=== PATIENT | male | born 1965 | race Caucasian/White ===

== ENCOUNTER → 2017-08-26 15:29 | Outpatient (CLI) | payer OTHER, SELFPAY ==
[2017-08-26 16:45] LABS: PSA,Total - Annual Screen 1.17 ng/mL (0.00-4.00)
== END ==
PROVIDERS: Family Provider Family Medicine; PCP Family Medicine; Visit Provider Urology
DX: Z12.5 Encounter for screening for malignant neoplasm of prostate (principal)
CPT/HCPCS: 36415; 84153; G0103

== ENCOUNTER 2017-10-06 14:12 | Emergency (ER) | payer OTHER, SELFPAY ==
[2017-10-06] VITALS (8 sets, daily range): BP systolic 131–157; BP diastolic 61–88; PULSE 59–76; RESP 15–21; TEMP 36.7; O2SAT 95–98; BMI 24.8
--- NOTE | 2017-10-06 14:24 | EKG12_ITS ---
Test Reason : REPEAT Blood Pressure : / mmHG Vent. Rate : 063 BPM Atrial Rate : 063 BPM P-R Int : 132 ms QRS Dur : 084 ms QT Int : 398 ms P-R-T Axes : 033 025 028 degrees QTc Int : 407 ms Normal sinus rhythm Normal ECG Confirmed by MARKEL KUHN MD ([id number]), news editor PUSHPA GONZALEZ ([id number]) on 10/09/2017 4:03:53 PM Referred By: YESSICA Confirmed By:MARKEL KUHN MD
--- NOTE | 2017-10-06 14:37 | RAD_ITS ---
STUDY: X-RAY CHEST REASON FOR EXAM: Male, 52 years old. Chest pain and pressure TECHNIQUE: PA and lateral views of the chest. COMPARISON: None. FINDINGS: The lungs are clear and expanded. There is no demonstrated pleural abnormality. Normal size heart. Normal mediastinum and gianna. Normal visualized pulmonary arteries. Normal visualized aortic arch and descending thoracic aorta. Normal visualized thoracic spine. Normal visualized ribs, clavicles, and shoulders. There is no demonstrated abnormality of the visualized soft tissue structures of the upper abdomen. RAD/Chest PA and Lateral IMPRESSION: Normal x-ray examination of the chest. Electronically Signed: Trudi Rodríguez MD at 14:59 EDT Tel , Service support ,
--- NOTE | 2017-10-06 14:42 | ED.DCSUM_ITS ---
- ER Visit Summary Date of Service: 10/06/17 Chief Complaint: [] Chest pain History of Present Illness: The patient is a 52 M [] complaining of chest pain in the midsternal area starting approximately 5 hours ago. Reports symptoms started when he was eating breakfast. Reports feeling bubble sensation in his chest. Denies shortness of breath. Denies abdominal pain. Denies nausea/ vomiting. Denies diaphoresis. Physical Examination: [] Afebrile, vital signs stable. 52-year-old male in no acute distress. Conversational. Cardiovascular exam is regular rate and rhythm. Lungs are clear to auscultation. Abdomen is soft and nontender. No lower extremity edema. Test Results: [] EKG shows normal sinus rhythm rate of 66 without ischemic changes or ectopy. CBC, BMP, troponin #1 negative. #2 negative. EKG #2 shows normal sinus rhythm, rate of 63 without ischemia or ectopy. Chest x-ray: Negative. Emergency Department Course and Treatment: [] The patient was evaluated for atypical symptoms of chest pain. Initial testing was negative. Patient reports his symptoms started 5 hours prior to arrival. He has been here now approximately 3 and half hours. His first round and second round of evaluation were negative. 2 very normal-appearing EKGs. He represents low risk. His TAHIRA score is 0. Treatment Plan: [] Patient was instructed to follow-up with his primary care physician and coordinate an outpatient stress test. Disposition: [] Discharge, stable. Impression: [] Chest pain This note was generated with [employer] dictation software. It may contain incorrect words, spelling, and punctuation that were not noted in review of the chart prior to signing ED Disposition - Plan for ED Patient: Chief Complaint: Chest Other Referrals: Fredy Beth MD [Primary Care Provider] -
[2017-10-06 14:44] LABS: Absolute Neutrophil Count 7.8 X10^3/uL (2.0-7.7); Basophil# 0.02 X10^3/uL; Basophil% 0.2 % (0-1); Eosinophil# 0.04 X10^3/uL; Eosinophils% 0.4 % (0-5); Hematocrit 42.2 % (40-54); Hemoglobin 14.1 g/dl (13.0-16.5); Lymphocyte % 12.7 % (19-41); Mean Corp Hgb Conc 33.4 g/gl (32-36); Mean Corpuscular Hgb 32.6 pg (27.0-32.0); Mean Corpuscular Volume 97.5 fL (80-94); Mean Platelet Vol. 8.8 fl (6.2-12.0); Monocyte# 0.33 X10^3/uL; Monocyte% 3.5 % (0-10); Neutrophil # 7.81 X10^3/uL (2.7-7.7); POSITIVE COUNT NO; POSITIVE DIFFERENTIAL NO; POSITIVE MORPHOLOGY NO; Platelet Count 262 K/mm3 (150-450); RBC Distribution Width CV 12.5 % (11.6-14.6); RBC Distribution Width SD 44.9 fl (35.1-43.9); Red Blood Count 4.33 M/mm3 (4.6-6.2); White Blood Count 9.4 K/mm3 (4.4-11.0)
[2017-10-06 14:52] LABS: D-Dimer Quantitative (DVT/PE) 0.35 FEU/ug/m (0.27-0.49)
[2017-10-06 15:07] LABS: Anion Gap 6 (5-15); BUN 13 mg/dL (7-18); BUN/Creat Ratio 15.3 RATIO (10-20); Calcium,Total 8.3 mg/dL (8.5-10.1); Chloride 111 mmol/L (98-107); Creatinine, Serum 0.85 mg/dL (0.70-1.30); EST Glomerular Filtration Rate 100 mL/min (>60); Est Glom Filt Rate - Afr Amer 121 mL/min (>60); Estimated Creatinine Clearance 110.31 ml/min; Glucose 150 mg/dL (74-106); Sodium Level 144 mmol/L (136-145)
[2017-10-06] MEDS: Aspirin 81 MG TAB.CHEW 324 MG PO (15:11)
--- NOTE | 2017-10-06 15:54 | EKG12_ITS ---
Test Reason : CHEST DISCOMFORT Blood Pressure : / mmHG Vent. Rate : 066 BPM Atrial Rate : 066 BPM P-R Int : 132 ms QRS Dur : 084 ms QT Int : 390 ms P-R-T Axes : 038 039 036 degrees QTc Int : 408 ms Normal sinus rhythm Normal ECG Confirmed by MARKEL KUHN MD ([id number]), editorial specialist PUSHPA GONZALEZ ([id number]) on 10/09/2017 4:03:35 PM Referred By: Confirmed By:MARKEL KUHN MD
--- NOTE | 2017-10-06 17:08 | ED.DEP ---
ED Disposition - Plan for ED Patient: Disposition: Home or Assisted Living Chief Complaint: Chest Other Instructions: ED Chest Pain Atypical Unkn Cause Referrals: Fredy Beth MD [Primary Care Provider] -
== END 2017-10-06 17:18 | disposition home or self-care (01) ==
PROVIDERS: Emergency Provider Emergency Medicine; Family Provider Family Medicine; PCP Family Medicine
DX: R07.89 Other chest pain (principal); I10 Essential (primary) hypertension; J45.909 Unspecified asthma, uncomplicated
CPT/HCPCS: 71046; 80048; 84484; 85025; 85379; 93005; 99284; A4216

== ENCOUNTER 2017-10-07 11:52 | Emergency (ER) | payer OTHER, SELFPAY ==
[2017-10-07 11:54] VITALS: BP 77/34; PULSE 105; RESP 18; TEMP 35.8; O2SAT 90; BMI 26.5
[2017-10-07 12:03] VITALS: BP 91/78; PULSE 91; RESP 23; O2SAT 100
--- NOTE | 2017-10-07 12:05 | EKG12_ITS ---
Test Reason : Blood Pressure : / mmHG Vent. Rate : 109 BPM Atrial Rate : 109 BPM P-R Int : 126 ms QRS Dur : 076 ms QT Int : 346 ms P-R-T Axes : 035 068 061 degrees QTc Int : 465 ms Sinus tachycardia Otherwise normal ECG Confirmed by BAM NAQVI, MARKEL ([id number]), editorial cartoonist PUSHPA GONZALEZ ([id number]) on 10/09/2017 3:25:16 PM Referred By: AUBREE Confirmed By:MARKEL KUHN MD
--- NOTE | 2017-10-07 12:06 | CT_ITS ---
STUDY: CTA CHEST REASON FOR EXAM: Male, 52 years old. One day history of chest pain. Dizziness and diaphoresis. RADIATION DOSAGE (If Supplied By Facility): CTDIvol = ( 15.08 ) mGy, DLP = ( 782.37 ) mGycm TECHNIQUE: The examination was performed with the intravenous administration of 100CC ml of Isovue 370 contrast material. Post-processing of the angiographic images was performed, with multiplanar reformation and 3D reconstruction. Individualized dose optimization techniques were used for this CT. COMPARISON: None. FINDINGS: Normal enhancement of the main pulmonary artery and right and left pulmonary arteries. Normal enhancement of the bilateral peripheral pulmonary arteries. There is no demonstrated pulmonary embolism. There is evidence of a localized focal dissection involving the medial aspect of the aortic arch just distal to its origin. This extends posteriorly to the level of the aortopulmonary window. The vessels arising from the aortic arch are unremarkable. There is evidence of a increased soft tissue density in the mediastinal fat surrounding the aortic arch as well as the descending thoracic aorta. Soft tissue density is also seen within the posterior mediastinum displacing the left atrium suggestive of a hematoma. Small left pleural effusion. Moderate sized hemopericardium. Normal mediastinum. Normal hilar regions. Normal visualized trachea and bronchi. There is a large right pleural effusion with increased density. This most likely represents a right sided hemopneumothorax. Atelectasis at the lung bases. Normal chest wall structures. Normal osseous structures. Retroperitoneal hematoma. IMPRESSION: Focal dissection and/or tear at the level of the aortic arch just distal to the origin of the great vessels of the neck with evidence of a hemopericardium, large right hemopneumothorax. Hematoma is seen within the mediastinum especially posteriorly causing displacement of the left atrium. Electronically Signed: Beck Nuñez MD at 13:06 EDT Tel [phone], Service support , STUDY: CTA OF THE ABDOMINAL AORTA REASON FOR EXAM: Male, 52 years old. Possible dissection. RADIATION DOSAGE (If Supplied By Facility): CTDIvol = ( 15.08 ) mGy, DLP = ( 782.37 ) mGycm TECHNIQUE: Axial CT angiography multi-detector data acquisition was obtained from the to the following intravenous administration of 100CC ml of Isovue 370 contrast. Axial images and MIP images were reconstructed from the axial data set. Post-processing of the angiographic images was performed, with multiplanar reformation and 3D reconstruction. Individualized dose optimization techniques were used for this CT. TECHNICAL QUALITY: Good COMPARISON: None. Descriptors of Narrowing: None (0%) Mild (< 50%) Moderate (50-70%) Severe (70-90%) Subtotal/Total Occlusion (90-100%) Non-Evaluable (technically non-diagnostic FINDINGS: Left pneumothorax. Pericardial effusion. Soft tissue density in the posterior mediastinum with displacement of the left atrium. Retrocrural hematoma was on the right side. Abdominal aorta: No demonstrated narrowing. No evidence of dissection. Celiac and superior mesenteric arteries: No demonstrated narrowing. Inferior mesenteric artery: No demonstrated narrowing. Right renal artery(arteries): No demonstrated narrowing. Left renal artery(arteries): No demonstrated narrowing. CT/CTA Chest W/WO Contrast IMPRESSION: No evidence of a aortic dissection.. Electronically Signed: Beck Nuñez MD at 12:53 EDT Tel [phone], Service support ,
--- NOTE | 2017-10-07 12:06 | CT_ITS ---
STUDY: CTA CHEST REASON FOR EXAM: Male, 52 years old. One day history of chest pain. Dizziness and diaphoresis. RADIATION DOSAGE (If Supplied By Facility): CTDIvol = ( 15.08 ) mGy, DLP = ( 782.37 ) mGycm TECHNIQUE: The examination was performed with the intravenous administration of 100CC ml of Isovue 370 contrast material. Post-processing of the angiographic images was performed, with multiplanar reformation and 3D reconstruction. Individualized dose optimization techniques were used for this CT. COMPARISON: None. FINDINGS: Normal enhancement of the main pulmonary artery and right and left pulmonary arteries. Normal enhancement of the bilateral peripheral pulmonary arteries. There is no demonstrated pulmonary embolism. There is evidence of a localized focal dissection involving the medial aspect of the aortic arch just distal to its origin. This extends posteriorly to the level of the aortopulmonary window. The vessels arising from the aortic arch are unremarkable. There is evidence of a increased soft tissue density in the mediastinal fat surrounding the aortic arch as well as the descending thoracic aorta. Soft tissue density is also seen within the posterior mediastinum displacing the left atrium suggestive of a hematoma. Small left pleural effusion. Moderate sized hemopericardium. Normal mediastinum. Normal hilar regions. Normal visualized trachea and bronchi. There is a large right pleural effusion with increased density. This most likely represents a right sided hemopneumothorax. Atelectasis at the lung bases. Normal chest wall structures. Normal osseous structures. Retroperitoneal hematoma. IMPRESSION: Focal dissection and/or tear at the level of the aortic arch just distal to the origin of the great vessels of the neck with evidence of a hemopericardium, large right hemopneumothorax. Hematoma is seen within the mediastinum especially posteriorly causing displacement of the left atrium. Electronically Signed: Beck Nuñez MD at 13:06 EDT Tel [phone], Service support , STUDY: CTA OF THE ABDOMINAL AORTA REASON FOR EXAM: Male, 52 years old. Possible dissection. RADIATION DOSAGE (If Supplied By Facility): CTDIvol = ( 15.08 ) mGy, DLP = ( 782.37 ) mGycm TECHNIQUE: Axial CT angiography multi-detector data acquisition was obtained from the to the following intravenous administration of 100CC ml of Isovue 370 contrast. Axial images and MIP images were reconstructed from the axial data set. Post-processing of the angiographic images was performed, with multiplanar reformation and 3D reconstruction. Individualized dose optimization techniques were used for this CT. TECHNICAL QUALITY: Good COMPARISON: None. Descriptors of Narrowing: None (0%) Mild (< 50%) Moderate (50-70%) Severe (70-90%) Subtotal/Total Occlusion (90-100%) Non-Evaluable (technically non-diagnostic FINDINGS: Left pneumothorax. Pericardial effusion. Soft tissue density in the posterior mediastinum with displacement of the left atrium. Retrocrural hematoma was on the right side. Abdominal aorta: No demonstrated narrowing. No evidence of dissection. Celiac and superior mesenteric arteries: No demonstrated narrowing. Inferior mesenteric artery: No demonstrated narrowing. Right renal artery(arteries): No demonstrated narrowing. Left renal artery(arteries): No demonstrated narrowing. CT/CTA Abdomen W/WO Contrast IMPRESSION: No evidence of a aortic dissection.. Electronically Signed: Beck Nuñez MD at 12:53 EDT Tel [phone], Service support ,
[2017-10-07] MEDS: 0.9% Normal Saline 1,000 ML 1000 ML IV (12:07)
[2017-10-07 12:10] VITALS: O2SAT 100
[2017-10-07] MEDS: Aspirin 81 MG TAB.CHEW 324 MG PO (12:25)
--- NOTE | 2017-10-07 12:25 | RAD_ITS ---
STUDY: X-RAY CHEST REASON FOR EXAM: Male, 52 years old. Chest pain. TECHNIQUE: Single AP portable view of the chest. COMPARISON: None. FINDINGS: EKG electrodes are seen. Small right pleural effusion with underlying infiltration and/or atelectasis. Increased markings at the left lung base. Normal size heart. Normal mediastinum and gianna. Normal visualized pulmonary arteries. Irregularity of the aortic knob. Normal visualized thoracic spine. Normal visualized ribs, clavicles, and shoulders. There is no demonstrated abnormality of the visualized soft tissue structures of the upper abdomen. RAD/Chest 1 View (Portable) IMPRESSION: Small right pleural effusion with bibasilar atelectasis. Blunting of the left prosthetic angle. Irregularity of the aortic knob. Electronically Signed: Beck Nuñez MD at 12:56 EDT Tel [phone], Service support ,
[2017-10-07 12:26] LABS: Absolute Lymphocyte Count 1.78 X10^3/ul (0.83-4.51); Absolute Neutrophil Count 4.9 X10^3/uL (2.0-7.7); Basophil# 0.02 X10^3/uL; Basophil% 0.3 % (0-1); Eosinophil# 0.07 X10^3/uL; Eosinophils% 0.9 % (0-5); Hematocrit 34.2 % (40-54); Hemoglobin 11.2 g/dl (13.0-16.5); Lymphocyte # 1.78 X10^3/ul (4.0); Mean Corp Hgb Conc 32.7 g/gl (32-36); Mean Corpuscular Hgb 32.4 pg (27.0-32.0); Mean Corpuscular Volume 98.8 fL (80-94); Mean Platelet Vol. 8.9 fl (6.2-12.0); Monocyte# 0.62 X10^3/uL; Monocyte% 8.4 % (0-10); Neutrophil # 4.89 X10^3/uL (2.7-7.7); Platelet Count 323 K/mm3 (150-450); RBC Distribution Width CV 12.9 % (11.6-14.6); RBC Distribution Width SD 46.2 fl (35.1-43.9); Red Blood Count 3.46 M/mm3 (4.6-6.2); White Blood Count 7.4 K/mm3 (4.4-11.0)
[2017-10-07 12:33] LABS: POSITIVE COUNT NO; POSITIVE DIFFERENTIAL NO; POSITIVE MORPHOLOGY NO
[2017-10-07 12:37] LABS: Anion Gap 13 (5-15); BUN 12 mg/dL (7-18); BUN/Creat Ratio 9.7 RATIO (10-20); Calcium,Total 7.5 mg/dL (8.5-10.1); Chloride 105 mmol/L (98-107); Creatinine, Serum 1.24 mg/dL (0.70-1.30); EST Glomerular Filtration Rate 65 mL/min (>60); Est Glom Filt Rate - Afr Amer 78 mL/min (>60); Estimated Creatinine Clearance 75.62 ml/min; Glucose 268 mg/dL (74-106); Potassium 3.5 mmol/L (3.5-5.1); Sodium Level 141 mmol/L (136-145)
--- NOTE | 2017-10-07 12:53 | ED.VISSUMM ---
- ER Visit Summary Date of Service: 10/07/17 Chief Complaint: [Chest pain History of Present Illness: The patient is a 52 M [presents to the emergency department with chest pain that started yesterday around 10 AM. Patient describes sudden onset of pain yesterday that kind of radiated down into his lower back and abdomen. Patient states the pain never resolved. Patient states that he was seen in the emergency department and worked up yesterday and discharged to home. The pain never resolved but began feeling lightheaded and feeling like he was going to pass out. Patient presents via EMS. Patient has a history of hypertension. No family history of Marfan's or aortic aneurysms. Patient describes the pain as mild at this time however he just feels very lightheaded and dizzy.] Physical Examination: [HEENT-PERRLA, EOMI. Cranial nerves II through XII grossly intact. TMs clear. Mucous membranes moist. No adenopathy. Cardiovascular-regular rate and rhythm without murmur or ectopy Lungs-clear to auscultation, chest wall stable without crepitus or subcu emphysema Abdomen-normoactive bowel sounds, soft, nontender, no rebound or rigidity, no peritoneal signs. Extremities-intact ?4, normal range of motion, normal pulses, atraumatic] Test Results: [EKG obtained showed sinus tachycardia with a ventricular rate of 109 bpm with no acute ST segment changes. CBC with differential showed a white count of 7.4, hemoglobin 11, hematocrit 34, platelets 323. Chemistries were unremarkable. Glucose was elevated to 68. Troponin was less than 0.02. CT scan of the abdomen and chest with IV contrast was read by radiology as a aortic dissection of the arch of the aorta distal to the great vessels of the neck. Patient was noted to have blood in the mediastinum in the right pleural space.] Emergency Department Course and Treatment: [Patient would prefer to be transferred to [facility]. We will make arrangements for transfer via helicopter. Patient was typed and screened in the emergency department and was given IV fluids.] Treatment Plan: [Transfer to [facility]] Disposition: [Transfer] Impression: [Aortic dissection] This note was generated with [email or web address] dictation software. It may contain incorrect words, spelling, and punctuation that were not noted in review of the chart prior to signing ED Disposition - Plan for ED Patient: Chief Complaint: Chest Pain Referrals: Elderbrock,Fredy, MD [Primary Care Provider] -
[2017-10-07 13:06] VITALS: BP 103/54; PULSE 103; RESP 16; O2SAT 97
[2017-10-07 13:24] VITALS: BP 96/46; PULSE 104; RESP 20; O2SAT 96
== END 2017-10-07 13:25 | disposition short-term general hospital (02) ==
LOC: ED 12:46
PROVIDERS: Emergency Medicine; Emergency Provider Emergency Medicine; Family Provider Family Medicine; PCP Family Medicine
DX: I71.00 Dissection of unspecified site of aorta (principal); I10 Essential (primary) hypertension; R73.09 Other abnormal glucose; R00.0 Tachycardia, unspecified; Z79.899 Other long term (current) drug therapy
CPT/HCPCS: 71045; 71275; 74175; 80048; 84484; 85025; 86850; 86900; 93005; 96360; 99285; Q9967; A4216

== ENCOUNTER 2018-02-07 16:00 | Inpatient (IN) | payer OTHER, SELFPAY ==
[2018-02-07 16:20] VITALS: BMI 18.1; BMI 18.2
--- NOTE | 2018-02-07 16:37 | NURSING ---
Pt arrived at 16:00 via cot from [facility]
[2018-02-07 17:03] VITALS: BP 130/72; PULSE 69; RESP 20; TEMP 37.3; O2SAT 94
[2018-02-07 17:25] LABS: Bedside Glucose 110 mg/dL (70-110)
--- NOTE | 2018-02-07 17:29 | HP.PCM_ITS ---
Problem List (1) Aortic dissection Status: Acute (2) Acute right MCA stroke Status: Acute (3) Left hemiplegia Status: Acute (4) Acute kidney injury Status: Acute (5) Kidney stones Status: Chronic (6) Hypertension Status: Chronic (7) Asthma Status: Chronic (8) Seizure disorder Status: Acute (9) Dysphagia Status: Acute (10) Vocal cord paralysis Status: Acute (11) Depression Status: Chronic History of Present Illness Date of Admission: 02/07/18 Chief Complaint: Here for rehabilitation, strengthening, prior to discharge to [facility] for surgery. The patient is a 52 year old Male with below past medical history with following : 10/07/2017 patient suffered aortic dissection which was surgically repaired. Post-operatively he suffered a right middle cerebral stroke requiring decompression craniotomy 10/13/2017. He has residual left hemiplegia. 01/16/2018 Patient developed cough, fever, respiratory failure secondary to H. Flu, and aspiration pneumonia. Intubated. 01/18/2018 Patient extubated. 01/31/2018 Transferred out of MICU. Swallow study showed high risk of aspiration, NPO. Tubefeeding via right nasal corpak. Patient suffered vocal cord paralysis. 02/20/2018 Admit to [facility] for vocal cord repair per ENT, and plate placement in head. 02/07/2018 Admit to TCU with debility, here for rehabilitation, strengthening, until surgery, then possible return to continue therapy. Past Medical History Past Medical History (Chronic Problems): Chronic Problems (This Medical Record has been edited. Action required.) Kidney stones (Chronic) Hypertension (Chronic) Asthma (Chronic) Depression (Chronic) Allergies cat dander Allergy (Verified 02/07/18 17:19) Unknown grass pollen Allergy (Verified 02/07/18 17:19) Itching Home Medications: Ambulatory Orders Medication Instructions Recorded Albuterol Sulfate [Proair Hfa] 1 puff INHALATION BID PRN 04/01/15 Fluticasone 110 Mcg [Flovent (SP)] 2 puff INHALATION BID 04/01/15 Lisinopril [Zestril] 5 mg PO DAILY 04/08/15 Albuterol IH (ProAir) [Proair Hfa 2 puff INHALATION Q6H PRN PRN 10/07/17 (SP)Vent Pts] Budesonide/Formoterol 80-4.5 2 puff INHALATION BID 10/07/17 [Symbicort 80-4.5 Mcg Inhaler] Lisinopril [Zestril] 5 mg PO DAILY 10/07/17 Surgical History: herniorrhaphy - Inguinal., - - Aortic dissection repair 2017, Craniotomy 10/13/2017, Lithotripsy, Left ankle ORIF, Left wrist ORIF, Bilateral heel spur removal, Traceostomy. Psychiatric History: Anxiety, Depression Lives: Spouse/ Significant Other Smoking Status: Former smoker Tobacco Use: Non-smoker Alcohol: Occasional Drugs: None - *Family History Maternal History Items: No pertinent history Paternal History Items: No pertinent history Review of Systems Constitutional: Denies: Chills, Fever, Weight Change HEENT: Denies: Head Aches, Sinus Congestion, Sinus Drainage Cardiovascular: Denies: Chest Pain, Palpitations Respiratory: Denies: Cough, Shortness of breath at rest, Sputum production Gastrointestinal: Denies: Abdominal Pain, Nausea, Vomiting Genitourinary: Denies: Dysuria Musculoskeletal: Denies: Joint Pain, Joint Tenderness Skin: Denies: Rash, Wounds Neurological: Denies: Numbness, Tingling, Focal weakness Psychiatric: Denies: Anxiety, Depression, Homicidal Ideations, Suicidal Ideations Hematologic/ Lymphatic: Denies: Easy Bruising, Easy Bleeding VTE Information - Inpt Only VTE Present on Admission: No VTE Mechan Device Prophylaxis: Knee High NITESH Hose VTE Pharm Prophylaxis ordered?: Yes Patient Problems: Active and Suspected Problems (This Medical Record has been edited. Action required.) Aortic dissection (Acute) Acute right MCA stroke (Acute) Left hemiplegia (Acute) Acute kidney injury (Acute) Seizure disorder (Acute) Dysphagia (Acute) Vocal cord paralysis (Acute) - Physical Exam General: Alert, Oriented x3, Cooperative HEENT: Atraumatic, PERRLA, EOMI, Normocephalic, - - Right nares Corpak. Neck: Supple, No JVD, Negative Carotid Bruits Lungs: Clear to auscultation, Normal air movement Cardiovascular: Regular rate, No murmurs Abdomen: Bowel Sounds Present, Soft, Non Tender Extremities: No edema, Capillary Refill Less than 3 Seconds Skin: No rashes, No breakdown Musculoskeletal: No Tenderness to Palpation of Joints or Extremities Neurological: Cranial nerves II-XII grossly intact, - - Dense left hemiplegia. Psych/Mental Status: Normal Affect, Appropriate Vital Signs Temp Pulse Resp BP Pulse Ox 99.1 F 69 20 H 130/72 H 94 02/07/18 17:03 02/07/18 17:03 02/07/18 17:03 02/07/18 17:03 02/07/18 17:03 Oxygen Delivery Method Room Air Weight: 122.271 kg POC Glucose 02/07/18 17:16 POC Glucose 110 Assessment/Plan All Active Problems (This Medical Record has been edited. Action required.) Aortic dissection (Acute) Acute right MCA stroke (Acute) Left hemiplegia (Acute) Acute kidney injury (Acute) Seizure disorder (Acute) Dysphagia (Acute) Vocal cord paralysis (Acute) 52 year old male with below past medical history significant for aortic dissection, right MCA stroke requiring craniotomy, hospitalized for H. Flu/ aspiration pneumonia, admitted to TCU with debility, here for rehabilitation, strengthening, prior to discharge to [facility] 02/20/2018 for vocal cord repair, plate placement in head. * Debility - PT/OT. * Dysphagia - ST. * Pain - Tylenol 650MG Q6H PRN mild pain. * Bowel - Colace 100MG BID, Miralax 17GM daily, Mineral Oil 1 bottle IN daily. * Pneumonia vaccination - Administer Prevnar 13 and/or Pneumovax 23 as necessary. * DVT prophylaxis - Lovenox 40MG SC daily. * Muscle spasm - Baclofen 10MG TID. * Anxiety - Buspar 10MG BID. * Skin irritation - Eucerin BID bilateral heels/legs, Calmoseptine BID bilateral buttocks. * GERD - Famotidine 40MG daily, Sodium bicarbonate 325MG daily PRN. * Asthma - Advair 1 puff Q12H, Duoneb 3ML Q4H PRN, Mucomyst 400MG Q6H. * Seizure disorder - Vimpat 200MG BID. * Allergic Rhinitis - Loratadine 10MG daily. * Anxiety - Ativan 0.5MG Q6H PRN. * Insomnia - Melatonin 3MG QHS. * Hypertension - Metoprolol 25MG BID. * Nausea - Zofran ODT 8MG Q8H PRN. * Nutrition - Osmolite 1.2 75cc/hour via Corpak. * Behavioral problem secondary to stroke - Seroquel 25MG QHS, Gradual dose reduction to 12.5MG in 1 week. * Depression - Venlafaxine 75MG BID.
[2018-02-07 17:51] VITALS: BP 103/72; PULSE 69; RESP 20; TEMP 37.3; O2SAT 94
[2018-02-07 19:30] VITALS: PULSE 72; RESP 18
[2018-02-07] MEDS: Acetylcysteine 800 MG/4 ML VIAL.NEB. 400 MG INHALATION (19:30)
--- NOTE | 2018-02-07 20:42 | NURSING ---
Addendum entered by Irma Encarnacion 02/07/18 21:22: Dr Puga made aware of SOB. N.O. entered. Original Note: pt c/o has trouble breathing after breathing tx. SPo2 93% Rm air, P-83, Bp 112/77, no s/sx of SOB, normal labor communicated with SAVANA Saldaña.
[2018-02-07] MEDS: QUEtiapine 25 MG Tablet NG (21:11)
[2018-02-07] MEDS: Baclofen 10 MG Tablet NG (21:12)
[2018-02-07 21:13] VITALS: PULSE 83
[2018-02-07] MEDS: Metoprolol Tartrate 25 MG Tablet NG (21:13)
[2018-02-07] MEDS: Venlafaxine HCl 75 MG Tablet NG (21:15)
[2018-02-07] MEDS: LORazepam 0.5 MG Tablet NG (23:01)
[2018-02-08] MEDS: busPIRone 5 MG Tablet 10 MG NG ×3 (00:27→17:20)
[2018-02-08] MEDS: MELATONIN 3 MG TABLET NG ×2 (00:27→22:41)
[2018-02-08] MEDS: Docusate Sodium 100 MG/10 ML UDC NG (00:28)
[2018-02-08] MEDS: Lacosamide Solution 100 MG/10 ML UDC 200 MG PO ×3 (00:29→07:32)
[2018-02-08] MEDS: Senna Tablet 1 TABLET NG ×2 (00:37→07:33)
--- NOTE | 2018-02-08 04:02 | NURSING ---
code status discussed with pt at this time. wishes to be full code.
[2018-02-08 07:00] LABS: Bedside Glucose 139 mg/dL (70-110)
[2018-02-08 07:28] LABS: Absolute Lymphocyte Count 1.52 X10^3/ul (0.83-4.51); Absolute Neutrophil Count 9.6 X10^3/uL (2.0-7.7); Basophil# 0.04 X10^3/uL; Basophil% 0.3 % (0-1); Eosinophil# 0.33 X10^3/uL; Eosinophils% 2.7 % (0-5); Hematocrit 38.9 % (40-54); Hemoglobin 12.6 g/dl (13.0-16.5); Lymphocyte # 1.52 X10^3/ul (4.0); Lymphocyte % 12.3 % (19-41); Mean Corp Hgb Conc 32.4 g/gl (32-36); Mean Corpuscular Hgb 31.3 pg (27.0-32.0); Mean Corpuscular Volume 96.8 fL (80-94); Mean Platelet Vol. 9.3 fl (6.2-12.0); Monocyte% 6.5 % (0-10); Neutrophil # 9.62 X10^3/uL (2.7-7.7); Neutrophil % 77.9 % (47-70); Platelet Count 269 K/mm3 (150-450); RBC Distribution Width CV 14.8 % (11.6-14.6); RBC Distribution Width SD 51.7 fl (35.1-43.9); Red Blood Count 4.02 M/mm3 (4.6-6.2); White Blood Count 12.4 K/mm3 (4.4-11.0)
[2018-02-08 07:33] VITALS: PULSE 80
[2018-02-08] MEDS: Metoprolol Tartrate 25 MG Tablet NG ×2 (07:33→17:20)
[2018-02-08] MEDS: Venlafaxine HCl 75 MG Tablet NG ×2 (07:33→17:20)
[2018-02-08] MEDS: Famotidine 20 MG Tablet 40 MG NG (07:34)
[2018-02-08 07:35] LABS: Anion Gap 9 (5-15); BUN 20 mg/dL (7-18); BUN/Creat Ratio 34.3 RATIO (10-20); Calcium,Total 8.8 mg/dL (8.5-10.1); Chloride 103 mmol/L (98-107); Creatinine, Serum 0.58 mg/dL (0.70-1.30); EST Glomerular Filtration Rate 155 mL/min (>60); Est Glom Filt Rate - Afr Amer 187 mL/min (>60); Estimated Creatinine Clearance 126.63 ml/min; Glucose 102 mg/dL (74-106); Potassium 4.1 mmol/L (3.5-5.1); Sodium Level 143 mmol/L (136-145)
[2018-02-08] MEDS: Baclofen 10 MG Tablet NG ×3 (07:35→22:41)
[2018-02-08] MEDS: Loratadine 10 MG Tablet NG (07:35)
[2018-02-08] MEDS: Menthol/Lanolin/Calamine/Znox 113 GM Tube 1 APPLIC TOPICAL ×2 (07:36→22:43)
[2018-02-08 07:50] LABS: POSITIVE COUNT NO; POSITIVE DIFFERENTIAL NO; POSITIVE MORPHOLOGY NO
[2018-02-08 10:00] VITALS: PULSE 68; RESP 18; O2SAT 94
[2018-02-08 11:31] LABS: Bedside Glucose 110 mg/dL (70-110)
[2018-02-08] MEDS: Tuberculin,Purif.prot.deriv. 50 TU/ML Vial 5 ML ID (12:02)
--- NOTE | 2018-02-08 12:11 | NURSING ---
Pt NG tube leaking around seal, Pt cleaned up and gown changed. This nurse along with Myraim SAWANT and Amaury supervisior. changed the end of NG tube. connection is free from leaks at this time and running Per order.
--- NOTE | 2018-02-08 14:59 | NURSING ---
TURF KEEPER RECOMMENDING SWITCHING TO JEVITY 1.5 AT 60CC/HR WITH SAME FLUSHES, DC OSMOLITE.
[2018-02-08 15:25] VITALS: BP 113/79; PULSE 72; RESP 16; TEMP 36.3; O2SAT 96
[2018-02-08 16:55] LABS: Bedside Glucose 126 mg/dL (70-110)
[2018-02-08 17:20] VITALS: BP 113/79; PULSE 72
--- NOTE | 2018-02-08 17:33 | NURSING ---
Pt having large amouts of liquid diarrhea this shift, this nurse held laxative and stool softeners. Myriam SAWANT aware
[2018-02-08] MEDS: QUEtiapine 25 MG Tablet NG (22:49)
[2018-02-09 00:26] LABS: Bedside Glucose 109 mg/dL (70-110)
[2018-02-09] MEDS: Jevity 1.5 1,000 ML 60 ML NG ×2 (03:15→20:42)
[2018-02-09] MEDS: Menthol/Lanolin/Calamine/Znox 113 GM Tube 1 APPLIC TOPICAL ×2 (07:05→22:09)
[2018-02-09] MEDS: Loratadine 10 MG Tablet NG (07:07)
[2018-02-09] MEDS: Venlafaxine HCl 75 MG Tablet NG ×2 (07:07→17:30)
[2018-02-09] MEDS: Famotidine 20 MG Tablet 40 MG NG (07:07)
[2018-02-09] MEDS: busPIRone 5 MG Tablet 10 MG NG ×2 (07:07→17:29)
[2018-02-09] MEDS: Baclofen 10 MG Tablet NG ×3 (07:08→22:09)
[2018-02-09 07:09] VITALS: BP 121/79; PULSE 75
[2018-02-09] MEDS: Metoprolol Tartrate 25 MG Tablet NG ×2 (07:09→17:29)
[2018-02-09] MEDS: Enoxaparin 40 MG/0.4 ML Syringe SC (07:09)
--- NOTE | 2018-02-09 07:22 | NURSING ---
reported that pt with incont stools, bottom red, skin intact. michael applied. stool softeners changed to PRN
[2018-02-09] MEDS: Lacosamide Solution 100 MG/10 ML UDC 200 MG PO ×2 (07:25→17:34)
[2018-02-09 07:26] LABS: Bedside Glucose 121 mg/dL (70-110)
[2018-02-09 10:00] VITALS: PULSE 74; RESP 18; O2SAT 96
--- NOTE | 2018-02-09 10:47 | NURSING ---
Pt stating that Pt will have bone flap replaced February 21. she will confirm and then let staff know Saturday. Myriam SAWANT aware
[2018-02-09 11:40] LABS: Bedside Glucose 105 mg/dL (70-110)
[2018-02-09 15:53] VITALS: BP 113/80; PULSE 76; RESP 18; TEMP 36.7; O2SAT 94
[2018-02-09 17:15] LABS: Bedside Glucose 114 mg/dL (70-110)
[2018-02-09 17:29] VITALS: PULSE 76
[2018-02-09 20:10] VITALS: PULSE 83; RESP 18
[2018-02-09 21:26] LABS: Bedside Glucose 115 mg/dL (70-110)
[2018-02-09] MEDS: QUEtiapine 25 MG Tablet NG (22:09)
[2018-02-09] MEDS: MELATONIN 3 MG TABLET NG (22:09)
[2018-02-10 00:30] LABS: Bedside Glucose 121 mg/dL (70-110)
[2018-02-10 06:39] VITALS: BP 115/71; PULSE 67; RESP 16; O2SAT 97
[2018-02-10 06:40] VITALS: PULSE 67
[2018-02-10] MEDS: Famotidine 20 MG Tablet 40 MG NG (06:40)
[2018-02-10] MEDS: Metoprolol Tartrate 25 MG Tablet NG ×2 (06:40→16:57)
[2018-02-10] MEDS: Loratadine 10 MG Tablet NG (06:41)
[2018-02-10] MEDS: Lacosamide Solution 100 MG/10 ML UDC 200 MG PO (06:41)
[2018-02-10] MEDS: Baclofen 10 MG Tablet NG ×3 (06:41→21:37)
[2018-02-10] MEDS: busPIRone 5 MG Tablet 10 MG NG ×2 (06:41→16:58)
[2018-02-10] MEDS: Enoxaparin 40 MG/0.4 ML Syringe SC (06:41)
[2018-02-10] MEDS: Venlafaxine HCl 75 MG Tablet NG ×2 (06:41→16:58)
[2018-02-10] MEDS: Menthol/Lanolin/Calamine/Znox 113 GM Tube 1 APPLIC TOPICAL ×2 (07:00→21:36)
[2018-02-10 07:11] LABS: Bedside Glucose 105 mg/dL (70-110)
[2018-02-10 11:26] LABS: Bedside Glucose 125 mg/dL (70-110)
[2018-02-10] MEDS: Ipratropium/Albuterol Sulfate 3 ML AMPUL.NEB INHALATION (15:30)
[2018-02-10 15:31] VITALS: PULSE 68; RESP 18; O2SAT 95
[2018-02-10 15:38] VITALS: BP 102/60; PULSE 68; RESP 16; TEMP 36.5; O2SAT 96
--- NOTE | 2018-02-10 16:04 | CHAPLAIN ---
Type of Pastoral Visit _x__ Initial Visit ___ Follow-up Visit ___ On-call Visit ___ General Patient Visit ___ Spiritual Assessment ___ Family Conference ___ Bereavement ___ Rapid Response ___ Code Blue ___ Other (describe below) Pastoral Care Referral From _x__ Patient ___ Family ___ Nurse ___ Physician ___ Masonry Inspector ___ Assistant Store Manager Trainee ___ Other (describe below) Sacrament/Intervention _x__ Active listening ___ Anointing ___ Anglican ___ Bereavement ___ Communion ___ Sarah exploration ___ ___ Life review _x__ Prayer ___ Reconciliation ___ Sacrament of Sick ___ Supportive presence ___ Wedding ___ Other (describe below) Pastoral Comments patient said that he would be glad to have this commercial insulator come anytime to visit; this visit was a brief introductory time; spouse and daughter of pt is with him; pt admits that he gets some facts confused right now; pt said that he used to go to a specific [employer] in town but is looking for a different one when he gets discharged; therefore pt said that he would be further interested in future follow up from commercial insulator
[2018-02-10 16:57] VITALS: BP 102/60; PULSE 68
[2018-02-10] MEDS: Lacosamide Solution 100 MG/10 ML UDC 200 MG NG (16:58)
[2018-02-10] MEDS: Jevity 1.5 1,000 ML 60 ML NG (17:05)
[2018-02-10 17:15] LABS: Bedside Glucose 109 mg/dL (70-110)
[2018-02-10] MEDS: QUEtiapine 25 MG Tablet NG (21:37)
[2018-02-10] MEDS: MELATONIN 3 MG TABLET NG (21:37)
--- NOTE | 2018-02-10 21:51 | NURSING ---
Pt received all hs meds through NG tube, tolerated well with no complaints or pain or discomfort. Pt very pleasant, stating this is the best care he has received and he has been to 'many many places'. States only nice things about [facility] and staff. Pt washed up with help from Leila GOODE and this nurse. Repositioned for comfort. Reminded to call if assistance or anything needed, verbally agreeable to this. Call light hooked to blanket. Continuing to monitor.
[2018-02-11 00:16] LABS: Bedside Glucose 116 mg/dL (70-110)
[2018-02-11] MEDS: Lacosamide Solution 100 MG/10 ML UDC 200 MG NG ×2 (06:09→18:06)
[2018-02-11] MEDS: Menthol/Lanolin/Calamine/Znox 113 GM Tube 1 APPLIC TOPICAL ×2 (06:12→21:24)
[2018-02-11] MEDS: Baclofen 10 MG Tablet NG ×3 (06:12→21:25)
[2018-02-11] MEDS: Loratadine 10 MG Tablet NG (06:12)
[2018-02-11] MEDS: busPIRone 5 MG Tablet 10 MG NG ×2 (06:12→18:06)
[2018-02-11 06:13] VITALS: BP 106/62; PULSE 64
[2018-02-11] MEDS: Venlafaxine HCl 75 MG Tablet NG ×2 (06:13→18:06)
[2018-02-11] MEDS: Metoprolol Tartrate 25 MG Tablet NG ×2 (06:13→18:06)
[2018-02-11] MEDS: Enoxaparin 40 MG/0.4 ML Syringe SC (06:13)
[2018-02-11] MEDS: Famotidine 20 MG Tablet 40 MG NG (06:14)
[2018-02-11 07:06] LABS: Bedside Glucose 116 mg/dL (70-110)
[2018-02-11] MEDS: Acetaminophen 650 MG/20 ML UDC NG ×2 (07:40→18:16)
[2018-02-11] MEDS: Fluticasone/Salmeterol 232-14 Inhaler 1 PUFF IH ×2 (09:49→18:06)
[2018-02-11 10:21] VITALS: O2SAT 95
[2018-02-11 11:46] LABS: Bedside Glucose 117 mg/dL (70-110)
[2018-02-11] MEDS: Jevity 1.5 1,000 ML 60 ML NG ×2 (14:30→21:47)
--- NOTE | 2018-02-11 14:45 | NURSING ---
O RESIDUAL, NEW BOTTLE OF JEVITY AND TUBING HUNG. PT TOLERATED WELL. NO COMPLANTS.
[2018-02-11 15:57] VITALS: BP 107/73; PULSE 77; RESP 20; TEMP 36.9; O2SAT 99
[2018-02-11 17:11] LABS: Bedside Glucose 109 mg/dL (70-110)
[2018-02-11 18:06] VITALS: BP 107/73; PULSE 77
[2018-02-11 20:54] VITALS: PULSE 84; RESP 18; O2SAT 96
[2018-02-11] MEDS: MELATONIN 3 MG TABLET NG (21:25)
[2018-02-11] MEDS: QUEtiapine 25 MG Tablet NG (21:26)
[2018-02-12 00:26] LABS: Bedside Glucose 104 mg/dL (70-110)
[2018-02-12] MEDS: busPIRone 5 MG Tablet 10 MG NG (06:29)
[2018-02-12] MEDS: Loratadine 10 MG Tablet NG (06:30)
[2018-02-12] MEDS: Venlafaxine HCl 75 MG Tablet NG (06:30)
[2018-02-12] MEDS: Menthol/Lanolin/Calamine/Znox 113 GM Tube 1 APPLIC TOPICAL (06:30)
[2018-02-12 06:31] VITALS: PULSE 74
[2018-02-12] MEDS: Metoprolol Tartrate 25 MG Tablet NG (06:31)
[2018-02-12] MEDS: Enoxaparin 40 MG/0.4 ML Syringe SC (06:31)
[2018-02-12] MEDS: Baclofen 10 MG Tablet NG ×2 (06:31→14:42)
[2018-02-12] MEDS: Famotidine 20 MG Tablet 40 MG NG (06:31)
[2018-02-12] MEDS: Fluticasone/Salmeterol 232-14 Inhaler 1 PUFF IH (06:31)
[2018-02-12] MEDS: Lacosamide Solution 100 MG/10 ML UDC 200 MG NG (06:32)
[2018-02-12] MEDS: Acetaminophen 650 MG/20 ML UDC NG ×2 (06:32→15:23)
[2018-02-12 07:16] LABS: Bedside Glucose 106 mg/dL (70-110)
--- NOTE | 2018-02-12 07:24 | NURSING ---
All meds given through NG tube, per orders, pt tolerated well with no complaints or evidence of discomfort. Pt usual pleasant self. Asked this nurse when NG tube may be removed, understands there are no orders or specific dates at this time but it would be passed along. Pt content with this and understands it will likely be discussed at upcoming appointment(s). Pt said he is feeling better, stronger and is determined to get his strength back to walk daughter down the aisle at her upcoming wedding, in two months. Pt perks up when talking about this, and it is the reason why he has asked about NG removal. RN aware.
--- NOTE | 2018-02-12 08:20 | PCM.PN.RX ---
<DanniellealvaradogayeRu D - Last Filed: 02/12/18 08:20> Progress Note - Pharmacy Subjective: TCU Admission Objective: Allergies cat dander Allergy (Verified 02/07/18 17:19) Unknown grass pollen Allergy (Verified 02/07/18 17:19) Itching Current Medications Generic Name Dose Route Start Last Admin Trade Name Freq PRN Reason Stop Dose Admin Acetaminophen 650 mg 02/08/18 10:06 02/12/18 06:32 Tylenol Liquid NG 650 mg Q6H PRN PRN Administration MILD PAIN (1-310) Acetylcysteine 400 mg 02/09/18 15:11 Mucomyst INHALATION Q6H.RT PRN sob/wheezing Albuterol/Ipratropium 3 ml 02/07/18 16:55 02/10/18 15:30 Duoneb INHALATION 3 ml Q4H.RT PRN Administration SOB &/OR WHEEZING Baclofen 10 mg 02/07/18 22:00 02/12/18 06:31 Lioresal NG 10 mg TID ENIO Administration Buspirone HCl 10 mg 02/07/18 18:00 02/12/18 06:29 Buspar NG 10 mg BID ENIO Administration Calamine/Phenol 1 applic 02/08/18 06:00 02/12/18 06:30 Calmoseptine Ointment TOPICAL 1 applicatio 0600,2200 [facility] Administration Protocol Docusate Sodium 100 mg 02/09/18 07:21 Colace Syrup NG BID PRN Constipation Emollient Ointment 1 applic 02/08/18 06:00 02/12/18 06:30 Eucerin Intensive Repair TOPICAL 1 applicatio 0600,2200 [facility] Administration Protocol Enoxaparin Sodium 40 mg 02/09/18 06:00 02/12/18 06:31 Lovenox SC 40 mg DAILY@0600 [facility] Administration Famotidine 40 mg 02/08/18 06:00 02/12/18 06:31 Pepcid NG 40 mg DAILY ENIO Administration Enteral Nutritional Formula 1,000 mls @ 60 mls/hr 02/09/18 03:00 02/11/18 21:47 Jevity 1.5 NG 60 mls/hr .[id number] ENIO Administration Lacosamide 200 mg 02/10/18 18:00 02/12/18 06:32 Vimpat Solution NG 200 mg BID ENIO Administration Loratadine 10 mg 02/08/18 06:00 02/12/18 06:30 Claritin NG 10 mg DAILY ENIO Administration Lorazepam 0.5 mg 02/07/18 21:23 02/07/18 23:01 Ativan NG 0.5 mg Q6H PRN PRN Administration ANXIETY Melatonin 3 mg 02/07/18 22:00 02/11/18 21:25 Melatonin NG 3 mg QHS ENIO Administration Metoprolol Tartrate 25 mg 02/07/18 18:00 02/12/18 06:31 Lopressor (Beta Jose Juan) NG 25 mg BID ENIO Administration Mineral Oil 1 bottle 02/09/18 10:54 Mineral Oil RECTAL DAILY PRN Constipation Ondansetron HCl 8 mg 02/07/18 16:45 Zofran Odt NG Q8H PRN PRN NAUSEA/VOMITING Polyethylene Glycol 17 gm 02/09/18 07:22 Miralax GT DAILY PRN Constipation Quetiapine Fumarate 25 mg 02/07/18 22:00 02/11/18 21:26 Seroquel NG 02/14/18 23:59 25 mg QHS ENIO Administration Quetiapine Fumarate 12.5 mg 02/15/18 22:00 Seroquel NG QHS ENIO Fluticasone/Salmeterol 1 puff 02/08/18 06:00 02/12/18 06:31 Fluticasone-Salmeterol 232-14 IH 1 puff Q12 ENIO Administration Senna 1 tablet 02/09/18 07:22 Senokot NG BID PRN Constipation Sodium Bicarbonate 325 mg 02/07/18 16:48 Sodium Bicarbonate NG DAILY PRN PRN clogged enteral tube Tuberculin PPD 5 tu 02/15/18 10:00 Tubersol, Aplisol, Ppd ID 02/15/18 10:01 X1 ONE Venlafaxine HCl 75 mg 02/07/18 18:00 02/12/18 06:30 Effexor NG 75 mg BID ENIO Administration Problem List (This Medical Record has been edited. Action required.) Aortic dissection (Acute) Acute right MCA stroke (Acute) Left hemiplegia (Acute) Acute kidney injury (Acute) Kidney stones (Chronic) Hypertension (Chronic) Asthma (Chronic) Seizure disorder (Acute) Dysphagia (Acute) Vocal cord paralysis (Acute) Depression (Chronic) Vital Signs Temp Pulse Resp BP Pulse Ox 98.4 F 74 18 107/73 96 02/11/18 15:57 02/12/18 06:31 02/11/18 20:54 02/11/18 18:06 02/11/18 20:54 Oxygen Delivery Method Room Air Weight: 60.781 kg Body Mass Index (BMI) 18.1 Sodium 143 mmol/L (136-145) 02/08/18 06:15 Potassium 4.1 mmol/L (3.5-5.1) 02/08/18 06:15 Chloride 103 mmol/L (98-107) 02/08/18 06:15 Carbon Dioxide 31.0 mmol/L (21.0-32.0) 02/08/18 06:15 Anion Gap 9 (5-15) 02/08/18 06:15 BUN 20 mg/dL (7-18) H 02/08/18 06:15 Creatinine 0.58 mg/dL (0.70-1.30) L 02/08/18 06:15 Est GFR (MDRD) Af Amer 187 mL/min (>60) 02/08/18 06:15 Est GFR (MDRD) Non-Af 155 mL/min (>60) 02/08/18 06:15 BUN/Creatinine Ratio 34.3 RATIO (10-20) H 02/08/18 06:15 Glucose 102 mg/dL (74-106) 02/08/18 06:15 Assessment/Plan: 1) Pain APAP for mild pain, baclofen. Continue to monitor prn medication use, daily pain scores. 2) Pulm Acetylcysteine, Advair inh scheduled, Duoneb aerosols prn, loratadine. 3) HTN Metoprolol. Continue to monitor BP/HR. 4) Seizure Lacosamide. Continue to monitor for seizure. 5) DVT PPx Enoxaparin daily. Continue to monitor s/s bleeding/clot. 6) GI Famotidine, ondansetron as needed. Continue to monitor prn medication use, for GI distress. 7) Insomnia Melatonin at HS. Continue to monitor for insomnia. 8) Derm Calmoseptine, emollient. Continue to monitor clinically. Psychotropic Medications: 9) Depression/Anxiety Venlafaxine, buspirone, lorazepam as needed. Continue to monitor prn medication use, s/s depression. 10) Quetiapine GDR currently. Unnecessary Medications: None Bowel Regimen: 11) Senna prn, PEG prn, mineral oil prn, docusate prn. Continue to monitor prn medication use, for constipation/diarrhea. Date of Note:: 02/12/18 - Provider Comments Provider responsibility: Provider responsible to enter orders to implement recommendations <Luis Puga Chi - Last Filed: 02/12/18 18:01> Progress Note - Pharmacy Subjective: [] Objective: Allergies cat dander Allergy (Verified 02/07/18 17:19) Unknown grass pollen Allergy (Verified 02/07/18 17:19) Itching Current Medications Generic Name Dose Route Start Last Admin Trade Name Freq PRN Reason Stop Dose Admin Acetaminophen 650 mg 02/08/18 10:06 02/12/18 15:23 Tylenol Liquid NG 650 mg Q6H PRN PRN Administration MILD PAIN (1-3/10) Acetylcysteine 400 mg 02/09/18 15:11 Mucomyst INHALATION Q6H.RT PRN sob/wheezing Albuterol/Ipratropium 3 ml 02/07/18 16:55 02/10/18 15:30 Duoneb INHALATION 3 ml Q4H.RT PRN Administration SOB &/OR WHEEZING Baclofen 10 mg 02/07/18 22:00 02/12/18 14:42 Lioresal NG 10 mg TID ENIO Administration Buspirone HCl 10 mg 02/07/18 18:00 02/12/18 06:29 Buspar NG 10 mg BID ENIO Administration Calamine/Phenol 1 applic 02/08/18 06:00 02/12/18 06:30 Calmoseptine Ointment TOPICAL 1 applicatio 06,2200 [facility] Administration Protocol Docusate Sodium 100 mg 02/09/18 07:21 Colace Syrup NG BID PRN Constipation Emollient Ointment 1 applic 02/08/18 06:00 02/12/18 06:30 Eucerin Intensive Repair TOPICAL 1 applicatio 0600,2200 [facility] Administration Protocol Enoxaparin Sodium 40 mg 02/09/18 06:00 02/12/18 06:31 Lovenox SC 40 mg DAILY@0600 ENIO Administration Famotidine 40 mg 02/08/18 06:00 02/12/18 06:31 Pepcid NG 40 mg DAILY ENIO Administration Enteral Nutritional Formula 1,000 mls @ 60 mls/hr 02/09/18 03:00 02/12/18 14:36 Jevity 1.5 NG Not Given .[id number] [facility] Lacosamide 200 mg 02/10/18 18:00 02/12/18 06:32 Vimpat Solution NG 200 mg BID ENIO Administration Loratadine 10 mg 02/08/18 06:00 02/12/18 06:30 Claritin NG 10 mg DAILY ENIO Administration Lorazepam 0.5 mg 02/07/18 21:23 02/07/18 23:01 Ativan NG 0.5 mg Q6H PRN PRN Administration ANXIETY Melatonin 3 mg 02/07/18 22:00 02/11/18 21:25 Melatonin NG 3 mg QHS ENIO Administration Metoprolol Tartrate 25 mg 02/07/18 18:00 02/12/18 06:31 Lopressor (Beta Jose Juan) NG 25 mg BID ENIO Administration Mineral Oil 1 bottle 02/09/18 10:54 Mineral Oil RECTAL DAILY PRN Constipation Ondansetron HCl 8 mg 02/07/18 16:45 Zofran Odt NG Q8H PRN PRN NAUSEA/VOMITING Polyethylene Glycol 17 gm 02/09/18 07:22 Miralax GT DAILY PRN Constipation Quetiapine Fumarate 25 mg 02/07/18 22:00 02/11/18 21:26 Seroquel NG 02/14/18 23:59 25 mg QHS [facility] Administration Quetiapine Fumarate 12.5 mg 02/15/18 22:00 Seroquel NG QHS [facility] Fluticasone/Salmeterol 1 puff 02/08/18 06:00 02/12/18 06:31 Fluticasone-Salmeterol 232-14 IH 1 puff Q12 [facility] Administration Senna 1 tablet 02/09/18 07:22 Senokot NG BID PRN Constipation Sodium Bicarbonate 325 mg 02/07/18 16:48 Sodium Bicarbonate NG DAILY PRN PRN clogged enteral tube Tuberculin PPD 5 tu 02/15/18 10:00 Tubersol, Aplisol, Ppd ID 02/15/18 10:01 X1 ONE Venlafaxine HCl 75 mg 02/07/18 18:00 02/12/18 06:30 Effexor NG 75 mg BID ENIO Administration Problem List (This Medical Record has been edited. Action required.) Aortic dissection (Acute) Acute right MCA stroke (Acute) Left hemiplegia (Acute) Acute kidney injury (Acute) Kidney stones (Chronic) Hypertension (Chronic) Asthma (Chronic) Seizure disorder (Acute) Dysphagia (Acute) Vocal cord paralysis (Acute) Depression (Chronic) Vital Signs Temp Pulse Resp BP Pulse Ox 98.0 F 74 18 105/78 97 02/12/18 16:00 02/12/18 16:00 02/12/18 16:00 02/12/18 16:00 02/12/18 16:00 Oxygen Delivery Method Room Air Weight: 60.781 kg Body Mass Index (BMI) 18.1 Sodium 143 mmol/L (136-145) 02/08/18 06:15 Potassium 4.1 mmol/L (3.5-5.1) 02/08/18 06:15 Chloride 103 mmol/L (98-107) 02/08/18 06:15 Carbon Dioxide 31.0 mmol/L (21.0-32.0) 02/08/18 06:15 Anion Gap 9 (5-15) 02/08/18 06:15 BUN 20 mg/dL (7-18) H 02/08/18 06:15 Creatinine 0.58 mg/dL (0.70-1.30) L 02/08/18 06:15 Est GFR (MDRD) Af Amer 187 mL/min (>60) 02/08/18 06:15 Est GFR (MDRD) Non-Af 155 mL/min (>60) 02/08/18 06:15 BUN/Creatinine Ratio 34.3 RATIO (10-20) H 02/08/18 06:15 Glucose 102 mg/dL (74-106) 02/08/18 06:15 Assessment/Plan: Psychotropic Medications: Unnecessary Medications: Bowel Regimen: - Provider Comments Provider responsibility: Provider responsible to enter orders to implement recommendations Provider Comments to Recommendations by Pharmacy: Agree
--- NOTE | 2018-02-12 08:29 | PHA.CONS_ITS ---
<DanniellealvaradogayeRu D - Last Filed: 02/12/18 08:20> Progress Note - Pharmacy Subjective: TCU Admission Objective: Allergies cat dander Allergy (Verified 02/07/18 17:19) Unknown grass pollen Allergy (Verified 02/07/18 17:19) Itching Current Medications Generic Name Dose Route Start Last Admin Trade Name Freq PRN Reason Stop Dose Admin Acetaminophen 650 mg 02/08/18 10:06 02/12/18 06:32 Tylenol Liquid NG 650 mg Q6H PRN PRN Administration MILD PAIN (1-310) Acetylcysteine 400 mg 02/09/18 15:11 Mucomyst INHALATION Q6H.RT PRN sob/wheezing Albuterol/Ipratropium 3 ml 02/07/18 16:55 02/10/18 15:30 Duoneb INHALATION 3 ml Q4H.RT PRN Administration SOB &/OR WHEEZING Baclofen 10 mg 02/07/18 22:00 02/12/18 06:31 Lioresal NG 10 mg TID ENIO Administration Buspirone HCl 10 mg 02/07/18 18:00 02/12/18 06:29 Buspar NG 10 mg BID ENIO Administration Calamine/Phenol 1 applic 02/08/18 06:00 02/12/18 06:30 Calmoseptine Ointment TOPICAL 1 applicatio 0600,2200 [facility] Administration Protocol Docusate Sodium 100 mg 02/09/18 07:21 Colace Syrup NG BID PRN Constipation Emollient Ointment 1 applic 02/08/18 06:00 02/12/18 06:30 Eucerin Intensive Repair TOPICAL 1 applicatio 0600,2200 [facility] Administration Protocol Enoxaparin Sodium 40 mg 02/09/18 06:00 02/12/18 06:31 Lovenox SC 40 mg DAILY@0600 ENIO Administration Famotidine 40 mg 02/08/18 06:00 02/12/18 06:31 Pepcid NG 40 mg DAILY ENIO Administration Enteral Nutritional Formula 1,000 mls @ 60 mls/hr 02/09/18 03:00 02/11/18 21: 47 Jevity 1.5 NG 60 mls/hr .[id number] ENIO Administration Lacosamide 200 mg 02/10/18 18:00 02/12/18 06:32 Vimpat Solution NG 200 mg BID ENIO Administration Loratadine 10 mg 02/08/18 06:00 02/12/18 06:30 Claritin NG 10 mg DAILY ENIO Administration Lorazepam 0.5 mg 02/07/18 21:23 02/07/18 23:01 Ativan NG 0.5 mg Q6H PRN PRN Administration ANXIETY Melatonin 3 mg 02/07/18 22:00 02/11/18 21:25 Melatonin NG 3 mg QHS ENIO Administration Metoprolol Tartrate 25 mg 02/07/18 18:00 02/12/18 06:31 Lopressor (Beta Jose Juan) NG 25 mg BID ENIO Administration Mineral Oil 1 bottle 02/09/18 10:54 Mineral Oil RECTAL DAILY PRN Constipation Ondansetron HCl 8 mg 02/07/18 16:45 Zofran Odt NG Q8H PRN PRN NAUSEA/VOMITING Polyethylene Glycol 17 gm 02/09/18 07:22 Miralax GT DAILY PRN Constipation Quetiapine Fumarate 25 mg 02/07/18 22:00 02/11/18 21:26 Seroquel NG 02/14/18 23:59 25 mg QHS ENIO Administration Quetiapine Fumarate 12.5 mg 02/15/18 22:00 Seroquel NG QHS ENIO Fluticasone/Salmeterol 1 puff 02/08/18 06:00 02/12/18 06:31 Fluticasone-Salmeterol 232-14 IH 1 puff Q12 ENIO Administration Senna 1 tablet 02/09/18 07:22 Senokot NG BID PRN Constipation Sodium Bicarbonate 325 mg 02/07/18 16:48 Sodium Bicarbonate NG DAILY PRN PRN clogged enteral tube Tuberculin PPD 5 tu 02/15/18 10:00 Tubersol, Aplisol, Ppd ID 02/15/18 10:01 X1 ONE Venlafaxine HCl 75 mg 02/07/18 18:00 02/12/18 06:30 Effexor NG 75 mg BID ENIO Administration Problem List (This Medical Record has been edited. Action required.) Aortic dissection (Acute) Acute right MCA stroke (Acute) Left hemiplegia (Acute) Acute kidney injury (Acute) Kidney stones (Chronic) Hypertension (Chronic) Asthma (Chronic) Seizure disorder (Acute) Dysphagia (Acute) Vocal cord paralysis (Acute) Depression (Chronic) Vital Signs Temp Pulse Resp BP Pulse Ox 98.4 F 74 18 107/73 96 02/11/18 15:57 02/12/18 06:31 02/11/18 20:54 02/11/18 18:06 02/11/18 20:54 Oxygen Delivery Method Room Air Weight: 60.781 kg Body Mass Index (BMI) 18.1 Sodium 143 mmol/L (136-145) 02/08/18 06:15 Potassium 4.1 mmol/L (3.5-5.1) 02/08/18 06:15 Chloride 103 mmol/L (98-107) 02/08/18 06:15 Carbon Dioxide 31.0 mmol/L (21.0-32.0) 02/08/18 06:15 Anion Gap 9 (5-15) 02/08/18 06:15 BUN 20 mg/dL (7-18) H 02/08/18 06:15 Creatinine 0.58 mg/dL (0.70-1.30) L 02/08/18 06:15 Est GFR (MDRD) Af Amer 187 mL/min (>60) 02/08/18 06:15 Est GFR (MDRD) Non-Af 155 mL/min (>60) 02/08/18 06:15 BUN/Creatinine Ratio 34.3 RATIO (10-20) H 02/08/18 06:15 Glucose 102 mg/dL (74-106) 02/08/18 06:15 Assessment/Plan: 1) Pain APAP for mild pain, baclofen. Continue to monitor prn medication use, daily pain scores. 2) Pulm Acetylcysteine, Advair inh scheduled, Duoneb aerosols prn, loratadine. 3) HTN Metoprolol. Continue to monitor BP/HR. 4) Seizure Lacosamide. Continue to monitor for seizure. 5) DVT PPx Enoxaparin daily. Continue to monitor s/s bleeding/clot. 6) GI Famotidine, ondansetron as needed. Continue to monitor prn medication use, for GI distress. 7) Insomnia Melatonin at HS. Continue to monitor for insomnia. 8) Derm Calmoseptine, emollient. Continue to monitor clinically. Psychotropic Medications: 9) Depression/Anxiety Venlafaxine, buspirone, lorazepam as needed. Continue to monitor prn medication use, s/s depression. 10) Quetiapine GDR currently. Unnecessary Medications: None Bowel Regimen: 11) Senna prn, PEG prn, mineral oil prn, docusate prn. Continue to monitor prn medication use, for constipation/diarrhea. Date of Note:: 02/12/18 - Provider Comments Provider responsibility: Provider responsible to enter orders to implement recommendations <Luis Puga Chi - Last Filed: 02/12/18 18:01> Progress Note - Pharmacy Subjective: [] Objective: Allergies cat dander Allergy (Verified 02/07/18 17:19) Unknown grass pollen Allergy (Verified 02/07/18 17:19) Itching Current Medications Generic Name Dose Route Start Last Admin Trade Name Freq PRN Reason Stop Dose Admin Acetaminophen 650 mg 02/08/18 10:06 02/12/18 15:23 Tylenol Liquid NG 650 mg Q6H PRN PRN Administration MILD PAIN (1-3/10) Acetylcysteine 400 mg 02/09/18 15:11 Mucomyst INHALATION Q6H.RT PRN sob/wheezing Albuterol/Ipratropium 3 ml 02/07/18 16:55 02/10/18 15:30 Duoneb INHALATION 3 ml Q4H.RT PRN Administration SOB &/OR WHEEZING Baclofen 10 mg 02/07/18 22:00 02/12/18 14:42 Lioresal NG 10 mg TID ENIO Administration Buspirone HCl 10 mg 02/07/18 18:00 02/12/18 06:29 Buspar NG 10 mg BID ENIO Administration Calamine/Phenol 1 applic 02/08/18 06:00 02/12/18 06:30 Calmoseptine Ointment TOPICAL 1 applicatio 06,2200 [facility] Administration Protocol Docusate Sodium 100 mg 02/09/18 07:21 Colace Syrup NG BID PRN Constipation Emollient Ointment 1 applic 02/08/18 06:00 02/12/18 06:30 Eucerin Intensive Repair TOPICAL 1 applicatio 0600,2200 [facility] Administration Protocol Enoxaparin Sodium 40 mg 02/09/18 06:00 02/12/18 06:31 Lovenox SC 40 mg DAILY@0600 ENIO Administration Famotidine 40 mg 02/08/18 06:00 02/12/18 06:31 Pepcid NG 40 mg DAILY ENIO Administration Enteral Nutritional Formula 1,000 mls @ 60 mls/hr 02/09/18 03:00 02/12/18 14: 36 Jevity 1.5 NG Not Given .[id number] [facility] Lacosamide 200 mg 02/10/18 18:00 02/12/18 06:32 Vimpat Solution NG 200 mg BID ENIO Administration Loratadine 10 mg 02/08/18 06:00 02/12/18 06:30 Claritin NG 10 mg DAILY ENIO Administration Lorazepam 0.5 mg 02/07/18 21:23 02/07/18 23:01 Ativan NG 0.5 mg Q6H PRN PRN Administration ANXIETY Melatonin 3 mg 02/07/18 22:00 02/11/18 21:25 Melatonin NG 3 mg QHS ENIO Administration Metoprolol Tartrate 25 mg 02/07/18 18:00 02/12/18 06:31 Lopressor (Beta Jose Juan) NG 25 mg BID ENIO Administration Mineral Oil 1 bottle 02/09/18 10:54 Mineral Oil RECTAL DAILY PRN Constipation Ondansetron HCl 8 mg 02/07/18 16:45 Zofran Odt NG Q8H PRN PRN NAUSEA/VOMITING Polyethylene Glycol 17 gm 02/09/18 07:22 Miralax GT DAILY PRN Constipation Quetiapine Fumarate 25 mg 02/07/18 22:00 02/11/18 21:26 Seroquel NG 02/14/18 23:59 25 mg QHS [facility] Administration Quetiapine Fumarate 12.5 mg 02/15/18 22:00 Seroquel NG QHS [facility] Fluticasone/Salmeterol 1 puff 02/08/18 06:00 02/12/18 06:31 Fluticasone-Salmeterol 232-14 IH 1 puff Q12 [facility] Administration Senna 1 tablet 02/09/18 07:22 Senokot NG BID PRN Constipation Sodium Bicarbonate 325 mg 02/07/18 16:48 Sodium Bicarbonate NG DAILY PRN PRN clogged enteral tube Tuberculin PPD 5 tu 02/15/18 10:00 Tubersol, Aplisol, Ppd ID 02/15/18 10:01 X1 ONE Venlafaxine HCl 75 mg 02/07/18 18:00 02/12/18 06:30 Effexor NG 75 mg BID ENIO Administration Problem List (This Medical Record has been edited. Action required.) Aortic dissection (Acute) Acute right MCA stroke (Acute) Left hemiplegia (Acute) Acute kidney injury (Acute) Kidney stones (Chronic) Hypertension (Chronic) Asthma (Chronic) Seizure disorder (Acute) Dysphagia (Acute) Vocal cord paralysis (Acute) Depression (Chronic) Vital Signs Temp Pulse Resp BP Pulse Ox 98.0 F 74 18 105/78 97 02/12/18 16:00 02/12/18 16:00 02/12/18 16:00 02/12/18 16:00 02/12/18 16:00 Oxygen Delivery Method Room Air Weight: 60.781 kg Body Mass Index (BMI) 18.1 Sodium 143 mmol/L (136-145) 02/08/18 06:15 Potassium 4.1 mmol/L (3.5-5.1) 02/08/18 06:15 Chloride 103 mmol/L (98-107) 02/08/18 06:15 Carbon Dioxide 31.0 mmol/L (21.0-32.0) 02/08/18 06:15 Anion Gap 9 (5-15) 02/08/18 06:15 BUN 20 mg/dL (7-18) H 02/08/18 06:15 Creatinine 0.58 mg/dL (0.70-1.30) L 02/08/18 06:15 Est GFR (MDRD) Af Amer 187 mL/min (>60) 02/08/18 06:15 Est GFR (MDRD) Non-Af 155 mL/min (>60) 02/08/18 06:15 BUN/Creatinine Ratio 34.3 RATIO (10-20) H 02/08/18 06:15 Glucose 102 mg/dL (74-106) 02/08/18 06:15 Assessment/Plan: Psychotropic Medications: Unnecessary Medications: Bowel Regimen: - Provider Comments Provider responsibility: Provider responsible to enter orders to implement recommendations Provider Comments to Recommendations by Pharmacy: Agree
[2018-02-12] MEDS: Jevity 1.5 1,000 ML 60 ML NG (10:30)
[2018-02-12 12:00] LABS: Bedside Glucose 111 mg/dL (70-110)
--- NOTE | 2018-02-12 12:04 | NURSING ---
at 10:30am. NEW TUBING AND JEVITY HUNG. PLACEMENT VERIFIED,0 RESIDUAL. PT TOLERATED WELL,NO COMPLAINTS OR CONCERNS AT THIS TIME.
--- NOTE | 2018-02-12 12:55 | CASEMGMT ---
Insurance Clinical information send. Pending continued stay approval at this time. Auth#[id number] Guillermina PANTOJA, WORK STUDY STUDENT
--- NOTE | 2018-02-12 13:41 | CASEMGMT ---
Plan of care meeting held. Resident present as well as resident spouse and daughter. No discharge date set at this time. Resident to continue with further care and treatment on the Transitional Care Unit. Resident plans to transition from the TCU to have skull put back in place and then either return to TCU or Inpatient Rehab Unit. Resident skilled nursing goals is to return home with family. Resident insurance update due on this day, resident/resident family aware that continued stay approval is not guaranteed at this time. Support given. Will continue to follow. Guillermina PANTOJA, GLOBE TESTER
[2018-02-12 14:27] VITALS: PULSE 70; RESP 18; O2SAT 97
--- NOTE | 2018-02-12 14:42 | CHAPLAIN ---
Type of Pastoral Visit ___ Initial Visit ___ Follow-up Visit ___ On-call Visit _x__ General Patient Visit ___ Spiritual Assessment ___ Family Conference ___ Bereavement ___ Rapid Response ___ Code Blue ___ Other (describe below) Pastoral Care Referral From _x__ Patient ___ Family ___ Nurse ___ Physician ___ Concrete Sculptor ___ Circle Beveler ___ Other (describe below) Sacrament/Intervention _x__ Active listening ___ Anointing ___ Church ___ Bereavement ___ Communion ___ Sarah exploration ___ ___ Life review ___ Prayer ___ Reconciliation ___ Sacrament of Sick _x__ Supportive presence ___ Wedding ___ Other (describe below) Pastoral Comments patient expresses great desire for visit from molded goods spot picker; pt talks about his day and therapy; pt speaks of great support from family and friends; pt tells me of his thankfulness for good care at hospital and thankful that he is back in [place]/his home; visit was shortened by timing of his care meeting
--- NOTE | 2018-02-12 14:50 | NURSING ---
AT 8AM TODAY,WENT IN TO CHECK ON PT AND SEEN RUBBER BAND THATS CONNECTED TO NG TUBE WAS BUSTED. NO DISCOMFORT TO PT. NG STILL INTACT. REPORTED TO SAVANA MI.
--- NOTE | 2018-02-12 15:38 | NURSING ---
PLACEMENT VERIFIED,0 RESIDUAL. FLUSHED. PAIN MED GIVEN THREW NG TUBE. PT TOLERATED WELL,NO COMPLAINTS OR DISCOMFORT AT THIS TIME.
[2018-02-12 16:00] VITALS: BP 105/78; PULSE 74; RESP 18; TEMP 36.7; O2SAT 97
[2018-02-12 17:11] LABS: Bedside Glucose 98 mg/dL (70-110)
--- NOTE | 2018-02-12 17:19 | CASEMGMT ---
Insurance Continued stay approved with next update due on 02/19/18. Auth#[id number] Guillermina PANTOJA, COMPUTING ARCHITECT
--- NOTE | 2018-02-12 18:25 | NURSING ---
Addendum entered by Kimberley Abraham 02/12/18 19:00: Dr. Puga updated on corpak falling out, NO to hold all medications and call general surgery to get PEG inserted tomorrow. Original Note: NO for albuterol aerosols [id number] routine and consult general surgery for PEG tube placement. Dr. Goodman paged. Patient's corpak fell out during coughing episode this evening.
[2018-02-12 19:20] VITALS: PULSE 79; RESP 20
[2018-02-12] MEDS: Albuterol 2.5 MG/3 ML VIAL.NEB. INHALATION (19:20)
--- NOTE | 2018-02-12 19:57 | NURSING ---
Dr. Goodman made aware of consult for PEG tube, states he will let us know tomorrow with time for surgery. Patient's updated.
[2018-02-12] MEDS: Dext 5%-0.45% NS 1,000 ML 60 ML IV (21:11)
--- NOTE | 2018-02-12 22:01 | NURSING ---
Dr. Goodman called and confirmed surgery will be on 02/13 at 1200. Staff will be up to get him around 1100. No other orders. Pt and updated. Pt states she will be in tomorrow at some point.
[2018-02-12] MEDS: Morphine 2 MG/ML Syringe 2.5 MG IV (23:01)
[2018-02-13] VITALS (7 sets, daily range): BP systolic 132–143; BP diastolic 85–88; PULSE 75–87; RESP 16–18; TEMP 36.4–36.6; O2SAT 93–95
[2018-02-13 00:26] LABS: Bedside Glucose 90 mg/dL (70-110)
[2018-02-13] MEDS: Albuterol 2.5 MG/3 ML VIAL.NEB. INHALATION ×2 (06:55→13:17)
[2018-02-13 07:06] LABS: Bedside Glucose 104 mg/dL (70-110)
--- NOTE | 2018-02-13 08:44 | PCM.CONS.GEN ---
Problem List (1) Dysphagia Status: Acute (2) Left hemiplegia Status: Acute Reason for Consult Date of Consultation: 02/13/18 Reason for Consultation: Dysphagia. History of Present Illness: The patient is a 52 year old M who presents from the [facility] following an aortic dissection complicated by a stroke. Patient noted on 10/07 he had an aortic dissection and was transferred from [place] to [facility]. He had a stroke on 10/13 which left him with left hemiplegia. He went to a rehab facility in [place] and was readmitted on 01/16 with pneumonia. He was intubated that hospitalization. He developed vocal cord paralysis. He had a swallowing study done which noted high risk for aspiration. A Dobbhoff was placed. He was discharged and transferred to TCU on 02/07. Patient has no use of his left arm. He notes he is able to take a few steps with assistance of the railing. He has bowel and bladder sensation. Patient notes he had a PEG tube previously, which was removed 2 month ago. Patient notes only other abdominal surgery is a pediatric left inguinal hernia repair when he was a baby. Past Medical History Past Medical History (Chronic Problems): Chronic Problems (This Medical Record has been edited. Action required.) Kidney stones (Chronic) Hypertension (Chronic) Asthma (Chronic) Depression (Chronic) Allergies cat dander Allergy (Verified 02/07/18 17:19) Unknown grass pollen Allergy (Verified 02/07/18 17:19) Itching Home Medications: Ambulatory Orders Medication Instructions Recorded Albuterol Sulfate [Proair Hfa] 1 puff INHALATION BID PRN 04/01/15 Fluticasone 110 Mcg [Flovent (SP)] 2 puff INHALATION BID 04/01/15 Lisinopril [Zestril] 5 mg PO DAILY 04/08/15 Albuterol IH (ProAir) [Proair Hfa 2 puff INHALATION Q6H PRN PRN 10/07/17 (SP)Vent Pts] Budesonide/Formoterol 80-4.5 2 puff INHALATION BID 10/07/17 [Symbicort 80-4.5 Mcg Inhaler] Lisinopril [Zestril] 5 mg PO DAILY 10/07/17 Surgical History: herniorrhaphy - Inguinal., - - Aortic dissection repair 10/07/2017, Craniotomy 10/13/2017, Lithotripsy, Left ankle ORIF, Left wrist ORIF, Bilateral heel spur removal, Traceostomy. Psychiatric History: Anxiety, Depression Lives: Spouse/ Significant Other Smoking Status: Former smoker Tobacco Use: Non-smoker Alcohol: Occasional Drugs: None - *Family History Maternal History Items: No pertinent history Paternal History Items: No pertinent history Review of Systems Constitutional: Reports: Anorexia, Weakness, Weight Change HEENT: Denies: Head Aches, Sinus Congestion, Sinus Drainage Cardiovascular: Denies: Chest Pain, Palpitations Respiratory: Denies: Cough, Shortness of breath at rest, Sputum production Gastrointestinal: Reports: - - Notes tailbone pain. Denies: Abdominal Pain, Nausea, Vomiting Genitourinary: Denies: Dysuria Musculoskeletal: Denies: Joint Pain, Joint Tenderness Skin: Reports: Skin Changes - Redness of the tailbone region Neurological: Reports: Balance problems, Change in Speech, Difficulty swallowing, Seizures Psychiatric: Reports: Anxiety, Depression. Denies: Homicidal Ideations, Suicidal Ideations Hematologic/ Lymphatic: Reports: Anemia, Easy Bruising. Denies: Hx of blood clot Patient Problems: Active and Suspected Problems (This Medical Record has been edited. Action required.) Aortic dissection (Acute) Acute right MCA stroke (Acute) Left hemiplegia (Acute) Acute kidney injury (Acute) Seizure disorder (Acute) Dysphagia (Acute) Vocal cord paralysis (Acute) Dysphagia (Acute) - Physical Exam General: Alert, Oriented x3, Cooperative HEENT: PERRLA, - - Concave region of right side head from recent surgery Neck: Supple, No JVD, Negative Carotid Bruits Lungs: Clear to auscultation, Diminished - bilateral lower lungs Cardiovascular: Regular rate, No murmurs Abdomen: Bowel Sounds Present, Soft, Non Tender, Non-Distended, - - Nicely healed previous PEG tube site Extremities: No clubbing, No cyanosis, No edema, - - Bilateral lower leg atrophy Skin: - - Irritation at the tailbone region. No ulcer noted. Musculoskeletal: Muscle Wasting Neurological: Unsteady Gait, - - Loss of function/movement of left upper extremity Psych/Mental Status: Anxious Vital Signs Temp Pulse Resp BP Pulse Ox 98.0 F 83 16 105/78 97 02/12/18 16:00 02/13/18 06:55 02/13/18 06:55 02/12/18 16:00 02/12/18 16:00 Oxygen Delivery Method Room Air Weight: 133 lb 15.987 oz Body Mass Index (BMI) 18.1 Intake and Output for Last 24 Hours 02/11/18 02/12/18 02/13/18 23:59 23:59 23:59 Intake Total 3835 / 3835 2338 / 2338 Output Total 375 / 375 150 / 150 Balance 3460 / 3460 2188 / 2188 POC Glucose 02/13/18 02/13/18 02/12/18 06:49 00:08 17:06 POC Glucose 104 90 98 02/12/18 11:50 POC Glucose 111 H Assessment/Plan All Active Problems (This Medical Record has been edited. Action required.) Aortic dissection (Acute) Acute right MCA stroke (Acute) Left hemiplegia (Acute) Acute kidney injury (Acute) Seizure disorder (Acute) Dysphagia (Acute) Vocal cord paralysis (Acute) Dysphagia (Acute) I have been consulted in conjunction with Dr. Goodman Impression: Dysphagia. Vocal cord paralysis. Hx aortic dissection. Right MCA stroke. Left hemiparalysis. Plan: Discussed patient with Dr. Goodman. Dr. Goodman will plan to perform a Percutaneous endoscopic gastrostomy today. Procedure details, risks and benefits have been explained and reviewed. Patient has had the opportunity to ask and have questions answered. Patient verbally understands and agrees with the plan. Thank you for allowing me to participate in this patient's care. My recommendations will be available via electronic medical records. Code Visit Office Visits / Consults: [id number] IP Consult L3
--- NOTE | 2018-02-13 08:50 | CON.PCM_ITS ---
Problem List (1) Dysphagia Status: Acute (2) Left hemiplegia Status: Acute Reason for Consult Date of Consultation: 02/13/18 Reason for Consultation: Dysphagia. History of Present Illness: The patient is a 52 year old M who presents from the [facility] following an aortic dissection complicated by a stroke. Patient noted on 10/07 he had an aortic dissection and was transferred from [place] to [facility]. He had a stroke on 10/13 which left him with left hemiplegia. He went to a rehab facility in [place] and was readmitted on 01/16 with pneumonia. He was intubated that hospitalization. He developed vocal cord paralysis. He had a swallowing study done which noted high risk for aspiration. A Dobbhoff was placed. He was discharged and transferred to TCU on 02/07. Patient has no use of his left arm. He notes he is able to take a few steps with assistance of the railing. He has bowel and bladder sensation. Patient notes he had a PEG tube previously, which was removed 2 month ago. Patient notes only other abdominal surgery is a pediatric left inguinal hernia repair when he was a baby. Past Medical History Past Medical History (Chronic Problems): Chronic Problems (This Medical Record has been edited. Action required.) Kidney stones (Chronic) Hypertension (Chronic) Asthma (Chronic) Depression (Chronic) Allergies cat dander Allergy (Verified 02/07/18 17:19) Unknown grass pollen Allergy (Verified 02/07/18 17:19) Itching Home Medications: Ambulatory Orders Medication Instructions Recorded Albuterol Sulfate [Proair Hfa] 1 puff INHALATION BID PRN 04/01/15 Fluticasone 110 Mcg [Flovent (SP)] 2 puff INHALATION BID 04/01/15 Lisinopril [Zestril] 5 mg PO DAILY 04/08/15 Albuterol IH (ProAir) [Proair Hfa 2 puff INHALATION Q6H PRN PRN 10/07/17 (SP)Vent Pts] Budesonide/Formoterol 80-4.5 2 puff INHALATION BID 10/07/17 [Symbicort 80-4.5 Mcg Inhaler] Lisinopril [Zestril] 5 mg PO DAILY 10/07/17 Surgical History: herniorrhaphy - Inguinal., - - Aortic dissection repair 2017, Craniotomy 10/13/2017, Lithotripsy, Left ankle ORIF, Left wrist ORIF, Bilateral heel spur removal, Traceostomy. Psychiatric History: Anxiety, Depression Lives: Spouse/ Significant Other Smoking Status: Former smoker Tobacco Use: Non-smoker Alcohol: Occasional Drugs: None - *Family History Maternal History Items: No pertinent history Paternal History Items: No pertinent history Review of Systems Constitutional: Reports: Anorexia, Weakness, Weight Change HEENT: Denies: Head Aches, Sinus Congestion, Sinus Drainage Cardiovascular: Denies: Chest Pain, Palpitations Respiratory: Denies: Cough, Shortness of breath at rest, Sputum production Gastrointestinal: Reports: - - Notes tailbone pain. Denies: Abdominal Pain, Nausea, Vomiting Genitourinary: Denies: Dysuria Musculoskeletal: Denies: Joint Pain, Joint Tenderness Skin: Reports: Skin Changes - Redness of the tailbone region Neurological: Reports: Balance problems, Change in Speech, Difficulty swallowing , Seizures Psychiatric: Reports: Anxiety, Depression. Denies: Homicidal Ideations, Suicidal Ideations Hematologic/ Lymphatic: Reports: Anemia, Easy Bruising. Denies: Hx of blood clot Patient Problems: Active and Suspected Problems (This Medical Record has been edited. Action required.) Aortic dissection (Acute) Acute right MCA stroke (Acute) Left hemiplegia (Acute) Acute kidney injury (Acute) Seizure disorder (Acute) Dysphagia (Acute) Vocal cord paralysis (Acute) Dysphagia (Acute) - Physical Exam General: Alert, Oriented x3, Cooperative HEENT: PERRLA, - - Concave region of right side head from recent surgery Neck: Supple, No JVD, Negative Carotid Bruits Lungs: Clear to auscultation, Diminished - bilateral lower lungs Cardiovascular: Regular rate, No murmurs Abdomen: Bowel Sounds Present, Soft, Non Tender, Non-Distended, - - Nicely healed previous PEG tube site Extremities: No clubbing, No cyanosis, No edema, - - Bilateral lower leg atrophy Skin: - - Irritation at the tailbone region. No ulcer noted. Musculoskeletal: Muscle Wasting Neurological: Unsteady Gait, - - Loss of function/movement of left upper extremity Psych/Mental Status: Anxious Vital Signs Temp Pulse Resp BP Pulse Ox 98.0 F 83 16 105/78 97 02/12/18 16:00 02/13/18 06:55 02/13/18 06:55 02/12/18 16:00 02/12/18 16:00 Oxygen Delivery Method Room Air Weight: 133 lb 15.987 oz Body Mass Index (BMI) 18.1 Intake and Output for Last 24 Hours 02/11/18 02/12/18 02/13/18 23:59 23:59 23:59 Intake Total 3835 / 3835 2338 / 2338 Output Total 375 / 375 150 / 150 Balance 3460 / 3460 2188 / 2188 POC Glucose 02/13/18 02/13/18 02/12/18 06:49 00:08 17:06 POC Glucose 104 90 98 02/12/18 11:50 POC Glucose 111 H Assessment/Plan All Active Problems (This Medical Record has been edited. Action required.) Aortic dissection (Acute) Acute right MCA stroke (Acute) Left hemiplegia (Acute) Acute kidney injury (Acute) Seizure disorder (Acute) Dysphagia (Acute) Vocal cord paralysis (Acute) Dysphagia (Acute) I have been consulted in conjunction with Dr. Goodman Impression: Dysphagia. Vocal cord paralysis. Hx aortic dissection. Right MCA stroke. Left hemiparalysis. Plan: Discussed patient with Dr. Goodman. Dr. Goodman will plan to perform a Percutaneous endoscopic gastrostomy today. Procedure details, risks and benefits have been explained and reviewed. Patient has had the opportunity to ask and have questions answered. Patient verbally understands and agrees with the plan. Thank you for allowing me to participate in this patient's care. My recommendations will be available via electronic medical records. Code Visit Office Visits / Consults: [id number] IP Consult L3
--- NOTE | 2018-02-13 10:24 | NURSING ---
patient taken down to AC for peg surgery, report given in SAVANA Espitia.
--- NOTE | 2018-02-13 10:56 | MDS.RN ---
Pain interview for ELENITA 02/14/18 completed.
--- NOTE | 2018-02-13 12:53 | NURSING ---
Pt. returned from peg tube placement. Per Dr. Goodman, okay to use PEG in 4-6 hours for medications and enteral nutrition.
[2018-02-13] MEDS: Ondansetron ODT 4 MG Tablet 8 MG NG (13:24)
--- NOTE | 2018-02-13 14:26 | CASEMGMT ---
BIMS and PHQ9 interviews completed on this date for MDS assessment. BIMS score 07/12. PHQ9 score 01/22 SCARLETT Sebastian
--- NOTE | 2018-02-13 16:23 | CHAPLAIN ---
Type of Pastoral Visit ___ Initial Visit _x__ Follow-up Visit ___ On-call Visit ___ General Patient Visit ___ Spiritual Assessment ___ Family Conference ___ Bereavement ___ Rapid Response ___ Code Blue ___ Other (describe below) Pastoral Care Referral From _x__ Patient ___ Family ___ Nurse ___ Physician ___ Sand Cutter ___ Tool Repair Technician ___ Other (describe below) Sacrament/Intervention _x__ Active listening ___ Anointing ___ Buddhism ___ Bereavement ___ Communion ___ Sarah exploration ___ ___ Life review _x__ Prayer ___ Reconciliation ___ Sacrament of Sick _x__ Supportive presence ___ Wedding ___ Other (describe below) Pastoral Comments continuation of get acquainted visits with patient after interruption previously; pt says that he is well and making progress; pt said he would like to talk more but would like to keep it short as I am emotionally tired; when asked more about that pt just repeated that there has been so much going on that I am just tired, mostly emotionally tired; pt said please come back but I'm just tired right now;
[2018-02-13 17:05] LABS: Bedside Glucose 90 mg/dL (70-110)
[2018-02-13] MEDS: Lacosamide Solution 100 MG/10 ML UDC 200 MG NG (17:38)
[2018-02-13] MEDS: Fluticasone/Salmeterol 232-14 Inhaler 1 PUFF IH (17:38)
[2018-02-13] MEDS: Metoprolol Tartrate 25 MG Tablet NG (17:38)
[2018-02-13] MEDS: Venlafaxine HCl 75 MG Tablet NG (17:38)
[2018-02-13] MEDS: busPIRone 5 MG Tablet 10 MG NG (17:39)
[2018-02-13] MEDS: Morphine 2 MG/ML Syringe 2.5 MG IV (17:39)
--- NOTE | 2018-02-13 18:02 | NURSING ---
LLQ PEG tube placement verified with air auscultation. Meds given through PEG tube, tolerated well. Tube feeding resumed at 30 ml/hr, patient tolerating well. Instructed to notify staff if he feels nausea/vomiting or pain, patient verbalizes understanding.
[2018-02-13] MEDS: Ipratropium/Albuterol Sulfate 3 ML AMPUL.NEB INHALATION (19:30)
[2018-02-13] MEDS: QUEtiapine 25 MG Tablet NG (21:43)
[2018-02-13] MEDS: Baclofen 10 MG Tablet NG (21:43)
[2018-02-13] MEDS: MELATONIN 3 MG TABLET NG (21:43)
[2018-02-13] MEDS: Menthol/Lanolin/Calamine/Znox 113 GM Tube 1 APPLIC TOPICAL (21:44)
[2018-02-14 00:31] LABS: Bedside Glucose 97 mg/dL (70-110)
[2018-02-14] MEDS: Venlafaxine HCl 75 MG Tablet NG ×2 (04:57→17:27)
[2018-02-14] MEDS: Loratadine 10 MG Tablet NG (04:57)
[2018-02-14] MEDS: Famotidine 20 MG Tablet 40 MG NG (05:01)
[2018-02-14] MEDS: busPIRone 5 MG Tablet 10 MG NG ×2 (05:02→17:27)
[2018-02-14] MEDS: Menthol/Lanolin/Calamine/Znox 113 GM Tube 1 APPLIC TOPICAL ×2 (05:04→21:10)
[2018-02-14] MEDS: Baclofen 10 MG Tablet NG ×3 (05:05→21:08)
[2018-02-14 05:07] VITALS: BP 94/57; PULSE 70
[2018-02-14] MEDS: Enoxaparin 40 MG/0.4 ML Syringe SC (05:08)
[2018-02-14] MEDS: Fluticasone/Salmeterol 232-14 Inhaler 1 PUFF IH ×2 (05:12→18:02)
[2018-02-14] MEDS: Lacosamide Solution 100 MG/10 ML UDC 200 MG NG ×2 (05:17→17:42)
[2018-02-14 06:30] VITALS: PULSE 78; RESP 18; O2SAT 94
[2018-02-14] MEDS: Albuterol 2.5 MG/3 ML VIAL.NEB. INHALATION (06:30)
[2018-02-14 07:15] LABS: Bedside Glucose 144 mg/dL (70-110)
--- NOTE | 2018-02-14 07:36 | NURSING ---
Jevity hung no residual, placement verified, flushed with 60cc sterile water. HOB at 30 degrees. Pt tolerated well no concerns voiced at this time.
[2018-02-14 11:15] LABS: Bedside Glucose 117 mg/dL (70-110)
[2018-02-14] MEDS: Jevity 1.5 1,000 ML 35 ML NG (14:42)
[2018-02-14] MEDS: 0.9% Saline Lock 10 ML Syringe IV (15:15)
[2018-02-14] MEDS: Morphine 2 MG/ML Syringe 2.5 MG IV ×2 (15:15→21:46)
--- NOTE | 2018-02-14 15:27 | NURSING ---
Neurosurgeon office called, Pt. to have craniotomy flap replaced on 02/28/18, will be admitted to [facility] on 02/27/18, night before surgery. aware.
[2018-02-14 16:00] VITALS: BP 117/79; PULSE 75; RESP 20; TEMP 37.1; O2SAT 95
[2018-02-14 17:05] LABS: Bedside Glucose 95 mg/dL (70-110)
[2018-02-14 17:31] VITALS: BP 117/79; PULSE 75
[2018-02-14] MEDS: Metoprolol Tartrate 25 MG Tablet NG (17:31)
[2018-02-14] MEDS: QUEtiapine 25 MG Tablet NG (21:08)
[2018-02-14] MEDS: MELATONIN 3 MG TABLET NG (21:08)
--- NOTE | 2018-02-14 23:52 | NURSING ---
Pt TF advanced from 35ml/hr to 45 ml/hr at 2130. Gastric residual=90cc. Pt without c/o nausea.
[2018-02-15 00:11] LABS: Bedside Glucose 93 mg/dL (70-110)
[2018-02-15 06:08] VITALS: BP 108/56; PULSE 66
[2018-02-15] MEDS: Famotidine 20 MG Tablet 40 MG NG (06:08)
[2018-02-15] MEDS: Loratadine 10 MG Tablet NG (06:08)
[2018-02-15] MEDS: Metoprolol Tartrate 25 MG Tablet NG ×2 (06:08→18:35)
[2018-02-15] MEDS: Venlafaxine HCl 75 MG Tablet NG ×2 (06:08→18:35)
[2018-02-15] MEDS: busPIRone 5 MG Tablet 10 MG NG ×2 (06:08→18:34)
[2018-02-15] MEDS: Enoxaparin 40 MG/0.4 ML Syringe SC (06:09)
[2018-02-15] MEDS: Lacosamide Solution 100 MG/10 ML UDC 200 MG NG ×2 (06:09→18:44)
[2018-02-15] MEDS: Fluticasone/Salmeterol 232-14 Inhaler 1 PUFF IH ×2 (06:09→18:35)
[2018-02-15] MEDS: Menthol/Lanolin/Calamine/Znox 113 GM Tube 1 APPLIC TOPICAL ×2 (06:10→21:59)
[2018-02-15] MEDS: Baclofen 10 MG Tablet NG ×3 (06:15→21:58)
[2018-02-15 07:15] LABS: Bedside Glucose 118 mg/dL (70-110)
--- NOTE | 2018-02-15 08:04 | NURSING ---
Dr. Puga updated on pt not receiving fluids. New order to D/C
[2018-02-15 08:30] LABS: Absolute Lymphocyte Count 1.56 X10^3/ul (0.83-4.51); Absolute Neutrophil Count 4.2 X10^3/uL (2.0-7.7); Basophil# 0.06 X10^3/uL; Basophil% 0.8 % (0-1); Eosinophil# 0.73 X10^3/uL; Eosinophils% 10.3 % (0-5); Hematocrit 36.1 % (40-54); Hemoglobin 12.2 g/dl (13.0-16.5); Lymphocyte # 1.56 X10^3/ul (4.0); Lymphocyte % 21.9 % (19-41); Mean Corp Hgb Conc 33.8 g/gl (32-36); Mean Corpuscular Volume 97.6 fL (80-94); Mean Platelet Vol. 9.2 fl (6.2-12.0); Monocyte# 0.58 X10^3/uL; Monocyte% 8.2 % (0-10); Neutrophil # 4.15 X10^3/uL (2.7-7.7); Neutrophil % 58.4 % (47-70); Platelet Count 370 K/mm3 (150-450); RBC Distribution Width CV 15.3 % (11.6-14.6); RBC Distribution Width SD 52.1 fl (35.1-43.9); White Blood Count 7.1 K/mm3 (4.4-11.0)
[2018-02-15 08:37] LABS: POSITIVE COUNT NO; POSITIVE DIFFERENTIAL NO; POSITIVE MORPHOLOGY NO
[2018-02-15 08:42] LABS: Anion Gap 7 (5-15); BUN 13 mg/dL (7-18); Chloride 105 mmol/L (98-107); Creatinine, Serum 0.54 mg/dL (0.70-1.30); EST Glomerular Filtration Rate 168 mL/min (>60); Est Glom Filt Rate - Afr Amer 203 mL/min (>60); Estimated Creatinine Clearance 136.01 ml/min; Glucose 101 mg/dL (74-106); Sodium Level 143 mmol/L (136-145)
[2018-02-15] MEDS: Tuberculin,Purif.prot.deriv. 50 TU/ML Vial 5 ML ID (10:42)
[2018-02-15 11:36] LABS: Bedside Glucose 92 mg/dL (70-110)
--- NOTE | 2018-02-15 12:22 | NURSING ---
Dr. Puga reviewed AM labs, NNO
[2018-02-15] MEDS: Acetaminophen 650 MG/20 ML UDC NG (13:52)
--- NOTE | 2018-02-15 13:59 | NURSING ---
PLACEMENT CHECKED AND VERIFIED, RESIDUAL CHECKED,10CC. FLUSHED 60ML. NO DISCOMFORT OR CONCERNS AT THIS TIME. PT TOLERATED WELL.
[2018-02-15 15:46] VITALS: BP 120/80; PULSE 80; RESP 18; TEMP 36.7; O2SAT 94
[2018-02-15] MEDS: 0.9% Saline Lock 10 ML Syringe IV (16:01)
--- NOTE | 2018-02-15 16:05 | NURSING ---
THIS NURSE FLUSHED IV IN RIGHT ARM,10ML OF SALINE. NO SIGNS/SYMPTOMS OF INFECTION. PT TOLERATED WELL,NO COMPLAINTS AT THIS TIME.
[2018-02-15] MEDS: Jevity 1.5 1,000 ML 60 ML NG (16:07)
--- NOTE | 2018-02-15 16:19 | NURSING ---
THIS NURSE VERIFIED PLACEMENT,O RESIDUAL. NEW BOTTLE OF JEVITY AND TUBING HUNG. DRESSING CHANGED AT PEG SITE. PT TOLERATED WELL. NO COMPLANTS OR CONCERNS AT THIS TIME.
[2018-02-15 17:15] LABS: Bedside Glucose 93 mg/dL (70-110)
[2018-02-15] MEDS: Senna Tablet 1 TABLET NG (18:34)
[2018-02-15 18:35] VITALS: BP 120/80; PULSE 80
--- NOTE | 2018-02-15 18:55 | NURSING ---
PLACEMENT VARIFIED.0 RESIDUAL,PT TOLERATED WELL.
[2018-02-15] MEDS: QUEtiapine 25 MG Tablet 12.5 MG NG (21:58)
[2018-02-15] MEDS: MELATONIN 3 MG TABLET NG (21:59)
[2018-02-15 23:16] VITALS: PULSE 70; RESP 18; O2SAT 98
[2018-02-16 00:15] LABS: Bedside Glucose 99 mg/dL (70-110)
[2018-02-16] MEDS: Famotidine 20 MG Tablet 40 MG NG (04:42)
[2018-02-16] MEDS: Loratadine 10 MG Tablet NG (04:42)
[2018-02-16] MEDS: Venlafaxine HCl 75 MG Tablet NG ×2 (04:42→18:39)
[2018-02-16] MEDS: Baclofen 10 MG Tablet NG ×3 (04:42→21:33)
[2018-02-16] MEDS: busPIRone 5 MG Tablet 10 MG NG ×2 (04:42→18:38)
[2018-02-16 04:48] VITALS: BP 115/75; PULSE 68
[2018-02-16] MEDS: Metoprolol Tartrate 25 MG Tablet NG ×2 (04:48→18:39)
[2018-02-16] MEDS: Acetaminophen 650 MG/20 ML UDC NG ×2 (04:50→14:11)
[2018-02-16] MEDS: Enoxaparin 40 MG/0.4 ML Syringe SC (04:55)
[2018-02-16] MEDS: Fluticasone/Salmeterol 232-14 Inhaler 1 PUFF IH ×2 (04:57→18:38)
[2018-02-16] MEDS: Menthol/Lanolin/Calamine/Znox 113 GM Tube 1 APPLIC TOPICAL ×2 (04:59→21:32)
--- NOTE | 2018-02-16 05:35 | NURSING ---
pt given a shower this morning and manager gyn brought to this nurse attention that pt has 2 alvina in the occipital lobe of the head. skin intact no drainage or redness to the area. Herminio Baker is aware of this
[2018-02-16] MEDS: Lacosamide Solution 100 MG/10 ML UDC 200 MG NG ×2 (06:59→18:43)
[2018-02-16 07:16] LABS: Bedside Glucose 98 mg/dL (70-110)
[2018-02-16 11:05] LABS: Bedside Glucose 127 mg/dL (70-110)
[2018-02-16] MEDS: Jevity 1.5 1,000 ML 60 ML NG (14:16)
--- NOTE | 2018-02-16 14:32 | NURSING ---
IV D/C. VERIFIED PLACEMENT, 2O RESIDUAL. NEW BOTTLE AND TUBING HUNG. BED 30 DEGREES. PT TOLERATED WELL,NO COMPLANTS OR CONCERNS AT THIS TIME. SAVANA JIM AWARE
[2018-02-16 16:00] VITALS: BP 127/61; PULSE 66; RESP 18; TEMP 36.4; O2SAT 94
[2018-02-16 16:56] LABS: Bedside Glucose 107 mg/dL (70-110)
[2018-02-16 18:39] VITALS: BP 127/61; PULSE 66
--- NOTE | 2018-02-16 19:13 | NURSING ---
MOUTH CARE GIVEN. PEG TUBE PLACEMENT VERIFIED, 0 RESIDUAL. HEAD OF BED 30 DEGREES. TURNED PT TO LEFT SIDE. PT RESTING COMFORTABLE,FAMILY IN ROOM. NO COMPLAINTS OR CONCERNS.
[2018-02-16] MEDS: QUEtiapine 25 MG Tablet 12.5 MG NG (21:33)
[2018-02-16] MEDS: MELATONIN 3 MG TABLET NG (21:33)
[2018-02-17 00:30] LABS: Bedside Glucose 97 mg/dL (70-110)
[2018-02-17 05:16] VITALS: BP 120/65; PULSE 67
[2018-02-17] MEDS: Metoprolol Tartrate 25 MG Tablet NG ×2 (05:16→17:34)
[2018-02-17] MEDS: busPIRone 5 MG Tablet 10 MG NG ×2 (05:18→17:34)
[2018-02-17] MEDS: Loratadine 10 MG Tablet NG (05:18)
[2018-02-17] MEDS: Venlafaxine HCl 75 MG Tablet NG ×2 (05:18→17:34)
[2018-02-17] MEDS: Famotidine 20 MG Tablet 40 MG NG (05:18)
[2018-02-17] MEDS: Baclofen 10 MG Tablet NG ×3 (05:19→20:43)
[2018-02-17] MEDS: Lacosamide Solution 100 MG/10 ML UDC 200 MG NG ×2 (05:25→17:34)
[2018-02-17] MEDS: Menthol/Lanolin/Calamine/Znox 113 GM Tube 1 APPLIC TOPICAL ×2 (05:31→20:41)
[2018-02-17] MEDS: Fluticasone/Salmeterol 232-14 Inhaler 1 PUFF IH ×2 (05:31→17:35)
[2018-02-17] MEDS: Enoxaparin 40 MG/0.4 ML Syringe SC (05:32)
--- NOTE | 2018-02-17 07:11 | NURSING ---
Jevity hung no residual, placement verified, flushed with 60cc sterile water. HOB at 30 degrees. Pt tolerated well no concerns voiced at this time
[2018-02-17 07:25] LABS: Bedside Glucose 119 mg/dL (70-110)
[2018-02-17 08:37] VITALS: PULSE 67; RESP 16
[2018-02-17] MEDS: Jevity 1.5 1,000 ML 60 ML NG (09:59)
--- NOTE | 2018-02-17 10:00 | NURSING ---
Site cleansed with betadine; 2 alvina removed from back of head. Patient tolerated well.
[2018-02-17 11:26] LABS: Bedside Glucose 115 mg/dL (70-110)
--- NOTE | 2018-02-17 14:22 | CPS ---
Patient with therapy.
[2018-02-17 16:00] VITALS: BP 129/65; PULSE 73; RESP 16; TEMP 36.8; O2SAT 97
[2018-02-17 17:01] LABS: Bedside Glucose 122 mg/dL (70-110)
[2018-02-17 17:34] VITALS: PULSE 80
[2018-02-17] MEDS: QUEtiapine 25 MG Tablet 12.5 MG NG (20:43)
[2018-02-17] MEDS: MELATONIN 3 MG TABLET NG (20:43)
[2018-02-18 00:35] LABS: Bedside Glucose 116 mg/dL (70-110)
[2018-02-18] MEDS: Jevity 1.5 1,000 ML 60 ML NG ×2 (04:48→22:10)
[2018-02-18] MEDS: Menthol/Lanolin/Calamine/Znox 113 GM Tube 1 APPLIC TOPICAL ×2 (04:56→19:47)
[2018-02-18] MEDS: busPIRone 5 MG Tablet 10 MG NG ×2 (04:56→18:53)
[2018-02-18] MEDS: Loratadine 10 MG Tablet NG (04:57)
[2018-02-18] MEDS: Venlafaxine HCl 75 MG Tablet NG ×2 (04:57→18:53)
[2018-02-18] MEDS: Fluticasone/Salmeterol 232-14 Inhaler 1 PUFF IH ×2 (04:57→18:51)
[2018-02-18 04:58] VITALS: BP 122/69; PULSE 68
[2018-02-18] MEDS: Famotidine 20 MG Tablet 40 MG NG (04:58)
[2018-02-18] MEDS: Baclofen 10 MG Tablet NG ×3 (04:58→19:49)
[2018-02-18] MEDS: Enoxaparin 40 MG/0.4 ML Syringe SC (04:58)
[2018-02-18] MEDS: Metoprolol Tartrate 25 MG Tablet NG ×2 (04:58→18:52)
[2018-02-18] MEDS: Lacosamide Solution 100 MG/10 ML UDC 200 MG NG ×2 (05:05→19:47)
[2018-02-18 07:20] LABS: Bedside Glucose 103 mg/dL (70-110)
[2018-02-18 11:50] LABS: Bedside Glucose 100 mg/dL (70-110)
--- NOTE | 2018-02-18 15:34 | NURSING ---
1430- VERIFIED PLACEMENT, O RESIDUAL,FLUSHED 60CC. HEAD OF BED 30 DEGREES. PT TOLERATED WELL. NO COMPLAINTS OR CONCERNS AT THIS TIME.
--- NOTE | 2018-02-18 15:48 | NURSING ---
THIS NURSE FOUND PT HAS A RED,SLIGHTLY RAISED RASH TO RIGHT ARM AROUND ELBOW AREA. PT STATED IT ITCHES. REPORTED TO SAVANA MI
[2018-02-18 15:51] VITALS: BP 126/77; PULSE 66; RESP 18; TEMP 36.4; O2SAT 97
[2018-02-18 17:01] LABS: Bedside Glucose 111 mg/dL (70-110)
[2018-02-18 18:52] VITALS: BP 126/77; PULSE 66
--- NOTE | 2018-02-18 19:14 | NURSING ---
PLACEMENT VERIFIED,O RESIDUAL,FLUSHED 60CC. HEAD OF BED 30 DEGRESS. PT TOLERATED WELL,NO COMPLAINTS OR CONCERNS AT THIS TIME.
[2018-02-18] MEDS: MELATONIN 3 MG TABLET NG (19:49)
[2018-02-18] MEDS: QUEtiapine 25 MG Tablet 12.5 MG NG (19:49)
[2018-02-18 22:48] VITALS: PULSE 72; RESP 18; O2SAT 97
[2018-02-18 23:56] LABS: Bedside Glucose 103 mg/dL (70-110)
[2018-02-19] MEDS: Menthol/Lanolin/Calamine/Znox 113 GM Tube 1 APPLIC TOPICAL ×2 (04:36→21:17)
[2018-02-19] MEDS: busPIRone 5 MG Tablet 10 MG NG ×2 (04:36→18:17)
[2018-02-19] MEDS: Loratadine 10 MG Tablet NG (04:37)
[2018-02-19] MEDS: Fluticasone/Salmeterol 232-14 Inhaler 1 PUFF IH ×2 (04:37→18:19)
[2018-02-19] MEDS: Venlafaxine HCl 75 MG Tablet NG ×2 (04:37→18:18)
[2018-02-19 04:38] VITALS: BP 123/62; PULSE 67
[2018-02-19] MEDS: Metoprolol Tartrate 25 MG Tablet NG ×2 (04:38→18:17)
[2018-02-19] MEDS: Baclofen 10 MG Tablet NG ×3 (04:38→21:16)
[2018-02-19] MEDS: Famotidine 20 MG Tablet 40 MG NG (04:38)
[2018-02-19] MEDS: Enoxaparin 40 MG/0.4 ML Syringe SC (04:38)
[2018-02-19] MEDS: Lacosamide Solution 100 MG/10 ML UDC 200 MG NG ×2 (04:48→18:19)
--- NOTE | 2018-02-19 04:55 | NURSING ---
Peg placement verified via auscultation, no residual noted. No complaints or concerns voiced from pt.
[2018-02-19 07:10] LABS: Bedside Glucose 125 mg/dL (70-110)
[2018-02-19 10:00] VITALS: PULSE 62; RESP 18; O2SAT 96
[2018-02-19 11:41] LABS: Bedside Glucose 93 mg/dL (70-110)
--- NOTE | 2018-02-19 13:37 | CASEMGMT ---
Insurance Clinical information faxed. Pending continued stay approval at this time. Auth#[id number] Guillermina PANTOJA, AUTOMOTIVE PRODUCT ENGINEER
--- NOTE | 2018-02-19 14:27 | CASEMGMT ---
Insurance Continued stay approved with next update due on 02/26/18 Auth#[id number] Guillermina PANTOJA, LABELING ASSOCIATE
--- NOTE | 2018-02-19 14:38 | NURSING ---
Ped tube verified for placement, zero residual noted at this time
[2018-02-19 15:49] VITALS: BP 117/78; PULSE 57; RESP 16; TEMP 36.7; O2SAT 98
[2018-02-19 17:00] LABS: Bedside Glucose 105 mg/dL (70-110)
--- NOTE | 2018-02-19 18:05 | NURSING ---
Peg tube placement verified for placement, zero residual noted at this time
[2018-02-19 18:17] VITALS: PULSE 68
[2018-02-19] MEDS: MELATONIN 3 MG TABLET NG (21:16)
[2018-02-19] MEDS: QUEtiapine 25 MG Tablet 12.5 MG NG (21:16)
[2018-02-20 00:15] LABS: Bedside Glucose 120 mg/dL (70-110)
[2018-02-20] MEDS: Jevity 1.5 1,000 ML 60 ML NG ×2 (01:35→22:23)
[2018-02-20] MEDS: Lacosamide Solution 100 MG/10 ML UDC 200 MG NG ×2 (05:17→16:29)
[2018-02-20 05:18] VITALS: BP 122/79; PULSE 67
[2018-02-20] MEDS: Metoprolol Tartrate 25 MG Tablet NG ×2 (05:18→16:28)
[2018-02-20] MEDS: Baclofen 10 MG Tablet NG ×3 (05:18→22:11)
[2018-02-20] MEDS: Venlafaxine HCl 75 MG Tablet NG ×2 (05:18→16:28)
[2018-02-20] MEDS: Loratadine 10 MG Tablet NG (05:18)
[2018-02-20] MEDS: Famotidine 20 MG Tablet 40 MG NG (05:18)
[2018-02-20] MEDS: busPIRone 5 MG Tablet 10 MG NG ×2 (05:19→16:28)
[2018-02-20] MEDS: Enoxaparin 40 MG/0.4 ML Syringe SC (05:40)
[2018-02-20] MEDS: Menthol/Lanolin/Calamine/Znox 113 GM Tube 1 APPLIC TOPICAL ×2 (05:42→22:11)
[2018-02-20] MEDS: Fluticasone/Salmeterol 232-14 Inhaler 1 PUFF IH ×2 (05:42→16:28)
--- NOTE | 2018-02-20 05:45 | NURSING ---
Addendum entered by Myriam Jenkins 02/20/18 10:12: Dr Puga updated, new order entered for hydrocortisone cream Original Note: pt has rash to CARMEN states no pain, itchness off and on, warm to touch. area was blaching during this time
[2018-02-20 07:01] LABS: Bedside Glucose 97 mg/dL (70-110)
[2018-02-20 11:21] LABS: Bedside Glucose 99 mg/dL (70-110)
--- NOTE | 2018-02-20 12:06 | MDS.RN ---
Information for the mds was obtained from review of the clinical record, interview of resident, staff, and direct observation of resident's care.
[2018-02-20 15:03] VITALS: PULSE 61; RESP 16; O2SAT 95
[2018-02-20 15:38] VITALS: BP 103/60; PULSE 64; RESP 18; TEMP 36.6; O2SAT 90
[2018-02-20 16:28] VITALS: PULSE 64
[2018-02-20] MEDS: Hydrocortisone 2.5% Crm 1 APPLIC TOPICAL (16:29)
[2018-02-20] MEDS: Acetaminophen 650 MG/20 ML UDC NG (16:29)
[2018-02-20 17:16] LABS: Bedside Glucose 106 mg/dL (70-110)
[2018-02-20] MEDS: MELATONIN 3 MG TABLET NG (22:11)
[2018-02-20] MEDS: QUEtiapine 25 MG Tablet 12.5 MG NG (22:12)
[2018-02-21 00:26] LABS: Bedside Glucose 107 mg/dL (70-110)
[2018-02-21 05:06] VITALS: BP 121/76; PULSE 63
[2018-02-21] MEDS: Metoprolol Tartrate 25 MG Tablet NG (05:06)
[2018-02-21] MEDS: Lacosamide Solution 100 MG/10 ML UDC 200 MG NG (05:07)
[2018-02-21] MEDS: busPIRone 5 MG Tablet 10 MG NG (05:12)
[2018-02-21] MEDS: Baclofen 10 MG Tablet NG ×2 (05:12→14:59)
[2018-02-21] MEDS: Loratadine 10 MG Tablet NG (05:12)
[2018-02-21] MEDS: Famotidine 20 MG Tablet 40 MG NG (05:12)
[2018-02-21] MEDS: Venlafaxine HCl 75 MG Tablet NG (05:12)
[2018-02-21] MEDS: Hydrocortisone 2.5% Crm 1 APPLIC TOPICAL ×2 (05:13→18:18)
[2018-02-21] MEDS: Menthol/Lanolin/Calamine/Znox 113 GM Tube 1 APPLIC TOPICAL ×2 (05:13→22:05)
[2018-02-21] MEDS: Fluticasone/Salmeterol 232-14 Inhaler 1 PUFF IH ×2 (05:15→18:17)
[2018-02-21] MEDS: Enoxaparin 40 MG/0.4 ML Syringe SC (05:17)
[2018-02-21 06:30] LABS: Bedside Glucose 128 mg/dL (70-110)
--- NOTE | 2018-02-21 07:24 | NURSING ---
Jevity hung no residual, placement verified, flushed with 60cc sterile water. HOB at 30 degrees and dressing changed small amount of drainage no odor noted. Pt tolerated well no concerns voiced at this time
[2018-02-21] MEDS: Acetaminophen 650 MG/20 ML UDC NG (10:06)
--- NOTE | 2018-02-21 10:15 | NURSING ---
TUBING PLACEMENT VERIFIED, 0 RESIDUAL,60CC FLUSHED.WITH PAIN MEDS. HOB 30 DEGREES. MOUTH CARE GIVEN. PT RESTING COMFORTABLY. NO COMPLANTS OR CONCERNS VOICED.
[2018-02-21 11:56] LABS: Bedside Glucose 109 mg/dL (70-110)
[2018-02-21 15:35] VITALS: BP 111/70; PULSE 58; RESP 16; TEMP 37.2; O2SAT 96
[2018-02-21] MEDS: busPIRone 5 MG Tablet 10 MG GT (18:23)
[2018-02-21] MEDS: Venlafaxine HCl 75 MG Tablet GT (18:23)
[2018-02-21 18:24] VITALS: BP 111/70; PULSE 71
[2018-02-21] MEDS: Metoprolol Tartrate 25 MG Tablet GT (18:24)
[2018-02-21] MEDS: Lacosamide Solution 100 MG/10 ML UDC 200 MG GT (18:27)
[2018-02-21] MEDS: Jevity 1.5 1,000 ML 60 ML NG (18:30)
[2018-02-21 18:40] VITALS: PULSE 71
--- NOTE | 2018-02-21 18:42 | NURSING ---
PEG TUBE PLACEMENT VERIFIED, O RESIDUAL, 60CC FLUSH. HOB 30 DEGREES. NO COMPLAINTS OR CONCERNS VOICED.
[2018-02-21] MEDS: Baclofen 10 MG Tablet GT (22:04)
[2018-02-21] MEDS: QUEtiapine 25 MG Tablet 12.5 MG GT (22:04)
[2018-02-21] MEDS: MELATONIN 3 MG TABLET GT (22:04)
[2018-02-21 22:15] VITALS: PULSE 76; O2SAT 98
[2018-02-22 00:41] LABS: Bedside Glucose 101 mg/dL (70-110)
[2018-02-22] MEDS: busPIRone 5 MG Tablet 10 MG GT ×2 (05:05→18:52)
[2018-02-22] MEDS: Famotidine 20 MG Tablet 40 MG GT (05:05)
[2018-02-22] MEDS: Lacosamide Solution 100 MG/10 ML UDC 200 MG GT ×2 (05:05→18:50)
[2018-02-22] MEDS: Baclofen 10 MG Tablet GT ×3 (05:05→21:01)
[2018-02-22 05:06] VITALS: BP 122/69; PULSE 65
[2018-02-22] MEDS: Metoprolol Tartrate 25 MG Tablet GT ×2 (05:06→18:50)
[2018-02-22] MEDS: Venlafaxine HCl 75 MG Tablet GT ×2 (05:06→18:51)
[2018-02-22] MEDS: Loratadine 10 MG Tablet GT (05:06)
[2018-02-22] MEDS: Hydrocortisone 2.5% Crm 1 APPLIC TOPICAL ×2 (05:07→18:51)
[2018-02-22] MEDS: Enoxaparin 40 MG/0.4 ML Syringe SC (05:08)
[2018-02-22] MEDS: Fluticasone/Salmeterol 232-14 Inhaler 1 PUFF IH ×2 (05:28→18:52)
[2018-02-22] MEDS: Menthol/Lanolin/Calamine/Znox 113 GM Tube 1 APPLIC TOPICAL ×2 (05:29→21:01)
[2018-02-22 07:11] LABS: Bedside Glucose 94 mg/dL (70-110)
[2018-02-22 07:16] LABS: Absolute Lymphocyte Count 1.45 X10^3/ul (0.83-4.51); Absolute Neutrophil Count 4.5 X10^3/uL (2.0-7.7); Basophil# 0.06 X10^3/uL; Basophil% 0.8 % (0-1); Eosinophil# 0.88 X10^3/uL; Eosinophils% 11.8 % (0-5); Hematocrit 39.1 % (40-54); Lymphocyte # 1.45 X10^3/ul (4.0); Lymphocyte % 19.5 % (19-41); Mean Corp Hgb Conc 33.2 g/gl (32-36); Mean Corpuscular Hgb 32.7 pg (27.0-32.0); Mean Corpuscular Volume 98.5 fL (80-94); Mean Platelet Vol. 9.1 fl (6.2-12.0); Monocyte# 0.54 X10^3/uL; Monocyte% 7.2 % (0-10); Neutrophil # 4.48 X10^3/uL (2.7-7.7); Neutrophil % 60.2 % (47-70); Platelet Count 344 K/mm3 (150-450); RBC Distribution Width CV 15.5 % (11.6-14.6); RBC Distribution Width SD 53.9 fl (35.1-43.9); Red Blood Count 3.97 M/mm3 (4.6-6.2); White Blood Count 7.5 K/mm3 (4.4-11.0)
[2018-02-22 07:19] LABS: POSITIVE COUNT NO; POSITIVE DIFFERENTIAL NO; POSITIVE MORPHOLOGY NO
[2018-02-22 07:31] LABS: Anion Gap 7 (5-15); BUN 15 mg/dL (7-18); BUN/Creat Ratio 28.4 RATIO (10-20); Chloride 106 mmol/L (98-107); Creatinine, Serum 0.53 mg/dL (0.70-1.30); EST Glomerular Filtration Rate 173 mL/min (>60); Est Glom Filt Rate - Afr Amer 209 mL/min (>60); Estimated Creatinine Clearance 139.61 ml/min; Glucose 95 mg/dL (74-106); Sodium Level 144 mmol/L (136-145)
--- NOTE | 2018-02-22 07:46 | NURSING ---
Jevity running at 60 ml/ hr with 175 flushed q 4 hrs, no residual, placement verified, flushed with 60cc sterile water. HOB at 30 degrees and dressing changed no drainage noted. Pt tolerated well no concerns voiced at this time
[2018-02-22 11:50] LABS: Bedside Glucose 101 mg/dL (70-110)
[2018-02-22] MEDS: Acetaminophen 650 MG/20 ML UDC GT (12:59)
[2018-02-22] MEDS: Jevity 1.5 1,000 ML 60 ML NG (14:39)
[2018-02-22 16:00] VITALS: BP 119/69; PULSE 58; RESP 16; TEMP 36.7; O2SAT 100
[2018-02-22 17:06] LABS: Bedside Glucose 101 mg/dL (70-110)
[2018-02-22] MEDS: 0.9% Saline Lock 10 ML Syringe IV (18:28)
[2018-02-22 18:50] VITALS: BP 119/69; PULSE 58
[2018-02-22 20:05] VITALS: PULSE 84; RESP 18; O2SAT 95
--- NOTE | 2018-02-22 20:10 | NURSING ---
Addendum entered by Gabriela Reyes 02/23/18 00:03: Pt continues to c/o pain to legs and buttocks. Fredy NIGHT SHIFT notified and new order for oxyir 5mg Q4H. Will continue to monitor. Original Note: Pt c/o increased pain. Pt only had IV pain med, Fredy LOZA notified and new order for oxyir 5mg Q6H PRN severe pain.
[2018-02-22] MEDS: oxyCODONE 5 MG Tablet GT (21:02)
[2018-02-22] MEDS: QUEtiapine 25 MG Tablet 12.5 MG GT (21:02)
[2018-02-22] MEDS: LORazepam 0.5 MG Tablet GT (21:02)
[2018-02-22] MEDS: MELATONIN 3 MG TABLET GT (21:02)
[2018-02-22] MEDS: Ondansetron ODT 4 MG Tablet 8 MG GT (22:45)
[2018-02-23 00:46] LABS: Bedside Glucose 102 mg/dL (70-110)
[2018-02-23] MEDS: oxyCODONE 5 MG Tablet GT ×5 (01:10→19:36)
[2018-02-23] MEDS: busPIRone 5 MG Tablet 10 MG GT ×2 (05:27→18:11)
[2018-02-23] MEDS: Loratadine 10 MG Tablet GT (05:28)
[2018-02-23] MEDS: Menthol/Lanolin/Calamine/Znox 113 GM Tube 1 APPLIC TOPICAL ×2 (05:28→19:35)
[2018-02-23] MEDS: Venlafaxine HCl 75 MG Tablet GT ×2 (05:29→18:11)
[2018-02-23] MEDS: Fluticasone/Salmeterol 232-14 Inhaler 1 PUFF IH ×2 (05:29→18:17)
[2018-02-23] MEDS: Hydrocortisone 2.5% Crm 1 APPLIC TOPICAL ×2 (05:29→18:05)
[2018-02-23 05:30] VITALS: BP 118/64; PULSE 68
[2018-02-23] MEDS: Enoxaparin 40 MG/0.4 ML Syringe SC (05:30)
[2018-02-23] MEDS: Baclofen 10 MG Tablet GT ×3 (05:30→19:37)
[2018-02-23] MEDS: Metoprolol Tartrate 25 MG Tablet GT ×2 (05:30→18:11)
[2018-02-23] MEDS: Famotidine 20 MG Tablet 40 MG GT (05:31)
[2018-02-23] MEDS: Lacosamide Solution 100 MG/10 ML UDC 200 MG GT ×2 (05:31→19:35)
[2018-02-23 07:01] LABS: Bedside Glucose 123 mg/dL (70-110)
[2018-02-23 10:00] VITALS: PULSE 80; RESP 18; O2SAT 97
[2018-02-23] MEDS: Jevity 1.5 1,000 ML 60 ML NG (11:54)
[2018-02-23 11:56] LABS: Bedside Glucose 101 mg/dL (70-110)
[2018-02-23 16:00] VITALS: BP 113/74; PULSE 56; RESP 16; TEMP 36.8; O2SAT 97
[2018-02-23 17:06] LABS: Bedside Glucose 108 mg/dL (70-110)
[2018-02-23 18:11] VITALS: PULSE 68
[2018-02-23] MEDS: Acetaminophen 650 MG/20 ML UDC GT (19:36)
[2018-02-23] MEDS: QUEtiapine 25 MG Tablet 12.5 MG GT (19:36)
[2018-02-23] MEDS: MELATONIN 3 MG TABLET GT (19:36)
[2018-02-24] MEDS: oxyCODONE 5 MG Tablet GT ×3 (00:22→13:39)
[2018-02-24 00:45] LABS: Bedside Glucose 86 mg/dL (70-110)
[2018-02-24] MEDS: Fluticasone/Salmeterol 232-14 Inhaler 1 PUFF IH ×2 (05:37→17:53)
[2018-02-24] MEDS: Menthol/Lanolin/Calamine/Znox 113 GM Tube 1 APPLIC TOPICAL ×2 (05:37→21:40)
[2018-02-24] MEDS: busPIRone 5 MG Tablet 10 MG GT ×2 (05:37→17:56)
[2018-02-24] MEDS: Loratadine 10 MG Tablet GT (05:37)
[2018-02-24] MEDS: Venlafaxine HCl 75 MG Tablet GT ×2 (05:37→17:56)
[2018-02-24 05:38] VITALS: PULSE 70
[2018-02-24] MEDS: Famotidine 20 MG Tablet 40 MG GT (05:38)
[2018-02-24] MEDS: Metoprolol Tartrate 25 MG Tablet GT ×2 (05:38→18:05)
[2018-02-24] MEDS: Baclofen 10 MG Tablet GT ×3 (05:38→21:41)
[2018-02-24] MEDS: Hydrocortisone 2.5% Crm 1 APPLIC TOPICAL ×2 (05:38→17:54)
[2018-02-24] MEDS: Enoxaparin 40 MG/0.4 ML Syringe SC (05:38)
[2018-02-24] MEDS: Acetaminophen 650 MG/20 ML UDC GT (05:39)
[2018-02-24] MEDS: Lacosamide Solution 100 MG/10 ML UDC 200 MG GT ×2 (05:43→18:03)
[2018-02-24 07:06] LABS: Bedside Glucose 114 mg/dL (70-110)
[2018-02-24] MEDS: Jevity 1.5 1,000 ML 60 ML NG (08:09)
--- NOTE | 2018-02-24 08:20 | NURSING ---
NEW JEVITY AND TUBING HUNG. 0 RESIDUAL, 60 FLUSH, HOB 30 DEGREES. PT RESTING COMFORTABLY. NO COMPLAINTS OR CONCERNS VOICED.
[2018-02-24 11:31] LABS: Bedside Glucose 119 mg/dL (70-110)
[2018-02-24 13:30] VITALS: PULSE 68; RESP 18; O2SAT 93
[2018-02-24 15:37] VITALS: BP 101/49; PULSE 59; RESP 16; TEMP 36.6; O2SAT 97
[2018-02-24 17:05] LABS: Bedside Glucose 94 mg/dL (70-110)
[2018-02-24 18:05] VITALS: BP 106/63; PULSE 61
--- NOTE | 2018-02-24 18:12 | NURSING ---
PLACEMENT VERIFIED,0 RESIDUAL, FLUSH 60 CC. HOB 30 DEGREES. PT RESTING COMFORTABLY, NO COMPLAINTS OR CONCERNS VOICED.
[2018-02-24] MEDS: QUEtiapine 25 MG Tablet 12.5 MG GT (21:41)
[2018-02-24] MEDS: MELATONIN 3 MG TABLET GT (21:42)
[2018-02-25 00:10] LABS: Bedside Glucose 104 mg/dL (70-110)
[2018-02-25] MEDS: Jevity 1.5 1,000 ML 60 ML NG (04:10)
[2018-02-25] MEDS: Venlafaxine HCl 75 MG Tablet GT ×2 (06:13→18:36)
[2018-02-25] MEDS: Menthol/Lanolin/Calamine/Znox 113 GM Tube 1 APPLIC TOPICAL ×2 (06:13→22:21)
[2018-02-25] MEDS: busPIRone 5 MG Tablet 10 MG GT ×2 (06:13→18:36)
[2018-02-25] MEDS: Famotidine 20 MG Tablet 40 MG GT (06:14)
[2018-02-25] MEDS: Loratadine 10 MG Tablet GT (06:15)
[2018-02-25] MEDS: Fluticasone/Salmeterol 232-14 Inhaler 1 PUFF IH ×2 (06:16→18:35)
[2018-02-25] MEDS: Hydrocortisone 2.5% Crm 1 APPLIC TOPICAL ×2 (06:16→18:35)
[2018-02-25] MEDS: Baclofen 10 MG Tablet GT ×3 (06:16→22:17)
[2018-02-25] MEDS: Enoxaparin 40 MG/0.4 ML Syringe SC (06:17)
[2018-02-25] MEDS: Lacosamide Solution 100 MG/10 ML UDC 200 MG GT ×2 (06:17→18:35)
[2018-02-25 06:18] VITALS: BP 116/71; PULSE 60
[2018-02-25] MEDS: Metoprolol Tartrate 25 MG Tablet GT ×2 (06:18→18:36)
[2018-02-25 06:55] LABS: Bedside Glucose 116 mg/dL (70-110)
[2018-02-25 07:41] VITALS: PULSE 64; RESP 18; O2SAT 98
[2018-02-25] MEDS: Acetaminophen 650 MG/20 ML UDC GT ×2 (10:36→18:34)
[2018-02-25 11:41] LABS: Bedside Glucose 124 mg/dL (70-110)
--- NOTE | 2018-02-25 14:29 | NURSING ---
Addendum entered by Myriam Jenkins 02/25/18 15:04: SAVANA Lake returned call and pt is to be admitted 02/26 between 11am & 1pm instead of 02/27. Surgery will be on 02/28 approx 0715. Family request that pt go by WC not cot via transport team. secretary of state to call and get set up for parts picker Original Note: Addendum entered by Myriam Jenkins 02/25/18 14:46: SAVANA Lake called back with orders to hold lovenox 02/26 & 02/27, but continue all other meds except blood thinners. gave admitting number to call for any additional orders but no answer, busy signal. Original Note: message left with [facility] Rebolledo ([facility] office [phone] preop orders for crani flap scheduled on 02/28/18. awaiting return call.
[2018-02-25 15:25] VITALS: BP 100/67; PULSE 64; RESP 18; TEMP 37.1; O2SAT 99
--- NOTE | 2018-02-25 15:25 | CASEMGMT ---
Brief interview for mental status (BIMS) and resident mood interview (PHQ-9) completed on this day. BIMS score 1515. PHQ-9 score 10/22
[2018-02-25 17:01] LABS: Bedside Glucose 93 mg/dL (70-110)
[2018-02-25 18:36] VITALS: BP 100/67; PULSE 64
--- NOTE | 2018-02-25 19:13 | NURSING ---
VERIFIED PLACEMENT,0 RESIDUAL,PAIN MED GIVEN, 60CC FLUSH. HOB 30 DEGREES. PT RESTING COMFORTABLY,NO COMPLAINTS OR CONCERNS VOICED.
[2018-02-25] MEDS: QUEtiapine 25 MG Tablet 12.5 MG GT (22:17)
[2018-02-25] MEDS: MELATONIN 3 MG TABLET GT (22:18)
[2018-02-26 00:06] LABS: Bedside Glucose 104 mg/dL (70-110)
[2018-02-26] MEDS: Jevity 1.5 1,000 ML 60 ML NG (00:35)
[2018-02-26 04:56] VITALS: BP 106/69; PULSE 66
[2018-02-26] MEDS: Metoprolol Tartrate 25 MG Tablet GT (04:56)
[2018-02-26] MEDS: Famotidine 20 MG Tablet 40 MG GT (04:56)
[2018-02-26] MEDS: Baclofen 10 MG Tablet GT (04:56)
[2018-02-26] MEDS: Venlafaxine HCl 75 MG Tablet GT (04:57)
[2018-02-26] MEDS: Loratadine 10 MG Tablet GT (04:57)
[2018-02-26] MEDS: busPIRone 5 MG Tablet 10 MG GT (04:57)
[2018-02-26] MEDS: Hydrocortisone 2.5% Crm 1 APPLIC TOPICAL (05:02)
[2018-02-26] MEDS: Lacosamide Solution 100 MG/10 ML UDC 200 MG GT (05:07)
[2018-02-26] MEDS: Menthol/Lanolin/Calamine/Znox 113 GM Tube 1 APPLIC TOPICAL (05:14)
[2018-02-26] MEDS: Fluticasone/Salmeterol 232-14 Inhaler 1 PUFF IH (05:19)
[2018-02-26 05:20] VITALS: PULSE 66; RESP 16; O2SAT 94
[2018-02-26 07:01] LABS: Bedside Glucose 103 mg/dL (70-110)
--- NOTE | 2018-02-26 07:46 | NURSING ---
Meds given via GT, no residual, flushed before and after med administration. pt resting in bed, HOB elevated 30 degrees
--- NOTE | 2018-02-26 08:29 | PCM.DC ---
- Discharge Diagnoses Current Active Problems: Current Active and Chronic Problems (This Medical Record has been edited. Action required.) Aortic dissection (Acute) Acute right MCA stroke (Acute) Left hemiplegia (Acute) Acute kidney injury (Acute) Kidney stones (Chronic) Hypertension (Chronic) Asthma (Chronic) Seizure disorder (Acute) Dysphagia (Acute) Vocal cord paralysis (Acute) Depression (Chronic) Dysphagia (Acute) Reason(s) for Visit for Discharge Instructions: 52 year old male with below past medical history significant for aortic dissection, right MCA stroke requiring craniotomy, hospitalized for H. Flu/aspiration pneumonia, admitted to TCU with debility, here for rehabilitation, strengthening, prior to discharge to [facility] on 02/26/18 for vocal cord repair, plate placement in head. You will use the following diet at home:: Other - tube feeds Discharge Activity: - - utilize helmet for protection Allergies/Adverse Reactions: Allergies cat dander Allergy (Verified 02/07/18 17:19) Unknown grass pollen Allergy (Verified 02/07/18 17:19) Itching Medications to take at Discharge Albuterol Sulfate [Proair Hfa] 1 puff INHALATION BID PRN 04/01/15 Fluticasone 110 Mcg [Flovent 110 Mcg] 2 puff INHALATION BID 04/01/15 Albuterol IH (ProAir) [Proair Hfa] 2 puff INHALATION Q6H PRN PRN 10/07/17 Budesonide/Formoterol 80-4.5 [Symbicort 80-4.5 Mcg Inhaler] 2 puff INHALATION BID 10/07/17 Acetaminophen Liquid [Tylenol Liquid] 650 mg GT Q6H PRN PRN udc 02/26/18 Acetylcysteine [Mucomyst] 400 mg INHALATION Q6H.RT PRN vial.neb. 02/26/18 Baclofen [Lioresal] 10 mg GT TID tablet 02/26/18 Famotidine [Pepcid] 40 mg GT DAILY tablet 02/26/18 Fluticasone/Salmeterol [Fluticasone-Salmeterol 232-14] 1 puff IH Q12 inhaler 02/26/18 Hydrocortisone 2.5% Crm [Hytone] 1 applic TOPICAL BID tube 02/26/18 Ipratropium/Albuterol Sulfate [Duoneb] 3 ml INHALATION Q4H.RT PRN ampul.neb 02/26/18 Lacosamide Solution [Vimpat Solution] 200 mg GT BID udc 02/26/18 Loratadine [Claritin] 10 mg GT DAILY tablet 02/26/18 Lorazepam [Ativan] 0.5 mg GT Q6H PRN PRN tablet 02/26/18 Melatonin 3 mg GT QHS tablet 02/26/18 Menthol/Lanolin/Calamine/Znox [Calmoseptine Ointment] 1 applic TOPICAL 0600,2200 tube 02/26/18 Metoprolol Tartrate [Lopressor (beta john)] 25 mg GT BID tablet 02/26/18 Mineral Oil 1 bottle RECTAL DAILY PRN enema 02/26/18 Ondansetron [Zofran Odt] 8 mg GT Q8H PRN PRN tablet 02/26/18 Oxycodone [Oxyir] 5 mg GT Q4H PRN PRN 7 Days tablet 02/26/18 Polyethylene Glycol 3350 [Miralax] 17 gm GT DAILY PRN packet 02/26/18 Quetiapine Fumarate [Seroquel] 12.5 mg GT QHS tablet 02/26/18 Senna [Senokot] 1 tablet GT BID PRN tablet 02/26/18 Venlafaxine HCl [Effexor] 75 mg GT BID tablet 02/26/18 busPIRone [Buspar] 10 mg GT BID tablet 02/26/18 Primary Care Physician: Fredy Beth MD [Primary Care Provider] - Please follow up with your Primary Care Physician in: 1 week after d/c frm [facility] Test Results: Test results from this visit will be discussed in further detail at your follow-up appointment, if applicable. Please Follow Up With: Shabbir Pace Please Follow Up With: Dash Woodard Please Follow Up With: Jamie Moreno Proposed Discharge Date: 02/26/18
--- NOTE | 2018-02-26 08:33 | DCINST_ITS ---
- Discharge Diagnoses Current Active Problems: Current Active and Chronic Problems (This Medical Record has been edited. Action required.) Aortic dissection (Acute) Acute right MCA stroke (Acute) Left hemiplegia (Acute) Acute kidney injury (Acute) Kidney stones (Chronic) Hypertension (Chronic) Asthma (Chronic) Seizure disorder (Acute) Dysphagia (Acute) Vocal cord paralysis (Acute) Depression (Chronic) Dysphagia (Acute) Reason(s) for Visit for Discharge Instructions: 52 year old male with below past medical history significant for aortic dissection, right MCA stroke requiring craniotomy, hospitalized for H. Flu/aspiration pneumonia, admitted to TCU with debility, here for rehabilitation, strengthening, prior to discharge to [facility] on 02/26/18 for vocal cord repair, plate placement in head. You will use the following diet at home:: Other - tube feeds Discharge Activity: - - utilize helmet for protection Allergies/Adverse Reactions: Allergies cat dander Allergy (Verified 02/07/18 17:19) Unknown grass pollen Allergy (Verified 02/07/18 17:19) Itching Medications to take at Discharge Albuterol Sulfate [Proair Hfa] 1 puff INHALATION BID PRN 04/01/15 Fluticasone 110 Mcg [Flovent 110 Mcg] 2 puff INHALATION BID 04/01/15 Albuterol IH (ProAir) [Proair Hfa] 2 puff INHALATION Q6H PRN PRN 10/07/17 Budesonide/Formoterol 80-4.5 [Symbicort 80-4.5 Mcg Inhaler] 2 puff INHALATION BID 10/07/17 Acetaminophen Liquid [Tylenol Liquid] 650 mg GT Q6H PRN PRN udc 02/26/18 Acetylcysteine [Mucomyst] 400 mg INHALATION Q6H.RT PRN vial.neb. 02/26/18 Baclofen [Lioresal] 10 mg GT TID tablet 02/26/18 Famotidine [Pepcid] 40 mg GT DAILY tablet 02/26/18 Fluticasone/Salmeterol [Fluticasone-Salmeterol 232-14] 1 puff IH Q12 inhaler Hydrocortisone 2.5% Crm [Hytone] 1 applic TOPICAL BID tube 02/26/18 Ipratropium/Albuterol Sulfate [Duoneb] 3 ml INHALATION Q4H.RT PRN ampul.neb 08/15 Lacosamide Solution [Vimpat Solution] 200 mg GT BID udc 02/26/18 Loratadine [Claritin] 10 mg GT DAILY tablet 02/26/18 Lorazepam [Ativan] 0.5 mg GT Q6H PRN PRN tablet 02/26/18 Melatonin 3 mg GT QHS tablet 02/26/18 Menthol/Lanolin/Calamine/Znox [Calmoseptine Ointment] 1 applic TOPICAL 0600, 2200 tube 02/26/18 Metoprolol Tartrate [Lopressor (beta john)] 25 mg GT BID tablet 02/26/18 Mineral Oil 1 bottle RECTAL DAILY PRN enema 02/26/18 Ondansetron [Zofran Odt] 8 mg GT Q8H PRN PRN tablet 02/26/18 Oxycodone [Oxyir] 5 mg GT Q4H PRN PRN 7 Days tablet 02/26/18 Polyethylene Glycol 3350 [Miralax] 17 gm GT DAILY PRN packet 02/26/18 Quetiapine Fumarate [Seroquel] 12.5 mg GT QHS tablet 02/26/18 Senna [Senokot] 1 tablet GT BID PRN tablet 02/26/18 Venlafaxine HCl [Effexor] 75 mg GT BID tablet 02/26/18 busPIRone [Buspar] 10 mg GT BID tablet 02/26/18 Primary Care Physician: Fredy Beth MD [Primary Care Provider] - Please follow up with your Primary Care Physician in: 1 week after d/c frm [facility] Test Results: Test results from this visit will be discussed in further detail at your follow- up appointment, if applicable. Please Follow Up With: Shabbir Pace Please Follow Up With: Dash Woodard Please Follow Up With: Jamie Moreno Proposed Discharge Date: 02/26/18
--- NOTE | 2018-02-26 08:34 | PCM.DC.SUM ---
Discharge Date and Diagnosis - Problem List Patient Problems: Active and Suspected Problems (This Medical Record has been edited. Action required.) Aortic dissection (Acute) Acute right MCA stroke (Acute) Left hemiplegia (Acute) Acute kidney injury (Acute) Seizure disorder (Acute) Dysphagia (Acute) Vocal cord paralysis (Acute) Dysphagia (Acute) Date of Admission: 02/07/18 Date of Discharge: 02/26/18 - Primary Discharge Diagnosis Active and Suspected Problems (This Medical Record has been edited. Action required.) Aortic dissection (Acute) Acute right MCA stroke (Acute) Left hemiplegia (Acute) Acute kidney injury (Acute) Seizure disorder (Acute) Dysphagia (Acute) Vocal cord paralysis (Acute) Dysphagia (Acute) - Secondary Discharge Diagnosis Chronic Problems (This Medical Record has been edited. Action required.) Kidney stones (Chronic) Hypertension (Chronic) Asthma (Chronic) Depression (Chronic) Hospital Course and Treatment Imaging Results: 02/18/18 02/19/18 02/19/18 23:49 06:44 11:23 WBC RBC Hgb Hct MCV MCH MCHC RDW RDW Differential Plt Count MPV Immature Gran % (Auto) Neut % (Auto) Lymph % (Auto) [place] % (Auto) Eos % (Auto) Baso % (Auto) Absolute Neuts (auto) Absolute Lymphs (auto) Total Counted Sodium Potassium Chloride Carbon Dioxide Anion Gap BUN Creatinine Estim Creat Clear Calc Est GFR (MDRD) Af Amer Est GFR (MDRD) Non-Af BUN/Creatinine Ratio Glucose Calcium POC Glucose 103 125 H 93 02/19/18 02/20/18 02/20/18 16:55 00:07 06:39 WBC RBC Hgb Hct MCV MCH MCHC RDW RDW Differential Plt Count MPV Immature Gran % (Auto) Neut % (Auto) Lymph % (Auto) [place] % (Auto) Eos % (Auto) Baso % (Auto) Absolute Neuts (auto) Absolute Lymphs (auto) Total Counted Sodium Potassium Chloride Carbon Dioxide Anion Gap BUN Creatinine Estim Creat Clear Calc Est GFR (MDRD) Af Amer Est GFR (MDRD) Non-Af BUN/Creatinine Ratio Glucose Calcium POC Glucose 105 120 H 97 02/20/18 02/20/18 02/21/18 11:12 17:05 00:18 WBC RBC Hgb Hct MCV MCH MCHC RDW RDW Differential Plt Count MPV Immature Gran % (Auto) Neut % (Auto) Lymph % (Auto) [place] % (Auto) Eos % (Auto) Baso % (Auto) Absolute Neuts (auto) Absolute Lymphs (auto) Total Counted Sodium Potassium Chloride Carbon Dioxide Anion Gap BUN Creatinine Estim Creat Clear Calc Est GFR (MDRD) Af Amer Est GFR (MDRD) Non-Af BUN/Creatinine Ratio Glucose Calcium POC Glucose 99 106 107 02/21/18 02/21/18 02/22/18 06:13 11:35 00:35 WBC RBC Hgb Hct MCV MCH MCHC RDW RDW Differential Plt Count MPV Immature Gran % (Auto) Neut % (Auto) Lymph % (Auto) [place] % (Auto) Eos % (Auto) Baso % (Auto) Absolute Neuts (auto) Absolute Lymphs (auto) Total Counted Sodium Potassium Chloride Carbon Dioxide Anion Gap BUN Creatinine Estim Creat Clear Calc Est GFR (MDRD) Af Amer Est GFR (MDRD) Non-Af BUN/Creatinine Ratio Glucose Calcium POC Glucose 128 H 109 101 02/22/18 02/22/18 02/22/18 06:43 06:43 06:43 WBC 7.5 RBC 3.97 L Hgb 13.0 Hct 39.1 L MCV 98.5 H MCH 32.7 H MCHC 33.2 RDW 15.5 H RDW Differential 53.9 H Plt Count 344 MPV 9.1 Immature Gran % (Auto) 0.500 Neut % (Auto) 60.2 Lymph % (Auto) 19.5 [place] % (Auto) 7.2 Eos % (Auto) 11.8 H Baso % (Auto) 0.8 Absolute Neuts (auto) 4.5 Absolute Lymphs (auto) 1.45 Total Counted Not Reportable Sodium 144 Potassium 4.0 Chloride 106 Carbon Dioxide 31.0 Anion Gap 7 BUN 15 Creatinine 0.53 L Estim Creat Clear Calc 139.61 Est GFR (MDRD) Af Amer 209 Est GFR (MDRD) Non-Af 173 BUN/Creatinine Ratio 28.4 H Glucose 95 Calcium 9.0 POC Glucose 94 02/22/18 02/22/18 02/23/18 11:27 16:49 00:35 WBC RBC Hgb Hct MCV MCH MCHC RDW RDW Differential Plt Count MPV Immature Gran % (Auto) Neut % (Auto) Lymph % (Auto) [place] % (Auto) Eos % (Auto) Baso % (Auto) Absolute Neuts (auto) Absolute Lymphs (auto) Total Counted Sodium Potassium Chloride Carbon Dioxide Anion Gap BUN Creatinine Estim Creat Clear Calc Est GFR (MDRD) Af Amer Est GFR (MDRD) Non-Af BUN/Creatinine Ratio Glucose Calcium POC Glucose 101 101 102 02/23/18 02/23/18 02/23/18 06:41 11:50 17:01 WBC RBC Hgb Hct MCV MCH MCHC RDW RDW Differential Plt Count MPV Immature Gran % (Auto) Neut % (Auto) Lymph % (Auto) [place] % (Auto) Eos % (Auto) Baso % (Auto) Absolute Neuts (auto) Absolute Lymphs (auto) Total Counted Sodium Potassium Chloride Carbon Dioxide Anion Gap BUN Creatinine Estim Creat Clear Calc Est GFR (MDRD) Af Amer Est GFR (MDRD) Non-Af BUN/Creatinine Ratio Glucose Calcium POC Glucose 123 H 101 108 02/24/18 02/24/18 02/24/18 00:32 06:35 11:24 WBC RBC Hgb Hct MCV MCH MCHC RDW RDW Differential Plt Count MPV Immature Gran % (Auto) Neut % (Auto) Lymph % (Auto) [place] % (Auto) Eos % (Auto) Baso % (Auto) Absolute Neuts (auto) Absolute Lymphs (auto) Total Counted Sodium Potassium Chloride Carbon Dioxide Anion Gap BUN Creatinine Estim Creat Clear Calc Est GFR (MDRD) Af Amer Est GFR (MDRD) Non-Af BUN/Creatinine Ratio Glucose Calcium POC Glucose 86 114 H 119 H 02/24/18 02/25/18 02/25/18 16:57 00:07 06:41 WBC RBC Hgb Hct MCV MCH MCHC RDW RDW Differential Plt Count MPV Immature Gran % (Auto) Neut % (Auto) Lymph % (Auto) [place] % (Auto) Eos % (Auto) Baso % (Auto) Absolute Neuts (auto) Absolute Lymphs (auto) Total Counted Sodium Potassium Chloride Carbon Dioxide Anion Gap BUN Creatinine Estim Creat Clear Calc Est GFR (MDRD) Af Amer Est GFR (MDRD) Non-Af BUN/Creatinine Ratio Glucose Calcium POC Glucose 94 104 116 H 02/25/18 02/25/18 02/26/18 11:15 16:55 00:03 WBC RBC Hgb Hct MCV MCH MCHC RDW RDW Differential Plt Count MPV Immature Gran % (Auto) Neut % (Auto) Lymph % (Auto) [place] % (Auto) Eos % (Auto) Baso % (Auto) Absolute Neuts (auto) Absolute Lymphs (auto) Total Counted Sodium Potassium Chloride Carbon Dioxide Anion Gap BUN Creatinine Estim Creat Clear Calc Est GFR (MDRD) Af Amer Est GFR (MDRD) Non-Af BUN/Creatinine Ratio Glucose Calcium POC Glucose 124 H 93 104 general surgery Summary of Care Provided: 52 year old male with below past medical history significant for aortic dissection, right MCA stroke requiring craniotomy, hospitalized for H. Flu/aspiration pneumonia, admitted to TCU with debility, here for rehabilitation, strengthening, prior to discharge to [facility] 02/26/18 for vocal cord repair, plate placement in head. Discharge Diet: - - peg tube feeds Discharge Activity: - - utilize helmet for protection Home Medications: Medications to take at Discharge Albuterol Sulfate [Proair Hfa] 1 puff INHALATION BID PRN 04/01/15 Fluticasone 110 Mcg [Flovent 110 Mcg] 2 puff INHALATION BID 04/01/15 Albuterol IH (ProAir) [Proair Hfa] 2 puff INHALATION Q6H PRN PRN 10/07/17 Budesonide/Formoterol 80-4.5 [Symbicort 80-4.5 Mcg Inhaler] 2 puff INHALATION BID 10/07/17 Acetaminophen Liquid [Tylenol Liquid] 650 mg GT Q6H PRN PRN udc 02/26/18 Acetylcysteine [Mucomyst] 400 mg INHALATION Q6H.RT PRN vial.neb. 02/26/18 Baclofen [Lioresal] 10 mg GT TID tablet 02/26/18 Famotidine [Pepcid] 40 mg GT DAILY tablet 02/26/18 Fluticasone/Salmeterol [Fluticasone-Salmeterol 232-14] 1 puff IH Q12 inhaler 02/26/18 Hydrocortisone 2.5% Crm [Hytone] 1 applic TOPICAL BID tube 02/26/18 Ipratropium/Albuterol Sulfate [Duoneb] 3 ml INHALATION Q4H.RT PRN ampul.neb 02/26/18 Lacosamide Solution [Vimpat Solution] 200 mg GT BID udc 02/26/18 Loratadine [Claritin] 10 mg GT DAILY tablet 02/26/18 Lorazepam [Ativan] 0.5 mg GT Q6H PRN PRN tablet 02/26/18 Melatonin 3 mg GT QHS tablet 02/26/18 Menthol/Lanolin/Calamine/Znox [Calmoseptine Ointment] 1 applic TOPICAL 0600,2200 tube 02/26/18 Metoprolol Tartrate [Lopressor (beta john)] 25 mg GT BID tablet 02/26/18 Mineral Oil 1 bottle RECTAL DAILY PRN enema 02/26/18 Ondansetron [Zofran Odt] 8 mg GT Q8H PRN PRN tablet 02/26/18 Oxycodone [Oxyir] 5 mg GT Q4H PRN PRN 7 Days tablet 02/26/18 Polyethylene Glycol 3350 [Miralax] 17 gm GT DAILY PRN packet 02/26/18 Quetiapine Fumarate [Seroquel] 12.5 mg GT QHS tablet 02/26/18 Senna [Senokot] 1 tablet GT BID PRN tablet 02/26/18 Venlafaxine HCl [Effexor] 75 mg GT BID tablet 02/26/18 busPIRone [Buspar] 10 mg GT BID tablet 02/26/18 Primary Care Physician: Fredy Beth MD [Primary Care Provider] - Please follow up with your Primary Care Physician in: 1 week after d/c frm [facility] Please Follow Up With: Shabbir Pace Please Follow Up With: Dash Woodard Please Follow Up With: Jamie Moreno Disposition: Acute care Hospital Minutes spent on discharge:: 25 Patient Condition:: Good Medical Necessity - Tobacco Use Smoking Status: Former smoker Tobacco Use: Non-smoker Meaningful Use Info Meaningful Use Diagnoses (Choose all that apply): None applicable Code Visit Inpatient E&M: 56496 SNF Disch
--- NOTE | 2018-02-26 08:39 | DS.PCM_ITS ---
Discharge Date and Diagnosis - Problem List Patient Problems: Active and Suspected Problems (This Medical Record has been edited. Action required.) Aortic dissection (Acute) Acute right MCA stroke (Acute) Left hemiplegia (Acute) Acute kidney injury (Acute) Seizure disorder (Acute) Dysphagia (Acute) Vocal cord paralysis (Acute) Dysphagia (Acute) Date of Admission: 02/07/18 Date of Discharge: 02/26/18 - Primary Discharge Diagnosis Active and Suspected Problems (This Medical Record has been edited. Action required.) Aortic dissection (Acute) Acute right MCA stroke (Acute) Left hemiplegia (Acute) Acute kidney injury (Acute) Seizure disorder (Acute) Dysphagia (Acute) Vocal cord paralysis (Acute) Dysphagia (Acute) - Secondary Discharge Diagnosis Chronic Problems (This Medical Record has been edited. Action required.) Kidney stones (Chronic) Hypertension (Chronic) Asthma (Chronic) Depression (Chronic) Hospital Course and Treatment Imaging Results: 02/18/18 02/19/18 02/19/18 23:49 06:44 11:23 WBC RBC Hgb Hct MCV MCH MCHC RDW RDW Differential Plt Count MPV Immature Gran % (Auto) Neut % (Auto) Lymph % (Auto) [place] % (Auto) Eos % (Auto) Baso % (Auto) Absolute Neuts (auto) Absolute Lymphs (auto) Total Counted Sodium Potassium Chloride Carbon Dioxide Anion Gap BUN Creatinine Estim Creat Clear Calc Est GFR (MDRD) Af Amer Est GFR (MDRD) Non-Af BUN/Creatinine Ratio Glucose Calcium POC Glucose 103 125 H 93 02/19/18 02/20/18 02/20/18 16:55 00:07 06:39 WBC RBC Hgb Hct MCV MCH MCHC RDW RDW Differential Plt Count MPV Immature Gran % (Auto) Neut % (Auto) Lymph % (Auto) [place] % (Auto) Eos % (Auto) Baso % (Auto) Absolute Neuts (auto) Absolute Lymphs (auto) Total Counted Sodium Potassium Chloride Carbon Dioxide Anion Gap BUN Creatinine Estim Creat Clear Calc Est GFR (MDRD) Af Amer Est GFR (MDRD) Non-Af BUN/Creatinine Ratio Glucose Calcium POC Glucose 105 120 H 97 02/20/18 02/20/18 02/21/18 11:12 17:05 00:18 WBC RBC Hgb Hct MCV MCH MCHC RDW RDW Differential Plt Count MPV Immature Gran % (Auto) Neut % (Auto) Lymph % (Auto) [place] % (Auto) Eos % (Auto) Baso % (Auto) Absolute Neuts (auto) Absolute Lymphs (auto) Total Counted Sodium Potassium Chloride Carbon Dioxide Anion Gap BUN Creatinine Estim Creat Clear Calc Est GFR (MDRD) Af Amer Est GFR (MDRD) Non-Af BUN/Creatinine Ratio Glucose Calcium POC Glucose 99 106 107 02/21/18 02/21/18 02/22/18 06:13 11:35 00:35 WBC RBC Hgb Hct MCV MCH MCHC RDW RDW Differential Plt Count MPV Immature Gran % (Auto) Neut % (Auto) Lymph % (Auto) [place] % (Auto) Eos % (Auto) Baso % (Auto) Absolute Neuts (auto) Absolute Lymphs (auto) Total Counted Sodium Potassium Chloride Carbon Dioxide Anion Gap BUN Creatinine Estim Creat Clear Calc Est GFR (MDRD) Af Amer Est GFR (MDRD) Non-Af BUN/Creatinine Ratio Glucose Calcium POC Glucose 128 H 109 101 02/22/18 02/22/18 02/22/18 06:43 06:43 06:43 WBC 7.5 RBC 3.97 L Hgb 13.0 Hct 39.1 L MCV 98.5 H MCH 32.7 H MCHC 33.2 RDW 15.5 H RDW Differential 53.9 H Plt Count 344 MPV 9.1 Immature Gran % (Auto) 0.500 Neut % (Auto) 60.2 Lymph % (Auto) 19.5 [place] % (Auto) 7.2 Eos % (Auto) 11.8 H Baso % (Auto) 0.8 Absolute Neuts (auto) 4.5 Absolute Lymphs (auto) 1.45 Total Counted Not Reportable Sodium 144 Potassium 4.0 Chloride 106 Carbon Dioxide 31.0 Anion Gap 7 BUN 15 Creatinine 0.53 L Estim Creat Clear Calc 139.61 Est GFR (MDRD) Af Amer 209 Est GFR (MDRD) Non-Af 173 BUN/Creatinine Ratio 28.4 H Glucose 95 Calcium 9.0 POC Glucose 94 02/22/18 02/22/18 02/23/18 11:27 16:49 00:35 WBC RBC Hgb Hct MCV MCH MCHC RDW RDW Differential Plt Count MPV Immature Gran % (Auto) Neut % (Auto) Lymph % (Auto) [place] % (Auto) Eos % (Auto) Baso % (Auto) Absolute Neuts (auto) Absolute Lymphs (auto) Total Counted Sodium Potassium Chloride Carbon Dioxide Anion Gap BUN Creatinine Estim Creat Clear Calc Est GFR (MDRD) Af Amer Est GFR (MDRD) Non-Af BUN/Creatinine Ratio Glucose Calcium POC Glucose 101 101 102 02/23/18 02/23/18 02/23/18 06:41 11:50 17:01 WBC RBC Hgb Hct MCV MCH MCHC RDW RDW Differential Plt Count MPV Immature Gran % (Auto) Neut % (Auto) Lymph % (Auto) [place] % (Auto) Eos % (Auto) Baso % (Auto) Absolute Neuts (auto) Absolute Lymphs (auto) Total Counted Sodium Potassium Chloride Carbon Dioxide Anion Gap BUN Creatinine Estim Creat Clear Calc Est GFR (MDRD) Af Amer Est GFR (MDRD) Non-Af BUN/Creatinine Ratio Glucose Calcium POC Glucose 123 H 101 108 02/24/18 02/24/18 02/24/18 00:32 06:35 11:24 WBC RBC Hgb Hct MCV MCH MCHC RDW RDW Differential Plt Count MPV Immature Gran % (Auto) Neut % (Auto) Lymph % (Auto) [place] % (Auto) Eos % (Auto) Baso % (Auto) Absolute Neuts (auto) Absolute Lymphs (auto) Total Counted Sodium Potassium Chloride Carbon Dioxide Anion Gap BUN Creatinine Estim Creat Clear Calc Est GFR (MDRD) Af Amer Est GFR (MDRD) Non-Af BUN/Creatinine Ratio Glucose Calcium POC Glucose 86 114 H 119 H 02/24/18 02/25/18 02/25/18 16:57 00:07 06:41 WBC RBC Hgb Hct MCV MCH MCHC RDW RDW Differential Plt Count MPV Immature Gran % (Auto) Neut % (Auto) Lymph % (Auto) [place] % (Auto) Eos % (Auto) Baso % (Auto) Absolute Neuts (auto) Absolute Lymphs (auto) Total Counted Sodium Potassium Chloride Carbon Dioxide Anion Gap BUN Creatinine Estim Creat Clear Calc Est GFR (MDRD) Af Amer Est GFR (MDRD) Non-Af BUN/Creatinine Ratio Glucose Calcium POC Glucose 94 104 116 H 02/25/18 02/25/18 02/26/18 11:15 16:55 00:03 WBC RBC Hgb Hct MCV MCH MCHC RDW RDW Differential Plt Count MPV Immature Gran % (Auto) Neut % (Auto) Lymph % (Auto) [place] % (Auto) Eos % (Auto) Baso % (Auto) Absolute Neuts (auto) Absolute Lymphs (auto) Total Counted Sodium Potassium Chloride Carbon Dioxide Anion Gap BUN Creatinine Estim Creat Clear Calc Est GFR (MDRD) Af Amer Est GFR (MDRD) Non-Af BUN/Creatinine Ratio Glucose Calcium POC Glucose 124 H 93 104 general surgery Summary of Care Provided: 52 year old male with below past medical history significant for aortic dissection, right MCA stroke requiring craniotomy, hospitalized for H. Flu/ aspiration pneumonia, admitted to TCU with debility, here for rehabilitation, strengthening, prior to discharge to [facility] 02/26/18 for vocal cord repair, plate placement in head. Discharge Diet: - - peg tube feeds Discharge Activity: - - utilize helmet for protection Home Medications: Medications to take at Discharge Albuterol Sulfate [Proair Hfa] 1 puff INHALATION BID PRN 04/01/15 Fluticasone 110 Mcg [Flovent 110 Mcg] 2 puff INHALATION BID 04/01/15 Albuterol IH (ProAir) [Proair Hfa] 2 puff INHALATION Q6H PRN PRN 10/07/17 Budesonide/Formoterol 80-4.5 [Symbicort 80-4.5 Mcg Inhaler] 2 puff INHALATION BID 10/07/17 Acetaminophen Liquid [Tylenol Liquid] 650 mg GT Q6H PRN PRN udc 02/26/18 Acetylcysteine [Mucomyst] 400 mg INHALATION Q6H.RT PRN vial.neb. 02/26/18 Baclofen [Lioresal] 10 mg GT TID tablet 02/26/18 Famotidine [Pepcid] 40 mg GT DAILY tablet 02/26/18 Fluticasone/Salmeterol [Fluticasone-Salmeterol 232-14] 1 puff IH Q12 inhaler Hydrocortisone 2.5% Crm [Hytone] 1 applic TOPICAL BID tube 02/26/18 Ipratropium/Albuterol Sulfate [Duoneb] 3 ml INHALATION Q4H.RT PRN ampul.neb 08/15 Lacosamide Solution [Vimpat Solution] 200 mg GT BID udc 02/26/18 Loratadine [Claritin] 10 mg GT DAILY tablet 02/26/18 Lorazepam [Ativan] 0.5 mg GT Q6H PRN PRN tablet 02/26/18 Melatonin 3 mg GT QHS tablet 02/26/18 Menthol/Lanolin/Calamine/Znox [Calmoseptine Ointment] 1 applic TOPICAL 0600, 2200 tube 02/26/18 Metoprolol Tartrate [Lopressor (beta john)] 25 mg GT BID tablet 02/26/18 Mineral Oil 1 bottle RECTAL DAILY PRN enema 02/26/18 Ondansetron [Zofran Odt] 8 mg GT Q8H PRN PRN tablet 02/26/18 Oxycodone [Oxyir] 5 mg GT Q4H PRN PRN 7 Days tablet 02/26/18 Polyethylene Glycol 3350 [Miralax] 17 gm GT DAILY PRN packet 02/26/18 Quetiapine Fumarate [Seroquel] 12.5 mg GT QHS tablet 02/26/18 Senna [Senokot] 1 tablet GT BID PRN tablet 02/26/18 Venlafaxine HCl [Effexor] 75 mg GT BID tablet 02/26/18 busPIRone [Buspar] 10 mg GT BID tablet 02/26/18 Primary Care Physician: Fredy Beth MD [Primary Care Provider] - Please follow up with your Primary Care Physician in: 1 week after d/c frm [facility] Please Follow Up With: Shabbir Pace Please Follow Up With: Dash Woodard Please Follow Up With: Jamie Moreno Disposition: Acute care Hospital Minutes spent on discharge:: 25 Patient Condition:: Good Medical Necessity - Tobacco Use Smoking Status: Former smoker Tobacco Use: Non-smoker Meaningful Use Info Meaningful Use Diagnoses (Choose all that apply): None applicable Code Visit Inpatient E&M: 42580 SNF Disch
[2018-02-26 11:08] VITALS: BP 104/54; PULSE 62; RESP 16; TEMP 36.8; O2SAT 97
[2018-02-26] MEDS: oxyCODONE 5 MG Tablet GT (11:15)
[2018-02-26 11:36] LABS: Bedside Glucose 109 mg/dL (70-110)
--- NOTE | 2018-02-26 12:36 | CASEMGMT ---
Insurance Notified insurance of resident discharge on 02/26/18 to an acute hospital setting for a planned surgery. Auth#[id number] Guillermina PANTOJA, [employer]
== END 2018-02-26 12:10 | disposition short-term general hospital (02) | DRG 948 ==
PROVIDERS: Admitting Provider Family Medicine Geriatric Medicine; Family Provider Family Medicine; PCP Family Medicine; Visit Provider Family Medicine Geriatric Medicine
DX: R53.81 Other malaise (principal); I69.354 Hemiplegia and hemiparesis following cerebral infarction affecting left non-dominant side; I69.398 Other sequelae of cerebral infarction; R46.89 Other symptoms and signs involving appearance and behavior; I10 Essential (primary) hypertension; F32.9 Major depressive disorder, single episode, unspecified; J45.909 Unspecified asthma, uncomplicated; J38.00 Paralysis of vocal cords and larynx, unspecified; Z86.79 Personal history of other diseases of the circulatory system; G40.909 Epilepsy, unspecified, not intractable, without status epilepticus; Z87.891 Personal history of nicotine dependence; F41.9 Anxiety disorder, unspecified; K21.9 Gastro-esophageal reflux disease without esophagitis; Z23 Encounter for immunization; R13.10 Dysphagia, unspecified; Z93.1 Gastrostomy status
CPT/HCPCS: 36415; 80048; 82962; 85025; 92507; 92526; 92610; 94640; 94667; 94668; 97110; 97112; 97116; 97140; 97163; 97166; 97530; 97535; 97802; 97803; 90670; A4216; J7799

== ENCOUNTER 2018-02-13 10:37 | Day surgery (SDC) | payer OTHER, SELFPAY ==
[2018-02-13] MEDS: Piperacil/Tazobactam 3.375 GM/50 ML ML IV (10:52)
[2018-02-13 11:17] VITALS: BP 115/90; PULSE 83; RESP 14; TEMP 36.7; O2SAT 99; BMI 18.1
--- NOTE | 2018-02-13 11:53 | OP.PCM_ITS ---
Problem List (1) Dysphagia Status: Acute Qualifiers: Dysphagia type: unspecified Qualified Code(s): R13.10 - Dysphagia, unspecified Report of Operation Date of Procedure: 02/13/18 Pre-Operative Diagnosis: r13.10 dysphasia Post-Operative Diagnosis: Same Surgery/Procedure Performed:: Percutaneous endoscopic gastrostomy tube placement with the esophagogastroduodenoscopy Type of Anesthesia:: MAC Anesthesiologist: Jennie Prelsey Description of Procedure: Patient was brought into the endoscopy suite. Placed in the left lateral decubitus position slightly supine. Back of his throat was sprayed with benzocaine spray. Bite-block was placed. Graded anesthesia was given. Scope was inserted in the back of the oropharynx directed down through the esophagus and into the stomach and into the duodenum without difficulty duodenum and stomach and esophagus all appeared normal without signs of ulcerations or masslike lesions. Previous PEG tube site was identified I inflated the abdomen was palpated it was decided that just superior to where his previous PEG tube was placed was where I would place the new PEG tube site. This was marked appropriately. The abdominal wall was sterilely prepped and draped in usual fashion. Local was injected. A skin temo was made. Angiocatheter was placed through the skin temo into the stomach and a guidewire was placed through this angiocatheter. This was grasped with a lasso and brought back through the oropharynx. PEG tube was attached to this guidewire and the PEG tube was then brought back through the oropharynx and through the abdominal wall. Scope was reinserted into the oropharynx and directed down through the esophagus into the stomach or photograph was obtained of the PEG tube being a good placement. T- bar was applied locking cap was applied and end cap was then applied. Sterile dressings were applied. The patient tolerated the procedure well. - Admit VTE Documentation VTE Present on Admission: No VTE Mechan Device Prophylaxis: None VTE Pharm Prophylaxis ordered?: No Reason prophylaxis not ordered:: Treatment Not Indicated
[2018-02-13 11:55] VITALS: BP 115/90; BP 126/79; PULSE 86; RESP 18; TEMP 36.6; O2SAT 100
[2018-02-13 12:00] VITALS: BP 115/90; BP 126/74; PULSE 83; RESP 18; O2SAT 100
[2018-02-13 12:05] VITALS: BP 115/90; BP 134/74; PULSE 81; RESP 18; O2SAT 100
[2018-02-13 12:10] VITALS: BP 115/90; BP 136/83; PULSE 81; RESP 18; O2SAT 100
[2018-02-13 12:15] VITALS: BP 115/90; BP 145/76; PULSE 78; RESP 18; TEMP 36.3; O2SAT 99
== END 2018-02-13 12:23 ==
LOC: EN 10:38 → AC 10:39
PROVIDERS: Family Provider Family Medicine; PCP Family Medicine; Visit Provider Surgery
PROC: 0DH64UZ Insertion of Feeding Device into Stomach, Percutaneous Endoscopic Approach (ICD-10-PCS; CPT 43246; principal; 2018-02-13 11:25)
DX: R13.10 Dysphagia, unspecified (principal); J38.00 Paralysis of vocal cords and larynx, unspecified; I69.354 Hemiplegia and hemiparesis following cerebral infarction affecting left non-dominant side; I10 Essential (primary) hypertension; G40.909 Epilepsy, unspecified, not intractable, without status epilepticus; J45.909 Unspecified asthma, uncomplicated; F32.9 Major depressive disorder, single episode, unspecified; F41.9 Anxiety disorder, unspecified; Z79.899 Other long term (current) drug therapy; Z86.79 Personal history of other diseases of the circulatory system; Z87.442 Personal history of urinary calculi; Z87.891 Personal history of nicotine dependence
CPT/HCPCS: 43246

== ENCOUNTER 2018-03-06 12:28 | Inpatient (IN) | payer OTHER, SELFPAY ==
[2018-03-06 12:38] VITALS: BP 138/90; PULSE 66; RESP 17; TEMP 36.7; O2SAT 98; BMI 18.5; BMI 20.3
[2018-03-06] MEDS: oxyCODONE 5 MG Tablet PO ×2 (16:13→23:08)
--- NOTE | 2018-03-06 16:14 | PCM.PN.HOSP ---
Subjective: Consult requested by the rehab team for medical management This is an unfortunate 52 year old white male who on October 07 suffered an aortic dissection. Either perioperatively or postoperatively he suffered a right middle cerebral stroke. Patient underwent a decompressive craniotomy on October 13. Patient had vocal cord repair back on February 20 and had a plate placed in the midst of all this. Patient brought into acute rehab for further strength and balance training. Additionally patient also does have a PEG tube. Patient very anxious to to do therapy and get stronger and go home. Vitals/I&O's: Vital Signs Temp Pulse Resp BP Pulse Ox 36.7 C 66 17 138/90 H 98 03/06/18 12:38 03/06/18 12:38 03/06/18 12:38 03/06/18 12:38 03/06/18 12:38 Oxygen Delivery Method Room Air Weight: 68 kg Body Mass Index (BMI) 20.2 General: Alert, Cooperative, No apparent distress, - - Up in wheelchair HEENT: - - Large [place] incision on right side of his scalp. Sutures in place. Well approximated. No icterus Neck: No Nodes, Thyroid Normal Size and Texture Lungs: Clear to auscultation, Normal air movement, No rhonchi, No wheeze Cardiovascular: Regular rate, Regular Rhythm, Normal S1, Normal S2, No murmurs Abdomen: Bowel Sounds Present, Soft, Non Tender, Non-Distended, No Hepato-splenomegaly Extremities: No edema, No Calf Tenderness Skin: No rashes, No breakdown Musculoskeletal: Cachexia, Muscle Wasting Neurological: - - Flaccid on the left. Left wrist brace. Psych/Mental Status: Normal Affect, Appropriate Current Medications Acetaminophen (Tylenol) 650 mg PO Q6H PRN PRN PRN Reason: Mild Pain (0-3/10)/Headache Acetylcysteine (Mucomyst) 400 mg INHALATION Q6H.RT PRN PRN Reason: sob/wheezing Albuterol/Ipratropium (Duoneb) 3 ml INHALATION Q4H.RT PRN PRN Reason: SOB &/OR WHEEZING Amoxicillin (Amoxil) 500 mg PO TID ENIO Stop: 03/08/18 14:01 Baclofen (Lioresal) 10 mg PO TID ENIO Bisacodyl (Dulcolax) 10 mg RECTAL .PRN X 1 PRN PRN Reason: Constipation Buspirone HCl (Buspar) 10 mg PO BID [facility] Calamine/Phenol (Calmoseptine Ointment) 1 applic TOPICAL 0600,2200 [facility] PRN Reason: Protocol Enoxaparin Sodium (Lovenox) 40 mg SC DAILY@0600 [facility] Hydrocortisone (Hytone) 1 applic TOPICAL BID [facility] PRN Reason: Protocol Lacosamide (Vimpat) 200 mg PO BID [facility] Levetiracetam (Keppra Tablet) 1,000 mg PO BID [facility] Loratadine (Claritin) 10 mg PO DAILY [facility] Magnesium Hydroxide (Milk Of Magnesia) 30 ml PO .PRN X 1 PRN PRN Reason: Constipation Melatonin (Melatonin) 3 mg PO QHS [facility] Methocarbamol (Methocarbamol) 750 mg PO TID PRN PRN Reason: MUSCLE SPASM Metoprolol Tartrate (Lopressor (Beta Jose Juan)) 25 mg PO BID [facility] Non-Formulary Medication (Budesonide/Formoterol 80-4.5) 2 puff INHALATION BID [facility] Nutritional Formula (Lactose Free) (Ensure Enlive) 120 ml PO 4X/DAY [facility] Oxycodone HCl (Oxyir) 5 mg PO Q6H PRN PRN PRN Reason: SEVERE PAIN (6-05/07) Pantoprazole Sodium (Protonix) 40 mg PO DAILY [facility] Polyethylene Glycol (Miralax) 17 gm PO DAILY PRN PRN Reason: Constipation Quetiapine Fumarate (Seroquel) 12.5 mg PO QHS [facility] Senna (Senokot) 1 tablet PO BID PRN PRN Reason: Constipation Venlafaxine HCl (Effexor) 75 mg PO BID [facility] Medical Necessity - Tobacco Use Smoking Status: Former smoker Assessment/Plan All Active Problems (This Medical Record has been edited. Action required.) Aortic dissection (Acute) Acute right MCA stroke (Acute) Left hemiplegia (Acute) Acute kidney injury (Acute) Seizure disorder (Acute) Dysphagia (Acute) Vocal cord paralysis (Acute) Dysphagia (Acute) 1. Right MCA stroke With left-sided karen-paresis Occurred with or after aortic dissection repair I do not see any records not on any antiplatelet medications nor statins. Brothers may related with the surgical changes and risk for MRI junk transformation given the swelling that he likely sustained with his previous stroke that required decompression. Will review records once they become available to adequately guide the patient's therapy Will require follow-up with neurosurgery Follow-up with neurology as outpatient 2. Aortic dissection Once again, complete records are not available at this time Follow-up with vascular surgery as outpatient 3. Seizure disorder Continue with Keppra 4. DVT proph; LMWH Thank you for the consult. Code Visit Inpatient E&M: 48038 Subs Hosp L2
--- NOTE | 2018-03-06 16:21 | PN_ITS ---
Subjective: Consult requested by the rehab team for medical management This is an unfortunate 52 year old white male who on October 07 suffered an aortic dissection. Either perioperatively or postoperatively he suffered a right middle cerebral stroke. Patient underwent a decompressive craniotomy on October 13. Patient had vocal cord repair back on February 20 and had a plate placed in the midst of all this. Patient brought into acute rehab for further strength and balance training. Additionally patient also does have a PEG tube. Patient very anxious to to do therapy and get stronger and go home. Vitals/I&O's: Vital Signs Temp Pulse Resp BP Pulse Ox 36.7 C 66 17 138/90 H 98 03/06/18 12:38 03/06/18 12:38 03/06/18 12:38 03/06/18 12:38 03/06/18 12:38 Oxygen Delivery Method Room Air Weight: 68 kg Body Mass Index (BMI) 20.2 General: Alert, Cooperative, No apparent distress, - - Up in wheelchair HEENT: - - Large [place] incision on right side of his scalp. Sutures in place. Well approximated. No icterus Neck: No Nodes, Thyroid Normal Size and Texture Lungs: Clear to auscultation, Normal air movement, No rhonchi, No wheeze Cardiovascular: Regular rate, Regular Rhythm, Normal S1, Normal S2, No murmurs Abdomen: Bowel Sounds Present, Soft, Non Tender, Non-Distended, No Hepato- splenomegaly Extremities: No edema, No Calf Tenderness Skin: No rashes, No breakdown Musculoskeletal: Cachexia, Muscle Wasting Neurological: - - Flaccid on the left. Left wrist brace. Psych/Mental Status: Normal Affect, Appropriate Current Medications Acetaminophen (Tylenol) 650 mg PO Q6H PRN PRN PRN Reason: Mild Pain (0-3/10)/Headache Acetylcysteine (Mucomyst) 400 mg INHALATION Q6H.RT PRN PRN Reason: sob/wheezing Albuterol/Ipratropium (Duoneb) 3 ml INHALATION Q4H.RT PRN PRN Reason: SOB &/OR WHEEZING Amoxicillin (Amoxil) 500 mg PO TID ENIO Stop: 03/08/18 14:01 Baclofen (Lioresal) 10 mg PO TID ENIO Bisacodyl (Dulcolax) 10 mg RECTAL .PRN X 1 PRN PRN Reason: Constipation Buspirone HCl (Buspar) 10 mg PO BID [facility] Calamine/Phenol (Calmoseptine Ointment) 1 applic TOPICAL 0600,2200 [facility] PRN Reason: Protocol Enoxaparin Sodium (Lovenox) 40 mg SC DAILY@0600 [facility] Hydrocortisone (Hytone) 1 applic TOPICAL BID [facility] PRN Reason: Protocol Lacosamide (Vimpat) 200 mg PO BID [facility] Levetiracetam (Keppra Tablet) 1,000 mg PO BID [facility] Loratadine (Claritin) 10 mg PO DAILY [facility] Magnesium Hydroxide (Milk Of Magnesia) 30 ml PO .PRN X 1 PRN PRN Reason: Constipation Melatonin (Melatonin) 3 mg PO QHS [facility] Methocarbamol (Methocarbamol) 750 mg PO TID PRN PRN Reason: MUSCLE SPASM Metoprolol Tartrate (Lopressor (Beta Jose Juan)) 25 mg PO BID [facility] Non-Formulary Medication (Budesonide/Formoterol 80-4.5) 2 puff INHALATION BID [facility] Nutritional Formula (Lactose Free) (Ensure Enlive) 120 ml PO 4X/DAY [facility] Oxycodone HCl (Oxyir) 5 mg PO Q6H PRN PRN PRN Reason: SEVERE PAIN (6-05/07) Pantoprazole Sodium (Protonix) 40 mg PO DAILY [facility] Polyethylene Glycol (Miralax) 17 gm PO DAILY PRN PRN Reason: Constipation Quetiapine Fumarate (Seroquel) 12.5 mg PO QHS [facility] Senna (Senokot) 1 tablet PO BID PRN PRN Reason: Constipation Venlafaxine HCl (Effexor) 75 mg PO BID [facility] Medical Necessity - Tobacco Use Smoking Status: Former smoker Assessment/Plan All Active Problems (This Medical Record has been edited. Action required.) Aortic dissection (Acute) Acute right MCA stroke (Acute) Left hemiplegia (Acute) Acute kidney injury (Acute) Seizure disorder (Acute) Dysphagia (Acute) Vocal cord paralysis (Acute) Dysphagia (Acute) 1. Right MCA stroke * With left-sided karen-paresis * Occurred with or after aortic dissection repair * I do not see any records not on any antiplatelet medications nor statins. Brothers may related with the surgical changes and risk for MRI junk transformation given the swelling that he likely sustained with his previous stroke that required decompression. * Will review records once they become available to adequately guide the patient 's therapy * Will require follow-up with neurosurgery * Follow-up with neurology as outpatient 2. Aortic dissection * Once again, complete records are not available at this time * Follow-up with vascular surgery as outpatient 3. Seizure disorder * Continue with Keppra 4. DVT proph; LMWH Thank you for the consult. Code Visit Inpatient E&M: 08238 Subs Hosp L2
--- NOTE | 2018-03-06 17:54 | NURSING ---
Patient aware he is a fall risk and must ask for staff assist and verbalized understanding. Demonstrated call mendieta use.
[2018-03-06 19:25] VITALS: O2SAT 95
[2018-03-06 20:14] VITALS: O2SAT 93
[2018-03-06] MEDS: Menthol/Lanolin/Calamine/Znox 113 GM Tube 1 APPLIC TOPICAL (20:56)
[2018-03-06] MEDS: Lacosamide 100 MG Tablet 200 MG PO (21:18)
[2018-03-06] MEDS: AMOXICILLIN 500 MG CAPSULE PO (21:18)
[2018-03-06 21:19] VITALS: BP 135/88; PULSE 63; RESP 16; O2SAT 96
[2018-03-06] MEDS: Metoprolol Tartrate 25 MG Tablet PO (21:19)
[2018-03-06] MEDS: QUEtiapine 25 MG Tablet 12.5 MG PO (22:51)
[2018-03-06] MEDS: Baclofen 10 MG Tablet PO (22:52)
[2018-03-06] MEDS: busPIRone 5 MG Tablet 10 MG PO (22:52)
[2018-03-06] MEDS: Hydrocortisone 2.5% Crm 1 APPLIC TOPICAL (22:52)
[2018-03-06] MEDS: Venlafaxine HCl 75 MG Tablet PO (22:52)
[2018-03-06] MEDS: MELATONIN 3 MG TABLET PO (22:52)
[2018-03-06] MEDS: levETIRAcetam 1,000 MG Tablet 1000 MG PO (22:52)
[2018-03-06] MEDS: Senna Tablet 2 TABLET PO (22:54)
[2018-03-07] MEDS: Methocarbamol 750 MG Tablet PO ×2 (00:24→07:56)
[2018-03-07] MEDS: Enoxaparin 40 MG/0.4 ML Syringe SC (05:35)
[2018-03-07] MEDS: AMOXICILLIN 500 MG CAPSULE PO ×3 (05:35→20:51)
[2018-03-07] MEDS: Baclofen 10 MG Tablet PO (05:36)
[2018-03-07] MEDS: Polyethylene Glycol 3350 17 GM PACKET PO (05:37)
[2018-03-07] MEDS: oxyCODONE 5 MG Tablet PO ×3 (05:37→20:50)
[2018-03-07] MEDS: Hydrocortisone 2.5% Crm 1 APPLIC TOPICAL ×2 (05:47→23:31)
[2018-03-07 05:54] LABS: Hemoglobin 12.3 g/dl (13.0-16.5); Mean Corp Hgb Conc 33.2 g/gl (32-36); Mean Corpuscular Hgb 33.2 pg (27.0-32.0); Mean Platelet Vol. 8.6 fl (6.2-12.0); Platelet Count 270 K/mm3 (150-450); RBC Distribution Width CV 14.9 % (11.6-14.6); RBC Distribution Width SD 54.4 fl (35.1-43.9); Scan Indicated on CBC? Y/N NO; White Blood Count 6.4 K/mm3 (4.4-11.0)
[2018-03-07] MEDS: Menthol/Lanolin/Calamine/Znox 113 GM Tube 1 APPLIC TOPICAL ×2 (05:57→23:30)
[2018-03-07 06:17] LABS: Anion Gap 8 (5-15); BUN 12 mg/dL (7-18); BUN/Creat Ratio 22.2 RATIO (10-20); Calcium,Total 8.9 mg/dL (8.5-10.1); Chloride 105 mmol/L (98-107); Creatinine, Serum 0.54 mg/dL (0.70-1.30); EST Glomerular Filtration Rate 168 mL/min (>60); Est Glom Filt Rate - Afr Amer 204 mL/min (>60); Estimated Creatinine Clearance 152.16 ml/min; Glucose 82 mg/dL (74-106); Sodium Level 144 mmol/L (136-145)
[2018-03-07 07:00] VITALS: O2SAT 96
[2018-03-07] MEDS: Senna Tablet 2 TABLET PO ×2 (07:55→20:52)
[2018-03-07 07:56] VITALS: PULSE 60
[2018-03-07] MEDS: Metoprolol Tartrate 25 MG Tablet PO ×2 (07:56→20:53)
[2018-03-07] MEDS: Loratadine 10 MG Tablet PO (07:56)
[2018-03-07] MEDS: levETIRAcetam 1,000 MG Tablet 1000 MG PO ×2 (07:56→20:54)
[2018-03-07 08:00] VITALS: BP 132/79; PULSE 56; RESP 16; TEMP 36.8; O2SAT 95
[2018-03-07] MEDS: Acetaminophen 325 MG Tablet 650 MG PO ×2 (09:52→18:43)
[2018-03-07] MEDS: Lacosamide 100 MG Tablet 200 MG PO ×2 (09:52→20:58)
[2018-03-07] MEDS: Venlafaxine HCl 75 MG Tablet PO ×2 (09:53→20:56)
[2018-03-07] MEDS: busPIRone 5 MG Tablet 10 MG PO ×2 (09:53→20:54)
[2018-03-07] MEDS: Pantoprazole Sodium 40 MG Tablet PO (09:53)
--- NOTE | 2018-03-07 10:44 | PCM.HP.STD ---
History of Present Illness Date of Admission: 03/06/18 Chief Complaint: Debility The patient is a 52 year old M who presents to the rehab unit with debility after prolonged hospitalization. He was admitted to the TCU as below after prolonged hospitalization at [facility]. Originally he had a ruptured aortic aneurysm causing a right MCA distribution infarct followed by decompressive craniotomy. His skull plate has been replaced however his hospitalization at the [facility] was complicated by pneumonia. Eventually was transferred to the TCU where he has done well. He has been cleared for regular diet with thin liquids however his tube feedings have been continued and his appetite as a result has been suppressed. He also reports soreness over his sacrum and spasticity in his left lower extremity but no other complaints. staff pharmacist indicates that he has eaten all of his food this morning. He lives at home with his and children. There is a ramp to the main floor of the house. Per TCU admission H&P from 02/07/18: Here for rehabilitation, strengthening, prior to discharge to [facility] for surgery. The patient is a 52 year old Male with below past medical history with followin10/07/2017 patient suffered aortic dissection which was surgically repaired. Post-operatively he suffered a right middle cerebral stroke requiring decompression craniotomy 10/13/2017. He has residual left hemiplegia. 01/16/2018 Patient developed cough, fever, respiratory failure secondary to H. Flu, and aspiration pneumonia. Intubated. 01/18/2018 Patient extubated. 01/31/2018 Transferred out of MICU. Swallow study showed high risk of aspiration, NPO. Tubefeeding via right nasal corpak. Patient suffered vocal cord paralysis. 02/20/2018 Admit to [facility] for vocal cord repair per ENT, and plate placement in head. 02/07/2018 Admit to TCU with debility, here for rehabilitation, strengthening, until surgery, then possible return to continue therapy. Past Medical History Past Medical History (Chronic Problems): Chronic Problems (This Medical Record has been edited. Action required.) Kidney stones (Chronic) Hypertension (Chronic) Asthma (Chronic) Depression (Chronic) Allergies cat dander Allergy (Verified 02/07/18 17:19) Unknown grass pollen Allergy (Verified 02/07/18 17:19) Itching Home Medications: Ambulatory Orders Medication Instructions Recorded Budesonide/Formoterol 80-4.5 2 puff INHALATION BID 10/07/17 [Symbicort 80-4.5 Mcg Inhaler] Acetylcysteine [Mucomyst] 400 mg INHALATION Q6H.RT PRN 02/26/18 vial.neb. Ipratropium/Albuterol Sulfate 3 ml INHALATION Q4H.RT PRN 02/26/18 [Duoneb] ampul.neb Ampicillin Trihydrate 500 mg PO 4X/DAY 03/06/18 Baclofen [Lioresal] 10 mg PO TID 03/06/18 Hydrocortisone 2.5% Crm [Hytone] 1 applic TOPICAL BID 03/06/18 Levetiracetam [Keppra] 1,000 mg PO BID 03/06/18 Loratadine [Claritin] 10 mg PO DAILY 03/06/18 Melatonin 3 mg PO QHS 03/06/18 Menthol/Lanolin/Calamine/Znox 1 applic TOPICAL 0600,2200 03/06/18 [Calmoseptine Ointment] Methocarbamol [Robaxin-750] 750 mg PO TID PRN 03/06/18 Metoprolol Tartrate [Lopressor 25 mg PO BID 03/06/18 (beta jose juan)] Oxycodone [Oxyir] 5 mg PO Q6H PRN PRN 03/06/18 Pantoprazole Sodium [Protonix] 40 mg PO DAILY 03/06/18 Polyethylene Glycol 3350 [Miralax] 17 gm PO DAILY PRN 03/06/18 Quetiapine Fumarate [Seroquel] 12.5 mg PO QHS 03/06/18 Senna [Senokot] 1 tablet PO BID PRN 03/06/18 Venlafaxine HCl [Effexor] 75 mg PO BID 03/06/18 busPIRone [Buspar] 10 mg PO BID 03/06/18 Surgical History: herniorrhaphy - Inguinal., - - Aortic dissection repair 10/07/2017, Craniotomy 10/13/2017, Lithotripsy, Left ankle ORIF, Left wrist ORIF, Bilateral heel spur removal, Traceostomy. Psychiatric History: Anxiety, Depression Smoking Status: Former smoker - *Family History Maternal History Items: No pertinent history Paternal History Items: No pertinent history Review of Systems Constitutional: Denies: Chills, Fever, Weight Change HEENT: Denies: Head Aches, Sinus Congestion, Sinus Drainage Cardiovascular: Denies: Chest Pain, Palpitations Respiratory: Denies: Cough, Shortness of breath at rest, Sputum production Gastrointestinal: Denies: Abdominal Pain, Nausea, Vomiting Genitourinary: Denies: Dysuria Musculoskeletal: Reports: Leg Pain. Denies: Joint Pain, Joint Tenderness Skin: Denies: Rash, Wounds Neurological: Denies: Numbness, Tingling, Focal weakness Psychiatric: Denies: Anxiety, Depression, Homicidal Ideations, Suicidal Ideations Hematologic/ Lymphatic: Denies: Easy Bruising, Easy Bleeding VTE Information - Inpt Only VTE Present on Admission: Yes VTE Pharm Prophylaxis ordered?: Yes Objective: He is awake and alert. Oriented ?3. Normal speech and language. He has chronic left hemiparesis with a left central 7 which is mild and mild decreased left visual field. Strength and sensation is normal on the right side. - Physical Exam Vital Signs Temp Pulse Resp BP Pulse Ox 36.7 C 60 16 135/88 H 96 03/06/18 12:38 03/07/18 07:56 03/06/18 21:19 03/06/18 21:19 03/07/18 07:00 Oxygen Delivery Method Room Air Weight: 63.5 kg Body Mass Index (BMI) 18.5 Intake and Output for Last 24 Hours 03/05/18 03/06/18 03/07/18 23:59 23:59 23:59 Intake Total 280 / 280 210 / 210 Output Total 650 / 650 100 / 100 Balance -370 / -370 110 / 110 Laboratory Tests Past 24 Hrs 03/07/18 03/07/18 05:35 05:35 WBC 6.4 RBC 3.70 L Hgb 12.3 L Hct 37.0 L MCV 100.0 H MCH 33.2 H MCHC 33.2 RDW 14.9 H RDW Differential 54.4 H Plt Count 270 MPV 8.6 Sodium 144 Potassium 4.0 Chloride 105 Carbon Dioxide 31.0 Anion Gap 8 BUN 12 Creatinine 0.54 L Estim Creat Clear Calc 152.16 Est GFR (MDRD) Af Amer 204 Est GFR (MDRD) Non-Af 168 BUN/Creatinine Ratio 22.2 H Glucose 82 Calcium 8.9 Current Medications Generic Name Dose Route Start Last Admin Trade Name Freq PRN Reason Stop Dose Admin Acetaminophen 650 mg 03/06/18 14:43 03/07/18 09:52 Tylenol PO 650 mg Q6H PRN PRN Administration Mild Pain (0-3/10)/Headache Acetylcysteine 400 mg 03/06/18 18:30 03/07/18 07:19 Mucomyst INHALATION Not Given Q6H.RT ENIO Albuterol/Ipratropium 3 ml 03/06/18 14:39 Duoneb INHALATION Q4H.RT PRN SOB &/OR WHEEZING Amoxicillin 500 mg 03/06/18 22:00 03/07/18 05:35 Amoxil PO 03/08/18 14:01 500 mg TID ENIO Administration Baclofen 10 mg 03/06/18 22:00 03/07/18 05:36 Lioresal PO 10 mg TID ENIO Administration Bisacodyl 10 mg 03/06/18 14:43 Dulcolax RECTAL .PRN X 1 PRN Constipation Buspirone HCl 10 mg 03/06/18 22:00 03/07/18 09:53 Buspar PO 10 mg BID ENIO Administration Calamine/Phenol 1 applic 03/06/18 22:00 03/07/18 05:57 Calmoseptine Ointment TOPICAL 1 applicatio 0600,2200 [facility] Administration Protocol Enoxaparin Sodium 40 mg 03/07/18 06:00 03/07/18 05:35 Lovenox SC 40 mg DAILY@0600 ENIO Administration Hydrocortisone 1 applic 03/06/18 22:00 03/07/18 05:47 Hytone TOPICAL 1 applicatio BID [facility] Administration Protocol Lacosamide 200 mg 03/06/18 22:00 03/07/18 09:52 Vimpat PO 200 mg BID ENIO Administration Levetiracetam 1,000 mg 03/06/18 22:00 03/07/18 07:56 Keppra Tablet PO 1,000 mg BID ENIO Administration Loratadine 10 mg 03/07/18 10:00 03/07/18 07:56 Claritin PO 10 mg DAILY ENIO Administration Magnesium Hydroxide 30 ml 03/06/18 14:43 Milk Of Magnesia PO .PRN X 1 PRN Constipation Melatonin 3 mg 03/06/18 22:00 03/06/18 22:52 Melatonin PO 3 mg QHS [facility] Administration Methocarbamol 750 mg 03/06/18 14:39 03/07/18 07:56 Methocarbamol PO 750 mg TID PRN Administration MUSCLE SPASM Metoprolol Tartrate 25 mg 03/06/18 22:00 03/07/18 07:56 Lopressor (Beta Jose Juan) PO 25 mg BID ENIO Administration Nutritional Formula (Lactose Free) 120 ml 03/06/18 18:00 03/07/18 07:55 Ensure Enlive PO 120 ml 4X/DAY [facility] Administration Oxycodone HCl 5 mg 03/06/18 14:39 03/07/18 05:37 Oxyir PO 5 mg Q6H PRN PRN Administration SEVERE PAIN (6-05/07) Pantoprazole Sodium 40 mg 03/07/18 10:00 03/07/18 09:53 Protonix PO 40 mg DAILY ENIO Administration Polyethylene Glycol 17 gm 03/07/18 06:00 03/07/18 05:37 Miralax PO 17 gm DAILY@0600 ENIO Administration Quetiapine Fumarate 12.5 mg 03/06/18 22:00 03/06/18 22:51 Seroquel PO 12.5 mg QHS ENIO Administration Senna 2 tablet 03/06/18 22:00 03/07/18 07:55 Senokot PO 2 tablet BID ENIO Administration Venlafaxine HCl 75 mg 03/06/18 22:00 03/07/18 09:53 Effexor PO 75 mg BID ENIO Administration Assessment/Plan All Active Problems (This Medical Record has been edited. Action required.) Aortic dissection (Acute) Acute right MCA stroke (Acute) Left hemiplegia (Acute) Acute kidney injury (Acute) Seizure disorder (Acute) Dysphagia (Acute) Vocal cord paralysis (Acute) Dysphagia (Acute) Early due to initially right MCA infarct complicated by prolonged hospitalization and pneumonia with PEG tube placement. He is now admitted to the rehab unit from the TCU in order to improve his functional status so that he can return home. Plan: Physical therapy for gait and balance Occupational Therapy for ADLs Speech therapy: Repeat swallow evaluation. Tube feedings has been held and he appears to be tolerating a p.o. diet well. We will decrease the free water through the PEG tube to keep open. DVT prophylaxis: Lovenox Bowel protocol As needed analgesics: Increase Flexeril as feasible for his left-sided spasticity. Anticonvulsants: This appears to be prophylactic will continue.
--- NOTE | 2018-03-07 11:15 | CASEMGMT ---
Social Work Telephone call from Myriam Conrad ([facility] [employer]al case records supervisor) [phone]. Myriam Conrad is available for discharge planning and support as needed. Guillermina PANTOJA, [employer]
--- NOTE | 2018-03-07 12:30 | NURSING ---
Patient has been refusing aerosols and dr harrell aware and new order to discontinue mucomyst.
--- NOTE | 2018-03-07 13:30 | RAD_ITS ---
STUDY: SWALLOWING STUDY REASON FOR EXAM: Male, 52 years old. Dysphagia. TECHNIQUE: The examination was performed with Speech Therapist and Radiologist in attendance. Under fluoroscopic observation, the patient ingested thin barium, thick barium, barium pudding, and barium coated cracker. FLUOROSCOPY TIME: 4:28 minutes/seconds Dose: 27.12 mGy RADIOLOGIST INVOLVEMENT: Present during the entire exam. COMPARISON: None available. FINDINGS: The following was observed during swallowing of the various mixtures of barium: Thin Barium: There are findings of aspiration and laryngeal penetration. Thick Barium: There was no findings of aspiration or laryngeal penetration. Barium Pudding: There was no finding of aspiration or laryngeal penetration. Barium Coated Cracker: There was no finding of aspiration or laryngeal penetration. RAD/Swallowing Function w/Video IMPRESSION: Abnormal tailored barium swallow study with aspiration not below the vocal cords (silent) with thin liquids. Increased risk for aspiration. The swallow study findings were discussed with the patient by the speech pathologist at the conclusion of the examination. Please see speech pathology report for more information and recommendations. The procedure was performed by speech guanakito Valle under the direct supervision of Dr. Moreno. Electronically Signed: Carlos Enrique Moreno, at 18:01 EDT Tel , Service support ,
--- NOTE | 2018-03-07 13:45 | SP.MBSS_ITS ---
PRIMARY / SECONDARY DIAGNOSIS: dysphagia (R13.10) REFERRING PHYSICIAN: Dr. David Durant MD CURRENT DIET: regular textures, thin liquids DENTITION: WFL MENTAL STATUS: impaired RESPIRATORY STATUS: O2 via room air PREVIOUS MODIFIED BARIUM SWALLOW STUDY: 01/17/2018 MBS revealed moderate oropharyngeal dysphagia w/ slowed oral motor movement, impaired oral transit, posterior bolus loss, delayed pharyngeal swallow onset, mild pharyngeal residue, no aspiration or penetration, cleared for PO intake. 01/23/2018 MBS revealed mild oropharyngeal dysphagia, improved from previous study, cleared for dysphagia level 3 diet. 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 Patient known to this clinician from recent [facility] admission; recent admission at [facility] associated with aspiration pneumonia status post right middle cerebral artery cerebrovascular accident requiring decompressed right craniotomy (September 2017) with resulting left sided flaccidity; 01/17/2018 MBS revealed no aspiration / penetration; intubated 01/18, traumatic SELF extubated 01/19/2018; repeat MBS on 01/23/2018 revealed no aspiration / penetration; despite this the Patient was made NPO with alternative means of nutrition due to clear aspiration risk. Patient was advanced to a regular textured, thin liquid diet; details rather cursory assessment with clear concerns for intolerance appreciated by staff, with recommendations to advance with objective means of assessment vs. clinical assessment at bedside warranted. ADDITIONAL OBJECTIVE ASSESSMENT RESULTS: 01/18/[address] revealed complete collapse / consolidation of the left lower lobe likely due to atelectasis from mucous plugging, although a component of infection cannot be excluded; scattered new cluster peribronchial nodule and airspace opacities, likely related to infection / bronchopneumonia; sequela of aspiration is possible. MEDICAL HISTORY: Prior aortic dissection repair (10/07/2017) with resulting cerebrovascular accident involving the cerebrum requiring decompressed right craniotomy (2017) with resulting right sided flaccidity, vocal fold paralysis, severe malnutrition initially requiring nasogastric tube supplementation and later percutaneous endoscopic gastrostomy (PEG) tube placement, acute hypoxia requiring intubation and tracheostomy tube placement (removed), asthma, hypertension, acute kidney injury, status post inguinal herniorrhaphy, kidney stones status post lithotripsy, depression, left ankle open reduction and internal fixation, left wrist open reduction and internal fixation, bilateral heel spur removal, tracheostomy. STUDY FINDINGS: Patient participated in a Modified Barium Swallow (MBS) study on 03/07/2018. Dr. Moreno was the radiologist present for this evaluation. This study was recorded in the lateral view and images were sent to PACs for storage. The following consistencies were presented to this patient for analysis of oropharyngeal swallow function: thin liquids, nectar thickened liquids, pudding , and a regular textured, Deborah Doone cookie. Results of the MBS are as follows: PENETRATION / ASPIRATION SCALE (HUERTA): 1 = does not enter airway 2 = enters airway/above vocal folds/ejected 3 = enters airway/above vocal folds/not ejected 4 = enters airway/contacts vocal folds/ejected 5 = enters airway/contacts vocal folds/not ejected 6 = enters airway/below vocal folds/ejected 7 = enters airway/below vocal folds/not ejected despite effort 8 = enters airway/below vocal folds/no effort VIDEOFLOROSCOPIC SCALE SCORE (HUERTA): Grade I = aspiration of material that has penetrated into the laryngeal vestibule, intact cough reflex Grade II = aspiration < 10 % of the bolus, intact cough reflex Grade III = aspiration of < 10 % of the bolus, reduced cough reflex or aspiration of > 10 % of the bolus, intact cough reflex Grade IV = aspiration of > 10 % of the bolus, reduced cough reflex PENETRATION / ASPIRATION SCALE (SCORE) WITH VIDEOFLOROSCOPIC SCALE SCORE: Thin liquid - 5 mL tsp.: 3 Thin liquids via cup (single sip): 1 Thin liquids via cup (single sip): 1 Thin liquids via cup (single sip): 1 Thin liquids via cup (single sip): 7 - Grade IV Thin liquids via cup (single sip): 1, 8* - Grade III Thin liquids via cup (chin tuck): 1 Thin liquids via cup (chin tuck): 1 Thin liquids via cup (chin tuck): 1 [place] thickened liquids via cup (chin tuck): 1 [place] thickened liquids via cup (chin tuck): 1 [place] thickened liquids via straw (chin tuck): 1 [place] thickened liquids via straw (chin tuck): 1 Pudding via spoon: 1 Pudding via spoon: 1 Regular textured cookie: 1 [place] thickened liquids via straw (chin tuck): 1 [place] thickened liquids via straw (chin tuck): 1 * denotes aspiration of previously penetrated materials * denotes obstruction of full view due to posture and movement IMPRESSION: DIAGNOSIS: moderate to severe oropharyngeal dysphagia (R13.12) ORAL PHASE CHARACTERIZED BY: LABIAL SEAL: consistent escape beyond mid chin TONGUE CONTROL DURING BOLUS MANIPULATION: posterior escape of greater than half of bolus BOLUS PREPARATION / MASTICATION: slow prolonged chewing/mashing with complete recollection BOLUS TRANSPORT / LINGUAL MOTION: slowed tongue motion ORAL RESIDUE: large residue collection on oral structures (lateral buccal cavity) PHARYNGEAL PHASE CHARACTERIZED BY: INITIATION OF PHARYNGEAL SWALLOW: bolus head in pyriforms at first hyoid excursion SOFT PALATE ELEVATION: no bolus between soft palate and pharyngeal wall LARYNGEAL ELEVATION: partial superior movement of thyroid cartilage/partial approximation of arytenoids cartilage to epiglottic petiole ANTERIOR HYOID EXCURSION: partial anterior movement EPIGLOTTIC MOVEMENT: partial epiglottic inversion LARYNGEAL VESTIBULE CLOSURE AT HEIGHT OF SWALLOW: incomplete laryngeal vestibule closure with narrow column of air/contrast in laryngeal vestibule PHARYNGEAL STRIPPING WAVE: pharyngeal stripping wave present / diminished PHARYNGOESOPHAGEAL SEGMENT OPENING: complete distension and complete duration with no obstruction of flow TONGUE BASE RETRACTION: trace column of contrast between tongue base and posterior pharyngeal wall PHARYNGEAL RESIDUE: intermittent collection of residue within or on pharyngeal structures (valleculae); overall trace residue within or on pharyngeal structures ESOPHAGEAL PHASE CHARACTERIZED BY: ESOPHAGEAL BOLUS CLEARANCE IN THE UPRIGHT POSITION: could not view EFFECTS OF TREATMENT STRATEGIES ATTEMPTED: Use of straw = effective Chin tuck posture = moderately effective Reduced bolus size = moderately effective Cough and reswallow = ineffective Cued expectoration = ineffective DIET TEXTURE RECOMMENDATIONS: Will recommend a pureed textured, nectar thickened liquid diet with continued supplementation via alternative means of nutrition per dietary recommendations. COMPENSATORY STRATEGIES RECOMMENDED: Direct supervision with repositioning as needed, chin tuck, check for buccal pocketing, reduced bolus volumes, straws with all liquids, seated upright at 90 degrees during PO intake, remain upright for 30-60 minutes post meal (GERD precaution), medications crushed with applesauce. INTERPRETATION OF RESULTS: Patient presents with moderate to severe oropharyngeal dysphagia (R13.12) secondary to a right middle cerebral artery cerebrovascular accident requiring decompressed right craniotomy complicated by vocal fold paralysis. Oral preparatory phase marked by mild mastication inefficiency with slow, effortful albeit effective mastication with insufficient labial control resulting in frequent and copious left sided anterior bolus loss. Oral transport phase marked by suboptimal lingual control with noted slowed rate of lingual movements and mild / intermittent undulations; premature bolus loss of rather significant quantities, with larger portions of the bolus resting adjacent to an unprotected laryngeal vestibule prior to deglutition; and poor oral clearance secondary to reduced intraoral strength and sensitivity resulting in buccal pocketing. Pharyngeal phase primarily marked by impaired pharyngeal swallow onset timing resulting in suboptimal bolus location upon swallow onset ; and reduced closure of the airway during deglutition attributed to reduced hyolaryngeal excursion resulting in insufficient epiglottic inversion poor laryngeal vestibule closure / pressure / duration, with insufficient laryngeal vestibule pressure generated to expel penetrated material; all deficits directly contributing to prandial penetration without ejection and subsequent overt and silent aspiration events. All deficits controlled with bolus viscosity and volume adjustments in addition to execution of the chin tuck posture. Improved oral phase bolus containment with ingestion via straw vs. cup. Noted insufficient and inconsistent cough response generated to expel penetrated / aspirated material in response to laryngotracheal aspiration indicating significant dystussia vs. atussia. Patient noted to overtly aspirate during trials of thin liquids with larger volumes of laryngotracheal aspiration ; though also noted to SILENTLY aspirate with small volumes of thin liquids ( grade III with residual with the laryngeal vestibule from prior penetration / aspiration event), with clinical assessment at bedside relying on identification of classic overt signs and symptoms of aspiration unreliable. RECOMMENDATIONS: Would strongly discourage advancement past nectar thickened liquids without completion of a repeat modified barium swallow study due to the extent of aspirate identified that was both overt and SILENT in nature. Recommend a repeat modified barium swallow study within 4-6 weeks (if clinically appropriate ) to further assess the presence and extent of silent and overt aspiration prior to advancement to thin liquids. Patient requires intensive skilled speech- language intervention targeting continued diet texture management; training and implementation of recommended compensatory strategies; training and implementation of recommended oropharyngeal strengthening exercises to facilitate improved labial control / strength, lingual control / strength, laryngeal vestibule closure / pressure, and to a lesser extent pharyngeal motility; and Patient / caregiver training targeting meal preparation / thickened liquid preparation if unable to advance to baseline diet textures prior to discharge (somewhat likely). Patient considered at high risk of fatigue with return to PO intake, would consider limitations on meal duration if deemed necessary at bedside. Would recommend thorough training and strict adherence to recommended aspiration precautions, as the Patient is considered at high risk of aspiration related pulmonary complications due to the presence and extent of aspiration that was both overt (larger volumes) and silent ( reduced volumes) in nature, presence of bilateral vocal fold palsy both mechanical and neurological in nature, significance of dystussia vs. atussia, extent of neurological complications with cognitive deficits, left sided hemiplegia with the Patient functionally unable to ambulate or independently maintain upright seated positioning with aspiration consolidation also more likely to collect in the left lower lobes due to noted persistent left sided leaning. ADDITIONAL COMMENTS/RECOMMENDATIONS: Results and recommendations were discussed with the Patient immediately following MBS completion, with the Patient verbalizing understanding and agreement with all recommendations and education provided. IMAGE COUNT: [id number] Leonard Ye M.A., CCC-[employer]CH[employer] REPAIRER [facility] Speech-Language Pathology Department [email or web address]
[2018-03-07] MEDS: Baclofen 10 MG Tablet 15 MG PO ×2 (15:18→20:52)
--- NOTE | 2018-03-07 18:12 | NURSING ---
updated on new swallowing precaution orders and new diet.
[2018-03-07 20:21] VITALS: BP 128/74; PULSE 68; RESP 16; TEMP 36.7; O2SAT 98
[2018-03-07] MEDS: MELATONIN 3 MG TABLET PO (20:51)
[2018-03-07 20:53] VITALS: BP 128/74; PULSE 68
[2018-03-07] MEDS: QUEtiapine 25 MG Tablet 12.5 MG PO (20:57)
[2018-03-07 22:00] VITALS: PULSE 68; RESP 15
[2018-03-08] MEDS: Enoxaparin 40 MG/0.4 ML Syringe SC (05:32)
[2018-03-08] MEDS: Polyethylene Glycol 3350 17 GM PACKET PO (05:33)
[2018-03-08] MEDS: Baclofen 10 MG Tablet 15 MG PO ×2 (05:33→14:48)
[2018-03-08] MEDS: Menthol/Lanolin/Calamine/Znox 113 GM Tube 1 APPLIC TOPICAL ×2 (05:33→22:03)
[2018-03-08] MEDS: AMOXICILLIN 500 MG CAPSULE PO ×2 (05:33→14:48)
[2018-03-08 06:59] VITALS: O2SAT 96
[2018-03-08] MEDS: Hydrocortisone 2.5% Crm 1 APPLIC TOPICAL ×2 (08:16→22:03)
[2018-03-08] MEDS: busPIRone 5 MG Tablet 10 MG PO (08:16)
[2018-03-08] MEDS: Lacosamide 100 MG Tablet 200 MG PO ×2 (08:17→22:11)
[2018-03-08] MEDS: Pantoprazole Sodium 40 MG Tablet PO (08:18)
[2018-03-08] MEDS: Senna Tablet 2 TABLET PO (08:18)
[2018-03-08] MEDS: Loratadine 10 MG Tablet PO (08:18)
[2018-03-08] MEDS: Venlafaxine HCl 75 MG Tablet PO (08:18)
[2018-03-08] MEDS: levETIRAcetam 1,000 MG Tablet 1000 MG PO ×2 (08:19→22:10)
[2018-03-08 08:22] VITALS: BP 139/93; PULSE 68
[2018-03-08] MEDS: Metoprolol Tartrate 25 MG Tablet PO (08:22)
[2018-03-08 08:23] VITALS: BP 139/93; PULSE 68; RESP 18; TEMP 36.4; O2SAT 100
[2018-03-08 11:21] VITALS: BMI 18.5
--- NOTE | 2018-03-08 14:03 | NURSING ---
speech therapist saw patient and patient is now NPO until further evaluation d/t increased aspiration risk d/t increase tiredness.
--- NOTE | 2018-03-08 14:21 | NURSING ---
chef passenger vessel aware of npo status. recommendations jevity 1.5 360 cc bolus 4x/day with 260ml free water flushes with bolus.
[2018-03-08] MEDS: Jevity 1.5. 1,000 ML Bottle 360 ML GT ×2 (16:58→22:05)
[2018-03-08 19:11] VITALS: BP 152/98; PULSE 79; RESP 18; TEMP 36.7; O2SAT 97
[2018-03-08 19:29] VITALS: BMI 18.5
[2018-03-08] MEDS: busPIRone 5 MG Tablet 10 MG GT (22:02)
[2018-03-08] MEDS: Venlafaxine HCl 75 MG Tablet GT (22:03)
[2018-03-08] MEDS: QUEtiapine 25 MG Tablet 12.5 MG GT (22:07)
[2018-03-08 22:09] VITALS: PULSE 83
[2018-03-08] MEDS: MELATONIN 3 MG TABLET GT (22:09)
[2018-03-08] MEDS: Metoprolol Tartrate 25 MG Tablet GT (22:09)
[2018-03-08] MEDS: Baclofen 10 MG Tablet 15 MG GT (22:10)
[2018-03-09] MEDS: Baclofen 10 MG Tablet 15 MG GT ×3 (06:07→21:20)
[2018-03-09] MEDS: Enoxaparin 40 MG/0.4 ML Syringe SC (06:09)
[2018-03-09] MEDS: Menthol/Lanolin/Calamine/Znox 113 GM Tube 1 APPLIC TOPICAL ×2 (06:46→21:25)
[2018-03-09 09:56] VITALS: BP 112/77; PULSE 72; RESP 16; TEMP 36.8; O2SAT 97
[2018-03-09 09:58] VITALS: PULSE 72
[2018-03-09] MEDS: Lacosamide 100 MG Tablet 200 MG PO ×2 (09:58→21:17)
[2018-03-09] MEDS: busPIRone 5 MG Tablet 10 MG GT ×2 (09:59→21:26)
[2018-03-09] MEDS: Venlafaxine HCl 75 MG Tablet GT ×2 (09:59→21:25)
[2018-03-09] MEDS: Loratadine 10 MG Tablet GT (09:59)
[2018-03-09] MEDS: Famotidine 20 MG Tablet 40 MG GT (09:59)
[2018-03-09] MEDS: levETIRAcetam 1,000 MG Tablet 1000 MG PO ×2 (09:59→21:20)
[2018-03-09] MEDS: Acetaminophen 650 MG/20 ML UDC GT (10:00)
[2018-03-09] MEDS: Hydrocortisone 2.5% Crm 1 APPLIC TOPICAL ×2 (10:02→21:21)
[2018-03-09] MEDS: Jevity 1.5. 1,000 ML Bottle 360 ML GT ×4 (10:25→21:21)
[2018-03-09] MEDS: oxyCODONE 5 MG Tablet GT ×2 (11:06→19:27)
[2018-03-09 12:18] VITALS: BMI 18.5
[2018-03-09 19:41] VITALS: BP 105/61; PULSE 86; RESP 16; TEMP 36.6; O2SAT 98
[2018-03-09 21:00] VITALS: BMI 18.5
[2018-03-09] MEDS: QUEtiapine 25 MG Tablet 12.5 MG GT (21:18)
[2018-03-09 21:19] VITALS: PULSE 86
[2018-03-09] MEDS: MELATONIN 3 MG TABLET GT (21:19)
[2018-03-09] MEDS: Metoprolol Tartrate 25 MG Tablet GT (21:19)
[2018-03-10] MEDS: Baclofen 10 MG Tablet 15 MG GT ×3 (05:23→22:15)
[2018-03-10] MEDS: Enoxaparin 40 MG/0.4 ML Syringe SC (05:30)
[2018-03-10] MEDS: Menthol/Lanolin/Calamine/Znox 113 GM Tube 1 APPLIC TOPICAL ×2 (05:31→22:20)
[2018-03-10 08:30] VITALS: BP 118/80; PULSE 61; RESP 18; TEMP 36.6; O2SAT 93
[2018-03-10] MEDS: Famotidine 20 MG Tablet 40 MG GT (08:49)
[2018-03-10] MEDS: Venlafaxine HCl 75 MG Tablet GT ×2 (08:50→22:20)
[2018-03-10] MEDS: Acetaminophen 650 MG/20 ML UDC GT (08:50)
[2018-03-10] MEDS: busPIRone 5 MG Tablet 10 MG GT ×2 (08:50→22:20)
[2018-03-10] MEDS: Methocarbamol 750 MG Tablet PO (08:50)
[2018-03-10] MEDS: Lacosamide 100 MG Tablet 200 MG PO ×2 (08:50→22:07)
[2018-03-10] MEDS: levETIRAcetam 1,000 MG Tablet 1000 MG PO ×2 (08:50→22:16)
[2018-03-10] MEDS: Loratadine 10 MG Tablet GT (09:00)
[2018-03-10 09:01] VITALS: PULSE 61
[2018-03-10] MEDS: Jevity 1.5. 1,000 ML Bottle 360 ML GT ×4 (09:01→22:16)
--- NOTE | 2018-03-10 11:00 | NURSING ---
Dr. pritchard office called and message left to see if patient can start asa therapy for stroke prevention per dr honeycutt request.
[2018-03-10 11:18] VITALS: BMI 18.5
--- NOTE | 2018-03-10 12:01 | PCM.PN.NEU ---
Subjective: No issues overnight. Discussed patient care with nursing staff. 52 yr CM with recent admission to [facility] on 10/07/17 with aortic dissection, post surgery course complicated by Right MCA stroke, s/p craniectomy on 10/10/17, vocal cord paralysis being managed by ENT, seizure d/o-on Keppra and Vimpat, had prolonged hospital course, discharged to [facility] for about 2 weeks, then had respiratory failure needing intubation on 01/17/18, was discharged to TCU on 02/07/18, had PEG placed on 02/13/18, was readmitted to [facility] on 02/26/18 for cranioplasty, now admitted to [facility] for debility post right MCA stroke with prolonged hospital course, for > 3 hrs therapy, with a goal of returning back home at or near his prior level of functional independence. - Physical Exam General: Alert HEENT: Normocephalic, - - right sided cranioplasty sutures Neck: Supple Lungs: Clear to auscultation Cardiovascular: Normal S1, Normal S2 Abdomen: Bowel Sounds Present Extremities: No cyanosis Musculoskeletal: No Tenderness to Palpation of Joints or Extremities Neurological: - - consious, alert, AoAx3, CN-left 7th UMN facial palsy, power Right UE/LE 5/5, left UE/LE -0/5, spasticity both left UE/LE, plantars right flexor, left equivocal, denies any sensory loss, no cerebellar signs on the right, Reflexes +++ Left B/S/T/K/A, ++ Right B/S/T/K/A, gait deferred Vital Signs Temp Pulse Resp BP Pulse Ox 97.8 F 61 18 118/80 93 03/10/18 08:30 03/10/18 09:01 03/10/18 08:30 03/10/18 08:30 03/10/18 08:30 Oxygen Delivery Method Room Air Weight: 61.3 kg Body Mass Index (BMI) 18.5 Intake and Output for Last 24 Hours 03/08/18 03/09/18 03/10/18 23:59 23:59 23:59 Intake Total 2230 / 2230 3280 / 3280 780 / 780 Output Total 150 / 150 Balance 2230 / 2230 3130 / 3130 780 / 780 Medical Necessity - Tobacco Use Smoking Status: Former smoker Assessment/Plan All Active Problems (This Medical Record has been edited. Action required.) Aortic dissection (Acute) Acute right MCA stroke (Acute) Left hemiplegia (Acute) Acute kidney injury (Acute) Seizure disorder (Acute) Dysphagia (Acute) Vocal cord paralysis (Acute) Dysphagia (Acute) 52 yr CM with recent admission [facility] on 10/07/17 with aortic dissection, post surgery course complicated by Right MCA stroke, s/p craniectomy on 10/10/17, vocal cord paralysis being managed by ENT, seizure d/o-on Keppra and Vimpat, had prolonged hospital course, discharged to [facility] for about 2 weeks, then had respiratory failure needing intubation on 01/17/18, was discharged to TCU on 02/07/18, had PEG placed on 02/13/18, was readmitted to [facility] on 02/26/18 for cranioplasty, now admitted to [facility] for debility post right MCA stroke with prolonged hospital course, for > 3 hrs therapy, with a goal of returning back home at or near his prior level of functional independence Plan -PT for gait stability -OT for ADLs -Analgesics as needed -Bowel protocol -Daily weights and I/O -Aortic dissection-on metoprolol, no records available from [facility] -Right MCA stroke-complication after aortic dissection, s/p craniectomy (10/10/17) and cranioplasty (02/26/18), not on AP or statins, reasons unclear, no records available from [facility] regarding as to why no AP are given after stroke, will again try to reach out to Neurosurgery to clarify but have not been successful in getting records from them. -Spasticity (Left UE/LE)- ON Baclofen 15 mg PO TID. May benefit from Botox injections -Seizures- on Keppra 1000 mg PO BID and Vimpat 200 mg PO BID. Again no records about seizures received from [facility] -Anxiety/Depression- on Buspirone, Seroquel and Effexor -PEG tube feeding with Jevity @ 360 ml q 6 hrly. Has diarrhea, like TF related, will defer further dietary modifications to ST and wireless cellular technician -Vocal cord paralysis-management per ENT. -Goal BP < 130/80 mmHg -GI/DVT prophylaxis- Enoxaparin, SCDs and NITESH hose knee high. -Follow up with Neurosurgery Dr. Rendon (04/03/18), with ENT Dr. Dash Woodard at [facility] (03/17/18), suture removal at [facility] (03/21/18). -Fall precautions -Seizure precautions -Further medical management per hospitalist recommendations.
--- NOTE | 2018-03-10 12:06 | PN.NEURO_ITS ---
Subjective: No issues overnight. Discussed patient care with nursing staff. 52 yr CM with recent admission to [facility] on 10/07/17 with aortic dissection, post surgery course complicated by Right MCA stroke, s/p craniectomy on 10/10/17, vocal cord paralysis being managed by ENT, seizure d/o-on Keppra and Vimpat, had prolonged hospital course, discharged to [facility] for about 2 weeks, then had respiratory failure needing intubation on 01/17/18, was discharged to TCU on 02/07, had PEG placed on 02/13/18, was readmitted to [facility] on 02/26/18 for cranioplasty , now admitted to [facility] for debility post right MCA stroke with prolonged hospital course, for > 3 hrs therapy, with a goal of returning back home at or near his prior level of functional independence. - Physical Exam General: Alert HEENT: Normocephalic, - - right sided cranioplasty sutures Neck: Supple Lungs: Clear to auscultation Cardiovascular: Normal S1, Normal S2 Abdomen: Bowel Sounds Present Extremities: No cyanosis Musculoskeletal: No Tenderness to Palpation of Joints or Extremities Neurological: - - consious, alert, AoAx3, CN-left 7th UMN facial palsy, power Right UE/LE 5/5, left UE/LE -0/5, spasticity both left UE/LE, plantars right flexor, left equivocal, denies any sensory loss, no cerebellar signs on the right, Reflexes +++ Left B/S/T/K/A, ++ Right B/S/T/K/A, gait deferred Vital Signs Temp Pulse Resp BP Pulse Ox 97.8 F 61 18 118/80 93 03/10/18 08:30 03/10/18 09:01 03/10/18 08:30 03/10/18 08:30 03/10/18 08:30 Oxygen Delivery Method Room Air Weight: 61.3 kg Body Mass Index (BMI) 18.5 Intake and Output for Last 24 Hours 03/08/18 03/09/18 03/10/18 23:59 23:59 23:59 Intake Total 2230 / 2230 3280 / 3280 780 / 780 Output Total 150 / 150 Balance 2230 / 2230 3130 / 3130 780 / 780 Medical Necessity - Tobacco Use Smoking Status: Former smoker Assessment/Plan All Active Problems (This Medical Record has been edited. Action required.) Aortic dissection (Acute) Acute right MCA stroke (Acute) Left hemiplegia (Acute) Acute kidney injury (Acute) Seizure disorder (Acute) Dysphagia (Acute) Vocal cord paralysis (Acute) Dysphagia (Acute) 52 yr CM with recent admission to [facility] on 10/07/17 with aortic dissection, post surgery course complicated by Right MCA stroke, s/p craniectomy on 10/10/17, vocal cord paralysis being managed by ENT, seizure d/o-on Keppra and Vimpat, had prolonged hospital course, discharged to [facility] for about 2 weeks , then had respiratory failure needing intubation on 01/17/18, was discharged to TCU on 02/07/18, had PEG placed on 02/13/18, was readmitted to [facility] on 02/26/18 for cranioplasty, now admitted to [facility] for debility post right MCA stroke with prolonged hospital course, for > 3 hrs therapy, with a goal of returning back home at or near his prior level of functional independence Plan -PT for gait stability -OT for ADLs -Analgesics as needed -Bowel protocol -Daily weights and I/O -Aortic dissection-on metoprolol, no records available from [facility] -Right MCA stroke-complication after aortic dissection, s/p craniectomy (10/10/17 ) and cranioplasty (02/26/18), not on AP or statins, reasons unclear, no records available from [facility] regarding as to why no AP are given after stroke, will again try to reach out to Neurosurgery to clarify but have not been successful in getting records from them. -Spasticity (Left UE/LE)- ON Baclofen 15 mg PO TID. May benefit from Botox injections -Seizures- on Keppra 1000 mg PO BID and Vimpat 200 mg PO BID. Again no records about seizures received from [facility] -Anxiety/Depression- on Buspirone, Seroquel and Effexor -PEG tube feeding with Jevity @ 360 ml q 6 hrly. Has diarrhea, like TF related, will defer further dietary modifications to ST and stock turner -Vocal cord paralysis-management per ENT. -Goal BP < 130/80 mmHg -GI/DVT prophylaxis- Enoxaparin, SCDs and NITESH hose knee high. -Follow up with Neurosurgery Dr. Rendon (04/03/18), with ENT Dr. Dash Woodard at [place] (03/17/18), suture removal at [facility] (03/21/18). -Fall precautions -Seizure precautions -Further medical management per hospitalist recommendations.
[2018-03-10] MEDS: oxyCODONE 5 MG Tablet GT ×2 (12:54→22:43)
[2018-03-10] MEDS: Hydrocortisone 2.5% Crm 1 APPLIC TOPICAL ×2 (13:11→22:19)
--- NOTE | 2018-03-10 14:14 | PCM.PN.HOSP ---
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 Patient had a prolonged stay at a long-term acute care he apparently went into respiratory failure resulting in patient being intubated he was stabilized and transferred to the transitional care unit where he had a PEG placed on 02/13/2018. He was admitted to [facility] on 02/26/2018 for cranioplasty and subsequently transferred to the inpatient rehab unit Objective: GENERAL: cooperative HEENT: Craniotomy scar on scalp NECK; supple, normal thyroid, CHEST: Clear to auscultation bilaterally, HEART: Regular S1 S2, no audible murmurs ABDOMEN: soft, non-tender, normoactive bowel sounds, RECTAL: deferred EXTREMITIES: No edema, no clubbing, no cyanosis. 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; left upper extremity contractures paresis SKIN: No Rash Vitals/I&O's: Vital Signs Temp Pulse Resp BP Pulse Ox 97.8 F 61 18 118/80 93 03/10/18 08:30 03/10/18 09:01 03/10/18 08:30 03/10/18 08:30 03/10/18 08:30 Oxygen Delivery Method Room Air Weight: 61.3 kg Body Mass Index (BMI) 18.5 Intake and Output for Last 24 Hours 03/08/18 03/09/18 03/10/18 23:59 23:59 23:59 Intake Total 2230 / 2230 3280 / 3280 780 / 780 Output Total 150 / 150 Balance 2230 / 2230 3130 / 3130 780 / 780 Current Medications Acetaminophen (Tylenol Liquid) 650 mg GT Q6H PRN PRN PRN Reason: Mild Pain (0-3/10)/Headache Last Admin: 03/10/18 08:50 Dose: 650 mg Albuterol/Ipratropium (Duoneb) 3 ml INHALATION Q4H.RT PRN PRN Reason: SOB &/OR WHEEZING Baclofen (Lioresal) 15 mg GT TID [facility] Last Admin: 03/10/18 13:05 Dose: 15 mg Bisacodyl (Dulcolax) 10 mg RECTAL .PRN X 1 PRN PRN Reason: Constipation Buspirone HCl (Buspar) 10 mg GT BID [facility] Last Admin: 03/10/18 08:50 Dose: 10 mg Calamine/Phenol (Calmoseptine Ointment) 1 applic TOPICAL 0600,2200 [facility] PRN Reason: Protocol Last Admin: 03/10/18 05:31 Dose: 1 applicatio Enoxaparin Sodium (Lovenox) 40 mg SC DAILY@0600 [facility] Last Admin: 03/10/18 05:30 Dose: 40 mg Enteral Nutritional Formula (Jevity 1.5) 360 ml GT 4X/DAY [facility] Last Admin: 03/10/18 09:01 Dose: 360 ml Famotidine (Pepcid) 40 mg GT DAILY [facility] Last Admin: 03/10/18 08:49 Dose: 40 mg Hydrocortisone (Hytone) 1 applic TOPICAL BID [facility] PRN Reason: Protocol Last Admin: 03/10/18 13:11 Dose: 1 applicatio Lacosamide (Vimpat) 200 mg PO BID [facility] Last Admin: 03/10/18 08:50 Dose: 200 mg Levetiracetam (Keppra Tablet) 1,000 mg PO BID [facility] Last Admin: 03/10/18 08:50 Dose: 1,000 mg Loratadine (Claritin) 10 mg GT DAILY [facility] Last Admin: 03/10/18 09:00 Dose: 10 mg Magnesium Hydroxide (Milk Of Magnesia) 30 ml GT .PRN X 1 PRN PRN Reason: Constipation Melatonin (Melatonin) 3 mg GT QHS [facility] Last Admin: 03/09/18 21:19 Dose: 3 mg Methocarbamol (Methocarbamol) 750 mg PO TID PRN PRN Reason: MUSCLE SPASM Last Admin: 03/10/18 08:50 Dose: 750 mg Metoprolol Tartrate (Lopressor (Beta Jose Juan)) 25 mg GT BID [facility] Last Admin: 03/10/18 09:01 Dose: Not Given Oxycodone HCl (Oxyir) 5 mg GT Q6H PRN PRN PRN Reason: SEVERE PAIN (6-10/10) Last Admin: 03/10/18 12:54 Dose: 5 mg Polyethylene Glycol (Miralax) 17 gm GT DAILY@0600 [facility] Last Admin: 03/10/18 05:37 Dose: Not Given Quetiapine Fumarate (Seroquel) 12.5 mg GT QHS [facility] Last Admin: 03/09/18 21:18 Dose: 12.5 mg Senna (Senokot) 2 tablet GT BID [facility] Last Admin: 03/10/18 10:28 Dose: Not Given Venlafaxine HCl (Effexor) 75 mg GT BID [facility] Last Admin: 03/10/18 08:50 Dose: 75 mg Medical Necessity - Tobacco Use Smoking Status: Former smoker Assessment/Plan All Active Problems (This Medical Record has been edited. Action required.) Aortic dissection (Acute) Acute right MCA stroke (Acute) Left hemiplegia (Acute) Acute kidney injury (Acute) Seizure disorder (Acute) Dysphagia (Acute) Vocal cord paralysis (Acute) Dysphagia (Acute) Patient is a 52-year-old male with recent complicated past medical history including aortic section for which patient underwent surgery at [facility] which was complicated by a right MCA stroke in September 2017. Patient had a prolonged stay at a long-term acute care he apparently went into respiratory failure resulting in patient being intubated he was stabilized and transferred to the transitional care unit where he had a PEG placed on 02/13/2018. He was admitted to [facility] on 02/26/2018 for cranioplasty and subsequently transferred to the inpatient rehab unit Right MCA stroke with residual left-sided hemiparesis: Patient has been admitted to the inpatient rehab unit where he is currently undergoing PT and OT 2. Aortic dissection status post surgery 3. Seizure disorder patient is on Keppra 4. DVT prophylaxis patient is a low molecular weight heparin Active Medications Acetaminophen (Tylenol Liquid) 650 mg GT Q6H PRN PRN PRN Reason: Mild Pain (0-3/10)/Headache Last Admin: 03/10/18 08:50 Dose: 650 mg Albuterol/Ipratropium (Duoneb) 3 ml INHALATION Q4H.RT PRN PRN Reason: SOB &/OR WHEEZING Baclofen (Lioresal) 15 mg GT TID [facility] Last Admin: 03/10/18 13:05 Dose: 15 mg Bisacodyl (Dulcolax) 10 mg RECTAL .PRN X 1 PRN PRN Reason: Constipation Buspirone HCl (Buspar) 10 mg GT BID [facility] Last Admin: 03/10/18 08:50 Dose: 10 mg Calamine/Phenol (Calmoseptine Ointment) 1 applic TOPICAL 0600,2200 [facility] PRN Reason: Protocol Last Admin: 03/10/18 05:31 Dose: 1 applicatio Enoxaparin Sodium (Lovenox) 40 mg SC DAILY@0600 [facility] Last Admin: 03/10/18 05:30 Dose: 40 mg Enteral Nutritional Formula (Jevity 1.5) 360 ml GT 4X/DAY [facility] Last Admin: 03/10/18 09:01 Dose: 360 ml Famotidine (Pepcid) 40 mg GT DAILY [facility] Last Admin: 03/10/18 08:49 Dose: 40 mg Hydrocortisone (Hytone) 1 applic TOPICAL BID [facility] PRN Reason: Protocol Last Admin: 03/10/18 13:11 Dose: 1 applicatio Lacosamide (Vimpat) 200 mg PO BID [facility] Last Admin: 03/10/18 08:50 Dose: 200 mg Levetiracetam (Keppra Tablet) 1,000 mg PO BID [facility] Last Admin: 03/10/18 08:50 Dose: 1,000 mg Loratadine (Claritin) 10 mg GT DAILY [facility] Last Admin: 03/10/18 09:00 Dose: 10 mg Magnesium Hydroxide (Milk Of Magnesia) 30 ml GT .PRN X 1 PRN PRN Reason: Constipation Melatonin (Melatonin) 3 mg GT QHS [facility] Last Admin: 03/09/18 21:19 Dose: 3 mg Methocarbamol (Methocarbamol) 750 mg PO TID PRN PRN Reason: MUSCLE SPASM Last Admin: 03/10/18 08:50 Dose: 750 mg Metoprolol Tartrate (Lopressor (Beta Jose Juan)) 25 mg GT BID [facility] Last Admin: 03/10/18 09:01 Dose: Not Given Oxycodone HCl (Oxyir) 5 mg GT Q6H PRN PRN PRN Reason: SEVERE PAIN (6-10/10) Last Admin: 03/10/18 12:54 Dose: 5 mg Polyethylene Glycol (Miralax) 17 gm GT DAILY@0600 [facility] Last Admin: 03/10/18 05:37 Dose: Not Given Quetiapine Fumarate (Seroquel) 12.5 mg GT QHS [facility] Last Admin: 03/09/18 21:18 Dose: 12.5 mg Senna (Senokot) 2 tablet GT BID [facility] Last Admin: 03/10/18 10:28 Dose: Not Given Venlafaxine HCl (Effexor) 75 mg GT BID [facility] Last Admin: 03/10/18 08:50 Dose: 75 mg Code Visit Inpatient E&M: 30255 Subs Hosp L2
--- NOTE | 2018-03-10 16:06 | CHAPLAIN ---
Type of Pastoral Visit _x__ Initial Visit ___ Follow-up Visit ___ On-call Visit ___ General Patient Visit ___ Spiritual Assessment ___ Family Conference ___ Bereavement ___ Rapid Response ___ Code Blue ___ Other (describe below) Pastoral Care Referral From _x__ Patient ___ Family ___ Nurse ___ Physician ___ Residential Life Director ___ Oil Expeller ___ Other (describe below) Sacrament/Intervention _x__ Active listening ___ Anointing ___ Roman Catholic ___ Bereavement ___ Communion _x__ Sarah exploration ___ ___ Life review _x__ Prayer ___ Reconciliation ___ Sacrament of Sick _x__ Supportive presence ___ Wedding ___ Other (describe below) Pastoral Comments met this patient in his previous admission in TCU; affirmed patient in his improvement and his perseverance; pt goal is to keep working at therapy and for his voice to be restored; pt requests prayer for these concerns; pt reports good support from family and he has many cards etc in his room to illustrate many well wishers;
[2018-03-10 22:00] VITALS: BP 112/71; PULSE 72; RESP 18; TEMP 36.3; O2SAT 95; BMI 18.5
[2018-03-10] MEDS: QUEtiapine 25 MG Tablet 12.5 MG GT (22:07)
[2018-03-10 22:14] VITALS: PULSE 67
[2018-03-10] MEDS: MELATONIN 3 MG TABLET GT (22:14)
[2018-03-10] MEDS: Metoprolol Tartrate 25 MG Tablet GT (22:14)
[2018-03-11] MEDS: Baclofen 10 MG Tablet 15 MG GT ×3 (05:11→21:22)
[2018-03-11] MEDS: Enoxaparin 40 MG/0.4 ML Syringe SC (05:11)
[2018-03-11] MEDS: Menthol/Lanolin/Calamine/Znox 113 GM Tube 1 APPLIC TOPICAL (05:12)
[2018-03-11] MEDS: oxyCODONE 5 MG Tablet GT ×3 (05:15→21:20)
[2018-03-11 07:37] VITALS: BP 135/80; PULSE 65; RESP 18; TEMP 36.7; O2SAT 95
[2018-03-11] MEDS: Lacosamide 100 MG Tablet 200 MG PO ×2 (08:41→21:14)
[2018-03-11] MEDS: levETIRAcetam 1,000 MG Tablet 1000 MG PO ×2 (08:42→21:23)
[2018-03-11] MEDS: Venlafaxine HCl 75 MG Tablet GT ×2 (08:42→21:25)
[2018-03-11] MEDS: busPIRone 5 MG Tablet 10 MG GT ×2 (08:42→21:24)
[2018-03-11] MEDS: Famotidine 20 MG Tablet 40 MG GT (08:42)
[2018-03-11] MEDS: Senna Tablet 2 TABLET GT ×2 (08:43→21:21)
[2018-03-11] MEDS: Acetaminophen 650 MG/20 ML UDC GT (08:43)
[2018-03-11 08:44] VITALS: PULSE 70
[2018-03-11] MEDS: Metoprolol Tartrate 25 MG Tablet GT ×2 (08:44→21:22)
[2018-03-11] MEDS: Loratadine 10 MG Tablet GT (09:15)
--- NOTE | 2018-03-11 10:15 | PN.NEURO_ITS ---
Subjective: No issues overnight. Patient care discussed with nursing staff. Per nursing staff Dr. Julieta Conrad's PA was contacted yesterday, who wanted patient to be started on ASA on 03/15/18 (10 days post OP). - Physical Exam General: Alert HEENT: Normocephalic, - - right sided cranioplasty sutures Neck: Supple Lungs: Clear to auscultation Cardiovascular: Normal S1, Normal S2 Abdomen: Bowel Sounds Present Extremities: No cyanosis Musculoskeletal: No Tenderness to Palpation of Joints or Extremities Neurological: - - consious, alert, AoAx3, CN-left 7th UMN facial palsy, power Right UE/LE 5/5, left UE/LE -0/5, spasticity both left UE/LE, plantars right flexor, left equivocal, denies any sensory loss, no cerebellar signs on the right, Reflexes +++ Left B/S/T/K/A, ++ Right B/S/T/K/A, gait deferred Psych/Mental Status: Normal Affect Vital Signs Temp Pulse Resp BP Pulse Ox 98.1 F 70 18 135/80 H 95 03/11/18 07:37 03/11/18 08:44 03/11/18 07:37 03/11/18 07:37 03/11/18 07:37 Oxygen Delivery Method Room Air Weight: 58.2 kg Body Mass Index (BMI) 18.5 Intake and Output for Last 24 Hours 03/09/18 03/10/18 03/11/18 23:59 23:59 23:59 Intake Total 3280 / 3280 3940 / 3940 160 / 160 Output Total 150 / 150 700 / 700 150 / 150 Balance 3130 / 3130 3240 / 3240 Medical Necessity - Tobacco Use Smoking Status: Former smoker Assessment/Plan All Active Problems (This Medical Record has been edited. Action required.) Aortic dissection (Acute) Acute right MCA stroke (Acute) Left hemiplegia (Acute) Acute kidney injury (Acute) Seizure disorder (Acute) Dysphagia (Acute) Vocal cord paralysis (Acute) Dysphagia (Acute) 52 yr CM with recent admission to [facility] on 10/07/17 with aortic dissection, post surgery course complicated by Right MCA stroke, s/p craniectomy on 10/10/17, vocal cord paralysis being managed by ENT, seizure d/o-on Keppra and Vimpat, had prolonged hospital course, discharged to [facility] for about 2 weeks , then had respiratory failure needing intubation on 01/17/18, was discharged to TCU on 02/07/18, had PEG placed on 02/13/18, was readmitted to [facility] on 02/26/18 for cranioplasty, now admitted to [facility] for debility post right MCA stroke with prolonged hospital course, for > 3 hrs therapy, with a goal of returning back home at or near his prior level of functional independence Plan -PT for gait stability -OT for ADLs -Analgesics as needed -Bowel protocol -Daily weights and I/O -Aortic dissection-on metoprolol, no records available from [facility] -Right MCA stroke-complication after aortic dissection, s/p craniectomy (10/10/17 ) and cranioplasty (02/26/18), not on AP or statins, reasons unclear, no records available from [facility] regarding as to why no AP are given after stroke, reached out to Neurosurgery to clarify and per Dr. Rendon's PA, patient can be started on ASA 81 mg PO once daily from 03/15/18 (10 days post op). Will check CT head without contrast on 03/14/18 prior to starting ASA on 03/15. -Spasticity (Left UE/LE)- ON Baclofen 15 mg PO TID. May benefit from Botox injections -Seizures- on Keppra 1000 mg PO BID and Vimpat 200 mg PO BID. Again no records about seizures received from [facility] -Anxiety/Depression- on Buspirone, Seroquel and Effexor -PEG tube feeding with Jevity. Diarrhea has improved per nursing staff. will defer further dietary modifications to ST and pediatric rn -Vocal cord paralysis-management per ENT. -Goal BP < 130/80 mmHg -GI/DVT prophylaxis- Enoxaparin, SCDs and NITESH hose knee high. -Follow up with Neurosurgery Dr. Rendon (04/03/18), with ENT Dr. Dash Woodard at [facility] (03/17/18), suture removal at [facility] (03/21/18). -Fall precautions -Seizure precautions -Further medical management per hospitalist recommendations.
[2018-03-11] MEDS: Jevity 1.5. 1,000 ML Bottle 360 ML GT (11:18)
[2018-03-11] MEDS: Hydrocortisone 2.5% Crm 1 APPLIC TOPICAL ×2 (11:26→21:23)
--- NOTE | 2018-03-11 12:00 | NURSING ---
Anamaria Betancourt physician retail loan originator assistant for dr macho villanueva for asa 81 mg to start on 8-[address] tangela murillo.
[2018-03-11 13:04] VITALS: BMI 18.5
[2018-03-11 19:06] VITALS: BP 134/82; PULSE 64; RESP 20; TEMP 36.4; O2SAT 97
[2018-03-11] MEDS: QUEtiapine 25 MG Tablet 12.5 MG GT (21:14)
[2018-03-11] MEDS: MELATONIN 3 MG TABLET GT (21:21)
[2018-03-11 21:22] VITALS: BP 134/82; PULSE 64
[2018-03-11] MEDS: Jevity 1.5. 1,000 ML Bottle 300 ML GT (21:28)
[2018-03-12] MEDS: Jevity 1.5. 1,000 ML Bottle 300 ML GT ×2 (04:33→21:40)
[2018-03-12] MEDS: Polyethylene Glycol 3350 17 GM PACKET GT (05:13)
[2018-03-12] MEDS: Baclofen 10 MG Tablet 15 MG GT ×3 (05:13→21:37)
[2018-03-12] MEDS: Enoxaparin 40 MG/0.4 ML Syringe SC (05:13)
[2018-03-12] MEDS: oxyCODONE 5 MG Tablet GT ×4 (05:14→21:44)
--- NOTE | 2018-03-12 08:33 | PCM.PN.HOSP ---
Subjective: Patient seen complains of pain in the left lower extremity after therapy his OxyIR dose adjusted from 5 mg every 6-5 mg every 4 Objective: GENERAL: cooperative HEENT: Craniotomy scar on scalp NECK; supple, normal thyroid, CHEST: Clear to auscultation bilaterally, HEART: Regular S1 S2, no audible murmurs ABDOMEN: soft, non-tender, normoactive bowel sounds, RECTAL: deferred EXTREMITIES: No edema, no clubbing, no cyanosis. 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; left upper extremity contractures paresis SKIN: No Rash Vitals/I&O's: Vital Signs Temp Pulse Resp BP Pulse Ox 97.6 F L 64 20 H 134/82 H 97 03/11/18 19:06 03/11/18 21:22 03/11/18 19:06 03/11/18 21:22 03/11/18 19:06 Oxygen Delivery Method Room Air Weight: 61.6 kg Body Mass Index (BMI) 18.5 Intake and Output for Last 24 Hours 03/10/18 03/11/18 03/12/18 23:59 23:59 23:59 Intake Total 3940 / 3940 3170 / 3170 520 / 520 Output Total 700 / 700 550 / 550 120 / 120 Balance 3240 / 3240 2620 / 2620 400 / 400 Current Medications Acetaminophen (Tylenol Liquid) 650 mg GT Q6H PRN PRN PRN Reason: Mild Pain (0-3/10)/Headache Last Admin: 03/11/18 08:43 Dose: 650 mg Albuterol/Ipratropium (Duoneb) 3 ml INHALATION Q4H.RT PRN PRN Reason: SOB &/OR WHEEZING Aspirin (Aspirin, Baby) 81 mg PO DAILY@0800 [facility] Baclofen (Lioresal) 15 mg GT TID [facility] Last Admin: 03/12/18 05:13 Dose: 15 mg Bisacodyl (Dulcolax) 10 mg RECTAL .PRN X 1 PRN PRN Reason: Constipation Buspirone HCl (Buspar) 10 mg GT BID [facility] Last Admin: 03/11/18 21:24 Dose: 10 mg Calamine/Phenol (Calmoseptine Ointment) 1 applic TOPICAL 0600,2200 [facility] PRN Reason: Protocol Last Admin: 03/12/18 04:33 Dose: Not Given Enoxaparin Sodium (Lovenox) 40 mg SC DAILY@0600 [facility] Last Admin: 03/12/18 05:13 Dose: 40 mg Enteral Nutritional Formula (Jevity 1.5) 300 ml GT 0800,1200,1700 [facility] Last Admin: 03/11/18 18:26 Dose: Not Given Enteral Nutritional Formula (Jevity 1.5) 300 ml GT 2200,0500 [facility] Last Admin: 03/12/18 04:33 Dose: 300 mls Famotidine (Pepcid) 40 mg GT DAILY [facility] Last Admin: 03/11/18 08:42 Dose: 40 mg Hydrocortisone (Hytone) 1 applic TOPICAL BID [facility] PRN Reason: Protocol Last Admin: 03/11/18 21:23 Dose: 1 applicatio Lacosamide (Vimpat) 200 mg PO BID [facility] Last Admin: 03/11/18 21:14 Dose: 200 mg Levetiracetam (Keppra Tablet) 1,000 mg PO BID [facility] Last Admin: 03/11/18 21:23 Dose: 1,000 mg Loratadine (Claritin) 10 mg GT DAILY [facility] Last Admin: 03/11/18 09:15 Dose: 10 mg Magnesium Hydroxide (Milk Of Magnesia) 30 ml GT .PRN X 1 PRN PRN Reason: Constipation Melatonin (Melatonin) 3 mg GT QHS [facility] Last Admin: 03/11/18 21:21 Dose: 3 mg Methocarbamol (Methocarbamol) 750 mg PO TID PRN PRN Reason: MUSCLE SPASM Last Admin: 03/10/18 08:50 Dose: 750 mg Metoprolol Tartrate (Lopressor (Beta Jose Juan)) 25 mg GT BID [facility] Last Admin: 03/11/18 21:22 Dose: 25 mg Oxycodone HCl (Oxyir) 5 mg GT Q6H PRN PRN PRN Reason: SEVERE PAIN (6-10/10) Last Admin: 03/12/18 05:14 Dose: 5 mg Polyethylene Glycol (Miralax) 17 gm GT DAILY@0600 [facility] Last Admin: 03/12/18 05:13 Dose: 17 gm Quetiapine Fumarate (Seroquel) 12.5 mg GT QHS [facility] Last Admin: 03/11/18 21:14 Dose: 12.5 mg Senna (Senokot) 2 tablet GT BID [facility] Last Admin: 03/11/18 21:21 Dose: 2 tablet Venlafaxine HCl (Effexor) 75 mg GT BID [facility] Last Admin: 03/11/18 21:25 Dose: 75 mg Medical Necessity - Tobacco Use Smoking Status: Former smoker Assessment/Plan All Active Problems (This Medical Record has been edited. Action required.) Aortic dissection (Acute) Acute right MCA stroke (Acute) Left hemiplegia (Acute) Acute kidney injury (Acute) Seizure disorder (Acute) Dysphagia (Acute) Vocal cord paralysis (Acute) Dysphagia (Acute) Patient is a 52-year-old male with recent complicated past medical history including aortic section for which patient underwent surgery at [facility] which was complicated by a right MCA stroke in September 2017. Patient had a prolonged stay at a long-term acute care he apparently went into respiratory failure resulting in patient being intubated he was stabilized and transferred to the transitional care unit where he had a PEG placed on 02/13/2018. He was admitted to [facility] on 02/26/2018 for cranioplasty and subsequently transferred to the inpatient rehab unit Right MCA stroke with residual left-sided hemiparesis: Patient has been admitted to the inpatient rehab unit where he is currently undergoing PT and OT 2. Aortic dissection status post surgery 3. Seizure disorder patient is on Keppra 4. DVT prophylaxis patient is a low molecular weight heparin Active Medications Acetaminophen (Tylenol Liquid) 650 mg GT Q6H PRN PRN PRN Reason: Mild Pain (0-3/10)/Headache Last Admin: 03/10/18 08:50 Dose: 650 mg Albuterol/Ipratropium (Duoneb) 3 ml INHALATION Q4H.RT PRN PRN Reason: SOB &/OR WHEEZING Baclofen (Lioresal) 15 mg GT TID [facility] Last Admin: 03/10/18 13:05 Dose: 15 mg Bisacodyl (Dulcolax) 10 mg RECTAL .PRN X 1 PRN PRN Reason: Constipation Buspirone HCl (Buspar) 10 mg GT BID [facility] Last Admin: 03/10/18 08:50 Dose: 10 mg Calamine/Phenol (Calmoseptine Ointment) 1 applic TOPICAL 0600,2200 [facility] PRN Reason: Protocol Last Admin: 03/10/18 05:31 Dose: 1 applicatio Enoxaparin Sodium (Lovenox) 40 mg SC DAILY@0600 [facility] Last Admin: 03/10/18 05:30 Dose: 40 mg Enteral Nutritional Formula (Jevity 1.5) 360 ml GT 4X/DAY [facility] Last Admin: 03/10/18 09:01 Dose: 360 ml Famotidine (Pepcid) 40 mg GT DAILY [facility] Last Admin: 03/10/18 08:49 Dose: 40 mg Hydrocortisone (Hytone) 1 applic TOPICAL BID [facility] PRN Reason: Protocol Last Admin: 03/10/18 13:11 Dose: 1 applicatio Lacosamide (Vimpat) 200 mg PO BID [facility] Last Admin: 03/10/18 08:50 Dose: 200 mg Levetiracetam (Keppra Tablet) 1,000 mg PO BID [facility] Last Admin: 03/10/18 08:50 Dose: 1,000 mg Loratadine (Claritin) 10 mg GT DAILY [facility] Last Admin: 03/10/18 09:00 Dose: 10 mg Magnesium Hydroxide (Milk Of Magnesia) 30 ml GT .PRN X 1 PRN PRN Reason: Constipation Melatonin (Melatonin) 3 mg GT QHS [facility] Last Admin: 03/09/18 21:19 Dose: 3 mg Methocarbamol (Methocarbamol) 750 mg PO TID PRN PRN Reason: MUSCLE SPASM Last Admin: 03/10/18 08:50 Dose: 750 mg Metoprolol Tartrate (Lopressor (Beta Jose Juan)) 25 mg GT BID [facility] Last Admin: 03/10/18 09:01 Dose: Not Given Oxycodone HCl (Oxyir) 5 mg GT Q6H PRN PRN PRN Reason: SEVERE PAIN (6-10/10) Last Admin: 03/10/18 12:54 Dose: 5 mg Polyethylene Glycol (Miralax) 17 gm GT DAILY@0600 [facility] Last Admin: 03/10/18 05:37 Dose: Not Given Quetiapine Fumarate (Seroquel) 12.5 mg GT QHS [facility] Last Admin: 03/09/18 21:18 Dose: 12.5 mg Senna (Senokot) 2 tablet GT BID [facility] Last Admin: 03/10/18 10:28 Dose: Not Given Venlafaxine HCl (Effexor) 75 mg GT BID [facility] Last Admin: 03/10/18 08:50 Dose: 75 mg Code Visit Inpatient E&M: 23239 Subs Hosp L2
[2018-03-12 09:28] VITALS: BP 121/76; PULSE 67; RESP 16; TEMP 36.4; O2SAT 95
[2018-03-12] MEDS: Hydrocortisone 2.5% Crm 1 APPLIC TOPICAL ×2 (10:30→21:38)
[2018-03-12] MEDS: busPIRone 5 MG Tablet 10 MG GT ×2 (10:31→21:39)
[2018-03-12] MEDS: Famotidine 20 MG Tablet 40 MG GT (10:31)
[2018-03-12] MEDS: levETIRAcetam 1,000 MG Tablet 1000 MG PO ×2 (10:31→21:38)
[2018-03-12] MEDS: Venlafaxine HCl 75 MG Tablet GT ×2 (10:31→21:40)
[2018-03-12] MEDS: Senna Tablet 2 TABLET GT ×2 (10:31→21:36)
[2018-03-12] MEDS: Loratadine 10 MG Tablet GT (10:31)
[2018-03-12] MEDS: Lacosamide 100 MG Tablet 200 MG PO ×2 (10:37→21:34)
[2018-03-12 10:39] VITALS: BP 121/76; PULSE 67
[2018-03-12] MEDS: Metoprolol Tartrate 25 MG Tablet GT ×2 (10:39→21:37)
--- NOTE | 2018-03-12 11:11 | PCM.PN.NEU ---
Subjective: No issues overnight. Per patient he has lower back pain with radicular symptoms and pain in the thigh. Seen by the hospitalist and opioid dose adjusted. Denies any calf pain. Patient care discussed with nursing staff. - Physical Exam General: Alert HEENT: Normocephalic, - - right cranioplasty sutures Neck: Supple Lungs: Clear to auscultation Cardiovascular: Normal S1, Normal S2 Abdomen: Bowel Sounds Present Extremities: No cyanosis Skin: - Musculoskeletal: No Tenderness to Palpation of Joints or Extremities Neurological: - - consious, alert, AoAx3, CN-left 7th UMN facial palsy, power Right UE/LE 5/5, left UE/LE -0/5, spasticity both left UE/LE, plantars right flexor, left equivocal, denies any sensory loss, no cerebellar signs on the right, Reflexes +++ Left B/S/T/K/A, ++ Right B/S/T/K/A gait deferred Psych/Mental Status: Normal Affect Vital Signs Temp Pulse Resp BP Pulse Ox 97.6 F L 67 16 121/76 H 95 03/12/18 09:28 03/12/18 10:39 03/12/18 09:28 03/12/18 10:39 03/12/18 09:28 Oxygen Delivery Method Room Air Weight: 61.6 kg Body Mass Index (BMI) 18.5 Intake and Output for Last 24 Hours 03/10/18 03/11/18 03/12/18 23:59 23:59 23:59 Intake Total 3940 / 3940 3170 / 3170 640 / 640 Output Total 700 / 700 550 / 550 120 / 120 Balance 3240 / 3240 2620 / 2620 520 / 520 Medical Necessity - Tobacco Use Smoking Status: Former smoker Assessment/Plan All Active Problems (This Medical Record has been edited. Action required.) Aortic dissection (Acute) Acute right MCA stroke (Acute) Left hemiplegia (Acute) Acute kidney injury (Acute) Seizure disorder (Acute) Dysphagia (Acute) Vocal cord paralysis (Acute) Dysphagia (Acute) 52 yr CM with recent admission to [facility] on 10/07/17 with aortic dissection, post surgery course complicated by Right MCA stroke, s/p craniectomy on 10/10/17, vocal cord paralysis being managed by ENT, seizure d/o-on Keppra and Vimpat, had prolonged hospital course, discharged to [facility] for about 2 weeks, then had respiratory failure needing intubation on 01/17/18, was discharged to TCU on 02/07/18, had PEG placed on 02/13/18, was readmitted to [facility] on 02/26/18 for cranioplasty, now admitted to [facility] for debility post right MCA stroke with prolonged hospital course, for > 3 hrs therapy, with a goal of returning back home at or near his prior level of functional independence Plan -PT for gait stability -OT for ADLs -Analgesics as needed -Bowel protocol -Daily weights and I/O -Complaints of lower back pain with some radicular symptoms and thigh pain- Start Gabapentin 100 mg PO TID for 5 days then increase to 300 mg PO TID. S/E discussed with patient. -Aortic dissection-on metoprolol, no records available from [facility] -Right MCA stroke-complication after aortic dissection, s/p craniectomy (10/10/17) and cranioplasty (02/26/18), not on AP or statins, reasons unclear, no records available from [facility] regarding as to why no AP are given after stroke, reached out to Neurosurgery to clarify and per Dr. Rendon's PA, patient can be started on ASA 81 mg PO once daily from 03/15/18 (10 days post op). Will check CT head without contrast on 03/14/18 prior to starting ASA on 03/15. -Spasticity (Left UE/LE)- ON Baclofen 15 mg PO TID. May benefit from Botox injections -Seizures- on Keppra 1000 mg PO BID and Vimpat 200 mg PO BID. Again no records about seizures received from [facility] -Anxiety/Depression- on Buspirone, Seroquel and Effexor -PEG tube feeding with Jevity. Diarrhea has improved per nursing staff. will defer further dietary modifications to ST and crap game box person -Vocal cord paralysis-management per ENT. -Goal BP < 130/80 mmHg -GI/DVT prophylaxis- Enoxaparin, SCDs and NITESH hose knee high. -Follow up with Neurosurgery Dr. Rendon (04/03/18), with ENT Dr. Dash Woodard at [place] (03/17/18), suture removal at [facility] (03/21/18). -Fall precautions -Seizure precautions -Further medical management per hospitalist recommendations.
--- NOTE | 2018-03-12 11:15 | PN.NEURO_ITS ---
Subjective: No issues overnight. Per patient he has lower back pain with radicular symptoms and pain in the thigh. Seen by the hospitalist and opioid dose adjusted. Denies any calf pain. Patient care discussed with nursing staff. - Physical Exam General: Alert HEENT: Normocephalic, - - right cranioplasty sutures Neck: Supple Lungs: Clear to auscultation Cardiovascular: Normal S1, Normal S2 Abdomen: Bowel Sounds Present Extremities: No cyanosis Skin: - Musculoskeletal: No Tenderness to Palpation of Joints or Extremities Neurological: - - consious, alert, AoAx3, CN-left 7th UMN facial palsy, power Right UE/LE 5/5, left UE/LE -0/5, spasticity both left UE/LE, plantars right flexor, left equivocal, denies any sensory loss, no cerebellar signs on the right, Reflexes +++ Left B/S/T/K/A, ++ Right B/S/T/K/A gait deferred Psych/Mental Status: Normal Affect Vital Signs Temp Pulse Resp BP Pulse Ox 97.6 F L 67 16 121/76 H 95 03/12/18 09:28 03/12/18 10:39 03/12/18 09:28 03/12/18 10:39 03/12/18 09:28 Oxygen Delivery Method Room Air Weight: 61.6 kg Body Mass Index (BMI) 18.5 Intake and Output for Last 24 Hours 03/10/18 03/11/18 03/12/18 23:59 23:59 23:59 Intake Total 3940 / 3940 3170 / 3170 640 / 640 Output Total 700 / 700 550 / 550 120 / 120 Balance 3240 / 3240 2620 / 2620 520 / 520 Medical Necessity - Tobacco Use Smoking Status: Former smoker Assessment/Plan All Active Problems (This Medical Record has been edited. Action required.) Aortic dissection (Acute) Acute right MCA stroke (Acute) Left hemiplegia (Acute) Acute kidney injury (Acute) Seizure disorder (Acute) Dysphagia (Acute) Vocal cord paralysis (Acute) Dysphagia (Acute) 52 yr CM with recent admission to [facility] on 10/07/17 with aortic dissection, post surgery course complicated by Right MCA stroke, s/p craniectomy on 10/10/17, vocal cord paralysis being managed by ENT, seizure d/o-on Keppra and Vimpat, had prolonged hospital course, discharged to [facility] for about 2 weeks , then had respiratory failure needing intubation on 01/17/18, was discharged to TCU on 02/07/18, had PEG placed on 02/13/18, was readmitted to [facility] on 02/26/18 for cranioplasty, now admitted to [facility] for debility post right MCA stroke with prolonged hospital course, for > 3 hrs therapy, with a goal of returning back home at or near his prior level of functional independence Plan -PT for gait stability -OT for ADLs -Analgesics as needed -Bowel protocol -Daily weights and I/O -Complaints of lower back pain with some radicular symptoms and thigh pain- Start Gabapentin 100 mg PO TID for 5 days then increase to 300 mg PO TID. S/E discussed with patient. -Aortic dissection-on metoprolol, no records available from [facility] -Right MCA stroke-complication after aortic dissection, s/p craniectomy (10/10/17 ) and cranioplasty (02/26/18), not on AP or statins, reasons unclear, no records available from [facility] regarding as to why no AP are given after stroke, reached out to Neurosurgery to clarify and per Dr. Rendon's PA, patient can be started on ASA 81 mg PO once daily from 03/15/18 (10 days post op). Will check CT head without contrast on 03/14/18 prior to starting ASA on 03/15. -Spasticity (Left UE/LE)- ON Baclofen 15 mg PO TID. May benefit from Botox injections -Seizures- on Keppra 1000 mg PO BID and Vimpat 200 mg PO BID. Again no records about seizures received from [facility] -Anxiety/Depression- on Buspirone, Seroquel and Effexor -PEG tube feeding with Jevity. Diarrhea has improved per nursing staff. will defer further dietary modifications to ST and manager commercial sales -Vocal cord paralysis-management per ENT. -Goal BP < 130/80 mmHg -GI/DVT prophylaxis- Enoxaparin, SCDs and NITESH hose knee high. -Follow up with Neurosurgery Dr. Rendon (04/03/18), with ENT Dr. Dash Woodard at [place] (03/17/18), suture removal at [facility] (03/21/18). -Fall precautions -Seizure precautions -Further medical management per hospitalist recommendations.
[2018-03-12 13:39] VITALS: BMI 18.5
[2018-03-12] MEDS: Gabapentin 100 MG Capsule PO ×2 (14:43→17:18)
[2018-03-12 19:59] VITALS: BP 127/77; PULSE 67; RESP 18; TEMP 36.7; O2SAT 96; BMI 18.5
[2018-03-12] MEDS: QUEtiapine 25 MG Tablet 12.5 MG GT (21:35)
[2018-03-12] MEDS: MELATONIN 3 MG TABLET GT (21:36)
[2018-03-12 21:37] VITALS: BP 127/77; PULSE 67
[2018-03-12] MEDS: Menthol/Lanolin/Calamine/Znox 113 GM Tube 1 APPLIC TOPICAL (21:40)
[2018-03-13] MEDS: Baclofen 10 MG Tablet 15 MG GT ×3 (05:11→22:53)
[2018-03-13] MEDS: oxyCODONE 5 MG Tablet GT ×3 (05:13→17:13)
[2018-03-13] MEDS: Enoxaparin 40 MG/0.4 ML Syringe SC (05:14)
[2018-03-13] MEDS: Polyethylene Glycol 3350 17 GM PACKET GT (05:14)
[2018-03-13] MEDS: Menthol/Lanolin/Calamine/Znox 113 GM Tube 1 APPLIC TOPICAL ×2 (05:15→22:55)
[2018-03-13] MEDS: Jevity 1.5. 1,000 ML Bottle 300 ML GT ×2 (05:15→22:54)
[2018-03-13 09:11] VITALS: BP 111/68; PULSE 68; RESP 17; TEMP 36.6; O2SAT 95
[2018-03-13 10:36] VITALS: BP 111/68; PULSE 68
[2018-03-13] MEDS: Loratadine 10 MG Tablet GT (10:37)
[2018-03-13] MEDS: levETIRAcetam 1,000 MG Tablet 1000 MG PO ×2 (10:37→22:54)
[2018-03-13] MEDS: Lacosamide 100 MG Tablet 200 MG PO ×2 (10:37→22:51)
[2018-03-13] MEDS: busPIRone 5 MG Tablet 10 MG GT ×2 (10:37→22:55)
[2018-03-13] MEDS: Venlafaxine HCl 75 MG Tablet GT ×2 (10:37→22:55)
[2018-03-13] MEDS: Famotidine 20 MG Tablet 40 MG GT (10:38)
[2018-03-13] MEDS: Senna Tablet 2 TABLET GT ×2 (10:38→22:52)
[2018-03-13] MEDS: Gabapentin 100 MG Capsule PO ×3 (10:38→17:14)
[2018-03-13] MEDS: Hydrocortisone 2.5% Crm 1 APPLIC TOPICAL ×2 (10:39→22:56)
--- NOTE | 2018-03-13 11:04 | CASEMGMT ---
Team meeting held. Patient present as well as patient spouse and patient daughter. No discharge date set at this time. Patient to continue with further care and treatment on the Inpatient Rehab Unit with plan to re-team patient next week. Patient with insurance update due on 03/13/18 and is aware that continued stay approval is not guaranteed. Patient plans to discharge to home with spouse vs. other facility. Support given. Will continue to follow. Guillermina PANTOJA, QUALITY ASSURANCE COACH
[2018-03-13 11:34] VITALS: BMI 18.5
[2018-03-13] MEDS: Acetaminophen 650 MG/20 ML UDC GT ×2 (12:08→22:52)
--- NOTE | 2018-03-13 12:37 | PCM.PN.NEU ---
Subjective: No Issues overnight. Staffed in team meeting today, all questions were answered. With PT-for transfers needs maximum assist, walking with parallel bars 10-20 feet. OT grooming/Upper body minimal assist and LB grooming dependant and transfers with OT needs moderate assist. ST-repeat swallow evaluation 03/07 silent and overt aspiration. has left sided spasticity. - Physical Exam General: Alert HEENT: Normocephalic Neck: Supple Lungs: Clear to auscultation Cardiovascular: Normal S1, Normal S2 Abdomen: Bowel Sounds Present Extremities: No cyanosis Musculoskeletal: No Tenderness to Palpation of Joints or Extremities Neurological: - - consious, alert, AoAx3, CN-left 7th UMN facial palsy, power Right UE/LE 5/5, left UE/LE -0/5, spasticity both left UE/LE, plantars right flexor, left equivocal, denies any sensory loss, no cerebellar signs on the right, Reflexes +++ Left B/S/T/K/A, ++ Right B/S/T/K/A gait deferred Psych/Mental Status: Normal Affect Vital Signs Temp Pulse Resp BP Pulse Ox 97.9 F 68 17 111/68 95 03/13/18 09:11 03/13/18 10:36 03/13/18 09:11 03/13/18 10:36 03/13/18 09:11 Oxygen Delivery Method Room Air Weight: 61.6 kg Body Mass Index (BMI) 18.5 Intake and Output for Last 24 Hours 03/11/18 03/12/18 03/13/18 23:59 23:59 23:59 Intake Total 3170 / 3170 1720 / 1720 600 / 600 Output Total 550 / 550 470 / 470 Balance 2620 / 2620 1250 / 1250 600 / 600 Medical Necessity - Tobacco Use Smoking Status: Former smoker Assessment/Plan All Active Problems (This Medical Record has been edited. Action required.) Aortic dissection (Acute) Acute right MCA stroke (Acute) Left hemiplegia (Acute) Acute kidney injury (Acute) Seizure disorder (Acute) Dysphagia (Acute) Vocal cord paralysis (Acute) Dysphagia (Acute) 52 yr CM with recent admission [facility] 10[facility]17 with aortic dissection, post surgery course complicated by Right MCA stroke, s/p craniectomy on 10/10/17, vocal cord paralysis being managed by ENT, seizure d/o-on Keppra and Vimpat, had prolonged hospital course, discharged to [facility] for about 2 weeks, then had respiratory failure needing intubation on 01/17/18, was discharged to TCU on 02/07/18, had PEG placed on 02/13/18, was readmitted to [facility] on 02/26/18 for cranioplasty, now admitted to [facility] for debility post right MCA stroke with prolonged hospital course, for > 3 hrs therapy, with a goal of returning back home at or near his prior level of functional independence Plan -PT for gait stability -OT for ADLs -Analgesics as needed -Bowel protocol -Daily weights and I/O -Complained of chronic low back pain and neck pain-started on Gabapentin 100 mg PO TID for 5 days, then increase to 300 mg PO TID. -Aortic dissection-on metoprolol, no records available from [facility] -Right MCA stroke-complication after aortic dissection, s/p craniectomy (10/10/17) and cranioplasty (02/26/18), not on AP or statins, reasons unclear, no records available from [facility] regarding as to why no AP are given after stroke, reached out to Neurosurgery to clarify and per Dr. Rendon's PA, patient can be started on ASA 81 mg PO once daily from 03/15/18 (10 days post op). Will check CT head without contrast on 03/14/18 prior to starting ASA on 03/15. -Spasticity (Left UE/LE)- ON Baclofen 15 mg PO TID. May benefit from Botox injections -Seizures- on Keppra 1000 mg PO BID and Vimpat 200 mg PO BID. Again no records about seizures received from [facility] -Anxiety/Depression- on Buspirone, Seroquel and Effexor. Per family patient has been sleeping well and is requesting to discontinue Seroquel, is on 12.5 mg will discontinue the same. -PEG tube feeding per ST and database management system specialist recommendation. Diarrhea has improved per nursing staff. will defer further dietary modifications to ST and database management system specialist -Vocal cord paralysis-management per ENT. -Goal BP < 130/80 mmHg -GI/DVT prophylaxis- Enoxaparin, SCDs and NITESH hose knee high. -Follow up with Neurosurgery Dr. Rendon (04/03/18), with ENT Dr. Dash Woodard at [place] (03/17/18), suture removal at [facility] (03/21/18). -Fall precautions -Seizure precautions -Further medical management per hospitalist recommendations.
--- NOTE | 2018-03-13 12:43 | PN.NEURO_ITS ---
Subjective: No Issues overnight. Staffed in team meeting today, all questions were answered. With PT-for transfers needs maximum assist, walking with parallel bars 10-20 feet. OT grooming/Upper body minimal assist and LB grooming dependant and transfers with OT needs moderate assist. ST-repeat swallow evaluation 03/07 silent and overt aspiration. has left sided spasticity. - Physical Exam General: Alert HEENT: Normocephalic Neck: Supple Lungs: Clear to auscultation Cardiovascular: Normal S1, Normal S2 Abdomen: Bowel Sounds Present Extremities: No cyanosis Musculoskeletal: No Tenderness to Palpation of Joints or Extremities Neurological: - - consious, alert, AoAx3, CN-left 7th UMN facial palsy, power Right UE/LE 5/5, left UE/LE -0/5, spasticity both left UE/LE, plantars right flexor, left equivocal, denies any sensory loss, no cerebellar signs on the right, Reflexes +++ Left B/S/T/K/A, ++ Right B/S/T/K/A gait deferred Psych/Mental Status: Normal Affect Vital Signs Temp Pulse Resp BP Pulse Ox 97.9 F 68 17 111/68 95 03/13/18 09:11 03/13/18 10:36 03/13/18 09:11 03/13/18 10:36 03/13/18 09:11 Oxygen Delivery Method Room Air Weight: 61.6 kg Body Mass Index (BMI) 18.5 Intake and Output for Last 24 Hours 03/11/18 03/12/18 03/13/18 23:59 23:59 23:59 Intake Total 3170 / 3170 1720 / 1720 600 / 600 Output Total 550 / 550 470 / 470 Balance 2620 / 2620 1250 / 1250 600 / 600 Medical Necessity - Tobacco Use Smoking Status: Former smoker Assessment/Plan All Active Problems (This Medical Record has been edited. Action required.) Aortic dissection (Acute) Acute right MCA stroke (Acute) Left hemiplegia (Acute) Acute kidney injury (Acute) Seizure disorder (Acute) Dysphagia (Acute) Vocal cord paralysis (Acute) Dysphagia (Acute) 52 yr CM with recent admission to [facility] on 10/07/17 with aortic dissection, post surgery course complicated by Right MCA stroke, s/p craniectomy on 10/10/17, vocal cord paralysis being managed by ENT, seizure d/o-on Keppra and Vimpat, had prolonged hospital course, discharged to [facility] for about 2 weeks , then had respiratory failure needing intubation on 01/17/18, was discharged to TCU on 02/07/18, had PEG placed on 02/13/18, was readmitted to [facility] on 02/26/18 for cranioplasty, now admitted to [facility] for debility post right MCA stroke with prolonged hospital course, for > 3 hrs therapy, with a goal of returning back home at or near his prior level of functional independence Plan -PT for gait stability -OT for ADLs -Analgesics as needed -Bowel protocol -Daily weights and I/O -Complained of chronic low back pain and neck pain-started on Gabapentin 100 mg PO TID for 5 days, then increase to 300 mg PO TID. -Aortic dissection-on metoprolol, no records available from [facility] -Right MCA stroke-complication after aortic dissection, s/p craniectomy (10/10/17 ) and cranioplasty (02/26/18), not on AP or statins, reasons unclear, no records available from [facility] regarding as to why no AP are given after stroke, reached out to Neurosurgery to clarify and per Dr. Rendon's PA, patient can be started on ASA 81 mg PO once daily from 03/15/18 (10 days post op). Will check CT head without contrast on 03/14/18 prior to starting ASA on 03/15. -Spasticity (Left UE/LE)- ON Baclofen 15 mg PO TID. May benefit from Botox injections -Seizures- on Keppra 1000 mg PO BID and Vimpat 200 mg PO BID. Again no records about seizures received from [facility] -Anxiety/Depression- on Buspirone, Seroquel and Effexor. Per family patient has been sleeping well and is requesting to discontinue Seroquel, is on 12.5 mg will discontinue the same. -PEG tube feeding per ST and intercell connector placer recommendation. Diarrhea has improved per nursing staff. will defer further dietary modifications to ST and intercell connector placer -Vocal cord paralysis-management per ENT. -Goal BP < 130/80 mmHg -GI/DVT prophylaxis- Enoxaparin, SCDs and NITESH hose knee high. -Follow up with Neurosurgery Dr. Rendon (04/03/18), with ENT Dr. Dash Woodard at [place] (03/17/18), suture removal at [facility] (03/21/18). -Fall precautions -Seizure precautions -Further medical management per hospitalist recommendations.
--- NOTE | 2018-03-13 13:43 | CASEMGMT ---
Insurance Clinical information faxed. Pending continued stay approval at this time. Auth#[id number] Guillermina PANTOJA, HAND TRIMMER
--- NOTE | 2018-03-13 16:59 | CASEMGMT ---
Insurance Continued stay approved with next update due on 03/21/18. Auth#[id number] Guillermina PANTOJA, SALES SUPPORT ADVISOR
[2018-03-13 18:47] VITALS: BP 112/75; PULSE 75; RESP 17; TEMP 36.8; O2SAT 95
[2018-03-13] MEDS: Magnesium Hydroxide 30 ML UDC GT (19:59)
[2018-03-13 22:50] VITALS: BP 136/76; PULSE 71
[2018-03-13 22:53] VITALS: BP 136/76; PULSE 71
[2018-03-13] MEDS: MELATONIN 3 MG TABLET GT (22:53)
[2018-03-13] MEDS: Metoprolol Tartrate 25 MG Tablet GT (22:53)
[2018-03-14] MEDS: Bisacodyl 10 MG Suppository RECTAL (04:17)
[2018-03-14] MEDS: Jevity 1.5. 1,000 ML Bottle 300 ML GT (04:37)
[2018-03-14] MEDS: Menthol/Lanolin/Calamine/Znox 113 GM Tube 1 APPLIC TOPICAL (04:37)
[2018-03-14 04:57] VITALS: BMI 18.5
[2018-03-14] MEDS: Enoxaparin 40 MG/0.4 ML Syringe SC (07:04)
[2018-03-14] MEDS: Baclofen 10 MG Tablet 15 MG GT ×2 (07:04→13:36)
[2018-03-14] MEDS: Polyethylene Glycol 3350 17 GM PACKET GT (07:04)
[2018-03-14] MEDS: oxyCODONE 5 MG Tablet GT ×2 (07:05→16:27)
[2018-03-14 08:10] VITALS: BP 106/72; PULSE 64; RESP 16; TEMP 36.8; O2SAT 96
[2018-03-14] MEDS: Venlafaxine HCl 75 MG Tablet GT (08:33)
[2018-03-14] MEDS: levETIRAcetam 1,000 MG Tablet 1000 MG PO (08:33)
[2018-03-14] MEDS: Hydrocortisone 2.5% Crm 1 APPLIC TOPICAL (08:33)
[2018-03-14] MEDS: Famotidine 20 MG Tablet 40 MG GT (08:33)
[2018-03-14] MEDS: Gabapentin 100 MG Capsule PO ×3 (08:33→16:29)
[2018-03-14] MEDS: busPIRone 5 MG Tablet 10 MG GT (08:33)
[2018-03-14] MEDS: Loratadine 10 MG Tablet GT (08:34)
[2018-03-14] MEDS: Aspirin 81 MG TAB.CHEW PO (08:34)
[2018-03-14] MEDS: Lacosamide 100 MG Tablet 200 MG PO (08:40)
[2018-03-14 09:50] VITALS: BP 115/65
[2018-03-14 10:51] VITALS: BMI 18.5
--- NOTE | 2018-03-14 11:34 | PCM.PN.HOSP ---
Subjective: Patient seen participating in physical therapy Objective: GENERAL: cooperative HEENT: Craniotomy scar on scalp NECK; supple, normal thyroid, CHEST: Clear to auscultation bilaterally, HEART: Regular S1 S2, no audible murmurs ABDOMEN: soft, non-tender, normoactive bowel sounds, RECTAL: deferred EXTREMITIES: No edema, no clubbing, no cyanosis. CLINICAL EDUCATOR: Awake; left upper extremity contractures paresis SKIN: No Rash Vitals/I&O's: Vital Signs Temp Pulse Resp BP Pulse Ox 98.2 F 64 16 115/65 96 03/14/18 08:10 03/14/18 08:10 03/14/18 08:10 03/14/18 09:50 03/14/18 08:10 Oxygen Delivery Method Room Air Weight: 61.6 kg Body Mass Index (BMI) 18.5 Intake and Output for Last 24 Hours 03/12/18 03/13/18 03/14/18 23:59 23:59 23:59 Intake Total 1720 / 1720 1300 / 1300 660 / 660 Output Total 470 / 470 150 / 150 Balance 1250 / 1250 1150 / 1150 660 / 660 Current Medications Acetaminophen (Tylenol Liquid) 650 mg GT Q6H PRN PRN PRN Reason: Mild Pain (0-3/10)/Headache Last Admin: 03/13/18 22:52 Dose: 650 mg Albuterol/Ipratropium (Duoneb) 3 ml INHALATION Q4H.RT PRN PRN Reason: SOB &/OR WHEEZING Aspirin (Aspirin, Baby) 81 mg PO DAILY@0800 [facility] Last Admin: 03/14/18 08:34 Dose: 81 mg Baclofen (Lioresal) 15 mg GT TID [facility] Last Admin: 03/14/18 07:04 Dose: 15 mg Bisacodyl (Dulcolax) 10 mg RECTAL .PRN X 1 PRN PRN Reason: Constipation Last Admin: 03/14/18 04:17 Dose: 10 mg Buspirone HCl (Buspar) 10 mg GT BID [facility] Last Admin: 03/14/18 08:33 Dose: 10 mg Calamine/Phenol (Calmoseptine Ointment) 1 applic TOPICAL 0600,2200 [facility] PRN Reason: Protocol Last Admin: 03/14/18 04:37 Dose: 1 applicatio Enoxaparin Sodium (Lovenox) 40 mg SC DAILY@0600 [facility] Last Admin: 03/14/18 07:04 Dose: 40 mg Enteral Nutritional Formula (Jevity 1.5) 300 ml GT 0800,1200,1700 [facility] Last Admin: 03/14/18 08:12 Dose: Not Given Enteral Nutritional Formula (Jevity 1.5) 300 ml GT 2200,0500 [facility] Last Admin: 03/14/18 04:37 Dose: 300 mls Famotidine (Pepcid) 40 mg GT DAILY [facility] Last Admin: 03/14/18 08:33 Dose: 40 mg Gabapentin (Neurontin) 100 mg PO TIDCM [facility] Stop: 03/17/18 12:01 Last Admin: 03/14/18 08:33 Dose: 100 mg Gabapentin (Neurontin) 300 mg PO TIDCM [facility] Hydrocortisone (Hytone) 1 applic TOPICAL BID [facility] PRN Reason: Protocol Last Admin: 03/14/18 08:33 Dose: 1 applicatio Lacosamide (Vimpat) 200 mg PO BID [facility] Last Admin: 03/14/18 08:40 Dose: 200 mg Levetiracetam (Keppra Tablet) 1,000 mg PO BID [facility] Last Admin: 03/14/18 08:33 Dose: 1,000 mg Loratadine (Claritin) 10 mg GT DAILY [facility] Last Admin: 03/14/18 08:34 Dose: 10 mg Magnesium Hydroxide (Milk Of Magnesia) 30 ml GT .PRN X 1 PRN PRN Reason: Constipation Last Admin: 03/13/18 19:59 Dose: 30 ml Melatonin (Melatonin) 3 mg GT QHS [facility] Last Admin: 03/13/18 22:53 Dose: 3 mg Methocarbamol (Methocarbamol) 750 mg PO TID PRN PRN Reason: MUSCLE SPASM Last Admin: 03/10/18 08:50 Dose: 750 mg Metoprolol Tartrate (Lopressor (Beta Jose Juan)) 25 mg GT BID [facility] Last Admin: 03/14/18 09:51 Dose: Not Given Oxycodone HCl (Oxyir) 5 mg GT Q4H PRN PRN PRN Reason: SEVERE PAIN (6-10/10) Last Admin: 03/14/18 07:05 Dose: 5 mg Polyethylene Glycol (Miralax) 17 gm GT DAILY@0600 [facility] Last Admin: 03/14/18 07:04 Dose: 17 gm Senna (Senokot) 2 tablet GT BID [facility] Last Admin: 03/14/18 08:17 Dose: Not Given Venlafaxine HCl (Effexor) 75 mg GT BID [facility] Last Admin: 03/14/18 08:33 Dose: 75 mg Medical Necessity - Tobacco Use Smoking Status: Former smoker Assessment/Plan All Active Problems (This Medical Record has been edited. Action required.) Aortic dissection (Acute) Acute right MCA stroke (Acute) Left hemiplegia (Acute) Acute kidney injury (Acute) Seizure disorder (Acute) Dysphagia (Acute) Vocal cord paralysis (Acute) Dysphagia (Acute) Patient is a 52-year-old male with recent complicated past medical history including aortic section for which patient underwent surgery at [facility] which was complicated by a right MCA stroke in September 2017. Patient had a prolonged stay at a long-term acute care he apparently went into respiratory failure resulting in patient being intubated he was stabilized and transferred to the transitional care unit where he had a PEG placed on 02/13/2018. He was admitted to [facility] on 02/26/2018 for cranioplasty and subsequently transferred to the inpatient rehab unit Right MCA stroke with residual left-sided hemiparesis: Patient has been admitted to the inpatient rehab unit where he is currently undergoing PT and OT 2. Aortic dissection status post surgery 3. Seizure disorder patient is on Keppra 4. DVT prophylaxis patient is a low molecular weight heparin Active Medications Acetaminophen (Tylenol Liquid) 650 mg GT Q6H PRN PRN PRN Reason: Mild Pain (0-3/10)/Headache Last Admin: 03/10/18 08:50 Dose: 650 mg Albuterol/Ipratropium (Duoneb) 3 ml INHALATION Q4H.RT PRN PRN Reason: SOB &/OR WHEEZING Baclofen (Lioresal) 15 mg GT TID [facility] Last Admin: 03/10/18 13:05 Dose: 15 mg Bisacodyl (Dulcolax) 10 mg RECTAL .PRN X 1 PRN PRN Reason: Constipation Buspirone HCl (Buspar) 10 mg GT BID [facility] Last Admin: 03/10/18 08:50 Dose: 10 mg Calamine/Phenol (Calmoseptine Ointment) 1 applic TOPICAL 0600,2200 [facility] PRN Reason: Protocol Last Admin: 03/10/18 05:31 Dose: 1 applicatio Enoxaparin Sodium (Lovenox) 40 mg SC DAILY@0600 [facility] Last Admin: 03/10/18 05:30 Dose: 40 mg Enteral Nutritional Formula (Jevity 1.5) 360 ml GT 4X/DAY [facility] Last Admin: 03/10/18 09:01 Dose: 360 ml Famotidine (Pepcid) 40 mg GT DAILY [facility] Last Admin: 03/10/18 08:49 Dose: 40 mg Hydrocortisone (Hytone) 1 applic TOPICAL BID [facility] PRN Reason: Protocol Last Admin: 03/10/18 13:11 Dose: 1 applicatio Lacosamide (Vimpat) 200 mg PO BID [facility] Last Admin: 03/10/18 08:50 Dose: 200 mg Levetiracetam (Keppra Tablet) 1,000 mg PO BID [facility] Last Admin: 03/10/18 08:50 Dose: 1,000 mg Loratadine (Claritin) 10 mg GT DAILY [facility] Last Admin: 03/10/18 09:00 Dose: 10 mg Magnesium Hydroxide (Milk Of Magnesia) 30 ml GT .PRN X 1 PRN PRN Reason: Constipation Melatonin (Melatonin) 3 mg GT QHS [facility] Last Admin: 03/09/18 21:19 Dose: 3 mg Methocarbamol (Methocarbamol) 750 mg PO TID PRN PRN Reason: MUSCLE SPASM Last Admin: 03/10/18 08:50 Dose: 750 mg Metoprolol Tartrate (Lopressor (Beta Jose Juan)) 25 mg GT BID [facility] Last Admin: 03/10/18 09:01 Dose: Not Given Oxycodone HCl (Oxyir) 5 mg GT Q6H PRN PRN PRN Reason: SEVERE PAIN (6-10/10) Last Admin: 03/10/18 12:54 Dose: 5 mg Polyethylene Glycol (Miralax) 17 gm GT DAILY@0600 [facility] Last Admin: 03/10/18 05:37 Dose: Not Given Quetiapine Fumarate (Seroquel) 12.5 mg GT QHS [facility] Last Admin: 03/09/18 21:18 Dose: 12.5 mg Senna (Senokot) 2 tablet GT BID [facility] Last Admin: 03/10/18 10:28 Dose: Not Given Venlafaxine HCl (Effexor) 75 mg GT BID [facility] Last Admin: 03/10/18 08:50 Dose: 75 mg Code Visit Inpatient E&M: 76903 Subs Hosp L2
--- NOTE | 2018-03-14 12:02 | PN.NEURO_ITS ---
Subjective: No issues overnight. Patient care discussed with nursing staff. - Physical Exam General: Alert HEENT: Normocephalic Neck: Supple Lungs: Clear to auscultation Cardiovascular: Normal S1, Normal S2 Abdomen: Bowel Sounds Present Extremities: No cyanosis Musculoskeletal: No Tenderness to Palpation of Joints or Extremities Neurological: - - consious, alert, AoAx3, CN-left 7th UMN facial palsy, power Right UE/LE 5/5, left UE/LE -0/5, spasticity both left UE/LE, plantars right flexor, left equivocal, denies any sensory loss, no cerebellar signs on the right, Reflexes +++ Left B/S/T/K/A, ++ Right B/S/T/K/A gait deferred Psych/Mental Status: Normal Affect Vital Signs Temp Pulse Resp BP Pulse Ox 98.2 F 64 16 115/65 96 03/14/18 08:10 03/14/18 08:10 03/14/18 08:10 03/14/18 09:50 03/14/18 08:10 Oxygen Delivery Method Room Air Weight: 61.6 kg Body Mass Index (BMI) 18.5 Intake and Output for Last 24 Hours 03/12/18 03/13/18 03/14/18 23:59 23:59 23:59 Intake Total 1720 / 1720 1300 / 1300 920 / 920 Output Total 470 / 470 150 / 150 150 / 150 Balance 1250 / 1250 1150 / 1150 770 / 770 Medical Necessity - Tobacco Use Smoking Status: Former smoker Assessment/Plan All Active Problems (This Medical Record has been edited. Action required.) Aortic dissection (Acute) Acute right MCA stroke (Acute) Left hemiplegia (Acute) Acute kidney injury (Acute) Seizure disorder (Acute) Dysphagia (Acute) Vocal cord paralysis (Acute) Dysphagia (Acute) 52 yr CM with recent admission to [facility] on 10/07/17 with aortic dissection, post surgery course complicated by Right MCA stroke, s/p craniectomy on 10/10/17, vocal cord paralysis being managed by ENT, seizure d/o-on Keppra and Vimpat, had prolonged hospital course, discharged to [facility] for about 2 weeks , then had respiratory failure needing intubation on 01/17/18, was discharged to TCU on 02/07/18, had PEG placed on 02/13/18, was readmitted to [facility] on 02/26/18 for cranioplasty, now admitted to [facility] IP for debility post right MCA stroke with prolonged hospital course, for > 3 hrs therapy, with a goal of returning back home at or near his prior level of functional independence Plan -PT for gait stability -OT for ADLs -Analgesics as needed -Bowel protocol -Daily weights and I/O -Complained of chronic low back pain and neck pain-started on Gabapentin 100 mg PO TID for 5 days, then increase to 300 mg PO TID. -Aortic dissection-on metoprolol, no records available from [facility] -Right MCA stroke-complication after aortic dissection, s/p craniectomy (10/10/17 ) and cranioplasty (02/26/18), not on AP or statins, reasons unclear, no records available from [facility] regarding as to why no AP are given after stroke, reached out to Neurosurgery to clarify and per Dr. Rendon's PA, patient can be started on ASA 81 mg PO once daily from 03/15/18 (10 days post op). Will check CT head without contrast on 03/14/18 prior to starting ASA on 03/15. -Spasticity (Left UE/LE)- ON Baclofen 15 mg PO TID. May benefit from Botox injections -Seizures- on Keppra 1000 mg PO BID and Vimpat 200 mg PO BID. Again no records about seizures received from [facility] -Anxiety/Depression- on Buspirone, Seroquel and Effexor. Per family patient has been sleeping well and is requesting to discontinue Seroquel, is on 12.5 mg will discontinue the same. -PEG tube feeding per ST and storage receipt poster recommendation. Diarrhea has improved per nursing staff. will defer further dietary modifications to ST and storage receipt poster -Vocal cord paralysis-management per ENT. -Goal BP < 130/80 mmHg -GI/DVT prophylaxis- Enoxaparin, SCDs and NITESH hose knee high. -Follow up with Neurosurgery Dr. Rendon (04/03/18), with ENT Dr. Dash Woodard at [place] (03/17/18), suture removal at [facility] (03/21/18). -Fall precautions -Seizure precautions -Further medical management per hospitalist recommendations.
--- NOTE | 2018-03-14 17:04 | NURSING ---
Addendum entered by Radha Lopez 03/14/18 17:31: pupils reactive to light and left pupil larger than right, denies n/v, headache, no change in vision continues to have some blurred and limited vision to left eye not knew. Original Note: noted a raised fluctuance area to right sided frontal area of scalp. slight tender to touch per patient. 5cm x 5cm x 1cm. dr richards aware of the ct scan results. Dr. dumont spoke dr lovelace to see patient and to speak to neurosurgeon at [facility] for transfer.
[2018-03-14 17:30] VITALS: BP 127/77; PULSE 66; RESP 16; O2SAT 95
--- NOTE | 2018-03-14 17:37 | NURSING ---
dr lovelace here to see patient.
--- NOTE | 2018-03-14 17:40 | NURSING ---
left msg for marcellus to return call to unit.
--- NOTE | 2018-03-14 18:25 | NURSING ---
spoke with marcellus and aware of transfer to [facility]. demographic paper faxed per request from [facility].
--- NOTE | 2018-03-14 18:26 | PCM.DC.SUM ---
Discharge Date and Diagnosis Date of Admission: 03/06/18 Date of Discharge: 03/14/18 - Primary Discharge Diagnosis Right MCA stroke status post craniectomy and then recent cranioplasty with residual left-sided hemiparesis with new leftward midline shift of 13 mm and large subdural pneumocephalus with one third filled with fluid - Secondary Discharge Diagnosis Chronic Problems (This Medical Record has been edited. Action required.) Kidney stones (Chronic) Hypertension (Chronic) Asthma (Chronic) Depression (Chronic) Hospital Course and Treatment Summary of Care Provided: The patient is a 52 year old male with recent complicated past medical history including aortic dissection for which patient underwent surgery at [facility] which was complicated by a right MCA stroke in September 2017 status post decompressive craniectomy in September 2017 followed by vocal cord paralysis managed by ENT and subsequently had pneumonia and respiratory failure resulting into intubation in December 2017 and was discharged to TCU on 02/07/2018. Patient had PEG tube placement on 02/13/2018 and then was readmitted to [facility] on 03/17/2013 for cranioplasty and subsequently transferred to the inpatient rehab unit. Here, patient was supposed to start aspirin tomorrow a.m. and prior to that he required CT head to rule out bleed. CT head was done today and shows large right-sided subdural fluid and gas collection measuring 9.4 cm craniocaudal, 11.7 cm AP, 4.7 cm greatest depth of lenticular shaped collection. About one third filled with fluid. No acute blood. There is also subgaleal gas overlying the right craniectomy likely complicating with subdural pneumocephalus. There is midline shift of 13 mm leftward at the level of septum pellucidum. No evidence of osman herniation left cerebral hemisphere exhibits no acute process. In view of this new CT finding of midline shift and large right-sided subdural pneumocephalus, neurologist Dr. Downing advised transfer to [facility]. Seen and examined. Patient has postoperative chronic left inferior lateral quadrantanopsia. Left pupil is slightly dilated which is again chronic finding. PERRLA present. Right-sided chronic hemiplegia with contracture and spasticity Postoperative sutures of right cranioplasty Lungs: Air entry diminished bilateral bases. No crepitation or rhonchi. Heart S1-S2 regular, no murmur gallop rub. Overall, assessment and plan: 1.Right MCA stroke status post craniectomy and then recent cranioplasty with residual left-sided hemiparesis with new leftward midline shift of 13 mm and large subdural pneumocephalus with one third filled with fluid: Patient was admitted to the inpatient rehab unit where he is currently undergoing PT and OT. 2. Aortic dissection status post surgery. On metoprolol 3. Seizure disorder patient is on Keppra 4. DVT prophylaxis patient is a low molecular weight heparin I discussed the overall hospital course and clinical findings and CT findings with Dr. Collazo, the neurosurgeon in [facility] and he accepted the patient. Patient is in the process of being transferred when bed is available. Home Medications: Medications to take at Discharge Budesonide/Formoterol 80-4.5 [Symbicort 80-4.5 Mcg Inhaler] 2 puff INHALATION BID 10/07/17 Acetylcysteine [Mucomyst] 400 mg INHALATION Q6H.RT PRN vial.neb. 02/26/18 Ipratropium/Albuterol Sulfate [Duoneb] 3 ml INHALATION Q4H.RT PRN ampul.neb 02/26/18 Ampicillin Trihydrate 500 mg PO 4X/DAY 03/06/18 Baclofen [Lioresal] 10 mg PO TID 03/06/18 Hydrocortisone 2.5% Crm [Hytone] 1 applic TOPICAL BID 03/06/18 Levetiracetam [Keppra] 1,000 mg PO BID 03/06/18 Loratadine [Claritin] 10 mg PO DAILY 03/06/18 Melatonin 3 mg PO QHS 03/06/18 Menthol/Lanolin/Calamine/Znox [Calmoseptine Ointment] 1 applic TOPICAL 0600,2200 03/06/18 Methocarbamol [Robaxin-750] 750 mg PO TID PRN 03/06/18 Metoprolol Tartrate [Lopressor (beta john)] 25 mg PO BID 03/06/18 Oxycodone [Oxyir] 5 mg PO Q6H PRN PRN 03/06/18 Pantoprazole Sodium [Protonix] 40 mg PO DAILY 03/06/18 Polyethylene Glycol 3350 [Miralax] 17 gm PO DAILY PRN 03/06/18 Quetiapine Fumarate [Seroquel] 12.5 mg PO QHS 03/06/18 Senna [Senokot] 1 tablet PO BID PRN 03/06/18 Venlafaxine HCl [Effexor] 75 mg PO BID 03/06/18 busPIRone [Buspar] 10 mg PO BID 03/06/18 Primary Care Physician: Fredy Beth MD [Primary Care Provider] - Medical Necessity - Tobacco Use Smoking Status: Former smoker Meaningful Use Info Meaningful Use Diagnoses (Choose all that apply): None applicable Code Visit Inpatient E&M: 75919 Disch Hosp
--- NOTE | 2018-03-14 18:34 | NURSING ---
dr dumont updated on acceptance for transfer to [facility]. awaiting a bed. CD rom of ct scan from today in packet for [facility].
--- NOTE | 2018-03-14 18:45 | NURSING ---
patient is assigned H62-bed 3 neuro step down unit. [facility] ambulance will transport patient to [facility].
--- NOTE | 2018-03-14 19:27 | NURSING ---
in room with pt. Radha SAWANT calling report to [facility]. Remains stable, alert and oriented x3
[2018-03-14 19:33] VITALS: BP 130/76; PULSE 80; RESP 18; TEMP 36.9; O2SAT 94
--- NOTE | 2018-03-14 19:39 | NURSING ---
erasmo Durham at [facility] called and given report. dr dumont aware of transport and bed assignment at [facility].
--- NOTE | 2018-03-14 20:06 | NURSING ---
patient discharged to [facility] transported by cot by [facility] ambulance. here.
--- NOTE | 2018-03-17 15:40 | CASEMGMT ---
Insurance Notified insurance of resident discharge on 03/14/18 to acute hospital setting. Auth#[id number] Guillermina PANTOJA, [employer]
== END 2018-03-14 20:08 | disposition short-term general hospital (02) | DRG 57 ==
PROVIDERS: Admitting Provider Psychiatry & Neurology Neurology; Family Provider Family Medicine; PCP Family Medicine; Visit Provider Internal Medicine
DX: I69.354 Hemiplegia and hemiparesis following cerebral infarction affecting left non-dominant side (principal); I10 Essential (primary) hypertension; J45.909 Unspecified asthma, uncomplicated; F32.9 Major depressive disorder, single episode, unspecified; Z87.891 Personal history of nicotine dependence; F41.9 Anxiety disorder, unspecified; G40.909 Epilepsy, unspecified, not intractable, without status epilepticus; Z93.1 Gastrostomy status; R13.12 Dysphagia, oropharyngeal phase
CPT/HCPCS: 36415; 70450; 74230; 80048; 85027; 92507; 92523; 92526; 92611; 97110; 97112; 97116; 97140; 97162; 97166; 97530; 97535; 97802; 97803

== ENCOUNTER 2018-03-17 17:32 | Inpatient (IN) | payer OTHER, SELFPAY ==
[2018-03-17 17:43] VITALS: BMI 18.3
[2018-03-17 20:48] VITALS: BP 128/77; PULSE 68; RESP 18; TEMP 36.8; O2SAT 96
[2018-03-17 21:00] VITALS: O2SAT 96
[2018-03-17 21:16] VITALS: BMI 18.4
[2018-03-17 21:45] VITALS: BMI 18.3
[2018-03-17 22:00] VITALS: BP 138/76; PULSE 79; RESP 18; TEMP 36.8; O2SAT 95
[2018-03-17] MEDS: busPIRone 5 MG Tablet 10 MG PO (22:20)
[2018-03-17] MEDS: Venlafaxine HCl 75 MG Tablet PO (22:20)
[2018-03-17] MEDS: Menthol/Lanolin/Calamine/Znox 113 GM Tube 1 APPLIC TOPICAL (22:20)
[2018-03-17] MEDS: Hydrocortisone 2.5% Crm 1 APPLIC TOPICAL (22:21)
[2018-03-17] MEDS: Lacosamide 100 MG Tablet 200 MG PO (22:23)
[2018-03-17] MEDS: Jevity 1.5. 1,000 ML Bottle 300 ML GT (22:23)
[2018-03-17] MEDS: levETIRAcetam 1,000 MG Tablet 1000 MG PO (22:23)
[2018-03-17] MEDS: QUEtiapine 25 MG Tablet 12.5 MG PO (22:23)
[2018-03-17 22:24] VITALS: PULSE 78
[2018-03-17] MEDS: Senna/Docusate Sodium 1 Tablet 2 TABLET PO (22:24)
[2018-03-17] MEDS: Metoprolol Tartrate 25 MG Tablet PO (22:24)
[2018-03-17] MEDS: MELATONIN 3 MG TABLET PO (22:24)
[2018-03-17] MEDS: Baclofen 10 MG Tablet PO (22:25)
[2018-03-17] MEDS: oxyCODONE 5 MG Tablet PO (22:39)
[2018-03-18] MEDS: Enoxaparin 40 MG/0.4 ML Syringe SC (06:06)
[2018-03-18] MEDS: Baclofen 10 MG Tablet PO ×3 (06:06→20:36)
[2018-03-18] MEDS: Menthol/Lanolin/Calamine/Znox 113 GM Tube 1 APPLIC TOPICAL ×2 (06:08→20:38)
[2018-03-18] MEDS: Jevity 1.5. 1,000 ML Bottle 300 ML GT ×2 (06:08→08:46)
[2018-03-18] MEDS: oxyCODONE 5 MG Tablet PO ×2 (06:23→20:40)
[2018-03-18 06:41] LABS: Hematocrit 39.9 % (40-54); Mean Corp Hgb Conc 32.6 g/gl (32-36); Mean Corpuscular Hgb 33.1 pg (27.0-32.0); Mean Corpuscular Volume 101.5 fL (80-94); Mean Platelet Vol. 8.8 fl (6.2-12.0); Platelet Count 243 K/mm3 (150-450); RBC Distribution Width CV 13.9 % (11.6-14.6); RBC Distribution Width SD 52.4 fl (35.1-43.9); Red Blood Count 3.93 M/mm3 (4.6-6.2); White Blood Count 6.3 K/mm3 (4.4-11.0)
[2018-03-18 06:47] LABS: Scan Indicated on CBC? Y/N NO
[2018-03-18 06:51] LABS: Anion Gap 5 (5-15); BUN 16 mg/dL (7-18); BUN/Creat Ratio 29.9 RATIO (10-20); Calcium,Total 8.7 mg/dL (8.5-10.1); Chloride 106 mmol/L (98-107); Creatinine, Serum 0.54 mg/dL (0.70-1.30); EST Glomerular Filtration Rate 171 mL/min (>60); Est Glom Filt Rate - Afr Amer 206 mL/min (>60); Estimated Creatinine Clearance 137.84 ml/min; Glucose 113 mg/dL (74-106); Potassium 4.3 mmol/L (3.5-5.1); Sodium Level 140 mmol/L (136-145)
[2018-03-18 07:04] VITALS: O2SAT 95
[2018-03-18] MEDS: Loratadine 10 MG Tablet PO (08:40)
[2018-03-18] MEDS: Pantoprazole Sodium 40 MG Tablet PO (08:40)
[2018-03-18] MEDS: Lacosamide 100 MG Tablet 200 MG PO ×2 (08:40→20:34)
[2018-03-18] MEDS: Aspirin 81 MG TAB.CHEW PO (08:40)
[2018-03-18] MEDS: Senna/Docusate Sodium 1 Tablet 2 TABLET PO ×2 (08:40→20:35)
[2018-03-18] MEDS: levETIRAcetam 1,000 MG Tablet 1000 MG PO ×2 (08:40→20:36)
[2018-03-18] MEDS: busPIRone 5 MG Tablet 10 MG PO ×2 (08:40→20:38)
[2018-03-18 08:41] VITALS: PULSE 78
[2018-03-18] MEDS: Venlafaxine HCl 75 MG Tablet PO ×2 (08:41→20:38)
[2018-03-18] MEDS: Metoprolol Tartrate 25 MG Tablet PO ×2 (08:41→20:35)
[2018-03-18] MEDS: Acetaminophen 325 MG Tablet 650 MG PO (08:53)
[2018-03-18 10:00] VITALS: BP 126/68; PULSE 78; RESP 17; TEMP 36.8; O2SAT 95
--- NOTE | 2018-03-18 11:55 | HP.PCM_ITS ---
History of Present Illness Date of Admission: 03/17/18 Chief Complaint: Debility The patient is a 52 year old M who is readmitted to the rehab unit. See discharge summary from 03/14/18 below. The patient was sent to the [facility] because of a subdural hematoma consequent to a complex hospitalization as described below, he was treated conservatively and observed. He now presents back to the rehab unit for further rehabilitation so that he can return home. He denies any pain at this point. He would like to advance his diet as feasible. Denies any GI or complaints. Per discharge summary 03/14/18: The patient is a 52 year old male with recent complicated past medical history including aortic dissection for which patient underwent surgery at [facility] which was complicated by a right MCA stroke in September 2017 status post decompressive craniectomy in September 2017 followed by vocal cord paralysis managed by ENT and subsequently had pneumonia and respiratory failure resulting into intubation in December 2017 and was discharged to TCU on 02/07/2018. Patient had PEG tube placement on 2017 and then was readmitted to [facility] on 03/17/2013 for cranioplasty and subsequently transferred to the inpatient rehab unit. Here, patient was supposed to start aspirin tomorrow a.m. and prior to that he required CT head to rule out bleed. CT head was done today and shows large right-sided subdural fluid and gas collection measuring 9.4 cm craniocaudal, 11.7 cm AP, 4.7 cm greatest depth of lenticular shaped collection. About one third filled with fluid. No acute blood. There is also subgaleal gas overlying the right craniectomy likely complicating with subdural pneumocephalus. There is midline shift of 13 mm leftward at the level of septum pellucidum. No evidence of osman herniation left cerebral hemisphere exhibits no acute process. In view of this new CT finding of midline shift and large right-sided subdural pneumocephalus, neurologist Dr. Downing advised [facility]. Past Medical History Past Medical History (Chronic Problems): Chronic Problems (This Medical Record has been edited. Action required.) Kidney stones (Chronic) Hypertension (Chronic) Asthma (Chronic) Depression (Chronic) Allergies cat dander Allergy (Verified 02/07/18 17:19) Unknown grass pollen Allergy (Verified 02/07/18 17:19) Itching Home Medications: Ambulatory Orders Medication Instructions Recorded Budesonide/Formoterol 80-4.5 2 puff INHALATION BID 10/07/17 [Symbicort 80-4.5 Mcg Inhaler] Acetylcysteine [Mucomyst] 400 mg INHALATION Q6H.RT PRN 02/26/18 vial.neb. Ipratropium/Albuterol Sulfate 3 ml INHALATION Q4H.RT PRN 02/26/18 [Duoneb] ampul.neb Baclofen [Lioresal] 10 mg PO TID 03/06/18 Hydrocortisone 2.5% Crm [Hytone] 1 applic TOPICAL BID 03/06/18 Levetiracetam [Keppra] 1,000 mg PO BID 03/06/18 Loratadine [Claritin] 10 mg PO DAILY 03/06/18 Melatonin 3 mg PO QHS 03/06/18 Menthol/Lanolin/Calamine/Znox 1 applic TOPICAL 0600,2200 03/06/18 [Calmoseptine Ointment] Methocarbamol [Robaxin-750] 750 mg PO TID PRN 03/06/18 Metoprolol Tartrate [Lopressor 25 mg PO BID 03/06/18 (beta jose juan)] Oxycodone [Oxyir] 5 mg PO Q6H PRN PRN 03/06/18 Pantoprazole Sodium [Protonix] 40 mg PO DAILY 03/06/18 Polyethylene Glycol 3350 [Miralax] 17 gm PO DAILY PRN 03/06/18 Quetiapine Fumarate [Seroquel] 12.5 mg PO QHS 03/06/18 Venlafaxine HCl [Effexor] 75 mg PO BID 03/06/18 busPIRone [Buspar] 10 mg PO BID 03/06/18 Surgical History: herniorrhaphy - Inguinal., - - Aortic dissection repair 2017, Craniotomy 10/13/2017, Lithotripsy, Left ankle ORIF, Left wrist ORIF, Bilateral heel spur removal, Traceostomy. Psychiatric History: Anxiety, Depression Smoking Status: Former smoker Tobacco Use: Non-smoker Alcohol: None Drugs: None - *Family History Maternal History Items: No pertinent history Paternal History Items: No pertinent history Review of Systems Constitutional: Denies: Chills, Fever, Weight Change HEENT: Denies: Head Aches, Sinus Congestion, Sinus Drainage Cardiovascular: Denies: Chest Pain, Palpitations Respiratory: Denies: Cough, Shortness of breath at rest, Sputum production Gastrointestinal: Denies: Abdominal Pain, Nausea, Vomiting Genitourinary: Denies: Dysuria Musculoskeletal: Denies: Joint Pain, Joint Tenderness Skin: Denies: Rash, Wounds Neurological: Denies: Numbness, Tingling, Focal weakness Psychiatric: Denies: Anxiety, Depression, Homicidal Ideations, Suicidal Ideations Hematologic/ Lymphatic: Denies: Easy Bruising, Easy Bleeding VTE Information - Inpt Only VTE Present on Admission: Yes VTE Pharm Prophylaxis ordered?: Yes Subjective: Examination is stable. He is awake and alert, oriented ?3. Follows all commands. He has a very hoarse voice. There is a left central 7 and left hemiparesis which is stable. Tube is in place. No calf pain. - Physical Exam General: Alert, Oriented x3, Cooperative, No apparent distress Psych/Mental Status: Normal Affect Vital Signs Temp Pulse Resp BP Pulse Ox 36.8 C 78 17 126/68 H 95 03/18/18 10:00 03/18/18 10:00 03/18/18 10:00 03/18/18 10:00 03/18/18 10:00 Oxygen Delivery Method Room Air Weight: 61.6 kg Body Mass Index (BMI) 18.3 Intake and Output for Last 24 Hours 03/16/18 03/17/18 03/18/18 23:59 23:59 23:59 Intake Total 1040 / 1040 520 / 520 Output Total 550 / 550 1000 / 1000 Balance 490 / 490 -480 / -480 Laboratory Tests Past 24 Hrs 03/18/18 03/18/18 06:30 06:30 WBC 6.3 RBC 3.93 L Hgb 13.0 Hct 39.9 L MCV 101.5 H MCH 33.1 H MCHC 32.6 RDW 13.9 RDW Differential 52.4 H Plt Count 243 MPV 8.8 Sodium 140 Potassium 4.3 Chloride 106 Carbon Dioxide 29.0 Anion Gap 5 BUN 16 Creatinine 0.54 L Estim Creat Clear Calc 137.84 Est GFR (MDRD) Af Amer 206 Est GFR (MDRD) Non-Af 171 BUN/Creatinine Ratio 29.9 H Glucose 113 H Calcium 8.7 Current Medications Acetaminophen 650 mg 08/20/18 18:22 03/18/18 08:53 Tylenol PO 650 mg Q6H PRN PRN Administration Mild Pain (0-3/10)/Headache Acetylcysteine 400 mg 03/17/18 18:17 Mucomyst INHALATION Q6H.RT PRN sob/wheezing Albuterol/Ipratropium 3 ml 03/17/18 18:17 Duoneb INHALATION Q4H.RT PRN SOB &/OR WHEEZING Aspirin 81 mg 03/18/18 08:00 03/18/18 08:40 Aspirin, Baby PO 81 mg DAILY@0800 ENIO Administration Baclofen 10 mg 03/17/18 22:00 03/18/18 06:06 Lioresal PO 10 mg TID ENIO Administration Bisacodyl 10 mg 03/17/18 18:22 Dulcolax RECTAL .PRN X 1 PRN Constipation Buspirone HCl 10 mg 03/17/18 22:00 03/18/18 08:40 Buspar PO 10 mg BID [facility] Administration Calamine/Phenol 1 applic 03/17/18 22:00 03/18/18 06:08 Calmoseptine Ointment TOPICAL 1 applicatio 0600,2200 [facility] Administration Protocol Enoxaparin Sodium 40 mg 03/18/18 06:00 03/18/18 06:06 Lovenox SC 40 mg DAILY@0600 ENIO Administration Enteral Nutritional Formula 300 ml 03/17/18 22:00 03/18/18 06:08 Jevity 1.5 GT 300 ml 2200,0500 ENIO Administration Enteral Nutritional Formula 300 ml 03/18/18 08:00 03/18/18 08:46 Jevity 1.5 GT 300 ml 0800,1200,1700 ENIO Administration Hydrocortisone 1 applic 03/17/18 22:00 03/18/18 11:05 Hytone TOPICAL Not Given BID [facility] Protocol Lacosamide 200 mg 03/17/18 22:00 03/18/18 08:40 Vimpat PO 200 mg BID ENIO Administration Levetiracetam 1,000 mg 03/17/18 22:00 03/18/18 08:40 Keppra Tablet PO 1,000 mg BID ENIO Administration Loratadine 10 mg 03/18/18 10:00 03/18/18 08:40 Claritin PO 10 mg DAILY ENIO Administration Magnesium Hydroxide 30 ml 03/17/18 18:22 Milk Of Magnesia PO .PRN X 1 PRN Constipation Melatonin 3 mg 03/17/18 22:00 03/17/18 22:24 Melatonin PO 3 mg QHS ENIO Administration Methocarbamol 750 mg 03/17/18 18:17 Methocarbamol PO TID PRN MUSCLE SPASM Metoprolol Tartrate 25 mg 03/17/18 22:00 03/18/18 08:41 Lopressor (Beta Jose Juan) PO 25 mg BID ENIO Administration Ondansetron HCl 8 mg 03/17/18 19:16 Zofran Odt PO Q8H PRN PRN NAUSEA/VOMITING Oxycodone HCl 5 mg 03/17/18 18:17 03/18/18 06:23 Oxyir PO 5 mg Q6H PRN PRN Administration SEVERE PAIN (6-10/10) Pantoprazole Sodium 40 mg 03/18/18 10:00 03/18/18 08:40 Protonix PO 40 mg DAILY ENIO Administration Polyethylene Glycol 17 gm 03/17/18 18:17 Miralax PO DAILY PRN Constipation Quetiapine Fumarate 12.5 mg 03/17/18 22:00 03/17/18 22:23 Seroquel PO 12.5 mg QHS ENIO Administration Senna/Docusate Sodium 2 tablet 03/17/18 22:00 03/18/18 08:40 Senokot-S, Daija-Colace PO 2 tablet BID ENIO Administration Venlafaxine HCl 75 mg 03/17/18 22:00 03/18/18 08:41 Effexor PO 75 mg BID ENIO Administration Assessment/Plan All Active Problems (This Medical Record has been edited. Action required.) Aortic dissection (Acute) Acute right MCA stroke (Acute) Left hemiplegia (Acute) Acute kidney injury (Acute) Seizure disorder (Acute) Dysphagia (Acute) Vocal cord paralysis (Acute) Dysphagia (Acute) Debility due to pain, complex hospitalization including due to aneurysm of his aorta requiring a decompressive craniotomy, initially recovered but had a large right sided subdural hematoma which has remained stable and has not required further craniotomy or intervention. Now presents back to the rehab unit for rehabilitation so that he can return home. Plan: Physical therapy for gait and balance Occupational Therapy for ADLs Speech therapy for a aphasia and dysphasia As needed analgesics Bowel protocol DVT prophylaxis: Lovenox Seizure prophylaxis with Keppra and Vimpat PEG tube: Await speech therapy recommendations but if he is taking 100% of his p.o. intake we will hold his tube feeds.
--- NOTE | 2018-03-18 12:01 | PCM.RU.PYE ---
Admission Information Status Changes from Prescreening?: No changes Identified Actual Problem List:: Falls, Pain, ALteration in Cmfrt, Cognitve Impr/Memory Loss, Alteration in Nutrition, Mobility Impaired, Self Care Deficit, BP, Hypertension, Ineffect.D/C Plan r/t Psy Potential Problem List:: DVT, Bleeding, Infection, UTI, Aspiration, Falls, Skin Integrity, Depression Risk of Complications DVT: LMWH, NITESH Hose, Sequential Compression Device Bleeding: Monitor Lab Values, Nursing to Teach Precautions for anti-coagulation therapy., Wound, if applicable, to be assessed every shift., Stroke patients assessed for lethargy or change in status. Infection: Clinical Staff to Monitor for S/S of infection:, S/S of infection include fever, redness, warmth, etc. Urinary Tract Infection: Monitor for frequency, burning, discomfort, or incontinence., Nursing will obtain urine sample for urinalysis and C&S when ordered. Aspiration: Clinical staff will monitor for coughing, drooling, congestion., Speech will evaluate swallowing and dsyphasia., Nursing will monitor patient swallowing during meals. Falls: Patient will be evaluated for Fall Precautions, Patient will be placed on Fall Precautions as indicated per protocol. Skin Breakdown: Nursing will assess skin daily using assessment tool., Nursing will place on Skin Breakdown Precautions as indicated. Pain: Clinical staff will assess patient's pain level per protocol., Medications will be given, if needed, and the pain level reassessed., Other methods: Massage, distraction, decrease stimulus, etc. used PRN. Plan of Care Patient requires physician specializing in physical medicine and rehab oversight to provide close medical supervision of rehab issues including: Pain Management, Sleep Problems, Bowel and Bladder, Medical and co-morbidity Management, DVT prophylaxis, Rehabilitation Leadership, Coordination of treatment team Patient needs Physical Therapy: For a minimum of 1 hour, At least 5 out of 7 days Patient needs Physical Therapy to improve:: Mobility, Mobility, Mobility, Strengthening, Transfers, Stretching, ROM, Endurance, Stairs, Gait, Balance Patient needs Occupational Therapy: For a minimum of 1 hour, At least 5 out of 7 days Patient needs Occupational Therapy to improve ADL's incl.: Eating, Grooming, Bathing, Dressing, Toileting, Toilet transfers, Community Reintegration, Higher functioning activities, Household tasks, Adaptive Equipment, Splinting, Other activities as determined Patient requires speech therapy: For a minimum of 1 hour, At least 5 out of 7 days Patient requires speech therapy for: Swallowing, Cognition, Language Skills, Compensatory Strategies Patient requires 24/ Rehabilitation Nursing for: Pain Issues, Identifying and preventing risk factors, Monitoring and reporting current medical conditions, Assisting with ambulation, transfer, and all ADL's, Teaching patients about disease process and medications, Family teaching, Providing safe environment, Bowel and Bladder Issues, Skin integrity, Medication Management Patient needs Object Oriented Programmer/ Case Management for: Discharge Planning, Arranging Home Equipment or Services, Family Interventions Patient needs Dietary and Nutrition Services for: Adequate Nutrition, Nutritional Supplements, Nutritional Education Goals Patient will remain: free from falls, or injury at time of discharge. Patient will perform bed mobility at: MOD I level of assist. Patient will complete transfers from bed to chair at: MOD I level of assist. Patient will ambulate: 100 feet, with MOD I assist, with LRD Patient will complete upper body dressing at: MOD I level of assist. Patient will complete lower body dressing at: MOD I level of assist. Patient will complete toileting at: MOD I level of assist. Patient will perform bathing at: MOD I level of assist. Patient will complete grooming at: MOD I level of assist. Patient will complete home management skills at: MOD I level of assist. Patient will achieve: 12 stairs, at MOD I assist Patient will have pain level of: of 3 or less Patient's skin will: remain intact, free from infection. Patient will receive: adequate nutrition. Discharge Planning Pt Prognosis for Sig. Practical Improv. w/in Reasonable Time: Good Anticipated D/C Destination: Home with Outpt Therapy Was Preadmission Assessment Accurate?: Yes
[2018-03-18 16:53] VITALS: BMI 18.3
[2018-03-18 19:31] VITALS: BP 144/58; PULSE 68; RESP 16; TEMP 36.8; O2SAT 96
[2018-03-18] MEDS: QUEtiapine 25 MG Tablet 12.5 MG PO (20:34)
[2018-03-18 20:35] VITALS: PULSE 68
[2018-03-18] MEDS: MELATONIN 3 MG TABLET PO (20:35)
[2018-03-18] MEDS: Hydrocortisone 2.5% Crm 1 APPLIC TOPICAL (20:36)
[2018-03-18] MEDS: Polyethylene Glycol 3350 17 GM PACKET PO (20:39)
[2018-03-18 20:46] VITALS: BMI 18.3
[2018-03-19] MEDS: Menthol/Lanolin/Calamine/Znox 113 GM Tube 1 APPLIC TOPICAL ×2 (04:55→21:14)
[2018-03-19] MEDS: Baclofen 10 MG Tablet PO ×3 (04:55→21:16)
[2018-03-19] MEDS: Enoxaparin 40 MG/0.4 ML Syringe SC (04:55)
[2018-03-19] MEDS: Aspirin 81 MG TAB.CHEW PO (04:55)
[2018-03-19] MEDS: oxyCODONE 5 MG Tablet PO ×2 (05:20→21:26)
[2018-03-19] MEDS: levETIRAcetam 1,000 MG Tablet 1000 MG PO ×2 (05:45→21:16)
[2018-03-19] MEDS: Pantoprazole Sodium 40 MG Tablet PO (05:46)
[2018-03-19] MEDS: Venlafaxine HCl 75 MG Tablet PO ×2 (05:46→21:16)
[2018-03-19 05:47] VITALS: BP 111/63; PULSE 68
[2018-03-19] MEDS: Senna/Docusate Sodium 1 Tablet 2 TABLET PO (05:48)
[2018-03-19] MEDS: busPIRone 5 MG Tablet 10 MG PO ×2 (05:48→21:15)
[2018-03-19] MEDS: Loratadine 10 MG Tablet PO (05:48)
[2018-03-19] MEDS: Hydrocortisone 2.5% Crm 1 APPLIC TOPICAL ×2 (05:48→21:13)
[2018-03-19] MEDS: Lacosamide 100 MG Tablet 200 MG PO ×2 (06:08→21:19)
[2018-03-19 06:15] VITALS: BP 111/63; PULSE 68; RESP 18; TEMP 36.6; O2SAT 94
[2018-03-19 14:45] VITALS: BMI 18.3
[2018-03-19] MEDS: Methocarbamol 750 MG Tablet PO (14:54)
--- NOTE | 2018-03-19 16:57 | PCM.PROGNOTE ---
<Nataliya Anguiano - Last Filed: 03/19/18 17:18> Subjective: Patient seen and examined. Resting in chair in no acute distress. Visit at bedside. Patient denies current complaints. Denies GI/ complaints. Denies new neurologic complaints. - Physical Exam General: Alert, Oriented x3, Cooperative, No apparent distress HEENT: Atraumatic, PERRLA, EOMI, Normocephalic Neck: Supple, No JVD, Negative Carotid Bruits Lungs: Clear to auscultation, Normal air movement Cardiovascular: Regular rate, Regular Rhythm, Normal S1, Normal S2, No murmurs Abdomen: Bowel Sounds Present, Soft, Non Tender, Non-Distended Extremities: No clubbing, No cyanosis, No edema, Capillary Refill Less than 3 Seconds Skin: No rashes, No breakdown Musculoskeletal: No Tenderness to Palpation of Joints or Extremities Neurological: Cranial nerves II-XII grossly intact, - - Left hemiparesis Psych/Mental Status: Normal Affect Vital Signs Temp Pulse Resp BP Pulse Ox 98 F 68 18 111/63 94 03/19/18 06:15 03/19/18 06:15 03/19/18 06:15 03/19/18 06:15 03/19/18 06:15 Oxygen Delivery Method Room Air Weight: 133 lb 13.129 oz Body Mass Index (BMI) 18.3 Intake and Output for Last 24 Hours 03/17/18 03/18/18 03/19/18 23:59 23:59 23:59 Intake Total 1040 / 1040 1920 / 1920 860 / 860 Output Total 550 / 550 2049 / 2049 400 / 400 Balance 490 / 490 -130 / -130 460 / 460 Medical Necessity - Tobacco Use Smoking Status: Former smoker Tobacco Use: Non-smoker Assessment/Plan All Active Problems (This Medical Record has been edited. Action required.) Aortic dissection (Acute) Acute right MCA stroke (Acute) Left hemiplegia (Acute) Acute kidney injury (Acute) Seizure disorder (Acute) Dysphagia (Acute) Vocal cord paralysis (Acute) Dysphagia (Acute) 1. Physical debility secondary to right MCA stroke status post craniectomy followed by cranioplasty with residual left-sided hemiparesis. Patient was then transferred back to [facility] for a new left midline shift and a large subdural pneumocephalus. This however was not felt to be new and patient was stable for transfer back to rehab unit for further therapy. PT/OT/ST. 2. Aortic dissection status post surgery 3. Seizure disorder-continue Keppra regimen. 4. Chronic low back pain-continue gabapentin regimen. 5. Vocal cord paralysis-status post PEG tube. Continue ST. Management per ENT. 6. Hypertension-stable, continue home metoprolol regimen. 7. GERD-continue PPI. 8. Depression-continue home Seroquel and Effexor regimen. DVT prophylaxis-Lovenox subcu. This patient was seen by DENA Pierre under the supervision of Dr. Gama. <Maurice Gama - Last Filed: 03/19/18 18:00> - Physical Exam General: Alert, No apparent distress, - - seen on the commode. afebrile. HEENT: - - large right sided incision, clean and intact on scalp Neck: No Nodes, Thyroid Normal Size and Texture Lungs: Clear to auscultation, Normal air movement, No rhonchi, No wheeze Cardiovascular: Regular rate, Regular Rhythm, Normal S1, Normal S2 Extremities: No cyanosis, No edema Skin: No rashes Musculoskeletal: Cachexia, Muscle Wasting Psych/Mental Status: Normal Affect, Appropriate Vital Signs Temp Pulse Resp BP Pulse Ox 36.6 C 68 18 111/63 98 03/19/18 06:15 03/19/18 06:15 03/19/18 06:15 03/19/18 06:15 03/19/18 17:00 Oxygen Delivery Method Room Air Weight: 60.7 kg Body Mass Index (BMI) 18.3 Intake and Output for Last 24 Hours 03/17/18 03/18/18 03/19/18 23:59 23:59 23:59 Intake Total 1040 / 1040 1920 / 1920 920 / 920 Output Total 550 / 550 2049 / 2049 400 / 400 Balance 490 / 490 -130 / -130 520 / 520 Assessment/Plan Patient seen and examined independently. Data reviewed. I agree with the above note by the nurse practitioner. 1. Right MCA stroke Status post craniectomy and cranioplasty. Still with residual left-sided hemiparesis Started back on aspirin 2. Pneumocephalus Reevaluated by [facility] and no acute changes noted on their behalf and recommend no further surgical intervention Follow-up with neurosurgery as outpatient 3. Aortic dissection Status post repair Patient currently normotensive 4. Seizure disorder Status post stroke On Keppra 5. Vocal cord paralysis Status post intubation Still has some hypophonia Saw ENT and had some injections that the patient stated was Botox injections Follow-up with ENT as outpatient Thank you for the consult, the hospital service will follow intermittently during the patient's course in the acute rehab unit. Code Visit Inpatient E&M: 47401 Subs Hosp L3
[2018-03-19 17:00] VITALS: BP 122/79; PULSE 78; RESP 18; TEMP 36.6; O2SAT 96; O2SAT 98
[2018-03-19 21:18] VITALS: BP 129/70; PULSE 68
[2018-03-19] MEDS: Metoprolol Tartrate 25 MG Tablet PO (21:18)
[2018-03-19] MEDS: MELATONIN 3 MG TABLET PO (21:19)
[2018-03-19] MEDS: QUEtiapine 25 MG Tablet 12.5 MG PO (21:19)
[2018-03-19 21:30] VITALS: BP 129/70; PULSE 69; RESP 18; TEMP 36.7; O2SAT 94
[2018-03-20 00:46] VITALS: BMI 18.3
--- NOTE | 2018-03-20 04:26 | NURSING ---
Previous note to this nurse was submitted on wrong pt but this nurse was unable to amend the note d/t the access to notes is unavailable at this time.
--- NOTE | 2018-03-20 04:29 | NURSING ---
pt repositioned from left to right side throughout the night and toileting needs met throughout the night at time of repositioning. Pt slept more soundly this hs than previous 2 nights. Pillow placed under feet while using the boots for the heels. Heels elevated on pillow.
--- NOTE | 2018-03-20 04:32 | NURSING ---
Reviewed and agree with [employer] documentation. and [facility] charting
[2018-03-20] MEDS: Enoxaparin 40 MG/0.4 ML Syringe SC (06:26)
[2018-03-20] MEDS: Baclofen 10 MG Tablet PO ×3 (06:26→23:13)
[2018-03-20] MEDS: Menthol/Lanolin/Calamine/Znox 113 GM Tube 1 APPLIC TOPICAL ×2 (06:37→23:14)
[2018-03-20 08:37] VITALS: BP 118/64; PULSE 75; RESP 17; TEMP 36.8; O2SAT 95
[2018-03-20] MEDS: oxyCODONE 5 MG Tablet PO (09:08)
--- NOTE | 2018-03-20 10:05 | PCM.PN.NEU ---
Subjective: Patient staffed in team meeting. and daughter are present. Progress is reviewed. He has made significant progress. Yesterday he received presumably Botox injections in his vocal cord by Dr. Woodard who is an ENT with the [facility]. His speech is improved today. With physical therapy he is max assist with 2 walking with a wall rail. With occupational therapy he needs 75% assistance with grooming, but is max assist with upper and lower body care. Speech as mentioned is doing much better. He is consuming 100% of his diet and is not receiving any extra tube feedings. Nursing notes that he is sleeping well and vitals are controlled. Family questions are answered. They strongly believe he should receive more therapy and should continue to get therapy in the rehab unit. - Physical Exam General: Alert, Oriented x3, Cooperative, No apparent distress Neurological: - - Right hemiparesis stable Psych/Mental Status: Flat Affect Vital Signs Temp Pulse Resp BP Pulse Ox 36.8 C 75 17 118/64 95 03/20/18 08:37 03/20/18 08:37 03/20/18 08:37 03/20/18 08:37 03/20/18 08:37 Oxygen Delivery Method Room Air Weight: 60.7 kg Body Mass Index (BMI) 18.3 Intake and Output for Last 24 Hours 03/18/18 03/19/18 03/20/18 23:59 23:59 23:59 Intake Total 1920 / 1920 980 / 980 Output Total 2049 400 / 400 400 / 400 Balance -130 / -130 580 / 580 -400 / -400 Current Medications Generic Name Dose Route Start Last Admin Trade Name Freq PRN Reason Stop Dose Admin Acetaminophen 650 mg 03/17/18 18:22 03/18/18 08:53 Tylenol PO 650 mg Q6H PRN PRN Administration Mild Pain (0-3/10)/Headache Acetylcysteine 400 mg 03/17/18 18:17 Mucomyst INHALATION Q6H.RT PRN sob/wheezing Albuterol/Ipratropium 3 ml 03/17/18 18:17 Duoneb INHALATION Q4H.RT PRN SOB &/OR WHEEZING Aspirin 81 mg 03/18/18 08:00 03/19/18 04:55 Aspirin, Baby PO 81 mg DAILY@0800 ENIO Administration Baclofen 10 mg 03/17/18 22:00 03/20/18 06:26 Lioresal PO 10 mg TID ENIO Administration Bisacodyl 10 mg 03/17/18 18:22 Dulcolax RECTAL .PRN X 1 PRN Constipation Buspirone HCl 10 mg 03/17/18 22:00 03/19/18 21:15 Buspar PO 10 mg BID ENIO Administration Calamine/Phenol 1 applic 03/17/18 22:00 03/20/18 06:37 Calmoseptine Ointment TOPICAL 1 applicatio 0600,2200 [facility] Administration Protocol Enoxaparin Sodium 40 mg 03/18/18 06:00 03/20/18 06:26 Lovenox SC 40 mg DAILY@0600 [facility] Administration Hydrocortisone 1 applic 03/17/18 22:00 03/19/18 21:13 Hytone TOPICAL 1 applicatio BID [facility] Administration Protocol Lacosamide 200 mg 03/17/18 22:00 03/19/18 21:19 Vimpat PO 200 mg BID ENIO Administration Levetiracetam 1,000 mg 03/17/18 22:00 03/19/18 21:16 Keppra Tablet PO 1,000 mg BID [facility] Administration Loratadine 10 mg 03/18/18 10:00 03/19/18 05:48 Claritin PO 10 mg DAILY [facility] Administration Magnesium Hydroxide 30 ml 03/17/18 18:22 Milk Of Magnesia PO .PRN X 1 PRN Constipation Melatonin 3 mg 03/17/18 22:00 03/19/18 21:19 Melatonin PO 3 mg QHS [facility] Administration Methocarbamol 750 mg 03/17/18 18:17 03/19/18 14:54 Methocarbamol PO 750 mg TID PRN Administration MUSCLE SPASM Metoprolol Tartrate 25 mg 03/17/18 22:00 03/19/18 21:18 Lopressor (Beta Jose Juan) PO 25 mg BID [facility] Administration Ondansetron HCl 8 mg 03/17/18 19:16 Zofran Odt PO Q8H PRN PRN NAUSEA/VOMITING Oxycodone HCl 5 mg 03/17/18 18:17 03/20/18 09:08 Oxyir PO 5 mg Q6H PRN PRN Administration SEVERE PAIN (6-10/10) Pantoprazole Sodium 40 mg 03/18/18 10:00 03/19/18 05:46 Protonix PO 40 mg DAILY ENIO Administration Polyethylene Glycol 17 gm 03/17/18 18:17 03/18/18 20:39 Miralax PO 17 gm DAILY PRN Administration Constipation Quetiapine Fumarate 12.5 mg 03/17/18 22:00 03/19/18 21:19 Seroquel PO 12.5 mg QHS ENIO Administration Senna/Docusate Sodium 1 tablet 03/20/18 10:00 Senokot-S, Daija-Colace PO BID ENIO Venlafaxine HCl 75 mg 03/17/18 22:00 03/19/18 21:16 Effexor PO 75 mg BID ENIO Administration Medical Necessity - Tobacco Use Smoking Status: Former smoker Tobacco Use: Non-smoker Assessment/Plan All Active Problems (This Medical Record has been edited. Action required.) Aortic dissection (Acute) Acute right MCA stroke (Acute) Left hemiplegia (Acute) Acute kidney injury (Acute) Seizure disorder (Acute) Dysphagia (Acute) Vocal cord paralysis (Acute) Dysphagia (Acute) Debility due to pain, complex hospitalization including due to aneurysm of his aorta requiring a decompressive craniotomy, initially recovered but had a large right sided subdural hematoma which has remained stable and has not required further craniotomy or intervention. Now presents back to the rehab unit for rehabilitation so that he can return home. Plan: Physical therapy for gait and balance Occupational Therapy for ADLs Speech therapy for a aphasia and dysphasia As needed analgesics Bowel protocol DVT prophylaxis: Lovenox Seizure prophylaxis with Keppra and Vimpat PEG tube: Await speech therapy recommendations but if he is taking 100% of his p.o. intake we will hold his tube feeds. 03/20: No longer receiving any tube feeds.
--- NOTE | 2018-03-20 10:08 | PN.NEURO_ITS ---
Subjective: Patient staffed in team meeting. and daughter are present. Progress is reviewed. He has made significant progress. Yesterday he received presumably Botox injections in his vocal cord by Dr. Woodard who is an ENT with the [facility]. His speech is improved today. With physical therapy he is max assist with 2 walking with a wall rail. With occupational therapy he needs 75% assistance with grooming, but is max assist with upper and lower body care. Speech as mentioned is doing much better. He is consuming 100% of his diet and is not receiving any extra tube feedings. Nursing notes that he is sleeping well and vitals are controlled. Family questions are answered. They strongly believe he should receive more therapy and should continue to get therapy in the rehab unit. - Physical Exam General: Alert, Oriented x3, Cooperative, No apparent distress Neurological: - - Right hemiparesis stable Psych/Mental Status: Flat Affect Vital Signs Temp Pulse Resp BP Pulse Ox 36.8 C 75 17 118/64 95 03/20/18 08:37 03/20/18 08:37 03/20/18 08:37 03/20/18 08:37 03/20/18 08:37 Oxygen Delivery Method Room Air Weight: 60.7 kg Body Mass Index (BMI) 18.3 Intake and Output for Last 24 Hours 03/18/18 03/19/18 03/20/18 23:59 23:59 23:59 Intake Total 1920 / 1920 980 / 980 Output Total 2049 400 / 400 400 / 400 Balance -130 / -130 580 / 580 -400 / -400 Current Medications Generic Name Dose Route Start Last Admin Trade Name Freq PRN Reason Stop Dose Admin Acetaminophen 650 mg 03/17/18 18:22 03/18/18 08:53 Tylenol PO 650 mg Q6H PRN PRN Administration Mild Pain (0-3/10)/Headache Acetylcysteine 400 mg 03/17/18 18:17 Mucomyst INHALATION Q6H.RT PRN sob/wheezing Albuterol/Ipratropium 3 ml 03/17/18 18:17 Duoneb INHALATION Q4H.RT PRN SOB &/OR WHEEZING Aspirin 81 mg 03/18/18 08:00 03/19/18 04:55 Aspirin, Baby PO 81 mg DAILY@0800 ENIO Administration Baclofen 10 mg 03/17/18 22:00 03/20/18 06:26 Lioresal PO 10 mg TID ENIO Administration Bisacodyl 10 mg 03/17/18 18:22 Dulcolax RECTAL .PRN X 1 PRN Constipation Buspirone HCl 10 mg 03/17/18 22:00 03/19/18 21:15 Buspar PO 10 mg BID ENIO Administration Calamine/Phenol 1 applic 03/17/18 22:00 03/20/18 06:37 Calmoseptine Ointment TOPICAL 1 applicatio 0600,2200 [facility] Administration Protocol Enoxaparin Sodium 40 mg 03/18/18 06:00 03/20/18 06:26 Lovenox SC 40 mg DAILY@0600 [facility] Administration Hydrocortisone 1 applic 03/17/18 22:00 03/19/18 21:13 Hytone TOPICAL 1 applicatio BID [facility] Administration Protocol Lacosamide 200 mg 03/17/18 22:00 03/19/18 21:19 Vimpat PO 200 mg BID ENIO Administration Levetiracetam 1,000 mg 03/17/18 22:00 03/19/18 21:16 Keppra Tablet PO 1,000 mg BID [facility] Administration Loratadine 10 mg 03/18/18 10:00 03/19/18 05:48 Claritin PO 10 mg DAILY [facility] Administration Magnesium Hydroxide 30 ml 03/17/18 18:22 Milk Of Magnesia PO .PRN X 1 PRN Constipation Melatonin 3 mg 03/17/18 22:00 03/19/18 21:19 Melatonin PO 3 mg QHS [facility] Administration Methocarbamol 750 mg 03/17/18 18:17 03/19/18 14:54 Methocarbamol PO 750 mg TID PRN Administration MUSCLE SPASM Metoprolol Tartrate 25 mg 03/17/18 22:00 03/19/18 21:18 Lopressor (Beta Jose Juan) PO 25 mg BID [facility] Administration Ondansetron HCl 8 mg 03/17/18 19:16 Zofran Odt PO Q8H PRN PRN NAUSEA/VOMITING Oxycodone HCl 5 mg 03/17/18 18:17 03/20/18 09:08 Oxyir PO 5 mg Q6H PRN PRN Administration SEVERE PAIN (6-10/10) Pantoprazole Sodium 40 mg 03/18/18 10:00 03/19/18 05:46 Protonix PO 40 mg DAILY [facility] Administration Polyethylene Glycol 17 gm 03/17/18 18:17 03/18/18 20:39 Miralax PO 17 gm DAILY PRN Administration Constipation Quetiapine Fumarate 12.5 mg 03/17/18 22:00 03/19/18 21:19 Seroquel PO 12.5 mg QHS ENIO Administration Senna/Docusate Sodium 1 tablet 03/20/18 10:00 Senokot-S, Daija-Colace PO BID ENIO Venlafaxine HCl 75 mg 03/17/18 22:00 03/19/18 21:16 Effexor PO 75 mg BID ENIO Administration Medical Necessity - Tobacco Use Smoking Status: Former smoker Tobacco Use: Non-smoker Assessment/Plan All Active Problems (This Medical Record has been edited. Action required.) Aortic dissection (Acute) Acute right MCA stroke (Acute) Left hemiplegia (Acute) Acute kidney injury (Acute) Seizure disorder (Acute) Dysphagia (Acute) Vocal cord paralysis (Acute) Dysphagia (Acute) Debility due to pain, complex hospitalization including due to aneurysm of his aorta requiring a decompressive craniotomy, initially recovered but had a large right sided subdural hematoma which has remained stable and has not required further craniotomy or intervention. Now presents back to the rehab unit for rehabilitation so that he can return home. Plan: Physical therapy for gait and balance Occupational Therapy for ADLs Speech therapy for a aphasia and dysphasia As needed analgesics Bowel protocol DVT prophylaxis: Lovenox Seizure prophylaxis with Keppra and Vimpat PEG tube: Await speech therapy recommendations but if he is taking 100% of his p.o. intake we will hold his tube feeds. 03/20: No longer receiving any tube feeds.
[2018-03-20 10:22] VITALS: BP 118/64; PULSE 64
[2018-03-20] MEDS: Aspirin 81 MG TAB.CHEW PO (10:33)
[2018-03-20] MEDS: Pantoprazole Sodium 40 MG Tablet PO (10:33)
[2018-03-20] MEDS: levETIRAcetam 1,000 MG Tablet 1000 MG PO ×2 (10:33→23:13)
[2018-03-20] MEDS: Venlafaxine HCl 75 MG Tablet PO ×2 (10:33→23:13)
[2018-03-20] MEDS: Lacosamide 100 MG Tablet 200 MG PO ×2 (10:33→23:10)
[2018-03-20] MEDS: Loratadine 10 MG Tablet PO (10:33)
[2018-03-20] MEDS: busPIRone 5 MG Tablet 10 MG PO ×3 (10:34→23:15)
[2018-03-20] MEDS: Hydrocortisone 2.5% Crm 1 APPLIC TOPICAL ×2 (10:35→23:13)
--- NOTE | 2018-03-20 11:22 | CASEMGMT ---
Team meeting held. Patient present as well as patient family. No discharge date set at this time. Patient to continue with further care and treatment on the Inpatient Rehab Unit. Patient with insurance update due on 03/21/18. Patient and patient family aware that continued stay approval is not guaranteed. Support given. Will continue to follow. Guillermina PANTOJA, [employer]ENER
[2018-03-20] MEDS: Acetaminophen 325 MG Tablet 650 MG PO ×2 (14:07→23:24)
[2018-03-20 15:35] VITALS: BMI 18.3
--- NOTE | 2018-03-20 15:59 | CHAPLAIN ---
Type of Pastoral Visit ___ Initial Visit _x__ Follow-up Visit ___ On-call Visit ___ General Patient Visit ___ Spiritual Assessment ___ Family Conference ___ Bereavement ___ Rapid Response ___ Code Blue ___ Other (describe below) Pastoral Care Referral From _x__ Patient ___ Family ___ Nurse ___ Physician ___ Customs Compliance Analyst ___ Video Systems Engineer ___ Other (describe below) Sacrament/Intervention _x__ Active listening ___ Anointing ___ Yazidi ___ Bereavement ___ Communion ___ Sarah exploration ___ ___ Life review _x__ Prayer ___ Reconciliation ___ Sacrament of Sick _x__ Supportive presence ___ Wedding ___ Other (describe below) Pastoral Comments 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
[2018-03-20 19:45] VITALS: BP 109/66; PULSE 73; RESP 17; TEMP 36.9; O2SAT 93
[2018-03-20 22:55] VITALS: BP 137/95; PULSE 65
[2018-03-20] MEDS: QUEtiapine 25 MG Tablet 12.5 MG PO (23:11)
[2018-03-20 23:12] VITALS: BP 137/95; PULSE 65
[2018-03-20] MEDS: Metoprolol Tartrate 25 MG Tablet PO (23:12)
[2018-03-20] MEDS: MELATONIN 3 MG TABLET PO (23:12)
[2018-03-20 23:45] VITALS: BP 122/73; PULSE 69
[2018-03-21] MEDS: Baclofen 10 MG Tablet PO ×3 (05:47→21:28)
[2018-03-21] MEDS: Enoxaparin 40 MG/0.4 ML Syringe SC (05:47)
[2018-03-21] MEDS: Menthol/Lanolin/Calamine/Znox 113 GM Tube 1 APPLIC TOPICAL ×2 (05:47→21:29)
[2018-03-21] MEDS: oxyCODONE 5 MG Tablet PO (05:51)
[2018-03-21 06:40] VITALS: O2SAT 95
[2018-03-21 07:34] VITALS: BP 129/77; PULSE 60; RESP 16; TEMP 36.9; O2SAT 96
--- NOTE | 2018-03-21 10:07 | PCM.PN.NEU ---
Subjective: Tolerating therapies. He does report some discomfort around his PEG tube site. Otherwise tolerating therapies. No GI or complaints. Awaiting update from insurance. Objective: Stable left hemiparesis. Awake and oriented ?3 Follows all commands. - Physical Exam Psych/Mental Status: Flat Affect Vital Signs Temp Pulse Resp BP Pulse Ox 36.9 C 60 16 129/77 H 96 03/21/18 07:34 03/21/18 07:34 03/21/18 07:34 03/21/18 07:34 03/21/18 07:34 Oxygen Delivery Method Room Air Weight: 61 kg Body Mass Index (BMI) 18.3 Intake and Output for Last 24 Hours 03/19/18 03/20/18 03/21/18 23:59 23:59 23:59 Intake Total 980 / 980 540 / 540 120 / 120 Output Total 400 / 400 650 / 650 450 / 450 Balance 580 / 580 -110 / -110 -330 / -330 Current Medications Generic Name Dose Route Start Last Admin Trade Name Freq PRN Reason Stop Dose Admin Acetaminophen 650 mg 03/17/18 18:22 03/20/18 23:24 Tylenol PO 650 mg Q6H PRN PRN Administration Mild Pain (0-3/10)/Headache Acetylcysteine 400 mg 03/17/18 18:17 Mucomyst INHALATION Q6H.RT PRN sob/wheezing Albuterol/Ipratropium 3 ml 03/17/18 18:17 Duoneb INHALATION Q4H.RT PRN SOB &/OR WHEEZING Aspirin 81 mg 03/18/18 08:00 03/20/18 10:33 Aspirin, Baby PO 81 mg DAILY@0800 ENIO Administration Baclofen 10 mg 03/17/18 22:00 03/21/18 05:47 Lioresal PO 10 mg TID ENIO Administration Bisacodyl 10 mg 03/17/18 18:22 Dulcolax RECTAL .PRN X 1 PRN Constipation Buspirone HCl 10 mg 03/17/18 22:00 03/20/18 23:15 Buspar PO 10 mg BID ENIO Administration Calamine/Phenol 1 applic 03/17/18 22:00 03/21/18 05:47 Calmoseptine Ointment TOPICAL 1 applicatio 0600,2200 [facility] Administration Protocol Enoxaparin Sodium 40 mg 03/18/18 06:00 03/21/18 05:47 Lovenox SC 40 mg DAILY@0600 ENIO Administration Hydrocortisone 1 applic 03/17/18 22:00 03/20/18 23:13 Hytone TOPICAL 1 applicatio BID [facility] Administration Protocol Lacosamide 200 mg 03/17/18 22:00 03/20/18 23:10 Vimpat PO 200 mg BID ENIO Administration Levetiracetam 1,000 mg 03/17/18 22:00 03/20/18 23:13 Keppra Tablet PO 1,000 mg BID ENIO Administration Loratadine 10 mg 03/18/18 10:00 03/20/18 10:33 Claritin PO 10 mg DAILY [facility] Administration Magnesium Hydroxide 30 ml 03/17/18 18:22 Milk Of Magnesia PO .PRN X 1 PRN Constipation Melatonin 3 mg 03/17/18 22:00 03/20/18 23:12 Melatonin PO 3 mg QHS [facility] Administration Methocarbamol 750 mg 03/17/18 18:17 03/19/18 14:54 Methocarbamol PO 750 mg TID PRN Administration MUSCLE SPASM Metoprolol Tartrate 25 mg 03/17/18 22:00 03/20/18 23:12 Lopressor (Beta Jose Juan) PO 25 mg BID [facility] Administration Ondansetron HCl 8 mg 03/17/18 19:16 Zofran Odt PO Q8H PRN PRN NAUSEA/VOMITING Oxycodone HCl 5 mg 03/17/18 18:17 03/21/18 05:51 Oxyir PO 5 mg Q6H PRN PRN Administration SEVERE PAIN (6-10/10) Pantoprazole Sodium 40 mg 03/18/18 10:00 03/20/18 10:33 Protonix PO 40 mg DAILY [facility] Administration Polyethylene Glycol 17 gm 03/17/18 18:17 03/18/18 20:39 Miralax PO 17 gm DAILY PRN Administration Constipation Quetiapine Fumarate 12.5 mg 03/17/18 22:00 03/20/18 23:11 Seroquel PO 12.5 mg QHS [facility] Administration Senna/Docusate Sodium 1 tablet 03/20/18 10:00 03/20/18 23:18 Senokot-S, Daija-Colace PO Not Given BID [facility] Venlafaxine HCl 75 mg 03/17/18 22:00 03/20/18 23:13 Effexor PO 75 mg BID ENIO Administration Medical Necessity - Tobacco Use Smoking Status: Former smoker Tobacco Use: Non-smoker Assessment/Plan All Active Problems (This Medical Record has been edited. Action required.) Aortic dissection (Acute) Acute right MCA stroke (Acute) Left hemiplegia (Acute) Acute kidney injury (Acute) Seizure disorder (Acute) Dysphagia (Acute) Vocal cord paralysis (Acute) Dysphagia (Acute) Debility due to pain, complex hospitalization including due to aneurysm of his aorta requiring a decompressive craniotomy, initially recovered but had a large right sided subdural hematoma which has remained stable and has not required further craniotomy or intervention. Now presents back to the rehab unit for rehabilitation so that he can return home. Plan: Physical therapy for gait and balance Occupational Therapy for ADLs Speech therapy for a aphasia and dysphasia As needed analgesics Bowel protocol DVT prophylaxis: Lovenox Seizure prophylaxis with Keppra and Vimpat PEG tube: Await speech therapy recommendations but if he is taking 100% of his p.o. intake we will hold his tube feeds. 03/20: No longer receiving any tube feeds. 03/21: Consider removing PEG tube in a few weeks if it is no longer in use.
[2018-03-21 10:17] VITALS: BP 129/77; PULSE 60
[2018-03-21] MEDS: Pantoprazole Sodium 40 MG Tablet PO (10:17)
[2018-03-21] MEDS: Metoprolol Tartrate 25 MG Tablet PO (10:17)
[2018-03-21] MEDS: Venlafaxine HCl 75 MG Tablet PO ×2 (10:17→21:29)
[2018-03-21] MEDS: Senna/Docusate Sodium 1 Tablet PO ×2 (10:17→21:27)
[2018-03-21] MEDS: Loratadine 10 MG Tablet PO (10:18)
[2018-03-21] MEDS: Aspirin 81 MG TAB.CHEW PO (10:18)
[2018-03-21] MEDS: levETIRAcetam 1,000 MG Tablet 1000 MG PO ×2 (10:18→21:28)
[2018-03-21] MEDS: Lacosamide 100 MG Tablet 200 MG PO ×2 (10:23→21:28)
[2018-03-21 10:44] VITALS: BMI 18.3
[2018-03-21] MEDS: Hydrocortisone 2.5% Crm 1 APPLIC TOPICAL ×2 (10:45→21:30)
--- NOTE | 2018-03-21 12:23 | CASEMGMT ---
Insurance Clinical information sent. Pending continued stay approval at this time. Auth#[id number] Guillermina PANTOJA, [employer]IPPER [employer]URNER
--- NOTE | 2018-03-21 13:07 | PCM.PROGNOTE ---
Subjective: Chief complaint: Follow-up after consultation after admission to inpatient rehabilitation unit after patient suffered a aortic dissection status post surgical repair and his postoperative course complicated by right MCA stroke status post decompressive craniectomy, had vocal cord paralysis and pneumonia with respiratory failure postoperatively as well as PEG tube placement for dysphagia. Patient seen and examined. No acute events overnight. He still having significant weakness on the left side of his body. He denies any new symptoms. He was questioned about the muscle spasm and somebody recommended baclofen pump for him. His vital signs are stable. - Physical Exam General: Alert, Cooperative, No apparent distress HEENT: Atraumatic, PERRLA, EOMI, Normocephalic Oral: Moist Mucosa, No Gingival or Mucosal Lesions/ Ulcerations Neck: Supple, No JVD, Negative Carotid Bruits, Trachea Midline, Thyroid Normal Size and Texture Lungs: Clear to auscultation, No rhonchi, No wheeze, No rales, Diminished Cardiovascular: Regular rate, Regular Rhythm, Normal S1, Normal S2 Abdomen: Bowel Sounds Present, Soft, Non Tender, Non-Distended, No Hepato-splenomegaly, - - PEG tube in place. Extremities: No clubbing, No cyanosis, No edema Skin: No rashes, No breakdown Lymphatic: No Cervical, Supraclavicular, or Inguinal Adenopathy Neurological: Cranial nerves II-XII grossly intact, - - Left side spastic hemiparesis. Psych/Mental Status: Normal Affect, Appropriate Vital Signs Temp Pulse Resp BP Pulse Ox 98.4 F 60 16 129/77 H 96 03/21/18 07:34 03/21/18 10:17 03/21/18 07:34 03/21/18 10:17 03/21/18 07:34 Oxygen Delivery Method Room Air Weight: 134 lb 7.712 oz Body Mass Index (BMI) 18.3 Intake and Output for Last 24 Hours 03/19/18 03/20/18 03/21/18 23:59 23:59 23:59 Intake Total 980 / 980 540 / 540 120 / 120 Output Total 400 / 400 650 / 650 450 / 450 Balance 580 / 580 -110 / -110 -330 / -330 Medical Necessity - Tobacco Use Smoking Status: Former smoker Tobacco Use: Non-smoker Assessment/Plan All Active Problems (This Medical Record has been edited. Action required.) Aortic dissection (Acute) Acute right MCA stroke (Acute) Left hemiplegia (Acute) Acute kidney injury (Acute) Seizure disorder (Acute) Dysphagia (Acute) Vocal cord paralysis (Acute) Dysphagia (Acute) This is a 52 years old male patient admitted to rehabilitation unit after he had recent complicated history of aortic dissection status post repair and his post operative course complicated by acute right MCA stroke, status post decompressive craniectomy with residual left-sided spastic hemiparesis and also his postoperative course complicated by pneumonia, respiratory failure and vocal cord paralysis as well as dysphagia requiring PEG tube placement. #1 physical debility/functional decline: Secondary to complicated recent aortic dissection status post 3. With multiple postoperative complications as listed below. Patient does have spastic left hemiparesis. He has been acute for dysphagia. His vital signs are stable. His routine blood work that was done 3 days ago was unremarkable. Plan to continue PT OT according to rehab team. #2 acute right MCA stroke: Status post decompressive craniectomy with residual left-sided spastic hemiparesis. Patient started on aspirin. His vital signs are stable, blood pressure under control. #3 aortic dissection: Status post surgical repair, stable. #4 seizure disorder: Stable, continue Keppra. #5 vocal cord paralysis: Continue speech therapy, management according to ENT. #6 hypertension: Blood pressure stable, continue current medications. #7 dysphagia: Status post PEG tube placement. Patient is taking p.o. as well. #8 depression: Continue Effexor and Seroquel. #9 DVT prophylaxis: Subcu Lovenox. This note was generated with [employer] dictation software. It may contain incorrect words, spelling, and punctuation that were not noted in checking the note before signing. Code Visit Inpatient E&M: 72319 Subs Hosp L2
--- NOTE | 2018-03-21 17:00 | CASEMGMT ---
Insurance Continued stay approved with next update due on 03/28/18. Auth#[id number] Guillermina PANTOJA, DOG OR ANIMAL SITTER
[2018-03-21 21:00] VITALS: BP 104/64; PULSE 66; RESP 16; TEMP 36.7; O2SAT 94
[2018-03-21 21:03] VITALS: PULSE 66; RESP 16; O2SAT 94
[2018-03-21 21:07] VITALS: BMI 18.3
[2018-03-21 21:14] VITALS: BP 104/64; PULSE 66
[2018-03-21] MEDS: QUEtiapine 25 MG Tablet 12.5 MG PO (21:25)
[2018-03-21] MEDS: MELATONIN 3 MG TABLET PO (21:29)
[2018-03-21] MEDS: busPIRone 5 MG Tablet 10 MG PO (21:29)
[2018-03-21] MEDS: Acetaminophen 325 MG Tablet 650 MG PO (21:34)
--- NOTE | 2018-03-22 01:01 | NURSING ---
Reviewed and agree with LPNs fims and handoff
[2018-03-22] MEDS: Baclofen 10 MG Tablet PO ×3 (05:24→23:48)
[2018-03-22] MEDS: Enoxaparin 40 MG/0.4 ML Syringe SC (05:24)
[2018-03-22] MEDS: Menthol/Lanolin/Calamine/Znox 113 GM Tube 1 APPLIC TOPICAL ×2 (05:24→23:48)
[2018-03-22 08:42] VITALS: BP 136/87; PULSE 61; RESP 18; TEMP 36.9; O2SAT 96
[2018-03-22] MEDS: Aspirin 81 MG TAB.CHEW PO (08:49)
[2018-03-22 08:50] VITALS: PULSE 61
[2018-03-22] MEDS: Venlafaxine HCl 75 MG Tablet PO ×2 (08:50→23:48)
[2018-03-22] MEDS: Metoprolol Tartrate 25 MG Tablet PO ×2 (08:50→23:47)
[2018-03-22] MEDS: Loratadine 10 MG Tablet PO (08:50)
[2018-03-22] MEDS: levETIRAcetam 1,000 MG Tablet 1000 MG PO ×2 (08:50→23:48)
[2018-03-22] MEDS: Senna/Docusate Sodium 1 Tablet PO ×2 (08:50→23:47)
[2018-03-22] MEDS: Pantoprazole Sodium 40 MG Tablet PO (08:51)
[2018-03-22] MEDS: Hydrocortisone 2.5% Crm 1 APPLIC TOPICAL ×2 (08:51→23:48)
[2018-03-22] MEDS: busPIRone 5 MG Tablet 10 MG PO ×2 (08:51→23:49)
[2018-03-22] MEDS: Lacosamide 100 MG Tablet 200 MG PO ×2 (09:02→23:45)
[2018-03-22 12:50] VITALS: BMI 18.3
[2018-03-22] MEDS: Acetaminophen 325 MG Tablet 650 MG PO ×2 (12:59→23:44)
[2018-03-22] MEDS: Magnesium Hydroxide 30 ML UDC PO (15:16)
--- NOTE | 2018-03-22 15:33 | NURSING ---
mom given for no bm since 03/19
[2018-03-22 21:40] VITALS: BP 127/66; PULSE 69; RESP 16; TEMP 36.9; O2SAT 95
[2018-03-22] MEDS: QUEtiapine 25 MG Tablet 12.5 MG PO (23:46)
[2018-03-22 23:47] VITALS: BP 127/66; PULSE 69
[2018-03-22] MEDS: MELATONIN 3 MG TABLET PO (23:47)
[2018-03-23] MEDS: Bisacodyl 10 MG Suppository RECTAL (04:05)
[2018-03-23] MEDS: Acetaminophen 325 MG Tablet 650 MG PO ×2 (06:28→22:01)
[2018-03-23] MEDS: Menthol/Lanolin/Calamine/Znox 113 GM Tube 1 APPLIC TOPICAL ×2 (06:29→22:05)
[2018-03-23] MEDS: Baclofen 10 MG Tablet PO ×3 (06:29→22:04)
[2018-03-23] MEDS: Enoxaparin 40 MG/0.4 ML Syringe SC (06:29)
[2018-03-23 08:20] VITALS: BP 120/78; PULSE 64; RESP 16; TEMP 36.9; O2SAT 95
[2018-03-23 08:23] VITALS: PULSE 64
[2018-03-23] MEDS: Aspirin 81 MG TAB.CHEW PO (08:23)
[2018-03-23] MEDS: Loratadine 10 MG Tablet PO (08:23)
[2018-03-23] MEDS: Metoprolol Tartrate 25 MG Tablet PO ×2 (08:23→22:04)
[2018-03-23] MEDS: busPIRone 5 MG Tablet 10 MG PO ×2 (08:23→22:04)
[2018-03-23] MEDS: Lacosamide 100 MG Tablet 200 MG PO ×2 (08:23→22:02)
[2018-03-23] MEDS: Venlafaxine HCl 75 MG Tablet PO ×2 (08:23→22:04)
[2018-03-23] MEDS: levETIRAcetam 1,000 MG Tablet 1000 MG PO ×2 (08:24→22:04)
[2018-03-23] MEDS: Pantoprazole Sodium 40 MG Tablet PO (08:24)
[2018-03-23] MEDS: Senna/Docusate Sodium 1 Tablet PO ×2 (08:24→22:03)
[2018-03-23 15:34] VITALS: BMI 18.3
[2018-03-23 19:36] VITALS: BP 148/81; PULSE 65; RESP 16; TEMP 36.6; O2SAT 98
[2018-03-23] MEDS: QUEtiapine 25 MG Tablet 12.5 MG PO (22:02)
[2018-03-23 22:04] VITALS: BP 148/81; PULSE 65
[2018-03-23] MEDS: MELATONIN 3 MG TABLET PO (22:04)
[2018-03-24] MEDS: Enoxaparin 40 MG/0.4 ML Syringe SC (06:43)
[2018-03-24] MEDS: Baclofen 10 MG Tablet PO ×3 (06:43→20:58)
[2018-03-24] MEDS: Menthol/Lanolin/Calamine/Znox 113 GM Tube 1 APPLIC TOPICAL ×2 (06:43→21:37)
[2018-03-24] MEDS: oxyCODONE 5 MG Tablet PO (06:51)
[2018-03-24 08:18] VITALS: BP 122/79; PULSE 53; RESP 20; TEMP 36.6; O2SAT 97
[2018-03-24] MEDS: Lacosamide 100 MG Tablet 200 MG PO ×2 (08:24→21:02)
[2018-03-24] MEDS: levETIRAcetam 1,000 MG Tablet 1000 MG PO ×2 (08:24→20:58)
[2018-03-24 08:25] VITALS: BP 122/79; PULSE 53
[2018-03-24] MEDS: Aspirin 81 MG TAB.CHEW PO (08:25)
[2018-03-24] MEDS: Metoprolol Tartrate 25 MG Tablet PO ×2 (08:25→20:59)
[2018-03-24] MEDS: Loratadine 10 MG Tablet PO (08:25)
[2018-03-24] MEDS: Venlafaxine HCl 75 MG Tablet PO ×2 (08:25→20:58)
[2018-03-24] MEDS: busPIRone 5 MG Tablet 10 MG PO ×2 (08:25→20:58)
[2018-03-24] MEDS: Senna/Docusate Sodium 1 Tablet PO (08:25)
[2018-03-24] MEDS: Pantoprazole Sodium 40 MG Tablet PO (09:39)
[2018-03-24 11:27] VITALS: BMI 18.3
[2018-03-24] MEDS: Acetaminophen 325 MG Tablet 650 MG PO (11:39)
--- NOTE | 2018-03-24 13:04 | PCM.PN.NEU ---
Subjective: Patient seen and examined. No acute events over night. Tolerating therapy. Denies any headaches, blurry vision, or double vision. No issues with GI/. Tolerating pureed diet with nectar thicken liquids. - Physical Exam General: Alert, Oriented x3, Cooperative HEENT: Atraumatic, PERRLA, EOMI, Normocephalic Neck: Supple, No JVD, Negative Carotid Bruits Lungs: Clear to auscultation, Normal air movement Cardiovascular: Regular rate, No murmurs Abdomen: Bowel Sounds Present, Soft, Non Tender Extremities: No edema, Capillary Refill Less than 3 Seconds Skin: No rashes, No breakdown Musculoskeletal: No Tenderness to Palpation of Joints or Extremities Neurological: Cranial nerves II-XII grossly intact, - - Left side spastic hemiparesis. Psych/Mental Status: Normal Affect, Appropriate Vital Signs Temp Pulse Resp BP Pulse Ox 97.8 F 53 L 20 H 122/79 H 97 03/24/18 08:18 03/24/18 08:25 03/24/18 08:18 03/24/18 08:25 03/24/18 08:18 Oxygen Delivery Method Room Air Weight: 59.5 kg Body Mass Index (BMI) 18.3 Intake and Output for Last 24 Hours 03/22/18 03/23/18 03/24/18 23:59 23:59 23:59 Intake Total 1200 / 1200 440 / 440 60 / 60 Output Total 1635 / 1635 675 / 675 300 / 300 Balance -435 / -435 -235 / -235 -240 / -240 Medical Necessity - Tobacco Use Smoking Status: Former smoker Tobacco Use: Non-smoker Assessment/Plan All Active Problems (This Medical Record has been edited. Action required.) Aortic dissection (Acute) Acute right MCA stroke (Acute) Left hemiplegia (Acute) Acute kidney injury (Acute) Seizure disorder (Acute) Dysphagia (Acute) Vocal cord paralysis (Acute) Dysphagia (Acute) Debility due to pain, complex hospitalization including due to aneurysm of his aorta requiring a decompressive craniotomy, initially recovered but had a large right sided subdural hematoma which has remained stable and has not required further craniotomy or intervention. Now presents back to the rehab unit for rehabilitation so that he can return home. Plan: Physical therapy for gait and balance Occupational Therapy for ADLs Speech therapy for a aphasia and dysphasia As needed analgesics Bowel protocol DVT prophylaxis: Lovenox Seizure prophylaxis with Keppra and Vimpat PEG tube: Await speech therapy recommendations but if he is taking 100% of his p.o. intake we will hold his tube feeds. 03/20: No longer receiving any tube feeds. 03/21: Consider removing PEG tube in a few weeks if it is no longer in use.
[2018-03-24 18:58] VITALS: BP 125/69; PULSE 62; RESP 16; TEMP 36.6; O2SAT 95
[2018-03-24 20:59] VITALS: BP 125/69; PULSE 62
[2018-03-24] MEDS: QUEtiapine 25 MG Tablet 12.5 MG PO (20:59)
[2018-03-24] MEDS: MELATONIN 3 MG TABLET PO (20:59)
[2018-03-24 23:35] VITALS: BMI 18.3
--- NOTE | 2018-03-25 03:00 | NURSING ---
Reviewed and agree with [employer] documentation and FIMs charting
[2018-03-25] MEDS: Enoxaparin 40 MG/0.4 ML Syringe SC (06:23)
[2018-03-25] MEDS: Baclofen 10 MG Tablet PO ×3 (06:23→22:21)
[2018-03-25] MEDS: Menthol/Lanolin/Calamine/Znox 113 GM Tube 1 APPLIC TOPICAL ×2 (06:27→22:20)
[2018-03-25 08:08] VITALS: BP 114/77; PULSE 62; RESP 16; O2SAT 97
[2018-03-25] MEDS: Pantoprazole Sodium 40 MG Tablet PO (08:13)
[2018-03-25] MEDS: Venlafaxine HCl 75 MG Tablet PO ×2 (08:13→22:21)
[2018-03-25] MEDS: busPIRone 5 MG Tablet 10 MG PO ×2 (08:13→22:20)
[2018-03-25] MEDS: Acetaminophen 325 MG Tablet 650 MG PO ×2 (08:13→14:46)
[2018-03-25] MEDS: Aspirin 81 MG TAB.CHEW PO (08:13)
[2018-03-25] MEDS: Loratadine 10 MG Tablet PO (08:13)
[2018-03-25] MEDS: levETIRAcetam 1,000 MG Tablet 1000 MG PO ×2 (08:13→22:21)
[2018-03-25 09:26] VITALS: BP 114/77; PULSE 62
[2018-03-25] MEDS: Lacosamide 100 MG Tablet 200 MG PO ×2 (09:29→22:23)
--- NOTE | 2018-03-25 13:04 | PCM.PN.NEU ---
Subjective: Patient seen and examined. No new complaints, tolerating therapy. Denies any headaches, blurry vision or double vision. - Physical Exam General: Alert, Oriented x3, Cooperative HEENT: Atraumatic, PERRLA, EOMI, Normocephalic Neck: Supple, No JVD, Negative Carotid Bruits Lungs: Clear to auscultation, Normal air movement Cardiovascular: Regular rate, No murmurs Abdomen: Bowel Sounds Present, Soft, Non Tender Extremities: No edema, Capillary Refill Less than 3 Seconds Skin: No rashes, No breakdown Musculoskeletal: No Tenderness to Palpation of Joints or Extremities Neurological: Cranial nerves II-XII grossly intact Psych/Mental Status: Normal Affect, Appropriate, Alert and oriented to time, place, person, mood and affect Vital Signs Temp Pulse Resp BP Pulse Ox 97.9 F 62 16 114/77 97 03/24/18 18:58 03/25/18 09:26 03/25/18 08:08 03/25/18 09:26 03/25/18 08:08 Oxygen Delivery Method Room Air Weight: 59.5 kg Body Mass Index (BMI) 18.3 Intake and Output for Last 24 Hours 03/23/18 03/24/18 03/25/18 23:59 23:59 23:59 Intake Total 440 / 440 240 / 240 240 / 240 Output Total 675 / 675 1000 / 1000 400 / 400 Balance -235 / -235 -760 / -760 -160 / -160 Active Medications Acetaminophen (Tylenol) 650 mg PO Q6H PRN PRN PRN Reason: Mild Pain (0-3/10)/Headache Last Admin: 03/25/18 08:13 Dose: 650 mg Acetylcysteine (Mucomyst) 400 mg INHALATION Q6H.RT PRN PRN Reason: sob/wheezing Albuterol/Ipratropium (Duoneb) 3 ml INHALATION Q4H.RT PRN PRN Reason: SOB &/OR WHEEZING Aspirin (Aspirin, Baby) 81 mg PO DAILY@0800 [facility] Last Admin: 03/25/18 08:13 Dose: 81 mg Baclofen (Lioresal) 10 mg PO TID [facility] Last Admin: 03/25/18 06:23 Dose: 10 mg Bisacodyl (Dulcolax) 10 mg RECTAL .PRN X 1 PRN PRN Reason: Constipation Last Admin: 03/23/18 04:05 Dose: 10 mg Buspirone HCl (Buspar) 10 mg PO BID [facility] Last Admin: 03/25/18 08:13 Dose: 10 mg Calamine/Phenol (Calmoseptine Ointment) 1 applic TOPICAL 0600,2200 [facility] PRN Reason: Protocol Last Admin: 03/25/18 06:27 Dose: 1 applicatio Enoxaparin Sodium (Lovenox) 40 mg SC DAILY@0600 [facility] Last Admin: 03/25/18 06:23 Dose: 40 mg Lacosamide (Vimpat) 200 mg PO BID [facility] Last Admin: 03/25/18 09:29 Dose: 200 mg Levetiracetam (Keppra Tablet) 1,000 mg PO BID [facility] Last Admin: 03/25/18 08:13 Dose: 1,000 mg Loratadine (Claritin) 10 mg PO DAILY [facility] Last Admin: 03/25/18 08:13 Dose: 10 mg Magnesium Hydroxide (Milk Of Magnesia) 30 ml PO .PRN X 1 PRN PRN Reason: Constipation Last Admin: 03/22/18 15:16 Dose: 30 ml Melatonin (Melatonin) 3 mg PO QHS [facility] Last Admin: 03/24/18 20:59 Dose: 3 mg Methocarbamol (Methocarbamol) 750 mg PO TID PRN PRN Reason: MUSCLE SPASM Last Admin: 03/19/18 14:54 Dose: 750 mg Metoprolol Tartrate (Lopressor (Beta Jose Juan)) 25 mg PO BID [facility] Last Admin: 03/25/18 09:26 Dose: Not Given Ondansetron HCl (Zofran Odt) 8 mg PO Q8H PRN PRN PRN Reason: NAUSEA/VOMITING Oxycodone HCl (Oxyir) 5 mg PO Q6H PRN PRN PRN Reason: SEVERE PAIN (6-10/10) Last Admin: 03/24/18 06:51 Dose: 5 mg Pantoprazole Sodium (Protonix) 40 mg PO DAILY [facility] Last Admin: 03/25/18 08:13 Dose: 40 mg Polyethylene Glycol (Miralax) 17 gm PO DAILY PRN PRN Reason: Constipation Last Admin: 03/18/18 20:39 Dose: 17 gm Quetiapine Fumarate (Seroquel) 12.5 mg PO QHS [facility] Last Admin: 03/24/18 20:59 Dose: 12.5 mg Senna/Docusate Sodium (Senokot-S, Daija-Colace) 1 tablet PO BID [facility] Last Admin: 03/25/18 08:14 Dose: Not Given Venlafaxine HCl (Effexor) 75 mg PO BID [facility] Last Admin: 03/25/18 08:13 Dose: 75 mg Medical Necessity - Tobacco Use Smoking Status: Former smoker Tobacco Use: Non-smoker Assessment/Plan All Active Problems (This Medical Record has been edited. Action required.) Aortic dissection (Acute) Acute right MCA stroke (Acute) Left hemiplegia (Acute) Acute kidney injury (Acute) Seizure disorder (Acute) Dysphagia (Acute) Vocal cord paralysis (Acute) Dysphagia (Acute) Debility due to pain, complex hospitalization including due to aneurysm of his aorta requiring a decompressive craniotomy, initially recovered but had a large right sided subdural hematoma which has remained stable and has not required further craniotomy or intervention. Now presents back to the rehab unit for rehabilitation so that he can return home. Plan: Physical therapy for gait and balance Occupational Therapy for ADLs Speech therapy for a aphasia and dysphasia As needed analgesics Bowel protocol DVT prophylaxis: Lovenox Seizure prophylaxis with Keppra and Vimpat PEG tube: Await speech therapy recommendations but if he is taking 100% of his p.o. intake we will hold his tube feeds. 03/20: No longer receiving any tube feeds. 03/21: Consider removing PEG tube in a few weeks if it is no longer in use.
[2018-03-25 14:15] VITALS: BMI 18.3
--- NOTE | 2018-03-25 17:46 | PCM.PN.HOSP ---
Subjective: Patient seen and examined. He has no complaints and feels well. He denies any fever chills, any cough or chest pain, shortness of breath, abdominal pain, any diarrhea vomiting. Patient states he has had quite a good day today. Labs and vitals reviewed. Review of systems otherwise negative. Vitals/I&O's: Vital Signs Temp Pulse Resp BP Pulse Ox 97.9 F 62 16 114/77 97 03/24/18 18:58 03/25/18 09:26 03/25/18 08:08 03/25/18 09:26 03/25/18 08:08 Oxygen Delivery Method Room Air Weight: 131 lb 2.801 oz Body Mass Index (BMI) 18.3 Intake and Output for Last 24 Hours 03/23/18 03/24/18 03/25/18 23:59 23:59 23:59 Intake Total 440 / 440 240 / 240 240 / 240 Output Total 675 / 675 1000 / 1000 400 / 400 Balance -235 / -235 -760 / -760 -160 / -160 General: Alert, Oriented x3, Cooperative HEENT: Atraumatic, PERRLA, EOMI, Normocephalic Oral: Moist Mucosa Neck: Supple, No JVD, Negative Carotid Bruits Lungs: Clear to auscultation, Normal air movement Cardiovascular: Regular rate, Regular Rhythm, Normal S1, Normal S2, No murmurs Abdomen: Bowel Sounds Present, Soft, Non Tender, Non-Distended, - - PEG tube in place Extremities: No clubbing, No cyanosis, No edema, Capillary Refill Less than 3 Seconds Skin: No rashes, No breakdown Musculoskeletal: No Tenderness to Palpation of Joints or Extremities Lymphatic: No Cervical, Supraclavicular, or Inguinal Adenopathy Neurological: Cranial nerves II-XII grossly intact, - - LUE contractures and left hemiplegia Psych/Mental Status: Normal Affect, Alert and oriented to time, place, person, mood and affect Current Medications Acetaminophen (Tylenol) 650 mg PO Q6H PRN PRN PRN Reason: Mild Pain (0-3/10)/Headache Last Admin: 03/25/18 14:46 Dose: 650 mg Acetylcysteine (Mucomyst) 400 mg INHALATION Q6H.RT PRN PRN Reason: sob/wheezing Albuterol/Ipratropium (Duoneb) 3 ml INHALATION Q4H.RT PRN PRN Reason: SOB &/OR WHEEZING Aspirin (Aspirin, Baby) 81 mg PO DAILY@0800 [facility] Last Admin: 03/25/18 08:13 Dose: 81 mg Baclofen (Lioresal) 10 mg PO TID [facility] Last Admin: 03/25/18 14:46 Dose: 10 mg Bisacodyl (Dulcolax) 10 mg RECTAL .PRN X 1 PRN PRN Reason: Constipation Last Admin: 03/23/18 04:05 Dose: 10 mg Buspirone HCl (Buspar) 10 mg PO BID [facility] Last Admin: 03/25/18 08:13 Dose: 10 mg Calamine/Phenol (Calmoseptine Ointment) 1 applic TOPICAL 0600,2200 [facility] PRN Reason: Protocol Last Admin: 03/25/18 06:27 Dose: 1 applicatio Enoxaparin Sodium (Lovenox) 40 mg SC DAILY@0600 [facility] Last Admin: 03/25/18 06:23 Dose: 40 mg Lacosamide (Vimpat) 200 mg PO BID [facility] Last Admin: 03/25/18 09:29 Dose: 200 mg Levetiracetam (Keppra Tablet) 1,000 mg PO BID [facility] Last Admin: 03/25/18 08:13 Dose: 1,000 mg Loratadine (Claritin) 10 mg PO DAILY [facility] Last Admin: 03/25/18 08:13 Dose: 10 mg Magnesium Hydroxide (Milk Of Magnesia) 30 ml PO .PRN X 1 PRN PRN Reason: Constipation Last Admin: 03/22/18 15:16 Dose: 30 ml Melatonin (Melatonin) 3 mg PO QHS [facility] Last Admin: 03/24/18 20:59 Dose: 3 mg Methocarbamol (Methocarbamol) 750 mg PO TID PRN PRN Reason: MUSCLE SPASM Last Admin: 03/19/18 14:54 Dose: 750 mg Metoprolol Tartrate (Lopressor (Beta Jose Juan)) 25 mg PO BID [facility] Last Admin: 03/25/18 09:26 Dose: Not Given Ondansetron HCl (Zofran Odt) 8 mg PO Q8H PRN PRN PRN Reason: NAUSEA/VOMITING Oxycodone HCl (Oxyir) 5 mg PO Q6H PRN PRN PRN Reason: SEVERE PAIN (6-10/10) Last Admin: 03/24/18 06:51 Dose: 5 mg Pantoprazole Sodium (Protonix) 40 mg PO DAILY [facility] Last Admin: 03/25/18 08:13 Dose: 40 mg Polyethylene Glycol (Miralax) 17 gm PO DAILY PRN PRN Reason: Constipation Last Admin: 03/18/18 20:39 Dose: 17 gm Quetiapine Fumarate (Seroquel) 12.5 mg PO QHS [facility] Last Admin: 03/24/18 20:59 Dose: 12.5 mg Senna/Docusate Sodium (Senokot-S, Daija-Colace) 1 tablet PO BID [facility] Last Admin: 03/25/18 08:14 Dose: Not Given Venlafaxine HCl (Effexor) 75 mg PO BID [facility] Last Admin: 03/25/18 08:13 Dose: 75 mg Medical Necessity - Tobacco Use Smoking Status: Former smoker Tobacco Use: Non-smoker Assessment/Plan All Active Problems (This Medical Record has been edited. Action required.) Aortic dissection (Acute) Acute right MCA stroke (Acute) Left hemiplegia (Acute) Acute kidney injury (Acute) Seizure disorder (Acute) Dysphagia (Acute) Vocal cord paralysis (Acute) Dysphagia (Acute) 1. Physical debility due to right MCA stroke s/p decompressive craniectomy Had aortic dissection and status was post repair. Postop course, gated by acute right MCA stroke and status post craniectomy. Has residual left-sided spastic hemiparesis. Also has vocal cord paralysis and respiratory failure and dysphagia requiring PEG tube placement on aspirin PT/OT on board 2. Acute right MCA stroke s/p decompressive craniectomy 3. Aortic dissection status post repair: Stable 4. Seizure Disorder: Stable. On Keppra. 5. Vocal cord paralysis: Speech therapy on board. Management as per ENT. 6. Hypertension: controlled. On metoprolol 7. Dysphagia: s/p PEG tube placement. also able to take PO food. 8. Depression. On effexor and seroquel 9. DVT prophylaxis: lovenox This note was generated with [employer] software. It may contain incorrect words, spelling, and punctuation that were not noted in checking the note before signing. Code Visit Inpatient E&M: 46526 Subs Hosp L2
[2018-03-25 22:00] VITALS: BP 151/97; PULSE 63; RESP 18; TEMP 36.6; O2SAT 94
[2018-03-25 22:22] VITALS: BP 151/97; PULSE 63
[2018-03-25] MEDS: Senna/Docusate Sodium 1 Tablet PO (22:22)
[2018-03-25] MEDS: Metoprolol Tartrate 25 MG Tablet PO (22:22)
[2018-03-25] MEDS: MELATONIN 3 MG TABLET PO (22:22)
[2018-03-25] MEDS: oxyCODONE 5 MG Tablet PO (22:23)
[2018-03-25] MEDS: QUEtiapine 25 MG Tablet 12.5 MG PO (22:23)
[2018-03-26 00:18] VITALS: BMI 18.3
[2018-03-26] MEDS: Enoxaparin 40 MG/0.4 ML Syringe SC (06:17)
[2018-03-26] MEDS: Baclofen 10 MG Tablet PO ×3 (06:17→22:50)
[2018-03-26] MEDS: Menthol/Lanolin/Calamine/Znox 113 GM Tube 1 APPLIC TOPICAL ×2 (06:20→22:51)
[2018-03-26 08:10] VITALS: BP 118/74; PULSE 57
[2018-03-26] MEDS: Venlafaxine HCl 75 MG Tablet PO ×2 (08:16→22:50)
[2018-03-26] MEDS: busPIRone 5 MG Tablet 10 MG PO ×2 (08:16→22:51)
[2018-03-26] MEDS: levETIRAcetam 1,000 MG Tablet 1000 MG PO ×2 (08:16→22:50)
[2018-03-26] MEDS: Senna/Docusate Sodium 1 Tablet PO ×2 (08:16→22:47)
[2018-03-26] MEDS: Aspirin 81 MG TAB.CHEW PO (08:16)
[2018-03-26] MEDS: Pantoprazole Sodium 40 MG Tablet PO (08:16)
[2018-03-26] MEDS: Loratadine 10 MG Tablet PO (08:16)
[2018-03-26 08:42] VITALS: BP 118/74; PULSE 57; RESP 18; TEMP 36.6; O2SAT 94
[2018-03-26] MEDS: Lacosamide 100 MG Tablet 200 MG PO ×2 (09:08→22:46)
[2018-03-26] MEDS: oxyCODONE 5 MG Tablet PO (09:42)
--- NOTE | 2018-03-26 11:01 | PCM.PN.NEU ---
Subjective: Patient lying quietly in bed resting. He is having some right hip pain and discomfort, will start a Lidocaine patch to area, otherwise he is doing well, tolerating therapy. - Physical Exam General: Alert, Oriented x3, Cooperative HEENT: Atraumatic, PERRLA, EOMI, Normocephalic Neck: Supple, No JVD, Negative Carotid Bruits Lungs: Clear to auscultation, Normal air movement Cardiovascular: Regular rate, No murmurs Abdomen: Bowel Sounds Present, Soft, Non Tender Extremities: No edema, Capillary Refill Less than 3 Seconds Skin: No rashes, No breakdown Musculoskeletal: No Tenderness to Palpation of Joints or Extremities Neurological: Cranial nerves II-XII grossly intact Psych/Mental Status: Normal Affect, Appropriate, Alert and oriented to time, place, person, mood and affect Vital Signs Temp Pulse Resp BP Pulse Ox 97.8 F 57 L 18 118/74 94 03/26/18 08:42 03/26/18 08:42 03/26/18 08:42 03/26/18 08:42 03/26/18 08:42 Oxygen Delivery Method Room Air Weight: 57.3 kg Body Mass Index (BMI) 18.3 Intake and Output for Last 24 Hours 03/24/18 03/25/18 03/26/18 23:59 23:59 23:59 Intake Total 300 / 300 420 / 420 120 / 120 Output Total 1000 / 1000 575 / 575 375 / 375 Balance -700 / -700 -155 / -155 -255 / -255 Active Medications Acetaminophen (Tylenol) 650 mg PO Q6H PRN PRN PRN Reason: Mild Pain (0-3/10)/Headache Last Admin: 03/25/18 14:46 Dose: 650 mg Acetylcysteine (Mucomyst) 400 mg INHALATION Q6H.RT PRN PRN Reason: sob/wheezing Albuterol/Ipratropium (Duoneb) 3 ml INHALATION Q4H.RT PRN PRN Reason: SOB &/OR WHEEZING Aspirin (Aspirin, Baby) 81 mg PO DAILY@0800 [facility] Last Admin: 03/26/18 08:16 Dose: 81 mg Baclofen (Lioresal) 10 mg PO TID [facility] Last Admin: 03/26/18 06:17 Dose: 10 mg Bisacodyl (Dulcolax) 10 mg RECTAL .PRN X 1 PRN PRN Reason: Constipation Last Admin: 03/23/18 04:05 Dose: 10 mg Buspirone HCl (Buspar) 10 mg PO BID [facility] Last Admin: 03/26/18 08:16 Dose: 10 mg Calamine/Phenol (Calmoseptine Ointment) 1 applic TOPICAL 0600,2200 [facility] PRN Reason: Protocol Last Admin: 03/26/18 06:20 Dose: 1 applicatio Enoxaparin Sodium (Lovenox) 40 mg SC DAILY@0600 [facility] Last Admin: 03/26/18 06:17 Dose: 40 mg Lacosamide (Vimpat) 200 mg PO BID [facility] Last Admin: 03/26/18 09:08 Dose: 200 mg Levetiracetam (Keppra Tablet) 1,000 mg PO BID [facility] Last Admin: 03/26/18 08:16 Dose: 1,000 mg Lidocaine (Lidoderm Patch) 1 patch TOPICAL DAILY [facility] PRN Reason: Protocol Loratadine (Claritin) 10 mg PO DAILY [facility] Last Admin: 03/26/18 08:16 Dose: 10 mg Magnesium Hydroxide (Milk Of Magnesia) 30 ml PO .PRN X 1 PRN PRN Reason: Constipation Last Admin: 03/22/18 15:16 Dose: 30 ml Melatonin (Melatonin) 3 mg PO QHS [facility] Last Admin: 03/25/18 22:22 Dose: 3 mg Methocarbamol (Methocarbamol) 750 mg PO TID PRN PRN Reason: MUSCLE SPASM Last Admin: 03/19/18 14:54 Dose: 750 mg Metoprolol Tartrate (Lopressor (Beta Jose Juan)) 25 mg PO BID [facility] Last Admin: 03/26/18 08:10 Dose: Not Given Ondansetron HCl (Zofran Odt) 8 mg PO Q8H PRN PRN PRN Reason: NAUSEA/VOMITING Oxycodone HCl (Oxyir) 5 mg PO Q6H PRN PRN PRN Reason: SEVERE PAIN (6-10/10) Last Admin: 03/26/18 09:42 Dose: 5 mg Pantoprazole Sodium (Protonix) 40 mg PO DAILY [facility] Last Admin: 03/26/18 08:16 Dose: 40 mg Polyethylene Glycol (Miralax) 17 gm PO DAILY PRN PRN Reason: Constipation Last Admin: 03/18/18 20:39 Dose: 17 gm Quetiapine Fumarate (Seroquel) 12.5 mg PO QHS [facility] Last Admin: 03/25/18 22:23 Dose: 12.5 mg Senna/Docusate Sodium (Senokot-S, Daija-Colace) 1 tablet PO BID [facility] Last Admin: 03/26/18 08:16 Dose: 1 tablet Venlafaxine HCl (Effexor) 75 mg PO BID [facility] Last Admin: 03/26/18 08:16 Dose: 75 mg Medical Necessity - Tobacco Use Smoking Status: Former smoker Tobacco Use: Non-smoker Assessment/Plan All Active Problems (This Medical Record has been edited. Action required.) Aortic dissection (Acute) Acute right MCA stroke (Acute) Left hemiplegia (Acute) Acute kidney injury (Acute) Seizure disorder (Acute) Dysphagia (Acute) Vocal cord paralysis (Acute) Dysphagia (Acute) Debility due to pain, complex hospitalization including due to aneurysm of his aorta requiring a decompressive craniotomy, initially recovered but had a large right sided subdural hematoma which has remained stable and has not required further craniotomy or intervention. Now presents back to the rehab unit for rehabilitation so that he can return home. Plan: Physical therapy for gait and balance Occupational Therapy for ADLs Speech therapy for a aphasia and dysphasia As needed analgesics Bowel protocol DVT prophylaxis: Lovenox Seizure prophylaxis with Keppra and Vimpat PEG tube: Await speech therapy recommendations but if he is taking 100% of his p.o. intake we will hold his tube feeds. 03/20: No longer receiving any tube feeds. 03/21: Consider removing PEG tube in a few weeks if it is no longer in use.
--- NOTE | 2018-03-26 11:14 | PN.NEURO_ITS ---
Subjective: Patient lying quietly in bed resting. He is having some right hip pain and discomfort, will start a Lidocaine patch to area, otherwise he is doing well, tolerating therapy. - Physical Exam General: Alert, Oriented x3, Cooperative HEENT: Atraumatic, PERRLA, EOMI, Normocephalic Neck: Supple, No JVD, Negative Carotid Bruits Lungs: Clear to auscultation, Normal air movement Cardiovascular: Regular rate, No murmurs Abdomen: Bowel Sounds Present, Soft, Non Tender Extremities: No edema, Capillary Refill Less than 3 Seconds Skin: No rashes, No breakdown Musculoskeletal: No Tenderness to Palpation of Joints or Extremities Neurological: Cranial nerves II-XII grossly intact Psych/Mental Status: Normal Affect, Appropriate, Alert and oriented to time, place, person, mood and affect Vital Signs Temp Pulse Resp BP Pulse Ox 97.8 F 57 L 18 118/74 94 03/26/18 08:42 03/26/18 08:42 03/26/18 08:42 03/26/18 08:42 03/26/18 08:42 Oxygen Delivery Method Room Air Weight: 57.3 kg Body Mass Index (BMI) 18.3 Intake and Output for Last 24 Hours 03/24/18 03/25/18 03/26/18 23:59 23:59 23:59 Intake Total 300 / 300 420 / 420 120 / 120 Output Total 1000 / 1000 575 / 575 375 / 375 Balance -700 / -700 -155 / -155 -255 / -255 Active Medications Acetaminophen (Tylenol) 650 mg PO Q6H PRN PRN PRN Reason: Mild Pain (0-3/10)/Headache Last Admin: 03/25/18 14:46 Dose: 650 mg Acetylcysteine (Mucomyst) 400 mg INHALATION Q6H.RT PRN PRN Reason: sob/wheezing Albuterol/Ipratropium (Duoneb) 3 ml INHALATION Q4H.RT PRN PRN Reason: SOB &/OR WHEEZING Aspirin (Aspirin, Baby) 81 mg PO DAILY@0800 [facility] Last Admin: 03/26/18 08:16 Dose: 81 mg Baclofen (Lioresal) 10 mg PO TID [facility] Last Admin: 03/26/18 06:17 Dose: 10 mg Bisacodyl (Dulcolax) 10 mg RECTAL .PRN X 1 PRN PRN Reason: Constipation Last Admin: 03/23/18 04:05 Dose: 10 mg Buspirone HCl (Buspar) 10 mg PO BID [facility] Last Admin: 03/26/18 08:16 Dose: 10 mg Calamine/Phenol (Calmoseptine Ointment) 1 applic TOPICAL 0600,2200 [facility] PRN Reason: Protocol Last Admin: 03/26/18 06:20 Dose: 1 applicatio Enoxaparin Sodium (Lovenox) 40 mg SC DAILY@0600 [facility] Last Admin: 03/26/18 06:17 Dose: 40 mg Lacosamide (Vimpat) 200 mg PO BID [facility] Last Admin: 03/26/18 09:08 Dose: 200 mg Levetiracetam (Keppra Tablet) 1,000 mg PO BID [facility] Last Admin: 03/26/18 08:16 Dose: 1,000 mg Lidocaine (Lidoderm Patch) 1 patch TOPICAL DAILY [facility] PRN Reason: Protocol Loratadine (Claritin) 10 mg PO DAILY [facility] Last Admin: 03/26/18 08:16 Dose: 10 mg Magnesium Hydroxide (Milk Of Magnesia) 30 ml PO .PRN X 1 PRN PRN Reason: Constipation Last Admin: 03/22/18 15:16 Dose: 30 ml Melatonin (Melatonin) 3 mg PO QHS [facility] Last Admin: 03/25/18 22:22 Dose: 3 mg Methocarbamol (Methocarbamol) 750 mg PO TID PRN PRN Reason: MUSCLE SPASM Last Admin: 03/19/18 14:54 Dose: 750 mg Metoprolol Tartrate (Lopressor (Beta Jose Juan)) 25 mg PO BID [facility] Last Admin: 03/26/18 08:10 Dose: Not Given Ondansetron HCl (Zofran Odt) 8 mg PO Q8H PRN PRN PRN Reason: NAUSEA/VOMITING Oxycodone HCl (Oxyir) 5 mg PO Q6H PRN PRN PRN Reason: SEVERE PAIN (6-10/10) Last Admin: 03/26/18 09:42 Dose: 5 mg Pantoprazole Sodium (Protonix) 40 mg PO DAILY [facility] Last Admin: 03/26/18 08:16 Dose: 40 mg Polyethylene Glycol (Miralax) 17 gm PO DAILY PRN PRN Reason: Constipation Last Admin: 03/18/18 20:39 Dose: 17 gm Quetiapine Fumarate (Seroquel) 12.5 mg PO QHS [facility] Last Admin: 03/25/18 22:23 Dose: 12.5 mg Senna/Docusate Sodium (Senokot-S, Daija-Colace) 1 tablet PO BID [facility] Last Admin: 03/26/18 08:16 Dose: 1 tablet Venlafaxine HCl (Effexor) 75 mg PO BID [facility] Last Admin: 03/26/18 08:16 Dose: 75 mg Medical Necessity - Tobacco Use Smoking Status: Former smoker Tobacco Use: Non-smoker Assessment/Plan All Active Problems (This Medical Record has been edited. Action required.) Aortic dissection (Acute) Acute right MCA stroke (Acute) Left hemiplegia (Acute) Acute kidney injury (Acute) Seizure disorder (Acute) Dysphagia (Acute) Vocal cord paralysis (Acute) Dysphagia (Acute) Debility due to pain, complex hospitalization including due to aneurysm of his aorta requiring a decompressive craniotomy, initially recovered but had a large right sided subdural hematoma which has remained stable and has not required further craniotomy or intervention. Now presents back to the rehab unit for rehabilitation so that he can return home. Plan: Physical therapy for gait and balance Occupational Therapy for ADLs Speech therapy for a aphasia and dysphasia As needed analgesics Bowel protocol DVT prophylaxis: Lovenox Seizure prophylaxis with Keppra and Vimpat PEG tube: Await speech therapy recommendations but if he is taking 100% of his p.o. intake we will hold his tube feeds. 03/20: No longer receiving any tube feeds. 03/21: Consider removing PEG tube in a few weeks if it is no longer in use.
[2018-03-26] MEDS: Lidocaine 5% Patch 1 PATCH TOPICAL (14:13)
[2018-03-26 15:41] VITALS: BMI 18.3
[2018-03-26 19:50] VITALS: BP 132/73; PULSE 73; RESP 17; TEMP 36.9; O2SAT 93
[2018-03-26] MEDS: Acetaminophen 325 MG Tablet 650 MG PO (22:45)
[2018-03-26] MEDS: QUEtiapine 25 MG Tablet 12.5 MG PO (22:47)
[2018-03-26 22:50] VITALS: BP 132/73; PULSE 73
[2018-03-26] MEDS: Metoprolol Tartrate 25 MG Tablet PO (22:50)
[2018-03-26] MEDS: MELATONIN 3 MG TABLET PO (22:50)
[2018-03-27] MEDS: Magnesium Hydroxide 30 ML UDC PO (03:58)
[2018-03-27 05:00] VITALS: BMI 18.3
[2018-03-27] MEDS: Enoxaparin 40 MG/0.4 ML Syringe SC (06:07)
[2018-03-27] MEDS: Menthol/Lanolin/Calamine/Znox 113 GM Tube 1 APPLIC TOPICAL ×2 (06:08→22:41)
[2018-03-27] MEDS: Baclofen 10 MG Tablet PO ×3 (06:08→21:32)
[2018-03-27] MEDS: Acetaminophen 325 MG Tablet 650 MG PO (06:16)
[2018-03-27 07:58] VITALS: BP 129/84; PULSE 51; RESP 16; TEMP 36.8; O2SAT 95
[2018-03-27] MEDS: oxyCODONE 5 MG Tablet PO ×2 (08:11→21:34)
[2018-03-27] MEDS: Loratadine 10 MG Tablet PO (08:12)
[2018-03-27] MEDS: Aspirin 81 MG TAB.CHEW PO (08:12)
[2018-03-27] MEDS: Venlafaxine HCl 75 MG Tablet PO ×2 (08:12→21:32)
[2018-03-27] MEDS: busPIRone 5 MG Tablet 10 MG PO ×2 (08:12→21:32)
[2018-03-27 08:13] VITALS: PULSE 67
[2018-03-27] MEDS: Metoprolol Tartrate 25 MG Tablet PO (08:13)
[2018-03-27] MEDS: Pantoprazole Sodium 40 MG Tablet PO (08:14)
[2018-03-27] MEDS: Senna/Docusate Sodium 1 Tablet PO ×2 (08:14→21:33)
[2018-03-27] MEDS: levETIRAcetam 1,000 MG Tablet 1000 MG PO ×2 (08:14→21:32)
[2018-03-27] MEDS: Lacosamide 100 MG Tablet 200 MG PO ×2 (08:35→21:33)
[2018-03-27] MEDS: Lidocaine 5% Patch 1 PATCH TOPICAL (08:36)
--- NOTE | 2018-03-27 08:52 | PCM.PN.NEU ---
Subjective: Staffed in team meeting. Family at bedside, questions answered. With Physical therapy, he has walked along the wall rail twice, twenty feet each time without a wheel chair following him, at max assist for balance and to assist with advancing his leg. He is minimal assist for getting in and out of the bed. He is moderate assist for standing and pivoting. With Occupational therapy, he is minimal assist for bathing his upper body, and grooming. He is moderate assist for lower body bathing, and for doing his modified toileting. He is total assist for dressing, and toileting. With Speech therapy he has been upgraded to Mechanical soft diet, he is now on the Lopez water protocol and doing very well. His vision attention to his left side is improving, he still requires cues to look to his left. With nursing, he is doing well Bp is stable, lungs remain clear. He has a followup appointment on April 03 with his Neurosurgeon. will re-team him again on April 03 after his appointment. - Physical Exam General: Alert, Oriented x3, Cooperative HEENT: Atraumatic, PERRLA, EOMI, Normocephalic Neck: Supple, No JVD, Negative Carotid Bruits Lungs: Clear to auscultation, Normal air movement Cardiovascular: Regular rate, No murmurs Abdomen: Bowel Sounds Present, Soft, Non Tender Extremities: No edema, Capillary Refill Less than 3 Seconds Skin: No rashes, No breakdown Musculoskeletal: No Tenderness to Palpation of Joints or Extremities Neurological: Cranial nerves II-XII grossly intact Psych/Mental Status: Normal Affect, Appropriate Vital Signs Temp Pulse Resp BP Pulse Ox 98.2 F 67 16 129/84 H 95 03/27/18 07:58 03/27/18 08:13 03/27/18 07:58 03/27/18 07:58 03/27/18 07:58 Oxygen Delivery Method Room Air Weight: 57.3 kg Body Mass Index (BMI) 18.3 Intake and Output for Last 24 Hours 03/25/18 03/26/18 03/27/18 23:59 23:59 23:59 Intake Total 420 / 420 920 / 920 Output Total 575 / 575 1125 / 1125 200 / 200 Balance -155 / -155 -205 / -205 -200 / -200 Medical Necessity - Tobacco Use Smoking Status: Former smoker Tobacco Use: Non-smoker Assessment/Plan All Active Problems (This Medical Record has been edited. Action required.) Aortic dissection (Acute) Acute right MCA stroke (Acute) Left hemiplegia (Acute) Acute kidney injury (Acute) Seizure disorder (Acute) Dysphagia (Acute) Vocal cord paralysis (Acute) Dysphagia (Acute) Debility due to pain, complex hospitalization including due to aneurysm of his aorta requiring a decompressive craniotomy, initially recovered but had a large right sided subdural hematoma which has remained stable and has not required further craniotomy or intervention. Now presents back to the rehab unit for rehabilitation so that he can return home. Plan: Physical therapy for gait and balance Occupational Therapy for ADLs Speech therapy for a aphasia and dysphasia As needed analgesics Bowel protocol DVT prophylaxis: Lovenox Seizure prophylaxis with Keppra and Vimpat PEG tube: Await speech therapy recommendations but if he is taking 100% of his p.o. intake we will hold his tube feeds. 03/20: No longer receiving any tube feeds. 03/21: Consider removing PEG tube in a few weeks if it is no longer in use.
--- NOTE | 2018-03-27 12:49 | CASEMGMT ---
Team meeting held. Patient present as well as patient family. No discharge date set at this time. Patient to discharge to home with family at time of discharge. Patient and patient family aware of patient current needs and level of assistance. Team recommending for patient to continue with further services and care on the Inpatient Rehab Unit at this time. Patient with an insurance update due on 03/28/18. Patient family aware that continued stay approval is not guaranteed at this time. Support given. Will continue to follow. Guillermina PANTOJA, [employer] M[employer] WORKER
[2018-03-27] MEDS: Bisacodyl 10 MG Suppository RECTAL (14:47)
[2018-03-27 16:45] VITALS: BMI 18.3
[2018-03-27 21:33] VITALS: BP 117/69; PULSE 73
[2018-03-27] MEDS: QUEtiapine 25 MG Tablet 12.5 MG PO (21:33)
[2018-03-27] MEDS: MELATONIN 3 MG TABLET PO (21:33)
[2018-03-27] MEDS: Polyethylene Glycol 3350 17 GM PACKET PO (21:34)
[2018-03-27 22:00] VITALS: BP 117/69; PULSE 73; RESP 18; TEMP 36.9; O2SAT 94
[2018-03-27 22:52] VITALS: BMI 18.3
[2018-03-28] MEDS: Acetaminophen 325 MG Tablet 650 MG PO (02:40)
[2018-03-28] MEDS: Enoxaparin 40 MG/0.4 ML Syringe SC (06:14)
[2018-03-28] MEDS: Baclofen 10 MG Tablet PO ×3 (06:14→21:49)
[2018-03-28] MEDS: Menthol/Lanolin/Calamine/Znox 113 GM Tube 1 APPLIC TOPICAL ×2 (06:17→21:50)
--- NOTE | 2018-03-28 06:58 | NURSING ---
Reviewed and agree with LPNs fims and handoff
[2018-03-28 08:23] VITALS: BP 131/79; PULSE 62; RESP 18; TEMP 36.6; O2SAT 96
[2018-03-28 08:39] VITALS: BP 131/79; PULSE 62
[2018-03-28] MEDS: Metoprolol Tartrate 25 MG Tablet PO (08:39)
[2018-03-28] MEDS: levETIRAcetam 1,000 MG Tablet 1000 MG PO ×2 (08:40→21:49)
[2018-03-28] MEDS: busPIRone 5 MG Tablet 10 MG PO ×2 (08:40→21:48)
[2018-03-28] MEDS: Lidocaine 5% Patch 1 PATCH TOPICAL (08:40)
[2018-03-28] MEDS: Loratadine 10 MG Tablet PO (08:40)
[2018-03-28] MEDS: Aspirin 81 MG TAB.CHEW PO (08:40)
[2018-03-28] MEDS: Lacosamide 100 MG Tablet 200 MG PO ×2 (08:40→21:49)
[2018-03-28] MEDS: Venlafaxine HCl 75 MG Tablet PO ×2 (08:40→21:49)
[2018-03-28] MEDS: Senna/Docusate Sodium 1 Tablet PO ×2 (08:40→21:45)
[2018-03-28] MEDS: Pantoprazole Sodium 40 MG Tablet PO (08:40)
[2018-03-28] MEDS: oxyCODONE 5 MG Tablet PO ×2 (10:16→17:35)
--- NOTE | 2018-03-28 11:54 | PCM.PN.NEU ---
Subjective: Patient seen and examined. No acute events over night. Tolerating therapy. Denies any headaches, blurry vision, or double vision. Still has some constipation, was able to have a small bowel movement yesterday. Will continue with the Miralax daily, and Senna BID, with a suppository if needed. No issues with . - Physical Exam General: Alert, Oriented x3, Cooperative HEENT: Atraumatic, PERRLA, EOMI, Normocephalic Neck: Supple, No JVD, Negative Carotid Bruits Lungs: Clear to auscultation, Normal air movement Cardiovascular: Regular rate, No murmurs Abdomen: Bowel Sounds Present, Soft, Non Tender Extremities: No edema, Capillary Refill Less than 3 Seconds Skin: No rashes, No breakdown Musculoskeletal: No Tenderness to Palpation of Joints or Extremities Neurological: Cranial nerves II-XII grossly intact Psych/Mental Status: Normal Affect, Appropriate, Alert and oriented to time, place, person, mood and affect Vital Signs Temp Pulse Resp BP Pulse Ox 97.9 F 62 18 131/79 H 96 03/28/18 08:23 03/28/18 08:39 03/28/18 08:23 03/28/18 08:39 03/28/18 08:23 Oxygen Delivery Method Room Air Weight: 59.7 kg Body Mass Index (BMI) 18.3 Intake and Output for Last 24 Hours 03/26/18 03/27/18 03/28/18 23:59 23:59 23:59 Intake Total 980 / 980 540 / 540 180 / 180 Output Total 1125 / 1125 750 / 750 Balance -145 / -145 -210 / -210 180 / 180 Active Medications Acetaminophen (Tylenol) 650 mg PO Q6H PRN PRN PRN Reason: Mild Pain (0-3/10)/Headache Last Admin: 03/28/18 02:40 Dose: 650 mg Acetylcysteine (Mucomyst) 400 mg INHALATION Q6H.RT PRN PRN Reason: sob/wheezing Albuterol/Ipratropium (Duoneb) 3 ml INHALATION Q4H.RT PRN PRN Reason: SOB &/OR WHEEZING Aspirin (Aspirin, Baby) 81 mg PO DAILY@0800 [facility] Last Admin: 03/28/18 08:40 Dose: 81 mg Baclofen (Lioresal) 10 mg PO TID [facility] Last Admin: 03/28/18 06:14 Dose: 10 mg Bisacodyl (Dulcolax) 10 mg RECTAL .PRN X 1 PRN PRN Reason: Constipation Last Admin: 03/27/18 14:47 Dose: 10 mg Buspirone HCl (Buspar) 10 mg PO BID [facility] Last Admin: 03/28/18 08:40 Dose: 10 mg Calamine/Phenol (Calmoseptine Ointment) 1 applic TOPICAL 0600,2200 [facility] PRN Reason: Protocol Last Admin: 03/28/18 06:17 Dose: 1 applicatio Enoxaparin Sodium (Lovenox) 40 mg SC DAILY@0600 [facility] Last Admin: 03/28/18 06:14 Dose: 40 mg Lacosamide (Vimpat) 200 mg PO BID [facility] Last Admin: 03/28/18 08:40 Dose: 200 mg Levetiracetam (Keppra Tablet) 1,000 mg PO BID [facility] Last Admin: 03/28/18 08:40 Dose: 1,000 mg Lidocaine (Lidoderm Patch) 1 patch TOPICAL DAILY [facility] PRN Reason: Protocol Last Admin: 03/28/18 08:40 Dose: 1 patch Loratadine (Claritin) 10 mg PO DAILY [facility] Last Admin: 03/28/18 08:40 Dose: 10 mg Magnesium Hydroxide (Milk Of Magnesia) 30 ml PO .PRN X 1 PRN PRN Reason: Constipation Last Admin: 03/27/18 03:58 Dose: 30 ml Melatonin (Melatonin) 3 mg PO QHS [facility] Last Admin: 03/27/18 21:33 Dose: 3 mg Methocarbamol (Methocarbamol) 750 mg PO TID PRN PRN Reason: MUSCLE SPASM Last Admin: 03/19/18 14:54 Dose: 750 mg Metoprolol Tartrate (Lopressor (Beta Jose Juan)) 25 mg PO BID [facility] Last Admin: 03/28/18 08:39 Dose: 25 mg Ondansetron HCl (Zofran Odt) 8 mg PO Q8H PRN PRN PRN Reason: NAUSEA/VOMITING Oxycodone HCl (Oxyir) 5 mg PO Q6H PRN PRN PRN Reason: SEVERE PAIN (6-10/10) Last Admin: 03/28/18 10:16 Dose: 5 mg Pantoprazole Sodium (Protonix) 40 mg PO DAILY [facility] Last Admin: 03/28/18 08:40 Dose: 40 mg Polyethylene Glycol (Miralax) 17 gm PO DAILY PRN PRN Reason: Constipation Last Admin: 03/27/18 21:34 Dose: 17 gm Quetiapine Fumarate (Seroquel) 12.5 mg PO QHS [facility] Last Admin: 03/27/18 21:33 Dose: 12.5 mg Senna/Docusate Sodium (Senokot-S, Daija-Colace) 1 tablet PO BID [facility] Last Admin: 03/28/18 08:40 Dose: 1 tablet Venlafaxine HCl (Effexor) 75 mg PO BID [facility] Last Admin: 03/28/18 08:40 Dose: 75 mg Medical Necessity - Tobacco Use Smoking Status: Former smoker Tobacco Use: Non-smoker Assessment/Plan All Active Problems (This Medical Record has been edited. Action required.) Aortic dissection (Acute) Acute right MCA stroke (Acute) Left hemiplegia (Acute) Acute kidney injury (Acute) Seizure disorder (Acute) Dysphagia (Acute) Vocal cord paralysis (Acute) Dysphagia (Acute) Debility due to pain, complex hospitalization including due to aneurysm of his aorta requiring a decompressive craniotomy, initially recovered but had a large right sided subdural hematoma which has remained stable and has not required further craniotomy or intervention. Now presents back to the rehab unit for rehabilitation so that he can return home. Plan: Physical therapy for gait and balance Occupational Therapy for ADLs Speech therapy for a aphasia and dysphasia As needed analgesics Bowel protocol DVT prophylaxis: Lovenox Seizure prophylaxis with Keppra and Vimpat PEG tube: Await speech therapy recommendations but if he is taking 100% of his p.o. intake we will hold his tube feeds. 03/20: No longer receiving any tube feeds. 03/21: Consider removing PEG tube in a few weeks if it is no longer in use.
--- NOTE | 2018-03-28 15:18 | CASEMGMT ---
Insurance Clinical updates sent via secure email. Will await continued stay determination. Auth # [id number] SCARLETT Sebastian
--- NOTE | 2018-03-28 16:06 | PCM.PN.HOSP ---
Subjective: Patient seen and examined. He complained of constipation and so he was only able to have a small bowel movement since yesterday. He also complains of spasms in the left lower extremity and sees he is due to have a baclofen pump installed to help with that. He denies any fever or chills, cough or chest pain, shortness of breath, abdominal pain, diarrhea or vomiting. 12 point review of systems is otherwise negative. Labs and vitals reviewed. Vitals/I&O's: Vital Signs Temp Pulse Resp BP Pulse Ox 97.9 F 62 18 131/79 H 96 03/28/18 08:23 03/28/18 08:39 03/28/18 08:23 03/28/18 08:39 03/28/18 08:23 Oxygen Delivery Method Room Air Weight: 131 lb 9.855 oz Body Mass Index (BMI) 18.3 Intake and Output for Last 24 Hours 03/26/18 03/27/18 03/28/18 23:59 23:59 23:59 Intake Total 980 / 980 540 / 540 240 / 240 Output Total 1125 / 1125 750 / 750 120 / 120 Balance -145 / -145 -210 / -210 120 / 120 General: Alert, Oriented x3, Cooperative HEENT: Atraumatic, PERRLA, EOMI, Normocephalic Oral: Moist Mucosa Neck: Supple, No JVD, Negative Carotid Bruits Lungs: Clear to auscultation, Normal air movement Cardiovascular: Regular rate, Regular Rhythm, Normal S1, Normal S2, No murmurs Abdomen: Bowel Sounds Present, Soft, Non Tender, Non-Distended, No Hepato-splenomegaly, - - PEG tube in place Extremities: No clubbing, No cyanosis, No edema, Capillary Refill Less than 3 Seconds Skin: No rashes, No breakdown, - - craniotomy scar Musculoskeletal: - - spasms of left thigh during review. Left hemiparesis Neurological: Cranial nerves II-XII grossly intact, - - left sided hemiparesis. Craniotomy scar Psych/Mental Status: Normal Affect, Alert and oriented to time, place, person, mood and affect Current Medications Acetaminophen (Tylenol) 650 mg PO Q6H PRN PRN PRN Reason: Mild Pain (0-3/10)/Headache Last Admin: 03/28/18 02:40 Dose: 650 mg Acetylcysteine (Mucomyst) 400 mg INHALATION Q6H.RT PRN PRN Reason: sob/wheezing Albuterol/Ipratropium (Duoneb) 3 ml INHALATION Q4H.RT PRN PRN Reason: SOB &/OR WHEEZING Aspirin (Aspirin, Baby) 81 mg PO DAILY@0800 [facility] Last Admin: 03/28/18 08:40 Dose: 81 mg Baclofen (Lioresal) [address] [facility] Last Admin: 03/28/18 14:02 Dose: 10 mg Bisacodyl (Dulcolax) 10 mg RECTAL .PRN X 1 PRN PRN Reason: Constipation Last Admin: 03/27/18 14:47 Dose: 10 mg Buspirone HCl (Buspar) [address] [facility] Last Admin: 03/28/18 08:40 Dose: 10 mg Calamine/Phenol (Calmoseptine Ointment) 1 applic TOPICAL 0600,2200 [facility] PRN Reason: Protocol Last Admin: 03/28/18 06:17 Dose: 1 applicatio Enoxaparin Sodium (Lovenox) 40 mg SC DAILY@0600 [facility] Last Admin: 03/28/18 06:14 Dose: 40 mg Lacosamide (Vimpat) [address] [facility] Last Admin: 03/28/18 08:40 Dose: 200 mg Levetiracetam (Keppra Tablet) 1,[address] [facility] Last Admin: 03/28/18 08:40 Dose: 1,000 mg Lidocaine (Lidoderm Patch) [address] [facility] PRN Reason: Protocol Last Admin: 03/28/18 08:40 Dose: 1 patch Loratadine (Claritin) [address] [facility] Last Admin: 03/28/18 08:40 Dose: 10 mg Magnesium Hydroxide (Milk Of Magnesia) 30 ml PO .PRN X 1 PRN PRN Reason: Constipation Last Admin: 03/27/18 03:58 Dose: 30 ml Melatonin (Melatonin) [address] [facility] Last Admin: 03/27/18 21:33 Dose: 3 mg Methocarbamol (Methocarbamol) 750 mg PO TID PRN PRN Reason: MUSCLE SPASM Last Admin: 03/19/18 14:54 Dose: 750 mg Metoprolol Tartrate (Lopressor (Beta Jose Juan)) [address] [facility] Last Admin: 03/28/18 08:39 Dose: 25 mg Ondansetron HCl (Zofran Odt) 8 mg PO Q8H PRN PRN PRN Reason: NAUSEA/VOMITING Oxycodone HCl (Oxyir) 5 mg PO Q6H PRN PRN PRN Reason: SEVERE PAIN (6-10/10) Last Admin: 03/28/18 10:16 Dose: 5 mg Pantoprazole Sodium (Protonix) [address] [facility] Last Admin: 03/28/18 08:40 Dose: 40 mg Polyethylene Glycol (Miralax) 17 gm PO DAILY PRN PRN Reason: Constipation Last Admin: 03/27/18 21:34 Dose: 17 gm Quetiapine Fumarate (Seroquel) 12.[address] [facility] Last Admin: 03/27/18 21:33 Dose: 12.5 mg Senna/Docusate Sodium (Senokot-S, Daija-Colace) [address] [facility] Last Admin: 03/28/18 08:40 Dose: 1 tablet Venlafaxine HCl (Effexor) [address] [facility] Last Admin: 03/28/18 08:40 Dose: 75 mg Medical Necessity - Tobacco Use Smoking Status: Former smoker Tobacco Use: Non-smoker Assessment/Plan All Active Problems (This Medical Record has been edited. Action required.) Aortic dissection (Acute) Acute right MCA stroke (Acute) Left hemiplegia (Acute) Acute kidney injury (Acute) Seizure disorder (Acute) Dysphagia (Acute) Vocal cord paralysis (Acute) Dysphagia (Acute) 1. Physical debility due to right MCA stroke s/p decompressive craniectomy Had aortic dissection and status post repair. Postop course, gated by acute right MCA stroke and status post craniectomy. Has residual left-sided spastic hemiparesis. Also has vocal cord paralysis and respiratory failure and dysphagia requiring PEG tube placement on aspirin PT/OT on board having spasticity of his left thigh. Pain management consult placed for baclofen pump placement 2. Acute right MCA stroke s/p decompressive craniectomy stable 3. Constipation: says he has only had a small bowel movement since yesterday. To have soapsuds enema prn. 4. Aortic dissection status post repair: Stable 5. Seizure Disorder: Stable. On Keppra. 6. Vocal cord paralysis: Speech therapy on board. Management as per ENT. 7. Hypertension: controlled. On metoprolol 8. Dysphagia: s/p PEG tube placement. also able to take PO food. 9. Depression. On effexor and seroquel 10. DVT prophylaxis: lovenox This note was generated with PerioSealation software. It may contain incorrect words, spelling, and punctuation that were not noted in checking the note before signing. Code Visit Inpatient E&M: 66397 Subs Hosp L2
[2018-03-28 17:00] VITALS: BMI 18.3
[2018-03-28] MEDS: QUEtiapine 25 MG Tablet 12.5 MG PO (21:44)
[2018-03-28] MEDS: MELATONIN 3 MG TABLET PO (21:45)
[2018-03-28 21:51] VITALS: BP 106/71; PULSE 64
[2018-03-28 22:06] VITALS: BP 106/71; PULSE 65; RESP 18; TEMP 36.6; O2SAT 95
[2018-03-28 22:13] VITALS: PULSE 65; RESP 18; O2SAT 95
[2018-03-28 22:19] VITALS: BMI 18.3
--- NOTE | 2018-03-28 23:22 | NURSING ---
Reviewed and agree with LPNs fims and handoff
[2018-03-29] MEDS: Menthol/Lanolin/Calamine/Znox 113 GM Tube 1 APPLIC TOPICAL ×2 (05:21→20:32)
[2018-03-29] MEDS: Enoxaparin 40 MG/0.4 ML Syringe SC (05:21)
[2018-03-29] MEDS: Baclofen 10 MG Tablet PO ×3 (05:21→20:33)
[2018-03-29 07:56] VITALS: BP 122/84; PULSE 65; RESP 16; TEMP 36.8; O2SAT 99
[2018-03-29] MEDS: Lacosamide 100 MG Tablet 200 MG PO ×2 (09:23→20:35)
[2018-03-29 09:24] VITALS: BP 122/84; PULSE 65
[2018-03-29] MEDS: Metoprolol Tartrate 25 MG Tablet PO (09:24)
[2018-03-29] MEDS: oxyCODONE 5 MG Tablet PO (09:24)
[2018-03-29] MEDS: levETIRAcetam 1,000 MG Tablet 1000 MG PO ×2 (09:24→20:33)
[2018-03-29] MEDS: busPIRone 5 MG Tablet 10 MG PO ×2 (09:24→20:34)
[2018-03-29] MEDS: Pantoprazole Sodium 40 MG Tablet PO (09:24)
[2018-03-29] MEDS: Aspirin 81 MG TAB.CHEW PO (09:24)
[2018-03-29] MEDS: Venlafaxine HCl 75 MG Tablet PO ×2 (09:24→20:34)
[2018-03-29] MEDS: Loratadine 10 MG Tablet PO (09:24)
[2018-03-29] MEDS: Lidocaine 5% Patch 1 PATCH TOPICAL (09:26)
[2018-03-29 12:11] VITALS: BMI 18.3
[2018-03-29 19:53] VITALS: BP 116/69; PULSE 66; RESP 16; TEMP 36.4; O2SAT 96
[2018-03-29 20:07] VITALS: BMI 18.3
[2018-03-29 20:31] VITALS: BP 116/69; PULSE 66
[2018-03-29] MEDS: QUEtiapine 25 MG Tablet 12.5 MG PO (20:32)
[2018-03-29] MEDS: MELATONIN 3 MG TABLET PO (20:33)
[2018-03-29 20:44] VITALS: PULSE 66; RESP 16; O2SAT 96
--- NOTE | 2018-03-30 00:59 | NURSING ---
Reviewed and agree with INFUSION RN documentation and FIMs charting.
[2018-03-30] MEDS: Enoxaparin 40 MG/0.4 ML Syringe SC (05:53)
[2018-03-30] MEDS: Menthol/Lanolin/Calamine/Znox 113 GM Tube 1 APPLIC TOPICAL ×2 (05:53→22:47)
[2018-03-30] MEDS: Baclofen 10 MG Tablet PO ×3 (05:53→22:47)
[2018-03-30 07:22] VITALS: BP 120/75; PULSE 60; RESP 18; TEMP 36.3; O2SAT 95
[2018-03-30] MEDS: Lidocaine 5% Patch 1 PATCH TOPICAL (08:30)
[2018-03-30] MEDS: Lacosamide 100 MG Tablet 200 MG PO ×2 (08:31→22:38)
[2018-03-30] MEDS: Aspirin 81 MG TAB.CHEW PO (08:31)
[2018-03-30] MEDS: busPIRone 5 MG Tablet 10 MG PO ×2 (08:31→22:47)
[2018-03-30 08:32] VITALS: PULSE 60
[2018-03-30] MEDS: Pantoprazole Sodium 40 MG Tablet PO (08:32)
[2018-03-30] MEDS: Loratadine 10 MG Tablet PO (08:32)
[2018-03-30] MEDS: levETIRAcetam 1,000 MG Tablet 1000 MG PO ×2 (08:32→22:47)
[2018-03-30] MEDS: Metoprolol Tartrate 25 MG Tablet PO ×2 (08:32→22:46)
[2018-03-30] MEDS: Venlafaxine HCl 75 MG Tablet PO ×2 (08:32→22:47)
[2018-03-30] MEDS: oxyCODONE 5 MG Tablet PO ×2 (08:43→23:44)
[2018-03-30 09:42] VITALS: BMI 18.3
--- NOTE | 2018-03-30 15:50 | PCM.PN.HOSP ---
Subjective: Patient seen and examined. He has been tolerating therapy well but has pain due to the spasticity in his left lower extremity. He denies any fever chills, cough or chest pain, shortness of breath, abdominal pain, diarrhea vomiting. 12 point review of systems otherwise negative. He is awaiting placement of baclofen pump. Meanwhile he remains on oral baclofen for now. Labs and vitals reviewed. Vitals/I&O's: Vital Signs Temp Pulse Resp BP Pulse Ox 97.4 F L 60 18 120/75 95 03/30/18 07:22 03/30/18 08:32 03/30/18 07:22 03/30/18 07:22 03/30/18 07:22 Oxygen Delivery Method Room Air Weight: 131 lb 9.855 oz Body Mass Index (BMI) 18.3 Intake and Output for Last 24 Hours 03/28/18 03/29/18 03/30/18 23:59 23:59 23:59 Intake Total 560 / 560 450 / 450 440 / 440 Output Total 420 / 420 850 / 850 275 / 275 Balance 140 / 140 -400 / -400 165 / 165 General: Alert, Oriented x3, Cooperative, No apparent distress HEENT: Atraumatic, PERRLA, EOMI, Normocephalic Oral: Moist Mucosa Neck: Supple, No JVD, Negative Carotid Bruits Lungs: Clear to auscultation, Normal air movement, No rhonchi, No wheeze, No rales Cardiovascular: Regular rate, Regular Rhythm, Normal S1, Normal S2, No murmurs Abdomen: Bowel Sounds Present, Soft, Non Tender, Non-Distended, No Hepato-splenomegaly Extremities: No clubbing, No cyanosis, No edema, Capillary Refill Less than 3 Seconds Skin: No rashes, No breakdown Musculoskeletal: No Tenderness to Palpation of Joints or Extremities Lymphatic: No Cervical, Supraclavicular, or Inguinal Adenopathy Neurological: Cranial nerves II-XII grossly intact, - - Left-sided spasticity and hemiparesis. Psych/Mental Status: Normal Affect, Appropriate, Alert and oriented to time, place, person, mood and affect Current Medications Acetaminophen (Tylenol) 650 mg PO Q6H PRN PRN PRN Reason: Mild Pain (0-3/10)/Headache Last Admin: 03/28/18 02:40 Dose: 650 mg Acetylcysteine (Mucomyst) 400 mg INHALATION Q6H.RT PRN PRN Reason: sob/wheezing Albuterol/Ipratropium (Duoneb) 3 ml INHALATION Q4H.RT PRN PRN Reason: SOB &/OR WHEEZING Aspirin (Aspirin, Baby) 81 mg PO DAILY@0800 [facility] Last Admin: 03/30/18 08:31 Dose: 81 mg Baclofen (Lioresal) 10 mg PO TID [facility] Last Admin: 03/30/18 13:17 Dose: 10 mg Bisacodyl (Dulcolax) 10 mg RECTAL .PRN X 1 PRN PRN Reason: Constipation Last Admin: 03/27/18 14:47 Dose: 10 mg Buspirone HCl (Buspar) 10 mg PO BID [facility] Last Admin: 03/30/18 08:31 Dose: 10 mg Calamine/Phenol (Calmoseptine Ointment) 1 applic TOPICAL 0600,2200 [facility] PRN Reason: Protocol Last Admin: 03/30/18 05:53 Dose: 1 applicatio Enoxaparin Sodium (Lovenox) 40 mg SC DAILY@0600 [facility] Last Admin: 03/30/18 05:53 Dose: 40 mg Lacosamide (Vimpat) 200 mg PO BID [facility] Last Admin: 03/30/18 08:31 Dose: 200 mg Levetiracetam (Keppra Tablet) 1,000 mg PO BID [facility] Last Admin: 03/30/18 08:32 Dose: 1,000 mg Lidocaine (Lidoderm Patch) 1 patch TOPICAL DAILY [facility] PRN Reason: Protocol Last Admin: 03/30/18 08:30 Dose: 1 patch Loratadine (Claritin) 10 mg PO DAILY [facility] Last Admin: 03/30/18 08:32 Dose: 10 mg Magnesium Hydroxide (Milk Of Magnesia) 30 ml PO .PRN X 1 PRN PRN Reason: Constipation Last Admin: 03/27/18 03:58 Dose: 30 ml Melatonin (Melatonin) 3 mg PO QHS [facility] Last Admin: 03/29/18 20:33 Dose: 3 mg Methocarbamol (Methocarbamol) 750 mg PO TID PRN PRN Reason: MUSCLE SPASM Last Admin: 03/19/18 14:54 Dose: 750 mg Metoprolol Tartrate (Lopressor (Beta Jose Juan)) 25 mg PO BID [facility] Last Admin: 03/30/18 08:32 Dose: 25 mg Ondansetron HCl (Zofran Odt) 8 mg PO Q8H PRN PRN PRN Reason: NAUSEA/VOMITING Oxycodone HCl (Oxyir) 5 mg PO Q6H PRN PRN PRN Reason: SEVERE PAIN (6-10/10) Last Admin: 03/30/18 08:43 Dose: 5 mg Pantoprazole Sodium (Protonix) 40 mg PO DAILY [facility] Last Admin: 03/30/18 08:32 Dose: 40 mg Polyethylene Glycol (Miralax) 17 gm PO DAILY PRN PRN Reason: Constipation Last Admin: 03/27/18 21:34 Dose: 17 gm Quetiapine Fumarate (Seroquel) 12.5 mg PO QHS [facility] Last Admin: 03/29/18 20:32 Dose: 12.5 mg Senna/Docusate Sodium (Senokot-S, Daija-Colace) 1 tablet PO BID [facility] Last Admin: 03/30/18 08:20 Dose: Not Given Venlafaxine HCl (Effexor) 75 mg PO BID [facility] Last Admin: 03/30/18 08:32 Dose: 75 mg Medical Necessity - Tobacco Use Smoking Status: Former smoker Tobacco Use: Non-smoker Assessment/Plan All Active Problems (This Medical Record has been edited. Action required.) Aortic dissection (Acute) Acute right MCA stroke (Acute) Left hemiplegia (Acute) Acute kidney injury (Acute) Seizure disorder (Acute) Dysphagia (Acute) Vocal cord paralysis (Acute) Dysphagia (Acute) 1. Physical debility due to right MCA stroke s/p decompressive craniectomy Had aortic dissection and status post repair. Postop course, gated by acute right MCA stroke and status post craniectomy. Has residual left-sided spastic hemiparesis. Also has vocal cord paralysis and respiratory failure and dysphagia requiring PEG tube placement on aspirin PT/OT on board awaiting baclofen pump placement for spasticity of LLE. 2. Acute right MCA stroke s/p decompressive craniectomy stable 3. Constipation: resolved. on prn enemas and Miralax. 4. Aortic dissection status post repair: Stable 5. Seizure Disorder: Stable. On Keppra. 6. Vocal cord paralysis: Speech therapy on board. Management as per ENT. 7. Hypertension: controlled. On metoprolol 8. Dysphagia: s/p PEG tube placement. also able to take PO food. 9. Depression. On effexor and seroquel 10. DVT prophylaxis: lovenox This note was generated with [employer] dictation software. It may contain incorrect words, spelling, and punctuation that were not noted in checking the note before signing. Code Visit Inpatient E&M: 92218 Subs Hosp L2
[2018-03-30 19:31] VITALS: BP 113/74; PULSE 63; RESP 16; TEMP 36.4; O2SAT 94
[2018-03-30] MEDS: Acetaminophen 325 MG Tablet 650 MG PO (20:03)
[2018-03-30] MEDS: Senna/Docusate Sodium 1 Tablet PO (22:39)
[2018-03-30] MEDS: QUEtiapine 25 MG Tablet 12.5 MG PO (22:39)
[2018-03-30 22:46] VITALS: BP 113/74; PULSE 63
[2018-03-30] MEDS: MELATONIN 3 MG TABLET PO (22:46)
[2018-03-31 05:00] VITALS: BMI 18.3
[2018-03-31] MEDS: Enoxaparin 40 MG/0.4 ML Syringe SC (05:33)
[2018-03-31] MEDS: Menthol/Lanolin/Calamine/Znox 113 GM Tube 1 APPLIC TOPICAL ×2 (05:33→20:26)
[2018-03-31] MEDS: Baclofen 10 MG Tablet PO ×3 (05:33→20:19)
[2018-03-31] MEDS: oxyCODONE 5 MG Tablet PO ×3 (07:22→20:30)
[2018-03-31 08:12] VITALS: BP 108/65; PULSE 54
[2018-03-31] MEDS: Lidocaine 5% Patch 1 PATCH TOPICAL (08:15)
[2018-03-31] MEDS: levETIRAcetam 1,000 MG Tablet 1000 MG PO ×2 (08:15→20:19)
[2018-03-31] MEDS: Loratadine 10 MG Tablet PO (08:16)
[2018-03-31] MEDS: busPIRone 5 MG Tablet 10 MG PO ×2 (08:16→20:27)
[2018-03-31] MEDS: Venlafaxine HCl 75 MG Tablet PO ×2 (08:16→20:26)
[2018-03-31] MEDS: Pantoprazole Sodium 40 MG Tablet PO (08:16)
[2018-03-31] MEDS: Aspirin 81 MG TAB.CHEW PO (08:17)
[2018-03-31] MEDS: Lacosamide 100 MG Tablet 200 MG PO ×2 (08:17→20:28)
[2018-03-31] MEDS: Senna/Docusate Sodium 1 Tablet PO ×2 (08:21→20:25)
[2018-03-31 09:00] VITALS: BP 108/65; PULSE 54; RESP 18; TEMP 36.4; O2SAT 96; BMI 18.3
[2018-03-31 18:44] VITALS: BP 121/73; PULSE 71; RESP 16; TEMP 36.1; O2SAT 96
[2018-03-31 20:15] VITALS: BMI 18.3
[2018-03-31 20:18] VITALS: PULSE 71
[2018-03-31] MEDS: Metoprolol Tartrate 25 MG Tablet PO (20:18)
[2018-03-31] MEDS: QUEtiapine 25 MG Tablet 12.5 MG PO (20:20)
[2018-03-31] MEDS: MELATONIN 3 MG TABLET PO (20:26)
[2018-04-01] MEDS: oxyCODONE 5 MG Tablet PO ×3 (05:24→21:24)
[2018-04-01] MEDS: Enoxaparin 40 MG/0.4 ML Syringe SC (05:25)
[2018-04-01] MEDS: Menthol/Lanolin/Calamine/Znox 113 GM Tube 1 APPLIC TOPICAL ×2 (05:25→21:27)
[2018-04-01] MEDS: Baclofen 10 MG Tablet PO ×3 (05:25→21:27)
--- NOTE | 2018-04-01 07:16 | CASEMGMT ---
Insurance Continued stay approved with next update due on 04/04/18. Auth#[id number] Guillermina PANTOJA, [employer] PROCESSING TECHNICIAN
[2018-04-01 08:21] VITALS: BP 138/80; PULSE 56; RESP 18; TEMP 36.8; O2SAT 96
[2018-04-01] MEDS: Aspirin 81 MG TAB.CHEW PO (08:31)
[2018-04-01] MEDS: levETIRAcetam 1,000 MG Tablet 1000 MG PO ×2 (08:31→21:25)
[2018-04-01] MEDS: Lidocaine 5% Patch 1 PATCH TOPICAL (08:31)
[2018-04-01] MEDS: busPIRone 5 MG Tablet 10 MG PO ×2 (08:31→21:28)
[2018-04-01] MEDS: Venlafaxine HCl 75 MG Tablet PO ×2 (08:31→21:27)
[2018-04-01] MEDS: Loratadine 10 MG Tablet PO (08:31)
[2018-04-01 08:32] VITALS: BP 138/80; PULSE 56
[2018-04-01] MEDS: Metoprolol Tartrate 25 MG Tablet PO ×2 (08:32→21:27)
[2018-04-01] MEDS: Lacosamide 100 MG Tablet 200 MG PO ×2 (08:32→21:29)
[2018-04-01] MEDS: Pantoprazole Sodium 40 MG Tablet PO (08:32)
[2018-04-01] MEDS: Senna/Docusate Sodium 1 Tablet PO ×2 (08:32→21:25)
[2018-04-01] MEDS: Acetaminophen 325 MG Tablet 650 MG PO (08:41)
--- NOTE | 2018-04-01 09:25 | PCM.PN.NEU ---
Subjective: Patient seen and examined. No acute issues overnight. Tolerating therapy, and working hard per the therapy team. Denies any blurry vision, double vision, or headache. No issues with GI/Gu. Remains on a Pureed diet with [place] thicken liquids. - Physical Exam General: Alert, Oriented x3, Cooperative Psych/Mental Status: Alert and oriented to time, place, person, mood and affect Vital Signs Temp Pulse Resp BP Pulse Ox 98.2 F 56 L 18 138/80 H 96 04/01/18 08:21 04/01/18 08:32 04/01/18 08:21 04/01/18 08:32 04/01/18 08:21 Oxygen Delivery Method Room Air Weight: 58.5 kg Body Mass Index (BMI) 18.3 Intake and Output for Last 24 Hours 03/30/18 03/31/18 04/01/18 23:59 23:59 23:59 Intake Total 960 / 960 820 / 820 240 / 240 Output Total 925 / 925 1425 / 1425 200 / 200 Balance 35 / 35 -605 / -605 40 / 40 Active Medications Acetaminophen (Tylenol) 650 mg PO Q6H PRN PRN PRN Reason: Mild Pain (0-3/10)/Headache Last Admin: 04/01/18 08:41 Dose: 650 mg Acetylcysteine (Mucomyst) 400 mg INHALATION Q6H.RT PRN PRN Reason: sob/wheezing Albuterol/Ipratropium (Duoneb) 3 ml INHALATION Q4H.RT PRN PRN Reason: SOB &/OR WHEEZING Aspirin (Aspirin, Baby) 81 mg PO DAILY@0800 [facility] Last Admin: 04/01/18 08:31 Dose: 81 mg Baclofen (Lioresal) 10 mg PO TID [facility] Last Admin: 04/01/18 05:25 Dose: 10 mg Bisacodyl (Dulcolax) 10 mg RECTAL .PRN X 1 PRN PRN Reason: Constipation Last Admin: 03/27/18 14:47 Dose: 10 mg Buspirone HCl (Buspar) 10 mg PO BID [facility] Last Admin: 04/01/18 08:31 Dose: 10 mg Calamine/Phenol (Calmoseptine Ointment) 1 applic TOPICAL 0600,2200 [facility] PRN Reason: Protocol Last Admin: 04/01/18 05:25 Dose: 1 applicatio Enoxaparin Sodium (Lovenox) 40 mg SC DAILY@0600 [facility] Last Admin: 04/01/18 05:25 Dose: 40 mg Lacosamide (Vimpat) 200 mg PO BID [facility] Last Admin: 04/01/18 08:32 Dose: 200 mg Levetiracetam (Keppra Tablet) 1,000 mg PO BID [facility] Last Admin: 04/01/18 08:31 Dose: 1,000 mg Lidocaine (Lidoderm Patch) 1 patch TOPICAL DAILY [facility] PRN Reason: Protocol Last Admin: 04/01/18 08:31 Dose: 1 patch Loratadine (Claritin) 10 mg PO DAILY [facility] Last Admin: 04/01/18 08:31 Dose: 10 mg Magnesium Hydroxide (Milk Of Magnesia) 30 ml PO .PRN X 1 PRN PRN Reason: Constipation Last Admin: 03/27/18 03:58 Dose: 30 ml Melatonin (Melatonin) 3 mg PO QHS [facility] Last Admin: 03/31/18 20:26 Dose: 3 mg Methocarbamol (Methocarbamol) 750 mg PO TID PRN PRN Reason: MUSCLE SPASM Last Admin: 03/19/18 14:54 Dose: 750 mg Metoprolol Tartrate (Lopressor (Beta Jose Juan)) 25 mg PO BID [facility] Last Admin: 04/01/18 08:32 Dose: 25 mg Ondansetron HCl (Zofran Odt) 8 mg PO Q8H PRN PRN PRN Reason: NAUSEA/VOMITING Oxycodone HCl (Oxyir) 5 mg PO Q6H PRN PRN PRN Reason: SEVERE PAIN (6-10/10) Last Admin: 04/01/18 05:24 Dose: 5 mg Pantoprazole Sodium (Protonix) 40 mg PO DAILY [facility] Last Admin: 04/01/18 08:32 Dose: 40 mg Polyethylene Glycol (Miralax) 17 gm PO DAILY PRN PRN Reason: Constipation Last Admin: 03/27/18 21:34 Dose: 17 gm Quetiapine Fumarate (Seroquel) 12.5 mg PO QHS [facility] Last Admin: 03/31/18 20:20 Dose: 12.5 mg Senna/Docusate Sodium (Senokot-S, Daija-Colace) 1 tablet PO BID [facility] Last Admin: 04/01/18 08:32 Dose: 1 tablet Venlafaxine HCl (Effexor) 75 mg PO BID [facility] Last Admin: 04/01/18 08:31 Dose: 75 mg Medical Necessity - Tobacco Use Smoking Status: Former smoker Tobacco Use: Non-smoker Assessment/Plan All Active Problems (This Medical Record has been edited. Action required.) Aortic dissection (Acute) Acute right MCA stroke (Acute) Left hemiplegia (Acute) Acute kidney injury (Acute) Seizure disorder (Acute) Dysphagia (Acute) Vocal cord paralysis (Acute) Dysphagia (Acute) Debility due to pain, complex hospitalization including due to aneurysm of his aorta requiring a decompressive craniotomy, initially recovered but had a large right sided subdural hematoma which has remained stable and has not required further craniotomy or intervention. Now presents back to the rehab unit for rehabilitation so that he can return home. Plan: Physical therapy for gait and balance Occupational Therapy for ADLs Speech therapy for a aphasia and dysphasia As needed analgesics Bowel protocol DVT prophylaxis: Lovenox Seizure prophylaxis with Keppra and Vimpat PEG tube: Await speech therapy recommendations but if he is taking 100% of his p.o. intake we will hold his tube feeds. 03/20: No longer receiving any tube feeds. 03/21: Consider removing PEG tube in a few weeks if it is no longer in use.
--- NOTE | 2018-04-01 09:30 | PN.NEURO_ITS ---
Subjective: Patient seen and examined. No acute issues overnight. Tolerating therapy, and working hard per the therapy team. Denies any blurry vision, double vision, or headache. No issues with GI/Gu. Remains on a Pureed diet with [place] thicken liquids. - Physical Exam General: Alert, Oriented x3, Cooperative Psych/Mental Status: Alert and oriented to time, place, person, mood and affect Vital Signs Temp Pulse Resp BP Pulse Ox 98.2 F 56 L 18 138/80 H 96 04/01/18 08:21 04/01/18 08:32 04/01/18 08:21 04/01/18 08:32 04/01/18 08:21 Oxygen Delivery Method Room Air Weight: 58.5 kg Body Mass Index (BMI) 18.3 Intake and Output for Last 24 Hours 03/30/18 03/31/18 04/01/18 23:59 23:59 23:59 Intake Total 960 / 960 820 / 820 240 / 240 Output Total 925 / 925 1425 / 1425 200 / 200 Balance 35 / 35 -605 / -605 40 / 40 Active Medications Acetaminophen (Tylenol) 650 mg PO Q6H PRN PRN PRN Reason: Mild Pain (0-3/10)/Headache Last Admin: 04/01/18 08:41 Dose: 650 mg Acetylcysteine (Mucomyst) 400 mg INHALATION Q6H.RT PRN PRN Reason: sob/wheezing Albuterol/Ipratropium (Duoneb) 3 ml INHALATION Q4H.RT PRN PRN Reason: SOB &/OR WHEEZING Aspirin (Aspirin, Baby) 81 mg PO DAILY@0800 [facility] Last Admin: 04/01/18 08:31 Dose: 81 mg Baclofen (Lioresal) 10 mg PO TID [facility] Last Admin: 04/01/18 05:25 Dose: 10 mg Bisacodyl (Dulcolax) 10 mg RECTAL .PRN X 1 PRN PRN Reason: Constipation Last Admin: 03/27/18 14:47 Dose: 10 mg Buspirone HCl (Buspar) 10 mg PO BID [facility] Last Admin: 04/01/18 08:31 Dose: 10 mg Calamine/Phenol (Calmoseptine Ointment) 1 applic TOPICAL 0600,2200 [facility] PRN Reason: Protocol Last Admin: 04/01/18 05:25 Dose: 1 applicatio Enoxaparin Sodium (Lovenox) 40 mg SC DAILY@0600 [facility] Last Admin: 04/01/18 05:25 Dose: 40 mg Lacosamide (Vimpat) 200 mg PO BID [facility] Last Admin: 04/01/18 08:32 Dose: 200 mg Levetiracetam (Keppra Tablet) 1,000 mg PO BID [facility] Last Admin: 04/01/18 08:31 Dose: 1,000 mg Lidocaine (Lidoderm Patch) 1 patch TOPICAL DAILY [facility] PRN Reason: Protocol Last Admin: 04/01/18 08:31 Dose: 1 patch Loratadine (Claritin) 10 mg PO DAILY [facility] Last Admin: 04/01/18 08:31 Dose: 10 mg Magnesium Hydroxide (Milk Of Magnesia) 30 ml PO .PRN X 1 PRN PRN Reason: Constipation Last Admin: 03/27/18 03:58 Dose: 30 ml Melatonin (Melatonin) 3 mg PO QHS [facility] Last Admin: 03/31/18 20:26 Dose: 3 mg Methocarbamol (Methocarbamol) 750 mg PO TID PRN PRN Reason: MUSCLE SPASM Last Admin: 03/19/18 14:54 Dose: 750 mg Metoprolol Tartrate (Lopressor (Beta Jose Juan)) 25 mg PO BID [facility] Last Admin: 04/01/18 08:32 Dose: 25 mg Ondansetron HCl (Zofran Odt) 8 mg PO Q8H PRN PRN PRN Reason: NAUSEA/VOMITING Oxycodone HCl (Oxyir) 5 mg PO Q6H PRN PRN PRN Reason: SEVERE PAIN (6-10/10) Last Admin: 04/01/18 05:24 Dose: 5 mg Pantoprazole Sodium (Protonix) 40 mg PO DAILY [facility] Last Admin: 04/01/18 08:32 Dose: 40 mg Polyethylene Glycol (Miralax) 17 gm PO DAILY PRN PRN Reason: Constipation Last Admin: 03/27/18 21:34 Dose: 17 gm Quetiapine Fumarate (Seroquel) 12.5 mg PO QHS [facility] Last Admin: 03/31/18 20:20 Dose: 12.5 mg Senna/Docusate Sodium (Senokot-S, Daija-Colace) 1 tablet PO BID [facility] Last Admin: 04/01/18 08:32 Dose: 1 tablet Venlafaxine HCl (Effexor) 75 mg PO BID [facility] Last Admin: 04/01/18 08:31 Dose: 75 mg Medical Necessity - Tobacco Use Smoking Status: Former smoker Tobacco Use: Non-smoker Assessment/Plan All Active Problems (This Medical Record has been edited. Action required.) Aortic dissection (Acute) Acute right MCA stroke (Acute) Left hemiplegia (Acute) Acute kidney injury (Acute) Seizure disorder (Acute) Dysphagia (Acute) Vocal cord paralysis (Acute) Dysphagia (Acute) Debility due to pain, complex hospitalization including due to aneurysm of his aorta requiring a decompressive craniotomy, initially recovered but had a large right sided subdural hematoma which has remained stable and has not required further craniotomy or intervention. Now presents back to the rehab unit for rehabilitation so that he can return home. Plan: Physical therapy for gait and balance Occupational Therapy for ADLs Speech therapy for a aphasia and dysphasia As needed analgesics Bowel protocol DVT prophylaxis: Lovenox Seizure prophylaxis with Keppra and Vimpat PEG tube: Await speech therapy recommendations but if he is taking 100% of his p.o. intake we will hold his tube feeds. 03/20: No longer receiving any tube feeds. 03/21: Consider removing PEG tube in a few weeks if it is no longer in use.
[2018-04-01 11:01] VITALS: BMI 18.3
[2018-04-01] MEDS: Magnesium Hydroxide 30 ML UDC PO (15:39)
[2018-04-01] MEDS: Polyethylene Glycol 3350 17 GM PACKET PO (15:39)
--- NOTE | 2018-04-01 16:16 | CASEMGMT ---
Social Work Spoke with patient and patient family. Patient family requesting for this social media analyst to look into transportation for patient via wheelchair van to patient daughter wedding this weekend. Patient family aware that transportation will be private pay. Telephone call to Bernice Bo. Bernice reporting that Anupam is able to transport with private pay cost being $175. Family agreeable to this cost. Transportation set up for Anupam to pickling drum operator patient at 2pm on 04/05/18 and then return patient around 8-9pm. Anupam to pickling drum operator patient at 8pm from wedding. Transportation form to be completed and placed with patient chart. Will continue to follow. Guillermina PANTOJA, PLUMBING WAREHOUSE HELPER
--- NOTE | 2018-04-01 16:21 | PCM.PN.HOSP ---
Subjective: Patient was admitted here on 03/18/2018 after recent transfer to [facility] on [address] findings of midline shift and large subdural pneumocephalus with one third filled with fluid. Patient has left upper and lower extremity muscle rigidity with the spasticity. Objective: General: Alert, Oriented x3, Cooperative HEENT: Atraumatic, PERRLA, EOMI, Normocephalic Oral: Moist Mucosa Neck: Supple, No JVD, Negative Carotid Bruits Lungs: Clear to auscultation, air entry diminished in bilateral lung bases. Cardiovascular: Regular rate, Regular Rhythm, Normal S1, Normal S2, No murmurs Abdomen: Bowel Sounds Present, Soft, Non Tender, Non-Distended, - - PEG tube in place; not oozing it Extremities: No clubbing, No cyanosis, No edema, Capillary Refill Less than 3 Seconds Skin: No rashes, No breakdown Musculoskeletal: No Tenderness to Palpation of Joints or Extremities Lymphatic: No Cervical, Supraclavicular, or Inguinal Adenopathy Neurological: Cranial nerves II-XII grossly intact, - - LUE contractures and left hemiplegia. Left lower extremity power 2/5 with muscle rigidity Psych/Mental Status: Normal Affect, Alert and oriented to time, place, person, mood and affect Vitals/I&O's: Vital Signs Temp Pulse Resp BP Pulse Ox 98.2 F 56 L 18 138/80 H 96 04/01/18 08:21 04/01/18 08:32 04/01/18 08:21 04/01/18 08:32 04/01/18 08:21 Oxygen Delivery Method Room Air Weight: 128 lb 15.527 oz Body Mass Index (BMI) 18.3 Intake and Output for Last 24 Hours 03/30/18 03/31/18 04/01/18 23:59 23:59 23:59 Intake Total 960 / 960 820 / 820 540 / 540 Output Total 925 / 925 1425 / 1425 400 / 400 Balance 35 / 35 -605 / -605 140 / 140 Current Medications Acetaminophen (Tylenol) 650 mg PO Q6H PRN PRN PRN Reason: Mild Pain (0-3/10)/Headache Last Admin: 04/01/18 08:41 Dose: 650 mg Acetylcysteine (Mucomyst) 400 mg INHALATION Q6H.RT PRN PRN Reason: sob/wheezing Albuterol/Ipratropium (Duoneb) 3 ml INHALATION Q4H.RT PRN PRN Reason: SOB &/OR WHEEZING Aspirin (Aspirin, Baby) 81 mg PO DAILY@0800 [facility] Last Admin: 04/01/18 08:31 Dose: 81 mg Baclofen (Lioresal) 10 mg PO TID [facility] Last Admin: 04/01/18 14:12 Dose: 10 mg Bisacodyl (Dulcolax) 10 mg RECTAL .PRN X 1 PRN PRN Reason: Constipation Last Admin: 03/27/18 14:47 Dose: 10 mg Buspirone HCl (Buspar) 10 mg PO BID [facility] Last Admin: 04/01/18 08:31 Dose: 10 mg Calamine/Phenol (Calmoseptine Ointment) 1 applic TOPICAL 0600,2200 [facility] PRN Reason: Protocol Last Admin: 04/01/18 05:25 Dose: 1 applicatio Enoxaparin Sodium (Lovenox) 40 mg SC DAILY@0600 [facility] Last Admin: 04/01/18 05:25 Dose: 40 mg Lacosamide (Vimpat) 200 mg PO BID [facility] Last Admin: 04/01/18 08:32 Dose: 200 mg Levetiracetam (Keppra Tablet) 1,000 mg PO BID [facility] Last Admin: 04/01/18 08:31 Dose: 1,000 mg Lidocaine (Lidoderm Patch) 1 patch TOPICAL DAILY [facility] PRN Reason: Protocol Last Admin: 04/01/18 08:31 Dose: 1 patch Loratadine (Claritin) 10 mg PO DAILY [facility] Last Admin: 04/01/18 08:31 Dose: 10 mg Magnesium Hydroxide (Milk Of Magnesia) 30 ml PO .PRN X 1 PRN PRN Reason: Constipation Last Admin: 04/01/18 15:39 Dose: 30 ml Melatonin (Melatonin) 3 mg PO QHS [facility] Last Admin: 03/31/18 20:26 Dose: 3 mg Methocarbamol (Methocarbamol) 750 mg PO TID PRN PRN Reason: MUSCLE SPASM Last Admin: 03/19/18 14:54 Dose: 750 mg Metoprolol Tartrate (Lopressor (Beta Jose Juan)) 25 mg PO BID [facility] Last Admin: 04/01/18 08:32 Dose: 25 mg Ondansetron HCl (Zofran Odt) 8 mg PO Q8H PRN PRN PRN Reason: NAUSEA/VOMITING Oxycodone HCl (Oxyir) 5 mg PO Q6H PRN PRN PRN Reason: SEVERE PAIN (6-10/10) Last Admin: 04/01/18 12:00 Dose: 5 mg Pantoprazole Sodium (Protonix) 40 mg PO DAILY [facility] Last Admin: 04/01/18 08:32 Dose: 40 mg Polyethylene Glycol (Miralax) 17 gm PO DAILY PRN PRN Reason: Constipation Last Admin: 04/01/18 15:39 Dose: 17 gm Quetiapine Fumarate (Seroquel) 12.5 mg PO QHS [facility] Last Admin: 03/31/18 20:20 Dose: 12.5 mg Senna/Docusate Sodium (Senokot-S, Daija-Colace) 1 tablet PO BID [facility] Last Admin: 04/01/18 08:32 Dose: 1 tablet Venlafaxine HCl (Effexor) 75 mg PO BID [facility] Last Admin: 04/01/18 08:31 Dose: 75 mg Medical Necessity - Tobacco Use Smoking Status: Former smoker Tobacco Use: Non-smoker Assessment/Plan All Active Problems (This Medical Record has been edited. Action required.) Aortic dissection (Acute) Acute right MCA stroke (Acute) Left hemiplegia (Acute) Acute kidney injury (Acute) Seizure disorder (Acute) Dysphagia (Acute) Vocal cord paralysis (Acute) Dysphagia (Acute) The patient is a 52 year old male with recent complicated past medical history including aortic dissection for which patient underwent surgery at [facility] which was complicated by a right MCA stroke in September 2017 status post decompressive craniectomy in September 2017 followed by vocal cord paralysis managed by ENT and subsequently had pneumonia and respiratory failure resulting into intubation in December 2017 and was discharged to TCU on 02/07/2018. Patient had PEG tube placement on 02/13/2018 and then was readmitted to [facility] on 03/17/2013 for cranioplasty and subsequently transferred to the inpatient rehab unit. On 03/14/2018, CT head was done and showed large right-sided subdural fluid and gas collection measuring 9.4 cm craniocaudal, 11.7 cm AP, 4.7 cm greatest depth of lenticular shaped collection. About one third filled with fluid. No acute blood. There is also subgaleal gas overlying the right craniectomy likely complicating with subdural pneumocephalus. There is midline shift of 13 mm leftward at the level of septum pellucidum. No evidence of osman herniation left cerebral hemisphere exhibits no acute process. In view of this new CT finding of midline shift and large right-sided subdural pneumocephalus, the patient was transferred to [facility]. There he was monitored in neuro ICU and managed conservatively and transferred back to rehab on 03/18/2018 1. Physical debility due to right MCA stroke s/p decompressive craniectomy and cranioplasty PT/OT on board awaiting baclofen pump placement for spasticity of LLE. 2. Acute right MCA stroke s/p decompressive craniectomy stable 3. Constipation: resolved. on prn enemas and Miralax. 4. Aortic dissection status post repair: Stable 5. Seizure Disorder: Stable. On Keppra. 6. Vocal cord paralysis: Speech therapy on board. Management as per ENT. 7. Hypertension: controlled. On metoprolol 8. Dysphagia: s/p PEG tube placement. also able to take PO food. 9. Depression. On effexor and seroquel 10. DVT prophylaxis: lovenox This note was generated with [employer] dictation software. It may contain incorrect words, spelling, and punctuation that were not noted in checking the note before signing. Code Visit Inpatient E&M: 98376 Subs Hosp L2
[2018-04-01 19:52] VITALS: BP 122/78; PULSE 61; RESP 18; TEMP 36.7; O2SAT 93
[2018-04-01 21:20] VITALS: BMI 18.3
[2018-04-01 21:27] VITALS: BP 122/78; PULSE 61
[2018-04-01] MEDS: MELATONIN 3 MG TABLET PO (21:27)
[2018-04-01] MEDS: QUEtiapine 25 MG Tablet 12.5 MG PO (21:28)
[2018-04-02] MEDS: oxyCODONE 5 MG Tablet PO ×2 (04:19→22:28)
[2018-04-02] MEDS: Baclofen 10 MG Tablet PO ×3 (04:38→22:53)
[2018-04-02] MEDS: Enoxaparin 40 MG/0.4 ML Syringe SC (04:38)
[2018-04-02] MEDS: Menthol/Lanolin/Calamine/Znox 113 GM Tube 1 APPLIC TOPICAL ×2 (04:39→22:53)
[2018-04-02 08:00] VITALS: PULSE 60; RESP 18; O2SAT 93
[2018-04-02 08:23] VITALS: BP 127/78; PULSE 60
[2018-04-02] MEDS: Lacosamide 100 MG Tablet 200 MG PO ×2 (08:23→22:56)
[2018-04-02] MEDS: Metoprolol Tartrate 25 MG Tablet PO ×2 (08:23→22:57)
[2018-04-02] MEDS: Senna/Docusate Sodium 1 Tablet PO ×2 (08:23→22:50)
[2018-04-02] MEDS: Pantoprazole Sodium 40 MG Tablet PO (08:23)
[2018-04-02] MEDS: Lidocaine 5% Patch 1 PATCH TOPICAL (08:24)
[2018-04-02] MEDS: Venlafaxine HCl 75 MG Tablet PO ×2 (08:24→22:54)
[2018-04-02] MEDS: levETIRAcetam 1,000 MG Tablet 1000 MG PO ×2 (08:24→22:53)
[2018-04-02] MEDS: busPIRone 5 MG Tablet 10 MG PO ×2 (08:24→22:53)
[2018-04-02] MEDS: Aspirin 81 MG TAB.CHEW PO (08:24)
[2018-04-02] MEDS: Loratadine 10 MG Tablet PO (08:24)
[2018-04-02 09:00] VITALS: BP 127/78; PULSE 60; RESP 18; TEMP 36.8; O2SAT 93; BMI 18.3
--- NOTE | 2018-04-02 10:37 | PN.NEURO_ITS ---
Subjective: Patient lying quietly in bed resting. No new complaints. Tolerating therapy. Denies any blurry vision or headaches. No issues with GI/. - Physical Exam General: Alert, Oriented x3, Cooperative HEENT: Atraumatic, PERRLA, EOMI, Normocephalic Neck: Supple, No JVD, Negative Carotid Bruits Lungs: Clear to auscultation, Normal air movement Cardiovascular: Regular rate, No murmurs Abdomen: Bowel Sounds Present, Soft, Non Tender Extremities: No edema, Capillary Refill Less than 3 Seconds Skin: No rashes, No breakdown Musculoskeletal: No Tenderness to Palpation of Joints or Extremities Neurological: Cranial nerves II-XII grossly intact Psych/Mental Status: Normal Affect, Appropriate, Alert and oriented to time, place, person, mood and affect Vital Signs Temp Pulse Resp BP Pulse Ox 98.2 F 60 18 127/78 H 93 04/02/18 09:00 04/02/18 09:00 04/02/18 09:00 04/02/18 09:00 04/02/18 09:00 Oxygen Delivery Method Room Air Weight: 62.7 kg Body Mass Index (BMI) 18.3 Intake and Output for Last 24 Hours 03/31/18 04/01/18 04/02/18 23:59 23:59 23:59 Intake Total 820 / 820 1260 / 1260 670 / 670 Output Total 1425 / 1425 800 / 800 800 / 800 Balance -605 / -605 460 / 460 -130 / -130 Active Medications Acetaminophen (Tylenol) 650 mg PO Q6H PRN PRN PRN Reason: Mild Pain (0-3/10)/Headache Last Admin: 04/01/18 08:41 Dose: 650 mg Acetylcysteine (Mucomyst) 400 mg INHALATION Q6H.RT PRN PRN Reason: sob/wheezing Albuterol/Ipratropium (Duoneb) 3 ml INHALATION Q4H.RT PRN PRN Reason: SOB &/OR WHEEZING Aspirin (Aspirin, Baby) 81 mg PO DAILY@0800 [facility] Last Admin: 04/02/18 08:24 Dose: 81 mg Baclofen (Lioresal) 10 mg PO TID [facility] Last Admin: 04/02/18 04:38 Dose: 10 mg Bisacodyl (Dulcolax) 10 mg RECTAL .PRN X 1 PRN PRN Reason: Constipation Last Admin: 03/27/18 14:47 Dose: 10 mg Buspirone HCl (Buspar) 10 mg PO BID [facility] Last Admin: 04/02/18 08:24 Dose: 10 mg Calamine/Phenol (Calmoseptine Ointment) 1 applic TOPICAL 0600,2200 [facility] PRN Reason: Protocol Last Admin: 04/02/18 04:39 Dose: 1 applicatio Enoxaparin Sodium (Lovenox) 40 mg SC DAILY@0600 [facility] Last Admin: 04/02/18 04:38 Dose: 40 mg Lacosamide (Vimpat) 200 mg PO BID [facility] Last Admin: 04/02/18 08:23 Dose: 200 mg Levetiracetam (Keppra Tablet) 1,000 mg PO BID [facility] Last Admin: 04/02/18 08:24 Dose: 1,000 mg Lidocaine (Lidoderm Patch) 1 patch TOPICAL DAILY [facility] PRN Reason: Protocol Last Admin: 04/02/18 08:24 Dose: 1 patch Loratadine (Claritin) 10 mg PO DAILY [facility] Last Admin: 04/02/18 08:24 Dose: 10 mg Magnesium Hydroxide (Milk Of Magnesia) 30 ml PO .PRN X 1 PRN PRN Reason: Constipation Last Admin: 04/01/18 15:39 Dose: 30 ml Melatonin (Melatonin) 3 mg PO QHS [facility] Last Admin: 04/01/18 21:27 Dose: 3 mg Methocarbamol (Methocarbamol) 750 mg PO TID PRN PRN Reason: MUSCLE SPASM Last Admin: 03/19/18 14:54 Dose: 750 mg Metoprolol Tartrate (Lopressor (Beta Jose Juan)) 25 mg PO BID [facility] Last Admin: 04/02/18 08:23 Dose: 25 mg Ondansetron HCl (Zofran Odt) 8 mg PO Q8H PRN PRN PRN Reason: NAUSEA/VOMITING Oxycodone HCl (Oxyir) 5 mg PO Q6H PRN PRN PRN Reason: SEVERE PAIN (6-10/10) Last Admin: 04/02/18 04:19 Dose: 5 mg Pantoprazole Sodium (Protonix) 40 mg PO DAILY [facility] Last Admin: 04/02/18 08:23 Dose: 40 mg Polyethylene Glycol (Miralax) 17 gm PO DAILY PRN PRN Reason: Constipation Last Admin: 04/01/18 15:39 Dose: 17 gm Quetiapine Fumarate (Seroquel) 12.5 mg PO QHS [facility] Last Admin: 04/01/18 21:28 Dose: 12.5 mg Senna/Docusate Sodium (Senokot-S, Daija-Colace) 1 tablet PO BID [facility] Last Admin: 04/02/18 08:23 Dose: 1 tablet Venlafaxine HCl (Effexor) 75 mg PO BID [facility] Last Admin: 04/02/18 08:24 Dose: 75 mg Medical Necessity - Tobacco Use Smoking Status: Former smoker Tobacco Use: Non-smoker Assessment/Plan All Active Problems (This Medical Record has been edited. Action required.) Aortic dissection (Acute) Acute right MCA stroke (Acute) Left hemiplegia (Acute) Acute kidney injury (Acute) Seizure disorder (Acute) Dysphagia (Acute) Vocal cord paralysis (Acute) Dysphagia (Acute) Debility due to pain, complex hospitalization including due to aneurysm of his aorta requiring a decompressive craniotomy, initially recovered but had a large right sided subdural hematoma which has remained stable and has not required further craniotomy or intervention. Now presents back to the rehab unit for rehabilitation so that he can return home. Plan: Physical therapy for gait and balance Occupational Therapy for ADLs Speech therapy for a aphasia and dysphasia As needed analgesics Bowel protocol DVT prophylaxis: Lovenox Seizure prophylaxis with Keppra and Vimpat PEG tube: Await speech therapy recommendations but if he is taking 100% of his p.o. intake we will hold his tube feeds. 03/20: No longer receiving any tube feeds. 03/21: Consider removing PEG tube in a few weeks if it is no longer in use.
--- NOTE | 2018-04-02 11:07 | NURSING ---
Call from PCP's office requesting update with same provided. they will call again for update on 04/07/18. nu
[2018-04-02] MEDS: Bisacodyl 10 MG Suppository RECTAL (14:39)
[2018-04-02] MEDS: LORazepam 0.5 MG Tablet PO (17:49)
[2018-04-02] MEDS: Magnesium Hydroxide 30 ML UDC PO (20:49)
[2018-04-02 21:26] VITALS: BP 138/78; PULSE 75; RESP 18; TEMP 36.8; O2SAT 95
[2018-04-02 21:32] VITALS: BMI 18.3
--- NOTE | 2018-04-02 22:30 | NURSING ---
Addendum entered by Alexa Youssef 04/03/18 01:17: pt tolerated well, denied any pain. Original Note: soap suds enema started per orders. tube inserted approx 2-3 inches, water immediately coming out, enema tube advanced slightly until resistance met, approx 250cc of soap suds enema given, blood tinged water leaking around enema tube, tube removed, brown stool noted in tube with scant amt of blood. remainder of water leaked out and blood tinged. j carlos giles at bedside and aware.
--- NOTE | 2018-04-02 22:45 | MDS.RN ---
Addendum entered by Nicolasa Andres 04/03/18 04:30: Hospitalist was Juan Melgar that answered page. This should be entered under Nursing Note, not MDS Registered Nurse. Error by Penelope Andres RN Original Note: soap suds enema initiated on pt. When starting enema, some bright red blood excreted with water. Procedure was stopped and assessed. Amount of blood was difficult to assess. Staff cleaned up pt and monitored. Nurse checked rectum and digitally removed stool at rectum. Hospitalist paged and returned page. Hospitalist aware and recommended proceeding with enema slowly.
[2018-04-02] MEDS: QUEtiapine 25 MG Tablet 12.5 MG PO (22:52)
[2018-04-02] MEDS: MELATONIN 3 MG TABLET PO (22:53)
[2018-04-02 22:57] VITALS: PULSE 78
--- NOTE | 2018-04-03 02:05 | NURSING ---
Pt expressed concerns about well-being and stated he appreciates everything we do to care for him but what is going to happen to him when he leaves? Pt had facial grimacing and legs were especially rigid this hs. When toes were rigid, this nurse massaged feet to relax tension from feet. Pt encouraged to use relaxation suggestions to improve tension in legs.
[2018-04-03] MEDS: oxyCODONE 5 MG Tablet PO ×2 (06:28→16:20)
[2018-04-03] MEDS: Baclofen 10 MG Tablet PO ×3 (06:29→23:27)
[2018-04-03] MEDS: Menthol/Lanolin/Calamine/Znox 113 GM Tube 1 APPLIC TOPICAL ×2 (06:29→23:28)
[2018-04-03] MEDS: Enoxaparin 40 MG/0.4 ML Syringe SC (06:29)
[2018-04-03 07:30] VITALS: BP 138/87; PULSE 74; RESP 20; TEMP 36.6; O2SAT 92
[2018-04-03] MEDS: Aspirin 81 MG TAB.CHEW PO (07:35)
[2018-04-03] MEDS: busPIRone 5 MG Tablet 10 MG PO ×2 (07:35→23:28)
[2018-04-03 07:36] VITALS: BP 138/87; PULSE 74
[2018-04-03] MEDS: levETIRAcetam 1,000 MG Tablet 1000 MG PO ×2 (07:36→23:27)
[2018-04-03] MEDS: Metoprolol Tartrate 25 MG Tablet PO (07:36)
[2018-04-03] MEDS: Venlafaxine HCl 75 MG Tablet PO ×2 (07:36→23:27)
[2018-04-03] MEDS: Loratadine 10 MG Tablet PO (07:36)
[2018-04-03] MEDS: Pantoprazole Sodium 40 MG Tablet PO (07:36)
[2018-04-03] MEDS: Senna/Docusate Sodium 1 Tablet PO ×2 (07:37→23:26)
--- NOTE | 2018-04-03 09:50 | PN.NEURO_ITS ---
Subjective: Staffed in team. Family at bedside, questions answered. With Physical therapy, he has walked along the wall rail three time, about twenty feet each time without a wheel chair following him, at max assist for balance and to assist with advancing his leg, and moderate assist for turning his trunk area, this is an improvement from last week. He is minimal assist for getting in and out of the bed. He is moderate assist for standing and pivoting. With Occupational therapy, he is moderate assist for bathing his upper body, and supervision for washing his face and grooming. He is moderate assist for lower body bathing, and for doing his modified toileting he is total assist for cleaning. He is minimal assist for doing his modified transfers, where he grabs the hand rail and pulls himself to a standing position. With Speech therapy he has been upgraded to Mechanical soft diet, he is now on the Lopez water protocol and doing very well. His vision attention to his left side is improving, he still requires cues to look to his left. With nursing, he is doing well Bp is stable, lungs remain clear. Having some issues with frequent urination and urgency, along with some mild to moderate urinary retention. Will start him on Flomax and obtain a UA. Also having a great deal of constipation will change his Miralax to daily and add a Fentanyl patch to decrease the amount of Narcotics he is requiring for pain management. He has a followup appointment today with his Neurosurgeon. Will re-team him next week. - Physical Exam General: Alert, Oriented x3, Cooperative HEENT: Atraumatic, PERRLA, EOMI, Normocephalic Neck: Supple, No JVD, Negative Carotid Bruits Lungs: Clear to auscultation, Normal air movement Cardiovascular: Regular rate, No murmurs Abdomen: Bowel Sounds Present, Soft, Non Tender Extremities: No edema, Capillary Refill Less than 3 Seconds Skin: No rashes, No breakdown Musculoskeletal: No Tenderness to Palpation of Joints or Extremities Neurological: Cranial nerves II-XII grossly intact Psych/Mental Status: Normal Affect, Appropriate, Alert and oriented to time, place, person, mood and affect Vital Signs Temp Pulse Resp BP Pulse Ox 97.8 F 74 20 H 138/87 H 92 04/03/18 07:30 04/03/18 07:36 04/03/18 07:30 04/03/18 07:36 04/03/18 07:30 Oxygen Delivery Method Room Air Weight: 62.7 kg Body Mass Index (BMI) 18.3 Intake and Output for Last 24 Hours 04/01/18 04/02/18 04/03/18 23:59 23:59 23:59 Intake Total 1260 / 1260 1150 / 1150 360 / 360 Output Total 800 / 800 1210 / 1210 Balance 460 / 460 -60 / -60 360 / 360 Active Medications Acetaminophen (Tylenol) 650 mg PO Q6H PRN PRN PRN Reason: Mild Pain (0-3/10)/Headache Last Admin: 04/01/18 08:41 Dose: 650 mg Acetylcysteine (Mucomyst) 400 mg INHALATION Q6H.RT PRN PRN Reason: sob/wheezing Albuterol/Ipratropium (Duoneb) 3 ml INHALATION Q4H.RT PRN PRN Reason: SOB &/OR WHEEZING Aspirin (Aspirin, Baby) 81 mg PO DAILY@0800 [facility] Last Admin: 04/03/18 07:35 Dose: 81 mg Baclofen (Lioresal) 10 mg PO TID [facility] Last Admin: 04/03/18 06:29 Dose: 10 mg Bisacodyl (Dulcolax) 10 mg RECTAL .PRN X 1 PRN PRN Reason: Constipation Last Admin: 04/02/18 14:39 Dose: 10 mg Buspirone HCl (Buspar) 10 mg PO BID [facility] Last Admin: 04/03/18 07:35 Dose: 10 mg Calamine/Phenol (Calmoseptine Ointment) 1 applic TOPICAL 0600,2200 [facility] PRN Reason: Protocol Last Admin: 04/03/18 06:29 Dose: 1 applicatio Enoxaparin Sodium (Lovenox) 40 mg SC DAILY@0600 [facility] Last Admin: 04/03/18 06:29 Dose: 40 mg Fentanyl (Duragesic Patch) 25 mcg TRANSDERM. Q3D [facility] Lacosamide (Vimpat) 200 mg PO BID [facility] Last Admin: 04/02/18 22:56 Dose: 200 mg Levetiracetam (Keppra Tablet) 1,000 mg PO BID [facility] Last Admin: 04/03/18 07:36 Dose: 1,000 mg Lidocaine (Lidoderm Patch) 1 patch TOPICAL DAILY [facility] PRN Reason: Protocol Last Admin: 04/02/18 08:24 Dose: 1 patch Loratadine (Claritin) 10 mg PO DAILY [facility] Last Admin: 04/03/18 07:36 Dose: 10 mg Magnesium Hydroxide (Milk Of Magnesia) 30 ml PO .PRN X 1 PRN PRN Reason: Constipation Last Admin: 04/02/18 20:49 Dose: 30 ml Melatonin (Melatonin) 3 mg PO QHS [facility] Last Admin: 04/02/18 22:53 Dose: 3 mg Methocarbamol (Methocarbamol) 750 mg PO TID PRN PRN Reason: MUSCLE SPASM Last Admin: 03/19/18 14:54 Dose: 750 mg Metoprolol Tartrate (Lopressor (Beta Jose Juan)) 25 mg PO BID [facility] Last Admin: 04/03/18 07:36 Dose: 25 mg Ondansetron HCl (Zofran Odt) 8 mg PO Q8H PRN PRN PRN Reason: NAUSEA/VOMITING Oxycodone HCl (Oxyir) 5 mg PO Q6H PRN PRN PRN Reason: SEVERE PAIN (6-10/10) Last Admin: 04/03/18 06:28 Dose: 5 mg Pantoprazole Sodium (Protonix) 40 mg PO DAILY [facility] Last Admin: 04/03/18 07:36 Dose: 40 mg Polyethylene Glycol (Miralax) 17 gm PO DAILY PRN PRN Reason: Constipation Last Admin: 04/01/18 15:39 Dose: 17 gm Quetiapine Fumarate (Seroquel) 12.5 mg PO QHS [facility] Last Admin: 04/02/18 22:52 Dose: 12.5 mg Senna/Docusate Sodium (Senokot-S, Daija-Colace) 1 tablet PO BID [facility] Last Admin: 04/03/18 07:37 Dose: 1 tablet Tamsulosin HCl (Flomax) 0.4 mg PO DAILY@1730 [facility] Venlafaxine HCl (Effexor) 75 mg PO BID [facility] Last Admin: 04/03/18 07:36 Dose: 75 mg Medical Necessity - Tobacco Use Smoking Status: Former smoker Tobacco Use: Non-smoker Assessment/Plan All Active Problems (This Medical Record has been edited. Action required.) Aortic dissection (Acute) Acute right MCA stroke (Acute) Left hemiplegia (Acute) Acute kidney injury (Acute) Seizure disorder (Acute) Dysphagia (Acute) Vocal cord paralysis (Acute) Dysphagia (Acute) Debility due to pain, complex hospitalization including due to aneurysm of his aorta requiring a decompressive craniotomy, initially recovered but had a large right sided subdural hematoma which has remained stable and has not required further craniotomy or intervention. Now presents back to the rehab unit for rehabilitation so that he can return home. Plan: - Physical therapy for gait and balance - Occupational Therapy for ADLs - Speech therapy for a aphasia and dysphasia - As needed analgesics - Bowel protocol - DVT prophylaxis: Lovenox - Seizure prophylaxis with Keppra and Vimpat - PEG tube: Await speech therapy recommendations but if he is taking 100% of his p.o. intake we will hold his tube feeds. 03/20: No longer receiving any tube feeds. 03/21: Consider removing PEG tube in a few weeks if it is no longer in use. - Frequency, and urgency on urination => obtain UA - Urine retention start low dose of Flomax 0.4mg - Pain => Fentanyl patch 25mcq
[2018-04-03] MEDS: Lacosamide 100 MG Tablet 200 MG PO ×2 (10:26→23:25)
[2018-04-03] MEDS: fentaNYL 25 MCG Patch TRANSDERM. (10:26)
[2018-04-03] MEDS: Lidocaine 5% Patch 1 PATCH TOPICAL (10:27)
[2018-04-03] MEDS: Tamsulosin HCl 0.4 MG Capsule PO (10:28)
--- NOTE | 2018-04-03 11:36 | NURSING ---
pt left floor for outside appt
[2018-04-03 11:37] VITALS: BMI 18.3
[2018-04-03 13:20] LABS: Color, Urine Yellow (Yellow); Glucose, Dipstick Normal (Normal); Ketone-Dipstick Negative (Negative); Leukocyte Esterase-Dipstick 25 /ul (Negative); Nitrite-Dipstick Negative (Negative); Occult Blood-Urine 25 /ul (Negative); Protein-Dipstick 15 mg/dl (Negative); Specific Gravity, Urine 1.015 (1.002-1.030); Urine Bilirubin Dipstick Negative (Negative); Urine Clarity Sl. Cloudy (Clear); Urine Urobilinogen Normal (Normal)
--- NOTE | 2018-04-03 14:18 | CASEMGMT ---
Team meeting held. Patient present as well as patient family. No discharge date set at this time. Patient to continue with further care and treatment on the Inpatient Rehab Unit at this time. Patient plans to discharge to home with spouse at time of discharge. Patient with insurance update due on 04/04/18 and aware that continued stay approval is not guaranteed. Support given. Will continue to follow. Guillermina PANTOJA, TOOL GRINDER SET UP OPERATOR GEAR
--- NOTE | 2018-04-03 16:39 | NURSING ---
pt returned from appt, stable condition.
[2018-04-03 18:18] VITALS: BP 107/70; PULSE 68; RESP 16; TEMP 37; O2SAT 93
[2018-04-03 18:48] LABS: Mucous, Urine 0 SEEN /hpf (<or=2+)
[2018-04-03 19:40] LABS: Color, Urine Yellow (Yellow); Glucose, Dipstick NEGATIVE (Normal); Ketone-Dipstick Negative (Negative); Leukocyte Esterase-Dipstick 25 /ul (Negative); Nitrite-Dipstick Negative (Negative); Occult Blood-Urine 25 /ul (Negative); Protein-Dipstick 15 mg/dl (Negative); Specific Gravity, Urine 1.015 (1.002-1.030); Urine Bilirubin Dipstick Negative (Negative); Urine Clarity Sl Cldy (Clear); Urine Urobilinogen Normal (Normal)
[2018-04-03 19:41] LABS: Red Blood Cells-Urine 0-5 SEEN /hpf (0-5); Squamous Epithelial Cells - UA 0-5 SEEN /hpf (0-5); White Blood Cells 0-5 SEEN /hpf (0-5)
[2018-04-03 19:42] LABS: Bacteria 4+ /hpf (None Seen); Calcium Oxalate Crystals Ur 1+ /hpf (<or=2+)
[2018-04-03 23:23] VITALS: BP 113/56; PULSE 76
[2018-04-03] MEDS: QUEtiapine 25 MG Tablet 12.5 MG PO (23:25)
[2018-04-03] MEDS: MELATONIN 3 MG TABLET PO (23:26)
[2018-04-03 23:27] VITALS: BP 113/56; PULSE 76
[2018-04-03] MEDS: Acetaminophen 325 MG Tablet 650 MG PO (23:28)
[2018-04-04] MEDS: oxyCODONE 5 MG Tablet PO ×2 (04:58→22:04)
[2018-04-04] MEDS: Baclofen 10 MG Tablet PO ×3 (04:59→21:55)
[2018-04-04] MEDS: Enoxaparin 40 MG/0.4 ML Syringe SC (04:59)
[2018-04-04] MEDS: Menthol/Lanolin/Calamine/Znox 113 GM Tube 1 APPLIC TOPICAL ×2 (04:59→21:56)
[2018-04-04 08:14] VITALS: BP 102/76; PULSE 87; RESP 18; TEMP 36.4; O2SAT 93
[2018-04-04 08:16] VITALS: BP 102/76; PULSE 87
[2018-04-04] MEDS: Venlafaxine HCl 75 MG Tablet PO ×2 (08:24→21:56)
[2018-04-04] MEDS: busPIRone 5 MG Tablet 10 MG PO ×2 (08:24→21:56)
[2018-04-04] MEDS: levETIRAcetam 1,000 MG Tablet 1000 MG PO ×2 (08:24→21:55)
[2018-04-04] MEDS: Senna/Docusate Sodium 1 Tablet PO ×2 (08:24→21:55)
[2018-04-04] MEDS: Loratadine 10 MG Tablet PO (08:24)
[2018-04-04] MEDS: Pantoprazole Sodium 40 MG Tablet PO (08:24)
[2018-04-04] MEDS: Aspirin 81 MG TAB.CHEW PO (08:25)
--- NOTE | 2018-04-04 09:26 | PCM.PN.NEU ---
Subjective: Patient seen and examined. No new complaints. Tolerating therapy. Pain is well controlled on the Fentanyl patch. Urinalysis showed 4+ bacteria, pending culture. Start Cipro 500mg BID x7days. - Physical Exam General: Alert, Oriented x3, Cooperative HEENT: Atraumatic, PERRLA, EOMI, Normocephalic Neck: Supple, No JVD, Negative Carotid Bruits Lungs: Clear to auscultation, Normal air movement Cardiovascular: Regular rate, No murmurs Abdomen: Bowel Sounds Present, Soft, Non Tender Extremities: No edema, Capillary Refill Less than 3 Seconds Skin: No rashes, No breakdown Musculoskeletal: No Tenderness to Palpation of Joints or Extremities Neurological: Cranial nerves II-XII grossly intact Psych/Mental Status: Normal Affect, Appropriate, Alert and oriented to time, place, person, mood and affect Vital Signs Temp Pulse Resp BP Pulse Ox 97.5 F L 87 18 102/76 93 04/04/18 08:14 04/04/18 08:16 04/04/18 08:14 04/04/18 08:16 04/04/18 08:14 Oxygen Delivery Method Room Air Weight: 62.9 kg Body Mass Index (BMI) 18.3 Intake and Output for Last 24 Hours 04/02/18 04/03/18 04/04/18 23:59 23:59 23:59 Intake Total 1150 / 1150 780 / 780 Output Total 1210 / 1210 300 / 300 150 / 150 Balance -60 / -60 480 / 480 -150 / -150 Laboratory Tests Past 24 Hrs 04/03/18 04/03/18 11:20 11:20 Urine Color Yellow Yellow Urine Clarity Sl. Cloudy Sl Cldy Urine pH 8.0 8.0 Ur Specific [place] 1.015 1.015 Urine Protein 15 H 15 H Urine Glucose (UA) Normal NEGATIVE Urine Ketones Negative Negative Urine Occult Blood 25 H 25 H Urine Nitrite Negative Negative Urine Bilirubin Negative Negative Urine Urobilinogen Normal Normal Ur Leukocyte Esterase 25 H 25 H Urine RBC 0-5 SEEN Urine WBC 0-5 SEEN Ur Squamous Epith Cells 0-5 SEEN Calcium Oxalate Crystal 1+ Urine Bacteria 4+ Urine Mucus 0 SEEN Active Medications Acetaminophen (Tylenol) 650 mg PO Q6H PRN PRN PRN Reason: Mild Pain (0-3/10)/Headache Last Admin: 04/03/18 23:28 Dose: 650 mg Acetylcysteine (Mucomyst) 400 mg INHALATION Q6H.RT PRN PRN Reason: sob/wheezing Albuterol/Ipratropium (Duoneb) 3 ml INHALATION Q4H.RT PRN PRN Reason: SOB &/OR WHEEZING Aspirin (Aspirin, Baby) 81 mg PO DAILY@0800 [facility] Last Admin: 04/04/18 08:25 Dose: 81 mg Baclofen (Lioresal) 10 mg PO TID [facility] Last Admin: 04/04/18 04:59 Dose: 10 mg Bisacodyl (Dulcolax) 10 mg RECTAL .PRN X 1 PRN PRN Reason: Constipation Last Admin: 04/02/18 14:39 Dose: 10 mg Buspirone HCl (Buspar) 10 mg PO BID [facility] Last Admin: 04/04/18 08:24 Dose: 10 mg Calamine/Phenol (Calmoseptine Ointment) 1 applic TOPICAL 0600,2200 [facility] PRN Reason: Protocol Last Admin: 04/04/18 04:59 Dose: 1 applicatio Enoxaparin Sodium (Lovenox) 40 mg SC DAILY@0600 [facility] Last Admin: 04/04/18 04:59 Dose: 40 mg Fentanyl (Duragesic Patch) 25 mcg TRANSDERM. Q3D [facility] Last Admin: 04/03/18 10:26 Dose: 25 mcg Lacosamide (Vimpat) 200 mg PO BID [facility] Last Admin: 04/03/18 23:25 Dose: 200 mg Levetiracetam (Keppra Tablet) 1,000 mg PO BID [facility] Last Admin: 04/04/18 08:24 Dose: 1,000 mg Lidocaine (Lidoderm Patch) 1 patch TOPICAL DAILY [facility] PRN Reason: Protocol Last Admin: 04/03/18 10:27 Dose: 1 patch Loratadine (Claritin) 10 mg PO DAILY [facility] Last Admin: 04/04/18 08:24 Dose: 10 mg Magnesium Hydroxide (Milk Of Magnesia) 30 ml PO .PRN X 1 PRN PRN Reason: Constipation Last Admin: 04/02/18 20:49 Dose: 30 ml Melatonin (Melatonin) 3 mg PO QHS [facility] [place] Last Admin: 04/03/18 23:26 Dose: 3 mg Methocarbamol (Methocarbamol) 750 mg PO TID PRN PRN Reason: MUSCLE SPASM Last Admin: 03/19/18 14:54 Dose: 750 mg Metoprolol Tartrate (Lopressor (Beta Jose Juan)) 25 mg PO BID [facility] Last Admin: 04/04/18 08:16 Dose: Not Given Ondansetron HCl (Zofran Odt) 8 mg PO Q8H PRN PRN PRN Reason: NAUSEA/VOMITING Oxycodone HCl (Oxyir) 5 mg PO Q6H PRN PRN PRN Reason: SEVERE PAIN (6-10/10) Last Admin: 04/04/18 04:58 Dose: 5 mg Pantoprazole Sodium (Protonix) 40 mg PO DAILY [facility] Last Admin: 04/04/18 08:24 Dose: 40 mg Polyethylene Glycol (Miralax) 17 gm PO DAILY [facility] Quetiapine Fumarate (Seroquel) 12.5 mg PO QHS [facility] [place] Last Admin: 04/03/18 23:25 Dose: 12.5 mg Senna/Docusate Sodium (Senokot-S, Daija-Colace) 1 tablet PO BID [facility] [place] Last Admin: 04/04/18 08:24 Dose: 1 tablet Tamsulosin HCl (Flomax) 0.4 mg PO DAILY@1730 [facility] Last Admin: 04/03/18 10:28 Dose: 0.4 mg Venlafaxine HCl (Effexor) 75 mg PO BID [facility] Last Admin: 04/04/18 08:24 Dose: 75 mg Medical Necessity - Tobacco Use Smoking Status: Former smoker Tobacco Use: Non-smoker Assessment/Plan All Active Problems (This Medical Record has been edited. Action required.) Aortic dissection (Acute) Acute right MCA stroke (Acute) Left hemiplegia (Acute) Acute kidney injury (Acute) Seizure disorder (Acute) Dysphagia (Acute) Vocal cord paralysis (Acute) Dysphagia (Acute) Debility due to pain, complex hospitalization including due to aneurysm of his aorta requiring a decompressive craniotomy, initially recovered but had a large right sided subdural hematoma which has remained stable and has not required further craniotomy or intervention. Now presents back to the rehab unit for rehabilitation so that he can return home. Plan: - Physical therapy for gait and balance - Occupational Therapy for ADLs - Speech therapy for a aphasia and dysphasia - As needed analgesics - Bowel protocol - DVT prophylaxis: Lovenox - Seizure prophylaxis with Keppra and Vimpat - PEG tube: Await speech therapy recommendations but if he is taking 100% of his p.o. intake we will hold his tube feeds. 03/20: No longer receiving any tube feeds. 03/21: Consider removing PEG tube in a few weeks if it is no longer in use. - Frequency, and urgency on urination => UA was positive for bacteria, obtain culture for sensitivity will start Cipro 500mg BID X 7 days - Urine retention start low dose of Flomax 0.4mg - Pain => Fentanyl patch 25mcq
--- NOTE | 2018-04-04 09:55 | EKG12_ITS ---
Test Reason : NEW MED START Blood Pressure : / mmHG Vent. Rate : 086 BPM Atrial Rate : 086 BPM P-R Int : 128 ms QRS Dur : 082 ms QT Int : 372 ms P-R-T Axes : 080 022 086 degrees QTc Int : 445 ms Normal sinus rhythm Nonspecific T wave abnormality Abnormal ECG When compared with ECG of 06-OCT-2017 16:04, Nonspecific T wave abnormality now evident in Lateral leads Confirmed by BAM NAQVI, MARKEL ([id number]), editor publications PUSHPA GONZALEZ ([id number]) on 04/11/2018 1:33:52 PM Referred By: DEMARCUS Confirmed By:MARKEL KUHN MD
[2018-04-04] MEDS: Lidocaine 5% Patch 1 PATCH TOPICAL (10:14)
[2018-04-04] MEDS: Lacosamide 100 MG Tablet 200 MG PO ×2 (10:14→21:56)
[2018-04-04] MEDS: Polyethylene Glycol 3350 17 GM PACKET PO (10:15)
[2018-04-04] MEDS: Ciprofloxacin 500 MG Tablet PO ×2 (11:03→21:56)
--- NOTE | 2018-04-04 11:03 | CASEMGMT ---
Insurance Clinical information sent. Pending continued stay approval at this time. Auth#[id number] Guillermina PANTOJA, PRESSING MACHINE OPERATOR
[2018-04-04 14:58] VITALS: BMI 18.3
--- NOTE | 2018-04-04 17:22 | CASEMGMT ---
Insurance Continued stay approved with next update due on 04/11/18. Auth#[id number] Guillermina PANTOJA, VALVE STEAMER
[2018-04-04] MEDS: Tamsulosin HCl 0.4 MG Capsule PO (17:27)
--- NOTE | 2018-04-04 18:44 | PCM.PN.HOSP ---
Subjective: Patient seen and examined. Patient sitting in the chair. Denies new symptoms of chest pain, shortness of breath or change in mental status. U/A consistent with LE, nitrite neg Vitals/I&O's: Vital Signs Temp Pulse Resp BP Pulse Ox 97.5 F L 87 18 102/76 93 04/04/18 08:14 04/04/18 08:16 04/04/18 08:14 04/04/18 08:16 04/04/18 08:14 Oxygen Delivery Method Room Air Weight: 138 lb 10.732 oz Body Mass Index (BMI) 18.3 Intake and Output for Last 24 Hours 04/02/18 04/03/18 04/04/18 23:59 23:59 23:59 Intake Total 1150 / 1150 780 / 780 840 / 840 Output Total 1210 / 1210 300 / 300 450 / 450 Balance -60 / -60 480 / 480 390 / 390 General: Alert, Oriented x3, Cooperative HEENT: Atraumatic, PERRLA, EOMI, Normocephalic Neck: Supple, No JVD, Negative Carotid Bruits Lungs: Diminished, Rhonchi Cardiovascular: Regular rate, Regular Rhythm, Normal S1, Normal S2, No murmurs Abdomen: Bowel Sounds Present, Soft, Non Tender Extremities: No edema, Capillary Refill Less than 3 Seconds Skin: No rashes, No breakdown Musculoskeletal: No Tenderness to Palpation of Joints or Extremities Neurological: Cranial nerves II-XII grossly intact Psych/Mental Status: Normal Affect, Appropriate Laboratory Results 04/03/18 11:20: Urine Color Yellow, Urine Clarity Sl Cldy, Urine pH 8.0, Ur Specific [place] 1.015, Urine Protein 15 H, Urine Glucose (UA) NEGATIVE, Urine Ketones Negative, Urine Occult Blood 25 H, Urine Nitrite Negative, Urine Bilirubin Negative, Urine Urobilinogen Normal, Ur Leukocyte Esterase 25 H, Urine RBC 0-5 SEEN, Urine WBC 0-5 SEEN, Ur Squamous Epith Cells 0-5 SEEN, Calcium Oxalate Crystal 1+, Urine Bacteria 4+, Urine Mucus 0 SEEN Current Medications Acetaminophen (Tylenol) 650 mg PO Q6H PRN PRN PRN Reason: Mild Pain (0-3/10)/Headache Last Admin: 04/03/18 23:28 Dose: 650 mg Acetylcysteine (Mucomyst) 400 mg INHALATION Q6H.RT PRN PRN Reason: sob/wheezing Albuterol/Ipratropium (Duoneb) 3 ml INHALATION Q4H.RT PRN PRN Reason: SOB &/OR WHEEZING Aspirin (Aspirin, Baby) 81 mg PO DAILY@0800 [facility] Last Admin: 04/04/18 08:25 Dose: 81 mg Baclofen (Lioresal) 10 mg PO TID [facility] Last Admin: 04/04/18 14:02 Dose: 10 mg Bisacodyl (Dulcolax) 10 mg RECTAL .PRN X 1 PRN PRN Reason: Constipation Last Admin: 04/02/18 14:39 Dose: 10 mg Buspirone HCl (Buspar) 10 mg PO BID [facility] Last Admin: 04/04/18 08:24 Dose: 10 mg Calamine/Phenol (Calmoseptine Ointment) 1 applic TOPICAL 0600,2200 [facility] PRN Reason: Protocol Last Admin: 04/04/18 04:59 Dose: 1 applicatio Ciprofloxacin HCl (Cipro) 500 mg PO BID [facility] Stop: 04/10/18 22:01 Last Admin: 04/04/18 11:03 Dose: 500 mg Enoxaparin Sodium (Lovenox) 40 mg SC DAILY@0600 [facility] Last Admin: 04/04/18 04:59 Dose: 40 mg Fentanyl (Duragesic Patch) 12 mcg TRANSDERM. Q3D [facility] Lacosamide (Vimpat) 200 mg PO BID [facility] Last Admin: 04/04/18 10:14 Dose: 200 mg Levetiracetam (Keppra Tablet) 1,000 mg PO BID [facility] Last Admin: 04/04/18 08:24 Dose: 1,000 mg Lidocaine (Lidoderm Patch) 1 patch TOPICAL DAILY [facility] PRN Reason: Protocol Last Admin: 04/04/18 10:14 Dose: 1 patch Loratadine (Claritin) 10 mg PO DAILY [facility] Last Admin: 04/04/18 08:24 Dose: 10 mg Magnesium Hydroxide (Milk Of Magnesia) 30 ml PO .PRN X 1 PRN PRN Reason: Constipation Last Admin: 04/02/18 20:49 Dose: 30 ml Melatonin (Melatonin) 3 mg PO QHS [facility] Last Admin: 04/03/18 23:26 Dose: 3 mg Methocarbamol (Methocarbamol) 750 mg PO TID PRN PRN Reason: MUSCLE SPASM Last Admin: 03/19/18 14:54 Dose: 750 mg Metoprolol Tartrate (Lopressor (Beta Jose Juan)) 25 mg PO BID [facility] Last Admin: 04/04/18 08:16 Dose: Not Given Ondansetron HCl (Zofran Odt) 8 mg PO Q8H PRN PRN PRN Reason: NAUSEA/VOMITING Oxycodone HCl (Oxyir) 5 mg PO Q6H PRN PRN PRN Reason: SEVERE PAIN (6-10/10) Last Admin: 04/04/18 04:58 Dose: 5 mg Pantoprazole Sodium (Protonix) 40 mg PO DAILY [facility] Last Admin: 04/04/18 08:24 Dose: 40 mg Polyethylene Glycol (Miralax) 17 gm PO DAILY [facility] Last Admin: 04/04/18 10:15 Dose: 17 gm Quetiapine Fumarate (Seroquel) 12.5 mg PO QHS [facility] Last Admin: 04/03/18 23:25 Dose: 12.5 mg Senna/Docusate Sodium (Senokot-S, Daija-Colace) 1 tablet PO BID [facility] Last Admin: 04/04/18 08:24 Dose: 1 tablet Tamsulosin HCl (Flomax) 0.4 mg PO DAILY@1730 [facility] Last Admin: 04/04/18 17:27 Dose: 0.4 mg Venlafaxine HCl (Effexor) 75 mg PO BID [facility] Last Admin: 04/04/18 08:24 Dose: 75 mg Medical Necessity - Tobacco Use Smoking Status: Former smoker Tobacco Use: Non-smoker Assessment/Plan All Active Problems (This Medical Record has been edited. Action required.) Aortic dissection (Acute) Acute right MCA stroke (Acute) Left hemiplegia (Acute) Acute kidney injury (Acute) Seizure disorder (Acute) Dysphagia (Acute) Vocal cord paralysis (Acute) Dysphagia (Acute) The patient is a 52 year old male with recent complicated past medical history including aortic dissection for which patient underwent surgery at [facility] which was complicated by a right MCA stroke in September 2017 status post decompressive craniectomy in September 2017 followed by vocal cord paralysis managed by ENT and subsequently had pneumonia and respiratory failure resulting into intubation in December 2017 and was discharged to TCU on 02/07/2018. Patient had PEG tube placement on 02/13/2018 and then was readmitted to [facility] on 03/17/2013 for cranioplasty and subsequently transferred to the inpatient rehab unit. On 03/14/2018, CT head was done and showed large right-sided subdural fluid and gas collection measuring 9.4 cm craniocaudal, 11.7 cm AP, 4.7 cm greatest depth of lenticular shaped collection. About one third filled with fluid. No acute blood. There is also subgaleal gas overlying the right craniectomy likely complicating with subdural pneumocephalus. There is midline shift of 13 mm leftward at the level of septum pellucidum. No evidence of osman herniation left cerebral hemisphere exhibits no acute process. In view of this new CT finding of midline shift and large right-sided subdural pneumocephalus, the patient was transferred to [facility]. There he was monitored in neuro ICU and managed conservatively and transferred back to rehab on 03/18/2018. 1. Physical debility due to right MCA stroke s/p decompressive craniectomy and cranioplasty PT/OT on board awaiting baclofen pump placement for spasticity of LLE. 2. Acute right MCA stroke s/p decompressive craniectomy stable Gram-positive cocci possible enterococcus complicated UTI, possible neurogenic bladder with history of a stroke: Urine culture shows more than 100,000 CFU, possible neurogenic bladder: Patient was started on Cipro 500 mg twice daily but since it is enterococcus and supposedly resistant, change antibiotic to amoxicillin to full sensitivities report is out. On Flomax. Bladder scan every 6 hourly to look for postvoid residual and if needed straight cath. 3. Constipation: resolved. on prn enemas and Miralax. 4. Aortic dissection status post repair: Stable 5. Seizure Disorder: Stable. On Keppra. 6. Vocal cord paralysis: Speech therapy on board. Management as per ENT. 7. Hypertension: controlled. On metoprolol 8. Dysphagia: s/p PEG tube placement. also able to take PO food. 9. Depression. On effexor and seroquel 10. DVT prophylaxis: lovenox This note was generated with [employer] software. It may contain incorrect words, spelling, and punctuation that were not noted in checking the note before signing. Code Visit Inpatient E&M: 44169 Subs Hosp L2
[2018-04-04 19:06] VITALS: BP 117/68; PULSE 92; RESP 16; TEMP 36.6; O2SAT 93
[2018-04-04] MEDS: QUEtiapine 25 MG Tablet 12.5 MG PO (21:53)
[2018-04-04] MEDS: MELATONIN 3 MG TABLET PO (21:55)
[2018-04-04] MEDS: LORazepam 0.5 MG Tablet PO (21:56)
[2018-04-05] MEDS: Baclofen 10 MG Tablet PO ×3 (06:58→21:56)
[2018-04-05] MEDS: Enoxaparin 40 MG/0.4 ML Syringe SC (06:58)
[2018-04-05] MEDS: Menthol/Lanolin/Calamine/Znox 113 GM Tube 1 APPLIC TOPICAL ×2 (07:13→21:58)
[2018-04-05 07:23] VITALS: BP 123/83; PULSE 85; RESP 18; TEMP 36.6; O2SAT 95
--- NOTE | 2018-04-05 08:00 | EKG12_ITS ---
Test Reason : DRUG INTERACTION Blood Pressure : / mmHG Vent. Rate : 091 BPM Atrial Rate : 091 BPM P-R Int : 106 ms QRS Dur : 078 ms QT Int : 436 ms P-R-T Axes : 046 030 049 degrees QTc Int : 536 ms Sinus rhythm with short SD Nonspecific ST and T wave abnormality Prolonged QT Abnormal ECG When compared with ECG of 04-APR-2018 10:31, MANUAL COMPARISON REQUIRED, DATA IS UNCONFIRMED Confirmed by BAM NAQVI, MARKEL ([id number]), photograph editor PUSHPA GONZALEZ ([id number]) on 04/11/2018 1:33:38 PM Referred By: EDY Confirmed By:MARKEL KUHN MD
[2018-04-05] MEDS: levETIRAcetam 1,000 MG Tablet 1000 MG PO ×2 (08:05→21:56)
[2018-04-05] MEDS: Aspirin 81 MG TAB.CHEW PO (08:05)
[2018-04-05] MEDS: Loratadine 10 MG Tablet PO (08:05)
[2018-04-05] MEDS: Venlafaxine HCl 75 MG Tablet PO ×2 (08:05→21:56)
[2018-04-05] MEDS: Pantoprazole Sodium 40 MG Tablet PO (08:05)
[2018-04-05] MEDS: Ciprofloxacin 500 MG Tablet PO (08:05)
[2018-04-05] MEDS: busPIRone 5 MG Tablet 10 MG PO ×2 (08:05→21:59)
[2018-04-05 08:13] VITALS: PULSE 85
[2018-04-05] MEDS: Metoprolol Tartrate 25 MG Tablet PO (08:13)
[2018-04-05] MEDS: Acetaminophen 325 MG Tablet 650 MG PO ×3 (08:15→21:54)
[2018-04-05] MEDS: Lidocaine 5% Patch 1 PATCH TOPICAL (08:28)
[2018-04-05] MEDS: Lacosamide 100 MG Tablet 200 MG PO ×2 (11:42→21:57)
[2018-04-05] MEDS: AMOXICILLIN 500 MG CAPSULE PO ×2 (12:22→21:56)
[2018-04-05 13:00] VITALS: BP 100/62; PULSE 72; RESP 18; TEMP 36.7; O2SAT 97
--- NOTE | 2018-04-05 14:20 | NURSING ---
[facility]. [facility] here for transport. Stacey LOZA aware of urine culture, Dr. Talley ordered new ATB and given with no signs of adverse reaction. Patient has been tired today, fluids encourage and taken well, denies any dysuria. Vs WNL.
[2018-04-05 15:50] VITALS: BMI 18.3
[2018-04-05 21:44] VITALS: BP 99/56; PULSE 81; RESP 16; TEMP 36.6; O2SAT 92
[2018-04-05 21:55] VITALS: BP 99/56; PULSE 80
[2018-04-05] MEDS: Tamsulosin HCl 0.4 MG Capsule PO (21:56)
[2018-04-05] MEDS: QUEtiapine 25 MG Tablet 12.5 MG PO (21:57)
[2018-04-05] MEDS: Senna/Docusate Sodium 1 Tablet PO (21:57)
[2018-04-05] MEDS: MELATONIN 3 MG TABLET PO (21:57)
--- NOTE | 2018-04-05 23:08 | NURSING ---
Returns from daughters wedding at 2124. States had a really good time. In good spirits. Acknowleges he is tired. Assisted to bed, assessed, med given, peg and oral care given.
[2018-04-06] MEDS: Baclofen 10 MG Tablet PO ×3 (06:41→21:19)
[2018-04-06] MEDS: Enoxaparin 40 MG/0.4 ML Syringe SC (06:41)
[2018-04-06] MEDS: Menthol/Lanolin/Calamine/Znox 113 GM Tube 1 APPLIC TOPICAL ×2 (06:41→21:19)
[2018-04-06] MEDS: AMOXICILLIN 500 MG CAPSULE PO ×3 (06:41→21:18)
[2018-04-06] MEDS: Acetaminophen 325 MG Tablet 650 MG PO (06:44)
[2018-04-06 09:18] VITALS: BP 123/82; PULSE 71; RESP 17; TEMP 36.7; O2SAT 95
[2018-04-06] MEDS: Loratadine 10 MG Tablet PO (09:27)
[2018-04-06] MEDS: Pantoprazole Sodium 40 MG Tablet PO (09:27)
[2018-04-06] MEDS: Senna/Docusate Sodium 1 Tablet PO ×2 (09:27→21:20)
[2018-04-06] MEDS: Polyethylene Glycol 3350 17 GM PACKET PO (09:27)
[2018-04-06] MEDS: levETIRAcetam 1,000 MG Tablet 1000 MG PO ×2 (09:27→21:19)
[2018-04-06] MEDS: busPIRone 5 MG Tablet 10 MG PO ×2 (09:27→21:18)
[2018-04-06] MEDS: Venlafaxine HCl 75 MG Tablet PO ×2 (09:27→21:19)
[2018-04-06] MEDS: Aspirin 81 MG TAB.CHEW PO (09:27)
[2018-04-06] MEDS: Lacosamide 100 MG Tablet 200 MG PO ×2 (09:28→21:20)
[2018-04-06] MEDS: Lidocaine 5% Patch 1 PATCH TOPICAL (09:29)
[2018-04-06 09:30] VITALS: PULSE 72
[2018-04-06] MEDS: Metoprolol Tartrate 25 MG Tablet PO (09:30)
[2018-04-06] MEDS: Magnesium Hydroxide 30 ML UDC PO (13:36)
--- NOTE | 2018-04-06 15:39 | PCM.PN.HOSP ---
Subjective: Patient had no fever for last 2-3 days. Denies any specific urinary tract symptoms except mild urgency as he cannot hold urine for about 1-2 hours for last 3-4 days. Patient might have been long on Gallego catheter because of protracted hospital course the recent past and therefore probably might have a small bladder. Preliminary urine culture shows Enterococcus faecalis. Vitals/I&O's: Vital Signs Temp Pulse Resp BP Pulse Ox 98.0 F 72 17 123/82 H 95 04/06/18 09:18 04/06/18 09:30 04/06/18 09:18 04/06/18 09:18 04/06/18 09:18 Oxygen Delivery Method Room Air Weight: 138 lb 10.732 oz Body Mass Index (BMI) 18.3 Intake and Output for Last 24 Hours 04/04/18 04/05/18 04/06/18 23:59 23:59 23:59 Intake Total 900 / 900 1280 / 1280 720 / 720 Output Total 450 / 450 800 / 800 650 / 650 Balance 450 / 450 480 / 480 70 / 70 General: Alert, Oriented x3, Cooperative, - - Chronically malnourished HEENT: Atraumatic, PERRLA, EOMI, Normocephalic Neck: Supple, No JVD, Negative Carotid Bruits Lungs: No rhonchi, No wheeze, Diminished Cardiovascular: Regular rate, No murmurs Abdomen: Bowel Sounds Present, Soft, Non Tender, Non-Distended, - - Has PEG tube Extremities: No edema, Capillary Refill Less than 3 Seconds Skin: No rashes, No breakdown Musculoskeletal: No Tenderness to Palpation of Joints or Extremities, Arthritic Changes, Muscle Wasting Neurological: Cranial nerves II-XII grossly intact, - - Left-sided spasticity and contracture and hemiparesis. Speech is low volume and soft. Psych/Mental Status: Normal Affect, Appropriate Microbiology Past 72 Hours 04/03/18 11:20 Urine, Catheterized Urine Culture - Preliminary Enterococcus faecalis Current Medications Acetaminophen (Tylenol) 650 mg PO Q6H PRN PRN PRN Reason: Mild Pain (0-3/10)/Headache Last Admin: 04/06/18 06:44 Dose: 650 mg Acetylcysteine (Mucomyst) 400 mg INHALATION Q6H.RT PRN PRN Reason: sob/wheezing Albuterol/Ipratropium (Duoneb) 3 ml INHALATION Q4H.RT PRN PRN Reason: SOB &/OR WHEEZING Amoxicillin (Amoxil) 500 mg PO Q8 [facility] Last Admin: 04/06/18 14:07 Dose: 500 mg Aspirin (Aspirin, Baby) 81 mg PO DAILY@0800 [facility] Last Admin: 04/06/18 09:27 Dose: 81 mg Baclofen (Lioresal) 10 mg PO TID [facility] Last Admin: 04/06/18 14:07 Dose: 10 mg Bisacodyl (Dulcolax) 10 mg RECTAL .PRN X 1 PRN PRN Reason: Constipation Last Admin: 04/02/18 14:39 Dose: 10 mg Buspirone HCl (Buspar) 10 mg PO BID [facility] Last Admin: 04/06/18 09:27 Dose: 10 mg Calamine/Phenol (Calmoseptine Ointment) 1 applic TOPICAL 0600,2200 [facility] PRN Reason: Protocol Last Admin: 04/06/18 06:41 Dose: 1 applicatio Enoxaparin Sodium (Lovenox) 40 mg SC DAILY@0600 [facility] Last Admin: 04/06/18 06:41 Dose: 40 mg Fentanyl (Duragesic Patch) 12 mcg TRANSDERM. Q3D [facility] Last Admin: 04/04/18 21:54 Dose: 12 mcg Lacosamide (Vimpat) 200 mg PO BID [facility] Last Admin: 04/06/18 09:28 Dose: 200 mg Levetiracetam (Keppra Tablet) 1,000 mg PO BID [facility] Last Admin: 04/06/18 09:27 Dose: 1,000 mg Lidocaine (Lidoderm Patch) 1 patch TOPICAL DAILY [facility] PRN Reason: Protocol Last Admin: 04/06/18 09:29 Dose: 1 patch Loratadine (Claritin) 10 mg PO DAILY [facility] Last Admin: 04/06/18 09:27 Dose: 10 mg Magnesium Hydroxide (Milk Of Magnesia) 30 ml PO .PRN X 1 PRN PRN Reason: Constipation Last Admin: 04/06/18 13:36 Dose: 30 ml Melatonin (Melatonin) 3 mg PO QHS [facility] Last Admin: 04/05/18 21:57 Dose: 3 mg Methocarbamol (Methocarbamol) 750 mg PO TID PRN PRN Reason: MUSCLE SPASM Last Admin: 03/19/18 14:54 Dose: 750 mg Metoprolol Tartrate (Lopressor (Beta Jose Juan)) 25 mg PO BID [facility] Last Admin: 04/06/18 09:30 Dose: 25 mg Ondansetron HCl (Zofran Odt) 8 mg PO Q8H PRN PRN PRN Reason: NAUSEA/VOMITING Oxycodone HCl (Oxyir) 5 mg PO Q6H PRN PRN PRN Reason: SEVERE PAIN (6-10/10) Last Admin: 04/04/18 22:04 Dose: 5 mg Pantoprazole Sodium (Protonix) 40 mg PO DAILY [facility] Last Admin: 04/06/18 09:27 Dose: 40 mg Polyethylene Glycol (Miralax) 17 gm PO DAILY [facility] Last Admin: 04/06/18 09:27 Dose: 17 gm Quetiapine Fumarate (Seroquel) 12.5 mg PO QHS [facility] Last Admin: 04/05/18 21:57 Dose: 12.5 mg Senna/Docusate Sodium (Senokot-S, Daija-Colace) 1 tablet PO BID [facility] Last Admin: 04/06/18 09:27 Dose: 1 tablet Tamsulosin HCl (Flomax) 0.4 mg PO DAILY@1730 [facility] Last Admin: 04/05/18 21:56 Dose: 0.4 mg Venlafaxine HCl (Effexor) 75 mg PO BID [facility] Last Admin: 04/06/18 09:27 Dose: 75 mg Medical Necessity - Tobacco Use Smoking Status: Former smoker Tobacco Use: Non-smoker Assessment/Plan All Active Problems (This Medical Record has been edited. Action required.) Aortic dissection (Acute) Acute right MCA stroke (Acute) Left hemiplegia (Acute) Acute kidney injury (Acute) Seizure disorder (Acute) Dysphagia (Acute) Vocal cord paralysis (Acute) Dysphagia (Acute) The patient is a 52 year old male with recent complicated past medical history including aortic dissection for which patient underwent surgery at [facility] which was complicated by a right MCA stroke in September 2017 status post decompressive craniectomy in September 2017 followed by vocal cord paralysis managed by ENT and subsequently had pneumonia and respiratory failure resulting into intubation in December 2017 and was discharged to TCU on 02/07/2018. Patient had PEG tube placement on 02/13/2018 and then was readmitted to [facility] on 03/17/2013 for cranioplasty and subsequently transferred to the inpatient rehab unit. On 03/14/2018, CT head was done and showed large right-sided subdural fluid and gas collection measuring 9.4 cm craniocaudal, 11.7 cm AP, 4.7 cm greatest depth of lenticular shaped collection. About one third filled with fluid. No acute blood. There is also subgaleal gas overlying the right craniectomy likely complicating with subdural pneumocephalus. There is midline shift of 13 mm leftward at the level of septum pellucidum. No evidence of osman herniation left cerebral hemisphere exhibits no acute process. In view of this new CT finding of midline shift and large right-sided subdural pneumocephalus, the patient was transferred to [facility]. There he was monitored in neuro ICU and managed conservatively and transferred back to rehab on 03/18/2018. 1. Physical debility due to right MCA stroke s/p decompressive craniectomy and cranioplasty PT/OT on board awaiting baclofen pump placement for spasticity of LLE. 2. Acute right MCA stroke s/p decompressive craniectomy stable Gram-positive cocci possible enterococcus complicated UTI, possible neurogenic bladder with history of a stroke: Urine culture shows more than 100,000 CFU, possible neurogenic bladder: Patient was started on Cipro 500 mg twice daily and change antibiotic to amoxicillin. It is sensitive to ampicillin as per culture and sensitivity report. Continue on Flomax. Bladder scan every 6 hourly to look for postvoid residual and if needed straight cath. 3. Constipation: resolved. on prn enemas and Miralax. 4. Aortic dissection status post repair: Stable 5. Seizure Disorder: Stable. On Keppra. 6. Vocal cord paralysis: Speech therapy on board. Management as per ENT. 7. Hypertension: controlled. On metoprolol 8. Dysphagia: s/p PEG tube placement. also able to take PO food. 9. Depression. On effexor and seroquel 10. DVT prophylaxis: lovenox This note was generated with [employer] software. It may contain incorrect words, spelling, and punctuation that were not noted in checking the note before signing. Code Visit Inpatient E&M: 83065 Subs Hosp L2
[2018-04-06 16:28] VITALS: BMI 18.3
[2018-04-06] MEDS: Tamsulosin HCl 0.4 MG Capsule PO (17:57)
[2018-04-06 21:20] VITALS: BP 118/84; PULSE 71
[2018-04-06] MEDS: QUEtiapine 25 MG Tablet 12.5 MG PO (21:20)
[2018-04-06] MEDS: MELATONIN 3 MG TABLET PO (21:20)
[2018-04-06] MEDS: oxyCODONE 5 MG Tablet PO (21:21)
[2018-04-06 21:31] VITALS: BP 118/84; PULSE 71; RESP 18; TEMP 36.7; O2SAT 93
[2018-04-07 00:13] VITALS: BMI 18.3
[2018-04-07] MEDS: Bisacodyl 10 MG Suppository RECTAL (04:52)
[2018-04-07] MEDS: AMOXICILLIN 500 MG CAPSULE PO ×3 (05:00→21:26)
[2018-04-07] MEDS: Menthol/Lanolin/Calamine/Znox 113 GM Tube 1 APPLIC TOPICAL ×2 (05:00→21:30)
[2018-04-07] MEDS: Baclofen 10 MG Tablet PO ×3 (05:00→21:27)
[2018-04-07] MEDS: Enoxaparin 40 MG/0.4 ML Syringe SC (05:00)
--- NOTE | 2018-04-07 06:44 | NURSING ---
Reviewed LPNs fims and handoff
[2018-04-07 10:00] VITALS: BP 105/72; PULSE 77; RESP 18; TEMP 36.6; O2SAT 94
[2018-04-07] MEDS: Pantoprazole Sodium 40 MG Tablet PO (10:45)
[2018-04-07] MEDS: busPIRone 5 MG Tablet 10 MG PO ×2 (10:45→21:27)
[2018-04-07] MEDS: Venlafaxine HCl 75 MG Tablet PO ×2 (10:45→21:26)
[2018-04-07] MEDS: Loratadine 10 MG Tablet PO (10:45)
[2018-04-07] MEDS: Aspirin 81 MG TAB.CHEW PO (10:45)
[2018-04-07] MEDS: Senna/Docusate Sodium 1 Tablet 2 TABLET PO ×2 (10:45→21:26)
[2018-04-07] MEDS: levETIRAcetam 1,000 MG Tablet 1000 MG PO ×2 (10:45→21:27)
--- NOTE | 2018-04-07 10:59 | PN.NEURO_ITS ---
Subjective: Patient seen and examined. 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 Tolerating therapy. - Physical Exam General: Alert, Oriented x3, Cooperative HEENT: Atraumatic, PERRLA, EOMI, Normocephalic Neck: Supple, No JVD, Negative Carotid Bruits Lungs: Clear to auscultation, Normal air movement Cardiovascular: Regular rate, No murmurs Abdomen: Bowel Sounds Present, Soft, Non Tender Extremities: No edema, Capillary Refill Less than 3 Seconds Skin: No rashes, No breakdown Musculoskeletal: No Tenderness to Palpation of Joints or Extremities Neurological: Cranial nerves II-XII grossly intact Psych/Mental Status: Normal Affect, Appropriate, Alert and oriented to time, place, person, mood and affect Vital Signs Temp Pulse Resp BP Pulse Ox 98.0 F 71 18 118/84 H 93 04/06/18 21:31 04/06/18 21:31 04/06/18 21:31 04/06/18 21:31 04/06/18 21:31 Oxygen Delivery Method Room Air Weight: 58.3 kg Body Mass Index (BMI) 18.3 Intake and Output for Last 24 Hours 04/05/18 04/06/18 04/07/18 23:59 23:59 23:59 Intake Total 1280 / 1280 1140 / 1140 360 / 360 Output Total 800 / 800 1025 / 1025 Balance 480 / 480 115 / 115 360 / 360 Microbiology Past 72 Hours 04/03/18 11:20 Urine Culture - Final Urine, Catheterized Vancomycin Resist. E. faecalis Active Medications Acetaminophen (Tylenol) 650 mg PO Q6H PRN PRN PRN Reason: Mild Pain (0-3/10)/Headache Last Admin: 04/06/18 06:44 Dose: 650 mg Acetylcysteine (Mucomyst) 400 mg INHALATION Q6H.RT PRN PRN Reason: sob/wheezing Albuterol/Ipratropium (Duoneb) 3 ml INHALATION Q4H.RT PRN PRN Reason: SOB &/OR WHEEZING Amoxicillin (Amoxil) 500 mg PO Q8 REPLACED BY [facility] Aspirin (Aspirin, Baby) 81 mg PO DAILY@0800 [facility] Last Admin: 04/06/18 09:27 Dose: 81 mg Baclofen (Lioresal) 10 mg PO TID [facility] Last Admin: 04/07/18 05:00 Dose: 10 mg Bisacodyl (Dulcolax) 10 mg RECTAL .PRN X 1 PRN PRN Reason: Constipation Last Admin: 04/07/18 04:52 Dose: 10 mg Buspirone HCl (Buspar) 10 mg PO BID [facility] Last Admin: 04/06/18 21:18 Dose: 10 mg Calamine/Phenol (Calmoseptine Ointment) 1 applic TOPICAL 0600,2200 [facility] PRN Reason: Protocol Last Admin: 04/07/18 05:00 Dose: 1 applicatio Fentanyl (Duragesic Patch) 12 mcg TRANSDERM. Q3D [facility] Last Admin: 04/04/18 21:54 Dose: 12 mcg Lacosamide (Vimpat) 100 mg PO BID [facility] Levetiracetam (Keppra Tablet) 1,000 mg PO BID [facility] Last Admin: 04/06/18 21:19 Dose: 1,000 mg Lidocaine (Lidoderm Patch) 1 patch TOPICAL DAILY [facility] PRN Reason: Protocol Last Admin: 04/06/18 09:29 Dose: 1 patch Loratadine (Claritin) 10 mg PO DAILY [facility] Last Admin: 04/06/18 09:27 Dose: 10 mg Magnesium Hydroxide (Milk Of Magnesia) 30 ml PO .PRN X 1 PRN PRN Reason: Constipation Last Admin: 04/06/18 13:36 Dose: 30 ml Melatonin (Melatonin) 3 mg PO QHS [facility] Last Admin: 04/06/18 21:20 Dose: 3 mg Methocarbamol (Methocarbamol) 750 mg PO TID PRN PRN Reason: MUSCLE SPASM Last Admin: 03/19/18 14:54 Dose: 750 mg Metoprolol Tartrate (Lopressor (Beta Jose Juan)) 25 mg PO BID [facility] Last Admin: 04/06/18 21:20 Dose: Not Given Ondansetron HCl (Zofran Odt) 8 mg PO Q8H PRN PRN PRN Reason: NAUSEA/VOMITING Oxycodone HCl (Oxyir) 5 mg PO Q6H PRN PRN PRN Reason: SEVERE PAIN (6-10/10) Last Admin: 04/06/18 21:21 Dose: 5 mg Pantoprazole Sodium (Protonix) 40 mg PO DAILY [facility] Last Admin: 04/06/18 09:27 Dose: 40 mg Polyethylene Glycol (Miralax) 17 gm PO BID [facility] Quetiapine Fumarate (Seroquel) 12.5 mg PO QHS [facility] Last Admin: 04/06/18 21:20 Dose: 12.5 mg Senna/Docusate Sodium (Senokot-S, Daija-Colace) 2 tablet PO BID [facility] Sodium Biphosphate/Sodium Phosphate (Fleet Enema) 1 bottle RECTAL X1 PRN PRN Reason: Constipation Tamsulosin HCl (Flomax) 0.4 mg PO DAILY@1730 [facility] Last Admin: 04/06/18 17:57 Dose: 0.4 mg Venlafaxine HCl (Effexor) 75 mg PO BID [facility] Last Admin: 04/06/18 21:19 Dose: 75 mg Medical Necessity - Tobacco Use Smoking Status: Former smoker Tobacco Use: Non-smoker Assessment/Plan All Active Problems (This Medical Record has been edited. Action required.) Aortic dissection (Acute) Acute right MCA stroke (Acute) Left hemiplegia (Acute) Acute kidney injury (Acute) Seizure disorder (Acute) Dysphagia (Acute) Vocal cord paralysis (Acute) Dysphagia (Acute) Debility due to pain, complex hospitalization including due to aneurysm of his aorta requiring a decompressive craniotomy, initially recovered but had a large right sided subdural hematoma which has remained stable and has not required further craniotomy or intervention. Now presents back to the rehab unit for rehabilitation so that he can return home. Plan: - Physical therapy for gait and balance - Occupational Therapy for ADLs - Speech therapy for a aphasia and dysphasia - As needed analgesics - Bowel protocol - DVT prophylaxis: Lovenox - Seizure prophylaxis with Keppra and Vimpat - PEG tube: Await speech therapy recommendations but if he is taking 100% of his p.o. intake we will hold his tube feeds. 03/20: No longer receiving any tube feeds. 03/21: Consider removing PEG tube in a few weeks if it is no longer in use. - Frequency, and urgency on urination => UA was positive for bacteria, => Acute cystitis with VRE patient on amoxicillin based on culture results; placed in isolation - Urine retention start low dose of Flomax 0.4mg - Pain => Fentanyl patch 25mcq - Constipation => managing symptoms
[2018-04-07 12:23] VITALS: BP 105/72; PULSE 77
[2018-04-07] MEDS: Lacosamide 100 MG Tablet PO ×2 (12:38→21:26)
[2018-04-07] MEDS: Lidocaine 5% Patch 1 PATCH TOPICAL (12:43)
[2018-04-07] MEDS: Polyethylene Glycol 3350 17 GM PACKET PO ×2 (12:44→21:29)
[2018-04-07] MEDS: Magnesium Hydroxide 30 ML UDC PO (12:48)
--- NOTE | 2018-04-07 13:08 | NURSING ---
Pt. tired wanting to sleep all day and not do therapy, per Josh Diamond, [employer] ok to DC fentanyl patch.
--- NOTE | 2018-04-07 13:12 | RAD_ITS ---
STUDY: X-RAY - ABDOMEN/PELVIS REASON FOR EXAM: Male, 52 years old. Constipation, hemiplegia, PEG tube TECHNIQUE: Single AP view of the abdomen / pelvis. COMPARISON: Prior study of 06/04/2016 FINDINGS: The lung bases are not in the field of view of the study. A portion of PEG tube balloon is noted in the left upper quadrant of the abdomen. There is a large amount of stool in the rectal vault. There is no demonstrated free abdominal air. The visualized liver, spleen and kidneys are grossly normal in size and morphology. Normal soft tissue structures. Status post total left hip replacement changes are noted. RAD/Abdomen Single View (Portable) IMPRESSION: Large amount of stool in the rectal vault consistent with constipation. There is no evidence of ileus or obstruction. Portion of PEG tube balloon seen in the left upper quadrant of the abdomen. Status post total left hip replacement changes are seen. Electronically Signed: Dutch Jones MD at 16:57 EDT , Service support ,
[2018-04-07 13:36] VITALS: BMI 18.3
--- NOTE | 2018-04-07 13:57 | PN_ITS ---
Subjective: Patient seen upset about the fact that he has to be in isolation in view of his VRE diagnosis Objective: GENERAL: cooperative HEENT: Craniotomy scar on scalp NECK; supple, normal thyroid, CHEST: Clear to auscultation bilaterally, HEART: Regular S1 S2, no audible murmurs ABDOMEN: soft, non-tender, normoactive bowel sounds, RECTAL: deferred EXTREMITIES: No edema, no clubbing, no cyanosis. ANGIOGRAPHER: Awake; left upper extremity contractures paresis SKIN: No Rash Vitals/I&O's: Vital Signs Temp Pulse Resp BP Pulse Ox 97.8 F 77 18 105/72 94 04/07/18 10:00 04/07/18 12:23 04/07/18 10:00 04/07/18 12:23 04/07/18 10:00 Oxygen Delivery Method Room Air Weight: 58.3 kg Body Mass Index (BMI) 18.3 Intake and Output for Last 24 Hours 04/05/18 04/06/18 04/07/18 23:59 23:59 23:59 Intake Total 1280 / 1280 1140 / 1140 360 / 360 Output Total 800 / 800 1025 / 1025 400 / 400 Balance 480 / 480 115 / 115 -40 / -40 Microbiology Past 72 Hours 04/03/18 11:20 Urine, Catheterized Urine Culture - Final Vancomycin Resist. E. faecalis Current Medications Acetaminophen (Tylenol) 650 mg PO Q6H PRN PRN PRN Reason: Mild Pain (0-3/10)/Headache Last Admin: 04/06/18 06:44 Dose: 650 mg Acetylcysteine (Mucomyst) 400 mg INHALATION Q6H.RT PRN PRN Reason: sob/wheezing Albuterol/Ipratropium (Duoneb) 3 ml INHALATION Q4H.RT PRN PRN Reason: SOB &/OR WHEEZING Amoxicillin (Amoxil) 500 mg PO Q8 [facility] Last Admin: 04/07/18 12:41 Dose: 500 mg Aspirin (Aspirin, Baby) 81 mg PO DAILY@0800 [facility] Last Admin: 04/07/18 10:45 Dose: 81 mg Baclofen (Lioresal) 10 mg PO TID [facility] Last Admin: 04/07/18 05:00 Dose: 10 mg Bisacodyl (Dulcolax) 10 mg RECTAL .PRN X 1 PRN PRN Reason: Constipation Last Admin: 04/07/18 04:52 Dose: 10 mg Buspirone HCl (Buspar) 10 mg PO BID [facility] Last Admin: 04/07/18 10:45 Dose: 10 mg Calamine/Phenol (Calmoseptine Ointment) 1 applic TOPICAL 0600,2200 [facility] PRN Reason: Protocol Last Admin: 04/07/18 05:00 Dose: 1 applicatio Enoxaparin Sodium (Lovenox) 40 mg SC DAILY [facility] Lacosamide (Vimpat) 100 mg PO BID [facility] Last Admin: 04/07/18 12:38 Dose: 100 mg Levetiracetam (Keppra Tablet) 1,000 mg PO BID [facility] Last Admin: 04/07/18 10:45 Dose: 1,000 mg Lidocaine (Lidoderm Patch) 1 patch TOPICAL DAILY [facility] PRN Reason: Protocol Last Admin: 04/07/18 12:43 Dose: 1 patch Loratadine (Claritin) 10 mg PO DAILY [facility] Last Admin: 04/07/18 10:45 Dose: 10 mg Lorazepam (Ativan) 0.5 mg PO DAILY PRN PRN Reason: ANXIETY Magnesium Hydroxide (Milk Of Magnesia) 30 ml PO .PRN X 1 PRN PRN Reason: Constipation Last Admin: 04/07/18 12:48 Dose: 30 ml Melatonin (Melatonin) 3 mg PO QHS [facility] Last Admin: 04/06/18 21:20 Dose: 3 mg Methocarbamol (Methocarbamol) 750 mg PO TID PRN PRN Reason: MUSCLE SPASM Last Admin: 03/19/18 14:54 Dose: 750 mg Metoprolol Tartrate (Lopressor (Beta Jose Juan)) 25 mg PO BID [facility] Last Admin: 04/07/18 12:23 Dose: Not Given Ondansetron HCl (Zofran Odt) 8 mg PO Q8H PRN PRN PRN Reason: NAUSEA/VOMITING Oxycodone HCl (Oxyir) 5 mg PO Q6H PRN PRN PRN Reason: SEVERE PAIN (6-10/10) Last Admin: 04/06/18 21:21 Dose: 5 mg Pantoprazole Sodium (Protonix) 40 mg PO DAILY [facility] Last Admin: 04/07/18 10:45 Dose: 40 mg Polyethylene Glycol (Miralax) 17 gm PO BID [facility] Quetiapine Fumarate (Seroquel) 12.5 mg PO QHS [facility] Last Admin: 04/06/18 21:20 Dose: 12.5 mg Senna/Docusate Sodium (Senokot-S, Daija-Colace) 2 tablet PO BID [facility] Last Admin: 04/07/18 10:45 Dose: 2 tablet Sodium Biphosphate/Sodium Phosphate (Fleet Enema) 1 bottle RECTAL X1 PRN PRN Reason: Constipation Tamsulosin HCl (Flomax) 0.4 mg PO DAILY@1730 [facility] Last Admin: 04/06/18 17:57 Dose: 0.4 mg Venlafaxine HCl (Effexor) 75 mg PO BID [facility] Last Admin: 04/07/18 10:45 Dose: 75 mg Medical Necessity - Tobacco Use Smoking Status: Former smoker Tobacco Use: Non-smoker Assessment/Plan All Active Problems (This Medical Record has been edited. Action required.) Aortic dissection (Acute) Acute right MCA stroke (Acute) Left hemiplegia (Acute) Acute kidney injury (Acute) Seizure disorder (Acute) Dysphagia (Acute) Vocal cord paralysis (Acute) Dysphagia (Acute) The patient is a 52 year old male with recent complicated past medical history including aortic dissection for which patient underwent surgery at [facility] which was complicated by a right MCA stroke in September 2017 status post decompressive craniectomy in September 2017 followed by vocal cord paralysis managed by ENT and subsequently had pneumonia and respiratory failure resulting into intubation in December 2017 and was discharged to TCU on 02/07/2018. Patient had PEG tube placement on 02/13/2018 and then was readmitted to [facility] on for cranioplasty and subsequently transferred to the inpatient rehab unit. Patient was noted to have, CT findings on 03/14/2018. He was transferred to [facility] as a result of midline shift and large right-sided subdural pneumocephalus. Patient was monitored in the neuro intensive care unit and transferred back to the inpatient rehab unit on 03/18/2018. 1. Physical debility secondary to Right MCA stroke with residual left-sided hemiparesis: Patient has been admitted to the inpatient rehab unit where he is currently undergoing PT and OT 2. Acute cystitis with VRE patient was managed with amoxicillin based on culture results; placed in isolation 3. Aortic dissection status post surgery 4. Seizure disorder patient is on Keppra 5. Vocal cord paralysis: Speech therapy on board. Management as per ENT. 6. Hypertension-blood pressure controlled, home medications continued with dose adjustment as needed 7 . Dysphagia: s/p PEG tube placement. also able to take PO food. 8. Depression. On effexor and seroquel 9. Constipation managed symptomatically 10. DVT prophylaxis: [email or web address] Code Visit Inpatient E&M: 21745 Subs Hosp L2
[2018-04-07] MEDS: Acetaminophen 325 MG Tablet 650 MG PO (14:47)
[2018-04-07] MEDS: Tamsulosin HCl 0.4 MG Capsule PO (16:50)
[2018-04-07 21:27] VITALS: BP 95/50; PULSE 64
[2018-04-07] MEDS: MELATONIN 3 MG TABLET PO (21:28)
[2018-04-07] MEDS: QUEtiapine 25 MG Tablet 12.5 MG PO (21:28)
[2018-04-07 21:30] VITALS: BP 95/50; PULSE 64; RESP 20; TEMP 36.5; O2SAT 94; BMI 18.3
[2018-04-07] MEDS: Fleet Enema 1 ML RECTAL (22:00)
[2018-04-07] MEDS: LORazepam 0.5 MG Tablet PO (22:16)
--- NOTE | 2018-04-08 02:15 | NURSING ---
Reviewed and agree with [employer] documentation and FIMs charting.
[2018-04-08] MEDS: Acetaminophen 325 MG Tablet 650 MG PO ×2 (06:12→20:14)
[2018-04-08] MEDS: AMOXICILLIN 500 MG CAPSULE PO ×3 (06:13→20:14)
[2018-04-08] MEDS: Baclofen 10 MG Tablet PO ×3 (06:13→20:14)
[2018-04-08] MEDS: Menthol/Lanolin/Calamine/Znox 113 GM Tube 1 APPLIC TOPICAL ×2 (06:14→20:21)
--- NOTE | 2018-04-08 09:33 | PN.NEURO_ITS ---
Subjective: Patient seen, no new complaints, remains in isolation for VRE in the urine. Pain well controlled. Tolerating therapy. - Physical Exam General: Alert, Oriented x3, Cooperative HEENT: Atraumatic, PERRLA, EOMI, Normocephalic Neck: Supple, No JVD, Negative Carotid Bruits Lungs: Clear to auscultation, Normal air movement Cardiovascular: Regular rate, No murmurs Abdomen: Bowel Sounds Present, Soft, Non Tender Extremities: No edema, Capillary Refill Less than 3 Seconds Skin: No rashes, No breakdown Musculoskeletal: No Tenderness to Palpation of Joints or Extremities Neurological: Cranial nerves II-XII grossly intact Psych/Mental Status: Normal Affect, Appropriate, Alert and oriented to time, place, person, mood and affect Vital Signs Temp Pulse Resp BP Pulse Ox 97.7 F L 64 20 H 95/50 L 94 04/07/18 21:30 04/07/18 21:30 04/07/18 21:30 04/07/18 21:30 04/07/18 21:30 Oxygen Delivery Method Room Air Weight: 58.3 kg Body Mass Index (BMI) 18.3 Intake and Output for Last 24 Hours 04/06/18 04/07/18 04/08/18 23:59 23:59 23:59 Intake Total 1140 / 1140 1200 / 1200 Output Total 1025 / 1025 400 / 400 400 / 400 Balance 115 / 115 800 / 800 -400 / -400 Microbiology Past 72 Hours 04/03/18 11:20 Urine Culture - Final Urine, Catheterized Vancomycin Resist. E. faecalis Active Medications Acetaminophen (Tylenol) 650 mg PO Q6H PRN PRN PRN Reason: Mild Pain (0-3/10)/Headache Last Admin: 04/08/18 06:12 Dose: 650 mg Acetylcysteine (Mucomyst) 400 mg INHALATION Q6H.RT PRN PRN Reason: sob/wheezing Albuterol/Ipratropium (Duoneb) 3 ml INHALATION Q4H.RT PRN PRN Reason: SOB &/OR WHEEZING Amoxicillin (Amoxil) 500 mg PO Q8 [facility] Last Admin: 04/08/18 06:13 Dose: 500 mg Aspirin (Aspirin, Baby) 81 mg PO DAILY@0800 [facility] Last Admin: 04/07/18 10:45 Dose: 81 mg Baclofen (Lioresal) 10 mg PO TID [facility] Last Admin: 04/08/18 06:13 Dose: 10 mg Bisacodyl (Dulcolax) 10 mg RECTAL .PRN X 1 PRN PRN Reason: Constipation Last Admin: 04/07/18 04:52 Dose: 10 mg Buspirone HCl (Buspar) 10 mg PO BID [facility] Last Admin: 04/07/18 21:27 Dose: 10 mg Calamine/Phenol (Calmoseptine Ointment) 1 applic TOPICAL 0600,2200 [facility] PRN Reason: Protocol Last Admin: 04/08/18 06:14 Dose: 1 applicatio Enoxaparin Sodium (Lovenox) 40 mg SC DAILY [facility] Lacosamide (Vimpat) 100 mg PO BID [facility] Last Admin: 04/07/18 21:26 Dose: 100 mg Levetiracetam (Keppra Tablet) 1,000 mg PO BID [facility] Last Admin: 04/07/18 21:27 Dose: 1,000 mg Lidocaine (Lidoderm Patch) 1 patch TOPICAL DAILY [facility] PRN Reason: Protocol Last Admin: 04/07/18 12:43 Dose: 1 patch Loratadine (Claritin) 10 mg PO DAILY [facility] Last Admin: 04/07/18 10:45 Dose: 10 mg Lorazepam (Ativan) 0.5 mg PO DAILY PRN PRN Reason: ANXIETY Last Admin: 04/07/18 22:16 Dose: 0.5 mg Magnesium Hydroxide (Milk Of Magnesia) 30 ml PO .PRN X 1 PRN PRN Reason: Constipation Last Admin: 04/07/18 12:48 Dose: 30 ml Melatonin (Melatonin) 3 mg PO QHS [facility] Last Admin: 04/07/18 21:28 Dose: 3 mg Methocarbamol (Methocarbamol) 750 mg PO TID PRN PRN Reason: MUSCLE SPASM Last Admin: 03/19/18 14:54 Dose: 750 mg Metoprolol Tartrate (Lopressor (Beta Jose Juan)) 25 mg PO BID [facility] Last Admin: 04/07/18 21:27 Dose: Not Given Ondansetron HCl (Zofran Odt) 8 mg PO Q8H PRN PRN PRN Reason: NAUSEA/VOMITING Oxycodone HCl (Oxyir) 5 mg PO Q6H PRN PRN PRN Reason: SEVERE PAIN (6-10/10) Last Admin: 04/06/18 21:21 Dose: 5 mg Pantoprazole Sodium (Protonix) 40 mg PO DAILY [facility] Last Admin: 04/07/18 10:45 Dose: 40 mg Polyethylene Glycol (Miralax) 17 gm PO BID [facility] Last Admin: 04/07/18 21:29 Dose: 17 gm Quetiapine Fumarate (Seroquel) 12.5 mg PO QHS [facility] Last Admin: 04/07/18 21:28 Dose: 12.5 mg Senna/Docusate Sodium (Senokot-S, Daija-Colace) 2 tablet PO BID [facility] Last Admin: 04/07/18 21:26 Dose: 2 tablet Sodium Biphosphate/Sodium Phosphate (Fleet Enema) 1 bottle RECTAL X1 PRN PRN Reason: Constipation Last Admin: 04/07/18 22:00 Dose: 1 bottle Tamsulosin HCl (Flomax) 0.4 mg PO DAILY@1730 [facility] Last Admin: 04/07/18 16:50 Dose: 0.4 mg Venlafaxine HCl (Effexor) 75 mg PO BID [facility] Last Admin: 04/07/18 21:26 Dose: 75 mg Medical Necessity - Tobacco Use Smoking Status: Former smoker Tobacco Use: Non-smoker Assessment/Plan All Active Problems (This Medical Record has been edited. Action required.) Aortic dissection (Acute) Acute right MCA stroke (Acute) Left hemiplegia (Acute) Acute kidney injury (Acute) Seizure disorder (Acute) Dysphagia (Acute) Vocal cord paralysis (Acute) Dysphagia (Acute) Debility due to pain, complex hospitalization including due to aneurysm of his aorta requiring a decompressive craniotomy, initially recovered but had a large right sided subdural hematoma which has remained stable and has not required further craniotomy or intervention. Now presents back to the rehab unit for rehabilitation so that he can return home. Plan: - Physical therapy for gait and balance - Occupational Therapy for ADLs - Speech therapy for a aphasia and dysphasia - As needed analgesics - Bowel protocol - DVT prophylaxis: Lovenox - Seizure prophylaxis with Keppra and Vimpat - PEG tube: Await speech therapy recommendations but if he is taking 100% of his p.o. intake we will hold his tube feeds. 03/20: No longer receiving any tube feeds. 03/21: Consider removing PEG tube in a few weeks if it is no longer in use. - Frequency, and urgency on urination => UA was positive for bacteria, => Acute cystitis with VRE patient on amoxicillin based on culture results; placed in isolation - Urine retention start low dose of Flomax 0.4mg - Pain => Fentanyl patch 25mcq - Constipation => managing symptoms
[2018-04-08 10:00] VITALS: BP 126/84; PULSE 80; RESP 18; TEMP 36.6; O2SAT 95
[2018-04-08] MEDS: Lidocaine 5% Patch 1 PATCH TOPICAL (11:06)
[2018-04-08] MEDS: Polyethylene Glycol 3350 17 GM PACKET PO ×2 (11:06→20:14)
[2018-04-08] MEDS: Loratadine 10 MG Tablet PO (11:10)
[2018-04-08] MEDS: Venlafaxine HCl 75 MG Tablet PO ×2 (11:10→20:14)
[2018-04-08] MEDS: Senna/Docusate Sodium 1 Tablet 2 TABLET PO ×2 (11:10→20:13)
[2018-04-08] MEDS: Pantoprazole Sodium 40 MG Tablet PO (11:10)
[2018-04-08] MEDS: Aspirin 81 MG TAB.CHEW PO (11:10)
[2018-04-08] MEDS: levETIRAcetam 1,000 MG Tablet 1000 MG PO ×2 (11:10→20:14)
[2018-04-08] MEDS: busPIRone 5 MG Tablet 10 MG PO ×2 (11:10→20:14)
[2018-04-08 11:11] VITALS: BP 126/84; PULSE 80
[2018-04-08] MEDS: Lacosamide 100 MG Tablet PO ×2 (11:11→20:13)
[2018-04-08] MEDS: Metoprolol Tartrate 25 MG Tablet PO (11:11)
[2018-04-08] MEDS: Enoxaparin 40 MG/0.4 ML Syringe SC (11:13)
[2018-04-08 11:35] VITALS: BMI 18.3
[2018-04-08] MEDS: Tamsulosin HCl 0.4 MG Capsule PO (17:44)
[2018-04-08 18:27] VITALS: BP 113/69; PULSE 68; RESP 18; TEMP 36.6; O2SAT 97
[2018-04-08 20:00] VITALS: PULSE 68; RESP 18
[2018-04-08] MEDS: QUEtiapine 25 MG Tablet 12.5 MG PO (20:13)
[2018-04-08] MEDS: MELATONIN 3 MG TABLET PO (20:14)
[2018-04-08 20:15] VITALS: BP 113/69; PULSE 68
--- NOTE | 2018-04-09 02:02 | NURSING ---
Reviewed and agree with BONE DRIER OPERATOR documentation and FIMs charting.
[2018-04-09] MEDS: Baclofen 10 MG Tablet PO ×3 (06:08→22:26)
[2018-04-09] MEDS: Menthol/Lanolin/Calamine/Znox 113 GM Tube 1 APPLIC TOPICAL ×2 (06:09→22:30)
[2018-04-09] MEDS: AMOXICILLIN 500 MG CAPSULE PO ×3 (06:09→22:27)
[2018-04-09] MEDS: Aspirin 81 MG TAB.CHEW PO (08:30)
[2018-04-09] MEDS: Venlafaxine HCl 75 MG Tablet PO ×2 (08:31→22:28)
[2018-04-09] MEDS: Loratadine 10 MG Tablet PO (08:31)
[2018-04-09] MEDS: Enoxaparin 40 MG/0.4 ML Syringe SC (08:31)
[2018-04-09] MEDS: levETIRAcetam 1,000 MG Tablet 1000 MG PO ×2 (08:31→22:27)
[2018-04-09] MEDS: Pantoprazole Sodium 40 MG Tablet PO (08:31)
[2018-04-09 08:39] VITALS: BP 111/81; PULSE 72
[2018-04-09] MEDS: Acetaminophen 325 MG Tablet 650 MG PO (08:41)
[2018-04-09] MEDS: oxyCODONE 5 MG Tablet PO ×2 (08:41→21:13)
[2018-04-09] MEDS: Lacosamide 100 MG Tablet PO ×2 (08:42→22:26)
[2018-04-09 09:00] VITALS: BP 111/81; PULSE 72; RESP 18; TEMP 36.4; O2SAT 97
--- NOTE | 2018-04-09 09:17 | PCM.PN.NEU ---
Subjective: Patient seen during therapy, he has walked several times using a Jayy-walker with moderate assist of 1, he is getting some flexion in the left knee when walking. He is tolerating therapy, and doing well. On Amoxicillin for UTI with VRE in the urine. - Physical Exam General: Alert, Oriented x3, Cooperative HEENT: Atraumatic, PERRLA, EOMI, Normocephalic Neck: Supple, No JVD, Negative Carotid Bruits Lungs: Clear to auscultation, Normal air movement Cardiovascular: Regular rate, No murmurs Abdomen: Bowel Sounds Present, Soft, Non Tender Extremities: No edema, Capillary Refill Less than 3 Seconds Skin: No rashes, No breakdown Musculoskeletal: No Tenderness to Palpation of Joints or Extremities Neurological: Cranial nerves II-XII grossly intact Psych/Mental Status: Alert and oriented to time, place, person, mood and affect Vital Signs Temp Pulse Resp BP Pulse Ox 97.9 F 72 18 111/81 H 97 04/08/18 18:27 04/09/18 08:39 04/08/18 20:00 04/09/18 08:39 04/08/18 18:27 Oxygen Delivery Method Room Air Weight: 58.3 kg Body Mass Index (BMI) 18.3 Intake and Output for Last 24 Hours 04/07/18 04/08/18 04/09/18 23:59 23:59 23:59 Intake Total 1260 / 1260 960 / 960 360 / 360 Output Total 400 / 400 600 / 600 Balance 860 / 860 360 / 360 360 / 360 Microbiology Past 72 Hours 04/03/18 11:20 Urine Culture - Final Urine, Catheterized Vancomycin Resist. E. faecalis Active Medications Acetaminophen (Tylenol) 650 mg PO Q6H PRN PRN PRN Reason: Mild Pain (0-3/10)/Headache Last Admin: 04/09/18 08:41 Dose: 650 mg Acetylcysteine (Mucomyst) 400 mg INHALATION Q6H.RT PRN PRN Reason: sob/wheezing Albuterol/Ipratropium (Duoneb) 3 ml INHALATION Q4H.RT PRN PRN Reason: SOB &/OR WHEEZING Amoxicillin (Amoxil) 500 mg PO Q8 [facility] Last Admin: 04/09/18 06:09 Dose: 500 mg Aspirin (Aspirin, Baby) 81 mg PO DAILY@0800 [facility] Last Admin: 04/09/18 08:30 Dose: 81 mg Baclofen (Lioresal) 10 mg PO TID [facility] Last Admin: 04/09/18 06:08 Dose: 10 mg Bisacodyl (Dulcolax) 10 mg RECTAL .PRN X 1 PRN PRN Reason: Constipation Last Admin: 04/07/18 04:52 Dose: 10 mg Buspirone HCl (Buspar) 10 mg PO BID [facility] Last Admin: 04/08/18 20:14 Dose: 10 mg Calamine/Phenol (Calmoseptine Ointment) 1 applic TOPICAL 0600,2200 [facility] PRN Reason: Protocol Last Admin: 04/09/18 06:09 Dose: 1 applicatio Enoxaparin Sodium (Lovenox) 40 mg SC DAILY [facility] Last Admin: 04/09/18 08:31 Dose: 40 mg Lacosamide (Vimpat) 100 mg PO BID [facility] Last Admin: 04/09/18 08:42 Dose: 100 mg Levetiracetam (Keppra Tablet) 1,000 mg PO BID [facility] Last Admin: 04/09/18 08:31 Dose: 1,000 mg Lidocaine (Lidoderm Patch) 1 patch TOPICAL DAILY [facility] PRN Reason: Protocol Last Admin: 04/08/18 11:06 Dose: 1 patch Loratadine (Claritin) 10 mg PO DAILY [facility] Last Admin: 04/09/18 08:31 Dose: 10 mg Lorazepam (Ativan) 0.5 mg PO DAILY PRN PRN Reason: ANXIETY Last Admin: 04/07/18 22:16 Dose: 0.5 mg Magnesium Hydroxide (Milk Of Magnesia) 30 ml PO .PRN X 1 PRN PRN Reason: Constipation Last Admin: 04/07/18 12:48 Dose: 30 ml Melatonin (Melatonin) 3 mg PO QHS [facility] Last Admin: 04/08/18 20:14 Dose: 3 mg Methocarbamol (Methocarbamol) 750 mg PO TID PRN PRN Reason: MUSCLE SPASM Last Admin: 03/19/18 14:54 Dose: 750 mg Metoprolol Tartrate (Lopressor (Beta Jose Juan)) 25 mg PO BID [facility] Last Admin: 04/09/18 08:39 Dose: Not Given Ondansetron HCl (Zofran Odt) 8 mg PO Q8H PRN PRN PRN Reason: NAUSEA/VOMITING Oxycodone HCl (Oxyir) 5 mg PO Q6H PRN PRN PRN Reason: SEVERE PAIN (6-05/07) Last Admin: 04/09/18 08:41 Dose: 5 mg Pantoprazole Sodium (Protonix) 40 mg PO DAILY [facility] Last Admin: 04/09/18 08:31 Dose: 40 mg Polyethylene Glycol (Miralax) 17 gm PO BID [facility] Last Admin: 04/08/18 20:14 Dose: 17 gm Quetiapine Fumarate (Seroquel) 12.5 mg PO QHS [facility] Last Admin: 04/08/18 20:13 Dose: 12.5 mg Senna/Docusate Sodium (Senokot-S, Daija-Colace) 2 tablet PO BID [facility] Last Admin: 04/08/18 20:13 Dose: 2 tablet Sodium Biphosphate/Sodium Phosphate (Fleet Enema) 1 bottle RECTAL X1 PRN PRN Reason: Constipation Last Admin: 04/07/18 22:00 Dose: 1 bottle Tamsulosin HCl (Flomax) 0.4 mg PO DAILY@1730 [facility] Last Admin: 04/08/18 17:44 Dose: 0.4 mg Venlafaxine HCl (Effexor) 75 mg PO BID [facility] Last Admin: 04/09/18 08:31 Dose: 75 mg Medical Necessity - Tobacco Use Smoking Status: Former smoker Tobacco Use: Non-smoker Assessment/Plan All Active Problems (This Medical Record has been edited. Action required.) Aortic dissection (Acute) Acute right MCA stroke (Acute) Left hemiplegia (Acute) Acute kidney injury (Acute) Seizure disorder (Acute) Dysphagia (Acute) Vocal cord paralysis (Acute) Dysphagia (Acute) Debility due to pain, complex hospitalization including due to aneurysm of his aorta requiring a decompressive craniotomy, initially recovered but had a large right sided subdural hematoma which has remained stable and has not required further craniotomy or intervention. Now presents back to the rehab unit for rehabilitation so that he can return home. Plan: - Physical therapy for gait and balance - Occupational Therapy for ADLs - Speech therapy for a aphasia and dysphasia - As needed analgesics - Bowel protocol - DVT prophylaxis: Lovenox - Seizure prophylaxis with Keppra and Vimpat - PEG tube: Await speech therapy recommendations but if he is taking 100% of his p.o. intake we will hold his tube feeds. 03/20: No longer receiving any tube feeds. 03/21: Consider removing PEG tube in a few weeks if it is no longer in use. - Frequency, and urgency on urination => UA was positive for bacteria, => Acute cystitis with VRE patient on amoxicillin based on culture results; placed in isolation - Urine retention start low dose of Flomax 0.4mg - Pain => Fentanyl patch 25mcq - Constipation => managing symptoms
[2018-04-09] MEDS: Lidocaine 5% Patch 1 PATCH TOPICAL (11:14)
[2018-04-09] MEDS: busPIRone 5 MG Tablet 10 MG PO ×2 (11:15→22:27)
[2018-04-09] MEDS: Polyethylene Glycol 3350 17 GM PACKET PO ×2 (12:06→22:26)
[2018-04-09] MEDS: Magnesium Hydroxide 30 ML UDC PO (12:15)
[2018-04-09] MEDS: Senna/Docusate Sodium 1 Tablet 2 TABLET PO ×2 (14:52→22:26)
[2018-04-09 15:52] VITALS: BMI 18.3
[2018-04-09] MEDS: Tamsulosin HCl 0.4 MG Capsule PO (17:38)
--- NOTE | 2018-04-09 17:41 | NURSING ---
Scant red drainage from rectal area with large hemorrhoid observed by this nurse. Patient denies discomfort. Dr. Keenan aware and new order received for anusol hc supp. Patient aware.
[2018-04-09 21:00] VITALS: BP 132/86; PULSE 84; RESP 20; TEMP 36.4; O2SAT 95; BMI 18.3
--- NOTE | 2018-04-09 21:00 | NURSING ---
pt attends was removed this hs and was noted to have a moderate amt of maroon colored drainage, pt transferred to w/c and shower given when pt was repositioned to the toilet a small amt of maroon drng was noted on the towel after trying to have a bm pt transferred to the bed and a moderate amt of more maroon drng was cleaned from his rectal area. anusol suppository was given as per order with stool felt in the rectal vault. rn aware of maroon drng [ End ]
[2018-04-09] MEDS: QUEtiapine 25 MG Tablet 12.5 MG PO (22:27)
[2018-04-09] MEDS: MELATONIN 3 MG TABLET PO (22:27)
[2018-04-09 22:28] VITALS: BP 132/86; PULSE 84
[2018-04-09] MEDS: Metoprolol Tartrate 25 MG Tablet PO (22:28)
[2018-04-09] MEDS: LORazepam 0.5 MG Tablet PO (22:28)
[2018-04-09] MEDS: Hydrocortisone 25 MG Suppository RECTAL (22:30)
--- NOTE | 2018-04-10 02:40 | NURSING ---
Reviewed and agree with WELFARE SUPERVISOR documentation and FIMs charting
[2018-04-10] MEDS: Baclofen 10 MG Tablet PO ×2 (05:03→15:00)
[2018-04-10] MEDS: Menthol/Lanolin/Calamine/Znox 113 GM Tube 1 APPLIC TOPICAL (05:03)
[2018-04-10] MEDS: Hydrocortisone 25 MG Suppository RECTAL (05:03)
[2018-04-10] MEDS: AMOXICILLIN 500 MG CAPSULE PO ×2 (05:04→15:00)
[2018-04-10] MEDS: Senna/Docusate Sodium 1 Tablet 2 TABLET PO ×2 (05:04→15:01)
--- NOTE | 2018-04-10 05:22 | NURSING ---
left hand brace removed per pt request after wearing brace all night.
--- NOTE | 2018-04-10 07:45 | NURSING ---
Dr. Keenan made aware of moderate amount blood noted per shift mgr report and new order for labs. Patient in no distress.
[2018-04-10 07:46] LABS: Hematocrit 39.4 % (40-54); Hemoglobin 13.6 g/dl (13.0-16.5); Mean Corp Hgb Conc 34.5 g/gl (32-36); Mean Corpuscular Hgb 34.4 pg (27.0-32.0); Mean Corpuscular Volume 99.7 fL (80-94); Mean Platelet Vol. 8.7 fl (6.2-12.0); Platelet Count 274 K/mm3 (150-450); RBC Distribution Width SD 43.3 fl (35.1-43.9); Red Blood Count 3.95 M/mm3 (4.6-6.2); Scan Indicated on CBC? Y/N NO; White Blood Count 4.9 K/mm3 (4.4-11.0)
[2018-04-10] MEDS: Venlafaxine HCl 75 MG Tablet PO (08:09)
[2018-04-10] MEDS: Polyethylene Glycol 3350 17 GM PACKET PO (08:09)
[2018-04-10] MEDS: Lacosamide 100 MG Tablet PO (08:10)
[2018-04-10] MEDS: busPIRone 5 MG Tablet 10 MG PO (08:10)
[2018-04-10] MEDS: Pantoprazole Sodium 40 MG Tablet PO (08:10)
[2018-04-10] MEDS: Loratadine 10 MG Tablet PO (08:10)
[2018-04-10 08:12] LABS: Anion Gap 7 (5-15); BUN 10 mg/dL (7-18); BUN/Creat Ratio 17.8 RATIO (10-20); Calcium,Total 8.4 mg/dL (8.5-10.1); Chloride 108 mmol/L (98-107); Creatinine, Serum 0.56 mg/dL (0.70-1.30); EST Glomerular Filtration Rate 161 mL/min (>60); Est Glom Filt Rate - Afr Amer 195 mL/min (>60); Estimated Creatinine Clearance 133.56 ml/min; Glucose 86 mg/dL (74-106); Magnesium 2.3 mg/dL (1.6-2.6); Potassium 3.7 mmol/L (3.5-5.1); Sodium Level 143 mmol/L (136-145)
[2018-04-10] MEDS: levETIRAcetam 1,000 MG Tablet 1000 MG PO (08:12)
[2018-04-10] MEDS: Lidocaine 5% Patch 1 PATCH TOPICAL (08:12)
--- NOTE | 2018-04-10 08:55 | NURSING ---
No further rectal bleeding noted, hemorrhoid external still present. Small stool noted and sent out for occult stool per [place] NIGHT CLERK AUDITOR order.
--- NOTE | 2018-04-10 09:15 | CASEMGMT ---
Team meeting held. Patient present as well as patient spouse. No discharge date set at this time. Patient with insurance update due on 04/11/18. Patient and patient family aware that continued stay approval is not guaranteed. If patient continued stay would be denied patient spouse reporting to need a wheelchair and hospital bed for patient. Patient is also agreeable to home health services for physical, occupational, and speech therapy as well as jail and a home health aide. Discharge plan would be for patient to discharge to home with spouse and home health services. Patient spouse planning to do family training on Saturday if continued stay is approved and if continued stay is denied and patient has to leave this weekend patient spouse will do family training on Saturday. Patient to continue with care and treatment on the Inpatient Rehab Unit at this time. Support given. Will continue to follow. Guillermina PANTOJA, SAND SHOVELER
--- NOTE | 2018-04-10 09:30 | NURSING ---
Family present in team meeting
--- NOTE | 2018-04-10 09:45 | NURSING ---
Family present in team meeting, aware of positive occult stool and dr honeycutt and dr capone aware. aware of rectal bleeding and hemorrhoid noted. Dr. honeycutt recommended GI appt to be made.
--- NOTE | 2018-04-10 09:58 | PCM.PN.NEU ---
Subjective: Staffed in team meeting. at bedside, questions answered. With Physical therapy, he is contact guard to minimal assist for transfers. He is able to walk in the parallel bars several time about 40 feet. He is able to walk with the Jayy-walker for about 12 feet with moderate assistance. With Occupational therapy, he is minimal assist for upper body grooming, he is setup and minimal assist with shaving and brushing his teeth. He still requires maximal assist for getting his pants up and managing his urinal. With Speech therapy, he is on a mechanical soft diet with nectar thicken liquids. He is doing well on the thin liquid trials, he remembers to tuck his chin doing trials. They are continue work on his attention to task and his impulsiveness. With Nursing he is Max assist for toileting. He developed some rectal bleeding was given an Anusol suppository, his Lovenox is being held , will continue to receive his ASA. - Physical Exam General: Alert, Oriented x3, Cooperative HEENT: Atraumatic, PERRLA, EOMI, Normocephalic Neck: Supple, No JVD, Negative Carotid Bruits Lungs: Clear to auscultation, Normal air movement Cardiovascular: Regular rate, No murmurs Abdomen: Bowel Sounds Present, Soft, Non Tender Extremities: No edema, Capillary Refill Less than 3 Seconds Skin: No rashes, No breakdown Musculoskeletal: No Tenderness to Palpation of Joints or Extremities Neurological: Cranial nerves II-XII grossly intact Psych/Mental Status: Normal Affect, Appropriate Vital Signs Temp Pulse Resp BP Pulse Ox 97.6 F L 84 20 H 132/86 H 95 04/09/18 21:00 04/09/18 22:28 04/09/18 21:00 04/09/18 22:28 04/09/18 21:00 Oxygen Delivery Method Room Air Weight: 61.9 kg Body Mass Index (BMI) 18.3 Intake and Output for Last 24 Hours 04/08/18 04/09/18 04/10/18 23:59 23:59 23:59 Intake Total 960 / 960 1630 / 1630 340 / 340 Output Total 600 / 600 700 / 700 300 / 300 Balance 360 / 360 930 / 930 40 / 40 Microbiology Past 72 Hours 04/10/18 09:00 Stool Occult Blood (WILL) - Final Stool Occult Blood Positive 04/03/18 11:20 Urine Culture - Final Urine, Catheterized Vancomycin Resist. E. faecalis Laboratory Tests Past 24 Hrs 04/10/18 04/10/18 07:38 07:38 WBC 4.9 RBC 3.95 L Hgb 13.6 Hct 39.4 L MCV 99.7 H MCH 34.4 H MCHC 34.5 RDW 12.0 RDW Differential 43.3 Plt Count 274 MPV 8.7 Sodium 143 Potassium 3.7 Chloride 108 H Carbon Dioxide 28.0 Anion Gap 7 BUN 10 Creatinine 0.56 L Estim Creat Clear Calc 133.56 Est GFR (MDRD) Af Amer 195 Est GFR (MDRD) Non-Af 161 BUN/Creatinine Ratio 17.8 Glucose 86 Calcium 8.4 L Magnesium 2.3 Active Medications Acetaminophen (Tylenol) 650 mg PO Q6H PRN PRN PRN Reason: Mild Pain (0-3/10)/Headache Last Admin: 04/09/18 08:41 Dose: 650 mg Acetylcysteine (Mucomyst) 400 mg INHALATION Q6H.RT PRN PRN Reason: sob/wheezing Albuterol/Ipratropium (Duoneb) 3 ml INHALATION Q4H.RT PRN PRN Reason: SOB &/OR WHEEZING Amoxicillin (Amoxil) 500 mg PO Q8 [facility] Last Admin: 04/10/18 05:04 Dose: 500 mg Aspirin (Aspirin, Baby) 81 mg PO DAILY@0800 [facility] Last Admin: 04/09/18 08:30 Dose: 81 mg Baclofen (Lioresal) 10 mg PO TID [facility] Last Admin: 04/10/18 05:03 Dose: 10 mg Bisacodyl (Dulcolax) 10 mg RECTAL .PRN X 1 PRN PRN Reason: Constipation Last Admin: 04/07/18 04:52 Dose: 10 mg Buspirone HCl (Buspar) 10 mg PO BID [facility] Last Admin: 04/10/18 08:10 Dose: 10 mg Calamine/Phenol (Calmoseptine Ointment) 1 applic TOPICAL 0600,2200 [facility] PRN Reason: Protocol Last Admin: 04/10/18 05:03 Dose: 1 applicatio Enoxaparin Sodium (Lovenox) 40 mg SC DAILY [facility] Last Admin: 04/09/18 08:31 Dose: 40 mg Hydrocortisone Acetate (Anusol Hc) 25 mg RECTAL BID@0600,2200 [facility] Last Admin: 04/10/18 05:03 Dose: 25 mg Lacosamide (Vimpat) 100 mg PO BID [facility] Last Admin: 04/10/18 08:10 Dose: 100 mg Levetiracetam (Keppra Tablet) 1,000 mg PO BID [facility] Last Admin: 04/10/18 08:12 Dose: 1,000 mg Lidocaine (Lidoderm Patch) 1 patch TOPICAL DAILY [facility] PRN Reason: Protocol Last Admin: 04/10/18 08:12 Dose: 1 patch Loratadine (Claritin) 10 mg PO DAILY [facility] Last Admin: 04/10/18 08:10 Dose: 10 mg Lorazepam (Ativan) 0.5 mg PO DAILY PRN PRN Reason: ANXIETY Last Admin: 04/09/18 22:28 Dose: 0.5 mg Magnesium Hydroxide (Milk Of Magnesia) 30 ml PO .PRN X 1 PRN PRN Reason: Constipation Last Admin: 04/07/18 12:48 Dose: 30 ml Magnesium Hydroxide (Milk Of Magnesia) 30 ml PO DAILY@1200 [facility] Last Admin: 04/09/18 12:15 Dose: 30 ml Melatonin (Melatonin) 3 mg PO QHS [facility] Last Admin: 04/09/18 22:27 Dose: 3 mg Methocarbamol (Methocarbamol) 750 mg PO TID PRN PRN Reason: MUSCLE SPASM Last Admin: 03/19/18 14:54 Dose: 750 mg Metoprolol Tartrate (Lopressor (Beta Jose Juan)) 25 mg PO BID [facility] Last Admin: 04/09/18 22:28 Dose: 25 mg Ondansetron HCl (Zofran Odt) 8 mg PO Q8H PRN PRN PRN Reason: NAUSEA/VOMITING Oxycodone HCl (Oxyir) 5 mg PO Q6H PRN PRN PRN Reason: SEVERE PAIN (6-10/10) Last Admin: 04/09/18 21:13 Dose: 5 mg Pantoprazole Sodium (Protonix) 40 mg PO DAILY [facility] Last Admin: 04/10/18 08:10 Dose: 40 mg Polyethylene Glycol (Miralax) 17 gm PO BID [facility] Last Admin: 04/10/18 08:09 Dose: 17 gm Quetiapine Fumarate (Seroquel) 12.5 mg PO QHS [facility] Last Admin: 04/09/18 22:27 Dose: 12.5 mg Senna/Docusate Sodium (Senokot-S, Daija-Colace) 2 tablet PO TID [facility] Last Admin: 04/10/18 05:04 Dose: 2 tablet Sodium Biphosphate/Sodium Phosphate (Fleet Enema) 1 bottle RECTAL X1 PRN PRN Reason: Constipation Last Admin: 04/07/18 22:00 Dose: 1 bottle Tamsulosin HCl (Flomax) 0.4 mg PO DAILY@1730 [facility] Last Admin: 04/09/18 17:38 Dose: 0.4 mg Venlafaxine HCl (Effexor) 75 mg PO BID [facility] Last Admin: 04/10/18 08:09 Dose: 75 mg Medical Necessity - Tobacco Use Smoking Status: Former smoker Tobacco Use: Non-smoker Assessment/Plan All Active Problems (This Medical Record has been edited. Action required.) Aortic dissection (Acute) Acute right MCA stroke (Acute) Left hemiplegia (Acute) Acute kidney injury (Acute) Seizure disorder (Acute) Dysphagia (Acute) Vocal cord paralysis (Acute) Dysphagia (Acute) Debility due to pain, complex hospitalization including due to aneurysm of his aorta requiring a decompressive craniotomy, initially recovered but had a large right sided subdural hematoma which has remained stable and has not required further craniotomy or intervention. Now presents back to the rehab unit for rehabilitation so that he can return home. Plan: - Physical therapy for gait and balance - Occupational Therapy for ADLs - Speech therapy for a aphasia and dysphasia - As needed analgesics - Bowel protocol - DVT prophylaxis: SCDs and Marino Hoses - Seizure prophylaxis with Keppra and Vimpat decrease dose to 50mg BID x 3 days then 50 mg Daily then d/c - PEG tube: Await speech therapy recommendations but if he is taking 100% of his p.o. intake we will hold his tube feeds. 03/20: No longer receiving any tube feeds. 03/21: Consider removing PEG tube in a few weeks if it is no longer in use. - Frequency, and urgency on urination => UA was positive for bacteria, => Acute cystitis with VRE patient on amoxicillin based on culture results; placed in isolation - Urine retention start low dose of Flomax 0.4mg - Pain => Fentanyl patch 25mcq - Constipation => managing symptoms - Begin titrating Vimpat from 100mg BID, to 50mg BID x 3days then daily for 3 days then off, Buspar 10mg BID to 5mg BID x 3 days, the 5mg daily x 3 days and then stop medication. D/C Seroquel 12.5mg at HS on discharge. - Hold Lovenox 2/2 rectal bleeding continue ASA at this time.
--- NOTE | 2018-04-10 10:02 | PN.NEURO_ITS ---
Subjective: Staffed in team meeting. at bedside, questions answered. With Physical therapy, he is contact guard to minimal assist for transfers. He is able to walk in the parallel bars several time about 40 feet. He is able to walk with the Jayy-walker for about 12 feet with moderate assistance. With Occupational therapy, he is minimal assist for upper body grooming, he is setup and minimal assist with shaving and brushing his teeth. He still requires maximal assist for getting his pants up and managing his urinal. With Speech therapy, he is on a mechanical soft diet with nectar thicken liquids. He is doing well on the thin liquid trials, he remembers to tuck his chin doing trials. They are continue work on his attention to task and his impulsiveness. With Nursing he is Max assist for toileting. He developed some rectal bleeding was given an Anusol suppository, his Lovenox is being held , will continue to receive his ASA. - Physical Exam General: Alert, Oriented x3, Cooperative HEENT: Atraumatic, PERRLA, EOMI, Normocephalic Neck: Supple, No JVD, Negative Carotid Bruits Lungs: Clear to auscultation, Normal air movement Cardiovascular: Regular rate, No murmurs Abdomen: Bowel Sounds Present, Soft, Non Tender Extremities: No edema, Capillary Refill Less than 3 Seconds Skin: No rashes, No breakdown Musculoskeletal: No Tenderness to Palpation of Joints or Extremities Neurological: Cranial nerves II-XII grossly intact Psych/Mental Status: Normal Affect, Appropriate Vital Signs Temp Pulse Resp BP Pulse Ox 97.6 F L 84 20 H 132/86 H 95 04/09/18 21:00 04/09/18 22:28 04/09/18 21:00 04/09/18 22:28 04/09/18 21:00 Oxygen Delivery Method Room Air Weight: 61.9 kg Body Mass Index (BMI) 18.3 Intake and Output for Last 24 Hours 04/08/18 04/09/18 04/10/18 23:59 23:59 23:59 Intake Total 960 / 960 1630 / 1630 340 / 340 Output Total 600 / 600 700 / 700 300 / 300 Balance 360 / 360 930 / 930 40 / 40 Microbiology Past 72 Hours 04/10/18 09:00 Stool Occult Blood (WILL) - Final Stool Occult Blood Positive 04/03/18 11:20 Urine Culture - Final Urine, Catheterized Vancomycin Resist. E. faecalis Laboratory Tests Past 24 Hrs 04/10/18 04/10/18 07:38 07:38 WBC 4.9 RBC 3.95 L Hgb 13.6 Hct 39.4 L MCV 99.7 H MCH 34.4 H MCHC 34.5 RDW 12.0 RDW Differential 43.3 Plt Count 274 MPV 8.7 Sodium 143 Potassium 3.7 Chloride 108 H Carbon Dioxide 28.0 Anion Gap 7 BUN 10 Creatinine 0.56 L Estim Creat Clear Calc 133.56 Est GFR (MDRD) Af Amer 195 Est GFR (MDRD) Non-Af 161 BUN/Creatinine Ratio 17.8 Glucose 86 Calcium 8.4 L Magnesium 2.3 Active Medications Acetaminophen (Tylenol) 650 mg PO Q6H PRN PRN PRN Reason: Mild Pain (0-3/10)/Headache Last Admin: 04/09/18 08:41 Dose: 650 mg Acetylcysteine (Mucomyst) 400 mg INHALATION Q6H.RT PRN PRN Reason: sob/wheezing Albuterol/Ipratropium (Duoneb) 3 ml INHALATION Q4H.RT PRN PRN Reason: SOB &/OR WHEEZING Amoxicillin (Amoxil) 500 mg PO Q8 [facility] Last Admin: 04/10/18 05:04 Dose: 500 mg Aspirin (Aspirin, Baby) 81 mg PO DAILY@0800 [facility] Last Admin: 04/09/18 08:30 Dose: 81 mg Baclofen (Lioresal) 10 mg PO TID [facility] Last Admin: 04/10/18 05:03 Dose: 10 mg Bisacodyl (Dulcolax) 10 mg RECTAL .PRN X 1 PRN PRN Reason: Constipation Last Admin: 04/07/18 04:52 Dose: 10 mg Buspirone HCl (Buspar) 10 mg PO BID [facility] Last Admin: 04/10/18 08:10 Dose: 10 mg Calamine/Phenol (Calmoseptine Ointment) 1 applic TOPICAL 0600,2200 [facility] PRN Reason: Protocol Last Admin: 04/10/18 05:03 Dose: 1 applicatio Enoxaparin Sodium (Lovenox) 40 mg SC DAILY [facility] Last Admin: 04/09/18 08:31 Dose: 40 mg Hydrocortisone Acetate (Anusol Hc) 25 mg RECTAL BID@0600,2200 [facility] Last Admin: 04/10/18 05:03 Dose: 25 mg Lacosamide (Vimpat) 100 mg PO BID [facility] Last Admin: 04/10/18 08:10 Dose: 100 mg Levetiracetam (Keppra Tablet) 1,000 mg PO BID [facility] Last Admin: 04/10/18 08:12 Dose: 1,000 mg Lidocaine (Lidoderm Patch) 1 patch TOPICAL DAILY [facility] PRN Reason: Protocol Last Admin: 04/10/18 08:12 Dose: 1 patch Loratadine (Claritin) 10 mg PO DAILY [facility] Last Admin: 04/10/18 08:10 Dose: 10 mg Lorazepam (Ativan) 0.5 mg PO DAILY PRN PRN Reason: ANXIETY Last Admin: 04/09/18 22:28 Dose: 0.5 mg Magnesium Hydroxide (Milk Of Magnesia) 30 ml PO .PRN X 1 PRN PRN Reason: Constipation Last Admin: 04/07/18 12:48 Dose: 30 ml Magnesium Hydroxide (Milk Of Magnesia) 30 ml PO DAILY@1200 [facility] Last Admin: 04/09/18 12:15 Dose: 30 ml Melatonin (Melatonin) 3 mg PO QHS [facility] Last Admin: 04/09/18 22:27 Dose: 3 mg Methocarbamol (Methocarbamol) 750 mg PO TID PRN PRN Reason: MUSCLE SPASM Last Admin: 03/19/18 14:54 Dose: 750 mg Metoprolol Tartrate (Lopressor (Beta Jose Juan)) 25 mg PO BID [facility] Last Admin: 04/09/18 22:28 Dose: 25 mg Ondansetron HCl (Zofran Odt) 8 mg PO Q8H PRN PRN PRN Reason: NAUSEA/VOMITING Oxycodone HCl (Oxyir) 5 mg PO Q6H PRN PRN PRN Reason: SEVERE PAIN (6-10/10) Last Admin: 04/09/18 21:13 Dose: 5 mg Pantoprazole Sodium (Protonix) 40 mg PO DAILY [facility] Last Admin: 04/10/18 08:10 Dose: 40 mg Polyethylene Glycol (Miralax) 17 gm PO BID [facility] Last Admin: 04/10/18 08:09 Dose: 17 gm Quetiapine Fumarate (Seroquel) 12.5 mg PO QHS [facility] Last Admin: 04/09/18 22:27 Dose: 12.5 mg Senna/Docusate Sodium (Senokot-S, Daija-Colace) 2 tablet PO TID [facility] Last Admin: 04/10/18 05:04 Dose: 2 tablet Sodium Biphosphate/Sodium Phosphate (Fleet Enema) 1 bottle RECTAL X1 PRN PRN Reason: Constipation Last Admin: 04/07/18 22:00 Dose: 1 bottle Tamsulosin HCl (Flomax) 0.4 mg PO DAILY@1730 [facility] Last Admin: 04/09/18 17:38 Dose: 0.4 mg Venlafaxine HCl (Effexor) 75 mg PO BID [facility] Last Admin: 04/10/18 08:09 Dose: 75 mg Medical Necessity - Tobacco Use Smoking Status: Former smoker Tobacco Use: Non-smoker Assessment/Plan All Active Problems (This Medical Record has been edited. Action required.) Aortic dissection (Acute) Acute right MCA stroke (Acute) Left hemiplegia (Acute) Acute kidney injury (Acute) Seizure disorder (Acute) Dysphagia (Acute) Vocal cord paralysis (Acute) Dysphagia (Acute) Debility due to pain, complex hospitalization including due to aneurysm of his aorta requiring a decompressive craniotomy, initially recovered but had a large right sided subdural hematoma which has remained stable and has not required further craniotomy or intervention. Now presents back to the rehab unit for rehabilitation so that he can return home. Plan: - Physical therapy for gait and balance - Occupational Therapy for ADLs - Speech therapy for a aphasia and dysphasia - As needed analgesics - Bowel protocol - DVT prophylaxis: SCDs and Marino Hoses - Seizure prophylaxis with Keppra and Vimpat decrease dose to 50mg BID x 3 days then 50 mg Daily then d/c - PEG tube: Await speech therapy recommendations but if he is taking 100% of his p.o. intake we will hold his tube feeds. 03/20: No longer receiving any tube feeds. 03/21: Consider removing PEG tube in a few weeks if it is no longer in use. - Frequency, and urgency on urination => UA was positive for bacteria, => Acute cystitis with VRE patient on amoxicillin based on culture results; placed in isolation - Urine retention start low dose of Flomax 0.4mg - Pain => Fentanyl patch 25mcq - Constipation => managing symptoms - Begin titrating Vimpat from 100mg BID, to 50mg BID x 3days then daily for 3 days then off, Buspar 10mg BID to 5mg BID x 3 days, the 5mg daily x 3 days and then stop medication. D/C Seroquel 12.5mg at HS on discharge. - Hold Lovenox 2/2 rectal bleeding continue ASA at this time.
[2018-04-10 11:00] VITALS: BP 116/68; PULSE 70; RESP 17; TEMP 36.7; O2SAT 95
--- NOTE | 2018-04-10 11:48 | PCM.PN.HOSP ---
Subjective: Per nursing staff patient did develop some bleeding per rectum. Anusol was applied patient's Lovenox held. This was discussed with Dr. Downing attending physician. He however did recommend to continue with patient's aspirin Objective: GENERAL: cooperative HEENT: Craniotomy scar on scalp NECK; supple, normal thyroid, CHEST: Clear to auscultation bilaterally, HEART: Regular S1 S2, no audible murmurs ABDOMEN: soft, non-tender, normoactive bowel sounds, RECTAL: deferred EXTREMITIES: No edema, no clubbing, no cyanosis. [employer] RECEPTIONIST: Awake; left upper extremity contractures paresis SKIN: No Rash Vitals/I&O's: Vital Signs Temp Pulse Resp BP Pulse Ox 97.6 F L 84 20 H 132/86 H 95 04/09/18 21:00 04/09/18 22:28 04/09/18 21:00 04/09/18 22:28 04/09/18 21:00 Oxygen Delivery Method Room Air Weight: 61.9 kg Body Mass Index (BMI) 18.3 Intake and Output for Last 24 Hours 04/08/18 04/09/18 04/10/18 23:59 23:59 23:59 Intake Total 960 / 960 1630 / 1630 340 / 340 Output Total 600 / 600 700 / 700 300 / 300 Balance 360 / 360 930 / 930 40 / 40 Microbiology Past 72 Hours 04/10/18 09:00 Stool Stool Occult Blood (WILL) - Final Occult Blood Positive 04/03/18 11:20 Urine, Catheterized Urine Culture - Final Vancomycin Resist. E. faecalis Laboratory Results 04/10/18 07:38: WBC 4.9, RBC 3.95 L, Hgb 13.6, Hct 39.4 L, MCV 99.7 H, MCH 34.4 H, MCHC 34.5, RDW 12.0, RDW Differential 43.3, Plt Count 274, MPV 8.7 04/10/18 07:38: Sodium 143, Potassium 3.7, Chloride 108 H, Carbon Dioxide 28.0, Anion Gap 7, BUN 10, Creatinine 0.56 L, Estim Creat Clear Calc 133.56, Est GFR (MDRD) Af Amer 195, Est GFR (MDRD) Non-Af 161, BUN/Creatinine Ratio 17.8, Glucose 86, Calcium 8.4 L, Magnesium 2.3 Current Medications Acetaminophen (Tylenol) 650 mg PO Q6H PRN PRN PRN Reason: Mild Pain (0-3/10)/Headache Last Admin: 04/09/18 08:41 Dose: 650 mg Acetylcysteine (Mucomyst) 400 mg INHALATION Q6H.RT PRN PRN Reason: sob/wheezing Albuterol/Ipratropium (Duoneb) 3 ml INHALATION Q4H.RT PRN PRN Reason: SOB &/OR WHEEZING Amoxicillin (Amoxil) 500 mg PO Q8 [facility] Last Admin: 04/10/18 05:04 Dose: 500 mg Aspirin (Aspirin, Baby) 81 mg PO DAILY@0800 [facility] Last Admin: 04/09/18 08:30 Dose: 81 mg Baclofen (Lioresal) 10 mg PO TID [facility] Last Admin: 04/10/18 05:03 Dose: 10 mg Bisacodyl (Dulcolax) 10 mg RECTAL .PRN X 1 PRN PRN Reason: Constipation Last Admin: 04/07/18 04:52 Dose: 10 mg Buspirone HCl (Buspar) 10 mg PO BID [facility] Last Admin: 04/10/18 08:10 Dose: 10 mg Calamine/Phenol (Calmoseptine Ointment) 1 applic TOPICAL 0600,2200 [facility] PRN Reason: Protocol Last Admin: 04/10/18 05:03 Dose: 1 applicatio Hydrocortisone Acetate (Anusol Hc) 25 mg RECTAL BID@0600,2200 [facility] Last Admin: 04/10/18 05:03 Dose: 25 mg Lacosamide (Vimpat) 100 mg PO QHS ONE Stop: 04/10/18 22:01 Lacosamide (Vimpat) 50 mg PO BID [facility] Stop: 04/13/18 22:01 Lacosamide (Vimpat) 50 mg PO DAILY [facility] Stop: 04/16/18 10:01 Levetiracetam (Keppra Tablet) 1,000 mg PO BID [facility] Levetiracetam (Keppra Tablet) 250 mg PO BID [facility] Lidocaine (Lidoderm Patch) 1 patch TOPICAL DAILY [facility] PRN Reason: Protocol Last Admin: 04/10/18 08:12 Dose: 1 patch Loratadine (Claritin) 10 mg PO DAILY [facility] Last Admin: 04/10/18 08:10 Dose: 10 mg Magnesium Hydroxide (Milk Of Magnesia) 30 ml PO .PRN X 1 PRN PRN Reason: Constipation Last Admin: 04/07/18 12:48 Dose: 30 ml Magnesium Hydroxide (Milk Of Magnesia) 30 ml PO DAILY@1200 [facility] Last Admin: 04/09/18 12:15 Dose: 30 ml Melatonin (Melatonin) 3 mg PO QHS [facility] Last Admin: 04/09/18 22:27 Dose: 3 mg Methocarbamol (Methocarbamol) 750 mg PO TID PRN PRN Reason: MUSCLE SPASM Last Admin: 03/19/18 14:54 Dose: 750 mg Metoprolol Tartrate (Lopressor (Beta Jose Juan)) 25 mg PO BID [facility] Last Admin: 04/09/18 22:28 Dose: 25 mg Ondansetron HCl (Zofran Odt) 8 mg PO Q8H PRN PRN PRN Reason: NAUSEA/VOMITING Oxycodone HCl (Oxyir) 5 mg PO Q6H PRN PRN PRN Reason: SEVERE PAIN (6-10/10) Last Admin: 04/09/18 21:13 Dose: 5 mg Pantoprazole Sodium (Protonix) 40 mg PO DAILY [facility] Last Admin: 04/10/18 08:10 Dose: 40 mg Polyethylene Glycol (Miralax) 17 gm PO BID [facility] Last Admin: 04/10/18 08:09 Dose: 17 gm Quetiapine Fumarate (Seroquel) 12.5 mg PO QHS [facility] Senna/Docusate Sodium (Senokot-S, Daija-Colace) 2 tablet PO TID [facility] Last Admin: 04/10/18 05:04 Dose: 2 tablet Sodium Biphosphate/Sodium Phosphate (Fleet Enema) 1 bottle RECTAL X1 PRN PRN Reason: Constipation Last Admin: 04/07/18 22:00 Dose: 1 bottle Tamsulosin HCl (Flomax) 0.4 mg PO DAILY@1730 [facility] Last Admin: 04/09/18 17:38 Dose: 0.4 mg Venlafaxine HCl (Effexor) 75 mg PO BID [facility] Last Admin: 04/10/18 08:09 Dose: 75 mg Medical Necessity - Tobacco Use Smoking Status: Former smoker Tobacco Use: Non-smoker Assessment/Plan All Active Problems (This Medical Record has been edited. Action required.) Aortic dissection (Acute) Acute right MCA stroke (Acute) Left hemiplegia (Acute) Acute kidney injury (Acute) Seizure disorder (Acute) Dysphagia (Acute) Vocal cord paralysis (Acute) Dysphagia (Acute) The patient is a 52 year old male with recent complicated past medical history including aortic dissection for which patient underwent surgery at [facility] which was complicated by a right MCA stroke in September 2017 status post decompressive craniectomy in September 2017 followed by vocal cord paralysis managed by ENT and subsequently had pneumonia and respiratory failure resulting into intubation in December 2017 and was discharged to TCU on 02/07/2018. Patient had PEG tube placement on 02/13/2018 and then was readmitted to [facility] on 03/17/2013 for cranioplasty and subsequently transferred to the inpatient rehab unit. Patient was noted to have, CT findings on 03/14/2018. He was transferred to [facility] as a result of midline shift and large right-sided subdural pneumocephalus. Patient was monitored in the neuro intensive care unit and transferred back to the inpatient rehab unit on 03/18/2018. 1. Physical debility secondary to Right MCA stroke with residual left-sided hemiparesis: Patient has been admitted to the inpatient rehab unit where he is currently undergoing PT and OT 2. Acute cystitis with VRE patient was managed with amoxicillin based on culture results; placed in isolation 3. Aortic dissection status post surgery 4. Seizure disorder patient is on Keppra 5. Vocal cord paralysis: Speech therapy on board. Management as per ENT. 6. Hypertension-blood pressure controlled, home medications continued with dose adjustment as needed 7 . Dysphagia: s/p PEG tube placement. also able to take PO food. 8. Depression. On effexor and seroquel 9. Constipation managed symptomatically 10. Hemorrhoidal bleeding Anusol HC applied 11. DVT prophylaxis: Lovenox held in view of #10 Code Visit Inpatient E&M: 97730 Subs Hosp L2
[2018-04-10 12:22] VITALS: PULSE 70
[2018-04-10] MEDS: Aspirin 81 MG TAB.CHEW PO (12:22)
[2018-04-10] MEDS: Magnesium Hydroxide 30 ML UDC PO (12:22)
--- NOTE | 2018-04-10 13:00 | NURSING ---
Dr. Alexis office closed, will call tomorrow for appt.
[2018-04-10 14:28] VITALS: BMI 18.3
--- NOTE | 2018-04-10 19:30 | NURSING ---
Large amount of bleeding noted dark red in color from rectum. Blood actively coming from rectum. Night hospitalist paged. Patient voicing no complaints.
--- NOTE | 2018-04-10 19:45 | NURSING ---
Dr. pari Melgar here to assess patient and assess bleeding from rectum and visualized x 2 attends with large amount of mahogony drainage that were presented in the last 15 minutes. Orders received. 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 Dr. Pari Melgar will call Dr. Vera for consult.
[2018-04-10 20:00] VITALS: BP 101/68; PULSE 76; RESP 18; TEMP 36.6; O2SAT 99
--- NOTE | 2018-04-10 20:07 | CT_ITS ---
STUDY: CT ABDOMEN AND PELVIS WITH CONTRAST REASON FOR EXAM: Male, 52 years old. PT GIVEN ENEMAS FOR CONSTIPATION AND NOW HAS RECTAL BLEEDING,VRE IN URINE HX:CVA,HTN,KIDNEY STONES,ASTHMA SURGERY:AORTIC DISSECTION REPAIR,CRANIOTOMY,LITHOTRIPSY RADIATION DOSAGE (If Supplied By Facility): CTDIvol = ( 7.74 ) mGy, DLP = ( 669.24 ) mGycm TECHNIQUE: Transaxial images were obtained from the dome of the diaphragm to the symphysis pubis without oral contrast. 100ML ml of Isovue 300 contrast was administered. Sagittal and coronal images were reconstructed. Individualized dose optimization techniques were used for this CT. COMPARISON: 03.12.15 FINDINGS: The visualized lung bases are unremarkable. The visualized portions of the heart are within normal limits. Multiple median sternotomy wires are noted consistent for cardiac surgery. There is an elevated left hemidiaphragm. Normal liver. Normal gallbladder and extrahepatic biliary system. Normal spleen. Normal pancreas. Normal bilateral adrenal glands. Normal right kidney. Normal left kidney. There is a PEG tube in place. Normal small intestine. Stool throughout the colon. There are surgical clips in the region of the appendix consistent with a prior appendectomy. Large amount of stool in the rectal vault can suggest constipation. There is inflammation in the rectum suggesting colitis. Normal abdominal aorta. Normal inferior vena cava. Normal retroperitoneum. Normal urinary bladder. There are prostatic calcifications. There is a left-sided inguinal hernia containing adipose tissue. Total left hip arthroplasty. CT/Abdomen/Pelvis W IV Cont ONLY IMPRESSION: CONSTIPATION with fecal impaction causing a colitis in the rectal vault. Electronically Signed: Dayday Welch MD at 22:57 EDT , Service support ,
--- NOTE | 2018-04-10 20:20 | PCM.PN.BLA ---
Progress Note Called because of BRPR. Patient examined at bedside BP 101/68 P 76 RR 18 T97.9 Patient denies any abdominal pain. He complains of chronic pain in R hip Lungs CTA S1, S2 present Bright red blood per rectum noted on rectal exams ASA discontinued. Protonix PO changed to IV; frequency increased to bid CT of abdomen and pelvis ordered H&H changed to every 6 hours. If hemoglobin drops considerable will transfer to inpatient acute care NSS IVF 1000ml bolus at 999ml/hr; then 150ml/hr for [address] Shelton consulted. Dr. Shelton will evaluate patient and do flexible sigmoidoscopy in am. NPO now
--- NOTE | 2018-04-10 20:25 | NURSING ---
and patient given update on new orders. Patient remains in no distress.
--- NOTE | 2018-04-10 20:35 | NURSING ---
DR MAI PHONES IN TO UNIT FOR DETAILS ON AMT OF PT'S DARK RED DRAINAGE FROM RECTUM INTO ATTENDS. INFORMED THAT PT PASSED 100 ML INITIALLY AT START OF THIS SHIFT AND SOON FOLLOWED BY 200 TO 250 ML ADDITIONAL DRAINAGE. ADVISED TO HAVE NSG NOTIFY HIM WITH ADDITIONAL BLEEDING OR IF DECREASE IN HG/HCT.
--- NOTE | 2018-04-10 20:36 | PCM.DC ---
- Discharge Diagnoses Reason(s) for Visit for Discharge Instructions: Rehab after Aortic dissection and CVA You will use the following diet at home:: Cardiac Allergies/Adverse Reactions: Allergies cat dander Allergy (Verified 02/07/18 17:19) Unknown grass pollen Allergy (Verified 02/07/18 17:19) Itching Medications to take at Discharge Budesonide/Formoterol 80-4.5 [Symbicort 80-4.5 Mcg Inhaler] 2 puff INHALATION BID 10/07/17 Acetylcysteine [Mucomyst] 400 mg INHALATION Q6H.RT PRN vial.neb. 02/26/18 Ipratropium/Albuterol Sulfate [Duoneb] 3 ml INHALATION Q4H.RT PRN ampul.neb 02/26/18 Baclofen [Lioresal] 10 mg PO TID 03/06/18 Hydrocortisone 2.5% Crm [Hytone] 1 applic TOPICAL BID 03/06/18 Levetiracetam [Keppra] 1,000 mg PO BID 03/06/18 Loratadine [Claritin] 10 mg PO DAILY 03/06/18 Melatonin 3 mg PO QHS 03/06/18 Menthol/Lanolin/Calamine/Znox [Calmoseptine Ointment] 1 applic TOPICAL 0600,2200 03/06/18 Methocarbamol [Robaxin-750] 750 mg PO TID PRN 03/06/18 Metoprolol Tartrate [Lopressor (beta john)] 25 mg PO BID 03/06/18 Oxycodone [Oxyir] 5 mg PO Q6H PRN PRN 03/06/18 Pantoprazole Sodium [Protonix] 40 mg PO DAILY 03/06/18 Polyethylene Glycol 3350 [Miralax] 17 gm PO DAILY PRN 03/06/18 Quetiapine Fumarate [Seroquel] 12.5 mg PO QHS 03/06/18 Venlafaxine HCl [Effexor] 75 mg PO BID 03/06/18 busPIRone [Buspar] 10 mg PO BID 03/06/18 Primary Care Physician: Fredy Beth MD [Primary Care Provider] - Test Results: Test results from this visit will be discussed in further detail at your follow-up appointment, if applicable. Please Follow Up With: Jarvis Cifuentes MD Proposed Discharge Date: 04/10/18
--- NOTE | 2018-04-10 20:41 | DCINST_ITS ---
- Discharge Diagnoses Reason(s) for Visit for Discharge Instructions: Rehab after Aortic dissection and CVA You will use the following diet at home:: Cardiac Allergies/Adverse Reactions: Allergies cat dander Allergy (Verified 02/07/18 17:19) Unknown grass pollen Allergy (Verified 02/07/18 17:19) Itching Medications to take at Discharge Budesonide/Formoterol 80-4.5 [Symbicort 80-4.5 Mcg Inhaler] 2 puff INHALATION BID 10/07/17 Acetylcysteine [Mucomyst] 400 mg INHALATION Q6H.RT PRN vial.neb. 02/26/18 Ipratropium/Albuterol Sulfate [Duoneb] 3 ml INHALATION Q4H.RT PRN ampul.neb 08/15 Baclofen [Lioresal] 10 mg PO TID 03/06/18 Hydrocortisone 2.5% Crm [Hytone] 1 applic TOPICAL BID 03/06/18 Levetiracetam [Keppra] 1,000 mg PO BID 03/06/18 Loratadine [Claritin] 10 mg PO DAILY 03/06/18 Melatonin 3 mg PO QHS 03/06/18 Menthol/Lanolin/Calamine/Znox [Calmoseptine Ointment] 1 applic TOPICAL 0600, 2200 03/06/18 Methocarbamol [Robaxin-750] 750 mg PO TID PRN 03/06/18 Metoprolol Tartrate [Lopressor (beta john)] 25 mg PO BID 03/06/18 Oxycodone [Oxyir] 5 mg PO Q6H PRN PRN 03/06/18 Pantoprazole Sodium [Protonix] 40 mg PO DAILY 03/06/18 Polyethylene Glycol 3350 [Miralax] 17 gm PO DAILY PRN 03/06/18 Quetiapine Fumarate [Seroquel] 12.5 mg PO QHS 03/06/18 Venlafaxine HCl [Effexor] 75 mg PO BID 03/06/18 busPIRone [Buspar] 10 mg PO BID 03/06/18 Primary Care Physician: Fredy Beth MD [Primary Care Provider] - Test Results: Test results from this visit will be discussed in further detail at your follow- up appointment, if applicable. Please Follow Up With: Jarvis Cifuentes MD Proposed Discharge Date: 04/10/18
--- NOTE | 2018-04-10 20:44 | PCM.DC.SUM ---
Discharge Date and Diagnosis Date of Admission: 03/17/18 Date of Discharge: 04/10/18 - Primary Discharge Diagnosis BRPR Physical debility secondary to Right MCA stroke with residual left-sided hemiparesis Aortic dissection status post surgery - Secondary Discharge Diagnosis Chronic Problems (This Medical Record has been edited. Action required.) Kidney stones (Chronic) Hypertension (Chronic) Asthma (Chronic) Depression (Chronic) Hospital Course and Treatment Imaging Results: 04/10/18 20:07 CT Abd [Abdomen/Pelvis W IV Cont ONLY] [CT] Stat Summary of Care Provided: The patient is a 52 year old male with recent complicated past medical history including aortic dissection for which patient underwent surgery at [facility] which was complicated by a right MCA stroke in September 2017 status post decompressive craniectomy in September 2017 followed by vocal cord paralysis managed by ENT and subsequently had pneumonia and respiratory failure resulting into intubation in December 2017 and was discharged to TCU on 02/07/2018. Patient had PEG tube placement on 02/13/2018 and then was readmitted to [facility] on 03/17/2013 for cranioplasty and subsequently transferred to the inpatient rehab unit. Patient was noted to have, CT findings on 03/14/2018. He was transferred to [facility] as a result of midline shift and large right-sided subdural pneumocephalus. Patient was monitored in the neuro intensive care unit and transferred back to the inpatient rehab unit on 03/18/2018. While at the inpatient unit patient was noted to have constipation and received enemas. He was noted to have rectal bleeding and received anusol for hemorrhoids. His lovenox was discontinued because of the rectal bleeding Patient, was noted to have progressively worsening bright rectal bleeding per rectum so he was transferred to the acute care for further management. Before the transfer NSS bolus and infusion was ordered. His aspirin was discontinued and his protonix regimen escalated. General surgeon was consulted and they will follow. Patient was examined at bedside BP 101/68 P 76 RR 18 T97.9 Lungs CTA S1, S2 present Abdomen Soft, non tender, Peg tube in place Bright red blood per rectum noted on rectal exams Decreased ROM in left lower extremities. Left arm contracted. Home Medications: Medications to take at Discharge Budesonide/Formoterol 80-4.5 [Symbicort 80-4.5 Mcg Inhaler] 2 puff INHALATION BID 10/07/17 Acetylcysteine [Mucomyst] 400 mg INHALATION Q6H.RT PRN vial.neb. 02/26/18 Ipratropium/Albuterol Sulfate [Duoneb] 3 ml INHALATION Q4H.RT PRN ampul.neb 02/26/18 Baclofen [Lioresal] 10 mg PO TID 03/06/18 Hydrocortisone 2.5% Crm [Hytone] 1 applic TOPICAL BID 03/06/18 Levetiracetam [Keppra] 1,000 mg PO BID 03/06/18 Loratadine [Claritin] 10 mg PO DAILY 03/06/18 Melatonin 3 mg PO QHS 03/06/18 Menthol/Lanolin/Calamine/Znox [Calmoseptine Ointment] 1 applic TOPICAL 0600,2200 03/06/18 Methocarbamol [Robaxin-750] 750 mg PO TID PRN 03/06/18 Metoprolol Tartrate [Lopressor (beta john)] 25 mg PO BID 03/06/18 Oxycodone [Oxyir] 5 mg PO Q6H PRN PRN 03/06/18 Pantoprazole Sodium [Protonix] 40 mg PO DAILY 03/06/18 Polyethylene Glycol 3350 [Miralax] 17 gm PO DAILY PRN 03/06/18 Quetiapine Fumarate [Seroquel] 12.5 mg PO QHS 03/06/18 Venlafaxine HCl [Effexor] 75 mg PO BID 03/06/18 busPIRone [Buspar] 10 mg PO BID 03/06/18 Primary Care Physician: Fredy Beth MD [Primary Care Provider] - Please Follow Up With: Jarvis Cifuentes MD Disposition: Acute care Hospital Minutes spent on discharge:: 35 Patient Condition:: Guarded Medical Necessity - Tobacco Use Smoking Status: Former smoker Tobacco Use: Non-smoker Meaningful Use Info Meaningful Use Diagnoses (Choose all that apply): None applicable - CVA Therapy Assessed for PT,OT and/or ST?: Yes - Ischemic Stroke Antithrombotic order at d/c?: No Reason antithrombotic not ordered: Treatment not Indicated - VTE Anticoag overlap given w/in hospital stay or rx'd at dc?: Yes Pt receive overlap for 5 days?: Yes Code Visit Inpatient E&M: 53362 SNF Disch >30 Min
--- NOTE | 2018-04-10 20:50 | DS.PCM_ITS ---
Discharge Date and Diagnosis Date of Admission: 03/17/18 Date of Discharge: 04/10/18 - Primary Discharge Diagnosis BRPR Physical debility secondary to Right MCA stroke with residual left-sided hemiparesis Aortic dissection status post surgery - Secondary Discharge Diagnosis Chronic Problems (This Medical Record has been edited. Action required.) Kidney stones (Chronic) Hypertension (Chronic) Asthma (Chronic) Depression (Chronic) Hospital Course and Treatment Imaging Results: 04/10/18 20:07 CT Abd [Abdomen/Pelvis W IV Cont ONLY] [CT] Stat Summary of Care Provided: The patient is a 52 year old male with recent complicated past medical history including aortic dissection for which patient underwent surgery at [facility] which was complicated by a right MCA stroke in September 2017 status post decompressive craniectomy in September 2017 followed by vocal cord paralysis managed by ENT and subsequently had pneumonia and respiratory failure resulting into intubation in December 2017 and was discharged to TCU on 02/07/2018. Patient had PEG tube placement on 02/13/2018 and then was readmitted to [facility] on for cranioplasty and subsequently transferred to the inpatient rehab unit. Patient was noted to have, CT findings on 03/14/2018. He was transferred to [facility] as a result of midline shift and large right-sided subdural pneumocephalus. Patient was monitored in the neuro intensive care unit and transferred back to the inpatient rehab unit on 03/18/2018. While at the inpatient unit patient was noted to have constipation and received enemas. He was noted to have rectal bleeding and received anusol for hemorrhoids. His lovenox was discontinued because of the rectal bleeding Patient, was noted to have progressively worsening bright rectal bleeding per rectum so he was transferred to the acute care for further management. Before the transfer NSS bolus and infusion was ordered. His aspirin was discontinued and his protonix regimen escalated. General surgeon was consulted and they will follow. Patient was examined at bedside BP 101/68 P 76 RR 18 T97.9 Lungs CTA S1, S2 present Abdomen Soft, non tender, Peg tube in place Bright red blood per rectum noted on rectal exams Decreased ROM in left lower extremities. Left arm contracted. Home Medications: Medications to take at Discharge Budesonide/Formoterol 80-4.5 [Symbicort 80-4.5 Mcg Inhaler] 2 puff INHALATION BID 10/07/17 Acetylcysteine [Mucomyst] 400 mg INHALATION Q6H.RT PRN vial.neb. 02/26/18 Ipratropium/Albuterol Sulfate [Duoneb] 3 ml INHALATION Q4H.RT PRN ampul.neb 08/15 Baclofen [Lioresal] 10 mg PO TID 03/06/18 Hydrocortisone 2.5% Crm [Hytone] 1 applic TOPICAL BID 03/06/18 Levetiracetam [Keppra] 1,000 mg PO BID 03/06/18 Loratadine [Claritin] 10 mg PO DAILY 03/06/18 Melatonin 3 mg PO QHS 03/06/18 Menthol/Lanolin/Calamine/Znox [Calmoseptine Ointment] 1 applic TOPICAL 0600, 2200 03/06/18 Methocarbamol [Robaxin-750] 750 mg PO TID PRN 03/06/18 Metoprolol Tartrate [Lopressor (beta john)] 25 mg PO BID 03/06/18 Oxycodone [Oxyir] 5 mg PO Q6H PRN PRN 03/06/18 Pantoprazole Sodium [Protonix] 40 mg PO DAILY 03/06/18 Polyethylene Glycol 3350 [Miralax] 17 gm PO DAILY PRN 03/06/18 Quetiapine Fumarate [Seroquel] 12.5 mg PO QHS 03/06/18 Venlafaxine HCl [Effexor] 75 mg PO BID 03/06/18 busPIRone [Buspar] 10 mg PO BID 03/06/18 Primary Care Physician: Fredy Beth MD [Primary Care Provider] - Please Follow Up With: Jarvis Cifuentes MD Disposition: Acute care Hospital Minutes spent on discharge:: 35 Patient Condition:: Guarded Medical Necessity - Tobacco Use Smoking Status: Former smoker Tobacco Use: Non-smoker Meaningful Use Info Meaningful Use Diagnoses (Choose all that apply): None applicable - CVA Therapy Assessed for PT,OT and/or ST?: Yes - Ischemic Stroke Antithrombotic order at d/c?: No Reason antithrombotic not ordered: Treatment not Indicated - VTE Anticoag overlap given w/in hospital stay or rx'd at dc?: Yes Pt receive overlap for 5 days?: Yes Code Visit Inpatient E&M: 33451 SNF Disch >30 Min
--- NOTE | 2018-04-10 21:05 | NURSING ---
x2 attempts to start IV unsuccessful and supervisor joiners notified. Patient remains in no distress. Large amount bleeding noted in attends.
[2018-04-10 21:20] LABS: Hematocrit 39.1 % (40-54); Hemoglobin 12.8 g/dl (13.0-16.5)
--- NOTE | 2018-04-10 21:36 | NURSING ---
Discharged at this time. Silk Opener present.
--- NOTE | 2018-04-10 21:40 | NURSING ---
DR MAI PAGED AND INFORMED OF PT'S HG/HCT AND THAT PT HAS PASSED ADDITIONAL 250ML PIOTR AND FOUL SMELLING LIQUID FROM RECTUM.
[2018-04-10] MEDS: 0.9% Normal Saline 1,000 ML 999 ML IV (21:48)
--- NOTE | 2018-04-10 22:00 | NURSING ---
REPORT GIVEN TO PATRICIO SAWANT IN PCU. PT ON WAY TO CT SCAN VIA CART WITH WOODEN FURNITURE POLISHER AND DOG RAISER. PHARMACY TO RELABEL IV PROTONIX AND SEND TO PCU. NS INFUSING INTO R AC. PT'S UPDATED ON PT'S ROOM TRANSFER.
--- NOTE | 2018-04-10 22:15 | NURSING ---
DR BARRIGA NOTIFIED VIA PHONE THAT PT WAS TRANSFERRED TO PCU FOR PASSING DARK RED LIQUID FROM RECTUM.
== END 2018-04-10 21:36 | disposition short-term general hospital (02) | DRG 56 ==
PROVIDERS: Internal Medicine; Nurse Practitioner Acute Care; Psychiatry & Neurology Neurology; Admitting Provider Psychiatry & Neurology Neurology; Family Provider Family Medicine; PCP Family Medicine; Visit Provider Internal Medicine
DX: I69.354 Hemiplegia and hemiparesis following cerebral infarction affecting left non-dominant side (principal); I71.00 Dissection of unspecified site of aorta; K62.5 Hemorrhage of anus and rectum; R47.01 Aphasia; N17.9 Acute kidney failure, unspecified; N30.00 Acute cystitis without hematuria; I10 Essential (primary) hypertension; F32.9 Major depressive disorder, single episode, unspecified; J45.909 Unspecified asthma, uncomplicated; G93.89 Other specified disorders of brain; K59.00 Constipation, unspecified; Z87.891 Personal history of nicotine dependence; I69.398 Other sequelae of cerebral infarction; J38.00 Paralysis of vocal cords and larynx, unspecified; F41.9 Anxiety disorder, unspecified; G40.909 Epilepsy, unspecified, not intractable, without status epilepticus; R47.02 Dysphasia; G89.29 Other chronic pain; M54.5 Low back pain; K21.9 Gastro-esophageal reflux disease without esophagitis; Z93.1 Gastrostomy status; R13.10 Dysphagia, unspecified; Z16.21 Resistance to vancomycin; B95.2 Enterococcus as the cause of diseases classified elsewhere
CPT/HCPCS: 36415; 74018; 74177; 80048; 81001; 81002; 82274; 83735; 85014; 85018; 85027; 87077; 87086; 87088; 87186; 92507; 92526; 93005; 97110; 97116; 97162; 97166; 97530; 97535; 97802; J7030; Q9967; A4216

== ENCOUNTER 2018-04-10 21:46 | Inpatient (IN) | payer OTHER, SELFPAY ==
--- NOTE | 2018-04-10 21:59 | PCM.HP.STD ---
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 Patient had PEG tube placement on 02/13/2018 and then was readmitted to [facility] on 03/17/2013 for cranioplasty and subsequently transferred to the inpatient rehab unit. Patient was transferred to [facility] as a result of midline shift and large right-sided subdural pneumocephalus on CT obtained on 03/14/2018. Patient was monitored in the neuro intensive care unit and transferred back to the inpatient rehab unit on 03/18/2018. While at the rehab unit patient was noted to have constipation and received a couple of enema. He was noted to have rectal bleeding and received anusol for hemorrhoids. His lovenox was discontinued because of the rectal bleeding On 04/10/2018 Patient, was noted to have progressively worsening bright rectal bleeding per rectum so he was transferred to the acute care for further management. Before the transfer NSS bolus and infusion was started. Past Medical History Past Medical History (Chronic Problems): Chronic Problems (This Medical Record has been edited. Action required.) Kidney stones (Chronic) Hypertension (Chronic) Asthma (Chronic) Depression (Chronic) Allergies cat dander Allergy (Verified 02/07/18 17:19) Unknown grass pollen Allergy (Verified 02/07/18 17:19) Itching Home Medications: Ambulatory Orders Medication Instructions Recorded Acetylcysteine [Mucomyst] 400 mg INHALATION Q6H.RT PRN 02/26/18 vial.neb. Ipratropium/Albuterol Sulfate 3 ml INHALATION Q4H.RT PRN 02/26/18 [Duoneb] ampul.neb Baclofen [Lioresal] 10 mg PO TID 03/06/18 Levetiracetam [Keppra] 1,000 mg PO BID 03/06/18 Loratadine [Claritin] 10 mg PO DAILY 03/06/18 Melatonin 3 mg PO QHS 03/06/18 Menthol/Lanolin/Calamine/Znox 1 applic TOPICAL 0600,2200 03/06/18 [Calmoseptine Ointment] Methocarbamol [Robaxin-750] 750 mg PO TID PRN 03/06/18 Metoprolol Tartrate [Lopressor 25 mg PO BID 03/06/18 (beta john)] Oxycodone [Oxyir] 5 mg PO Q6H PRN PRN 03/06/18 Pantoprazole Sodium [Protonix] 40 mg IV DAILY 03/06/18 Polyethylene Glycol 3350 [Miralax] 17 gm PO DAILY PRN 03/06/18 Quetiapine Fumarate [Seroquel] 12.5 mg PO QHS 03/06/18 Venlafaxine HCl [Effexor] 75 mg PO BID 03/06/18 busPIRone [Buspar] 10 mg PO BID 03/06/18 Acetaminophen 650 mg PO Q6H PRN PRN 04/11/18 Amoxicillin [Amoxil] 500 mg PO Q8H 04/11/18 Bisacodyl [Dulcolax] 10 mg RECTAL PRN PRN 04/11/18 Hydrocortisone [Anusol Hc] 25 mg RECTAL 0600,2200 04/11/18 Lacosamide [Vimpat] 100 mg PO BID 04/11/18 Lidocaine [Lidoderm Patch] 1 patch TOPICAL DAILY 04/11/18 Magnesium Hydroxide [Milk Of 30 ml PO DAILY 04/11/18 Magnesia] Na Phos,M-B/Na Phos,Di-Ba [Fleet 1 bottle RECTAL X1 PRN 04/11/18 Enema] Ondansetron [Zofran] 8 mg PO Q8H PRN PRN 04/11/18 Senna [Senokot] 2 tablet PO TID 04/11/18 Tamsulosin HCl [Flomax] 0.4 mg PO DAILY 04/11/18 Surgical History: herniorrhaphy - Inguinal., - - Aortic dissection repair 10/07/2017, Craniotomy 10/13/2017, Lithotripsy, Left ankle ORIF, Left wrist ORIF, Bilateral heel spur removal, Traceostomy. Psychiatric History: Anxiety, Depression Smoking Status: Former smoker Alcohol: None Drugs: None - *Family History Maternal History Items: No pertinent history Paternal History Items: No pertinent history Review of Systems Constitutional: Denies: Chills, Fever, Weight Change HEENT: Denies: Head Aches, Sinus Congestion, Sinus Drainage Cardiovascular: Denies: Chest Pain, Palpitations Respiratory: Denies: Cough, Shortness of breath at rest, Sputum production Gastrointestinal: Reports: Constipation, Hematochezia. Denies: Abdominal Pain, Nausea, Vomiting Genitourinary: Denies: Dysuria Musculoskeletal: Reports: - - left hip pain (chronic) Skin: Denies: Rash, Wounds Neurological: Denies: Numbness, Tingling, Focal weakness Psychiatric: Reports: Anxiety. Denies: Homicidal Ideations, Suicidal Ideations Hematologic/ Lymphatic: Denies: Easy Bruising, Easy Bleeding VTE Information - Inpt Only VTE Present on Admission: No VTE Mechan Device Prophylaxis: SCD's VTE Pharm Prophylaxis ordered?: No Reason prophylaxis not ordered:: Medical Contraindication - bleeding. Patient Problems: Active and Suspected Problems (This Medical Record has been edited. Action required.) BRBPR (bright red blood per rectum) (Acute) Cystitis (Acute) Objective: GENERAL: cooperative HEENT: Craniotomy scar on scalp NECK; supple, normal thyroid, CHEST: Clear to auscultation bilaterally, HEART: Regular S1 S2, no audible murmurs ABDOMEN: Peg tube in place, soft, non-tender, normoactive bowel sounds. RECTAL: BRPR per rectum EXTREMITIES: No edema, no clubbing, no cyanosis. 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 Left leg with reduced range of motion SKIN: No Rash Assessment/Plan All Active Problems (This Medical Record has been edited. Action required.) Aortic dissection (Acute) Acute right MCA stroke (Acute) Left hemiplegia (Acute) Acute kidney injury (Acute) Seizure disorder (Acute) Dysphagia (Acute) Vocal cord paralysis (Acute) Dysphagia (Acute) BRBPR (bright red blood per rectum) (Acute) Cystitis (Acute) The patient is a 52 year old male with recent complicated past medical history including aortic dissection for which patient underwent surgery at [facility] which was complicated by a right MCA stroke in September 2017 status post decompressive craniectomy in September 2017 followed by vocal cord paralysis managed by ENT and subsequently had pneumonia and respiratory failure resulting into intubation in December 2017 and was discharged to TCU on 02/07/2018. Patient had PEG tube placement on 02/13/2018 and then was readmitted to [facility] on 03/17/2013 for cranioplasty and subsequently transferred to the inpatient rehab unit. Patient was noted to have, CT findings on 03/14/2018. He was transferred to [facility] as a result of midline shift and large right-sided subdural pneumocephalus. Patient was monitored in the neuro intensive care unit and transferred back to the inpatient rehab unit on 03/18/2018. While at the rehab unit patient was noted to have constipation and received enemas. He was noted to have rectal bleeding and received anusol for hemorrhoids. His lovenox was discontinued because of the rectal bleeding Patient, was noted to have progressively worsening bright rectal bleeding per rectum so he was transferred to the acute care for further management. Before the transfer NSS bolus was started.General surgeon was consulted and they will follow. 1. Bright red blood per rectum. CT scan interpreted showed large stool burden. Status post normal saline bolus. Continue normal saline infusion. H&H every 6 hours We will hold laxative and stimulating agent for now pending general surgery evaluation. Aspirin held. Neurology consulted in the setting of holding aspirin while patient has had recent ischemic stroke 2. Physical debility secondary to Right MCA stroke with residual left-sided hemiparesis: Continue PT and OT. 3. Acute cystitis with VRE-Amoxicillin continued; appropriate antibiotic based on culture results; isolation continued 4. Aortic dissection status post surgery 5. Seizure disorder patient is on Keppra and Vimpat 6. Vocal cord paralysis: Speech therapy re-consulted 7. Hypertension-blood pressure controlled. Metoprolol continued with parameters. Patient is at risk for hypotension secondary to GI bleed. 8 . Dysphagia: s/p PEG tube placement. also able to take PO food. N.p.o. for now pending surgery evaluation. 9. Depression. On effexor and seroquel 10. Anxiety. buspirone continued 11. Constipation -bowel stimulants and laxatives held because of GI bleed. General surgery to evaluate patient in a.m. 12. Hemorrhoidal bleeding Anusol held. See #11 12. DVT prophylaxis: Lovenox held in view of #10. SCD ordered Code Visit Inpatient E&M: 41908 Init Hosp L3
--- NOTE | 2018-04-10 22:17 | CT_ITS ---
STUDY: CT ABDOMEN AND PELVIS WITH CONTRAST REASON FOR EXAM: Male, 52 years old. PT GIVEN ENEMAS FOR CONSTIPATION AND NOW HAS RECTAL BLEEDING,VRE IN URINE HX:CVA,HTN,KIDNEY STONES,ASTHMA SURGERY:AORTIC DISSECTION REPAIR,CRANIOTOMY,LITHOTRIPSY RADIATION DOSAGE (If Supplied By Facility): CTDIvol = ( 7.74 ) mGy, DLP = ( 669.24 ) mGycm TECHNIQUE: Transaxial images were obtained from the dome of the diaphragm to the symphysis pubis without oral contrast. 100ML ml of Isovue 300 contrast was administered. Sagittal and coronal images were reconstructed. Individualized dose optimization techniques were used for this CT. COMPARISON: 03.12.15 FINDINGS: The visualized lung bases are unremarkable. The visualized portions of the heart are within normal limits. Multiple median sternotomy wires are noted consistent for cardiac surgery. There is an elevated left hemidiaphragm. Normal liver. Normal gallbladder and extrahepatic biliary system. Normal spleen. Normal pancreas. Normal bilateral adrenal glands. Normal right kidney. Normal left kidney. There is a PEG tube in place. Normal small intestine. Stool throughout the colon. There are surgical clips in the region of the appendix consistent with a prior appendectomy. Large amount of stool in the rectal vault can suggest constipation. There is inflammation in the rectum suggesting colitis. Normal abdominal aorta. Normal inferior vena cava. Normal retroperitoneum. Normal urinary bladder. There are prostatic calcifications. There is a left-sided inguinal hernia containing adipose tissue. Total left hip arthroplasty. CT/Abdomen/Pelvis W IV Cont ONLY IMPRESSION: CONSTIPATION with fecal impaction causing a colitis in the rectal vault. Electronically Signed: Dayday Welch MD at 22:57 EDT , Service support ,
[2018-04-10 22:26] VITALS: PULSE 78
[2018-04-10 22:35] VITALS: BP 136/87; BP 136/94; PULSE 73; RESP 18; TEMP 36.7; O2SAT 98
[2018-04-10 23:02] VITALS: BMI 18.5
[2018-04-10 23:46] LABS: International Normalized Ratio 1.1
[2018-04-10] MEDS: 0.9% Normal Saline 1,000 ML 150 ML IV (23:55)
[2018-04-11] VITALS (13 sets, daily range): BP systolic 141–146; BP diastolic 83–93; PULSE 68–80; RESP 16–18; TEMP 36.9–37.2; O2SAT 99–100
[2018-04-11 01:41] LABS: Hematocrit 35.8 % (40-54); Hemoglobin 12.2 g/dl (13.0-16.5)
[2018-04-11] MEDS: oxyCODONE 5 MG Tablet PO ×2 (02:30→22:19)
[2018-04-11 06:08] LABS: Anion Gap 8 (5-15); BUN 10 mg/dL (7-18); BUN/Creat Ratio 21.3 RATIO (10-20); Calcium,Total 8.1 mg/dL (8.5-10.1); Chloride 113 mmol/L (98-107); Creatinine, Serum 0.47 mg/dL (0.70-1.30); EST Glomerular Filtration Rate 198 mL/min (>60); Est Glom Filt Rate - Afr Amer 240 mL/min (>60); Estimated Creatinine Clearance 159.14 ml/min; Glucose 99 mg/dL (74-106); Potassium 3.7 mmol/L (3.5-5.1); Sodium Level 146 mmol/L (136-145)
[2018-04-11] MEDS: 0.9% Normal Saline 1,000 ML 150 ML IV (07:15)
[2018-04-11] MEDS: AMOXICILLIN 500 MG CAPSULE PO ×3 (09:50→22:20)
[2018-04-11] MEDS: levETIRAcetam 1,000 MG Tablet 1000 MG PO ×2 (09:50→22:21)
[2018-04-11] MEDS: Lidocaine 5% Patch 1 PATCH TOPICAL (09:51)
[2018-04-11] MEDS: Loratadine 10 MG Tablet PO (09:51)
[2018-04-11] MEDS: Metoprolol Tartrate 25 MG Tablet PO ×2 (09:52→22:29)
[2018-04-11] MEDS: busPIRone 5 MG Tablet 10 MG PO ×2 (09:52→22:19)
[2018-04-11] MEDS: Methocarbamol 750 MG Tablet PO (09:53)
[2018-04-11] MEDS: Venlafaxine HCl 75 MG Tablet PO ×2 (09:55→22:21)
[2018-04-11] MEDS: Lacosamide 100 MG Tablet PO ×2 (11:31→22:20)
[2018-04-11] MEDS: Electrolyte Solution/Peg's 4000 ML GT (11:32)
--- NOTE | 2018-04-11 11:49 | PCM.CONS.GEN ---
Problem List (1) Stroke Status: Acute (2) BRBPR (bright red blood per rectum) Status: Acute Reason for Consult Date of Consultation: 04/11/18 Reason for Consultation: H/O stroke, on ASA with GI bleed/Bright red blood per rectum History of Present Illness: The patient is a 52 year old CM was admitted to [facility] on 10/07/17 with aortic dissection, post surgery course was complicated by Right MCA stroke, s/p craniectomy on 10/10/17, vocal cord paralysis S/P Botox injections by ENT, seizure d/o on Keppra and Vimpat (had 2 episodes of seizures per following his aortic dissection and stroke), had prolonged hospital course, discharged to [facility] for about 2 weeks, then had respiratory failure needing intubation on 01/17/18, was later discharged to TCU on 02/07/18, had PEG placed on 02/13/18, was readmitted to [facility] on 02/26/18 for cranioplasty, and then was admitted to [facility] IP RU 03/06/18 for > 3 hrs therapy daily, had repeat CT head done 03/14/18 while in the IP RU prior to starting ASA post surgery, and the CT head showed 13 mm midline shift, so was transferred back to [facility], where he was managed conservatively and was readmitted to [facility] RU on 03/18/18, where patient was tolerating therapies, but while in the rehab unit he developed some rectal bleeding on 04/09/18 which was thought to be due to hemorrhoids, received anusol for hemorrhoids per hospitalist recommendation, Lovenox was held on hospitalist recommendation, then yesterday (04/10/18) night patient developed progressively worsening bright red bleeding per rectum and he was transferred to PCU (acute care), ASA was held. Neurology has been consulted since patient has GI bleed, was on ASA for secondary stroke prevention. At present patient denies any BACON, visual disturbances, new onset focal motor weakness, sensory loss or speech disturbances. Patient continues to have residual right sided hemiparesis from the chronic right MCA stroke. [] Past Medical History Past Medical History (Chronic Problems): Chronic Problems (This Medical Record has been edited. Action required.) Kidney stones (Chronic) Hypertension (Chronic) Asthma (Chronic) Depression (Chronic) Allergies cat dander Allergy (Verified 02/07/18 17:19) Unknown grass pollen Allergy (Verified 02/07/18 17:19) Itching Home Medications: Ambulatory Orders Medication Instructions Recorded Acetylcysteine [Mucomyst] 400 mg INHALATION Q6H.RT PRN 02/26/18 vial.neb. Ipratropium/Albuterol Sulfate 3 ml INHALATION Q4H.RT PRN 02/26/18 [Duoneb] ampul.neb Baclofen [Lioresal] 10 mg PO TID 03/06/18 Levetiracetam [Keppra] 1,000 mg PO BID 03/06/18 Loratadine [Claritin] 10 mg PO DAILY 03/06/18 Melatonin 3 mg PO QHS 03/06/18 Menthol/Lanolin/Calamine/Znox 1 applic TOPICAL 0600,219903/06/18 [Calmoseptine Ointment] Methocarbamol [Robaxin-750] 750 mg PO TID PRN 03/06/18 Metoprolol Tartrate [Lopressor 25 mg PO BID 03/06/18 (beta john)] Oxycodone [Oxyir] 5 mg PO Q6H PRN PRN 03/06/18 Pantoprazole Sodium [Protonix] 40 mg IV DAILY 03/06/18 Polyethylene Glycol 3350 [Miralax] 17 gm PO DAILY PRN 03/06/18 Quetiapine Fumarate [Seroquel] 12.5 mg PO QHS 03/06/18 Venlafaxine HCl [Effexor] 75 mg PO BID 03/06/18 busPIRone [Buspar] 10 mg PO BID 03/06/18 Acetaminophen 650 mg PO Q6H PRN PRN 04/11/18 Amoxicillin [Amoxil] 500 mg PO Q8H 04/11/18 Bisacodyl [Dulcolax] 10 mg RECTAL PRN PRN 04/11/18 Hydrocortisone [Anusol Hc] 25 mg RECTAL 0600,0 04/11/18 Lacosamide [Vimpat] 100 mg PO BID 04/11/18 Lidocaine [Lidoderm Patch] 1 patch TOPICAL DAILY 04/11/18 Magnesium Hydroxide [Milk Of 30 ml PO DAILY 04/11/18 Magnesia] Na Phos,M-B/Na Phos,Di-Ba [Fleet 1 bottle RECTAL X1 PRN 04/11/18 Enema] Ondansetron [Zofran] 8 mg PO Q8H PRN PRN 04/11/18 Senna [Senokot] 2 tablet PO TID 04/11/18 Tamsulosin HCl [Flomax] 0.4 mg PO DAILY 04/11/18 Surgical History: herniorrhaphy - Inguinal., - - Aortic dissection repair 10/07/2017, Craniotomy 10/13/2017, Lithotripsy, Left ankle ORIF, Left wrist ORIF, Bilateral heel spur removal, Traceostomy. Psychiatric History: Anxiety, Depression Lives: Spouse/ Significant Other Smoking Status: Former smoker Alcohol: None Drugs: None - *Family History Maternal History Items: No pertinent history Paternal History Items: No pertinent history Review of Systems Constitutional: Reports: - - complete ROS negative except as documented in HPI Patient Problems: Active and Suspected Problems (This Medical Record has been edited. Action required.) BRBPR (bright red blood per rectum) (Acute) Cystitis (Acute) Stroke (Acute) - Physical Exam General: Alert HEENT: Normocephalic Neck: Supple Lungs: Normal air movement Cardiovascular: Normal S1, Normal S2 Abdomen: Bowel Sounds Present Extremities: No cyanosis Musculoskeletal: No Tenderness to Palpation of Joints or Extremities Neurological: - - consious, alert, AOA x3, CN 2-12 grossly normal with no acute changes, pupils BERL, Power 5/5 right UE/LE, 1/5 left UE/LE, sensory loss to light touch on the left side, no cerebellar signs on the right side, Reflexes + B/L B/S/T/K/A, increase tone/spasticity left UE/LE, gait deferred. Psych/Mental Status: Normal Affect Vital Signs Temp Pulse Resp BP Pulse Ox 98.8 F 74 16 142/90 H 100 04/11/18 09:48 04/11/18 09:52 04/11/18 09:48 04/11/18 09:48 04/11/18 09:48 Oxygen Delivery Method Room Air Weight: 61.9 kg Body Mass Index (BMI) 18.5 Intake and Output for Last 24 Hours 04/09/18 04/10/18 04/11/18 23:59 23:59 23:59 Intake Total 1480 / 1480 Output Total 1075 / 1075 Balance 405 / 405 Laboratory Tests Past 24 Hrs 04/10/18 04/11/18 04/11/18 23:09 01:31 05:36 Hgb 12.2 L Hct 35.8 L PT 14.0 INR 1.1 Sodium 146 H Potassium 3.7 Chloride 113 H Carbon Dioxide 25.0 Anion Gap 8 BUN 10 Creatinine 0.47 L Estim Creat Clear Calc 159.14 Est GFR (MDRD) Af Amer 240 Est GFR (MDRD) Non-Af 198 BUN/Creatinine Ratio 21.3 H Glucose 99 Calcium 8.1 L Assessment/Plan All Active Problems (This Medical Record has been edited. Action required.) Aortic dissection (Acute) Acute right MCA stroke (Acute) Left hemiplegia (Acute) Acute kidney injury (Acute) Seizure disorder (Acute) Dysphagia (Acute) Vocal cord paralysis (Acute) Dysphagia (Acute) BRBPR (bright red blood per rectum) (Acute) Cystitis (Acute) Stroke (Acute) The patient is a 52 year old CM was admitted to [facility] on 10/07/17 with aortic dissection, post surgery course was complicated by Right MCA stroke, s/p craniectomy on 10/10/17, vocal cord paralysis S/P Botox injections by ENT, seizure d/o on Keppra and Vimpat (had 2 episodes of seizures per following his aortic dissection and stroke), had prolonged hospital course, discharged to [facility] for about 2 weeks, then had respiratory failure needing intubation on 01/17/18, was later discharged to TCU on 02/07/18, had PEG placed on 02/13/18, was readmitted to [facility] on 02/26/18 for cranioplasty, and then was admitted to [facility] 03/06/18 for > 3 hrs therapy daily, had repeat CT head done 03/14/18 while in the RU prior to starting ASA post surgery, and the CT head showed 13 mm midline shift, so was transferred back to [facility], where he was managed conservatively and was readmitted to [facility] on 03/18/18, where patient was tolerating therapies, but while in the rehab unit he developed some rectal bleeding on 04/09/18 which was thought to be due to hemorrhoids, received anusol for hemorrhoids per hospitalist recommendation, Lovenox was held on hospitalist recommendation, then yesterday (04/10/18) night patient developed progressively worsening bright red bleeding per rectum and he was transferred to PCU (acute care), ASA was held. Neurology has been consulted since patient has GI bleed, was on ASA for secondary stroke prevention. At present patient denies any BACON, visual disturbances, new onset focal motor weakness, sensory loss or speech disturbances. Patient continues to have residual right sided hemiparesis from the chronic right MCA stroke. [] Impression H/O right MCA stroke-complication after aortic dissection surgery Acute and worsening rectal bleeding Plan -Neurology has been consulted since patient has h/o right MCA stroke in September 2017, is on ASA and had recent acute rectal bleeding, due to which ASA was held. Given the worsening per rectal bleeding, ASA can be held at present till he is evaluated by GI/or General surgery and has EGD/Colonoscopy, will defer further restarting of ASA to GI/General surgery/hospitalist evaluation and recommendation. -CT abdomen reported to show constipation with fecal impaction and rectal colitis. -Continue Protonix -GI/DVT prophylaxis -He was in the process of weaning off Vimpat while in the IP Rehab unit but would continue Keppra 1000 mg BID and Vimpat 100 mg BID at present till the current acute GI issues are being evaluated and managed -Fall precautions -Stroke risk factors discussed and stroke education provided -Further medical management per primary team -Please call with questions if any -Thank you for allowing us to participate in patient's care and management I spent 60 minutest taking history, doing physical examination, reviewing medical records, coordinating care and counseling the patient. Code Visit Inpatient E&M: 39045 Init Hosp L3
--- NOTE | 2018-04-11 11:54 | CON.PCM_ITS ---
Problem List (1) Stroke Status: Acute (2) BRBPR (bright red blood per rectum) Status: Acute Reason for Consult Date of Consultation: 04/11/18 Reason for Consultation: H/O stroke, on ASA with GI bleed/Bright red blood per rectum History of Present Illness: The patient is a 52 year old CM was admitted to [facility] on 10/07/17 with aortic dissection, post surgery course was complicated by Right MCA stroke, s/p craniectomy on 10/10/17, vocal cord paralysis S/P Botox injections by ENT, seizure d/o on Keppra and Vimpat (had 2 episodes of seizures per following his aortic dissection and stroke), had prolonged hospital course, discharged to [facility] for about 2 weeks, then had respiratory failure needing intubation on 01/17/18, was later discharged to TCU on 02/07/18, had PEG placed on 02/13/18, was readmitted to [facility] on 02/26/18 for cranioplasty, and then was admitted to [facility] IP RU 03/06/18 for > 3 hrs therapy daily, had repeat CT head done 03/14/18 while in the IP RU prior to starting ASA post surgery, and the CT head showed 13 mm midline shift, so was transferred back to [facility], where he was managed conservatively and was readmitted to [facility] on 03/18/18, where patient was tolerating therapies, but while in the rehab unit he developed some rectal bleeding on 04/09/18 which was thought to be due to hemorrhoids, received anusol for hemorrhoids per hospitalist recommendation, Lovenox was held on hospitalist recommendation, then yesterday (04/10/18) night patient developed progressively worsening bright red bleeding per rectum and he was transferred to PCU (acute care), ASA was held. Neurology has been consulted since patient has GI bleed, was on ASA for secondary stroke prevention. At present patient denies any BACON, visual disturbances, new onset focal motor weakness, sensory loss or speech disturbances. Patient continues to have residual right sided hemiparesis from the chronic right MCA stroke. [] Past Medical History Past Medical History (Chronic Problems): Chronic Problems (This Medical Record has been edited. Action required.) Kidney stones (Chronic) Hypertension (Chronic) Asthma (Chronic) Depression (Chronic) Allergies cat dander Allergy (Verified 02/07/18 17:19) Unknown grass pollen Allergy (Verified 02/07/18 17:19) Itching Home Medications: Ambulatory Orders Medication Instructions Recorded Acetylcysteine [Mucomyst] 400 mg INHALATION Q6H.RT PRN 02/26/18 vial.neb. Ipratropium/Albuterol Sulfate 3 ml INHALATION Q4H.RT PRN 02/26/18 [Duoneb] ampul.neb Baclofen [Lioresal] 10 mg PO TID 03/06/18 Levetiracetam [Keppra] 1,000 mg PO BID 03/06/18 Loratadine [Claritin] 10 mg PO DAILY 03/06/18 Melatonin 3 mg PO QHS 03/06/18 Menthol/Lanolin/Calamine/Znox 1 applic TOPICAL 0600,219903/06/18 [Calmoseptine Ointment] Methocarbamol [Robaxin-750] 750 mg PO TID PRN 03/06/18 Metoprolol Tartrate [Lopressor 25 mg PO BID 03/06/18 (beta john)] Oxycodone [Oxyir] 5 mg PO Q6H PRN PRN 03/06/18 Pantoprazole Sodium [Protonix] 40 mg IV DAILY 03/06/18 Polyethylene Glycol 3350 [Miralax] 17 gm PO DAILY PRN 03/06/18 Quetiapine Fumarate [Seroquel] 12.5 mg PO QHS 03/06/18 Venlafaxine HCl [Effexor] 75 mg PO BID 03/06/18 busPIRone [Buspar] 10 mg PO BID 03/06/18 Acetaminophen 650 mg PO Q6H PRN PRN 04/11/18 Amoxicillin [Amoxil] 500 mg PO Q8H 04/11/18 Bisacodyl [Dulcolax] 10 mg RECTAL PRN PRN 04/11/18 Hydrocortisone [Anusol Hc] 25 mg RECTAL 0600,0 04/11/18 Lacosamide [Vimpat] 100 mg PO BID 04/11/18 Lidocaine [Lidoderm Patch] 1 patch TOPICAL DAILY 04/11/18 Magnesium Hydroxide [Milk Of 30 ml PO DAILY 04/11/18 Magnesia] Na Phos,M-B/Na Phos,Di-Ba [Fleet 1 bottle RECTAL X1 PRN 04/11/18 Enema] Ondansetron [Zofran] 8 mg PO Q8H PRN PRN 04/11/18 Senna [Senokot] 2 tablet PO TID 04/11/18 Tamsulosin HCl [Flomax] 0.4 mg PO DAILY 04/11/18 Surgical History: herniorrhaphy - Inguinal., - - Aortic dissection repair 2017, Craniotomy 10/13/2017, Lithotripsy, Left ankle ORIF, Left wrist ORIF, Bilateral heel spur removal, Traceostomy. Psychiatric History: Anxiety, Depression Lives: Spouse/ Significant Other Smoking Status: Former smoker Alcohol: None Drugs: None - *Family History Maternal History Items: No pertinent history Paternal History Items: No pertinent history Review of Systems Constitutional: Reports: - - complete ROS negative except as documented in HPI Patient Problems: Active and Suspected Problems (This Medical Record has been edited. Action required.) BRBPR (bright red blood per rectum) (Acute) Cystitis (Acute) Stroke (Acute) - Physical Exam General: Alert HEENT: Normocephalic Neck: Supple Lungs: Normal air movement Cardiovascular: Normal S1, Normal S2 Abdomen: Bowel Sounds Present Extremities: No cyanosis Musculoskeletal: No Tenderness to Palpation of Joints or Extremities Neurological: - - consious, alert, AOA x3, CN 2-12 grossly normal with no acute changes, pupils BERL, Power 5/5 right UE/LE, 1/5 left UE/LE, sensory loss to light touch on the left side, no cerebellar signs on the right side, Reflexes + B/L B/S/T/K/A, increase tone/spasticity left UE/LE, gait deferred. Psych/Mental Status: Normal Affect Vital Signs Temp Pulse Resp BP Pulse Ox 98.8 F 74 16 142/90 H 100 04/11/18 09:48 04/11/18 09:52 04/11/18 09:48 04/11/18 09:48 04/11/18 09:48 Oxygen Delivery Method Room Air Weight: 61.9 kg Body Mass Index (BMI) 18.5 Intake and Output for Last 24 Hours 04/09/18 04/10/18 04/11/18 23:59 23:59 23:59 Intake Total 1480 / 1480 Output Total 1075 / 1075 Balance 405 / 405 Laboratory Tests Past 24 Hrs 04/10/18 04/11/18 04/11/18 23:09 01:31 05:36 Hgb 12.2 L Hct 35.8 L PT 14.0 INR 1.1 Sodium 146 H Potassium 3.7 Chloride 113 H Carbon Dioxide 25.0 Anion Gap 8 BUN 10 Creatinine 0.47 L Estim Creat Clear Calc 159.14 Est GFR (MDRD) Af Amer 240 Est GFR (MDRD) Non-Af 198 BUN/Creatinine Ratio 21.3 H Glucose 99 Calcium 8.1 L Assessment/Plan All Active Problems (This Medical Record has been edited. Action required.) Aortic dissection (Acute) Acute right MCA stroke (Acute) Left hemiplegia (Acute) Acute kidney injury (Acute) Seizure disorder (Acute) Dysphagia (Acute) Vocal cord paralysis (Acute) Dysphagia (Acute) BRBPR (bright red blood per rectum) (Acute) Cystitis (Acute) Stroke (Acute) The patient is a 52 year old CM was admitted to [facility] on 10/07/17 with aortic dissection, post surgery course was complicated by Right MCA stroke, s/p craniectomy on 10/10/17, vocal cord paralysis S/P Botox injections by ENT, seizure d/o on Keppra and Vimpat (had 2 episodes of seizures per following his aortic dissection and stroke), had prolonged hospital course, discharged to [facility] for about 2 weeks, then had respiratory failure needing intubation on 01/17/18, was later discharged to TCU on 02/07/18, had PEG placed on 02/13/18, was readmitted to [facility] on 02/26/18 for cranioplasty, and then was admitted to [facility] 03/06/18 for > 3 hrs therapy daily, had repeat CT head done 03/14/18 while in the RU prior to starting ASA post surgery, and the CT head showed 13 mm midline shift, so was transferred back to [facility], where he was managed conservatively and was readmitted to [facility] on 03/18/18, where patient was tolerating therapies, but while in the rehab unit he developed some rectal bleeding on 04/09/18 which was thought to be due to hemorrhoids, received anusol for hemorrhoids per hospitalist recommendation, Lovenox was held on hospitalist recommendation, then yesterday (04/10/18) night patient developed progressively worsening bright red bleeding per rectum and he was transferred to PCU (acute care), ASA was held. Neurology has been consulted since patient has GI bleed, was on ASA for secondary stroke prevention. At present patient denies any BACON, visual disturbances, new onset focal motor weakness, sensory loss or speech disturbances. Patient continues to have residual right sided hemiparesis from the chronic right MCA stroke. [] Impression H/O right MCA stroke-complication after aortic dissection surgery Acute and worsening rectal bleeding Plan -Neurology has been consulted since patient has h/o right MCA stroke in September 2017, is on ASA and had recent acute rectal bleeding, due to which ASA was held. Given the worsening per rectal bleeding, ASA can be held at present till he is evaluated by GI/or General surgery and has EGD/Colonoscopy, will defer further restarting of ASA to GI/General surgery/hospitalist evaluation and recommendation. -CT abdomen reported to show constipation with fecal impaction and rectal colitis. -Continue Protonix -GI/DVT prophylaxis -He was in the process of weaning off Vimpat while in the IP Rehab unit but would continue Keppra 1000 mg BID and Vimpat 100 mg BID at present till the current acute GI issues are being evaluated and managed -Fall precautions -Stroke risk factors discussed and stroke education provided -Further medical management per primary team -Please call with questions if any -Thank you for allowing us to participate in patient's care and management I spent 60 minutest taking history, doing physical examination, reviewing medical records, coordinating care and counseling the patient. Code Visit Inpatient E&M: 71442 Init Hosp L3
--- NOTE | 2018-04-11 11:59 | PCM.HP.STD ---
Problem List (1) BRBPR (bright red blood per rectum) Status: Acute History of Present Illness Date of Admission: 04/11/18 The patient is a 52 year old M who had a CVA and surgery at [facility]. He was admitted in to the rehab service here when he began to have bleeding after an enema. He had blood but has bowel movements throughout the night. He is having no abdominal pain. He says he colonoscopy 1 year ago. Past Medical History Past Medical History (Chronic Problems): Chronic Problems (This Medical Record has been edited. Action required.) Kidney stones (Chronic) Hypertension (Chronic) Asthma (Chronic) Depression (Chronic) Allergies cat dander Allergy (Verified 02/07/18 17:19) Unknown grass pollen Allergy (Verified 02/07/18 17:19) Itching Home Medications: Ambulatory Orders Medication Instructions Recorded Acetylcysteine [Mucomyst] 400 mg INHALATION Q6H.RT PRN 02/26/18 vial.neb. Ipratropium/Albuterol Sulfate 3 ml INHALATION Q4H.RT PRN 02/26/18 [Duoneb] ampul.neb Baclofen [Lioresal] 10 mg PO TID 03/06/18 Levetiracetam [Keppra] 1,000 mg PO BID 03/06/18 Loratadine [Claritin] 10 mg PO DAILY 03/06/18 Melatonin 3 mg PO QHS 03/06/18 Menthol/Lanolin/Calamine/Znox 1 applic TOPICAL 0600,2200 03/06/18 [Calmoseptine Ointment] Methocarbamol [Robaxin-750] 750 mg PO TID PRN 03/06/18 Metoprolol Tartrate [Lopressor 25 mg PO BID 03/06/18 (beta john)] Oxycodone [Oxyir] 5 mg PO Q6H PRN PRN 03/06/18 Pantoprazole Sodium [Protonix] 40 mg IV DAILY 03/06/18 Polyethylene Glycol 3350 [Miralax] 17 gm PO DAILY PRN 03/06/18 Quetiapine Fumarate [Seroquel] 12.5 mg PO QHS 03/06/18 Venlafaxine HCl [Effexor] 75 mg PO BID 03/06/18 busPIRone [Buspar] 10 mg PO BID 03/06/18 Acetaminophen 650 mg PO Q6H PRN PRN 04/11/18 Amoxicillin [Amoxil] 500 mg PO Q8H 04/11/18 Bisacodyl [Dulcolax] 10 mg RECTAL PRN PRN 04/11/18 Hydrocortisone [Anusol Hc] 25 mg RECTAL 0600,2200 04/11/18 Lacosamide [Vimpat] 100 mg PO BID 04/11/18 Lidocaine [Lidoderm Patch] 1 patch TOPICAL DAILY 04/11/18 Magnesium Hydroxide [Milk Of 30 ml PO DAILY 04/11/18 Magnesia] Na Phos,M-B/Na Phos,Di-Ba [Fleet 1 bottle RECTAL X1 PRN 04/11/18 Enema] Ondansetron [Zofran] 8 mg PO Q8H PRN PRN 04/11/18 Senna [Senokot] 2 tablet PO TID 04/11/18 Tamsulosin HCl [Flomax] 0.4 mg PO DAILY 04/11/18 Surgical History: herniorrhaphy - Inguinal., - - Aortic dissection repair 10/07/2017, Craniotomy 10/13/2017, Lithotripsy, Left ankle ORIF, Left wrist ORIF, Bilateral heel spur removal, Traceostomy. Psychiatric History: Anxiety, Depression Smoking Status: Former smoker Alcohol: None Drugs: None - *Family History Maternal History Items: No pertinent history Paternal History Items: No pertinent history Review of Systems Constitutional: Denies: Anorexia, Chills HEENT: Reports: Difficulty Swallowing, - - Patient has PEG tube Cardiovascular: Denies: Chest Pain Respiratory: Denies: Cough Gastrointestinal: Reports: Constipation, Hematochezia. Denies: Abdominal Pain, Hematemesis, Nausea, Vomiting Musculoskeletal: Reports: -. Denies: Joint Tenderness Skin: Denies: Dryness Neurological: Reports: Balance problems, Difficulty swallowing, Focal weakness VTE Information - Inpt Only VTE Present on Admission: No VTE Mechan Device Prophylaxis: SCD's Patient Problems: Active and Suspected Problems (This Medical Record has been edited. Action required.) BRBPR (bright red blood per rectum) (Acute) Cystitis (Acute) Stroke (Acute) - Physical Exam General: Alert, Oriented x3, Cooperative Neck: Supple Lungs: Clear to auscultation Abdomen: Soft, Non Tender, Non-Distended, - - PEG tube in place. On rectal exam I do not appreciate any external or internal hemorrhoids. The patient does have bright red blood mixed with stool. I do not feel any impacted stool. Vital Signs Temp Pulse Resp BP Pulse Ox 98.8 F 74 16 142/90 H 100 04/11/18 09:48 04/11/18 09:52 04/11/18 09:48 04/11/18 09:48 04/11/18 09:48 Oxygen Delivery Method Room Air Weight: 136 lb 7.458 oz Body Mass Index (BMI) 18.5 Intake and Output for Last 24 Hours 04/09/18 04/10/18 04/11/18 23:59 23:59 23:59 Intake Total 1480 / 1480 Output Total 1075 / 1075 Balance 405 / 405 Laboratory Tests Past 24 Hrs 04/10/18 04/11/18 04/11/18 23:09 01:31 05:36 Hgb 12.2 L Hct 35.8 L PT 14.0 INR 1.1 Sodium 146 H Potassium 3.7 Chloride 113 H Carbon Dioxide 25.0 Anion Gap 8 BUN 10 Creatinine 0.47 L Estim Creat Clear Calc 159.14 Est GFR (MDRD) Af Amer 240 Est GFR (MDRD) Non-Af 198 BUN/Creatinine Ratio 21.3 H Glucose 99 Calcium 8.1 L Clinical Impression(s) from Imaging Studies Abdomen/Pelvis CT 04/10/18 22:17 IMPRESSION: CONSTIPATION with fecal impaction causing a colitis in the rectal vault. Electronically Signed: Dayday Welch MD at 22:57 EDT , Service support , Assessment/Plan All Active Problems (This Medical Record has been edited. Action required.) Aortic dissection (Acute) Acute right MCA stroke (Acute) Left hemiplegia (Acute) Acute kidney injury (Acute) Seizure disorder (Acute) Dysphagia (Acute) Vocal cord paralysis (Acute) Dysphagia (Acute) BRBPR (bright red blood per rectum) (Acute) Cystitis (Acute) Stroke (Acute) 52-year-old male with bright red blood per rectum 1. The patient notes that he has been constipated and they tried giving him an enema. He has been bleeding through the night per rectum. His Lovenox was held his hemoglobin is stable. On rectal exam I did get bright red blood with soft stool but no obvious hemorrhoids. 2. The patient has CT scan which shows possible colitis of the rectum. 3. The patient will be bowel prep tonight and have flexible sigmoidoscopy and colonoscopy by Dr. Goodman in the morning. Shane Shelton MD Pager: [facility] [address] [place] [address] [address] [place] [address] Office:
--- NOTE | 2018-04-11 12:04 | HP.PCM_ITS ---
Problem List (1) BRBPR (bright red blood per rectum) Status: Acute History of Present Illness Date of Admission: 04/11/18 The patient is a 52 year old M who had a CVA and surgery at [facility]. He was admitted in to the rehab service here when he began to have bleeding after an enema. He had blood but has bowel movements throughout the night. He is having no abdominal pain. He says he colonoscopy 1 year ago. Past Medical History Past Medical History (Chronic Problems): Chronic Problems (This Medical Record has been edited. Action required.) Kidney stones (Chronic) Hypertension (Chronic) Asthma (Chronic) Depression (Chronic) Allergies cat dander Allergy (Verified 02/07/18 17:19) Unknown grass pollen Allergy (Verified 02/07/18 17:19) Itching Home Medications: Ambulatory Orders Medication Instructions Recorded Acetylcysteine [Mucomyst] 400 mg INHALATION Q6H.RT PRN 02/26/18 vial.neb. Ipratropium/Albuterol Sulfate 3 ml INHALATION Q4H.RT PRN 02/26/18 [Duoneb] ampul.neb Baclofen [Lioresal] 10 mg PO TID 03/06/18 Levetiracetam [Keppra] 1,000 mg PO BID 03/06/18 Loratadine [Claritin] 10 mg PO DAILY 03/06/18 Melatonin 3 mg PO QHS 03/06/18 Menthol/Lanolin/Calamine/Znox 1 applic TOPICAL 0600,2200 03/06/18 [Calmoseptine Ointment] Methocarbamol [Robaxin-750] 750 mg PO TID PRN 03/06/18 Metoprolol Tartrate [Lopressor 25 mg PO BID 03/06/18 (beta john)] Oxycodone [Oxyir] 5 mg PO Q6H PRN PRN 03/06/18 Pantoprazole Sodium [Protonix] 40 mg IV DAILY 03/06/18 Polyethylene Glycol 3350 [Miralax] 17 gm PO DAILY PRN 03/06/18 Quetiapine Fumarate [Seroquel] 12.5 mg PO QHS 03/06/18 Venlafaxine HCl [Effexor] 75 mg PO BID 03/06/18 busPIRone [Buspar] 10 mg PO BID 03/06/18 Acetaminophen 650 mg PO Q6H PRN PRN 04/11/18 Amoxicillin [Amoxil] 500 mg PO Q8H 04/11/18 Bisacodyl [Dulcolax] 10 mg RECTAL PRN PRN 04/11/18 Hydrocortisone [Anusol Hc] 25 mg RECTAL 0600,2200 04/11/18 Lacosamide [Vimpat] 100 mg PO BID 04/11/18 Lidocaine [Lidoderm Patch] 1 patch TOPICAL DAILY 04/11/18 Magnesium Hydroxide [Milk Of 30 ml PO DAILY 04/11/18 Magnesia] Na Phos,M-B/Na Phos,Di-Ba [Fleet 1 bottle RECTAL X1 PRN 04/11/18 Enema] Ondansetron [Zofran] 8 mg PO Q8H PRN PRN 04/11/18 Senna [Senokot] 2 tablet PO TID 04/11/18 Tamsulosin HCl [Flomax] 0.4 mg PO DAILY 04/11/18 Surgical History: herniorrhaphy - Inguinal., - - Aortic dissection repair 2017, Craniotomy 10/13/2017, Lithotripsy, Left ankle ORIF, Left wrist ORIF, Bilateral heel spur removal, Traceostomy. Psychiatric History: Anxiety, Depression Smoking Status: Former smoker Alcohol: None Drugs: None - *Family History Maternal History Items: No pertinent history Paternal History Items: No pertinent history Review of Systems Constitutional: Denies: Anorexia, Chills HEENT: Reports: Difficulty Swallowing, - - Patient has PEG tube Cardiovascular: Denies: Chest Pain Respiratory: Denies: Cough Gastrointestinal: Reports: Constipation, Hematochezia. Denies: Abdominal Pain, Hematemesis, Nausea, Vomiting Musculoskeletal: Reports: -. Denies: Joint Tenderness Skin: Denies: Dryness Neurological: Reports: Balance problems, Difficulty swallowing, Focal weakness VTE Information - Inpt Only VTE Present on Admission: No VTE Mechan Device Prophylaxis: SCD's Patient Problems: Active and Suspected Problems (This Medical Record has been edited. Action required.) BRBPR (bright red blood per rectum) (Acute) Cystitis (Acute) Stroke (Acute) - Physical Exam General: Alert, Oriented x3, Cooperative Neck: Supple Lungs: Clear to auscultation Abdomen: Soft, Non Tender, Non-Distended, - - PEG tube in place. On rectal exam I do not appreciate any external or internal hemorrhoids. The patient does have bright red blood mixed with stool. I do not feel any impacted stool. Vital Signs Temp Pulse Resp BP Pulse Ox 98.8 F 74 16 142/90 H 100 04/11/18 09:48 04/11/18 09:52 04/11/18 09:48 04/11/18 09:48 04/11/18 09:48 Oxygen Delivery Method Room Air Weight: 136 lb 7.458 oz Body Mass Index (BMI) 18.5 Intake and Output for Last 24 Hours 04/09/18 04/10/18 04/11/18 23:59 23:59 23:59 Intake Total 1480 / 1480 Output Total 1075 / 1075 Balance 405 / 405 Laboratory Tests Past 24 Hrs 04/10/18 04/11/18 04/11/18 23:09 01:31 05:36 Hgb 12.2 L Hct 35.8 L PT 14.0 INR 1.1 Sodium 146 H Potassium 3.7 Chloride 113 H Carbon Dioxide 25.0 Anion Gap 8 BUN 10 Creatinine 0.47 L Estim Creat Clear Calc 159.14 Est GFR (MDRD) Af Amer 240 Est GFR (MDRD) Non-Af 198 BUN/Creatinine Ratio 21.3 H Glucose 99 Calcium 8.1 L Clinical Impression(s) from Imaging Studies Abdomen/Pelvis CT 04/10/18 22:17 IMPRESSION: CONSTIPATION with fecal impaction causing a colitis in the rectal vault. Electronically Signed: Dayday Welch MD at 22:57 EDT , Service support , Assessment/Plan All Active Problems (This Medical Record has been edited. Action required.) Aortic dissection (Acute) Acute right MCA stroke (Acute) Left hemiplegia (Acute) Acute kidney injury (Acute) Seizure disorder (Acute) Dysphagia (Acute) Vocal cord paralysis (Acute) Dysphagia (Acute) BRBPR (bright red blood per rectum) (Acute) Cystitis (Acute) Stroke (Acute) 52-year-old male with bright red blood per rectum 1. The patient notes that he has been constipated and they tried giving him an enema. He has been bleeding through the night per rectum. His Lovenox was held his hemoglobin is stable. On rectal exam I did get bright red blood with soft stool but no obvious hemorrhoids. 2. The patient has CT scan which shows possible colitis of the rectum. 3. The patient will be bowel prep tonight and have flexible sigmoidoscopy and colonoscopy by Dr. Goodman in the morning. Shane Shelton MD Pager: [facility] [address] [place] [address] [address] [place] [address] Office:
--- NOTE | 2018-04-11 12:30 | CASEMGMT ---
SEE SAVANA MENDEZ ASSESS LINK: D/C PLAN: Undetermined. and pt wish for pt to be able to return to . If unable to get approval for , and pt would like for pt to be discharged home w/[facility]. Intro role to SAVANA MENDEZ. Pt resting in bed, awake/alert/oriented. , Dana, @ bedside. Pt and willing to participate in assessment and questions answered appropriately. *Pt and prefer for pt to return to after discharge. Both were made aware with hospital admission, insurance approval is needed for re-admission to . Sw, Suzy, made aware pt and would like to return to . * states if pt is not approved to return to , then she would like for pt to be discharged home with [facility] and requests [facility]. Pt also agreeable. Referral made to ESME Calderon, at [facility]. Order placed for [facility] for PT/OT, ST, [facility], and Home health aide. very supportive and states will be caring for pt. Pt also has other family support as well. *Pt is in need of Hospital bed and wheelchair. voices prefers [employer]. Scripts faxed to [facility] for both items and Anais confirmed faxes were received by them. *[employer] will need notified of date of discharge so wheelchair can be delivered to pt's room prior to d/c. *[employer] state can set up hospital bed in the home but it cannot be sooner than 48 hrs from time of discharge. Pt made aware and phone number given to pt so Dana can call [facility] to arrange time for them to come to house when she is available. *Per SAVANA Conrad, in , pt has appt with Dr Cifuentes on Apr 28 for Baclofen pump. Print-out of Appt schedule given to Dana. *Also per SAVANA Conrad in , pt is to have Botox injection done as an out-pt @ Dr Durant/Dr Thomson's office on day of discharge. Their office will need notified when pt is being discharged so he can go to office prior to going home. *Pt has PEG tube. It is not currently being used for enteral feedings. Yumiko @ [facility] made aware will need teaching done on PEG care and flushes. Pt and made aware of all of the above, questions answered, and they deny having any further questions at this time. CM to follow for further discharge planning needs that may arise. Tatyana LANGN RN CM
--- NOTE | 2018-04-11 12:57 | CASEMGMT ---
Per RN CM patient and his would like patient to go back to rehab for at least a week to finish out his training etc. CINDA called Mary in rehab and she said she would start the pre-cert on Saturday. She is not sure MMO will approve it, but she will try. Plan: Possible inpatient rehab pending insurance approval. Suzy SAUCEDA MSW
[2018-04-11] MEDS: Baclofen 10 MG Tablet PO ×2 (14:36→22:21)
--- NOTE | 2018-04-11 14:56 | PCM.PN.HOSP ---
Patient Problems: Active and Suspected Problems (This Medical Record has been edited. Action required.) BRBPR (bright red blood per rectum) (Acute) Cystitis (Acute) Stroke (Acute) Subjective: Patient was admitted yesterday from acute rehab after he had a rectal bleed. Patient had chronic constipation secondary to sedentary habit with multiple surgeries after he had aortic dissection. 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 He also has PEG tube but not being used. He had cranioplasty in April 2018 Patient denies abdominal pain. He had any months for constipation in rehab. He had rectal bleeding worsening yesterday with passing blood clots. Denies history of colon cancer Objective: General: Alert, Oriented x3, Cooperative, Chronically malnourished HEENT: Atraumatic, PERRLA, EOMI, Normocephalic Neck: Supple, No JVD, Negative Carotid Bruits Lungs: No rhonchi, No wheeze, Diminished Cardiovascular: Regular rate, No murmurs Abdomen: Bowel Sounds Present, Soft, Non Tender, Non-Distended, Has PEG tube; not using it Extremities: No edema, Capillary Refill Less than 3 Seconds Skin: No rashes, No breakdown Musculoskeletal: No Tenderness to Palpation of Joints or Extremities, Arthritic Changes, Muscle Wasting Neurological: Cranial nerves II-XII grossly intact, - Left-sided spasticity and contracture and hemiparesis. Speech is low volume and soft. Psych/Mental Status: Normal Affect, Appropriate Vitals/I&O's: Vital Signs Temp Pulse Resp BP Pulse Ox 98.8 F 74 16 142/90 H 100 04/11/18 09:48 04/11/18 09:52 04/11/18 09:48 04/11/18 09:48 04/11/18 09:48 Oxygen Delivery Method Room Air Weight: 136 lb 7.458 oz Body Mass Index (BMI) 18.5 Intake and Output for Last 24 Hours 04/09/18 04/10/18 04/11/18 23:59 23:59 23:59 Intake Total 8 / 2088 Output Total 1075 / 1075 Balance 1013 / 1013 Laboratory Results 04/10/18 23:09: PT 14.0, INR 1.1 04/11/18 01:31: Hgb 12.2 L, Hct 35.8 L 04/11/18 05:36: Sodium 146 H, Potassium 3.7, Chloride 113 H, Carbon Dioxide 25.0, Anion Gap 8, BUN 10, Creatinine 0.47 L, Estim Creat Clear Calc 159.14, Est GFR (MDRD) Af Amer 240, Est GFR (MDRD) Non-Af 198, BUN/Creatinine Ratio 21.3 H, Glucose 99, Calcium 8.1 L Current Medications Acetaminophen (Tylenol) 650 mg PO Q6H PRN PRN PRN Reason: MILD PAIN (-10/05) Acetylcysteine (Mucomyst) 400 mg INHALATION Q6H.RT PRN PRN Reason: sob/wheezing Albuterol/Ipratropium (Duoneb) 3 ml INHALATION Q4H.RT PRN PRN Reason: SOB &/OR WHEEZING Amoxicillin (Amoxil) 500 mg PO Q8 [facility] Last Admin: 04/11/18 14:36 Dose: 500 mg Baclofen (Lioresal) 10 mg PO TID [facility] Last Admin: 04/11/18 14:36 Dose: 10 mg Buspirone HCl (Buspar) 10 mg PO BID [facility] Last Admin: 04/11/18 09:52 Dose: 10 mg Calamine/Phenol (Calmoseptine Ointment) 1 applic TOPICAL 0600,2200 [facility] PRN Reason: Protocol Lacosamide (Vimpat) 100 mg PO BID [facility] Last Admin: 04/11/18 11:31 Dose: 100 mg Levetiracetam (Keppra Tablet) 1,000 mg PO BID [facility] Last Admin: 04/11/18 09:50 Dose: 1,000 mg Lidocaine (Lidoderm Patch) 1 patch TOPICAL DAILY [facility] PRN Reason: Protocol Last Admin: 04/11/18 09:51 Dose: 1 patch Loratadine (Claritin) 10 mg PO DAILY [facility] Last Admin: 04/11/18 09:51 Dose: 10 mg Magnesium Hydroxide (Milk Of Magnesia) 30 ml PO DAILY PRN PRN Reason: Constipation Melatonin (Melatonin) 3 mg PO QHS [facility] Methocarbamol (Methocarbamol) 750 mg PO TID PRN PRN Reason: MUSCLE SPASM Last Admin: 04/11/18 09:53 Dose: 750 mg Metoprolol Tartrate (Lopressor (Beta Jose Juan)) 25 mg PO BID [facility] Last Admin: 04/11/18 09:52 Dose: 25 mg Nutritional Formula (Lactose Free) (Ensure Enlive) 120 ml PO 4X/DAY [facility] Last Admin: 04/11/18 14:33 Dose: Not Given Ondansetron HCl (Zofran) 4 mg IV Q6H PRN PRN PRN Reason: NAUSEA/VOMITING Oxycodone HCl (Oxyir) 5 mg PO Q6H PRN PRN PRN Reason: PAIN Last Admin: 04/11/18 02:30 Dose: 5 mg Pantoprazole Sodium (Protonix) 40 mg PO DAILY [facility] Quetiapine Fumarate (Seroquel) 12.5 mg PO QHS [facility] Sodium Chloride () 5 - 30 ml IV UD PRN PRN Reason: SALINE FLUSH Tamsulosin HCl (Flomax) 0.4 mg PO DAILY@1730 [facility] Venlafaxine HCl (Effexor) 75 mg PO BID [facility] Last Admin: 04/11/18 09:55 Dose: 75 mg Zolpidem Tartrate (Ambien (Generic)) 5 mg PO QHS PRN PRN PRN Reason: INSOMNIA Medical Necessity - Tobacco Use Smoking Status: Former smoker Assessment/Plan All Active Problems (This Medical Record has been edited. Action required.) Aortic dissection (Acute) Acute right MCA stroke (Acute) Left hemiplegia (Acute) Acute kidney injury (Acute) Seizure disorder (Acute) Dysphagia (Acute) Vocal cord paralysis (Acute) Dysphagia (Acute) BRBPR (bright red blood per rectum) (Acute) Cystitis (Acute) Stroke (Acute) There is a 52-year-old gentleman who was admitted 04/10/2018 from acute rehab after he had a rectal bleed. Patient had chronic constipation secondary to sedentary habit with multiple surgeries after he had aortic dissection. 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 He also has PEG tube but not being used. He had cranioplasty in April 2018 Patient denies abdominal pain. He had any months for constipation in rehab. He had rectal bleeding worsening yesterday with passing blood clots. Denies history of colon cancer 1. Lower GI bleed, CT scan interpreted showed large stool burden. Continue normal saline infusion. H&H every 6 hours. Hemoglobin is stable 12.2 g percent. It dropped from 13.6 but probably might have been hemoconcentration We will hold laxative and stimulating agent for now pending general surgery evaluation. Aspirin held. Discussed with neurologist, Dr. Downing. Safely hold the aspirin until colonoscopy or further definitive recommendation is made. 2. Physical debility secondary to Right MCA stroke with residual left-sided hemiparesis: Continue PT and OT. 3. Acute cystitis with VRE-Amoxicillin continued; appropriate antibiotic based on culture results; isolation continued. Amoxicillin was started on 04/07/2018 4. Aortic dissection status post surgery 5. Seizure disorder patient is on Keppra and Vimpat 6. Vocal cord paralysis: Speech therapy re-consulted 7. Hypertension-blood pressure controlled. Metoprolol continued with parameters. Patient is at risk for hypotension secondary to GI bleed. 8 . Dysphagia: s/p PEG tube placement. also able to take PO food. N.p.o. for now pending surgery evaluation. 9. Depression. On effexor and seroquel 10. Anxiety. buspirone continued 11. Constipation -bowel stimulants and laxatives held because of GI bleed. General surgery to evaluate patient in a.m. 12. Hemorrhoidal bleeding Anusol held. See #11 12. DVT prophylaxis: Lovenox held in view of #10. SCD ordered Code Visit Inpatient E&M: 27769 [facility] Hosp L3
[2018-04-11] MEDS: Tamsulosin HCl 0.4 MG Capsule PO (17:11)
--- NOTE | 2018-04-11 20:12 | NURSING ---
Bowel prep completed at 20:10
[2018-04-11] MEDS: Pantoprazole Sodium 40 MG Tablet PO (22:20)
[2018-04-11] MEDS: Menthol/Lanolin/Calamine/Znox 113 GM Tube 1 APPLIC TOPICAL (22:20)
[2018-04-11] MEDS: QUEtiapine 25 MG Tablet 12.5 MG PO (22:20)
[2018-04-11] MEDS: MELATONIN 3 MG TABLET PO (22:21)
[2018-04-12] VITALS (19 sets, daily range): BP systolic 117–135; BP diastolic 50–91; PULSE 59–87; RESP 14–20; TEMP 36.6–37.4; O2SAT 95–100
--- NOTE | 2018-04-12 02:00 | NURSING ---
No orders placed in [facility] by MD for colonoscopy or to get informed signed consent. Will inform surgery when they come to get patient this AM.
[2018-04-12 04:53] LABS: Absolute Lymphocyte Count 2.24 X10^3/ul (0.83-4.51); Absolute Neutrophil Count 2.5 X10^3/uL (2.0-7.7); Basophil# 0.04 X10^3/uL; Basophil% 0.8 % (0-1); Eosinophils% 3.8 % (0-5); Hematocrit 34.4 % (40-54); Hemoglobin 12.1 g/dl (13.0-16.5); Lymphocyte # 2.24 X10^3/ul (4.0); Lymphocyte % 42.4 % (19-41); Mean Corp Hgb Conc 35.2 g/gl (32-36); Mean Corpuscular Hgb 34.7 pg (27.0-32.0); Mean Corpuscular Volume 98.6 fL (80-94); Mean Platelet Vol. 8.8 fl (6.2-12.0); Monocyte# 0.31 X10^3/uL; Monocyte% 5.9 % (0-10); Neutrophil # 2.48 X10^3/uL (2.7-7.7); Neutrophil % 46.9 % (47-70); Platelet Count 299 K/mm3 (150-450); RBC Distribution Width CV 11.7 % (11.6-14.6); RBC Distribution Width SD 40.8 fl (35.1-43.9); Red Blood Count 3.49 M/mm3 (4.6-6.2); White Blood Count 5.3 K/mm3 (4.4-11.0)
[2018-04-12 04:55] LABS: POSITIVE COUNT NO; POSITIVE DIFFERENTIAL NO; POSITIVE MORPHOLOGY NO
[2018-04-12] MEDS: oxyCODONE 5 MG Tablet PO ×2 (04:58→12:41)
[2018-04-12] MEDS: Baclofen 10 MG Tablet PO ×3 (05:00→21:37)
[2018-04-12] MEDS: Menthol/Lanolin/Calamine/Znox 113 GM Tube 1 APPLIC TOPICAL ×2 (05:00→21:38)
[2018-04-12] MEDS: AMOXICILLIN 500 MG CAPSULE PO ×3 (05:00→21:37)
[2018-04-12 05:06] LABS: Anion Gap 7 (5-15); BUN 6 mg/dL (7-18); BUN/Creat Ratio 16.5 RATIO (10-20); Calcium,Total 8.2 mg/dL (8.5-10.1); Chloride 106 mmol/L (98-107); Creatinine, Serum 0.36 mg/dL (0.70-1.30); EST Glomerular Filtration Rate 267 mL/min (>60); Est Glom Filt Rate - Afr Amer 323 mL/min (>60); Estimated Creatinine Clearance 207.77 ml/min; Glucose 79 mg/dL (74-106); Potassium 3.4 mmol/L (3.5-5.1); Sodium Level 140 mmol/L (136-145)
--- NOTE | 2018-04-12 06:55 | PCM.OPRPT ---
Problem List (1) BRBPR (bright red blood per rectum) Status: Acute Report of Operation Date of Procedure: 04/12/18 Pre-Operative Diagnosis: Rectal bleeding Post-Operative Diagnosis: Same Surgery/Procedure Performed:: Colonoscopy Type of Anesthesia:: MAC Anesthesiologist: Anthony Berman Description of Procedure: Patient was brought into the endoscopy and placed in the left lateral decubitus position. He was given graded anesthesia. The scope was inserted into the rectum and directed through the sigmoid colon, descending colon, transverse colon, ascending colon, to the cecum. Operative findings: 1. Cecum: Normal appearance no mass lesions normal ileocecal valve no blood identified. 2. Ascending colon: Normal appearance no mass lesions no blood identified. 3. Transverse colon: Normal appearance no mass lesions no blood identified. 4. Descending colon: Normal appearance no mass lesions no blood identified. Scattered diverticulum. 5. Sigmoid colon: Normal appearance no mass lesions no blood identified scattered diverticulum identified. 6. Rectum: Normal appearance no mass lesions no blood identified retroflexion did not reveal any signs of hemorrhoids. Patient had an extremely poor bowel prep not adequate to identify any small polyps whatsoever the thick fluid was not able to be aspirated through the scope. And it did not easily washed away. There was no signs of any bleeding. There were no large masses identified. The patient does not have any hemorrhoids. Bleeding source most likely from a diverticulum. Since the bowel prep was so poor he probably should have another colonoscopy within 3 years. - Admit VTE Documentation VTE Present on Admission: No VTE Mechan Device Prophylaxis: None VTE Pharm Prophylaxis ordered?: No Reason prophylaxis not ordered:: Treatment Not Indicated
[2018-04-12] MEDS: Lidocaine 5% Patch 1 PATCH TOPICAL (09:00)
[2018-04-12] MEDS: Loratadine 10 MG Tablet PO (09:01)
[2018-04-12] MEDS: busPIRone 5 MG Tablet 10 MG PO ×2 (09:01→21:37)
[2018-04-12] MEDS: Pantoprazole Sodium 40 MG Tablet PO (09:01)
[2018-04-12] MEDS: levETIRAcetam 1,000 MG Tablet 1000 MG PO ×2 (09:01→21:37)
[2018-04-12] MEDS: Venlafaxine HCl 75 MG Tablet PO ×2 (09:02→21:37)
[2018-04-12] MEDS: Lacosamide 100 MG Tablet PO ×2 (11:20→21:37)
--- NOTE | 2018-04-12 12:38 | PCM.PN.HOSP ---
Patient Problems: Active and Suspected Problems (This Medical Record has been edited. Action required.) BRBPR (bright red blood per rectum) (Acute) Cystitis (Acute) Stroke (Acute) Subjective: Patient had colonoscopy in the morning today. It was poor colon prep in view of decreases but no major or significant mass was found. There is possibility of a small polyp missed in view of poor colon prep mentioned in endoscopy report. No hemorrhoidal mass was found. Might be diverticular bleed. Vitals/I&O's: Vital Signs Temp Pulse Resp BP Pulse Ox 97.9 F 64 18 134/87 H 98 04/12/18 08:57 04/12/18 11:02 04/12/18 08:57 04/12/18 09:01 04/12/18 08:57 Oxygen Delivery Method Room Air Weight: 136 lb 7.458 oz Body Mass Index (BMI) 18.5 Intake and Output for Last 24 Hours 04/10/18 04/11/18 04/12/18 23:59 23:59 23:59 Intake Total 4088 / 4088 518 / 518 Output Total 1075 / 1075 750 / 750 Balance 3013 / 3013 -232 / -232 Laboratory Results 04/12/18 04:20: WBC 5.3, RBC 3.49 L, Hgb 12.1 L, Hct 34.4 L, MCV 98.6 H, MCH 34.7 H, MCHC 35.2, RDW 11.7, RDW Differential 40.8, Plt Count 299, MPV 8.8, Immature Gran % (Auto) 0.200, Neut % (Auto) 46.9 L, Lymph % (Auto) 42.4 H, [place] % (Auto) 5.9, Eos % (Auto) 3.8, Baso % (Auto) 0.8, Absolute Neuts (auto) 2.5, Absolute Lymphs (auto) 2.24, Total Counted Not Reportable 04/12/18 04:20: Sodium 140, Potassium 3.4 L, Chloride 106, Carbon Dioxide 27.0, Anion Gap 7, BUN 6 L, Creatinine 0.36 L, Estim Creat Clear Calc 207.77, Est GFR (MDRD) Af Amer 323, Est GFR (MDRD) Non-Af 267, BUN/Creatinine Ratio 16.5, Glucose 79, Calcium 8.2 L Current Medications Acetaminophen (Tylenol) 650 mg PO Q6H PRN PRN PRN Reason: MILD PAIN (1-3/10) Acetylcysteine (Mucomyst) 400 mg INHALATION Q6H.RT PRN PRN Reason: sob/wheezing Albuterol/Ipratropium (Duoneb) 3 ml INHALATION Q4H.RT PRN PRN Reason: SOB &/OR WHEEZING Amoxicillin (Amoxil) 500 mg PO Q8 [facility] Last Admin: 04/12/18 05:00 Dose: 500 mg Baclofen (Lioresal) 10 mg PO TID [facility] Last Admin: 04/12/18 05:00 Dose: 10 mg Buspirone HCl (Buspar) 10 mg PO BID [facility] Last Admin: 04/12/18 09:01 Dose: 10 mg Calamine/Phenol (Calmoseptine Ointment) 1 applic TOPICAL 0600,2200 [facility] PRN Reason: Protocol Last Admin: 04/12/18 05:00 Dose: 1 applicatio Lacosamide (Vimpat) 100 mg PO BID [facility] Last Admin: 04/12/18 11:20 Dose: 100 mg Levetiracetam (Keppra Tablet) 1,000 mg PO BID [facility] Last Admin: 04/12/18 09:01 Dose: 1,000 mg Lidocaine (Lidoderm Patch) 1 patch TOPICAL DAILY [facility] PRN Reason: Protocol Last Admin: 04/12/18 09:00 Dose: 1 patch Loratadine (Claritin) 10 mg PO DAILY [facility] Last Admin: 04/12/18 09:01 Dose: 10 mg Magnesium Hydroxide (Milk Of Magnesia) 30 ml PO DAILY PRN PRN Reason: Constipation Melatonin (Melatonin) 3 mg PO QHS [facility] Last Admin: 04/11/18 22:21 Dose: 3 mg Methocarbamol (Methocarbamol) 750 mg PO TID PRN PRN Reason: MUSCLE SPASM Last Admin: 04/11/18 09:53 Dose: 750 mg Metoprolol Tartrate (Lopressor (Beta Jose Juan)) 25 mg PO BID [facility] Last Admin: 04/12/18 09:01 Dose: Not Given Nutritional Formula (Lactose Free) (Ensure Enlive) 120 ml PO 4X/DAY [facility] Last Admin: 04/12/18 08:47 Dose: Not Given Ondansetron HCl (Zofran) 4 mg IV Q6H PRN PRN PRN Reason: NAUSEA/VOMITING Oxycodone HCl (Oxyir) 5 mg PO Q6H PRN PRN PRN Reason: PAIN Last Admin: 04/12/18 04:58 Dose: 5 mg Pantoprazole Sodium (Protonix) 40 mg PO DAILY [facility] Last Admin: 04/12/18 09:01 Dose: 40 mg Quetiapine Fumarate (Seroquel) 12.5 mg PO QHS [facility] Last Admin: 04/11/18 22:20 Dose: 12.5 mg Sodium Chloride () 5 - 30 ml IV UD PRN PRN Reason: SALINE FLUSH Tamsulosin HCl (Flomax) 0.4 mg PO DAILY@1730 [facility] Last Admin: 04/11/18 17:11 Dose: 0.4 mg Venlafaxine HCl (Effexor) 75 mg PO BID [facility] Last Admin: 04/12/18 09:02 Dose: 75 mg Zolpidem Tartrate (Ambien (Generic)) 5 mg PO QHS PRN PRN PRN Reason: INSOMNIA Medical Necessity - Tobacco Use Smoking Status: Former smoker Assessment/Plan All Active Problems (This Medical Record has been edited. Action required.) Aortic dissection (Acute) Acute right MCA stroke (Acute) Left hemiplegia (Acute) Acute kidney injury (Acute) Seizure disorder (Acute) Dysphagia (Acute) Vocal cord paralysis (Acute) Dysphagia (Acute) BRBPR (bright red blood per rectum) (Acute) Cystitis (Acute) Stroke (Acute) There is a 52-year-old gentleman who was admitted 04/10/2018 from acute rehab after he had a rectal bleed. Patient had chronic constipation secondary to sedentary habit with multiple surgeries after he had aortic dissection. 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 He also has PEG tube but not being used. He had cranioplasty in April 2018 Patient denies abdominal pain. He had any months for constipation in rehab. He had rectal bleeding worsening yesterday with passing blood clots. Denies history of colon cancer 1. Lower GI bleed, most probably from diverticular bleed: No signs of active bleeding on colonoscopy. No significant or large mass lesion was found. Scattered diverticulum found in descending colon and sigmoid colon. She had good bowel movement today. Started on diet. Dr. Goodman colonoscopy report appreciated. CT scan interpreted showed large stool burden. Hemoglobin is stable 12.2 g percent. It dropped from 13.6 but probably might have been hemoconcentration We will hold laxative and stimulating agent for now pending general surgery evaluation. Aspirin held. Discussed with neurologist, Dr. Downing. Will hold aspirin for about 1 week. 2. Physical debility secondary to Right MCA stroke with residual left-sided hemiparesis: Continue PT and OT. 3. Acute cystitis with VRE-Amoxicillin continued; appropriate antibiotic based on culture results; isolation continued. Amoxicillin was started on 04/07/2018. 4. Aortic dissection status post surgery 5. Seizure disorder patient is on Keppra and Vimpat 6. Vocal cord paralysis: Speech therapy re-consulted 7. Hypertension-blood pressure controlled. Metoprolol continued with parameters. Patient is at risk for hypotension secondary to GI bleed. 8 . Dysphagia: s/p PEG tube placement. also able to take PO food. N.p.o. for now pending surgery evaluation. 9. Depression. On effexor and seroquel 10. Anxiety. buspirone continued 11. Constipation -bowel stimulants and laxatives held because of GI bleed. General surgery to evaluate patient in a.m. 12. DVT prophylaxis: Lovenox held in view of #10. SCD ordered Patient had to stay until Saturday pending precertification from insurance for transfer to rehab Code Visit Inpatient E&M: 27588 Subs Hosp L2
--- NOTE | 2018-04-12 12:43 | PN_ITS ---
Patient Problems: Active and Suspected Problems (This Medical Record has been edited. Action required.) BRBPR (bright red blood per rectum) (Acute) Cystitis (Acute) Stroke (Acute) Subjective: Patient had colonoscopy in the morning today. It was poor colon prep in view of decreases but no major or significant mass was found. There is possibility of a small polyp missed in view of poor colon prep mentioned in endoscopy report. No hemorrhoidal mass was found. Might be diverticular bleed. Vitals/I&O's: Vital Signs Temp Pulse Resp BP Pulse Ox 97.9 F 64 18 134/87 H 98 04/12/18 08:57 04/12/18 11:02 04/12/18 08:57 04/12/18 09:01 04/12/18 08:57 Oxygen Delivery Method Room Air Weight: 136 lb 7.458 oz Body Mass Index (BMI) 18.5 Intake and Output for Last 24 Hours 04/10/18 04/11/18 04/12/18 23:59 23:59 23:59 Intake Total 4088 / 4088 518 / 518 Output Total 1075 / 1075 750 / 750 Balance 3013 / 3013 -232 / -232 Laboratory Results 04/12/18 04:20: WBC 5.3, RBC 3.49 L, Hgb 12.1 L, Hct 34.4 L, MCV 98.6 H, MCH 34.7 H, MCHC 35.2, RDW 11.7, RDW Differential 40.8, Plt Count 299, MPV 8.8, Immature Gran % (Auto) 0.200, Neut % (Auto) 46.9 L, Lymph % (Auto) 42.4 H, [place] % (Auto) 5.9, Eos % (Auto) 3.8, Baso % (Auto) 0.8, Absolute Neuts (auto) 2.5, Absolute Lymphs (auto) 2.24, Total Counted Not Reportable 04/12/18 04:20: Sodium 140, Potassium 3.4 L, Chloride 106, Carbon Dioxide 27.0, Anion Gap 7, BUN 6 L, Creatinine 0.36 L, Estim Creat Clear Calc 207.77, Est GFR (MDRD) Af Amer 323, Est GFR (MDRD) Non-Af 267, BUN/Creatinine Ratio 16.5, Glucose 79, Calcium 8.2 L Current Medications Acetaminophen (Tylenol) 650 mg PO Q6H PRN PRN PRN Reason: MILD PAIN (1-3/10) Acetylcysteine (Mucomyst) 400 mg INHALATION Q6H.RT PRN PRN Reason: sob/wheezing Albuterol/Ipratropium (Duoneb) 3 ml INHALATION Q4H.RT PRN PRN Reason: SOB &/OR WHEEZING Amoxicillin (Amoxil) 500 mg PO Q8 [facility] Last Admin: 04/12/18 05:00 Dose: 500 mg Baclofen (Lioresal) 10 mg PO TID [facility] Last Admin: 04/12/18 05:00 Dose: 10 mg Buspirone HCl (Buspar) 10 mg PO BID [facility] Last Admin: 04/12/18 09:01 Dose: 10 mg Calamine/Phenol (Calmoseptine Ointment) 1 applic TOPICAL 0600,2200 [facility] PRN Reason: Protocol Last Admin: 04/12/18 05:00 Dose: 1 applicatio Lacosamide (Vimpat) 100 mg PO BID [facility] Last Admin: 04/12/18 11:20 Dose: 100 mg Levetiracetam (Keppra Tablet) 1,000 mg PO BID [facility] Last Admin: 04/12/18 09:01 Dose: 1,000 mg Lidocaine (Lidoderm Patch) 1 patch TOPICAL DAILY [facility] PRN Reason: Protocol Last Admin: 04/12/18 09:00 Dose: 1 patch Loratadine (Claritin) 10 mg PO DAILY [facility] Last Admin: 04/12/18 09:01 Dose: 10 mg Magnesium Hydroxide (Milk Of Magnesia) 30 ml PO DAILY PRN PRN Reason: Constipation Melatonin (Melatonin) 3 mg PO QHS [facility] Last Admin: 04/11/18 22:21 Dose: 3 mg Methocarbamol (Methocarbamol) 750 mg PO TID PRN PRN Reason: MUSCLE SPASM Last Admin: 04/11/18 09:53 Dose: 750 mg Metoprolol Tartrate (Lopressor (Beta Jose Juan)) 25 mg PO BID [facility] Last Admin: 04/12/18 09:01 Dose: Not Given Nutritional Formula (Lactose Free) (Ensure Enlive) 120 ml PO 4X/DAY [facility] Last Admin: 04/12/18 08:47 Dose: Not Given Ondansetron HCl (Zofran) 4 mg IV Q6H PRN PRN PRN Reason: NAUSEA/VOMITING Oxycodone HCl (Oxyir) 5 mg PO Q6H PRN PRN PRN Reason: PAIN Last Admin: 04/12/18 04:58 Dose: 5 mg Pantoprazole Sodium (Protonix) 40 mg PO DAILY [facility] Last Admin: 04/12/18 09:01 Dose: 40 mg Quetiapine Fumarate (Seroquel) 12.5 mg PO QHS [facility] Last Admin: 04/11/18 22:20 Dose: 12.5 mg Sodium Chloride () 5 - 30 ml IV UD PRN PRN Reason: SALINE FLUSH Tamsulosin HCl (Flomax) 0.4 mg PO DAILY@1730 [facility] Last Admin: 04/11/18 17:11 Dose: 0.4 mg Venlafaxine HCl (Effexor) 75 mg PO BID [facility] Last Admin: 04/12/18 09:02 Dose: 75 mg Zolpidem Tartrate (Ambien (Generic)) 5 mg PO QHS PRN PRN PRN Reason: INSOMNIA Medical Necessity - Tobacco Use Smoking Status: Former smoker Assessment/Plan All Active Problems (This Medical Record has been edited. Action required.) Aortic dissection (Acute) Acute right MCA stroke (Acute) Left hemiplegia (Acute) Acute kidney injury (Acute) Seizure disorder (Acute) Dysphagia (Acute) Vocal cord paralysis (Acute) Dysphagia (Acute) BRBPR (bright red blood per rectum) (Acute) Cystitis (Acute) Stroke (Acute) There is a 52-year-old gentleman who was admitted 04/10/2018 from acute rehab after he had a rectal bleed. Patient had chronic constipation secondary to sedentary habit with multiple surgeries after he had aortic dissection. 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 He also has PEG tube but not being used. He had cranioplasty in April 2018 Patient denies abdominal pain. He had any months for constipation in rehab. He had rectal bleeding worsening yesterday with passing blood clots. Denies history of colon cancer 1. Lower GI bleed, most probably from diverticular bleed: No signs of active bleeding on colonoscopy. No significant or large mass lesion was found. Scattered diverticulum found in descending colon and sigmoid colon. She had good bowel movement today. Started on diet. Dr. Goodman colonoscopy report appreciated. CT scan interpreted showed large stool burden. Hemoglobin is stable 12.2 g percent. It dropped from 13.6 but probably might have been hemoconcentration We will hold laxative and stimulating agent for now pending general surgery evaluation. Aspirin held. Discussed with neurologist, Dr. Downing. Will hold aspirin for about 1 week. 2. Physical debility secondary to Right MCA stroke with residual left-sided hemiparesis: Continue PT and OT. 3. Acute cystitis with VRE-Amoxicillin continued; appropriate antibiotic based on culture results; isolation continued. Amoxicillin was started on 04/07/2018. 4. Aortic dissection status post surgery 5. Seizure disorder patient is on Keppra and Vimpat 6. Vocal cord paralysis: Speech therapy re-consulted 7. Hypertension-blood pressure controlled. Metoprolol continued with parameters. Patient is at risk for hypotension secondary to GI bleed. 8 . Dysphagia: s/p PEG tube placement. also able to take PO food. N.p.o. for now pending surgery evaluation. 9. Depression. On effexor and seroquel 10. Anxiety. buspirone continued 11. Constipation -bowel stimulants and laxatives held because of GI bleed. General surgery to evaluate patient in a.m. 12. DVT prophylaxis: Lovenox held in view of #10. SCD ordered Patient had to stay until Saturday pending precertification from insurance for transfer to rehab Code Visit Inpatient E&M: 28403 Subs Hosp L2
[2018-04-12] MEDS: Tamsulosin HCl 0.4 MG Capsule PO (17:46)
[2018-04-12] MEDS: QUEtiapine 25 MG Tablet 12.5 MG PO (21:37)
[2018-04-12] MEDS: MELATONIN 3 MG TABLET PO (21:37)
[2018-04-12] MEDS: Metoprolol Tartrate 25 MG Tablet PO (21:37)
[2018-04-13] VITALS (13 sets, daily range): BP systolic 102–151; BP diastolic 62–90; PULSE 44–89; RESP 16–18; TEMP 36.5–37.1; O2SAT 95–100
[2018-04-13] MEDS: Menthol/Lanolin/Calamine/Znox 113 GM Tube 1 APPLIC TOPICAL ×2 (05:29→22:31)
[2018-04-13] MEDS: AMOXICILLIN 500 MG CAPSULE PO ×3 (05:29→22:30)
[2018-04-13] MEDS: Baclofen 10 MG Tablet PO ×3 (05:29→22:31)
[2018-04-13] MEDS: Pantoprazole Sodium 40 MG Tablet PO (08:44)
[2018-04-13] MEDS: oxyCODONE 5 MG Tablet PO ×2 (08:44→17:59)
[2018-04-13] MEDS: Lacosamide 100 MG Tablet PO ×2 (08:44→22:30)
[2018-04-13] MEDS: Loratadine 10 MG Tablet PO (08:45)
[2018-04-13] MEDS: levETIRAcetam 1,000 MG Tablet 1000 MG PO ×2 (08:45→22:30)
[2018-04-13] MEDS: busPIRone 5 MG Tablet 10 MG PO ×2 (08:45→22:30)
[2018-04-13] MEDS: Lidocaine 5% Patch 1 PATCH TOPICAL (08:45)
[2018-04-13] MEDS: Venlafaxine HCl 75 MG Tablet PO ×2 (08:45→22:30)
--- NOTE | 2018-04-13 10:31 | PCM.PN.SRG ---
Patient Problems: Active and Suspected Problems (This Medical Record has been edited. Action required.) BRBPR (bright red blood per rectum) (Acute) Cystitis (Acute) Stroke (Acute) Subjective: No further rectal bleeding at this time. Objective: Abdomen is soft and nontender - Physical Exam Vital Signs Temp Pulse Resp BP Pulse Ox 97.7 F L 44 L 16 121/75 H 95 04/13/18 08:30 04/13/18 08:46 04/13/18 08:30 04/13/18 08:30 04/13/18 09:40 Oxygen Delivery Method Room Air Weight: 136 lb 7.458 oz Body Mass Index (BMI) 18.5 Intake and Output for Last 24 Hours 04/11/18 04/12/18 04/13/18 23:59 23:59 23:59 Intake Total 4088 / 4088 788 / 788 30 / 30 Output Total 1075 / 1075 900 / 900 200 / 200 Balance 3013 / 3013 -112 / -112 -170 / -170 Medical Necessity - Tobacco Use Smoking Status: Former smoker Assessment/Plan All Active Problems (This Medical Record has been edited. Action required.) Aortic dissection (Acute) Acute right MCA stroke (Acute) Left hemiplegia (Acute) Acute kidney injury (Acute) Seizure disorder (Acute) Dysphagia (Acute) Vocal cord paralysis (Acute) Dysphagia (Acute) BRBPR (bright red blood per rectum) (Acute) Cystitis (Acute) Stroke (Acute) Surgery will sign off at this time.
--- NOTE | 2018-04-13 16:52 | PN_ITS ---
Patient Problems: Active and Suspected Problems (This Medical Record has been edited. Action required.) BRBPR (bright red blood per rectum) (Acute) Cystitis (Acute) Stroke (Acute) Subjective: Patient moved bowel. No acute issues overnight. Objective: General: Alert, Oriented x3, Cooperative, Chronically malnourished HEENT: Atraumatic, PERRLA, EOMI, Normocephalic Neck: Supple, No JVD, Negative Carotid Bruits Lungs: No rhonchi, No wheeze, Diminished Cardiovascular: Regular rate, No murmurs Abdomen: Bowel Sounds Present, Soft, Non Tender, Non-Distended, Has PEG tube; not using it Extremities: No edema, Capillary Refill Less than 3 Seconds Skin: No rashes, No breakdown Musculoskeletal: No Tenderness to Palpation of Joints or Extremities, Arthritic Changes, Muscle Wasting Neurological: Cranial nerves II-XII grossly intact, - Left-sided spasticity and contracture and hemiparesis. Speech is low volume and soft. Psych/Mental Status: Normal Affect, Appropriate Vitals/I&O's: Vital Signs Temp Pulse Resp BP Pulse Ox 98.4 F 89 18 102/62 95 04/13/18 14:30 04/13/18 14:30 04/13/18 14:30 04/13/18 14:30 04/13/18 14:30 Oxygen Delivery Method Room Air Weight: 136 lb 7.458 oz Body Mass Index (BMI) 18.5 Intake and Output for Last 24 Hours 04/11/18 04/12/18 04/13/18 23:59 23:59 23:59 Intake Total 4088 / 4088 788 / 788 300 / 300 Output Total 1075 / 1075 900 / 900 400 / 400 Balance 3013 / 3013 -112 / -112 -100 / -100 Current Medications Acetaminophen (Tylenol) 650 mg PO Q6H PRN PRN PRN Reason: MILD PAIN (1-3/10) Acetylcysteine (Mucomyst) 400 mg INHALATION Q6H.RT PRN PRN Reason: sob/wheezing Albuterol/Ipratropium (Duoneb) 3 ml INHALATION Q4H.RT PRN PRN Reason: SOB &/OR WHEEZING Amoxicillin (Amoxil) 500 mg PO Q8 [facility] Last Admin: 04/13/18 14:48 Dose: 500 mg Baclofen (Lioresal) 10 mg PO TID [facility] Last Admin: 04/13/18 14:48 Dose: 10 mg Buspirone HCl (Buspar) 10 mg PO BID [facility] Last Admin: 04/13/18 08:45 Dose: 10 mg Calamine/Phenol (Calmoseptine Ointment) 1 applic TOPICAL 0600,2200 [facility] PRN Reason: Protocol Last Admin: 04/13/18 05:29 Dose: 1 applicatio Lacosamide (Vimpat) 100 mg PO BID [facility] Last Admin: 04/13/18 08:44 Dose: 100 mg Levetiracetam (Keppra Tablet) 1,000 mg PO BID [facility] Last Admin: 04/13/18 08:45 Dose: 1,000 mg Lidocaine (Lidoderm Patch) 1 patch TOPICAL DAILY [facility] PRN Reason: Protocol Last Admin: 04/13/18 08:45 Dose: 1 patch Loratadine (Claritin) 10 mg PO DAILY [facility] Last Admin: 04/13/18 08:45 Dose: 10 mg Magnesium Hydroxide (Milk Of Magnesia) 30 ml PO DAILY PRN PRN Reason: Constipation Melatonin (Melatonin) 3 mg PO QHS [facility] Last Admin: 04/12/18 21:37 Dose: 3 mg Methocarbamol (Methocarbamol) 750 mg PO TID PRN PRN Reason: MUSCLE SPASM Last Admin: 04/11/18 09:53 Dose: 750 mg Metoprolol Tartrate (Lopressor (Beta Jose Juan)) 25 mg PO BID [facility] Last Admin: 04/13/18 08:46 Dose: Not Given Nutritional Formula (Lactose Free) (Ensure Enlive) 120 ml PO 4X/DAY [facility] Last Admin: 04/13/18 14:47 Dose: Not Given Ondansetron HCl (Zofran) 4 mg IV Q6H PRN PRN PRN Reason: NAUSEA/VOMITING Oxycodone HCl (Oxyir) 5 mg PO Q6H PRN PRN PRN Reason: PAIN Last Admin: 04/13/18 08:44 Dose: 5 mg Pantoprazole Sodium (Protonix) 40 mg PO DAILY [facility] Last Admin: 04/13/18 08:44 Dose: 40 mg Quetiapine Fumarate (Seroquel) 12.5 mg PO QHS [facility] Last Admin: 04/12/18 21:37 Dose: 12.5 mg Sodium Chloride () 5 - 30 ml IV UD PRN PRN Reason: SALINE FLUSH Tamsulosin HCl (Flomax) 0.4 mg PO DAILY@1730 [facility] Last Admin: 04/12/18 17:46 Dose: 0.4 mg Venlafaxine HCl (Effexor) 75 mg PO BID [facility] Last Admin: 04/13/18 08:45 Dose: 75 mg Zolpidem Tartrate (Ambien (Generic)) 5 mg PO QHS PRN PRN PRN Reason: INSOMNIA Medical Necessity - Tobacco Use Smoking Status: Former smoker Assessment/Plan All Active Problems (This Medical Record has been edited. Action required.) Aortic dissection (Acute) Acute right MCA stroke (Acute) Left hemiplegia (Acute) Acute kidney injury (Acute) Seizure disorder (Acute) Dysphagia (Acute) Vocal cord paralysis (Acute) Dysphagia (Acute) BRBPR (bright red blood per rectum) (Acute) Cystitis (Acute) Stroke (Acute) There is a 52-year-old gentleman who was admitted 04/10/2018 from acute rehab after he had a rectal bleed. Patient had chronic constipation secondary to sedentary habit with multiple surgeries after he had aortic dissection. 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 He also has PEG tube but not being used. He had cranioplasty in April 2018 Patient denies abdominal pain. He had any months for constipation in rehab. He had rectal bleeding worsening yesterday with passing blood clots. Denies history of colon cancer 1. Lower GI bleed, most probably from diverticular bleed: No signs of active bleeding on colonoscopy. No significant or large mass lesion was found. Scattered diverticulum found in descending colon and sigmoid colon. She had good bowel movement today. Started on diet. Dr. Goodman colonoscopy report appreciated. CT scan interpreted showed large stool burden. Hemoglobin is stable 12.2 g percent. It dropped from 13.6 but probably might have been hemoconcentration Stool softener as needed for constipation. Aspirin held. Discussed with neurologist, Dr. Downing. Will hold aspirin for about 1 week. 2. Physical debility secondary to Right MCA stroke with residual left-sided hemiparesis: Continue PT and OT. 3. Acute cystitis with VRE-Amoxicillin continued; appropriate antibiotic based on culture results; isolation continued. Amoxicillin was started on 04/07/2018. 4. Aortic dissection status post surgery 5. Seizure disorder patient is on Keppra and Vimpat 6. Vocal cord paralysis: Speech therapy re-consulted 7. Hypertension-blood pressure controlled. Metoprolol continued with parameters. Patient is at risk for hypotension secondary to GI bleed. 8 . Dysphagia: s/p PEG tube placement. also able to take PO food. Patient is on oral diet 9. Depression. On effexor and seroquel 10. Anxiety. buspirone continued 11. Constipation -bowel stimulants and laxatives held because of GI bleed. General surgery to evaluate patient in a.m. 12. DVT prophylaxis: Lovenox held in view of #10. SCD ordered Patient had to stay until Saturday pending precertification from insurance for transfer to rehab Code Visit Inpatient E&M: [id number] [facility] Hosp L2
--- NOTE | 2018-04-13 17:58 | NURSING ---
Pt upset with staff for not coming to get him up to [facility]. Came into room, mother got in thsi writers facing yelling that I was here last night and I always have a dirty look on my face and I dont look like I want to be here. 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
[2018-04-13] MEDS: Tamsulosin HCl 0.4 MG Capsule PO (18:01)
[2018-04-13] MEDS: Metoprolol Tartrate 25 MG Tablet PO (22:30)
[2018-04-13] MEDS: MELATONIN 3 MG TABLET PO (22:30)
[2018-04-13] MEDS: QUEtiapine 25 MG Tablet 12.5 MG PO (22:30)
[2018-04-13] MEDS: 0.9% NaCl Peripheral Flush Adult/Peds IV (22:34)
[2018-04-13] MEDS: Acetaminophen 500 MG Tablet 650 MG PO (22:45)
[2018-04-14] VITALS (14 sets, daily range): BP systolic 102–129; BP diastolic 56–77; PULSE 55–83; RESP 14–18; TEMP 36.5–37.1; O2SAT 96–100
[2018-04-14] MEDS: Baclofen 10 MG Tablet PO ×3 (04:30→21:53)
[2018-04-14] MEDS: AMOXICILLIN 500 MG CAPSULE PO ×3 (04:30→21:52)
[2018-04-14] MEDS: Venlafaxine HCl 75 MG Tablet PO ×2 (09:37→21:52)
[2018-04-14] MEDS: levETIRAcetam 1,000 MG Tablet 1000 MG PO ×2 (09:37→21:52)
[2018-04-14] MEDS: Loratadine 10 MG Tablet PO (09:37)
[2018-04-14] MEDS: Pantoprazole Sodium 40 MG Tablet PO (09:37)
[2018-04-14] MEDS: oxyCODONE 5 MG Tablet PO ×2 (09:37→18:09)
[2018-04-14] MEDS: Lacosamide 100 MG Tablet PO ×2 (09:37→21:53)
[2018-04-14] MEDS: Lidocaine 5% Patch 1 PATCH TOPICAL (09:37)
[2018-04-14] MEDS: busPIRone 5 MG Tablet 10 MG PO (09:37)
[2018-04-14] MEDS: Metoprolol Tartrate 25 MG Tablet PO ×2 (09:38→21:53)
--- NOTE | 2018-04-14 10:36 | CASEMGMT ---
This SAVANA MENDEZ received call from Jazzy pt's MMO CM, and she states she is checking up on pt and dispo. Advised her that pt/family are requesting precert be attempted again for rehab at this time and she states that she has 'nothing to do with that.' Pt's contact info is [phone]. Des SAWANT CM
--- NOTE | 2018-04-14 13:01 | PCM.PN.HOSP ---
Patient Problems: Active and Suspected Problems (This Medical Record has been edited. Action required.) BRBPR (bright red blood per rectum) (Acute) Cystitis (Acute) Stroke (Acute) Subjective: Patient seen and examined. He feels well. Denies any dizziness or shortness of breath. No more bleeding per rectum seen. Waiting on insurance precertification and evaluation for possible discharge to acute rehab. Objective: General: Alert, Oriented x3, Cooperative, Chronically malnourished HEENT: Atraumatic, PERRLA, EOMI, Normocephalic Neck: Supple, No JVD, Negative Carotid Bruits Lungs: No rhonchi, No wheeze, Diminished Cardiovascular: Regular rate, No murmurs Abdomen: Bowel Sounds Present, Soft, Non Tender, Non-Distended, Has PEG tube; not using it Extremities: No edema, Capillary Refill Less than 3 Seconds Skin: No rashes, No breakdown Musculoskeletal: No Tenderness to Palpation of Joints or Extremities, Arthritic Changes, Muscle Wasting Neurological: Cranial nerves II-XII grossly intact, - Left-sided spasticity and contracture and hemiparesis. Speech is low volume and soft. Psych/Mental Status: Normal Affect, Appropriate Vitals/I&O's: Vital Signs Temp Pulse Resp BP Pulse Ox 97.7 F L 62 14 127/72 H 100 04/14/18 09:28 04/14/18 10:56 04/14/18 09:28 04/14/18 09:28 04/14/18 09:28 Oxygen Delivery Method Room Air Weight: 61.9 kg Body Mass Index (BMI) 18.5 Intake and Output for Last 24 Hours 04/12/18 04/13/18 04/14/18 23:59 23:59 23:59 Intake Total 788 / 788 660 / 660 350 / 350 Output Total 900 / 900 700 / 700 475 / 475 Balance -112 / -112 -40 / -40 -125 / -125 Current Medications Acetaminophen (Tylenol) 650 mg PO Q6H PRN PRN PRN Reason: MILD PAIN (1-310) Last Admin: 04/13/18 22:45 Dose: 650 mg Acetylcysteine (Mucomyst) 400 mg INHALATION Q6H.RT PRN PRN Reason: sob/wheezing Albuterol/Ipratropium (Duoneb) 3 ml INHALATION Q4H.RT PRN PRN Reason: SOB &/OR WHEEZING Amoxicillin (Amoxil) 500 mg PO Q8 [facility] Last Admin: 04/14/18 04:30 Dose: 500 mg Baclofen (Lioresal) 10 mg PO TID [facility] Last Admin: 04/14/18 04:30 Dose: 10 mg Buspirone HCl (Buspar) 10 mg PO BID [facility] Last Admin: 04/14/18 09:37 Dose: 10 mg Calamine/Phenol (Calmoseptine Ointment) 1 applic TOPICAL 0600,2200 [facility] PRN Reason: Protocol Last Admin: 04/14/18 04:30 Dose: Not Given Lacosamide (Vimpat) 100 mg PO BID [facility] Last Admin: 04/14/18 09:37 Dose: 100 mg Levetiracetam (Keppra Tablet) 1,000 mg PO BID [facility] Last Admin: 04/14/18 09:37 Dose: 1,000 mg Lidocaine (Lidoderm Patch) 1 patch TOPICAL DAILY [facility] PRN Reason: Protocol Last Admin: 04/14/18 09:37 Dose: 1 patch Loratadine (Claritin) 10 mg PO DAILY [facility] Last Admin: 04/14/18 09:37 Dose: 10 mg Magnesium Hydroxide (Milk Of Magnesia) 30 ml PO DAILY PRN PRN Reason: Constipation Melatonin (Melatonin) 3 mg PO QHS [facility] Last Admin: 04/13/18 22:30 Dose: 3 mg Methocarbamol (Methocarbamol) 750 mg PO TID PRN PRN Reason: MUSCLE SPASM Last Admin: 04/11/18 09:53 Dose: 750 mg Metoprolol Tartrate (Lopressor (Beta Jose Juan)) 25 mg PO BID [facility] Last Admin: 04/14/18 09:38 Dose: 25 mg Ondansetron HCl (Zofran) 4 mg IV Q6H PRN PRN PRN Reason: NAUSEA/VOMITING Oxycodone HCl (Oxyir) 5 mg PO Q6H PRN PRN PRN Reason: PAIN Last Admin: 04/14/18 09:37 Dose: 5 mg Pantoprazole Sodium (Protonix) 40 mg PO DAILY [facility] Last Admin: 04/14/18 09:37 Dose: 40 mg Quetiapine Fumarate (Seroquel) 12.5 mg PO QHS [facility] Last Admin: 04/13/18 22:30 Dose: 12.5 mg Sodium Chloride () 5 - 30 ml IV UD PRN PRN Reason: SALINE FLUSH Last Admin: 04/13/18 22:34 Dose: 10 ml Tamsulosin HCl (Flomax) 0.4 mg PO DAILY@1730 [facility] Last Admin: 04/13/18 18:01 Dose: 0.4 mg Venlafaxine HCl (Effexor) 75 mg PO BID [facility] Last Admin: 04/14/18 09:37 Dose: 75 mg Zolpidem Tartrate (Ambien (Generic)) 5 mg PO QHS PRN PRN PRN Reason: INSOMNIA Medical Necessity - Tobacco Use Smoking Status: Former smoker Assessment/Plan All Active Problems (This Medical Record has been edited. Action required.) Aortic dissection (Acute) Acute right MCA stroke (Acute) Left hemiplegia (Acute) Acute kidney injury (Acute) Seizure disorder (Acute) Dysphagia (Acute) Vocal cord paralysis (Acute) Dysphagia (Acute) BRBPR (bright red blood per rectum) (Acute) Cystitis (Acute) Stroke (Acute) 52-year-old male with past medical history of aortic dissection with surgical repair on 10/07/2017 with subsequent right MCA stroke, status post decompressive craniotomy, with vocal cord paralysis. His healthcare course has been complicated by pneumonia and respiratory failure requiring intubation, PEG tube placement status post cranioplasty on 02/28/2018. He has subsequently been in subacute care and inpatient rehab. He was transferred to the [facility] abnormal CT finding of midline shift and large right-sided subdural pneumocephalus. He was discharged back to the inpatient rehab and admitted to the hospital on 07/31/2017 with rectal bleeding after episodes of constipation. He has since and this admission had a colonoscopy done showed no abnormalities. 1. Acute lower GI bleed, likely secondary to diverticular bleed, status post colonoscopy, no significant findings, general surgery consulted, signed off, hemoglobin is remained stable. Aspirin being held for 1 week. 2. Debility secondary to right MCA stroke with residual left hemiplegia, worsened with recent admission from lower GI bleed, will wait on insurance precertification for possible discharge to acute rehab 3. Recent VRE cystitis, on amoxicillin started on 04/07/2018, will aim for a total of 10 days course 4. Aortic dissection, status post repair 5. Seizure disorder, on Keppra and Vimpat 6. Hypertension, controlled, will continue on home regimen 7. History of vocal cord paralysis, speech therapy following 8. Anxiety/depression, on Effexor and Seroquel 9. DVT prophylaxis - SCDs Code Visit Inpatient E&M: 46854 Subs Hosp L2
--- NOTE | 2018-04-14 13:10 | PN_ITS ---
Patient Problems: Active and Suspected Problems (This Medical Record has been edited. Action required.) BRBPR (bright red blood per rectum) (Acute) Cystitis (Acute) Stroke (Acute) Subjective: Patient seen and examined. He feels well. Denies any dizziness or shortness of breath. No more bleeding per rectum seen. Waiting on insurance precertification and evaluation for possible discharge to acute rehab. Objective: General: Alert, Oriented x3, Cooperative, Chronically malnourished HEENT: Atraumatic, PERRLA, EOMI, Normocephalic Neck: Supple, No JVD, Negative Carotid Bruits Lungs: No rhonchi, No wheeze, Diminished Cardiovascular: Regular rate, No murmurs Abdomen: Bowel Sounds Present, Soft, Non Tender, Non-Distended, Has PEG tube; not using it Extremities: No edema, Capillary Refill Less than 3 Seconds Skin: No rashes, No breakdown Musculoskeletal: No Tenderness to Palpation of Joints or Extremities, Arthritic Changes, Muscle Wasting Neurological: Cranial nerves II-XII grossly intact, - Left-sided spasticity and contracture and hemiparesis. Speech is low volume and soft. Psych/Mental Status: Normal Affect, Appropriate Vitals/I&O's: Vital Signs Temp Pulse Resp BP Pulse Ox 97.7 F L 62 14 127/72 H 100 04/14/18 09:28 04/14/18 10:56 04/14/18 09:28 04/14/18 09:28 04/14/18 09:28 Oxygen Delivery Method Room Air Weight: 61.9 kg Body Mass Index (BMI) 18.5 Intake and Output for Last 24 Hours 04/12/18 04/13/18 04/14/18 23:59 23:59 23:59 Intake Total 788 / 788 660 / 660 350 / 350 Output Total 900 / 900 700 / 700 475 / 475 Balance -112 / -112 -40 / -40 -125 / -125 Current Medications Acetaminophen (Tylenol) 650 mg PO Q6H PRN PRN PRN Reason: MILD PAIN (1-310) Last Admin: 04/13/18 22:45 Dose: 650 mg Acetylcysteine (Mucomyst) 400 mg INHALATION Q6H.RT PRN PRN Reason: sob/wheezing Albuterol/Ipratropium (Duoneb) 3 ml INHALATION Q4H.RT PRN PRN Reason: SOB &/OR WHEEZING Amoxicillin (Amoxil) 500 mg PO Q8 [facility] Last Admin: 04/14/18 04:30 Dose: 500 mg Baclofen (Lioresal) 10 mg PO TID [facility] Last Admin: 04/14/18 04:30 Dose: 10 mg Buspirone HCl (Buspar) 10 mg PO BID [facility] Last Admin: 04/14/18 09:37 Dose: 10 mg Calamine/Phenol (Calmoseptine Ointment) 1 applic TOPICAL 0600,2200 [facility] PRN Reason: Protocol Last Admin: 04/14/18 04:30 Dose: Not Given Lacosamide (Vimpat) 100 mg PO BID [facility] Last Admin: 04/14/18 09:37 Dose: 100 mg Levetiracetam (Keppra Tablet) 1,000 mg PO BID [facility] Last Admin: 04/14/18 09:37 Dose: 1,000 mg Lidocaine (Lidoderm Patch) 1 patch TOPICAL DAILY [facility] PRN Reason: Protocol Last Admin: 04/14/18 09:37 Dose: 1 patch Loratadine (Claritin) 10 mg PO DAILY [facility] Last Admin: 04/14/18 09:37 Dose: 10 mg Magnesium Hydroxide (Milk Of Magnesia) 30 ml PO DAILY PRN PRN Reason: Constipation Melatonin (Melatonin) 3 mg PO QHS [facility] Last Admin: 04/13/18 22:30 Dose: 3 mg Methocarbamol (Methocarbamol) 750 mg PO TID PRN PRN Reason: MUSCLE SPASM Last Admin: 04/11/18 09:53 Dose: 750 mg Metoprolol Tartrate (Lopressor (Beta Jose Juan)) 25 mg PO BID [facility] Last Admin: 04/14/18 09:38 Dose: 25 mg Ondansetron HCl (Zofran) 4 mg IV Q6H PRN PRN PRN Reason: NAUSEA/VOMITING Oxycodone HCl (Oxyir) 5 mg PO Q6H PRN PRN PRN Reason: PAIN Last Admin: 04/14/18 09:37 Dose: 5 mg Pantoprazole Sodium (Protonix) 40 mg PO DAILY [facility] Last Admin: 04/14/18 09:37 Dose: 40 mg Quetiapine Fumarate (Seroquel) 12.5 mg PO QHS [facility] Last Admin: 04/13/18 22:30 Dose: 12.5 mg Sodium Chloride () 5 - 30 ml IV UD PRN PRN Reason: SALINE FLUSH Last Admin: 04/13/18 22:34 Dose: 10 ml Tamsulosin HCl (Flomax) 0.4 mg PO DAILY@1730 [facility] Last Admin: 04/13/18 18:01 Dose: 0.4 mg Venlafaxine HCl (Effexor) 75 mg PO BID [facility] Last Admin: 04/14/18 09:37 Dose: 75 mg Zolpidem Tartrate (Ambien (Generic)) 5 mg PO QHS PRN PRN PRN Reason: INSOMNIA Medical Necessity - Tobacco Use Smoking Status: Former smoker Assessment/Plan All Active Problems (This Medical Record has been edited. Action required.) Aortic dissection (Acute) Acute right MCA stroke (Acute) Left hemiplegia (Acute) Acute kidney injury (Acute) Seizure disorder (Acute) Dysphagia (Acute) Vocal cord paralysis (Acute) Dysphagia (Acute) BRBPR (bright red blood per rectum) (Acute) Cystitis (Acute) Stroke (Acute) 52-year-old male with past medical history of aortic dissection with surgical repair on 10/07/2017 with subsequent right MCA stroke, status post decompressive craniotomy, with vocal cord paralysis. His healthcare course has been complicated by pneumonia and respiratory failure requiring intubation, PEG tube placement status post cranioplasty on 02/28/2018. He has subsequently been in subacute care and inpatient rehab. He was transferred to the [facility] abnormal CT finding of midline shift and large right-sided subdural pneumocephalus. He was discharged back to the inpatient rehab and admitted to the hospital on 07/31/2017 with rectal bleeding after episodes of constipation. He has since and this admission had a colonoscopy done showed no abnormalities. 1. Acute lower GI bleed, likely secondary to diverticular bleed, status post colonoscopy, no significant findings, general surgery consulted, signed off, hemoglobin is remained stable. Aspirin being held for 1 week. 2. Debility secondary to right MCA stroke with residual left hemiplegia, worsened with recent admission from lower GI bleed, will wait on insurance precertification for possible discharge to acute rehab 3. Recent VRE cystitis, on amoxicillin started on 04/07/2018, will aim for a total of 10 days course 4. Aortic dissection, status post repair 5. Seizure disorder, on Keppra and Vimpat 6. Hypertension, controlled, will continue on home regimen 7. History of vocal cord paralysis, speech therapy following 8. Anxiety/depression, on Effexor and Seroquel 9. DVT prophylaxis - SCDs Code Visit Inpatient E&M: 95647 Subs Hosp L2
--- NOTE | 2018-04-14 15:49 | CHAPLAIN ---
Type of Pastoral Visit ___ Initial Visit _x__ Follow-up Visit ___ On-call Visit ___ General Patient Visit ___ Spiritual Assessment ___ Family Conference ___ Bereavement ___ Rapid Response ___ Code Blue ___ Other (describe below) Pastoral Care Referral From _x__ Patient ___ Family ___ Nurse ___ Physician ___ Child & Adolescent Psychiatrist ___ Postal Transportation Clerk ___ Other (describe below) Sacrament/Intervention _x__ Active listening ___ Anointing ___ Amish ___ Bereavement ___ Communion ___ Sarah exploration ___ _x__ Life review _x__ Prayer ___ Reconciliation ___ Sacrament of Sick _x__ Supportive presence ___ Wedding ___ Other (describe below) Pastoral Comments
[2018-04-14] MEDS: Tamsulosin HCl 0.4 MG Capsule PO (18:09)
[2018-04-14] MEDS: busPIRone 15 MG TABLET 10 MG PO (21:51)
[2018-04-14] MEDS: MELATONIN 3 MG TABLET PO (21:52)
[2018-04-14] MEDS: QUEtiapine 25 MG Tablet 12.5 MG PO (21:52)
[2018-04-14] MEDS: Menthol/Lanolin/Calamine/Znox 113 GM Tube 1 APPLIC TOPICAL (21:53)
[2018-04-15 02:45] VITALS: PULSE 65
[2018-04-15 03:45] VITALS: BP 132/84; PULSE 63; RESP 18; TEMP 36.6; O2SAT 98
[2018-04-15] MEDS: AMOXICILLIN 500 MG CAPSULE PO (06:48)
[2018-04-15] MEDS: Baclofen 10 MG Tablet PO (06:48)
[2018-04-15] MEDS: Menthol/Lanolin/Calamine/Znox 113 GM Tube 1 APPLIC TOPICAL (06:48)
[2018-04-15] MEDS: oxyCODONE 5 MG Tablet PO (06:55)
[2018-04-15 06:58] VITALS: PULSE 58
--- NOTE | 2018-04-15 09:29 | PCM.DC ---
- Discharge Diagnoses Current Active Problems: Current Active and Chronic Problems (This Medical Record has been edited. Action required.) BRBPR (bright red blood per rectum) (Acute) Cystitis (Acute) Stroke (Acute) Reason(s) for Visit for Discharge Instructions: Rectal bleeding You will use the following diet at home:: Cardiac Your food should be the consistency of: Regular Your liquids should be the consistency of: Regular/Thin Discharge Activity: Return to Normal Activity Additional Instructions: Neurology to decide on when to resume his aspirin. Allergies/Adverse Reactions: Allergies cat dander Allergy (Verified 02/07/18 17:19) Unknown grass pollen Allergy (Verified 02/07/18 17:19) Itching Medications to take at Discharge Acetylcysteine [Mucomyst] 400 mg INHALATION Q6H.RT PRN vial.neb. 02/26/18 Ipratropium/Albuterol Sulfate [Duoneb] 3 ml INHALATION Q4H.RT PRN ampul.neb 02/26/18 Baclofen [Lioresal] 10 mg PO TID 03/06/18 Levetiracetam [Keppra] 1,000 mg PO BID 03/06/18 Loratadine [Claritin] 10 mg PO DAILY 03/06/18 Melatonin 3 mg PO QHS 03/06/18 Menthol/Lanolin/Calamine/Znox [Calmoseptine Ointment] 1 applic TOPICAL 0600,2200 03/06/18 Methocarbamol [Robaxin-750] 750 mg PO TID PRN 03/06/18 Metoprolol Tartrate [Lopressor (beta john)] 25 mg PO BID 03/06/18 Oxycodone [Oxyir] 5 mg PO Q6H PRN PRN 03/06/18 Pantoprazole Sodium [Protonix] 40 mg IV DAILY 03/06/18 Polyethylene Glycol 3350 [Miralax] 17 gm PO DAILY PRN 03/06/18 Quetiapine Fumarate [Seroquel] 12.5 mg PO QHS 03/06/18 Venlafaxine HCl [Effexor] 75 mg PO BID 03/06/18 busPIRone [Buspar] 10 mg PO BID 03/06/18 Acetaminophen 650 mg PO Q6H PRN PRN 04/11/18 Amoxicillin [Amoxil] 500 mg PO Q8H 04/11/18 Bisacodyl [Dulcolax] 10 mg RECTAL PRN PRN 04/11/18 Hydrocortisone [Anusol Hc] 25 mg RECTAL 0600,2200 04/11/18 Lacosamide [Vimpat] 100 mg PO BID 04/11/18 Lidocaine [Lidoderm Patch] 1 patch TOPICAL DAILY 04/11/18 Magnesium Hydroxide [Milk Of Magnesia] 30 ml PO DAILY 04/11/18 Na Phos,M-B/Na Phos,Di-Ba [Fleet Enema] 1 bottle RECTAL X1 PRN 04/11/18 Ondansetron [Zofran] 8 mg PO Q8H PRN PRN 04/11/18 Senna [Senokot] 2 tablet PO TID 04/11/18 Tamsulosin HCl [Flomax] 0.4 mg PO DAILY 04/11/18 Primary Care Physician: Fredy Beth MD [Primary Care Provider] - Please follow up with your Primary Care Physician in: within 2 weeks of discharge Test Results: Test results from this visit will be discussed in further detail at your follow-up appointment, if applicable. Proposed Discharge Date: 04/15/18
--- NOTE | 2018-04-15 09:33 | DS.PCM_ITS ---
Discharge Date and Diagnosis Date of Admission: 04/11/18 Date of Discharge: 04/15/18 - Primary Discharge Diagnosis Active and Suspected Problems (This Medical Record has been edited. Action required.) BRBPR (bright red blood per rectum) (Acute) Diverticular bleed Cystitis (Acute), VRE Recent Stroke (Acute) Debility - Secondary Discharge Diagnosis Chronic Problems (This Medical Record has been edited. Action required.) Kidney stones (Chronic) Hypertension (Chronic) Asthma (Chronic) Depression (Chronic) Hospital Course and Treatment Imaging Results: Clinical Impression(s) from Imaging Studies Abdomen/Pelvis CT 04/10/18 22:17 IMPRESSION: CONSTIPATION with fecal impaction causing a colitis in the rectal vault. Electronically Signed: Dayday Welch MD at 22:57 EDT , Service support , Neurology General surgery Operations: None Procedures: Colonoscopy, EGD Summary of Care Provided: 52-year-old male with past medical history of aortic dissection with surgical repair on 10/07/2017 with subsequent right MCA stroke, status post decompressive craniotomy, with vocal cord paralysis. His healthcare course has been complicated by pneumonia and respiratory failure requiring intubation, PEG tube placement status post cranioplasty on 02/28/2018. He has subsequently been in subacute care and inpatient rehab. He was transferred to the [facility] with abnormal CT finding of midline shift and large right-sided subdural pneumocephalus. He was discharged back to the inpatient rehab and admitted to the hospital on 04/10/2018 with rectal bleeding after episodes of constipation. During his hospital stay, he had colonoscopy by general surgery that showed no significant findings; his acute GI bleed necessitating admission was believed to be due to diverticular bleed. His hemoglobin remained stable. He was kept off aspirin for 1 week. He would need to be resumed on aspirin after that. He was seen by physical therapy and upon discussion with the family, patient was discharged to acute inpatient rehab for further therapy as he did not complete it prior to discharge. Other management in the hospital was as follows: Recent VRE cystitis, on amoxicillin started on 04/07/2018, stop date of 04/21/2018 Aortic dissection, status post repair, to follow-up in the [facility] Seizure disorder, on Keppra and Vimpat History of vocal cord paralysis, speech therapy following, be followed in inpatient rehab Anxiety/depression, on Effexor and Seroquel Discharge Diet: Low fat/ Low Cholesterol, 2000 mg Sodium Diet Discharge Activity: Return to Normal Activity Home Medications: Medications to take at Discharge Loratadine [Claritin] 10 mg PO DAILY 03/06/18 Amoxicillin [Amoxil] 500 mg PO Q8H 04/11/18 Acetaminophen [Tylenol Tablet] 650 mg PO Q6H PRN PRN tablet 04/18/18 Baclofen [Lioresal] 10 mg PO TID #180 tab 04/18/18 Ensure Enlive 120 ml PO 4X/DAY liquid 04/18/18 Hydrocortisone [Anusol Hc] 25 mg RECTAL BID PRN PRN #14 suppos. 04/18/18 Lacosamide [Vimpat] 50 mg PO DAILY #4 tab 04/18/18 Methocarbamol [Robaxin-750] 750 mg PO TID PRN #180 tab 04/18/18 Metoprolol Tartrate [Lopressor (beta john)] 25 mg PO BID #180 tab 04/18/18 Oxycodone [Oxyir] 5 mg PO Q6H PRN PRN 6 Days #27 tab 04/18/18 Pantoprazole Sodium [Protonix] 40 mg PO DAILY #90 tab 04/18/18 Tamsulosin HCl [Flomax] 0.4 mg PO DAILY #90 cap 04/18/18 Venlafaxine HCl [Effexor] 75 mg PO BID #180 tab 04/18/18 busPIRone [Buspar] 5 mg PO DAILY #7 tab 04/18/18 levETIRAcetam tablet [Keppra tablet] 1,000 mg PO BID #180 tab 04/18/18 levETIRAcetam tablet [Keppra tablet] 250 mg PO BID #180 tab 04/18/18 Primary Care Physician: Fredy Beth MD [Primary Care Provider] - Please follow up with your Primary Care Physician in: within 2 weeks of discharge Disposition: Inpt Rehab Unit/Facility Minutes spent on discharge:: 40 Patient Condition:: Stable Medical Necessity - Tobacco Use Smoking Status: Former smoker Tobacco Use: Non-smoker Meaningful Use Info Meaningful Use Diagnoses (Choose all that apply): None applicable Code Visit Inpatient E&M: 82875 Disch Hosp
--- NOTE | 2018-04-15 09:33 | DCINST_ITS ---
- Discharge Diagnoses Current Active Problems: Current Active and Chronic Problems (This Medical Record has been edited. Action required.) BRBPR (bright red blood per rectum) (Acute) Cystitis (Acute) Stroke (Acute) Reason(s) for Visit for Discharge Instructions: Rectal bleeding You will use the following diet at home:: Cardiac Your food should be the consistency of: Regular Your liquids should be the consistency of: Regular/Thin Discharge Activity: Return to Normal Activity Additional Instructions: Neurology to decide on when to resume his aspirin. Allergies/Adverse Reactions: Allergies cat dander Allergy (Verified 02/07/18 17:19) Unknown grass pollen Allergy (Verified 02/07/18 17:19) Itching Medications to take at Discharge Acetylcysteine [Mucomyst] 400 mg INHALATION Q6H.RT PRN vial.neb. 02/26/18 Ipratropium/Albuterol Sulfate [Duoneb] 3 ml INHALATION Q4H.RT PRN ampul.neb 08/15 Baclofen [Lioresal] 10 mg PO TID 03/06/18 Levetiracetam [Keppra] 1,000 mg PO BID 03/06/18 Loratadine [Claritin] 10 mg PO DAILY 03/06/18 Melatonin 3 mg PO QHS 03/06/18 Menthol/Lanolin/Calamine/Znox [Calmoseptine Ointment] 1 applic TOPICAL 0600, 2200 03/06/18 Methocarbamol [Robaxin-750] 750 mg PO TID PRN 03/06/18 Metoprolol Tartrate [Lopressor (beta john)] 25 mg PO BID 03/06/18 Oxycodone [Oxyir] 5 mg PO Q6H PRN PRN 03/06/18 Pantoprazole Sodium [Protonix] 40 mg IV DAILY 03/06/18 Polyethylene Glycol 3350 [Miralax] 17 gm PO DAILY PRN 03/06/18 Quetiapine Fumarate [Seroquel] 12.5 mg PO QHS 03/06/18 Venlafaxine HCl [Effexor] 75 mg PO BID 03/06/18 busPIRone [Buspar] 10 mg PO BID 03/06/18 Acetaminophen 650 mg PO Q6H PRN PRN 04/11/18 Amoxicillin [Amoxil] 500 mg PO Q8H 04/11/18 Bisacodyl [Dulcolax] 10 mg RECTAL PRN PRN 04/11/18 Hydrocortisone [Anusol Hc] 25 mg RECTAL 0600,2200 04/11/18 Lacosamide [Vimpat] 100 mg PO BID 04/11/18 Lidocaine [Lidoderm Patch] 1 patch TOPICAL DAILY 04/11/18 Magnesium Hydroxide [Milk Of Magnesia] 30 ml PO DAILY 04/11/18 Na Phos,M-B/Na Phos,Di-Ba [Fleet Enema] 1 bottle RECTAL X1 PRN 04/11/18 Ondansetron [Zofran] 8 mg PO Q8H PRN PRN 04/11/18 Senna [Senokot] 2 tablet PO TID 04/11/18 Tamsulosin HCl [Flomax] 0.4 mg PO DAILY 04/11/18 Primary Care Physician: Fredy Beth MD [Primary Care Provider] - Please follow up with your Primary Care Physician in: within 2 weeks of discharge Test Results: Test results from this visit will be discussed in further detail at your follow- up appointment, if applicable. Proposed Discharge Date: 04/15/18
[2018-04-15 09:45] VITALS: BP 111/73; PULSE 66; RESP 16; TEMP 36.7; O2SAT 98
[2018-04-15] MEDS: Pantoprazole Sodium 40 MG Tablet PO (09:46)
[2018-04-15] MEDS: levETIRAcetam 1,000 MG Tablet 1000 MG PO (09:46)
[2018-04-15] MEDS: Lacosamide 100 MG Tablet PO (09:46)
[2018-04-15] MEDS: busPIRone 15 MG TABLET 10 MG PO (09:46)
[2018-04-15] MEDS: Lidocaine 5% Patch 1 PATCH TOPICAL (09:46)
[2018-04-15 09:47] VITALS: PULSE 66
[2018-04-15] MEDS: Loratadine 10 MG Tablet PO (09:47)
[2018-04-15] MEDS: Metoprolol Tartrate 25 MG Tablet PO (09:47)
[2018-04-15] MEDS: Venlafaxine HCl 75 MG Tablet PO (09:47)
--- NOTE | 2018-04-15 10:03 | CASEMGMT ---
Social Work: TC from Mary in rehab stating [place] [facility] [place]. TC to patient's , Dana. Dana aware that patient will be discharged back to inpatient rehab today. Dana states she will be in shortly to help patient transition. Spoke with Kayla, charge nurse. Kayla states that she will let the patient's nurse know that patient is ready for D/C today. PLAN: Patient to be discharged to inpatient rehab today. RAJIV Claudio
--- NOTE | 2018-04-15 10:15 | NURSING ---
Called report to Radha SAWANT in rehab
== END 2018-04-15 10:49 | DRG 378 ==
PROVIDERS: Surgery; Admitting Provider Hospitalist; Family Provider Family Medicine; PCP Family Medicine; Visit Provider Internal Medicine
PROC: 0DJD8ZZ Inspection of Lower Intestinal Tract, Via Natural or Artificial Opening Endoscopic (ICD-10-PCS; CPT 45378; principal; 2018-04-12 06:55)
DX: K57.31 Diverticulosis of large intestine without perforation or abscess with bleeding (principal); I69.354 Hemiplegia and hemiparesis following cerebral infarction affecting left non-dominant side; N30.00 Acute cystitis without hematuria; E46 Unspecified protein-calorie malnutrition; Z68.1 Body mass index [BMI] 19.9 or less, adult; Z87.891 Personal history of nicotine dependence; B95.2 Enterococcus as the cause of diseases classified elsewhere; Z16.21 Resistance to vancomycin; G40.909 Epilepsy, unspecified, not intractable, without status epilepticus; J38.00 Paralysis of vocal cords and larynx, unspecified; I10 Essential (primary) hypertension; Z93.1 Gastrostomy status; F32.9 Major depressive disorder, single episode, unspecified; Z79.899 Other long term (current) drug therapy; F41.9 Anxiety disorder, unspecified
CPT/HCPCS: 36415; 74177; 80048; 85014; 85018; 85025; 85610; 92507; 92526; 97110; 97116; 97163; 97166; 97530; 97535; 97802; J7030; Q9967; A4216

== ENCOUNTER 2018-04-15 10:55 | Inpatient (IN) | payer OTHER, SELFPAY ==
[2018-04-15 11:04] VITALS: BP 100/66; PULSE 65; RESP 18; TEMP 36.6; O2SAT 96; BMI 18.3
--- NOTE | 2018-04-15 11:58 | RAD_ITS ---
STUDY: X-RAY - LEFT SHOULDER REASON FOR EXAM: Male, 52 years old. Left shoulder pain. TECHNIQUE: 2 view(s) of the shoulder on 3 films. COMPARISON: None. FINDINGS: Normal glenohumeral joint space, but there is degenerative inferior periarticular spurring of the glenoid. There is mild degenerative arthrosis of the acromioclavicular joint without inferior osseous spur formation. Normal acromion. Borderline to mild narrowing of the humeral acromial joint space. Normal humeral head and visualized proximal humerus, allowing that the humeral articular surfaces not optimally displayed in profile on these views. The soft tissue structures are unremarkable. There is no demonstrated osseous destructive lesion or fracture. Normal visualized pulmonary apex. Incidental note of an endovascular stent in the posterior thoracic aortic arch extending into the proximal descending thoracic aorta RAD/Shoulder min 2 Views IMPRESSION: Mild degenerative changes of left shoulder, as described. Electronically Signed: Audie Holbrook MD at 13:43 EDT , Service support ,
--- NOTE | 2018-04-15 15:29 | HP.PCM.COS_ITS ---
History of Present Illness Date of Admission: 04/15/18 Chief Complaint: Debility The patient is a 52 year old M who is readmitted to the rehab unit, while in the rehab unit he developed some rectal bleeding on 04/09/18 which was thought to be due to hemorrhoids, received Anusol for hemorrhoids per hospitalist, Lovenox was held, then on (04/10/18) night patient developed progressively worsening bright red bleeding per rectum and he was transferred to PCU (acute care), ASA was held. See discharge summary from 04/10/18 below. He now presents back to the rehab unit for further rehabilitation and family training so that he can return home. Denies any GI or complaints. At present patient denies any BACON, visual disturbances, new onset focal motor weakness, sensory loss or speech disturbances. Patient continues to have residual right sided hemiparesis from the chronic right MCA stroke. The patient is a 52 year old male with recent complicated past medical history including aortic dissection for which patient underwent surgery at [facility] which was complicated by a right MCA stroke in September 2017 status post decompressive craniectomy in September 2017 followed by vocal cord paralysis managed by ENT and subsequently had pneumonia and respiratory failure resulting into intubation in December 2017 and was discharged to TCU on 02/07/2018. Patient had PEG tube placement on 02/13/2018 and then was readmitted to [facility] on for cranioplasty and subsequently transferred to the inpatient rehab unit. Patient was noted to have, CT findings on 03/14/2018. He was transferred to [facility] as a result of midline shift and large right-sided subdural pneumocephalus. Patient was monitored in the neuro intensive care unit and transferred back to the inpatient rehab unit on 03/18/2018. While at the inpatient unit patient was noted to have constipation and received enemas. He was noted to have rectal bleeding and received Anusol for hemorrhoids. His Lovenox was discontinued because of the rectal bleeding. Patient, was noted to have progressively worsening bright rectal bleeding per rectum so he was transferred to the acute care for further management. Before the transfer NSS bolus and infusion was ordered. His aspirin was discontinued and his Protonix regimen escalated. General surgeon was consulted and they will follow. Past Medical History Past Medical History (Chronic Problems): Chronic Problems (This Medical Record has been edited. Action required.) Kidney stones (Chronic) Hypertension (Chronic) Asthma (Chronic) Depression (Chronic) Allergies cat dander Allergy (Verified 04/15/18 11:27) Unknown grass pollen Allergy (Verified 04/15/18 11:27) Itching Home Medications: Ambulatory Orders Medication Instructions Recorded Acetylcysteine [Mucomyst] 400 mg INHALATION Q6H.RT PRN 02/26/18 vial.neb. Ipratropium/Albuterol Sulfate 3 ml INHALATION Q4H.RT PRN 02/26/18 [Duoneb] ampul.neb Baclofen [Lioresal] 10 mg PO TID 03/06/18 Levetiracetam [Keppra] 1,000 mg PO BID 03/06/18 Loratadine [Claritin] 10 mg PO DAILY 03/06/18 Melatonin 3 mg PO QHS 03/06/18 Menthol/Lanolin/Calamine/Znox 1 applic TOPICAL 0600,2200 03/06/18 [Calmoseptine Ointment] Methocarbamol [Robaxin-750] 750 mg PO TID PRN 03/06/18 Metoprolol Tartrate [Lopressor 25 mg PO BID 03/06/18 (beta jose juan)] Oxycodone [Oxyir] 5 mg PO Q6H PRN PRN 03/06/18 Polyethylene Glycol 3350 [Miralax] 17 gm PO DAILY PRN 03/06/18 Quetiapine Fumarate [Seroquel] 12.5 mg PO QHS 03/06/18 Venlafaxine HCl [Effexor] 75 mg PO BID 03/06/18 busPIRone [Buspar] 10 mg PO BID 03/06/18 Amoxicillin [Amoxil] 500 mg PO Q8H 04/11/18 Hydrocortisone [Anusol Hc] 25 mg RECTAL 0600,2200 04/11/18 Lacosamide [Vimpat] 50 mg PO BID 04/11/18 Lidocaine [Lidoderm Patch] 1 patch TOPICAL DAILY 04/11/18 Ondansetron [Zofran] 8 mg PO Q8H PRN PRN 04/11/18 Tamsulosin HCl [Flomax] 0.4 mg PO DAILY 04/11/18 Pantoprazole Sodium [Protonix] 40 mg PO DAILY 04/15/18 Surgical History: herniorrhaphy - Inguinal., - - Aortic dissection repair 2017, Craniotomy 10/13/2017, Lithotripsy, Left ankle ORIF, Left wrist ORIF, Bilateral heel spur removal, Traceostomy. Psychiatric History: Anxiety, Depression Smoking Status: Former smoker - *Family History Maternal History Items: No pertinent history Paternal History Items: No pertinent history Review of Systems Constitutional: Denies: Chills, Fever, Weight Change HEENT: Denies: Head Aches, Sinus Congestion, Sinus Drainage Cardiovascular: Denies: Chest Pain, Palpitations Respiratory: Denies: Cough, Shortness of breath at rest, Sputum production Gastrointestinal: Denies: Abdominal Pain, Nausea, Vomiting Genitourinary: Denies: Dysuria Musculoskeletal: Denies: Joint Pain, Joint Tenderness Skin: Denies: Rash, Wounds Neurological: Denies: Numbness, Tingling, Focal weakness Psychiatric: Denies: Anxiety, Depression, Homicidal Ideations, Suicidal Ideations Hematologic/ Lymphatic: Denies: Easy Bruising, Easy Bleeding VTE Information - Inpt Only VTE Present on Admission: No VTE Mechan Device Prophylaxis: SCD's, Knee High NITESH Hose VTE Pharm Prophylaxis ordered?: Yes - Physical Exam General: Alert, Oriented x3, Cooperative HEENT: Atraumatic, PERRLA, EOMI, Normocephalic Neck: Supple, No JVD, Negative Carotid Bruits Lungs: Clear to auscultation, Normal air movement Cardiovascular: Regular rate, No murmurs Abdomen: Bowel Sounds Present, Soft, Non Tender Extremities: No edema, Capillary Refill Less than 3 Seconds Skin: No rashes, No breakdown Musculoskeletal: No Tenderness to Palpation of Joints or Extremities Neurological: Cranial nerves II-XII grossly intact, - - Left-sided spasticity and contracture and hemiparesis. Speech is low volume and soft. Psych/Mental Status: Normal Affect, Appropriate, Alert and oriented to time, place, person, mood and affect Vital Signs Temp Pulse Resp BP Pulse Ox 97.8 F 65 18 100/66 96 04/15/18 11:04 04/15/18 11:04 04/15/18 11:04 04/15/18 11:04 04/15/18 11:04 Oxygen Delivery Method Room Air Weight: 61.2 kg Body Mass Index (BMI) 18.3 Intake and Output for Last 24 Hours 04/13/18 04/14/18 04/15/18 23:59 23:59 23:59 Intake Total Balance Active Medications Acetaminophen (Tylenol) 650 mg PO Q6H PRN PRN PRN Reason: Mild Pain (0-3/10)/Headache Acetylcysteine (Mucomyst) 400 mg INHALATION Q6H.RT PRN PRN Reason: sob/wheezing Albuterol/Ipratropium (Duoneb) 3 ml INHALATION Q4H.RT PRN PRN Reason: SOB &/OR WHEEZING Amoxicillin (Amoxil) 500 mg PO Q8H [facility] Baclofen (Lioresal) 10 mg PO TID [facility] Bisacodyl (Dulcolax) 10 mg RECTAL .PRN X 1 PRN PRN Reason: Constipation Buspirone HCl (Buspar) 10 mg PO BID [facility] Calamine/Phenol (Calmoseptine Ointment) 1 applic TOPICAL 0600,2200 [facility] PRN Reason: Protocol Hydrocortisone Acetate (Anusol Hc) 25 mg RECTAL BID PRN PRN PRN Reason: hemorrhoids Lacosamide (Vimpat) 50 mg PO BID [facility] Levetiracetam (Keppra Tablet) 1,000 mg PO BID [facility] Lidocaine (Lidoderm Patch) 1 patch TOPICAL DAILY [facility] PRN Reason: Protocol Loratadine (Claritin) 10 mg PO DAILY [facility] Magnesium Hydroxide (Milk Of Magnesia) 30 ml PO .PRN X 1 PRN PRN Reason: Constipation Melatonin (Melatonin) 3 mg PO QHS [facility] Methocarbamol (Methocarbamol) 750 mg PO TID PRN PRN Reason: MUSCLE SPASM Metoprolol Tartrate (Lopressor (Beta Jose Juan)) 25 mg PO BID [facility] Nutritional Formula (Lactose Free) (Ensure Enlive) 120 ml PO 4X/DAY [facility] Ondansetron HCl (Zofran) 8 mg PO Q8H PRN PRN PRN Reason: NAUSEA Oxycodone HCl (Oxyir) 5 mg PO Q6H PRN PRN PRN Reason: SEVERE PAIN (6-10/10) Pantoprazole Sodium (Protonix) 40 mg PO DAILY [facility] Polyethylene Glycol (Miralax) 17 gm PO DAILY PRN PRN Reason: Constipation Quetiapine Fumarate (Seroquel) 12.5 mg PO QHS [facility] Senna/Docusate Sodium (Senokot-S, Daija-Colace) 2 tablet PO BID [facility] Tamsulosin HCl (Flomax) 0.4 mg PO DAILY@1730 [facility] Venlafaxine HCl (Effexor) 75 mg PO BID [facility] Assessment/Plan All Active Problems (This Medical Record has been edited. Action required.) Aortic dissection (Acute) Acute right MCA stroke (Acute) Left hemiplegia (Acute) Acute kidney injury (Acute) Seizure disorder (Acute) Dysphagia (Acute) Vocal cord paralysis (Acute) Dysphagia (Acute) BRBPR (bright red blood per rectum) (Acute) Cystitis (Acute) Stroke (Acute) Debility due to pain, complex hospitalization including due to aneurysm of his aorta requiring a decompressive craniotomy, initially recovered but had a large right sided subdural hematoma which has remained stable and has not required further craniotomy or intervention. Now presents back to the rehab unit for rehabilitation so that he can return home. Plan: - Physical therapy for gait and balance - Occupational Therapy for ADLs - Speech therapy for a aphasia and dysphasia - As needed analgesics - Bowel protocol - DVT prophylaxis: SCDs and Nitesh Hoses - Seizure prophylaxis with Keppra and Vimpat decrease dose to 50mg BID x 3 days then 50 mg Daily then d/c - PEG tube: Await speech therapy recommendations but if he is taking 100% of his p.o. intake we will hold his tube feeds. 03/20: No longer receiving any tube feeds. 03/21: Consider removing PEG tube in a few weeks if it is no longer in use. - Frequency, and urgency on urination => UA was positive for bacteria, => Acute cystitis with VRE patient on amoxicillin based on culture results; placed in isolation - Urine retention Flomax 0.4mg - Begin titrating Vimpat from 100mg BID, to 50mg BID x 3days then daily for 3 days then off, Buspar 10mg BID to 5mg BID x 3 days, the 5mg daily x 3 days and then stop medication. D/C Seroquel 12.5mg at HS on discharge. - Hold Lovenox and ASA 2/2 rectal bleeding
[2018-04-15] MEDS: AMOXICILLIN 500 MG CAPSULE PO ×2 (17:43→21:29)
[2018-04-15] MEDS: Baclofen 10 MG Tablet PO ×2 (17:43→21:30)
[2018-04-15] MEDS: Tamsulosin HCl 0.4 MG Capsule PO (17:43)
[2018-04-15 19:08] VITALS: BP 121/71; PULSE 63; RESP 18; TEMP 36.8; O2SAT 97
[2018-04-15] MEDS: busPIRone 5 MG Tablet PO (21:29)
[2018-04-15] MEDS: Menthol/Lanolin/Calamine/Znox 113 GM Tube 1 APPLIC TOPICAL (21:29)
[2018-04-15 21:30] VITALS: BP 120/68; PULSE 66
[2018-04-15] MEDS: Venlafaxine HCl 75 MG Tablet PO (21:30)
[2018-04-15] MEDS: Metoprolol Tartrate 25 MG Tablet PO (21:30)
[2018-04-15] MEDS: QUEtiapine 25 MG Tablet 12.5 MG PO (21:30)
[2018-04-15] MEDS: levETIRAcetam 1,000 MG Tablet 1000 MG PO (21:30)
[2018-04-15] MEDS: MELATONIN 3 MG TABLET PO (21:30)
[2018-04-15] MEDS: Lacosamide 50 MG Tablet PO (21:35)
[2018-04-15] MEDS: Senna/Docusate Sodium 1 Tablet 2 TABLET PO (21:35)
--- NOTE | 2018-04-16 00:36 | NURSING ---
Lidoderm patch removed from left hip.
--- NOTE | 2018-04-16 00:38 | NURSING ---
Pt refused Ensure this hs with the reason that he feels he doesn't want to gain weight. This nurse explained that the Ensure is ordered for promoting bone health and nutritional needs at this time of need when pt is less ambulatory. This nurse reasoned with pt that the pt's' current weight and BMI is not excessive and proper nutrition is needed for proper body functions/healing. Pt agreed and drank the Ensure.
[2018-04-16] MEDS: Menthol/Lanolin/Calamine/Znox 113 GM Tube 1 APPLIC TOPICAL ×2 (05:03→21:28)
[2018-04-16] MEDS: AMOXICILLIN 500 MG CAPSULE PO ×3 (05:03→21:30)
[2018-04-16] MEDS: Acetaminophen 325 MG Tablet 650 MG PO ×2 (05:03→21:23)
[2018-04-16] MEDS: Baclofen 10 MG Tablet PO ×3 (05:04→21:28)
[2018-04-16 07:07] VITALS: BP 109/70; PULSE 57; RESP 18; TEMP 36.6; O2SAT 97
[2018-04-16] MEDS: Lacosamide 50 MG Tablet PO ×2 (08:17→21:25)
[2018-04-16] MEDS: Loratadine 10 MG Tablet PO (08:17)
[2018-04-16] MEDS: levETIRAcetam 1,000 MG Tablet 1000 MG PO ×2 (08:17→21:28)
[2018-04-16] MEDS: Venlafaxine HCl 75 MG Tablet PO ×2 (08:17→21:28)
[2018-04-16] MEDS: busPIRone 5 MG Tablet PO ×2 (08:17→21:29)
[2018-04-16] MEDS: Pantoprazole Sodium 40 MG Tablet PO (08:18)
[2018-04-16 10:01] VITALS: PULSE 75
[2018-04-16] MEDS: Metoprolol Tartrate 25 MG Tablet PO ×2 (10:01→21:40)
[2018-04-16] MEDS: Senna/Docusate Sodium 1 Tablet 2 TABLET PO ×3 (10:01→21:29)
--- NOTE | 2018-04-16 10:34 | PCM.PN.NEU ---
Subjective: Patient seen and examined. Family is at bedside participating in shared family care/training in preparation for discharge on Saturday 04/21. Patient tolerating therapy. No new issues over night. - Physical Exam General: Alert, Oriented x3, Cooperative HEENT: Atraumatic, PERRLA, EOMI, Normocephalic Neck: Supple, No JVD, Negative Carotid Bruits Lungs: Clear to auscultation, Normal air movement Cardiovascular: Regular rate, No murmurs Abdomen: Bowel Sounds Present, Soft, Non Tender Extremities: No edema, Capillary Refill Less than 3 Seconds Skin: No rashes, No breakdown Musculoskeletal: No Tenderness to Palpation of Joints or Extremities Neurological: Cranial nerves II-XII grossly intact Psych/Mental Status: Normal Affect, Appropriate, Alert and oriented to time, place, person, mood and affect Vital Signs Temp Pulse Resp BP Pulse Ox 98 F 75 18 109/70 97 04/16/18 07:07 04/16/18 10:01 04/16/18 07:07 04/16/18 07:07 04/16/18 07:07 Oxygen Delivery Method Room Air Weight: 60.7 kg Body Mass Index (BMI) 18.3 Intake and Output for Last 24 Hours 04/14/18 04/15/18 04/16/18 23:59 23:59 23:59 Intake Total 340 / 340 240 / 240 Output Total 350 / 350 400 / 400 Balance -10 / -10 -160 / -160 Active Medications Acetaminophen (Tylenol) 650 mg PO Q6H PRN PRN PRN Reason: Mild Pain (0-3/10)/Headache Last Admin: 04/16/18 05:03 Dose: 650 mg Acetylcysteine (Mucomyst) 400 mg INHALATION Q6H.RT PRN PRN Reason: sob/wheezing Albuterol/Ipratropium (Duoneb) 3 ml INHALATION Q4H.RT PRN PRN Reason: SOB &/OR WHEEZING Amoxicillin (Amoxil) 500 mg PO Q8H [facility] Stop: 04/21/18 00:00 Last Admin: 04/16/18 05:03 Dose: 500 mg Baclofen (Lioresal) 10 mg PO TID [facility] Last Admin: 04/16/18 05:04 Dose: 10 mg Bisacodyl (Dulcolax) 10 mg RECTAL .PRN X 1 PRN PRN Reason: Constipation Buspirone HCl (Buspar) 5 mg PO BID [facility] Last Admin: 04/16/18 08:17 Dose: 5 mg Calamine/Phenol (Calmoseptine Ointment) 1 applic TOPICAL 0600,2200 [facility] PRN Reason: Protocol Last Admin: 04/16/18 05:03 Dose: 1 applicatio Hydrocortisone Acetate (Anusol Hc) 25 mg RECTAL BID PRN PRN PRN Reason: hemorrhoids Lacosamide (Vimpat) 50 mg PO BID [facility] Last Admin: 04/16/18 08:17 Dose: 50 mg Levetiracetam (Keppra Tablet) 1,000 mg PO BID [facility] Last Admin: 04/16/18 08:17 Dose: 1,000 mg Lidocaine (Lidoderm Patch) 1 patch TOPICAL DAILY [facility] PRN Reason: Protocol Loratadine (Claritin) 10 mg PO DAILY [facility] Last Admin: 04/16/18 08:17 Dose: 10 mg Magnesium Hydroxide (Milk Of Magnesia) 30 ml PO .PRN X 1 PRN PRN Reason: Constipation Melatonin (Melatonin) 3 mg PO QHS [facility] Last Admin: 04/15/18 21:30 Dose: 3 mg Methocarbamol (Methocarbamol) 750 mg PO TID PRN PRN Reason: MUSCLE SPASM Metoprolol Tartrate (Lopressor (Beta Jose Juan)) 25 mg PO BID [facility] Last Admin: 04/16/18 10:01 Dose: 25 mg Nutritional Formula (Lactose Free) (Ensure Enlive) 120 ml PO 4X/DAY [facility] Last Admin: 04/16/18 09:59 Dose: Not Given Ondansetron HCl (Zofran) 8 mg PO Q8H PRN PRN PRN Reason: NAUSEA Oxycodone HCl (Oxyir) 5 mg PO Q6H PRN PRN PRN Reason: SEVERE PAIN (6-10/10) Pantoprazole Sodium (Protonix) 40 mg PO DAILY [facility] Last Admin: 04/16/18 08:18 Dose: 40 mg Polyethylene Glycol (Miralax) 17 gm PO DAILY [facility] Quetiapine Fumarate (Seroquel) 12.5 mg PO QHS [facility] Last Admin: 04/15/18 21:30 Dose: 12.5 mg Senna/Docusate Sodium (Senokot-S, Daija-Colace) 2 tablet PO BID [facility] Last Admin: 04/16/18 10:01 Dose: 2 tablet Tamsulosin HCl (Flomax) 0.4 mg PO DAILY@1730 [facility] Last Admin: 04/15/18 17:43 Dose: 0.4 mg Venlafaxine HCl (Effexor) 75 mg PO BID [facility] Last Admin: 04/16/18 08:17 Dose: 75 mg Medical Necessity - Tobacco Use Smoking Status: Former smoker Assessment/Plan All Active Problems (This Medical Record has been edited. Action required.) Aortic dissection (Acute) Acute right MCA stroke (Acute) Left hemiplegia (Acute) Acute kidney injury (Acute) Seizure disorder (Acute) Dysphagia (Acute) Vocal cord paralysis (Acute) Dysphagia (Acute) BRBPR (bright red blood per rectum) (Acute) Cystitis (Acute) Stroke (Acute) Debility due to pain, complex hospitalization including due to aneurysm of his aorta requiring a decompressive craniotomy, initially recovered but had a large right sided subdural hematoma which has remained stable and has not required further craniotomy or intervention. Now presents back to the rehab unit for rehabilitation so that he can return home. Plan: - Physical therapy for gait and balance - Occupational Therapy for ADLs - Speech therapy for a aphasia and dysphasia - As needed analgesics - Bowel protocol - DVT prophylaxis: SCDs and Marino Hoses - Seizure prophylaxis with Keppra and Vimpat decrease dose to 50mg BID x 3 days then 50 mg Daily then d/c - PEG tube: Await speech therapy recommendations but if he is taking 100% of his p.o. intake we will hold his tube feeds. 03/20: No longer receiving any tube feeds. 03/21: Consider removing PEG tube in a few weeks if it is no longer in use. - Frequency, and urgency on urination => UA was positive for bacteria, => Acute cystitis with VRE patient on amoxicillin based on culture results; placed in isolation - Urine retention Flomax 0.4mg - Begin titrating Vimpat from 100mg BID, to 50mg BID x 3days then daily for 3 days then off, Buspar 10mg BID to 5mg BID x 3 days, the 5mg daily x 3 days and then stop medication. D/C Seroquel 12.5mg at HS on discharge. - Hold Lovenox and ASA 2/2 rectal bleeding
--- NOTE | 2018-04-16 11:06 | REHABEVAL_ITS ---
Admission Information Status Changes from Prescreening?: No changes Identified Actual Problem List:: Bleeding, Pain, ALteration in Cmfrt, Alteration in Nutrition, Mobility Impaired, Self Care Deficit, Ineffect.D/C Plan r/t Psy Potential Problem List:: DVT, Bleeding, Infection, UTI, Aspiration, Falls, Skin Integrity, Depression Risk of Complications DVT: LMWH, NITESH Hose, Sequential Compression Device Bleeding: Monitor Lab Values, Nursing to Teach Precautions for anti-coagulation therapy., Wound, if applicable, to be assessed every shift., Stroke patients assessed for lethargy or change in status. Infection: Clinical Staff to Monitor for S/S of infection:, S/S of infection include fever, redness, warmth, etc. Urinary Tract Infection: Monitor for frequency, burning, discomfort, or incontinence., Nursing will obtain urine sample for urinalysis and C&S when ordered. Aspiration: Clinical staff will monitor for coughing, drooling, congestion., Speech will evaluate swallowing and dsyphasia., Nursing will monitor patient swallowing during meals. Falls: Patient will be evaluated for Fall Precautions, Patient will be placed on Fall Precautions as indicated per protocol. Skin Breakdown: Nursing will assess skin daily using assessment tool., Nursing will place on Skin Breakdown Precautions as indicated. Pain: Clinical staff will assess patient's pain level per protocol., Medications will be given, if needed, and the pain level reassessed., Other methods: Massage, distraction, decrease stimulus, etc. used PRN. Plan of Care Patient requires physician specializing in physical medicine and rehab oversight to provide close medical supervision of rehab issues including: Pain Management, Sleep Problems, Bowel and Bladder, Medical and co-morbidity Management, DVT prophylaxis, Rehabilitation Leadership, Coordination of treatment team Patient needs Physical Therapy: For a minimum of 1 hour, At least 5 out of 7 days Patient needs Physical Therapy to improve:: Mobility, Mobility, Mobility, Strengthening, Transfers, Stretching, ROM, Endurance, Stairs, Gait, Balance Patient needs Occupational Therapy: For a minimum of 1 hour, At least 5 out of 7 days Patient needs Occupational Therapy to improve ADL's incl.: Eating, Grooming, Bathing, Dressing, Toileting, Toilet transfers, Community Reintegration, Higher functioning activities, Household tasks, Adaptive Equipment, Splinting, Other activities as determined Patient requires speech therapy: For a minimum of 1 hour, At least 5 out of 7 days Patient requires speech therapy for: Swallowing, Cognition, Language Skills, Compensatory Strategies Patient requires 24/ Rehabilitation Nursing for: Pain Issues, Identifying and preventing risk factors, Monitoring and reporting current medical conditions, Assisting with ambulation, transfer, and all ADL's, Teaching patients about disease process and medications, Family teaching, Providing safe environment, Bowel and Bladder Issues, Skin integrity, Medication Management Patient needs Hotel Valet Attendant/ Case Management for: Discharge Planning, Arranging Home Equipment or Services, Family Interventions Patient needs Dietary and Nutrition Services for: Adequate Nutrition, Nutritional Supplements, Nutritional Education Goals Patient will remain: free from falls, or injury at time of discharge. Patient will perform bed mobility at: MOD I level of assist. Patient will complete transfers from bed to chair at: MOD I level of assist. Patient will ambulate: 100 feet, with MOD I assist, with LRD Patient will complete upper body dressing at: MOD I level of assist. Patient will complete lower body dressing at: MOD I level of assist. Patient will complete toileting at: MOD I level of assist. Patient will perform bathing at: MOD I level of assist. Patient will complete grooming at: MOD I level of assist. Patient will complete home management skills at: MOD I level of assist. Patient will achieve: 12 stairs, at MOD I assist Patient will have pain level of: of 3 or less Patient's skin will: remain intact, free from infection. Patient will receive: adequate nutrition. Discharge Planning Pt Prognosis for Sig. Practical Improv. w/in Reasonable Time: Good Anticipated D/C Destination: Home with Outpt Therapy Was Preadmission Assessment Accurate?: Yes
--- NOTE | 2018-04-16 11:52 | CASEMGMT ---
Social Work Met with pt and in room. Pt and are planning on discharge either Saturday or Saturday. Pt will be returning home with his who will be caring for him as needed. states hospital bed will be delivered tomorrow and pt will need a wheelchair. Home health services to be set up with [facility] PT/OT/ST/SN/REFRACTORY WORKER. will followup for d/c planning SCARLETT Sebastian
[2018-04-16] MEDS: Polyethylene Glycol 3350 17 GM PACKET PO (13:01)
[2018-04-16] MEDS: Lidocaine 5% Patch 1 PATCH TOPICAL (13:01)
[2018-04-16 13:55] VITALS: O2SAT 99
[2018-04-16] MEDS: Tamsulosin HCl 0.4 MG Capsule PO (18:28)
[2018-04-16] MEDS: QUEtiapine 25 MG Tablet 12.5 MG PO (21:25)
[2018-04-16] MEDS: MELATONIN 3 MG TABLET PO (21:27)
[2018-04-16] MEDS: levETIRAcetam 250 MG Tablet PO (21:28)
[2018-04-16 21:39] VITALS: BP 107/68; PULSE 72; RESP 16; TEMP 36.6; O2SAT 95
[2018-04-16 21:40] VITALS: BP 107/68; PULSE 72
[2018-04-17 06:50] VITALS: O2SAT 98
[2018-04-17] MEDS: Menthol/Lanolin/Calamine/Znox 113 GM Tube 1 APPLIC TOPICAL ×2 (07:03→21:47)
[2018-04-17] MEDS: AMOXICILLIN 500 MG CAPSULE PO ×3 (07:03→21:47)
[2018-04-17] MEDS: Baclofen 10 MG Tablet PO ×3 (07:03→21:46)
[2018-04-17 08:33] VITALS: BP 113/78; PULSE 57; RESP 20; TEMP 36.4; O2SAT 99
[2018-04-17 09:46] VITALS: PULSE 66
[2018-04-17] MEDS: Metoprolol Tartrate 25 MG Tablet PO ×2 (09:46→21:46)
[2018-04-17] MEDS: Loratadine 10 MG Tablet PO (09:46)
[2018-04-17] MEDS: levETIRAcetam 1,000 MG Tablet 1000 MG PO ×2 (09:46→21:46)
[2018-04-17] MEDS: busPIRone 5 MG Tablet PO ×2 (09:46→21:47)
[2018-04-17] MEDS: levETIRAcetam 250 MG Tablet PO ×2 (09:46→21:46)
[2018-04-17] MEDS: Venlafaxine HCl 75 MG Tablet PO ×2 (09:46→21:47)
[2018-04-17] MEDS: Lacosamide 50 MG Tablet PO ×2 (09:47→21:45)
[2018-04-17] MEDS: Acetaminophen 325 MG Tablet 650 MG PO ×2 (09:47→19:00)
[2018-04-17] MEDS: Pantoprazole Sodium 40 MG Tablet PO (09:47)
--- NOTE | 2018-04-17 10:16 | PN.NEURO_ITS ---
Subjective: Patient seen and examined. No acute events overnight. Patient is tolerating therapy well. His was here on 04/16 for family shared therapy and training which went well. The plan is for discharge on Saturday with at home Physical therapy, Occupational therapy and Speech therapy with a home health aid. He will return next week for Botox injections for Spasticity in his right arm, with [facility]. - Physical Exam General: Alert, Oriented x3, Cooperative HEENT: Atraumatic, PERRLA, EOMI, Normocephalic Neck: Supple, No JVD, Negative Carotid Bruits Lungs: Clear to auscultation, Normal air movement Cardiovascular: Regular rate, No murmurs Abdomen: Bowel Sounds Present, Soft, Non Tender Extremities: No edema, Capillary Refill Less than 3 Seconds Skin: No rashes, No breakdown Musculoskeletal: No Tenderness to Palpation of Joints or Extremities Neurological: Cranial nerves II-XII grossly intact Psych/Mental Status: Normal Affect, Appropriate, Alert and oriented to time, place, person, mood and affect Vital Signs Temp Pulse Resp BP Pulse Ox 97.5 F L 66 20 H 113/78 99 04/17/18 08:33 04/17/18 09:46 04/17/18 08:33 04/17/18 08:33 04/17/18 08:33 Oxygen Delivery Method Room Air Weight: 60.7 kg Body Mass Index (BMI) 18.3 Intake and Output for Last 24 Hours 04/15/18 04/16/18 04/17/18 23:59 23:59 23:59 Intake Total 340 / 340 580 / 580 Output Total 350 / 350 400 / 400 Balance -10 / -10 180 / 180 Active Medications Acetaminophen (Tylenol) 650 mg PO Q6H PRN PRN PRN Reason: Mild Pain (0-3/10)/Headache Last Admin: 04/17/18 09:47 Dose: 650 mg Acetylcysteine (Mucomyst) 400 mg INHALATION Q6H.RT PRN PRN Reason: sob/wheezing Albuterol/Ipratropium (Duoneb) 3 ml INHALATION Q4H.RT PRN PRN Reason: SOB &/OR WHEEZING Amoxicillin (Amoxil) 500 mg PO Q8H ENIO Stop: 04/21/18 00:00 Last Admin: 04/17/18 07:03 Dose: 500 mg Baclofen (Lioresal) 10 mg PO TID COUNT INCLUDES THE [facility] Last Admin: 04/17/18 07:03 Dose: 10 mg Bisacodyl (Dulcolax) 10 mg RECTAL .PRN X 1 PRN PRN Reason: Constipation Buspirone HCl (Buspar) 5 mg PO BID COUNT INCLUDES THE [facility] Last Admin: 04/17/18 09:46 Dose: 5 mg Calamine/Phenol (Calmoseptine Ointment) 1 applic TOPICAL 0600,2200 COUNT INCLUDES THE [facility] PRN Reason: Protocol Last Admin: 04/17/18 07:03 Dose: 1 applicatio Hydrocortisone Acetate (Anusol Hc) 25 mg RECTAL BID PRN PRN PRN Reason: hemorrhoids Lacosamide (Vimpat) 50 mg PO BID COUNT INCLUDES THE [facility] Stop: 04/18/18 22:01 Last Admin: 04/17/18 09:47 Dose: 50 mg Lacosamide (Vimpat) 50 mg PO DAILY COUNT INCLUDES THE [facility] Stop: 04/21/18 10:01 Levetiracetam (Keppra Tablet) 1,000 mg PO BID COUNT INCLUDES THE [facility] Last Admin: 04/17/18 09:46 Dose: 1,000 mg Levetiracetam (Keppra Tablet) 250 mg PO BID COUNT INCLUDES THE [facility] Last Admin: 04/17/18 09:46 Dose: 250 mg Loratadine (Claritin) 10 mg PO DAILY COUNT INCLUDES THE [facility] Last Admin: 04/17/18 09:46 Dose: 10 mg Magnesium Hydroxide (Milk Of Magnesia) 30 ml PO .PRN X 1 PRN PRN Reason: Constipation Melatonin (Melatonin) 3 mg PO QHS COUNT INCLUDES THE [facility] Last Admin: 04/16/18 21:27 Dose: 3 mg Methocarbamol (Methocarbamol) 750 mg PO TID PRN PRN Reason: MUSCLE SPASM Metoprolol Tartrate (Lopressor (Beta Ojse Juan)) 25 mg PO BID COUNT INCLUDES THE [facility] Last Admin: 04/17/18 09:46 Dose: 25 mg Nutritional Formula (Lactose Free) (Ensure Enlive) 120 ml PO 4X/DAY COUNT INCLUDES THE [facility] Last Admin: 04/17/18 09:35 Dose: Not Given Ondansetron HCl (Zofran) 8 mg PO Q8H PRN PRN PRN Reason: NAUSEA Oxycodone HCl (Oxyir) 5 mg PO Q6H PRN PRN PRN Reason: SEVERE PAIN (6-10/10) Pantoprazole Sodium (Protonix) 40 mg PO DAILY COUNT INCLUDES THE [facility] Last Admin: 04/17/18 09:47 Dose: 40 mg Polyethylene Glycol (Miralax) 17 gm PO DAILY COUNT INCLUDES THE [facility] Last Admin: 04/17/18 09:47 Dose: 17 gm Quetiapine Fumarate (Seroquel) 12.5 mg PO QHS COUNT INCLUDES THE [facility] Last Admin: 04/16/18 21:25 Dose: 12.5 mg Senna/Docusate Sodium (Senokot-S, Daija-Colace) 2 tablet PO BID COUNT INCLUDES THE [facility] Last Admin: 04/16/18 21:29 Dose: 1 tablet Tamsulosin HCl (Flomax) 0.4 mg PO DAILY@1730 COUNT INCLUDES THE [facility] Last Admin: 04/16/18 18:28 Dose: 0.4 mg Venlafaxine HCl (Effexor) 75 mg PO BID COUNT INCLUDES THE [facility] Last Admin: 04/17/18 09:46 Dose: 75 mg Medical Necessity - Tobacco Use Smoking Status: Former smoker Assessment/Plan All Active Problems (This Medical Record has been edited. Action required.) Aortic dissection (Acute) Acute right MCA stroke (Acute) Left hemiplegia (Acute) Acute kidney injury (Acute) Seizure disorder (Acute) Dysphagia (Acute) Vocal cord paralysis (Acute) Dysphagia (Acute) BRBPR (bright red blood per rectum) (Acute) Cystitis (Acute) Stroke (Acute) Debility due to pain, complex hospitalization including due to aneurysm of his aorta requiring a decompressive craniotomy, initially recovered but had a large right sided subdural hematoma which has remained stable and has not required further craniotomy or intervention. Now presents back to the rehab unit for rehabilitation so that he can return home. Plan: - Physical therapy for gait and balance - Occupational Therapy for ADLs - Speech therapy for a aphasia and dysphasia - As needed analgesics - Bowel protocol - DVT prophylaxis: SCDs and Marino Hoses - Seizure prophylaxis with Keppra and Vimpat decrease dose to 50mg BID x 3 days then 50 mg Daily then d/c - PEG tube: Await speech therapy recommendations but if he is taking 100% of his p.o. intake we will hold his tube feeds. 03/20: No longer receiving any tube feeds. 03/21: Consider removing PEG tube in a few weeks if it is no longer in use. - Frequency, and urgency on urination => UA was positive for bacteria, => Acute cystitis with VRE patient on amoxicillin based on culture results; placed in isolation - Urine retention Flomax 0.4mg - Begin titrating Vimpat from 100mg BID, to 50mg BID x 3days then daily for 3 days then off, Buspar 10mg BID to 5mg BID x 3 days, the 5mg daily x 3 days and then stop medication. D/C Seroquel 12.5mg at HS on discharge. - Hold Lovenox and ASA 2/2 rectal bleeding - Plan is for discharge on Saturday home with Home [facility] services
--- NOTE | 2018-04-17 11:43 | CASEMGMT ---
Social Work SW spoke with SAVANA Hernandez in inpt rehab unit who states pt and have requested that pt be d/c home with on Thursday 04/19. Referral made to Yumiko at [facility] for PT/OT/ST/RN/FIRST RESPONDER. Orders faxed. Phone call to pt Dana. She confirms pt will come home on Saturday and will transport pt home at 10:00. [place] [facility]. [place] has obtained a standard wheelchair therefore this does not need ordered from [employer]. Therapy is recommending a one arm drive wheelchair for pt but that this custom made item should be considered after appt with physician on 04/28/18. SW spoke with pt about this and she is in agreement. Name and phone number of [employer] provided to as this is the company that can custom make wheelchairs. Pt aware that she can pickling operator scripts for medical supplies for PEG tube and get supplies at [facility]. Phone call to [facility] and they confirmed bed is being delivered and requested WC be cancelled. DAGO Hunter notified of 's request for script for handicap placard. Pt is able to assist pt as needed and transport to appointments. No further d/c needs at this time. SW will remain available should further needs arise. Plan: Home with and [facility] PT/OT/ST/SN/FIRST RESPONDER SCARLETT Sebastian
[2018-04-17] MEDS: oxyCODONE 5 MG Tablet PO (12:07)
[2018-04-17] MEDS: Tamsulosin HCl 0.4 MG Capsule PO (17:25)
[2018-04-17] MEDS: Senna/Docusate Sodium 1 Tablet 2 TABLET PO (21:45)
[2018-04-17 21:46] VITALS: BP 119/72; PULSE 67
[2018-04-17] MEDS: MELATONIN 3 MG TABLET PO (21:46)
[2018-04-17 22:00] VITALS: BP 119/72; PULSE 67; RESP 16; TEMP 36.6; O2SAT 96
[2018-04-17] MEDS: QUEtiapine 25 MG Tablet 12.5 MG PO (22:02)
[2018-04-18] MEDS: oxyCODONE 5 MG Tablet PO ×3 (00:29→21:21)
[2018-04-18] MEDS: Baclofen 10 MG Tablet PO ×3 (06:22→21:16)
[2018-04-18] MEDS: AMOXICILLIN 500 MG CAPSULE PO ×3 (06:22→21:17)
[2018-04-18] MEDS: Menthol/Lanolin/Calamine/Znox 113 GM Tube 1 APPLIC TOPICAL ×2 (06:23→21:18)
[2018-04-18 06:32] VITALS: O2SAT 98
[2018-04-18 07:13] VITALS: BP 107/64; PULSE 57; RESP 16; TEMP 36.8; O2SAT 96
[2018-04-18 08:04] VITALS: PULSE 64
[2018-04-18] MEDS: busPIRone 5 MG Tablet PO ×2 (08:04→21:17)
[2018-04-18] MEDS: levETIRAcetam 1,000 MG Tablet 1000 MG PO ×2 (08:04→21:16)
[2018-04-18] MEDS: Venlafaxine HCl 75 MG Tablet PO ×2 (08:04→21:16)
[2018-04-18] MEDS: Metoprolol Tartrate 25 MG Tablet PO ×2 (08:04→21:16)
[2018-04-18] MEDS: levETIRAcetam 250 MG Tablet PO ×2 (08:04→21:16)
[2018-04-18] MEDS: Loratadine 10 MG Tablet PO (08:04)
[2018-04-18] MEDS: Senna/Docusate Sodium 1 Tablet 2 TABLET PO ×2 (08:04→21:17)
[2018-04-18] MEDS: Pantoprazole Sodium 40 MG Tablet PO (08:05)
[2018-04-18] MEDS: Polyethylene Glycol 3350 17 GM PACKET PO (08:05)
[2018-04-18] MEDS: Lacosamide 50 MG Tablet PO (08:08)
[2018-04-18] MEDS: Acetaminophen 325 MG Tablet 650 MG PO (08:28)
--- NOTE | 2018-04-18 14:54 | PCM.DC ---
- Discharge Diagnoses Reason(s) for Visit for Discharge Instructions: CVA You will use the following diet at home:: Regular Your food should be the consistency of: Mechanical soft (ground) Your liquids should be the consistency of: [place] Thick Discharge Activity: May Not Drive, May Shower, May Take a Tub Bath, Use Walker Weight Bearing Status: Weight bearing as tolerated Call your doctor if you observe: Fever of 101 or Higher, Coldness, Increased Pain, Numbness or Tingling, Change in Color, Inability to urinate, Inability to have a bowel movement, Using more than one pad per hour, Shortness of breath, Dizziness, Fainting spells, Swelling in the ankles, Chest pain, Prolonged hiccoughing, Increased palpitations (irregular heartbeat), Calf discomfort, Uncontrolled pain Allergies/Adverse Reactions: Allergies cat dander Allergy (Verified 04/15/18 11:27) Unknown grass pollen Allergy (Verified 04/15/18 11:27) Itching Medications to take at Discharge Loratadine [Claritin] 10 mg PO DAILY 03/06/18 Amoxicillin [Amoxil] 500 mg PO Q8H 04/11/18 Acetaminophen [Tylenol Tablet] 650 mg PO Q6H PRN PRN tablet 04/18/18 Baclofen [Lioresal] 10 mg PO TID #180 tab 04/18/18 Ensure Enlive 120 ml PO 4X/DAY liquid 04/18/18 Hydrocortisone [Anusol Hc] 25 mg RECTAL BID PRN PRN #14 suppos. 04/18/18 Lacosamide [Vimpat] 50 mg PO DAILY #4 tab 04/18/18 Methocarbamol [Robaxin-750] 750 mg PO TID PRN #180 tab 04/18/18 Metoprolol Tartrate [Lopressor (beta john)] 25 mg PO BID #180 tab 04/18/18 Oxycodone [Oxyir] 5 mg PO Q6H PRN PRN 6 Days #27 tab 04/18/18 Pantoprazole Sodium [Protonix] 40 mg PO DAILY #90 tab 04/18/18 Tamsulosin HCl [Flomax] 0.4 mg PO DAILY #90 cap 04/18/18 Venlafaxine HCl [Effexor] 75 mg PO BID #180 tab 04/18/18 busPIRone [Buspar] 5 mg PO DAILY #7 tab 04/18/18 levETIRAcetam tablet [Keppra tablet] 1,000 mg PO BID #180 tab 04/18/18 levETIRAcetam tablet [Keppra tablet] 250 mg PO BID #180 tab 04/18/18 The following prescriptions were given: Oxycodone [Oxyir] 5 mg PO Q6H PRN PRN 6 Days #27 tab PRN Reason: Severe Pain (-05/07) busPIRone [Buspar] 5 mg PO DAILY #7 tab Hydrocortisone [Anusol Hc] 25 mg RECTAL BID PRN PRN #14 suppos. PRN Reason: hemorrhoids Lacosamide [Vimpat] 50 mg PO DAILY #4 tab Pantoprazole Sodium [Protonix] 40 mg PO DAILY #90 tab Tamsulosin HCl [Flomax] 0.4 mg PO DAILY #90 cap levETIRAcetam tablet [Keppra tablet] 1,000 mg PO BID #180 tab levETIRAcetam tablet [Keppra tablet] 250 mg PO BID #180 tab Metoprolol Tartrate [Lopressor (beta john)] 25 mg PO BID #180 tab Venlafaxine HCl [Effexor] 75 mg PO BID #180 tab Baclofen [Lioresal] 10 mg PO TID #180 tab Methocarbamol [Robaxin-750] 750 mg PO TID PRN #180 tab PRN Reason: Muscle Spasm Primary Care Physician: Fredy Beth MD [Primary Care Provider] - Test Results: Test results from this visit will be discussed in further detail at your follow-up appointment, if applicable. Please Follow Up With: Dr. Beth Please Follow Up With: [facility] Proposed Discharge Date: 04/19/18
[2018-04-18 16:51] VITALS: BP 128/75; PULSE 92; RESP 18; TEMP 36.8; O2SAT 95
--- NOTE | 2018-04-18 16:54 | DS.PCM_ITS ---
Rehab Discharge Summary DATE OF ADMISSION: 04/15/18 DATE OF DISCHARGE: 04/18/18 - Rehab Diagnosis CVA Discharge Diet: - - Mechanical soft [place] thicken liquids Discharge Activity: May Not Drive, May Shower, May Take a Tub Bath, Use Walker Weight Bearing Status: Weight bearing as tolerated Call your doctor if you observe: Fever of 101 or Higher, Coldness, Increased Pain, Numbness or Tingling, Change in Color, Inability to urinate, Inability to have a bowel movement, Using more than one pad per hour, Shortness of breath, Dizziness, Fainting spells, Swelling in the ankles, Chest pain, Prolonged hiccoughing, Increased palpitations (irregular heartbeat), Calf discomfort, Uncontrolled pain Home Medications: Medications to take at Discharge Loratadine [Claritin] 10 mg PO DAILY 03/06/18 Amoxicillin [Amoxil] 500 mg PO Q8H 04/11/18 Acetaminophen [Tylenol Tablet] 650 mg PO Q6H PRN PRN tablet 04/18/18 Baclofen [Lioresal] 10 mg PO TID #180 tab 04/18/18 Ensure Enlive 120 ml PO 4X/DAY liquid 04/18/18 Hydrocortisone [Anusol Hc] 25 mg RECTAL BID PRN PRN #14 suppos. 04/18/18 Lacosamide [Vimpat] 50 mg PO DAILY #4 tab 04/18/18 Methocarbamol [Robaxin-750] 750 mg PO TID PRN #180 tab 04/18/18 Metoprolol Tartrate [Lopressor (beta john)] 25 mg PO BID #180 tab 04/18/18 Oxycodone [Oxyir] 5 mg PO Q6H PRN PRN 6 Days #27 tab 04/18/18 Pantoprazole Sodium [Protonix] 40 mg PO DAILY #90 tab 04/18/18 Tamsulosin HCl [Flomax] 0.4 mg PO DAILY #90 cap 04/18/18 Venlafaxine HCl [Effexor] 75 mg PO BID #180 tab 04/18/18 busPIRone [Buspar] 5 mg PO DAILY #7 tab 04/18/18 levETIRAcetam tablet [Keppra tablet] 1,000 mg PO BID #180 tab 04/18/18 levETIRAcetam tablet [Keppra tablet] 250 mg PO BID #180 tab 04/18/18 Following Prescrptions Were Given to Patient: Oxycodone [Oxyir] 5 mg PO Q6H PRN PRN 6 Days #27 tab PRN Reason: Severe Pain (-05/07) busPIRone [Buspar] 5 mg PO DAILY #7 tab Hydrocortisone [Anusol Hc] 25 mg RECTAL BID PRN PRN #14 suppos. PRN Reason: hemorrhoids Lacosamide [Vimpat] 50 mg PO DAILY #4 tab Pantoprazole Sodium [Protonix] 40 mg PO DAILY #90 tab Tamsulosin HCl [Flomax] 0.4 mg PO DAILY #90 cap levETIRAcetam tablet [Keppra tablet] 1,000 mg PO BID #180 tab levETIRAcetam tablet [Keppra tablet] 250 mg PO BID #180 tab Metoprolol Tartrate [Lopressor (beta john)] 25 mg PO BID #180 tab Venlafaxine HCl [Effexor] 75 mg PO BID #180 tab Baclofen [Lioresal] 10 mg PO TID #180 tab Methocarbamol [Robaxin-750] 750 mg PO TID PRN #180 tab PRN Reason: Muscle Spasm Primary Care Physician: Fredy Beth MD [Primary Care Provider] - Please Follow Up With: Dr. Beth Please Follow Up With: [facility] Disposition: Home with Home Health Minutes spent on discharge:: 40 Patient Condition:: Good Rehab Course The patient is a 52 year old M who is readmitted to the rehab unit, while in the rehab unit he developed some rectal bleeding on 04/09/18 which was thought to be due to hemorrhoids, received Anusol for hemorrhoids per hospitalist, Lovenox was held, then on (04/10/18) night patient developed progressively worsening bright red bleeding per rectum and he was transferred to PCU (acute care), ASA was held. See discharge summary from 04/10/18 below. He now presents back to the rehab unit for further rehabilitation and family training so that he can return home. Denies any GI or complaints. At present patient denies any BACON, visual disturbances, new onset focal motor weakness, sensory loss or speech disturbances. Patient continues to have residual right sided hemiparesis from the chronic right MCA stroke. The patient is a 52 year old male with recent complicated past medical history including aortic dissection for which patient underwent surgery at [facility] which was complicated by a right MCA stroke in September 2017 status post decompressive craniectomy in September 2017 followed by vocal cord paralysis managed by ENT and subsequently had pneumonia and respiratory failure resulting into intubation in December 2017 and was discharged to TCU on 02/07/2018. Patient had PEG tube placement on 02/13/2018 and then was readmitted to [facility] on for cranioplasty and subsequently transferred to the inpatient rehab unit. Patient was noted to have, CT findings on 03/14/2018. He was transferred to [facility] as a result of midline shift and large right-sided subdural pneumocephalus. Patient was monitored in the neuro intensive care unit and transferred back to the inpatient rehab unit on 03/18/2018. While at the inpatient unit patient was noted to have constipation and received enemas. He was noted to have rectal bleeding and received Anusol for hemorrhoids. His Lovenox was discontinued because of the rectal bleeding. Patient, was noted to have progressively worsening bright rectal bleeding per rectum so he was transferred to the acute care for further management. Before the transfer NSS bolus and infusion was ordered. His aspirin was discontinued and his Protonix regimen escalated. General surgeon was consulted and they will follow. With Physical therapy, he is contact guard to minimal assist for transfers. He is able to walk in the parallel bars several time about 40 feet. He is able to walk with the Jayy-walker for about 12 feet with moderate assistance. With Occupational therapy, he is minimal assist for upper body grooming, he is setup and minimal assist with shaving and brushing his teeth. He still requires maximal assist for getting his pants up and managing his urinal. With Speech therapy, he is on a mechanical soft diet with nectar thicken liquids. He is doing well on the thin liquid trials, he remembers to tuck his chin doing trials. They are continue work on his attention to task and his impulsiveness. With Nursing he is Max assist for toileting.Family training was on 04/16 training went well. The plan is for discharge on Saturday with at home Physical therapy, Occupational therapy and Speech therapy with a home health aid. He will return next week for Botox injections for Spasticity in his right arm, with [facility]. Meaningful Use Info Meaningful Use Diagnoses (Choose all that apply): None applicable
[2018-04-18] MEDS: Tamsulosin HCl 0.4 MG Capsule PO (17:19)
[2018-04-18 21:08] VITALS: BP 116/60; PULSE 60; RESP 20; TEMP 36.3; O2SAT 94
[2018-04-18] MEDS: QUEtiapine 25 MG Tablet 12.5 MG PO (21:15)
[2018-04-18 21:16] VITALS: BP 116/60; PULSE 60
[2018-04-18] MEDS: MELATONIN 3 MG TABLET PO (21:16)
[2018-04-19] MEDS: Baclofen 10 MG Tablet PO (06:04)
[2018-04-19] MEDS: AMOXICILLIN 500 MG CAPSULE PO (06:04)
[2018-04-19] MEDS: Menthol/Lanolin/Calamine/Znox 113 GM Tube 1 APPLIC TOPICAL (06:05)
[2018-04-19 08:33] VITALS: BP 128/75; PULSE 53; RESP 18; TEMP 36.8; O2SAT 95
[2018-04-19] MEDS: Polyethylene Glycol 3350 17 GM PACKET PO (08:41)
[2018-04-19 08:42] VITALS: BP 128/75; PULSE 92
[2018-04-19] MEDS: Lacosamide 50 MG Tablet PO (08:42)
[2018-04-19] MEDS: Metoprolol Tartrate 25 MG Tablet PO (08:42)
[2018-04-19] MEDS: Senna/Docusate Sodium 1 Tablet 2 TABLET PO (08:42)
[2018-04-19] MEDS: Pantoprazole Sodium 40 MG Tablet PO (08:42)
[2018-04-19] MEDS: Loratadine 10 MG Tablet PO (08:42)
[2018-04-19] MEDS: levETIRAcetam 250 MG Tablet PO (08:43)
[2018-04-19] MEDS: Venlafaxine HCl 75 MG Tablet PO (08:43)
[2018-04-19] MEDS: busPIRone 5 MG Tablet PO (08:43)
[2018-04-19] MEDS: levETIRAcetam 1,000 MG Tablet 1000 MG PO (08:43)
[2018-04-19] MEDS: oxyCODONE 5 MG Tablet PO (09:08)
--- NOTE | 2018-04-19 11:45 | NURSING ---
Went over discharge instructions, meds and appts with pt and spouse, both verbalized understanding, this RN answered all questions. Pt. DC'd home by POV with all personal belongings, in stable condition
--- NOTE | 2018-04-24 15:46 | CASEMGMT ---
Insurance Notified insurance of patient discharge on 04/19/18 to home with spouse and home health care. Auth#[id number] Guillermina PANTOJA, SR. MANAGER
== END 2018-04-19 11:52 | disposition home health service (06) | DRG 57 ==
PROVIDERS: Admitting Provider Psychiatry & Neurology Neurology; Family Provider Family Medicine; PCP Family Medicine; Visit Provider Psychiatry & Neurology Neurology
DX: I69.351 Hemiplegia and hemiparesis following cerebral infarction affecting right dominant side (principal); N30.00 Acute cystitis without hematuria; R47.01 Aphasia; Z23 Encounter for immunization; Z93.1 Gastrostomy status; R33.9 Retention of urine, unspecified; I10 Essential (primary) hypertension; J45.909 Unspecified asthma, uncomplicated; F32.9 Major depressive disorder, single episode, unspecified; J38.00 Paralysis of vocal cords and larynx, unspecified; Z87.891 Personal history of nicotine dependence; G40.909 Epilepsy, unspecified, not intractable, without status epilepticus; B95.2 Enterococcus as the cause of diseases classified elsewhere; Z16.21 Resistance to vancomycin; K64.9 Unspecified hemorrhoids; R47.02 Dysphasia
CPT/HCPCS: 73030; 92507; 92526; 92610; 97110; 97116; 97163; 97166; 97530; 97535; 97802; 90686

== ENCOUNTER → 2018-05-21 12:43 | Outpatient (CLI) | payer OTHER, SELFPAY ==
--- NOTE | 2018-05-21 12:46 | RAD_ITS ---
STUDY: SWALLOWING STUDY REASON FOR EXAM: Male, 52 years old. Dysphagia. Vocal cord paralysis. TECHNIQUE: The examination was performed with Speech Pathology in attendance. Under fluoroscopic observation, the patient ingested thin barium, thick barium, barium pudding, and barium coated cracker. FLUOROSCOPY TIME: 2:26 minutes/seconds. 2088 fluoroscopic images were obtained. RADIOLOGIST INVOLVEMENT: Radiologist was present and providing direct supervision. COMPARISON: Comparison is made with prior study dated March 07, 2018. FINDINGS: The following was observed during swallowing of the various mixtures of barium: Thin Barium: There was no evidence of aspiration or laryngeal penetration. Barium Pudding: There was no evidence of aspiration or laryngeal penetration. Barium Coated Cracker: There was no evidence of aspiration or laryngeal penetration. RAD/Swallowing Function w/Video IMPRESSION: Normal tailored barium swallow study. No evidence of increased risk for aspiration. The swallow study findings were discussed with the patient by the speech pathologist at the conclusion of the examination. Please see speech pathology report for more information and recommendations. Electronically Signed: Beck Nuñez MD at 15:31 EDT Tel [phone], Service support ,
--- NOTE | 2018-05-21 13:00 | SP.MBSS_ITS ---
PRIMARY / SECONDARY DIAGNOSIS: dysphagia (R13.10) REFERRING PHYSICIAN: Dr. Fredy Beth MD CURRENT DIET: regular textures, nectar thickened liquids DENTITION: WFL MENTAL STATUS: impaired; left neglect RESPIRATORY STATUS: O2 via room air PREVIOUS MODIFIED BARIUM SWALLOW STUDY: 03/07/2018 MBS revealed moderate to severe oropharyngeal dysphagia (R13.12) with grade III SILENT aspiration and grade IV overt aspiration of thin liquids. 01/23/2018 MBS at [facility] revealed mild oropharyngeal dysphagia, improved from previous study, cleared for dysphagia level 3 diet. 01/17/2018 MBS at [facility] revealed moderate oropharyngeal dysphagia w/ slowed oral motor movement, impaired oral transit, posterior bolus loss, delayed pharyngeal swallow onset, mild pharyngeal residue, no aspiration or penetration, cleared for PO intake. 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 Patient known to this clinician from recent [facility] and [facility] Unit admission; prior admission at [facility] associated with aspiration pneumonia status post right middle cerebral artery cerebrovascular accident requiring decompressed right craniotomy (September 2017) with resulting left sided flaccidity; severe and persistent dysphonia secondary to bilateral vocal fold paralysis / vocal fold spasticity of iatrogenic cause status post full and partial injections with Radiesse Voice injectable, with continued albeit somewhat improving executive functioning and left visuospatial neglect. The Patient is retired, college educated, and 29 years with 2 adult children. ADDITIONAL OBJECTIVE ASSESSMENT RESULTS: 03/14/2018 CT revealed a large right-sided subdural fluid and gas collection contributing to mass effect and midline shift overlying a region of prominent pneumocephalus from the old right MCA distribution infarct. MEDICAL HISTORY: Prior aortic dissection repair (10/07/2017) with resulting cerebrovascular accident involving the cerebrum requiring decompressed right craniotomy (10/13/2017) with resulting right sided flaccidity, bilateral vocal fold paralysis status post full and partial injections with Radiesse Voice injectable, severe malnutrition initially requiring nasogastric tube supplementation and later percutaneous endoscopic gastrostomy (PEG) tube placement, acute hypoxia requiring intubation and tracheostomy tube placement (removed), asthma, hypertension, acute kidney injury, status post inguinal herniorrhaphy, kidney stones status post lithotripsy, depression, left ankle open reduction and internal fixation, left wrist open reduction and internal fixation, bilateral heel spur removal, tracheostomy. STUDY FINDINGS: Patient participated in a Modified Barium Swallow (MBS) study on 05/21/2018. Dr. Nuñez was the radiologist present for this evaluation. This study was recorded in the lateral view and images were sent to PACs for storage. The following consistencies were presented to this patient for analysis of oropharyngeal swallow function: thin liquids, pudding, and a regular textured, Deborah Doone cookie. Results of the MBS are as follows: PENETRATION / ASPIRATION SCALE (HUERTA): 1 = does not enter airway 2 = enters airway/above vocal folds/ejected 3 = enters airway/above vocal folds/not ejected 4 = enters airway/contacts vocal folds/ejected 5 = enters airway/contacts vocal folds/not ejected 6 = enters airway/below vocal folds/ejected 7 = enters airway/below vocal folds/not ejected despite effort 8 = enters airway/below vocal folds/no effort PENETRATION / ASPIRATION SCALE (SCORE): Thin liquid - 5 mL tsp.: 1 Thin liquids via cup (chin tuck): 1 Thin liquids via cup (chin tuck): 1 Thin liquids via cup (chin tuck): 1 Thin liquids via cup (single sip): 1 Thin liquids via cup (single sip): 1 Thin liquids via straw (single sip): 1 Thin liquids via straw (chin tuck): 1 Pudding via spoon: 1 Regular textured cookie: 1 Thin liquids via straw (chin tuck): 2 Thin liquids via straw (chin tuck): 1 Thin liquids via straw (chin tuck): 1 IMPRESSION: DIAGNOSIS: mild to moderate oropharyngeal dysphagia (R13.12) ORAL PHASE CHARACTERIZED BY: LABIAL SEAL: no labial escape TONGUE CONTROL DURING BOLUS MANIPULATION: posterior escape of greater than half of bolus BOLUS PREPARATION / MASTICATION: timely chewing and mashing; diffusely spread BOLUS TRANSPORT / LINGUAL MOTION: mild repetitive/disorganized tongue motions (undulations) ORAL RESIDUE: large residue collection on oral structures (lateral buccal cavity and lingual blade) with pureed and solid textures (cleared with liquid wash); trace residue lining oral structures with thin liquids PHARYNGEAL PHASE CHARACTERIZED BY: INITIATION OF PHARYNGEAL SWALLOW: bolus head at posterior laryngeal surface of epiglottis at first hyoid excursion SOFT PALATE ELEVATION: no bolus between soft palate and pharyngeal wall LARYNGEAL ELEVATION: partial superior movement of thyroid cartilage/partial approximation of arytenoids cartilage to epiglottic petiole ANTERIOR HYOID EXCURSION: partial anterior movement EPIGLOTTIC MOVEMENT: inconsistent epiglottic inversion LARYNGEAL VESTIBULE CLOSURE AT HEIGHT OF SWALLOW: complete laryngeal vestibule closure with no air/contrast in laryngeal vestibule PHARYNGEAL STRIPPING WAVE: pharyngeal stripping wave present / diminished PHARYNGOESOPHAGEAL SEGMENT OPENING: partial to minimal distension and partial duration; partial obstruction of flow TONGUE BASE RETRACTION: trace column of contrast between tongue base and posterior pharyngeal wall PHARYNGEAL RESIDUE: intermittent large collection of residue within or on pharyngeal structures (valleculae) with more viscous textures; small collections of residue within the pyriforms ESOPHAGEAL PHASE CHARACTERIZED BY: ESOPHAGEAL BOLUS CLEARANCE IN THE UPRIGHT POSITION: could not view EFFECTS OF TREATMENT STRATEGIES ATTEMPTED: Chin tuck posture = effective Double swallow = moderately effective Reduced bolus size = moderately effective Removal of straw = no discernible difference DIET TEXTURE RECOMMENDATIONS: Will recommend a regular-soft textured, thin liquid diet following session with the Patients home health speech-language pathologist. COMPENSATORY STRATEGIES RECOMMENDED: Distant supervision with setup assistance, chin tuck with slight anterior lean, reduced bolus volume, reduced rate of intake, liquid chaser / double swallow at reasonable intervals post solid / pureed ingestion, seated upright at 90 degrees during PO intake, remain upright for 30-60 minutes post meal (GERD precaution) INTERPRETATION OF RESULTS: Patient presents with mild to moderate oropharyngeal dysphagia (R13.12) secondary to a right middle cerebral artery cerebrovascular accident requiring decompressed right craniotomy complicated by vocal fold paralysis, with slight functional improvements noted in comparison to the 03/07/2018 study. Oral preparatory phase marked by improved mastication efficiency with slight ?munching? quality with the bolus rather diffusely spread during mastication. Oral transport phase marked by suboptimal lingual control with consistent mild undulations particularly with more viscous textures; premature bolus loss of 10-50% of bolus collecting within the valleculae prior to deglutition; poor oral clearance particularly with solid textures (cleared with liquid wash); improved anterior bolus containment. Pharyngeal phase primarily marked by impaired (albeit improving) pharyngeal swallow onset timing resulting in suboptimal bolus location upon swallow onset (ameliorated with chin tuck posture); suboptimal pharyngeal clearance attributed to reduced posterior pharyngeal stripping wave action and poor pharyngoesophageal segment relaxation resulting in pharyngeal retention within the valleculae and pyriforms respectively; and impaired (albeit improving) closure of the airway during deglutition attributed to reduced hyolaryngeal excursion resulting in inconsistent epiglottic inversion with noted sufficient laryngeal vestibule pressure generated to expel penetrated material (one occasion). All deficits controlled with bolus viscosity and volume adjustments in addition to execution of the chin tuck posture. Continued hypophonia with reported persistent weak cough response suggestive of continued dystussia vs. atussia, along with persistent aphonia / dysphonia indicating continued vocal fold dysfunction. No aspiration noted during the current study, though the Patient does have a history of silent aspiration; proceed with caution. RECOMMENDATIONS: Cannot guarantee skilled nursing tolerance of thin liquids when considering the Patient?s long and tortuous medical course throughout the year that has been complicated by aspiration related pneumonia; recommend proceeding with caution. The Patient is considered to be at higher risk of dysphagia exacerbation with concurrent medical complications or iatrogenic factors effecting cognition and / or ambulation, higher risk of pulmonary complications associated with aspiration with compromised immune system. Would recommend thorough training and strict adherence to recommended aspiration precautions, as the Patient is considered at high risk of aspiration related pulmonary complications due to the presence and extent of aspiration during prior sessions that was both overt (larger volumes) and silent (reduced volumes) in nature, presence of bilateral vocal fold palsy with limited responsiveness to injections, significance of dystussia vs. atussia, extent of neurological complications with cognitive deficits, left sided hemiplegia with the Patient functionally unable to ambulate or independently maintain upright seated positioning with aspiration consolidation also more likely to collect in the left lower lobes due to noted persistent left sided leaning. Provided Patient and family education regarding the importance of oral care to combat aspiration related pulmonary complications; would recommend an aggressive oral care program that includes pre-rinse use prior to water intake; routine oral care in the a.m., prior to oral intake, after oral intake, and prior to bed via toothbrush / swab / rinse; frequent dental checkups with a licensed dentist and dental hygienist. The Patient requires intensive skilled speech-language intervention targeting continued diet texture management; training and implementation of recommended compensatory strategies; training and implementation of recommended oropharyngeal strengthening exercises to facilitate improved labial control / strength, lingual control / strength, laryngeal vestibule closure / pressure, and pharyngeal motility; and training / implementation of a home oral care protocol to reduce the risk of aspiration related pulmonary complications. Recommend frequent temperature and fatigue checks post intake, particularly if intolerance is suspected, with recommendations to immediately consult with the Patients primarily care physician if the Patient is spiking a low grade fever (1.5 degrees above baseline approximately 2-3 hours post ingestion), or is demonstrating unexplained post intake fatigue. ADDITIONAL COMMENTS/RECOMMENDATIONS: Results and recommendations were discussed with the Patient and Patients family immediately following MBS completion, with the Patient verbalizing understanding and agreement with all recommendations and education provided. IMAGE COUNT: [id number] G-CODES: SWALLOWING [id number] Current Status: CJ SWALLOWING G8997 Goal Status: CI SWALLOWING G8998 Discharge Status: SEE Ye M.A. CCC-TERMITE CONTROL SERVICE REPRESENTATIVE [facility] Speech-Language Pathology Department [email or web address]
== END ==
PROVIDERS: Family Provider Family Medicine; PCP Family Medicine; Referring Provider Family Medicine; Visit Provider Family Medicine
DX: R13.10 Dysphagia, unspecified (principal); J38.00 Paralysis of vocal cords and larynx, unspecified; R49.0 Dysphonia; J38.3 Other diseases of vocal cords; R13.13 Dysphagia, pharyngeal phase; Z86.73 Personal history of transient ischemic attack (TIA), and cerebral infarction without residual deficits
CPT/HCPCS: 74230; 92611

== ENCOUNTER 2018-06-06 08:25 | Day surgery (SDC) | payer OTHER, SELFPAY ==
[2018-06-06] VITALS (10 sets, daily range): BP systolic 113–158; BP diastolic 75–91; PULSE 56–64; RESP 15–16; TEMP 36.7–37.1; O2SAT 95–100; BMI 19.4
[2018-06-06] MEDS: Cefazolin 2 GM in 0.9% Normal Saline 100 ML IV (11:08)
--- NOTE | 2018-06-06 11:17 | RAD_ITS ---
STUDY: Fluoroscopy LUMBAR SPINE REASON FOR EXAM: Male, 52 years old. Intraoperative fluoroscopy 2 views TECHNIQUE: Fluoroscopic 2 view(s) of the lumbar spine were obtained. COMPARISON: None FINDINGS: Intraoperative fluoroscopy. 2 intraoperative studies are performed visualizing the lumbar spine. There is a hemostat marker overlying the soft tissues. Fluoroscopy time 96.2 seconds. RAD/Lumbar Spine 2 or 3 Views IMPRESSION: 2 views fluoroscopy intraoperative procedure in progress. 96.2 seconds of fluoroscopy time recorded. Electronically Signed: Trudi Rodríguez MD at 16:56 EST Tel , Service support ,
[2018-06-06] MEDS: Bupiv/Epi 0.5% Mpf 30 ML Vial (11:48)
[2018-06-06] MEDS: Lactated Ringers 1,000 ML 15 ML IV (15:00)
== END 2018-06-06 16:07 | disposition home or self-care (01) ==
LOC: SDC 08:25 → AC 08:26
PROVIDERS: Family Provider Family Medicine; PCP Family Medicine; Referring Provider Anesthesiology Pain Medicine; Visit Provider Anesthesiology Pain Medicine
PROC: (CPT 62350; principal; 2018-06-06 09:45)
DX: M62.838 Other muscle spasm (principal); I69.998 Other sequelae following unspecified cerebrovascular disease; M62.40 Contracture of muscle, unspecified site; I69.954 Hemiplegia and hemiparesis following unspecified cerebrovascular disease affecting left non-dominant side; G89.4 Chronic pain syndrome; I10 Essential (primary) hypertension; J45.909 Unspecified asthma, uncomplicated; Z79.899 Other long term (current) drug therapy
CPT/HCPCS: 62350; 62361; 72020; 72100; 76000; J7120; J0475; J0476; J2405; J3490

== ENCOUNTER → 2018-08-20 07:51 | Outpatient (CLI) | payer OTHER, SELFPAY ==
[2018-08-12 15:22] VITALS: BMI 21.8
--- NOTE | 2018-08-20 07:59 | ECHOCS_ITS ---
Reason For Study: PERICARDIAL EFFUSION Procedure This was a 2D Doppler, Color Flow transthoracic echocardiogram. Contrast injection was performed. The study was technically difficult. Technically difficult study due to images obtained from RSB. Exam performed in department. Left Ventricle Normal size and thickness. The estimated ejection fraction is 45-50 %. Normal diastology for age. Posterior-Basal: Mildly hypokinetic. Infero-Basal: Mildly hypokinetic. Right Ventricle Normal size and thickness. Normal systolic function. Atria The left atrium is mildly enlarged. The right atrium is moderately enlarged. Prominent eustachian valve. Normal atrial septum. Mitral Valve The mitral valve is structurally normal. No prolapse or stenosis seen. Tricuspid Valve Normal tricuspid valve. Mild to moderate (1-2+) tricuspid valve insufficiency. Right ventricular systolic pressure estimated to be 31 mmHg. Aortic Valve Normal aortic valve. Trisinus/trileaflet aortic valve. Pulmonic Valve Normal pulmonic valve. Great Vessels Normal aortic root. Stent graft noted in descending aorta. Normal inferior vena cava. Inferior vena cava collapse with sniff. Pericardium/Pleural No pericardial effusion. Medication 22 gauge I.V. with prn adaptor inserted into right arm. Diluted definity 8ml given slow IV push to enhance endocardial definition. MMode/2D Measurements & Calculations LVIDd: 4.3 cm IVSd: 0.91 cm LAV(MOD-bp): 69.4 ml LVIDs: 3.2 cm LVPWd: 0.96 cm FS: 25.2 % LAV(MOD-bp) Indexed: 40.5 ml/m2 LAV(MOD-sp2): 82.7 ml LAV(MOD-sp4): 56.3 ml SV(MOD-sp4): 61.7 ml SV(sp4-el): 64.1 ml LVAd ap4: 36.0 cm2 EDV(MOD-sp4): 123.1 ml EDV(sp4-el): 124.4 ml LVAs ap4: 23.3 cm2 ESV(MOD-sp4): 61.5 ml ESV(sp4-el): 60.4 ml EF(MOD-sp4): 50.1 % EF(sp4-el): 51.5 % LA A4 area: 20.6 cm2 RA A4 area: 23.9 cm2 Time Measurements MV dec time: 0.27 sec Doppler Measurements & Calculations MV E max mikie: 77.4 cm/sec Lat Peak E' Mikie: 11.2 cm/sec Med Peak E' Mikie: 8.3 cm/sec MV A max mikie: 33.4 cm/sec E/E' lat: 6.9 E/E' med: 9.3 MV E/A: 2.3 Ao V2 max: 99.3 cm/sec LV V1 max: 103.5 cm/sec PA V2 max: 70.1 cm/sec Ao max P.9 mmHg LV V1 max P.3 mmHg TR max mikie: 253.5 cm/sec TR max P.7 mmHg Interpretation Summary The estimated ejection fraction is 45-50 %. Normal diastology for age. Posterior-Basal: Mildly hypokinetic Infero-Basal: Mildly hypokinetic The left atrium is mildly enlarged. The right atrium is moderately enlarged. Mild to moderate (1-2+) tricuspid valve insufficiency. Right ventricular systolic pressure estimated to be 31 mmHg. Stent graft noted in descending aorta. The study was technically difficult. There is no comparison study available. Contrast injection was performed. Ordering Physician: Ra Jain Referring Physician: KAYKAY WOODALL Performed By: Siobhan Parikh, LUICS, RVT
--- OUTSIDE RECORDS SUMMARY | 2018-10-22 02:13 | XMS RPT_ITS ---
:1965 Author Organization OHIP Support Name Relationship Address Phone [employer] Unavailable [address] + [place] [address] JANAY DANA Unavailable [address] + [place] [address] JUNAID MESSERISTEN Unavailable [address] + [place] [address] [facility] Unavailable [address] + [place] [address] JANAY DANA Unavailable [address] + [place] [address] [facility] Unavailable [address] + [place] [address] JANAY DANA Unavailable [address] + [place] [address] [facility] Unavailable [address] + [place] [address] JANAY DANA Unavailable [address] + [place] [address] [facility] Unavailable [address] + [place] [address] JANAY DANA Unavailable [address] + [place] [address] [facility] Unavailable [address] + [place] [address] JANAY DANA Unavailable [address] + [place] [address] [facility] Unavailable [address] + [place] [address] JANAY DANA Unavailable [address] + [place] [address] [facility] Unavailable [address] + [place] [address] PIPER GUSTAFSONNDA Unavailable [address] + [place] [address] [facility] Unavailable [address] + [place] [address] JANAY DANA Unavailable [address] + [place] [address] [facility] Unavailable [address] + [place] [address] JANAY DANA Unavailable [address] + [place] [address] [facility] Unavailable [address] + [place] [address] JANAY DANA Unavailable [address] + [place] [address] [facility] Unavailable [address] + [place] [address] JANAY DANA Unavailable [address] + [place] [address] [facility] Unavailable [address] + [place] [address] JANAY DANA Unavailable [address] + [place] [address] [facility] Unavailable [address] + [place] [address] PIPER GUSTAFSONNDA Unavailable [address] + [place] [address] [facility] Unavailable [address] + [place] [address] JANAY DANA Unavailable [address] + [place] [address] [facility] Unavailable [address] + [place] [address] JANAY DANA Unavailable [address] + [place] [address] [facility] Unavailable [address] + [place] [address] JANAY DANA Unavailable [address] + [place] [address] [facility] Unavailable [address] + [place] [address] PIPER GUSTAFSONNDA Unavailable [address] + [place] [address] [facility] Unavailable [address] + [place] [address] JANAY DANA Unavailable [address] + [place] [address] [facility] Unavailable [address] + [place] [address] JANAY DANA Unavailable [address] + [place] [address] [facility] Unavailable [address] + [place] [address] JANAY DANA Unavailable [address] + [place] [address] [facility] Unavailable [address] + [place] [address] JANAY DANA Unavailable [address] + [place] [address] [facility] Unavailable [address] + [place] [address] PIPER GUSTAFSONNDA Unavailable [address] + [place] [address] [facility] Unavailable [address] + [place] [address] JANAY DANA Unavailable [address] + [place] [address] [facility] Unavailable [address] + [place] [address] PIPER GUSTAFSONNDA Unavailable [address] + [place] [address] [facility] Unavailable [address] + [place] [address] PIPER GUSTAFSONNDA Unavailable [address] + [place] [address] [facility] Unavailable [address] + [place] [address] PIPER GUSTAFSONNDA Unavailable [address] + [place] [address] [facility] Unavailable [address] + [place] [address] JANAY DANA Unavailable [address] + [place] [address] [facility] Unavailable [address] + [place] [address] JANAY DANA Unavailable [address] + [place] [address] [facility] Unavailable [address] + [place] [address] JANAY DANA Unavailable [address] + [place] [address] [facility] Unavailable [address] + [place] [address] JANAY DANA Unavailable [address] + [place] [address] [facility] Unavailable [address] + [place] [address] JANAY DANA Unavailable [address] + [place] [address] [facility] Unavailable [address] + [place] [address] JANAY DANA Unavailable [address] + [place] [address] [facility] Unavailable [address] + [place] [address] JANAY DANA Unavailable [address] + [place] [address] [facility] Unavailable [address] + [place] [address] JANAY DANA Unavailable [address] + [place] [address] [facility] Unavailable [address] + [place] [address] JANAY DANA Unavailable [address] + [place] [address] [facility] Unavailable [address] + [place] [address] JANAY DANA Unavailable [address] + [place] [address] [facility] Unavailable [address] + [place] [address] JANAY DANA Unavailable [address] + [place] [address] [facility] Unavailable [address] + [place] [address] JANAY, DANA Unavailable [address] + [place] [address] [facility] Unavailable [address] + [place] [address] JANAY, DANA Unavailable [address] + [place] [address] Care Team Providers Name Role Phone Kristina Johnathon Fonseca Attending Unavailable Johnathon Acevedo Referring Unavailable [facility] [place] [facility] Unavailable [facility] [place] [facility] Unavailable Soniya Jon Attending Unavailable [facility], [place] [facility] Unavailable Elias Bolden Attending Unavailable Liana Jain Attending Unavailable [facility], Kaykay Referring Unavailable Liana Jain Attending Unavailable Liana Jain Referring Unavailable [facility] Primary Care Unavailable Edd, Luis Chi Admitting Unavailable Edd, Luis Chi Attending Unavailable Edd, Luis Chi Referring Unavailable [facility], [place] [facility] Unavailable Liana Goodman Attending Unavailable Liana Goodman Referring Unavailable [facility] Primary Care Unavailable Edd, Luis Chi Admitting Unavailable Amie Coronel PA-C Attending Unavailable Edd, Luis Chi Referring Unavailable [facility], [place] [facility] Unavailable Edd, Luis Chi Consulting Unavailable Edd, Luis Chi Admitting Unavailable Kaykay Reyes Attending Unavailable Edd, Luis Chi Referring Unavailable [facility], [place] [facility] Unavailable Edd, Luis Chi Consulting Unavailable Durant, David Admitting Unavailable Bhargav, David Referring Unavailable [facility] Primary Care Unavailable Maurice Gama Consulting Unavailable Jim Keenan Attending Unavailable Durant, David Admitting Unavailable Maurice Gama Attending Unavailable Bhargav, David Referring Unavailable [facility] Primary Care Unavailable Maurice Gama Consulting Unavailable Bhargav, David Consulting Unavailable Bhargav, David Admitting Unavailable Jim Keenan Attending Unavailable Bhargav, David Referring Unavailable [facility] Primary Care Unavailable Maurice Gama Consulting Unavailable Jim Keenan Consulting Unavailable Bhargav, David Admitting Unavailable Jim Keenan Attending Unavailable Bhargav, David Referring Unavailable [facility] Primary Care Unavailable Maurice Gama Consulting Unavailable Jim Keenan Consulting Unavailable Bhargav, David Admitting Unavailable Jim Keenan Attending Unavailable Durant, David Referring Unavailable [facility] Unavailable Jopperi, Maurice Consulting Unavailable Jim Keenan Consulting Unavailable Liana Goodman Attending Unavailable Durant, David Admitting Unavailable [facility] Unavailable Jopperi, Maurice Consulting Unavailable Andrew Talley Attending Unavailable Basali, Ayman Consulting Unavailable Glory Shelton Consulting Unavailable Durant, David Admitting Unavailable [facility] Unavailable Jopperi, Maurice Consulting Unavailable Jopperi, Maurice Attending Unavailable Durant, David Consulting Unavailable Durant, David Admitting Unavailable Whitethornelf, Meaganasem Attending Unavailable [facility] Unavailable Jopperi, Maurice Consulting Unavailable Ashelfah, Ghasem Consulting Unavailable Durant, David Admitting Unavailable Koram, Annamaria Abbey Attending Unavailable [facility] Unavailable Jopperi, Maurice Consulting Unavailable Koram, Annamaria Abbey Consulting Unavailable Durant, David Admitting Unavailable Koram, Annamaria Wolffa Attending Unavailable [facility] Unavailable Jopperi, Maurice Consulting Unavailable Basali, Ayman Consulting Unavailable Koram, Annamaria Abbey Consulting Unavailable Durant, David Admitting Unavailable Koram, Annamaria Abbey Attending Unavailable [facility] Unavailable Jopperi, Maurice Consulting Unavailable Basali, [place] Consulting Unavailable Koram, Annamaria Abbey Consulting Unavailable Durant, David Admitting Unavailable Mayank, Andrew Attending Unavailable [facility] Unavailable Jopperi, Maurice Consulting Unavailable Basali, [place] Consulting Unavailable Mayank, Andrew Consulting Unavailable Durant, David Admitting Unavailable Mayank, Andrew Attending Unavailable [facility] Unavailable Jopperi, Maurice Consulting Unavailable Basali, [place] Consulting Unavailable Mayank, Andrew Consulting Unavailable Durant, David Admitting Unavailable Mayank, Andrew Attending Unavailable [facility] Care Unavailable Jopperi, Maurice Consulting Unavailable Basali, [place] Consulting Unavailable Mayank, Andrew Consulting Unavailable Bhargav, David Admitting Unavailable Jim Keenan Attending Unavailable [facility] Unavailable Jopperi, Maurice Consulting Unavailable Basali, [place] Consulting Unavailable Jim Keenan Consulting Unavailable Durant, David Admitting Unavailable [facility] Care Unavailable Jopperi, Maurice Consulting Unavailable Luis Enrique Melgra Attending Unavailable Basali, [place] Consulting Unavailable Jim Keenan Consulting Unavailable [place], Bern Attending Unavailable Agyepong, Luis Enrique Admitting Unavailable Jeffrey Sheltonony Referring Unavailable [facility] Primary Care Unavailable AlexabrGlory moreira Consulting Unavailable Chang, Gilda S. Consulting Unavailable Agyepong, Luis Enrique Admitting Unavailable Calabretta, Glory Attending Unavailable Calabrlillie, Glory Referring Unavailable [facility] [place] [facility] Unavailable Calabretta, Glory Consulting Unavailable Chang, Gilda S. Consulting Unavailable Mayank, Andrew Consulting Unavailable Agyepong, Luis Enrique Admitting Unavailable Mayank, Andrew Attending Unavailable Nikita, Glory Referring Unavailable [facility] Unavailable Calabrlillie, Glory Consulting Unavailable Chang, Gilda S. Consulting Unavailable Mayank, Andrew Consulting Unavailable Agyepong, Luis Enrique Admitting Unavailable Mayank, Andrew Attending Unavailable Jeffrey Sheltonony Referring Unavailable [facility] Primary Care Unavailable CalabrGlory moreira Consulting Unavailable Chang, Gilda S. Consulting Unavailable Mayank, Andrew Consulting Unavailable Agyepong, Luis Enrique Admitting Unavailable Liana Goodman Attending Unavailable Jeffrey Sheltonony Referring Unavailable [facility] Primary Care Unavailable CalabrettaGlory Consulting Unavailable Chang, Gilda S. Consulting Unavailable Mayank, Andrew Consulting Unavailable Agyepong, Luis Enrique Admitting Unavailable Mayank, Andrew Attending Unavailable Jeffrey Sheltonony Referring Unavailable [facility] Primary Care Unavailable Calabrlillie, Glory Consulting Unavailable Chang, Gilda S. Consulting Unavailable Mayank, Andrew Consulting Unavailable Agyepong, Luis Enrique Admitting Unavailable [place], Bern Attending Unavailable Alexabrlillie, Glory Referring Unavailable [facility] Primary Care Unavailable Calabretta, Glory Consulting Unavailable Chang, Gilda S. Consulting Unavailable [place], [place] Consulting Unavailable David Durant Admitting Unavailable David Durant Attending Unavailable David Durant Referring Unavailable [facility] Primary Care Unavailable [place], [place] Consulting Unavailable Agyepong, Luis Enrique Admitting Unavailable [place], Bern Attending Unavailable Alexabrlillie, Glory Referring Unavailable [facility], [place] [facility] Unavailable CalabrGlory moreira Consulting Unavailable Chang, Gilda S. Consulting Unavailable [place], [place] Consulting Unavailable Aracelis, Everardo Attending Unavailable Andrew Talley Referring Unavailable AracelisEverardo yier Attending Unavailable David Durant Referring Unavailable Elderbrock, Kaykay Attending Unavailable [facility], Kaykay Referring Unavailable [facility], Kaykay Primary Care Unavailable Jarvis Cifuentes Attending Unavailable BasalJarvis velasco Referring Unavailable Elderbrodajuan, Kaykay Primary Care Unavailable Liana Goodman Attending Unavailable Elderbrodajuan, Kaykay Referring Unavailable BOSTONJOLEEN Referring Unavailable BOSTONJOLEEN Referring Unavailable LINDA COTTO Admitting Unavailable VICTORINOARPIT Attending Unavailable DIPIERROEAVN V Referring Unavailable MALLORY, GLORY Patten Admitting Unavailable MALLORY, GLORY Patten Attending Unavailable RUSSSHER SOLIZ Attending Unavailable SHARIF, FLORENCE Patten Referring Unavailable SHARIF, FLORENCE Patten Referring Unavailable SHARIF, FLORENCE Patten Attending Unavailable RUSSMANSHER Referring Unavailable SHARIF, FLORENCE Patten Referring Unavailable TRINIDAD ZEPEDA) Admitting Unavailable BORDEIANU DIMITREEA Attending Unavailable SHARIF, FLORENCE Patten Admitting Unavailable SHARIF, FLORENCE Patten Attending Unavailable SHARIF, FLORENCE Patten Referring Unavailable SHARIF, FLORENCE Patten Admitting Unavailable SHARIF, FLORENCE Patten Attending Unavailable SHARIF, FLORENCE Patten Referring Unavailable KSHETTRY, MARY R Admitting Unavailable SHARIF, FLORENCE Patten Attending Unavailable SHARIF, FLORENCE Patten Referring Unavailable NORTHNADIA Attending Unavailable SHARIF, FLORENCE Patten Attending Unavailable SHARIF, FLORENCE Patetn Referring Unavailable NORTH, NADIA Attending Unavailable JAMIE MORENO Attending Unavailable JAMIE MORENO Referring Unavailable KIRIT, KAYKAY Lara Attending Unavailable KIRIT, KAYKAY Lara Attending Unavailable ELDERBROKAYKAY GRAFF Referring Unavailable NEWTON BARNETT ([place]) Referring Unavailable ABHISHEKBILLIE (ENVELOPE SEALER) Attending Unavailable NEWTON BARNETT ([place]) Referring Unavailable ABHISHEKBILLIE PAL (ENVELOPE SEALER) Referring Unavailable NORTHNADIA JJ Attending Unavailable BILLIE WEISS (ENVELOPE SEALER) Referring Unavailable POWER ABEL Referring Unavailable ELDERBROCKKAYKAY Attending Unavailable ELDERKAYKAY OLIVER Referring Unavailable ElderbroKaykay graff Primary Care Unavailable KATHI BRAGG Attending Unavailable KATHI BRAGG Attending Unavailable PROBLEMS PROBLEMS DATE TYPE CONDITION / CODE ATTENDING STATUS SOURCE Unknown 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 / I71.00(ICD-10) Hospital Repository Unknown I10 - Essential Liana aJin Active [place] [facility] (primary) hypertension Community / I10(ICD-10) Hospital Repository Unknown I31.3 - Pericardial Liana Jain Active [place] [facility] effusion Community (noninflammatory) / Hospital I31.3(ICD-10) Repository Active Unspecified abnormal NA Active [place] [facility] finding in specimens Clinic Main from other organs, [place] systems and tissues / Repository 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, Clinic Main unspecified / [place] J38.00(ICD-10) Repository Active Dysphonia / NORTHNADIA JJ Active [place] [facility] R49.0(ICD-10) Clinic Main [place] Repository Active Other diseases of NADIA KAT Active [place] [facility] vocal cords / Clinic Main J38.3(ICD-10) [place] Repository Unknown I69.351 - Hemiplegia Bhargav Active [place] [facility] and hemiparesis [facility] following cerebral Hospital infarction affecting Repository right dominant side / I69.351(ICD-10) Unknown K62.5 - Hemorrhage of [place], [place] Active [place] 8 anus and rectum / Community K62.5(ICD-10) Hospital Repository Unknown R94.31 - Abnormal Aracelis, [place] Active [place] [facility] electrocardiogram Community [ECG] [EKG] / Hospital R94.31(ICD-10) Repository Active Moderate SHARIF, Active [place] [facility] protein-calorie PETER A Clinic Main malnutrition / [place] E44.0(ICD-10) Repository Active Other acquired SHARIF, Active [place] [facility] deformity of head / [facility] Clinic Main M95.2(ICD-10) [place] Repository Active Unspecified severe SHARIF, Active [place] 8 protein-calorie [facility] A Clinic Main malnutrition / [place] E43(ICD-10) Repository Active Aphonia / SHARIF, Active [place] [facility] R49.1(ICD-10) [facility] Clinic Main [place] Repository Active Dysphagia, unspecified SHARIF, Active [place] [facility] / R13.10(ICD-10) [facility] [place] Repository Active Dysphagia, pharyngeal SHARIF, Active [place] [facility] phase / R13.13(ICD-10) [facility] Repository Unknown R13.10 - Dysphagia, Maxine, Active [place] [facility] unspecified / [facility] R13.10(ICD-10) Hospital Repository Unknown R53.81 - Other malaise Edd, Luis Chi Active [place] 8 / R53.81(ICD-10) [facility] Hospital Repository Unknown G81.94 - Hemiplegia, Edd, Luis Chi Active [place] 8 unspecified affecting Community left nondominant side Hospital / G81.94(ICD-10) Repository Active Other specified MIRELLADEIANU, Active [place] [facility] / Z98.890(ICD-10) [place] Repository Active Cerebral infarction DHARMESH Active [place] [facility] due to unspecified DIMITREEA Clinic Main occlusion or stenosis [place] of right middle Repository cerebral artery / I63.511(ICD-10) Active Acute respiratory DHARMESH Active [place] [facility] failure with hypoxia / DIMITREEA Clinic Main J96.01(ICD-10) [place] Repository Active Urinary tract MIRELLADESTARRU, Active [place] [facility] infection, [facility] specified / [place] N39.0(ICD-10) Repository Active Enterococcus as the BORDEIANU, Active [place] [facility] cause of diseases [facility] classified elsewhere / [place] B95.2(ICD-10) Repository Active Dysphagia, BORDEIANU, Active [place] 8 oropharyngeal phase / DIMITREEA Clinic Main R13.12(ICD-10) [place] Repository Active Other muscle spasm / BORDEIANU, Active [place] 8 M62.838(ICD-10) DIMITREEA [facility] Main [place] Repository Active Lobar pneumonia, ZACHOPOULOS, Active [place] [facility] unspecified organism / [facility] Other J18.1(ICD-10) [place] Repository Admitting Unknown / UNK(Unknown) MAHSA Active [facility] 8 diagnosis [facility] Repository Active Unknown / UNK(Unknown) GLORY TEJADA Active [place] [facility] A Clinic Main [place] Repository Active Elevated white blood ARPIT MCKENZIE Active [place] [facility] cell count, Clinic Main unspecified / [place] D72.829(ICD-10) Repository Active Unspecified jaundice / [facility] MCKENZIE Active [place] [facility] R17(ICD-10) Clinic Main [place] Repository Active Other specified ARPIT MCKENZIE L Active [place] [facility] abnormal findings of Clinic Main blood chemistry / [place] R79.89(ICD-10) Repository Active Hyperosmolality and VICTORINO RICKY Active [place] [facility] hypernatremia / Clinic Main E87.0(ICD-10) [place] Repository Active Unspecified VICTORINO RICKY Active [place] [facility] convulsions / Clinic Main R56.9(ICD-10) [place] Repository Active Acute kidney failure, VICTORINO RICKY Active [place] [facility] unspecified / Clinic Main N17.9(ICD-10) [place] Repository Active Essential (primary) VICTORINOARPIT Active [place] [facility] hypertension / Clinic Main I10(ICD-10) [place] Repository Active Other postprocedural VICTORINO RICKY Active [place] [facility] complications and Clinic Main disorders of [place] respiratory system, Repository not elsewhere classified / J95.89(ICD-10) Active 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 / I71.01(ICD-10) Clinic Main [place] Repository Active Acidosis / VICTORINO RICKY Active [place] [facility] E87.2(ICD-10) Clinic Main [place] Repository Active Cerebral edema / ARPIT MCKENZIE Active [place] [facility] G93.6(ICD-10) Clinic Main [place] Repository Active Acute posthemorrhagic VICTORINOARPIT Active [place] [facility] anemia / D62(ICD-10) Clinic [facility] [place] Repository Active Coagulation defect, VICTORINOARPIT Active [place] [facility] unspecified / Clinic Main D68.9(ICD-10) [place] Repository Active Other acute ARPIT MCKENZIE Active [place] [facility] postprocedural pain / Clinic Main G89.18(ICD-10) [place] Repository Active Heart failure, ARPIT MCKENZIE Active [place] [facility] unspecified / Clinic Main I50.9(ICD-10) [place] Repository Active Cerebral infarction, ARPIT MCKENZIE Active [place] [facility] unspecified / Clinic Main I63.9(ICD-10) [place] Repository Active Unspecified asthma, ARPIT MCKENZIE Active [place] [facility] uncomplicated / Clinic Main J45.909(ICD-10) [place] Repository Active Atelectasis / ARPIT MCKENZIE Active [place] [facility] J98.11(ICD-10) Clinic Main [place] Repository Active Other hypotension / ARPIT MCKENZIE Active [place] [facility] I95.89(ICD-10) Clinic Main [place] Repository Active Hypoxemia / ARPIT MCKENZIE Active [place] [facility] R09.02(ICD-10) Clinic [facility] [place] Repository Active Other elevated white ARPIT MCKENZIE Active [place] [facility] blood cell count / Clinic Main D72.828(ICD-10) [place] Repository Active [place] coma scale ARPIT MCKENZIE Active [place] [facility] score 3-8, unspecified Clinic Main time / [place] R40.2430(ICD-10) Repository Active Chronic respiratory ARPIT MCKENZIE Active [place] [facility] failure with hypoxia / Clinic Main J96.11(ICD-10) [place] Repository Unknown R07.9 - Chest pain, Ahmed, Rami Active [place] [facility] unspecified / Community R07.9(ICD-10) Hospital Repository Active Cough / R05(ICD-10) NA Active [place] [facility] Clinic Main [place] Repository PROCEDURES PROCEDURES No Procedure Records FoundRESULTS RESULTS PROGRESS Observed: 08/22/2018 Status: COMPLETED Source: [place] 5:30 PM [facility] REPOSITORY HNO ID: [id number] Author: Ricky Groves (Rn) Service: (none) Author Type: Registered Nurse Type: Progress Notes Filed: 08/22/2018 5:30 PM Note Text: PRIMARY CARE COORDINATION FOLLOW-UP NOTE Provider Action/FYI Noted Patient identified by name and date of . YES Signature Germain García RN August 22, 2018 PROGRESS Observed: 08/22/2018 Status: COMPLETED Source: [place] 5:08 PM [facility] REPOSITORY HNO ID: [id number] Author: Kaykay Beth Service: (none) Author Type: Physician Type: Progress Notes Filed: 08/22/2018 5:30 PM Note Text: Noted Kaykay Beth MD PROGRESS Observed: 08/22/2018 Status: COMPLETED Source: [place] 12:42 PM [facility] REPOSITORY HNO ID: [id number] Author: Zaid Corona) Geoffrey Service: (none) Author Type: Systems Test Engineer Type: Progress Notes Filed: 08/22/2018 5:30 PM Note Text: PRIMARY CARE COORDINATION PHMA LONGITUDINAL MAINTENANCE MONITORING PHMA Outreach: 1 month PCC Action/FYI: Jose is doing well. He was approval for 8 more weeks of Physical Therapy. Patient still needs OT approved. Some of his medication has been denied by [facility]. His is sending list to [employer] so we can contact patel Manzanares. Patient has appointment Dr. Rasheed on , August 27/2019 Follow up 1month Spoke to patient. Patient identified by name and . PCC last patient outreach encounter Last PCP appointment: 07-24-18 Has the patient missed or cancelled any appointments in the last two months? No Any [facility] ED or hospital admissions in the past 2 months ? see CC LPOC NO Any outside ED or hospital admissions in the past 2 months No Medical records: Obtained [facility] Everywhere MEDICATIONS: Many patients have questions or concerns about their medications. Any medication changes? No Were you told to hold any medications? No Were any of your medications discontinued? No Do you have any questions about getting or taking your medications? Yes, patient is home bound and cannot get prescription filled. Pend referral to Primary Care Social Work. Do you have all the necessary equipment and supplies at home? Yes Additional Patient Information Patient received a letter from [facility] denying medications. Patient's will my chart the names of medication. He needs assistance on getting OT approved through insurance. Next PH[facility] Outreach 1 month PHMA Huddle with PCC: Patient-reported concerns Continue monitoring Appointments for Next 60 Days Date Time Provider Location Dept Phone 08/27/2018 3:40 PM [facility] [place] [phone] 09/15/2018 10:30 AM [facility] [phone] ECHO, COMPLETE W/ Observed: 08/20/2018 Status: F Source: [place] CONTRAST 1:23 PM [facility] REPOSITORY [facility] Cardiovascular Services [address] [place] [address] Echo Complete W/ Contrast 08/20/18 0758 MR#: [id number] Acct: [id number] Name: JOSE GUSTAFSON Jr. Rep #: [id number] : 1965 53 From: Liana Jain MD Attending Dr: Liana Jain MD Status: REG CLI Ordering Dr: Liana Jain MD Date: 08/20/18 Location: CVS Sex: M C Admitted: Reason For Study: PERICARDIAL EFFUSION Procedure This was a 2D Doppler, Color Flow transthoracic echocardiogram. Contrast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 Confirmed 06/02/18] Oxycodone [Oxyir] 5 mg PO Q6H PRN PRN 6 Days #27 tab 04/18/18 [Rx Confirmed 06/06/18] Pantoprazole Sodium [Protonix] 40 mg PO DAILY #90 tab 04/18/18 [Rx Confirmed 06/02/18] Tamsulosin HCl [Flomax] 0.4 mg PO DAILY #90 cap 04/18/18 [Rx Confirmed 06/02/18] Venlafaxine HCl [Effexor] 75 mg PO BID #180 tab 04/18/18 [Rx Confirmed 06/02/18] busPIRone [Buspar] 5 mg PO DAILY #7 tab 04/18/18 [Rx Confirmed 06/02/18] levETIRAcetam tablet [Keppra tablet] 1,000 mg PO BID #180 tab 04/18/18 [Rx Confirmed 06/02/18] levETIRAcetam tablet [Keppra tablet] 250 mg PO BID #180 tab 04/18/18 [Rx Confirmed 06/02/18] Albuterol IH (ProAir) [Proair Hfa (SP)Vent Pts] 2 puff INHALATION Q4H PRN PRN 06/02/18 [History Confirmed 06/02/18] Budesonide/Formoterol 160/4.5 [Symbicort 160/4.5 Mcg Inhaler (SP)] 2 puff INHALATION BID 06/02/18 [History Confirmed 06/02/18] Fluticasone 110 Mcg [Flovent (SP)] 2 puff INHALATION BID 06/02/18 [History Confirmed 06/02/18] Polyethylene Glycol 3350 [Miralax] 17 gm PO PRN PRN 06/02/18 [History Confirmed 06/02/18] Sennosides [Senna] 8.6 mg PO BID 06/02/18 [History Confirmed 06/02/18] PFSH Social History Smoking Status: Former smoker HPI HPI HPI: JOSE GUSTAFSON, is a 53 M who presents to the office today for Office Procedures Peg Tube Provider Documentation Details:: Preoperative diagnosis: History of stroke Postoperative diagnosis: The same Procedure : PEG tube removal Surgical Maxine Procedure: PEG tube was removed and one díaz motion. No bleeding was identified. Sterile dressings were applied. The patient tolerated the procedure well Alert Qasim Alert Billing: Yes Port/Peg Port/Peg: PEG Removal Assessment AND Plan Orders Orders: Coding Level of Care Code Attention Qasim 07/01/18 1205 <Electronically signed by Liana Goodman MD> Date Liana Goodman MD Cosigner Signature: Date (if applicable) CC: Kaykay Beth MD LUMBAR SPINE 2 OR 3 Observed: 06/06/2018 Status: F Source: [place] Clouli 8:[address] [facility] REPOSITORY [facility] Imaging Services [address] [place] [id number] Lumbar Spine 2 or 3 Views MR#: [id number] Acct: [id number] Name: JOSE GUSTAFSON Juan Agrawal. Rep #: [id number] : 1965 M 52 From: Trudi Rodríguez MD PCP: Kaykay Beth MD Status: [facility] Study: Lumbar Spine 2 or 3 Views Date of Exam: 06/06/18 Exam# [id number] Ordering Dr: Jarvis Cifuentes MD STUDY: Fluoroscopy LUMBAR SPINE REASON FOR EXAM: Male, 52 years old. Intraoperative fluoroscopy 2 views TECHNIQUE: Fluoroscopic 2 view(s) of the lumbar spine were obtained. COMPARISON: None FINDINGS: Intraoperative fluoroscopy. 2 intraoperative studies are performed visualizing the lumbar spine. There is a hemostat marker overlying the soft tissues. Fluoroscopy time 96.2 seconds. RAD/Lumbar Spine 2 or 3 Views IMPRESSION: 2 views fluoroscopy intraoperative procedure in progress. 96.2 seconds of fluoroscopy time recorded. Electronically Signed: Trudi Rodríguez MD at 16:56 EST Tel , Service support , CC: Jarvis Cifuentes MD; Kaykay Beth MD Silver Wrapper: Signed MODIFIED BARIUM Observed: 05/21/2018 Status: F Source: [place] SWALLOW STUDY 2:[address] [facility] REPOSITORY [facility] Speech Pathology [address] [place] [address] Modified Barium Swallow Study MR#: [id number] Acct: [id number] Name: JOSE GUSTAFSON Jr. Rep #: [id number] : 1965 52 From: Leonard Ye M.A., CFY-SERGER PRIMARY / SECONDARY DIAGNOSIS: dysphagia (R13.10) REFERRING PHYSICIAN: Dr. Kaykay Beth MD CURRENT DIET: regular textures, nectar thickened liquids DENTITION: WFL MENTAL STATUS: impaired; left neglect RESPIRATORY STATUS: O2 via room air PREVIOUS MODIFIED BARIUM SWALLOW STUDY: 03/07/2018 MBS revealed moderate to severe oropharyngeal dysphagia (R13.12) with grade III SILENT aspiration and grade IV overt aspiration of thin liquids. 01/23/2018 MBS at [facility] revealed mild oropharyngeal dysphagia, improved from previous study, cleared for dysphagia level 3 diet. 01/17/2018 MBS at [facility] revealed moderate oropharyngeal dysphagia w/ slowed oral motor movement, impaired oral transit, posterior bolus loss, delayed pharyngeal swallow onset, mild pharyngeal residue, no aspiration or penetration, cleared for PO intake. 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 Patient known to this clinician from recent [facility] Acute Rehabilitation Unit and Transitional Care Unit admission; prior admission at [facility] associated with aspiration pneumonia status post right middle cerebral artery cerebrovascular accident requiring decompressed right craniotomy (September 2017) with resulting left sided flaccidity; severe and persistent dysphonia secondary to bilateral vocal fold paralysis / vocal fold spasticity of iatrogenic cause status post full and partial injections with Radiesse Voice injectable, with continued albeit somewhat improving executive functioning and left visuospatial neglect. The Patient is retired, college educated, and 29 years with 2 adult children. ADDITIONAL OBJECTIVE ASSESSMENT RESULTS: 03/14/2018 CT revealed a large right-sided subdural fluid and gas collection contributing to mass effect and midline shift overlying a region of prominent pneumocephalus from the old right MCA distribution infarct. MEDICAL HISTORY: Prior aortic dissection repair (10/07/2017) with resulting cerebrovascular accident involving the cerebrum requiring decompressed right craniotomy (10/13/2017) with resulting right sided flaccidity, bilateral vocal fold paralysis status post full and partial injections with Radiesse Voice injectable, severe malnutrition initially requiring nasogastric tube supplementation and later percutaneous endoscopic gastrostomy (PEG) tube placement, acute hypoxia requiring intubation and tracheostomy tube placement (removed), asthma, hypertension, acute kidney injury, status post inguinal herniorrhaphy, kidney stones status post lithotripsy, depression, left ankle open reduction and internal fixation, left wrist open reduction and internal fixation, bilateral heel spur removal, tracheostomy. STUDY FINDINGS: Patient participated in a Modified Barium Swallow (MBS) study on 05/21/2018. Dr. Nuñez was the radiologist present for this evaluation. This study was recorded in the lateral view and images were sent to PACs for storage. The following consistencies were presented to this patient for analysis of oropharyngeal swallow function: thin liquids, pudding, and a regular textured, Deborah Doone cookie. Results of the MBS are as follows: PENETRATION / ASPIRATION SCALE (CURRY): 1 = does not enter airway 2 = enters airway/above vocal folds/ejected 3 = enters airway/above vocal folds/not ejected 4 = enters airway/contacts vocal folds/ejected 5 = enters airway/contacts vocal folds/not ejected 6 = enters airway/below vocal folds/ejected 7 = enters airway/below vocal folds/not ejected despite effort 8 = enters airway/below vocal folds/no effort PENETRATION / ASPIRATION SCALE (SCORE): Thin liquid - 5 mL tsp.: 1 Thin liquids via cup (chin tuck): 1 Thin liquids via cup (chin tuck): 1 Thin liquids via cup (chin tuck): 1 Thin liquids via cup (single sip): 1 Thin liquids via cup (single sip): 1 Thin liquids via straw (single sip): 1 Thin liquids via straw (chin tuck): 1 Pudding via spoon: 1 Regular textured cookie: 1 Thin liquids via straw (chin tuck): 2 Thin liquids via straw (chin tuck): 1 Thin liquids via straw (chin tuck): 1 IMPRESSION: DIAGNOSIS: mild to moderate oropharyngeal dysphagia (R13.12) ORAL PHASE CHARACTERIZED BY: LABIAL SEAL: no labial escape TONGUE CONTROL DURING BOLUS MANIPULATION: posterior escape of greater than half of bolus BOLUS PREPARATION / MASTICATION: timely chewing and mashing; diffusely spread BOLUS TRANSPORT / LINGUAL MOTION: mild repetitive/disorganized tongue motions (undulations) ORAL RESIDUE: large residue collection on oral structures (lateral buccal cavity and lingual blade) with pureed and solid textures (cleared with liquid wash); trace residue lining oral structures with thin liquids PHARYNGEAL PHASE CHARACTERIZED BY: INITIATION OF PHARYNGEAL SWALLOW: bolus head at posterior laryngeal surface of epiglottis at first hyoid excursion SOFT PALATE ELEVATION: no bolus between soft palate and pharyngeal wall LARYNGEAL ELEVATION: partial superior movement of thyroid cartilage/partial approximation of arytenoids cartilage to epiglottic petiole ANTERIOR HYOID EXCURSION: partial anterior movement EPIGLOTTIC MOVEMENT: inconsistent epiglottic inversion LARYNGEAL VESTIBULE CLOSURE AT HEIGHT OF SWALLOW: complete laryngeal vestibule closure with no air/contrast in laryngeal vestibule PHARYNGEAL STRIPPING WAVE: pharyngeal stripping wave present / diminished PHARYNGOESOPHAGEAL SEGMENT OPENING: partial to minimal distension and partial duration; partial obstruction of flow TONGUE BASE RETRACTION: trace column of contrast between tongue base and posterior pharyngeal wall PHARYNGEAL RESIDUE: intermittent large collection of residue within or on pharyngeal structures (valleculae) with more viscous textures; small collections of residue within the pyriforms ESOPHAGEAL PHASE CHARACTERIZED BY: ESOPHAGEAL BOLUS CLEARANCE IN THE UPRIGHT POSITION: could not view EFFECTS OF TREATMENT STRATEGIES ATTEMPTED: Chin tuck posture = effective Double swallow = moderately effective Reduced bolus size = moderately effective Removal of straw = no discernible difference DIET TEXTURE RECOMMENDATIONS: Will recommend a regular-soft textured, thin liquid diet following session with the Patients home health speech-language pathologist. COMPENSATORY STRATEGIES RECOMMENDED: Distant supervision with setup assistance, chin tuck with slight anterior lean, reduced bolus volume, reduced rate of intake, liquid chaser / double swallow at reasonable intervals post solid / pureed ingestion, seated upright at 90 degrees during PO intake, remain upright for 30-60 minutes post meal (GERD precaution) INTERPRETATION OF RESULTS: Patient presents with mild to moderate oropharyngeal dysphagia (R13.12) secondary to a right middle cerebral artery cerebrovascular accident requiring decompressed right craniotomy complicated by vocal fold paralysis, with slight functional improvements noted in comparison to the 03/07/2018 study. Oral preparatory phase marked by improved mastication efficiency with slight munching quality with the bolus rather diffusely spread during mastication. Oral transport phase marked by suboptimal lingual control with consistent mild undulations particularly with more viscous textures; premature bolus loss of 10-50% of bolus collecting within the valleculae prior to deglutition; poor oral clearance particularly with solid textures (cleared with liquid wash); improved anterior bolus containment. Pharyngeal phase primarily marked by impaired (albeit improving) pharyngeal swallow onset timing resulting in suboptimal bolus location upon swallow onset (ameliorated with chin tuck posture); suboptimal pharyngeal clearance attributed to reduced posterior pharyngeal stripping wave action and poor pharyngoesophageal segment relaxation resulting in pharyngeal retention within the valleculae and pyriforms respectively; and impaired (albeit improving) closure of the airway during deglutition attributed to reduced hyolaryngeal excursion resulting in inconsistent epiglottic inversion with noted sufficient laryngeal vestibule pressure generated to expel penetrated material (one occasion). All deficits controlled with bolus viscosity and volume adjustments in addition to execution of the chin tuck posture. Continued hypophonia with reported persistent weak cough response suggestive of continued dystussia vs. atussia, along with persistent aphonia / dysphonia indicating continued vocal fold dysfunction. No aspiration noted during the current study, though the Patient does have a history of silent aspiration; proceed with caution. RECOMMENDATIONS: Cannot guarantee group home tolerance of thin liquids when considering the Patient s long and tortuous medical course throughout the year that has been complicated by aspiration related pneumonia; recommend proceeding with caution. The Patient is considered to be at higher risk of dysphagia exacerbation with concurrent medical complications or iatrogenic factors effecting cognition and / or ambulation, higher risk of pulmonary complications associated with aspiration with compromised immune system. Would recommend thorough training and strict adherence to recommended aspiration precautions, as the Patient is considered at high risk of aspiration related pulmonary complications due to the presence and extent of aspiration during prior sessions that was both overt (larger volumes) and silent (reduced volumes) in nature, presence of bilateral vocal fold palsy with limited responsiveness to injections, significance of dystussia vs. atussia, extent of neurological complications with cognitive deficits, left sided hemiplegia with the Patient functionally unable to ambulate or independently maintain upright seated positioning with aspiration consolidation also more likely to collect in the left lower lobes due to noted persistent left sided leaning. Provided Patient and family education regarding the importance of oral care to combat aspiration related pulmonary complications; would recommend an aggressive oral care program that includes pre-rinse use prior to water intake; routine oral care in the a.m., prior to oral intake, after oral intake, and prior to bed via toothbrush / swab / rinse; frequent dental checkups with a licensed dentist and dental hygienist. The Patient requires intensive skilled speech-language intervention targeting continued diet texture management; training and implementation of recommended compensatory strategies; training and implementation of recommended oropharyngeal strengthening exercises to facilitate improved labial control / strength, lingual control / strength, laryngeal vestibule closure / pressure, and pharyngeal motility; and training / implementation of a home oral care protocol to reduce the risk of aspiration related pulmonary complications. Recommend frequent temperature and fatigue checks post intake, particularly if intolerance is suspected, with recommendations to immediately consult with the Patients primarily care physician if the Patient is spiking a low grade fever (1.5 degrees above baseline approximately 2-3 hours post ingestion), or is demonstrating unexplained post intake fatigue. ADDITIONAL COMMENTS/RECOMMENDATIONS: Results and recommendations were discussed with the Patient and Patients family immediately following MBS completion, with the Patient verbalizing understanding and agreement with all recommendations and education provided. IMAGE COUNT: [id number] G-CODES: SWALLOWING G8996 Current Status: CJ SWALLOWING G8997 Goal Status: CI SWALLOWING G8998 Discharge Status: SEE Ye M.A., CCC-SERGER [facility] Speech-Language Pathology Department [email or web address] 05/21/18 5258 <Electronically signed by Leonard Ye M.A., CFY-SERGER> Date Leonard Ye M.A. CFY-SERGER Co-Signature Required for all Medicare patients Date/Time Co-Signature CC: SWALLOWING FUNCTION Observed: 05/21/2018 Status: F Source: [place] W/VIDEO 12:[address] [facility] REPOSITORY [facility] Imaging Services [address] [address] Swallowing Function w/Video MR#: [id number] Acct: [id number] Name: JOSE GUSTAFSON Jr. Rep #: [id number] : 1965 M 52 From: Beck Nuñez MD PCP: Kaykay Beth MD Status: REG CLI Study: Swallowing Function w/Video Date of Exam: 05/21/18 Exam# [id number] Ordering Dr: Kaykay Beth MD STUDY: SWALLOWING STUDY REASON FOR EXAM: Male, 52 years old. Dysphagia. Vocal cord paralysis. TECHNIQUE: The examination was performed with Speech Pathology in attendance. Under fluoroscopic observation, the patient ingested thin barium, thick barium, barium pudding, and barium coated cracker. FLUOROSCOPY TIME: 2:26 minutes/seconds. 2088 fluoroscopic images were obtained. RADIOLOGIST INVOLVEMENT: Radiologist was present and providing direct supervision. COMPARISON: Comparison is made with prior study dated March 07, 2018. FINDINGS: The following was observed during swallowing of the various mixtures of barium: Thin Barium: There was no evidence of aspiration or laryngeal penetration. Barium Pudding: There was no evidence of aspiration or laryngeal penetration. Barium Coated Cracker: There was no evidence of aspiration or laryngeal penetration. RAD/Swallowing Function w/Video IMPRESSION: Normal tailored barium swallow study. No evidence of increased risk for aspiration. The swallow study findings were discussed with the patient by the speech pathologist at the conclusion of the examination. Please see speech pathology report for more information and recommendations. Electronically Signed: Beck Nuñez MD at 15:31 EDT Tel [phone], Service support , CC: Kaykay Beth MD Silver Wrapper: Signed CONSULTATION Observed: 04/20/2018 Status: F Source: [place] 4:[address] [facility] REPOSITORY [facility] Medical Records Department [address] [place] [address] Consultation 04/11/18 1149 MR#: [id number] Acct: [id number] Name: JOSE GUSTAFSON Jr. Rep #: [id number] : 1965 52 From: Gilda Downing MD PCP: Kaykay Beth MD Status: DIS IN Y Location: [place] [address] Problem List (1) Stroke Status: Acute (2) BRBPR (bright red blood per rectum) Status: Acute Reason for Consult Date of Consultation: 04/11/18 Reason for Consultation: H/O stroke, on ASA with GI bleed/Bright red blood per rectum History of Present Illness: The patient is a 52 year old CM was admitted to [facility] on 10/07/17 with aortic dissection, post surgery course was complicated by Right MCA stroke, s/p craniectomy on 10/10/17, vocal cord paralysis S/P Botox injections by ENT, seizure d/o on Keppra and Vimpat (had 2 episodes of seizures per following his aortic dissection and stroke), had prolonged hospital course, discharged to [facility] for about 2 weeks, then had respiratory failure needing intubation on 01/17/18, was later discharged to TCU on 02/07/18, had PEG placed on 02/13/18, was readmitted to [facility] on 02/26/18 for cranioplasty, and then was admitted to [facility] IP [facility] 03/06/18 for > 3 hrs therapy daily, had repeat CT head done 03/14/18 while in the IP RU prior to starting ASA post surgery, and the CT head showed 13 mm midline shift, so was transferred back to [facility], where he was managed conservatively and was readmitted to [facility] IP RU on 03/18/18, where patient was tolerating therapies, but while in the rehab unit he developed some rectal bleeding on 04/09/18 which was thought to be due to hemorrhoids, received anusol for hemorrhoids per hospitalist recommendation, Lovenox was held on hospitalist recommendation, then yesterday (04/10/18) night patient developed progressively worsening bright red bleeding per rectum and he was transferred to PCU (acute care), ASA was held. Neurology has been consulted since patient has GI bleed, was on ASA for secondary stroke prevention. At present patient denies any BACON, visual disturbances, new onset focal motor weakness, sensory loss or speech disturbances. Patient continues to have residual right sided hemiparesis from the chronic right MCA stroke. [] Past Medical History Past Medical History (Chronic Problems): Chronic Problems (This Medical Record has been edited. Action required.) Kidney stones (Chronic) Hypertension (Chronic) Asthma (Chronic) Depression (Chronic) Allergies cat dander Allergy (Verified 02/07/18 17:19) Unknown grass pollen Allergy (Verified 02/07/18 17:19) Itching Home Medications: Ambulatory Orders Medication Instructions Recorded Acetylcysteine [Mucomyst] 400 mg INHALATION Q6H.RT PRN 02/26/18 Ipratropium/Albuterol Sulfate 3 ml INHALATION Q4H.RT PRN 02/26/18 Surgical History: herniorrhaphy - Inguinal., - - Aortic dissection repair 10/07/2017, Craniotomy 10/13/2017, Lithotripsy, Left ankle ORIF, Left wrist ORIF, Bilateral heel spur removal, Traceostomy. Psychiatric History: Anxiety, Depression Lives: Spouse/ Significant Other Smoking Status: Former smoker Alcohol: None Drugs: None - *Family History Maternal History Items: No pertinent history Paternal History Items: No pertinent history Review of Systems Constitutional: Reports: - - complete ROS negative except as documented in HPI Patient Problems: Active and Suspected Problems (This Medical Record has been edited. Action required.) BRBPR (bright red blood per rectum) (Acute) Cystitis (Acute) Stroke (Acute) - Physical Exam General: Alert HEENT: Normocephalic Neck: Supple Lungs: Normal air movement Cardiovascular: Normal S1, Normal S2 Abdomen: Bowel Sounds Present Extremities: No cyanosis Musculoskeletal: No Tenderness to Palpation of Joints or Extremities Neurological: - - consious, alert, AOA x3, CN 2-12 grossly normal with no acute changes, pupils BERL, Power 5/5 right UE/LE, 1/5 left UE/LE, sensory loss to light touch on the left side, no cerebellar signs on the right side, Reflexes + B/L B/S/T/K/A, increase tone/spasticity left UE/LE, gait deferred. Psych/Mental Status: Normal Affect Vital Signs Temp Pulse Resp BP Pulse Ox 98.8 F 74 16 142/90 H 100 04/11/18 09:48 04/11/18 09:52 04/11/18 09:48 04/11/18 09:48 04/11/18 09:48 Oxygen Delivery Method Room Air Weight: 61.9 kg Body Mass Index (BMI) 18.5 Intake and Output for Last 24 Hours Intake Total 1480 / 1480 Output Total 1075 / 1075 Balance 405 / 405 Laboratory Tests Past 24 Hrs Assessment/Plan All Active Problems (This Medical Record has been edited. Action required.) Aortic dissection (Acute) Acute right MCA stroke (Acute) Left hemiplegia (Acute) Acute kidney injury (Acute) Seizure disorder (Acute) Dysphagia (Acute) Vocal cord paralysis (Acute) Dysphagia (Acute) BRBPR (bright red blood per rectum) (Acute) Cystitis (Acute) Stroke (Acute) The patient is a 52 year old CM was admitted to [facility] on 10/07/17 with aortic dissection, post surgery course was complicated by Right MCA stroke, s/p craniectomy on 10/10/17, vocal cord paralysis S/P Botox injections by ENT, seizure d/o on Keppra and Vimpat (had 2 episodes of seizures per following his aortic dissection and stroke), had prolonged hospital course, discharged to [facility] for about 2 weeks, then had respiratory failure needing intubation on 01/17/18, was later discharged to TCU on 02/07/18, had PEG placed on 02/13/18, was readmitted to [facility] on 02/26/18 for cranioplasty, and then was admitted to [facility] IP RU 03/06/18 for > 3 hrs therapy daily, had repeat CT head done 03/14/18 while in the IP RU prior to starting ASA post surgery, and the CT head showed 13 mm midline shift, so was transferred back to [facility], where he was managed conservatively and was readmitted to [facility] IP RU on 03/18/18, where patient was tolerating therapies, but while in the rehab unit he developed some rectal bleeding on 04/09/18 which was thought to be due to hemorrhoids, received anusol for hemorrhoids per hospitalist recommendation, Lovenox was held on hospitalist recommendation, then yesterday (04/10/18) night patient developed progressively worsening bright red bleeding per rectum and he was transferred to PCU (acute care), ASA was held. Neurology has been consulted since patient has GI bleed, was on ASA for secondary stroke prevention. At present patient denies any BACON, visual disturbances, new onset focal motor weakness, sensory loss or speech disturbances. Patient continues to have residual right sided hemiparesis from the chronic right MCA stroke. [] Impression H/O right MCA stroke-complication after aortic dissection surgery Acute and worsening rectal bleeding Plan -Neurology has been consulted since patient has h/o right MCA stroke in September 2017, is on ASA and had recent acute rectal bleeding, due to which ASA was held. Given the worsening per rectal bleeding, ASA can be held at present till he is evaluated by GI/or General surgery and has EGD/Colonoscopy, will defer further restarting of ASA to GI/General surgery/hospitalist evaluation and recommendation. -CT abdomen reported to show constipation with fecal impaction and rectal colitis. -Continue Protonix -GI/DVT prophylaxis -He was in the process of weaning off Vimpat while in the IP Rehab unit but would continue Keppra 1000 mg BID and Vimpat 100 mg BID at present till the current acute GI issues are being evaluated and managed -Fall precautions -Stroke risk factors discussed and stroke education provided -Further medical management per primary team -Please call with questions if any -Thank you for allowing us to participate in patient's care and management I spent 60 minutest taking history, doing physical examination, reviewing medical records, coordinating care and counseling the patient. Code Visit Inpatient E AND M: 61228 Init Hosp L3 04/20/18 7575 <Electronically signed by Gilda Downing MD> Date Gilda Downing MD Cosigner Signature (if applicable): Date CC: Tawnya Downing MD; Glory Shelton MD; Kaykay Beth MD Signed DISCHARGE SUMMARY Observed: 04/20/2018 Status: F Source: [place] 8:[address] [facility] REPOSITORY [facility] Medical Records Department [address] [place] [address] Discharge Summary 04/18/18 1652 MR#: [id number] Acct: [id number] Name: JOSE GUSTAFSON Jr. Rep #: [id number] : 1965 52 From: Stacey QUINTANILLAC PCP: Kaykay Beth MD Status: DIS IN Y Location: [place] [address] Rehab Discharge Summary DATE OF ADMISSION: 04/15/18 DATE OF DISCHARGE: 04/18/18 - Rehab Diagnosis CVA Discharge Diet: - - Mechanical soft Largo thicken liquids Discharge Activity: May Not Drive, May Shower, May Take a Tub Bath, Use Walker Weight Bearing Status: Weight bearing as tolerated Call your doctor if you observe: Fever of 101 or Higher, Coldness, Increased Pain, Numbness or Tingling, Change in Color, Inability to urinate, Inability to have a bowel movement, Using more than one pad per hour, Shortness of breath, Dizziness, Fainting spells, Swelling in the ankles, Chest pain, Prolonged hiccoughing, Increased palpitations (irregular heartbeat), Calf discomfort, Uncontrolled pain Home Medications: Medications to take at Discharge Loratadine [Claritin] 10 mg PO DAILY 03/06/18 Amoxicillin [Amoxil] 500 mg PO Q8H 04/11/18 Acetaminophen [Tylenol Tablet] 650 mg PO Q6H PRN PRN tablet 04/18/18 Baclofen [Lioresal] 10 mg PO TID #180 tab 04/18/18 Ensure Enlive 120 ml PO 4X/DAY liquid 04/18/18 Hydrocortisone [Anusol Hc] 25 mg RECTAL BID PRN PRN #14 suppos. 04/18/18 Lacosamide [Vimpat] 50 mg PO DAILY #4 tab 04/18/18 Methocarbamol [Robaxin-750] 750 mg PO TID PRN #180 tab 04/18/18 Metoprolol Tartrate [Lopressor (beta john)] 25 mg PO BID #180 tab 04/18/18 Oxycodone [Oxyir] 5 mg PO Q6H PRN PRN 6 Days #27 tab 04/18/18 Pantoprazole Sodium [Protonix] 40 mg PO DAILY #90 tab 04/18/18 Tamsulosin HCl [Flomax] 0.4 mg PO DAILY #90 cap 04/18/18 Venlafaxine HCl [Effexor] 75 mg PO BID #180 tab 04/18/18 busPIRone [Buspar] 5 mg PO DAILY #7 tab 04/18/18 levETIRAcetam tablet [Keppra tablet] 1,000 mg PO BID #180 tab 04/18/18 levETIRAcetam tablet [Keppra tablet] 250 mg PO BID #180 tab 04/18/18 Following Prescrptions Were Given to Patient: Oxycodone [Oxyir] 5 mg PO Q6H PRN PRN 6 Days #27 tab PRN Reason: Severe Pain (-05/07) busPIRone [Buspar] 5 mg PO DAILY #7 tab Hydrocortisone [Anusol Hc] 25 mg RECTAL BID PRN PRN #14 suppos. PRN Reason: hemorrhoids Lacosamide [Vimpat] 50 mg PO DAILY #4 tab Pantoprazole Sodium [Protonix] 40 mg PO DAILY #90 tab Tamsulosin HCl [Flomax] 0.4 mg PO DAILY #90 cap levETIRAcetam tablet [Keppra tablet] 1,000 mg PO BID #180 tab levETIRAcetam tablet [Keppra tablet] 250 mg PO BID #180 tab Metoprolol Tartrate [Lopressor (beta john)] 25 mg PO BID #180 tab Venlafaxine HCl [Effexor] 75 mg PO BID #180 tab Baclofen [Lioresal] 10 mg PO TID #180 tab Methocarbamol [Robaxin-750] 750 mg PO TID PRN #180 tab PRN Reason: Muscle Spasm Primary Care Physician: Kaykay Beth MD [Primary Care Provider] - Please Follow Up With: Dr. Beth Please Follow Up With: [facility] Disposition: Home with Home Health Minutes spent on discharge:: 40 Patient Condition:: Good Rehab Course The patient is a 52 year old M who is readmitted to the rehab unit, while in the rehab unit he developed some rectal bleeding on 04/09/18 which was thought to be due to hemorrhoids, received Anusol for hemorrhoids per hospitalist, Lovenox was held, then on (04/10/18) night patient developed progressively worsening bright red bleeding per rectum and he was transferred to PCU (acute care), ASA was held. See discharge summary from 04/10/18 below. He now presents back to the rehab unit for further rehabilitation and family training so that he can return home. Denies any GI or complaints. At present patient denies any BACON, visual disturbances, new onset focal motor weakness, sensory loss or speech disturbances. Patient continues to have residual right sided hemiparesis from the chronic right MCA stroke. The patient is a 52 year old male with recent complicated past medical history including aortic dissection for which patient underwent surgery at [facility] which was complicated by a right MCA stroke in September 2017 status post decompressive craniectomy in September 2017 followed by vocal cord paralysis managed by ENT and subsequently had pneumonia and respiratory failure resulting into intubation in December 2017 and was discharged to TCU on 02/07/2018. Patient had PEG tube placement on 02/13/2018 and then was readmitted to [facility] on 03/17/2013 for cranioplasty and subsequently transferred to the inpatient rehab unit. Patient was noted to have, CT findings on 03/14/2018. He was transferred to [facility] as a result of midline shift and large right-sided subdural pneumocephalus. Patient was monitored in the neuro intensive care unit and transferred back to the inpatient rehab unit on 03/18/2018. While at the inpatient unit patient was noted to have constipation and received enemas. He was noted to have rectal bleeding and received Anusol for hemorrhoids. His Lovenox was discontinued because of the rectal bleeding. Patient, was noted to have progressively worsening bright rectal bleeding per rectum so he was transferred to the acute care for further management. Before the transfer NSS bolus and infusion was ordered. His aspirin was discontinued and his Protonix regimen escalated. General surgeon was consulted and they will follow. With Physical therapy, he is contact guard to minimal assist for transfers. He is able to walk in the parallel bars several time about 40 feet. He is able to walk with the Karen-walker for about 12 feet with moderate assistance. With Occupational therapy, he is minimal assist for upper body grooming, he is setup and minimal assist with shaving and brushing his teeth. He still requires maximal assist for getting his pants up and managing his urinal. With Speech therapy, he is on a mechanical soft diet with nectar thicken liquids. He is doing well on the thin liquid trials, he remembers to tuck his chin doing trials. They are continue work on his attention to task and his impulsiveness. With Nursing he is Max assist for toileting.Family training was on 04/16 training went well. The plan is for discharge on Saturday with at home Physical therapy, Occupational therapy and Speech therapy with a home health aid. He will return next week for Botox injections for Spasticity in his right arm, with [facility]. Meaningful Use Info Meaningful Use Diagnoses (Choose all that apply): None applicable 04/18/18 1658 <Electronically signed by Stacey QUINTANILLAC> Date Stacey Diamond MULTIMEDIA AUTHOREnriqueC 04/20/18 0850<Electronically signed by David Durant MD> Cosigner Signature (if applicable): Date David Durant MD CC: DAGO Diamond; Kaykay Beth MD; David Durant MD Signed DISCHARGE SUMMARY Observed: 04/19/2018 Status: F Source: [place] 2:[address] [facility] REPOSITORY [facility] Medical Records Department [address] [place] [address] Discharge Summary 04/15/18 0933 MR#: [id number] Acct: [id number] Name: JOSE GUSTAFSON Rep #: [id number] : 1965 52 From: Maria Esther Alvarez MD PCP: Kaykay Beth MD Status: DIS IN Y [id number] Discharge Date and Diagnosis Date of Admission: 04/11/18 Date of Discharge: 04/15/18 - Primary Discharge Diagnosis Active and Suspected Problems (This Medical Record has been edited. Action required.) BRBPR (bright red blood per rectum) (Acute) Diverticular bleed Cystitis (Acute), VRE Recent Stroke (Acute) Debility - Secondary Discharge Diagnosis Chronic Problems (This Medical Record has been edited. Action required.) Kidney stones (Chronic) Hypertension (Chronic) Asthma (Chronic) Depression (Chronic) Hospital Course and Treatment Imaging Results: Clinical Impression(s) from Imaging Studies Abdomen/Pelvis CT 04/10/18 22:17 IMPRESSION: CONSTIPATION with fecal impaction causing a colitis in the rectal vault. Electronically Signed: Dayday Welch MD at 22:57 EDT , Service support , Neurology General surgery Operations: None Procedures: Colonoscopy, EGD Summary of Care Provided: 52-year-old male with past medical history of aortic dissection with surgical repair on 10/07/2017 with subsequent right MCA stroke, status post decompressive craniotomy, with vocal cord paralysis. His healthcare course has been complicated by pneumonia and respiratory failure requiring intubation, PEG tube placement status post cranioplasty on 02/28/2018. He has subsequently been in subacute care and inpatient rehab. He was transferred to the [facility] with abnormal CT finding of midline shift and large right-sided subdural pneumocephalus. He was discharged back to the inpatient rehab and admitted to the hospital on 04/10/2018 with rectal bleeding after episodes of constipation. During his hospital stay, he had colonoscopy by general surgery that showed no significant findings; his acute GI bleed necessitating admission was believed to be due to diverticular bleed. His hemoglobin remained stable. He was kept off aspirin for 1 week. He would need to be resumed on aspirin after that. He was seen by physical therapy and upon discussion with the family, patient was discharged to acute inpatient rehab for further therapy as he did not complete it prior to discharge. Other management in the hospital was as follows: Recent VRE cystitis, on amoxicillin started on 04/07/2018, stop date of 04/21/2018 Aortic dissection, status post repair, to follow-up in the [facility] Department Seizure disorder, on Keppra and Vimpat History of vocal cord paralysis, speech therapy following, be followed in inpatient rehab Anxiety/depression, on Effexor and Seroquel Discharge Diet: Low fat/ Low Cholesterol, 2000 mg Sodium Diet Discharge Activity: Return to Normal Activity Home Medications: Medications to take at Discharge Loratadine [Claritin] 10 mg PO DAILY 03/06/18 Amoxicillin [Amoxil] 500 mg PO Q8H 04/11/18 Acetaminophen [Tylenol Tablet] 650 mg PO Q6H PRN PRN tablet 04/18/18 Baclofen [Lioresal] 10 mg PO TID #180 tab 04/18/18 Ensure Enlive 120 ml PO 4X/DAY liquid 04/18/18 Hydrocortisone [Anusol Hc] 25 mg RECTAL BID PRN PRN #14 suppos. 04/18/18 Lacosamide [Vimpat] 50 mg PO DAILY #4 tab 04/18/18 Methocarbamol [Robaxin-750] 750 mg PO TID PRN #180 tab 04/18/18 Metoprolol Tartrate [Lopressor (beta john)] 25 mg PO BID #180 tab 04/18/18 Oxycodone [Oxyir] 5 mg PO Q6H PRN PRN 6 Days #27 tab 04/18/18 Pantoprazole Sodium [Protonix] 40 mg PO DAILY #90 tab 04/18/18 Tamsulosin HCl [Flomax] 0.4 mg PO DAILY #90 cap 04/18/18 Venlafaxine HCl [Effexor] 75 mg PO BID #180 tab 04/18/18 busPIRone [Buspar] 5 mg PO DAILY #7 tab 04/18/18 levETIRAcetam tablet [Keppra tablet] 1,000 mg PO BID #180 tab 04/18/18 levETIRAcetam tablet [Keppra tablet] 250 mg PO BID #180 tab 04/18/18 Primary Care Physician: Kaykay Beth MD [Primary Care Provider] - Please follow up with your Primary Care Physician in: within 2 weeks of discharge Disposition: Inpt Rehab Unit/Facility Minutes spent on discharge:: 40 Patient Condition:: Stable Medical Necessity - Tobacco Use Smoking Status: Former smoker Tobacco Use: Non-smoker Meaningful Use Info Meaningful Use Diagnoses (Choose all that apply): None applicable Code Visit Inpatient E AND M: [id number] Disch Hosp 04/19/189 <Electronically signed by Maria Esther Alvarez MD> Date Maria Esther Alvarez MD Cosigner Signature (if applicable): Date CC: Maria Esther Alvarez MD; Kaykay Beth MD Signed DISCHARGE INSTRUCTION Observed: 04/18/2018 Status: F Source: [place] 4:[address] [facility] REPOSITORY [facility] Medical Records Department [address] [place] [id number] Instructions for Home/Discharge Instructions 04/18/18 1454 MR#: [id number] Acct: [id number] Name: JOSE GUSTAFSON Juan Escobar Rep #: [id number] : 1965 52 From: Stacey Diamond MULTIMEDIA AUTHOR-C PCP: Kaykay Beth MD Status: ADM IN - Discharge Diagnoses Reason(s) for Visit for Discharge Instructions: CVA You will use the following diet at home:: Regular Your food should be the consistency of: Mechanical soft (ground) Your liquids should be the consistency of: Largo Thick Discharge Activity: May Not Drive, May Shower, May Take a Tub Bath, Use Walker Weight Bearing Status: Weight bearing as tolerated Call your doctor if you observe: Fever of 101 or Higher, Coldness, Increased Pain, Numbness or Tingling, Change in Color, Inability to urinate, Inability to have a bowel movement, Using more than one pad per hour, Shortness of breath, Dizziness, Fainting spells, Swelling in the ankles, Chest pain, Prolonged hiccoughing, Increased palpitations (irregular heartbeat), Calf discomfort, Uncontrolled pain Allergies/Adverse Reactions: Allergies cat dander Allergy (Verified 04/15/18 11:27) Unknown grass pollen Allergy (Verified 04/15/18 11:27) Itching Medications to take at Discharge Loratadine [Claritin] 10 mg PO DAILY 03/06/18 Amoxicillin [Amoxil] 500 mg PO Q8H 04/11/18 Acetaminophen [Tylenol Tablet] 650 mg PO Q6H PRN PRN tablet 04/18/18 Baclofen [Lioresal] 10 mg PO TID #180 tab 04/18/18 Ensure Enlive 120 ml PO 4X/DAY liquid 04/18/18 Hydrocortisone [Anusol Hc] 25 mg RECTAL BID PRN PRN #14 suppos. 04/18/18 Lacosamide [Vimpat] 50 mg PO DAILY #4 tab 04/18/18 Methocarbamol [Robaxin-750] 750 mg PO TID PRN #180 tab 04/18/18 Metoprolol Tartrate [Lopressor (beta john)] 25 mg PO BID #180 tab 04/18/18 Oxycodone [Oxyir] 5 mg PO Q6H PRN PRN 6 Days #27 tab 04/18/18 Pantoprazole Sodium [Protonix] 40 mg PO DAILY #90 tab 04/18/18 Tamsulosin HCl [Flomax] 0.4 mg PO DAILY #90 cap 04/18/18 Venlafaxine HCl [Effexor] 75 mg PO BID #180 tab 04/18/18 busPIRone [Buspar] 5 mg PO DAILY #7 tab 04/18/18 levETIRAcetam tablet [Keppra tablet] 1,000 mg PO BID #180 tab 04/18/18 levETIRAcetam tablet [Keppra tablet] 250 mg PO BID #180 tab 04/18/18 The following prescriptions were given: Oxycodone [Oxyir] 5 mg PO Q6H PRN PRN 6 Days #27 tab PRN Reason: Severe Pain (6-10) busPIRone [Buspar] 5 mg PO DAILY #7 tab Hydrocortisone [Anusol Hc] 25 mg RECTAL BID PRN PRN #14 suppos. PRN Reason: hemorrhoids Lacosamide [Vimpat] 50 mg PO DAILY #4 tab Pantoprazole Sodium [Protonix] 40 mg PO DAILY #90 tab Tamsulosin HCl [Flomax] 0.4 mg PO DAILY #90 cap levETIRAcetam tablet [Keppra tablet] 1,000 mg PO BID #180 tab levETIRAcetam tablet [Keppra tablet] 250 mg PO BID #180 tab Metoprolol Tartrate [Lopressor (beta john)] 25 mg PO BID #180 tab Venlafaxine HCl [Effexor] 75 mg PO BID #180 tab Baclofen [Lioresal] 10 mg PO TID #180 tab Methocarbamol [Robaxin-750] 750 mg PO TID PRN #180 tab PRN Reason: Muscle Spasm Primary Care Physician: Kaykay Beth MD [Primary Care Provider] - Test Results: Test results from this visit will be discussed in further detail at your follow-up appointment, if applicable. Please Follow Up With: Dr. Beth Please Follow Up With: [facility] Proposed Discharge Date: 04/19/18 04/18/181651 <Electronically signed by Stacey FERNANDES> Date Stacey FERNANDES CC: Maria Esther Alvarez MD; Kaykay Beth MD H AND P W/ COSIGN Observed: 04/17/2018 Status: F Source: [place] 10:59 [facility] REPOSITORY [facility] Medical Records Department [facility] [place] [address] H AND P w/ Cosign 04/15/18 1528 MR#: [id number] Acct: [id number] Name: JOSE GUSTAFSON Jr. Rep #: [id number] : 1965 52 From: Stacey FERNANDES PCP: Kaykay Beth MD Status: ADM IN Location: [place] [address] History of Present Illness Date of Admission: 04/15/18 Chief Complaint: Debility The patient is a 52 year old M who is readmitted to the rehab unit, while in the rehab unit he developed some rectal bleeding on 04/09/18 which was thought to be due to hemorrhoids, received Anusol for hemorrhoids per hospitalist, Lovenox was held, then on (04/10/18) night patient developed progressively worsening bright red bleeding per rectum and he was transferred to PCU (acute care), ASA was held. See discharge summary from 04/10/18 below. He now presents back to the rehab unit for further rehabilitation and family training so that he can return home. Denies any GI or complaints. At present patient denies any BACON, visual disturbances, new onset focal motor weakness, sensory loss or speech disturbances. Patient continues to have residual right sided hemiparesis from the chronic right MCA stroke. The patient is a 52 year old male with recent complicated past medical history including aortic dissection for which patient underwent surgery at [facility] which was complicated by a right MCA stroke in September 2017 status post decompressive craniectomy in September 2017 followed by vocal cord paralysis managed by ENT and subsequently had pneumonia and respiratory failure resulting into intubation in December 2017 and was discharged to TCU on 02/07/2018. Patient had PEG tube placement on 02/13/2018 and then was readmitted to [facility] on 03/17/2013 for cranioplasty and subsequently transferred to the inpatient rehab unit. Patient was noted to have, CT findings on 03/14/2018. He was transferred to [facility] as a result of midline shift and large right-sided subdural pneumocephalus. Patient was monitored in the neuro intensive care unit and transferred back to the inpatient rehab unit on 03/18/2018. While at the inpatient unit patient was noted to have constipation and received enemas. He was noted to have rectal bleeding and received Anusol for hemorrhoids. His Lovenox was discontinued because of the rectal bleeding. Patient, was noted to have progressively worsening bright rectal bleeding per rectum so he was transferred to the acute care for further management. Before the transfer NSS bolus and infusion was ordered. His aspirin was discontinued and his Protonix regimen escalated. General surgeon was consulted and they will follow. Past Medical History Past Medical History (Chronic Problems): Chronic Problems (This Medical Record has been edited. Action required.) Kidney stones (Chronic) Hypertension (Chronic) Asthma (Chronic) Depression (Chronic) Allergies cat dander Allergy (Verified 04/15/18 11:27) Unknown grass pollen Allergy (Verified 04/15/18 11:27) Itching Home Medications: Ambulatory Orders Medication Instructions Recorded Acetylcysteine [Mucomyst] 400 mg INHALATION Q6H.RT PRN 02/26/18 Surgical History: herniorrhaphy - Inguinal., - - Aortic dissection repair 10/07/2017, Craniotomy 10/13/2017, Lithotripsy, Left ankle ORIF, Left wrist ORIF, Bilateral heel spur removal, Traceostomy. Psychiatric History: Anxiety, Depression Smoking Status: Former smoker - *Family History Maternal History Items: No pertinent history Paternal History Items: No pertinent history Review of Systems Constitutional: Denies: Chills, Fever, Weight Change HEENT: Denies: Head Aches, Sinus Congestion, Sinus Drainage Cardiovascular: Denies: Chest Pain, Palpitations Respiratory: Denies: Cough, Shortness of breath at rest, Sputum production Gastrointestinal: Denies: Abdominal Pain, Nausea, Vomiting Genitourinary: Denies: Dysuria Musculoskeletal: Denies: Joint Pain, Joint Tenderness Skin: Denies: Rash, Wounds Neurological: Denies: Numbness, Tingling, Focal weakness Psychiatric: Denies: Anxiety, Depression, Homicidal Ideations, Suicidal Ideations Hematologic/ Lymphatic: Denies: Easy Bruising, Easy Bleeding VTE Information - Inpt Only VTE Present on Admission: No VTE Mechan Device Prophylaxis: SCD's, Knee High SYLVIA Hose VTE Pharm Prophylaxis ordered?: Yes - Physical Exam General: Alert, Oriented x3, Cooperative HEENT: Atraumatic, PERRLA, EOMI, Normocephalic Neck: Supple, No JVD, Negative Carotid Bruits Lungs: Clear to auscultation, Normal air movement Cardiovascular: Regular rate, No murmurs Abdomen: Bowel Sounds Present, Soft, Non Tender Extremities: No edema, Capillary Refill Less than 3 Seconds Skin: No rashes, No breakdown Musculoskeletal: No Tenderness to Palpation of Joints or Extremities Neurological: Cranial nerves II-XII grossly intact, - - Left- sided spasticity and contracture and hemiparesis. Speech is low volume and soft. Psych/Mental Status: Normal Affect, Appropriate, Alert and oriented to time, place, person, mood and affect Vital Signs Temp Pulse Resp BP Pulse Ox 97.8 F 65 18 100/66 96 04/15/18 11:04 04/15/18 11:04 04/15/18 11:04 04/15/18 11:04 04/15/18 11:04 Oxygen Delivery Method Room Air Weight: 61.2 kg Body Mass Index (BMI) 18.3 Intake and Output for Last 24 Hours Intake Total 220 / 220 Balance 220 / 220 Active Medications Acetaminophen (Tylenol) 650 mg PO Q6H PRN PRN PRN Reason: Mild Pain (0-3/10)/Headache Acetylcysteine (Mucomyst) 400 mg INHALATION Q6H.RT PRN PRN Reason: sob/wheezing Albuterol/Ipratropium (Duoneb) 3 ml INHALATION Q4H.RT PRN PRN Reason: SOB AND /OR WHEEZING Amoxicillin (Amoxil) 500 mg PO Q8H [facility] Baclofen (Lioresal) 10 mg PO TID [facility] Bisacodyl (Dulcolax) 10 mg RECTAL .PRN X 1 PRN PRN Reason: Constipation Buspirone HCl (Buspar) 10 mg PO BID [facility] Calamine/Phenol (Calmoseptine Ointment) 1 applic TOPICAL 0600,2200 [facility] PRN Reason: Protocol Hydrocortisone Acetate (Anusol Hc) 25 mg RECTAL BID PRN PRN PRN Reason: hemorrhoids Lacosamide (Vimpat) 50 mg PO BID [facility] Levetiracetam (Keppra Tablet) 1,000 mg PO BID [facility] Lidocaine (Lidoderm Patch) 1 patch TOPICAL DAILY [facility] PRN Reason: Protocol Loratadine (Claritin) 10 mg PO DAILY [facility] Magnesium Hydroxide (Milk Of Magnesia) 30 ml PO .PRN X 1 PRN PRN Reason: Constipation Melatonin (Melatonin) 3 mg PO QHS [facility] Methocarbamol (Methocarbamol) 750 mg PO TID PRN PRN Reason: MUSCLE SPASM Metoprolol Tartrate (Lopressor (Beta John)) 25 mg PO BID [facility] Nutritional Formula (Lactose Free) (Ensure Enlive) 120 ml PO 4X/DAY [facility] Ondansetron HCl (Zofran) 8 mg PO Q8H PRN PRN PRN Reason: NAUSEA Oxycodone HCl (Oxyir) 5 mg PO Q6H PRN PRN PRN Reason: SEVERE PAIN (6-10/10) Pantoprazole Sodium (Protonix) 40 mg PO DAILY [facility] Polyethylene Glycol (Miralax) 17 gm PO DAILY PRN PRN Reason: Constipation Quetiapine Fumarate (Seroquel) 12.5 mg PO QHS [facility] Senna/Docusate Sodium (Senokot-S, Daija-Colace) 2 tablet PO BID [facility] Tamsulosin HCl (Flomax) 0.4 mg PO DAILY@1730 [facility] Venlafaxine HCl (Effexor) 75 mg PO BID [facility] Assessment/Plan All Active Problems (This Medical Record has been edited. Action required.) Aortic dissection (Acute) Acute right MCA stroke (Acute) Left hemiplegia (Acute) Acute kidney injury (Acute) Seizure disorder (Acute) Dysphagia (Acute) Vocal cord paralysis (Acute) Dysphagia (Acute) BRBPR (bright red blood per rectum) (Acute) Cystitis (Acute) Stroke (Acute) Debility due to pain, complex hospitalization including due to aneurysm of his aorta requiring a decompressive craniotomy, initially recovered but had a large right sided subdural hematoma which has remained stable and has not required further craniotomy or intervention. Now presents back to the rehab unit for rehabilitation so that he can return home. Plan: - Physical therapy for gait and balance - Occupational Therapy for ADLs - Speech therapy for a aphasia and dysphasia - As needed analgesics - Bowel protocol - DVT prophylaxis: SCDs and Sylvia Hoses - Seizure prophylaxis with Keppra and Vimpat decrease dose to 50mg BID x 3 days then 50 mg Daily then d/c - PEG tube: Await speech therapy recommendations but if he is taking 100% of his p.o. intake we will hold his tube feeds. 03/20: No longer receiving any tube feeds. 03/21: Consider removing PEG tube in a few weeks if it is no longer in use. - Frequency, and urgency on urination => UA was positive for bacteria, => Acute cystitis with VRE patient on amoxicillin based on culture results; placed in isolation - Urine retention Flomax 0.4mg - Begin titrating Vimpat from 100mg BID, to 50mg BID x 3days then daily for 3 days then off, Buspar 10mg BID to 5mg BID x 3 days, the 5mg daily x 3 days and then stop medication. D/C Seroquel 12.5mg at HS on discharge. - Hold Lovenox and ASA 2/2 rectal bleeding 04/16/18 1413 <Electronically signed by Stacey QUINTANILLAC> Date Stacey Diamond MULTIMEDIA AUTHOR-C 04/17/18 1059<Electronically signed by David Durant MD> Sil Signature (if applicable): Date David Durant MD CC: DAGO Diamond; Kaykay Beth MD; David Durant MD Signed SHOULDER MIN 2 VIEWS Observed: 04/15/2018 Status: F Source: [place] 11:[address] [facility] REPOSITORY [facility] Imaging Services [address] [place] [address] Shoulder min 2 Views MR#: [id number] Acct: [id number] Name: JOSE GUSTAFSON Jr. Rep #: [id number] : 1965 M 52 From: Sukumar Holbrook MD PCP: Kaykay Beth MD Status: ADM IN Study: Shoulder min 2 Views Date of Exam: 04/15/18 Exam# [id number] Ordering Dr: Stacey Diamond M[employer]IM[employer] AUTHOR-C STUDY: X-RAY - LEFT SHOULDER REASON FOR EXAM: Male, 52 years old. Left shoulder pain. TECHNIQUE: 2 view(s) of the shoulder on 3 films. COMPARISON: None. FINDINGS: Normal glenohumeral joint space, but there is degenerative inferior periarticular spurring of the glenoid. There is mild degenerative arthrosis of the acromioclavicular joint without inferior osseous spur formation. Normal acromion. Borderline to mild narrowing of the humeral acromial joint space. Normal humeral head and visualized proximal humerus, allowing that the humeral articular surfaces not optimally displayed in profile on these views. The soft tissue structures are unremarkable. There is no demonstrated osseous destructive lesion or fracture. Normal visualized pulmonary apex. Incidental note of an endovascular stent in the posterior thoracic aortic arch extending into the proximal descending thoracic aorta RAD/Shoulder min 2 Views IMPRESSION: Mild degenerative changes of left shoulder, as described. Electronically Signed: Audie Holbrook MD at 13:43 EDT , Service support , CC: DAGO Diamond; Kaykay Beth MD Silver Wrapper: Signed DISCHARGE INSTRUCTION Observed: 04/15/2018 Status: F Source: [place] 9:[address] [facility] REPOSITORY [facility] Medical Records Department [address] [place] [address] Instructions for Home/Discharge Instructions 04/15/1829 MR#: [id number] Acct: [id number] Name: JOSE GUSTAFSON Jr. Rep #: [id number] : 1965 52 From: Maria Esther Alvarez MD PCP: Kaykay Beth MD Status: ADM IN - Discharge Diagnoses Current Active Problems: Current Active and Chronic Problems (This Medical Record has been edited. Action required.) BRBPR (bright red blood per rectum) (Acute) Cystitis (Acute) Stroke (Acute) Reason(s) for Visit for Discharge Instructions: Rectal bleeding You will use the following diet at home:: Cardiac Your food should be the consistency of: Regular Your liquids should be the consistency of: Regular/Thin Discharge Activity: Return to Normal Activity Additional Instructions: Neurology to decide on when to resume his aspirin. Allergies/Adverse Reactions: Allergies cat dander Allergy (Verified 02/07/18 17:19) Unknown grass pollen Allergy (Verified 02/07/18 17:19) Itching Medications to take at Discharge Acetylcysteine [Mucomyst] 400 mg INHALATION Q6H.RT PRN vial.neb. 02/26/18 Ipratropium/Albuterol Sulfate [Duoneb] 3 ml INHALATION Q4H.RT PRN ampul.neb 02/26/18 Baclofen [Lioresal] 10 mg PO TID 03/06/18 Levetiracetam [Keppra] 1,000 mg PO BID 03/06/18 Loratadine [Claritin] 10 mg PO DAILY 03/06/18 Melatonin 3 mg PO QHS 03/06/18 Menthol/Lanolin/Calamine/Znox [Calmoseptine Ointment] 1 applic TOPICAL 0600,2200 03/06/18 Methocarbamol [Robaxin-750] 750 mg PO TID PRN 03/06/18 Metoprolol Tartrate [Lopressor (beta john)] 25 mg PO BID 03/06/18 Oxycodone [Oxyir] 5 mg PO Q6H PRN PRN 03/06/18 Pantoprazole Sodium [Protonix] 40 mg IV DAILY 03/06/18 Polyethylene Glycol 3350 [Miralax] 17 gm PO DAILY PRN 03/06/18 Quetiapine Fumarate [Seroquel] 12.5 mg PO QHS 03/06/18 Venlafaxine HCl [Effexor] 75 mg PO BID 03/06/18 busPIRone [Buspar] 10 mg PO BID 03/06/18 Acetaminophen 650 mg PO Q6H PRN PRN 04/11/18 Amoxicillin [Amoxil] 500 mg PO Q8H 04/11/18 Bisacodyl [Dulcolax] 10 mg RECTAL PRN PRN 04/11/18 Hydrocortisone [Anusol Hc] 25 mg RECTAL 0600,2200 04/11/18 Lacosamide [Vimpat] 100 mg PO BID 04/11/18 Lidocaine [Lidoderm Patch] 1 patch TOPICAL DAILY 04/11/18 Magnesium Hydroxide [Milk Of Magnesia] 30 ml PO DAILY 04/11/18 Na Phos,M-B/Na Phos,Di-Ba [Fleet Enema] 1 bottle RECTAL X1 PRN 04/11/18 Ondansetron [Zofran] 8 mg PO Q8H PRN PRN 04/11/18 Senna [Senokot] 2 tablet PO TID 04/11/18 Tamsulosin HCl [Flomax] 0.4 mg PO DAILY 04/11/18 Primary Care Physician: Kaykay Beth MD [Primary Care Provider] - Please follow up with your Primary Care Physician in: within 2 weeks of discharge Test Results: Test results from this visit will be discussed in further detail at your follow-up appointment, if applicable. Proposed Discharge Date: 04/15/18 04/15/18932 <Electronically signed by Maria Esther Alvarez MD> Date Maria Esther Alvarez MD CC: Tawnya Downing MD; Glory Shelton MD; Kaykay Beth MD OPERATIVE REPORT Observed: 04/12/2018 Status: F Source: [place] 7:[address] [facility] REPOSITORY [facility] Medical Records Department [address] [place] [address] Operative Report 04/12/18 0655 MR#: [id number] Acct: [id number] Name: JOSE GUSTAFSON Jr. Rep #: [id number] : 1965 52 From: Liana Goodman MD PCP: Kaykay Beth MD Status: ADM IN Y Location: [place] [address] Problem List (1) BRBPR (bright red blood per rectum) Status: Acute Report of Operation Date of Procedure: 04/12/18 Pre-Operative Diagnosis: Rectal bleeding Post-Operative Diagnosis: Same Surgery/Procedure Performed:: Colonoscopy Type of Anesthesia:: MAC Anesthesiologist: Anthony Berman Description of Procedure: Patient was brought into the endoscopy and placed in the left lateral decubitus position. He was given graded anesthesia. The scope was inserted into the rectum and directed through the sigmoid colon, descending colon, transverse colon, ascending colon, to the cecum. Operative findings: 1. Cecum: Normal appearance no mass lesions normal ileocecal valve no blood identified. 2. Ascending colon: Normal appearance no mass lesions no blood identified. 3. Transverse colon: Normal appearance no mass lesions no blood identified. 4. Descending colon: Normal appearance no mass lesions no blood identified. Scattered diverticulum. 5. Sigmoid colon: Normal appearance no mass lesions no blood identified scattered diverticulum identified. 6. Rectum: Normal appearance no mass lesions no blood identified retroflexion did not reveal any signs of hemorrhoids. Patient had an extremely poor bowel prep not adequate to identify any small polyps whatsoever the thick fluid was not able to be aspirated through the scope. And it did not easily washed away. There was no signs of any bleeding. There were no large masses identified. The patient does not have any hemorrhoids. Bleeding source most likely from a diverticulum. Since the bowel prep was so poor he probably should have another colonoscopy within 3 years. - Admit VTE Documentation VTE Present on Admission: No VTE Mechan Device Prophylaxis: None VTE Pharm Prophylaxis ordered?: No Reason prophylaxis not ordered:: Treatment Not Indicated 04/12/18 0700 <Electronically signed by Liana Goodman MD> Date Liana Goodman MD CC: Tawnya Downing MD; Glory Shelton MD; Liana Goodman MD; Kaykay Beth MD Signed CBC W/DIFF, AUTOMATED Collected: 04/12/2018 Status: F Source: [place] 4:[address] [facility] REPOSITORY TYPE CODE TESTS RESULT OUT OF RANGE REFERENCE UNITS LAB L100.1000 4.4-11.0 K/mm3 Normal WBC 5.3 LAB L100.1200 4.6-6.2 M/mm3 Low RBC 3.49 LAB L100.1300 13.0-16.5 g/dl Low HGB 12.1 LAB L100.1400 40-54 % Low HCT 34.4 LAB L100.1500 80-94 fL High MCV 98.6 LAB L100.1600 27.0-32.0 pg High MCH 34.7 LAB L100.1700 32-36 g/gl Normal MCHC 35.2 LAB L100.1810 11.6-14.6 % Normal RDW CV 11.7 LAB L100.1820 35.1-43.9 fl Normal RDW SD 40.8 LAB L100.1900 150-450 K/mm3 Normal PLT 299 LAB L100.2000 6.2-12.0 fl Normal MPV 8.8 LAB L100.2100 47-70 % Low NEUT% 46.9 LAB L100.2200 19-41 % High LY% 42.4 LAB L100.2300 0-10 % Normal MONO% 5.9 LAB L100.2400 0-5 % Normal EO% 3.8 LAB L100.2500 0-1 % Normal BASO% 0.8 LAB L100.2550 0.0-0.9 % Normal IM GRAN % 0.200 Result Comment: IG% - Immature Granulocytes (promyelocytes, myelocytes and metamyelocytes) > 1% indicates that a LEFT SHIFT is Present. LAB L100.2620 2.0-7.7 X10 3/uL Normal Absolute Neut 2.5 LAB L100.2720 0.83-4.51 X10 3/ul Normal Absolute Lymph 2.24 Performed By: #### L100.0100 #### [facility] [address] [place], [address] BASIC METABOLIC Collected: 04/12/2018 Status: F Source: [place] PROFILE (BMP) 4:[address] [facility] REPOSITORY TYPE CODE TESTS RESULT OUT OF RANGE REFERENCE UNITS LAB L501.0100 74-106 mg/dL Normal GLU 79 Result Comment: Please note revised GLUCOSE reference range effective 2017. LAB L501.1000 7-18 mg/dL Low BUN 6 LAB L501.1100 0.70-1.30 mg/dL Low CREAT,SERUM 0.36 Result Comment: The validity of the calculated GFR AND GFRAA in patients over 70 years has not been determined. Clinical correlation is essential. LAB L501.1110 >60 mL/min Normal EST GFR 267 Result Comment: Non- GFR Calc LAB L501.1115 >60 mL/min Normal EST GFR - AA 323 Result Comment: GFR Calc LAB L501.1255 ml/min Normal Estimated CRCL 207.77 LAB L501.1300 10-20 RATIO BUN/CRE Normal 16.5 LAB L501.2200 8.5-10 mg/dL Low .1 CA 8.2 LAB L501.5300 136-14 mmol/L 5 NA Normal 140 LAB L501.5600 3.5-5. mmol/L Low 1 K 3.4 LAB L501.5900 98-107 mmol/L CL Normal 106 LAB L501.6100 21.0-3 mmol/L 2.0 CO2 Normal 27.0 LAB L501.6200 5-15 GAP Normal 7 Performed By: #### L500.2500 #### [facility] [address] [place], [address] 12 LEAD ELECTROCARDIOGRAM Observed: 04/11/2018 Status: F Source: [place] 1:[address] [facility] REPOSITORY [facility] Cardiovascular Services [place] [address] 12 Lead EKG 04/05/18 0726 MR#: [id number] Acct: [id number] Name: JOSE GUSTAFSON Jr. Rep #: [id number] : 1965 52 From: Everardo Hsu MD Attending Dr: Andrew Talley MD Status: DIS IN Ordering Dr: Stacey Diamond Date: 04/05/18 Location: RU Sex: M C Admitted: 03/17/18 Test Reason : DRUG INTERACTION Blood Pressure : / mmHG Vent. Rate : 091 BPM Atrial Rate : 091 BPM P-R Int : 106 ms QRS Dur : 078 ms QT Int : 436 ms P-R-T Axes : 046 030 049 degrees QTc Int : 536 ms Sinus rhythm with short MS Nonspecific ST and T wave abnormality Prolonged QT Abnormal ECG When compared with ECG of 04-APR-2018 10:31, MANUAL COMPARISON REQUIRED, DATA IS UNCONFIRMED Confirmed by EVERARDO HSU MD ([id number]), order editor PUSHPA GONZALEZ ([id number]) on 04/11/2018 1:33:38 PM Referred By: MAYANK Confirmed By:EVERARDO HSU MD 04/11/18 1333 Date Everardo Hsu MD CC: DAGO Diamond; Kaykay Beth MD; Andrew Talley MD Signed 12 LEAD ELECTROCARDIOGRAM Observed: 04/11/2018 Status: F Source: [place] 1:[address] [facility] REPOSITORY [facility] Cardiovascular Services [address] [place] [address] 12 Lead EKG 04/04/18 1031 MR#: [id number] Acct: [id number] Name: JOSE GUSTAFSON Jr. Rep #: [id number] : 1965 52 From: Everardo Hsu MD Attending Dr: Andrew Talley MD Status: DIS IN Ordering Dr: Stacey Diamond Date: 04/04/18 Location: [place] Sex: M C Admitted: 03/17/18 Test Reason : NEW MED START Blood Pressure : / mmHG Vent. Rate : 086 BPM Atrial Rate : 086 BPM P-R Int : 128 ms QRS Dur : 082 ms QT Int : 372 ms P-R-T Axes : 080 022 086 degrees QTc Int : 445 ms Normal sinus rhythm Nonspecific T wave abnormality Abnormal ECG When compared with ECG of 06-OCT-2017 16:04, Nonspecific T wave abnormality now evident in Lateral leads Confirmed by EVERARDO HSU MD ([id number]), order editor PUSHPA GONZALEZ ([id number]) on 04/11/2018 1:33:52 PM Referred By: BHARGAV Confirmed By:EVERARDO HSU MD 04/11/18 1333 Date Everardo Hsu MD CC: DAGO Diamond; Kaykay Beth MD; Andrew Talley MD Signed HISTORY AND PHYSICAL Observed: 04/11/2018 Status: F Source: [place] EXAM 12:[address] [facility] REPOSITORY [facility] Medical Records Department [address] [place] [address] History and Physical 04/11/18 1159 MR#: [id number] Acct: [id number] Name: JANAYJOSE Juan Escobar Rep #: [id number] : 1965 52 From: Glory Shelton MD PCP: Kaykay Beth MD Status: ADM IN Y Location: [place] [id number] Problem List (1) BRBPR (bright red blood per rectum) Status: Acute History of Present Illness Date of Admission: 04/11/18 The patient is a 52 year old M who had a CVA and surgery at [facility]. He was admitted in to the rehab service here when he began to have bleeding after an enema. He had blood but has bowel movements throughout the night. He is having no abdominal pain. He says he colonoscopy 1 year ago. Past Medical History Past Medical History (Chronic Problems): Chronic Problems (This Medical Record has been edited. Action required.) Kidney stones (Chronic) Hypertension (Chronic) Asthma (Chronic) Depression (Chronic) Allergies cat dander Allergy (Verified 02/07/18 17:19) Unknown grass pollen Allergy (Verified 02/07/18 17:19) Itching Home Medications: Ambulatory Orders Medication Instructions Recorded Acetylcysteine [Mucomyst] 400 mg INHALATION Q6H.RT PRN 02/26/18 Ipratropium/Albuterol Sulfate 3 ml INHALATION Q4H.RT PRN 02/26/18 Surgical History: herniorrhaphy - Inguinal., - - Aortic dissection repair 10/07/2017, Craniotomy 10/13/2017, Lithotripsy, Left ankle ORIF, Left wrist ORIF, Bilateral heel spur removal, Traceostomy. Psychiatric History: Anxiety, Depression Smoking Status: Former smoker Alcohol: None Drugs: None - *Family History Maternal History Items: No pertinent history Paternal History Items: No pertinent history Review of Systems Constitutional: Denies: Anorexia, Chills HEENT: Reports: Difficulty Swallowing, - - Patient has PEG tube Cardiovascular: Denies: Chest Pain Respiratory: Denies: Cough Gastrointestinal: Reports: Constipation, Hematochezia. Denies: Abdominal Pain, Hematemesis, Nausea, Vomiting Musculoskeletal: Reports: -. Denies: Joint Tenderness Skin: Denies: Dryness Neurological: Reports: Balance problems, Difficulty swallowing, Focal weakness VTE Information - Inpt Only VTE Present on Admission: No VTE Mechan Device Prophylaxis: SCD's Patient Problems: Active and Suspected Problems (This Medical Record has been edited. Action required.) BRBPR (bright red blood per rectum) (Acute) Cystitis (Acute) Stroke (Acute) - Physical Exam General: Alert, Oriented x3, Cooperative Neck: Supple Lungs: Clear to auscultation Abdomen: Soft, Non Tender, Non-Distended, - - PEG tube in place. On rectal exam I do not appreciate any external or internal hemorrhoids. The patient does have bright red blood mixed with stool. I do not feel any impacted stool. Vital Signs Temp Pulse Resp BP Pulse Ox 98.8 F 74 16 142/90 H 100 04/11/18 09:48 04/11/18 09:52 04/11/18 09:48 04/11/18 09:48 04/11/18 09:48 Oxygen Delivery Method Room Air Weight: 136 lb 7.458 oz Body Mass Index (BMI) 18.5 Intake and Output for Last 24 Hours Intake Total 1480 / 1480 Output Total 1075 / 1075 Balance 405 / 405 Laboratory Tests Past 24 Hrs Clinical Impression(s) from Imaging Studies Abdomen/Pelvis CT 04/10/18 22:17 IMPRESSION: CONSTIPATION with fecal impaction causing a colitis in the rectal vault. Electronically Signed: Dayday Welch MD at 22:57 EDT , Service support , Assessment/Plan All Active Problems (This Medical Record has been edited. Action required.) Aortic dissection (Acute) Acute right MCA stroke (Acute) Left hemiplegia (Acute) Acute kidney injury (Acute) Seizure disorder (Acute) Dysphagia (Acute) Vocal cord paralysis (Acute) Dysphagia (Acute) BRBPR (bright red blood per rectum) (Acute) Cystitis (Acute) Stroke (Acute) 52-year-old male with bright red blood per rectum 1. The patient notes that he has been constipated and they tried giving him an enema. He has been bleeding through the night per rectum. His Lovenox was held his hemoglobin is stable. On rectal exam I did get bright red blood with soft stool but no obvious hemorrhoids. 2. The patient has CT scan which shows possible colitis of the rectum. 3. The patient will be bowel prep tonight and have flexible sigmoidoscopy and colonoscopy by Dr. Goodman in the morning. Glory Shelton MD Pager: [facility] [address] [place] [address], [address] [place] [address] Office: 04/11/18 1212 <Electronically signed by Glory Shelton MD> Date Glory Shelton MD Cosigner Signature: Date (if applicable) CC: Glory Shelton MD; Kaykay Beth MD Signed HISTORY AND PHYSICAL Observed: 04/11/2018 Status: F Source: [place] EXAM 7:[address] [facility] REPOSITORY [facility] Medical Records Department [address] [place] [address] History and Physical 04/10/18 2159 MR#: [id number] Acct: [id number] Name: JOSE GUSTAFSON Jr. Rep #: [id number] : 1965 52 From: Luis Enrique Melgar MD PCP: Kaykay Beth MD Status: ADM IN Y Location: [place] [address] Problem List (1) BRBPR (bright red blood per rectum) Status: Acute (2) Cystitis Status: Acute (3) Hypertension Status: Chronic History of Present Illness Date of Admission: 04/10/18 Chief Complaint: bright red blood per rectum The patient is a 52 year old male with recent complicated past medical history including aortic dissection for which patient underwent surgery at [facility] which was complicated by a right MCA stroke in September 2017 status post decompressive craniectomy in September 2017 followed by vocal cord paralysis managed by ENT and subsequently had pneumonia and respiratory failure resulting into intubation in December 2017 and was discharged to TCU on 02/07/2018. Patient had PEG tube placement on 02/13/2018 and then was readmitted to [facility] on 03/17/2013 for cranioplasty and subsequently transferred to the inpatient rehab unit. Patient was transferred to [facility] as a result of midline shift and large right-sided subdural pneumocephalus on CT obtained on 03/14/2018. Patient was monitored in the neuro intensive care unit and transferred back to the inpatient rehab unit on 03/18/2018. While at the rehab unit patient was noted to have constipation and received a couple of enema. He was noted to have rectal bleeding and received anusol for hemorrhoids. His lovenox was discontinued because of the rectal bleeding On 04/10/2018 Patient, was noted to have progressively worsening bright rectal bleeding per rectum so he was transferred to the acute care for further management. Before the transfer NSS bolus and infusion was started. Past Medical History Past Medical History (Chronic Problems): Chronic Problems (This Medical Record has been edited. Action required.) Kidney stones (Chronic) Hypertension (Chronic) Asthma (Chronic) Depression (Chronic) Allergies cat dander Allergy (Verified 02/07/18 17:19) Unknown grass pollen Allergy (Verified 02/07/18 17:19) Itching Home Medications: Ambulatory Orders Medication Instructions Recorded Acetylcysteine [Mucomyst] 400 mg INHALATION Q6H.RT PRN 02/26/18 Ipratropium/Albuterol Sulfate 3 ml INHALATION Q4H.RT PRN 02/26/18 Surgical History: herniorrhaphy - Inguinal., - - Aortic dissection repair 10/07/2017, Craniotomy 10/13/2017, Lithotripsy, Left ankle ORIF, Left wrist ORIF, Bilateral heel spur removal, Traceostomy. Psychiatric History: Anxiety, Depression Smoking Status: Former smoker Alcohol: None Drugs: None - *Family History Maternal History Items: No pertinent history Paternal History Items: No pertinent history Review of Systems Constitutional: Denies: Chills, Fever, Weight Change HEENT: Denies: Head Aches, Sinus Congestion, Sinus Drainage Cardiovascular: Denies: Chest Pain, Palpitations Respiratory: Denies: Cough, Shortness of breath at rest, Sputum production Gastrointestinal: Reports: Constipation, Hematochezia. Denies: Abdominal Pain, Nausea, Vomiting Genitourinary: Denies: Dysuria Musculoskeletal: Reports: - - left hip pain (chronic) Skin: Denies: Rash, Wounds Neurological: Denies: Numbness, Tingling, Focal weakness Psychiatric: Reports: Anxiety. Denies: Homicidal Ideations, Suicidal Ideations Hematologic/ Lymphatic: Denies: Easy Bruising, Easy Bleeding VTE Information - Inpt Only VTE Present on Admission: No VTE Mechan Device Prophylaxis: SCD's VTE Pharm Prophylaxis ordered?: No Reason prophylaxis not ordered:: Medical Contraindication - bleeding. Patient Problems: Active and Suspected Problems (This Medical Record has been edited. Action required.) BRBPR (bright red blood per rectum) (Acute) Cystitis (Acute) Objective: GENERAL: cooperative HEENT: Craniotomy scar on scalp NECK; supple, normal thyroid, CHEST: Clear to auscultation bilaterally, HEART: Regular S1 S2, no audible murmurs ABDOMEN: Peg tube in place, soft, non-tender, normoactive bowel sounds. RECTAL: BRPR per rectum EXTREMITIES: No edema, no clubbing, no cyanosis. ROVING HAULER: Awake; left upper extremity contractures paresis. Left leg with reduced range of motion SKIN: No Rash Assessment/Plan All Active Problems (This Medical Record has been edited. Action required.) Aortic dissection (Acute) Acute right MCA stroke (Acute) Left hemiplegia (Acute) Acute kidney injury (Acute) Seizure disorder (Acute) Dysphagia (Acute) Vocal cord paralysis (Acute) Dysphagia (Acute) BRBPR (bright red blood per rectum) (Acute) Cystitis (Acute) The patient is a 52 year old male with recent complicated past medical history including aortic dissection for which patient underwent surgery at [facility] which was complicated by a right MCA stroke in September 2017 status post decompressive craniectomy in September 2017 followed by vocal cord paralysis managed by ENT and subsequently had pneumonia and respiratory failure resulting into intubation in December 2017 and was discharged to TCU on 02/07/2018. Patient had PEG tube placement on 02/13/2018 and then was readmitted to [facility] on 03/17/2013 for cranioplasty and subsequently transferred to the inpatient rehab unit. Patient was noted to have, CT findings on 03/14/2018. He was transferred to [facility] as a result of midline shift and large right-sided subdural pneumocephalus. Patient was monitored in the neuro intensive care unit and transferred back to the inpatient rehab unit on 03/18/2018. While at the rehab unit patient was noted to have constipation and received enemas. He was noted to have rectal bleeding and received anusol for hemorrhoids. His lovenox was discontinued because of the rectal bleeding Patient, was noted to have progressively worsening bright rectal bleeding per rectum so he was transferred to the acute care for further management. Before the transfer NSS bolus was started.General surgeon was consulted and they will follow. 1. Bright red blood per rectum. CT scan interpreted showed large stool burden. Status post normal saline bolus. Continue normal saline infusion. H AND H every 6 hours We will hold laxative and stimulating agent for now pending general surgery evaluation. Aspirin held. Neurology consulted in the setting of holding aspirin while patient has had recent ischemic stroke 2. Physical debility secondary to Right MCA stroke with residual left-sided hemiparesis: Continue PT and OT. 3. Acute cystitis with VRE-Amoxicillin continued; appropriate antibiotic based on culture results; isolation continued 4. Aortic dissection status post surgery 5. Seizure disorder patient is on Keppra and Vimpat 6. Vocal cord paralysis: Speech therapy re-consulted 7. Hypertension-blood pressure controlled. Metoprolol continued with parameters. Patient is at risk for hypotension secondary to GI bleed. 8 . Dysphagia: s/p PEG tube placement. also able to take PO food. N.p.o. for now pending surgery evaluation. 9. Depression. On effexor and seroquel 10. Anxiety. buspirone continued 11. Constipation -bowel stimulants and laxatives held because of GI bleed. General surgery to evaluate patient in a.m. 12. Hemorrhoidal bleeding Anusol held. See #11 12. DVT prophylaxis: Lovenox held in view of #10. SCD ordered Code Visit Inpatient E AND M: 96017 Init Hosp L3 04/11/18 0713 <Electronically signed by Luis Enrique Melgar MD> Date Luis Enrique Melgar MD Cosigner Signature: Date (if applicable) CC: Luis Enrique Melgar MD; Kaykay Beth MD Signed BASIC METABOLIC Collected: 04/11/2018 Status: F Source: [place] PROFILE (BMP) 5:[address] [facility] REPOSITORY TYPE CODE TESTS RESULT OUT OF RANGE REFERENCE UNITS LAB L501.0100 74-106 mg/dL Normal GLU 99 Result Comment: Please note revised GLUCOSE reference range effective 2017. LAB L501.1000 7-18 mg/dL Normal BUN 10 LAB L501.1100 0.70-1.30 mg/dL Low CREAT,SERUM 0.47 Result Comment: The validity of the calculated GFR AND GFRAA in patients over 70 years has not been determined. Clinical correlation is essential. LAB L501.1110 >60 mL/min Normal EST GFR 198 Result Comment: Non- GFR Calc LAB L501.1115 >60 mL/min Normal EST GFR - AA 240 Result Comment: GFR Calc LAB L501.1255 ml/min Normal Estimated CRCL 159.14 LAB L501.1300 10-20 RATIO High BUN/CRE 21.3 LAB L501.2200 8.5-10 mg/dL Low .1 CA 8.1 LAB L501.5300 136-14 mmol/L High 5 NA 146 LAB L501.5600 3.5-5. mmol/L 1 K Normal 3.7 LAB L501.5900 98-107 mmol/L High CL 113 LAB L501.6100 21.0-3 mmol/L 2.0 CO2 Normal 25.0 LAB L501.6200 5-15 GAP Normal 8 Performed By: #### L500.2500 #### [facility] [address] [place], [address] HH, HEMOGLOBIN AND Collected: 04/11/2018 Status: F Source: [place] HEMATOCRIT 1:[address] [facility] REPOSITORY Order Comment: Comments: EVERY 6 HOURS TYPE CODE TESTS RESULT OUT OF RANGE REFERENCE UNITS LAB L100.1300 13.0-16.5 g/dl Low HGB 12.2 LAB L100.1400 40-54 % Low HCT 35.8 Performed By: #### L100.0600 #### [facility] [address] [facility] [place], [address] PROTHROMBIN TIME W/INR Collected: 04/10/2018 Status: F Source: [place] 11:[address] [facility] REPOSITORY TYPE CODE TESTS RESULT OUT OF RANGE REFERENCE UNITS LAB L300.4150 11.7-14.9 SECONDS Normal PROTIME 14.0 LAB L300.4200 Normal INR 1.1 Performed By: #### L300.3900 #### [facility] [address] [place], [address] ABDOMEN/PELVIS W IV CONT Observed: 04/10/2018 Status: F Source: [place] ONLY 10:[address] [facility] REPOSITORY [facility] Imaging Services [address] [place] [address] Abdomen/Pelvis W IV Cont ONLY MR#: [id number] Acct: [id number] Name: JOSE GUSTAFSON Juan Escobar Rep #: [id number] : 1965 M 52 From: Dayday Welch MD PCP: Kaykay Beth MD Status: ADM IN Study: Abdomen/Pelvis W IV Cont ONLY Date of Exam: 04/10/18 Exam# [id number] Ordering Dr: Luis Enrique Melgar MD STUDY: CT ABDOMEN AND PELVIS WITH CONTRAST REASON FOR EXAM: Male, 52 years old. PT GIVEN ENEMAS FOR CONSTIPATION AND NOW HAS RECTAL BLEEDING,VRE IN URINE HX:CVA,HTN,KIDNEY STONES,ASTHMA SURGERY:AORTIC DISSECTION REPAIR,CRANIOTOMY,LITHOTRIPSY RADIATION DOSAGE (If Supplied By Facility): CTDIvol = ( 7.74 ) mGy, DLP = ( 669.24 ) mGycm TECHNIQUE: Transaxial images were obtained from the dome of the diaphragm to the symphysis pubis without oral contrast. 100ML ml of Isovue 300 contrast was administered. Sagittal and coronal images were reconstructed. Individualized dose optimization techniques were used for this CT. COMPARISON: 03.12.15 FINDINGS: The visualized lung bases are unremarkable. The visualized portions of the heart are within normal limits. Multiple median sternotomy wires are noted consistent for cardiac surgery. There is an elevated left hemidiaphragm. Normal liver. Normal gallbladder and extrahepatic biliary system. Normal spleen. Normal pancreas. Normal bilateral adrenal glands. Normal right kidney. Normal left kidney. There is a PEG tube in place. Normal small intestine. Stool throughout the colon. There are surgical clips in the region of the appendix consistent with a prior appendectomy. Large amount of stool in the rectal vault can suggest constipation. There is inflammation in the rectum suggesting colitis. Normal abdominal aorta. Normal inferior vena cava. Normal retroperitoneum. Normal urinary bladder. There are prostatic calcifications. There is a left-sided inguinal hernia containing adipose tissue. Total left hip arthroplasty. CT/Abdomen/Pelvis W IV Cont ONLY IMPRESSION: CONSTIPATION with fecal impaction causing a colitis in the rectal vault. Electronically Signed: Dayday Welch MD at 22:57 EDT , Service support , CC: Luis Enrique Melgar MD; Kaykay Beth MD Silver Wrapper: Signed DISCHARGE SUMMARY Observed: 04/10/2018 Status: F Source: [place] 9:[address] [facility] REPOSITORY [facility] Medical Records Department [address] [place] [address] [place] [address] Discharge Summary 04/10/182043 MR#: [id number] Acct: [id number] Name: JOSE GUSTAFSON Jr. 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 Action required.) Kidney stones (Chronic) Hypertension (Chronic) Asthma (Chronic) Depression (Chronic) Hospital Course and Treatment Imaging Results: 04/10/18 20:07 CT Abd [Abdomen/Pelvis W IV Cont ONLY] [CT] Stat Summary of Care Provided: The patient is a 52 year old male with recent complicated past medical history including aortic dissection for which patient underwent surgery at [facility] which was complicated by a right MCA stroke in September 2017 status post decompressive craniectomy in September 2017 followed by vocal cord paralysis managed by ENT and subsequently had pneumonia and respiratory failure resulting into intubation in December 2017 and was discharged to TCU on 02/07/2018. Patient had PEG tube placement on 02/13/2018 and then was readmitted to [facility] on 03/17/2013 for cranioplasty and subsequently transferred to the inpatient rehab unit. Patient was noted to have, CT findings on 03/14/2018. He was transferred to [facility] as a result of midline shift and large right-sided subdural pneumocephalus. Patient was monitored in the neuro intensive care unit and transferred back to the inpatient rehab unit on 03/18/2018. While at the inpatient unit patient was noted to have constipation and received enemas. He was noted to have rectal bleeding and received anusol for hemorrhoids. His lovenox was discontinued because of the rectal bleeding Patient, was noted to have progressively worsening bright rectal bleeding per rectum so he was transferred to the acute care for further management. Before the transfer NSS bolus and infusion was ordered. His aspirin was discontinued and his protonix regimen escalated. General surgeon was consulted and they will follow. Patient was examined at bedside BP 101/68 P 76 RR 18 T97.9 Lungs CTA S1, S2 present Abdomen Soft, non tender, Peg tube in place Bright red blood per rectum noted on rectal exams Decreased ROM in left lower extremities. Left arm contracted. Home Medications: Medications to take at Discharge Budesonide/Formoterol 80-4.5 [Symbicort 80-4.5 Mcg Inhaler] 2 puff INHALATION BID 10/07/17 Acetylcysteine [Mucomyst] 400 mg INHALATION Q6H.RT PRN vial.neb. 02/26/18 Ipratropium/Albuterol Sulfate [Duoneb] 3 ml INHALATION Q4H.RT PRN ampul.neb 02/26/18 Baclofen [Lioresal] 10 mg PO TID 03/06/18 Hydrocortisone 2.5% Crm [Hytone] 1 applic TOPICAL BID 03/06/18 Levetiracetam [Keppra] 1,000 mg PO BID 03/06/18 Loratadine [Claritin] 10 mg PO DAILY 03/06/18 Melatonin 3 mg PO QHS 03/06/18 Menthol/Lanolin/Calamine/Znox [Calmoseptine Ointment] 1 applic TOPICAL 0600,2200 03/06/18 Methocarbamol [Robaxin-750] 750 mg PO TID PRN 03/06/18 Metoprolol Tartrate [Lopressor (beta john)] 25 mg PO BID 03/06/18 Oxycodone [Oxyir] 5 mg PO Q6H PRN PRN 03/06/18 Pantoprazole Sodium [Protonix] 40 mg PO DAILY 03/06/18 Polyethylene Glycol 3350 [Miralax] 17 gm PO DAILY PRN 03/06/18 Quetiapine Fumarate [Seroquel] 12.5 mg PO QHS 03/06/18 Venlafaxine HCl [Effexor] 75 mg PO BID 03/06/18 busPIRone [Buspar] 10 mg PO BID 03/06/18 Primary Care Physician: Kaykay Beth MD [Primary Care Provider] - Please Follow Up With: Jarvis Cifuentes MD Disposition: Acute care Hospital Minutes spent on discharge:: 35 Patient Condition:: Guarded Medical Necessity - Tobacco Use Smoking Status: Former smoker Tobacco Use: Non-smoker Meaningful Use Info Meaningful Use Diagnoses (Choose all that apply): None applicable - CVA Therapy Assessed for PT,OT and/or ST?: Yes - Ischemic Stroke Antithrombotic order at d/c?: No Reason antithrombotic not ordered: Treatment not Indicated - VTE Anticoag overlap given w/in hospital stay or rx'd at dc?: Yes Pt receive overlap for 5 days?: Yes Code Visit Inpatient E AND M: 17744 SNF Disch >30 Min 04/10/18 2100 <Electronically signed by Luis Enrique Melgar MD> Date Luis Enrique Melgar MD Cosigner Signature (if applicable): Date CC: Luis Enrique Melgar MD; Kaykay Beth MD Signed HH, HEMOGLOBIN AND Collected: 04/10/2018 Status: F Source: [place] HEMATOCRIT 8:[address] [facility] REPOSITORY TYPE CODE TESTS RESULT OUT OF RANGE REFERENCE UNITS LAB L100.1300 13.0-16.5 g/dl Low HGB 12.8 LAB L100.1400 40-54 % Low HCT 39.1 Performed By: #### L100.0600 #### [facility] [address] [facility] [place], [address] DISCHARGE INSTRUCTION Observed: 04/10/2018 Status: F Source: [place] 8:[address] [facility] REPOSITORY [facility] Medical Records Department [address] [place] [address] Instructions for Home/Discharge Instructions 04/10/186 MR#: [id number] Acct: [id number] Name: JOSE GUSTAFSON Jr. Rep #: [id number] : 1965 52 From: Luis Enrique Melgar MD PCP: Kaykay Beth MD Status: ADM IN - Discharge Diagnoses Reason(s) for Visit for Discharge Instructions: Rehab after Aortic dissection and CVA You will use the following diet at home:: Cardiac Allergies/Adverse Reactions: Allergies cat dander Allergy (Verified 02/07/18 17:19) Unknown grass pollen Allergy (Verified 02/07/18 17:19) Itching Medications to take at Discharge Budesonide/Formoterol 80-4.5 [Symbicort 80-4.5 Mcg Inhaler] 2 puff INHALATION BID 10/07/17 Acetylcysteine [Mucomyst] 400 mg INHALATION Q6H.RT PRN vial.neb. 02/26/18 Ipratropium/Albuterol Sulfate [Duoneb] 3 ml INHALATION Q4H.RT PRN ampul.neb 02/26/18 Baclofen [Lioresal] 10 mg PO TID 03/06/18 Hydrocortisone 2.5% Crm [Hytone] 1 applic TOPICAL BID 03/06/18 Levetiracetam [Keppra] 1,000 mg PO BID 03/06/18 Loratadine [Claritin] 10 mg PO DAILY 03/06/18 Melatonin 3 mg PO QHS 03/06/18 Menthol/Lanolin/Calamine/Znox [Calmoseptine Ointment] 1 applic TOPICAL 0600,2200 03/06/18 Methocarbamol [Robaxin-750] 750 mg PO TID PRN 03/06/18 Metoprolol Tartrate [Lopressor (beta john)] 25 mg PO BID 03/06/18 Oxycodone [Oxyir] 5 mg PO Q6H PRN PRN 03/06/18 Pantoprazole Sodium [Protonix] 40 mg PO DAILY 03/06/18 Polyethylene Glycol 3350 [Miralax] 17 gm PO DAILY PRN 03/06/18 Quetiapine Fumarate [Seroquel] 12.5 mg PO QHS 03/06/18 Venlafaxine HCl [Effexor] 75 mg PO BID 03/06/18 busPIRone [Buspar] 10 mg PO BID 03/06/18 Primary Care Physician: Kaykay Beth MD [Primary Care Provider] - Test Results: Test results from this visit will be discussed in further detail at your follow-up appointment, if applicable. Please Follow Up With: Jarvis Cifuentes MD Proposed Discharge Date: 04/10/18 04/10/182042 <Electronically signed by Luis Enrique Melgar MD> Date Luis Enrique Melgar MD CC: Glory Shelton MD; Jarvis Cifuentes MD; Maurice Gama DO; Kaykay Beth MD ABDOMEN/PELVIS W IV CONT Observed: 04/10/2018 Status: F Source: [place] ONLY 8:[address] [facility] REPOSITORY [facility] Imaging Services [address] [place] [address] Abdomen/Pelvis W IV Cont ONLY MR#: [id number] Acct: [id number] Name: JOSE GUSTAFSON Jr. Rep #: [id number] : 1965 M 52 From: Dayday Welch MD PCP: Kaykay Beth MD Status: DIS IN Study: Abdomen/Pelvis W IV Cont ONLY Date of Exam: 04/10/18 Exam# [id number] Ordering Dr: Luis Enrique Melgar MD STUDY: CT ABDOMEN AND PELVIS WITH CONTRAST REASON FOR EXAM: Male, 52 years old. PT GIVEN ENEMAS FOR CONSTIPATION AND NOW HAS RECTAL BLEEDING,VRE IN URINE HX:CVA,HTN,KIDNEY STONES,ASTHMA SURGERY:AORTIC DISSECTION REPAIR,CRANIOTOMY,LITHOTRIPSY RADIATION DOSAGE (If Supplied By Facility): CTDIvol = ( 7.74 ) mGy, DLP = ( 669.24 ) mGycm TECHNIQUE: Transaxial images were obtained from the dome of the diaphragm to the symphysis pubis without oral contrast. 100ML ml of Isovue 300 contrast was administered. Sagittal and coronal images were reconstructed. Individualized dose optimization techniques were used for this CT. COMPARISON: 15 FINDINGS: The visualized lung bases are unremarkable. The visualized portions of the heart are within normal limits. Multiple median sternotomy wires are noted consistent for cardiac surgery. There is an elevated left hemidiaphragm. Normal liver. Normal gallbladder and extrahepatic biliary system. Normal spleen. Normal pancreas. Normal bilateral adrenal glands. Normal right kidney. Normal left kidney. There is a PEG tube in place. Normal small intestine. Stool throughout the colon. There are surgical clips in the region of the appendix consistent with a prior appendectomy. Large amount of stool in the rectal vault can suggest constipation. There is inflammation in the rectum suggesting colitis. Normal abdominal aorta. Normal inferior vena cava. Normal retroperitoneum. Normal urinary bladder. There are prostatic calcifications. There is a left-sided inguinal hernia containing adipose tissue. Total left hip arthroplasty. CT/Abdomen/Pelvis W IV Cont ONLY IMPRESSION: CONSTIPATION with fecal impaction causing a colitis in the rectal vault. Electronically Signed: Dayday Welch MD at 22:57 EDT , Service support , CC: Luis Enrique Melgar MD; Kaykay Beth MD Silver Wrapper: Signed Observed: 04/10/2018 Status: C Source: [place] STOOL OCCULT BLOOD 9:[address] [facility] IFOB REPOSITORY STOB iFOB * This is an amended result. * A prior result that was reported as final has been changed. 04/10/18 0925 by JOSEFINA Previously reported as: NEGATIVE Normal Reference Range = Negative Occult Blood Positive ORGANISM 1: OCCULT BLOOD POSITIVE Performed By: #### M100.7900 #### [facility] [place], [address] CBC-COMPLETE BLOOD CNT Collected: 04/10/2018 Status: F Source: [place] NO DIFF 7:[address] [facility] REPOSITORY TYPE CODE TESTS RESULT OUT OF RANGE REFERENCE UNITS LAB L100.1000 4.4-11.0 K/mm3 Normal WBC 4.9 LAB L100.1200 4.6-6.2 M/mm3 Low RBC 3.95 LAB L100.1300 13.0-16.5 g/dl Normal HGB 13.6 LAB L100.1400 40-54 % Low HCT 39.4 LAB L100.1500 80-94 fL High MCV 99.7 LAB L100.1600 27.0-32.0 pg High MCH 34.4 LAB L100.1700 32-36 g/gl Normal MCHC 34.5 LAB L100.1810 11.6-14.6 % Normal RDW CV 12.0 LAB L100.1820 35.1-43.9 fl Normal RDW SD 43.3 LAB L100.1900 150-450 K/mm3 Normal PLT 274 LAB L100.2000 6.2-12.0 fl Normal MPV 8.7 Performed By: #### L100.0500, L500.2500, L501.5200 #### [facility] [address] [place], [place], [address] BASIC METABOLIC Collected: 04/10/2018 Status: F Source: [place] PROFILE (BMP) 7:[address] [facility] REPOSITORY TYPE CODE TESTS RESULT OUT OF RANGE REFERENCE UNITS LAB L501.0100 74-106 mg/dL Normal GLU 86 Result Comment: Please note revised GLUCOSE reference range effective 2017. LAB L501.1000 7-18 mg/dL Normal BUN 10 LAB L501.1100 0.70-1.30 mg/dL Low CREAT,SERUM 0.56 Result Comment: The validity of the calculated GFR AND GFRAA in patients over 70 years has not been determined. Clinical correlation is essential. LAB L501.1110 >60 mL/min Normal EST GFR 161 Result Comment: Non- GFR Calc LAB L501.1115 >60 mL/min Normal EST GFR - AA 195 Result Comment: GFR Calc LAB L501.1255 ml/min Normal Estimated CRCL 133.56 LAB L501.1300 10-20 RATIO BUN/CRE Normal 17.8 LAB L501.2200 8.5-10 mg/dL Low .1 CA 8.4 LAB L501.5300 136-14 mmol/L 5 NA Normal 143 LAB L501.5600 3.5-5. mmol/L 1 K Normal 3.7 LAB L501.5900 98-107 mmol/L High CL 108 LAB L501.6100 21.0-3 mmol/L 2.0 CO2 Normal 28.0 LAB L501.6200 5-15 GAP Normal 7 Performed By: #### L100.0500, L500.2500, L501.5200 #### [facility] [address] [place], [address] MAGNESIUM Collected: 04/10/2018 Status: F Source: [place] 7:[address] [facility] REPOSITORY TYPE CODE TESTS RESULT OUT OF RANGE REFERENCE UNITS LAB L501.5200 1.6-2.6 mg/dL Normal MG 2.3 Performed By: #### L100.0500, L500.2500, L501.5200 #### [facility] [address] [place], [address] ABDOMEN SINGLE VIEW Observed: 04/07/2018 Status: F Source: [place] (PORTABLE) 12:[address] [facility] REPOSITORY [facility] Imaging Services [address] [facility] [place] [address] Abdomen Single View (Portable) MR#: [id number] Acct: [id number] Name: JOSE GUSTAFSON Jr. Rep #: [id number] : 1965 M 52 From: Dutch Jones MD PCP: Kirit NAQVI,Kaykay Status: ADM IN Study: Abdomen Single View (Portable) Date of Exam: 04/07/18 Exam# [id number] Ordering Dr: Stacey Diamond STUDY: X-RAY - ABDOMEN/PELVIS REASON FOR EXAM: Male, 52 years old. Constipation, hemiplegia, PEG tube TECHNIQUE: Single AP view of the abdomen / pelvis. COMPARISON: Prior study of 06/04/2016 FINDINGS: The lung bases are not in the field of view of the study. A portion of PEG tube balloon is noted in the left upper quadrant of the abdomen. There is a large amount of stool in the rectal vault. There is no demonstrated free abdominal air. The visualized liver, spleen and kidneys are grossly normal in size and morphology. Normal soft tissue structures. Status post total left hip replacement changes are noted. RAD/Abdomen Single View (Portable) IMPRESSION: Large amount of stool in the rectal vault consistent with constipation. There is no evidence of ileus or obstruction. Portion of PEG tube balloon seen in the left upper quadrant of the abdomen. Status post total left hip replacement changes are seen. Electronically Signed: Dutch Jones MD at 16:57 EDT , Service support , CC: DAGO Diamond; Kaykay Beth MD Silver Wrapper: Signed URINALYSIS, ROUTINE Collected: 04/03/2018 Status: F Source: [place] (DIPSTICK) 11:[address] [facility] REPOSITORY Order Comment: How was Urine Obtained? MANAGER PHOTO TO SPECIFY TYPE CODE TESTS RESULT OUT OF RANGE REFERENCE UNITS LAB L400.3000 Yellow COLOR Normal Yellow LAB L400.3050 Clear Normal CLARITY Sl. Cloudy LAB L400.3200 Normal mg/dl Normal GLUCOSE, UR Normal LAB L400.3300 Negative mg/dL Normal BILIRUBIN URINE Negative LAB L400.3400 Negative mg/dl Normal KETONE UR Negative LAB L400.3465 1.002-1.030 Normal SP.GR. DIPSTX 1.015 LAB L400.3550 5.0 - 8.0 pH UR Normal 8.0 LAB L400.3600 Negative mg/dl High PROT 15 DIPSTX LAB L400.3700 Normal mg/dl Normal UROBILI Normal LAB L400.3750 Negative Normal NITRITE UR Negative LAB L400.3780 Negative /ul High 25 OCCULT BLOOD-UR LAB L400.3800 Negative /ul High LEUK 25 ESTERASE Performed By: #### L400.2010 #### [facility] [address] [place], [address] URINALYSIS, COMPLETE Collected: 04/03/2018 Status: F Source: [place] 11:[address] [facility] REPOSITORY Order Comment: How was Urine Obtained? MANAGER PHOTO TO SPECIFY TYPE CODE TESTS RESULT OUT OF RANGE REFERENCE UNITS LAB L400.3000 Yellow COLOR Normal Yellow LAB L400.3050 Clear Sl Normal CLARITY Cldy LAB L400.3200 Normal mg/dl Normal GLUCOSE, UR NEGATIVE LAB L400.3300 Negative mg/dL Normal BILIRUBIN URINE Negative LAB L400.3400 Negative mg/dl Normal KETONE UR Negative LAB L400.3465 1.002-1.030 Normal SP.GR. DIPSTX 1.015 LAB L400.3550 5.0 - 8.0 pH UR Normal 8.0 LAB L400.3600 Negative mg/dl High PROT 15 DIPSTX LAB L400.3700 Normal mg/dl Normal UROBILI Normal LAB L400.3750 Negative Normal NITRITE UR Negative LAB L400.3780 Negative /ul High 25 OCCULT BLOOD-UR LAB L400.3800 Negative /ul High LEUK 25 ESTERASE LAB L400.4050 0-5 /hpf WBC Normal 0-5 SEEN LAB L400.4100 0-5 /hpf Normal RBC-UA 0-5 SEEN LAB L400.4150 0-5 /hpf SQUAM Normal EPI 0-5 SEEN LAB L400.4300 None Seen /hpf 4+ Normal BACTERIA LAB L400.4350 <or=2+ /hpf 0 Normal MUCUS, URINE SEEN LAB L400.4700 <or=2+ /hpf CA OX 1+ Normal CRYSTAL Performed By: #### L400.0001 #### [facility] [address] [place], [place], [address] Observed: 04/03/2018 Status: F Source: [place] CULTURE, URINE 11:[address] [facility] REPOSITORY Urine Culture RESULTS CALLED TO CK 04/07/18 0812 Leann [place]. REPORT READ BACK BY SAME. ORGANISM 1: Vancomycin Resist. E. faecilis [place] Count >100,000 Vancomycin Resist. E. faecilis: REACTION Ampicillin $ <=2 S Benzylpenicillin NF 8 S Ciprofloxacin $ >=8 R Gentamicin SYN-R R Levofloxacin $ >=8 R Linezolid $$$$ 1 S Nitrofurantoin $ <=16 S Streptomycin $ SYN-S S Tetracycline NF >=16 R Vancomycin $ >=32 R (NF) indicates non-formulary drug at [facility]. Approval by Infectious Disease Specialist required before non-formulary drugs may be ordered and/or dispensed. * CLSI guidelines does not recommend testing of cephalosporins. This interpretation is deduced from Beta-lactam/penicillin results. Performed By: #### M100.0650 #### [facility] [address] [place], [address] HISTORY AND PHYSICAL Observed: 03/19/2018 Status: F Source: [place] EXAM 10:[address] [facility] REPOSITORY [facility] Medical Records Department [address] [place] [address] History and Physical 03/18/18 1154 MR#: [id number] Acct: [id number] Name: JOSE GUSTAFSON Jr. Rep #: [id number] : 1965 52 From: David Durant MD PCP: Kaykay Beth MD Status: ADM IN Y Location: [place] [address] History of Present Illness Date of Admission: 03/17/18 Chief Complaint: Debility The patient is a 52 year old M who is readmitted to the rehab unit. See discharge summary from 03/14/18 below. The patient was sent to the [facility] because of a subdural hematoma consequent to a complex hospitalization as described below, he was treated conservatively and observed. He now presents back to the rehab unit for further rehabilitation so that he can return home. He denies any pain at this point. He would like to advance his diet as feasible. Denies any GI or complaints. Per discharge summary 03/14/18: The patient is a 52 year old male with recent complicated past medical history including aortic dissection for which patient underwent surgery at [facility] which was complicated by a right MCA stroke in September 2017 status post decompressive craniectomy in September 2017 followed by vocal cord paralysis managed by ENT and subsequently had pneumonia and respiratory failure resulting into intubation in December 2017 and was discharged to TCU on 02/07/2018. Patient had PEG tube placement on 02/13/2018 and then was readmitted to [facility] on 03/17/2013 for cranioplasty and subsequently transferred to the inpatient rehab unit. Here, patient was supposed to start aspirin tomorrow a.m. and prior to that he required CT head to rule out bleed. CT head was done today and shows large right-sided subdural fluid and gas collection measuring 9.4 cm craniocaudal, 11.7 cm AP, 4.7 cm greatest depth of lenticular shaped collection. About one third filled with fluid. No acute blood. There is also subgaleal gas overlying the right craniectomy likely complicating with subdural pneumocephalus. There is midline shift of 13 mm leftward at the level of septum pellucidum. No evidence of osman herniation left cerebral hemisphere exhibits no acute process. In view of this new CT finding of midline shift and large right-sided subdural pneumocephalus, neurologist Dr. Downing advised transfer [facility]. Past Medical History Past Medical History (Chronic Problems): Chronic Problems (This Medical Record has been edited. Action required.) Kidney stones (Chronic) Hypertension (Chronic) Asthma (Chronic) Depression (Chronic) Allergies cat dander Allergy (Verified 02/07/18 17:19) Unknown grass pollen Allergy (Verified 02/07/18 17:19) Itching Home Medications: Ambulatory Orders Medication Instructions Recorded Budesonide/Formoterol 80-4.5 2 puff INHALATION BID 10/07/17 Surgical History: herniorrhaphy - Inguinal., - - Aortic dissection repair 10/07/2017, Craniotomy 10/13/2017, Lithotripsy, Left ankle ORIF, Left wrist ORIF, Bilateral heel spur removal, Traceostomy. Psychiatric History: Anxiety, Depression Smoking Status: Former smoker Tobacco Use: Non-smoker Alcohol: None Drugs: None - *Family History Maternal History Items: No pertinent history Paternal History Items: No pertinent history Review of Systems Constitutional: Denies: Chills, Fever, Weight Change HEENT: Denies: Head Aches, Sinus Congestion, Sinus Drainage Cardiovascular: Denies: Chest Pain, Palpitations Respiratory: Denies: Cough, Shortness of breath at rest, Sputum production Gastrointestinal: Denies: Abdominal Pain, Nausea, Vomiting Genitourinary: Denies: Dysuria Musculoskeletal: Denies: Joint Pain, Joint Tenderness Skin: Denies: Rash, Wounds Neurological: Denies: Numbness, Tingling, Focal weakness Psychiatric: Denies: Anxiety, Depression, Homicidal Ideations, Suicidal Ideations Hematologic/ Lymphatic: Denies: Easy Bruising, Easy Bleeding VTE Information - Inpt Only VTE Present on Admission: Yes VTE Pharm Prophylaxis ordered?: Yes Subjective: Examination is stable. He is awake and alert, oriented 3. Follows all commands. He has a very hoarse voice. There is a left central 7 and left hemiparesis which is stable. Tube is in place. No calf pain. - Physical Exam General: Alert, Oriented x3, Cooperative, No apparent distress Psych/Mental Status: Normal Affect Vital Signs Temp Pulse Resp BP Pulse Ox 36.8 C 78 17 126/68 H 95 03/18/18 10:00 03/18/18 10:00 03/18/18 10:00 03/18/18 10:00 03/18/18 10:00 Oxygen Delivery Method Room Air Weight: 61.6 kg Body Mass Index (BMI) 18.3 Intake and Output for Last 24 Hours Intake Total 1040 / 1040 520 / 520 Output Total 550 / 550 1000 / 1000 Balance 490 / 490 -480 / -480 Laboratory Tests Past 24 Hrs WBC 6.3 RBC 3.93 L Hgb 13.0 Hct 39.9 L Current Medications Acetaminophen 650 mg 03/17/18 18:22 03/18/18 08:53 Assessment/Plan All Active Problems (This Medical Record has been edited. Action required.) Aortic dissection (Acute) Acute right MCA stroke (Acute) Left hemiplegia (Acute) Acute kidney injury (Acute) Seizure disorder (Acute) Dysphagia (Acute) Vocal cord paralysis (Acute) Dysphagia (Acute) Debility due to pain, complex hospitalization including due to aneurysm of his aorta requiring a decompressive craniotomy, initially recovered but had a large right sided subdural hematoma which has remained stable and has not required further craniotomy or intervention. Now presents back to the rehab unit for rehabilitation so that he can return home. Plan: Physical therapy for gait and balance Occupational Therapy for ADLs Speech therapy for a aphasia and dysphasia As needed analgesics Bowel protocol DVT prophylaxis: Lovenox Seizure prophylaxis with Keppra and Vimpat PEG tube: Await speech therapy recommendations but if he is taking 100% of his p.o. intake we will hold his tube feeds. 03/19/18 1005 <Electronically signed by David Durant MD> Date David Durant MD Cosigner Signature: Date (if applicable) CC: Kaykay Beth MD; David Durant MD Signed CBC-COMPLETE BLOOD CNT Collected: 03/18/2018 Status: F Source: [place] NO DIFF 6:[address] [facility] REPOSITORY TYPE CODE TESTS RESULT OUT OF RANGE REFERENCE UNITS LAB L100.1000 4.4-11.0 K/mm3 Normal WBC 6.3 LAB L100.1200 4.6-6.2 M/mm3 Low RBC 3.93 LAB L100.1300 13.0-16.5 g/dl Normal HGB 13.0 LAB L100.1400 40-54 % Low HCT 39.9 LAB L100.1500 80-94 fL High MCV 101.5 LAB L100.1600 27.0-32.0 pg High MCH 33.1 LAB L100.1700 32-36 g/gl Normal MCHC 32.6 LAB L100.1810 11.6-14.6 % Normal RDW CV 13.9 LAB L100.1820 35.1-43.9 fl High RDW SD 52.4 LAB L100.1900 150-450 K/mm3 Normal PLT 243 LAB L100.2000 6.2-12.0 fl Normal MPV 8.8 Performed By: #### L100.0500 #### [facility] [address] [place], [address] BASIC METABOLIC Collected: 03/18/2018 Status: F Source: [place] PROFILE (BMP) 6:[address] [facility] REPOSITORY TYPE CODE TESTS RESULT OUT OF RANGE REFERENCE UNITS LAB L501.0100 74-106 mg/dL High GLU 113 Result Comment: Fasting Glucose result from 100 to 125 mg/dL suggests IMPAIRED HOMEOSTASIS per A.D.A. criteria. Please note revised GLUCOSE reference range effective 2017. LAB L501.1000 7-18 mg/dL Normal BUN 16 LAB L501.1100 0.70-1.30 mg/dL Low CREAT,SERUM 0.54 Result Comment: The validity of the calculated GFR AND GFRAA in patients over 70 years has not been determined. Clinical correlation is essential. LAB L501.1110 >60 mL/min Normal EST GFR 171 Result Comment: Non- GFR Calc LAB L501.1115 >60 mL/min Normal EST GFR - AA 206 Result Comment: GFR Calc LAB L501.1255 ml/min Normal Estimated CRCL 137.84 LAB L501.1300 10-20 RATIO High BUN/CRE 29.9 LAB L501.2200 8.5-10 mg/dL .1 CA Normal 8.7 LAB L501.5300 136-14 mmol/L 5 NA Normal 140 LAB L501.5600 3.5-5. mmol/L 1 K Normal 4.3 LAB L501.5900 98-107 mmol/L CL Normal 106 LAB L501.6100 21.0-3 mmol/L 2.0 CO2 Normal 29.0 LAB L501.6200 5-15 GAP Normal 5 Performed By: #### L500.2500 #### [facility] [address] [place], [address] DISCHARGE SUMMARY Observed: 03/14/2018 Status: F Source: [place] 6:[address] [facility] REPOSITORY [facility] Medical Records Department [address] [place] [address] Discharge Summary 03/14/18 1826 MR#: [id number] Acct: [id number] Name: JANAYJOSE Juan Escobar Rep #: [id number] : 1965 52 From: Andrew Talley MD PCP: Kaykay Beth MD Status: ADM IN Location: [place] [address] Discharge Date and Diagnosis Date of Admission: 03/06/18 Date of Discharge: 03/14/18 - Primary Discharge Diagnosis Right MCA stroke status post craniectomy and then recent cranioplasty with residual left-sided hemiparesis with new leftward midline shift of 13 mm and large subdural pneumocephalus with one third filled with fluid - Secondary Discharge Diagnosis Chronic Problems (This Medical Record has been edited. Action required.) Kidney stones (Chronic) Hypertension (Chronic) Asthma (Chronic) Depression (Chronic) Hospital Course and Treatment Summary of Care Provided: The patient is a 52 year old male with recent complicated past medical history including aortic dissection for which patient underwent surgery at [facility] which was complicated by a right MCA stroke in September 2017 status post decompressive craniectomy in September 2017 followed by vocal cord paralysis managed by ENT and subsequently had pneumonia and respiratory failure resulting into intubation in December 2017 and was discharged to TCU on 02/07/2018. Patient had PEG tube placement on 02/13/2018 and then was readmitted to [facility] on 03/17/2013 for cranioplasty and subsequently transferred to the inpatient rehab unit. Here, patient was supposed to start aspirin tomorrow a.m. and prior to that he required CT head to rule out bleed. CT head was done today and shows large right-sided subdural fluid and gas collection measuring 9.4 cm craniocaudal, 11.7 cm AP, 4.7 cm greatest depth of lenticular shaped collection. About one third filled with fluid. No acute blood. There is also subgaleal gas overlying the right craniectomy likely complicating with subdural pneumocephalus. There is midline shift of 13 mm leftward at the level of septum pellucidum. No evidence of osman herniation left cerebral hemisphere exhibits no acute process. In view of this new CT finding of midline shift and large right-sided subdural pneumocephalus, neurologist Dr. Downing advised transfer to [facility]. Seen and examined. Patient has postoperative chronic left inferior lateral quadrantanopsia. Left pupil is slightly dilated which is again chronic finding. PERRLA present. Right-sided chronic hemiplegia with contracture and spasticity Postoperative sutures of right cranioplasty Lungs: Air entry diminished bilateral bases. No crepitation or rhonchi. Heart S1-S2 regular, no murmur gallop rub. Overall, assessment and plan: 1.Right MCA stroke status post craniectomy and then recent cranioplasty with residual left-sided hemiparesis with new leftward midline shift of 13 mm and large subdural pneumocephalus with one third filled with fluid: Patient was admitted to the inpatient rehab unit where he is currently undergoing PT and OT. 2. Aortic dissection status post surgery. On metoprolol 3. Seizure disorder patient is on Keppra 4. DVT prophylaxis patient is a low molecular weight heparin I discussed the overall hospital course and clinical findings and CT findings with Dr. Collazo, the neurosurgeon in [facility] and he accepted the patient. Patient is in the process of being transferred when bed is available. Home Medications: Medications to take at Discharge Budesonide/Formoterol 80-4.5 [Symbicort 80-4.5 Mcg Inhaler] 2 puff INHALATION BID 10/07/17 Acetylcysteine [Mucomyst] 400 mg INHALATION Q6H.RT PRN vial.neb. 02/26/18 Ipratropium/Albuterol Sulfate [Duoneb] 3 ml INHALATION Q4H.RT PRN ampul.neb 02/26/18 Ampicillin Trihydrate 500 mg PO 4X/DAY 03/06/18 Baclofen [Lioresal] 10 mg PO TID 03/06/18 Hydrocortisone 2.5% Crm [Hytone] 1 applic TOPICAL BID 03/06/18 Levetiracetam [Keppra] 1,000 mg PO BID 03/06/18 Loratadine [Claritin] 10 mg PO DAILY 03/06/18 Melatonin 3 mg PO QHS 03/06/18 Menthol/Lanolin/Calamine/Znox [Calmoseptine Ointment] 1 applic TOPICAL 0600,2200 03/06/18 Methocarbamol [Robaxin-750] 750 mg PO TID PRN 03/06/18 Metoprolol Tartrate [Lopressor (beta john)] 25 mg PO BID 03/06/18 Oxycodone [Oxyir] 5 mg PO Q6H PRN PRN 03/06/18 Pantoprazole Sodium [Protonix] 40 mg PO DAILY 03/06/18 Polyethylene Glycol 3350 [Miralax] 17 gm PO DAILY PRN 03/06/18 Quetiapine Fumarate [Seroquel] 12.5 mg PO QHS 03/06/18 Senna [Senokot] 1 tablet PO BID PRN 03/06/18 Venlafaxine HCl [Effexor] 75 mg PO BID 03/06/18 busPIRone [Buspar] 10 mg PO BID 03/06/18 Primary Care Physician: Kaykay Beth MD [Primary Care Provider] - Medical Necessity - Tobacco Use Smoking Status: Former smoker Meaningful Use Info Meaningful Use Diagnoses (Choose all that apply): None applicable Code Visit Inpatient E AND M: 85932 Disch Hosp 03/14/18 304 <Electronically signed by Andrew Talley MD> Date Andrew Talley MD Cosigner Signature (if applicable): Date CC: Kaykay Beth MD; Andrew Talley MD Signed BRAIN/HEAD WITHOUT Observed: 03/14/2018 Status: F Source: [place] CONTRAST 12:[address] [facility] REPOSITORY [facility] Imaging Services [address] [place] [address] Brain/Head without Contrast MR#: [id number] Acct: [id number] Name: JOSE GUSTAFSON Jr. Rep #: [id number] : 1965 M 52 From: Heriberto Davenport MD PCP: Kaykay Beth MD Status: ADM IN Study: Brain/Head without Contrast Date of Exam: 03/14/18 Exam# [id number] Ordering Dr: Gilda Downing MD STUDY: CT BRAIN WITHOUT CONTRAST REASON FOR EXAM: Male, 52 years old. Right MCA stroke with craniectomy 10/10/2017. RADIATION DOSAGE (If Supplied By Facility): CTDIvol = ( 44.99 ) mGy, DLP = ( 829.85 ) mGycm TECHNIQUE: Transaxial CT imaging of the brain was performed without administration of intravenous contrast material. Coronal and sagittal 2-D MPR Individualized dose optimization techniques were used for this CT. COMPARISON: None. FINDINGS: Paranasal sinuses clear. Mastoid air cells and middle ear cavities clear. Right craniotomy, osseous structures otherwise unremarkable. Overlying the right craniectomy the scalp exhibits subgaleal gas, likely communicating with the subdural pneumocephalus. Subdural collection containing pneumocephalus and low-density fluid, craniocaudal dimension up to 9.4 cm, anterior-posterior 11.7 cm, greatest depth of the lenticular shaped collection 4.7 cm. About one third filled with fluid. No acute blood. Underlying the subdural collection, prominent region of encephalomalacia of the right MCA distribution consistent with old infarct. There is near-complete effacement of the right lateral ventricle due to mass effect. There is leftward midline shift at the level of the septum pellucidum of up to 13 mm. There is no evidence of osman herniation. Left cerebral hemisphere exhibits no significant interstitial changes, no acute process. CT/Brain/Head without Contrast IMPRESSION: There is a large right-sided subdural fluid and gas collection contributing to mass effect and midline shift overlying a region of prominent pneumocephalus from the old right MCA distribution infarct. Electronically Signed: Heriberto Davenport, at 16:48 EDT Tel , Service support , CC: Tawnya Downing MD; Kaykay Beth MD Silver Wrapper: Signed MODIFIED BARIUM Observed: 03/07/2018 Status: F Source: [place] SWALLOW STUDY 3:[address] [facility] REPOSITORY [facility] Speech Pathology [address] [place] [address] Modified Barium Swallow Study MR#: [id number] Acct: [id number] Name: JOSE GUSTAFSON Jr. Rep #: [id number] : 1965 52 From: Leonard Ye M.A., CFY-SERGER PRIMARY / SECONDARY DIAGNOSIS: dysphagia (R13.10) REFERRING PHYSICIAN: Dr. David Durant MD CURRENT DIET: regular textures, thin liquids DENTITION: WFL MENTAL STATUS: impaired RESPIRATORY STATUS: O2 via room air PREVIOUS MODIFIED BARIUM SWALLOW STUDY: 01/17/2018 MBS revealed moderate oropharyngeal dysphagia w/ slowed oral motor movement, impaired oral transit, posterior bolus loss, delayed pharyngeal swallow onset, mild pharyngeal residue, no aspiration or penetration, cleared for PO intake. 01/23/2018 MBS revealed mild oropharyngeal dysphagia, improved from previous study, cleared for dysphagia level 3 diet. 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 Patient known to this clinician from recent [facility] admission; recent admission at [facility] associated with aspiration pneumonia status post right middle cerebral artery cerebrovascular accident requiring decompressed right craniotomy (September 2017) with resulting left sided flaccidity; 01/17/2018 MBS revealed no aspiration / penetration; intubated 01/18/2018, traumatic SELF extubated 01/19/2018; repeat MBS on 01/23/2018 revealed no aspiration / penetration; despite this the Patient was made NPO with alternative means of nutrition due to clear aspiration risk. Patient was advanced to a regular textured, thin liquid diet; details rather cursory assessment with clear concerns for intolerance appreciated by staff, with recommendations to advance with objective means of assessment vs. clinical assessment at bedside warranted. ADDITIONAL OBJECTIVE ASSESSMENT RESULTS: 01/18/[address] revealed complete collapse / consolidation of the left lower lobe likely due to atelectasis from mucous plugging, although a component of infection cannot be excluded; scattered new cluster peribronchial nodule and airspace opacities, likely related to infection / bronchopneumonia; sequela of aspiration is possible. MEDICAL HISTORY: Prior aortic dissection repair (10/07/2017) with resulting cerebrovascular accident involving the cerebrum requiring decompressed right craniotomy (10/13/2017) with resulting right sided flaccidity, vocal fold paralysis, severe malnutrition initially requiring nasogastric tube supplementation and later percutaneous endoscopic gastrostomy (PEG) tube placement, acute hypoxia requiring intubation and tracheostomy tube placement (removed), asthma, hypertension, acute kidney injury, status post inguinal herniorrhaphy, kidney stones status post lithotripsy, depression, left ankle open reduction and internal fixation, left wrist open reduction and internal fixation, bilateral heel spur removal, tracheostomy. STUDY FINDINGS: Patient participated in a Modified Barium Swallow (MBS) study on 03/07/2018. Dr. Moreno was the radiologist present for this evaluation. This study was recorded in the lateral view and images were sent to PACs for storage. The following consistencies were presented to this patient for analysis of oropharyngeal swallow function: thin liquids, nectar thickened liquids, pudding, and a regular textured, Deborah Doone cookie. Results of the MBS are as follows: PENETRATION / ASPIRATION SCALE (CURRY): 1 = does not enter airway 2 = enters airway/above vocal folds/ejected 3 = enters airway/above vocal folds/not ejected 4 = enters airway/contacts vocal folds/ejected 5 = enters airway/contacts vocal folds/not ejected 6 = enters airway/below vocal folds/ejected 7 = enters airway/below vocal folds/not ejected despite effort 8 = enters airway/below vocal folds/no effort VIDEOFLOROSCOPIC SCALE SCORE (CURRY): Grade I = aspiration of material that has penetrated into the laryngeal vestibule, intact cough reflex Grade II = aspiration < 10 % of the bolus, intact cough reflex Grade III = aspiration of < 10 % of the bolus, reduced cough reflex or aspiration of > 10 % of the bolus, intact cough reflex Grade IV = aspiration of > 10 % of the bolus, reduced cough reflex PENETRATION / ASPIRATION SCALE (SCORE) WITH VIDEOFLOROSCOPIC SCALE SCORE: Thin liquid - 5 mL tsp.: 3 Thin liquids via cup (single sip): 1 Thin liquids via cup (single sip): 1 Thin liquids via cup (single sip): 1 Thin liquids via cup (single sip): 7 - Grade IV Thin liquids via cup (single sip): 1, 8* - Grade III Thin liquids via cup (chin tuck): 1 Thin liquids via cup (chin tuck): 1 Thin liquids via cup (chin tuck): 1 Largo thickened liquids via cup (chin tuck): 1 Largo thickened liquids via cup (chin tuck): 1 Largo thickened liquids via straw (chin tuck): 1 Largo thickened liquids via straw (chin tuck): 1 Pudding via spoon: 1 Pudding via spoon: 1 Regular textured cookie: 1 Largo thickened liquids via straw (chin tuck): 1 Largo thickened liquids via straw (chin tuck): 1 * denotes aspiration of previously penetrated materials * denotes obstruction of full view due to posture and movement IMPRESSION: DIAGNOSIS: moderate to severe oropharyngeal dysphagia (R13.12) ORAL PHASE CHARACTERIZED BY: LABIAL SEAL: consistent escape beyond mid chin TONGUE CONTROL DURING BOLUS MANIPULATION: posterior escape of greater than half of bolus BOLUS PREPARATION / MASTICATION: slow prolonged chewing/mashing with complete recollection BOLUS TRANSPORT / LINGUAL MOTION: slowed tongue motion ORAL RESIDUE: large residue collection on oral structures (lateral buccal cavity) PHARYNGEAL PHASE CHARACTERIZED BY: INITIATION OF PHARYNGEAL SWALLOW: bolus head in pyriforms at first hyoid excursion SOFT PALATE ELEVATION: no bolus between soft palate and pharyngeal wall LARYNGEAL ELEVATION: partial superior movement of thyroid cartilage/partial approximation of arytenoids cartilage to epiglottic petiole ANTERIOR HYOID EXCURSION: partial anterior movement EPIGLOTTIC MOVEMENT: partial epiglottic inversion LARYNGEAL VESTIBULE CLOSURE AT HEIGHT OF SWALLOW: incomplete laryngeal vestibule closure with narrow column of air/contrast in laryngeal vestibule PHARYNGEAL STRIPPING WAVE: pharyngeal stripping wave present / diminished PHARYNGOESOPHAGEAL SEGMENT OPENING: complete distension and complete duration with no obstruction of flow TONGUE BASE RETRACTION: trace column of contrast between tongue base and posterior pharyngeal wall PHARYNGEAL RESIDUE: intermittent collection of residue within or on pharyngeal structures (valleculae); overall trace residue within or on pharyngeal structures ESOPHAGEAL PHASE CHARACTERIZED BY: ESOPHAGEAL BOLUS CLEARANCE IN THE UPRIGHT POSITION: could not view EFFECTS OF TREATMENT STRATEGIES ATTEMPTED: Use of straw = effective Chin tuck posture = moderately effective Reduced bolus size = moderately effective Cough and reswallow = ineffective Cued expectoration = ineffective DIET TEXTURE RECOMMENDATIONS: Will recommend a pureed textured, nectar thickened liquid diet with continued supplementation via alternative means of nutrition per dietary recommendations. COMPENSATORY STRATEGIES RECOMMENDED: Direct supervision with repositioning as needed, chin tuck, check for buccal pocketing, reduced bolus volumes, straws with all liquids, seated upright at 90 degrees during PO intake, remain upright for 30-60 minutes post meal (GERD precaution), medications crushed with applesauce. INTERPRETATION OF RESULTS: Patient presents with moderate to severe oropharyngeal dysphagia (R13.12) secondary to a right middle cerebral artery cerebrovascular accident requiring decompressed right craniotomy complicated by vocal fold paralysis. Oral preparatory phase marked by mild mastication inefficiency with slow, effortful albeit effective mastication with insufficient labial control resulting in frequent and copious left sided anterior bolus loss. Oral transport phase marked by suboptimal lingual control with noted slowed rate of lingual movements and mild / intermittent undulations; premature bolus loss of rather significant quantities, with larger portions of the bolus resting adjacent to an unprotected laryngeal vestibule prior to deglutition; and poor oral clearance secondary to reduced intraoral strength and sensitivity resulting in buccal pocketing. Pharyngeal phase primarily marked by impaired pharyngeal swallow onset timing resulting in suboptimal bolus location upon swallow onset; and reduced closure of the airway during deglutition attributed to reduced hyolaryngeal excursion resulting in insufficient epiglottic inversion poor laryngeal vestibule closure / pressure / duration, with insufficient laryngeal vestibule pressure generated to expel penetrated material; all deficits directly contributing to prandial penetration without ejection and subsequent overt and silent aspiration events. All deficits controlled with bolus viscosity and volume adjustments in addition to execution of the chin tuck posture. Improved oral phase bolus containment with ingestion via straw vs. cup. Noted insufficient and inconsistent cough response generated to expel penetrated / aspirated material in response to laryngotracheal aspiration indicating significant dystussia vs. atussia. Patient noted to overtly aspirate during trials of thin liquids with larger volumes of laryngotracheal aspiration; though also noted to SILENTLY aspirate with small volumes of thin liquids (grade III with residual with the laryngeal vestibule from prior penetration / aspiration event), with clinical assessment at bedside relying on identification of classic overt signs and symptoms of aspiration unreliable. RECOMMENDATIONS: Would strongly discourage advancement past nectar thickened liquids without completion of a repeat modified barium swallow study due to the extent of aspirate identified that was both overt and SILENT in nature. Recommend a repeat modified barium swallow study within 4-6 weeks (if clinically appropriate) to further assess the presence and extent of silent and overt aspiration prior to advancement to thin liquids. Patient requires intensive skilled speech-language intervention targeting continued diet texture management; training and implementation of recommended compensatory strategies; training and implementation of recommended oropharyngeal strengthening exercises to facilitate improved labial control / strength, lingual control / strength, laryngeal vestibule closure / pressure, and to a lesser extent pharyngeal motility; and Patient / caregiver training targeting meal preparation / thickened liquid preparation if unable to advance to baseline diet textures prior to discharge (somewhat likely). Patient considered at high risk of fatigue with return to PO intake, would consider limitations on meal duration if deemed necessary at bedside. Would recommend thorough training and strict adherence to recommended aspiration precautions, as the Patient is considered at high risk of aspiration related pulmonary complications due to the presence and extent of aspiration that was both overt (larger volumes) and silent (reduced volumes) in nature, presence of bilateral vocal fold palsy both mechanical and neurological in nature, significance of dystussia vs. atussia, extent of neurological complications with cognitive deficits, left sided hemiplegia with the Patient functionally unable to ambulate or independently maintain upright seated positioning with aspiration consolidation also more likely to collect in the left lower lobes due to noted persistent left sided leaning. ADDITIONAL COMMENTS/RECOMMENDATIONS: Results and recommendations were discussed with the Patient immediately following MBS completion, with the Patient verbalizing understanding and agreement with all recommendations and education provided. IMAGE COUNT: [id number] Leonard Ye M.A., CCC-SERGER [facility] Speech-Language Pathology Department [email or web address] 03/07/18 1555 <Electronically signed by JAMAAL Salter M.A.> Date JAMAAL Salter M.A. Co-Signature Required for all Medicare patients Date/Time Co-Signature CC: HISTORY AND PHYSICAL Observed: 03/07/2018 Status: F Source: [place] EXAM 11:[address] [facility] REPOSITORY [facility] Medical Records Department [address] [place] [address] History and Physical 03/07/18 1044 MR#: [id number] Acct: [id number] Name: JOSE GUSTAFSON Jr. Rep #: [id number] : 1965 52 From: David Durant MD PCP: Kaykay Beth MD Status: ADM IN Y Location: [place] [address] History of Present Illness Date of Admission: 03/06/18 Chief Complaint: Debility The patient is a 52 year old M who presents to the rehab unit with debility after prolonged hospitalization. He was admitted to the TCU as below after prolonged hospitalization at [facility] [place]. Originally he had a ruptured aortic aneurysm causing a right MCA distribution infarct followed by decompressive craniotomy. His skull plate has been replaced however his hospitalization at the [facility] [place] was complicated by pneumonia. Eventually was transferred to the TCU where he has done well. He has been cleared for regular diet with thin liquids however his tube feedings have been continued and his appetite as a result has been suppressed. He also reports soreness over his sacrum and spasticity in his left lower extremity but no other complaints. staff accountant indicates that he has eaten all of his food this morning. He lives at home with his and children. There is a ramp to the main floor of the house. Per TCU admission H AND P from 02/07/18: Here for rehabilitation, strengthening, prior to discharge to [facility] for surgery. The patient is a 52 year old Male with below past medical history with followin10/07/2017 patient suffered aortic dissection which was surgically repaired. Post-operatively he suffered a right middle cerebral stroke requiring decompression craniotomy 10/13/2017. He has residual left hemiplegia. 01/16/2018 Patient developed cough, fever, respiratory failure secondary to H. Flu, and aspiration pneumonia. Intubated. 01/18/2018 Patient extubated. 01/31/2018 Transferred out of MICU. Swallow study showed high risk of aspiration, NPO. Tubefeeding via right nasal corpak. Patient suffered vocal cord paralysis. 02/20/2018 Admit to [facility] for vocal cord repair per ENT, and plate placement in head. 02/07/2018 Admit to TCU with debility, here for rehabilitation, strengthening, until surgery, then possible return to continue therapy. Past Medical History Past Medical History (Chronic Problems): Chronic Problems (This Medical Record has been edited. Action required.) Kidney stones (Chronic) Hypertension (Chronic) Asthma (Chronic) Depression (Chronic) Allergies cat dander Allergy (Verified 02/07/18 17:19) Unknown grass pollen Allergy (Verified 02/07/18 17:19) Itching Home Medications: Ambulatory Orders Medication Instructions Recorded Budesonide/Formoterol 80-4.5 2 puff INHALATION BID 10/07/17 [Symbicort 80-4.5 Mcg Inhaler] Acetylcysteine [Mucomyst] 400 mg INHALATION Q6H.RT PRN 02/26/18 Surgical History: herniorrhaphy - Inguinal., - - Aortic dissection repair 10/07/2017, Craniotomy 10/13/2017, Lithotripsy, Left ankle ORIF, Left wrist ORIF, Bilateral heel spur removal, Traceostomy. Psychiatric History: Anxiety, Depression Smoking Status: Former smoker - *Family History Maternal History Items: No pertinent history Paternal History Items: No pertinent history Review of Systems Constitutional: Denies: Chills, Fever, Weight Change HEENT: Denies: Head Aches, Sinus Congestion, Sinus Drainage Cardiovascular: Denies: Chest Pain, Palpitations Respiratory: Denies: Cough, Shortness of breath at rest, Sputum production Gastrointestinal: Denies: Abdominal Pain, Nausea, Vomiting Genitourinary: Denies: Dysuria Musculoskeletal: Reports: Leg Pain. Denies: Joint Pain, Joint Tenderness Skin: Denies: Rash, Wounds Neurological: Denies: Numbness, Tingling, Focal weakness Psychiatric: Denies: Anxiety, Depression, Homicidal Ideations, Suicidal Ideations Hematologic/ Lymphatic: Denies: Easy Bruising, Easy Bleeding VTE Information - Inpt Only VTE Present on Admission: Yes VTE Pharm Prophylaxis ordered?: Yes Objective: He is awake and alert. Oriented 3. Normal speech and language. He has chronic left hemiparesis with a left central 7 which is mild and mild decreased left visual field. Strength and sensation is normal on the right side. - Physical Exam Vital Signs Temp Pulse Resp BP Pulse Ox 36.7 C 60 16 135/88 H 96 03/06/18 12:38 03/07/18 07:56 03/06/18 21:19 03/06/18 21:19 03/07/18 07:00 Oxygen Delivery Method Room Air Weight: 63.5 kg Body Mass Index (BMI) 18.5 Intake and Output for Last 24 Hours Intake Total 280 / 280 210 / 210 Output Total 650 / 650 100 / 100 Balance -370 / -370 110 / 110 Laboratory Tests Past 24 Hrs WBC 6.4 RBC 3.70 L Hgb 12.3 L Hct 37.0 L Current Medications Generic Name Dose Route Start Last Admin Trade Name Freq PRN Reason Stop Dose Admin Acetaminophen 650 mg 03/06/18 14:43 03/07/18 09:52 Assessment/Plan All Active Problems (This Medical Record has been edited. Action required.) Aortic dissection (Acute) Acute right MCA stroke (Acute) Left hemiplegia (Acute) Acute kidney injury (Acute) Seizure disorder (Acute) Dysphagia (Acute) Vocal cord paralysis (Acute) Dysphagia (Acute) Early due to initially right MCA infarct complicated by prolonged hospitalization and pneumonia with PEG tube placement. He is now admitted to the rehab unit from the TCU in order to improve his functional status so that he can return home. Plan: Physical therapy for gait and balance Occupational Therapy for ADLs Speech therapy: Repeat swallow evaluation. Tube feedings has been held and he appears to be tolerating a p.o. diet well. We will decrease the free water through the PEG tube to keep open. DVT prophylaxis: Lovenox Bowel protocol As needed analgesics: Increase Flexeril as feasible for his left-sided spasticity. Anticonvulsants: This appears to be prophylactic will continue. 03/07/18 1156 <Electronically signed by David Durant MD> Date David Durant MD Cosigner Signature: Date (if applicable) CC: Kaykay Beth MD; David Durant MD Signed SWALLOWING FUNCTION Observed: 03/07/2018 Status: F Source: [place] W/VIDEO 8:[address] [facility] REPOSITORY [facility] Imaging Services [address] [place] [address] [place] [address] Swallowing Function w/Video MR#: [id number] Acct: [id number] Name: JOSE GUSTAFSON Jr. Rep #: [id number] : 1965 M 52 From: Jose Moreno MD PCP: Kaykay Beth MD Status: ADM IN Study: Swallowing Function w/Video Date of Exam: 03/07/18 Exam# [id number] Ordering Dr: David Durant MD STUDY: SWALLOWING STUDY REASON FOR EXAM: Male, 52 years old. Dysphagia. TECHNIQUE: The examination was performed with Speech Therapist and Radiologist in attendance. Under fluoroscopic observation, the patient ingested thin barium, thick barium, barium pudding, and barium coated cracker. FLUOROSCOPY TIME: 4:28 minutes/seconds Dose: 27.12 mGy RADIOLOGIST INVOLVEMENT: Present during the entire exam. COMPARISON: None available. FINDINGS: The following was observed during swallowing of the various mixtures of barium: Thin Barium: There are findings of aspiration and laryngeal penetration. Thick Barium: There was no findings of aspiration or laryngeal penetration. Barium Pudding: There was no finding of aspiration or laryngeal penetration. Barium Coated Cracker: There was no finding of aspiration or laryngeal penetration. RAD/Swallowing Function w/Video IMPRESSION: Abnormal tailored barium swallow study with aspiration not below the vocal cords (silent) with thin liquids. Increased risk for aspiration. The swallow study findings were discussed with the patient by the speech pathologist at the conclusion of the examination. Please see speech pathology report for more information and recommendations. The procedure was performed by speech therapist Leonard under the direct supervision of Dr. Moreno. Electronically Signed: Jose Moreno, at 18:01 EDT Tel , Service support , CC: Kaykay Beth MD; David Durant MD Silver Wrapper: Signed CBC-COMPLETE BLOOD CNT Collected: 03/07/2018 Status: F Source: [place] NO DIFF 5:[address] [facility] REPOSITORY TYPE CODE TESTS RESULT OUT OF RANGE REFERENCE UNITS LAB L100.1000 4.4-11.0 K/mm3 Normal WBC 6.4 LAB L100.1200 4.6-6.2 M/mm3 Low RBC 3.70 LAB L100.1300 13.0-16.5 g/dl Low HGB 12.3 LAB L100.1400 40-54 % Low HCT 37.0 LAB L100.1500 80-94 fL High MCV 100.0 LAB L100.1600 27.0-32.0 pg High MCH 33.2 LAB L100.1700 32-36 g/gl Normal MCHC 33.2 LAB L100.1810 11.6-14.6 % High RDW CV 14.9 LAB L100.1820 35.1-43.9 fl High RDW SD 54.4 LAB L100.1900 150-450 K/mm3 Normal PLT 270 LAB L100.2000 6.2-12.0 fl Normal MPV 8.6 Performed By: #### L100.0500 #### [facility] [address] [place], [address] BASIC METABOLIC Collected: 03/07/2018 Status: F Source: [place] PROFILE (BMP) 5:[address] [facility] REPOSITORY TYPE CODE TESTS RESULT OUT OF RANGE REFERENCE UNITS LAB L501.0100 74-106 mg/dL Normal GLU 82 Result Comment: Please note revised GLUCOSE reference range effective 2017. LAB L501.1000 7-18 mg/dL Normal BUN 12 LAB L501.1100 0.70-1.30 mg/dL Low CREAT,SERUM 0.54 Result Comment: The validity of the calculated GFR AND GFRAA in patients over 70 years has not been determined. Clinical correlation is essential. LAB L501.1110 >60 mL/min Normal EST GFR 168 Result Comment: Non- GFR Calc LAB L501.1115 >60 mL/min Normal EST GFR - AA 204 Result Comment: GFR Calc LAB L501.1255 ml/min Normal Estimated CRCL 152.16 LAB L501.1300 10-20 RATIO High BUN/CRE 22.2 LAB L501.2200 8.5-10 mg/dL .1 CA Normal 8.9 LAB L501.5300 136-14 mmol/L 5 NA Normal 144 LAB L501.5600 3.5-5. mmol/L 1 K Normal 4.0 LAB L501.5900 98-107 mmol/L CL Normal 105 LAB L501.6100 21.0-3 mmol/L 2.0 CO2 Normal 31.0 LAB L501.6200 5-15 GAP Normal 8 Performed By: #### L500.2500 #### [facility] [address] [place], [place], [address] BEDSIDE GLUCOSE Collected: 02/26/2018 Status: F Source: [place] 11:[address] [facility] REPOSITORY TYPE CODE TESTS RESULT OUT OF RANGE REFERENCE UNITS LAB L501.080 70-110 mg/dL Normal BEDSIDE GLU 109 Result Comment: MANAGEMENT OF PATIENT CARE PER NURSING PROTOCOL Performed By: #### L501.080 #### [facility] Point of Care [address] [place], [place] [address] DISCHARGE SUMMARY Observed: 02/26/2018 Status: F Source: [place] 8:[address] [facility] REPOSITORY [facility] Medical Records Department [address] [place] [address] Discharge Summary 02/26/18 0834 MR#: [id number] Acct: [id number] Name: JOSE GUSTAFSON Jr. Rep #: [id number] : 1965 52 From: Kaykay FERNANDES PCP: Kaykay Beth MD Status: ADM IN Y Location: [place] [address] Discharge Date and Diagnosis - Problem List Patient Problems: Active and Suspected Problems (This Medical Record has been edited. Action required.) Aortic dissection (Acute) Acute right MCA stroke (Acute) Left hemiplegia (Acute) Acute kidney injury (Acute) Seizure disorder (Acute) Dysphagia (Acute) Vocal cord paralysis (Acute) Dysphagia (Acute) Date of Admission: 02/07/18 Date of Discharge: 02/26/18 - Primary Discharge Diagnosis Active and Suspected Problems (This Medical Record has been edited. Action required.) Aortic dissection (Acute) Acute right MCA stroke (Acute) Left hemiplegia (Acute) Acute kidney injury (Acute) Seizure disorder (Acute) Dysphagia (Acute) Vocal cord paralysis (Acute) Dysphagia (Acute) - Secondary Discharge Diagnosis Chronic Problems (This Medical Record has been edited. Action required.) Kidney stones (Chronic) Hypertension (Chronic) Asthma (Chronic) Depression (Chronic) Hospital Course and Treatment Imaging Results: general surgery Summary of Care Provided: 52 year old male with below past medical history significant for aortic dissection, right MCA stroke requiring craniotomy, hospitalized for H. Flu/aspiration pneumonia, admitted to TCU with debility, here for rehabilitation, strengthening, prior to discharge to [facility] 02/26/18 for vocal cord repair, plate placement in head. Discharge Diet: - - peg tube feeds Discharge Activity: - - utilize helmet for protection Home Medications: Medications to take at Discharge Albuterol Sulfate [Proair Hfa] 1 puff INHALATION BID PRN 04/01/15 Fluticasone 110 Mcg [Flovent 110 Mcg] 2 puff INHALATION BID 04/01/15 Albuterol IH (ProAir) [Proair Hfa] 2 puff INHALATION Q6H PRN PRN 10/07/17 Budesonide/Formoterol 80-4.5 [Symbicort 80-4.5 Mcg Inhaler] 2 puff INHALATION BID 10/07/17 Acetaminophen Liquid [Tylenol Liquid] 650 mg GT Q6H PRN PRN udc 02/26/18 Acetylcysteine [Mucomyst] 400 mg INHALATION Q6H.RT PRN vial.neb. 02/26/18 Baclofen [Lioresal] 10 mg GT TID tablet 02/26/18 Famotidine [Pepcid] 40 mg GT DAILY tablet 02/26/18 Fluticasone/Salmeterol [Fluticasone-Salmeterol 232-14] 1 puff IH Q12 inhaler 02/26/18 Hydrocortisone 2.5% Crm [Hytone] 1 applic TOPICAL BID tube 02/26/18 Ipratropium/Albuterol Sulfate [Duoneb] 3 ml INHALATION Q4H.RT PRN ampul.neb 02/26/18 Lacosamide Solution [Vimpat Solution] 200 mg GT BID udc 02/26/18 Loratadine [Claritin] 10 mg GT DAILY tablet 02/26/18 Lorazepam [Ativan] 0.5 mg GT Q6H PRN PRN tablet 02/26/18 Melatonin 3 mg GT QHS tablet 02/26/18 Menthol/Lanolin/Calamine/Znox [Calmoseptine Ointment] 1 applic TOPICAL 0600,2200 tube 02/26/18 Metoprolol Tartrate [Lopressor (beta john)] 25 mg GT BID tablet 02/26/18 Mineral Oil 1 bottle RECTAL DAILY PRN enema 02/26/18 Ondansetron [Zofran Odt] 8 mg GT Q8H PRN PRN tablet 02/26/18 Oxycodone [Oxyir] 5 mg GT Q4H PRN PRN 7 Days tablet 02/26/18 Polyethylene Glycol 3350 [Miralax] 17 gm GT DAILY PRN packet 02/26/18 Quetiapine Fumarate [Seroquel] 12.5 mg GT QHS tablet 02/26/18 Senna [Senokot] 1 tablet GT BID PRN tablet 02/26/18 Venlafaxine HCl [Effexor] 75 mg GT BID tablet 02/26/18 busPIRone [Buspar] 10 mg GT BID tablet 02/26/18 Primary Care Physician: Kaykay Beth MD [Primary Care Provider] - Please follow up with your Primary Care Physician in: 1 week after d/c frm [facility] Please Follow Up With: Shabbir Pace Please Follow Up With: Nadia Kat Please Follow Up With: Jamie Moreno Disposition: Acute care Hospital Minutes spent on discharge:: 25 Patient Condition:: Good Medical Necessity - Tobacco Use Smoking Status: Former smoker Tobacco Use: Non-smoker Meaningful Use Info Meaningful Use Diagnoses (Choose all that apply): None applicable Code Visit Inpatient Dax MCNEILL M: 11737 SNF Disch 02/26/18 0842 <Electronically signed by Kaykay FERNANDES> Date Kaykay FERNANDES Cosigner Signature (if applicable): Date CC: Kaykay Beth MD; Kaykay Reyes NP Signed DISCHARGE INSTRUCTION Observed: 02/26/2018 Status: F Source: [place] 8:[address] [facility] REPOSITORY [facility] Medical Records Department [address] [place] [address] Instructions for Home/Discharge Instructions 02/26/18 0829 MR#: [id number] Acct: [id number] Name: JOSE GUSTAFSON Jr. Rep #: [id number] : 1965 52 From: Kaykay FERNANDES PCP: Kaykay Beth MD Status: ADM IN - Discharge Diagnoses Current Active Problems: Current Active and Chronic Problems (This Medical Record has been edited. Action required.) Aortic dissection (Acute) Acute right MCA stroke (Acute) Left hemiplegia (Acute) Acute kidney injury (Acute) Kidney stones (Chronic) Hypertension (Chronic) Asthma (Chronic) Seizure disorder (Acute) Dysphagia (Acute) Vocal cord paralysis (Acute) Depression (Chronic) Dysphagia (Acute) Reason(s) for Visit for Discharge Instructions: 52 year old male with below past medical history significant for aortic dissection, right MCA stroke requiring craniotomy, hospitalized for H. Flu/aspiration pneumonia, admitted to TCU with debility, here for rehabilitation, strengthening, prior to discharge to [facility] on 02/26/18 for vocal cord repair, plate placement in head. You will use the following diet at home:: Other - tube feeds Discharge Activity: - - utilize helmet for protection Allergies/Adverse Reactions: Allergies cat dander Allergy (Verified 02/07/18 17:19) Unknown grass pollen Allergy (Verified 02/07/18 17:19) Itching Medications to take at Discharge Albuterol Sulfate [Proair Hfa] 1 puff INHALATION BID PRN 04/01/15 Fluticasone 110 Mcg [Flovent 110 Mcg] 2 puff INHALATION BID 04/01/15 Albuterol IH (ProAir) [Proair Hfa] 2 puff INHALATION Q6H PRN PRN 10/07/17 Budesonide/Formoterol 80-4.5 [Symbicort 80-4.5 Mcg Inhaler] 2 puff INHALATION BID 10/07/17 Acetaminophen Liquid [Tylenol Liquid] 650 mg GT Q6H PRN PRN udc 02/26/18 Acetylcysteine [Mucomyst] 400 mg INHALATION Q6H.RT PRN vial.neb. 02/26/18 Baclofen [Lioresal] 10 mg GT TID tablet 02/26/18 Famotidine [Pepcid] 40 mg GT DAILY tablet 02/26/18 Fluticasone/Salmeterol [Fluticasone-Salmeterol 232-14] 1 puff IH Q12 inhaler 02/26/18 Hydrocortisone 2.5% Crm [Hytone] 1 applic TOPICAL BID tube 02/26/18 Ipratropium/Albuterol Sulfate [Duoneb] 3 ml INHALATION Q4H.RT PRN ampul.neb 02/26/18 Lacosamide Solution [Vimpat Solution] 200 mg GT BID udc 02/26/18 Loratadine [Claritin] 10 mg GT DAILY tablet 02/26/18 Lorazepam [Ativan] 0.5 mg GT Q6H PRN PRN tablet 02/26/18 Melatonin 3 mg GT QHS tablet 02/26/18 Menthol/Lanolin/Calamine/Znox [Calmoseptine Ointment] 1 applic TOPICAL 0600,2200 tube 02/26/18 Metoprolol Tartrate [Lopressor (beta john)] 25 mg GT BID tablet 02/26/18 Mineral Oil 1 bottle RECTAL DAILY PRN enema 02/26/18 Ondansetron [Zofran Odt] 8 mg GT Q8H PRN PRN tablet 02/26/18 Oxycodone [Oxyir] 5 mg GT Q4H PRN PRN 7 Days tablet 02/26/18 Polyethylene Glycol 3350 [Miralax] 17 gm GT DAILY PRN packet 02/26/18 Quetiapine Fumarate [Seroquel] 12.5 mg GT QHS tablet 02/26/18 Senna [Senokot] 1 tablet GT BID PRN tablet 02/26/18 Venlafaxine HCl [Effexor] 75 mg GT BID tablet 02/26/18 busPIRone [Buspar] 10 mg GT BID tablet 02/26/18 Primary Care Physician: Kaykay Beth MD [Primary Care Provider] - Please follow up with your Primary Care Physician in: 1 week after d/c frm [facility] Test Results: Test results from this visit will be discussed in further detail at your follow-up appointment, if applicable. Please Follow Up With: Shabbir Pace Please Follow Up With: Nadia Kat Please Follow Up With: Jamie Moreno Proposed Discharge Date: 02/26/18 02/26/18 0834 <Electronically signed by Kaykay FERNANDES> Date Kaykay FERNANDES CC: Kaykay Beth MD BEDSIDE GLUCOSE Collected: 02/26/2018 Status: F Source: MELANY 6:[address] [facility] REPOSITORY TYPE CODE TESTS RESULT OUT OF RANGE REFERENCE UNITS LAB L501.080 70-110 mg/dL Normal BEDSIDE GLU 103 Result Comment: MANAGEMENT OF PATIENT CARE PER NURSING PROTOCOL Performed By: #### L501.080 #### [facility] Point of Care [address] [place], [place] [id number] BEDSIDE GLUCOSE Collected: 02/26/2018 Status: F Source: MELANY 12:[address] [facility] REPOSITORY TYPE CODE TESTS RESULT OUT OF RANGE REFERENCE UNITS LAB L501.080 70-110 mg/dL Normal BEDSIDE GLU 104 Result Comment: MANAGEMENT OF PATIENT CARE PER NURSING PROTOCOL Performed By: #### L501.080 #### [facility] Point of Care [address] [place] [address] BEDSIDE GLUCOSE Collected: 02/25/2018 Status: F Source: MELANY 4:[address] [facility] REPOSITORY TYPE CODE TESTS RESULT OUT OF RANGE REFERENCE UNITS LAB L501.080 70-110 mg/dL Normal BEDSIDE GLU 93 Result Comment: MANAGEMENT OF PATIENT CARE PER NURSING PROTOCOL Performed By: #### L501.080 #### [facility] Point of Care [address] [place] [address] BEDSIDE GLUCOSE Collected: 02/25/2018 Status: F Source: MELANY 11:[address] [facility] REPOSITORY TYPE CODE TESTS RESULT OUT OF REFERENCE UNITS RANGE LAB L501.080 70-110 mg/dL High BEDSIDE GLU 124 Result Comment: MANAGEMENT OF PATIENT CARE PER NURSING PROTOCOL Performed By: #### L501.080 #### [facility] Point of Care [address] [place] [address] BEDSIDE GLUCOSE Collected: 02/25/2018 Status: F Source: MELANY 6:[address] [facility] REPOSITORY TYPE CODE TESTS RESULT OUT OF REFERENCE UNITS RANGE LAB L501.080 70-110 mg/dL High BEDSIDE GLU 116 Result Comment: MANAGEMENT OF PATIENT CARE PER NURSING PROTOCOL Performed By: #### L501.080 #### [facility] Point of Care [address] [place] [address] BEDSIDE GLUCOSE Collected: 02/25/2018 Status: F Source: MELANY 12:[address] [facility] REPOSITORY TYPE CODE TESTS RESULT OUT OF RANGE REFERENCE UNITS LAB L501.080 70-110 mg/dL Normal BEDSIDE GLU 104 Result Comment: MANAGEMENT OF PATIENT CARE PER NURSING PROTOCOL Performed By: #### L501.080 #### [facility] Point of Care [address] [place] [address] BEDSIDE GLUCOSE Collected: 02/24/2018 Status: F Source: MELANY 4:[address] [facility] REPOSITORY TYPE CODE TESTS RESULT OUT OF RANGE REFERENCE UNITS LAB L501.080 70-110 mg/dL Normal BEDSIDE GLU 94 Result Comment: Dr Riley Followed MANAGEMENT OF PATIENT CARE PER NURSING PROTOCOL Performed By: #### L501.080 #### [facility] Point of Care [address] [place] [address] BEDSIDE GLUCOSE Collected: 02/24/2018 Status: F Source: MELANY 11:[address] [facility] REPOSITORY TYPE CODE TESTS RESULT OUT OF REFERENCE UNITS RANGE LAB L501.080 70-110 mg/dL High BEDSIDE GLU 119 Result Comment: MANAGEMENT OF PATIENT CARE PER NURSING PROTOCOL Performed By: #### L501.080 #### [facility] Point of Care [address] [place] [address] BEDSIDE GLUCOSE Collected: 02/24/2018 Status: F Source: MELANY 6:[address] [facility] REPOSITORY TYPE CODE TESTS RESULT OUT OF REFERENCE UNITS RANGE LAB L501.080 70-110 mg/dL High BEDSIDE GLU 114 Result Comment: MANAGEMENT OF PATIENT CARE PER NURSING PROTOCOL Performed By: #### L501.080 #### [facility] Point of Care [address] [place] [address] BEDSIDE GLUCOSE Collected: 02/24/2018 Status: F Source: MELANY 12:[address] [facility] REPOSITORY TYPE CODE TESTS RESULT OUT OF RANGE REFERENCE UNITS LAB L501.080 70-110 mg/dL Normal BEDSIDE GLU 86 Result Comment: MANAGEMENT OF PATIENT CARE PER NURSING PROTOCOL Performed By: #### L501.080 #### [facility] Point of Care [address] [place] [address] BEDSIDE GLUCOSE Collected: 02/23/2018 Status: F Source: MELANY 5:[address] [facility] REPOSITORY TYPE CODE TESTS RESULT OUT OF RANGE REFERENCE UNITS LAB L501.080 70-110 mg/dL Normal BEDSIDE GLU 108 Result Comment: Dr Riley Followed MANAGEMENT OF PATIENT CARE PER NURSING PROTOCOL Performed By: #### L501.080 #### [facility] Point of Care [address] [place] [address] BEDSIDE GLUCOSE Collected: 02/23/2018 Status: F Source: MELANY 11:[address] [facility] REPOSITORY TYPE CODE TESTS RESULT OUT OF RANGE REFERENCE UNITS LAB L501.080 70-110 mg/dL Normal BEDSIDE GLU 101 Result Comment: MANAGEMENT OF PATIENT CARE PER NURSING PROTOCOL Performed By: #### L501.080 #### [facility] Point of Care [address] [place] [address] BEDSIDE GLUCOSE Collected: 02/23/2018 Status: F Source: MELANY 6:[address] [facility] REPOSITORY TYPE CODE TESTS RESULT OUT OF REFERENCE UNITS RANGE LAB L501.080 70-110 mg/dL High BEDSIDE GLU 123 Result Comment: Dr Orders Followed MANAGEMENT OF PATIENT CARE PER NURSING PROTOCOL Performed By: #### L501.080 #### [facility] Point of Care [address] [place] [address] BEDSIDE GLUCOSE Collected: 02/23/2018 Status: F Source: MELANY 12:[address] [facility] REPOSITORY TYPE CODE TESTS RESULT OUT OF RANGE REFERENCE UNITS LAB L501.080 70-110 mg/dL Normal BEDSIDE GLU 102 Result Comment: MANAGEMENT OF PATIENT CARE PER NURSING PROTOCOL Performed By: #### L501.080 #### [facility] Point of Care [address] [place] [address] BEDSIDE GLUCOSE Collected: 02/22/2018 Status: F Source: MELANY 4:[address] [facility] REPOSITORY TYPE CODE TESTS RESULT OUT OF RANGE REFERENCE UNITS LAB L501.080 70-110 mg/dL Normal BEDSIDE GLU 101 Result Comment: Dr Orders Followed MANAGEMENT OF PATIENT CARE PER NURSING PROTOCOL Performed By: #### L501.080 #### [facility] Point of Care [address] [place] [address] BEDSIDE GLUCOSE Collected: 02/22/2018 Status: F Source: MELANY 11:[address] [facility] REPOSITORY TYPE CODE TESTS RESULT OUT OF RANGE REFERENCE UNITS LAB L501.080 70-110 mg/dL Normal BEDSIDE GLU 101 Result Comment: MANAGEMENT OF PATIENT CARE PER NURSING PROTOCOL Performed By: #### L501.080 #### [facility] Point of Care [address] [place] [address] BEDSIDE GLUCOSE Collected: 02/22/2018 Status: F Source: MELANY 6:[address] [facility] REPOSITORY TYPE CODE TESTS RESULT OUT OF RANGE REFERENCE UNITS LAB L501.080 70-110 mg/dL Normal BEDSIDE GLU 94 Result Comment: Dr Riley Followed MANAGEMENT OF PATIENT CARE PER NURSING PROTOCOL Performed By: #### L501.080 #### [facility] Point [place] [address] CBC W/DIFF, AUTOMATED Collected: 02/22/2018 Status: F Source: [place] 6:[address] [facility] REPOSITORY TYPE CODE TESTS RESULT OUT OF RANGE REFERENCE UNITS LAB L100.1000 4.4-11.0 K/mm3 Normal WBC 7.5 LAB L100.1200 4.6-6.2 M/mm3 Low RBC 3.97 LAB L100.1300 13.0-16.5 g/dl Normal HGB 13.0 LAB L100.1400 40-54 % Low HCT 39.1 LAB L100.1500 80-94 fL High MCV 98.5 LAB L100.1600 27.0-32.0 pg High MCH 32.7 LAB L100.1700 32-36 g/gl Normal MCHC 33.2 LAB L100.1810 11.6-14.6 % High RDW CV 15.5 LAB L100.1820 35.1-43.9 fl High RDW SD 53.9 LAB L100.1900 150-450 K/mm3 Normal PLT 344 LAB L100.2000 6.2-12.0 fl Normal MPV 9.1 LAB L100.2100 47-70 % Normal NEUT% 60.2 LAB L100.2200 19-41 % Normal LY% 19.5 LAB L100.2300 0-10 % Normal MONO% 7.2 LAB L100.2400 0-5 % High EO% 11.8 LAB L100.2500 0-1 % Normal BASO% 0.8 LAB L100.2550 0.0-0.9 % Normal IM GRAN % 0.500 Result Comment: IG% - Immature Granulocytes (promyelocytes, myelocytes and metamyelocytes) > 1% indicates that a LEFT SHIFT is Present. LAB L100.2620 2.0-7.7 X10 3/uL Normal Absolute Neut 4.5 LAB L100.2720 0.83-4.51 X10 3/ul Normal Absolute Lymph 1.45 Performed By: #### L100.0100 #### [facility] [address] [place], [place], [address] BASIC METABOLIC Collected: 02/22/2018 Status: F Source: MELANY PROFILE (BMP) 6:[address] [facility] REPOSITORY TYPE CODE TESTS RESULT OUT OF RANGE REFERENCE UNITS LAB L501.0100 74-106 mg/dL Normal GLU 95 Result Comment: Please note revised GLUCOSE reference range effective 2017. LAB L501.1000 7-18 mg/dL Normal BUN 15 LAB L501.1100 0.70-1.30 mg/dL Low CREAT,SERUM 0.53 Result Comment: The validity of the calculated GFR AND GFRAA in patients over 70 years has not been determined. Clinical correlation is essential. LAB L501.1110 >60 mL/min Normal EST GFR 173 Result Comment: Non- GFR Calc LAB L501.1115 >60 mL/min Normal EST GFR - AA 209 Result Comment: GFR Calc LAB L501.1255 ml/min Normal Estimated CRCL 139.61 LAB L501.1300 10-20 RATIO High BUN/CRE 28.4 LAB L501.2200 8.5-10 mg/dL .1 CA Normal 9.0 LAB L501.5300 136-14 mmol/L 5 NA Normal 144 LAB L501.5600 3.5-5. mmol/L 1 K Normal 4.0 LAB L501.5900 98-107 mmol/L CL Normal 106 LAB L501.6100 21.0-3 mmol/L 2.0 CO2 Normal 31.0 LAB L501.6200 5-15 GAP Normal 7 Performed By: #### L500.2500 #### [facility] [address] [place], [address] BEDSIDE GLUCOSE Collected: 02/22/2018 Status: F Source: MELANY 12:[address] [facility] REPOSITORY TYPE CODE TESTS RESULT OUT OF RANGE REFERENCE UNITS LAB L501.080 70-110 mg/dL Normal BEDSIDE GLU 101 Result Comment: MANAGEMENT OF PATIENT CARE PER NURSING PROTOCOL Performed By: #### L501.080 #### [facility] Point of Care [address] [facility] [place] [address] BEDSIDE GLUCOSE Collected: 02/21/2018 Status: F Source: [place]ELANY 11:[address] [facility] REPOSITORY TYPE CODE TESTS RESULT OUT OF RANGE REFERENCE UNITS LAB L501.080 70-110 mg/dL Normal BEDSIDE GLU 109 Result Comment: MANAGEMENT OF PATIENT CARE PER NURSING PROTOCOL Performed By: #### L501.080 #### [facility] Point of Care [address] [place] [address] BEDSIDE GLUCOSE Collected: 02/21/2018 Status: F Source: MELANY 6:[address] [facility] REPOSITORY TYPE CODE TESTS RESULT OUT OF REFERENCE UNITS RANGE LAB L501.080 70-110 mg/dL High BEDSIDE GLU 128 Result Comment: Dr Osvaldo Followed MANAGEMENT OF PATIENT CARE PER NURSING PROTOCOL Performed By: #### L501.080 #### [facility] Point of Care [address] [place] [address] BEDSIDE GLUCOSE Collected: 02/21/2018 Status: F Source: [place]EL[place] 12:[address] [facility] REPOSITORY TYPE CODE TESTS RESULT OUT OF RANGE REFERENCE UNITS LAB L501.080 70-110 mg/dL Normal BEDSIDE GLU 107 Result Comment: MANAGEMENT OF PATIENT CARE PER NURSING PROTOCOL Performed By: #### L501.080 #### [facility] Point of Care [address] [place] [address] BEDSIDE GLUCOSE Collected: 02/20/2018 Status: F Source: MELANY 5:[address] [facility] REPOSITORY TYPE CODE TESTS RESULT OUT OF RANGE REFERENCE UNITS LAB L501.080 70-110 mg/dL Normal BEDSIDE GLU 106 Result Comment: MANAGEMENT OF PATIENT CARE PER NURSING PROTOCOL Performed By: #### L501.080 #### [facility] Point of Care [address] [place] [address] BEDSIDE GLUCOSE Collected: 02/20/2018 Status: F Source: MELANY 11:[address] [facility] REPOSITORY TYPE CODE TESTS RESULT OUT OF RANGE REFERENCE UNITS LAB L501.080 70-110 mg/dL Normal BEDSIDE GLU 99 Result Comment: MANAGEMENT OF PATIENT CARE PER NURSING PROTOCOL Performed By: #### L501.080 #### [facility] Point of Care [address] [place] [address] BEDSIDE GLUCOSE Collected: 02/20/2018 Status: F Source: [place]ELANY 6:[address] [facility] REPOSITORY TYPE CODE TESTS RESULT OUT OF RANGE REFERENCE UNITS LAB L501.080 70-110 mg/dL Normal BEDSIDE GLU 97 Result Comment: MANAGEMENT OF PATIENT CARE PER NURSING PROTOCOL Performed By: #### L501.080 #### [facility] Point of Care [address] [place] [address] BEDSIDE GLUCOSE Collected: 02/20/2018 Status: F Source: [place]EL[place] 12:[address] [facility] REPOSITORY TYPE CODE TESTS RESULT OUT OF REFERENCE UNITS RANGE LAB L501.080 70-110 mg/dL High BEDSIDE GLU 120 Result Comment: MANAGEMENT OF PATIENT CARE PER NURSING PROTOCOL Performed By: #### L501.080 #### [facility] Point of Care [address] [place] [address] BEDSIDE GLUCOSE Collected: 02/19/2018 Status: F Source: MELANY 4:[address] [facility] REPOSITORY TYPE CODE TESTS RESULT OUT OF RANGE REFERENCE UNITS LAB L501.080 70-110 mg/dL Normal BEDSIDE GLU 105 Result Comment: MANAGEMENT OF PATIENT CARE PER NURSING PROTOCOL Performed By: #### L501.080 #### [facility] Point of Care [address] [place] [address] BEDSIDE GLUCOSE Collected: 02/19/2018 Status: F Source: [place]EL[place] 11:[address] [facility] REPOSITORY TYPE CODE TESTS RESULT OUT OF RANGE REFERENCE UNITS LAB L501.080 70-110 mg/dL Normal BEDSIDE GLU 93 Result Comment: MANAGEMENT OF PATIENT CARE PER NURSING PROTOCOL Performed By: #### L501.080 #### [facility] Point of Care [address] [place] [address] BEDSIDE GLUCOSE Collected: 02/19/2018 Status: F Source: [place]EL[place] 6:[address] [facility] REPOSITORY TYPE CODE TESTS RESULT OUT OF REFERENCE UNITS RANGE LAB L501.080 70-110 mg/dL High BEDSIDE GLU 125 Result Comment: MANAGEMENT OF PATIENT CARE PER NURSING PROTOCOL Performed By: #### L501.080 #### [facility] Point of Care [address] [place] [address] BEDSIDE GLUCOSE Collected: 02/18/2018 Status: F Source: [place]ELANY 11:[address] [facility] REPOSITORY TYPE CODE TESTS RESULT OUT OF RANGE REFERENCE UNITS LAB L501.080 70-110 mg/dL Normal BEDSIDE GLU 103 Result Comment: MANAGEMENT OF PATIENT CARE PER NURSING PROTOCOL Performed By: #### L501.080 #### [facility] Point of Care [address] [place] [address] BEDSIDE GLUCOSE Collected: 02/18/2018 Status: F Source: [place]EL[place] 4:[address] [facility] REPOSITORY TYPE CODE TESTS RESULT OUT OF REFERENCE UNITS RANGE LAB L501.080 70-110 mg/dL High BEDSIDE GLU 111 Result Comment: MANAGEMENT OF PATIENT CARE PER NURSING PROTOCOL Performed By: #### L501.080 #### [facility] Point of Care [address] [place] [address] BEDSIDE GLUCOSE Collected: 02/18/2018 Status: F Source: [place]EL[place] 11:[address] [facility] REPOSITORY TYPE CODE TESTS RESULT OUT OF RANGE REFERENCE UNITS LAB L501.080 70-110 mg/dL Normal BEDSIDE GLU 100 Result Comment: MANAGEMENT OF PATIENT CARE PER NURSING PROTOCOL Performed By: #### L501.080 #### [facility] Point of Care [address] [place] [address] BEDSIDE GLUCOSE Collected: 02/18/2018 Status: F Source: [place]EL[place] 7:[address] [facility] REPOSITORY TYPE CODE TESTS RESULT OUT OF RANGE REFERENCE UNITS LAB L501.080 70-110 mg/dL Normal BEDSIDE GLU 103 Result Comment: MANAGEMENT OF PATIENT CARE PER NURSING PROTOCOL Performed By: #### L501.080 #### [facility] Point of Care [address] [place] [address] BEDSIDE GLUCOSE Collected: 02/18/2018 Status: F Source: [place]EL[place] 12:[address] [facility] REPOSITORY TYPE CODE TESTS RESULT OUT OF REFERENCE UNITS RANGE LAB L501.080 70-110 mg/dL High BEDSIDE GLU 116 Result Comment: MANAGEMENT OF PATIENT CARE PER NURSING PROTOCOL Performed By: #### L501.080 #### [facility] Point of Care [address] [place] [address] BEDSIDE GLUCOSE Collected: 02/17/2018 Status: F Source: MEL[place] 4:[address] [facility] REPOSITORY TYPE CODE TESTS RESULT OUT OF REFERENCE UNITS RANGE LAB L501.080 70-110 mg/dL High BEDSIDE GLU 122 Result Comment: MANAGEMENT OF PATIENT CARE PER NURSING PROTOCOL Performed By: #### L501.080 #### [facility] Point of Care [address] [place] [address] BEDSIDE GLUCOSE Collected: 02/17/2018 Status: F Source: MEL[place] 11:[address] [facility] REPOSITORY TYPE CODE TESTS RESULT OUT OF REFERENCE UNITS RANGE LAB L501.080 70-110 mg/dL High BEDSIDE GLU 115 Result Comment: MANAGEMENT OF PATIENT CARE PER NURSING PROTOCOL Performed By: #### L501.080 #### [facility] Point of Care [address] [place] [address] BEDSIDE GLUCOSE Collected: 02/17/2018 Status: F Source: [place]EL[place] 6:[address] [facility] REPOSITORY TYPE CODE TESTS RESULT OUT OF REFERENCE UNITS RANGE LAB L501.080 70-110 mg/dL High BEDSIDE GLU 119 Result Comment: MANAGEMENT OF PATIENT CARE PER NURSING PROTOCOL Performed By: #### L501.080 #### [facility] Point of Care [address] [place] [address] BEDSIDE GLUCOSE Collected: 02/17/2018 Status: F Source: [place]EL[place] 12:[address] [facility] REPOSITORY TYPE CODE TESTS RESULT OUT OF RANGE REFERENCE UNITS LAB L501.080 70-110 mg/dL Normal BEDSIDE GLU 97 Result Comment: MANAGEMENT OF PATIENT CARE PER NURSING PROTOCOL Performed By: #### L501.080 #### [facility] Point of Care [address] [place] [address] BEDSIDE GLUCOSE Collected: 02/16/2018 Status: F Source: [place]EL[place] 4:[address] [facility] REPOSITORY TYPE CODE TESTS RESULT OUT OF RANGE REFERENCE UNITS LAB L501.080 70-110 mg/dL Normal BEDSIDE GLU 107 Result Comment: MANAGEMENT OF PATIENT CARE PER NURSING PROTOCOL Performed By: #### L501.080 #### [facility] Point of Care [address] [place] [address] BEDSIDE GLUCOSE Collected: 02/16/2018 Status: F Source: [place]EL[place] 10:[address] [facility] REPOSITORY TYPE CODE TESTS RESULT OUT OF REFERENCE UNITS RANGE LAB L501.080 70-110 mg/dL High BEDSIDE GLU 127 Result Comment: MANAGEMENT OF PATIENT CARE PER NURSING PROTOCOL Performed By: #### L501.080 #### [facility] Point of Care [address] [place] [address] BEDSIDE GLUCOSE Collected: 02/16/2018 Status: F Source: [place]EL[place] 6:[address] [facility] REPOSITORY TYPE CODE TESTS RESULT OUT OF RANGE REFERENCE UNITS LAB L501.080 70-110 mg/dL Normal BEDSIDE GLU 98 Result Comment: MANAGEMENT OF PATIENT CARE PER NURSING PROTOCOL Performed By: #### L501.080 #### [facility] Point of Care [address] [place] [address] BEDSIDE GLUCOSE Collected: 02/16/2018 Status: F Source: [place]EL[place] 12:[address] [facility] REPOSITORY TYPE CODE TESTS RESULT OUT OF RANGE REFERENCE UNITS LAB L501.080 70-110 mg/dL Normal BEDSIDE GLU 99 Result Comment: MANAGEMENT OF PATIENT CARE PER NURSING PROTOCOL Performed By: #### L501.080 #### [facility] Point of Care [address] [place] [address] BEDSIDE GLUCOSE Collected: 02/15/2018 Status: F Source: [place]EL[place] 4:[address] [facility] REPOSITORY TYPE CODE TESTS RESULT OUT OF RANGE REFERENCE UNITS LAB L501.080 70-110 mg/dL Normal BEDSIDE GLU 93 Result Comment: MANAGEMENT OF PATIENT CARE PER NURSING PROTOCOL Performed By: #### L501.080 #### [facility] Point of Care [address] [place] [address] BEDSIDE GLUCOSE Collected: 02/15/2018 Status: F Source: [place] 11:[address] [facility] REPOSITORY TYPE CODE TESTS RESULT OUT OF RANGE REFERENCE UNITS LAB L501.080 70-110 mg/dL Normal BEDSIDE GLU 92 Result Comment: MANAGEMENT OF PATIENT CARE PER NURSING PROTOCOL Performed By: #### L501.080 #### [facility] Point [place] [address] CBC W/DIFF, AUTOMATED Collected: 02/15/2018 Status: F Source: [place] 7:[address] [facility] REPOSITORY TYPE CODE TESTS RESULT OUT OF RANGE REFERENCE UNITS LAB L100.1000 4.4-11.0 K/mm3 Normal WBC 7.1 LAB L100.1200 4.6-6.2 M/mm3 Low RBC 3.70 LAB L100.1300 13.0-16.5 g/dl Low HGB 12.2 LAB L100.1400 40-54 % Low HCT 36.1 LAB L100.1500 80-94 fL High MCV 97.6 LAB L100.1600 27.0-32.0 pg High MCH 33.0 LAB L100.1700 32-36 g/gl Normal MCHC 33.8 LAB L100.1810 11.6-14.6 % High RDW CV 15.3 LAB L100.1820 35.1-43.9 fl High RDW SD 52.1 LAB L100.1900 150-450 K/mm3 Normal PLT 370 LAB L100.2000 6.2-12.0 fl Normal MPV 9.2 LAB L100.2100 47-70 % Normal NEUT% 58.4 LAB L100.2200 19-41 % Normal LY% 21.9 LAB L100.2300 0-10 % Normal MONO% 8.2 LAB L100.2400 0-5 % High EO% 10.3 LAB L100.2500 0-1 % Normal BASO% 0.8 LAB L100.2550 0.0-0.9 % Normal IM GRAN % 0.400 Result Comment: IG% - Immature Granulocytes (promyelocytes, myelocytes and metamyelocytes) > 1% indicates that a LEFT SHIFT is Present. LAB L100.2620 2.0-7.7 X10 3/uL Normal Absolute Neut 4.2 LAB L100.2720 0.83-4.51 X10 3/ul Normal Absolute Lymph 1.56 Performed By: #### L100.0100 #### [facility] [address] [place], [place], [address] BASIC METABOLIC Collected: 02/15/2018 Status: F Source: [place] PROFILE (BMP) 7:[address] [facility] REPOSITORY TYPE CODE TESTS RESULT OUT OF RANGE REFERENCE UNITS LAB L501.0100 74-106 mg/dL Normal GLU 101 Result Comment: Fasting Glucose result from 100 to 125 mg/dL suggests IMPAIRED HOMEOSTASIS per A.D.A. criteria. Please note revised GLUCOSE reference range effective 2017. LAB L501.1000 7-18 mg/dL Normal BUN 13 LAB L501.1100 0.70-1.30 mg/dL Low CREAT,SERUM 0.54 Result Comment: The validity of the calculated GFR AND GFRAA in patients over 70 years has not been determined. Clinical correlation is essential. LAB L501.1110 >60 mL/min Normal EST GFR 168 Result Comment: Non- GFR Calc LAB L501.1115 >60 mL/min Normal EST GFR - AA 203 Result Comment: GFR Calc LAB L501.1255 ml/min Normal Estimated CRCL 136.01 LAB L501.1300 10-20 RATIO High BUN/CRE 24.0 LAB L501.2200 8.5-10 mg/dL .1 CA Normal 9.0 LAB L501.5300 136-14 mmol/L 5 NA Normal 143 LAB L501.5600 3.5-5. mmol/L 1 K Normal 4.0 LAB L501.5900 98-107 mmol/L CL Normal 105 LAB L501.6100 21.0-3 mmol/L 2.0 CO2 Normal 31.0 LAB L501.6200 5-15 GAP Normal 7 Performed By: #### L500.2500 #### [facility] [address] [place], [place], [address] BEDSIDE GLUCOSE Collected: 02/15/2018 Status: F Source: [place] 6:[address] [facility] REPOSITORY TYPE CODE TESTS RESULT OUT OF REFERENCE UNITS RANGE LAB L501.080 70-110 mg/dL High BEDSIDE GLU 118 Result Comment: MANAGEMENT OF PATIENT CARE PER NURSING PROTOCOL Performed By: #### L501.080 #### [facility] Point of Care [address] [place] [address] BEDSIDE GLUCOSE Collected: 02/15/2018 Status: F Source: [place] 12:[address] [facility] REPOSITORY TYPE CODE TESTS RESULT OUT OF RANGE REFERENCE UNITS LAB L501.080 70-110 mg/dL Normal BEDSIDE GLU 93 Result Comment: MANAGEMENT OF PATIENT CARE PER NURSING PROTOCOL Performed By: #### L501.080 #### [facility] Point of Care [address] [place] [address] BEDSIDE GLUCOSE Collected: 02/14/2018 Status: F Source: [place]EL[place] 4:[address] [facility] REPOSITORY TYPE CODE TESTS RESULT OUT OF RANGE REFERENCE UNITS LAB L501.080 70-110 mg/dL Normal BEDSIDE GLU 95 Result Comment: MANAGEMENT OF PATIENT CARE PER NURSING PROTOCOL Performed By: #### L501.080 #### [facility] Point of Care [address] [place] [address] BEDSIDE GLUCOSE Collected: 02/14/2018 Status: F Source: [place]EL[place] 11:[address] [facility] REPOSITORY TYPE CODE TESTS RESULT OUT OF REFERENCE UNITS RANGE LAB L501.080 70-110 mg/dL High BEDSIDE GLU 117 Result Comment: MANAGEMENT OF PATIENT CARE PER NURSING PROTOCOL Performed By: #### L501.080 #### [facility] Point of Care [address] [place] [address] BEDSIDE GLUCOSE Collected: 02/14/2018 Status: F Source: [place] 6:[address] [facility] REPOSITORY TYPE CODE TESTS RESULT OUT OF REFERENCE UNITS RANGE LAB L501.080 70-110 mg/dL High BEDSIDE GLU 144 Result Comment: MANAGEMENT OF PATIENT CARE PER NURSING PROTOCOL Performed By: #### L501.080 #### [facility] Point of Care [address] [place] [address] BEDSIDE GLUCOSE Collected: 02/14/2018 Status: F Source: [place] 12:[address] [facility] REPOSITORY TYPE CODE TESTS RESULT OUT OF RANGE REFERENCE UNITS LAB L501.080 70-110 mg/dL Normal BEDSIDE GLU 97 Result Comment: MANAGEMENT OF PATIENT CARE PER NURSING PROTOCOL Performed By: #### L501.080 #### [facility] Point of Care [address] [place] [address] BEDSIDE GLUCOSE Collected: 02/13/2018 Status: F Source: [place] 4:[address] [facility] REPOSITORY TYPE CODE TESTS RESULT OUT OF RANGE REFERENCE UNITS LAB L501.080 70-110 mg/dL Normal BEDSIDE GLU 90 Result Comment: MANAGEMENT OF PATIENT CARE PER NURSING PROTOCOL Performed By: #### L501.080 #### [facility] Point of Care [address] [place] [address] OPERATIVE REPORT Observed: 02/13/2018 Status: F Source: [place] 11:[address] [facility] REPOSITORY [facility] Medical Records Department [address] [place] [address] Operative Report 02/13/18 1150 MR#: [id number] Acct: [id number] Name: JANAYJOSE Juan Escobar Rep #: [id number] : 1965 52 From: Liana Goodman MD PCP: Kirit NAQVI,Kaykay Status: [facility] Y Location: [place] [address] Problem List (1) Dysphagia Status: Acute Qualifiers: Dysphagia type: unspecified Qualified Code(s): R13.10 - Dysphagia, unspecified Report of Operation Date of Procedure: 02/13/18 Pre-Operative Diagnosis: r13.10 dysphasia Post-Operative Diagnosis: Same Surgery/Procedure Performed:: Percutaneous endoscopic gastrostomy tube placement with the esophagogastroduodenoscopy Type of Anesthesia:: MAC Anesthesiologist: Jennie Presley Description of Procedure: Patient was brought into the endoscopy suite. Placed in the left lateral decubitus position slightly supine. Back of his throat was sprayed with benzocaine spray. Bite-block was placed. Graded anesthesia was given. Scope was inserted in the back of the oropharynx directed down through the esophagus and into the stomach and into the duodenum without difficulty duodenum and stomach and esophagus all appeared normal without signs of ulcerations or masslike lesions. Previous PEG tube site was identified I inflated the abdomen was palpated it was decided that just superior to where his previous PEG tube was placed was where I would place the new PEG tube site. This was marked appropriately. The abdominal wall was sterilely prepped and draped in usual fashion. Local was injected. A skin temo was made. Angiocatheter was placed through the skin temo into the stomach and a guidewire was placed through this angiocatheter. This was grasped with a lasso and brought back through the oropharynx. PEG tube was attached to this guidewire and the PEG tube was then brought back through the oropharynx and through the abdominal wall. Scope was reinserted into the oropharynx and directed down through the esophagus into the stomach or photograph was obtained of the PEG tube being a good placement. T-bar was applied locking cap was applied and end cap was then applied. Sterile dressings were applied. The patient tolerated the procedure well. - Admit VTE Documentation VTE Present on Admission: No VTE Mechan Device Prophylaxis: None VTE Pharm Prophylaxis ordered?: No Reason prophylaxis not ordered:: Treatment Not Indicated 02/13/18 1154 <Electronically signed by Liana Goodman MD> Date Liana Goodman MD CC: Liana Goodman MD; Kaykay Beth MD; Luis Puga MD Signed CONSULTATION Observed: 02/13/2018 Status: F Source: [place] 11:25 [facility] Medical Records Department [address] [place] [address] Consultation 02/13/18 0844 MR#: [id number] Acct: [id number] Name: JOSE GUSTAFSON Jr. Rep #: [id number] : 1965 52 From: Amie Coronel PA-C PCP: Kaykay Beth MD Status: ADM IN Y Location: [facility] TCU07-1 Problem List (1) Dysphagia Status: Acute (2) Left hemiplegia Status: Acute Reason for Consult Date of Consultation: 02/13/18 Reason for Consultation: Dysphagia. History of Present Illness: The patient is a 52 year old M who presents from the [facility] following an aortic dissection complicated by a stroke. Patient noted on 10/07 he had an aortic dissection and was transferred from [place] to [facility]. He had a stroke on 10/13 which left him with left hemiplegia. He went to a rehab facility in [place] and was readmitted on 01/16 with pneumonia. He was intubated that hospitalization. He developed vocal cord paralysis. He had a swallowing study done which noted high risk for aspiration. A Dobbhoff was placed. He was discharged and transferred to TCU on 02/07. Patient has no use of his left arm. He notes he is able to take a few steps with assistance of the railing. He has bowel and bladder sensation. Patient notes he had a PEG tube previously, which was removed 2 month ago. Patient notes only other abdominal surgery is a pediatric left inguinal hernia repair when he was a baby. Past Medical History Past Medical History (Chronic Problems): Chronic Problems (This Medical Record has been edited. Action required.) Kidney stones (Chronic) Hypertension (Chronic) Asthma (Chronic) Depression (Chronic) Allergies cat dander Allergy (Verified 02/07/18 17:19) Unknown grass pollen Allergy (Verified 02/07/18 17:19) Itching Home Medications: Ambulatory Orders Medication Instructions Recorded Albuterol Sulfate [Proair Hfa] 1 puff INHALATION BID PRN 04/01/15 Surgical History: herniorrhaphy - Inguinal., - - Aortic dissection repair 10/07/2017, Craniotomy 10/13/2017, Lithotripsy, Left ankle ORIF, Left wrist ORIF, Bilateral heel spur removal, Traceostomy. Psychiatric History: Anxiety, Depression Lives: Spouse/ Significant Other Smoking Status: Former smoker Tobacco Use: Non-smoker Alcohol: Occasional Drugs: None - *Family History Maternal History Items: No pertinent history Paternal History Items: No pertinent history Review of Systems Constitutional: Reports: Anorexia, Weakness, Weight Change HEENT: Denies: Head Aches, Sinus Congestion, Sinus Drainage Cardiovascular: Denies: Chest Pain, Palpitations Respiratory: Denies: Cough, Shortness of breath at rest, Sputum production Gastrointestinal: Reports: - - Notes tailbone pain. Denies: Abdominal Pain, Nausea, Vomiting Genitourinary: Denies: Dysuria Musculoskeletal: Denies: Joint Pain, Joint Tenderness Skin: Reports: Skin Changes - Redness of the tailbone region Neurological: Reports: Balance problems, Change in Speech, Difficulty swallowing, Seizures Psychiatric: Reports: Anxiety, Depression. Denies: Homicidal Ideations, Suicidal Ideations Hematologic/ Lymphatic: Reports: Anemia, Easy Bruising. Denies: Hx of blood clot Patient Problems: Active and Suspected Problems (This Medical Record has been edited. Action required.) Aortic dissection (Acute) Acute right MCA stroke (Acute) Left hemiplegia (Acute) Acute kidney injury (Acute) Seizure disorder (Acute) Dysphagia (Acute) Vocal cord paralysis (Acute) Dysphagia (Acute) - Physical Exam General: Alert, Oriented x3, Cooperative HEENT: PERRLA, - - Concave region of right side head from recent surgery Neck: Supple, No JVD, Negative Carotid Bruits Lungs: Clear to auscultation, Diminished - bilateral lower lungs Cardiovascular: Regular rate, No murmurs Abdomen: Bowel Sounds Present, Soft, Non Tender, Non-Distended, - - Nicely healed previous PEG tube site Extremities: No clubbing, No cyanosis, No edema, - - Bilateral lower leg atrophy Skin: - - Irritation at the tailbone region. No ulcer noted. Musculoskeletal: Muscle Wasting Neurological: Unsteady Gait, - - Loss of function/movement of left upper extremity Psych/Mental Status: Anxious Vital Signs Temp Pulse Resp BP Pulse Ox 98.0 F 83 16 105/78 97 02/12/18 16:00 02/13/18 06:55 02/13/18 06:55 02/12/18 16:00 02/12/18 16:00 Oxygen Delivery Method Room Air Weight: 133 lb 15.987 oz Body Mass Index (BMI) 18.1 Intake and Output for Last 24 Hours Intake Total 3835 / 3835 2338 / 2338 Output Total 375 / 375 150 / 150 Balance 3460 / 3460 2188 / 2188 POC Glucose POC Glucose 104 90 98 POC Glucose 111 H Assessment/Plan All Active Problems (This Medical Record has been edited. Action required.) Aortic dissection (Acute) Acute right MCA stroke (Acute) Left hemiplegia (Acute) Acute kidney injury (Acute) Seizure disorder (Acute) Dysphagia (Acute) Vocal cord paralysis (Acute) Dysphagia (Acute) I have been consulted in conjunction with Dr. Goodman Impression: Dysphagia. Vocal cord paralysis. Hx aortic dissection. Right MCA stroke. Left hemiparalysis. Plan: Discussed patient with Dr. Goodman. Dr. Goodman will plan to perform a Percutaneous endoscopic gastrostomy today. Procedure details, risks and benefits have been explained and reviewed. Patient has had the opportunity to ask and have questions answered. Patient verbally understands and agrees with the plan. Thank you for allowing me to participate in this patient's care. My recommendations will be available via electronic medical records. Code Visit Office Visits / Consults: [id number] IP Consult L3 02/13/18 1125 <Electronically signed by Amie Coronel PA-C> Date Amie Coronel PA-C Cosigner Signature (if applicable): Date CC: Kaykay Beth MD; Luis Puga MD Signed BEDSIDE GLUCOSE Collected: 02/13/2018 Status: F Source: [place] 6:[address] [facility] REPOSITORY TYPE CODE TESTS RESULT OUT OF RANGE REFERENCE UNITS LAB L501.080 70-110 mg/dL Normal BEDSIDE GLU 104 Result Comment: MANAGEMENT OF PATIENT CARE PER NURSING PROTOCOL Performed By: #### L501.080 #### [facility] Point of Care [address] [place] [address] BEDSIDE GLUCOSE Collected: 02/13/2018 Status: F Source: [place] 12:[address] [facility] REPOSITORY TYPE CODE TESTS RESULT OUT OF RANGE REFERENCE UNITS LAB L501.080 70-110 mg/dL Normal BEDSIDE GLU 90 Result Comment: MANAGEMENT OF PATIENT CARE PER NURSING PROTOCOL Performed By: #### L501.080 #### [place] [facility] Point of Care [address] [place] [address] BEDSIDE GLUCOSE Collected: 02/12/2018 Status: F Source: [place] 5:[address] [facility] REPOSITORY TYPE CODE TESTS RESULT OUT OF RANGE REFERENCE UNITS LAB L501.080 70-110 mg/dL Normal BEDSIDE GLU 98 Result Comment: MANAGEMENT OF PATIENT CARE PER NURSING PROTOCOL Performed By: #### L501.080 #### [facility] Point of Care [address] [place] [address] BEDSIDE GLUCOSE Collected: 02/12/2018 Status: F Source: [place] 11:[address] [facility] REPOSITORY TYPE CODE TESTS RESULT OUT OF REFERENCE UNITS RANGE LAB L501.080 70-110 mg/dL High BEDSIDE GLU 111 Result Comment: Dr Osvaldo Followed MANAGEMENT OF PATIENT CARE PER NURSING PROTOCOL Performed By: #### L501.080 #### [facility] Point of Care [address] [place] [address] BEDSIDE GLUCOSE Collected: 02/12/2018 Status: F Source: [place] 6:[address] [facility] REPOSITORY TYPE CODE TESTS RESULT OUT OF RANGE REFERENCE UNITS LAB L501.080 70-110 mg/dL Normal BEDSIDE GLU 106 Result Comment: MANAGEMENT OF PATIENT CARE PER NURSING PROTOCOL Performed By: #### L501.080 #### [facility] Point of Care [address] [place] [address] BEDSIDE GLUCOSE Collected: 02/12/2018 Status: F Source: [place] 12:[address] [facility] REPOSITORY TYPE CODE TESTS RESULT OUT OF RANGE REFERENCE UNITS LAB L501.080 70-110 mg/dL Normal BEDSIDE GLU 104 Result Comment: MANAGEMENT OF PATIENT CARE PER NURSING PROTOCOL Performed By: #### L501.080 #### [facility] Point of Care [address] [place] [address] BEDSIDE GLUCOSE Collected: 02/11/2018 Status: F Source: [place] 4:[address] [facility] REPOSITORY TYPE CODE TESTS RESULT OUT OF RANGE REFERENCE UNITS LAB L501.080 70-110 mg/dL Normal BEDSIDE GLU 109 Result Comment: MANAGEMENT OF PATIENT CARE PER NURSING PROTOCOL Performed By: #### L501.080 #### [facility] Point of Care [address] [place] [address] BEDSIDE GLUCOSE Collected: 02/11/2018 Status: F Source: [place] 11:[address] [facility] REPOSITORY TYPE CODE TESTS RESULT OUT OF REFERENCE UNITS RANGE LAB L501.080 70-110 mg/dL High BEDSIDE GLU 117 Result Comment: MANAGEMENT OF PATIENT CARE PER NURSING PROTOCOL Performed By: #### L501.080 #### [facility] Point of Care [address] [place] [address] BEDSIDE GLUCOSE Collected: 02/11/2018 Status: F Source: [place] 6:[address] [facility] REPOSITORY TYPE CODE TESTS RESULT OUT OF REFERENCE UNITS RANGE LAB L501.080 70-110 mg/dL High BEDSIDE GLU 116 Result Comment: MANAGEMENT OF PATIENT CARE PER NURSING PROTOCOL Performed By: #### L501.080 #### [facility] Point of Care [address] [place] [address] BEDSIDE GLUCOSE Collected: 02/11/2018 Status: F Source: [place] 12:[address] [facility] REPOSITORY TYPE CODE TESTS RESULT OUT OF REFERENCE UNITS RANGE LAB L501.080 70-110 mg/dL High BEDSIDE GLU 116 Result Comment: MANAGEMENT OF PATIENT CARE PER NURSING PROTOCOL Performed By: #### L501.080 #### [facility] Point of Care [address] [place] [address] BEDSIDE GLUCOSE Collected: 02/10/2018 Status: F Source: [place] 4:[address] [facility] REPOSITORY TYPE CODE TESTS RESULT OUT OF RANGE REFERENCE UNITS LAB L501.080 70-110 mg/dL Normal BEDSIDE GLU 109 Result Comment: Dr Orders Followed MANAGEMENT OF PATIENT CARE PER NURSING PROTOCOL Performed By: #### L501.080 #### [facility] Point of Care [address] [place] [address] BEDSIDE GLUCOSE Collected: 02/10/2018 Status: F Source: [place] 11:[address] [facility] REPOSITORY TYPE CODE TESTS RESULT OUT OF REFERENCE UNITS RANGE LAB L501.080 70-110 mg/dL High BEDSIDE GLU 125 Result Comment: MANAGEMENT OF PATIENT CARE PER NURSING PROTOCOL Performed By: #### L501.080 #### [facility] Point of Care [address] [place] [address] BEDSIDE GLUCOSE Collected: 02/10/2018 Status: F Source: [place] 6:[address] [facility] REPOSITORY TYPE CODE TESTS RESULT OUT OF RANGE REFERENCE UNITS LAB L501.080 70-110 mg/dL Normal BEDSIDE GLU 105 Result Comment: MANAGEMENT OF PATIENT CARE PER NURSING PROTOCOL Performed By: #### L501.080 #### [facility] Point of Care [address] [place] [address] BEDSIDE GLUCOSE Collected: 02/10/2018 Status: F Source: [place] 12:[address] [facility] REPOSITORY TYPE CODE TESTS RESULT OUT OF REFERENCE UNITS RANGE LAB L501.080 70-110 mg/dL High BEDSIDE GLU 121 Result Comment: MANAGEMENT OF PATIENT CARE PER NURSING PROTOCOL Performed By: #### L501.080 #### [facility] Point of Care [address] [place] [address] BEDSIDE GLUCOSE Collected: 02/09/2018 Status: F Source: [place] 9:[address] [facility] REPOSITORY TYPE CODE TESTS RESULT OUT OF REFERENCE UNITS RANGE LAB L501.080 70-110 mg/dL High BEDSIDE GLU 115 Result Comment: MANAGEMENT OF PATIENT CARE PER NURSING PROTOCOL Performed By: #### L501.080 #### [facility] Point of Care [address] [place] [address] BEDSIDE GLUCOSE Collected: 02/09/2018 Status: F Source: [place] 5:[address] [facility] REPOSITORY TYPE CODE TESTS RESULT OUT OF REFERENCE UNITS RANGE LAB L501.080 70-110 mg/dL High BEDSIDE GLU 114 Result Comment: MANAGEMENT OF PATIENT CARE PER NURSING PROTOCOL Performed By: #### L501.080 #### [facility] Point of Care [address] [place] [address] BEDSIDE GLUCOSE Collected: 02/09/2018 Status: F Source: [place] 11:[address] [facility] REPOSITORY TYPE CODE TESTS RESULT OUT OF RANGE REFERENCE UNITS LAB L501.080 70-110 mg/dL Normal BEDSIDE GLU 105 Result Comment: MANAGEMENT OF PATIENT CARE PER NURSING PROTOCOL Performed By: #### L501.080 #### [facility] Point of Care [address] [place] [address] BEDSIDE GLUCOSE Collected: 02/09/2018 Status: F Source: [place] 7:[address] [facility] REPOSITORY TYPE CODE TESTS RESULT OUT OF REFERENCE UNITS RANGE LAB L501.080 70-110 mg/dL High BEDSIDE GLU 121 Result Comment: MANAGEMENT OF PATIENT CARE PER NURSING PROTOCOL Performed By: #### L501.080 #### [facility] Point of Care [address] [place] [address] BEDSIDE GLUCOSE Collected: 02/09/2018 Status: F Source: [place] 12:[address] [facility] REPOSITORY TYPE CODE TESTS RESULT OUT OF RANGE REFERENCE UNITS LAB L501.080 70-110 mg/dL Normal BEDSIDE GLU 109 Result Comment: MANAGEMENT OF PATIENT CARE PER NURSING PROTOCOL Performed By: #### L501.080 #### [facility] Point of Care [address] [place] [address] BEDSIDE GLUCOSE Collected: 02/08/2018 Status: F Source: [place] 4:[address] [facility] REPOSITORY TYPE CODE TESTS RESULT OUT OF REFERENCE UNITS RANGE LAB L501.080 70-110 mg/dL High BEDSIDE GLU 126 Result Comment: MANAGEMENT OF PATIENT CARE PER NURSING PROTOCOL Performed By: #### L501.080 #### [facility] Point of Care [address] [place] [address] BEDSIDE GLUCOSE Collected: 02/08/2018 Status: F Source: [place] 11:[address] [facility] REPOSITORY TYPE CODE TESTS RESULT OUT OF RANGE REFERENCE UNITS LAB L501.080 70-110 mg/dL Normal BEDSIDE GLU 110 Result Comment: MANAGEMENT OF PATIENT CARE PER NURSING PROTOCOL Performed By: #### L501.080 #### [facility] Point of Care [address] [place] [address] HISTORY AND PHYSICAL Observed: 02/08/2018 Status: F Source: [place] EXAM 10:[address] [facility] REPOSITORY [facility] Medical Records Department [address] [place] [address] History and Physical 02/07/18 1729 MR#: [id number] Acct: [id number] Name: JANAYJOSE Juan Escobar Rep #: [id number] : 1965 52 From: Luis Puga MD PCP: Kaykay Beth MD Status: ADM IN Y Location: [place] [address] Problem List (1) Aortic dissection Status: Acute (2) Acute right MCA stroke Status: Acute (3) Left hemiplegia Status: Acute (4) Acute kidney injury Status: Acute (5) Kidney stones Status: Chronic (6) Hypertension Status: Chronic (7) Asthma Status: Chronic (8) Seizure disorder Status: Acute (9) Dysphagia Status: Acute (10) Vocal cord paralysis Status: Acute (11) Depression Status: Chronic History of Present Illness Date of Admission: 02/07/18 Chief Complaint: Here for rehabilitation, strengthening, prior to discharge to [facility] for surgery. The patient is a 52 year old Male with below past medical history with followin10/07/2017 patient suffered aortic dissection which was surgically repaired. Post-operatively he suffered a right middle cerebral stroke requiring decompression craniotomy 10/13/2017. He has residual left hemiplegia. 01/16/2018 Patient developed cough, fever, respiratory failure secondary to H. Flu, and aspiration pneumonia. Intubated. 01/18/2018 Patient extubated. 01/31/2018 Transferred out of MICU. Swallow study showed high risk of aspiration, NPO. Tubefeeding via right nasal corpak. Patient suffered vocal cord paralysis. 02/20/2018 Admit to [facility] for vocal cord repair per ENT, and plate placement in head. 02/07/2018 Admit to TCU with debility, here for rehabilitation, strengthening, until surgery, then possible return to continue therapy. Past Medical History Past Medical History (Chronic Problems): Chronic Problems (This Medical Record has been edited. Action required.) Kidney stones (Chronic) Hypertension (Chronic) Asthma (Chronic) Depression (Chronic) Allergies cat dander Allergy (Verified 02/07/18 17:19) Unknown grass pollen Allergy (Verified 02/07/18 17:19) Itching Home Medications: Ambulatory Orders Medication Instructions Recorded Albuterol Sulfate [Proair Hfa] 1 puff INHALATION BID PRN 04/01/15 Surgical History: herniorrhaphy - Inguinal., - - Aortic dissection repair 10/07/2017, Craniotomy 10/13/2017, Lithotripsy, Left ankle ORIF, Left wrist ORIF, Bilateral heel spur removal, Traceostomy. Psychiatric History: Anxiety, Depression Lives: Spouse/ Significant Other Smoking Status: Former smoker Tobacco Use: Non-smoker Alcohol: Occasional Drugs: None - *Family History Maternal History Items: No pertinent history Paternal History Items: No pertinent history Review of Systems Constitutional: Denies: Chills, Fever, Weight Change HEENT: Denies: Head Aches, Sinus Congestion, Sinus Drainage Cardiovascular: Denies: Chest Pain, Palpitations Respiratory: Denies: Cough, Shortness of breath at rest, Sputum production Gastrointestinal: Denies: Abdominal Pain, Nausea, Vomiting Genitourinary: Denies: Dysuria Musculoskeletal: Denies: Joint Pain, Joint Tenderness Skin: Denies: Rash, Wounds Neurological: Denies: Numbness, Tingling, Focal weakness Psychiatric: Denies: Anxiety, Depression, Homicidal Ideations, Suicidal Ideations Hematologic/ Lymphatic: Denies: Easy Bruising, Easy Bleeding VTE Information - Inpt Only VTE Present on Admission: No VTE Mechan Device Prophylaxis: Knee High SYLVIA Hose VTE Pharm Prophylaxis ordered?: Yes Patient Problems: Active and Suspected Problems (This Medical Record has been edited. Action required.) Aortic dissection (Acute) Acute right MCA stroke (Acute) Left hemiplegia (Acute) Acute kidney injury (Acute) Seizure disorder (Acute) Dysphagia (Acute) Vocal cord paralysis (Acute) - Physical Exam General: Alert, Oriented x3, Cooperative HEENT: Atraumatic, PERRLA, EOMI, Normocephalic, - - Right nares Corpak. Neck: Supple, No JVD, Negative Carotid Bruits Lungs: Clear to auscultation, Normal air movement Cardiovascular: Regular rate, No murmurs Abdomen: Bowel Sounds Present, Soft, Non Tender Extremities: No edema, Capillary Refill Less than 3 Seconds Skin: No rashes, No breakdown Musculoskeletal: No Tenderness to Palpation of Joints or Extremities Neurological: Cranial nerves II-XII grossly intact, - - Dense left hemiplegia. Psych/Mental Status: Normal Affect, Appropriate Vital Signs Temp Pulse Resp BP Pulse Ox 99.1 F 69 20 H 130/72 H 94 02/07/18 17:03 02/07/18 17:03 02/07/18 17:03 02/07/18 17:03 02/07/18 17:03 Oxygen Delivery Method Room Air Weight: 122.271 kg POC Glucose POC Glucose 110 Assessment/Plan All Active Problems (This Medical Record has been edited. Action required.) Aortic dissection (Acute) Acute right MCA stroke (Acute) Left hemiplegia (Acute) Acute kidney injury (Acute) Seizure disorder (Acute) Dysphagia (Acute) Vocal cord paralysis (Acute) 52 year old male with below past medical history significant for aortic dissection, right MCA stroke requiring craniotomy, hospitalized for H. Flu/aspiration pneumonia, admitted to TCU with debility, here for rehabilitation, strengthening, prior to discharge to [facility] 02/20/2018 for vocal cord repair, plate placement in head. * Debility - PT/OT. * Dysphagia - ST. * Pain - Tylenol 650MG Q6H PRN mild pain. * Bowel - Colace 100MG BID, Miralax 17GM daily, Mineral Oil 1 bottle MS daily. * Pneumonia vaccination - Administer Prevnar 13 and/or Pneumovax 23 as necessary. * DVT prophylaxis - Lovenox 40MG SC daily. * Muscle spasm - Baclofen 10MG TID. * Anxiety - Buspar 10MG BID. * Skin irritation - Eucerin BID bilateral heels/legs, Calmoseptine BID bilateral buttocks. * GERD - Famotidine 40MG daily, Sodium bicarbonate 325MG daily PRN. * Asthma - Advair 1 puff Q12H, Duoneb 3ML Q4H PRN, Mucomyst 400MG Q6H. * Seizure disorder - Vimpat 200MG BID. * Allergic Rhinitis - Loratadine 10MG daily. * Anxiety - Ativan 0.5MG Q6H PRN. * Insomnia - Melatonin 3MG QHS. * Hypertension - Metoprolol 25MG BID. * Nausea - Zofran ODT 8MG Q8H PRN. * Nutrition - Osmolite 1.2 75cc/hour via Corpak. * Behavioral problem secondary to stroke - Seroquel 25MG QHS, Gradual dose reduction to 12.5MG in 1 week. * Depression - Venlafaxine 75MG BID. 02/08/18 1006 <Electronically signed by Luis Puga MD> Date Luis Puga MD Cosigner Signature: Date (if applicable) CC: Kaykay Beth MD; Luis Puga MD Signed BEDSIDE GLUCOSE Collected: 02/08/2018 Status: F Source: [place] 6:[address] [facility] REPOSITORY TYPE CODE TESTS RESULT OUT OF REFERENCE UNITS RANGE LAB L501.080 70-110 mg/dL High BEDSIDE GLU 139 Result Comment: Dr Riley Followed MANAGEMENT OF PATIENT CARE PER NURSING PROTOCOL Performed By: #### L501.080 #### [facility] Point of Care [address] [place] [address] BASIC METABOLIC Collected: 02/08/2018 Status: F Source: [place] PROFILE (BMP) 6:[address] [facility] REPOSITORY TYPE CODE TESTS RESULT OUT OF RANGE REFERENCE UNITS LAB L501.0100 74-106 mg/dL Normal GLU 102 Result Comment: Fasting Glucose result from 100 to 125 mg/dL suggests IMPAIRED HOMEOSTASIS per A.D.A. criteria. Please note revised GLUCOSE reference range effective 2017. LAB L501.1000 7-18 mg/dL High BUN 20 LAB L501.1100 0.70-1.30 mg/dL Low CREAT,SERUM 0.58 Result Comment: The validity of the calculated GFR AND GFRAA in patients over 70 years has not been determined. Clinical correlation is essential. LAB L501.1110 >60 mL/min Normal EST GFR 155 Result Comment: Non- GFR Calc LAB L501.1115 >60 mL/min Normal EST GFR - AA 187 Result Comment: GFR Calc LAB L501.1255 ml/min Normal Estimated CRCL 126.63 LAB L501.1300 10-20 RATIO High BUN/CRE 34.3 LAB L501.2200 8.5-10 mg/dL .1 CA Normal 8.8 LAB L501.5300 136-14 mmol/L 5 NA Normal 143 LAB L501.5600 3.5-5. mmol/L 1 K Normal 4.1 LAB L501.5900 98-107 mmol/L CL Normal 103 LAB L501.6100 21.0-3 mmol/L 2.0 CO2 Normal 31.0 LAB L501.6200 5-15 GAP Normal 9 Performed By: #### L500.2500 #### [facility] [address] [place], [place], [address] CBC W/DIFF, AUTOMATED Collected: 02/08/2018 Status: F Source: [place] 6:[address] [facility] REPOSITORY TYPE CODE TESTS RESULT OUT OF RANGE REFERENCE UNITS LAB L100.1000 4.4-11.0 K/mm3 High WBC 12.4 LAB L100.1200 4.6-6.2 M/mm3 Low RBC 4.02 LAB L100.1300 13.0-16.5 g/dl Low HGB 12.6 LAB L100.1400 40-54 % Low HCT 38.9 LAB L100.1500 80-94 fL High MCV 96.8 LAB L100.1600 27.0-32.0 pg Normal MCH 31.3 LAB L100.1700 32-36 g/gl Normal MCHC 32.4 LAB L100.1810 11.6-14.6 % High RDW CV 14.8 LAB L100.1820 35.1-43.9 fl High RDW SD 51.7 LAB L100.1900 150-450 K/mm3 Normal PLT 269 LAB L100.2000 6.2-12.0 fl Normal MPV 9.3 LAB L100.2100 47-70 % High NEUT% 77.9 LAB L100.2200 19-41 % Low LY% 12.3 LAB L100.2300 0-10 % Normal MONO% 6.5 LAB L100.2400 0-5 % Normal EO% 2.7 LAB L100.2500 0-1 % Normal BASO% 0.3 LAB L100.2550 0.0-0.9 % Normal IM GRAN % 0.300 Result Comment: IG% - Immature Granulocytes (promyelocytes, myelocytes and metamyelocytes) > 1% indicates that a LEFT SHIFT is Present. LAB L100.2620 2.0-7.7 X10 3/uL High Absolute Neut 9.6 LAB L100.2720 0.83-4.51 X10 3/ul Normal Absolute Lymph 1.52 Performed By: #### L100.0100 #### [facility] [address] [place], [address] BEDSIDE GLUCOSE Collected: 02/07/2018 Status: F Source: [place] 5:[address] [facility] REPOSITORY TYPE CODE TESTS RESULT OUT OF RANGE REFERENCE UNITS LAB L501.080 70-110 mg/dL Normal BEDSIDE GLU 110 Result Comment: MANAGEMENT OF PATIENT CARE PER NURSING PROTOCOL Performed By: #### L501.080 #### [facility] Point of Care [address] [place] [address] NURSING PROG Observed: 01/22/2018 Status: COMPLETED Source: [place] 12:29 PM [facility] REPOSITORY HNO ID: [id number] Author: Albertina (Rn) Dyllan RN Service: (none) Author Type: Registered Nurse Type: Nursing Progress Note Filed: 01/22/2018 12:30 PM Note Text: Nursing Progress Note Patient Name: Jose Gustafson Patient Location: [place] [address] 1224: Patient appears calmer, but still requiring soft wrist restraints. No longer lashing out at staff. Dr Cuellar, changed restraint order to non-violent. See documentation flowsheet. Sitter at bedside updated to necessary interventions for non-violent restraints. This note was completed by: Albertina Mijares RN PROCEDURE Observed: 01/22/2018 Status: COMPLETED Source: [place] 12:19 PM [facility] REPOSITORY HNO ID: [id number] Author: Elizabeth RobertsRn) Ryan, RN Service: NST-Nutrition Support Team Author Type: Registered Nurse Type: Procedures Filed: 01/22/2018 12:21 PM Note Text: NUTRITION SUPPORT TEAM TOPIC: BEDSIDE POST-PYLORIC FEEDING TUBE PLACEMENT PATIENT NAME: Jose Gustafson DATE OF : 1965 SERVICE DATE: 01/22/2018 Consult: Consultation received from Primary care service for placement of a post-pyloric feeding tube. The indication for a feeding tube is Prior documented aspiration event. Time Out: Patient verification was done by Elizabeth Davis RN. The patient/patient's personal authorization representative is aware of procedure. Verification of necessary equipment needed for small bowel feeding tube has been completed by Elizabeth Davis RN. Patient placed in supine position with head of bed elevated. Procedure: The procedure was completed Existing feeding tube clogged. Removed and applied 2% lidocaine to left and right nares. Placed a #10 Fr 43 inch Corpak tube was placed via the left nares, under direct visualization using the Cortrak 2 monitor. The tip position as per the Cortrak 2 device is estimated to be in the stomach. The guidewire was removed. An [employer] nasal bridle was placed at the end of the procedure. Clip secured at 70 cm kaykay. The stylet was removed. Based on Cortrak 2 images: Recommendation is that tube is OK to use. Communicated to ordering service. Complications: The patient experienced no complications. Impression AND Plan: Successful placement of a gastric feeding tube. Primary care service notified. Procedure performed by Elizabeth Davis RN . PLAN OF CARE Observed: 01/22/2018 Status: COMPLETED Source: [place] 12:01 PM [facility] REPOSITORY [facility] ID: [id number] Author: Sindhu Salcedo (Pharmacist) Service: Pharmacy Author Type: Pharmacist Type: Plan of Care Filed: 01/22/2018 1:39 PM Note Text: MEDICATION HISTORY Patient Name:Harsha Gustafson : 1965 Source of history:residential/Other [facility] [phone] Medication Nonadherence Identified: No barriers noted The above information represents the best possible medication history: Yes Additional comments: New medications: Loratadine Multivitamin (chewable) Venlafaxine Miralax Robitussin Symbicort Modified medications: Metoprolol (TID --> BID) APAP (liquid --> tablet) Duoneb (schedule --> PRN) Discontinued medications: Heparin ASA Albuterol Bisacodyl Peridex Dextrose Lasix IV Lacosamide IV Metoprolol tart (duplicate) Nystatin Oxycodone Pantoprazole KCl Quetiapine Thera Vitamin Desitin Allergies: ALLERGIES Allergen Reactions - Cats - Grass Pollen Itching Preferred Pharmacy: N/A - pt going to [facility] Current ASSISTANT COUNSEL Medications: Prior to Admission medications as of 01/22/18 1225 Medication Sig Last Dose Taking loratadine (CLARITIN) 10 mg tablet Take 10 mg by mouth once daily. Yes Multivitamins chew Take 1 tablet by mouth once daily. Yes venlafaxine (EFFEXOR) 75 mg tablet Take 75 mg by mouth twice daily with meals. Yes acetaminophen (TYLENOL) 325 mg tablet Take 650 mg by mouth every 6 hours as needed for Pain. Yes polyethylene glycol 3350 (MIRALAX) 17 gram packet Take 17 g by mouth once daily as needed (constipation). Yes guaifenesin (ROBITUSSIN CHEST CONGESTION ORAL) Take 5-10 mL by mouth every 4 hours as needed (cough). Yes budesonide-formoterol (SYMBICORT) 160-4.5 mcg/actuation inhaler Inhale 2 Puffs as instructed twice daily. Yes busPIRone (BUSPAR) 10 mg tablet Take 10 mg by mouth twice daily. Yes ALPRAZolam (XANAX) 0.5 mg tablet 0.5 mg by PEG route three times daily as needed. Yes BACLOFEN ORAL 10 mg by PEG Tube route three times daily. Yes famotidine (PEPCID) 20 mg tablet 20 mg by PEG route once daily. Yes furosemide (LASIX) 20 mg tablet 20 mg by PEG route once daily. Yes lacosamide (VIMPAT) 200 mg tab 200 mg by PEG route twice daily. Yes metoprolol tartrate, short acting, (LOPRESSOR) 25 mg tablet 50 mg by PEG route twice daily. Yes ipratropium-albuterol (DUONEB) 0.5 mg-3 mg(2.5 mg base)/3 mL nebu Inhale 3 mL as instructed every 4 hours as needed. Patient taking differently: Inhale 3 mL as instructed every 6 hours as needed (SOB). Yes amLODIPine (NORVASC) 10 mg tablet Take 1 tablet by mouth once daily. Patient taking differently: 5 mg by PEG route once daily. Yes Fidel Bach (Metal Template Maker) January 22, 2018 12:01 PM Sindhu Salcedo PharmD NURSING PROG Observed: 01/22/2018 Status: COMPLETED Source: [place] 11:58 AM [facility] REPOSITORY HNO ID: [id number] Author: Albertina RobertsRn) HERMINIO Mijares Service: (none) Author Type: Registered Nurse Type: Nursing Progress Note Filed: 01/22/2018 12:00 PM Note Text: Nursing Progress Note Patient Name: Jose JAMESN: [id number] Patient Location: G101 029/G101-30 Received orders for violent restraints at 0836. See documentation flowsheet for violent restraints. Sitter at bedside for safety updated as to the monitoring requirements associated with violent restraints. This note was completed by: Albertina Mijares RN CASE MANAGEM Observed: 01/22/2018 Status: COMPLETED Source: [place] 11:33 AM [facility] REPOSITORY HNO ID: [id number] Author: Jem (Rn) HERMINIO Christianson Service: Care Management Author Type: Registered Nurse Type: Care Mgt Progress Note Filed: 01/22/2018 4:17 PM Note Text: CARE MANAGEMENT PROGRESS NOTE SERVICE DATE: 01/22/2018 SERVICE TIME: 1134 LOS: 6 days Needs Prior to Discharge: To Be Determined Pt currently in soft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 independence with self care and functional tasks and increase tolerance for meaningful/functional activities. Provided education on psychosocial/cognitive benefits of therapy as well, and educated on strategies to improve orientation/enhance mental engagement while in the ICU. -Instructed in post-op/procedural instructions for safe ADLs, and encouraged promoting independence with self care including: -Provided set upA and VCs for oral hygiene while seated upright and supported in bed. -Cues and max-totalA for sequencing in hygiene tasks while in supine, modA for rolling to place bedpan and maxA for pericare (pt w/o BM at this time and also exhibiting decreased sensation to bowel/functions). -Discussed splint options and protocols/purpose of splint eval (resting hand splint - to minimize further impairments and improve functional positioning of LUE). Total Timed Code Treatment Minutes: 13 Total Treatment Time (minutes): 28 FUNCTIONAL G CODE: OT 6 Clicks Score: 9 (01/21/18 1000) Self Care Current Status (G8987): CL (01/21/18 1000) Self Care Goal Status (G8988): CK (01/21/18 1000) Based on clinical assessment and the score on the 6 Clicks Functional Assessment Tool, the G code and corresponding severity modifiers are documented above. SUBJECTIVE: Current Hospital Course: Chart reviewed; per [facility] Pt is a 52 year old rosa m with PMHx significant for aortic dissection s/p surgical repair 10/07/17 with subsequent R MCA stroke s/p decompressive crani on 10/12/17. His course was also c/b vocal cord paralysis for which he never followed up on with plans for cranioplast on 01/20 (cancelled). He was admitted on 01/16 with new cough/fever. ?He had worsening hypoxia throughout this admission, originally on RA when he was admitted on 01/16 and then on 01/18 required 50% VM. CXR showed lower lung opacity concerning for pneumonia. He was started on Levofloxacin on 01/18, AMET was called on 01/18 for worsening tachypnea. On arrival, the patient at RR in the 50's and pO2 of 40% on ABG. He was emergently intubated and transferred to MICU. Major Interval Events: 01/19: CT chest pneumonia v aspiration; blood cx negative at 24 hrs; started on Zosyn; required 2L IVF for BP with MAPS in low 50's 01/20:?Self-extubated ovenright, now on 2L NC, oxygenation ok, no stridor. Resp cx growing H. Influenzae, UC w/ E. Faecalis, BC NGTD. Hemodynamically stable after additional volume expansion (total ~4L LR) ? Patient Report: They left me to rot at the alf, I really won't go back there. I just want to go home. Home Environment Patient Lives With: Facility Care Assistance Available: 24 Hour Prior Functional Level: Required Assistance Assistance Required With: Self Care;Safety;Meals;Cleaning;Ambulation Prior Functional Level Comments: alf care, pt reports deteriorated d/t lack of therapies OBJECTIVE: Orientation Deficits: Confused (Oriented to place/situation) Responsiveness: Alert;Awake Follows Commands: 1-step Commands Attention Deficits: Distractible Memory Deficits: Short Term Executive Function Deficits: Insight to Deficits;Judgement;Problem Solving;Motor Planning;Sequencing Sequencing Deficit: Moderate impairment Judgement Deficit: Minimal impairment Insight to Deficits: Moderate impairment Problem Solving Deficit: Moderate impairment Motor Planning Deficit: Minimal impairment CURRENT FUNCTIONAL STATUS: Current Activities of Daily Living Assist Level Feeding Total Assistance Grooming Set Up Bathing Upper Body Moderate Assistance Bathing Lower Body Maximal Assistance Dressing Upper Body Maximal Assistance Dressing Lower Body Total Assistance Toileting Total Assistance Patient was left in bed with call light in reach, bed in low/locked position, bedrails elevated, all needs within reach. Please see discipline specific clinical documentation flowsheet for complete details for this therapy evaluation/treatment. SIGNATURE: GARY Valladares/Lele PATIENT NAME: Jose Gustafson DATE: January 21, 2018 TIME: 10:57 AM PAGER: [phone] CONSULT PROG Observed: 01/21/2018 Status: COMPLETED Source: [place] 9:22 AM [facility] [place] REPOSITORY HNO ID: [id number] Author: Lary Cedillo MD Service: Otolaryngology Author Type: Resident Type: Consult Progress Note Filed: 01/21/2018 9:24 AM Note Text: Otolaryngology - Head and Neck Surgery Inpatient Progress Note S: No acute events. Speech therapy team is requesting vocal cord medialization procedure O: Current hospital medications: ipratropium-albuterol 3 mL nebulizer solution (DUONEB) 3 mL INHALATION QID albuterol 2.5 mg /3 mL (0.083 %) 2.5 mg (PROVENTIL) 2.5 mg INHALATION q 4 H PRN lidocaine urojet 2 % 6 mL topical gel (XYLOCAINE, GLYDO) 6 mL MUCOUS MEMBRANE PRN potassium chloride ER 40 mEq tab(s) (K-DUR, KLOR-CON) 40 mEq ORAL/FEEDING TUBE q 2 H PRN magnesium sulfate in water 4-6 g in sterile water 50 ml 4- 6 g INTRAVENOUS PRN sodium phosphate 45 mmol in NaCl 0.9% 250 mL 45 mmol INTRAVENOUS PRN insulin regular human injection (short acting) (NovoLIN R,HumuLIN R) SUBCUTANEOUS q 6 H insulin regular 250 units in NaCl 0.9% 250 mL iv infusion - ICU NOMOGRAM 0.5-30 Units/hr INTRAVENOUS CONTINUOUS insulin regular human iv bolus 2-10 Units 2-10 Units INTRAVENOUS PRN dextrose 50% in water 25-50 mL syringe 12.5-25 g INTRAVENOUS PRN dextrose 40 % 15 g 15 g ORAL PRN glucagon 1 mg injection (GLUCAGEN) 1 mg SUBCUTANEOUS PRN acetaminophen 650 mg tab(s) (TYLENOL) 650 mg ORAL/FEEDING TUBE q 6 H PRN acetaminophen 650 mg suppository (TYLENOL) 650 mg RECTAL q 6 H PRN oxyCODONE IR 5-10 mg tab(s) (ROXICODONE) 5-10 mg ORAL/FEEDING TUBE q 4 H PRN HYDROmorphone 0.5-1 mg injection (DILAUDID) 0.5-1 mg INTRAVENOUS q 4 H PRN heparin 5,000 Units injection 5,000 Units SUBCUTANEOUS q 12 H Chlorhexidine Gluconate 0.12 % 15 mL (PERIDEX) 15 mL ORAL QID iv contrast (radiology procedure) INTRAVENOUS DIRECTED PRN piperacillin-tazobactam 3.375 g in dextrose (iso-osmotic) 50 mL (ZOSYN) 3.375 g INTRAVENOUS q 6 H venlafaxine 75 mg tab(s) (EFFEXOR) 75 mg ORAL BID w MEALS acetaminophen 650 mg tab(s) (TYLENOL) 650 mg ORAL q 4 H PRN ondansetron (PF) 4 mg injection (ZOFRAN) 4 mg INTRAVENOUS q 6 H PRN prochlorperazine 25 mg suppository (COMPAZINE) 25 mg RECTAL q 12 H PRN docusate 100 mg CUP (COLACE) 100 mg ORAL/FEEDING TUBE BID lacosamide 200 mg in NaCl 0.9% 50 mL (VIMPAT) 200 mg INTRAVENOUS q 12 H pantoprazole 40 mg injection (PROTONIX) 40 mg INTRAVENOUS DAILY (6 AM) amLODIPine 10 mg tab(s) (NORVASC) 10 mg ORAL/FEEDING TUBE DAILY busPIRone 10 mg tab(s) (BUSPAR) 10 mg ORAL/FEEDING TUBE BID senna-docusate 8.6-50 mg 1 tablet (SENNA-S) 1 tablet ORAL/FEEDING TUBE BID 01/21/18 0500 01/21/18 0600 01/21/18 0700 01/21/18 0800 BP: 113/68 134/77 121/78 Pulse: 74 86 83 Resp: 23 30 Temp: 36.7 ?C (98.1 ?F) TempSrc: Oral SpO2: 97% 98% 97% Weight: Height: Intake/Output Summary (Last 24 hours) at 01/21/18 0922 Last data filed at 01/21/18 0800 Gross per 24 hour Intake 589 ml Output 1712 ml Net -1123 ml General: No acute distress Neuro: Patient oriented to self Voice: Breathy Pulm: Breathing comfortably on 2L/min via NC Neck: Scar from prior trachostomy A/P: 52 year old male with known vocal cord paralysis following repair of an aortic dissection in September 2017 and R MCA infarct resulting in left sided weakness. Patient currently admitted to the MICU for management of PNA. Although the patient was found to not be aspirating on 01/17/18 MBS, primary team suspect that he is aspirating and have made him NPO on the speech therapy recommendation. - Will discuss inpatient vs outpatient vocal cord medialization procedure with staff - Diet per primary team - Continue medical management of PNA Signature: Lary Cedillo MD Otolaryngology, PGY1 Pager: [phone] For questions after hours or on weekends please page [phone]. PROGRESS Observed: 01/21/2018 Status: COMPLETED Source: [place] 9:18 AM [facility] REPOSITORY HNO ID: [id number] Author: Mai Hull (Acnp) Service: Critical Care Author Type: Nurse Practitioner Type: Progress Notes Filed: 01/21/2018 11:30 AM Note Text: SERVICE DATE: 01/21/2018 SERVICE TIME: 9:18 AM MICU PROGRESS NOTE Admission Date: 01/16/2018 Hospital Day # 5 SUBJECTIVE Interval HPI: Clinically imrpoved - Afeberile, w/o leuko, hemodynamically stable, on 2L NC w/ spo2 96% - H influenzae on resp cx Beta lactamase neg - Waiting on Corpak placement OBJECTIVE Vital Signs (last filed) Range in last 24h Temp: 36.7 ?C (98.1 ?F) (01/21/18 0800) Temp Min: 36.5 ?C (97.7 ?F) Max: 37.1 ?C (98.8 ?F) Pulse: 83 (01/21/18 0700) Pulse Min: 74 Max: 89 Resp: 22 (01/21/18 0700) Resp Min: 18 Max: 39 BP: 121/78 (01/21/18 0700) BP Min: 94/58 Max: 134/77 MAP Non Invasive (Mean Arterial Pressure): 94 (01/21/18 0700) MAP Non Invasive (Mean Arterial Pressure) Min: 72 Max: 99 No Data Recorded SpO2: 97 % (01/21/18 0700) SpO2 Min: 93 % Max: 98 % Pain Score: Pt. Sleeping (Do Not Use With FREIGHT AND PASSENGER AGENT Meds) (01/21/18 0500) Fluid Balance: Intake/Output Summary (Last 24 hours) at 01/21/18 0659 Last data filed at 01/21/18 0600 Gross per 24 hour Intake 589 ml Output 1542 ml Net -953 ml Last Weight: 67.9 kg (149 lb 11.1 oz) (01/21/18 0000) Admit Weight: 64.9 kg (143 lb) (01/17/18 1600) DIET TUBE FEED - CONTIN (NO TRAY) Lines, Drains, and Airways Line Peripheral 01/16/18 1630 Right Forearm 18 Gauge 4 days Peripheral 01/18/18 1600 Right Antecubital 18 Gauge 2 days Drain Indwelling Urinary Catheter 01/19/18 1620 Assessment Christian 16 Fr 1 day Vent/Oxygen: Supplemental Oxygen: Yes. FiO2 2L NC No Data Recorded Physical Examination Performed Oral Mucosa: Dry mucous membranes Eyes: PERRL Neck: no JVD Cardiovascular: Regular rhythm Respiratory: CTA, decreased at bases Abdomen: Soft, Nontender and Positive bowel sounds Extremities: Edema- No Peripheral Pulses- Present all extremities Capillary Refill- less than 3 seconds Skin: Abnormalities- Yes Breakdown- see RN flowsheet Neurologic: Alert, Follows commands and Moving R sided extremities, (L sided hemiparesis chronic s/p prior R MCA stroke) Infusion Medications insulin regular Diagnostic tests reviewed today: Most recent labs and imaging results. PATIENT CHECKLIST ? Are restraints necessary: No ? Deep vein thrombosis prophylaxis administered? Yes ? Stress ulcer prophylaxis? Yes ? Nasogastric tube? No ? Christian catheter necessary? No ? Is central line essential? No ? Plan discussed with assigned RN? Yes ? Family updated within last 24 hours? Yes CARE COORDINATION: Patient Summary: 52 yoM with PMHx significant for aortic dissection s/p surgical repair 10/07/17 with subsequent R MCA stroke s/p decompressive crani on 10/12/17. His course was also c/b vocal cord paralysis for which he never followed up on with plans for cranioplast on 01/20 (cancelled). He was admitted on 01/16 with new cough/fever. He had worsening hypoxia throughout this admission, originally on RA when he was admitted on 01/16 and then on 01/18 required 50% VM. CXR showed lower lung opacity concerning for PNA. He was started on Levofloxacin on 01/18, AMET was called on 01/18 for worsening tachypnea. On arrival, the patient at RR in the 50's and pO2 of 40 on ABG. He was emergently intubated and transferred to MICU for acute hypoxemic RF 2/2 H. Influenzae PNA. Major Interval Events: 01/19: CT chest pneumonia v aspiration; blood cx negative at 24 hrs; started on Zosyn; required 2L IVF for BP with MAPS in low 50's 01/20: Self-extubated ovenright, now on 2L NC, oxygenation ok, no stridor. Resp cx growing H. Influenzae, UC w/ E. Faecalis, BC NGTD. Hemodynamically stable after additional volume expansion (total ~4L LR) 01/21: Afeberile, w/o leuko, hemodynamically stable, on 2L NC w/ spo2 96%. H influenzae on resp cx is Beta lactamase neg. Waiting on Corpak placement Plan For Today: - De-escalate Zosyn to Augmentin to finish 7 day course (will cover BL neg H. Influ + E. Faecalis S to ampcillin) - Corpak for post pyloric feedings, SERGER following, aspiration precuations - Appreciate ENT input on inpatient vs outpatient vocal cord medialization procedure - Wean NC, aggressive BPH, nebs - OT/PT - d/c christian -follow PVR Disposition: Stable to transfer to [facility] ASSESSMENT AND PLAN Overview, Assessment AND Plan, all Hosp Problems Active Hospital Problems as of 01/21/2018 Noted - Resolved A Acute respiratory failure with hypoxia (HCC) 01/18/2018 - Present Overview Hx 10/17/17-tracheostomy -s/p /p trach removal at the end of November per 01/18/18: AMET to MICU for tachypnea and acute hypoxemic RF requiring intubation 01/17 lower extremity DVT (-) CXR without large focal opacity or fluid overload CT Chest - LLL consolidation c/f mucus plugging, + scattered nodular opacities c.f bronchopneumonia vs aspiration Resp cx 01/18: growing H. Influenzae MBS -->Moderate oral and pharyngeal phase dysphagia characterized by slow oral manipulation oral transit time, spillage of material in the pharynx with a delayed onset of the swallow response. Mild pharyngeal residue but no contrast entered the larynx (no aspiration) during this controlled assessment. Current Assessment AND Plan Assessment: Resp decompensation 2/2 H. Influenzia PNA, w/ ongoing concern for aspiration 2/2 dysphagia. MBS did not reveal overt aspiration, but very charmaine risk even in a controlled setting. May in part be influenced by L VCP, ENT involved. Self extubated 01/19 , on 2L NC, no e/o stridor, oxygenation ok. PLAN: - Wean NC, aggressive BPH, nebs De-escalate Zosyn to Augmentin to finish 7 day course (will cover BL neg H. Influ + E. Faecalis S to ampicillin) - Appreciate ENT input on vocal cord injection/medialization - Corpak for post pyloric feedings, SERGER following, aspiration precuations Haemophilus influenzae pneumonia (HCC) 01/20/2018 - Present Current Assessment AND Plan Assessment: 01/18 Resp cx growing H. Influenzae, PLAN: - see above plan B Enterococcus UTI 01/18/2018 - Present Overview Urine cx 01/16 with Enterococcus faecalis Current Assessment AND Plan Assessment: UC w/ E. Faecalis, VRE, sensitive to ampicillin ?colonization, BC's neg Plan: -De-escalate Zosyn to Augmentin to finish 7 day course C Severe protein-calorie malnutrition (HCC) 10/13/2017 - Present Overview High aspiration risk Current Assessment AND Plan - Corpak for post pyloric feedings Vocal cord paralysis 01/18/2018 - Present Overview Hx of vocal cord paralysis following repair of AAA Current Assessment AND Plan Assessment: ENT was consulted upon admission to r/o aspiration. Flexible laryngoscopy showed immobile left vocal cord and mobile right vocal cord. Could be contributing to aspiration. PLAN: - Appreciate ENT input on vocal cord injection/medialization D Acute ischemic right MCA stroke (HCC) 10/11/2017 - Present Overview L sided weakness 10/11; CTH with large R MCA infarct with associated mass effect. Repeat imaging with evolution of R MCA infarct with increased edema 10/12/2017 - Right decompressive hemicraniectomy for R MCA stroke and malignant cerebral edema 10/20/17 CT Petechial hemorrhage within the evolving right MCA territory infarct, unchanged. Current Assessment AND Plan Assessment: Left side with minimal to no function PLAN: - Neurology following; surgery cancelled for 01/20/18 G * (Principal)Acquired skull defect 10/18/2017 - Present Overview S/p right hemicraniectomy A/P: Neurosurg signed off: helmet for discharge (orthotics consulted), follow-up in [address] Florence Sharif, flap closure will be in 2-3 months. Current Assessment AND Plan Unprioritized Status post craniectomy 01/16/2018 - Present Current Assessment AND Plan Assessment: -s/p right hemicraniectomy PLAN: - continue helmet when out of bed - do not place pressure on right side of head - will need flap closure Medication and Non-Pharmacologic VTE Prophylaxis/Anticoagulants Anticoagulant AND Antiplatelet Medications Start Dose Route Frequency Ordered Stop 01/18/18 1600 heparin 5,000 Units injection (Medical At Risk ) 5,000 Units SUBCUTANEOUS EVERY 12 HOURS 01/18/18 1555 -- 01/18/18 1600 pneumatic compression stockings (fl,oh) VTE Prophylaxis: VTE prophylaxis appropriate Plan of care discussed with: Attending, Patient, ICU Team and RN SIGNATURE: Mai Hull APRN.CNP PATIENT NAME: Jose Gustafson DATE: January 21, 2018 TIME: 9:18 AM PAGER/CONTACT #: [phone] PROGRESS Observed: 01/21/2018 Status: COMPLETED Source: [place] 9:05 AM [facility] REPOSITORY HNO ID: [id number] Author: Garland Herrera Service: Pulmonary Disease Author Type: Physician Type: Progress Notes Filed: 01/21/2018 3:55 PM Note Text: [facility] STAFF PHYSICIAN NOTE OF PERSONAL INVOLVEMENT IN CARE Attending Note I have personally performed a face to face assessment of the patient and have reviewed the PA/ACCOUNT INSTALLATION SPECIALIST note. My curry findings include: IMPRESSION: Mr. Gustafson is a 52 year old White male with history of aortic dissection s/p repair 09/2017 complicated by R MCA CVA s/p hemicraniectomy presented with acute hypoxic respiratory failure Currently: Looks and feels better this morning More awake and alert (although was a bit confused overnight) On nasal cannula oxygen Tube feeds off BP 121/78 Pulse 83 Temp 36.7 ?C (98.1 ?F) (Oral) Resp 22 Ht 182.9 cm (6') Wt 67.9 kg (149 lb 11.1 oz) SpO2 97% BMI 20.30 kg/m? No pressors K was 3 last night: corrected A: (Z98.890) History of cranioplasty (R13.12) Dysphagia, oropharyngeal (E43) Severe protein-calorie malnutrition (HCC) (J96.01) Acute respiratory failure with hypoxia (HCC) (M95.2) Acquired skull defect (I63.511) Acute ischemic right MCA stroke (HCC) (N39.0, B95.2) Enterococcus UTI PLAN: High risk for aspiration Mariusz YEBOAH planned Needs follow up swallowing evaluation antibiotics This patient has a high probability of sudden, clinically significant deterioration, which requires the highest level of physician preparedness to intervene urgently. I managed/supervised life or organ supporting interventions that required frequent physician assessment. I devoted my full attention to the direct care of this patient for the amount of time indicated below. Time I spent with family or surrogate(s) is included only if the patient was incapable of providing the necessary information or participating in medical decision making. Time devoted to teaching and to any procedures I billed separately is not included. Critical Care Documentation: The patient has the following organ/system impairment(s): Complex life-threatening medical problem(s) Time spent providing critical care services: 30 minutes. Garland Herrera MD CBC AND DIFFERENTIAL Collected: 01/21/2018 Status: F Source: [place] 12:39 AM [facility] REPOSITORY TYPE CODE TESTS RESULT OUT OF REFERENCE UNITS RANGE LAB WBC 3.70-11.00 k/uL WBC 8.09 LAB RBC 4.20-6.00 m/uL Low RBC 3.43 LAB HGB 13.0-17.0 g/dL Low Hemoglobin 11.0 LAB HCT 39.0-51.0 % Low Hematocrit 31.8 LAB MCV 80.0-100.0 fL MCV 92.7 LAB MCH 26.0-34.0 pG MCH 32.1 LAB MCHC 30.5-36.0 g/dL MCHC 34.6 LAB RDWCV 11.5-15.0 % RDW-CV 12.1 LAB PLTCT 150-400 k/uL Platelet Count 282 LAB MPV 9.0-12.7 fL MPV 9.1 LAB ANEUT % Neut% 78.8 LAB AANEUT 1.45-7.50 k/uL Abs Neut 6.38 LAB ALYMP % Lymph% 13.7 LAB AALYMP 1.00-4.00 k/uL Abs Lymph 1.11 LAB AMONO % [place]% 5.2 LAB AAMONO <0.87 k/uL Abs [place] 0.42 LAB AEOS % Eosin% 1.9 LAB AAEOS <0.46 k/uL Abs Eosin 0.15 LAB ABASO % Baso% 0.4 LAB AABASO <0.11 k/uL Abs Baso 0.03 LAB AUNRBC 0 /100 WBC NRBCs 0.0 LAB ABNRBC <0.01 k/uL Absolute nRBC <0.01 LAB DTYP DTYPE Auto Diff Performed By: #### CBCDIF, BMP #### [facility] [address] [place], [place] [address] BASIC METABOLIC PANL Collected: 01/21/2018 Status: F Source: [place] 12:39 AM [facility] REPOSITORY TYPE CODE TESTS RESULT OUT OF REFERENCE UNITS RANGE LAB GLU 74-99 mg/dL Glucose 82 Result Comment: The [place] Diabetes Association (ADA) provides guidance for cutoff values for fasting glucose and random glucose. The ADA defines fasting as no caloric intake for at least 8 hours. Fas ting plasma glucose results between 100 to 125 mg/dL indicate increased risk for diabetes (prediabetes). Fasting plasma glucose results greater than or equal to 126 mg/dL meet the criteria for diagnosis of diabetes. In the absence of unequivocal hyperglycemia, results should be confirmed by repeat testing. In a patient with classic symptoms of hyperglycemia or hyperglycemic crisis, random plasma glucose results greater than or equal to 200 mg/dL meet the criteria for diagnosis of diabetes. Reference: Standards of Medical Care in Diabetes 2016, [place] [employer] Association. Diabetes Care. 2016.39(Suppl 1). LAB BUN 9-24 mg/dL BUN Low 8 LAB CRET 0.73-1.22 mg/dL Creatinine Low 0.58 LAB NA 136-144 mmol/L Sodium 144 LAB K 3.7-5.1 mmol/L Potassium Low 3.0 LAB CL 97-105 mmol/L Chloride 104 LAB CO2 22-30 mmol/L CO2 27 LAB AGAP 9-18 mmol/L Anion Gap 13 LAB CA 8.5-10.2 mg/dL Calcium, Low Total 8.4 LAB GFRAA eGFR- Amer. >60 LAB GFRNAA . eGFR-All Other Races >60 Result Comment: eGFR (Estimated GFR) Units of measure: mL/min/1.73 meters squared eGFR is derived from the reexpressed MDRD Study equation using the following parameters: serum creatinine, age, gender and race. The creatinine assay has been calibrated to be traceable to IDMS. An eGFR <60 mL/min/1.73m2 for >3 months is consistent with chronic kidney disease. Refer to KDOQI guidelines for clinical interpretation. In patients with unstable renal function, e.g. those with acute kidney injury, the eGFR may not accurately reflect actual GFR. Performed By: #### CBCDIF, BMP #### [facility] [address] [place], [place] [address] THERAPY NT Observed: 01/20/2018 Status: COMPLETED Source: [place] 1:03 PM [facility] REPOSITORY HNO ID: [id number] Author: Luda RobertsPt) Keely Service: Physical Therapy Author Type: Physical Therapist Type: Therapy (PT/OT/Speech/Resp) Filed: 01/20/2018 1:14 PM Note Text: Physical Therapy Evaluation SERVICE DATE: 01/20/2018 SERVICE TIME: 949 ROOM: [place] [address] Recommended Discharge Disposition: Subacute/SNF due to decreased activity tolerance, strength, and cognition Justification For Post Acute Needs: Anticipate that patient will require daily (5x/wk) skilled therapy in a post-acute facility setting at the time of acute hospital discharge;May not tolerate higher intensity programing;Willing to participate;Motivated PT Recommendations to Nursing: Passive lift to/from chair;Utilize bed in chair position PT 6 Clicks Score: 6 ASSESSMENT : Patient presents with impaired Strength/Tone, Cognitive/Perceptual, Balance, Coordination, Functional Mobility and Activity Tolerance.impacting the ability to function without assistance from caregivers. Patient requires Max assist with all functional mobility including Maximum: Tactile, Verbal for safety. Pt also requires instructions/ education regarding safe activity dosing. Pt wishes to return home but needs exceed resources available at this time. Pt requires skilled therapy to address current functional limitations and impairments as well as to progress activities within safe limits. Recommended discharge to snf. Patient Disposition at Start of Session: Supine in Bed Patient Disposition at End of Session: (bed to chair) Tolerated Full Session Physical Therapy Problem List: Cognitive Deficit;Education Deficit;Decreased Activity Tolerance;Decreased Strength;Balance Impaired;Functional Mobility Impairment Patient /Caregiver Goals: Go Home Goals for Plan of Care: Rolling with: Maximal Assistance Transfer supine to/from sit with: Maximal Assistance Transfer sit to/from stand with: Maximal Assistance Rehab Potential: Excellent Based on prior level of function and motivation PLAN: Treatment Frequency (times per week): 2 Treatment Duration (number): 2 Weeks Treatment Interventions: Education;Energy Conservation Training;Strengthening;Functional Mobility Training;Balance Training Plan of Care developed with: Patient TREATMENT INTERVENTIONS: Therapy Diagnosis: Reduced mobility-other Interventions Provided: Evaluation;Neuromuscular Reeducation (27319) $ Evaluation-Moderate (38914) Billed Units: 1 unit Neuromuscular Re-Education (73210) Treatment Minutes: 23 2 units Skilled Intervention(s): Education on the role of PT and the importance of mobility. Patient placed in bed to chair positioning to monitor patient tolerance and strength. Max verbal and tactile cueing for full ROM and proper technique with all exercises. Heel cord/HS Stretch 3 x 30 seconds, marches x 10, bicep curls x 10, ceiling punches x 10. Forearm weight bearing with max assist to left side x 10, forward pull to sit with RUE rail assist x 10, diagonal reaching to LLE with RUE x 10, RUE/LUE handhold diagonal reaching with max verbal and tactile cueing for visual scanning and proper technique. Extra time required due to decreased attention and increased anxiety. Skilled intervention for ICU line/room setup for safe mobility environment as well as for vital sign monitoring to assess hemodynamic and respiratory response to activity to prescribe safe intensity and duration of activity/exercise during above interventions. Recommended discharge to snf. Highest Level of Mobility (-HLM) This scale indicates the objective performance level this date and does not reflect clinical judgment of capability. Today the patient scored a 2 on the -HLM. Explanations are noted in the chart below. ? ? Criteria Score Walk 250+ feet 8 ? 25+ feet 7 ? 10+ steps 6 Stand > 1 minute 5 Chair Transfer to chair 4 Bed Sitting at EOB 3 ? Turning self/bed activity* 2 ? Only laying 1 *Includes PROM/AROM, bed exercises and UE/LE movement Total Timed Code Treatment Minutes: 23 Total Treatment Time (minutes): 39 FUNCTIONAL G CODE: PT 6 Clicks Score: 6 (01/20/18 0950) Mobility: Walking and Moving Around Current Status (G8978): CN (01/20/18 0950) Mobility: Walking and Moving Around Goal Status (G8979): CN (01/20/18 0950) Based on clinical assessment and the score on the 6 Clicks Functional Assessment Tool, the G code and corresponding severity modifiers are documented above. SUBJECTIVE: Current Hospital Course: Chart reviewed; , 52 year old rosa m with PMHx significant for aortic dissection s/p surgical repair 10/07/17 with subsequent R MCA stroke s/p decompressive crani on 10/12/17. His course was also c/b vocal cord paralysis for which he never followed up on with plans for cranioplast on 01/20 (cancelled). He was admitted on 01/16 with new cough/fever. ?He had worsening hypoxia throughout this admission, originally on RA when he was admitted on 01/16 and then on 01/18 required 50% VM. CXR showed lower lung opacity concerning for pneumonia. He was started on Levofloxacin on 01/18, AMET was called on 01/18 for worsening tachypnea. On arrival, the patient at RR in the 50's and pO2 of 40% on ABG. He was emergently intubated and transferred to MICU. ? Major Interval Events: 01/19: CT chest pneumonia v aspiration; blood cx negative at 24 hrs; started on Zosyn; required 2L IVF for BP with MAPS in low 50's 01/20: Self-extubated ovenright, now on 2L NC, oxygenation ok, no stridor. Resp cx growing H. Influenzae, UC w/ E. Faecalis, BC NGTD. Hemodynamically stable after additional volume expansion (total ~4L LR) Patient Report: is my here patient agreeable to PT session Home Environment Patient Lives With: Facility Care Assistance Available: 24 Hour Prior Functional Level: Required Assistance OBJECTIVE: CURRENT FUNCTIONAL STATUS: mobility not performed this date due to concerns for patient safety and tolerance, mobility levels listed from previous sessions. Exercises performed in bed to chair positioning Current Functional Mobility Assist Level Additional Information Rolling Supine to Sit Sit to Supine Scooting Sit to Stand Stand to Sit Bed to Chair Toilet/Commode Gait Stairs Curb Step Car Transfer Please see discipline specific clinical documentation flowsheet for complete details for this therapy evaluation/treatment. SIGNATURE: Luda Riggs PT PATIENT NAME: Jose Gustafson DATE: January 20, 2018 TIME: 1:03 PM PAGER/CONTACT #: [phone] THERAPY NT Observed: 01/20/2018 Status: COMPLETED Source: [place] 12:51 PM [facility] REPOSITORY HNO ID: [id number] Author: Emmie (Hospital Security Officer) JESSI Yusuf/SERGER Service: Speech/Swallow Author Type: Speech Language Pathologist Type: Therapy (PT/OT/Speech/Resp) Filed: 01/20/2018 1:35 PM Note Text: [facility] Speech-Language Pathology (SERGER) Swallow Evaluation Consult Note Speech Pathology is reconsulted today to see Mr. Gustafson regarding swallowing/dysphagia. A modified barium swallow study was completed on 01/17/18 which was controlled for bolus size and rate due to aspiration concerns, especially with thin liquid. Doing so was successful in avoiding aspiration, but given his perceived risk of aspiration despite use of safe swallowing controls, vocal cord injection was suggested to be completed as soon as possible. ENT note on 01/17 indicated further ENT involvement as an outpatient. Mr. Gustafson has since been intubated and self extubated over the weekend. SERGER discussed with Mai Hull APRN.CNP and suggested placement of a Corpak feeding tube now. Mr. Gustafson should have vocal cord injection done by ENT prior to a repeat modified barium swallow study. The MBS should then be repeated rather than having a bedside swallow evaluation. Please page if further questions. Emmie Yusuf M.A., [facility]/SERGER Speech-Language Pathologist Pager # [phone] CONSULT PROG Observed: 01/20/2018 Status: COMPLETED Source: [place] 12:20 PM [facility] REPOSITORY HNO ID: [id number] Author: Lary (Res) MD Nguyen Service: Otolaryngology Author Type: Resident Type: Consult Progress Note Filed: 01/20/2018 12:25 PM Note Text: Otolaryngology - Head and Neck Surgery Inpatient Progress Note S: Patient self-extubated O: Current hospital medications: ipratropium-albuterol 3 mL nebulizer solution (DUONEB) 3 mL INHALATION QID albuterol 2.5 mg /3 mL (0.083 %) 2.5 mg (PROVENTIL) 2.5 mg INHALATION q 4 H PRN lidocaine urojet 2 % 6 mL topical gel (XYLOCAINE, GLYDO) 6 mL MUCOUS MEMBRANE PRN potassium chloride ER 40 mEq tab(s) (K-DUR, KLOR-CON) 40 mEq ORAL/FEEDING TUBE q 2 H PRN magnesium sulfate in water 4-6 g in sterile water 50 ml 4- 6 g INTRAVENOUS PRN sodium phosphate 45 mmol in NaCl 0.9% 250 mL 45 mmol INTRAVENOUS PRN insulin regular human injection (short acting) (NovoLIN R,HumuLIN R) SUBCUTANEOUS q 6 H insulin regular 250 units in NaCl 0.9% 250 mL iv infusion - ICU NOMOGRAM 0.5-30 Units/hr INTRAVENOUS CONTINUOUS insulin regular human iv bolus 2-10 Units 2-10 Units INTRAVENOUS PRN dextrose 50% in water 25-50 mL syringe 12.5-25 g INTRAVENOUS PRN dextrose 40 % 15 g 15 g ORAL PRN glucagon 1 mg injection (GLUCAGEN) 1 mg SUBCUTANEOUS PRN acetaminophen 650 mg tab(s) (TYLENOL) 650 mg ORAL/FEEDING TUBE q 6 H PRN acetaminophen 650 mg suppository (TYLENOL) 650 mg RECTAL q 6 H PRN oxyCODONE IR 5-10 mg tab(s) (ROXICODONE) 5-10 mg ORAL/FEEDING TUBE q 4 H PRN HYDROmorphone 0.5-1 mg injection (DILAUDID) 0.5-1 mg INTRAVENOUS q 4 H PRN heparin 5,000 Units injection 5,000 Units SUBCUTANEOUS q 12 H Chlorhexidine Gluconate 0.12 % 15 mL (PERIDEX) 15 mL ORAL QID iv contrast (radiology procedure) INTRAVENOUS DIRECTED PRN piperacillin-tazobactam 3.375 g in dextrose (iso-osmotic) 50 mL (ZOSYN) 3.375 g INTRAVENOUS q 6 H venlafaxine 75 mg tab(s) (EFFEXOR) 75 mg ORAL BID w MEALS acetaminophen 650 mg tab(s) (TYLENOL) 650 mg ORAL q 4 H PRN ondansetron (PF) 4 mg injection (ZOFRAN) 4 mg INTRAVENOUS q 6 H PRN prochlorperazine 25 mg suppository (COMPAZINE) 25 mg RECTAL q 12 H PRN docusate 100 mg CUP (COLACE) 100 mg ORAL/FEEDING TUBE BID lacosamide 200 mg in NaCl 0.9% 50 mL (VIMPAT) 200 mg INTRAVENOUS q 12 H pantoprazole 40 mg injection (PROTONIX) 40 mg INTRAVENOUS DAILY (6 AM) amLODIPine 10 mg tab(s) (NORVASC) 10 mg ORAL/FEEDING TUBE DAILY busPIRone 10 mg tab(s) (BUSPAR) 10 mg ORAL/FEEDING TUBE BID senna-docusate 8.6-50 mg 1 tablet (SENNA-S) 1 tablet ORAL/FEEDING TUBE BID 01/20/18 0600 01/20/18 0630 01/20/18 0700 01/20/18 0800 BP: 103/64 98/60 94/58 Pulse: 82 82 75 Resp: Temp: 36.6 ?C (97.9 ?F) TempSrc: Oral SpO2: 97% 92% 96% Weight: Height: Intake/Output Summary (Last 24 hours) at 01/20/18 1220 Last data filed at 01/20/18 0700 Gross per 24 hour Intake 3938.9 ml Output 752 ml Net 3186.9 ml General: No acute distress Neuro: Patient easicly distractable Voice: Breathy Pulm: Breathing comfortably on 2L/min via NC A/P: 52 year old male with known vocal cord paralysis following repair of an aortic dissection in September 2017 and R MCA infarct resulting in left sided weakness. Patient currently admitted to the MICU for management of PNA. Although the patient was found to not be aspirating on 01/17/18 MBS, primary team suspect that he is aspirating and have made him NPO receiving nutrition through a corpak. - Will discuss inpatient vs outpatient Vocal cord medialization procedure with staff - Diet per primary team - Continue medical management of PNA Signature: Lary Cedillo MD Otolaryngology, PGY1 Pager: [phone] For questions after hours or on weekends please page [phone]. CASE MANAGEM Observed: 01/20/2018 Status: COMPLETED Source: [place] 11:57 AM [facility] REPOSITORY HNO ID: [id number] Author: Jaqueline (Rn) HERMINIO Benitez Service: Case Management Author Type: Registered Nurse Type: Care Mgt Progress Note Filed: 01/20/2018 11:59 AM Note Text: CARE MANAGEMENT PROGRESS NOTE Change in Condition SERVICE DATE: 01/20/2018 SERVICE TIME: 11:57 AM LOS: 4 days Needs Prior to Discharge: To Be Determined AMET was called on 01/18 for worsening tachypnea. On arrival, the patient at RR in the 50's and pO2 of 40% on ABG. He was emergently intubated and transferred to MICU. ?Pt now on RA. D/C needs and date TBD. SIGNATURE: Jaqueline Benitez RN PATIENT NAME: Jose Gustafson DATE: January 20, 2018 TIME: 11:57 AM PAGER/CONTACT #: [phone] PROGRESS Observed: 01/20/2018 Status: COMPLETED Source: [place] 10:53 AM [facility] REPOSITORY HNO ID: [id number] Author: Garland Herrera Service: Pulmonary Disease Author Type: Physician Type: Progress Notes Filed: 01/20/2018 2:24 PM Note Text: [facility] STAFF PHYSICIAN NOTE OF PERSONAL INVOLVEMENT IN CARE Attending Note I have personally performed a face to face assessment of the patient and have reviewed the PA/ACCOUNT INSTALLATION SPECIALIST note. My curry findings include: IMPRESSION: Mr. Gustafson is a 52 year old White male with history of aortic dissection s/p repair 09/2017 complicated by R MCA CVA s/p hemicraniectomy presented with acute hypoxic respiratory failure Currently: Awake, follows commands Left sided weakness Self exubated last night On nasal cannual oxygen BP 94/58 Pulse 75 Temp 36.6 ?C (97.9 ?F) (Oral) Resp 23 Ht 182.9 cm (6') Wt 71.1 kg (156 lb 12 oz) SpO2 96% BMI 21.26 kg/m? 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 I managed/supervised life or organ supporting interventions that required frequent physician assessment. I devoted my full attention to the direct care of this patient for the amount of time indicated below. Time I spent with family or surrogate(s) is included only if the patient was incapable of providing the necessary information or participating in medical decision making. Time devoted to teaching and to any procedures I billed separately is not included. Critical Care Documentation: The patient has the following organ/system impairment(s): Complex life-threatening medical problem(s) Time spent providing critical care services: 30 minutes. Garland Herrera MD PROGRESS Observed: 01/20/2018 Status: COMPLETED Source: [place] 9:15 AM [facility] REPOSITORY O ID: [id number] Author: Mai Hull (Acnp) Service: Critical Care Author Type: Nurse Practitioner Type: Progress Notes Filed: 01/20/2018 12:14 PM Note Text: SERVICE DATE: 01/20/2018 SERVICE TIME: 9:15 AM MICU PROGRESS NOTE Admission Date: 01/16/2018 Hospital Day # 4 SUBJECTIVE Interval HPI: - Self-extubated overnight, now on 2L NC, oxygenation ok, no stridor - Resp cx growing H. Inluenzae, UC w/ E. Faecalis, BC NGTD - Hemodynamically stable after additional volume expansion (total ~4L LR) OBJECTIVE Vital Signs (last filed) Range in last 24h Temp: 36.6 ?C (97.9 ?F) (01/20/18 0800) Temp Min: 36.5 ?C (97.7 ?F) Max: 37.5 ?C (99.5 ?F) Pulse: 75 (01/20/18 0700) Pulse Min: 69 Max: 90 Resp: 23 (01/20/18 0700) Resp Min: 15 Max: 26 BP: 94/58 (01/20/18 0700) BP Min: 70/43 Max: 107/63 MAP Non Invasive (Mean Arterial Pressure): 71 (01/20/18 0700) MAP Non Invasive (Mean Arterial Pressure) Min: 51 Max: 80 No Data Recorded SpO2: 96 % (01/20/18 0700) SpO2 Min: 92 % Max: 100 % Pain Score: 0/10 (01/20/18 0400) Fluid Balance: Intake/Output Summary (Last 24 hours) at 01/20/18 0659 Last data filed at 01/20/18 0600 Gross per 24 hour Intake 5058.9 ml Output 722 ml Net 4336.9 ml Last Weight: 71.1 kg (156 lb 12 oz) (01/20/18 0500) Admit Weight: 64.9 kg (143 lb) (01/17/18 1600) DIET TUBE FEED - CONTIN (NO TRAY) Lines, Drains, and Airways Line Peripheral 01/16/18 1630 Right Forearm 18 Gauge 3 days Peripheral 01/16/18 1635 Right 20 Gauge 3 days Peripheral 01/18/18 1600 Right Antecubital 18 Gauge 1 day Drain Indwelling Urinary Catheter 01/19/18 1620 Assessment Christian 16 Fr less than 1 day Vent/Oxygen: Supplemental Oxygen: Yes. FiO2 2L NC %FIO2 Min: 45 Max: 45 Physical Examination Performed Oral Mucosa: Dry mucous membranes Eyes: PERRL Neck: no JVD Cardiovascular: Regular rhythm Respiratory: Reduced breath sounds bilat, L>>R Abdomen: Soft, Nontender and Positive bowel sounds Extremities: Edema- No Peripheral Pulses- Present all extremities Capillary Refill- less than 3 seconds Skin: Abnormalities- Yes Breakdown- see RN flowsheet Neurologic: Alert, Follows commands and Moving R sided extremities, (s/p prior R MCA stroke) Infusion Medications insulin regular Diagnostic tests reviewed today: Most recent labs and imaging results. PATIENT CHECKLIST ? Are restraints necessary: No ? Deep vein thrombosis prophylaxis administered? Yes ? Stress ulcer prophylaxis? Yes ? Nasogastric tube? No ? Christian catheter necessary? No ? Is central line essential? No ? Plan discussed with assigned RN? Yes ? Family updated within last 24 hours? Yes CARE COORDINATION: Patient Summary: 52 year old rosa m with PMHx significant for aortic dissection s/p surgical repair 10/07/17 with subsequent R MCA stroke s/p decompressive crani on 10/12/17. His course was also c/b vocal cord paralysis for which he never followed up on with plans for cranioplast on 01/20 (cancelled). He was admitted on 01/16 with new cough/fever. He had worsening hypoxia throughout this admission, originally on RA when he was admitted on 01/16 and then on 01/18 required 50% VM. CXR showed lower lung opacity concerning for pneumonia. He was started on Levofloxacin on 01/18, AMET was called on 01/18 for worsening tachypnea. On arrival, the patient at RR in the 50's and pO2 of 40% on ABG. He was emergently intubated and transferred to MICU. Major Interval Events: 01/19: CT chest pneumonia v aspiration; blood cx negative at 24 hrs; started on Zosyn; required 2L IVF for BP with MAPS in low 50's 01/20: Self-extubated ovenright, now on 2L NC, oxygenation ok, no stridor. Resp cx growing H. Influenzae, UC w/ E. Faecalis, BC NGTD. Hemodynamically stable after additional volume expansion (total ~4L LR) ? Plan For Today: - Monitor airway closely post self extubation - Cont Zosyn for H. Influenzae (follow sensitivities), + VRE in urine - Strict NPO, SLO following, Corpak for post pyloric feedings - Appreciate ENT input - Wean NC, aggressive BPH, nebs - OT/PT - d/c christian -follow PVR Disposition: MICU ASSESSMENT AND PLAN Overview, Assessment AND Plan, all Hosp Problems Active Hospital Problems as of 01/20/2018 Noted - Resolved A Acute respiratory failure with hypoxia (HCC) 01/18/2018 - Present Overview Hx 10/17/17-tracheostomy -s/p /p trach removal at the end of November per 01/18/18: AMET to MICU for tachypnea and acute hypoxemic RF requiring intubation 01/17 lower extremity DVT (-) CXR without large focal opacity or fluid overload CT Chest - LLL consolidation c/f mucus plugging, + scattered nodular opacities c.f bronchopneumonia vs aspiration Resp cx 01/18: growing H. Influenzae MBS -->Moderate oral and pharyngeal phase dysphagia characterized by slow oral manipulation oral transit time, spillage of material in the pharynx with a delayed onset of the swallow response. Mild pharyngeal residue but no contrast entered the larynx (no aspiration) during this controlled assessment. Current Assessment AND Plan Assessment: Resp decompensation 2/2 H. Influenzia PNA, w/ ongoing concern for aspiration 2/2 dysphagia. MBS did not reveal overt aspiration, but very charmaine risk even in a controlled setting. May in part be influenced by L VCP, ENT involved. Self extubated overnight, on 2L NC, no e/o stridor, oxygenation ok. PLAN: - Monitor airway closely post self extubation - Wean NC, aggressive BPH, nebs - Follow up blood cultures, resp cx sensitivities - Cont empiric Zosyn, de-escalate per sensitivities - Appreciate ENT input on vocal cord injection/medialization - Strict NPO, SERGER following, Corpak for post pyloric feedings Haemophilus influenzae pneumonia (HCC) 01/20/2018 - Present Current Assessment AND Plan Assessment: 01/18 Resp cx growing H. Influenzae, PLAN: - see above plan B Enterococcus UTI 01/18/2018 - Present Overview Urine cx 01/16 with Enterococcus faecalis Current Assessment AND Plan Assessment: UC w/ E. Faecalis, VRE, sensitive to ampicillin ?colonization, BC's neg Plan: - follow susceptibilities for de-escalation - continue Zosyn, as noted above (to cover PNA as well) C Severe protein-calorie malnutrition (HCC) 10/13/2017 - Present Overview High aspiration risk Current Assessment AND Plan - Corpak for post pyloric feedings Vocal cord paralysis 01/18/2018 - Present Overview Hx of vocal cord paralysis following repair of AAA Current Assessment AND Plan Assessment: ENT was consulted upon admission to r/o aspiration. Flexible laryngoscopy showed immobile left vocal cord and mobile right vocal cord. Could be contributing to aspiration. PLAN: - Appreciate ENT input on vocal cord injection/medialization D Acute ischemic right MCA stroke (HCC) 10/11/2017 - Present Overview L sided weakness 10/11; CTH with large R MCA infarct with associated mass effect. Repeat imaging with evolution of R MCA infarct with increased edema 10/12/2017 - Right decompressive hemicraniectomy for R MCA stroke and malignant cerebral edema 10/20/17 CT Petechial hemorrhage within the evolving right MCA territory infarct, unchanged. Current Assessment AND Plan Assessment: Left side with minimal to no function PLAN: - Neurology following; surgery cancelled for 01/20/18 G * (Principal)Acquired skull defect 10/18/2017 - Present Overview S/p right hemicraniectomy A/P: Neurosurg signed off: helmet for discharge (orthotics consulted), follow-up in [address] Florence Sharif, flap closure will be in 2-3 months. Current Assessment AND Plan Unprioritized Status post craniectomy 01/16/2018 - Present Current Assessment AND Plan Assessment: -s/p right hemicraniectomy PLAN: - continue helmet when out of bed - do not place pressure on right side of head - will need flap closure Medication and Non-Pharmacologic VTE Prophylaxis/Anticoagulants Anticoagulant AND Antiplatelet Medications Start Dose Route Frequency Ordered Stop 01/18/18 1600 heparin 5,000 Units injection (Medical At Risk ) 5,000 Units SUBCUTANEOUS EVERY 12 HOURS 01/18/18 1555 -- 01/18/18 1600 pneumatic compression stockings ([place]) VTE Prophylaxis: VTE prophylaxis appropriate Plan of care discussed with: Attending, Patient, ICU Team and RN SIGNATURE: Mai Hull APRN.CNP PATIENT NAME: Jose Gustafson DATE: January 20, 2018 TIME: 9:15 AM PAGER/CONTACT #: [phone] PROCEDURE Observed: 01/20/2018 Status: COMPLETED Source: [place] 4:54 AM [facility] [place] REPOSITORY HNO ID: [id number] Author: Bo Morales Service: Critical Care Author Type: Physician Type: Procedures Filed: 01/20/2018 4:59 AM Note Text: FOCUSED CARDIAC ULTRASOUND REPORT (MICU) NAME: Jose Gustafson AGE: [id number] year old SERVICE DATE: 01/18/2018 SERVICE TIME: 1830 REASON FOR EXAMINATION: Hypoxemia with concern for PE REQUESTING PHYSICIAN: Moises Sosa IMPRESSION: normal RV systolic function STUDY LIMITATIONS: Prior cardiac surgery, position, difficult views Left Ventricle: LV appears:normal size} LV systolic function appears:normal Right Ventricle: RV appears:normal size RV systolic function appears:normal The aorta appears dilated, but unable to get good views to determine the size or rule out aortic valve pathology Recommend formal Echo No pericardial effusion noted IVC: IVC measures 1.51 cm with > 50% collapsibility Patient is active on the ventilator. Estimated RAP is 0-5 INTERPRETING PHYSICIAN: Bo Morales MD PAGER: [phone] DATE: January 20, 2018 TIME: 4:54 AM CBC Collected: 01/20/2018 Status: F Source: [place] 12:25 AM [facility] REPOSITORY TYPE CODE TESTS RESULT OUT OF REFERENCE UNITS RANGE LAB WBC 3.70-11.00 k/uL WBC High 12.00 LAB RBC 4.20-6.00 m/uL Low RBC 3.31 LAB HGB 13.0-17.0 g/dL Low Hemoglobin 10.5 LAB HCT 39.0-51.0 % Low Hematocrit 30.8 LAB MCV 80.0-100.0 fL MCV 93.1 LAB MCH 26.0-34.0 pG MCH 31.7 LAB MCHC 30.5-36.0 g/dL MCHC 34.1 LAB RDWCV 11.5-15.0 % RDW-CV 12.4 LAB PLTCT 150-400 k/uL Platelet Count 256 LAB MPV 9.0-12.7 fL MPV 9.4 LAB ABSNUC <0.01 k/uL Absolute nRBC <0.01 Performed By: #### CBC, BMP #### [facility] [address] [address] BASIC METABOLIC PANL Collected: 01/20/2018 Status: F Source: [place] 12:25 AM [facility] REPOSITORY TYPE CODE TESTS RESULT OUT OF REFERENCE UNITS RANGE LAB GLU 74-99 mg/dL Glucose 87 Result Comment: The [place] [employer] (ADA) provides guidance for cutoff values for fasting glucose and random glucose. The ADA defines fasting as no caloric intake for at least 8 hours. Fas ting plasma glucose results between 100 to 125 mg/dL indicate increased risk for diabetes (prediabetes). Fasting plasma glucose results greater than or equal to 126 mg/dL meet the criteria for diagnosis of diabetes. In the absence of unequivocal hyperglycemia, results should be confirmed by repeat testing. In a patient with classic symptoms of hyperglycemia or hyperglycemic crisis, random plasma glucose results greater than or equal to 200 mg/dL meet the criteria for diagnosis of diabetes. Reference: Standards of Medical Care in Diabetes 2016, [place] [employer]. Diabetes Care. 2016.39(Suppl 1). LAB BUN 9-24 mg/dL BUN 14 LAB CRET 0.73-1.22 mg/dL Creatinine Low 0.71 LAB NA 136-144 mmol/L Sodium 142 LAB K 3.7-5.1 mmol/L Potassium 3.7 LAB CL 97-105 mmol/L Chloride 105 LAB CO2 22-30 mmol/L CO2 24 LAB AGAP 9-18 mmol/L Anion Gap 13 LAB CA 8.5-10.2 mg/dL Calcium, Total 8.6 LAB GFRAA eGFR- Amer. >60 LAB GFRNAA . eGFR-All Other Races >60 Result Comment: eGFR (Estimated GFR) Units of measure: mL/min/1.73 meters squared eGFR is derived from the reexpressed MDRD Study equation using the following parameters: serum creatinine, age, gender and race. The creatinine assay has been calibrated to be traceable to IDMS. An eGFR <60 mL/min/1.73m2 for >3 months is consistent with chronic kidney disease. Refer to KDOQI guidelines for clinical interpretation. In patients with unstable renal function, e.g. those with acute kidney injury, the eGFR may not accurately reflect actual GFR. Performed By: #### CBC, BMP #### [facility] [address] [place], [place] [address] PROGRESS Observed: 01/19/2018 Status: COMPLETED Source: [place] 1:07 PM [facility] REPOSITORY HNO ID: [id number] Author: Hilda Rodriguez Service: Critical Care Author Type: Physician Type: Progress Notes Filed: 01/19/2018 1:37 PM Note Text: SERVICE DATE: 01/19/2018 SERVICE TIME: 1:07 PM MICU PROGRESS NOTE Admission Date: 01/16/2018 Hospital Day # 3 SUBJECTIVE Interval HPI: No Change OBJECTIVE Vital Signs (last filed) Range in last 24h Temp: 36 ?C (96.8 ?F) (01/19/18 0800) Temp Min: 36 ?C (96.8 ?F) Max: 38.7 ?C (101.7 ?F) Pulse: 75 (01/19/18 1220) Pulse Min: 68 Max: 95 Resp: 16 (01/19/18 1220) Resp Min: 15 Max: 36 BP: (!) 76/52 (01/19/18 1200) BP Min: 70/43 Max: 117/68 MAP Non Invasive (Mean Arterial Pressure): 60 (01/19/18 1200) MAP Non Invasive (Mean Arterial Pressure) Min: 51 Max: 90 No Data Recorded SpO2: 98 % (01/19/18 1220) SpO2 Min: 92 % Max: 100 % Pain Score: 0/10 (01/19/18 1200) Fluid Balance: Intake/Output Summary (Last 24 hours) at 01/19/18 0659 Last data filed at 01/19/18 0600 Gross per 24 hour Intake 1819.7 ml Output 701 ml Net 1118.7 ml Last Weight: 65.5 kg (144 lb 6.4 oz) (01/19/18 0430) Admit Weight: 64.9 kg (143 lb) (01/17/18 1600) DIET NPO Lines, Drains, and Airways Line Peripheral 01/16/18 1630 Right Forearm 18 Gauge 2 days Peripheral 01/16/18 1635 Right 20 Gauge 2 days Peripheral 01/18/18 1600 Right Antecubital 18 Gauge less than 1 day Drain Condom Catheter 01/17/18 0830 2 days GI Feed/Drain 01/19/18 1100 Assessment Oral Gastric Oral 16 Fr less than 1 day Airway Airway 01/18/18 1600 less than 1 day Vent/Oxygen: Mechanical Ventilator Settings: Tidal Vol (ml): 500 Vent Mode: PRVC FIO2 (%): 45 Tidal Vol (ml): 500 PEEP / CPAP (cmH20): 10 Plat Press (cmH20): 19 Freq (bpm): 16 %FIO2 Min: 45 Max: 100 Physical Examination Performed Oral Mucosa: Moist mucous membranes Eyes: PERRL Neck: No adenopathy or JVD Cardiovascular: Regular rhythm, no murmurs gallops or rubs Respiratory: Reduced breath sounds bilat Abdomen: Soft and Nontender, non-distended, normoactive bowel sounds Extremities: Edema- Yes Peripheral Pulses- Present all extremities Skin: Abnormalities- / Breakdown- Please see nursing documentation Neurologic: Alert, follows commands, moves R sided extremities Infusion Medications lactated Ringers Last Rate: Stopped (01/19/18 0325) insulin regular fentaNYL Last Rate: 50 mcg/hr (01/19/18 1200) propofol infusion Last Rate: Stopped (01/19/18 1030) Diagnostic tests reviewed today: Most recent labs and imaging results. PATIENT CHECKLIST ? Are restraints necessary: Yes. Order written? Yes ? Deep vein thrombosis prophylaxis administered? Yes ? Stress ulcer prophylaxis? Yes ? Nasogastric tube? No ? Christian catheter necessary? Yes ? Is central line essential? Yes ? Plan discussed with assigned RN? Yes ? Family updated within last 24 hours? Yes CARE COORDINATION: Patient Summary: This is a 52 year old rosa m with PMHx significant for aortic dissection s/p surgical repair 10/07/17 with subsequent R MCA stroke s/p decompressive crani on 10/12/17. His course was also c/b vocal cord paralysis for which he never followed up on with plans for cranioplast on 01/20 (cancelled). He was admitted on 01/16 with new cough/fever. He had worsening hypoxia throughout this admission, originally on RA when he was admitted on 01/16 and then on 01/18 required 50% VM. CXR showed lower lung opacity concerning for pneumonia. He was started on Levofloxacin on 01/18, AMET was called on 01/18 for worsening tachypnea. On arrival, the patient at RR in the 50's and pO2 of 40% on ABG. He was emergently intubated and transferred to MICU. 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 Florence Sharif, flap closure will be in 2-3 months. Current Assessment AND Plan Acute ischemic right MCA stroke (HCC) 10/11/2017 - Present Overview L sided weakness 10/11; CTH with large R MCA infarct with associated mass effect. Repeat imaging with evolution of R MCA infarct with increased edema 10/12/2017 - Right decompressive hemicraniectomy for R MCA stroke and malignant cerebral edema 10/20/17 CT Petechial hemorrhage within the evolving right MCA territory infarct, unchanged. Current Assessment AND Plan Assessment: Left side with minimal to no function PLAN: - Neurology following; surgery cancelled for 01/20/18 Acute respiratory failure with hypoxia (HCC) 01/18/2018 - Present Overview 10/17/17-tracheostomy s/p trach removal at the end of November per 01/18/18: AMET called to RNF for tachypnea, RR of 50's and ABG showed pO2 of 42%. Intubated by AMET. Current Assessment AND Plan Assessment: - Etiology: Infection (PNA) vs Aspiration vs PE - 01/17 lower extremity DVT (-) - was receiving appropriate diuresis on the floor - CXR without large focal opacity or fluid overload - CT Chest - bronchopneumonia versus aspiration PLAN: - Follow up blood cultures - Zosyn for coverage Enterococcus UTI 01/18/2018 - Present Overview Urine cx 01/16 with Enterococcus faecalis Current Assessment AND Plan Assessment: - ? colonization Plan: - follow susceptibilities - continue abx Severe protein-calorie malnutrition (HCC) 10/13/2017 - Present Overview A/P: Tolerating TF at goal. Current Assessment AND Plan Tube Feeds as tolerated Status post craniectomy 01/16/2018 - Present Current Assessment AND Plan Assessment: -s/p right hemicraniectomy PLAN: - continue helmet when out of bed - do not place pressure on right side of head - will need flap closure Vocal cord paralysis 01/18/2018 - Present Overview Hx of vocal cord paralysis following repair of AAA Current Assessment AND Plan Assessment: - ENT was consulted upon admission to r/o aspiration. Flexible laryngoscopy showed immobile left vocal cord and mobile right vocal cord. As a result, that the patient is aspirating is a possibility - Evaluated by speech and swallow who recommend that hte patient is not aspiration, but is at risk of aspiration PLAN: - monitor - will need close follow up to r/o aspiration risk once extubated Medication and Non-Pharmacologic VTE Prophylaxis/Anticoagulants Anticoagulant AND Antiplatelet Medications Start Dose Route Frequency Ordered Stop 01/18/18 1600 heparin 5,000 Units injection (Medical At Risk ) 5,000 Units SUBCUTANEOUS EVERY 12 HOURS 01/18/18 1555 -- 01/18/18 1600 pneumatic compression stockings (wv,oh) VTE Prophylaxis: VTE prophylaxis appropriate Plan of care discussed with: Attending, ICU Team and RN SIGNATURE: Leonard Aguilar PA-C PATIENT NAME: Jose Gustafson DATE: January 19, 2018 TIME: 1:07 PM PAGER/CONTACT #: [phone] Attending Note I have personally performed a face to face assessment of the patient and?have reviewed the PA/MANNY note.?My curry findings include: Assessment/Plan are IMPRESSION: 52 year old M from [place] with history of aortic dissection s/p repair 09/2017 complicated by R MCA CVA s/p hemicraniectomy presented with acute hypoxic respiratory failure. ? Problem List: Acute hypoxic respiratory failure L pneumonia, aspiration UTI R MCA CVA s/p hemicraniectomy Severe protein calorie malnutrition Vocal cord paralysis ? PLAN: Awake, alert Acute hypoxic respiratory failure, L pneumonia, on zosyn, sputum cx, blood cx, chest PT HD stable TFs Adequate UOP PT/OT MICU ppx ? Patient/Family Updated: Patient's Next of Kin/Point of Contact, spouse/significant other and child, updated regarding the goals of care,? medical plan for the day, oracle distribution consultant recommendations, medical disposition and current medical condition/prognosis as and if clinically indicated. All questions and concerns were answered and addressed at this juncture. ? This patient has a high probability of sudden, clinically significant deterioration, which requires the highest level of physician preparedness to intervene urgently. I managed/supervised life or organ supporting interventions that required frequent physician assessment. I devoted my full attention to the direct care of this patient for the amount of time indicated below. Time I spent with family or surrogate(s) is included only if the patient was incapable of providing the necessary information or participating in medical decision making. Time devoted to teaching and to any procedures I billed separately is not included. ? Critical Care Documentation: The patient has the following organ/system impairment(s): Respiratory failure (Acute, with Hypoxemia) ? Time spent providing critical care services: 30 minutes. ? Other additions or changes: None ? Signature: Hilda Rodriguez MD Date: 01/19/2018 Time: 12:56 PM ? ? ? XR ABDOMEN 1V SUPINE Observed: 01/19/2018 Status: F Source: [place] 11:29 AM [facility] REPOSITORY * * *Final Report* * * DATE OF EXAM: Jan 19 2018 11:29AM GENE 5289 - XR ABDOMEN 1V SUPINE / PROCEDURE REASON: Evaluate tube, line or lead position * * * * Physician Interpretation * * * * ABDOMEN SINGLE VIEW HISTORY: . Evaluate tube, line or lead position . TECHNIQUE: A single view of the abdomen was obtained. Number of images: 2 with post processing COMPARISON: 01/19/2018 9:51 AM, 01/18/2018 RESULT: See impression. IMPRESSION: Lines and tubes: There is an OG tube with tip in the proximal stomach, unchanged in position. Bowel: Once again there is a moderate volume of feces with retained enteric contrast within the visualized colonic loops. There are no dilated bowel loops in the visualized upper abdomen. Unchanged Other: Previously identified 5 mm focus of hyperdensity in the right upper kidney is less apparent on this examination . Persistent patchy airspace opacities at the left lung base. Silver Wrapper: AMY Transcribe Date/Time: Jan 19 2018 11:36A Dictated by : TIERA GALINDO DO This examination was interpreted and the report reviewed and electronically signed by: ESTHER CROW MD on Jan 19 2018 12:09PM EST [id number] CONSULT PROG Observed: 01/19/2018 Status: COMPLETED Source: [place] 10:05 AM [facility] REPOSITORY HNO ID: [id number] Author: Claire Vance(Pharmacist) Service: Pharmacy Author Type: Pharmacist Type: Consult Progress Note Filed: 01/19/2018 10:06 AM Note Text: PHARMACY VANCOMYCIN DOSING NOTE Patient Name: Jose Gustafson Admission Date: 01/16/2018 Date of Consult: 01/19/2018 Time of Consult: 10:05 AM The primary service has discontinued vancomycin therapy. Pharmacy vancomycin dosing service will sign off. Thank you for allowing us to participate in this patient's care. Please contact pharmacy if questions. Claire Vance PharmD XR ABDOMEN 1V SUPINE Observed: 01/19/2018 Status: F Source: [place] 10:05 AM [facility] REPOSITORY * * *Final Report* * * DATE OF EXAM: Jan 19 2018 10:05AM GENE 5289 - XR ABDOMEN 1V SUPINE / PROCEDURE REASON: Evaluate tube, line or lead position * * * * Physician Interpretation * * * * ABDOMEN SINGLE VIEW HISTORY: . Evaluate tube, line or lead position . TECHNIQUE: A single view of the abdomen was obtained. Number of images: 2 with post processing COMPARISON: 01/18/2018 RESULT: See impression. IMPRESSION: Lines and tubes: NG/OG tube tip is unchanged within the stomach. The side-port is likely below the diaphragm. Bowel: Enteric contrast is present within the colon in addition there is moderate volume of feces, not significantly changed from the prior study. There are no dilated bowel loops in the upper abdomen. Other: A 5 mm focus of hyperdensity within the right upper kidney, likely from contrast within the calyceal system, rather than stone. Patchy airspace opacities in the left lung base better seen on prior CT chest Silver Wrapper: PSCB Transcribe Date/Time: Jan 19 2018 10:37A Dictated by : TIERA GALINDO DO This examination was interpreted and the report reviewed and electronically signed by: ESTHER CROW MD on Jan 19 2018 11:24AM EST [id number] NURSING PROG Observed: 01/19/2018 Status: COMPLETED Source: [place] 5:43 AM [facility] REPOSITORY HNO ID: [id number] Author: Myriam Rodriguez (Rn) HERMINIO Bell Service: (none) Author Type: Registered Nurse Type: Nursing Progress Note Filed: 01/19/2018 5:45 AM Note Text: Nursing Progress: Topic: RESTRAINT NON-VIOLENT PATIENT NAME: Jose Gustafson [address] The patient demonstrates Attempting to Remove Medical Devices Vital to Medical Stability, Impulsive Behavior, Inability to Retain Information Regarding Safety Directions as evidenced by the following behaviors reaches for ET tube and repeatedly asked when it was coming out which pose an imminent danger to self. The following interventions were attempted but were not effective in protecting the patient's safety: Alarms, Bed in Low/Locked Position, Call Light Within Reach, Medications Reviewed, Modify Environment, Modify Equipment, Frequent Observation, Pain/Discomfort Relief, Post Orienting Objects, Re-Orientation Methods Next, a comprehensive assessment was performed and warranted placing the patient in Soft Bilateral Wrists, the least restrictive restraint needed to protect the patient's safety. Ongoing safety assessments and evaluation for earliest removal of restraints will be performed. DATE: January 19, 2018 TIME: 5:43 AM Myriam Bell RN PROGRESS Observed: 01/19/2018 Status: COMPLETED Source: [place] 3:59 AM [facility] REPOSITORY HNO ID: [id number] Author: Abelardo Herbert Service: Neurosurgery Author Type: Resident Type: Progress Notes Filed: 01/19/2018 10:03 AM Note Text: Neurosurgery Inpatient Progress Note PATIENT NAME: Jose Gustafson MEDICATIONS: Current hospital medications: lactated ringers infusion 1,000 mL INTRAVENOUS CONTINUOUS potassium chloride ER 40 mEq tab(s) (K-DUR, KLOR-CON) 40 mEq ORAL/FEEDING TUBE q 2 H PRN magnesium sulfate in water 4-6 g in sterile water 50 ml 4- 6 g INTRAVENOUS PRN sodium phosphate 45 mmol in NaCl 0.9% 250 mL 45 mmol INTRAVENOUS PRN insulin regular human injection (short acting) (NovoLIN R,HumuLIN R) SUBCUTANEOUS q 6 H insulin regular 250 units in NaCl 0.9% 250 mL iv infusion - ICU NOMOGRAM 0.5-30 Units/hr INTRAVENOUS CONTINUOUS insulin regular human iv bolus 2-10 Units 2-10 Units INTRAVENOUS PRN dextrose 50% in water 25-50 mL syringe 12.5-25 g INTRAVENOUS PRN dextrose 40 % 15 g 15 g ORAL PRN glucagon 1 mg injection (GLUCAGEN) 1 mg SUBCUTANEOUS PRN acetaminophen 650 mg tab(s) (TYLENOL) 650 mg ORAL/FEEDING TUBE q 6 H PRN acetaminophen 650 mg suppository (TYLENOL) 650 mg RECTAL q 6 H PRN oxyCODONE IR 5-10 mg tab(s) (ROXICODONE) 5-10 mg ORAL/FEEDING TUBE q 4 H PRN HYDROmorphone 0.5-1 mg injection (DILAUDID) 0.5-1 mg INTRAVENOUS q 4 H PRN heparin 5,000 Units injection 5,000 Units SUBCUTANEOUS q 12 H fentaNYL 20 mcg/mL iv infusion in NaCl 0.9% 100 mL 25-250 mcg/hr INTRAVENOUS CONTINUOUS fentaNYL 50 mcg/mL 25 mcg injection (SUBLIMAZE) 25 mcg INTRAVENOUS q 2 H PRN propofol infusion (DIPRIVAN) 5-60 mcg/kg/min INTRAVENOUS CONTINUOUS propofol iv bolus 20 mg (DIPRIVAN) 20 mg INTRAVENOUS q 30 MIN PRN propofol infusion (DIPRIVAN) 5-60 mcg/kg/min INTRAVENOUS CONTINUOUS Chlorhexidine Gluconate 0.12 % 15 mL (PERIDEX) 15 mL ORAL QID iv contrast (radiology procedure) INTRAVENOUS DIRECTED PRN piperacillin-tazobactam 3.375 g in dextrose (iso-osmotic) 50 mL (ZOSYN) 3.375 g INTRAVENOUS q 6 H vancomycin iv piggyback 1 g in D5W 200 mL (VANCOCIN) 1 g INTRAVENOUS q 12 HR vancomycin dosing and monitoring per pharmacy OTHER As Directed venlafaxine 75 mg tab(s) (EFFEXOR) 75 mg ORAL BID w MEALS metoprolol tartrate (short acting) (LOPRESSOR) tab(s) 75 mg 75 mg ORAL q 8 H acetaminophen 650 mg tab(s) (TYLENOL) 650 mg ORAL q 4 H PRN ondansetron (PF) 4 mg injection (ZOFRAN) 4 mg INTRAVENOUS q 6 H PRN prochlorperazine 25 mg suppository (COMPAZINE) 25 mg RECTAL q 12 H PRN docusate 100 mg CUP (COLACE) 100 mg ORAL/FEEDING TUBE BID lacosamide 200 mg in NaCl 0.9% 50 mL (VIMPAT) 200 mg INTRAVENOUS q 12 H pantoprazole 40 mg injection (PROTONIX) 40 mg INTRAVENOUS DAILY (6 AM) amLODIPine 10 mg tab(s) (NORVASC) 10 mg ORAL/FEEDING TUBE DAILY busPIRone 10 mg tab(s) (BUSPAR) 10 mg ORAL/FEEDING TUBE BID senna-docusate 8.6-50 mg 1 tablet (SENNA-S) 1 tablet ORAL/FEEDING TUBE BID LABS: CBC, Coags, BMP, Mg, Phos Recent Labs 01/16/18 1630 01/16/18 1019 WBC 10.01 10.42 HB 12.7* 13.3 HCT 37.9* 39.3 PLT 264 279 INR 1.0 1.0 APTT 36.7* 36.3* NA 144 141 K 3.7 3.9 CHLOR 103 104 CO2 25 25 BUN 18 19 CREAT 0.68* 0.70* GLUC 89 100* CA 9.4 9.3 CSF AND Dilantin Liver Function, Amylase, AND Lipase Recent Labs 01/16/18 1630 TPROT 6.3 ALB 3.3* ALT 18 AST 14 ALKPHOS 68 TBILI 0.8 Cardiac Enzymes ABGs VITAL SIGNS 24 HOUR REVIEW: 01/19/18 0130 01/19/18 0200 01/19/18 0230 01/19/18 0300 BP: 81/51 (!) 77/53 (!) 78/49 83/54 Pulse: 74 74 74 68 Resp: 17 16 17 16 Temp: TempSrc: SpO2: 96% 96% 97% 98% Weight: INTERVAL HPI Transferred to MICU after increased O2 requirement. CT chest with collapse/consolidation of LLL OBJECTIVE: Awake, intubated Ox2 PERRL, EOMI L facial droop, TM RUE no drift RUE, RLE 5/5 LUE, LLE 0/5 A/P: 52 year old RH male w/ PMH significant for aortic dissection s/p surgical repair 10/07/17 with subsequent R MCA stroke s/p decompressive crani w/ cough, scheduled for cranioplasty on 01/20 - apreciate MICU care - OR Saturday cancelled, will re-schedule on outpatient basis as medical problems are resolved - No further neurosurgical needs at this time - Patient will benefit with further management from medicine team when able to leave MICU - Neurosurgery signing off at this time Signature Abelardo Herbert MD PGY-1, Neurological Surgery Pager: [phone] Please page [phone] on weekends and after 6pm Page [phone] after 6 pm and on weekends CBC Collected: 01/19/2018 Status: F Source: [place] 2:40 AM [facility] REPOSITORY TYPE CODE TESTS RESULT OUT OF REFERENCE UNITS RANGE LAB WBC 3.70-11.00 k/uL WBC High 17.49 LAB RBC 4.20-6.00 m/uL Low RBC 4.16 LAB HGB 13.0-17.0 g/dL Hemoglobin 13.0 LAB HCT 39.0-51.0 % Low Hematocrit 38.6 LAB MCV 80.0-100.0 fL MCV 92.8 LAB MCH 26.0-34.0 pG MCH 31.3 LAB MCHC 30.5-36.0 g/dL MCHC 33.7 LAB RDWCV 11.5-15.0 % RDW-CV 12.4 LAB PLTCT 150-400 k/uL Platelet Count 269 LAB MPV 9.0-12.7 fL Low MPV 8.9 LAB ABSNUC <0.01 k/uL Absolute nRBC <0.01 Performed By: #### CBC, BMP, CKCKMB, TANK #### [facility] [address] [place], [place] [address] BASIC METABOLIC PANL Collected: 01/19/2018 Status: F Source: [place] 2:40 AM [facility] REPOSITORY TYPE CODE TESTS RESULT OUT OF REFERENCE UNITS RANGE LAB GLU 74-99 mg/dL High Glucose 141 Result Comment: The [place] Diabetes [employer] (ADA) provides guidance for cutoff values for fasting glucose and random glucose. The ADA defines fasting as no caloric intake for at least 8 hours. Fas ting plasma glucose results between 100 to 125 mg/dL indicate increased risk for diabetes (prediabetes). Fasting plasma glucose results greater than or equal to 126 mg/dL meet the criteria for diagnosis of diabetes. In the absence of unequivocal hyperglycemia, results should be confirmed by repeat testing. In a patient with classic symptoms of hyperglycemia or hyperglycemic crisis, random plasma glucose results greater than or equal to 200 mg/dL meet the criteria for diagnosis of diabetes. Reference: Standards of Medical Care in Diabetes 2016, [place] [employer] Association. Diabetes Care. 2016.39(Suppl 1). LAB BUN 9-24 mg/dL BUN 16 LAB CRET 0.73-1.22 mg/dL Creatinine Low 0.72 LAB NA 136-144 mmol/L Sodium 140 LAB K 3.7-5.1 mmol/L Potassium Low 3.4 LAB CL 97-105 mmol/L Chloride 104 LAB CO2 22-30 mmol/L CO2 25 LAB AGAP 9-18 mmol/L Anion Gap 11 LAB CA 8.5-10.2 mg/dL Calcium, Total 8.8 LAB GFRAA eGFR- Amer. >60 LAB GFRNAA . eGFR-All Other Races >60 Result Comment: eGFR (Estimated GFR) Units of measure: mL/min/1.73 meters squared eGFR is derived from the reexpressed MDRD Study equation using the following parameters: serum creatinine, age, gender and race. The creatinine assay has been calibrated to be traceable to IDMS. An eGFR <60 mL/min/1.73m2 for >3 months is consistent with chronic kidney disease. Refer to KDOQI guidelines for clinical interpretation. In patients with unstable renal function, e.g. those with acute kidney injury, the eGFR may not accurately reflect actual GFR. Performed By: #### CBC, BMP, CKCKMB, TANK #### [facility] [address] [id number] CK, TOTAL AND CKMB Collected: 01/19/2018 Status: F Source: [place] 2:40 AM [facility] REPOSITORY TYPE CODE TESTS RESULT OUT OF RANGE REFERENCE UNITS LAB CK 51-298 U/L Low CK 14 Result Comment: Please note the updated, gender-specific reference range for this test (effective 07/12/2016). LAB MB <7.7 ng/mL 1.3 MB LAB CKMBRI 0.0-4.0 % CK MB % not reported CK MB % with CK <100 U/L. Performed By: #### CBC, BMP, CKCKMB, TANK #### [facility] [place], [place] [address] TROPONIN T Collected: 01/19/2018 Status: F Source: [place] 2:40 AM [facility] REPOSITORY TYPE CODE TESTS RESULT OUT OF REFERENCE UNITS RANGE LAB TROPT 0.000-0.029 ng/mL Troponin T <0.010 Performed By: #### CBC, BMP, CKCKMB, TANK #### [facility] [place], [place] [address] GASA + ALL Collected: 01/19/2018 Status: F Source: [facility] 12:42 AM [facility] RADIANCE USE ONLY REPOSITORY TYPE CODE TESTS RESULT OUT OF REFERENCE UNITS RANGE LAB PH 7.35-7.45 pH 7.40 LAB PCO2 34-46 mm Hg pCO2 38 LAB PO2 85-95 mm Hg pO2 81 Low LAB BE mmol/L Base Excess NEG 1 LAB HCO3 22-26 mmol/L Bicarbonate 23 LAB CO2CT 22.0-28.0 mmol/L CO2 Content 24 LAB O2HB 95-98 % 95 Oxyhemoglobin, Art. LAB COHB 0-5.0 % 0.9 Carboxyhemoglobin ,Art LAB MHGB 0.4-1.5 % 0.4 Methemoglobin LAB TEMP C 37.0 Temperature, Body LAB PHTC 7.35-7.45 pH, Temp 7.40 Corrected LAB PCO2T 34-46 mm Hg pCO2, Temp 38 Correct LAB PO2T mm Hg pO2, Temp 81 Corrected LAB NAB 135-146 mmol/L 141 Sodium,Whole Bld LAB KWB 3.5-5.0 mmol/L Potassium, 3.6 Whole Bld LAB HGBB 13.0-17.0 g/dL 14.1 Hemoglobin,Total, ACL LAB HCTB 39.0-51.0 % Hematocrit, 43 ACL LAB IC 1.08-1.30 mmol/L Calcium, 1.26 Ion, WB LAB GLB 60-105 mg/dL 137 High Glucose,Whole Bld LAB LACT 0.5-2.2 mmol/L Lactate 1.0 LAB ABGCOM Blood Gas O2 Comm, Art Administration Result Comment: 60% Performed By: #### ALLBG #### [facility] [address] [place] [id number] CONSULT PROG Observed: 01/18/2018 Status: COMPLETED Source: [place] 11:26 PM [facility] REPOSITORY HNO ID: [id number] Author: Miguel Shultz (Pharmacist) Service: Pharmacy Author Type: Pharmacist Type: Consult Progress Note Filed: 01/18/2018 11:34 PM Note Text: PHARMACY VANCOMYCIN DOSING NOTE Patient Name: Jose Gustafson Admission Date: 01/16/2018 Date of Consult: 01/18/2018 Time of Consult: 11:26 PM Indication: Pneumonia Goal Range: 10-20 mcg/mL RECOMMENDATIONS/PLAN: Pharmacy consulted for vancomycin dosing for Jose Gustafson, a 52 year old, male who is being treated with vancomycin for pneumonia 1. Patient is currently ordered Vancomycin 1 g IV q12h. Today is day 1 of therapy. 2. No vancomycin level has been drawn for this dosing regimen. 3. The present dose of vancomycin is the recommended dosage for this patient at this time. Continue therapy as prescribed. 4. The next vancomycin level will be ordered for 01-22 or 6- 28 depending on timing of administration of first dose unless clinically indicated sooner. (Pharmacy will order) We will follow patient renal function, vancomycin levels and doses with you during the course of therapy. Additional recommendations will appear in follow up notes. If you have any questions, please contact Chetna PackerD at [phone]. Age: [age] year old Allergies: ALLERGIES Allergen Reactions - Cats - Grass Pollen Itching Last 3 Encounter Wt Readings: Date: Wt: 01/16/2018 62.9 kg (138 lb 10.7 oz) 12/30/2017 64.9 kg (143 lb) 11/23/2017 83.9 kg (185 lb) Last 1 Encounter Ht Readings: Date: Ht: 12/30/2017 182.9 cm (6') CrCl: 126 mL/min Temp (24hrs), Av.3 ?C (99.1 ?F), Min:36.6 ?C (97.8 ?F), Max:38.7 ?C (101.7 ?F) - Current Temp: 37.7 ?C (99.9 ?F) Labs BUN (mg/dL) Date Value 01/18/2018 14 01/18/2018 14 01/16/2018 18 Creatinine (mg/dL) Date Value 01/18/2018 0.60 (L) 01/18/2018 0.76 01/16/2018 0.68 (L) WBC (k/uL) Date Value 01/18/2018 12.97 (H) 01/18/2018 12.26 (H) 01/16/2018 10.01 Vancomycin Levels: Vancomycin, result (ug/mL) Date/Time Value 10/20/2017 1110 11.6 10/17/2017 1136 6.0 Stephen Packer PROGRESS Observed: 01/18/2018 Status: COMPLETED Source: [place] 9:38 PM [facility] REPOSITORY HNO ID: [id number] Author: Daxa Ford Ct Service: (none) Author Type: (none) Type: Progress Notes Filed: 01/18/2018 9:39 PM Note Text: Radiology Service Progress Note PATIENT NAME: Jose Gustafson DATE OF SERVICE: January 18, 2018 TIME: 9:38 PM PATIENT IDENTITY VERIFICATION COMPLETED USING TWO (2) METHODS: Patient confirmed name verbally and ID band matches. and Patient confirmed name verbally. PATIENT GENDER DATA: Male PATIENT RELEVANT IMPLANT DATA REVIEWED: Yes RADIOLOGY DEPARTMENT: CT; Exam(s) Completed: PE Study PERIPHERAL IV DATA: Inpatient: see LDA documentation SIGNED BY: Daxa Ford Ct January 18, 2018 9:[address] CHEST W IVCON PE Observed: 01/18/2018 Status: F Source: [place] 9:38 PM [facility] REPOSITORY * * *Final Report* * * DATE OF EXAM: Jan 18 2018 9:38PM [facility] [place] - CT CHEST W IVCON PE / PROCEDURE REASON: PE suspected, high pretest prob * * * * Physician Interpretation * * * * EXAMINATION: CHEST CT WITH CONTRAST (PULMONARY EMBOLISM PROTOCOL) CLINICAL HISTORY: PE suspected, high pretest prob. 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 Technique: Spiral CT acquisition of the chest from the thoracic inlet to the upper abdomen following IV contrast. MQ: [id number]_4 Contrast: 103 mL Omnipaque [address] Dose-Length Product: 288 mGy*cm CT Dose Reduction Employed: Automated exposure control (AEC) Comparison: None RESULT: Limitations: None. Evaluation for thromboembolic disease: - Right heart chambers: No thromboembolic disease. - Main pulmonary arteries: No thromboembolic disease. - Lobar pulmonary arteries: No thromboembolic disease. - Segmental pulmonary arteries: No thromboembolic disease. - Subsegmental pulmonary arteries: Nondiagnostic. Lines, tubes, and devices: Endotracheal tube with tip above the lexx. NG/OG tube with tip in the body of the stomach. Lung parenchyma and pleura: Small amount of layering mucus within the right posterolateral trachea (axial image 42) and small filling defect within the left main bronchus (axial image 145) which may represent additional mucous. Central airways are otherwise patent without endobronchial lesion. A diverticulum is noted arising from the anterior wall of the trachea, image 43. Mild diffuse bronchial wall thickening. There is elevation of the left hemidiaphragm. There is complete collapse/consolidation of the left lower lobe likely secondary to aspirated secretions, however a component of infection/inflammation cannot be excluded. There are abrupt cutoffs of several left lower lobe bronchi likely indicative of mucous plugging. There are additional new scattered consolidative opacities such as in the left upper lobe (images 121, 147, 183, and 199), right lower lobe (image 264), and right middle lobe (275) as well as small peribronchial nodules and opacities predominantly within the lower lung zones likely indicative of infection/inflammation. Additional areas of linear atelectasis/scarring in the right lower lobe and right middle lobe. Trace bilateral pleural effusions. Thoracic inlet, heart, and mediastinum: Visualized thyroid is unremarkable. Scattered subcentimeter pretracheal lymph nodes (No lymphadenopathy in the axillary, mediastinal, or hilar regions by CT size criteria. Prior median sternotomy with intact sternal wires. There is been prior complete aortic arch graft repair with expected postoperative appearance. Also noted is an endovascular stent graft in the descending thoracic aorta. There is mild dilation of the main pulmonary artery up to 2.9 cm. The cardiac chambers are normal in size. No coronary artery atherosclerotic calcifications are noted, although the study is not optimized for coronary assessment. No pericardial effusion or thickening. The esophagus is nondilated. Bones and soft tissues: Prior median sternotomy with intact sternal wires. Degenerative changes of the spine. No lytic or sclerotic osseous lesion. Temporary epicardial pacing wires are noted. Upper abdomen: Punctate calcifications in the left kidney may be vascular. - IMPRESSION: No CT evidence of pulmonary embolism. Complete collapse/consolidation of the left lower lobe likely due to atelectasis from mucous plugging, although a component of infection cannot be excluded. Scattered new clustered peribronchial nodular and airspace opacities, likely related to infection/bronchopneumonia. Sequela of aspiration is possible. Postoperative changes of complete aortic arch graft repair. Silver Wrapper: AMY Transcribe Date/Time: Jan 18 2018 9:40P Dictated by : DORIS WASHINGTON DO This examination was interpreted and the report reviewed and electronically signed by: EFREN RAMIREZ MD on Jan 18 2018 10:12PM EST [id number] ECG COMPLETE W Observed: 01/18/2018 Status: F Source: [place] INTERPRETATION 7:31 PM [facility] REPOSITORY NAME : JOSE GUSTAFSON PID : [id number] : 1965 Gender : Male Race : ORD : [id number] Procedure Date : Jan 18 2018 19:31:27 Edit Date : Jan 20 2018 15:48:34 Diagnosis:NORMAL SINUS RHYTHM NONSPECIFIC T WAVE ABNORMALITY ABNORMAL ECG Confirmed by JAMIE MORRISON M.D. ([id number]) on 01/20/2018 3:48:27 PM Ventricular Rate : 84 BPM Atrial Rate : 84 BPM P-R Interval : 122 ms QRS Duration : 90 ms Q-T Interval : 374 ms QTC Calculation(Bezet) : 441 ms P [place] : 67 degrees R Medford : 45 degrees T Medford : -44 degrees Test Reason : POSSIBLE INFECTION Location : 68 : G61 [id number] Overread By : JAMIE MORRISON M.D. Edited By : JAMIE MORRISON M.D. Referred By : FLORENCE SHARIF Acquired by : JEM DUNN RAPID PCR FLU/RSV Collected: 01/18/2018 Status: F Source: [place] 6:34 PM [facility] REPOSITORY TYPE CODE TESTS RESULT OUT OF REFERENCE UNITS RANGE LAB FLRSRC Nasopharyngeal Specimen Swab Source LAB PCRFLA Negative for Influenza A Influenza A by RT PCR PCR LAB PCRFLB Negative for Influenza B Influenza B by RT PCR PCR LAB PCRRSV Negative for RSV RSV PCR by RT PCR Performed By: #### FLRSV, RVPPCR #### [facility] [address] [place], [place] [address] RESP VIR PNL BY Collected: 01/18/2018 Status: F Source: [facility] 6:34 PM [facility] REPOSITORY TYPE CODE TESTS RESULT OUT OF REFERENCE UNITS RANGE LAB RVPSRC Resp Viral Panl Nasopharyngeal Srce Swab LAB FLUARV Negative Influenza A Virus Negative LAB [id number] Negative Influenza A H1N1 Negative 09 LAB FLUBRV Negative Influenza B Virus Negative LAB RSVA Negative Resp Syncytial Negative Vir A LAB RSVB Negative Resp Syncytial Negative Vir B LAB PIV1 Negative Parainfluenza 1 Negative LAB PIV2 Negative Parainfluenza 2 Negative LAB PIV3 Negative Parainfluenza 3 Negative LAB HMPV Negative H Metapneumovirus Negative LAB HRV Negative Rhinovirus Negative LAB ADVBE Negative Adenovirus B/E Negative LAB ADVC Negative Adenovirus C Negative Performed By: #### FLRSV, RVPPCR #### [facility] [address] [place], [place] [address] STAPH AUREUS PCR Collected: 01/18/2018 Status: F Source: [place] 6:32 PM [facility] REPOSITORY TYPE CODE TESTS RESULT OUT OF REFERENCE UNITS RANGE LAB SASRC Nasal S aureus Spec Source LAB MRSRES Negative for MRSA MRSA by PCR. PCR LAB SARES Negative for Staph Staphylococcus aureus PCR aureus by PCR. Performed By: #### SAPCR #### [facility] [address] [place], [place] [address] XR ABDOMEN 1V SUPINE Observed: 01/18/2018 Status: F Source: [place] 5:53 PM [facility] REPOSITORY * * *Final Report* * * DATE OF EXAM: Jan 18 2018 5:53PM [facility] 5289 - XR ABDOMEN 1V SUPINE / PROCEDURE REASON: Evaluate tube, line or lead position * * * * Physician Interpretation * * * * PORTABLE KUB ON 01/18/2018 at 1736 HISTORY: Evaluate tube, line or lead position COMPARISON: 10/17/2017 TECHNIQUE: Supine abdomen, 1 view(s); 1 image(s) RESULT: IMPRESSION: Pelvis and mid to lower abdomen excluded from the image. Small to moderate hiatal hernia with nondilated gas-filled gastric fundus extending above the diaphragm. Tip of an NG tube is at the expected level of the distal stomach. Moderate feces in the visualized colon. No dilated bowel loops in the upper abdomen. Silver Wrapper: [facility] Transcribe Date/Time: Jan 18 2018 7:47P Dictated by : TORI CARTER JR, MD This examination was interpreted and the report reviewed and electronically signed by: TORI CARTER JR, MD on Jan 18 2018 7:51PM EST [id number] + ALL Collected: 01/18/2018 Status: F Source: [place] FOR 5:32 PM [facility] RADIANCE USE ONLY REPOSITORY TYPE CODE TESTS RESULT OUT OF REFERENCE UNITS RANGE LAB PH 7.35-7.45 pH 7.39 LAB PCO2 34-46 mm Hg pCO2 37 LAB PO2 85-95 mm Hg pO2 High 111 LAB BE mmol/L Base Excess NEG 2 LAB HCO3 22-26 mmol/L Bicarbonate 22 LAB CO2CT 22.0-28.0 mmol/L CO2 Content 23 LAB O2HB 95-98 % Oxyhemoglobin, Art. 97 LAB COHB 0-5.0 % Carboxyhemoglobin,A 1.0 rt LAB MHGB 0.4-1.5 % Methemoglobin 0.4 LAB TEMP C Temperature, Body 37.0 LAB PHTC 7.35-7.45 pH, Temp Corrected 7.39 LAB PCO2T 34-46 mm Hg pCO2, Temp Correct 37 LAB PO2T mm Hg pO2, Temp Corrected 111 LAB NAB 135-146 mmol/L Sodium,Whole Bld 142 LAB KWB 3.5-5.0 mmol/L Potassium, Whole Low Bld 3.2 LAB HGBB 13.0-17.0 g/dL Hemoglobin,Total,AC 14.3 L LAB HCTB 39.0-51.0 % Hematocrit, ACL 44 LAB IC 1.08-1.30 mmol/L Calcium, Ion, WB 1.27 LAB GLB 60-105 mg/dL Glucose,Whole Bld High 114 LAB LACT 0.5-2.2 mmol/L Lactate 0.9 Performed By: #### ALLBG #### [facility] [address] [place], [place] [address] COMP METABOLIC PANEL Collected: 01/18/2018 Status: F Source: [place] 5:30 PM [facility] REPOSITORY TYPE CODE TESTS RESULT OUT OF REFERENCE UNITS RANGE LAB TP 6.3-8.0 g/dL Protein, Total 6.6 LAB ALB 3.9-4.9 g/dL Low Albumin 3.3 LAB CA 8.5-10.2 mg/dL Calcium, Total 9.1 LAB TBIL 0.2-1.3 mg/dL Bilirubin, Total 0.8 LAB ALKP 36-108 U/L Alkaline Phosphatase 80 LAB AST 14-40 U/L AST 19 Result Comment: Results may be falsely increased due to interference by hemolysis. Suggest reorder as clinically indicated. LAB GLU 74-99 mg/dL High Glucose 105 Result Comment: The [place] Diabetes [employer] (ADA) provides guidance for cutoff values for fasting glucose and random glucose. The ADA defines fasting as no caloric intake for at least 8 hours. Fas ting plasma glucose results between 100 to 125 mg/dL indicate increased risk for diabetes (prediabetes). Fasting plasma glucose results greater than or equal to 126 mg/dL meet the criteria for diagnosis of diabetes. In the absence of unequivocal hyperglycemia, results should be confirmed by repeat testing. In a patient with classic symptoms of hyperglycemia or hyperglycemic crisis, random plasma glucose results greater than or equal to 200 mg/dL meet the criteria for diagnosis of diabetes. Reference: Standards of Medical Care in Diabetes 2016, [place] [employer]. Diabetes Care. 2016.39(Suppl 1). LAB BUN 9-24 mg/dL BUN 14 LAB CRET 0.73-1.22 mg/dL Creatinine Low 0.60 LAB NA 136-144 mmol/L Sodium 143 LAB K 3.7-5.1 mmol/L Potassium 3.7 LAB CL 97-105 mmol/L Chloride 105 LAB CO2 22-30 mmol/L CO2 Low 20 LAB AGAP 9-18 mmol/L Anion Gap 18 LAB ALT 10-54 U/L ALT 18 LAB GFRAA eGFR- Amer. >60 LAB GFRNAA . eGFR-All Other Races >60 Result Comment: eGFR (Estimated GFR) Units of measure: mL/min/1.73 meters squared eGFR is derived from the reexpressed MDRD Study equation using the following parameters: serum creatinine, age, gender and race. The creatinine assay has been calibrated to be traceable to IDMS. An eGFR <60 mL/min/1.73m2 for >3 months is consistent with chronic kidney disease. Refer to KDOQI guidelines for clinical interpretation. In patients with unstable renal function, e.g. those with acute kidney injury, the eGFR may not accurately reflect actual GFR. Performed By: #### CMP, CBCDIF #### [facility] [address] [place], [place] [address] CBC AND DIFFERENTIAL Collected: 01/18/2018 Status: F Source: [place] 5:30 PM [facility] REPOSITORY TYPE CODE TESTS RESULT OUT OF REFERENCE UNITS RANGE LAB WBC 3.70-11.00 k/uL WBC High 12.97 LAB RBC 4.20-6.00 m/uL RBC Low 3.88 LAB HGB 13.0-17.0 g/dL Low Hemoglobin 12.0 LAB HCT 39.0-51.0 % Low Hematocrit 36.6 LAB MCV 80.0-100.0 fL MCV 94.3 LAB MCH 26.0-34.0 pG MCH 30.9 LAB MCHC 30.5-36.0 g/dL MCHC 32.8 LAB RDWCV 11.5-15.0 % RDW-CV 12.4 LAB PLTCT 150-400 k/uL Platelet Count 230 LAB MPV 9.0-12.7 fL MPV Low 8.8 LAB ANEUT % Neut% 94.0 LAB AANEUT 1.45-7.50 k/uL Abs Neut High 12.19 LAB ALYMP % Lymph% 3.4 LAB AALYMP 1.00-4.00 k/uL Abs Low Lymph 0.44 LAB AMONO % [place]% 2.6 LAB AAMONO <0.87 k/uL Abs [place] 0.34 LAB AEOS % Eosin% 0.0 LAB AAEOS <0.46 k/uL Abs Eosin 0.00 LAB ABASO % Baso% 0.0 LAB AABASO <0.11 k/uL Abs Baso 0.00 LAB RBCMOR Red Cell Morph SEE COMMENT Result Comment: Unremarkable LAB PLTEST Platelet Platelet Estimate estimate adequate LAB DTYP DTYPE Manual Diff Performed By: #### CMP, CBCDIF #### [facility] [address] [place] [id number] PROGRESS Observed: 01/18/2018 Status: COMPLETED Source: [place] 5:03 PM [facility] REPOSITORY HNO ID: [id number] Author: Ian De Leon Service: Critical Care Author Type: Physician Type: Progress Notes Filed: 01/18/2018 5:36 PM Note Text: [facility] STAFF PHYSICIAN NOTE OF PERSONAL INVOLVEMENT IN CARE I have reviewed the history and physical examination obtained and documented by the physician assistant analyst and I personally participated in the curry components. I have discussed the case and management of the patient's care. The following comments revise or confirm relevant curry components of the note. 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 Admitted 01/16 for elective cranioplasty course complicated by progressive hypoxemia that progressed Acute hypoxemic respiratory failure - likely 2/2 aspiration vs viral given cough and fever at PA however cxr here relatively clear. Wean O 2 obtain ABG. If persisent Vocal cord paralysis Left elevated karen-diaphragm PLAN: - Lung protective ventilation - Wean O2 - Abx - Consider CT with contrast chest if not improved This patient has a high probability of sudden, clinically significant deterioration, which requires the highest level of physician preparedness to intervene urgently. I managed/supervised life or organ supporting interventions that required frequent physician assessment. I devoted my full attention to the direct care of this patient for the amount of time indicated below. Time I spent with family or surrogate(s) is included only if the patient was incapable of providing the necessary information or participating in medical decision making. Time devoted to teaching and to any procedures I billed separately is not included. Critical Care Documentation: The patient has the following organ/system impairment(s): Respiratory failure (Acute on Chronic, with Hypoxemia) Time spent providing critical care services: 40 minutes. SIGNATURE: Ian De Leon MD [facility] Observed: 01/18/2018 Status: F Source: [place] RESPIRATORY CULT/STAIN 4:50 PM [facility] REPOSITORY Sp. Request/Comment: - Specimen received in sterile container. Smear Result - Many Gram negative coccobacilli --> ABNORMAL ALERT Many Polymorphonuclear leukocytes Rare Mononuclear cells Culture Result - Many Haemophilus influenzae --> ABNORMAL ALERT Beta lactamase Negative --> ABNORMAL ALERT Rare Normal respiratory chika present Performed By: #### RCULST #### [facility] [address] [id number] PLAN OF CARE Observed: 01/18/2018 Status: COMPLETED Source: [place] 4:10 PM [facility] REPOSITORY HNO ID: [id number] Author: Cirilo De La Cruz Service: Neurosurgery Author Type: Resident Type: Plan of Care Filed: 01/18/2018 4:11 PM Note Text: Neurosurgery Plan of Care Note Patient with desaturations overnight. Hypoxic today on high flow oxygen. Intubated due to increasing oxygen requirement, transferred to MICU. Will cancel cranioplasty for Saturday. Reschedule when medical issues are resolved, likely as an outpatient. No current neurosurgical needs. Discussed with chief and staff, Dr. Kole De La Cruz MD PGY-2, Neurosurgery January 18, 2018 4:11 PM Pager [phone] Page [phone] after 6 pm and on weekends XR CHEST 1V FRONTAL Observed: 01/18/2018 Status: F Source: [facility] 4:01 PM [facility] REPOSITORY * * *Final Report* * * DATE OF EXAM: Jan 18 2018 4:01PM GENE [id number] - XR CHEST 1V FRONTAL PORT / PROCEDURE REASON: Acute respiratory illness * * * * Physician Interpretation * * * * EXAMINATION: CHEST RADIOGRAPH (PORTABLE SINGLE VIEW AP) Exam Date/Time: 01/18/2018 4:01 PM Clinical History: Acute respiratory illness MQ: [id number] Comparison: 01/18/2018 at 0521 hours RESULT: See impression. IMPRESSION: Lines, tubes, and devices: The patient has been intubated, with the tip of the endotracheal tube located approximately 8 cm above the lexx. This could be advanced mildly for more optimal/stable positioning. Retained temporary epicardial pacing leads/wires are noted. Lungs and pleura: Elevation of the left hemidiaphragm, unchanged. Bibasilar airspace opacities may be secondary to atelectasis; component of infection/aspiration not excluded in appropriate clinical setting. Trace bilateral pleural effusions present. No pulmonary edema. No pneumothorax identified. Cardiomediastinal silhouette: Status post median sternotomy and probable elephant trunk procedure, with endovascular stent graft material seen within the aortic arch and descending thoracic aorta. Cardiomediastinal silhouette is stable in size. . Other: Surgical clips seen within the right subclavian/axillary region. Silver Wrapper: AMY Transcribe Date/Time: Jan 18 2018 5:18P Dictated by : ANNA CARTER MD This examination was interpreted and the report reviewed and electronically signed by: ANNA CARTER MD on Jan 18 2018 5:22PM EST [id number] MEDICAL SOHAN Observed: 01/18/2018 Status: COMPLETED Source: [place] 3:58 PM [facility] REPOSITORY O ID: [id number] Author: Justin Pizano Service: Critical Care Author Type: Anesthesiologist Type: Chg in Clinical Condition Filed: 01/18/2018 4:00 PM Note Text: INTUBATION PROCEDURE NOTE PROCEDURE DATE: January 18, 2018 PROCEDURE START TIME: 15:40 PROCEDURE: OROTRACHEAL INTUBATION PRIMARY PROCEDURALIST: Justin Pizano MD CHISELER HEAD(S): None INFORMED CONSENT: Due to emergent situation informed consent was not obtained UNIVERSAL PROTOCOL / SAFETY CHECKLIST Sign in Communication: Completed Time Out: Team Confirms the Correct Patient, Correct Procedure, Correct Site and Site Marking, Correct Position (if applicable), Prep and Dry Time (if applicable). Time: 15:38 Affirmation of Time Out: YES Sign Out Discussion: Completed Indication: Airway Protection, Difficulty Breathing and Unable to Oxygenate/Ventilate Sedation: 4 mg Versed, 50 mg Propofol, 100 mg Fentanyl, 50 mg Rocuronium Visualization Grade: II- visualized part of cords via direct laryngoscopy Equipment: Endotracheal tube, size 7.5 mm The patient was administered supplemental oxygen by bag-mask ventilation. Adjunct airway equipment and suction were at the bedside and ready to use. The head was placed in the sniffing position. The method used for intubation was rapid sequence intubation because the patient was confirmed to have a full stomach. Cricoid pressure was maintained. A endotracheal tube was inserted using a laryngoscope with a 4 Wendi blade and secured at 23 cm at the teeth/gums. Placement was confirmed with end-title CO2, capnometer, bilateral auscultatation of breath sounds without air sounds in the abdomen and chest x-ray ordered to confirm placement, results pending. Difficulty Encountered: None Patient tolerated procedure well. Complications: None Number of Attempts for Intubation: 1 No Specimens Collected Unless Noted Here Estimated Blood Loss if > Minimal Noted Here DISPOSITION Patient stable and in ICU SIGNATURE: Justin Pizano MD PATIENT NAME: Jose Gustafson DATE: January 18, 2018 TIME: 3:58 PM PAGER/CONTACT #: [phone] MEDICAL SOHAN Observed: 01/18/2018 Status: COMPLETED Source: [place] 3:53 PM [facility] REPOSITORY [facility] ID: [id number] Author: Justin Pizano Service: Critical Care Author Type: Anesthesiologist Type: Chg in Clinical Condition Filed: 01/18/2018 3:58 PM Note Text: MEDICAL EMERGENCY TEAM AMET Date of MET Page: January 18, 2018 Time of MET Page: 15:17 Time of LIP Arrival: 15:20 Requesting Provider: RNF SUMMARY DIAGNOSIS, ASSESSMENT and RECOMMENDATIONS AMET activated for respiratory distress. Patient in severe respiratory distress, use of accessory muscle, no breath sounds on left side, RR in the 50s, hemodynamics and neurology stable. Spo2 on 15l nasal cannula 86, ABG was done a few minutes ago with PO2 46. Endotracheal intubation and transfer to MICU. Status: Unstable PLAN, DISPOSITION and OUTCOME Transfer to the ICU History of Present Illness: This is a 52 year old male who was admitted to the hospital with PMH significant for aortic dissection s/p surgical repair 10/07/17 with subsequent R MCA stroke s/p decompressive crani, presents as preadmit for cranioplasty tomorrow, c/f cough / fever, here for infectious workup ?. PRIMARY REASON FOR CALL Respiratory: Acute change in respiratory Status-RR <8 or >32 PAST MEDICAL / SURGICAL HISTORY PAST MEDICAL HISTORY Diagnosis Date - Acute kidney injury (HCC) 10/09/2017 - Aortic dissection (HCC) - History of kidney stones - Hypertension - Stroke (cerebrum) (HCC) 10/11/2017 - Unspecified asthma(493.90) , PAST SURGICAL HISTORY Procedure Laterality Date - [facility] Colonoscopy - LITHOTRIPSY EXTRACORP SHOCK WAVE(ESWL) 18 months ago - PAST SURGICAL HISTORY OF 2012 left ankle ORIF- hardware - PAST SURGICAL HISTORY OF 2012 ORIF left wrist - hardware - REMOVAL OF HEEL SPUR 2002, 2004 Bilateral - REPAIR ING HERNIA,5+Y/O,REDUCIBL Hernia repair, inguinal, as infant AIRWAY HISTORY Not available MEDICATIONS Current Facility-Administered Medications: levoFLOXacin 500 mg in D5W 100 mL (LEVAQUIN) 500 mg INTRAVENOUS DAILY potassium chloride ER 40 mEq tab(s) (K-DUR, KLOR-CON) 40 mEq ORAL/FEEDING TUBE q 2 H PRN magnesium sulfate in water 4-6 g in sterile water 50 ml 4- 6 g INTRAVENOUS PRN sodium phosphate 45 mmol in NaCl 0.9% 250 mL 45 mmol INTRAVENOUS PRN insulin regular human injection (short acting) (NovoLIN R,HumuLIN R) SUBCUTANEOUS q 6 H insulin regular 250 units in NaCl 0.9% 250 mL iv infusion - ICU NOMOGRAM 0.5-30 Units/hr INTRAVENOUS CONTINUOUS insulin regular human iv bolus 2-10 Units 2-10 Units INTRAVENOUS PRN dextrose 50% in water 25-50 mL syringe 12.5-25 g INTRAVENOUS PRN dextrose 40 % 15 g 15 g ORAL PRN glucagon 1 mg injection (GLUCAGEN) 1 mg SUBCUTANEOUS PRN acetaminophen 650 mg tab(s) (TYLENOL) 650 mg ORAL/FEEDING TUBE q 6 H PRN And acetaminophen 650 mg suppository (TYLENOL) 650 mg RECTAL q 6 H PRN And oxyCODONE IR 5-10 mg tab(s) (ROXICODONE) 5-10 mg ORAL/FEEDING TUBE q 4 H PRN And HYDROmorphone 0.5-1 mg injection (DILAUDID) 0.5-1 mg INTRAVENOUS q 4 H PRN heparin 5,000 Units injection 5,000 Units SUBCUTANEOUS q 12 H venlafaxine 75 mg tab(s) (EFFEXOR) 75 mg ORAL BID w MEALS metoprolol tartrate (short acting) (LOPRESSOR) tab(s) 75 mg 75 mg ORAL q 8 H acetaminophen 650 mg tab(s) (TYLENOL) 650 mg ORAL q 4 H PRN ondansetron (PF) 4 mg injection (ZOFRAN) 4 mg INTRAVENOUS q 6 H PRN prochlorperazine 25 mg suppository (COMPAZINE) 25 mg RECTAL q 12 H PRN docusate 100 mg CUP (COLACE) 100 mg ORAL/FEEDING TUBE BID lacosamide 200 mg in NaCl 0.9% 50 mL (VIMPAT) 200 mg INTRAVENOUS q 12 H pantoprazole 40 mg injection (PROTONIX) 40 mg INTRAVENOUS DAILY (6 AM) amLODIPine 10 mg tab(s) (NORVASC) 10 mg ORAL/FEEDING TUBE DAILY busPIRone 10 mg tab(s) (BUSPAR) 10 mg ORAL/FEEDING TUBE BID senna-docusate 8.6-50 mg 1 tablet (SENNA-S) 1 tablet ORAL/FEEDING TUBE BID and Prescriptions Prior to Admission: busPIRone (BUSPAR) 10 mg tablet Take 10 mg by mouth twice daily. Disp: Rfl: Taking albuterol sulfate (ACCUNEB INHALATION) Inhale 2.5 mg as instructed every 6 hours as needed. Disp: Rfl: Taking ALPRAZolam (XANAX) 0.5 mg tablet 0.5 mg by PEG route three times daily as needed. Disp: Rfl: Taking BACLOFEN ORAL 10 mg by PEG Tube route three times daily. Disp: Rfl: Taking famotidine (PEPCID) 20 mg tablet 20 mg by PEG route once daily. Disp: Rfl: Unknown furosemide (LASIX) 20 mg tablet 20 mg by PEG route once daily. Disp: Rfl: Taking lacosamide (VIMPAT) 200 mg tab 200 mg by PEG route twice daily. Disp: Rfl: Taking metoprolol tartrate, short acting, (LOPRESSOR) 50 mg tablet 50 mg by PEG route twice daily. Disp: Rfl: Unknown oxyCODONE IR (ROXICODONE) 5 mg immediate release tablet Take 5 mg by mouth every 6 hours as needed. Disp: Rfl: Taking QUEtiapine (SEROQUEL) 50 mg tablet 50 mg by PEG route daily at bedtime. Disp: Rfl: Taking acetaminophen (TYLENOL) 650 mg/20.3 mL soln 15.62-31.23 mL by NASOGASTRIC route every 6 hours as needed. (Patient taking differently: 500-1,000 mg by PEG route every 6 hours as needed. ) Disp: Rfl: Taking nystatin (MYCOSTATIN) 100,000 units/mL susp Take 5 mL by mouth four times daily. Disp: Rfl: Taking ipratropium-albuterol (DUONEB) 0.5 mg-3 mg(2.5 mg base)/3 mL nebu Inhale 3 mL as instructed every 4 hours as needed. (Patient taking differently: Inhale 3 mL as instructed four times daily. ) Disp: Rfl: Taking metoprolol tartrate, short acting, (LOPRESSOR) 25 mg tablet Take 3 tablets by mouth every 8 hours. Disp: Rfl: Taking amLODIPine (NORVASC) 10 mg tablet Take 1 tablet by mouth once daily. (Patient taking differently: 5 mg by PEG route once daily. ) Disp: Rfl: Taking Chlorhexidine Gluconate (PERIDEX) 0.12 % solution Take 15 mL by mouth every 6 hours. Disp: Rfl: Taking budesonide (PULMICORT) 1 mg/2 mL nebulizer solution Use 2 mL via nebulizer twice daily. (Patient taking differently: Use 1 mg via nebulizer once daily. ) Disp: Rfl: Unknown heparin 5,000 unit/mL injection Inject 1 mL subcutaneously every 12 hours. (Patient not taking: Reported on 01/16/2018 ) Disp: Rfl: Not Taking dextrose 50% in water solution Inject 25 mL intravenously as needed. Disp: Rfl: Taking senna-docusate (SENNA-S) 8.6-50 mg per tablet Take 1 tablet by mouth twice daily. Disp: Rfl: Taking bisacodyl (DULCOLAX) 10 mg supp 1 Suppository by RECTAL route once daily as needed. Disp: Rfl: Taking furosemide (LASIX) 20 mg/2 mL soln Inject 2 mL intravenously once daily. Disp: Rfl: Taking therapeutic multivitamin (THERA VITAMIN) tablet Take 1 tablet by mouth once daily. (Patient taking differently: 1 tablet by PEG route once daily. ) Disp: Rfl: Taking aspirin 81 mg chewable tablet Take 1 tablet by mouth once daily. (Patient not taking: Reported on 01/16/2018 ) Disp: Rfl: Not Taking potassium chloride (KLOR-CON) 20 mEq packet 40-120 mEq by ORAL/FEEDING TUBE route as needed (low potassium). (Patient taking differently: 40 mEq by ORAL/FEEDING TUBE route once daily. ) Disp: Rfl: Taking zinc oxide-cod liver oil (DESITIN 40%) 40 % paste Apply 1 application to affected area twice daily. Disp: Rfl: Taking pantoprazole (PROTONIX) 40 mg/20 mL 10 mL by ORAL/FEEDING TUBE route DAILY (6 AM). Disp: Rfl: Unknown lacosamide (VIMPAT) 100 mg/10 mL Take 20 mL by mouth every 12 hours. (Patient not taking: Reported on 01/16/2018 ) Disp: Rfl: Not Taking ALLERGIES ALLERGIES Allergen Reactions - Cats - Grass Pollen Itching PERTINENT PHYSICAL EXAM and INITIAL ASSESSMENT (For vital signs prior and during MET call, see nursing documentation) Pertinent Vital Signs at Time of MET Call: see AMET nurse documentation Appearance: Severe distress Airway Examination: Mallampati Class II = soft palate AND uvula Airway Patent: Yes Breathing Evaluation: Use of accessory respiratory muscles and Asymmetric chest rise Breathing Adequate: No Circulation Evaluation: Skin Ashen Circulation Adequate: Yes Neurologic Evaluation: GCS Evaluation: 4. Spontaneous, 5: Oriented 6: Obeys Motor commands Is the Level of Consciousness at Baseline: Yes Additional Physical Exam Findings: Head/Eyes: PERRLA Skin: dry Lungs: decreased breath sounds and respiratory effort: abnormal Abdomen: soft Extremities: normal exam of the extremities PERTINENT DIAGNOSTICS Labs (Reviewed and include): ABGs BMP Recent Labs 01/16/18 1630 GLUC 89 K 3.7 NA 144 CHLOR 103 CO2 25 CREAT 0.68* BUN 18 ANION 16 CA 9.4 CBC Recent Labs 01/18/18 1508 HB 14.7 HCT 44.7 RBC 4.73 WBC 12.26* PLT 303 Bedside POC: ABG EKG: Imaging: INTERVENTIONS Basic Intervention: Oxygen Administered Respiratory Intervention: Intubation at time of 15:40. See separate Airway Management Note. Monitoring End-tidal CO2 and Pulse Oximetry Intervention Response: Improved Primary Team Aware/Notified: Yes Critical Care Time: I personally spent 60 minutes directly supervising and providing critical care in the prevention of imminent deterioration as noted above, exclusive of any procedures I performed or supervised. I have reviewed, approved and signed the paper MET note. Please refer to this for complete orders and nursing/respiratory documentation. SIGNATURE: Justin Pizano MD PATIENT NAME: Jose Gustafson DATE: January 18, 2018 TIME: 3:53 PM PAGER: [phone] PROGRESS Observed: 01/18/2018 Status: COMPLETED Source: [place] 3:44 PM [facility] REPOSITORY HNO ID: [id number] Author: Mary Lou Castillo Service: Neurosurgery Author Type: Nurse Practitioner Type: Progress Notes Filed: 01/18/2018 3:52 PM Note Text: ~ 15:10 AMET activated for patient's increased work of breathing and increased oxygen demand currently on 15 NC but pulse ox 92% O Vital Signs BP 117/68 Pulse 78 Temp 37.1 ?C (98.7 ?F) (Oral) Resp 18 Wt 64.9 kg (143 lb) SpO2 92% BMI 19.39 kg/m? Alert/ Oriented to person, place and time PERRL No neurological changes from previous neuro assessment Respiratory: Tachypnic, using accessory muscles Decreased breath sounds anteriorly with scattered rhonchi Cardiac:Normal sinus rhythm on tele Plan Patient being intubated by AMET staff -Will transfer to MICU for close monitoring - CT lung PE protocol ordered - Called Pt's spouse ( Dana) and updated Mary Lou Castillo APRN.CNP January 18, 2018 3:51 PM HISTORY PHYSICAL Observed: 01/18/2018 Status: COMPLETED Source: [place] 3:28 PM [facility] REPOSITORY HNO ID: [id number] Author: Milady Rader (Pa) Service: Critical Care Author Type: Physician Vise Hand Type: HANDP Filed: 01/18/2018 5:25 PM Note Text: HISTORY AND PHYSICAL EXAMINATION SERVICE DATE: 01/18/2018 PRIMARY CARE PHYSICIAN: No Pcp Subjective CHIEF COMPLAINT: Acute Hypoxic Respiratory Failure HPI: This is a 52 year old male who presents with His pmhx is significant for aortic dissection s/p surgical repair 10/07/17 with subsequent R MCA stroke s/p decompressive crani on 10/12. His course was also c/b vocal cord paralysis for which he never followed up on. with plans for cranioplast on 01/20. He was admitted on 01/16 with new cough/fever. He had worsening hypoxia throughout this admission, originally on RA when he was admitted on 01/16 and then on 01/18 required 50% VM. CXR showed lower lung opacity concerning for pneumonia. He was started on Levofloxacin today, 01/18. AMET was called on 01/18 for worsening tachypnea. On arrival, the patient at RR in the 50's and pO2 of 40% on ABG. He was emergently intubated and transferred to MICU. PAST MEDICAL HISTORY Diagnosis Date - Acute kidney injury (HCC) 10/09/2017 - Aortic dissection (HCC) - History of kidney stones - Hypertension - Stroke (cerebrum) (HCC) 10/11/2017 - Unspecified asthma(493.90) PAST SURGICAL HISTORY Procedure Laterality Date - [facility] Colonoscopy - LITHOTRIPSY EXTRACORP SHOCK WAVE(ESWL) 18 months ago - PAST SURGICAL HISTORY OF 2012 left ankle ORIF- hardware - PAST SURGICAL HISTORY OF 2012 ORIF left wrist - hardware - REMOVAL OF HEEL SPUR 2002, 2004 Bilateral - REPAIR ING HERNIA,5+Y/O,REDUCIBL Hernia repair, inguinal, as infant FAMILY HISTORY Problem Relation Age of Onset - Stroke Father age 48 of CVA - Asthma Paternal Grandfather Social History Substance Use Topics - Smoking status: Former Smoker Types: Cigars Quit date: 10/10/2017 - Smokeless tobacco: Never Used - Alcohol use 6.0 oz/week 4 Cans of Beer (12oz) per week Prescriptions Prior to Admission: busPIRone (BUSPAR) 10 mg tablet Take 10 mg by mouth twice daily. Disp: Rfl: Taking albuterol sulfate (ACCUNEB INHALATION) Inhale 2.5 mg as instructed every 6 hours as needed. Disp: Rfl: Taking ALPRAZolam (XANAX) 0.5 mg tablet 0.5 mg by PEG route three times daily as needed. Disp: Rfl: Taking BACLOFEN ORAL 10 mg by PEG Tube route three times daily. Disp: Rfl: Taking famotidine (PEPCID) 20 mg tablet 20 mg by PEG route once daily. Disp: Rfl: Unknown furosemide (LASIX) 20 mg tablet 20 mg by PEG route once daily. Disp: Rfl: Taking lacosamide (VIMPAT) 200 mg tab 200 mg by PEG route twice daily. Disp: Rfl: Taking metoprolol tartrate, short acting, (LOPRESSOR) 50 mg tablet 50 mg by PEG route twice daily. Disp: Rfl: Unknown oxyCODONE IR (ROXICODONE) 5 mg immediate release tablet Take 5 mg by mouth every 6 hours as needed. Disp: Rfl: Taking QUEtiapine (SEROQUEL) 50 mg tablet 50 mg by PEG route daily at bedtime. Disp: Rfl: Taking acetaminophen (TYLENOL) 650 mg/20.3 mL soln 15.62-31.23 mL by NASOGASTRIC route every 6 hours as needed. (Patient taking differently: 500-1,000 mg by PEG route every 6 hours as needed. ) Disp: Rfl: Taking nystatin (MYCOSTATIN) 100,000 units/mL susp Take 5 mL by mouth four times daily. Disp: Rfl: Taking ipratropium-albuterol (DUONEB) 0.5 mg-3 mg(2.5 mg base)/3 mL nebu Inhale 3 mL as instructed every 4 hours as needed. (Patient taking differently: Inhale 3 mL as instructed four times daily. ) Disp: Rfl: Taking metoprolol tartrate, short acting, (LOPRESSOR) 25 mg tablet Take 3 tablets by mouth every 8 hours. Disp: Rfl: Taking amLODIPine (NORVASC) 10 mg tablet Take 1 tablet by mouth once daily. (Patient taking differently: 5 mg by PEG route once daily. ) Disp: Rfl: Taking Chlorhexidine Gluconate (PERIDEX) 0.12 % solution Take 15 mL by mouth every 6 hours. Disp: Rfl: Taking budesonide (PULMICORT) 1 mg/2 mL nebulizer solution Use 2 mL via nebulizer twice daily. (Patient taking differently: Use 1 mg via nebulizer once daily. ) Disp: Rfl: Unknown heparin 5,000 unit/mL injection Inject 1 mL subcutaneously every 12 hours. (Patient not taking: Reported on 01/16/2018 ) Disp: Rfl: Not Taking dextrose 50% in water solution Inject 25 mL intravenously as needed. Disp: Rfl: Taking senna-docusate (SENNA-S) 8.6-50 mg per tablet Take 1 tablet by mouth twice daily. Disp: Rfl: Taking bisacodyl (DULCOLAX) 10 mg supp 1 Suppository by RECTAL route once daily as needed. Disp: Rfl: Taking furosemide (LASIX) 20 mg/2 mL soln Inject 2 mL intravenously once daily. Disp: Rfl: Taking therapeutic multivitamin (THERA VITAMIN) tablet Take 1 tablet by mouth once daily. (Patient taking differently: 1 tablet by PEG route once daily. ) Disp: Rfl: Taking aspirin 81 mg chewable tablet Take 1 tablet by mouth once daily. (Patient not taking: Reported on 01/16/2018 ) Disp: Rfl: Not Taking potassium chloride (KLOR-CON) 20 mEq packet 40-120 mEq by ORAL/FEEDING TUBE route as needed (low potassium). (Patient taking differently: 40 mEq by ORAL/FEEDING TUBE route once daily. ) Disp: Rfl: Taking zinc oxide-cod liver oil (DESITIN 40%) 40 % paste Apply 1 application to affected area twice daily. Disp: Rfl: Taking pantoprazole (PROTONIX) 40 mg/20 mL 10 mL by ORAL/FEEDING TUBE route DAILY (6 AM). Disp: Rfl: Unknown lacosamide (VIMPAT) 100 mg/10 mL Take 20 mL by mouth every 12 hours. (Patient not taking: Reported on 01/16/2018 ) Disp: Rfl: Not Taking ALLERGIES Allergen Reactions - Cats - Grass Pollen Itching COMPLETE REVIEW OF SYSTEMS: Unable to obtain. Patient sedated from intubation. Objective PHYSICAL EXAM: Physical Exam Performed: GENERAL: Alert, no distress, cooperative SKIN: Skin color, texture, turgor normal. No rashes or lesions. LUNGS: Diminished bilaterally CARDIAC: Regular rate and rhythm ABDOMEN: Abdomen soft, non-tender, BS normal, No masses or organomegaly PULSES: 2+ radial, 2+ dorsalis pedis BP 117/68 Pulse 78 Temp (Src) 98.7 (Oral) Resp 18 Wt 143 lb (64.9kg) SpO2 92% DATA: Diagnostic tests reviewed for today's visit: Most recent labs and imaging results. Assessment/Plan Active Hospital Problems as of 01/18/2018 Noted - Resolved Neurology Acute ischemic right MCA stroke (HCC) 10/11/2017 - Present Overview L sided weakness 10/11; CTH with large R MCA infarct with associated mass effect. Repeat imaging with evolution of R MCA infarct with increased edema 10/12/2017 - Right decompressive hemicraniectomy for R MCA stroke and malignant cerebral edema 10/20/17 CT Petechial hemorrhage within the evolving right MCA territory infarct, unchanged. Current Assessment AND Plan Assessment: - Per notes, awake and following commands on right side - attempts to mouth words PLAN: f/u with Neurology about surgical plans Pulmonary Acute respiratory failure with hypoxia (HCC) 01/18/2018 - Present Overview 10/17/17-tracheostomy s/p trach removal at the end of November per 01/18/18: AMET called to [facility] for tachypnea, RR of 50's and ABG showed pO2 of 42%. Intubated by AMET. Current Assessment AND Plan Assessment: - Etiology: Infection (PNA) vs Aspiration vs PE - 01/17 lower extremity DVT (-) - was receiving appropriate diuresis on the floor - CXR without large focal opacity or fluid overload PLAN: - wean MV as tolerated - repeat CXR - ABG - send blood cx's - send RVP - consider echo and evaluate for RV strain - continue Levofloxacin (01/17-*) ENT Vocal cord paralysis 01/18/2018 - Present Overview Hx of vocal cord paralysis following repair of AAA Current Assessment AND Plan Assessment: - ENT was consulted upon admission to r/o aspiration. Flexible laryngoscopy showed immobile left vocal cord and mobile right vocal cord. As a result, that the patient is aspirating is a possibility - Evaluated by speech and swallow who recommend that hte patient is not aspiration, but is at risk of aspiration PLAN: - monitor - will need close follow up to r/o aspiration risk once extubated Gastrointestinal Severe protein-calorie malnutrition (HCC) 10/13/2017 - Present Overview A/P: Tolerating TF at goal. Current Assessment AND Plan Nephrology Enterococcus UTI 01/18/2018 - Present Overview Urine cx 01/16 with Enterococcus faecalis Current Assessment AND Plan Assessment: - ? colonization Plan: - follow susceptibilities - continue abx Musculoskeletal * (Principal)Acquired skull defect 10/18/2017 - Present Overview S/p right hemicraniectomy A/P: Neurosurg signed off: helmet for discharge (orthotics consulted), follow-up in [address] Florence Sharif, flap closure will be in 2-3 months. Current Assessment AND Plan Other History of cranioplasty 01/16/2018 - Present Overview Added automatically from request for surgery [id number] Current Assessment AND Plan Status post craniectomy 01/16/2018 - Present Current Assessment AND Plan Assessment: -s/p right hemicraniectomy PLAN: - continue helmet when out of bed - do not place pressure on right side of head - will need flap closure Medication and Non-Pharmacologic VTE Prophylaxis/Anticoagulants Anticoagulant AND Antiplatelet Medications Start Dose Route Frequency Ordered Stop 01/19/18 0900 heparin 5,000 Units injection (Surgical Moderate Risk ) 5,000 Units SUBCUTANEOUS EVERY 12 HOURS 01/16/18 1430 -- 01/16/18 1430 pneumatic compression stockings (wv,wv) VTE Prophylaxis: VTE prophylaxis appropriate SIGNATURE: Milady Rader PA-C PATIENT NAME: Jose Gustafson DATE: January 18, 2018 TIME: 3:29 PM PAGER/CONTACT #: [phone] CBC Collected: 01/18/2018 Status: F Source: [place] 3:08 PM [facility] REPOSITORY TYPE CODE TESTS RESULT OUT OF REFERENCE UNITS RANGE LAB WBC 3.70-11.00 k/uL WBC High 12.26 LAB RBC 4.20-6.00 m/uL RBC 4.73 LAB HGB 13.0-17.0 g/dL Hemoglobin 14.7 LAB HCT 39.0-51.0 % Hematocrit 44.7 LAB MCV 80.0-100.0 fL MCV 94.5 LAB MCH 26.0-34.0 pG MCH 31.1 LAB MCHC 30.5-36.0 g/dL MCHC 32.9 LAB RDWCV 11.5-15.0 % RDW-CV 12.1 LAB PLTCT 150-400 k/uL Platelet Count 303 LAB MPV 9.0-12.7 fL MPV 9.0 LAB ABSNUC <0.01 k/uL Absolute nRBC <0.01 Performed By: #### CBC, BMP, MG1, PHOS #### [facility] [address] [place], [place] [address] BASIC METABOLIC PANL Collected: 01/18/2018 Status: F Source: [place] 3:08 PM [facility] REPOSITORY TYPE CODE TESTS RESULT OUT OF REFERENCE UNITS RANGE LAB GLU 74-99 mg/dL Glucose 94 Result Comment: The [place] Diabetes Association (ADA) provides guidance for cutoff values for fasting glucose and random glucose. The ADA defines fasting as no caloric intake for at least 8 hours. Fas ting plasma glucose results between 100 to 125 mg/dL indicate increased risk for diabetes (prediabetes). Fasting plasma glucose results greater than or equal to 126 mg/dL meet the criteria for diagnosis of diabetes. In the absence of unequivocal hyperglycemia, results should be confirmed by repeat testing. In a patient with classic symptoms of hyperglycemia or hyperglycemic crisis, random plasma glucose results greater than or equal to 200 mg/dL meet the criteria for diagnosis of diabetes. Reference: Standards of Medical Care in Diabetes 2016, [place] [employer] Association. Diabetes Care. 2016.39(Suppl 1). LAB BUN 9-24 mg/dL BUN 14 LAB CRET 0.73-1.22 mg/dL Creatinine 0.76 LAB NA 136-144 mmol/L Sodium High 145 LAB K 3.7-5.1 mmol/L Low Potassium 3.4 LAB CL 97-105 mmol/L Chloride 104 LAB CO2 22-30 mmol/L CO2 26 LAB AGAP 9-18 mmol/L Anion Gap 15 LAB CA 8.5-10.2 mg/dL Calcium, Total 9.4 LAB GFRAA eGFR- Amer. >60 LAB GFRNAA . eGFR-All Other Races >60 Result Comment: eGFR (Estimated GFR) Units of measure: mL/min/1.73 meters squared eGFR is derived from the reexpressed MDRD Study equation using the following parameters: serum creatinine, age, gender and race. The creatinine assay has been calibrated to be traceable to IDMS. An eGFR <60 mL/min/1.73m2 for >3 months is consistent with chronic kidney disease. Refer to KDOQI guidelines for clinical interpretation. In patients with unstable renal function, e.g. those with acute kidney injury, the eGFR may not accurately reflect actual GFR. Performed By: #### CBC, BMP, MG1, PHOS #### [facility] [address] [place] [address] MAGNESIUM Collected: 01/18/2018 Status: F Source: [place] 3:08 PM [facility] REPOSITORY TYPE CODE TESTS RESULT OUT OF REFERENCE UNITS RANGE LAB MG 1.7-2.3 mg/dL Magnesium 1.9 Performed By: #### CBC, BMP, MG1, PHOS #### [facility] [address] [place] [id number] PHOSPHORUS Collected: 01/18/2018 Status: F Source: [place] 3:08 PM [facility] REPOSITORY TYPE CODE TESTS RESULT OUT OF REFERENCE UNITS RANGE LAB PHOS 2.7-4.8 mg/dL Phosphorus 4.0 Performed By: #### CBC, BMP, MG1, PHOS #### [facility] [address] [place], [place] [address] CONSULT PROG Observed: 01/18/2018 Status: COMPLETED Source: [place] 2:45 PM [facility] REPOSITORY HNO ID: [id number] Author: Daryl Jones Service: General Internal Medicine Author Type: Physician Type: Consult Progress Note Filed: 01/18/2018 3:03 PM Note Text: DEPARTMENT OF HOSPITAL MEDICINE CONSULT PROGRESS NOTE SERVICE DATE: 01/18/2018 SERVICE TIME: 2:45 PM Primary Care Physician: Stefania Pcp NIGHT AND WEEKEND COVERAGE: [id number] Subjective INTERVAL HPI: Patient seen on 01/16 for pre-op Called by primary team this am for evaluation of hypoxia Patient was on RA on 01/16, on 5 lpm on 01/17. He was placed on 50% VM early this am and then down to 7 lpm late morning Patient denies SOB Is the Patient Experiencing Pain: No: 0 on a scale of 0 to 10 MEDICATIONS: Reviewed Current hospital medications: furosemide 20 mg injection (LASIX) 20 mg INTRAVENOUS DAILY ALPRAZolam 0.5 mg tab(s) (XANAX) 0.5 mg PEG TID PRN venlafaxine 75 mg tab(s) (EFFEXOR) 75 mg ORAL BID w MEALS metoprolol tartrate (short acting) (LOPRESSOR) tab(s) 75 mg 75 mg ORAL q 8 H acetaminophen 650 mg tab(s) (TYLENOL) 650 mg ORAL q 4 H PRN oxyCODONE-acetaminophen 5-325 mg 1-2 tablet (PERCOCET) 1-2 tablet ORAL q 4 H PRN labetalol 5-10 mg injection syringe (NORMODYNE) 5-10 mg INTRAVENOUS q 10 MIN PRN ondansetron (PF) 4 mg injection (ZOFRAN) 4 mg INTRAVENOUS q 6 H PRN prochlorperazine 25 mg suppository (COMPAZINE) 25 mg RECTAL q 12 H PRN docusate 100 mg CUP (COLACE) 100 mg ORAL/FEEDING TUBE BID [START ON 01/19/2018] heparin 5,000 Units injection 5,000 Units SUBCUTANEOUS q 12 H lacosamide 200 mg in NaCl 0.9% 50 mL (VIMPAT) 200 mg INTRAVENOUS q 12 H pantoprazole 40 mg injection (PROTONIX) 40 mg INTRAVENOUS DAILY (6 AM) amLODIPine 10 mg tab(s) (NORVASC) 10 mg ORAL/FEEDING TUBE DAILY busPIRone 10 mg tab(s) (BUSPAR) 10 mg ORAL/FEEDING TUBE BID senna-docusate 8.6-50 mg 1 tablet (SENNA-S) 1 tablet ORAL/FEEDING TUBE BID Objective PHYSICAL EXAM: BP 117/68 Pulse 78 Temp (Src) 98.7 (Oral) Resp 18 Wt 143 lb (64.9kg) SpO2 92% Physical Exam Performed: AAO In no respiratory distress, takes shallow breaths through the mouth, no accessory muscle use, no nasal flaring Saturating 91-92% on 8 lpm RR 28-32 CV: Regular rate and rhythm Pulm: diminished AE bilaterally, poor inspiratory effort. suboptimal exam even with 3 person assist Abd: Soft, NT, ND, BS+ Ext: No edema Lines, Drains, and Airways Line Peripheral 01/16/18 1630 Right Forearm 18 Gauge 1 day Peripheral 01/16/18 1635 Right 20 Gauge 1 day Drain Condom Catheter 01/17/18 0830 1 day DATA: Diagnostic tests reviewed for today's visit: Most recent imaging CT chest from October 2017 CXR 01/16, 01/18 Impression/Recommendations Principal Problem: New hypoxia - AMET RT was called at bedside for assessment - Patient currently in no respiratory distress but requiring 8 lpm O2 - ABG being drawn by RT - Based on ABG results, patient may be suitable for step down or ICU - RLL opacity more prominent today, patient coughing greenish phlegm. Reasonable to start levaquin (ordered) - Not tachycardic, low suspicion for PE at this time - Patient is not fluid overloaded and does not need aggressive diuresis (lasix discontinued) - Left karen diaphragmatic paralysis likely based on significant elevation of the same on CXR. Left vocal cord and diaphragmatic palsies explained by open heart surgery in September 2017 and possible injury sustained to the recurrent laryngeal and phrenic nerves. Pyuria, indwelling christian, unclear if colonization or true infection. - E faecalis not susceptible to cephalosporins as noted in micro results, Please wait until susceptibilities resulted. VTE PROPHYLAXIS: Heparin 5000 units Sub Q BID Plan of care discussed with: Other RT, neuro surgery resident and [employer] AUTHOR on floor SIGNATURE: Daryl Jones MD PATIENT NAME: Jose Gustafson DATE: January 18, 2018 TIME: 2:45 PM PAGER/CONTACT #: [phone] etx [phone] PREALBUMIN Collected: 01/18/2018 Status: F Source: [place] 1:16 PM [facility] REPOSITORY TYPE CODE TESTS RESULT OUT OF REFERENCE UNITS RANGE LAB PREALB 17-36 mg/dL Low Prealbumin 16 Performed By: #### PREALB #### [facility] [address] [place], [place] [address] PROGRESS Observed: 01/18/2018 Status: COMPLETED Source: [place] 12:48 PM [facility] REPOSITORY HNO ID: [id number] Author: Cirilo De La Cruz Service: Neurosurgery Author Type: Resident Type: Progress Notes Filed: 01/18/2018 10:19 PM Note Text: Neurosurgery Inpatient Progress Note PATIENT NAME: Jose Gustafosn MEDICATIONS: Current hospital medications: furosemide 20 mg injection (LASIX) 20 mg INTRAVENOUS DAILY ALPRAZolam 0.5 mg tab(s) (XANAX) 0.5 mg PEG TID PRN venlafaxine 75 mg tab(s) (EFFEXOR) 75 mg ORAL BID w MEALS metoprolol tartrate (short acting) (LOPRESSOR) tab(s) 75 mg 75 mg ORAL q 8 H acetaminophen 650 mg tab(s) (TYLENOL) 650 mg ORAL q 4 H PRN oxyCODONE-acetaminophen 5-325 mg 1-2 tablet (PERCOCET) 1-2 tablet ORAL q 4 H PRN labetalol 5-10 mg injection syringe (NORMODYNE) 5-10 mg INTRAVENOUS q 10 MIN PRN ondansetron (PF) 4 mg injection (ZOFRAN) 4 mg INTRAVENOUS q 6 H PRN prochlorperazine 25 mg suppository (COMPAZINE) 25 mg RECTAL q 12 H PRN docusate 100 mg CUP (COLACE) 100 mg ORAL/FEEDING TUBE BID [START ON 01/19/2018] heparin 5,000 Units injection 5,000 Units SUBCUTANEOUS q 12 H lacosamide 200 mg in NaCl 0.9% 50 mL (VIMPAT) 200 mg INTRAVENOUS q 12 H pantoprazole 40 mg injection (PROTONIX) 40 mg INTRAVENOUS DAILY (6 AM) amLODIPine 10 mg tab(s) (NORVASC) 10 mg ORAL/FEEDING TUBE DAILY busPIRone 10 mg tab(s) (BUSPAR) 10 mg ORAL/FEEDING TUBE BID senna-docusate 8.6-50 mg 1 tablet (SENNA-S) 1 tablet ORAL/FEEDING TUBE BID LABS: CBC, Coags, BMP, Mg, Phos Recent Labs 01/16/18 1630 01/16/18 1019 WBC 10.01 10.42 HB 12.7* 13.3 HCT 37.9* 39.3 PLT 264 279 INR 1.0 1.0 APTT 36.7* 36.3* NA 144 141 K 3.7 3.9 CHLOR 103 104 CO2 25 25 BUN 18 19 CREAT 0.68* 0.70* GLUC 89 100* CA 9.4 9.3 CSF AND Dilantin Liver Function, Amylase, AND Lipase Recent Labs 01/16/18 1630 TPROT 6.3 ALB 3.3* ALT 18 AST 14 ALKPHOS 68 TBILI 0.8 Cardiac Enzymes ABGs VITAL SIGNS 24 HOUR REVIEW: 01/18/18 0115 01/18/18 0330 01/18/18 0508 01/18/18 0943 BP: 121/69 106/66 103/65 Pulse: 68 64 67 Resp: 16 20 18 Temp: 36.7 ?C (98 ?F) 36.8 ?C (98.2 ?F) 36.6 ?C (97.8 ?F) TempSrc: Oral Oral Oral SpO2: 91% 93% 89% 91% Weight: INTERVAL HPI Respiratory difficulty overnight RT ordered, CXR shows edema Lasix restarted (not administered x 2) OBJECTIVE: Awake, hypophonic AOx3 PERRL, EOMI L facial droop, TM RUE no drift RUE, RLE 5/5 LUE, LLE 0/5 A/P: 52 year old RH male w/ PMH significant for aortic dissection s/p surgical repair 10/07/17 with subsequent R MCA stroke s/p decompressive crani w/ cough, scheduled for cranioplasty on 01/20 - neuro as above - plan for OR on Saturday if stable, has been preoped, consented - ENT recs: no need for inpatient followup if no aspiration - MBS 01/17 - no aspiration, on dysphagia level 3 diet - Will ask medicine for assistance given issues - Start empiric abx for UTI - continue lasix, f/u CXR, may need PNA coverage if respiratory status not improving - Obtain calorie counts, pre-albumin, nutrition consult for Severe Protein Calorie Malnutrition - f/u urine cultures, continue cough and infectious w/u - SCDs, SQH Signature Cirilo De La Cruz MD PGY-2, Neurosurgery January 18, 2018 12:51 PM Pager [phone] Page [phone] after 6 pm and on weekends XR CHEST 1V FRONTAL Observed: 01/18/2018 Status: F Source: [facility] 5:33 AM [facility] [place] REPOSITORY * * *Final Report* * * DATE OF EXAM: Jan 18 2018 5:33AM GENE [id number] - XR CHEST 1V FRONTAL PORT / PROCEDURE REASON: Shortness of breath * * * * Physician Interpretation * * * * EXAMINATION: CHEST RADIOGRAPH (PORTABLE SINGLE VIEW AP) Exam Date/Time: 01/18/2018 5:33 AM Clinical History: Shortness of breath MQ: [id number] Comparison: 2 days prior RESULT: See impression. IMPRESSION: Lines, tubes, and devices: The patient is status post median sternotomy. Lungs and pleura: There is elevation of the left hemidiaphragm. Small bilateral pleural effusions are noted with adjacent atelectasis. Superimposed process such as aspiration/pneumonia cannot be excluded in the lower lungs. No definite pneumothorax is noted. Cardiomediastinal silhouette: Cardiomediastinal silhouette is stable in size. Endovascular stent graft is noted in the descending thoracic aorta. Other: Surgical clips are noted in the right axilla. Silver Wrapper: PSCB Transcribe Date/Time: Jan 18 2018 9:34A Dictated by : EFREN RAMIREZ MD This examination was interpreted and the report reviewed and electronically signed by: EFREN RAMIREZ MD on Jan 18 2018 9:36AM EST [id number] NURSING PROG Observed: 01/18/2018 Status: COMPLETED Source: [place] 1:15 AM [facility] [place] REPOSITORY HNO ID: [id number] Author: Joyce RobertsRn) HERMINIO Gonzalez Service: (none) Author Type: Registered Nurse Type: Nursing Progress Note Filed: 01/18/2018 6:58 AM Note Text: SpO2 = 91% on 5 L TERESA Massey paged and notifed: will review chart. 0220: order rcv'ed for Lasix amd CXR. 0400: since Lasix given, + 1100 ml urine plus large incon. SpO2 93% on 4 L NC. PA updated. 0511: SpO2 now 87% on 4-5 L. PA Bryson paged and notified. 0530: JO Dr. Negrete in to see pt. 0600: RT in to see pt. Placed pt on VM. PLAN OF CARE Observed: 01/17/2018 Status: COMPLETED Source: [place] 6:01 PM [facility] [place] REPOSITORY HNO ID: [id number] Author: Lary (Res) MD Nguyen Service: Otolaryngology Author Type: Resident Type: Plan of Care Filed: 01/17/2018 6:02 PM Note Text: ENT Plan of Care Reviewed Swallow Study results which did not identify any aspiration events. - Diet per speech therapy - Outpatient follow up with a luncheonette operator (order placed) Signature: Lary Cedillo MD Otolaryngology, PGY1 Pager: [phone] For questions after hours or on weekends please page [phone]. CASE MGT INIT Observed: 01/17/2018 Status: COMPLETED Source: 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 No Advance Directive: Yes, copy in chart. Health Literacy: 1. How often do you need to have someone help you when you read instructions, pamphlets, or other written material from your doctor or pharmacy? Often - 4 2. How confident are you filling out medical forms by yourself? A little bit - 4 If Patient scores > 3 on either question, the following interventions were put into place: Use concrete and specific phrases, avoid medical jargon, Sit with Patient and have pt.'s assist. FUNCTIONAL AND COGNITIVE/BEHAVIORAL PRIOR TO ADMISSION ASSESSMENT: Unable to complete assessment at this time due to Pt. came from SNF, medications were administer to him. Has the Patient Been in a Penitentiary Facility in the Past 30 days? Yes. Where and Dates: [facility], for the past week. SOCIAL: Living Arrangement: Home, Nursing Facility [facility] (Level of Care: SNF Bed Hold Days: TBD.) Lives With: Spouse Financial Resources: N/A Primary Contact: Extended Emergency Contact Information Primary Emergency Contact: Dana Gustafson Address: [address] [place] [address] Relation: Spouse Supportive: Yes Other Important Patient Contacts: None Caregiver Assessment: Caregiver is ready, willing and able to meet the patient's needs as recommended by the inter-professional team? No Patient's transition needs and plan for meeting these needs: Pt. will dc to a rehab facility, pending therapy evals. Does the patient have an acute stroke diagnosis, or has the patient had a stroke during this admission? No Medicaiton Adherence: Patient is unable to complete at this time due to pt. from a facility, medications administered by a nurse.. Are you interested in bedside delivery of your medications? No Food Concerns: In the Last Month, Have You had Trouble Getting Food? No trouble getting food During the Last Month, Have You Worried Whether Your Food Would Run Out Before You Had Enough Money to Buy More? No Is the Patient Psychosocially Complex? No ASSESSMENT AND PLAN: Medical Needs: 2 or more chronic diseases Psychosocial Needs: None FREEDOM OF CHOICE EXPLAINED: TCC will f/u with family post op. POTENTIAL TRANSITION PLANS Penitentiary Facility/Intermediate Care Facility Pt. discussed in huddle today. Presents as preadmit for cranioplasty tomorrow, c/f cough / fever, here for infectious workup. Pt. from [facility]. TCC will continue to follow. SIGNATURE: Kiki Alicea RN PATIENT NAME: Jose Gustafson DATE: January 17, 2018 TIME: 5:32 PM PAGER/CONTACT #: [phone] NUTRITION Observed: 01/17/2018 Status: COMPLETED Source: [place] 4:16 PM [facility] REPOSITORY HNO ID: [id number] Author: Power Morrison Service: Nutrition Therapy Author Type: Registered Dietitian Type: Nutrition Filed: 01/17/2018 5:19 PM Note Text: NUTRITION THERAPY INITIAL ASSESSMENT SERVICE DATE: 01/17/2018 SERVICE TIME: 3:00 PM RECOMMENDED MALNUTRITION DIAGNOSIS: SEVERE PROTEIN-CALORIE MALNUTRITION In the context of Chronic Illness or Injury based on: Unintentional Weight Loss: >10% in 6 months Muscle Loss Severe Loss NUTRITION CARE PLAN: Problem, Etiology and Signs/Symptoms: Malnutrition related to inability to consume sufficient nutrients as evidenced by 27.2% weight loss x 6 months and muscle/fat depletion Intervention: 1. Dysphagia level 3 (advanced), thin liquids at this time per SERGER 2. Ensure Enlive TID, provides 1050 kcal, 60 g protein 3. Recommend addition of standard MVI with minerals 4. Please obtain reweigh as medically able, weight of 143# at OSH, confirmed accuracy with family at bedside 5. Will closely trend intakes and need for concurrent enteral nutrition initiation in context of rapid weight loss x 6 months 6. Closely trend lytes, replacement PRN per primary, highly recommend Mag/Phos ck 7. Please provide feeding assistance, meal set-up during all meals/snacks Monitor and Evaluation: Goal: Meet >75% of estimated needs Monitor fluid/electrolyte balance Monitor labs, I/Os, vital signs, weight Discharge Nutrition Recommendations: Diet: Altered consistency diet per SERGER Supplements: High calorie/protein dense supplementation TID for intake adequacy, weight gain, LBM anabolic promotion Per HPI: 52 year old RH male w/ PMH significant for aortic dissection s/p surgical repair 10/07/17 with subsequent R MCA stroke s/p decompressive crani, presents as preadmit for cranioplasty tomorrow, c/f cough / fever, here for infectious workup ? Patient had spontaneous seemingly unprovoked aortic dissection, underwent surgical repair 10/07/17, was sedated / open chest when sedation holiday for neuro exam revealed R MCA distribution stroke on 10/10/17, underwent decompressive crani with Dr. Sharif on 10/12. Also with vocal cord paralysis since extubation, never followed up for this. ? Seen in clinic for preop for scheduled craniopasty. Had cough, subjective fever 2d ago, temp in clinic 99.3F. PAST MEDICAL HISTORY Diagnosis Date - Acute kidney injury (HCC) 10/09/2017 - Aortic dissection (HCC) - History of kidney stones - Hypertension - Stroke (cerebrum) (HCC) 10/11/2017 - Unspecified asthma(493.90) Present Diet Order: NPO Enteral Access: None Nutritional Intake Prior to Admission: >75% estimated needs since diet advanced (January 03), per /sister -Pt seen at bedside with and sister in law. Rapidness of weight loss confirmed since admission to SNF, [place] post initial aortic dissection and R MCA stroke. Prior to presentation in September 2017, pt had excellent appetite and was very active. Upon D/C from [facility] in October, pt continued on NGT feedings x 3 weeks. Eventual PEG placed on 11/12. Continue to receive PEG feedings of Jevity 1.5 @ 55 ml/hr at [place] facility. Transitioned to oral diet and PEG removed on 12/19. admits that pt's PO intake (especially on altered consistency diets) was very poor. States upon advancement to regular consistency diet on 01/03, intake improved exponentially. In addition drinking Ensure supplementation frequently. Failed bedside swallow overnight. Seen by SERGER for MBSS and cleared for Dysphagia level 3 diet, thin liquids at this time. Will monitor tolerance. Per 01/17 SERGER documentation: RECOMMENDATIONS: ? 1. Aspiration was not identified today, though this was a very controlled assessment. He was not challenged with large sips or continuous drinking due to the delay in onset of the swallow and pre-swallow spillage of material into the pharynx. Vocal cord injection/medialization would be beneficial as soon as possible for Mr. Gustafson to allow for better airway valving during the swallow, better subglottic pressure for throat clearing and coughing as well as improved vocal intensity (aphonic today). ? 2. Suggest a Dysphagia Level 3 Diet with thin liquids. If foods are too heavy/bulky even when cut, downgrade further to Dysphagia Level 2. ? 3. If any coughing when taking thin liquids, suggest thickening to NECTAR ? 4. Sit as upright as comfortably possible for all PO ? 5. Supervision / assistance with all PO and encourage the following: - Cut foods into small pieces - One sip at a time from the cup or spoon (avoid straws for now) and feed at a slow rate - Chin tucked after taking liquid or food into the mouth - Swallow two times before taking the next bite/sip GI symptoms: swallowing problems and unintended weight loss Abdominal Exam: abdomen is soft Is the patient having any pain that is interfering with oral/enteral intake? No ANTHROPOMETRICS Admission Weight: 64.9 kg (143 lb) Current Weight: 64.9 kg (143 lb) Body mass index is 19.39 kg/m?. Weight has decreased by 24.4 kg over 6 months representing 27.2% weight change-SEVERE weight loss Last Wt 01/17/18 : 64.9 kg (143 lb)-confirmed per family at bedside 12/30/17 : 64.9 kg (143 lb) 11/01/17 : 74.6 kg (164 lb 7.4 oz) 09/07/17 : 84.6 kg (186 lb 6.4 oz) 08/24/17 : 83.5 kg (184 lb) 08/01/17 : 87.1 kg (192 lb) 07/20/17 : 89.3 kg (196 lb 12.8 oz) 05/06/17 : 86.7 kg (191 lb 3.2 oz) 04/19/17 : 87.5 kg (193 lb) 10/19/16 : 90.7 kg (200 lb) 10/08/16 : 96.5 kg (212 lb 11.2 oz) 09/25/16 : 94.9 kg (209 lb 4.8 oz) 06/15/16 : 94.3 kg (208 lb) 05/10/16 : 93.2 kg (205 lb 6.4 oz) 11/04/15 : 95.3 kg (210 lb) 10/17/15 : 93.4 kg (206 lb) 05/26/15 : 93.4 kg (206 lb) 04/27/15 : 90.7 kg (200 lb) 10/26/14 : 87.5 kg (193 lb) Dosing Weight: 64.9 kg Resting Metabolic Rate: 1535 Estimated kilocalorie needs: 1720-4103 kilocalories determined by 30-40 kcal/kg Estimated protein needs: 97-130 grams determined by 1.5-2.0 g/kg Dosing weight Estimated fluid needs: 5933-2106 milliliters based on 1 mL per kcal NUTRITION FOCUSED PHYSICAL EXAM: Subcutaneous Fat Loss Orbital Moderate Triceps Moderate Mid-axillary at the iliac crest Moderate Muscle Loss Locations: Temporalis Unable to determine at this time Pectoralis Severe Deltoids Severe Interosseous Mild-Moderate Latissimus dorsi, trapezius Moderate Quadriceps Moderate Gastrocnemius Moderate Potential micronutrient deficiency revealed in: No deficiency identified Edema: No Ascites: No Assessment of Functional Status: Functional capacity is unrelated to nutrition status Temperature Max in 24 hours: Temp (24hrs), Av.7 ?C (98 ?F), Min:36.5 ?C (97.7 ?F), Max:36.9 ?C (98.5 ?F) BP 119/72 Pulse 70 Temp 36.6 ?C (97.9 ?F) (Oral) Resp 18 Wt 64.9 kg (143 lb) SpO2 94% BMI 19.39 kg/m? Recent Labs 01/16/18 1630 GLUC 89 BUN 18 CREAT 0.68* NA 144 K 3.7 CHLOR 103 CO2 25 ALB 3.3* CRP 19.4* HB 12.7* HCT 37.9* WBC 10.01 Potential Signs of Inflammation: hypoalbuminemia and high CRP Intake/Output 01/15/18 0700 - 01/16/18 0659 01/16/18 0700 - 01/17/18 0659 01/17/18 0700 - 01/18/18 0659 Intake (ml) 0 1137.5 75 Output (ml) 0 80 -- Net (ml) 0 1057.5 75 Pertinent Medications: Norvasc, Colace, Lasix, 0.9% NS @ 75 ml/hr with 20 mEq KCl, Senna-S MNT Billing Type: Initial Assess/15 min 5 units SIGNATURE: Power [address] RD PATIENT NAME: Jose Gustafson DATE: January 17, 2018 TIME: 4:16 PM PAGER: [phone] PROGRESS Observed: 01/17/2018 Status: COMPLETED Source: [place] 4:05 PM [facility] [place] REPOSITORY HNO ID: [id number] Author: Tg Campos Rt Service: (none) Author Type: (none) Type: Progress Notes Filed: 01/17/2018 4:05 PM Note Text: Radiology Service Progress Note PATIENT NAME: Jose Gustafson DATE OF SERVICE: January 17, 2018 TIME: 4:05 PM PATIENT IDENTITY VERIFICATION COMPLETED USING TWO (2) METHODS: Patient confirmed name verbally and ID band matches.. PATIENT GENDER DATA: Male PATIENT RELEVANT IMPLANT DATA REVIEWED: Not Applicable RADIOLOGY DEPARTMENT: General X-ray: Exam(s) Completed: GI/ Procedure(s): Modified barium swallow with barium contrast PERIPHERAL IV DATA: Not applicable SIGNED BY: Tg Campos Rt January 17, 2018 4:05 PM NURSING PROG Observed: 01/17/2018 Status: COMPLETED Source: [place] 4:00 PM [facility] REPOSITORY HNO ID: [id number] Author: Xiomy RobertsRn) HERMINIO Paulino Service: (none) Author Type: Registered Nurse Type: Nursing Progress Note Filed: 01/17/2018 6:37 PM Note Text: Nursing Progress Note Patient Name: Jose Gustafson Patient Location: [place] [address] Daily Note: Approached by patient's sister this morning, she expressed concerns for her brother's safety when he is discharged. She feels he was receiving poor care at his previous facility. She also expressed that she was concerned that the patient's did not acknowledge her concerns; stating that his rarely visited him and did not observe the issues. Her worry is that the patient will be discharged to an unsafe level of care ( has previously told patient he could return home). Her concerns were relayed to VANESSA Swanson. This note was completed by: Xiomy Paulino RN THERAPY NT Observed: 01/17/2018 Status: COMPLETED Source: [place] 3:35 PM [facility] REPOSITORY HNO ID: [id number] Author: Emmie (Hospital Security Officer) JESSI Yusuf/JUAN Service: Speech/Swallow Author Type: Speech Language Pathologist Type: Therapy (PT/OT/Speech/Resp) Filed: 01/17/2018 4:45 PM Note Text: [facility] Speech Pathology Consult Modified Barium Swallow 01/17/2018 Jose Gustafson is a 52 year old man who is referred by ENT service for a Modified Barium Swallow (MBS) study to dynamically assess the oropharyngeal phase of swallowing, determine aspiration risk and to provide recommendations for safe swallowing on a least restrictive oral diet. Per ENT consult note on 01/16, flexible laryngoscopy showed immobile left vocal cord and mobile right vocal cord with concern for aspiration. Chest xray 01/17/18 indicated: Development of a right basilar airspace opacity most commonly secondary to nonspecific atelectasis or pneumonia/aspiration. Observed Jose to cough periodically prior to any PO trials today, but no coughing during the assessment. IMPRESSIONS: Moderate oral and pharyngeal phase dysphagia characterized by slow oral manipulation oral transit time, spillage of material in the pharynx with a delayed onset of the swallow response. Mild pharyngeal residue but no contrast entered the larynx (no aspiration) during this controlled assessment. PROGNOSIS: Though aspiration was not identified, potential risk of aspiration must be considered at least mildly elevated given today's results. Suspect if he does aspirate, ability to expel material out of the lower airway would be difficult due to his impaired vocal cord closure. RECOMMENDATIONS: 1. Aspiration was not identified today, though this was a very controlled assessment. He was not challenged with large sips or continuous drinking due to the delay in onset of the swallow and pre-swallow spillage of material into the pharynx. Vocal cord injection/medialization would be beneficial as soon as possible for Mr. Gustafson to allow for better airway valving during the swallow, better subglottic pressure for throat clearing and coughing as well as improved vocal intensity (aphonic today). 2. Suggest a Dysphagia Level 3 Diet with thin liquids. If foods are too heavy/bulky even when cut, downgrade further to Dysphagia Level 2. 3. If any coughing when taking thin liquids, suggest thickening to NECTAR 4. Sit as upright as comfortably possible for all PO 5. Supervision / assistance with all PO and encourage the following: - Cut foods into small pieces - One sip at a time from the cup or spoon (avoid straws for now) and feed at a slow rate - Chin tucked after taking liquid or food into the mouth - Swallow two times before taking the next bite/sip 6. Give medications crushed (if able) in applesauce / pudding 7. Modified Barium Swallow images can be reviewed under the Get Images tab in [employer]. PLAN: Will follow while in house. Please page if questions. Emmie Yusuf M.A., CCC/SERGER Speech Language Pathologist Pager # [phone] BRIEF DIAGNOSIS/HISTORY: Jose is status post right decompressive hemicraniectomy for R MCA stroke and malignant cerebral edema performed on 10/12/2017. PAST MEDICAL HISTORY Diagnosis Date - Acute kidney injury (HCC) 10/09/2017 - Aortic dissection (HCC) - History of kidney stones - Hypertension - Stroke (cerebrum) ([facility]) 10/11/2017 - Unspecified asthma(493.90) PAST SURGICAL HISTORY Procedure Laterality Date - COLONOSCOP W/ OR W/O BRSH SPEC 08/23/2014 Colonoscopy - LITHOTRIPSY EXTRACORP SHOCK WAVE(ESWL) 18 months ago - PAST SURGICAL HISTORY OF 2012 left ankle ORIF- hardware - PAST SURGICAL HISTORY OF 2012 ORIF left wrist - hardware - REMOVAL OF HEEL SPUR 2002, 2004 Bilateral - REPAIR ING HERNIA,5+Y/O,REDUCIBL Hernia repair, inguinal, as DATE OF ADMISSION: 01/16/2018 HEARING STATUS: Appeared adequate BEHAVIORIAL OBSERVATIONS: Alert, anxious at times, cooperative. He had several questions and comments but was very difficult to understand due the his whispered speech. PRESENT FEEDING METHOD: NPO Diet Level: NPO Dentition: Adequate Tracheostomy: No O2: Room Air ORAL MECHANISM EVALUATION Facial Symmetry at Rest: Left Droop MANAGEMENT OF SECRETIONS: No drooling; dry mouth LABIAL Pursing: Adequate for cup use Retraction: Reduced to the left VELAR Elevation / AH: Within Functional Limits Gag Reflex: Did not test LARYNGEAL Wet Vocal Quality: No Volitional Cough: Breathy Volitional Throat Clear: Breathy LINGUAL Protrusion: Within Functional Limits Retraction: Did not test Lateralization: Evenly licked lips to both the left and right Elevate / Depress: Did not test SPEECH PRODUCTION Articulation: Seemed quite good Intelligibility: Impaired Vocal Quality: Impaired - Aphonic Vocal Intensity: Impaired Rate / Prosody: Appeared good ORAL TRIALS POSITION OF PATIENT: Hausted chair VIEW: Lateral CONSISTENCIES GIVEN: Crumbled Vaughn cracker in pudding Thin Barium liquid Largo Thick Liquid Pudding-thick barium LIQUIDS GIVEN VIA: Spoon and Cup ORAL PHASE: Good oral holding with no spillage anteriorly from the lips or posteriorly until bolus was transferred. Slow manipulation and oral transit with mild oral residue. Very slow mastication of the crumbled cracker in the pudding. Oral cavity cleared when prompted to swallow a second time. He used a chin tuck head position as he had learned previously. PHARYNGEAL PHASE: Onset of the pharyngeal swallow response was delayed, at times to 15 seconds as material was passed into the pharynx with the tongue but swallow was not triggered. Tongue base retraction/bolus propulsion, soft palate elevation, laryngeal elevation and epiglottic closure of the laryngeal entrance were mildly reduced/sluggish resulting in mild retention of contrast material within the valleculae and pyriform sinuses after the initial swallow. No laryngeal penetration or subglottic aspiration was identified. EDUCATION/TREATMENT: Mr. Gustafson and his sister was instructed and educated throughout the session about the use of compensatory maneuvers and/or strategies to improve his swallow efficiency and safety. Video monitor images were used for feedback along with verbal instruction. Results and recommendations were further discussed following the study. They appeared to understand the information presented and the reason for the recommendations provided. Emmie Yusuf M.A., [facility]/SERGER Speech-Language Pathologist Pager # [phone] XR MOD BARIUM Observed: 01/17/2018 Status: F Source: [place] SWALLOW W SPEECH 3:09 PM [facility] REPOSITORY * * *Final Report* * * DATE OF EXAM: Jan 17 2018 3:09PM HGX [id number] - XR MOD BARIUM SWALLOW W SPEECH / PROCEDURE REASON: Aspiration, known or suspected * * * * Physician Interpretation * * * * MODIFIED ESOPHAGRAM WITH VIDEO BY SPEECH PATHOLOGY Fluoroscopy was provided for an oropharyngeal phase swallowing examination performed by Speech Pathology. The exam is recorded on DVD for review. Please refer to the Speech Pathologist's report, available in EPIC. Contrast: ORAL: 50 ml of VARIBAR THIN ORAL: 50 ml of VARIBAR NECTAR Fluoroscopy time 5:24 (min:sec). Fluoroscopic imaging was performed using an air kerma of 23.[address] Hinkle was present for the critical portions of the exam. RESULT: See speech pathology notes. IMPRESSION: See speech pathology notes. Silver Wrapper: PSCB Transcribe Date/Time: Jan 17 2018 3:59P Dictated by : KAYKAY HINKLE MD This examination was interpreted and the report reviewed and electronically signed by: KAYKAY HINKLE MD on Jan 17 2018 3:59PM EST [id number] CASE MANAGEM Observed: 01/17/2018 Status: COMPLETED Source: [place] 2:35 PM [facility] REPOSITORY HNO ID: [id number] Author: Kiki (Rn) HERMINIO Alicea Service: Case Management Author Type: Registered Nurse Type: Care Mgt Progress Note Filed: 01/17/2018 2:36 PM Note Text: CARE MANAGEMENT DISCHARGE NOTE SERVICE DATE: 01/17/2018 SERVICE TIME: 1435 LOS: 1 day Needs Prior to Discharge: To Be Determined;Procedure Pt. off the floor, unable to complete CM Initial Assessment at this time. SIGNATURE: Kiki Alicea RN PATIENT NAME: Jose Gustafson DATE: January 17, 2018 TIME: 2:35 PM PAGER/CONTACT #: [phone] US KIDNEY/BLADDER Observed: 01/17/2018 Status: F Source: [place] 11:12 AM [facility] REPOSITORY * * *Final Report* * * DATE OF EXAM: Jan 17 2018 11:12AM [facility] [place] [facility] [place] KIDNEY/BLADDER / PROCEDURE REASON: Fever of unknown origin * * * * Physician Interpretation * * * * EXAMINATION: RENAL ULTRASOUND CLINICAL HISTORY: UTI, concern for obstruction and pyelonephritis. TECHNIQUE: Sonography of the kidneys and urinary bladder was performed. Images were obtained and stored in a permanent archive. MQ: UR_1 COMPARISON: Right upper quadrant ultrasound 10/21/2017, CTA abdomen and pelvis 10/07/2017, RESULT: Right Kidney: -Renal length: 13.0 cm -Parenchyma: Normal parenchymal echogenicity. Normal parenchymal thickness. -Collecting system: No hydronephrosis. -Calculus: 4 mm right inferior calculus. Additional calculi seen on 10/07/17 CTA not measured on this ultrasound examination. -Lesion: None. Left Kidney: -Renal length: 14.0 cm -Parenchyma: Normal parenchymal echogenicity. Normal parenchymal thickness. -Collecting system: No hydronephrosis. -Calculus: 6 mm left upper/ interpolar calculus. Additional calculi seen on 10/07/17 CTA not measured on this ultrasound examination. -Lesion: None. Bladder: Multiple shadowing calculi in the bladder. Bladder wall thickening measuring up to 4 mm. IMPRESSION: BILATERAL RENAL CALCULI, MEASURING UP TO 6 MM IN THE LEFT UPPER/INTERPOLAR REGION. NO HYDRONEPHROSIS. BLADDER CALCULI WITH DIFFUSE, NON-SPECIFIC BLADDER WALL THICKENING. Silver Wrapper: AMY Transcribe Date/Time: Jan 17 2018 11:26A Dictated by : ANNE RODRIGUEZ MD This examination was interpreted and the report reviewed and electronically signed by: GOPAL RAZA MD on Jan 17 2018 11:43AM EST [id number] PROGRESS Observed: 01/17/2018 Status: COMPLETED Source: [place] 9:22 AM [facility] [place] REPOSITORY HNO ID: [id number] Author: Jaz Antoine) Ralph Service: Neurosurgery Author Type: Physician Vise Hand Type: Progress Notes Filed: 01/17/2018 7:21 PM Note Text: Before 8 AM, after 7 PM (1900) and weekends please page [phone]. Between 8 AM and 10 AM please call/page Miya Tran ([phone]) Cerebrovascular Team A Inpatient Progress Note Attending: Dr. Florence Sharif Location: [id number]/[id number] Hospital Day # 1 CC: Cough, fever ASSESSMENT: Patient reports that he feels better today and that his cough is improving. He is neurologically stable with no new deficits. Patient seen and examined with staff on CV rounds. PLAN: Appreciate ENT recs and assistance Appreciate GIM recs ST ro and MBS today Plan for OR Saturday for cranioplasty Continue RT for aspiration pneumonitis Mobilize, OOB for meals PT/OT postop Planned Date of Discharge: Approximately 3 - 5 days [facility]charge [facility] Active Hospital Problems Diagnosis - Acquired skull defect S/p right hemicraniectomy A/P: Neurosurg signed off: helmet for discharge (orthotics consulted), follow-up in [address] Florence Sharif, flap closure will be in 2-3 months. - Acute ischemic right MCA stroke (HCC) L sided weakness 10/11; CTH with large R MCA infarct with associated mass effect. Repeat imaging with evolution of R MCA infarct with increased edema 10/12/2017 - Right decompressive hemicraniectomy for R MCA stroke and malignant cerebral edema 10/20/17 CT Petechial hemorrhage within the evolving right MCA territory infarct, unchanged. A/P: Neurology following. Mental status improving. Awake, following on rt side commands, attempting to mouth words. Frequent neuro assessments. Avoid sedatives. Permissive HTN MAP goals 80-100. - Status post craniectomy - History of cranioplasty Added automatically from request for surgery [id number] PATIENT CHECK LIST: 1. Out of bed and ambulating: No Needs PT or OT Evaluation: Yes 2. Vascular access necessary: PIV Yes PICC Line: No Central line present? No 3. Christian/drains: No Continued need for urinary catheter? Not Applicable 4. Nutrition: PO- Yes. 5. Imaging completed: Yes Pending studies: NA 6. Consults requested: No; Service: NA 7. Infectious Disease - Active infections: N/A - Antibiotics: N/A - Recent cultures: N/A 8. Pain - Is the patient currently reporting any pain? No. What is the patient's current pain level on a 0 to 10 rating scale? Pain Score: 0/10 - What is the plan for pain management today 01/17/2018? Continue current Rx 9. Current DVT prophylaxis: Continous sequential compression devices and Encourage ambulation TID . 10. Restraints: None DEEP VEIN THROMBOSIS RISK FACTOR ASSESSMENT VTE RISK CATEGORY: AT RISK MEDICAL CONT (I), Older patients (age greater than 40) or those with restricted mobility, and/or known risk factors for VTE such as heart failure, active infection, severe respiratory disease, obesity, history of thrombophilia, prior VTE or cancer. INTERVAL HPI (Subjective): REVIEW OF SYSTEMS PAIN ASSESSMENT: Negative for pain, history of chronic pain, or current treatment for a chronic pain condition. GENERAL: No weight loss, malaise or fevers HEENT: Negative for frequent or significant headaches, No changes in hearing or vision NECK: Negative for pain and significant neck swelling RESPIRATORY: See HPI CARDIOVASCULAR: Negative for chest pain, leg swelling, hypertension, CHF or palpitations GI: No nausea, vomiting, or diarrhea MUSCULOSKELETAL: Negative for joint pain or swelling, back pain or muscle pain NEURO: SEE HPI Overnight events noted: none. Gait difficulty: Yes Bowel / Bladder dysfunction: Yes and is retention Urinating:yes Last BM:ASSISTANT COUNSEL MEDICATIONS: Current hospital medications: furosemide 20 mg tab(s) (LASIX) 20 mg PEG DAILY metoprolol tartrate (short acting) (LOPRESSOR) tab(s) 75 mg 75 mg ORAL q 8 H NaCl 0.9% with 20 mEq/L KCl iv infusion 75 mL/hr INTRAVENOUS CONTINUOUS acetaminophen 650 mg tab(s) (TYLENOL) 650 mg ORAL q 4 H PRN oxyCODONE-acetaminophen 5-325 mg 1-2 tablet (PERCOCET) 1-2 tablet ORAL q 4 H PRN labetalol 5-10 mg injection syringe (NORMODYNE) 5-10 mg INTRAVENOUS q 10 MIN PRN ondansetron (PF) 4 mg injection (ZOFRAN) 4 mg INTRAVENOUS q 6 H PRN prochlorperazine 25 mg suppository (COMPAZINE) 25 mg RECTAL q 12 H PRN docusate 100 mg CUP (COLACE) 100 mg ORAL/FEEDING TUBE BID [START ON 01/19/2018] heparin 5,000 Units injection 5,000 Units SUBCUTANEOUS q 12 H lacosamide 200 mg in NaCl 0.9% 50 mL (VIMPAT) 200 mg INTRAVENOUS q 12 H pantoprazole 40 mg injection (PROTONIX) 40 mg INTRAVENOUS DAILY (6 AM) amLODIPine 10 mg tab(s) (NORVASC) 10 mg ORAL/FEEDING TUBE DAILY busPIRone 10 mg tab(s) (BUSPAR) 10 mg ORAL/FEEDING TUBE BID senna-docusate 8.6-50 mg 1 tablet (SENNA-S) 1 tablet ORAL/FEEDING TUBE BID OBJECTIVE: LABS: CBC: Recent Labs 01/16/18 1630 01/16/18 1019 WBC 10.01 10.42 HB 12.7* 13.3 HCT 37.9* 39.3 PLT 264 279 MCV 92.2 92.5 RDWCV 12.5 12.5 NEUTP 81.9 -- ABSNEUT 8.20* -- LYMPHP 11.2 -- MONOP 5.5 -- EODINP 1.2 -- COAG: Recent Labs 01/16/18 1630 01/16/18 1019 APTT 36.7* 36.3* INR 1.0 1.0 BMP: Recent Labs 01/16/18 1630 01/16/18 1019 GLUC 89 100* NA 144 141 K 3.7 3.9 CHLOR 103 104 CO2 25 25 ANION 16 12 BUN 18 19 CREAT 0.68* 0.70* CHEM: Recent Labs 01/16/18 1630 01/16/18 1019 ALB 3.3* -- TPROT 6.3 -- CA 9.4 9.3 HEPATIC: Recent Labs 01/16/18 1630 ALKPHOS 68 ALT 18 AST 14 TBILI 0.8 URINALYSIS: Recent Labs 01/16/18 1717 SPGR 1.021 UGLUC Negative UBILI Negative UKET Negative UHB 2+* UPROT 100* UWBC >25* LEUKEST 3+* CARDIAC: No results for input(s): CKTEST, CKMB, CKMBP, TROPT, PBNP in the last 168 hours. CrCl cannot be calculated (Unknown ideal weight.). VITAL SIGNS 24 HOUR REVIEW: 01/16/18 2200 01/17/18 0200 01/17/18 0600 01/17/18 0914 BP: 120/76 110/73 141/75 128/78 Pulse: 80 68 67 74 Resp: Temp: 36.5 ?C (97.7 ?F) 36.7 ?C (98.1 ?F) 36.6 ?C (97.9 ?F) 36.5 ?C (97.7 ?F) TempSrc: Oral Oral Oral Oral SpO2: 95% 97% 91% 95% Intake/Output Summary (Last 24 hours) at 01/17/18 0922 Last data filed at 01/17/18 0700 Gross per 24 hour Intake 1212.5 ml Output 80 ml Net 1132.5 ml ALLERGIES: ALLERGIES Allergen Reactions - Cats - Grass Pollen Itching General: A AND O x 3. Appears stated age, well built, in no apparent distress. Psychiatric: Mood and affect: Appropriate. Skin: Incision: well healed CV: Normal heart sounds, rate, rhythm Respiratory: lungs CTA bilat Abdomen: Soft and Non-tender Musculoskeletal: Sensory: Normal sensory exam Gait: N/A Muscle strength: UE BICEPS TRICEPS DELTS Child Support Specialist R 5/5 5/5 5/5 5/5 L 0/5 0/5 0/5 0/5 LE Hip Flex Knee Flex Knee Extend Plantarflex Dorsiflex EHL R 5/5 5/5 5/5 5/5 5/5 5/5 L 0/5 0/5 0/5 0/5 0/5 0/5 CRANIAL NERVES: Pupils: OD Right: 3 mm Reactive OS Left: 3 mm Reactive II Visual helms: are full to confrontation III, IV, EOM full V Facial sensation normal VII Lower facial droop on left VIII Normal bilaterally IX, X Normal, midline palatal rise XI Symmetric shrug XII Tongue midline, mobile Drift: no drift RUE Speech: clear and coherent SIGNATURE: Jaz Rosas PA-C PATIENT NAME: Jose Gustafson DATE: 01/17/2018 TIME: 9:22 AM PAGER: [phone] NORTEL: After 7 PM (0) please page the resident from the appropriate team. After 1899, and weekends please page [phone]. XR CHEST 2V FRONTAL/LAT Observed: 01/16/2018 Status: F Source: [place] 9:53 PM [facility] REPOSITORY * * *Final Report* * * DATE OF EXAM: Jan 16 2018 9:53PM [facility] 5291 - XR CHEST 2V FRONTAL/LAT / PROCEDURE REASON: Cough, new onset * * * * Physician Interpretation * * * * EXAMINATION: CHEST RADIOGRAPH (2 VIEW FRONTAL and LATERAL) Clinical History: Cough, new onset MQ: XC2_5 Comparison: Portable AP CXR dated 11/01/2017 RESULT: Lines, tubes, and devices: None. Lungs and pleura: Marked relative elevation of the left hemidiaphragm with passive atelectasis of the left lung base. Sequelae of a phrenic nerve palsy on the left must be considered. There has been development of a right basilar airspace opacity most commonly secondary to nonspecific atelectasis or pneumonia/aspiration. A 15-20 mm indeterminate nodular opacity overlying the right lung base on the prior exam is not present on today's study and may be obscured by the airspace opacity. There has been development of a few additional subcentimeter indeterminate nodular opacities overlying the right lung on the PA film. Correlative opacities are not identified in the lateral film. There is no pneumothorax. Cardiomediastinal silhouette: Stable cardiomediastinal silhouette. The patient is status post median sternotomy and endovascular stent grafting of the thoracic aorta. The heart size is within normal limits. Other: The vertebral body heights appear symmetric and well-maintained. IMPRESSION: Since 11/01/2017, 1. Relative elevation of the left hemidiaphragm with passive atelectasis of the left lung base. Sequelae of a phrenic there are palsy on the left must be considered. 2. Development of a right basilar airspace opacity most commonly secondary to nonspecific atelectasis or pneumonia/aspiration. 3. An indeterminate nodular opacity overlying the right lung base on the prior exam is not evident on today's study. This nodular opacity may be obscured by the right basilar airspace process on today's exam. 4. development of additional subcentimeter indeterminate nodular opacities overlying the right lung on the PA film. I suspect these nodular opacities are within the lung parenchyma. Inflammatory/infectious versus neoplastic etiologies are the most common diagnostic considerations. I suggest further evaluation by short interval radiographic follow-up or correlation with CT. Silver Wrapper: PSCB Transcribe Date/Time: Jan 17 2018 6:29A Dictated by : EMELI AGUILERA MD This examination was interpreted and the report reviewed and electronically signed by: EMELI AGUILERA MD on Jan 17 2018 6:35AM EST [id number] PROGRESS Observed: 01/16/2018 Status: COMPLETED Source: [place] 9:48 PM [facility] REPOSITORY HNO ID: [id number] Author: Clifton (Rt) Luciano Ortega Service: (none) Author Type: Corporate Tax Preparer Type: Progress Notes Filed: 01/16/2018 9:53 PM Note Text: Radiology Service Progress Note PATIENT NAME: Jose Gustafson DATE OF SERVICE: January 16, 2018 TIME: 9:49 PM PATIENT IDENTITY VERIFICATION COMPLETED USING TWO (2) METHODS: Patient confirmed name verbally and ID band matches.. PATIENT GENDER DATA: Male PATIENT RELEVANT IMPLANT DATA REVIEWED: Not Applicable RADIOLOGY DEPARTMENT: General X-ray: Exam(s) Completed: Chest X-Ray PERIPHERAL IV DATA: Not applicable SIGNED BY: RT Harjit January 16, 2018 9:49 PM NURSING PROG Observed: 01/16/2018 Status: COMPLETED Source: [place] 8:20 PM [facility] REPOSITORY HNO ID: [id number] Author: Joyce (Rn) HERMINIO Gonzalez Service: (none) Author Type: Registered Nurse Type: Nursing Progress Note Filed: 01/16/2018 8:42 PM Note Text: Pt failed bedside swallow screen. TERESA Massey notified for meds to be switched to IV. PO meds held CONSULT Observed: 01/16/2018 Status: COMPLETED Source: [place] 8:11 PM [facility] REPOSITORY HNO ID: [id number] Author: Luis Enrique Mari Service: Otolaryngology Author Type: Physician Type: Consults Filed: 01/20/2018 9:42 AM Note Text: OTOLARYNGOLOGY CONSULT NOTE Patient: Jose Gustafson : 1965 Date of Service: January 16, 2018 ASSESSMENT AND PLAN: 52 year old male with known vocal cord paralysis following repair of an aortic dissection in September 2017 and R MCA infarct resulting in left sided weakness. ENT consulted to evaluate vocal cord paralysis and patient new cough for the past weak. History and physical exam are limited given the patient's mental status and inability to follow complex commands. After talking to the , the patient cough is most likely related to a recent URI that has been common at the [facility] were the patient resides. The reports that the cough is improving. Flexible laryngoscopy today showed immobile left vocal cord and mobile right vocal cord. As a result, that the patient is aspirating is a possibility and we recommend modified barium swallow which speech therapy for further assessment. Should the patient's cough not improve, an evaluation by a medical team is reasonable. - Modified barium swallow study with speech therapy to assess swallowing. - If patient is aspirating and has no other means of nutrition, we can consider inpatient surgical management of vocal cord paralysis - If patient is not aspirating, diet per speech therapy and out patient management of vocal cord paralysis - Agree with ongoing medical evaluation for cough Signature: Lary Cedillo MD Otolaryngology, PGY1 Pager: [phone] For questions after hours or on weekends please page [phone]. -These findings and recommendations were discussed with Senior Resident Jewel Seen and discussed with Dr. Mari - - - - - - - - - - - - - - - - - - - - - - - - - - - - - - - - - - - - - - - - - - - - - - - HPI: This is a 52 year old male patient with known vocal cord paralysis after he underwent surgical repair of an aortic dissection in September 2017 and whose recovery was complicated by R MCA infarct necessitating hemicraniectomy and ultimately resulted in left sided weakness. The patient currently lives in an [facility] and was admitted to [facility] today to expiated pre-operative evaluation after he was found to have new productive cough ahead of his upcoming cranioplasty on 01/20/2018. ENT consulted to evaluate his vocal cord paralysis and comment on his cough if able. The patient is unfortunately a poor historian and requested that I call his on the phone. I spoke to her briefly as she was driving, and she stated that the patient has had a cough for several days. The cough is intermittently productive os sputum. Multiple patients at the [facility] where the patient resides have had a similar cough. She believes that his cough is improving. He has not had fever or chills. She is uncertain if there is a correlation with eating and his cough. PAST MEDICAL HISTORY: PAST MEDICAL HISTORY Diagnosis Date - Acute kidney injury (HCC) 10/09/2017 - Aortic dissection ([facility]) - History of kidney stones - Hypertension - Stroke (cerebrum) ([facility]) 10/11/2017 - Unspecified asthma(493.90) PAST SURGICAL HISTORY: PAST SURGICAL HISTORY Procedure Laterality Date - COLONOSCOP W/ OR W/O RUST SPEC 08/23/2014 Colonoscopy - LITHOTRIPSY EXTRACORP SHOCK WAVE(ESWL) 18 months ago - PAST SURGICAL HISTORY OF 2013 left ankle ORIF- hardware - PAST SURGICAL HISTORY OF 2013 ORIF left wrist - hardware - REMOVAL OF HEEL SPUR 2002, 2004 Bilateral - REPAIR ING HERNIA,5+Y/O,REDUCIBL Hernia repair, inguinal, as infant FAMILY HISTORY: FAMILY HISTORY Problem Relation Age of Onset - Stroke Father age 48 of CVA - Asthma Paternal Grandfather SOCIAL HISTORY: Social History Marital status: Spouse name: Years of education: Number of children: Social History Main Topics Smoking status: Former Smoker Packs/day: 0.00 Years: 0.00 Types: Cigars Quit date: 10/10/2017 Smokeless tobacco: Never Used Alcohol use: Yes 6.0 oz/week Cans of Beer (12oz): 4 per week Drug use: No Sexual activity: Yes Partners with: Female COMPLETE REVIEW OF SYSTEMS: Unable to obtain given patient's mental status MEDICATIONS: No current facility-administered medications on file prior to encounter. Current Outpatient Prescriptions on File Prior to Encounter: busPIRone (BUSPAR) 10 mg tablet Take 10 mg by mouth twice daily. albuterol sulfate (ACCUNEB INHALATION) Inhale 2.5 mg as instructed every 6 hours as needed. ALPRAZolam (XANAX) 0.5 mg tablet 0.5 mg by PEG route three times daily as needed. BACLOFEN ORAL 10 mg by PEG Tube route three times daily. famotidine (PEPCID) 20 mg tablet 20 mg by PEG route once daily. furosemide (LASIX) 20 mg tablet 20 mg by PEG route once daily. lacosamide (VIMPAT) 200 mg tab 200 mg by PEG route twice daily. metoprolol tartrate, short acting, (LOPRESSOR) 50 mg tablet 50 mg by PEG route twice daily. oxyCODONE IR (ROXICODONE) 5 mg immediate release tablet Take 5 mg by mouth every 6 hours as needed. QUEtiapine (SEROQUEL) 50 mg tablet 50 mg by PEG route daily at bedtime. acetaminophen (TYLENOL) 650 mg/20.3 mL soln 15.62-31.23 mL by NASOGASTRIC route every 6 hours as needed. (Patient taking differently: 500-1,000 mg by PEG route every 6 hours as needed. ) nystatin (MYCOSTATIN) 100,000 units/mL susp Take 5 mL by mouth four times daily. ipratropium-albuterol (DUONEB) 0.5 mg-3 mg(2.5 mg base)/3 mL nebu Inhale 3 mL as instructed every 4 hours as needed. (Patient taking differently: Inhale 3 mL as instructed four times daily. ) metoprolol tartrate, short acting, (LOPRESSOR) 25 mg tablet Take 3 tablets by mouth every 8 hours. amLODIPine (NORVASC) 10 mg tablet Take 1 tablet by mouth once daily. (Patient taking differently: 5 mg by PEG route once daily. ) Chlorhexidine Gluconate (PERIDEX) 0.12 % solution Take 15 mL by mouth every 6 hours. budesonide (PULMICORT) 1 mg/2 mL nebulizer solution Use 2 mL via nebulizer twice daily. (Patient taking differently: Use 1 mg via nebulizer once daily. ) heparin 5,000 unit/mL injection Inject 1 mL subcutaneously every 12 hours. (Patient not taking: Reported on 01/16/2018 ) dextrose 50% in water solution Inject 25 mL intravenously as needed. senna-docusate (SENNA-S) 8.6-50 mg per tablet Take 1 tablet by mouth twice daily. bisacodyl (DULCOLAX) 10 mg supp 1 Suppository by RECTAL route once daily as needed. furosemide (LASIX) 20 mg/2 mL soln Inject 2 mL intravenously once daily. therapeutic multivitamin (THERA VITAMIN) tablet Take 1 tablet by mouth once daily. (Patient taking differently: 1 tablet by PEG route once daily. ) aspirin 81 mg chewable tablet Take 1 tablet by mouth once daily. (Patient not taking: Reported on 01/16/2018 ) potassium chloride (KLOR-CON) 20 mEq packet 40-120 mEq by ORAL/FEEDING TUBE route as needed (low potassium). (Patient taking differently: 40 mEq by ORAL/FEEDING TUBE route once daily. ) zinc oxide-cod liver oil (DESITIN 40%) 40 % paste Apply 1 application to affected area twice daily. pantoprazole (PROTONIX) 40 mg/20 mL 10 mL by ORAL/FEEDING TUBE route DAILY (6 AM). lacosamide (VIMPAT) 100 mg/10 mL Take 20 mL by mouth every 12 hours. (Patient not taking: Reported on 01/16/2018 ) Current Facility-Administered Medications: amLODIPine 10 mg tab(s) (NORVASC) 10 mg ORAL DAILY Efstathios (Res) Kondylis busPIRone 10 mg tab(s) (BUSPAR) 10 mg ORAL BID Efstathios (Res) Kondylis furosemide 20 mg tab(s) (LASIX) 20 mg PEG DAILY Efstathios (Res) Kondylis lacosamide 200 mg oral liquid (VIMPAT) 200 mg ORAL q 12 H Efstathios (Res) Kondylis metoprolol tartrate (short acting) (LOPRESSOR) tab(s) 75 mg 75 mg ORAL q 8 H Efstathios (Res) Kondylis senna-docusate 8.6-50 mg 1 tablet (SENNA-S) 1 tablet ORAL BID Efstathios (Res) Kondylis NaCl 0.9% with 20 mEq/L KCl iv infusion 75 mL/hr INTRAVENOUS CONTINUOUS Efstathios (Res) Kondylis Last Rate: 75 mL/hr at 01/16/18 1635 75 mL/hr at 01/16/18 1635 acetaminophen 650 mg tab(s) (TYLENOL) 650 mg ORAL q 4 H PRN Efstathios (Res) Kondylis oxyCODONE-acetaminophen 5-325 mg 1-2 tablet (PERCOCET) 1-2 tablet ORAL q 4 H PRN Efstathios (Res) Kondylis labetalol 5-10 mg injection syringe (NORMODYNE) 5-10 mg INTRAVENOUS q 10 MIN PRN Efstathios (Res) Kondylis ondansetron (PF) 4 mg injection (ZOFRAN) 4 mg INTRAVENOUS q 6 H PRN Efstathios (Res) Kondylis prochlorperazine 25 mg suppository (COMPAZINE) 25 mg RECTAL q 12 H PRN Efstathios (Res) Kondylis [START ON 01/17/2018] pantoprazole DR 40 mg tab(s) (PROTONIX) 40 mg ORAL DAILY (6 AM) Efstathios (Res) Kondylis docusate 100 mg CUP (COLACE) 100 mg ORAL/FEEDING TUBE BID Efstathios (Res) Kondylis [START ON 01/19/2018] heparin 5,000 Units injection 5,000 Units SUBCUTANEOUS q 12 H Efstathios (Res) Kondylis ALLERGIES: ALLERGIES Allergen Reactions - Cats - Grass Pollen Itching PHYSICAL EXAM: 01/16/18 1420 01/16/18 1850 BP: 117/70 114/67 Pulse: 77 75 Resp: 17 18 Temp: 37.1 ?C (98.7 ?F) 36.9 ?C (98.5 ?F) TempSrc: Oral Axillary SpO2: 95% 95% PHYSICAL EXAM: Vitals - BP 114/67 Pulse 75 Temp 36.9 ?C (98.5 ?F) (Axillary) Resp 18 SpO2 95% Constitutional - General Appearance: well developed, well nourished, without obvious deformities Communication: speaks with a breathy voice without hoarseness Head AND Face - Overall: Post-surgical changes from right sided hemicraniectomy noted Parotid and submandibular glands: No masses or lesions Facial strength: unable to assess as the patient was unable to follow commands consistently, grossly intact Ear, Nose, Mouth AND Throat - Nasal exam: mucosa is pink, septum is midline, visible turbinates are normal on anterior rhinoscopy Mastication: teeth appear to have some cavities Oral Cavity and oropharynx: mucosa, hard and soft palates, tongue, tonsil area, posterior pharyngeal wall, lips and gums are without lesions Neck: appears symmetric, and on palpation is without masses or lymphadenopathy DATA: Radiology: None Laboratory: CBC, Coags, BMP, Mg, Phos Recent Labs 01/16/18 1630 01/16/18 1019 WBC 10.01 10.42 HB 12.7* 13.3 HCT 37.9* 39.3 PLT 264 279 INR 1.0 1.0 APTT 36.7* 36.3* NA 144 141 K 3.7 3.9 CHLOR 103 104 CO2 25 25 BUN 18 19 CREAT 0.68* 0.70* GLUC 89 100* CA 9.4 9.3 Procedure: PROCEDURE NOTE: Recommended flexible laryngoscopy. Risks, benefits and alternatives were explained. PROCEDURE: Flexible Laryngoscopy PREOPERATIVE DIAGNOSIS: Vocal cord paralysis POSTOPERATIVE DIAGNOSIS: Same INDICATIONS: Patient unable to cooperate - Preventing Mirror Exam ANESTHESIA: None because of concern for aspiration once larynx is numb. Decongested the nose with Afrin PROCEDURE: Topical vasoconstriction was applied with spray to the left side(s) of the nose. After waiting an appropriate period of time for vasoconstriction to become effective, a flexible laryngoscope was passed through the left side(s) of the nose. Nasopharynx, oropharynx, hypopharynx and larynx were examined. FINDINGS: The nasopharynx and oropharynx were normal without any lesions or masses visualized. No masses or lesions were visualized at the base of tongue, vallecula, epiglottis, aryepiglottic folds, pyriform sinuses, and lateral pharyngeal elizalde. True vocal fold movement was immobile on the left and mobile on the right. No lesions visualized. The patient's airway was widely patent with no evidence of obstruction. Pt tolerated the procedure well, and there were no complications. The procedure was performed by Dr. Cedillo. Lary Cedillo MD SIGNATURE: Lary Cedillo MD PAGER: [phone] (ENT Consult Pager) DATE of SERVICE: January 16, 2018 TIME of SERVICE: 8:11 PM January 20, 2018 I participated in the history and physical exam of Jose Gustafson. I discussed the management of Jose Gustafson with the resident. I reviewed the resident's note and agree with the documented findings and plan of care. Luis Enrique Mari MD URINALYSIS WITH Collected: 01/16/2018 Status: F Source: [place] MICROSCOPIC 5:17 PM [facility] REPOSITORY TYPE CODE TESTS RESULT OUT OF RANGE REFERENCE UNITS LAB UCOL Yellow Color Abnormal Malinda Alert LAB [facility] Clear Clarity Abnormal Cloudy Alert LAB UGLUC Negative mg/dL Glucose, Urine Negative LAB UBIL Negative Bilirubin, Urine Negative LAB UKET Negative Ketones, Urine Negative LAB USPG 1.005-1.030 Specific [place], Ur 1.021 LAB UHGB Negative Abnormal Hemoglobin/Blood, 2+ Alert Ur LAB UPH 4.5-8.0 pH 6.0 LAB UPROT Negative mg/dL Protein, Abnormal Urine 100 Alert LAB UUROB Normal Abnormal Urobilinogen Elevated Alert LAB UNITR Negative Nitrites Negative LAB ULKEST Negative Leukest Abnormal 3+ Alert LAB UCOM Comments SEE COMMENT Result Comment: N/A LAB UMCOM Urine SEE Will Comment COMMENT Result Comment: Rechecked by light microscopy. LAB UWBC 0-5 /HPF Abnormal Alert WBC >25 LAB URBC 0-3 /HPF Abnormal Alert RBC 6-10 LAB UCAST 0 /LPF Abnormal Alert Cast SEE COMMENT Result Comment: >10 Hyaline Cast LAB UCRYS 0 /HPF Abnormal Alert Crystals SEE COMMENT Result Comment: Few Calcium Oxalate Crystal Performed By: #### UAWMIC #### [facility] [address] [place] [id number] Observed: 01/16/2018 Status: F Source: [place] URINE CULTURE 5:17 PM [facility] REPOSITORY Sp. Request/Comment: - Specimen received in preservative Culture Result - >=100,000 CFU/ml Enterococcus faecalis --> ABNORMAL ALERT Cephalosporins, clindamycin, and TMP-SMX are not effective for the treatment of enterococcal infections. --> ABNORMAL ALERT ORGANISM: Enterococcus faecalis METHOD: Minimum inhibitory concentration(Vitek) Antibiotic Interp WILL Status Ampicillin SUSCEPTIBLE <=2 F Nitrofurantoin SUSCEPTIBLE <=16 F Vancomycin RESISTANT >=32 F ORGANISM: Enterococcus faecalis METHOD: Minimum inhibitory concentration (VIZION) Antibiotic Interp WILL Status Linezolid SUSCEPTIBLE <=1 F Daptomycin SUSCEPTIBLE 2 F Performed By: #### URCUL #### [facility] [address] [place], [place] [address] Observed: 01/16/2018 Status: F Source: [place] BLOOD CULTURE 4:37 PM [facility] REPOSITORY Culture Result - No growth 5 days Performed By: #### BLCUL #### [facility] [address] [place], [place] [address] CBC AND DIFFERENTIAL Collected: 01/16/2018 Status: F Source: [place] 4:30 PM [facility] REPOSITORY TYPE CODE TESTS RESULT OUT OF REFERENCE UNITS RANGE LAB WBC 3.70-11.00 k/uL WBC 10.01 LAB RBC 4.20-6.00 m/uL Low RBC 4.11 LAB HGB 13.0-17.0 g/dL Low Hemoglobin 12.7 LAB HCT 39.0-51.0 % Low Hematocrit 37.9 LAB MCV 80.0-100.0 fL MCV 92.2 LAB MCH 26.0-34.0 pG MCH 30.9 LAB MCHC 30.5-36.0 g/dL MCHC 33.5 LAB RDWCV 11.5-15.0 % RDW-CV 12.5 LAB PLTCT 150-400 k/uL Platelet Count 264 LAB MPV 9.0-12.7 fL MPV 9.5 LAB ANEUT % Neut% 81.9 LAB AANEUT 1.45-7.50 k/uL Abs Neut High 8.20 LAB ALYMP % Lymph% 11.2 LAB AALYMP 1.00-4.00 k/uL Abs Lymph 1.12 LAB AMONO % [place]% 5.5 LAB AAMONO <0.87 k/uL Abs [place] 0.55 LAB AEOS % Eosin% 1.2 LAB AAEOS <0.46 k/uL Abs Eosin 0.12 LAB ABASO % Baso% 0.2 LAB AABASO <0.11 k/uL Abs Baso <0.03 LAB AUNRBC 0 /100 WBC NRBCs 0.0 LAB ABNRBC <0.01 k/uL Absolute nRBC <0.01 LAB DTYP DTYPE Auto Diff Performed By: #### CBCDIF, PT, PTT, BMP, CRP, HFP, WSR #### [facility] [address] [place], [place] [address] PROTIME Collected: 01/16/2018 Status: F Source: [place] 4:30 PM [facility] REPOSITORY TYPE CODE TESTS RESULT OUT OF RANGE REFERENCE UNITS LAB PSEC 9.7-13.0 sec PT Sec 10.7 LAB INR 0.9-1.3 PT INR 1.0 Result Comment: Vitamin K Antagonist (VKA) Therapeutic Range: INR 2 to 3 (Target INR of 2.5) Note: For patients treated with VKA drugs, such as warfarin, the [place] [employer] 2012 Guideline recommends a therapeutic INR range of 2 to 3 (target INR of 2.5). This recommendation includes high-risk patients with antiphospholipid syndrome with previous arterial or venous thromboembolism, current-generation mechanical or bioprosthetic aortic heart valve replacement. Note: Patients with mechanical aortic valve replacement and additional risk factors for thromboembolic events (atrial fibrillation, previous thromboembolism, LV dysfunction, hypercoagulable conditions) or an older generation mechanical AVR (i.e., ball in-Cage) or any mechanical MVR should have a INR therapeutic range of 2.5 to 3.5 (target INR of 3). Phi GH, et al. Chest 2012, 141:7S-47S Regis RA, et al. [facility] 2017, 70: 252-289 Performed By: #### CBCDIF, PT, PTT, BMP, CRP, HFP, WSR #### [facility] [address] [place], [place] [address] APTT Collected: 01/16/2018 Status: F Source: [place] 4:30 PM [facility] REPOSITORY TYPE CODE TESTS RESULT OUT OF RANGE REFERENCE UNITS LAB APTT 23.0-32.4 sec High APTT 36.7 Result Comment: Unfractionated Heparin Therapeutic Ranges: Standard Heparin Nomogram: 53 to 78 seconds (anti-Xa level of 0.3 to 0.7 U/ml) Low Dose/ACS Nomogram: 49 to 67 seconds (anti-Xa level of 0.2 to 0.5 U/ml) Stroke Treatment Nomogram: 49 to 67 seconds (anti-Xa level of 0.2 to 0.5 U/ml) Note: The APTT therapeutic range has been determined for the current lot of laboratory APTT reagent in use throughout the [facility]. Performed By: #### CBCDIF, PT, PTT, BMP, CRP, HFP, WSR #### [facility] [address], [place] [address] BASIC METABOLIC PANL Collected: 01/16/2018 Status: F Source: [place] 4:30 PM [facility] REPOSITORY TYPE CODE TESTS RESULT OUT OF REFERENCE UNITS RANGE LAB GLU 74-99 mg/dL Glucose 89 Result Comment: The [place] Diabetes Association (ADA) provides guidance for cutoff values for fasting glucose and random glucose. The ADA defines fasting as no caloric intake for at least 8 hours. Fas ting plasma glucose results between 100 to 125 mg/dL indicate increased risk for diabetes (prediabetes). Fasting plasma glucose results greater than or equal to 126 mg/dL meet the criteria for diagnosis of diabetes. In the absence of unequivocal hyperglycemia, results should be confirmed by repeat testing. In a patient with classic symptoms of hyperglycemia or hyperglycemic crisis, random plasma glucose results greater than or equal to 200 mg/dL meet the criteria for diagnosis of diabetes. Reference: Standards of Medical Care in Diabetes 2016, [place] [employer] Association. Diabetes Care. 2016.39(Suppl 1). LAB BUN 9-24 mg/dL BUN 18 LAB CRET 0.73-1.22 mg/dL Creatinine Low 0.68 LAB NA 136-144 mmol/L Sodium 144 LAB K 3.7-5.1 mmol/L Potassium 3.7 LAB CL 97-105 mmol/L Chloride 103 LAB CO2 22-30 mmol/L CO2 25 LAB AGAP 9-18 mmol/L Anion Gap 16 LAB CA 8.5-10.2 mg/dL Calcium, Total 9.4 LAB GFRAA eGFR- Amer. >60 LAB GFRNAA . eGFR-All Other Races >60 Result Comment: eGFR (Estimated GFR) Units of measure: mL/min/1.73 meters squared eGFR is derived from the reexpressed MDRD Study equation using the following parameters: serum creatinine, age, gender and race. The creatinine assay has been calibrated to be traceable to IDMS. An eGFR <60 mL/min/1.73m2 for >3 months is consistent with chronic kidney disease. Refer to KDOQI guidelines for clinical interpretation. In patients with unstable renal function, e.g. those with acute kidney injury, the eGFR may not accurately reflect actual GFR. Performed By: #### CBCDIF, PT, PTT, BMP, CRP, HFP, WSR #### [facility] [address] [place], [place] [address] C-REACTIVE PROTEIN Collected: 01/16/2018 Status: F Source: [place] 4:30 PM [facility] REPOSITORY TYPE CODE TESTS RESULT OUT OF REFERENCE UNITS RANGE LAB CRP <0.9 mg/dL High C-Reactive 19.4 Protein Performed By: #### CBCDIF, PT, PTT, BMP, CRP, HFP, WSR #### [facility] [address] [place], [place] [address] HEPATIC FUNCTN PANEL Collected: 01/16/2018 Status: F Source: [place] 4:30 PM [facility] REPOSITORY TYPE CODE TESTS RESULT OUT OF REFERENCE UNITS RANGE LAB ALB 3.9-4.9 g/dL Low Albumin 3.3 LAB TBIL 0.2-1.3 mg/dL Bilirubin, Total 0.8 LAB CBIL <0.2 mg/dL Bilirubin,Conjuga <0.2 sylvia LAB ALKP 36-108 U/L Alkaline Phosphatase 68 LAB AST 14-40 U/L AST 14 LAB ALT 10-54 U/L ALT 18 LAB TP 6.3-8.0 g/dL Protein, Total 6.3 Performed By: #### CBCDIF, PT, PTT, BMP, CRP, HFP, WSR #### [facility] [place], [place] [address] SED RATE WESTERGREN Collected: 01/16/2018 Status: F Source: [place] 4:30 PM [facility] REPOSITORY TYPE CODE TESTS RESULT OUT OF REFERENCE UNITS RANGE LAB WSR 0-15 mm/hr Sed Rate High [place] 60 Performed By: #### CBCDIF, PT, PTT, BMP, CRP, HFP, WSR #### [facility] [address], [place] [address] Observed: 01/16/2018 Status: F Source: [place] BLOOD CULTURE 4:28 PM [facility] REPOSITORY Culture Result - No growth 5 days Performed By: #### BLCUL #### [facility] [address] [place], [place] [address] HISTORY PHYSICAL Observed: 01/16/2018 Status: COMPLETED Source: [place] 3:58 PM [facility] REPOSITORY HNO ID: [id number] Author: Abelardo Herbert Service: Neurosurgery Author Type: Resident Type: HANDP Filed: 01/16/2018 6:36 PM Note Text: HISTORY AND PHYSICAL EXAM Patient Name: Jose Gustafson HPI: 52 year old RH male w/ PMH significant for aortic dissection s/p surgical repair 10/07/17 with subsequent R MCA stroke s/p decompressive crani, presents as preadmit for cranioplasty tomorrow, c/f cough / fever, here for infectious workup Patient had spontaneous seemingly unprovoked aortic dissection, underwent surgical repair 10/07/17, was sedated / open chest when sedation holiday for neuro exam revealed R MCA distribution stroke on 10/10/17, underwent decompressive crani with Dr. Sharif on 10/12. Also with vocal cord paralysis since extubation, never followed up for this. Seen in clinic for preop for scheduled craniopasty. Had cough, subjective fever 2d ago, temp in clinic 99.3F. SQH last 1d ago ASA81 last 7d ago PAST MEDICAL HISTORY: PAST MEDICAL HISTORY Diagnosis Date - Acute kidney injury (HCC) 10/09/2017 - Aortic dissection (HCC) - History of kidney stones - Hypertension - Stroke (cerebrum) ([facility]) 10/11/2017 - Unspecified asthma(493.90) PAST SURGICAL HISTORY: PAST SURGICAL HISTORY Procedure Laterality Date - COLONOSCOP W/ OR W/O RUST SPEC 08/23/2014 Colonoscopy - LITHOTRIPSY EXTRACORP SHOCK WAVE(ESWL) 18 months ago - PAST SURGICAL HISTORY OF 2012 left ankle ORIF- hardware - PAST SURGICAL HISTORY OF 2012 ORIF left wrist - hardware - REMOVAL OF HEEL SPUR 2002, 2004 Bilateral - REPAIR ING HERNIA,5+Y/O,REDUCIBL Hernia repair, inguinal, as FAMILY HISTORY: FAMILY HISTORY Problem Relation Age of Onset - Stroke Father age 48 of CVA - Asthma Paternal Grandfather SOCIAL HISTORY: Social History Marital status: Spouse name: Years of education: Number of children: Social History Main Topics Smoking status: Former Smoker Packs/day: 0.00 Years: 0.00 Types: Cigars Quit date: 10/10/2017 Smokeless tobacco: Never Used Alcohol use: Yes 6.0 oz/week Cans of Beer (12oz): 4 per week Drug use: No Sexual activity: Yes Partners with: Female MEDICATIONS: busPIRone (BUSPAR) 10 mg tablet Take 10 mg by mouth twice daily. albuterol sulfate (ACCUNEB INHALATION) Inhale 2.5 mg as instructed every 6 hours as needed. ALPRAZolam (XANAX) 0.5 mg tablet 0.5 mg by PEG route three times daily as needed. BACLOFEN ORAL 10 mg by PEG Tube route three times daily. famotidine (PEPCID) 20 mg tablet 20 mg by PEG route once daily. furosemide (LASIX) 20 mg tablet 20 mg by PEG route once daily. lacosamide (VIMPAT) 200 mg tab 200 mg by PEG route twice daily. metoprolol tartrate, short acting, (LOPRESSOR) 50 mg tablet 50 mg by PEG route twice daily. oxyCODONE IR (ROXICODONE) 5 mg immediate release tablet Take 5 mg by mouth every 6 hours as needed. QUEtiapine (SEROQUEL) 50 mg tablet 50 mg by PEG route daily at bedtime. acetaminophen (TYLENOL) 650 mg/20.3 mL soln 15.62-31.23 mL by NASOGASTRIC route every 6 hours as needed. nystatin (MYCOSTATIN) 100,000 units/mL susp Take 5 mL by mouth four times daily. ipratropium-albuterol (DUONEB) 0.5 mg-3 mg(2.5 mg base)/3 mL nebu Inhale 3 mL as instructed every 4 hours as needed. metoprolol tartrate, short acting, (LOPRESSOR) 25 mg tablet Take 3 tablets by mouth every 8 hours. amLODIPine (NORVASC) 10 mg tablet Take 1 tablet by mouth once daily. Chlorhexidine Gluconate (PERIDEX) 0.12 % solution Take 15 mL by mouth every 6 hours. budesonide (PULMICORT) 1 mg/2 mL nebulizer solution Use 2 mL via nebulizer twice daily. heparin 5,000 unit/mL injection Inject 1 mL subcutaneously every 12 hours. dextrose 50% in water solution Inject 25 mL intravenously as needed. senna-docusate (SENNA-S) 8.6-50 mg per tablet Take 1 tablet by mouth twice daily. bisacodyl (DULCOLAX) 10 mg supp 1 Suppository by RECTAL route once daily as needed. furosemide (LASIX) 20 mg/2 mL soln Inject 2 mL intravenously once daily. therapeutic multivitamin (THERA VITAMIN) tablet Take 1 tablet by mouth once daily. aspirin 81 mg chewable tablet Take 1 tablet by mouth once daily. potassium chloride (KLOR-CON) 20 mEq packet 40-120 mEq by ORAL/FEEDING TUBE route as needed (low potassium). zinc oxide-cod liver oil (DESITIN 40%) 40 % paste Apply 1 application to affected area twice daily. pantoprazole (PROTONIX) 40 mg/20 mL 10 mL by ORAL/FEEDING TUBE route DAILY (6 AM). lacosamide (VIMPAT) 100 mg/10 mL Take 20 mL by mouth every 12 hours. Current hospital medications: amLODIPine 10 mg tab(s) (NORVASC) 10 mg ORAL DAILY busPIRone 10 mg tab(s) (BUSPAR) 10 mg ORAL BID furosemide 20 mg tab(s) (LASIX) 20 mg PEG DAILY lacosamide 200 mg oral liquid (VIMPAT) 200 mg ORAL q 12 H metoprolol tartrate (short acting) (LOPRESSOR) tab(s) 75 mg 75 mg ORAL q 8 H senna-docusate 8.6-50 mg 1 tablet (SENNA-S) 1 tablet ORAL BID NaCl 0.9% with 20 mEq/L KCl iv infusion 75 mL/hr INTRAVENOUS CONTINUOUS acetaminophen 650 mg tab(s) (TYLENOL) 650 mg ORAL q 4 H PRN oxyCODONE-acetaminophen 5-325 mg 1-2 tablet (PERCOCET) 1-2 tablet ORAL q 4 H PRN labetalol 5-10 mg injection syringe (NORMODYNE) 5-10 mg INTRAVENOUS q 10 MIN PRN ondansetron (PF) 4 mg injection (ZOFRAN) 4 mg INTRAVENOUS q 6 H PRN prochlorperazine 25 mg suppository (COMPAZINE) 25 mg RECTAL q 12 H PRN [START ON 01/17/2018] pantoprazole DR 40 mg tab(s) (PROTONIX) 40 mg ORAL DAILY (6 AM) docusate 100 mg CUP (COLACE) 100 mg ORAL/FEEDING TUBE BID [START ON 01/19/2018] heparin 5,000 Units injection 5,000 Units SUBCUTANEOUS q 12 H ALLERGIES: ALLERGIES Allergen Reactions - Cats - Grass Pollen Itching COMPLETE REVIEW OF SYSTEMS: See HPI PHYSICAL EXAM: AO3, NAD PERRL, EOMI, L droop, TML Motor: RUE 5/5 LUE 0/5 RLE 5/5 LLE 0/5 SILT Wound intact CV: RRR, no r/m/g Chest: CTAB Abdomen: Soft, NT/ND DATA: Radiology: As per HPI Laboratory: CBC, Coags, BMP, Mg, Phos Recent Labs 01/16/18 1019 WBC 10.42 HB 13.3 HCT 39.3 PLT 279 INR 1.0 APTT 36.3* NA 141 K 3.9 CHLOR 104 CO2 25 BUN 19 CREAT 0.70* GLUC 100* CA 9.3 ASSESSMENT AND PLAN: 52 year old RH male w/ PMH significant for aortic dissection s/p surgical repair 10/07/17 with subsequent R MCA stroke s/p decompressive crani, presents as preadmit for cranioplasty tomorrow, c/f cough / fever, here for infectious workup - Admit under Dr. Sharif - Admit labs: CBC, BMP, PT, PTT, TANDS, U/A - Admit EKG, CXR -Medicine and anesthesia c/s for preop -ENT c/s airway assessment given vocal cord paralysis following previous intubation -Infectious workup - labs, DVT scan, UA -OR tomorrow cancelled, re-schedule for Saturday Above plan discussed with chief Alberto and (staff) Dr. Sharif. SIGNATURE: Abelardo Herbert MD PGY-1, Neurological Surgery Pager: [phone] Please page [phone] on weekends and after 6pm CONSULT Observed: 01/16/2018 Status: COMPLETED Source: [place] 3:55 PM [facility] REPOSITORY HNO ID: [id number] Author: Nataly Craven Service: General Internal Medicine Author Type: Resident Type: Consults Filed: 01/16/2018 5:02 PM Note Text: Attestation signed by Daryl Jones at 01/17/2018 1:05 PM (Updated) [facility] STAFF PHYSICIAN NOTE OF PERSONAL INVOLVEMENT IN CARE I have reviewed the consult note obtained and documented by the resident and I personally participated in the curry components. I have discussed the case and management of the patient's care. The following comments revise or confirm relevant curry components of their note. Patient seen and examined on 01/16 52 year old male with PMH of HTN and mild asthma. Sustained large R MCA territory stroke in September 2017 post- op after aortic dissection repair. Developed worsening cerebral edema causing uncal and subfalcine herniation requiring decompressive hemicraniectomy. Cause of stroke? Intraoperative hypotension? Thrombotic vs embolic? (atheroembolus?, pre and post op OR echo showed mobile density at the aortic root unable to rule out hematoma, no PFO) US carotid with 0-19% stenoses b/l Now scheduled for cranioplasty to repair skull defect Afebrile, cough + Hoarseness on exam, Mild confusion, cannot state month and date Dense hemiplegia on left. Lungs clear No edema Plan: CXR reviewed this morning, air space opacities at right lung base, also present on CXR in October 2017 but appear more prominent on yesterday's exam. Afebrile overnight, no leukocytosis. OK to observe off antibiotics at this time. More importantly, patient is 3 months from his stroke. Still carries a high risk of recurrent stroke, post op MD, cardiovascular and all cause mortality. Risk is highest within 3 months and tends to decrease after that levelling off at 6-[address] Sharif on 01/16, confirmed elective nature of surgery. Recommend waiting at least 6 months from the date of stroke for the proposed surgrery. Please call with questions. Daryl Jones MD Staff Physician, Hospital Review TrainerAgency Operatorautomatic spreader operator January 17, 2018 12:57 PM Pager: [phone] INTERNAL MEDICINE CONSULT HISTORY AND PHYSICAL EXAMINATION PREOPERATIVE ASSESSMENT SERVICE DATE: 01/16/2018 SERVICE TIME: 3:55 PM PRIMARY CARE PHYSICIAN: No Pcp CHIEF COMPLAINT/HISTORY OF PRESENT ILLNESS: Mr. Gustafson is a 52 year old male referred to me for preoperative evaluation. My final recommendations will be communicated back to the requesting physician/surgeon by the way of the shared medical record. Referring Surgeon: Dr. Sharif Date of Surgery: 01/17 Planned Surgery/Procedure: cranioplasty Indication for Planned Surgery / Procedure: s/p decompressive hemicraniectomy 52yo M with h/o: -HTN -Asthma on albuterol -Stroke 09/2017 -tracheostomy 10/17 s/p reversal 3 weeks ago -subclinical seizures on Vimpat He was admitted 10/07 for aortic dissection s/p repair on 10/07 c/b bleeding, hypotension, chest closure failure. On 10/10 during attempted chest closure pt developed L sided weakness, found to have R MCA infarct, underwent decompressive hemicraniectomy 10/12/2017 and tracheostomy 10/17/2017 due to respiratory failure, reversed 3 weeks ago. He has residual left sided weakness. Hoarseness - likely due to vocal cord paralysis. Seeing Dr Sharif in clinic, concern for infection given history of cough and fever, admitted for expedited work up and evaluation prior to planned surgery on 01/17. Last took ASA 7 days ago. TTE 10/07/2017 EF 55% Patient is Able to Perform the Following Physical Activity: unable to determine as pt is unable to ambulate since stroke 09/2017. Was fully functional and able to walk flight of stairs before stroke. Significant Anesthesia Considerations: None. PAST MEDICAL/SURGICAL/FAMILY/SOCIAL HISTORY PAST MEDICAL HISTORY Diagnosis Date - Acute kidney injury (HCC) 10/09/2017 - Aortic dissection (HCC) - History of kidney stones - Hypertension - Stroke (cerebrum) (HCC) 10/11/2017 - Unspecified asthma(493.90) PAST SURGICAL HISTORY Procedure Laterality Date - COLONOSCOP W/ OR W/O RUST SPEC 08/23/2014 Colonoscopy - LITHOTRIPSY EXTRACORP SHOCK WAVE(ESWL) 18 months ago - PAST SURGICAL HISTORY OF 2012 left ankle ORIF- hardware - PAST SURGICAL HISTORY OF 2012 ORIF left wrist - hardware - REMOVAL OF HEEL SPUR 2002, 2004 Bilateral - REPAIR ING HERNIA,5+Y/O,REDUCIBL Hernia repair, inguinal, as FAMILY HISTORY Problem Relation Age of Onset - Stroke Father age 48 of CVA - Asthma Paternal Grandfather SOCIAL HISTORYSocial History Marital status: Spouse name: Years of education: Number of children: Social History Main Topics Smoking status: Former Smoker Packs/day: 0.00 Years: 0.00 Types: Cigars Quit date: 10/10/2017 Smokeless tobacco: Never Used Alcohol use: Yes 6.0 oz/week Cans of Beer (12oz): 4 per week Drug use: No Sexual activity: Yes Partners with: Female MEDICATIONS/ALLERGIES Current Facility-Administered Medications: amLODIPine 10 mg tab(s) (NORVASC) 10 mg ORAL DAILY Efstathios (Res) Kondylis busPIRone 10 mg tab(s) (BUSPAR) 10 mg ORAL BID Efstathios (Res) Kondylis furosemide 20 mg tab(s) (LASIX) 20 mg PEG DAILY Efstathios (Res) Kondylis lacosamide 200 mg oral liquid (VIMPAT) 200 mg ORAL q 12 H Efstathios (Res) Damiandylis metoprolol tartrate (short acting) (LOPRESSOR) tab(s) 75 mg 75 mg ORAL q 8 H Efstathios (Res) Damiandylis senna-docusate 8.6-50 mg 1 tablet (SENNA-S) 1 tablet ORAL BID Efstathios (Res) Kondylis NaCl 0.9% with 20 mEq/L KCl iv infusion 75 mL/hr INTRAVENOUS CONTINUOUS Efstathios (Res) Kondylis acetaminophen 650 mg tab(s) (TYLENOL) 650 mg ORAL q 4 H PRN Efstathios (Res) Damiandylis oxyCODONE-acetaminophen 5-325 mg 1-2 tablet (PERCOCET) 1-2 tablet ORAL q 4 H PRN Efstathios (Res) Damiandylis labetalol 5-10 mg injection syringe (NORMODYNE) 5-10 mg INTRAVENOUS q 10 MIN PRN Efstathios (Res) Kondylis ondansetron (PF) 4 mg injection (ZOFRAN) 4 mg INTRAVENOUS q 6 H PRN Efstathios (Res) Damiandylis prochlorperazine 25 mg suppository (COMPAZINE) 25 mg RECTAL q 12 H PRN Efstathios (Res) Damiandylis [START ON 01/17/2018] pantoprazole DR 40 mg tab(s) (PROTONIX) 40 mg ORAL DAILY (6 AM) Efstathios (Res) Kondylis docusate 100 mg CUP (COLACE) 100 mg ORAL/FEEDING TUBE BID Efstathios (Res) Kondylis [START ON 01/19/2018] heparin 5,000 Units injection 5,000 Units SUBCUTANEOUS q 12 H Efstathios (Res) Kondylis ALLERGIES Allergen Reactions - Cats - Grass Pollen Itching REVIEW OF SYSTEMS General: Fever Neuro: per hpi Respiratory: Current cough nonproductive Cardiovascular: Hypertension GI: No history of GI symptoms or problems. No history of esophageal varices, recent ascites, or ETOH greater than 2 drinks per day. : No history of UTI in past 6 weeks. No history of renal failure. Not currently on or requiring dialysis. No history of symptoms or problems. Endocrine: No history of diabetes. Has not taken steroids within the past 30 days. No history of endocrinological symptoms or problems. Hematology: No history of bleeding or clotting disorder. No history of hematological symptoms or problems. Oncology: No history of CA metastasis, chemo within 30 days, or radiotherapy within 90 days. No history of oncological symptoms or problems. Psych: No history of psychiatric symptoms or problems. Skin: Negative for lesions, rash, and itching. PHYSICAL EXAM VITALS: BP 117/70 Pulse 77 Temp (Src) 98.7 (Oral) Resp 17 SpO2 95% General: Alert and oriented, No acute distress Skin: Normal color, no rash, no lesions. HEENT: EOM, pupils equal, round and reactive. Cardiovascular: Normal S1 AND S2, no rubs, murmurs or gallops. No JVD. Pulse regular. Lungs: Normal breath sounds, no wheezes or crackles. Abdomen: Soft, non-tender, no rigidity. Extremities: No deformity, no edema or tenderness, no joint swelling or clubbing. Neurological: Limb weakness, left UE Limb weakness, left LE Pulses: Pedal pulses normal +2. ASSESSMENT Mr. Gustasfon is a 52 year old male referred to me for preoperative evaluation. Patient has the following medical comorbidities which might affect the perioperative course: - Chronic Asthma which is mild and intermittent. - Hypertension, well controlled. - History of right-sided Stroke. Patient's RCRI (Revised Cardiac Risk Index: CAD/CHF/Stroke or TIA/SCr>2/DM on Insulin/High Risk Surgery) score is 1 and is at low risk for major adverse cardiac events in the perioperative period. RCRI 1 for history of stroke Diagnostic tests reviewed for today's visit: Most recent labs Most recent imaging Most recent Echo PLAN/RECOMMENDATIONS CARDIAC: Patient is at optimal cardiac condition for scheduled surgery / procedure. Hold amlodipine and lasix morning of surgery. Ok to continue metoprolol tartrate on morning of surgery. PULMONARY: Patient is at optimal Pulmonary status for scheduled surgery / procedure. Suggest the following in the post-operative period: Continue bronchodilator medications, Aggressive bronchopulmonary hygiene and Early ambulation Objectively, risk for postoperative pulmonary complications is low given ARISCAT score of 3. RENAL: - Suggest following in the postoperative period due to prevent acute kidney injury: Avoid nephrotoxic medications Dose medications on estimated serum creatinine clearance Monitor fluid balance closely and avoid hypotension. Avoid dehydration / volume depletion Monitor serum creatinine Patient is NOT optimally prepared for surgery. PENDING CXR AND STAFF TO STAFF DISCUSSION Given recent stroke (3 months ago), he is at elevated risk of MACE and recurrent storke. His risk of MACE decreases at 9 months after stroke. Hold amlodipine morning of surgery Hold furosemide morning of surgery Continue antiepileptic medications morning of surgery Continue metoprolol morning of surgery Hold buspirone morning of surgery SIGNATURE: Nataly Craven MD PATIENT NAME: Jose Gustafson DATE: January 16, 2018 TIME: 3:55 PM PROGRESS Observed: 01/16/2018 Status: COMPLETED Source: [place] 12:37 PM [facility] REPOSITORY HNO ID: [id number] Author: Florence Sharif Service: (none) Author Type: Physician Type: Progress Notes Filed: 01/16/2018 12:41 PM Note Text: Seen for IC for bone flap replacement. IC obtained from . Appears slightly ill to me. Positive cough, had fever yesterday. Will admit for medical clearance and ENT consult for hoarseness. Florence Sharif MD CT BRAIN WO IVCON Observed: 01/16/2018 Status: F Source: [place] 11:06 AM [facility] REPOSITORY * * *Final Report* * * DATE OF EXAM: Jan 16 2018 11:06AM [facility] [place] CT BRAIN WO IVCON / PROCEDURE REASON: Cerebral infarction due to unspecified occlusion or stenosis of right middle cer * * * * Physician Interpretation * * * * EXAMINATION: CT BRAIN WO IVCON CLINICAL HISTORY: Cerebral infarction due to unspecified occlusion or stenosis of right middle cerebral artery . 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 TECHNIQUE: Serial axial images without IV contrast were obtained from the vertex to the foramen magnum. MQ: [id number] CT Dose-Length Product (DLP): 697 mGy*cm CT Dose Reduction Employed: No dose reduction techniques were required COMPARISON: 10/20/2017. RESULT: Post-operative change: Postoperative changes status post right decompressive hemicraniectomy. There is interval retraction of the underlying brain parenchyma with sunken skin contour. Confluent encephalomalacia seen involving the right middle cerebral artery territory. No evidence of residual edema. Acute change: No evidence of an acute infarct or other acute parenchymal process. Hemorrhage: No evidence of acute intracranial hemorrhage. Interval resolution of previously noted overlying subdural hematoma. Mass Lesion / Mass Effect: There is no evidence of an intracranial mass or extraaxial fluid collection. No significant mass effect. There is continued effacement of the right hemispheric sulci, as well as minimal [id number] midline shift likely due to the retraction. Chronic change: Scattered patchy foci of low attenuation are present within supratentorial white matter which is a nonspecific finding but likely represents mild microvascular ischemia. Parenchyma: Postoperative changes as described. Ventricles: There is attenuation of the frontal horn right lateral ventricle with milder involvement of the body and trigone. Paranasal sinuses and skull base: The visualized paranasal sinuses are grossly clear. Trace bilateral mastoid opacification The skull base and imaged soft tissues are unremarkable. IMPRESSION: Postoperative changes status post right decompressive hemicraniectomy Silver Wrapper: PSCB Transcribe Date/Time: Jan 16 2018 11:17A Dictated by : OSMAN SO MD This examination was interpreted and the report reviewed and electronically signed by: MONSERRAT GATICA MD on Jan 16 2018 11:46AM EST [id number] CNOV Observed: 01/16/2018 Status: COMPLETED Source: [place] 11:00 AM [facility] REPOSITORY Office Visit (NSEVMN) JOSE GUSTAFSON ([id number]) 1965 M [facility] Date Time Provider Department 01/16/18 11:00 AM FLORENCE SHARIFJourdan During your visit today, we recorded the following information about you: Temperature Pulse Blood pressure 99.1 degrees 73/minute 108/69 Florence Sharif MD 01/16/2018 12:41 PM Signed Seen for IC for bone flap replacement. IC obtained from . Appears slightly ill to me. Positive cough, had fever yesterday. Will admit for medical clearance and ENT consult for hoarseness. 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 LACOSAMIDE 200 MG TABLET 200 mg by PEG route twice miesha* OXYCODONE 5 MG TABLET Take 5 mg by mouth every 6 ho* QUETIAPINE 50 MG TABLET 50 mg by PEG route daily at b* ACETAMINOPHEN 650 MG/20.3 ML * 15.62-31.23 mL by NASOGASTRIC* Patient taking differently: 500-1,000 mg by PEG route sunita* NYSTATIN 100,000 UNITS/ML ORA* Take 5 mL by mouth four times* METOPROLOL TARTRATE 25 MG TAB* Take 3 tablets by mouth every* AMLODIPINE 10 MG TABLET Take 1 tablet by mouth once d* Patient taking differently: 5 mg by PEG route once daily.* CHLORHEXIDINE GLUCONATE 0.12 * Take 15 mL by mouth every 6 h* DEXTROSE 50 % IN WATER (D50W)* Inject 25 mL intravenously as* SENNOSIDES 8.6 MG-DOCUSATE SO* Take 1 tablet by mouth twice * THERAPEUTIC MULTIVITAMIN TABL* Take 1 tablet by mouth once d* Patient taking differently: 1 tablet by PEG route once da* POTASSIUM CHLORIDE 20 MEQ ORA* 40-120 mEq by ORAL/FEEDING TU* Patient taking differently: 40 mEq by ORAL/FEEDING TUBE r* ZINC OXIDE-COD LIVER OIL 40 %* Apply 1 application to affect* FAMOTIDINE 20 MG TABLET 20 mg by PEG route once daily. METOPROLOL TARTRATE 50 MG TAB* 50 mg by PEG route twice ap[place]* IPRATROPIUM-ALBUTEROL 0.5 MG-* Inhale 3 mL as instructed sunita* Patient taking differently: Inhale 3 mL as instructed fou* BUDESONIDE 1 MG/2 ML SUSPENSI* Use 2 mL via nebulizer twice * Patient taking differently: Use 1 mg via nebulizer once d* HEPARIN (PORCINE) 5,000 UNIT/* Inject 1 mL subcutaneously ev* Patient not taking: Reported on 01/16/2018 BISACODYL 10 MG RECTAL SUPPOS* 1 Suppository by RECTAL route* FUROSEMIDE 20 MG/2 ML INJ Inject 2 mL intravenously onc* ASPIRIN 81 MG CHEWABLE TABLET Take 1 tablet by mouth once d* Patient not taking: Reported on 01/16/2018 PANTOPRAZOLE ORAL LIQUID 40 M* 10 mL by ORAL/FEEDING TUBE ro* LACOSAMIDE ORAL SOLUTION 100 * Take 20 mL by mouth every 12 * Patient not taking: Reported on 01/16/2018 Medication notes this encounter ASPIRIN 81 MG CHEWABLE TABLET >> Aleksandra Menchaca RN, RN 01/16/2018 11:57 AM >> ALEKSANDRA MENCHACA Kailey Jan 16, 2018 11:57 AM stopped on 01/15/18 for surgery More... Problem List As Of Date 01/16/2018 Noted Resolved Essential hypertension [I10] INVALID FOR* Priority: C More... 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 Aortic dissection (HCC) [I71.00] INVALID FOR*10/13/2017 Priority: A More... Pain, postoperative, acute [G89.18] INVALID FOR*10/21/2017 Priority: D More... More... Coagulopathy (HCC) [D68.9] INVALID FOR*10/13/2017 Priority: H More... Acute blood loss anemia [D62] INVALID FOR*10/26/2017 Priority: F More... More... Lactic acid acidosis [E87.2] INVALID FOR*10/13/2017 Priority: F More... More... More... Cardiac insufficiency (HCC) [I50.9] INVALID FOR*10/21/2017 Priority: Mild More... Acute ischemic right MCA stroke (HCC) [I63.511] INVALID FOR* Priority: D More... Cerebral edema (HCC) [G93.6] INVALID FOR*10/21/2017 Priority: D More... Severe protein-calorie malnutrition (HCC) [E43] INVALID FOR* Priority: G More... Chronic respiratory failure (HCC) [J96.10] INVALID FOR* Priority: B More... Elevated LFTs [R79.89] INVALID FOR*11/01/2017 Priority: G More... Leukocytosis [D72.829] INVALID FOR* Priority: I More... 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 More... Seizure (HCC) [R56.9] INVALID FOR* Priority: E More... Hypernatremia [E87.0] INVALID FOR*11/01/2017 Priority: F More... Encounter Status:Closed by FLORENCE SHARIF MD on 01/16/18 PROGRESS Observed: 01/16/2018 Status: COMPLETED Source: [place] 10:59 AM [facility] REPOSITORY HNO ID: [id number] Author: Jenny Hernandez (Ct) YUNI Washburn Service: Radiology Author Type: Clinical Corporate Tax Preparer Type: Progress Notes Filed: 01/16/2018 11:05 AM Note Text: Radiology Service Progress Note PATIENT NAME: Jose Gustafson DATE OF SERVICE: January 16, 2018 TIME: 11:00 AM PATIENT IDENTITY VERIFICATION COMPLETED USING TWO (2) METHODS: Patient confirmed name verbally and ID band matches.. PATIENT GENDER DATA: Male PATIENT RELEVANT IMPLANT DATA REVIEWED: Yes RADIOLOGY DEPARTMENT: CT; Exam(s) Completed: Brain PERIPHERAL IV DATA: Not applicable SIGNED BY: YUNI Blakely January 16, 2018 11:00 AM CONFIRM BLOOD TYPE Collected: 01/16/2018 Status: F Source: [place] 10:21 AM [facility] REPOSITORY TYPE CODE TESTS RESULT OUT OF REFERENCE UNITS RANGE LAB %ABR A ABO/RH(D) POSITIVE Performed By: #### CONABO #### [facility] [address] [place], [place] [address] CBC Collected: 01/16/2018 Status: F Source: [place] 10:19 AM [facility] REPOSITORY TYPE CODE TESTS RESULT OUT OF REFERENCE UNITS RANGE LAB WBC 3.70-11.00 k/uL WBC 10.42 LAB RBC 4.20-6.00 m/uL RBC 4.25 LAB HGB 13.0-17.0 g/dL Hemoglobin 13.3 LAB HCT 39.0-51.0 % Hematocrit 39.3 LAB MCV 80.0-100.0 fL MCV 92.5 LAB MCH 26.0-34.0 pG MCH 31.3 LAB MCHC 30.5-36.0 g/dL MCHC 33.8 LAB RDWCV 11.5-15.0 % RDW-CV 12.5 LAB PLTCT 150-400 k/uL Platelet Count 279 LAB MPV 9.0-12.7 fL MPV 9.2 LAB ABSNUC <0.01 k/uL Absolute nRBC <0.01 Performed By: #### CBC, PT, PTT, BMP #### [facility] [address] [place], [place] [address] PROTIME Collected: 01/16/2018 Status: F Source: [place] 10:19 AM [facility] REPOSITORY TYPE CODE TESTS RESULT OUT OF RANGE REFERENCE UNITS LAB PSEC 9.7-13.0 sec PT Sec 10.8 LAB INR 0.9-1.3 PT INR 1.0 Result Comment: Vitamin K Antagonist (VKA) Therapeutic Range: INR 2 to 3 (Target INR of 2.5) Note: For patients treated with VKA drugs, such as warfarin, the [place] [employer] 2012 Guideline recommends a therapeutic INR range of 2 to 3 (target INR of 2.5). This recommendation includes high-risk patients with antiphospholipid syndrome with previous arterial or venous thromboembolism, current-generation mechanical or bioprosthetic aortic heart valve replacement. Note: Patients with mechanical aortic valve replacement and additional risk factors for thromboembolic events (atrial fibrillation, previous thromboembolism, LV dysfunction, hypercoagulable conditions) or an older generation mechanical AVR (i.e., ball in-Cage) or any mechanical MVR should have a INR therapeutic range of 2.5 to 3.5 (target INR of 3). Phi CEBALLOS, et al. Chest 2012, 141:7S-47S Regis RA, et al. [facility] 2017, 70: 252-289 Performed By: #### CBC, PT, PTT, BMP #### [facility] [address] [place], [place] [address] APTT Collected: 01/16/2018 Status: F Source: [place] 10:19 AM [facility] REPOSITORY TYPE CODE TESTS RESULT OUT OF RANGE REFERENCE UNITS LAB APTT 23.0-32.4 sec High APTT 36.3 Result Comment: Unfractionated Heparin Therapeutic Ranges: Standard Heparin Nomogram: 53 to 78 seconds (anti-Xa level of 0.3 to 0.7 U/ml) Low Dose/ACS Nomogram: 49 to 67 seconds (anti-Xa level of 0.2 to 0.5 U/ml) Stroke Treatment Nomogram: 49 to 67 seconds (anti-Xa level of 0.2 to 0.5 U/ml) Note: The APTT therapeutic range has been determined for the current lot of laboratory APTT reagent in use throughout the [facility]. Performed By: #### CBC, PT, PTT, BMP #### [facility] [address] [place], [place] [address] BASIC METABOLIC PANL Collected: 01/16/2018 Status: F Source: [place] 10:19 AM [facility] REPOSITORY TYPE CODE TESTS RESULT OUT OF REFERENCE UNITS RANGE LAB GLU 74-99 mg/dL High Glucose 100 Result Comment: The [place] [employer] (ADA) provides guidance for cutoff values for fasting glucose and random glucose. The ADA defines fasting as no caloric intake for at least 8 hours. Fas ting plasma glucose results between 100 to 125 mg/dL indicate increased risk for diabetes (prediabetes). Fasting plasma glucose results greater than or equal to 126 mg/dL meet the criteria for diagnosis of diabetes. In the absence of unequivocal hyperglycemia, results should be confirmed by repeat testing. In a patient with classic symptoms of hyperglycemia or hyperglycemic crisis, random plasma glucose results greater than or equal to 200 mg/dL meet the criteria for diagnosis of diabetes. Reference: Standards of Medical Care in Diabetes 2016, [place] [employer] Association. Diabetes Care. 2016.39(Suppl 1). LAB BUN 9-24 mg/dL BUN 19 LAB CRET 0.73-1.22 mg/dL Creatinine Low 0.70 LAB NA 136-144 mmol/L Sodium 141 LAB K 3.7-5.1 mmol/L Potassium 3.9 LAB CL 97-105 mmol/L Chloride 104 LAB CO2 22-30 mmol/L CO2 25 LAB AGAP 9-18 mmol/L Anion Gap 12 LAB CA 8.5-10.2 mg/dL Calcium, Total 9.3 LAB GFRAA eGFR- Amer. >60 LAB GFRNAA . eGFR-All Other Races >60 Result Comment: eGFR (Estimated GFR) Units of measure: mL/min/1.73 meters squared eGFR is derived from the reexpressed MDRD Study equation using the following parameters: serum creatinine, age, gender and race. The creatinine assay has been calibrated to be traceable to IDMS. An eGFR <60 mL/min/1.73m2 for >3 months is consistent with chronic kidney disease. Refer to KDOQI guidelines for clinical interpretation. In patients with unstable renal function, e.g. those with acute kidney injury, the eGFR may not accurately reflect actual GFR. Performed By: #### CBC, PT, PTT, BMP #### [facility] [address] [place], [place] [address] TYPE AND SCREEN Collected: 01/16/2018 Status: F Source: [place] 10:14 AM [facility] REPOSITORY TYPE CODE TESTS RESULT OUT OF REFERENCE UNITS RANGE LAB %ABR A ABO/RH(D) POSITIVE LAB % Antibody NEG Screen Performed By: #### TSCR #### [facility] [address] [place], [place] [address] PROGRESS Observed: 01/15/2018 Status: COMPLETED Source: [place] 3:08 PM [facility] REPOSITORY HNO ID: [id number] Author: Ricky rGoves (Rn) Service: (none) Author Type: Registered Nurse Type: Progress Notes Filed: 01/15/2018 3:10 PM Note Text: PRIMARY CARE COORDINATION QUICK NOTE Provider Action/FYI Spk with Zaid WEAVER who noted plan Cranioplasty scheduled 01-17-18. When patient is discharge from [facility] he will go to directly to [facility]. Patient identified by name and date . Germain García RN January 15, 2018 3:08 PM PROGRESS Observed: 01/15/2018 Status: COMPLETED Source: [place] 2:05 PM [facility] REPOSITORY HNO ID: [id number] Author: Zaid Hale Service: (none) Author Type: Systems Test Engineer Type: Progress Notes Filed: 01/15/2018 2:11 PM Note Text: Spoke with Karli Maldonado. Jose is doing well. He has a Pre op exam for surgery on 01-16-18. Cranioplasty is schedule for 01-17-18. When patient is discharge from [facility] he will go to directly to [facility]. Zaid Hale MA CNPTOUTREACH Observed: 01/15/2018 Status: COMPLETED Source: [place] 12:00 AM [facility] REPOSITORY Patient Outreach (FAMPWS) JOSE GUSTAFSON ([id number]) 1965 M T Date Time Provider Department 01/15/18 RICKY FIORE) FAMPWS During your visit today, we recorded the following information about you: Germain García RN 01/15/2018 3:10 PM Signed PRIMARY CARE COORDINATION QUICK NOTE Provider Action/NAZANIN Bhardwajk with Zaid Augustinelabach [facility] who noted plan Cranioplasty scheduled 01-17-18. When patient is discharge from [facility] he will go to directly to [facility]. Patient identified by name and date . Germain García RN January 15, 2018 3:08 PM Allergies As of Date: 01/15/2018 Noted Allergy Reaction CATS 09/26/2009 GRASS POLLEN 12/08/2012 9 - Itching Date Reviewed: 01/07/2018 Reviewed by: Sher Stinson - Fully Assessed Reason for Visit: Transition Of Care [4074] Cmt: 01/17/18 Cranioplasty D/C to ESR Prescriptions as of 01/15/2018 Sig: BUSPIRONE 10 MG TABLET Take 10 mg by mouth twice miesha* ACCUNEB INHALATION Inhale 2.5 mg as instructed e* ALPRAZOLAM 0.5 MG TABLET 0.5 mg by PEG route three yue* BACLOFEN ORAL 10 mg by PEG Tube route three* FAMOTIDINE 20 MG TABLET 20 mg by PEG route once daily. FUROSEMIDE 20 MG TABLET 20 mg by PEG route once daily. LACOSAMIDE 200 MG TABLET 200 mg by PEG route twice miesha* METOPROLOL TARTRATE 50 MG TAB* 50 mg by PEG route twice aparna* OXYCODONE 5 MG TABLET Take 5 mg by mouth every 6 ho* QUETIAPINE 50 MG TABLET 50 mg by PEG route daily at b* ACETAMINOPHEN 650 MG/20.3 ML * 15.62-31.23 mL by NASOGASTRIC* Patient taking differently: 500-1,000 mg by PEG route sunita* NYSTATIN 100,000 UNITS/ML ORA* Take 5 mL by mouth four times* IPRATROPIUM-ALBUTEROL 0.5 MG-* Inhale 3 mL as instructed sunita* Patient taking differently: Inhale 3 mL as instructed fou* METOPROLOL TARTRATE 25 MG TAB* Take 3 tablets by mouth every* AMLODIPINE 10 MG TABLET Take 1 tablet by mouth once d* Patient taking differently: 5 mg by PEG route once daily.* CHLORHEXIDINE GLUCONATE 0.12 * Take 15 mL by mouth every 6 h* BUDESONIDE 1 MG/2 ML SUSPENSI* Use 2 mL via nebulizer twice * Patient taking differently: Use 1 mg via nebulizer once d* HEPARIN (PORCINE) 5,000 UNIT/* Inject 1 mL subcutaneously ev* Patient taking differently: Inject 5,000 Units subcutaneo* DEXTROSE 50 % IN WATER (D50W)* Inject 25 mL intravenously as* SENNOSIDES 8.6 MG-DOCUSATE SO* Take 1 tablet by mouth twice * BISACODYL 10 MG RECTAL SUPPOS* 1 Suppository by RECTAL route* FUROSEMIDE 20 MG/2 ML INJ Inject 2 mL intravenously onc* THERAPEUTIC MULTIVITAMIN TABL* Take 1 tablet by mouth once d* Patient taking differently: 1 tablet by PEG route once da* ASPIRIN 81 MG CHEWABLE TABLET Take 1 tablet by mouth once d* Patient taking differently: 81 mg by PEG route once daily* POTASSIUM CHLORIDE 20 MEQ ORA* 40-120 mEq by ORAL/FEEDING TU* Patient taking differently: 40 mEq by ORAL/FEEDING TUBE r* ZINC OXIDE-COD LIVER OIL 40 %* Apply 1 application to affect* PANTOPRAZOLE ORAL LIQUID 40 M* 10 mL by ORAL/FEEDING TUBE ro* LACOSAMIDE ORAL SOLUTION 100 * Take 20 mL by mouth every 12 * More... Problem List As Of Date 01/15/2018 Noted Resolved Essential hypertension [I10] INVALID FOR* Priority: C More... 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 Aortic dissection (HCC) [I71.00] INVALID FOR*10/13/2017 Priority: A More... Pain, postoperative, acute [G89.18] INVALID FOR*10/21/2017 Priority: D More... More... Coagulopathy (HCC) [D68.9] INVALID FOR*10/13/2017 Priority: H More... Acute blood loss anemia [D62] INVALID FOR*10/26/2017 Priority: F More... More... Lactic acid acidosis [E87.2] INVALID FOR*10/13/2017 Priority: F More... More... More... Cardiac insufficiency (HCC) [I50.9] INVALID FOR*10/21/2017 Priority: Mild More... Acute ischemic right MCA stroke (HCC) [I63.511] INVALID FOR* Priority: D More... Cerebral edema (HCC) [G93.6] INVALID FOR*10/21/2017 Priority: D More... Severe protein-calorie malnutrition (HCC) [E43] INVALID FOR* Priority: G More... Chronic respiratory failure (HCC) [J96.10] INVALID FOR* Priority: B More... Elevated LFTs [R79.89] INVALID FOR*11/01/2017 Priority: G More... Leukocytosis [D72.829] INVALID FOR* Priority: I More... 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 More... Seizure (HCC) [R56.9] INVALID FOR* Priority: E More... Hypernatremia [E87.0] INVALID FOR*11/01/2017 Priority: F More... Encounter Status:Closed by GERMAIN GARCÍA on 01/15/18 PROGRESS Observed: 01/12/2018 Status: COMPLETED Source: [place] 7:47 PM [facility] REPOSIT[facility] HNO ID: [id number] Author: Kaykay Beth Service: (none) Author Type: Physician Type: Progress Notes Filed: 01/13/2018 12:00 PM Note Text: Noted, thank you Kaykay Beth MD PROGRESS Observed: 01/09/2018 Status: COMPLETED Source: [place] 1:39 PM [facility] REPOSITORY HNO ID: [id number] Author: Ricky Groves (Rn) Service: (none) Author Type: Registered Nurse Type: Progress Notes Filed: 01/13/2018 12:00 PM Note Text: PRIMARY CARE COORDINATION QUICK NOTE Provider Action/FYI Update with Meghann WEAVER Pt transferred SNF 01/03/18 at [facility]. He scheduled for Cranioplasty for Skull Defect on 01-17-18 Patient identified by name and date . Germain García RN January 09, 2018 1:40 PM CNPTOUTREACH Observed: 01/09/2018 Status: COMPLETED Source: [place] 12:00 AM [facility] RE[facility]IT[facility] Patient Outreach (FAMPWS) JOSE GUSTAFSON ([id number]) 1965 M [facility] Date Time Provider Department 01/09/18 RICKY GROVES (RN) FAMPWS During your visit today, we recorded the following information about you: Germain García RN 01/13/2018 12:00 PM Signed PRIMARY CARE COORDINATION QUICK NOTE Provider Action/FYI Update with Meghann WEAVER Pt transferred SNF 01/03/18 at [facility]. He scheduled for Cranioplasty for Skull Defect on 01-17-18 Patient identified by name and date . Germain García RN January 09, 2018 1:40 PM Kaykay Beth MD 01/13/2018 12:00 PM Signed Noted, thank you MD Zaid Heart MA 01/15/2018 2:11 PM Signed Spoke with Karli Maldonado. Jose is doing well. He has a Pre op exam for surgery on 01-16-18. Cranioplasty is schedule for 01-17-18. When patient is discharge from [facility] he will go to directly to [facility]. Zaid Hale MA Allergies As of Date: 01/09/2018 Noted Allergy Reaction CATS 09/26/2009 GRASS POLLEN 12/08/2012 9 - Itching Date Reviewed: 01/07/2018 Reviewed by: Sher Stinson - Fully Assessed Reason for Visit: [facility] Follow Up [7831] Cmt: Anticipated plan Reason For Visit History Recorded Prescriptions as of 01/09/2018 Sig: BUSPIRONE 10 MG TABLET Take 10 mg by mouth twice miesha* ACCUNEB INHALATION Inhale 2.5 mg as instructed e* ALPRAZOLAM 0.5 MG TABLET 0.5 mg by PEG route three yue* BACLOFEN ORAL 10 mg by PEG Tube route three* FAMOTIDINE 20 MG TABLET 20 mg by PEG route once daily. FUROSEMIDE 20 MG TABLET 20 mg by PEG route once daily. LACOSAMIDE 200 MG TABLET 200 mg by PEG route twice miesha* METOPROLOL TARTRATE 50 MG TAB* 50 mg by PEG route twice aparna* OXYCODONE 5 MG TABLET Take 5 mg by mouth every 6 ho* QUETIAPINE 50 MG TABLET 50 mg by PEG route daily at b* ACETAMINOPHEN 650 MG/20.3 ML * 15.62-31.23 mL by NASOGASTRIC* Patient taking differently: 500-1,000 mg by PEG route sunita* NYSTATIN 100,000 UNITS/ML ORA* Take 5 mL by mouth four times* IPRATROPIUM-ALBUTEROL 0.5 MG-* Inhale 3 mL as instructed sunita* Patient taking differently: Inhale 3 mL as instructed fou* METOPROLOL TARTRATE 25 MG TAB* Take 3 tablets by mouth every* AMLODIPINE 10 MG TABLET Take 1 tablet by mouth once d* Patient taking differently: 5 mg by PEG route once daily.* CHLORHEXIDINE GLUCONATE 0.12 * Take 15 mL by mouth every 6 h* BUDESONIDE 1 MG/2 ML SUSPENSI* Use 2 mL via nebulizer twice * Patient taking differently: Use 1 mg via nebulizer once d* HEPARIN (PORCINE) 5,000 UNIT/* Inject 1 mL subcutaneously ev* Patient taking differently: Inject 5,000 Units subcutaneo* DEXTROSE 50 % IN WATER (D50W)* Inject 25 mL intravenously as* SENNOSIDES 8.6 MG-DOCUSATE SO* Take 1 tablet by mouth twice * BISACODYL 10 MG RECTAL SUPPOS* 1 Suppository by RECTAL route* FUROSEMIDE 20 MG/2 ML INJ Inject 2 mL intravenously onc* THERAPEUTIC MULTIVITAMIN TABL* Take 1 tablet by mouth once d* Patient taking differently: 1 tablet by PEG route once da* ASPIRIN 81 MG CHEWABLE TABLET Take 1 tablet by mouth once d* Patient taking differently: 81 mg by PEG route once daily* POTASSIUM CHLORIDE 20 MEQ ORA* 40-120 mEq by ORAL/FEEDING TU* Patient taking differently: 40 mEq by ORAL/FEEDING TUBE r* ZINC OXIDE-COD LIVER OIL 40 %* Apply 1 application to affect* PANTOPRAZOLE ORAL LIQUID 40 M* 10 mL by ORAL/FEEDING TUBE ro* LACOSAMIDE ORAL SOLUTION 100 * Take 20 mL by mouth every 12 * More... Problem List As Of Date 01/09/2018 Noted Resolved Essential hypertension [I10] INVALID FOR* Priority: C More... 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 Aortic dissection (HCC) [I71.00] INVALID FOR*10/13/2017 Priority: A More... Pain, postoperative, acute [G89.18] INVALID FOR*10/21/2017 Priority: D More... More... Coagulopathy (HCC) [D68.9] INVALID FOR*10/13/2017 Priority: H More... Acute blood loss anemia [D62] INVALID FOR*10/26/2017 Priority: F More... More... Lactic acid acidosis [E87.2] INVALID FOR*10/13/2017 Priority: F More... More... More... Cardiac insufficiency (HCC) [I50.9] INVALID FOR*10/21/2017 Priority: Mild More... Acute ischemic right MCA stroke (HCC) [I63.511] INVALID FOR* Priority: D More... Cerebral edema (HCC) [G93.6] INVALID FOR*10/21/2017 Priority: D More... Severe protein-calorie malnutrition (HCC) [E43] INVALID FOR* Priority: G More... Chronic respiratory failure (HCC) [J96.10] INVALID FOR* Priority: B More... Elevated LFTs [R79.89] INVALID FOR*11/01/2017 Priority: G More... Leukocytosis [D72.829] INVALID FOR* Priority: I More... 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 More... Seizure (HCC) [R56.9] INVALID FOR* Priority: E More... Hypernatremia [E87.0] INVALID FOR*11/01/2017 Priority: F More... Encounter Status:Closed by GERMAIN GARCÍA on 01/13/18 PROGRESS Observed: 01/08/2018 Status: COMPLETED Source: [place] 10:05 AM [facility] REPOSITORY HNO ID: [id number] Author: Zaid Hale Service: (none) Author Type: Systems Test Engineer Type: Progress Notes Filed: 01/08/2018 10:09 AM Note Text: Patient is at [facility]. Spoke with Natasha his nurse. Patient is doing well. He is on a regular diet with thin liquids. Jose is unable to walk. He scheduled for Cranioplasty for Skull Defect on 01-17-18, he will same day admit. Zaid Hale MA PROGRESS Observed: 01/06/2018 Status: COMPLETED Source: [place] 3:38 PM [facility] REPOSITORY HNO ID: [id number] Author: Zaid Hale Service: (none) Author Type: Systems Test Engineer Type: Progress Notes Filed: 01/08/2018 12:47 PM Note Text: Noted. Zaid Hale MA PROGRESS Observed: 01/06/2018 Status: COMPLETED Source: [place] 3:27 PM [facility] REPOSITORY HNO ID: [id number] Author: Kaykay Beth Service: (none) Author Type: Physician Type: Progress Notes Filed: 01/08/2018 12:47 PM Note Text: Noted Kaykay Beth MD PROGRESS Observed: 01/06/2018 Status: COMPLETED Source: [place] 2:28 PM [facility] REPOSITORY HNO ID: [id number] Author: Ricky Groves (Rn) Service: (none) Author Type: Registered Nurse Type: Progress Notes Filed: 01/08/2018 12:47 PM Note Text: TRANSITION CARE MANAGEMENT (TCM) DISCHARGE TO POST ACUTE FACILITY POST ACUTE TRANSFER SUMMARY: -Pt discharged from [facility] on 01/03/18 Mimi/ Meena Valladares . -Post Acute Facility Admitted to [facility] contact Karli Maldonado [phone] -Admitted for: Rupture of Aorta, Stroke Germain García, RN January 06, 2018 2:34 PM CNPTOUTREACH Observed: 01/06/2018 Status: COMPLETED Source: [place] 12:00 AM [facility] REPOSITORY Patient Outreach (FAMPWS) JANAYJOSE ([id number]) 1965 M [facility] Date Time Provider Department 01/06/18 RICKY GROVES (RN) SHARIPWS During your visit today, we recorded the following information about you: Germain García RN 01/08/2018 12:47 PM Signed TRANSITION CARE MANAGEMENT (TCM) DISCHARGE TO POST ACUTE FACILITY POST ACUTE TRANSFER SUMMARY: -Pt discharged from [facility] on 01/03/18 Mimi/ Meena Valladares . -Post Acute Facility Admitted to [facility] Karli Maldonado [phone] -Admitted for: Rupture of Aorta, Stroke Germain García RN January 06, 2018 2:34 PM Kaykay Beth MD 01/08/2018 12:47 PM Signed Noted MD Zaid Heart MA 01/08/2018 12:47 PM Signed Noted. Zaid Hale MA Allergies As of Date: 01/06/2018 Noted Allergy Reaction CATS 09/26/2009 GRASS POLLEN 12/08/2012 9 - Itching Date Reviewed: 12/30/2017 Reviewed by: Diana ([facility]) Hayde - Fully Assessed Reason for Visit: Transition Of Care [9004] Cmt: ESR D/C 01/03/18 to [facility] Reason For Visit History Recorded Prescriptions as of 01/06/2018 Sig: BUSPIRONE 10 MG TABLET Take 10 mg by mouth twice miesha* ACCUNEB INHALATION Inhale 2.5 mg as instructed e* ALPRAZOLAM 0.5 MG TABLET 0.5 mg by PEG route three yue* BACLOFEN ORAL 10 mg by PEG Tube route three* FAMOTIDINE 20 MG TABLET 20 mg by PEG route once daily. FUROSEMIDE 20 MG TABLET 20 mg by PEG route once daily. LACOSAMIDE 200 MG TABLET 200 mg by PEG route twice miesha* METOPROLOL TARTRATE 50 MG TAB* 50 mg by PEG route twice aparna* OXYCODONE 5 MG TABLET Take 5 mg by mouth every 6 ho* QUETIAPINE 50 MG TABLET 50 mg by PEG route daily at b* ACETAMINOPHEN 650 MG/20.3 ML * 15.62-31.23 mL by NASOGASTRIC* Patient taking differently: 500-1,000 mg by PEG route sunita* NYSTATIN 100,000 UNITS/ML ORA* Take 5 mL by mouth four times* IPRATROPIUM-ALBUTEROL 0.5 MG-* Inhale 3 mL as instructed sunita* Patient taking differently: Inhale 3 mL as instructed fou* METOPROLOL TARTRATE 25 MG TAB* Take 3 tablets by mouth every* AMLODIPINE 10 MG TABLET Take 1 tablet by mouth once d* Patient taking differently: 5 mg by PEG route once daily.* CHLORHEXIDINE GLUCONATE 0.12 * Take 15 mL by mouth every 6 h* BUDESONIDE 1 MG/2 ML SUSPENSI* Use 2 mL via nebulizer twice * Patient taking differently: Use 1 mg via nebulizer once d* HEPARIN (PORCINE) 5,000 UNIT/* Inject 1 mL subcutaneously ev* Patient taking differently: Inject 5,000 Units subcutaneo* DEXTROSE 50 % IN WATER (D50W)* Inject 25 mL intravenously as* SENNOSIDES 8.6 MG-DOCUSATE SO* Take 1 tablet by mouth twice * BISACODYL 10 MG RECTAL SUPPOS* 1 Suppository by RECTAL route* FUROSEMIDE 20 MG/2 ML INJ Inject 2 mL intravenously onc* THERAPEUTIC MULTIVITAMIN TABL* Take 1 tablet by mouth once d* Patient taking differently: 1 tablet by PEG route once da* ASPIRIN 81 MG CHEWABLE TABLET Take 1 tablet by mouth once d* Patient taking differently: 81 mg by PEG route once daily* POTASSIUM CHLORIDE 20 MEQ ORA* 40-120 mEq by ORAL/FEEDING TU* Patient taking differently: 40 mEq by ORAL/FEEDING TUBE r* ZINC OXIDE-COD LIVER OIL 40 %* Apply 1 application to affect* PANTOPRAZOLE ORAL LIQUID 40 M* 10 mL by ORAL/FEEDING TUBE ro* LACOSAMIDE ORAL SOLUTION 100 * Take 20 mL by mouth every 12 * More... Problem List As Of Date 01/06/2018 Noted Resolved Essential hypertension [I10] INVALID FOR* Priority: C More... 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 Aortic dissection (HCC) [I71.00] INVALID FOR*10/13/2017 Priority: A More... Pain, postoperative, acute [G89.18] INVALID FOR*10/21/2017 Priority: D More... More... Coagulopathy (HCC) [D68.9] INVALID FOR*10/13/2017 Priority: H More... Acute blood loss anemia [D62] INVALID FOR*10/26/2017 Priority: F More... More... Lactic acid acidosis [E87.2] INVALID FOR*10/13/2017 Priority: F More... More... More... Cardiac insufficiency (HCC) [I50.9] INVALID FOR*10/21/2017 Priority: Mild More... Acute ischemic right MCA stroke (HCC) [I63.511] INVALID FOR* Priority: D More... Cerebral edema (HCC) [G93.6] INVALID FOR*10/21/2017 Priority: D More... Severe protein-calorie malnutrition (HCC) [E43] INVALID FOR* Priority: G More... Chronic respiratory failure (HCC) [J96.10] INVALID FOR* Priority: B More... Elevated LFTs [R79.89] INVALID FOR*11/01/2017 Priority: G More... Leukocytosis [D72.829] INVALID FOR* Priority: I More... 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 More... Seizure (HCC) [R56.9] INVALID FOR* Priority: E More... Hypernatremia [E87.0] INVALID FOR*11/01/2017 Priority: F More... Encounter Status:Closed by GERMAIN GARCÍA on 01/08/18 PROGRESS Observed: 12/30/2017 Status: COMPLETED Source: [place] 3:21 PM [facility] [place] REPOSITORY HNO ID: [id number] Author: Sher Stinson Service: (none) Author Type: Physician Type: Progress Notes Filed: 01/07/2018 1:26 AM Note Text: [facility] Hospital Discharge Follow-up Consultation is requested by: SELF PCP: Kaykay Beth MD [address] [place] [address] CEREBROVASCULAR HISTORY History of Recent Event: Jose Gustafson is a 52 year old male who presents for evaluation of stroke. Reason for visit: Hospital follow up Date of last event: 10/10/2017 History of event: Patient was admitted on 10/07 for Aortic dissection from mid arch to descending aorta, had total arch repair on 10/07 with bleeding complications, hypotension and chest close failure. On 10/10 during attempted chest closure he develops left sided weakness [facility] infarct in R MCA. infarct with associated mass effect and increasing edema following repair of aortic dissection with arch replacement. He is s/p right decompressive hemicraniectomy Antiplatelet, Anticoalulant, Statin: Aspirin Side effects : No Refills needed: No Residual deficits: Aphasia, Cognitive impairments and Left-sided Weakness, Headache PT/OT/ST: Oupatient therapy with physical therapy, occupational Therapy and speech Therapy Disposition: LTACH Next phase of care: Home with spouse and outpatient therapy is the goal. Interval history: Remains at LTC Plan is to go home soon is planning on taking off until february 26 Daughter is getting Apr 05 Is able to stand with assiste Taking a few steps with assistance Eating regular diet L arm is very painful E stem treatments on arm and leg - more helpful on leg Mood is generally stable, anxiety is much better PT/OT/SERGER Memory - short term is still problematic at times Cognitively doing well Questions for visit: What to expect for independence in future? PAST MEDICAL HISTORY Diagnosis Date - Acute kidney injury (HCC) 10/09/2017 - Aortic dissection (HCC) - History of kidney stones - Hypertension - Stroke (cerebrum) (HCC) 10/11/2017 - Unspecified asthma(493.90) PAST SURGICAL HISTORY Procedure Laterality Date - COLONOSCOP W/ OR W/O BRSH SPEC 08/23/2014 Colonoscopy - LITHOTRIPSY EXTRACORP SHOCK WAVE(ESWL) 18 months ago - PAST SURGICAL HISTORY OF 2012 left ankle ORIF- hardware - PAST SURGICAL HISTORY OF 2013 ORIF left wrist - hardware - REMOVAL OF HEEL SPUR 2002, 2004 Bilateral - REPAIR ING HERNIA,5+Y/O,REDUCIBL Hernia repair, inguinal, as FAMILY HISTORY Problem Relation Age of Onset - Stroke Father age 48 of CVA - Asthma Paternal Grandfather Social History Marital status: Spouse name: Years of education: Number of children: Social History Main Topics Smoking status: Former Smoker Packs/day: 0.00 Years: 0.00 Types: Cigars Quit date: 10/10/2017 Smokeless tobacco: Never Used Alcohol use: Yes 6.0 oz/week Cans of Beer (12oz): 4 per week Drug use: No Sexual activity: Yes Partners with: Female Current Outpatient Prescriptions: busPIRone (BUSPAR) 10 mg tablet Take 10 mg by mouth twice daily. albuterol sulfate (ACCUNEB INHALATION) Inhale 2.5 mg as instructed every 6 hours as needed. ALPRAZolam (XANAX) 0.5 mg tablet 0.5 mg by PEG route three times daily as needed. BACLOFEN ORAL 10 mg by PEG Tube route three times daily. famotidine (PEPCID) 20 mg tablet 20 mg by PEG route once daily. furosemide (LASIX) 20 mg tablet 20 mg by PEG route once daily. lacosamide (VIMPAT) 200 mg tab 200 mg by PEG route twice daily. metoprolol tartrate, short acting, (LOPRESSOR) 50 mg tablet 50 mg by PEG route twice daily. oxyCODONE IR (ROXICODONE) 5 mg immediate release tablet Take 5 mg by mouth every 6 hours as needed. acetaminophen (TYLENOL) 650 mg/20.3 mL soln 15.62-31.23 mL by NASOGASTRIC route every 6 hours as needed. (Patient taking differently: 500-1,000 mg by PEG route every 6 hours as needed. ) nystatin (MYCOSTATIN) 100,000 units/mL susp Take 5 mL by mouth four times daily. ipratropium-albuterol (DUONEB) 0.5 mg-3 mg(2.5 mg base)/3 mL nebu Inhale 3 mL as instructed every 4 hours as needed. (Patient taking differently: Inhale 3 mL as instructed four times daily. ) metoprolol tartrate, short acting, (LOPRESSOR) 25 mg tablet Take 3 tablets by mouth every 8 hours. amLODIPine (NORVASC) 10 mg tablet Take 1 tablet by mouth once daily. (Patient taking differently: 5 mg by PEG route once daily. ) Chlorhexidine Gluconate (PERIDEX) 0.12 % solution Take 15 mL by mouth every 6 hours. budesonide (PULMICORT) 1 mg/2 mL nebulizer solution Use 2 mL via nebulizer twice daily. (Patient taking differently: Use 1 mg via nebulizer once daily. ) heparin 5,000 unit/mL injection Inject 1 mL subcutaneously every 12 hours. (Patient taking differently: Inject 5,000 Units subcutaneously every 8 hours. ) dextrose 50% in water solution Inject 25 mL intravenously as needed. bisacodyl (DULCOLAX) 10 mg supp 1 Suppository by RECTAL route once daily as needed. furosemide (LASIX) 20 mg/2 mL soln Inject 2 mL intravenously once daily. therapeutic multivitamin (THERA VITAMIN) tablet Take 1 tablet by mouth once daily. (Patient taking differently: 1 tablet by PEG route once daily. ) aspirin 81 mg chewable tablet Take 1 tablet by mouth once daily. (Patient taking differently: 81 mg by PEG route once daily. ) potassium chloride (KLOR-CON) 20 mEq packet 40-120 mEq by ORAL/FEEDING TUBE route as needed (low potassium). (Patient taking differently: 40 mEq by ORAL/FEEDING TUBE route once daily. ) zinc oxide-cod liver oil (DESITIN 40%) 40 % paste Apply 1 application to affected area twice daily. pantoprazole (PROTONIX) 40 mg/20 mL 10 mL by ORAL/FEEDING TUBE route DAILY (6 AM). lacosamide (VIMPAT) 100 mg/10 mL Take 20 mL by mouth every 12 hours. QUEtiapine (SEROQUEL) 50 mg tablet 50 mg by PEG route daily at bedtime. senna-docusate (SENNA-S) 8.6-50 mg per tablet Take 1 tablet by mouth twice daily. No current facility-administered medications for this visit. MEDICATIONS Current Outpatient Prescriptions: busPIRone (BUSPAR) 10 mg tablet Take 10 mg by mouth twice daily. Disp: Rfl: albuterol sulfate (ACCUNEB INHALATION) Inhale 2.5 mg as instructed every 6 hours as needed. Disp: Rfl: ALPRAZolam (XANAX) 0.5 mg tablet 0.5 mg by PEG route three times daily as needed. Disp: Rfl: BACLOFEN ORAL 10 mg by PEG Tube route three times daily. Disp: Rfl: famotidine (PEPCID) 20 mg tablet 20 mg by PEG route once daily. Disp: Rfl: furosemide (LASIX) 20 mg tablet 20 mg by PEG route once daily. Disp: Rfl: lacosamide (VIMPAT) 200 mg tab 200 mg by PEG route twice daily. Disp: Rfl: metoprolol tartrate, short acting, (LOPRESSOR) 50 mg tablet 50 mg by PEG route twice daily. Disp: Rfl: oxyCODONE IR (ROXICODONE) 5 mg immediate release tablet Take 5 mg by mouth every 6 hours as needed. Disp: Rfl: acetaminophen (TYLENOL) 650 mg/20.3 mL soln 15.62-31.23 mL by NASOGASTRIC route every 6 hours as needed. (Patient taking differently: 500-1,000 mg by PEG route every 6 hours as needed. ) Disp: Rfl: nystatin (MYCOSTATIN) 100,000 units/mL susp Take 5 mL by mouth four times daily. Disp: Rfl: ipratropium-albuterol (DUONEB) 0.5 mg-3 mg(2.5 mg base)/3 mL nebu Inhale 3 mL as instructed every 4 hours as needed. (Patient taking differently: Inhale 3 mL as instructed four times daily. ) Disp: Rfl: metoprolol tartrate, short acting, (LOPRESSOR) 25 mg tablet Take 3 tablets by mouth every 8 hours. Disp: Rfl: amLODIPine (NORVASC) 10 mg tablet Take 1 tablet by mouth once daily. (Patient taking differently: 5 mg by PEG route once daily. ) Disp: Rfl: Chlorhexidine Gluconate (PERIDEX) 0.12 % solution Take 15 mL by mouth every 6 hours. Disp: Rfl: budesonide (PULMICORT) 1 mg/2 mL nebulizer solution Use 2 mL via nebulizer twice daily. (Patient taking differently: Use 1 mg via nebulizer once daily. ) Disp: Rfl: heparin 5,000 unit/mL injection Inject 1 mL subcutaneously every 12 hours. (Patient taking differently: Inject 5,000 Units subcutaneously every 8 hours. ) Disp: Rfl: dextrose 50% in water solution Inject 25 mL intravenously as needed. Disp: Rfl: bisacodyl (DULCOLAX) 10 mg supp 1 Suppository by RECTAL route once daily as needed. Disp: Rfl: furosemide (LASIX) 20 mg/2 mL soln Inject 2 mL intravenously once daily. Disp: Rfl: therapeutic multivitamin (THERA VITAMIN) tablet Take 1 tablet by mouth once daily. (Patient taking differently: 1 tablet by PEG route once daily. ) Disp: Rfl: aspirin 81 mg chewable tablet Take 1 tablet by mouth once daily. (Patient taking differently: 81 mg by PEG route once daily. ) Disp: Rfl: potassium chloride (KLOR-CON) 20 mEq packet 40-120 mEq by ORAL/FEEDING TUBE route as needed (low potassium). (Patient taking differently: 40 mEq by ORAL/FEEDING TUBE route once daily. ) Disp: Rfl: zinc oxide-cod liver oil (DESITIN 40%) 40 % paste Apply 1 application to affected area twice daily. Disp: Rfl: pantoprazole (PROTONIX) 40 mg/20 mL 10 mL by ORAL/FEEDING TUBE route DAILY (6 AM). Disp: Rfl: lacosamide (VIMPAT) 100 mg/10 mL Take 20 mL by mouth every 12 hours. Disp: Rfl: QUEtiapine (SEROQUEL) 50 mg tablet 50 mg by PEG route daily at bedtime. Disp: Rfl: senna-docusate (SENNA-S) 8.6-50 mg per tablet Take 1 tablet by mouth twice daily. Disp: Rfl: No current facility-administered medications for this visit. REVIEW OF SYSTEMS ALLERGIES Allergen Reactions - Cats - Grass Pollen Itching Review of Systems Constitutional Negative for Fatigue Eyes Positive for Vision loss or change (l vision loss) Hent Positive for Recent change in speech or voice Negative for Tinnitus Cardiovascular Negative for Lightheadedness Respiratory Negative for Snoring GI Negative for Blood in Stool and Nausea/Vomiting Negative for Urgency Endocrine Negative for Excessive Thirst Musculoskeletal Negative for Back Pain Integumentary Negative for Rashes Heme/Lymph Negative for Prolonged Bleeding and Easy Bruising Allergy/Immunologic: Negative Neurologic Positive for Weakness Negative for Memory Problems and Headache Psychiatric Negative for Depression Patient's Review of Systems has been reviewed with the patient and updated as appropriate. PHYSICAL EXAMINATION BP 100/62 (BP Site: Left Arm, BP Position: Sitting, BP Cuff Size: Regular Adult) Pulse 63 Resp 17 Ht 182.9 cm (6') Wt 64.9 kg (143 lb) BMI 19.39 kg/m? General: Well-developed, well-nourished, in no acute distress. Appears anxious. HEENT: Wearing helmet s/p R Hemicraniectomy Extremities: L arm spastic with hand swelling. L UE/LE flaccid paralysis. Skin: No rash or ecchymoses. Neurological: Awake, alert, oriented to person, place, and time. Speech in whisper due to vocal cord paralysis. Mild dysarthria. Naming, repetition, recall, comprehension, calculation intact. Good attention and insight into illness. Cranial Nerves: PERRL, extraocular movements intact without nystagmus. Visual field deficit Left lower field. Fundoscopic examination normal with sharp optic discs bilaterally. Facial sensation decreased on left. Assymetric smile. Tongue midline. Motor: LUE/LLE hemiplegia. Sensation: Decreased sensation on left. Coordination: [id number] intact on right. LABS Cholesterol: Cholesterol, Total (mg/dL) Date Value 11/27/2017 112 LDL Cholesterol (mg/dL) Date Value 11/27/2017 54 HDL Cholesterol (mg/dL) Date Value 11/27/2017 32 Triglyceride (mg/dL) Date Value 11/27/2017 129 Diabetes: Hemoglobin A1C (%) Date Value 10/07/[address] brain 10/20/17 s/p craniectomy: Post-operative change: ?Redemonstrated are postoperative findings consistent with decompressive right hemicraniectomy. Acute change: ? Again seen is the evolving right MCA territory infarct. Hemorrhage: Petechial hemorrhage within the infarct, more conspicuous on this exam than the prior CT from 10/15/2017. ?The small amount of subdural hemorrhage overlying the right frontal convexity and right tentorium is similar. ?Extra-axial hemorrhage deep to the scalp flap measuring approximately 1.2 cm in transverse thickness and extending to the right sylvian region is unchanged. ?Stable minimal subdural blood products along the right aspect of the tentorium. Mass Lesion / Mass Effect: ? There is no significant change in intracranial mass effect with partial effacement of the right lateral ventricle with no significant midline shift on the current exam. ?There is stable herniation of the infarcted parenchyma through the craniectomy defect without evidence of impingement. Chronic change: ? None apparent. Parenchyma: ?There is no significant volume loss. Ventricles: Stable effacement of the right lateral ventricle and minimal prominence of the right temporal horn. Paranasal sinuses and skull base: Mild mucosal thickening involving the maxillary, sphenoid and right frontal sinus again noted. ?Nonspecific patchy opacification of the mastoid air cells. ?Overlying scalp EEG leads were placed in the interval. [facility] Ischemic Stroke: Large-artery atherosclerosis (embolus/thrombosis) IMPRESSION 1. R MCA CVA 2. s/p Craniectomy 3. L hemiplegia 4. L visual field deficit 5. Aortic dissection 6. Hypertension: Blood pressure goal < 130/80 Blood pressure today: BP 100/62 (BP Site: Left Arm, BP Position: Sitting, BP Cuff Size: Regular Adult) Pulse 63 Resp 17 Ht 182.9 cm (6') Wt 64.9 kg (143 lb) BMI 19.39 kg/m? 7. Hyperlipidemia: LDL goal < 70 Most recent LDL: LDL Cholesterol (mg/dL) Date Value 11/27/[address] Sharif for cranioplasty repair. 2. Consult [facility]COL[facility] Garcias for rehabilitation strategies 3. Consult spasticity clinic for L side 4. Continue PT/OT and SERGER 5. Regular follow up with primary care doctor for health maintenance -Assist ensuring blood pressure and cholesterol are at goal -Screen and manage diabetes 6. Lifestyle modification -- Establish goals -Diet -Regular Exercise as discussed -Establish weight goals with primary care doctor 7. Additional stroke reduction measures and stroke warning signs are listed below. 8. Return to see Diana Lock CNP in 3-6 months 9. Consider consult to vascular medicine when stable 10. Please do not hesitate to call if you have any questions Diana Lock APRN.[facility] STAFF PHYSICIAN NOTE OF PERSONAL INVOLVEMENT IN CARE I have reviewed the consult note obtained and documented by the nurse practitioner and I personally participated in the curry components. I have discussed the case and management of the patient's care. The following comments revise or confirm relevant curry components of their note. CARE COORDINATION: The majority of the visit was spent counseling and/or coordinating care for the patient. Rjmi-lr-[id number] time was 40 minutes SIGNATURE: Sher Stinson DO PAGER: [id number] DATE of SERVICE: 12/30/2017 TIME of SERVICE: 3pm CC SELF Kaykay Beth MD [address] [place] [address] CNOV Observed: 12/30/2017 Status: COMPLETED Source: [place] 2:40 PM [facility] [place] REPOSITORY Office Visit ([id number]) JANAYJOSE ([id number]) 1965 M T Date Time Provider Department 12/30/17 2:40 PM SHER STINSON [id number] During your visit today, we recorded the following information about you: Pulse Respiration Blood pressure Weight 63/minute 17/minute 100/62 64.9 kg Height 1.829 m Sher Stinson DO 01/07/2018 1:26 AM Signed [facility] Hospital Discharge Follow-up Consultation is requested by: SELF PCP: Kaykay Beth MD [address] [place] [address] CEREBROVASCULAR HISTORY History of Recent Event: Jose Martinez Janay is a 52 year old male who presents for evaluation of stroke. Reason for visit: Hospital follow up Date of last event: 10/10/2017 History of event: Patient was admitted on 10/07 for Aortic dissection from mid arch to descending aorta, had total arch repair on 10/07 with bleeding complications, hypotension and chest close failure. On 10/10 during attempted chest closure he develops left sided weakness [facility] showed infarct in R MCA. infarct with associated mass effect and increasing edema following repair of aortic dissection with arch replacement. He is s/p right decompressive hemicraniectomy Antiplatelet, Anticoalulant, Statin: Aspirin Side effects : No Refills needed: No Residual deficits: Aphasia, Cognitive impairments and Left- sided Weakness, Headache PT/OT/ST: Oupatient therapy with physical therapy, occupational Therapy and speech Therapy Disposition: LTACH Next phase of care: Home with spouse and outpatient therapy is the goal. Interval history: Remains at LTC Plan is to go home soon is planning on taking off until february 26 Daughter is getting Apr 05 Is able to stand with assiste Taking a few steps with assistance Eating regular diet L arm is very painful E stem treatments on arm and leg - more helpful on leg Mood is generally stable, anxiety is much better PT/OT/SERGER Memory - short term is still problematic at times Cognitively doing well Questions for visit: What to expect for independence in future? PAST MEDICAL HISTORY Diagnosis Date - Acute kidney injury (HCC) 10/09/2017 - Aortic dissection (HCC) - History of kidney stones - Hypertension - Stroke (cerebrum) (HCC) 10/11/2017 - Unspecified asthma(493.90) PAST SURGICAL HISTORY Procedure Laterality Date - COLONOSCOP W/ OR W/O BRSH SPEC 08/23/2014 Colonoscopy - LITHOTRIPSY EXTRACORP SHOCK WAVE(ESWL) 18 months ago - PAST SURGICAL HISTORY OF 2012 left ankle ORIF- hardware - PAST SURGICAL HISTORY OF 2012 ORIF left wrist - hardware - REMOVAL OF HEEL SPUR 2002, 2004 Bilateral - REPAIR ING HERNIA,5+Y/O,REDUCIBL Hernia repair, inguinal, as FAMILY HISTORY Problem Relation Age of Onset - Stroke Father age 48 of CVA - Asthma Paternal Grandfather Social History Marital status: Spouse name: Years of education: Number of children: Social History Main Topics Smoking status: Former Smoker Packs/day: 0.00 Years: 0.00 Types: Cigars Quit date: 10/10/2017 Smokeless tobacco: Never Used Alcohol use: Yes 6.0 oz/week Cans of Beer (12oz): 4 per week Drug use: No Sexual activity: Yes Partners with: Female Current Outpatient Prescriptions: busPIRone (BUSPAR) 10 mg tablet Take 10 mg by mouth twice daily. albuterol sulfate (ACCUNEB INHALATION) Inhale 2.5 mg as instructed every 6 hours as needed. ALPRAZolam (XANAX) 0.5 mg tablet 0.5 mg by PEG route three times daily as needed. BACLOFEN ORAL 10 mg by PEG Tube route three times daily. famotidine (PEPCID) 20 mg tablet 20 mg by PEG route once daily. furosemide (LASIX) 20 mg tablet 20 mg by PEG route once daily. lacosamide (VIMPAT) 200 mg tab 200 mg by PEG route twice daily. metoprolol tartrate, short acting, (LOPRESSOR) 50 mg tablet 50 mg by PEG route twice daily. oxyCODONE IR (ROXICODONE) 5 mg immediate release tablet Take 5 mg by mouth every 6 hours as needed. acetaminophen (TYLENOL) 650 mg/20.3 mL soln 15.62-31.23 mL by NASOGASTRIC route every 6 hours as needed. (Patient taking differently: 500- 1,000 mg by PEG route every 6 hours as needed. ) nystatin (MYCOSTATIN) 100,000 units/mL susp Take 5 mL by mouth four times daily. ipratropium-albuterol (DUONEB) 0.5 mg-3 mg(2.5 mg base)/3 mL nebu Inhale 3 mL as instructed every 4 hours as needed. (Patient taking differently: Inhale 3 mL as instructed four times daily. ) metoprolol tartrate, short acting, (LOPRESSOR) 25 mg tablet Take 3 tablets by mouth every 8 hours. amLODIPine (NORVASC) 10 mg tablet Take 1 tablet by mouth once daily. (Patient taking differently: 5 mg by PEG route once daily. ) Chlorhexidine Gluconate (PERIDEX) 0.12 % solution Take 15 mL by mouth every 6 hours. budesonide (PULMICORT) 1 mg/2 mL nebulizer solution Use 2 mL via nebulizer twice daily. (Patient taking differently: Use 1 mg via nebulizer once daily. ) heparin 5,000 unit/mL injection Inject 1 mL subcutaneously every 12 hours. (Patient taking differently: Inject 5,000 Units subcutaneously every 8 hours. ) dextrose 50% in water solution Inject 25 mL intravenously as needed. bisacodyl (DULCOLAX) 10 mg supp 1 Suppository by RECTAL route once daily as needed. furosemide (LASIX) 20 mg/2 mL soln Inject 2 mL intravenously once daily. therapeutic multivitamin (THERA VITAMIN) tablet Take 1 tablet by mouth once daily. (Patient taking differently: 1 tablet by PEG route once daily. ) aspirin 81 mg chewable tablet Take 1 tablet by mouth once daily. (Patient taking differently: 81 mg by PEG route once daily. ) potassium chloride (KLOR-CON) 20 mEq packet 40-120 mEq by ORAL/FEEDING TUBE route as needed (low potassium). (Patient taking differently: 40 mEq by ORAL/FEEDING TUBE route once daily. ) zinc oxide-cod liver oil (DESITIN 40%) 40 % paste Apply 1 application to affected area twice daily. pantoprazole (PROTONIX) 40 mg/20 mL 10 mL by ORAL/FEEDING TUBE route DAILY (6 AM). lacosamide (VIMPAT) 100 mg/10 mL Take 20 mL by mouth every 12 hours. QUEtiapine (SEROQUEL) 50 mg tablet 50 mg by PEG route daily at bedtime. senna-docusate (SENNA-S) 8.6-50 mg per tablet Take 1 tablet by mouth twice daily. No current facility-administered medications for this visit. MEDICATIONS Current Outpatient Prescriptions: busPIRone (BUSPAR) 10 mg tablet Take 10 mg by mouth twice daily. Disp: Rfl: albuterol sulfate (ACCUNEB INHALATION) Inhale 2.5 mg as instructed every 6 hours as needed. Disp: Rfl: ALPRAZolam (XANAX) 0.5 mg tablet 0.5 mg by PEG route three times daily as needed. Disp: Rfl: BACLOFEN ORAL 10 mg by PEG Tube route three times daily. Disp: Rfl: famotidine (PEPCID) 20 mg tablet 20 mg by PEG route once daily. Disp: Rfl: furosemide (LASIX) 20 mg tablet 20 mg by PEG route once daily. Disp: Rfl: lacosamide (VIMPAT) 200 mg tab 200 mg by PEG route twice daily. Disp: Rfl: metoprolol tartrate, short acting, (LOPRESSOR) 50 mg tablet 50 mg by PEG route twice daily. Disp: Rfl: oxyCODONE IR (ROXICODONE) 5 mg immediate release tablet Take 5 mg by mouth every 6 hours as needed. Disp: Rfl: acetaminophen (TYLENOL) 650 mg/20.3 mL soln 15.62-31.23 mL by NASOGASTRIC route every 6 hours as needed. (Patient taking differently: 500- 1,000 mg by PEG route every 6 hours as needed. ) Disp: Rfl: nystatin (MYCOSTATIN) 100,000 units/mL susp Take 5 mL by mouth four times daily. Disp: Rfl: ipratropium-albuterol (DUONEB) 0.5 mg-3 mg(2.5 mg base)/3 mL nebu Inhale 3 mL as instructed every 4 hours as needed. (Patient taking differently: Inhale 3 mL as instructed four times daily. ) Disp: Rfl: metoprolol tartrate, short acting, (LOPRESSOR) 25 mg tablet Take 3 tablets by mouth every 8 hours. Disp: Rfl: amLODIPine (NORVASC) 10 mg tablet Take 1 tablet by mouth once daily. (Patient taking differently: 5 mg by PEG route once daily. ) Disp: Rfl: Chlorhexidine Gluconate (PERIDEX) 0.12 % solution Take 15 mL by mouth every 6 hours. Disp: Rfl: budesonide (PULMICORT) 1 mg/2 mL nebulizer solution Use 2 mL via nebulizer twice daily. (Patient taking differently: Use 1 mg via nebulizer once daily. ) Disp: Rfl: heparin 5,000 unit/mL injection Inject 1 mL subcutaneously every 12 hours. (Patient taking differently: Inject 5,000 Units subcutaneously every 8 hours. ) Disp: Rfl: dextrose 50% in water solution Inject 25 mL intravenously as needed. Disp: Rfl: bisacodyl (DULCOLAX) 10 mg supp 1 Suppository by RECTAL route once daily as needed. Disp: Rfl: furosemide (LASIX) 20 mg/2 mL soln Inject 2 mL intravenously once daily. Disp: Rfl: therapeutic multivitamin (THERA VITAMIN) tablet Take 1 tablet by mouth once daily. (Patient taking differently: 1 tablet by PEG route once daily. ) Disp: Rfl: aspirin 81 mg chewable tablet Take 1 tablet by mouth once daily. (Patient taking differently: 81 mg by PEG route once daily. ) Disp: Rfl: potassium chloride (KLOR-CON) 20 mEq packet 40-120 mEq by ORAL/FEEDING TUBE route as needed (low potassium). (Patient taking differently: 40 mEq by ORAL/FEEDING TUBE route once daily. ) Disp: Rfl: zinc oxide-cod liver oil (DESITIN 40%) 40 % paste Apply 1 application to affected area twice daily. Disp: Rfl: pantoprazole (PROTONIX) 40 mg/20 mL 10 mL by ORAL/FEEDING TUBE route DAILY (6 AM). Disp: Rfl: lacosamide (VIMPAT) 100 mg/10 mL Take 20 mL by mouth every 12 hours. Disp: Rfl: QUEtiapine (SEROQUEL) 50 mg tablet 50 mg by PEG route daily at bedtime. Disp: Rfl: senna-docusate (SENNA-S) 8.6-50 mg per tablet Take 1 tablet by mouth twice daily. Disp: Rfl: No current facility-administered medications for this visit. REVIEW OF SYSTEMS ALLERGIES Allergen Reactions - Cats - Grass Pollen Itching Review of Systems Constitutional Negative for Fatigue Eyes Positive for Vision loss or change (l vision loss) Hent Positive for Recent change in speech or voice Negative for Tinnitus Cardiovascular Negative for Lightheadedness Respiratory Negative for Snoring GI Negative for Blood in Stool and Nausea/Vomiting Negative for Urgency Endocrine Negative for Excessive Thirst Musculoskeletal Negative for Back Pain Integumentary Negative for Rashes Heme/Lymph Negative for Prolonged Bleeding and Easy Bruising Allergy/Immunologic: Negative Neurologic Positive for Weakness Negative for Memory Problems and Headache Psychiatric Negative for Depression Patient's Review of Systems has been reviewed with the patient and updated as appropriate. PHYSICAL EXAMINATION BP 100/62 (BP Site: Left Arm, BP Position: Sitting, BP Cuff Size: Regular Adult) Pulse 63 Resp 17 Ht 182.9 cm (6') Wt 64.9 kg (143 lb) BMI 19.39 kg/m? General: Well-developed, well-nourished, in no acute distress. Appears anxious. HEENT: Wearing helmet s/p R Hemicraniectomy Extremities: L arm spastic with hand swelling. L UE/LE flaccid paralysis. Skin: No rash or ecchymoses. Neurological: Awake, alert, oriented to person, place, and time. Speech in whisper due to vocal cord paralysis. Mild dysarthria. Naming, repetition, recall, comprehension, calculation intact. Good attention and insight into illness. Cranial Nerves: PERRL, extraocular movements intact without nystagmus. Visual field deficit Left lower field. Fundoscopic examination normal with sharp optic discs bilaterally. Facial sensation decreased on left. Assymetric smile. Tongue midline. Motor: LUE/LLE hemiplegia. Sensation: Decreased sensation on left. Coordination: [id number] intact on right. LABS Cholesterol: Cholesterol, Total (mg/dL) Date Value 11/27/2017 112 LDL Cholesterol (mg/dL) Date Value 11/27/2017 54 HDL Cholesterol (mg/dL) Date Value 11/27/2017 32 Triglyceride (mg/dL) Date Value 11/27/2017 129 Diabetes: Hemoglobin A1C (%) Date Value 10/07/[address] brain 10/20/17 s/p craniectomy: Post-operative change: ?Redemonstrated are postoperative findings consistent with decompressive right hemicraniectomy. Acute change: ? Again seen is the evolving right MCA territory infarct. Hemorrhage: Petechial hemorrhage within the infarct, more conspicuous on this exam than the prior CT from 10/15/2017. ?The small amount of subdural hemorrhage overlying the right frontal convexity and right tentorium is similar. ?Extra-axial hemorrhage deep to the scalp flap measuring approximately 1.2 cm in transverse thickness and extending to the right sylvian region is unchanged. ?Stable minimal subdural blood products along the right aspect of the tentorium. Mass Lesion / Mass Effect: ? There is no significant change in intracranial mass effect with partial effacement of the right lateral ventricle with no significant midline shift on the current exam. ?There is stable herniation of the infarcted parenchyma through the craniectomy defect without evidence of impingement. Chronic change: ? None apparent. Parenchyma: ?There is no significant volume loss. Ventricles: Stable effacement of the right lateral ventricle and minimal prominence of the right temporal horn. Paranasal sinuses and skull base: Mild mucosal thickening involving the maxillary, sphenoid and right frontal sinus again noted. ?Nonspecific patchy opacification of the mastoid air cells. ?Overlying scalp EEG leads were placed in the interval. CEREBROVASCULAR CATEGORIES Ischemic Stroke: Large-artery atherosclerosis (embolus/thrombosis) IMPRESSION 1. R MCA CVA 2. s/p Craniectomy 3. L hemiplegia 4. L visual field deficit 5. Aortic dissection 6. Hypertension: Blood pressure goal < 130/80 Blood pressure today: BP 100/62 (BP Site: Left Arm, BP Position: Sitting, BP Cuff Size: Regular Adult) Pulse 63 Resp 17 Ht 182.9 cm (6') Wt 64.9 kg (143 lb) BMI 19.39 kg/m? 7. Hyperlipidemia: LDL goal < 70 Most recent LDL: LDL Cholesterol (mg/dL) Date Value 11/27/2017 [address] Sharif for cranioplasty repair. 2. Consult PMASELAM R for rehabilitation strategies 3. Consult spasticity clinic for L side 4. Continue PT/OT and SERGER 5. Regular follow up with primary care doctor for health maintenance -Assist ensuring blood pressure and cholesterol are at goal -Screen and manage diabetes 6. Lifestyle modification -- Establish goals -Diet -Regular Exercise as discussed -Establish weight goals with primary care doctor 7. Additional stroke reduction measures and stroke warning signs are listed below. 8. Return to see Diana Lock CNP in 3-6 months 9. Consider consult to vascular medicine when stable 10. Please do not hesitate to call if you have any questions Diana Lock APRN.CNP [facility] STAFF PHYSICIAN NOTE OF PERSONAL INVOLVEMENT IN CARE I have reviewed the consult note obtained and documented by the nurse practitioner and I personally participated in the curry components. I have discussed the case and management of the patient's care. The following comments revise or confirm relevant curry components of their note. CARE COORDINATION: The majority of the visit was spent counseling and/or coordinating care for the patient. Iczq-zn-jacz time was 40 minutes SIGNATURE: Sher Stinson DO PAGER: [id number] DATE of SERVICE: 12/30/2017 TIME of SERVICE: 3pm CC SELF Kaykay Beth MD [address] [place] [address] Diana Lock APRN.CNP 12/31/2017 2:44 PM Addendum Regarding your visit with Dr. Stinson, Diana Lock CNP and Nurse Norm Martino today at the [facility] we discussed the following: Impression: 1. R MCA CVA 2. s/p Craniectomy 3. L hemiplegia 4. L visual field deficit 5. Aortic dissection 6. Hypertension: Blood pressure goal < 130/80 Blood pressure today: BP 100/62 (BP Site: Left Arm, BP Position: Sitting, BP Cuff Size: Regular Adult) Pulse 63 Resp 17 Ht 182.9 cm (6') Wt 64.9 kg (143 lb) BMI 19.39 kg/m? 7. Hyperlipidemia: LDL goal < 70 Most recent LDL: LDL Cholesterol (mg/dL) Date Value 11/27/2017 54 Recommendations: 1. Consult Dr. Sharif for cranioplasty repair. 2. Consult MALCOLM Garcias for rehabilitation strategies 3. Consult spasticity clinic for L side 4. Continue PT/OT and SERGER 5. Regular follow up with primary care doctor for health maintenance -Assist ensuring blood pressure and cholesterol are at goal -Screen and manage diabetes 6. Lifestyle modification -- Establish goals -Diet -Regular Exercise as discussed -Establish weight goals with primary care doctor 7. Additional stroke reduction measures and stroke warning signs are listed below. 8. Return to see Diana Lock CNP in 3-6 months 9. Please do not hesitate to call if you have any questions Sher Stinson, [facility] [address] [place] [address] / [place] [address] Office: [phone] ~~~~~~~~~~~~~~~~~~~~~~~~~~~~~~~~~~~~~~~~~~~~~~~~~~~~~~~~~~~~~~~~~~~~~~~~ Stroke Signs and Symptoms: *Stroke is a medical emergency. Know the warning signs of stroke: Sudden numbness or weakness of the face, arm or leg, especially on one side of the body Sudden confusion, trouble speaking, or understanding Sudden trouble seeing in one eye, or both eyes Sudden trouble walking, dizziness, loss of balance, or coordination Sudden severe headache with no known cause *If you, or someone with you, has one or more of these signs, don't delay! Immediately call 911, or the emergency medical services (EMS) number so an ambulance can be sent for you. Also, check the time so that you will know when the symptoms first appeared. It is very important to take immediate action, every second counts. Medical treatment may be available if action is taken early enough. ~~~~~~~~~~~~~~~~~~~~~~~~~~~~~~~~~~~~~~~~~~~~~~~~~~~~~~~~~~~~~~~~~~~~~~~~ General Guidelines to Help Reduce Risk of Recurrent Stroke Blood Pressure Management: Blood Pressure reduction is recommended for both prevention of recurrent stroke and prevention of other vascular events in persons who have had an ischemic stroke or TIA and are beyond the first 24 hours. Several lifestyle modifications have been associated with BP reduction and are a reasonable part of a comprehensive antihypertensive therapy -These modifications include: - salt restriction - weight loss - consumption of a diet rich in fruits, vegetables, and low-fat dairy products - Regular aerobic physical activity - Limited alcohol consumption Goal: Prehypertension (systolic BP of 120-139 mm Hg or diastolic BP of 80-89 mm Hg): Perform annual BP screening and lifestyle modifications Hypertension: Combine medications with above lifestyle modifications to reach your goal blood pressure as defined above. Monitor your blood pressure at home regularly to ensure you are reaching your goals Cholesterol and Lipid Management - Statin therapy with intensive lipid-lowering effects is recommended to reduce risk of stroke and cardiovascular events among patients with ischemic stroke or TIA who have evidence of atherosclerosis Diet: - Reduced sodium and increased potassium intake; DASH-style diet rich in fruits and vegetables - Consider Mediterranean diet supplemented with nuts Smoking and Tobacco Use: - Strongly recommend smoking and tobacco use cessation to reduce risk of stroke. - Counseling, nicotine products, and oral smoking cessation medications are effective for helping smokers quit and can be provided if needed. Alcohol Consumption: - Heavy drinkers should eliminate or reduce their consumption of alcohol. - Persons who continue drinking the following may be reasonable: - less than or equal to 2 drinks/day for men - less than or equal to 1 drink/day for non women Exercise - If capable of engaging in physical activity, at least 40 minutes of moderate to vigorous intensity physical exercise, typically defined as vigorous activity sufficient to break a sweat or noticeably raise heart rate, 3-4 days a week (eg, walking briskly, using an exercise bicycle) may be considered to reduce the risk factors and comorbid conditions that increase the likelihood of recurrent stroke - If disability after ischemic stroke, supervision by a healthcare professional, such as a physical therapist or cardiac rehabilitation professional, at least on initiation of an exercise regimen, may be considered Adopted from the [place] [employer] Attack : A Guideline for Healthcare Professionals From the [place] [employer] Guidelines for the Prevention of Stroke in Patients With Stroke or Transient Ischemic - 2013 Referring Provider: SELF [200] Allergies As of Date: 12/30/2017 Noted Allergy Reaction CATS 09/26/2009 GRASS POLLEN 12/08/2012 9 - Itching Date Reviewed: 12/30/2017 Reviewed by: Diana ([facility]) Hayde - Fully Assessed Reason for Visit: New Patient [172] Primary Visit Diagnosis:Acute ischemic right MCA stroke ([facility]) [I63.511] Other Visit Diagnoses:Hemiparesis affecting left side as late effect of cerebrovascular accident ([facility]) [I69.354] Dissection of thoracic aorta ([facility]) [I71.01] Status post craniectomy [Z98.890] Muscle spasticity [M62.838] Essential hypertension [I10] Seizure ([facility]) [R56.9] Order(s):CONSULT TO REHABILITATION MED ADULT [917219] Order #: [id number]: 1 CONSULT - SPASTICITY EVAL [[id number]] Order #: [id number]: 1 Prescriptions as of 12/30/2017 Sig: BUSPIRONE 10 MG TABLET Take 10 mg by mouth twice miesha* ACCUNEB INHALATION Inhale 2.5 mg as instructed e* ALPRAZOLAM 0.5 MG TABLET 0.5 mg by PEG route three yue* BACLOFEN ORAL 10 mg by PEG Tube route three* FAMOTIDINE 20 MG TABLET 20 mg by PEG route once daily. FUROSEMIDE 20 MG TABLET 20 mg by PEG route once daily. LACOSAMIDE 200 MG TABLET 200 mg by PEG route twice miesha* METOPROLOL TARTRATE 50 MG TAB* 50 mg by PEG route twice aparna* OXYCODONE 5 MG TABLET Take 5 mg by mouth every 6 ho* ACETAMINOPHEN 650 MG/20.3 ML * 15.62-31.23 mL by NASOGASTRIC* Patient taking differently: 500-1,000 mg by PEG route sunita* NYSTATIN 100,000 UNITS/ML ORA* Take 5 mL by mouth four times* IPRATROPIUM-ALBUTEROL 0.5 MG-* Inhale 3 mL as instructed sunita* Patient taking differently: Inhale 3 mL as instructed fou* METOPROLOL TARTRATE 25 MG TAB* Take 3 tablets by mouth every* AMLODIPINE 10 MG TABLET Take 1 tablet by mouth once d* Patient taking differently: 5 mg by PEG route once daily.* CHLORHEXIDINE GLUCONATE 0.12 * Take 15 mL by mouth every 6 h* BUDESONIDE 1 MG/2 ML SUSPENSI* Use 2 mL via nebulizer twice * Patient taking differently: Use 1 mg via nebulizer once d* HEPARIN (PORCINE) 5,000 UNIT/* Inject 1 mL subcutaneously ev* Patient taking differently: Inject 5,000 Units subcutaneo* DEXTROSE 50 % IN WATER (D50W)* Inject 25 mL intravenously as* BISACODYL 10 MG RECTAL SUPPOS* 1 Suppository by RECTAL route* FUROSEMIDE 20 MG/2 ML INJ Inject 2 mL intravenously onc* THERAPEUTIC MULTIVITAMIN TABL* Take 1 tablet by mouth once d* Patient taking differently: 1 tablet by PEG route once da* ASPIRIN 81 MG CHEWABLE TABLET Take 1 tablet by mouth once d* Patient taking differently: 81 mg by PEG route once daily* POTASSIUM CHLORIDE 20 MEQ ORA* 40-120 mEq by ORAL/FEEDING TU* Patient taking differently: 40 mEq by ORAL/FEEDING TUBE r* ZINC OXIDE-COD LIVER OIL 40 %* Apply 1 application to affect* PANTOPRAZOLE ORAL LIQUID 40 M* 10 mL by ORAL/FEEDING TUBE ro* LACOSAMIDE ORAL SOLUTION 100 * Take 20 mL by mouth every 12 * QUETIAPINE 50 MG TABLET 50 mg by PEG route daily at b* SENNOSIDES 8.6 MG-DOCUSATE SO* Take 1 tablet by mouth twice * More... Problem List As Of Date 12/30/2017 Noted Resolved Essential hypertension [I10] INVALID FOR* Priority: C More... 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 Aortic dissection (HCC) [I71.00] INVALID FOR*10/13/2017 Priority: A More... Pain, postoperative, acute [G89.18] INVALID FOR*10/21/2017 Priority: D More... More... Coagulopathy (HCC) [D68.9] INVALID FOR*10/13/2017 Priority: H More... Acute blood loss anemia [D62] INVALID FOR*10/26/2017 Priority: F More... More... Lactic acid acidosis [E87.2] INVALID FOR*10/13/2017 Priority: F More... More... More... Cardiac insufficiency (HCC) [I50.9] INVALID FOR*10/21/2017 Priority: Mild More... Acute ischemic right MCA stroke (HCC) [I63.511] INVALID FOR* Priority: D More... Cerebral edema (HCC) [G93.6] INVALID FOR*10/21/2017 Priority: D More... Severe protein-calorie malnutrition (HCC) [E43] INVALID FOR* Priority: G More... Chronic respiratory failure (HCC) [J96.10] INVALID FOR* Priority: B More... Elevated LFTs [R79.89] INVALID FOR*11/01/2017 Priority: G More... Leukocytosis [D72.829] INVALID FOR* Priority: I More... 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 More... Seizure (HCC) [R56.9] INVALID FOR* Priority: E More... Hypernatremia [E87.0] INVALID FOR*11/01/2017 Priority: F More... Other instructions from your clinician: Regarding your visit with Dr. Stinson, Diana Lock, ENVELOPE SEALER and Nurse Norm Martino today at the [facility] we discussed the following: Impression: 1. R MCA CVA 2. s/p Craniectomy 3. L hemiplegia 4. L visual field deficit 5. Aortic dissection 6. Hypertension: Blood pressure goal < 130/80 Blood pressure today: BP 100/62 (BP Site: Left Arm, BP Position: Sitting, BP Cuff Size: Regular Adult) Pulse 63 Resp 17 Ht 182.9 cm (6') Wt 64.9 kg (143 lb) BMI 19.39 kg/m? 7. Hyperlipidemia: LDL goal < 70 Most recent LDL: LDL Cholesterol (mg/dL) Date Value 11/27/2017 54 Recommendations: 1. Consult Dr. Sharif for cranioplasty repair. 2. Consult PMAND R for rehabilitation strategies 3. Consult spasticity clinic for L side 4. Continue PT/OT and SERGER 5. Regular follow up with primary care doctor for health maintenance -Assist ensuring blood pressure and cholesterol are at goal -Screen and manage diabetes 6. Lifestyle modification -- Establish goals -Diet -Regular Exercise as discussed -Establish weight goals with primary care doctor 7. Additional stroke reduction measures and stroke warning signs are listed below. 8. Return to see Diana Lock CNP in 3-6 months 9. Please do not hesitate to call if you have any questions Sher Stinson, [facility] [address] [place] [address] / [place] [address] Office: [phone] ~~~~~~~~~~~~~~~~~~~~~~~~~~~~~~~~~~~~~~~~~~~~~~~~~~~~~~~~~~~~~~~~~~~~~~~~ Stroke Signs and Symptoms: *Stroke is a medical emergency. Know the warning signs of stroke: Sudden numbness or weakness of the face, arm or leg, especially on one side of the body Sudden confusion, trouble speaking, or understanding Sudden trouble seeing in one eye, or both eyes Sudden trouble walking, dizziness, loss of balance, or coordination Sudden severe headache with no known cause *If you, or someone with you, has one or more of these signs, don't delay! Immediately call 911, or the emergency medical services (EMS) number so an ambulance can be sent for you. Also, check the time so that you will know when the symptoms first appeared. It is very important to take immediate action, every second counts. Medical treatment may be available if action is taken early enough. ~~~~~~~~~~~~~~~~~~~~~~~~~~~~~~~~~~~~~~~~~~~~~~~~~~~~~~~~~~~~~~~~~~~~~~~~ General Guidelines to Help Reduce Risk of Recurrent Stroke Blood Pressure Management: Blood Pressure reduction is recommended for both prevention of recurrent stroke and prevention of other vascular events in persons who have had an ischemic stroke or TIA and are beyond the first 24 hours. Several lifestyle modifications have been associated with BP reduction and are a reasonable part of a comprehensive antihypertensive therapy -These modifications include: - salt restriction - weight loss - consumption of a diet rich in fruits, vegetables, and low-fat dairy products - Regular aerobic physical activity - Limited alcohol consumption Goal: Prehypertension (systolic BP of 120-139 mm Hg or diastolic BP of 80-89 mm Hg): Perform annual BP screening and lifestyle modifications Hypertension: Combine medications with above lifestyle modifications to reach your goal blood pressure as defined above. Monitor your blood pressure at home regularly to ensure you are reaching your goals Cholesterol and Lipid Management - Statin therapy with intensive lipid-lowering effects is recommended to reduce risk of stroke and cardiovascular events among patients with ischemic stroke or TIA who have evidence of atherosclerosis Diet: - Reduced sodium and increased potassium intake; DASH- style diet rich in fruits and vegetables - Consider Mediterranean diet supplemented with nuts Smoking and Tobacco Use: - Strongly recommend smoking and tobacco use cessation to reduce risk of stroke. - Counseling, nicotine products, and oral smoking cessation medications are effective for helping smokers quit and can be provided if needed. Alcohol Consumption: - Heavy drinkers should eliminate or reduce their consumption of alcohol. - Persons who continue drinking the following may be reasonable: - less than or equal to 2 drinks/day for men - less than or equal to 1 drink/day for non women Exercise - If capable of engaging in physical activity, at least 40 minutes of moderate to vigorous intensity physical exercise, typically defined as vigorous activity sufficient to break a sweat or noticeably raise heart rate, 3-4 days a week (eg, walking briskly, using an exercise bicycle) may be considered to reduce the risk factors and comorbid conditions that increase the likelihood of recurrent stroke - If disability after ischemic stroke, supervision by a healthcare professional, such as a physical therapist or cardiac rehabilitation professional, at least on initiation of an exercise regimen, may be considered Adopted from the [place] [employer] Attack : A Guideline for Healthcare Professionals From the [place] [employer] Guidelines for the Prevention of Stroke in Patients With Stroke or Transient Ischemic - 2013 Encounter Status:Closed by SHER STINSON DO on 01/07/18 PROGRESS Observed: 12/25/2017 Status: COMPLETED Source: [place] 1:40 PM [facility] REPOSITORY HNO ID: [id number] Author: Ricky Groves (Herminio) Service: (none) Author Type: Registered Nurse Type: Progress Notes Filed: 12/25/2017 2:06 PM Note Text: PRIMARY CARE COORDINATION QUICK NOTE Provider Action/FYI [facility] Meena Valladares RN CM left a for status update, anticipated discharge plan. Patient identified by name and date . Germain García RN December 25, 2017 1:40 PM CNPTOUTREACH Observed: 12/25/2017 Status: COMPLETED Source: [place] 12:00 AM [facility] REPOSITORY Patient Outreach (FAMPWS) JOSE GUSTAFSON ([id number]) 1965 M [facility] Date Time Provider Department 12/25/17 RICKY FIORE) FAMPWS During your visit today, we recorded the following information about you: Germain García RN 12/25/2017 2:06 PM Signed PRIMARY CARE COORDINATION QUICK NOTE Provider Action/FYI [facility] Meena Valladares RN CM left a for status update, anticipated discharge plan. Patient identified by name and date . Germain García RN December 25, 2017 1:40 PM Zaid Hale MA 01/08/2018 10:09 AM Signed Patient is at [facility]. Spoke with Natasha his nurse. Patient is doing well. He is on a regular diet with thin liquids. Jose is unable to walk. He scheduled for Cranioplasty for Skull Defect on 01-17-18, he will same day admit. Zaid Hale MA Allergies As of Date: 12/25/2017 Noted Allergy Reaction CATS 09/26/2009 GRASS POLLEN 12/08/2012 9 - Itching Date Reviewed: 11/23/2017 Reviewed by: Jim (Rn) HERMINIO Fenton - Fully Assessed Reason for Visit: [facility] Follow Up [8516] Cmt: [facility] F/u Prescriptions as of 12/25/2017 Sig: ACCUNEB INHALATION Inhale 2.5 mg as instructed e* ALPRAZOLAM 0.5 MG TABLET 0.5 mg by PEG route three yue* BACLOFEN ORAL 10 mg by PEG Tube route three* FAMOTIDINE 20 MG TABLET 20 mg by PEG route once daily. FUROSEMIDE 20 MG TABLET 20 mg by PEG route once daily. LACOSAMIDE 200 MG TABLET 200 mg by PEG route twice miesha* METOPROLOL TARTRATE 50 MG TAB* 50 mg by PEG route twice aparna* OXYCODONE 5 MG TABLET Take 5 mg by mouth every 6 ho* QUETIAPINE 50 MG TABLET 50 mg by PEG route daily at b* ACETAMINOPHEN 650 MG/20.3 ML * 15.62-31.23 mL by NASOGASTRIC* Patient taking differently: 500-1,000 mg by PEG route sunita* NYSTATIN 100,000 UNITS/ML ORA* Take 5 mL by mouth four times* IPRATROPIUM-ALBUTEROL 0.5 MG-* Inhale 3 mL as instructed sunita* Patient taking differently: Inhale 3 mL as instructed fou* METOPROLOL TARTRATE 25 MG TAB* Take 3 tablets by mouth every* AMLODIPINE 10 MG TABLET Take 1 tablet by mouth once d* Patient taking differently: 5 mg by PEG route once daily.* CHLORHEXIDINE GLUCONATE 0.12 * Take 15 mL by mouth every 6 h* BUDESONIDE 1 MG/2 ML SUSPENSI* Use 2 mL via nebulizer twice * Patient taking differently: Use 1 mg via nebulizer once d* HEPARIN (PORCINE) 5,000 UNIT/* Inject 1 mL subcutaneously ev* Patient taking differently: Inject 5,000 Units subcutaneo* DEXTROSE 50 % IN WATER (D50W)* Inject 25 mL intravenously as* SENNOSIDES 8.6 MG-DOCUSATE SO* Take 1 tablet by mouth twice * BISACODYL 10 MG RECTAL SUPPOS* 1 Suppository by RECTAL route* FUROSEMIDE 20 MG/2 ML INJ Inject 2 mL intravenously onc* THERAPEUTIC MULTIVITAMIN TABL* Take 1 tablet by mouth once d* Patient taking differently: 1 tablet by PEG route once da* ASPIRIN 81 MG CHEWABLE TABLET Take 1 tablet by mouth once d* Patient taking differently: 81 mg by PEG route once daily* POTASSIUM CHLORIDE 20 MEQ ORA* 40-120 mEq by ORAL/FEEDING TU* Patient taking differently: 40 mEq by ORAL/FEEDING TUBE r* ZINC OXIDE-COD LIVER OIL 40 %* Apply 1 application to affect* PANTOPRAZOLE ORAL LIQUID 40 M* 10 mL by ORAL/FEEDING TUBE ro* LACOSAMIDE ORAL SOLUTION 100 * Take 20 mL by mouth every 12 * More... Problem List As Of Date 12/25/2017 Noted Resolved Essential hypertension [I10] INVALID FOR* Priority: C More... 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 Aortic dissection (HCC) [I71.00] INVALID FOR*10/13/2017 Priority: A More... Pain, postoperative, acute [G89.18] INVALID FOR*10/21/2017 Priority: D More... More... Coagulopathy (HCC) [D68.9] INVALID FOR*10/13/2017 Priority: H More... Acute blood loss anemia [D62] INVALID FOR*10/26/2017 Priority: F More... More... Lactic acid acidosis [E87.2] INVALID FOR*10/13/2017 Priority: F More... More... More... Cardiac insufficiency (HCC) [I50.9] INVALID FOR*10/21/2017 Priority: Mild More... Acute ischemic right MCA stroke (HCC) [I63.511] INVALID FOR* Priority: D More... Cerebral edema (HCC) [G93.6] INVALID FOR*10/21/2017 Priority: D More... Severe protein-calorie malnutrition (HCC) [E43] INVALID FOR* Priority: G More... Chronic respiratory failure (HCC) [J96.10] INVALID FOR* Priority: B More... Elevated LFTs [R79.89] INVALID FOR*11/01/2017 Priority: G More... Leukocytosis [D72.829] INVALID FOR* Priority: I More... 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 More... Seizure (HCC) [R56.9] INVALID FOR* Priority: E More... Hypernatremia [E87.0] INVALID FOR*11/01/2017 Priority: F More... Encounter Status:Closed by GERMAIN GARCÍA on 12/25/17 PROGRESS Observed: 12/11/2017 Status: COMPLETED Source: [place] 4:36 PM [facility] [place] REPOSITORY HNO ID: [id number] Author: Ricky Groves (Rn) Service: (none) Author Type: Registered Nurse Type: Progress Notes Filed: 12/11/2017 4:43 PM Note Text: PRIMARY CARE COORDINATION FOLLOW-UP NOTE Provider Action/FYI Tct ESH left a vm for Meena Blaine [phone] RN CM requesting anticipated Los and verification of Plan at Discharge :SNF/ ECF/Home with Assist? Provided Care Coordinators phone number for f/u. Patient identified by name and date of . YES [employer] plan for next outreach: F/u with [facility]SH related to anticipated LOS/ D/C plan Signature Germain García RN December 11, 2017 PROGRESS Observed: 12/05/2017 Status: COMPLETED Source: [place] 6:09 PM [facility] [place] REPOSITORY HNO ID: [id number] Author: García M Germain (Rn) Service: (none) Author Type: Registered Nurse Type: Progress Notes Filed: 12/11/2017 4:43 PM Note Text: PRIMARY CARE COORDINATION QUICK NOTE Provider Action/FYI Received [facility] Team conference updates, provided to Pcp for review. Patient identified by name and date . Germain García RN December 05, 2017 6:10 PM CNPTOUTREACH Observed: 12/05/2017 Status: COMPLETED Source: [place] 12:00 AM [facility] REPOSITORY Patient Outreach (FAMPWS) JOSE GUSTAFSON ([id number]) 1965 [facility] Date Time Provider Department 12/05/17 [facility] RobertsRN) [facility] During your visit today, we recorded the following information about you: Germain García RN 12/11/2017 4:43 PM Signed PRIMARY CARE COORDINATION QUICK NOTE Provider Action/FYI Received [facility] Team conference updates, provided to Pcp for review. Patient identified by name and date . Germain García RN December 05, 2017 6:10 PM Germain García RN 12/11/2017 4:43 PM Signed PRIMARY CARE COORDINATION FOLLOW-UP NOTE Provider Action/FYI Tct [facility] left a for Meena Valladares [phone] HERMINIO MENDEZ requesting anticipated Los and verification of Plan at Discharge :SNF/ ECF/Home with Assist? Provided Care Coordinators phone number for f/u. Patient identified by name and date of . YES [employer] plan for next outreach: F/u with [facility] related to anticipated LOS/ D/C plan Signature Germain García RN December 11, 2017 Allergies As of Date: 12/05/2017 Noted Allergy Reaction CATS 09/26/2009 GRASS POLLEN 12/08/2012 9 - Itching Date Reviewed: 11/23/2017 Reviewed by: Jim (Rn) HERMINIO Fenton - Fully Assessed Reason for Visit: [facility] [0617] Cmt: [facility] Team Conference Update Prescriptions as of 12/05/2017 Sig: ACCUNEB INHALATION Inhale 2.5 mg as instructed e* ALPRAZOLAM 0.5 MG TABLET 0.5 mg by PEG route three yue* BACLOFEN ORAL 5 mg by PEG Tube route three * FAMOTIDINE 20 MG TABLET 20 mg by PEG route once daily. FUROSEMIDE 20 MG TABLET 20 mg by PEG route once daily. LACOSAMIDE 200 MG TABLET 200 mg by PEG route twice miesha* METOPROLOL TARTRATE 50 MG TAB* 50 mg by PEG route twice aparna* OXYCODONE 5 MG TABLET Take 5 mg by mouth every 6 ho* QUETIAPINE 50 MG TABLET 50 mg by PEG route daily at b* ACETAMINOPHEN 650 MG/20.3 ML * 15.62-31.23 mL by NASOGASTRIC* Patient taking differently: 500-1,000 mg by PEG route sunita* NYSTATIN 100,000 UNITS/ML ORA* Take 5 mL by mouth four times* IPRATROPIUM-ALBUTEROL 0.5 MG-* Inhale 3 mL as instructed sunita* Patient taking differently: Inhale 3 mL as instructed fou* METOPROLOL TARTRATE 25 MG TAB* Take 3 tablets by mouth every* AMLODIPINE 10 MG TABLET Take 1 tablet by mouth once d* Patient taking differently: 10 mg by PEG route once daily* CHLORHEXIDINE GLUCONATE 0.12 * Take 15 mL by mouth every 6 h* BUDESONIDE 1 MG/2 ML SUSPENSI* Use 2 mL via nebulizer twice * Patient taking differently: Use 1 mg via nebulizer once d* HEPARIN (PORCINE) 5,000 UNIT/* Inject 1 mL subcutaneously ev* Patient taking differently: Inject 5,000 Units subcutaneo* DEXTROSE 50 % IN WATER (D50W)* Inject 25 mL intravenously as* SENNOSIDES 8.6 MG-DOCUSATE SO* Take 1 tablet by mouth twice * BISACODYL 10 MG RECTAL SUPPOS* 1 Suppository by RECTAL route* FUROSEMIDE 20 MG/2 ML INJ Inject 2 mL intravenously onc* THERAPEUTIC MULTIVITAMIN TABL* Take 1 tablet by mouth once d* Patient taking differently: 1 tablet by PEG route once da* ASPIRIN 81 MG CHEWABLE TABLET Take 1 tablet by mouth once d* Patient taking differently: 81 mg by PEG route once daily* POTASSIUM CHLORIDE 20 MEQ ORA* 40-120 mEq by ORAL/FEEDING TU* Patient taking differently: 40 mEq by ORAL/FEEDING TUBE r* ZINC OXIDE-COD LIVER OIL 40 %* Apply 1 application to affect* PANTOPRAZOLE ORAL LIQUID 40 M* 10 mL by ORAL/FEEDING TUBE ro* LACOSAMIDE ORAL SOLUTION 100 * Take 20 mL by mouth every 12 * More... Problem List As Of Date 12/05/2017 Noted Resolved Essential hypertension [I10] INVALID FOR* Priority: C More... 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 Aortic dissection (HCC) [I71.00] INVALID FOR*10/13/2017 Priority: A More... Pain, postoperative, acute [G89.18] INVALID FOR*10/21/2017 Priority: D More... More... Coagulopathy (HCC) [D68.9] INVALID FOR*10/13/2017 Priority: H More... Acute blood loss anemia [D62] INVALID FOR*10/26/2017 Priority: F More... More... Lactic acid acidosis [E87.2] INVALID FOR*10/13/2017 Priority: F More... More... More... Cardiac insufficiency (HCC) [I50.9] INVALID FOR*10/21/2017 Priority: Mild More... Acute ischemic right MCA stroke (HCC) [I63.511] INVALID FOR* Priority: D More... Cerebral edema (HCC) [G93.6] INVALID FOR*10/21/2017 Priority: D More... Severe protein-calorie malnutrition (HCC) [E43] INVALID FOR* Priority: G More... Chronic respiratory failure (HCC) [J96.10] INVALID FOR* Priority: B More... Elevated LFTs [R79.89] INVALID FOR*11/01/2017 Priority: G More... Leukocytosis [D72.829] INVALID FOR* Priority: I More... 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 More... Seizure (HCC) [R56.9] INVALID FOR* Priority: E More... Hypernatremia [E87.0] INVALID FOR*11/01/2017 Priority: F More... Encounter Status:Closed by GERMAIN GARCÍA on 12/11/17 URINALYSIS WITH Collected: 12/04/2017 Status: F Source: [place] MICROSCOPIC 5:50 PM [facility] REPOSITORY TYPE CODE TESTS RESULT OUT OF RANGE REFERENCE UNITS LAB UCOL Yellow Color Abnormal Red Alert LAB [facility] Clear Clarity Abnormal Cloudy Alert LAB UGLUC Negative mg/dL Glucose, Urine Negative LAB UBIL Negative Bilirubin, Urine Negative LAB UKET Negative Ketones, Urine Negative LAB USPG 1.005-1.030 Specific [place], Ur 1.020 LAB UHGB Negative Abnormal Hemoglobin/Blood, 3+ Alert Ur LAB UPH 4.5-8.0 pH 7.0 LAB UPROT Negative mg/dL Protein, Abnormal Urine >=300 Alert LAB UUROB Normal Urobilinogen Normal LAB UNITR Negative Nitrites Negative LAB ULKEST Negative Leukest Abnormal Trace Alert LAB UMCOM Urine Will Comment SEE COMMENT Result Comment: Questionable Urine Chemistry Results Dipstick done on supernatant Microscopic Performed on Unspun Specimen LAB UWBC 0-5 /HPF WBC 0-5 LAB URBC 0-3 /HPF Abnormal Alert RBC >25 LAB UCAST 0 /LPF Cast SEE COMMENT Result Comment: 0 LAB UEPI /HPF Epithelial SEE Cells COMMENT Result Comment: Few Squamous Epithelial Cells Performed By: #### UAWMIC #### [facility] [address] [place] [id number] Observed: 12/04/2017 Status: F Source: [place] URINE CULTURE 5:50 PM [facility] REPOSITORY Sp. Request/Comment: - Specimen received in preservative Culture Result - 50,000 - <100,000 CFU/ml Enterococcus faecalis --> ABNORMAL ALERT Cephalosporins, clindamycin, and TMP-SMX are not effective for the treatment of enterococcal infections. --> ABNORMAL ALERT ORGANISM: Enterococcus faecalis METHOD: Minimum inhibitory concentration (VIZION) Antibiotic Interp WILL Status Linezolid SUSCEPTIBLE 2 F Daptomycin SUSCEPTIBLE 1 F Ampicillin SUSCEPTIBLE 2 F Nitrofurantoin SUSCEPTIBLE <=32 F Vancomycin RESISTANT >16 F Performed By: #### URCUL #### [facility] [address] [place], [place] [address] PROGRESS Observed: 12/03/2017 Status: COMPLETED Source: [place] 4:54 PM [facility] REPOSITORY HNO ID: [id number] Author: (Herminio)Ricky Service: (none) Author Type: Registered Nurse Type: Progress Notes Filed: 12/03/2017 5:12 PM Note Text: PRIMARY CARE COORDINATION QUICK NOTE Provider Action/FYI Tct Scott Valladares RN left verify Los anticipated AND plan, provided [employer] contact phone number. Patient identified by name and date . Germain García RN December 03, 2017 4:54 PM CNPTOUTREACH Observed: 12/03/2017 Status: COMPLETED Source: [place] 12:00 AM [facility] REPOSITORY Patient Outreach (FAMPWS) JOSE GUSTAFSON ([id number]) 1965 [facility] Date Time Provider Department 12/03/17 RICKY GROVES (RN) FAMPWS During your visit today, we recorded the following information about you: (Herminio)Ricky 12/03/2017 5:12 PM Signed PRIMARY CARE COORDINATION QUICK NOTE Provider Action/FYI Tct Scott Valladares RN left verify Los anticipated AND plan, provided [employer] contact phone number. Patient identified by name and date . Germain García RN December 03, 2017 4:54 PM Allergies As of Date: 12/03/2017 Noted Allergy Reaction CATS 09/26/2009 GRASS POLLEN 12/08/2012 9 - Itching Date Reviewed: 11/23/2017 Reviewed by: Jim Fenton (Rn), RN - Fully Assessed Prescriptions as of 12/03/2017 Sig: ACCUNEB INHALATION Inhale 2.5 mg as instructed e* ALPRAZOLAM 0.5 MG TABLET 0.5 mg by PEG route three yue* BACLOFEN ORAL 5 mg by PEG Tube route three * FAMOTIDINE 20 MG TABLET 20 mg by PEG route once daily. FUROSEMIDE 20 MG TABLET 20 mg by PEG route once daily. LACOSAMIDE 200 MG TABLET 200 mg by PEG route twice miesha* METOPROLOL TARTRATE 50 MG TAB* 50 mg by PEG route twice aparna* OXYCODONE 5 MG TABLET Take 5 mg by mouth every 6 ho* QUETIAPINE 50 MG TABLET 50 mg by PEG route daily at b* ACETAMINOPHEN 650 MG/20.3 ML * 15.62-31.23 mL by NASOGASTRIC* Patient taking differently: 500-1,000 mg by PEG route sunita* NYSTATIN 100,000 UNITS/ML ORA* Take 5 mL by mouth four times* IPRATROPIUM-ALBUTEROL 0.5 MG-* Inhale 3 mL as instructed sunita* Patient taking differently: Inhale 3 mL as instructed fou* METOPROLOL TARTRATE 25 MG TAB* Take 3 tablets by mouth every* AMLODIPINE 10 MG TABLET Take 1 tablet by mouth once d* Patient taking differently: 10 mg by PEG route once daily* CHLORHEXIDINE GLUCONATE 0.12 * Take 15 mL by mouth every 6 h* BUDESONIDE 1 MG/2 ML SUSPENSI* Use 2 mL via nebulizer twice * Patient taking differently: Use 1 mg via nebulizer once d* HEPARIN (PORCINE) 5,000 UNIT/* Inject 1 mL subcutaneously ev* Patient taking differently: Inject 5,000 Units subcutaneo* DEXTROSE 50 % IN WATER (D50W)* Inject 25 mL intravenously as* SENNOSIDES 8.6 MG-DOCUSATE SO* Take 1 tablet by mouth twice * BISACODYL 10 MG RECTAL SUPPOS* 1 Suppository by RECTAL route* FUROSEMIDE 20 MG/2 ML INJ Inject 2 mL intravenously onc* THERAPEUTIC MULTIVITAMIN TABL* Take 1 tablet by mouth once d* Patient taking differently: 1 tablet by PEG route once da* ASPIRIN 81 MG CHEWABLE TABLET Take 1 tablet by mouth once d* Patient taking differently: 81 mg by PEG route once daily* POTASSIUM CHLORIDE 20 MEQ ORA* 40-120 mEq by ORAL/FEEDING TU* Patient taking differently: 40 mEq by ORAL/FEEDING TUBE r* ZINC OXIDE-COD LIVER OIL 40 %* Apply 1 application to affect* PANTOPRAZOLE ORAL LIQUID 40 M* 10 mL by ORAL/FEEDING TUBE ro* LACOSAMIDE ORAL SOLUTION 100 * Take 20 mL by mouth every 12 * More... Problem List As Of Date 12/03/2017 Noted Resolved Essential hypertension [I10] INVALID FOR* Priority: C More... 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 Aortic dissection (HCC) [I71.00] INVALID FOR*10/13/2017 Priority: A More... Pain, postoperative, acute [G89.18] INVALID FOR*10/21/2017 Priority: D More... More... Coagulopathy (HCC) [D68.9] INVALID FOR*10/13/2017 Priority: H More... Acute blood loss anemia [D62] INVALID FOR*10/26/2017 Priority: F More... More... Lactic acid acidosis [E87.2] INVALID FOR*10/13/2017 Priority: F More... More... More... Cardiac insufficiency (HCC) [I50.9] INVALID FOR*10/21/2017 Priority: Mild More... Acute ischemic right MCA stroke (HCC) [I63.511] INVALID FOR* Priority: D More... Cerebral edema (HCC) [G93.6] INVALID FOR*10/21/2017 Priority: D More... Severe protein-calorie malnutrition (HCC) [E43] INVALID FOR* Priority: G More... Chronic respiratory failure (HCC) [J96.10] INVALID FOR* Priority: B More... Elevated LFTs [R79.89] INVALID FOR*11/01/2017 Priority: G More... Leukocytosis [D72.829] INVALID FOR* Priority: I More... 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 More... Seizure (HCC) [R56.9] INVALID FOR* Priority: E More... Hypernatremia [E87.0] INVALID FOR*11/01/2017 Priority: F More... Encounter Status:Closed by GERMAIN GARCÍA on 12/03/17 CBC AND DIFFERENTIAL Collected: 12/02/2017 Status: F Source: [place] 5:06 AM [facility] REPOSITORY TYPE CODE TESTS RESULT OUT OF REFERENCE UNITS RANGE LAB WBC 3.70-11.00 k/uL WBC 6.60 LAB RBC 4.20-6.00 m/uL Low RBC 3.76 LAB HGB 13.0-17.0 g/dL Low Hemoglobin 11.9 LAB HCT 39.0-51.0 % Low Hematocrit 37.3 LAB MCV 80.0-100.0 fL MCV 99.2 LAB MCH 26.0-34.0 pG MCH 31.6 LAB MCHC 30.5-36.0 g/dL MCHC 31.9 LAB RDWCV 11.5-15.0 % RDW-CV 14.6 LAB PLTCT 150-400 k/uL Platelet Count 282 LAB MPV 9.0-12.7 fL MPV 9.9 LAB ANEUT % Neut% 70.8 LAB AANEUT 1.45-7.50 k/uL Abs Neut 4.67 LAB ALYMP % Lymph% 19.5 LAB AALYMP 1.00-4.00 k/uL Abs Lymph 1.29 LAB AMONO % [place]% 5.3 LAB AAMONO <0.87 k/uL Abs [place] 0.35 LAB AEOS % Eosin% 3.5 LAB AAEOS <0.46 k/uL Abs Eosin 0.23 LAB ABASO % Baso% 0.9 LAB AABASO <0.11 k/uL Abs Baso 0.06 LAB AUNRBC 0 /100 WBC NRBCs 0.0 LAB ABNRBC <0.01 k/uL Absolute nRBC <0.01 LAB DTYP DTYPE Auto Diff Performed By: #### CBCDIF, BMP #### [facility] [address] [place], [place] [address] BASIC METABOLIC PANL Collected: 12/02/2017 Status: F Source: [place] 5:06 AM [facility] REPOSITORY TYPE CODE TESTS RESULT OUT OF REFERENCE UNITS RANGE LAB GLU 74-99 mg/dL High Glucose 105 Result Comment: The [place] Diabetes Association (ADA) provides guidance for cutoff values for fasting glucose and random glucose. The ADA defines fasting as no caloric intake for at least 8 hours. Fas ting plasma glucose results between 100 to 125 mg/dL indicate increased risk for diabetes (prediabetes). Fasting plasma glucose results greater than or equal to 126 mg/dL meet the criteria for diagnosis of diabetes. In the absence of unequivocal hyperglycemia, results should be confirmed by repeat testing. In a patient with classic symptoms of hyperglycemia or hyperglycemic crisis, random plasma glucose results greater than or equal to 200 mg/dL meet the criteria for diagnosis of diabetes. Reference: Standards of Medical Care in Diabetes 2016, [place] [employer]. Diabetes Care. 2016.39(Suppl 1). LAB BUN 9-24 mg/dL BUN 19 LAB CRET 0.73-1.22 mg/dL Creatinine Low 0.59 LAB NA 136-144 mmol/L Sodium 137 LAB K 3.7-5.1 mmol/L Potassium 4.2 Result Comment: Results may be falsely increased due to interference by hemolysis. Suggest reorder as clinically indicated. LAB CL 97-105 mmol/L Chloride 97 LAB CO2 22-30 mmol/L CO2 27 LAB AGAP 9-18 mmol/L Anion Gap 13 LAB CA 8.5-10.2 mg/dL Calcium, Total 9.2 LAB GFRAA eGFR- Amer. >60 LAB GFRNAA . eGFR-All Other Races >60 Result Comment: eGFR (Estimated GFR) Units of measure: mL/min/1.73 meters squared eGFR is derived from the reexpressed MDRD Study equation using the following parameters: serum creatinine, age, gender and race. The creatinine assay has been calibrated to be traceable to IDMS. An eGFR <60 mL/min/1.73m2 for >3 months is consistent with chronic kidney disease. Refer to KDOQI guidelines for clinical interpretation. In patients with unstable renal function, e.g. those with acute kidney injury, the eGFR may not accurately reflect actual GFR. Performed By: #### CBCDIF, BMP #### [facility] [address] [place], [place] [address] PROGRESS Observed: 11/29/2017 Status: COMPLETED Source: [place] 12:14 PM [facility] [place] REPOSITORY HNO ID: [id number] Author: (Herminio)Ricky Service: (none) Author Type: Registered Nurse Type: Progress Notes Filed: 11/29/2017 3:07 PM Note Text: PRIMARY CARE COORDINATION QUICK NOTE Provider Action/FYI Tct Scott Valladares RN [facility] verify [place] anticipated AND plan, provided [employer] contact phone number. Patient identified by name and date . Germain García RN November 29, 2017 12:16 PM CNPTOUTREACH Observed: 11/29/2017 Status: COMPLETED Source: [place] 12:00 AM [facility] REPOSITORY Patient Outreach (FAMPWS) JOSE GUSTAFSON ([id number]) 1965 [facility] Date Time Provider Department 11/29/17 [facility]ES (RN) [facility] During your visit today, we recorded the following information about you: (Rn)Ricky 11/29/2017 3:07 PM Signed PRIMARY CARE COORDINATION QUICK NOTE Provider Action/FYI Tct Scott Valladares RN [facility] verify [place] anticipated AND plan, provided [employer] contact phone number. Patient identified by name and date . Germain García RN November 29, 2017 12:16 PM Allergies As of Date: 11/29/2017 Noted Allergy Reaction CATS 09/26/2009 GRASS POLLEN 12/08/2012 9 - Itching Date Reviewed: 11/23/2017 Reviewed by: Jim Fenton (Rn), RN - Fully Assessed Reason for Visit: [facility] [1719] [facility]: [facility] Update Reason For Visit History Recorded More... Problem List As Of Date 11/29/2017 Noted Resolved Essential hypertension [I10] INVALID FOR* Priority: C More... 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 Aortic dissection (HCC) [I71.00] INVALID FOR*10/13/2017 Priority: A More... Pain, postoperative, acute [G89.18] INVALID FOR*10/21/2017 Priority: D More... More... Coagulopathy (HCC) [D68.9] INVALID FOR*10/13/2017 Priority: H More... Acute blood loss anemia [D62] INVALID FOR*10/26/2017 Priority: F More... More... Lactic acid acidosis [E87.2] INVALID FOR*10/13/2017 Priority: F More... More... More... Cardiac insufficiency (HCC) [I50.9] INVALID FOR*10/21/2017 Priority: Mild More... Acute ischemic right MCA stroke (HCC) [I63.511] INVALID FOR* Priority: D More... Cerebral edema (HCC) [G93.6] INVALID FOR*10/21/2017 Priority: D More... Severe protein-calorie malnutrition (HCC) [E43] INVALID FOR* Priority: G More... Chronic respiratory failure (HCC) [J96.10] INVALID FOR* Priority: B More... Elevated LFTs [R79.89] INVALID FOR*11/01/2017 Priority: G More... Leukocytosis [D72.829] INVALID FOR* Priority: I More... 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 More... Seizure (HCC) [R56.9] INVALID FOR* Priority: E More... Hypernatremia [E87.0] INVALID FOR*11/01/2017 Priority: F More... Encounter Status:Closed by GERMAIN GARCÍA on 11/29/17 BASIC METABOLIC PANL Collected: 11/27/2017 Status: F Source: [place] 5:00 AM [facility] [place] REPOSITORY TYPE CODE TESTS RESULT OUT OF REFERENCE UNITS RANGE LAB GLU 74-99 mg/dL Low Glucose 71 Result Comment: The [place] Diabetes Association (ADA) provides guidance for cutoff values for fasting glucose and random glucose. The ADA defines fasting as no caloric intake for at least 8 hours. Fas ting plasma glucose results between 100 to 125 mg/dL indicate increased risk for diabetes (prediabetes). Fasting plasma glucose results greater than or equal to 126 mg/dL meet the criteria for diagnosis of diabetes. In the absence of unequivocal hyperglycemia, results should be confirmed by repeat testing. In a patient with classic symptoms of hyperglycemia or hyperglycemic crisis, random plasma glucose results greater than or equal to 200 mg/dL meet the criteria for diagnosis of diabetes. Reference: Standards of Medical Care in Diabetes 2016, [place] [employer]. Diabetes Care. 2016.39(Suppl 1). LAB BUN 9-24 mg/dL BUN 17 LAB CRET 0.73-1.22 mg/dL Creatinine Low 0.68 LAB NA 136-144 mmol/L Sodium 140 LAB K 3.7-5.1 mmol/L Potassium 4.1 LAB CL 97-105 mmol/L Chloride 97 LAB CO2 22-30 mmol/L CO2 26 LAB AGAP 9-18 mmol/L Anion Gap 17 LAB CA 8.5-10.2 mg/dL Calcium, Total 9.4 LAB GFRAA eGFR- Amer. >60 LAB GFRNAA . eGFR-All Other Races >60 Result Comment: eGFR (Estimated GFR) Units of measure: mL/min/1.73 meters squared eGFR is derived from the reexpressed MDRD Study equation using the following parameters: serum creatinine, age, gender and race. The creatinine assay has been calibrated to be traceable to IDMS. An eGFR <60 mL/min/1.73m2 for >3 months is consistent with chronic kidney disease. Refer to KDOQI guidelines for clinical interpretation. In patients with unstable renal function, e.g. those with acute kidney injury, the eGFR may not accurately reflect actual GFR. Performed By: #### BMP, HFP, LIPB, TSH #### [facility] [address] [place], [place] [address] HEPATIC FUNCTN PANEL Collected: 11/27/2017 Status: F Source: [place] 5:00 AM [facility] REPOSITORY TYPE CODE TESTS RESULT OUT OF REFERENCE UNITS RANGE LAB ALB 3.9-4.9 g/dL Albumin 3.9 LAB TBIL 0.2-1.3 mg/dL Bilirubin, Total 0.7 LAB CBIL <0.2 mg/dL High Bilirubin,Conjuga 0.2 sylvia LAB ALKP 36-108 U/L Alkaline Phosphatase 101 LAB AST 14-40 U/L AST 31 LAB ALT 10-54 U/L ALT 46 LAB TP 6.3-8.0 g/dL Protein, Total 7.1 Performed By: #### BMP, HFP, LIPB, TSH #### [facility] [address] [place] [id number] LIPID PANEL, BASIC Collected: 11/27/2017 Status: F Source: [place] 5:00 AM [facility] REPOSITORY TYPE CODE TESTS RESULT OUT OF REFERENCE UNITS RANGE LAB CHOL <200 mg/dL Cholesterol 112 Result Comment: <200 mg/dL, Desirable 200-239 mg/dL, Borderline high >239 mg/dL, High LAB TRIGLY <150 mg/dL Triglyceride 129 Result Comment: <150 mg/dL, Normal 150-199 mg/dL, Borderline high 200-499 mg/dL, High >499 mg/dL, Very high LAB HDL >39 mg/dL HDL-Cholesterol Low 32 Result Comment: 40-59 mg/dL, Acceptable >59 mg/dL, High: Negative risk factor for coronary heart disease <40 mg/dL, Low: Positive risk factor for coronary heart disease LAB LDL <100 mg/dL LDL-Cholesterol 54 Result Comment: <100 mg/dL, Optimal 100-129 mg/dL, Near optimal/above optimal 130-159 mg/dL, Borderline high 160-189 mg/dL, High >189 mg/dL, Very high Secondary prevention optimal LDL Cholesterol levels are recommended to be < 70 mg/dL LAB NONHDL <130 mg/dL Non HDL Cholesterol 80 Result Comment: <130 mg/dL, Optimal 130-159 mg/dL, Near optimal/above optimal 160-189 mg/dL, Borderline high 190-219 mg/dL, High >219 mg/dL, Very high Secondary prevention optimal non HDL Cholesterol levels are recommended to be < 100 mg/dL LAB FT hrs Fasting Time 6 LAB VLDL <30 mg/dL VLDL Cholesterol 26 LAB TCHDL <5.10 TC:HDL Ratio 3.50 LAB LDLHDL <2.54 LDL:HDL Ratio 1.69 Result Comment: Reference: 1. National Cholesterol Education Program ATP III Guideline At-A-Glance Quick Desk Reference: National Heart, Lung, and Blood Supply. National Institutes of Health. 2001: NIH Publication No. 01-3305. 2. An International Atherosclerosis Society position paper: global recommendations for the management of dyslipidemia: executive summary, Atherosclerosis. 2014: 232(2):410-413. Performed By: #### BMP, HFP, LIPB, TSH #### [facility] [address] [place], [place] [address] TSH Collected: 11/27/2017 Status: F Source: [place] 5:00 AM [facility] REPOSITORY TYPE CODE TESTS RESULT OUT OF RANGE REFERENCE UNITS LAB TSH 0.400-5.500 uU/mL TSH 4.920 Performed By: #### BMP, HFP, LIPB, TSH #### [facility] [address] [place], [place] [address] PROGRESS Observed: 11/26/2017 Status: COMPLETED Source: [place] 3:20 PM [facility] REPOSITORY HNO ID: [id number] Author: Ricky RobertsRn) Service: (none) Author Type: Registered Nurse Type: Progress Notes Filed: 11/26/2017 3:32 PM Note Text: PRIMARY CARE COORDINATION QUICK NOTE Provider Action/FYI Call from Rocío Castillo left a vm noting Pt was discharged from [facility] to [facility] rehab on 11/22/17. Patient identified by name and date . Germain García RN November 26, 2017 3:20 PM PROGRESS Observed: 11/26/2017 Status: COMPLETED Source: [place] 1:23 PM [facility] REPOSITORY HNO ID: [id number] Author: Ricky Fiore) Service: (none) Author Type: Registered Nurse Type: Progress Notes Filed: 11/26/2017 2:12 PM Note Text: PRIMARY CARE COORDINATION QUICK NOTE Provider Action/FYI Chart review: [facility] ED 11/23/17 Dx LLL Pneumonia. The patient will be discharged back to [facility]. Tct Rocío DAVIS left a vm for Anna Dobbins RN CM to verify D/C date, status, CM contact info at [facility]. Tct [facility] [phone], spk with Elza Deleon covering CM, noted Pt was Adm [facility] 11/22/17, Pt's Lumber Cutter is Meena Valladares RN [phone], left vm for CM with PCC contact info. Patient identified by name and date . Germain García RN November 26, 2017 1:24 PM CNPTOBREA Observed: 11/26/2017 Status: COMPLETED Source: [place] 12:00 AM [facility] REPOSITORY Patient Outreach (FAMPWS) JOSE GUSTAFSON ([id number]) 1965 M [facility] Date Time Provider Department 11/26/17 RICKY FIORE) FAMBrittaniWS During your visit today, we recorded the following information about you: Germain García RN 11/26/2017 2:12 PM Signed PRIMARY CARE COORDINATION QUICK NOTE Provider Action/FYI Chart review: [facility] ED 11/23/17 Dx LLL Pneumonia. The patient will be discharged back to [facility]. Tct [facility] left a vm for Anna Dobbins RN, CM to verify D/C date, status, CM contact info at [facility]. Tct [facility] [phone], spk with Elza Deleon covering CM, noted Pt was Adm [facility] 11/22/17, Pt's Lumber Cutter is Meena Valladares RN [phone], left vm for CM with PCC contact info. Patient identified by name and date . Germain García RN November 26, 2017 1:24 PM Germain García RN 11/26/2017 3:32 PM Signed PRIMARY CARE COORDINATION QUICK NOTE Provider Action/FYI Call from Rocío Castillo left a vm noting Pt was discharged from [facility] to [facility] rehab on 11/22/17. Patient identified by name and date . Germain García RN November 26, 2017 3:20 PM Allergies As of Date: 11/26/2017 Noted Allergy Reaction CATS 09/26/2009 GRASS POLLEN 12/08/2012 9 - Itching Date Reviewed: 11/23/2017 Reviewed by: Jim (Rn) HERMINIO Fenton - Fully Assessed Reason for Visit: [facility] Follow Up [4289] Cmt: [facility] ED 11/23/17 Dx LLL Pneumonia Prescriptions as of 11/26/2017 Sig: ACCUNEB INHALATION Inhale 2.5 mg as instructed e* ALPRAZOLAM 0.5 MG TABLET 0.5 mg by PEG route three yue* BACLOFEN ORAL 5 mg by PEG Tube route three * FAMOTIDINE 20 MG TABLET 20 mg by PEG route once daily. FUROSEMIDE 20 MG TABLET 20 mg by PEG route once daily. LACOSAMIDE 200 MG TABLET 200 mg by PEG route twice miesha* METOPROLOL TARTRATE 50 MG TAB* 50 mg by PEG route twice aparna* OXYCODONE 5 MG TABLET Take 5 mg by mouth every 6 ho* QUETIAPINE 50 MG TABLET 50 mg by PEG route daily at b* LEVOFLOXACIN 750 MG TABLET Take 1 tablet by mouth once d* ACETAMINOPHEN 650 MG/20.3 ML * 15.62-31.23 mL by NASOGASTRIC* Patient taking differently: 500-1,000 mg by PEG route sunita* NYSTATIN 100,000 UNITS/ML ORA* Take 5 mL by mouth four times* IPRATROPIUM-ALBUTEROL 0.5 MG-* Inhale 3 mL as instructed sunita* Patient taking differently: Inhale 3 mL as instructed fou* METOPROLOL TARTRATE 25 MG TAB* Take 3 tablets by mouth every* AMLODIPINE 10 MG TABLET Take 1 tablet by mouth once d* Patient taking differently: 10 mg by PEG route once daily* CHLORHEXIDINE GLUCONATE 0.12 * Take 15 mL by mouth every 6 h* BUDESONIDE 1 MG/2 ML SUSPENSI* Use 2 mL via nebulizer twice * Patient taking differently: Use 1 mg via nebulizer once d* HEPARIN (PORCINE) 5,000 UNIT/* Inject 1 mL subcutaneously ev* Patient taking differently: Inject 5,000 Units subcutaneo* DEXTROSE 50 % IN WATER (D50W)* Inject 25 mL intravenously as* SENNOSIDES 8.6 MG-DOCUSATE SO* Take 1 tablet by mouth twice * BISACODYL 10 MG RECTAL SUPPOS* 1 Suppository by RECTAL route* FUROSEMIDE 20 MG/2 ML INJ Inject 2 mL intravenously onc* THERAPEUTIC MULTIVITAMIN TABL* Take 1 tablet by mouth once d* Patient taking differently: 1 tablet by PEG route once da* ASPIRIN 81 MG CHEWABLE TABLET Take 1 tablet by mouth once d* Patient taking differently: 81 mg by PEG route once daily* POTASSIUM CHLORIDE 20 MEQ ORA* 40-120 mEq by ORAL/FEEDING TU* Patient taking differently: 40 mEq by ORAL/FEEDING TUBE r* ZINC OXIDE-COD LIVER OIL 40 %* Apply 1 application to affect* PANTOPRAZOLE ORAL LIQUID 40 M* 10 mL by ORAL/FEEDING TUBE ro* LACOSAMIDE ORAL SOLUTION 100 * Take 20 mL by mouth every 12 * More... Problem List As Of Date 11/26/2017 Noted Resolved Essential hypertension [I10] INVALID FOR* Priority: C More... 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 Aortic dissection (HCC) [I71.00] INVALID FOR*10/13/2017 Priority: A More... Pain, postoperative, acute [G89.18] INVALID FOR*10/21/2017 Priority: D More... More... Coagulopathy (HCC) [D68.9] INVALID FOR*10/13/2017 Priority: H More... Acute blood loss anemia [D62] INVALID FOR*10/26/2017 Priority: F More... More... Lactic acid acidosis [E87.2] INVALID FOR*10/13/2017 Priority: F More... More... More... Cardiac insufficiency (HCC) [I50.9] INVALID FOR*10/21/2017 Priority: Mild More... Acute ischemic right MCA stroke (HCC) [I63.511] INVALID FOR* Priority: D More... Cerebral edema (HCC) [G93.6] INVALID FOR*10/21/2017 Priority: D More... Severe protein-calorie malnutrition (HCC) [E43] INVALID FOR* Priority: G More... Chronic respiratory failure (HCC) [J96.10] INVALID FOR* Priority: B More... Elevated LFTs [R79.89] INVALID FOR*11/01/2017 Priority: G More... Leukocytosis [D72.829] INVALID FOR* Priority: I More... 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 More... Seizure (HCC) [R56.9] INVALID FOR* Priority: E More... Hypernatremia [E87.0] INVALID FOR*11/01/2017 Priority: F More... Encounter Status:Closed by GERMAIN GARCÍA on 11/26/17 ED NOTE Observed: 11/23/2017 Status: COMPLETED Source: [place] 6:25 PM [facility] REPOSITORY HNO ID: [id number] Author: Safia (Rn) HERMINIO Díaz Service: Emergency Medicine Author Type: Registered Nurse Type: ED Notes Filed: 11/23/2017 6:25 PM Note Text: Report called to Mariangel SAWANT. 4-ride called. ED PROV NOTE Observed: 11/23/2017 Status: COMPLETED Source: [place] 5:27 PM [facility] REPOSITORY HNO ID: [id number] Author: Kathi Bragg DO Service: Emergency Medicine Author Type: Physician Type: ED Provider Notes Filed: 11/23/2017 5:40 PM Note Text: I performed a history and physical examination of the patient and discussed the management with the resident. I reviewed the resident's note and agree with the documented findings and plan of care. The patient was initially seen by Dr. Garcia in the emergency department. The patient was signed out to me. At time of signout, CTA of the chest was pending in order to evaluate the patient's aorta due to recent aortic graft repair for a type A dissection performed at the [facility] and to rule out PE. The patient has been staying at the [facility] for rehabilitation over the past 2 weeks. Today he had some chest pressure and T-wave inversions in the precordial leads V3 through V6. CT has resulted in shows no evidence of acute process involving the aorta. There is no PE. The patient does have an infiltrate in the left lung for which he will be treated. Cardiothoracic surgery at the [facility] has been contacted with results to coordinate care. The patient will be discharged back to [facility]. Kathi Bragg, DO 11/23/17 1730 Kathi Mahsa, DO 11/23/17 1740 [facility] TROPONIN I Collected: 11/23/2017 Status: F Source: [facility] 4:48 PM [facility] SYSTEM REPOSITORY TYPE CODE TESTS RESULT OUT OF REFERENCE UNITS RANGE LAB ERTRP(LOINC 0.015-0.045 ng/ml ) [facility] Troponin I < 0.015 Performed By: #### ERTRP #### [facility] [address] [place] [address] ED NOTE Observed: 11/23/2017 Status: COMPLETED Source: [place] 4:48 PM [facility] REPOSITORY HNO ID: [id number] Author: Jim (Rn) HERMINIO Fenton Service: Emergency Medicine Author Type: Registered Nurse Type: ED Notes Filed: 11/23/2017 4:52 PM Note Text: Labs were drawn and sent. B set Trop. ED NOTE Observed: 11/23/2017 Status: COMPLETED Source: [place] 4:45 PM [facility] REPOSITORY HNO ID: [id number] Author: Jim RobertsRn) HERMINIO Fenton Service: Emergency Medicine Author Type: Registered Nurse Type: ED Notes Filed: 11/23/2017 4:45 PM Note Text: Patient returned to the Emergency Department. 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 Chest pressure today. Technique: Spiral CT acquisition of the chest from the thoracic inlet to the upper abdomen following IV contrast. M: CTCP_3 Contrast: 100 mL Omnipaque [address] Dose-Length Product: 442.38 mGy*cm CT Dose Reduction Employed: Automated exposure control (AEC) was used. Comparison: Chest radiograph earlier today. RESULT: Limitations: Respiratory and cardiac pulsation artifact. Evaluation for thromboembolic disease: - Right heart chambers: No thromboembolic disease. - Main pulmonary arteries: No thromboembolic disease. - Lobar pulmonary arteries: No thromboembolic disease. - Segmental pulmonary arteries: No thromboembolic disease. - Subsegmental pulmonary arteries: No thromboembolic disease. Lines, tubes, and devices: Tracheostomy tube is in satisfactory position. Lung parenchyma and pleura: Small bilateral pleural effusions are present. Airspace consolidation with air bronchograms in the left lower lobe most likely represents pneumonia. There is compressive a telectasis at the right lower lobe. Airspace opacity in the inferior right middle lobe may represent atelectasis or infectious consolidation. Minor atelectasis or scarring is present at the lingula an d both upper lobes. Tracheobronchial tree appears within normal limits. There is elevation of the left hemidiaphragm. Thoracic inlet, heart, and mediastinum: There is a stent graft within the aortic arch and descending thoracic aorta. Streak artifact limits evaluation of the aortic lumen along this segment. Hyperdens e presumed surgical bands are present around the ascending aorta and innominate artery. No intimal dissection flap is identified. No definite pseudoaneurysm. No mediastinal hematoma. Main pulmonary artery measures 3.1 cm as may be seen with pulmonary arterial hypertension. No filling defect identified in the pulmonary arterial tree to indicate pulmonary embolism although there is limited evaluati on of distal order subsegmental branches, particularly at the left lower lobe due to airspace consolidation. The heart is not enlarged. There is no pericardial effusion or thickening. Mildly prominen t right paratracheal lymph nodes are likely reactive. No hilar or axillary lymphadenopathy. Bones and soft tissues: No destructive bone lesion. There is a healing midline sternotomy with sternal wires in place. Upper abdomen: No abnormality in the imaged upper abdomen. IMPRESSION: 1. There is a stent graft within the distal aortic arch and descending thoracic aorta. Presumed surgical bands are present around the ascending aorta and innominate artery. Given the limitations of th is exam, no intimal dissection flap or pseudoaneurysm. 2. Small bilateral pleural effusions. Left basilar airspace consolidation with air bronchograms likely representing pneumonia. 3. Mildly prominent right paratracheal lymph nodes are likely reactive. 4. Mildly dilated main pulmonary artery (3.1 cm) as may be seen with pulmonary arterial hypertension. ED PROV NOTE Observed: 11/23/2017 Status: COMPLETED Source: [place] 4:05 PM [facility] REPOSITORY HNO ID: [id number] Author: Kathi Bragg DO Service: Emergency Medicine Author Type: Physician Type: ED Provider Notes Filed: 11/23/2017 6:17 PM Note Text: ED Resident Continuation of Care Note November 23, 2017 4:05 PM Jose Gustafson was endorsed to me by Dr. Mcfadden. Briefly, the patient initially presented to the ED for Chest Pain Clinical Course: Recent type A aortic rupture, repaired at [facility], 3 days later, MCA stroke, craniotomy, g-tube, trach. Approx 2 weeks at [facility]. Today, sat up, chest pressure, T-wave inversion V3-V6, new compared to prior. No SOB, dizziness. Results for orders placed or performed during the hospital encounter of 11/23/17 XR CHEST 1V FRONTAL Result Value Ref Range Bean Dumper EXAMINATION: CHEST RADIOGRAPH (PORTABLE SINGLE VIEW AP) Exam Date/Time: 11/23/2017 2:10 PM Clinical History: Chest pain M: XCP_4 Comparison: None available RESULT: Lines, tubes, and devices: Tracheostomy tube is in place. Lungs and pleura: Airspace opacity at the left lung base with obscuration of the left hemidiaphragm may represent left basilar atelectasis or infectious consolidation. A small left effusion is not excluded. Linear atelectasis or scarring is noted at the right lung base. No evidence of pneumothorax. Cardiomediastinal silhouette: Cardiac silhouette is not enlarged. There is a thoracic aortic stent graft with sternal wires in place. IMPRESSION: 1. Airspace opacity at the left lung base with obscuration of the left hemidiaphragm which may indicate left basilar atelectasis or infectious consolidation. A small left effusion is not excluded. 2. Linear atelectasis/scarring at the right lung base. 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 Chest pressure today. Technique: Spiral CT acquisition of the chest from the thoracic inlet to the upper abdomen following IV contrast. M: CTCP_3 Contrast: 100 mL Omnipaque [address] Dose-Length Product: 442.38 mGy*cm CT Dose Reduction Employed: Automated exposure control (AEC) was used. Comparison: Chest radiograph earlier today. RESULT: Limitations: Respiratory and cardiac pulsation artifact. Evaluation for thromboembolic disease: - Right heart chambers: No thromboembolic disease. - Main pulmonary arteries: No thromboembolic disease. - Lobar pulmonary arteries: No thromboembolic disease. - Segmental pulmonary arteries: No thromboembolic disease. - Subsegmental pulmonary arteries: No thromboembolic disease. Lines, tubes, and devices: Tracheostomy tube is in sati sfactory position. Lung parenchyma and pleura: Small bilateral pleural effusions are present. Airspace consolidation with air bronchograms in the left lower lobe most likely represents pneumonia. There is compressive atelectasis at the right lower lobe. Airspace opacity in the inferior right middle lobe may represent atelectasis or infectious consolidation. Minor atelectasis or scarring is present at the lingula and both upper lobes. Tracheobronchial tree appears within normal limits. There is elevation of the left hemidiaphragm. Thoracic inlet, heart, and mediastinum: There is a stent graft within the aortic arch and descending thoracic aorta. Streak artifact limits evaluation of the aortic lumen along this segment. Hyperdense presumed surgical bands are present around the ascending aorta and innominate artery. No intimal dissection flap is identified. No definite pseudoaneurysm. No mediastinal hematoma. Main pulmonary artery measures 3.1 cm as may be seen with pulmonary arterial hypertension. No filling defect identified in the pulmonary arterial tree to indicate pulmonary embolism although there is limited evaluation of distal order subsegmental branches, particularly at the left lower lobe due to airspace consolidation. The heart is not enlarged. There is no pericardial effusion or thickening. Mildly prominent right paratracheal lymph nodes are likely reactive. No hilar or axillary lymphadenopathy. Bones and soft tissues: No destructive bone lesion. There is a healing midline sternotomy with sternal wires in place. Upper abdomen: No abnormality in the imaged upper abdomen. IMPRESSION: 1. There is a stent graft within the distal aortic arch and descending thoracic aorta. Presumed surgical bands are present around the ascending aorta and innominate artery. Given the limitations of this exam, no intimal dissection flap or pseudoaneurysm. 2. Small bilateral pleural effusio ns. Left basilar airspace consolidation with air bronchograms likely representing pneumonia. 3. Mildly prominent right paratracheal lymph nodes are likely reactive. 4. Mildly dilated main pulmonary artery (3.1 cm) as may be seen with pulmonary arterial hypertension. BASIC METABOLIC PANEL (AK,AV,EU,FV,HL,SHERIDAN,MM,SP) Result Value Ref Range Sodium 137 136 - 145 mEq/L Potassium 4.3 3.5 - 5.1 mEq/L Chloride 101 98 - 107 mEq/L CO2 28 21 - 32 mEq/L Glucose 110 (H) 70 - 99 mg/dL BUN 14 7 - 18 mg/dL Creatinine 0.57 (L) 0.67 - 1.17 mg/dL Calcium 9.4 8.5 - 10.1 mg/dL Anion Gap 12 8 - 16 PROBNP N-TERMINAL (AK,AV,EU,FV,HL,SHERIDAN,MM,SP) Result Value Ref Range NT Pro BNP 1,161 pg/ml [facility] TROPONIN I ([facility]) Result Value Ref Range [facility] Troponin I <0.015 0.015 - 0.045 ng/ml CBC + AUTO DIFF (AK,AV,EU,FV,HL,SHERIDAN,MM,SP) Result Value Ref Range WBC 9.98 (H) 4.23 - 9.07 thou/cmm RBC 3.96 (L) 4.63 - 6.08 mil/cmm HGB 12.5 (L) 13.7 - 17.5 g/dL Hematocrit 38.7 (L) 40.1 - 51.0 % MCV 97.7 (H) 83.2 - 95.6 fl MCH 31.6 25.7 - 32.2 pg MCHC 32.3 32.3 - 36.5 % RDW 15.3 (H) 11.6 - 14.4 % RDW-SD 56.1 (H) 36.1 - 45.8 fl Platelet Count 345 141 - 365 thou/cmm MPV 8.6 (L) 8.7 - 12.0 fl Seg Neutrophil 84.7 % Immature Grans 0.60 % Lymphocyte 10.0 % Monocyte 3.7 % Eosinophil 0.6 % Basophil 0.4 % Seg. Neut. # 8.45 (H) 1.78 - 5.38 thou/cmm Immature Grans # 0.06 (H) 0.00 - 0.05 thou/cmm Lymphocyte # 1.00 0.84 - 2.85 thou/cmm Monocyte # 0.37 0.30 - 0.82 thou/cmm Eosinophil # 0.06 0.04 - 0.54 thou/cmm Basophil # 0.04 0.01 - 0.08 thou/cmm MDRD GFR Result Value Ref Range eGFR >60 >60mL/min/1.73m2 [facility] TROPONIN I ([place] [facility]) Result Value Ref Range [facility] Troponin I <0.015 0.015 - 0.045 ng/ml EKG Result Value Ref Range Bean Dumper NAME : JOSE GUSTAFSON PID : [id number] : 1965 Gender : Male Race : ORD : Procedure Date : Nov 23 2017 13:29 Edit Date : Nov 23 2017 14:48 Diagnosis:NORMAL SINUS RHYTHM NONSPECIFIC ST AND T WAVE ABNORMALITY ABNORMAL ECG NO PREVIOUS ECGS AVAILABLE Confirmed by Imani Garcia ([id number]) on 11/23/2017 2:48:34 PM Ventricular Rate : 94 BPM Atrial Rate : 94 BPM P-R Interval : 124 ms QRS Duration : 86 ms Q-T Interval : 326 ms QTC Calculation(Bezet) : 407 ms P [place] : 29 degrees R [place] : 8 degrees T [place] : 78 degrees Test Reason : Location : : [facility] ED Overread By : Imani Garcia Editted By : Imani Garcia Referred By : JIMMY, Acquired by : Amanda Hood Dr. spoke with cardiothoracic surgery at [facility], request CT for PE, if normal, okay to return to [facility]. Dr. Mckenzie performed, Dr. Manzano is currently management consultant. Will discuss results of the scan prior to disposition. Both A and B set troponin were negative. CT for PE showed Postsurgical changes from previous aortic rupture, small bilateral pleural effusions, left basilar airspace consolidation with air bronchograms likely representing pneumonia. Mild prominent right paratracheal lymph nodes are likely reactive. Mildly dilated main pulmonary artery seen with pulmonary artery hypertension. Pt is only on DVT PPx heparin 5000 unit subq, will be given Levaquin 750 mg PO once now, prescription for 4 more days, dose of home Xanex 0.5 mg PO now. Will speak with [facility] Team as well to close loops. Diagnosis - J18.1 Pneumonia of left lower lobe due to infectious organism (HCC) (primary encounter diagnosis) Comment: Stable condition. The plan was discussed with the patient as well as strict return precautions. The patient understands the plan and the return precautions. The patient is discharged home in stable condition. MD Maurice Sanches (Res) MD Maximo Resident 11/23/17 7341 I performed a history and physical examination of the patient and discussed the management with the resident. I reviewed the resident's note and agree with the documented findings and plan of care. Kathi Bragg, 11/23/17 1817 ED NOTE Observed: 11/23/2017 Status: COMPLETED Source: [place] 3:44 PM [facility] REPOSITORY HNO ID: [id number] Author: Jim RobertsRn) HERMINIO Fenton Service: Emergency Medicine Author Type: Registered Nurse Type: ED Notes Filed: 11/23/2017 3:44 PM Note Text: Patient transported to CT with Tech. ED NOTE Observed: 11/23/2017 Status: COMPLETED Source: [place] 3:44 PM [facility] OTHER [facility]US REPOSITORY HNO ID: [id number] Author: Jim (Rn) HERMINIO Fenton Service: Emergency Medicine Author Type: Registered Nurse Type: ED Notes Filed: 11/23/2017 3:44 PM Note Text: ED NOTE Observed: 11/23/2017 Status: COMPLETED Source: [place] 3:36 PM [facility] OTHER CAMPUS REPOSITORY HNO ID: [id number] Author: Jim RobertsRn) HERMINIO Fenton Service: Emergency Medicine Author Type: Registered Nurse Type: ED Notes Filed: 11/23/2017 3:36 PM Note Text: waiter/waitress third class notified that patient is ready for CT. CHEST 1 VIEW Observed: 11/23/2017 Status: F Source: [facility] 2:10 PM HEALTH SYSTEM REPOSITORY Performed at [facility] APPROVED BY: WILDER HENRIQUEZ MD EXAMINATION: CHEST RADIOGRAPH (PORTABLE SINGLE VIEW AP) Exam Date/Time: 11/23/2017 2:10 PM Clinical History: Chest pain M: XCP_4 Comparison: None available RESULT: Lines, tubes, and devices: Tracheostomy tube is in place. Lungs and pleura: Airspace opacity at the left lung base with obscuration of the left hemidiaphragm may represent left basilar atelectasis or infectious consolidation. A small left effusion is not exc luded. Linear atelectasis or scarring is noted at the right lung base. No evidence of pneumothorax. Cardiomediastinal silhouette: Cardiac silhouette is not enlarged. There is a thoracic aortic stent graft with sternal wires in place. IMPRESSION: 1. Airspace opacity at the left lung base with obscuration of the left hemidiaphragm which may indicate left basilar atelectasis or infectious consolidation. A small left effusion is not excluded. 2. Linear atelectasis/scarring at the right lung base. ED NOTE Observed: 11/23/2017 Status: COMPLETED Source: [place] 2:05 PM [facility] REPOSITORY HNO ID: [id number] Author: Jim RobertsRn) HERMINIO Fenton Service: Emergency Medicine Author Type: Registered Nurse Type: ED Notes Filed: 11/23/2017 2:05 PM Note Text: Visitor at bedside. ED NOTE Observed: 11/23/2017 Status: COMPLETED Source: [place] 2:03 PM [facility] REPOSITORY HNO ID: [id number] Author: Jim RobertsRn) HERMINIO Fenton Service: Emergency Medicine Author Type: Registered Nurse Type: ED Notes Filed: 11/23/2017 2:03 PM Note Text: Bloodwork sent to lab. ED PROV NOTE Observed: 11/23/2017 Status: COMPLETED Source: [place] 1:59 PM [facility] HNO ID: [id number] Author: Corbin Mcfadden MD Service: Emergency Medicine Author Type: Resident Type: ED Provider Notes Filed: 11/23/2017 4:35 PM Note Text: Attestation signed by Imani Garcia MD at 11/24/2017 7:04 AM Attending Note I evaluated the patient and personally participated in the curry components. I agree with the resident's findings and plan as documented and have discussed the case and management of the patient's care with the resident. Signature: Imani Garcia MD Date: 11/24/2017 Time: 7:03 AM ED Provider Note Patient Name: Jose Gustafson SERVICE DATE: 11/23/17 History Patient presents with: Chest Pain: Patient developed chest pain that he believed was positional. EKG showed changes so Scott Craig sent him in for eval. Patient has no complaints at this time. Denies SOB, N/V at time of incident. No radiation. Pressure was midsternal. Hx of CABG. 52 yo male with recent history of recent type A aortic rupture, R MCA stroke s/p craniectomy, g-tube, trach presenting with chest pain today. Per patient he was sat up today for the first time and developed chest pressure while sitting up. Patient states the pressure has resolved since then. Denies any difficulty breathing or palpitations. No lightheadedness. Has slight cough which he has had for at least several days. No vomiting, diarrhea. Tolerating G-Tube feeds. Constipated. No pain anywhere else. PAST MEDICAL HISTORY Diagnosis Date - Acute kidney injury ([facility]) 10/09/2017 - Aortic dissection ([facility]) - History of kidney stones - Hypertension - Stroke (cerebrum) ([facility]) 10/11/2017 - Unspecified asthma(493.90) PAST SURGICAL HISTORY Procedure Laterality Date - COLONOSCOP W/ OR W/O RUST SPEC 08/23/2014 Colonoscopy - LITHOTRIPSY EXTRACORP SHOCK WAVE(ESWL) 18 months ago - PAST SURGICAL HISTORY OF 2012 left ankle ORIF- hardware - PAST SURGICAL HISTORY OF 2012 ORIF left wrist - hardware - REMOVAL OF HEEL SPUR 2002, 2004 Bilateral - REPAIR ING HERNIA,5+Y/O,REDUCIBL Hernia repair, inguinal, as infant FAMILY HISTORY Problem Relation Age of Onset - Stroke Father age 48 of CVA - Asthma Paternal Grandfather Social History Social History Main Topics - Smoking status: Light Tobacco Smoker Types: Cigars - Smokeless tobacco: Never Used - Alcohol use 6.0 oz/week 4 Cans of Beer (12oz) per week - Drug use: No - Sexual activity: Yes Partners: Female ALLERGIES Allergen Reactions - Cats - Grass Pollen Itching Review of Systems Constitutional: Negative for activity change, chills and fever. HENT: Negative for congestion and rhinorrhea. Respiratory: Positive for cough and chest tightness. Negative for shortness of breath. Cardiovascular: Positive for chest pain. Negative for leg swelling. Gastrointestinal: Positive for constipation. Negative for nausea and vomiting. Endocrine: Negative for polyuria. Genitourinary: Negative for decreased urine volume. Skin: Negative for rash and wound. Neurological: Negative for dizziness, light-headedness and headaches. Psychiatric/Behavioral: Negative for confusion. The patient is nervous/anxious. Physical Exam BP 106/83 Pulse 99 Temp (Src) 97.9 (Oral) Resp 21 Ht 6' 0 (1.83m) Wt 185 lb (83.9kg) SpO2 96% BMI 25.08 kg/(m2). Physical Exam Constitutional: He is oriented to person, place, and time. He appears well-developed. HENT: R sided scalp post surgical wound, well healing with skull depression consistent with craniectomy Eyes: EOM are normal. Neck: Neck supple. Trach site c/d/i Cardiovascular: Normal rate, regular rhythm and normal heart sounds. Pulmonary/Chest: Effort normal and breath sounds normal. No respiratory distress. He has no wheezes. Abdominal: Soft. He exhibits no distension. There is no tenderness. g-tube site c/d/i Musculoskeletal: He exhibits no edema or tenderness. Neurological: He is alert and oriented to person, place, and time. No cranial nerve deficit. Left upper and lower flaccid paralysis. Tremors in R LE Skin: Skin is warm and dry. Capillary refill takes less than 2 seconds. Psychiatric: Patient anxious in room Nursing note and vitals reviewed. Diagnostic Testing ED Labs Ordered and Reviewed BASIC METABOLIC PANEL (AK,AV,EU,FV,HL,SHERIDAN,MM,SP) - Abnormal; Notable for the following: Result Value Ref Range Glucose 110 (*) 70 - 99 mg/dL Creatinine 0.57 (*) 0.67 - 1.17 mg/dL All other components within normal limits CBC + AUTO DIFF (AK,AV,EU,FV,HL,SHERIDAN,MM,SP) - Abnormal; Notable for the following: WBC 9.98 (*) 4.23 - 9.07 thou/cmm RBC 3.96 (*) 4.63 - 6.08 mil/cmm HGB 12.5 (*) 13.7 - 17.5 g/dL Hematocrit 38.7 (*) 40.1 - 51.0 % MCV 97.7 (*) 83.2 - 95.6 fl RDW 15.3 (*) 11.6 - 14.4 % RDW-SD 56.1 (*) 36.1 - 45.8 fl MPV 8.6 (*) 8.7 - 12.0 fl Seg. Neut. # 8.45 (*) 1.78 - 5.38 thou/cmm Immature Grans # 0.06 (*) 0.00 - 0.05 thou/cmm All other components within normal limits PROBNP N-TERMINAL (AK,AV,EU,FV,HL,SHERIDAN,MM,SP) ECU TROPONIN I (AK ED) MDRD GFR Procedures Medical Decision Making / ED Course 52 yo male with recent history of aortic disection s/p repair and R sided MCA stroke s/p craniectomy presenting with chest pressure and EKG changes from [facility]. EKG here showing inversions of t waves in V3 - 6. Vitals with mild tachycardia into mid 90s. PE as above. CBC with improved hgb. BMP unremarkable. BNP 1161. Trop < 0.015. Patient discussed with CT surgery at [facility] who suggested CT with contrast of chest. Plan Patient changed over to Dr. Marsh pending CT chest and final dispo SIGNATURE: MD Corbin Carmona (Res) MD Bogdan Resident 11/23/17 1635 Imani Garcia MD 11/24/17 0704 ED PROV NOTE Observed: 11/23/2017 Status: COMPLETED Source: [place] 1:53 PM CLINIC OTHER CAMPUS REPOSITORY HNO ID: [id number] Author: Imani Garcia MD Service: Emergency Medicine Author Type: Physician Type: ED Provider Notes Filed: 11/24/2017 7:25 AM Note Text: HPI 52-year-old male with past medical history of recent aortic dissection status post repair right MCA infarct who presents today with chief complaint of abnormal EKG. The patient had a brief episode of chest pressure this morning and had some EKG changes therefore was sent to the emergency department. PE Gen:awake, alert, anxious CV:tachy Pulm:CTAB, trach collar in place Abd:soft, NT DDX:ACS, PNA, pleural effusion, fluid overload, pericardial effusion, PE possible but less likely as no SOB ED course and plan EKG somewhat limited d/t lower ext tremor, but shows NSR w/ ST changes in inferior lat leads. Labs w/ elevated BNP. Trop negative. Will discuss w/ CT surg at [facility]. CT surg recommended CTA chest to eval for PE and to eval graft. This was pending at time of sign out. ? PNA on CXR. Will discuss results of CTA w/ [facility] CT surg as well as tx for ?PNA. Dispo pending CT surg recs Attending Note I evaluated the patient and personally participated in the curry components. I agree with the resident's findings and plan as documented and have discussed the case and management of the patient's care with the resident. Signature: Imani Garcia MD Date: 11/23/2017 Time: 1:54 PM Imani Garcia MD 11/24/17 0725 HEMOGRAM/DIFF Collected: 11/23/2017 Status: F Source: [facility] 1:40 PM HEALTH SYSTEM REPOSITORY TYPE CODE TESTS RESULT OUT OF REFERENCE UNITS RANGE LAB WBC(LOINC) 4.23-9.07 thou/cmm WBC High 9.98 LAB RBC(LOINC) 4.63-6.08 mil/cmm Low RBC 3.96 LAB HGB(LOINC) 13.7-17.5 g/dL Low Hgb 12.5 LAB HCT(LOINC) 40.1-51.0 % Low Hct 38.7 LAB MCV(LOINC) 83.2-95.6 fl MCV High 97.7 LAB MCH(LOINC) 25.7-32.2 pg MCH 31.6 LAB MCHC(LOINC 32.3-36.5 % ) MCHC 32.3 LAB RDW(LOINC) 11.6-14.4 % RDW High 15.3 LAB RDWSD(LOIN 36.1-45.8 fl C) RDW SD High 56.1 LAB PLT(LOINC) 141-365 thou/cmm Platelet 345 LAB MPV(LOINC) 8.7-12.0 fl Low MPV 8.6 LAB SEG(LOINC) % Seg Neutrophil 84.7 LAB IGRE(LOINC % ) Immature Grans 0.60 LAB LYMPH(LOIN % C) Lymphocyte 10.0 LAB MNO(LOINC) % Monocyte 3.7 LAB EOSIN(LOIN % C) Eosinophil 0.6 LAB BASO(LOINC % ) Basophil 0.4 LAB SEGN(LOINC 1.78-5.38 thou/cmm ) Abs. High Neut 8.45 LAB IGAB(LOINC 0.00-0.05 thou/cmm ) Abs High Immature Grans 0.06 LAB LYMN(LOINC 0.84-2.85 thou/cmm ) Abs. Lymph 1.00 LAB MONON(LOIN 0.30-0.82 thou/cmm C) Abs. [place] 0.37 LAB EOSN(LOINC 0.04-0.54 thou/cmm ) Abs. Eosin 0.06 LAB BASON(LOIN 0.01-0.08 thou/cmm C) Abs. Baso 0.04 Performed By: #### CBCD1 #### [place] [address] ECU TROPONIN I Collected: 11/23/2017 Status: F Source: [address] SYSTEM REPOSITORY TYPE CODE TESTS RESULT OUT OF REFERENCE UNITS RANGE LAB ERTRP(LOINC 0.015-0.045 ng/ml ) ECU Troponin I < 0.015 Performed By: #### ERTRP #### [place] [address] BASIC PANEL Collected: 11/23/2017 Status: F Source: [address] SYSTEM REPOSITORY TYPE CODE TESTS RESULT OUT OF REFERENCE UNITS RANGE LAB NA(LOINC) 136-145 mEq/L Sodium Blood 137 LAB K(LOINC) 3.5-5.1 mEq/L Potassium Blood 4.3 LAB CL(LOINC) 98-107 mEq/L Chloride Blood 101 LAB CO2(LOINC) 21-32 mEq/L CO2 Blood 28 LAB GLU(LOINC) 70-99 mg/dL Glucose High Blood 110 LAB BUN(LOINC) 7-18 mg/dL BUN Blood 14 LAB CREA(LOINC 0.67-1.17 mg/dL ) Low Creatinine Blood 0.57 LAB CA(LOINC) 8.5-10.1 mg/dL Calcium Blood 9.4 LAB ANGAP(LOIN 8-16 C) Anion Gap 12 Performed By: #### P8 #### [place] [address] N-TERMINAL PRO-BNP Collected: 11/23/2017 Status: F Source: [address] SYSTEM REPOSITORY TYPE CODE TESTS RESULT OUT OF RANGE REFERENCE UNITS LAB PBNP(LOINC) pg/ml 1161 N-terminal Pro-BNP Result Comment: Acute CHF Rule-in <50 yrs old >= 450 pg/ml >50 yrs old >= 900 pg/ml Abnormal Pro-BNP All patients >=300 pg/ml Performed By: #### PBNP #### [facility] [address] [place] [address] MDRD GFR Collected: 11/23/2017 Status: F Source: [facility] 1:40 PM HEALTH SYSTEM REPOSITORY TYPE CODE TESTS RESULT OUT OF RANGE REFERENCE UNITS LAB GFRFN(LOINC >60mL/min/1.73m ) 2 eGFR >60 Result Comment: If the patient is , multiply the result by 1.210. Performed By: #### GFR #### [facility] [address] [place] [address] ED NOTE Observed: 11/23/2017 Status: COMPLETED Source: [place] 1:23 PM CLINIC OTHER CAMPUS REPOSITORY HNO ID: [id number] Author: Ileana RobertsRn) HERMINIO Andrade Service: (none) Author Type: Registered Nurse Type: ED Notes Filed: 11/23/2017 1:23 PM Note Text: Bed: ED-08 Expected date: 11/23/17 Expected time: 1:04 PM Means of arrival: Other EMS Fire Comments: [facility] CBC AND DIFFERENTIAL Collected: 11/23/2017 Status: F Source: [place] 5:00 AM CLINIC MAIN CAMPUS REPOSITORY TYPE CODE TESTS RESULT OUT OF REFERENCE UNITS RANGE LAB WBC 3.70-11.00 k/uL WBC 7.23 LAB RBC 4.20-6.00 m/uL Low RBC 3.78 LAB HGB 13.0-17.0 g/dL Low Hemoglobin 11.9 LAB HCT 39.0-51.0 % Low Hematocrit 37.2 LAB MCV 80.0-100.0 fL MCV 98.4 LAB MCH 26.0-34.0 pG MCH 31.5 LAB MCHC 30.5-36.0 g/dL MCHC 32.0 LAB RDWCV 11.5-15.0 % RDW-CV High 15.6 LAB PLTCT 150-400 k/uL Platelet Count 355 LAB MPV 9.0-12.7 fL MPV 9.0 LAB ANEUT % Neut% 71.5 LAB AANEUT 1.45-7.50 k/uL Abs Neut 5.17 LAB ALYMP % Lymph% 16.7 LAB AALYMP 1.00-4.00 k/uL Abs Lymph 1.21 LAB AMONO % [place]% 7.6 LAB AAMONO <0.87 k/uL Abs [place] 0.55 LAB AEOS % Eosin% 3.2 LAB AAEOS <0.46 k/uL Abs Eosin 0.23 LAB ABASO % Baso% 1.0 LAB AABASO <0.11 k/uL Abs Baso 0.07 LAB AUNRBC 0 /100 WBC NRBCs 0.0 LAB ABNRBC <0.01 k/uL Absolute nRBC <0.01 LAB DTYP DTYPE Auto Diff Performed By: #### CBCDIF, BMP #### [facility] [address] [place], [place] [address] BASIC METABOLIC PANL Collected: 11/23/2017 Status: F Source: [place] 5:00 AM [facility] REPOSITORY TYPE CODE TESTS RESULT OUT OF REFERENCE UNITS RANGE LAB GLU 74-99 mg/dL High Glucose 114 Result Comment: The [place] Diabetes Association (ADA) provides guidance for cutoff values for fasting glucose and random glucose. The ADA defines fasting as no caloric intake for at least 8 hours. Fas ting plasma glucose results between 100 to 125 mg/dL indicate increased risk for diabetes (prediabetes). Fasting plasma glucose results greater than or equal to 126 mg/dL meet the criteria for diagnosis of diabetes. In the absence of unequivocal hyperglycemia, results should be confirmed by repeat testing. In a patient with classic symptoms of hyperglycemia or hyperglycemic crisis, random plasma glucose results greater than or equal to 200 mg/dL meet the criteria for diagnosis of diabetes. Reference: Standards of Medical Care in Diabetes 2016, [place] [employer] Association. Diabetes Care. 2016.39(Suppl 1). LAB BUN 9-24 mg/dL BUN 14 LAB CRET 0.73-1.22 mg/dL Creatinine Low 0.54 LAB NA 136-144 mmol/L Sodium 136 LAB K 3.7-5.1 mmol/L Potassium 4.1 LAB CL 97-105 mmol/L Chloride 97 LAB CO2 22-30 mmol/L CO2 26 LAB AGAP 9-18 mmol/L Anion Gap 13 LAB CA 8.5-10.2 mg/dL Calcium, Total 9.3 LAB GFRAA eGFR- Amer. >60 LAB GFRNAA . eGFR-All Other Races >60 Result Comment: eGFR (Estimated GFR) Units of measure: mL/min/1.73 meters squared eGFR is derived from the reexpressed MDRD Study equation using the following parameters: serum creatinine, age, gender and race. The creatinine assay has been calibrated to be traceable to IDMS. An eGFR <60 mL/min/1.73m2 for >3 months is consistent with chronic kidney disease. Refer to KDOQI guidelines for clinical interpretation. In patients with unstable renal function, e.g. those with acute kidney injury, the eGFR may not accurately reflect actual GFR. Performed By: #### CBCDIF, BMP #### [facility] [address] [place], [place] [address] PROGRESS Observed: 11/11/2017 Status: COMPLETED Source: [place] 3:30 PM [facility] REPOSITORY HNO ID: [id number] Author: Kaykay Beth Service: (none) Author Type: Physician Type: Progress Notes Filed: 11/11/2017 4:15 PM Note Text: Noted, thank you Kaykay Beth MD PROGRESS Observed: 11/11/2017 Status: COMPLETED Source: [place] 11:47 AM [facility] REPOSITORY HNO ID: [id number] Author: Ricky Groves (Rn) Service: (none) Author Type: Registered Nurse Type: Progress Notes Filed: 11/11/2017 4:15 PM Note Text: PRIMARY CARE COORDINATION QUICK NOTE Provider Action/FYI Call from Rocío Dobbins RN CM noting trach in place, beginning weaning off the vent, Corpak for advanced nutrition, providing wound care, receiving IV Zosyn, anticipate possible discharge for the beginning of November. Patient identified by name and date . Germain García RN November 11, 2017 11:47 AM PROGRESS Observed: 11/11/2017 Status: COMPLETED Source: [place] 11:11 AM [facility] REPOSITORY HNO ID: [id number] Author: Ricky Groves (Rn) Service: (none) Author Type: Registered Nurse Type: Progress Notes Filed: 11/11/2017 4:15 PM Note Text: PRIMARY CARE COORDINATION FOLLOW-UP NOTE Provider Action/FYI 1. Pt was Adm to [facility] 10/07/17-11/01/17 Reason for Hospitalization: Aortic Rupture, Discharged to Operations during Hospitalization: 10/08/2017?Total arch replacement with FET under [facility] 10/08/2017 Chest exploration/Evacuation of hematoma / Open chest with wound vac 10/10/2017 Chest opened with wound VAC placement (Attempt closure, but fail due to desaturation) 10/12/2017 Right decompressive hemicraniectomy for R MCA stroke and malignant cerebral edema 10/14/2017 Chest exploration and closure 10/17/2017 Tracheostomy 2. Call to [facility] left a vm for Anna Dobbins RN CM [phone], provided Blowing Weasand's phone number for status update and Discharge Planning needs. Patient identified by name and date of . YES Signature Germain García RN November 11, 2017 CNPTOUTREACH Observed: 11/11/2017 Status: COMPLETED Source: [place] 12:00 AM [facility] REPOSITORY Patient Outreach (FAMPWS) JOSE GUSTAFSON ([id number]) 1965 [facility] Date Time Provider Department 11/11/17 RICKY GROVES (HERMINIO) FAMPWS During your visit today, we recorded the following information about you: Germain García RN 11/11/2017 4:15 PM Signed PRIMARY CARE COORDINATION FOLLOW-UP NOTE Provider Action/FYI 1. Pt was Adm to [facility] 10/07/17-11/01/17 Reason for Hospitalization: Aortic Rupture, Discharged to Operations during Hospitalization: 10/08/2017?Total arch replacement with FET under [facility] 10/08/2017 Chest exploration/Evacuation of hematoma / Open chest with wound vac 10/10/2017 Chest opened with wound VAC placement (Attempt closure, but fail due to desaturation) 10/12/2017 Right decompressive hemicraniectomy for R MCA stroke and malignant cerebral edema 10/14/2017 Chest exploration and closure 10/17/2017 Tracheostomy 2. Call to [facility] left a vm for Anna Dobbins RN CM [phone], provided [employer]'s phone number for status update and Discharge Planning needs. Patient identified by name and date of . YES Signature Germain García RN November 11, 2017 Germain García RN 11/11/2017 4:15 PM Signed PRIMARY CARE COORDINATION QUICK NOTE Provider Action/FYI Call from [facility] Anna Dobbins RN CM noting trach in place, beginning weaning off the vent, Corpak for advanced nutrition, providing wound care, receiving IV Zosyn, anticipate possible discharge for the beginning of November. Patient identified by name and date . Germain García RN November 11, 2017 11:47 AM Kaykay Beth MD 11/11/2017 4:15 PM Signed Noted, thank you Kaykay Beth MD Allergies As of Date: 11/11/2017 Noted Allergy Reaction CATS 09/26/2009 GRASS POLLEN 12/08/2012 9 - Itching Date Reviewed: 11/01/2017 Reviewed by: Boubacar (Rn) HERMINIO Muñiz - Fully Assessed Reason for Visit: [facility] Follow Up [1591] Cmt: R[facility] as of 11/11/2017 Sig: ACETAMINOPHEN 650 MG/20.3 ML * 15.62-31.23 mL by NASOGASTRIC* NYSTATIN 100,000 UNITS/ML ORA* Take 5 mL by mouth four times* IPRATROPIUM-ALBUTEROL 0.5 MG-* Inhale 3 mL as instructed sunita* METOPROLOL TARTRATE 25 MG TAB* Take 3 tablets by mouth every* AMLODIPINE 10 MG TABLET Take 1 tablet by mouth once d* CHLORHEXIDINE GLUCONATE 0.12 * Take 15 mL by mouth every 6 h* BUDESONIDE 1 MG/2 ML SUSPENSI* Use 2 mL via nebulizer twice * HEPARIN (PORCINE) 5,000 UNIT/* Inject 1 mL subcutaneously ev* DEXTROSE 50 % IN WATER (D50W)* Inject 25 mL intravenously as* SENNOSIDES 8.6 MG-DOCUSATE SO* Take 1 tablet by mouth twice * BISACODYL 10 MG RECTAL SUPPOS* 1 Suppository by RECTAL route* FUROSEMIDE 20 MG/2 ML INJ Inject 2 mL intravenously onc* THERAPEUTIC MULTIVITAMIN TABL* Take 1 tablet by mouth once d* ASPIRIN 81 MG CHEWABLE TABLET Take 1 tablet by mouth once d* POTASSIUM CHLORIDE 20 MEQ ORA* 40-120 mEq by ORAL/FEEDING TU* ZINC OXIDE-COD LIVER OIL 40 %* Apply 1 application to affect* PANTOPRAZOLE ORAL LIQUID 40 M* 10 mL by ORAL/FEEDING TUBE ro* LACOSAMIDE ORAL SOLUTION 100 * Take 20 mL by mouth every 12 * More... Problem List As Of Date 11/11/2017 Noted Resolved Essential hypertension [I10] INVALID FOR* Priority: C More... 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 Aortic dissection (HCC) [I71.00] INVALID FOR*10/13/2017 Priority: A More... Pain, postoperative, acute [G89.18] INVALID FOR*10/21/2017 Priority: D More... More... Coagulopathy (HCC) [D68.9] INVALID FOR*10/13/2017 Priority: H More... Acute blood loss anemia [D62] INVALID FOR*10/26/2017 Priority: F More... More... Lactic acid acidosis [E87.2] INVALID FOR*10/13/2017 Priority: F More... More... More... Cardiac insufficiency (HCC) [I50.9] INVALID FOR*10/21/2017 Priority: Mild More... Acute ischemic right MCA stroke (HCC) [I63.511] INVALID FOR* Priority: D More... Cerebral edema (HCC) [G93.6] INVALID FOR*10/21/2017 Priority: D More... Severe protein-calorie malnutrition (HCC) [E43] INVALID FOR* Priority: G More... Chronic respiratory failure (HCC) [J96.10] INVALID FOR* Priority: B More... Elevated LFTs [R79.89] INVALID FOR*11/01/2017 Priority: G More... Leukocytosis [D72.829] INVALID FOR* Priority: I More... 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 More... Seizure (HCC) [R56.9] INVALID FOR* Priority: E More... Hypernatremia [E87.0] INVALID FOR*11/01/2017 Priority: F More... Encounter Status:Closed by GERMAIN GARCÍA on 11/11/17 PROCEDURE Observed: 11/01/2017 Status: COMPLETED Source: [place] 12:58 PM [facility] REPOSITORY HNO ID: [id number] Author: Ivanna Lugo) Germán Service: Critical Care Author Type: Nurse Practitioner Type: Procedures Filed: 11/01/2017 12:59 PM Note Text: Platelet Count 393 11/01/2017 Platelet Count 350 10/31/2017 Platelet Count 359 10/30/2017 Platelet Count 371 10/29/2017 PT INR 1.3 10/14/2017 PT INR 1.2 10/12/2017 PT INR 1.2 10/11/2017 PT INR 1.2 10/09/2017 rhythm normal sinus rhythm 2 atrial wires were cut without difficulty 2 ventricular wires were cut without difficulty Mr. Jose Gustafson and bedside RN aware of 30 min bedrest restriction Ivanna Dunlap CNP CASE MANAGEM Observed: 11/01/2017 Status: COMPLETED Source: [place] 12:20 PM [facility] REPOSITORY HNO ID: [id number] Author: Germain Gamez RN Service: Case Management Author Type: Registered Nurse Type: Care Mgt Progress Note Filed: 11/01/2017 1:21 PM Note Text: CARE MANAGEMENT DISCHARGE NOTE SERVICE DATE: 11/01/2017 SERVICE TIME: 12:21 PM LOS: 25 days Admission Date: 10/07/2017 DISCHARGE ARRANGEMENT (list agency and phone number) terminal clerk acute care Provider: [facility] CAREGIVER ASSESSMENT: Caregiver is ready, willing and able to meet the patient's needs as recommended by the inter-professional team? No Caregiver Needed Patient's transition needs and plan for meeting these needs: patient will dc to LTAC level of care. Does the patient have an acute stroke diagnosis, or has the patient had a stroke during this admission? Yes HANDOFF COMMUNICATION: dc instructions and dc summary uploaded to [employer] [facility] and sent to receiving facility TRANSPORTATION ARRANGEMENTS: Ambulance: Transport Agency and Phone: Philip Edwards [phone] . Discussion of financial coverage occurred with Family. ADDITIONAL CONTACT RESOURCES: none Patient for discharge today to above LTAC facility, dc instructions and dc summary sent to receiving facility via [employer] [facility], Patients was notified of discharge time and is agreeable to discharge plan. 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 Report numbers given to bedside RN and RT. SIGNATURE: Germain Gamez RN PATIENT NAME: Jose Gustafson DATE: November 01, 2017 TIME: 12:20 PM PAGER/CONTACT #: [phone] GASA + ALL Collected: 11/01/2017 Status: F Source: [place] FOR 11:52 AM [facility] USE ONLY REPOSITORY TYPE CODE TESTS RESULT OUT OF REFERENCE UNITS RANGE LAB PH 7.35-7.45 pH High 7.49 LAB PCO2 34-46 mm Hg pCO2 Low 33 LAB PO2 85-95 mm Hg pO2 High 100 LAB BE mmol/L Base Excess 2 LAB HCO3 22-26 mmol/L Bicarbonate 24 LAB CO2CT 22.0-28.0 mmol/L CO2 Content 25 LAB O2HB 95-98 % Oxyhemoglobin, Art. 95 LAB COHB 0-5.0 % Carboxyhemoglobin, 1.9 Art LAB MHGB 0.4-1.5 % Methemoglobin 1.1 LAB TEMP C Temperature, Body 37.0 LAB PHTC 7.35-7.45 pH, Temp High Corrected 7.49 LAB PCO2T 34-46 mm Hg pCO2, Temp Low Correct 33 LAB PO2T mm Hg pO2, Temp Corrected 100 LAB NAB 135-146 mmol/L Sodium,Whole Bld 143 LAB KWB 3.5-5.0 mmol/L Potassium, Whole Bld 3.6 LAB HGBB 13.0-17.0 g/dL Low Hemoglobin,Total,A 10.1 CL LAB HCTB 39.0-51.0 % Hematocrit, Low ACL 31 LAB IC 1.08-1.30 mmol/L Calcium, Ion, WB 1.19 LAB GLB 60-105 mg/dL Glucose,Whole High Bld 131 LAB LACT 0.5-2.2 mmol/L Lactate 0.8 LAB ACBDTE Notify Date, Art 20171101 LAB ACBTME Notify Time, Art 892811 Performed By: #### ALLBG #### [facility] [address] [place], [place] [address] PROGRESS Observed: 11/01/2017 Status: COMPLETED Source: [place] 9:38 AM [facility] REPOSITORY HNO ID: [id number] Author: Ivanna Dunlap Service: Critical Care Author Type: Nurse Practitioner Type: Progress Notes Filed: 11/01/2017 9:42 AM Note Text: [facility] Note Name: Jose Gustafson Coordination of Care Note: Indication for Surgery: Spontaneous Rupture of Aorta LVEF: Normal RVF: Normal Important/Relevant PMH/PSH: HTN, asthma, hx kidney stones Preoperative Hospital Course (narrative): 52 yo M with PMH HTN, Asthma, and hx of kidney stones who is transferred to [facility] for 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 Procedure/Surgeries: 10/08/2017 Total arch replacement with FET under DHCA 10/08/2017 Chest exploration/Evacuation of hematoma / Open chest with wound vac 10/10/2017 Chest opened with wound VAC placement (Attempt closure, but fail due to desaturation) 10/12/2017 Right decompressive hemicraniectomy for R MCA stroke and malignant cerebral edema 10/14/2017 Chest washout and closure 10/17/2017 Tracheostomy Airway Difficulty: Grade I - No special instrumentation OR Course: Transient or mild hypotension and Coagulopathy/bleeding requiring massive resuscitation Pacing wires: Yes: Ventricular: When discontinuing pacing wires: Cut all pacing wires Postoperative Course/General Impression: (narrative or log of major events with date of onset): OR course complicated by coagulopathy requiring massive resuscitation. Arrived to CVICU with open chest. Hypotension and cardiac insufficiency required inotropic support and vasopressors, now resolved. Returned to OR 10/08 for exploration and large amount of clots. 10/10/17 Chest closure attempt failed due to desaturation.Chest closed 10/14/17. Post-op course further complicated by large right MCA infarct with associated mass effect requiring hemicraniectomy per Neurosurgery on 10/12. Respiratory failure requiring trach on 10/17. Keppra initiated empirically started but changed to vimpat due subclinical seizures and elevated LFTs. Mental status improving. Continue Ventilator weaning as tolerated. Issues to communicate at signout: LTAC today Other Problems I Reviewed and/or Managed During This Encounter: Problem Dissection of Thoracic Aorta (Hcc) Patient with chest pain at OSH. CT chest was concerning for aortic dissection starting at the mid arch and descending in the thoracic aorta. 10/08/2017 s/p Total arch replacement with FET under DHCA; open chest 10/08/2017 Chest exploration/Evacuation of hematoma/Open chest with wound vac 10/10/2017 Chest opened with wound VAC placement (Attempt closure, but fail due to desaturation) 10/14/2017 Chest washout and closure. A/P: ASA Chronic Respiratory Failure (Hcc) 10/17/2017: Tracheotomy A/P: Continue increasing CPAP trial duration. Decreasing pressure support requirements. Continue to progress to trach collar as tolerated. Essential Hypertension Permissive hypertension: goal MAP 80-110 A/p: BP controlled BB, Norvasc, PRN labetalol. Acute Ischemic Right Mca Stroke (Hcc) L sided weakness 10/11; CTH with large R MCA infarct with associated mass effect. Repeat imaging with evolution of R MCA infarct with increased edema 10/12/2017 - Right decompressive hemicraniectomy for R MCA stroke and malignant cerebral edema 10/20/17 CT Petechial hemorrhage within the evolving right MCA territory infarct, unchanged. A/P: Neurology following. Mental status improving. Awake, following on rt side commands, attempting to mouth words. Frequent neuro assessments. Avoid sedatives. Permissive HTN MAP goals 80-100. Seizure (Hcc) 10/12/2017 - Right decompressive hemicraniectomy for R MCA stroke and malignant cerebral edema Keppra for seizure prophylaxis. Discontinued due to concern for sedation. 10/25/17 Subclinical seizures noted on EEG. Started Vimpat. 10/28/17 Final EEG report negative for seizures, continuous EEG discontinued. A/P: No seizure activity. Continue Vimpat. Acquired Skull Defect S/p right hemicraniectomy A/P: Neurosurg signed off: helmet for discharge (orthotics consulted), follow-up in [address] Florence Sharif, flap closure will be in 2-3 months. Severe Protein-Calorie Malnutrition (Hcc) A/P: Tolerating TF at goal. Leukocytosis Persistent fever and leukocytosis. BCx from 10/21/2017 positive for MRSE, suspect contaminant. BCx 10/25/2017 with 1/2 positive for GPC. A/P: Afebrile. Continue to monitor off antibiotics. ID signed off. PHYSICAL EXAM: Neuro: Awake and Follows commands Cardiovascular: Rhythm: regular rate and rhythm Pulmonary: Clear to auscultation and Breath sounds equal Ventilator: Intubated: CPAP; FiO2: 24; PEEP: 5 cmH2O; Trach Collar ; HOB elevated 40 degrees: Yes; Oral care with chlorhexidine: Yes; Was sedation turned off? Yes CXR Findings: Atelectasis Bilateral, Increased Vascular Markings Bilateral and CXR personally viewed and interpreted by ICU staff Nurse Practitioner Gastrointestinal: Abdominal: Soft DAILY CVICU CHECKLIST VTE Prophylaxis: Pharmacologic Yes VTE Prophylaxis: Mechanical: Yes Line infection prevention: Can CVC, PAC or arterial line be removed: Yes - Remove Central venous catheter Continued need for urinary catheter: Yes - clinical indication: Patient post major surgery requiring fluid balance and input and output measurement. Restraints needed: No SIGNATURE: Ivanna Dunlap CNP DATE of SERVICE: 11/01/2017 TIME of SERVICE: 9:39 AM THERAPY NT Observed: 11/01/2017 Status: COMPLETED Source: [place] 9:36 AM [facility] REPOSITORY [facility] ID: [id number] Author: Sher (Pt) BASSAM Drummond Service: Physical Therapy Author Type: Physical Therapist Type: Therapy (PT/OT/Speech/Resp) Filed: 11/01/2017 9:41 AM Note Text: Physical Therapy Treatment SERVICE DATE: 11/01/2017 SERVICE TIME: 904 to 929 ROOM: [place] [address] Recommended Discharge Disposition: Unable to determine due to critical care status Anticipated Discharge Needs: Undetermined Recommended Discharge Equipment: To Be Determined PT Recommendations to Nursing: Utilize bed in chair position;Passive lift to/from chair PT 6 Clicks Score: 6 Precautions/Activity Restrictions: Seizure;Lines/Tubes/Drains;Fall Risk;Crani;Cardiac;Sternal Precaution/Activity Restriction Comments: pt to wear helmet when mobilizing, hemicraniotomy ASSESSMENT : Patient demonstrated improved ability to participate in physical therapy session. Patient demonstrated improved ability to follow directions today. Patient demonstrated the ability to participate in exercise with right lower extremity. Patient demonstrated poor head control and required assistance to keep his head in neutral spine (tends to lean right). Patient is appropriate for continued physical therapy while in-house. Discharge recommendations pending patient progress, ability to follow directions, and actively participate in physical therapy session. Patient was left in bed, all lines intact, call mendieta in reach, RN present. Tolerated Full Session (difficulty following directions) Physical Therapy Problem List: Education Deficit;Safety Deficits;Impaired Self Care;Decreased Activity Tolerance;Functional Mobility Impairment;Balance Impaired (Impaired motor control) Patient /Caregiver Goals: (unable to communicate) Goals for Plan of Care: Able to perform HEP with: Minimal Assistance Rolling with: Moderate Assistance Transfer supine to/from sit with: Moderate Assistance Progress Toward Goals: Progressing as expected Rehab Potential: Fair PLAN: Treatment Frequency (times per week): 2 Current admission Treatment Interventions: Education;Self Care / Home Management;Energy Conservation Training;Strengthening;Functional Mobility Training;Balance Training;Neuromuscular Re-education Plan of Care developed with: Patient TREATMENT INTERVENTIONS: Therapy Diagnosis: Reduced mobility-other (Impaired motor control) Interventions Provided: Therapeutic Exercise (78158);Therapeutic Activity (41440) Therapeutic Exercise (49342) Treatment Minutes: 10 1 unit Skilled Intervention(s): - Instruction in therapeutic exercise per doc flowsheet. - Verbal and tactile cuing provided to facilitate muscle control, optimal recruitment and alignment Therapeutic Activity (30140) Treatment Minutes: 15 1 unit Skilled Intervention(s): - maximum assistance to anterior lean with bed in chair position. Patient was able to assist with his right upper extremity. - assistance, verbal cues/tactile cues for upright posture and improved head positioning and posture. Total Timed Code Treatment Minutes: 25 Total Treatment Time (minutes): 25 FUNCTIONAL G CODE: PT 6 Clicks Score: 6 (11/01/17 0905) Mobility: Walking and Moving Around Current Status (G8978): CN (10/30/17 1010) Mobility: Walking and Moving Around Goal Status (G8979): CM (10/30/17 1010) Based on clinical assessment and the score on the 6 Clicks Functional Assessment Tool, the G code and corresponding severity modifiers are documented above. 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) Entry To Home: Stairs Number Of Stairs Into Home: 2 Number Of Stairs To Bed/Bath: 0 Tub/Shower Type: walk-in shower Prior Functional Level: Unable to Assess OBJECTIVE: CURRENT FUNCTIONAL STATUS: Current Functional Mobility Assist Level Additional Information Rolling Supine to Sit Total Assistance (bed into chair position, max A to lean anterior) Sit to Supine Scooting Sit to Stand Stand to Sit Bed to Chair Toilet/Commode Gait Stairs Curb Step Car Transfer Activity Tolerance: Sitting Activity Sitting Activity: posture/balance Sitting Activity Tolerance (in minutes): 12 Please see discipline specific clinical documentation flowsheet for complete details for this therapy evaluation/treatment. SIGNATURE: Sher Drummond PT PATIENT NAME: Jose Gustafson DATE: November 01, 2017 TIME: 9:36 AM PAGER/CONTACT #: [phone] GASA + ALL Collected: 11/01/2017 Status: F Source: [facility] 8:17 AM [facility] RADIANCE USE ONLY REPOSITORY TYPE CODE TESTS RESULT OUT OF REFERENCE UNITS RANGE LAB PH 7.35-7.45 pH 7.45 LAB PCO2 34-46 mm Hg pCO2 34 LAB PO2 85-95 mm Hg pO2 High 137 LAB BE mmol/L Base Excess 0 LAB HCO3 22-26 mmol/L Bicarbonate 24 LAB CO2CT 22.0-28.0 mmol/L CO2 Content 25 LAB O2HB 95-98 % Oxyhemoglobin, Art. 97 LAB COHB 0-5.0 % Carboxyhemoglobin,A 1.2 rt LAB MHGB 0.4-1.5 % Methemoglobin 1.0 LAB TEMP C Temperature, Body 37.0 LAB PHTC 7.35-7.45 pH, Temp Corrected 7.45 LAB PCO2T 34-46 mm Hg pCO2, Temp Correct 34 LAB PO2T mm Hg pO2, Temp Corrected 137 LAB NAB 135-146 mmol/L Sodium,Whole Bld 142 LAB KWB 3.5-5.0 mmol/L Potassium, Whole Bld 4.0 LAB HGBB 13.0-17.0 g/dL Low Hemoglobin,Total,AC 9.5 L LAB HCTB 39.0-51.0 % Hematocrit, ACL Low 29 LAB IC 1.08-1.30 mmol/L Calcium, Ion, WB 1.17 LAB GLB 60-105 mg/dL Glucose,Whole Bld High 115 LAB LACT 0.5-2.2 mmol/L Lactate 0.9 Performed By: #### ALLBG #### [facility] [address] [place], [place] [address] XR CHEST 1V FRONTAL Observed: 11/01/2017 Status: F Source: [facility] 4:57 AM [facility] REPOSITORY * * *Final Report* * * DATE OF EXAM: Nov 01 2017 4:57AM JIX [id number] - XR CHEST 1V FRONTAL PORT / PROCEDURE REASON: Postoperative state * * * * Physician Interpretation * * * * EXAMINATION: CHEST RADIOGRAPH (PORTABLE SINGLE VIEW AP) Exam Date/Time: 11/01/2017 4:57 AM Indication: Postoperative state MQ: XCP_4 Comparison: 1 day prior RESULT: See impression. IMPRESSION: Lines, tubes, and devices: Tracheostomy is in stable position. Feeding tube extends below the diaphragm. Patient is status post median sternotomy and placement of an endovascular stent in the proximal descending thoracic aorta. Lungs and pleura: Stable blunting of the costophrenic angles, suggestive of small effusions with adjacent lower lung zone opacities, probably representing atelectasis. Nonspecific rounded nodular density at the medial right lung base is unchanged and should be assessed on follow-up. Linear density overlying the right upper lung zone is stable and likely due to subsegmental atelectasis or scar. No pulmonary edema or pneumothorax. Cardiomediastinal silhouette: Stable cardiomediastinal silhouette. Other: Silver Wrapper: AMY Transcribe Date/Time: Nov 01 2017 9:47A Dictated by : LUIS ENRIQUE ALFONSO MD This examination was interpreted and the report reviewed and electronically signed by: LUIS ENRIQUE ALFONSO MD on Nov 01 2017 9:49AM EST [id number] GASA + ALL Collected: 11/01/2017 Status: F Source: [facility] 4:22 AM [facility] RADIANCE USE ONLY REPOSITORY TYPE CODE TESTS RESULT OUT OF REFERENCE UNITS RANGE LAB PH 7.35-7.45 pH High 7.46 LAB PCO2 34-46 mm Hg pCO2 Low 33 LAB PO2 85-95 mm Hg pO2 High 117 LAB BE mmol/L Base Excess 0 LAB HCO3 22-26 mmol/L Bicarbonate 23 LAB CO2CT 22.0-28.0 mmol/L CO2 Content 24 LAB O2HB 95-98 % Oxyhemoglobin, Art. 96 LAB COHB 0-5.0 % Carboxyhemoglobin,A 1.7 rt LAB MHGB 0.4-1.5 % Methemoglobin 1.0 LAB TEMP C Temperature, Body 37.0 LAB PHTC 7.35-7.45 pH, Temp High Corrected 7.46 LAB PCO2T 34-46 mm Hg pCO2, Temp Low Correct 33 LAB PO2T mm Hg pO2, Temp Corrected 117 LAB NAB 135-146 mmol/L Sodium,Whole Bld 143 LAB KWB 3.5-5.0 mmol/L Potassium, Whole Bld 4.0 LAB HGBB 13.0-17.0 g/dL Low Hemoglobin,Total,AC 9.4 L LAB HCTB 39.0-51.0 % Hematocrit, ACL Low 29 LAB IC 1.08-1.30 mmol/L Calcium, Ion, WB 1.20 LAB GLB 60-105 mg/dL Glucose,Whole Bld High 128 LAB LACT 0.5-2.2 mmol/L Lactate 0.7 Performed By: #### ALLBG #### [facility] [address] [place], [place] [address] GASA + ALL Collected: 11/01/2017 Status: F Source: [place] FOR 12:26 AM [facility] RADIANCE USE ONLY REPOSITORY TYPE CODE TESTS RESULT OUT OF REFERENCE UNITS RANGE LAB PH 7.35-7.45 pH High 7.46 LAB PCO2 34-46 mm Hg pCO2 Low 32 LAB PO2 85-95 mm Hg pO2 High 154 LAB BE mmol/L Base Excess NEG 1 LAB HCO3 22-26 mmol/L Bicarbonate 22 LAB CO2CT 22.0-28.0 mmol/L CO2 Content 23 LAB O2HB 95-98 % Oxyhemoglobin, Art. 96 LAB COHB 0-5.0 % Carboxyhemoglobin,A 1.8 rt LAB MHGB 0.4-1.5 % Methemoglobin 0.9 LAB TEMP C Temperature, Body 37.0 LAB PHTC 7.35-7.45 pH, Temp High Corrected 7.46 LAB PCO2T 34-46 mm Hg pCO2, Temp Low Correct 32 LAB PO2T mm Hg pO2, Temp Corrected 154 LAB NAB 135-146 mmol/L Sodium,Whole Bld 141 LAB KWB 3.5-5.0 mmol/L Potassium, Whole Bld 4.0 LAB HGBB 13.0-17.0 g/dL Low Hemoglobin,Total,AC 9.2 L LAB HCTB 39.0-51.0 % Hematocrit, ACL Low 29 LAB IC 1.08-1.30 mmol/L Calcium, Ion, WB 1.20 LAB GLB 60-105 mg/dL Glucose,Whole Bld High 120 LAB LACT 0.5-2.2 mmol/L Lactate 0.9 Performed By: #### ALLBG #### [facility] [address] [place], [place] [address] CBC Collected: 11/01/2017 Status: F Source: [place] 12:11 AM [facility] REPOSITORY TYPE CODE TESTS RESULT OUT OF REFERENCE UNITS RANGE LAB WBC 3.70-11.00 k/uL WBC High 11.76 LAB RBC 4.20-6.00 m/uL Low RBC 3.00 LAB HGB 13.0-17.0 g/dL Low Hemoglobin 9.3 LAB HCT 39.0-51.0 % Low Hematocrit 29.9 LAB MCV 80.0-100.0 fL MCV 99.7 LAB MCH 26.0-34.0 pG MCH 31.0 LAB MCHC 30.5-36.0 g/dL MCHC 31.1 LAB RDWCV 11.5-15.0 % RDW-CV High 18.8 LAB PLTCT 150-400 k/uL Platelet Count 393 LAB MPV 9.0-12.7 fL MPV 9.8 LAB ABSNUC <0.01 k/uL Absolute nRBC <0.01 Performed By: #### CBC, CMP #### [place] [id number] COMP METABOLIC PANEL Collected: 11/01/2017 Status: F Source: [place] 12:11 AM [facility] REPOSITORY TYPE CODE TESTS RESULT OUT OF REFERENCE UNITS RANGE LAB TP 6.3-8.0 g/dL Protein, Total 6.7 LAB ALB 3.9-4.9 g/dL Low Albumin 3.4 LAB CA 8.5-10.2 mg/dL Calcium, Total 8.6 LAB TBIL 0.2-1.3 mg/dL Bilirubin, High Total 1.5 LAB ALKP 36-108 U/L Alkaline High Phosphatase 210 LAB AST 14-40 U/L AST High 58 Result Comment: Results may be falsely increased due to interference by hemolysis. Suggest reorder as clinically indicated. LAB GLU 74-99 mg/dL High Glucose 120 Result Comment: The [place] Diabetes Association (ADA) provides guidance for cutoff values for fasting glucose and random glucose. The ADA defines fasting as no caloric intake for at least 8 hours. Fas ting plasma glucose results between 100 to 125 mg/dL indicate increased risk for diabetes (prediabetes). Fasting plasma glucose results greater than or equal to 126 mg/dL meet the criteria for diagnosis of diabetes. In the absence of unequivocal hyperglycemia, results should be confirmed by repeat testing. In a patient with classic symptoms of hyperglycemia or hyperglycemic crisis, random plasma glucose results greater than or equal to 200 mg/dL meet the criteria for diagnosis of diabetes. Reference: Standards of Medical Care in Diabetes 2016, [place] [employer] Association. Diabetes Care. 2016.39(Suppl 1). LAB BUN 9-24 mg/dL BUN High 45 LAB CRET 0.73-1.22 mg/dL Low Creatinine 0.58 LAB NA 136-144 mmol/L Sodium 143 LAB K 3.7-5.1 mmol/L Potassium 4.5 LAB CL 97-105 mmol/L Chloride High 109 LAB CO2 22-30 mmol/L Low CO2 21 LAB AGAP 9-18 mmol/L Anion Gap 13 LAB ALT 10-54 U/L ALT High 92 LAB GFRAA eGFR- Amer. >60 LAB GFRNAA . eGFR-All Other Races >60 Result Comment: eGFR (Estimated GFR) Units of measure: mL/min/1.73 meters squared eGFR is derived from the reexpressed MDRD Study equation using the following parameters: serum creatinine, age, gender and race. The creatinine assay has been calibrated to be traceable to IDMS. An eGFR <60 mL/min/1.73m2 for >3 months is consistent with chronic kidney disease. Refer to KDOQI guidelines for clinical interpretation. In patients with unstable renal function, e.g. those with acute kidney injury, the eGFR may not accurately reflect actual GFR. Performed By: #### CBC, CMP #### [facility] [address] [place], [place] [address] GASA + ALL Collected: 10/31/2017 Status: F Source: [place] FOR 8:44 PM [facility] RADIANCE USE ONLY REPOSITORY TYPE CODE TESTS RESULT OUT OF REFERENCE UNITS RANGE LAB PH 7.35-7.45 pH High 7.46 LAB PCO2 34-46 mm Hg pCO2 Low 32 LAB PO2 85-95 mm Hg pO2 High 154 LAB BE mmol/L Base Excess 0 LAB HCO3 22-26 mmol/L Bicarbonate 23 LAB CO2CT 22.0-28.0 mmol/L CO2 Content 24 LAB O2HB 95-98 % Oxyhemoglobin, Art. 98 LAB COHB 0-5.0 % Carboxyhemoglobin,A 1.3 rt LAB MHGB 0.4-1.5 % Methemoglobin Low 0.3 LAB TEMP C Temperature, Body 37.0 LAB PHTC 7.35-7.45 pH, Temp High Corrected 7.46 LAB PCO2T 34-46 mm Hg pCO2, Temp Low Correct 32 LAB PO2T mm Hg pO2, Temp Corrected 154 LAB NAB 135-146 mmol/L Sodium,Whole Bld 144 LAB KWB 3.5-5.0 mmol/L Potassium, Whole Bld 4.0 LAB HGBB 13.0-17.0 g/dL Low Hemoglobin,Total,AC 9.5 L LAB HCTB 39.0-51.0 % Hematocrit, ACL Low 29 LAB IC 1.08-1.30 mmol/L Calcium, Ion, WB 1.20 LAB GLB 60-105 mg/dL Glucose,Whole Bld High 123 LAB LACT 0.5-2.2 mmol/L Lactate 0.6 Performed By: #### ALLBG #### [facility] [address] [place], [place] [address] THERAPY NT Observed: 10/31/2017 Status: COMPLETED Source: [place] 4:42 PM [facility] REPOSITORY [facility] ID: [id number] Author: Mimi RobertsOt/LUriel Tucker Service: Occupational Therapy Author Type: Occupational Therapist Type: Therapy (PT/OT/Speech/Resp) Filed: 10/31/2017 4:47 PM Note Text: Occupational Therapy Treatment SERVICE DATE: 10/31/2017 SERVICE TIME: 1540 to 1638 [facility] Recommended Discharge Disposition: Unable to determine due to critical care status Anticipated Discharge Needs: Undetermined OT Recommendations to Nursing: Encourage patient participation with in-bed ADL?s;Passive lift to/from the chair;Utilize bed in Chair Position OT 6 Clicks Score: 9 Precautions/Activity Restrictions: Seizure;Lines/Tubes/Drains;Fall Risk;Crani;Cardiac;Sternal Precaution/Activity Restriction Comments: pt to wear helmet when mobilizing, hemicraniotomy ASSESSMENT: Patient slowly progressing with OT during stay, continuing to demonstrate limitations with Range of Motion, Strength/Tone, Cognitive/Perceptual, Balance, Coordination, Functional Mobility and Activity Tolerance, affecting their ability to complete ADLs/IADLs safely without assistance from caregivers. Pt is L karen, with R visual gaze preference (able to achieve midline, no crossing) and L neglect. Pt following simple, 1-step commands, with mod cues. Pt demonstrated poor head control and required maxA to achieve/maintain neutral positioning and totalA to perform cervical rotation. Extensive caregiver education provided during this session and PROM ther-ex for BUE. Patient Disposition at Start of Session: OOB in Chair Patient Disposition at End of Session: Supine in Bed Tolerated Full Session Without limitations Vital signs continuously monitored per ICU protocol. VSS throughout unless otherwise noted. Occupational Therapy Problem List: Cognitive Deficit;Education Deficit;Safety Deficits;Impaired Self Care;Decreased Activity Tolerance;Decreased Range Of Motion;Decreased Strength;Functional Mobility Impairment;Balance Impaired;Sensory Deficit;Motor Planning Difficulties;PROM/Positioning;Impaired Fine Motor Skills;Impaired Visual Motor Skills Patient /Caregiver Goals: Other: See Comment;Care For Self (return to PLOF) Goals for Plan of Care: Able to perform HEP with: Minimal Assistance Feeding with: Modified Independent Grooming with: Modified Independent Upper Body Bathing with: Minimal Assistance Upper Body Dressing with: Minimal Assistance Lower Body Bathing with: Maximal Assistance Lower Body Dressing with: Maximal Assistance Toilet Hygiene with: Moderate Assistance Tolerate (minutes of functional activity): 15 Functional Activity with: Minimal Assistance Additional Goal 1: Pt will visually attend to midline and L side 75% of time with min cues. Additional Goal 2: Pt will follow 100% of 1 step commands with min cues. Additional Goal 3: Pt will demonstrate increased LUE strength to 2/5 grossly. Demonstrate Competence With Education with: Verbal Cues Only Transfer: Pt will safely perform all bed mobility with modA. Progress Toward Goals: Progressing as expected Rehab Potential: Good PLAN: Treatment Frequency (times per week): 4 Current admission Treatment Interventions: Education;Neuromuscular Re-education;Cognitive Training Plan of Care developed with: Patient TREATMENT INTERVENTIONS: Therapy Diagnosis: Reduced mobility-other;Decreased activities of daily living (ADL);Muscle Weakness (generalized) Interventions Provided: Neuromuscular Reeducation (85325) Neuromuscular Re-Education (80165) Treatment Minutes: 53 4 units Skilled Intervention(s): - Provided max cues for L sided attention throughout treatment session - Extensive education provided to pt and caregivers on neuromuscular re-education, as well as rehab plans moving forward, Educated on OT goals, as well as benefits, process, and purpose of therapy - to promote independence with self care and functional tasks and increase tolerance for meaningful/functional activities. Provided education on psychosocial/cognitive benefits of therapy as well, and educated on strategies to improve orientation/enhance mental engagement while in the ICU. - Provided maxA to achieve neutral cervical positioning d/t decreases strength, positioned with pillows to promote visual attention throughout the session. - Provided max verbal and visual cues to perform visual tracking to midline, unable to track to L side, provided totalA to perform cervical rotation to L side. - Provided skilled intervention to perform PROM with LUE to increase sensory input and decrease risk of contractures, performed the following exercises: wrist and elbow flexion/extension. Educated caregivers on appropriate PROM there-ex techniques and provided printed literature detailing for further review. -Assessed specific modalities in multiple dermatomes, including: light tough/fine discrimination, hot/cold temperature, deep pressure/light touch, and proprioception. Educated on purpose of sensory and neuromuscular re-education, discussed potential challenges and occupational goals to work towards, as well as possible interventions for restoring function. -Provided multiple methods of sensory stimulation for promoting arousal/awareness, to stimulate neural recovery process. Stimulation is provided with intent of heightening purposeful responses to sensory/environmental stimuli, and to increase quantity and improve quality of movements for engagement in functional/meaningful activities. -Positioned pt optimally and educated caregivers on optimal positioning/alignment, as well as educated on importance of sitting upright for continued hemodynamic tolerance and facilitation of respiratory musculature in antigravity position. Positioned pt safely and comfortably with BUEs elevated on pillow to decrease risk of edema/skin breakdown. Total Timed Code Treatment Minutes: 53 Total Treatment Time (minutes): 58 FUNCTIONAL G CODE: OT 6 Clicks Score: 9 (10/31/171539) Self Care Current Status (G8987): CM (10/31/171539) Self Care Goal Status (G8988): CK (10/31/171539) Based on clinical assessment and the score on the 6 Clicks Functional Assessment Tool, the G code and corresponding severity modifiers are documented above. SUBJECTIVE: Current Hospital Course: Chart reviewed and no significant medical updates relevant to therapy were noted Reason for Occupational Therapy Consult: hemiparesis, generalized muscle weakness, alteration of sensation, decreased ADL's, reduced mobility Patient Report: Pt and caregivers cooperative, pleasant, and agreeable to OT. 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) Entry To Home: Stairs Number Of Stairs Into Home: 2 Number Of Stairs To Bed/Bath: 0 Tub/Shower Type: walk-in shower Prior Functional Level: Unable to Assess OBJECTIVE: Communication Deficits: (restricted response d/t trach) Orientation Deficits: Unable to assess Responsiveness: Alert;Drowsy Follows Commands: 1-step Commands;Cueing Needed Cueing to Follow Commands: Moderate Vision Deficits: Tracking deficit (R visual gaze preference, achieves midline (no crossing)) CURRENT FUNCTIONAL STATUS: Current Activities of Daily Living Assist Level Feeding Total Assistance Grooming Maximal Assistance Bathing Upper Body Maximal Assistance Bathing Lower Body Maximal Assistance Dressing Upper Body Maximal Assistance Dressing Lower Body Total Assistance Toileting Total Assistance Patient was left in bed with call light in reach, bed in low/locked position, bedrails elevated, all needs within reach, and family present. Please see discipline specific clinical documentation flowsheet for complete details for this therapy evaluation/treatment. SIGNATURE: Mimi Tucker OTR/L PATIENT NAME: Jose Gustafson DATE: October 31, 2017 TIME: 4:42 PM PAGER: [phone] GASA + ALL Collected: 10/31/2017 Status: F Source: [place] FOR 4:29 PM [facility] RADIANCE USE ONLY REPOSITORY TYPE CODE TESTS RESULT OUT OF REFERENCE UNITS RANGE LAB PH 7.35-7.45 pH 7.44 LAB PCO2 34-46 mm Hg pCO2 35 LAB PO2 85-95 mm Hg pO2 High 112 LAB BE mmol/L Base Excess 0 LAB HCO3 22-26 mmol/L Bicarbonate 23 LAB CO2CT 22.0-28.0 mmol/L CO2 Content 24 LAB O2HB 95-98 % Oxyhemoglobin, Art. 96 LAB COHB 0-5.0 % Carboxyhemoglobin,A 2.0 rt LAB MHGB 0.4-1.5 % Methemoglobin 0.8 LAB TEMP C Temperature, Body 37.0 LAB PHTC 7.35-7.45 pH, Temp Corrected 7.44 LAB PCO2T 34-46 mm Hg pCO2, Temp Correct 35 LAB PO2T mm Hg pO2, Temp Corrected 112 LAB NAB 135-146 mmol/L Sodium,Whole Bld 142 LAB KWB 3.5-5.0 mmol/L Potassium, Whole Bld 4.1 LAB HGBB 13.0-17.0 g/dL Low Hemoglobin,Total,AC 10.0 L LAB HCTB 39.0-51.0 % Hematocrit, ACL Low 31 LAB IC 1.08-1.30 mmol/L Calcium, Ion, WB 1.20 LAB GLB 60-105 mg/dL Glucose,Whole Bld High 112 LAB LACT 0.5-2.2 mmol/L Lactate 0.8 Performed By: #### ALLBG #### [facility] [address] [place], [place] [address] GASA + ALL Collected: 10/31/2017 Status: F Source: [place] FOR 12:24 PM [facility] RADIANCE USE ONLY REPOSITORY TYPE CODE TESTS RESULT OUT OF REFERENCE UNITS RANGE LAB PH 7.35-7.45 pH High 7.48 LAB PCO2 34-46 mm Hg pCO2 Low 32 LAB PO2 85-95 mm Hg pO2 93 LAB BE mmol/L Base Excess 1 LAB HCO3 22-26 mmol/L Bicarbonate 24 LAB CO2CT 22.0-28.0 mmol/L CO2 Content 25 LAB O2HB 95-98 % Oxyhemoglobin, Art. 96 LAB COHB 0-5.0 % Carboxyhemoglobin,A 1.6 rt LAB MHGB 0.4-1.5 % Methemoglobin 0.5 LAB TEMP C Temperature, Body 37.0 LAB PHTC 7.35-7.45 pH, Temp High Corrected 7.48 LAB PCO2T 34-46 mm Hg pCO2, Temp Low Correct 32 LAB PO2T mm Hg pO2, Temp Corrected 93 LAB NAB 135-146 mmol/L Sodium,Whole Bld 142 LAB KWB 3.5-5.0 mmol/L Potassium, Whole Bld 4.0 LAB HGBB 13.0-17.0 g/dL Low Hemoglobin,Total,AC 9.7 L LAB HCTB 39.0-51.0 % Hematocrit, ACL Low 30 LAB IC 1.08-1.30 mmol/L Calcium, Ion, WB 1.24 LAB GLB 60-105 mg/dL Glucose,Whole Bld High 128 LAB LACT 0.5-2.2 mmol/L Lactate 0.8 Performed By: #### ALLBG #### [facility] [address] [place], [place] [address] PROGRESS Observed: 10/31/2017 Status: COMPLETED Source: [place] 10:08 AM [facility] REPOSITORY HNO ID: [id number] Author: Ivanna Dunlap Service: Critical Care Author Type: Nurse Practitioner Type: Progress Notes Filed: 10/31/2017 11:37 AM Note Text: [facility] CV[facility] Note Name: Jose Gustafson Coordination of Care Note: Indication for Surgery: Spontaneous Rupture of Aorta LVEF: Normal RVF: Normal Important/Relevant PMH/PSH: HTN, asthma, hx kidney stones Preoperative Hospital Course (narrative): 52 yo M with PMH HTN, Asthma, and hx of kidney stones who is transferred to [facility] for 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 Procedure/Surgeries: 10/08/2017 Total arch replacement with FET under [facility] 10/08/2017 Chest exploration/Evacuation of hematoma / Open chest with wound vac 10/10/2017 Chest opened with wound VAC placement (Attempt closure, but fail due to desaturation) 10/12/2017 Right decompressive hemicraniectomy for R MCA stroke and malignant cerebral edema 10/14/2017 Chest washout and closure 10/17/2017 Tracheostomy Airway Difficulty: Grade I - No special instrumentation OR Course: Transient or mild hypotension and Coagulopathy/bleeding requiring massive resuscitation Pacing wires: Yes: Ventricular: When discontinuing pacing wires: Cut all pacing wires Postoperative Course/General Impression: (narrative or log of major events with date of onset): OR course complicated by coagulopathy requiring massive resuscitation. Arrived to CVICU with open chest. Hypotension and cardiac insufficiency required inotropic support and vasopressors, now resolved. Returned to OR 10/08 for exploration and large amount of clots. 10/10/17 Chest closure attempt failed due to desaturation.Chest closed 10/14/17. Post-op course further complicated by large right MCA infarct with associated mass effect requiring hemicraniectomy per Neurosurgery on 10/12. Respiratory failure requiring trach on 10/17. Keppra initiated empirically started but changed to vimpat due subclinical seizures and elevated LFTs. Mental status improving. Continue Ventilator weaning as tolerated. Issues to communicate at signout: LTAC possibly Saturday- awaiting approval Other Problems I Reviewed and/or Managed During This Encounter: Problem Dissection of Thoracic Aorta (Hcc) Patient with chest pain at OSH. CT chest was concerning for aortic dissection starting at the mid arch and descending in the thoracic aorta. 10/08/2017 s/p Total arch replacement with FET under [facility]; open chest 10/08/2017 Chest exploration/Evacuation of hematoma/Open chest with wound vac 10/10/2017 Chest opened with wound VAC placement (Attempt closure, but fail due to desaturation) 10/14/2017 Chest washout and closure. A/P: ASA Chronic Respiratory Failure (Hcc) 10/17/2017: Tracheotomy A/P: Continue increasing CPAP trial duration. Decreasing pressure support requirements. Continue to progress to trach collar as tolerated. Essential Hypertension Permissive hypertension: goal MAP 80-110 A/p: BP low at times BB decreased. Continue Norvasc, PRN labetalol. Acute Ischemic Right Mca Stroke (Hcc) L sided weakness 10/11; CTH with large R MCA infarct with associated mass effect. Repeat imaging with evolution of R MCA infarct with increased edema 10/12/2017 - Right decompressive hemicraniectomy for R MCA stroke and malignant cerebral edema 10/20/17 CT Petechial hemorrhage within the evolving right MCA territory infarct, unchanged. A/P: Neurology following. Mental status improving. Awake, following on rt side commands, attempting to mouth words. Frequent neuro assessments. Avoid sedatives. Permissive HTN MAP goals 80-100. Seizure (Hcc) 10/12/2017 - Right decompressive hemicraniectomy for R MCA stroke and malignant cerebral edema Keppra for seizure prophylaxis. Discontinued due to concern for sedation. 10/25/17 Subclinical seizures noted on EEG. Started Vimpat. 10/28/17 Final EEG report negative for seizures, continuous EEG discontinued. A/P: No seizure activity. Continue Vimpat. Hypernatremia A/P: Hypernatremia improving, currently 142. Continue free water flushes. Acquired Skull Defect S/p right hemicraniectomy A/P: Neurosurg signed off: helmet for discharge (orthotics consulted), follow-up in [address] Florence Sharif, flap closure will be in 2-3 months. Elevated Lfts Elevated liver enzymes while on Keppra. A/P: Keppra discontinued on 10/23. Enzymes trending down. Continue Vimpat. Severe Protein-Calorie Malnutrition (Hcc) A/P: Tolerating TF at goal. Leukocytosis Persistent fever and leukocytosis. BCx from 10/21/2017 positive for MRSE, suspect contaminant. BCx 10/25/2017 with 1/2 positive for GPC. A/P: WBC down-trending. Afebrile. Continue to monitor off antibiotics. ID signed off. PHYSICAL EXAM: Neuro: Awake and Follows commands Cardiovascular: Rhythm: regular rate and rhythm Pulmonary: Breath sounds equal and Diminished breath sounds, pinky bases Ventilator: Intubated: PCV; FiO2: 24; PEEP: 5 cmH2O; Trach Collar; HOB elevated 40 degrees: Yes; Oral care with chlorhexidine: Yes; Was sedation turned off? Yes CXR Findings: Atelectasis Bilateral, Increased Vascular Markings Bilateral and CXR personally viewed and interpreted by ICU staff Nurse Practitioner Gastrointestinal: Abdominal: Soft and Non-tender DAILY CVICU CHECKLIST VTE Prophylaxis: Pharmacologic Yes VTE Prophylaxis: Mechanical: Yes Line infection prevention: Can CVC, PAC or arterial line be removed: No Continued need for urinary catheter: Yes - clinical indication: Patient post major surgery requiring fluid balance and input and output measurement. Restraints needed: No SIGNATURE: Ivanna Dunlap CNP DATE of SERVICE: 10/31/2017 TIME of SERVICE: 10:08 AM GASA + ALL Collected: 10/31/2017 Status: F Source: [place] FOR 8:07 AM [facility] USE ONLY REPOSITORY TYPE CODE TESTS RESULT OUT OF REFERENCE UNITS RANGE LAB PH 7.35-7.45 pH High 7.46 LAB PCO2 34-46 mm Hg pCO2 35 LAB PO2 85-95 mm Hg pO2 High 126 LAB BE mmol/L Base Excess 1 LAB HCO3 22-26 mmol/L Bicarbonate 24 LAB CO2CT 22.0-28.0 mmol/L CO2 Content 26 LAB O2HB 95-98 % Oxyhemoglobin, Art. 98 LAB COHB 0-5.0 % Carboxyhemoglobin, 2.0 Art LAB MHGB 0.4-1.5 % Methemoglobin Low 0.1 LAB TEMP C Temperature, Body 37.0 LAB PHTC 7.35-7.45 pH, Temp High Corrected 7.46 LAB PCO2T 34-46 mm Hg pCO2, Temp Correct 35 LAB PO2T mm Hg pO2, Temp Corrected 126 LAB NAB 135-146 mmol/L Sodium,Whole Bld 141 LAB KWB 3.5-5.0 mmol/L Potassium, Whole Bld 3.9 LAB HGBB 13.0-17.0 g/dL Low Hemoglobin,Total,A 9.3 CL LAB HCTB 39.0-51.0 % Hematocrit, Low ACL 29 LAB IC 1.08-1.30 mmol/L Calcium, Ion, WB 1.19 LAB GLB 60-105 mg/dL Glucose,Whole High Bld 129 LAB LACT 0.5-2.2 mmol/L Lactate 0.7 LAB ACBDTE Notify Date, Art [id number] LAB ACBTME Notify Time, Art Performed By: #### ALLBG #### [facility] [address] [place], [place] [address] XR CHEST 1V FRONTAL Observed: 10/31/2017 Status: F Source: [facility] 4:53 AM [facility] REPOSITORY * * *Final Report* * * DATE OF EXAM: Oct 31 2017 4:53AM JIX [id number] - XR CHEST 1V FRONTAL PORT / PROCEDURE REASON: Postoperative state * * * * Physician Interpretation * * * * EXAMINATION: CHEST RADIOGRAPH (PORTABLE SINGLE VIEW AP) Exam Date/Time: 10/31/2017 4:53 AM Indication: Postoperative state MQ: XCP_4 Comparison: 1 day prior RESULT: See impression. IMPRESSION: Lines, tubes, and devices: Unchanged Lungs and pleura: Small pleural effusions and bibasilar atelectasis unchanged. Atelectasis or scar right upper lobe unchanged Cardiomediastinal silhouette: Normal Other: Silver Wrapper: PSCB Transcribe Date/Time: Oct 31 2017 8:55A Dictated by : GORDON SUNSHINE MD This examination was interpreted and the report reviewed and electronically signed by: GORDON SUNSHINE MD on Oct 31 2017 8:57AM EST [id number] GASA + ALL Collected: 10/31/2017 Status: F Source: [place] [address]:30 AM [facility] RADIANCE USE ONLY REPOSITORY TYPE CODE TESTS RESULT OUT OF REFERENCE UNITS RANGE LAB PH 7.35-7.45 pH High 7.47 LAB PCO2 34-46 mm Hg pCO2 Low 33 LAB PO2 85-95 mm Hg pO2 High 139 LAB BE mmol/L Base Excess 1 LAB HCO3 22-26 mmol/L Bicarbonate 24 LAB CO2CT 22.0-28.0 mmol/L CO2 Content 25 LAB O2HB 95-98 % Oxyhemoglobin, Art. 97 LAB COHB 0-5.0 % Carboxyhemoglobin,A 1.9 rt LAB MHGB 0.4-1.5 % Methemoglobin 0.9 LAB TEMP C Temperature, Body 37.0 LAB PHTC 7.35-7.45 pH, Temp High Corrected 7.47 LAB PCO2T 34-46 mm Hg pCO2, Temp Low Correct 33 LAB PO2T mm Hg pO2, Temp Corrected 139 LAB NAB 135-146 mmol/L Sodium,Whole Bld 141 LAB KWB 3.5-5.0 mmol/L Potassium, Whole Bld 4.1 LAB HGBB 13.0-17.0 g/dL Low Hemoglobin,Total,AC 9.2 L LAB HCTB 39.0-51.0 % Hematocrit, ACL Low 29 LAB IC 1.08-1.30 mmol/L Calcium, Ion, WB 1.22 LAB GLB 60-105 mg/dL Glucose,Whole Bld High 124 LAB LACT 0.5-2.2 mmol/L Lactate 0.8 Performed By: #### ALLBG #### [facility] [address] [place] [id number] CBC Collected: 10/31/2017 Status: F Source: [place] 12:25 AM [facility] REPOSITORY TYPE CODE TESTS RESULT OUT OF REFERENCE UNITS RANGE LAB WBC 3.70-11.00 k/uL WBC High 11.26 LAB RBC 4.20-6.00 m/uL Low RBC 2.90 LAB HGB 13.0-17.0 g/dL Low Hemoglobin 8.7 LAB HCT 39.0-51.0 % Low Hematocrit 27.8 LAB MCV 80.0-100.0 fL MCV 95.9 LAB MCH 26.0-34.0 pG MCH 30.0 LAB MCHC 30.5-36.0 g/dL MCHC 31.3 LAB RDWCV 11.5-15.0 % RDW-CV High 18.2 LAB PLTCT 150-400 k/uL Platelet Count 350 LAB MPV 9.0-12.7 fL MPV 9.4 LAB ABSNUC <0.01 k/uL Absolute nRBC <0.01 Performed By: #### CBC, CMP #### [facility] [address] [place], [place] [address] COMP METABOLIC PANEL Collected: 10/31/2017 Status: F Source: [place] 12:25 AM [facility] REPOSITORY TYPE CODE TESTS RESULT OUT OF REFERENCE UNITS RANGE LAB TP 6.3-8.0 g/dL Protein, Total 6.5 LAB ALB 3.9-4.9 g/dL Low Albumin 3.8 LAB CA 8.5-10.2 mg/dL Low Calcium, Total 8.4 LAB TBIL 0.2-1.3 mg/dL Bilirubin, High Total 1.7 LAB ALKP 36-108 U/L Alkaline High Phosphatase 212 LAB AST 14-40 U/L AST High 49 LAB GLU 74-99 mg/dL Glucose High 124 Result Comment: The [place] Diabetes Association (ADA) provides guidance for cutoff values for fasting glucose and random glucose. The ADA defines fasting as no caloric intake for at least 8 hours. Fas ting plasma glucose results between 100 to 125 mg/dL indicate increased risk for diabetes (prediabetes). Fasting plasma glucose results greater than or equal to 126 mg/dL meet the criteria for diagnosis of diabetes. In the absence of unequivocal hyperglycemia, results should be confirmed by repeat testing. In a patient with classic symptoms of hyperglycemia or hyperglycemic crisis, random plasma glucose results greater than or equal to 200 mg/dL meet the criteria for diagnosis of diabetes. Reference: Standards of Medical Care in Diabetes 2016, [place] [employer] Association. Diabetes Care. 2016.39(Suppl 1). LAB BUN 9-24 mg/dL BUN High 37 LAB CRET 0.73-1.22 mg/dL Low Creatinine 0.57 LAB NA 136-144 mmol/L Sodium 142 LAB K 3.7-5.1 mmol/L Potassium 4.2 LAB CL 97-105 mmol/L Chloride High 107 LAB CO2 22-30 mmol/L CO2 24 LAB AGAP 9-18 mmol/L Anion Gap 11 LAB ALT 10-54 U/L ALT High 93 LAB GFRAA eGFR- Amer. >60 LAB GFRNAA . eGFR-All Other Races >60 Result Comment: eGFR (Estimated GFR) Units of measure: mL/min/1.73 meters squared eGFR is derived from the reexpressed MDRD Study equation using the following parameters: serum creatinine, age, gender and race. The creatinine assay has been calibrated to be traceable to IDMS. An eGFR <60 mL/min/1.73m2 for >3 months is consistent with chronic kidney disease. Refer to KDOQI guidelines for clinical interpretation. In patients with unstable renal function, e.g. those with acute kidney injury, the eGFR may not accurately reflect actual GFR. Performed By: #### CBC, CMP #### [facility] [address] [place], [place] [address] GASA + ALL Collected: 10/30/2017 Status: F Source: [place] FOR 2:57 PM [facility] RADIANCE USE ONLY REPOSITORY TYPE CODE TESTS RESULT OUT OF REFERENCE UNITS RANGE LAB PH 7.35-7.45 pH 7.45 LAB PCO2 34-46 mm Hg pCO2 37 LAB PO2 85-95 mm Hg pO2 93 LAB BE mmol/L Base Excess 2 LAB HCO3 22-26 mmol/L Bicarbonate 26 LAB CO2CT 22.0-28.0 mmol/L CO2 Content 27 LAB O2HB 95-98 % Oxyhemoglobin, Art. 97 LAB COHB 0-5.0 % Carboxyhemoglobin,A 1.6 rt LAB MHGB 0.4-1.5 % Methemoglobin Low 0.0 LAB TEMP C Temperature, Body 37.0 LAB PHTC 7.35-7.45 pH, Temp Corrected 7.45 LAB PCO2T 34-46 mm Hg pCO2, Temp Correct 37 LAB PO2T mm Hg pO2, Temp Corrected 93 LAB NAB 135-146 mmol/L Sodium,Whole Bld 142 LAB KWB 3.5-5.0 mmol/L Potassium, Whole Bld 3.8 LAB HGBB 13.0-17.0 g/dL Low Hemoglobin,Total,AC 9.5 L LAB HCTB 39.0-51.0 % Hematocrit, ACL Low 29 LAB IC 1.08-1.30 mmol/L Calcium, Ion, WB 1.21 LAB GLB 60-105 mg/dL Glucose,Whole Bld High 127 LAB LACT 0.5-2.2 mmol/L Lactate 0.7 Performed By: #### ALLBG #### [facility] [address] [place], [place] [address] CASE MANAGEM Observed: 10/30/2017 Status: COMPLETED Source: [place] 1:26 PM [facility] REPOSITORY HNO ID: [id number] Author: Germain RobertsRn) HERMINIO Gamez Service: Case Management Author Type: Registered Nurse Type: Care Mgt Progress Note Filed: 10/30/2017 1:31 PM Note Text: CARE MANAGEMENT PROGRESS NOTE SERVICE DATE: 10/30/2017 SERVICE TIME: 1:26 PM LOS: 23 days Needs Prior to Discharge: Insurance Authorization Per [employer], MMO has denied LTAC level of care, peer to peer review has been requested, Dr Segovia notified to call [phone], option #1 to discuss with Planting Machine Operator. SIGNATURE: Germain Gamez RN PATIENT NAME: Jose Gustafson DATE: October 30, 2017 TIME: 1:26 PM PAGER/CONTACT #: [phone] THERAPY NT Observed: 10/30/2017 Status: COMPLETED Source: [place] 11:32 AM [facility] REPOSITORY HNO ID: [id number] Author: Sher RobertsPt) BASSAM Drummond Service: Physical Therapy Author Type: Physical Therapist Type: Therapy (PT/OT/Speech/Resp) Filed: 10/30/2017 11:41 AM Note Text: Physical Therapy Evaluation SERVICE DATE: 10/30/2017 SERVICE TIME: 1010 to 1030 ROOM: [place] [address] Recommended Discharge Disposition: Unable to determine due to critical care status Anticipated Discharge Needs: Undetermined Recommended Discharge Equipment: To Be Determined PT Recommendations to Nursing: Utilize bed in chair position;Passive lift to/from chair PT 6 Clicks Score: 6 Precautions/Activity Restrictions: Seizure;Lines/Tubes/Drains;Fall Risk;Crani;Cardiac;Sternal Precaution/Activity Restriction Comments: pt to wear helmet when mobilizing, hemicraniotomy ASSESSMENT : Patient demonstrated impaired ability to follow directions and participate in physical therapy. Patient demonstrated left sided neglect with inability to follow with his gaze to the left. Attempted to use the communication board, but the patient demonstrated difficulty using it. Patient tolerated sitting up with the bed in chair position for 8 minutes without sliding. Patient is appropriate to be sitting up in the bed in chair position to improve his respiratory function, level of alertness and trunk control. Patient may benefit from continued physical therapy while in-house. Discharge recommendations pending further mobility assessment and the patient's ability to actively participate in physical therapy. Patient left in bed, all lines intact, call mendieta in reach, RN notified. Tolerance Limited By (difficulty following directions) Physical Therapy Problem List: Education Deficit;Safety Deficits;Impaired Self Care;Decreased Activity Tolerance;Functional Mobility Impairment;Balance Impaired (Impaired motor control) Patient /Caregiver Goals: (unable to communicate) Goals for Plan of Care: Able to perform HEP with: Minimal Assistance Rolling with: Moderate Assistance Transfer supine to/from sit with: Moderate Assistance Rehab Potential: Fair PLAN: Treatment Frequency (times per week): 2 Current admission Treatment Interventions: Education;Self Care / Home Management;Energy Conservation Training;Strengthening;Functional Mobility Training;Balance Training;Neuromuscular Re-education Plan of Care developed with: Patient TREATMENT INTERVENTIONS: Therapy Diagnosis: Reduced mobility-other (Impaired motor control) Interventions Provided: Evaluation $ Evaluation-High (46741) Billed Units: 1 unit - sitting with bed in chair position working range of motion and supported sitting balance. Total Treatment Time (minutes): 20 FUNCTIONAL G CODE: PT 6 Clicks Score: 6 (10/30/17 1010) Mobility: Walking and Moving Around Current Status (G8978): CN (10/30/17 1010) Mobility: Walking and Moving Around Goal Status (G8979): CM (10/30/17 1010) Based on clinical assessment and the score on the 6 Clicks Functional Assessment Tool, the G code and corresponding severity modifiers are documented above. SUBJECTIVE: Current Hospital Course: Chart reviewed; Pt is a 52 yo M with PMH HTN, Asthma, and hx of kidney stones who is transferred to [facility] for 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 Patient's past medical history includes: Procedure/Surgeries:? 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 SIGNATURE: Sher Drummond PT PATIENT NAME: Jose Gustafson DATE: October 30, 2017 TIME: 11:32 AM PAGER/CONTACT #: [phone] GASA + ALL Collected: 10/30/2017 Status: F Source: [facility] 10:52 AM [facility] RADIANCE USE ONLY REPOSITORY TYPE CODE TESTS RESULT OUT OF REFERENCE UNITS RANGE LAB PH 7.35-7.45 pH 7.44 LAB PCO2 34-46 mm Hg pCO2 36 LAB PO2 85-95 mm Hg pO2 High 102 LAB BE mmol/L Base Excess 1 LAB HCO3 22-26 mmol/L Bicarbonate 24 LAB CO2CT 22.0-28.0 mmol/L CO2 Content 25 LAB O2HB 95-98 % Oxyhemoglobin, Art. 96 LAB COHB 0-5.0 % Carboxyhemoglobin,A 2.0 rt LAB MHGB 0.4-1.5 % Methemoglobin 0.5 LAB TEMP C Temperature, Body 37.0 LAB PHTC 7.35-7.45 pH, Temp Corrected 7.44 LAB PCO2T 34-46 mm Hg pCO2, Temp Correct 36 LAB PO2T mm Hg pO2, Temp Corrected 102 LAB NAB 135-146 mmol/L Sodium,Whole Bld 141 LAB KWB 3.5-5.0 mmol/L Potassium, Whole Bld 3.9 LAB HGBB 13.0-17.0 g/dL Low Hemoglobin,Total,AC 9.7 L LAB HCTB 39.0-51.0 % Hematocrit, ACL Low 30 LAB IC 1.08-1.30 mmol/L Calcium, Ion, WB 1.21 LAB GLB 60-105 mg/dL Glucose,Whole Bld High 130 LAB LACT 0.5-2.2 mmol/L Lactate 0.8 Performed By: #### ALLBG #### [facility] [address] [place], [place] [address] THERAPY NT Observed: 10/30/2017 Status: COMPLETED Source: [place] 10:35 AM [facility] REPOSITORY HNO ID: [id number] Author: Orquidea (Otr/L) Gencer Service: Occupational Therapy Author Type: Occupational Therapist Type: Therapy (PT/OT/Speech/Resp) Filed: 10/30/2017 10:48 AM Note Text: Occupational Therapy Treatment SERVICE DATE: 10/30/2017 SERVICE TIME: 946 to 1013 ROOM: [place] [address] Recommended Discharge Disposition: Unable to determine due to critical care status Anticipated Discharge Needs: Undetermined OT Recommendations to Nursing: Encourage patient participation with in-bed ADL?s;Passive lift to/from the chair;Utilize bed in Chair Position OT 6 Clicks Score: 9 Precautions/Activity Restrictions: Seizure;Lines/Tubes/Drains;Fall Risk;Crani;Cardiac;Sternal Precaution/Activity Restriction Comments: pt to wear helmet when mobilizing, hemicraniotomy ASSESSMENT: Patient Disposition at Start of Session: Supine in Bed;SCDs Patient Disposition at End of Session: Supine in Bed;Other: See Comment (with PT at bedside) Tolerated Full Session Without limitations Pt is L karen, with R visual gaze preference (able to achieve midline, no crossing) and L neglect. Pt following simple, 1-step commands, with mod cues. Pt demonstrated poor head control and required maxA to achieve/maintain neutral positioning and totalA to perform cervical rotation. Pt demonstrated increased frustration during session, attempted to utilize multiple communication techniques (writting, communication board) to promote effective communication, pt with increased difficulty, increased success with board. Occupational Therapy Problem List: Cognitive Deficit;Education Deficit;Safety Deficits;Impaired Self Care;Decreased Activity Tolerance;Decreased Range Of Motion;Decreased Strength;Functional Mobility Impairment;Balance Impaired;Sensory Deficit;Motor Planning Difficulties;PROM/Positioning;Impaired Fine Motor Skills;Impaired Visual Motor Skills Patient /Caregiver Goals: Other: See Comment;Care For Self (return to PLOF) Goals for Plan of Care: Able to perform HEP with: Minimal Assistance Feeding with: Modified Independent Grooming with: Modified Independent Upper Body Bathing with: Minimal Assistance Upper Body Dressing with: Minimal Assistance Lower Body Bathing with: Maximal Assistance Lower Body Dressing with: Maximal Assistance Toilet Hygiene with: Moderate Assistance Tolerate (minutes of functional activity): 15 Functional Activity with: Minimal Assistance Additional Goal 1: Pt will visually attend to midline and L side 75% of time with min cues. Additional Goal 2: Pt will follow 100% of 1 step commands with min cues. Additional Goal 3: Pt will demonstrate increased LUE strength to 2/5 grossly. Demonstrate Competence With Education with: Verbal Cues Only Transfer: Pt will safely perform all bed mobility with modA. Progress Toward Goals: Progressing as expected Rehab Potential: Good PLAN: Treatment Frequency (times per week): 3 (plus 1 PRN visit/week) Current admission Treatment Interventions: Education;Neuromuscular Re-education;Cognitive Training Plan of Care developed with: Patient TREATMENT INTERVENTIONS: Therapy Diagnosis: Reduced mobility-other;Decreased activities of daily living (ADL);Muscle Weakness (generalized) Interventions Provided: Neuromuscular Reeducation (64351) Neuromuscular Re-Education (65856) Treatment Minutes: 25 2 units Skilled Intervention(s): - Provided max cues for L sided attention throughout treatment session - Provided maxA to achieve neutral cervical positioning d/t decreases strength, positioned with pillows to promote visual attention throughout the session. - Provided max verbal and visual cues to perform visual tracking to midline, unable to track to L side, provided totalA to perform cervical rotation to L side. - Pt participated in dynamic reaching activity with RUE to increase midline and L sided attention. Initially started on pt's R side and slowly progressed to midline, pt with increased difficulty locating object placed outside of R visual field. - Provided VC's to locate L sided body parts (arm and leg) with RUE to further increased L sided attention. Provided mod cues to correctly identify L vs R side. - Provided skilled intervention to perform PROM with LUE to increase sensory input and decrease risk of contractures, performed the following exercises: wrist and elbow flexion/extension. - Provided skilled intervention to provide various communication tools to increase effective communication. Provided pt with built up handle, but pt with increased difficulty writing. Pt demonstrated increased success with communication board with large print/pictures. Total Timed Code Treatment Minutes: 25 Total Treatment Time (minutes): 27 FUNCTIONAL G CODE: OT 6 Clicks Score: 9 (10/30/17 0947) Self Care Current Status (G8987): CM (10/28/17 111) Self Care Goal Status (G8988): CK (10/28/171114) Based on clinical assessment and the score on the 6 Clicks Functional Assessment Tool, the G code and corresponding severity modifiers are documented above. SUBJECTIVE: Current Hospital Course: Chart reviewed and no significant medical updates relevant to therapy were noted Reason for Occupational Therapy Consult: hemiparesis, generalized muscle weakness, alteration of sensation, decreased ADL's, reduced mobility Patient Report: Pt nonverbal d/t trach, attempting to mouth words to communicate. 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) Entry To Home: (unable to obtain, will ask family when they arrive) OBJECTIVE: Communication Deficits: (restricted response d/t trach) Orientation Deficits: Unable to assess Responsiveness: Awake Follows Commands: 1-step Commands;Cueing Needed Cueing to Follow Commands: Moderate Vision Deficits: Tracking deficit (R visual gaze preference, achieves midline (no crossing)) Hand Dominance: Right Range Of Motion: Within Functional Limits Except Location ROM Not WFL: (all PROM WFL, AROM - trace movements in RUE) Strength: Within Functional Limits Except Location Strength Not WFL: (unable to formally assess) Tone Abnormalities: Hypotonic Site Hypotonic: L Upper Extremity;L Lower Extremity Coordination Deficits: (grossly impaired LUE) CURRENT FUNCTIONAL STATUS: Current Activities of Daily Living Assist Level Feeding Total Assistance Grooming Maximal Assistance Bathing Upper Body Maximal Assistance Bathing Lower Body Maximal Assistance Dressing Upper Body Maximal Assistance Dressing Lower Body Total Assistance Toileting Total Assistance Instrumental Activities of Daily Living Assist Level Meal/Beverage Prep Light Cleaning Laundry Medication Management with Strategies Functional Mobility Assist Level Rolling Supine to Sit Sit to Supine Scooting Sit to Stand Stand to Sit Bed to Chair Toilet/Commode Functional Mobility (not assessed this session) Please see discipline specific clinical documentation flowsheet for complete details for this therapy evaluation/treatment. SIGNATURE: GARY Oliva/Lele PATIENT NAME: Jose Gustafson DATE: October 30, 2017 TIME: 10:35 AM PAGER: [phone] PROGRESS Observed: 10/30/2017 Status: COMPLETED Source: [place] 7:46 AM [facility] [place] REPOSITORY HNO ID: [id number] Author: Ivanna Dunlap Service: Critical Care Author Type: Nurse Practitioner Type: Progress Notes Filed: 10/30/2017 7:50 AM Note Text: [facility] Note Name: Jose Gustafson Coordination of Care Note: Indication for Surgery: Spontaneous Rupture of Aorta LVEF: Normal RVF: Normal Important/Relevant PMH/PSH: HTN, asthma, hx kidney stones Preoperative Hospital Course (narrative): 52 yo M with PMH HTN, Asthma, and hx of kidney stones who is transferred to [facility] for 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 Procedure/Surgeries: 10/08/2017 Total arch replacement with FET under [facility] 10/08/2017 Chest exploration/Evacuation of hematoma / Open chest with wound vac 10/10/2017 Chest opened with wound VAC placement (Attempt closure, but fail due to desaturation) 10/12/2017 Right decompressive hemicraniectomy for R MCA stroke and malignant cerebral edema 10/14/2017 Chest washout and closure 10/17/2017 Tracheostomy Airway Difficulty: Grade I - No special instrumentation OR Course: Transient or mild hypotension and Coagulopathy/bleeding requiring massive resuscitation Pacing wires: Yes: Ventricular: When discontinuing pacing wires: Cut all pacing wires Postoperative Course/General Impression: (narrative or log of major events with date of onset): OR course complicated by coagulopathy requiring massive resuscitation. Arrived to CVICU with open chest. Hypotension and cardiac insufficiency required inotropic support and vasopressors, now resolved. Returned to OR 10/08 for exploration and large amount of clots. 10/10/17 Chest closure attempt failed due to desaturation.Chest closed 10/14/17. Post-op course further complicated by large right MCA infarct with associated mass effect requiring hemicraniectomy per Neurosurgery on 10/12. Respiratory failure requiring trach on 10/17. Ongoing encephalopathy. Hypernatremia corrected with dextrose infusion and FWF. Continuous EEG revealed no seizure like activity. Concern that Keppra may be worsening mental status and LFTs. Keppra discontinued 10/23. Subclinical seizure noted on EEG 10/25/2016. Neurology following. Vimpat started. 10/28/17 Final EEG report negative for seizures, EEG discontinued. Mental status improving. Ventilator weaning as tolerated. Issues to communicate at signout: Other Problems I Reviewed and/or Managed During This Encounter: Problem Dissection of Thoracic Aorta (Hcc) Patient with chest pain at OSH. CT chest was concerning for aortic dissection starting at the mid arch and descending in the thoracic aorta. 10/08/2017 s/p Total arch replacement with FET under [employer]; open chest 10/08/2017 Chest exploration/Evacuation of hematoma/Open chest with wound vac 10/10/2017 Chest opened with wound VAC placement (Attempt closure, but fail due to desaturation) 10/14/2017 Chest washout and closure. A/P: ASA Chronic Respiratory Failure (Hcc) 10/17/2017: Tracheotomy A/P: Continue CPAP, attempt trach collar trials as able. Essential Hypertension Permissive hypertension: goal MAP 80-110 A/P: Patient MAPs 65-70 when sleeping, otherwise MAPs 80-100. Continue BB, Norvasc, PRN labetalol Acute Ischemic Right Mca Stroke (Hcc) L sided weakness 10/11; CTH with large R MCA infarct with associated mass effect. Repeat imaging with evolution of R MCA infarct with increased edema 10/12/2017 - Right decompressive hemicraniectomy for R MCA stroke and malignant cerebral edema 10/20/17 CT Petechial hemorrhage within the evolving right MCA territory infarct, unchanged. A/P: Neurology following. Mental status improving. Awake, intermittently following commands, attempting to mouth words. Frequent neuro assessments. Avoid sedatives. Permissive HTN MAP goals 80-100. Seizure ([facility]) 10/12/2017 - Right decompressive hemicraniectomy for R MCA stroke and malignant cerebral edema Keppra for seizure prophylaxis. Discontinued due to concern for sedation. 10/25/17 Subclinical seizures noted on EEG. Started Vimpat. 10/28/17 Final EEG report negative for seizures, continuous EEG discontinued. A/P: No seizure activity noted. Continue Vimpat. Hypernatremia A/P: Hypernatremia improving, currently 140. Decreasing free water flushes today. Acquired Skull Defect S/p right hemicraniectomy A/P: Neurosurg signed off: helmet for discharge (orthotics consulted), follow-up in [address] Florence Sharif, flap closure will be in 2-3 months. Elevated Lfts Elevated liver enzymes while on Keppra. A/P: Keppra discontinued on 10/23. Enzymes trending down. Continue Vimpat. Severe Protein-Calorie Malnutrition (Hcc) A/P: Tolerating TF at goal. Leukocytosis Persistent fever and leukocytosis. BCx from 10/21/2017 positive for MRSE, suspect contaminant. BCx 10/25/2017 with 1/2 positive for GPC. A/P: WBC down-trending 11.5 today from 11.9. Afebrile. Suspect contaminant in BCx. Continue to monitor off antibiotics. ID signed off. PHYSICAL EXAM: Neuro: Awake, Follows commands Cardiovascular: Rhythm: regular rate and sinus rhythm Pulmonary: Breath sounds equal and Diminished breath sounds, pinky bases Ventilator: Intubated: PCV; FiO2: 24; PEEP: 5 cmH2O; Wean as tolerated; HOB elevated 40 degrees: Yes; Oral care with chlorhexidine: Yes; Was sedation turned off? Yes CXR Findings: Atelectasis Bilateral, Increased Vascular Markings Bilateral and CXR personally viewed and interpreted by ICU staff Nurse Practitioner Gastrointestinal: Abdominal: Soft and Bowel sounds yes DAILY CVICU CHECKLIST VTE Prophylaxis: Pharmacologic Yes VTE Prophylaxis: Mechanical: Yes Line infection prevention: Can CVC, PAC or arterial line be removed: No Continued need for urinary catheter: Yes - clinical indication: Patient post major surgery requiring fluid balance and input and output measurement. Restraints needed: No SIGNATURE: Ivanna Dunlap CNP DATE of SERVICE: 10/30/2017 TIME of SERVICE: 7:46 AM GASA + ALL Collected: 10/30/2017 Status: F Source: [place] FOR 5:18 AM [facility] USE ONLY REPOSITORY TYPE CODE TESTS RESULT OUT OF REFERENCE UNITS RANGE LAB PH 7.35-7.45 pH High 7.46 LAB PCO2 34-46 mm Hg pCO2 34 LAB PO2 85-95 mm Hg pO2 High 122 LAB BE mmol/L Base Excess 1 LAB HCO3 22-26 mmol/L Bicarbonate 24 LAB CO2CT 22.0-28.0 mmol/L CO2 Content 25 LAB O2HB 95-98 % Oxyhemoglobin, Art. 96 LAB COHB 0-5.0 % Carboxyhemoglobin,A 2.0 rt LAB MHGB 0.4-1.5 % Methemoglobin 0.8 LAB TEMP C Temperature, Body 37.0 LAB PHTC 7.35-7.45 pH, Temp High Corrected 7.46 LAB PCO2T 34-46 mm Hg pCO2, Temp Correct 34 LAB PO2T mm Hg pO2, Temp Corrected 122 LAB NAB 135-146 mmol/L Sodium,Whole Bld 141 LAB KWB 3.5-5.0 mmol/L Potassium, Whole Bld 3.9 LAB HGBB 13.0-17.0 g/dL Low Hemoglobin,Total,AC 8.7 L LAB HCTB 39.0-51.0 % Hematocrit, ACL Low 27 LAB IC 1.08-1.30 mmol/L Calcium, Ion, WB 1.21 LAB GLB 60-105 mg/dL Glucose,Whole Bld High 122 LAB LACT 0.5-2.2 mmol/L Lactate 1.0 Performed By: #### ALLBG #### [facility] [address] [place] [address] XR CHEST 1V FRONTAL Observed: 10/30/2017 Status: F Source: [facility] 4:57 AM [facility] REPOSITORY * * *Final Report* * * DATE OF EXAM: Oct 30 2017 4:57AM JIX [id number] - XR CHEST 1V FRONTAL PORT / PROCEDURE REASON: Postoperative state * * * * Physician Interpretation * * * * EXAMINATION: CHEST RADIOGRAPH (PORTABLE SINGLE VIEW AP) Exam Date/Time: 10/30/2017 4:57 AM Indication: Postoperative state MQ: XCP_4 Comparison: 1 day prior RESULT: See impression. IMPRESSION: Lines, tubes, and devices: Unchanged Lungs and pleura: Stable nodular density in the right lung base. Small bilateral pleural effusions with associated basilar atelectasis again noted, left more than right. Stable linear opacities in the right upper lobe, likely atelectasis or scarring. No pneumothorax. Cardiomediastinal silhouette: Stable cardiomediastinal silhouette. Stable endovascular stent in the descending aorta Other: Median sternotomy with stable appearance of sternal wires. Silver Wrapper: PSCB Transcribe Date/Time: Oct 30 2017 8:45A Dictated by : ABHAY SALAZAR MD This examination was interpreted and the report reviewed and electronically signed by: ABHAY SALAZAR MD on Oct 30 2017 8:46AM EST [id number] Collected: 10/30/2017 Status: F Source: [place] 12:41 AM [facility] REPOSITORY TYPE CODE TESTS RESULT OUT OF REFERENCE UNITS RANGE LAB WBC 3.70-11.00 k/uL WBC High 11.54 LAB RBC 4.20-6.00 m/uL Low RBC 2.79 LAB HGB 13.0-17.0 g/dL Low Hemoglobin 8.4 LAB HCT 39.0-51.0 % Low Hematocrit 27.1 LAB MCV 80.0-100.0 fL MCV 97.1 LAB MCH 26.0-34.0 pG MCH 30.1 LAB MCHC 30.5-36.0 g/dL MCHC 31.0 LAB RDWCV 11.5-15.0 % RDW-CV High 18.5 LAB PLTCT 150-400 k/uL Platelet Count 359 LAB MPV 9.0-12.7 fL MPV 9.9 LAB ABSNUC <0.01 k/uL Absolute nRBC <0.01 Performed By: #### CBC, CMP #### [facility] [address] [place], [place] [address] COMP METABOLIC PANEL Collected: 10/30/2017 Status: F Source: [place] 12:41 AM [facility] [place] REPOSITORY TYPE CODE TESTS RESULT OUT OF REFERENCE UNITS RANGE LAB TP 6.3-8.0 g/dL Protein, Total 7.0 LAB ALB 3.9-4.9 g/dL Low Albumin 3.5 LAB CA 8.5-10.2 mg/dL Calcium, Total 8.5 LAB TBIL 0.2-1.3 mg/dL Bilirubin, High Total 1.8 LAB ALKP 36-108 U/L Alkaline High Phosphatase 228 LAB AST 14-40 U/L AST High 53 LAB GLU 74-99 mg/dL Glucose High 124 Result Comment: The [place] Diabetes Association (ADA) provides guidance for cutoff values for fasting glucose and random glucose. The ADA defines fasting as no caloric intake for at least 8 hours. Fas ting plasma glucose results between 100 to 125 mg/dL indicate increased risk for diabetes (prediabetes). Fasting plasma glucose results greater than or equal to 126 mg/dL meet the criteria for diagnosis of diabetes. In the absence of unequivocal hyperglycemia, results should be confirmed by repeat testing. In a patient with classic symptoms of hyperglycemia or hyperglycemic crisis, random plasma glucose results greater than or equal to 200 mg/dL meet the criteria for diagnosis of diabetes. Reference: Standards of Medical Care in Diabetes 2016, [place] [employer] Association. Diabetes Care. 2016.39(Suppl 1). LAB BUN 9-24 mg/dL BUN High 33 LAB CRET 0.73-1.22 mg/dL Low Creatinine 0.60 LAB NA 136-144 mmol/L Sodium 140 LAB K 3.7-5.1 mmol/L Potassium 4.2 LAB CL 97-105 mmol/L Chloride High 106 LAB CO2 22-30 mmol/L CO2 25 LAB AGAP 9-18 mmol/L Anion Gap 9 LAB ALT 10-54 U/L ALT High 97 LAB GFRAA eGFR- Amer. >60 LAB GFRNAA . eGFR-All Other Races >60 Result Comment: eGFR (Estimated GFR) Units of measure: mL/min/1.73 meters squared eGFR is derived from the reexpressed MDRD Study equation using the following parameters: serum creatinine, age, gender and race. The creatinine assay has been calibrated to be traceable to IDMS. An eGFR <60 mL/min/1.73m2 for >3 months is consistent with chronic kidney disease. Refer to KDOQI guidelines for clinical interpretation. In patients with unstable renal function, e.g. those with acute kidney injury, the eGFR may not accurately reflect actual GFR. Performed By: #### CBC, CMP #### [facility] [address] [place] [id number] STAPH AUREUS PCR Collected: 10/30/2017 Status: F Source: [place] 12:41 AM [facility] REPOSITORY TYPE CODE TESTS RESULT OUT OF REFERENCE UNITS RANGE LAB SASRC Nasal S aureus Spec Source LAB MRSRES Negative for MRSA MRSA by PCR. PCR LAB SARES Negative for Staph Staphylococcus aureus PCR aureus by PCR. Performed By: #### SAPCR #### [facility] [address] [place], [place] [address] GASA + ALL Collected: 10/30/2017 Status: F Source: [facility] 12:29 AM [facility] RADIANCE USE ONLY REPOSITORY TYPE CODE TESTS RESULT OUT OF REFERENCE UNITS RANGE LAB PH 7.35-7.45 pH 7.43 LAB PCO2 34-46 mm Hg pCO2 37 LAB PO2 85-95 mm Hg pO2 High 142 LAB BE mmol/L Base Excess 0 LAB HCO3 22-26 mmol/L Bicarbonate 24 LAB CO2CT 22.0-28.0 mmol/L CO2 Content 25 LAB O2HB 95-98 % Oxyhemoglobin, Art. 98 LAB COHB 0-5.0 % Carboxyhemoglobin,A 2.6 rt LAB MHGB 0.4-1.5 % Methemoglobin Low 0.0 LAB TEMP C Temperature, Body 37.0 LAB PHTC 7.35-7.45 pH, Temp Corrected 7.43 LAB PCO2T 34-46 mm Hg pCO2, Temp Correct 37 LAB PO2T mm Hg pO2, Temp Corrected 142 LAB NAB 135-146 mmol/L Sodium,Whole Bld 141 LAB KWB 3.5-5.0 mmol/L Potassium, Whole Bld 4.1 LAB HGBB 13.0-17.0 g/dL Low Hemoglobin,Total,AC 9.1 L LAB HCTB 39.0-51.0 % Hematocrit, ACL Low 28 LAB IC 1.08-1.30 mmol/L Calcium, Ion, WB 1.21 LAB GLB 60-105 mg/dL Glucose,Whole Bld High 123 LAB LACT 0.5-2.2 mmol/L Lactate 0.8 Performed By: #### ALLBG #### [facility] [address] [place], [place] [address] GASA + ALL Collected: 10/29/2017 Status: F Source: [place] FOR 7:40 PM [facility] RADIANCE USE ONLY REPOSITORY TYPE CODE TESTS RESULT OUT OF REFERENCE UNITS RANGE LAB PH 7.35-7.45 pH High 7.48 LAB PCO2 34-46 mm Hg pCO2 Low 33 LAB PO2 85-95 mm Hg pO2 88 LAB BE mmol/L Base Excess 1 LAB HCO3 22-26 mmol/L Bicarbonate 24 LAB CO2CT 22.0-28.0 mmol/L CO2 Content 25 LAB O2HB 95-98 % Oxyhemoglobin, Art. 96 LAB COHB 0-5.0 % Carboxyhemoglobin,A 2.4 rt LAB MHGB 0.4-1.5 % Methemoglobin Low 0.2 LAB TEMP C Temperature, Body 37.0 LAB PHTC 7.35-7.45 pH, Temp High Corrected 7.48 LAB PCO2T 34-46 mm Hg pCO2, Temp Low Correct 33 LAB PO2T mm Hg pO2, Temp Corrected 88 LAB NAB 135-146 mmol/L Sodium,Whole Bld 141 LAB KWB 3.5-5.0 mmol/L Potassium, Whole Bld 3.9 LAB HGBB 13.0-17.0 g/dL Low Hemoglobin,Total,AC 8.7 L LAB HCTB 39.0-51.0 % Hematocrit, ACL Low 27 LAB IC 1.08-1.30 mmol/L Calcium, Ion, WB 1.18 LAB GLB 60-105 mg/dL Glucose,Whole Bld High 137 LAB LACT 0.5-2.2 mmol/L Lactate 0.8 Performed By: #### ALLBG #### [facility] [address] [place], [place] [address] GASA + ALL Collected: 10/29/2017 Status: F Source: [place] FOR 6:20 PM [facility] USE ONLY REPOSITORY TYPE CODE TESTS RESULT OUT OF REFERENCE UNITS RANGE LAB PH 7.35-7.45 pH 7.43 LAB PCO2 34-46 mm Hg pCO2 37 LAB PO2 85-95 mm Hg pO2 High 114 LAB BE mmol/L Base Excess 0 LAB HCO3 22-26 mmol/L Bicarbonate 24 LAB CO2CT 22.0-28.0 mmol/L CO2 Content 25 LAB O2HB 95-98 % Oxyhemoglobin, Art. 96 LAB COHB 0-5.0 % Carboxyhemoglobin,A 2.0 rt LAB MHGB 0.4-1.5 % Methemoglobin 0.7 LAB TEMP C Temperature, Body 37.0 LAB PHTC 7.35-7.45 pH, Temp Corrected 7.43 LAB PCO2T 34-46 mm Hg pCO2, Temp Correct 37 LAB PO2T mm Hg pO2, Temp Corrected 114 LAB NAB 135-146 mmol/L Sodium,Whole Bld 140 LAB KWB 3.5-5.0 mmol/L Potassium, Whole Bld 4.0 LAB HGBB 13.0-17.0 g/dL Low Hemoglobin,Total,AC 9.0 L LAB HCTB 39.0-51.0 % Hematocrit, ACL Low 28 LAB IC 1.08-1.30 mmol/L Calcium, Ion, WB 1.21 LAB GLB 60-105 mg/dL Glucose,Whole Bld High 142 LAB LACT 0.5-2.2 mmol/L Lactate 0.9 Performed By: #### ALLBG #### [facility] [address] [place], [place] [address] GASA + ALL Collected: 10/29/2017 Status: F Source: [place] FOR 2:37 PM [facility] RADIANCE USE ONLY REPOSITORY TYPE CODE TESTS RESULT OUT OF REFERENCE UNITS RANGE LAB PH 7.35-7.45 pH 7.44 LAB PCO2 34-46 mm Hg pCO2 36 LAB PO2 85-95 mm Hg pO2 High 117 LAB BE mmol/L Base Excess 0 LAB HCO3 22-26 mmol/L Bicarbonate 24 LAB CO2CT 22.0-28.0 mmol/L CO2 Content 25 LAB O2HB 95-98 % Oxyhemoglobin, Art. 96 LAB COHB 0-5.0 % Carboxyhemoglobin, 1.9 Art LAB MHGB 0.4-1.5 % Methemoglobin 0.8 LAB TEMP C Temperature, Body 37.0 LAB PHTC 7.35-7.45 pH, Temp Corrected 7.44 LAB PCO2T 34-46 mm Hg pCO2, Temp Correct 36 LAB PO2T mm Hg pO2, Temp Corrected 117 LAB NAB 135-146 mmol/L Sodium,Whole Bld 141 LAB KWB 3.5-5.0 mmol/L Potassium, Whole Bld 3.9 LAB HGBB 13.0-17.0 g/dL Low Hemoglobin,Total,A 9.1 CL LAB HCTB 39.0-51.0 % Hematocrit, Low ACL 28 LAB IC 1.08-1.30 mmol/L Calcium, Ion, WB 1.22 LAB GLB 60-105 mg/dL Glucose,Whole High Bld 127 LAB LACT 0.5-2.2 mmol/L Lactate 0.8 LAB ACBDTE Notify Date, Art [id number] LAB ACBTME Notify Time, Art Performed By: #### ALLBG #### [facility] [address] [place] [address] CASE MANAGEM Observed: 10/29/2017 Status: COMPLETED Source: [place] 12:17 PM [facility] REPOSITORY HNO ID: [id number] Author: Germain (Rn) HERMINIO Gamez Service: Case Management Author Type: Registered Nurse Type: Care Mgt Progress Note Filed: 10/29/2017 12:21 PM Note Text: CARE MANAGEMENT PROGRESS NOTE SERVICE DATE: 10/29/2017 SERVICE TIME: 12:18 PM LOS: 22 days FREEDOM OF CHOICE GIVEN: Yes Mrs Gustafson Financial Disclosure Provided The patient and/or family has been given the Provider List: Yes Provider List: LTAC Preference: [facility]. Needs Prior to Discharge: Accepting Facility;Discharge Transportation;Insurance Authorization LTAC choice is [facility], referral updated and sent to facility to proceed with precert, plan to discharge when obtained. CM will then need Discharge instructions and Dc Summary. SIGNATURE: Germain Gamez RN PATIENT NAME: Jose Gustafson DATE: October 29, 2017 TIME: 12:17 PM PAGER/CONTACT #: [phone] CASE MANAGEM Observed: 10/29/2017 Status: COMPLETED Source: [place] 11:35 AM [facility] REPOSITORY HNO ID: [id number] Author: Ayaka Keita (Sw) Service: Care Management Author Type: Manager Package Type: Care Mgt Progress Note Filed: 10/29/2017 11:38 AM Note Text: CARE MANAGEMENT PROGRESS NOTE SERVICE DATE: 10/29/2017 SERVICE TIME: 11:35 AM LOS: 22 days Needs Prior to Discharge: Accepting Facility;Bed Availability;Facility or Agency Choices;Discharge Transportation;Precertification Dariel spoke with pt's spouse, Dana, and dtr at the bedside. Dana stated that the family decided that they would like pt to go to [facility]. A referral will be sent via [facility]. Dariel also spoke with DAGO Rick, who stated that pt can be discharged once everything is completed from a Case Management standpoint. A pre-certification will need to be received before pt can be discharged to the LTAC. CM will continue to follow. SIGNATURE: SCARLETT Qiu PATIENT NAME: Jose Gustafson DATE: October 29, 2017 TIME: 11:35 AM PAGER/CONTACT #: [phone] PROGRESS Observed: 10/29/2017 Status: COMPLETED Source: [place] 10:44 AM [facility] REPOSITORY HNO ID: [id number] Author: Torrie Ahumada Service: (none) Author Type: Nurse Practitioner Type: Progress Notes Filed: 10/29/2017 2:18 PM Note Text: [facility] Note Name: Jose Gustafson Coordination of Care Note: Indication for Surgery: Spontaneous Rupture of Aorta LVEF: Normal RVF: Normal Important/Relevant PMH/PSH: HTN, asthma, hx kidney stones Preoperative Hospital Course (narrative): 52 yo M with PMH HTN, Asthma, and hx of kidney stones who is transferred to [facility] for 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 Procedure/Surgeries: 10/08/2017 Total arch replacement with FET under DHCA 10/08/2017 Chest exploration/Evacuation of hematoma / Open chest with wound vac 10/10/2017 Chest opened with wound VAC placement (Attempt closure, but fail due to desaturation) 10/12/2017 Right decompressive hemicraniectomy for R MCA stroke and malignant cerebral edema 10/14/2017 Chest washout and closure 10/17/2017 Tracheostomy Airway Difficulty: Grade I - No special instrumentation OR Course: Transient or mild hypotension and Coagulopathy/bleeding requiring massive resuscitation Pacing wires: Yes: Ventricular: When discontinuing pacing wires: Cut all pacing wires Postoperative Course/General Impression: (narrative or log of major events with date of onset): OR course complicated by coagulopathy requiring massive resuscitation. Arrived to CVICU with open chest. Hypotension and cardiac insufficiency required inotropic support and vasopressors, now resolved. Returned to OR 10/08 for exploration and large amount of clots. 10/10/17 Chest closure attempt failed due to desaturation.Chest closed 10/14/17. Post-op course further complicated by large right MCA infarct with associated mass effect requiring hemicraniectomy per Neurosurgery on 10/12. Respiratory failure requiring trach on 10/17. Ongoing encephalopathy. Hypernatremia corrected with dextrose infusion and FWF. Continuous EEG revealed no seizure like activity. Concern that Keppra may be worsening mental status and LFTs. Keppra discontinued 10/23. Subclinical seizure noted on EEG 10/25/2016. Neurology following. Vimpat started. 10/28/17 Final EEG report negative for seizures, EEG discontinued. Mental status improving. Ventilator weaning as tolerated. Issues to communicate at signout: Other Problems I Reviewed and/or Managed During This Encounter: Problem Dissection of Thoracic Aorta (Hcc) Patient with chest pain at OSH. CT chest was concerning for aortic dissection starting at the mid arch and descending in the thoracic aorta. 10/08/2017 s/p Total arch replacement with FET under DHCA; open chest 10/08/2017 Chest exploration/Evacuation of hematoma/Open chest with wound vac 10/10/2017 Chest opened with wound VAC placement (Attempt closure, but fail due to desaturation) 10/14/2017 Chest washout and closure. A/P: ASA Chronic Respiratory Failure (Hcc) 10/17/2017: Tracheotomy A/P: Continue CPAP. Unable to tolerate TCT at this time. Wean as tolerated. Essential Hypertension Permissive hypertension: goal MAP 80-110 A/P: Continue BB, increase Norvasc. Acute Ischemic Right Mca Stroke (Hcc) L sided weakness 10/11; CTH with large R MCA infarct with associated mass effect. Repeat imaging with evolution of R MCA infarct with increased edema 10/12/2017 - Right decompressive hemicraniectomy for R MCA stroke and malignant cerebral edema 10/20/17 CT Petechial hemorrhage within the evolving right MCA territory infarct, unchanged. A/P: Neurology following. Mental status improving. Awake, intermittently following commands, attempting to mouth words. Frequent neuro assessments. Avoid sedatives. Permissive HTN MAP goals 80-100. Seizure (Hcc) 10/12/2017 - Right decompressive hemicraniectomy for R MCA stroke and malignant cerebral edema Keppra for seizure prophylaxis. Discontinued due to concern for sedation. 10/25/17 Subclinical seizures noted on EEG. Started Vimpat. 10/28/17 Final EEG report negative for seizures, continuous EEG discontinued. A/P: No seizure activity noted. Continue Vimpat. Hypernatremia A/P: Hypernatremia improving, currently 142. Decreasing FWF. Acquired Skull Defect S/p right hemicraniectomy A/P: Neurosurg signed off: helmet for discharge (orthotics consulted), follow-up in [address] Florence Sharif, flap closure will be in 2-3 months. Elevated Lfts Elevated liver enzymes while on Keppra. A/P: Keppra discontinued on 10/23. Enzymes trending down. Continue Vimpat. Severe Protein-Calorie Malnutrition (Hcc) A/P: Tolerating TF at goal. Leukocytosis Persistent fever and leukocytosis. BCx from 10/21/2017 positive for MRSE, suspect contaminant. BCx 10/25/2017 with 1/2 positive for GPC. A/P: WBC down-trending. Afebrile. Suspect contaminant in BCx. Continue to monitor off antibiotics. ID signed off. PHYSICAL EXAM: Neuro: Awake and Follows commands Cardiovascular: Rhythm: regular rate and rhythm Pulmonary: Clear to auscultation and Breath sounds equal Ventilator: Intubated: PSV; FiO2: 24; PEEP: 5 cmH2O; Wean as tolerated.; HOB elevated 40 degrees: Yes; Oral care with chlorhexidine: Yes; Was sedation turned off? No sedation CXR Findings: Atelectasis Bilateral and CXR personally viewed and interpreted by ICU staff Nurse Practitioner Gastrointestinal: Abdominal: Soft and Non-tender DAILY CVICU CHECKLIST VTE Prophylaxis: Pharmacologic Yes VTE Prophylaxis: Mechanical: Yes Line infection prevention: Can CVC, PAC or arterial line be removed: Not indicated Continued need for urinary catheter: Yes - clinical indication: Patient post major surgery requiring fluid balance and input and output measurement. Restraints needed: No SIGNATURE: Torrie Ahumada CNP Pager [phone] DATE of SERVICE: 10/29/2017 TIME of SERVICE: 10:44 AM THERAPY NT Observed: 10/29/2017 Status: COMPLETED Source: [place] 10:16 AM [facility] REPOSITORY HNO ID: [id number] Author: Sher (Pt) BASSAM Drummond Service: Physical Therapy Author Type: Physical Therapist Type: Therapy (PT/OT/Speech/Resp) Filed: 10/29/2017 10:19 AM Note Text: PHYSICAL THERAPY MISSED VISIT SERVICE DATE: 10/29/2017 SERVICE TIME: 1016 to 1016 ROOM: J6-4-04 Attempted Evaluation. Patient not seen due to Not following commands. Patient having difficulty following one-step commands per OT note. Physical therapy will follow-up tomorrow 10/30/2017. SIGNATURE: Sher Drummond PT PATIENT NAME: Jose Gustafson DATE: October 29, 2017 TIME: 10:17 AM PAGER/CONTACT #: [phone] GASA + ALL Collected: 10/29/2017 Status: F Source: [place] FOR 9:27 AM [facility] RADIANCE USE ONLY REPOSITORY TYPE CODE TESTS RESULT OUT OF REFERENCE UNITS RANGE LAB PH 7.35-7.45 pH High 7.47 LAB PCO2 34-46 mm Hg pCO2 Low 33 LAB PO2 85-95 mm Hg pO2 High 128 LAB BE mmol/L Base Excess 1 LAB HCO3 22-26 mmol/L Bicarbonate 23 LAB CO2CT 22.0-28.0 mmol/L CO2 Content 24 LAB O2HB 95-98 % Oxyhemoglobin, Art. 97 LAB COHB 0-5.0 % Carboxyhemoglobin,A 2.1 rt LAB MHGB 0.4-1.5 % Methemoglobin 0.5 LAB TEMP C Temperature, Body 37.0 LAB PHTC 7.35-7.45 pH, Temp High Corrected 7.47 LAB PCO2T 34-46 mm Hg pCO2, Temp Low Correct 33 LAB PO2T mm Hg pO2, Temp Corrected 128 LAB NAB 135-146 mmol/L Sodium,Whole Bld 140 LAB KWB 3.5-5.0 mmol/L Potassium, Whole Bld 4.1 LAB HGBB 13.0-17.0 g/dL Low Hemoglobin,Total,AC 9.1 L LAB HCTB 39.0-51.0 % Hematocrit, ACL Low 28 LAB IC 1.08-1.30 mmol/L Calcium, Ion, WB 1.20 LAB GLB 60-105 mg/dL Glucose,Whole Bld High 124 LAB LACT 0.5-2.2 mmol/L Lactate 0.8 Performed By: #### ALLBG #### [facility] [address] [place], [place] [address] NUTRITION Observed: 10/29/2017 Status: COMPLETED Source: [place] 6:42 AM [facility] REPOSITORY HNO ID: [id number] Author: Jeremy Harrington Service: NST-Nutrition Support Team Author Type: Registered Dietitian Type: Nutrition Filed: 10/29/2017 1:14 PM Note Text: NUTRITION THERAPY REASSESSMENT SERVICE DATE: 10/29/2017 SERVICE TIME: 9:47 am RECOMMENDED MALNUTRITION DIAGNOSIS: SEVERE PROTEIN-CALORIE MALNUTRITION In the context of Acute Illness or Injury based on: Subcutaneous Fat Loss: Moderate Loss Muscle Loss Moderate Loss NUTRITION CARE PLAN: Intervention: 1. Impact Peptide @ 60 cc/hr (2160 kcal,135 g pro) Flushes per MD order, at least 30 cc Q4 for tube patency Monitor and Evaluation: Goal: Meet >75% of estimated needs Discharge Nutrition Recommendations: To be determined Per HPI: 52 yo M pmhx 52 yo M with PMH HTN, Asthma, and hx of kidney stones who is transferred to [facility] for 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 10/08/2017??Total arch replacement with FET under DHCA 10/08/2017 ?Chest exploration / Evacuation of hematoma / Open chest with wound vac 10/10/2017 ?Chest opened with wound VAC placement (Attempt closure, but fail due to desaturation) 10/12/2017??Right decompressive hemicraniectomy for R MCA stroke and malignant cerebral edema 10/14/2017 ?Chest washout and closure ? Interval History: +trach-vent. Pt continues tolerating TF at goal. Free water flushes decreased slightly as Na wnl. Dispo to LTAC in progress. ? Present Diet Order: Tube Feeding Impact Peptide 1.5 @ 60 mL/hr + 100 mL flush 6x/day ? 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 Pt received 55% of needs yesterday. 10/22: TF at goal. pt received >100% of needs the last 4 days (2137 kcal, 134 g pro) 10/29: TF continues at goal. pt received >100% of needs the last 7 days (2159 kcal, 135 g pro) ? Enteral Access: small bore nasogastric feeding tube ? GI symptoms: last BM 10/27 ? Abdominal Exam: not assessed ? Is the patient having any pain that is interfering with oral/enteral intake? Unable to assess ANTHROPOMETRICS Height: 182.9 cm (6') Admission Weight: 85 kg (187 lb 6.3 oz) Current Weight: 81 kg (178 lb 9.2 oz) Body mass index is 24.22 kg/(m2). Weight hx: per epic, wt ~190s with minor fluctuations the last year. Admitted at 187#, 85 kg. Pt is now 178# (81 kg) representing 4.8% wt loss in 1 month related to critical illness and prolonged hospitalization. IBW: 80.9?kg ?? Dosing wt: 81?kg Estimated kilocalorie needs: 4680-8194?kilocalories determined by 20-25?kcal/kg Estimated protein needs: 105-138?grams determined by 1.3-1.7 g/kg?Dosing?weight NUTRITION FOCUSED PHYSICAL EXAM: Subcutaneous Fat Loss Orbital Moderate Triceps Moderate Mid-axillary at the iliac crest Unable to determine at this time Muscle Loss Locations: Temporalis Moderate Pectoralis Moderate Deltoids Moderate Interosseous Unable to determine at this time Latissimus dorsi, trapezius Unable to determine at this time Quadriceps Moderate Gastrocnemius Moderate Potential micronutrient deficiency revealed in: Unable to determine at this time Edema: Yes Generalized Ascites: No Assessment of Functional Status: Functional capacity is unrelated to nutrition status Temperature Max in 24 hours: Temp (24hrs), Av ?C (98.6 ?F), Min:36.9 ?C (98.4 ?F), Max:37.3 ?C (99.1 ?F) BP 133/66 Pulse 77 Temp 37.3 ?C (99.1 ?F) (Oral) Resp 27 Ht 182.9 cm (6') Wt 81 kg (178 lb 9.2 oz) SpO2 98% BMI 24.22 kg/m2 Recent Labs 10/29/17 0030 GLUC 116* BUN 33* CREAT 0.60* NA 142 K 4.2 CHLOR 107* CO2 25 ALB 3.5* HB 8.3* HCT 26.5* WBC 11.90* Potential Signs of Inflammation: leukocytosis, hypoalbuminemia and imaging studies Pertinent meds: norvasc, heparin, protonix, senna, MVI ALLERGIES Allergen Reactions - Cats - Grass Pollen Itching Pressure Injury 10/22/17 1130 Coccyx (Active) Main Joaquin Units J064 10/23/2017 2:00 PM Stage Injury 2 10/28/2017 7:30 PM MNT Billing Type: Re-assess/15 min 3 units SIGNATURE: Hilda Arce Employee Relations Representative PATIENT NAME: Jose Gustafson DATE: October 29, 2017 TIME: 6:43 AM PAGER: [phone] NUTRITION THERAPY: TEACHING DIETITIAN NOTE OF PERSONAL INVOLVEMENT OF CARE. I have reviewed the progress note obtained and documented by the recruitment intern. I have discussed the case and management of the patient?s nutrition therapy with the recruitment intern. The following comments revise or confirm relevant curry components of the recruitment intern?s note. Jeremy Harrington, MS, RD, LD, CNSC Pager: [phone] XR CHEST 1V FRONTAL Observed: 10/29/2017 Status: F Source: [facility] 4:19 AM [facility] REPOSITORY * * *Final Report* * * DATE OF EXAM: Oct 29 2017 4:19AM IVANNA [id number] - XR CHEST 1V FRONTAL PORT / PROCEDURE REASON: Postoperative state * * * * Physician Interpretation * * * * EXAMINATION: CHEST RADIOGRAPH (PORTABLE SINGLE VIEW AP) Exam Date/Time: 10/29/2017 4:19 AM Indication: Postoperative state MQ: XCP_4 Comparison: 1 day prior RESULT: See impression. IMPRESSION: Lines, tubes, and devices: Stable life-support devices. Status post median sternotomy and aortic endovascular stent graft placement. Lungs and pleura: Stable opacities, likely related to small bilateral pleural effusions and bibasilar atelectasis. Rounded nodular opacity in the right lung base redemonstrated. Lucency in the left lung base redemonstrated, possibly a bullous lesion or free air. The finding is visible back to 10/22/2017 exam. Cardiomediastinal silhouette: Stable cardiomediastinal silhouette. Other: Silver Wrapper: PSCB Transcribe Date/Time: Oct 29 2017 9:20A Dictated by : LINDSAY BLAS MD This examination was interpreted and the report reviewed and electronically signed by: LINDSAY BLAS MD on Oct 29 2017 9:21AM EST [id number] GASA + ALL Collected: 10/29/2017 Status: F Source: [facility] 3:44 AM [facility] RADIANCE USE ONLY REPOSITORY TYPE CODE TESTS RESULT OUT OF REFERENCE UNITS RANGE LAB PH 7.35-7.45 pH High 7.46 LAB PCO2 34-46 mm Hg pCO2 Low 32 LAB PO2 85-95 mm Hg pO2 High 115 LAB BE mmol/L Base Excess NEG 1 LAB HCO3 22-26 mmol/L Bicarbonate 22 LAB CO2CT 22.0-28.0 mmol/L CO2 Content 23 LAB O2HB 95-98 % Oxyhemoglobin, Art. 97 LAB COHB 0-5.0 % Carboxyhemoglobin,A 2.3 rt LAB MHGB 0.4-1.5 % Methemoglobin 0.4 LAB TEMP C Temperature, Body 37.0 LAB PHTC 7.35-7.45 pH, Temp High Corrected 7.46 LAB PCO2T 34-46 mm Hg pCO2, Temp Low Correct 32 LAB PO2T mm Hg pO2, Temp Corrected 115 LAB NAB 135-146 mmol/L Sodium,Whole Bld 140 LAB KWB 3.5-5.0 mmol/L Potassium, Whole Bld 4.3 LAB HGBB 13.0-17.0 g/dL Low Hemoglobin,Total,AC 9.1 L LAB HCTB 39.0-51.0 % Hematocrit, ACL Low 28 LAB IC 1.08-1.30 mmol/L Calcium, Ion, WB 1.19 LAB GLB 60-105 mg/dL Glucose,Whole Bld High 139 LAB LACT 0.5-2.2 mmol/L Lactate 0.7 Performed By: #### ALLBG #### [facility] [address] [place], [place] [address] GASA + ALL Collected: 10/29/2017 Status: F Source: [place] FOR 12:49 AM [facility] RADIANCE USE ONLY REPOSITORY TYPE CODE TESTS RESULT OUT OF REFERENCE UNITS RANGE LAB PH 7.35-7.45 pH 7.43 LAB PCO2 34-46 mm Hg pCO2 34 LAB PO2 85-95 mm Hg pO2 High 132 LAB BE mmol/L Base Excess NEG 1 LAB HCO3 22-26 mmol/L Bicarbonate 22 LAB CO2CT 22.0-28.0 mmol/L CO2 Content 23 LAB O2HB 95-98 % Oxyhemoglobin, Art. 97 LAB COHB 0-5.0 % Carboxyhemoglobin,A 2.0 rt LAB MHGB 0.4-1.5 % Methemoglobin 0.4 LAB TEMP C Temperature, Body 37.0 LAB PHTC 7.35-7.45 pH, Temp Corrected 7.43 LAB PCO2T 34-46 mm Hg pCO2, Temp Correct 34 LAB PO2T mm Hg pO2, Temp Corrected 132 LAB NAB 135-146 mmol/L Sodium,Whole Bld 141 LAB KWB 3.5-5.0 mmol/L Potassium, Whole Bld 3.5 LAB HGBB 13.0-17.0 g/dL Low Hemoglobin,Total,AC 8.0 L LAB HCTB 39.0-51.0 % Hematocrit, ACL Low 25 LAB IC 1.08-1.30 mmol/L Calcium, Ion, WB 1.14 LAB GLB 60-105 mg/dL Glucose,Whole Bld High 107 LAB LACT 0.5-2.2 mmol/L Lactate 0.8 Performed By: #### ALLBG #### [facility] [address] [place], [place] [address] CBC Collected: 10/29/2017 Status: F Source: [place] 12:30 AM [facility] REPOSITORY TYPE CODE TESTS RESULT OUT OF REFERENCE UNITS RANGE LAB WBC 3.70-11.00 k/uL WBC High 11.90 LAB RBC 4.20-6.00 m/uL Low RBC 2.73 LAB HGB 13.0-17.0 g/dL Low Hemoglobin 8.3 LAB HCT 39.0-51.0 % Low Hematocrit 26.5 LAB MCV 80.0-100.0 fL MCV 97.1 LAB MCH 26.0-34.0 pG MCH 30.4 LAB MCHC 30.5-36.0 g/dL MCHC 31.3 LAB RDWCV 11.5-15.0 % RDW-CV High 18.4 LAB PLTCT 150-400 k/uL Platelet Count 371 LAB MPV 9.0-12.7 fL MPV 10.3 LAB ABSNUC <0.01 k/uL Absolute nRBC <0.01 Performed By: #### CBC, CMP #### [facility] [address] [place], [place] [address] COMP METABOLIC PANEL Collected: 10/29/2017 Status: F Source: [place] 12:30 AM [facility] REPOSITORY TYPE CODE TESTS RESULT OUT OF REFERENCE UNITS RANGE LAB TP 6.3-8.0 g/dL Protein, Total 6.8 LAB ALB 3.9-4.9 g/dL Low Albumin 3.5 LAB CA 8.5-10.2 mg/dL Calcium, Total 8.5 LAB TBIL 0.2-1.3 mg/dL Bilirubin, High Total 2.0 LAB ALKP 36-108 U/L Alkaline High Phosphatase 226 LAB AST 14-40 U/L AST High 60 LAB GLU 74-99 mg/dL Glucose High 116 Result Comment: The [place] Diabetes Association (ADA) provides guidance for cutoff values for fasting glucose and random glucose. The ADA defines fasting as no caloric intake for at least 8 hours. Fas ting plasma glucose results between 100 to 125 mg/dL indicate increased risk for diabetes (prediabetes). Fasting plasma glucose results greater than or equal to 126 mg/dL meet the criteria for diagnosis of diabetes. In the absence of unequivocal hyperglycemia, results should be confirmed by repeat testing. In a patient with classic symptoms of hyperglycemia or hyperglycemic crisis, random plasma glucose results greater than or equal to 200 mg/dL meet the criteria for diagnosis of diabetes. Reference: Standards of Medical Care in Diabetes 2016, [place] Diabetes Association. Diabetes Care. 2016.39(Suppl 1). LAB BUN 9-24 mg/dL BUN High 33 LAB CRET 0.73-1.22 mg/dL Low Creatinine 0.60 LAB NA 136-144 mmol/L Sodium 142 LAB K 3.7-5.1 mmol/L Potassium 4.2 LAB CL 97-105 mmol/L Chloride High 107 LAB CO2 22-30 mmol/L CO2 25 LAB AGAP 9-18 mmol/L Anion Gap 10 LAB ALT 10-54 U/L ALT High 107 LAB GFRAA eGFR- Amer. >60 LAB GFRNAA . eGFR-All Other Races >60 Result Comment: eGFR (Estimated GFR) Units of measure: mL/min/1.73 meters squared eGFR is derived from the reexpressed MDRD Study equation using the following parameters: serum creatinine, age, gender and race. The creatinine assay has been calibrated to be traceable to IDMS. An eGFR <60 mL/min/1.73m2 for >3 months is consistent with chronic kidney disease. Refer to KDOQI guidelines for clinical interpretation. In patients with unstable renal function, e.g. those with acute kidney injury, the eGFR may not accurately reflect actual GFR. Performed By: #### CBC, CMP #### [facility] [address] [place], [place] [address] GASA + ALL Collected: 10/28/2017 Status: F Source: [place] FOR 8:23 PM [facility] RADIANCE USE ONLY REPOSITORY TYPE CODE TESTS RESULT OUT OF REFERENCE UNITS RANGE LAB PH 7.35-7.45 pH 7.43 LAB PCO2 34-46 mm Hg pCO2 39 LAB PO2 85-95 mm Hg pO2 High 154 LAB BE mmol/L Base Excess 1 LAB HCO3 22-26 mmol/L Bicarbonate 25 LAB CO2CT 22.0-28.0 mmol/L CO2 Content 26 LAB O2HB 95-98 % Oxyhemoglobin, Art. 98 LAB COHB 0-5.0 % Carboxyhemoglobin,A 1.8 rt LAB MHGB 0.4-1.5 % Methemoglobin 0.4 LAB TEMP C Temperature, Body 37.0 LAB PHTC 7.35-7.45 pH, Temp Corrected 7.43 LAB PCO2T 34-46 mm Hg pCO2, Temp Correct 39 LAB PO2T mm Hg pO2, Temp Corrected 154 LAB NAB 135-146 mmol/L Sodium,Whole Bld 142 LAB KWB 3.5-5.0 mmol/L Potassium, Whole Bld 4.2 LAB HGBB 13.0-17.0 g/dL Low Hemoglobin,Total,AC 8.9 L LAB HCTB 39.0-51.0 % Hematocrit, ACL Low 28 LAB IC 1.08-1.30 mmol/L Calcium, Ion, WB 1.22 LAB GLB 60-105 mg/dL Glucose,Whole Bld High 137 LAB LACT 0.5-2.2 mmol/L Lactate 0.8 Performed By: #### ALLBG #### [facility] [address] [place], [place] [address] GASA + ALL Collected: 10/28/2017 Status: F Source: [place] FOR 5:28 PM [facility] RADIANCE USE ONLY REPOSITORY TYPE CODE TESTS RESULT OUT OF REFERENCE UNITS RANGE LAB PH 7.35-7.45 pH 7.43 LAB PCO2 34-46 mm Hg pCO2 34 LAB PO2 85-95 mm Hg pO2 High 97 LAB BE mmol/L Base Excess NEG 1 LAB HCO3 22-26 mmol/L Bicarbonate 22 LAB CO2CT 22.0-28.0 mmol/L CO2 Content 23 LAB O2HB 95-98 % Oxyhemoglobin, Art. 96 LAB COHB 0-5.0 % Carboxyhemoglobin,A 1.8 rt LAB MHGB 0.4-1.5 % Methemoglobin 0.7 LAB TEMP C Temperature, Body 37.0 LAB PHTC 7.35-7.45 pH, Temp Corrected 7.43 LAB PCO2T 34-46 mm Hg pCO2, Temp Correct 34 LAB PO2T mm Hg pO2, Temp Corrected 97 LAB NAB 135-146 mmol/L Sodium,Whole Bld 142 LAB KWB 3.5-5.0 mmol/L Potassium, Whole Bld 3.8 LAB HGBB 13.0-17.0 g/dL Low Hemoglobin,Total,AC 8.6 L LAB HCTB 39.0-51.0 % Hematocrit, ACL Low 27 LAB IC 1.08-1.30 mmol/L Calcium, Ion, WB 1.16 LAB GLB 60-105 mg/dL Glucose,Whole Bld High 122 LAB LACT 0.5-2.2 mmol/L Lactate 0.7 Performed By: #### ALLBG #### [facility] [address] [place], [place] [address] GASA + ALL Collected: 10/28/2017 Status: F Source: [place] FOR 11:48 AM [facility] RADIANCE USE ONLY REPOSITORY TYPE CODE TESTS RESULT OUT OF REFERENCE UNITS RANGE LAB PH 7.35-7.45 pH 7.43 LAB PCO2 34-46 mm Hg pCO2 37 LAB PO2 85-95 mm Hg pO2 High 144 LAB BE mmol/L Base Excess 0 LAB HCO3 22-26 mmol/L Bicarbonate 24 LAB CO2CT 22.0-28.0 mmol/L CO2 Content 25 LAB O2HB 95-98 % Oxyhemoglobin, Art. 97 LAB COHB 0-5.0 % Carboxyhemoglobin, 1.4 Art LAB MHGB 0.4-1.5 % Methemoglobin 0.8 LAB TEMP C Temperature, Body 37.0 LAB PHTC 7.35-7.45 pH, Temp Corrected 7.43 LAB PCO2T 34-46 mm Hg pCO2, Temp Correct 37 LAB PO2T mm Hg pO2, Temp Corrected 144 LAB NAB 135-146 mmol/L Sodium,Whole Bld 142 LAB KWB 3.5-5.0 mmol/L Potassium, Whole Bld 3.9 LAB HGBB 13.0-17.0 g/dL Low Hemoglobin,Total,A 8.5 CL LAB HCTB 39.0-51.0 % Hematocrit, Low ACL 27 LAB IC 1.08-1.30 mmol/L Calcium, Ion, WB 1.22 LAB GLB 60-105 mg/dL Glucose,Whole High Bld 125 LAB LACT 0.5-2.2 mmol/L Lactate 0.9 LAB ACBDTE Notify Date, Art [id number] LAB ACBTME Notify Time, Art Performed By: #### ALLBG #### [facility] [address] [place], [place] [address] THERAPY NT Observed: 10/28/2017 Status: COMPLETED Source: [place] 11:43 AM [facility] REPOSITORY HNO ID: [id number] Author: Mimi RobertsOt/LUriel Tucker Service: Occupational Therapy Author Type: Occupational Therapist Type: Therapy (PT/OT/Speech/Resp) Filed: 10/28/2017 5:09 PM Note Text: Occupational Therapy Evaluation SERVICE DATE: 10/28/2017 SERVICE TIME: 1115 to 1132 ROOM: [place] [address] Recommended Discharge Disposition: Unable to determine due to critical care status Anticipated Discharge Needs: Undetermined OT Recommendations to Nursing: Encourage patient participation with in-bed ADL?s OT 6 Clicks Score: 7 Precautions/Activity Restrictions: Seizure;Lines/Tubes/Drains;Fall Risk;Crani;Cardiac;Sternal Precaution/Activity Restriction Comments: pt to wear helmet when mobilizing, hemicraniotomy ASSESSMENT: Upon assessment, patient presents with impaired Range of Motion, Strength/Tone, Cognitive/Perceptual, Sensation, Balance, Coordination, Functional Mobility and Activity Tolerance, affecting their ability to complete ADLs/IADLs safely without assistance from caregivers. Patient requires monitoring of vital signs due to fluctuations with activity and instructions/ education regarding safe activity dosing. Pt requires additional skilled therapy during hospital stay to address current functional limitations, identify coping skills to progress through current impairments as well as to maximize independence with ADLs, functional transfers/activities within safe limits. OT will continue to follow pt while admitted to unit and recommend discharge disposition when/as appropriate. Patient Disposition at Start of Session: Supine in Bed Patient Disposition at End of Session: Supine in Bed Tolerance Limited By Physiologic Response;Alertness;Other: See Comment (unable to consistently use nonverbal methods of communicatio) Occupational Therapy Problem List: Cognitive Deficit;Education Deficit;Safety Deficits;Impaired Self Care;Decreased Activity Tolerance;Decreased Range Of Motion;Decreased Strength;Functional Mobility Impairment;Balance Impaired;Sensory Deficit;Motor Planning Difficulties;PROM/Positioning;Impaired Fine Motor Skills;Impaired Visual Motor Skills Patient /Caregiver Goals: Other: See Comment;Care For Self (return to PLOF) Goals for Plan of Care: Able to perform HEP with: Minimal Assistance Feeding with: Modified Independent Grooming with: Modified Independent Upper Body Bathing with: Minimal Assistance Upper Body Dressing with: Minimal Assistance Lower Body Bathing with: Maximal Assistance Lower Body Dressing with: Maximal Assistance Toilet Hygiene with: Moderate Assistance Tolerate (minutes of functional activity): 15 Functional Activity with: Minimal Assistance Demonstrate Competence With Education with: Verbal Cues Only Transfer: Pt will safely perform all bed mobility with modA. PLAN: Treatment Frequency (times per week): 3 (plus 1 PRN visit/week) Current admission Treatment Interventions: Education;Self Care / Home Management;Energy Conservation Training;Joint Mobility;Strengthening;Functional Mobility Training;Balance Training;Neuromuscular Re-education;Cognitive Training Plan of Care developed with: Patient TREATMENT INTERVENTIONS: Therapy Diagnosis: Reduced mobility-other;Decreased activities of daily living (ADL);Muscle Weakness (generalized) Interventions Provided: Evaluation $ Evaluation-High (14684) Billed Units: 1 unit -Decreased extraneous environmental stimuli to improve level of alertness and attention, for optimal participation in session. -Provided simple orienting information, (pt unable to use facial expressions/nod yes shake no consistently in response to multiple choice orientation questions -Assessed consciousness through skilled assessment of: intentional non-verbal communication, consistent/meaningful interactions with environment, consistent/reproducible movement to command following, localization of noxious stimuli, automatic motor responses, and visual pursuit or visual fixations. Pt unable to follow commands to complete visual pursuits. -Provided multiple methods of sensory stimulation for promoting arousal/awareness, to stimulate neural recovery process. Stimulation is provided with intent of heightening purposeful responses to sensory/environmental stimuli, and to increase quantity and improve quality of movements for engagement in functional/meaningful activities. -Assessed specific modalities in multiple dermatomes, including: light tough/fine discrimination, hot/cold temperature, deep pressure/light touch, and proprioception. Educated on purpose of sensory and neuromuscular re-education, discussed potential challenges and occupational goals to work towards, as well as possible interventions for restoring function. Total Treatment Time (minutes): 17 FUNCTIONAL G CODE: OT 6 Clicks Score: 7 (10/28/171114) Self Care Current Status (G8987): CM (10/28/171114) Self Care Goal Status (G8988): CK (10/28/17 111) Based on clinical assessment and the score on the 6 Clicks Functional Assessment Tool, the G code and corresponding severity modifiers are documented above. SUBJECTIVE: Current Hospital Course: Chart reviewed; Per EPIC: Pt is a 52 yo M with PMH HTN, Asthma, and hx of kidney stones who is transferred to [facility] for 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 ? Procedure/Surgeries: 10/08/2017 Total arch replacement with FET under DHCA 10/08/2017 Chest exploration/Evacuation of hematoma / Open chest with wound vac 10/10/2017 Chest opened with wound VAC placement (Attempt closure, but fail due to desaturation) 10/12/2017 Right decompressive hemicraniectomy for R MCA stroke and malignant cerebral edema 10/14/2017 Chest washout and closure 10/17/2017 Tracheostomy Reason for Occupational Therapy Consult: stroke path, critical care therapy Patient Report: Pt cooperative and agreeable to OT, able to intermittently follow single-step commands with min cueing. 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) Entry To Home: (unable to obtain, will ask family when they arrive) OBJECTIVE: Communication Deficits: Restricted response-endotracheal tube;Expressive Deficits Orientation Deficits: Unable to assess Responsiveness: Lethargic;Obtunded;Awake Follows Commands: 1-step Commands;Cueing Needed Cueing to Follow Commands: Maximum CURRENT FUNCTIONAL STATUS: Current Activities of Daily Living Assist Level Feeding Total Assistance Grooming Maximal Assistance Bathing Upper Body Total Assistance Bathing Lower Body Total Assistance Dressing Upper Body Total Assistance Dressing Lower Body Total Assistance Toileting Total Assistance Patient was left in bed with call light in reach, bed in low/locked position, bedrails elevated, all needs within reach, and RN present. Please see discipline specific clinical documentation flowsheet for complete details for this therapy evaluation/treatment. SIGNATURE: GARY Valladares/Lele PATIENT NAME: Jose Gustafson DATE: October 28, 2017 TIME: 11:44 AM PAGER: [phone] CASE MANAGEM Observed: 10/28/2017 Status: COMPLETED Source: [place] 11:18 AM [facility] REPOSITORY O ID: [id number] Author: Randee Royal (Rn) HERMINIO Gresham Service: Care Management Author Type: Registered Nurse Type: Care Mgt Progress Note Filed: 10/28/2017 11:25 AM Note Text: CARE MANAGEMENT PROGRESS NOTE SERVICE DATE: 10/28/2017 SERVICE TIME: 11:18 AM LOS: 21 days Needs Prior to Discharge: Accepting Facility;Bed Availability;Facility or Agency Choices;Discharge Transportation;Precertification Spoke with , Dana ([phone]). She has appointments for tomorrow to tour LTAC facilities. She will advise her choice tomorrow with anticipated discharge for Saturday pending choice availability and pre-cert. Pt remains vent dependent at this time, CPAP/PS 24% fio2. TF via corpak left nares, christian. Neurology recommending MRI brain this week, ID and wound care following. TCC/SW to follow. SIGNATURE: Randee Gresham RN PATIENT NAME: Jose Gustafson DATE: October 28, 2017 TIME: 11:18 AM PAGER/CONTACT #: [phone] PROGRESS Observed: 10/28/2017 Status: COMPLETED Source: [place] 11:15 AM [facility] REPOSITORY O ID: [id number] Author: Torrie Lugo) Brandyn Service: (none) Author Type: Nurse Practitioner Type: Progress Notes Filed: 10/28/2017 11:21 AM Note Text: [facility] Note Name: Jose Gustafson Coordination of Care Note: Indication for Surgery: Spontaneous Rupture of Aorta LVEF: Normal RVF: Normal Important/Relevant PMH/PSH: HTN, asthma, hx kidney stones Preoperative Hospital Course (narrative): 52 yo M with PMH HTN, Asthma, and hx of kidney stones who is transferred to [facility] for 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 Procedure/Surgeries: 10/08/2017 Total arch replacement with FET under DHCA 10/08/2017 Chest exploration/Evacuation of hematoma / Open chest with wound vac 10/10/2017 Chest opened with wound VAC placement (Attempt closure, but fail due to desaturation) 10/12/2017 Right decompressive hemicraniectomy for R MCA stroke and malignant cerebral edema 10/14/2017 Chest washout and closure 10/17/2017 Tracheostomy Airway Difficulty: Grade I - No special instrumentation OR Course: Transient or mild hypotension and Coagulopathy/bleeding requiring massive resuscitation Pacing wires: Yes: Ventricular: When discontinuing pacing wires: Cut all pacing wires Postoperative Course/General Impression: (narrative or log of major events with date of onset): OR course complicated by coagulopathy requiring massive resuscitation. Arrived to CVICU with open chest. Hypotension and cardiac insufficiency required inotropic support and vasopressors, now resolved. Returned to OR 10/08 for exploration and large amount of clots. 10/10/17 Chest closure attempt failed due to desaturation.Chest closed 10/14/17. Post-op course further complicated by large right MCA infarct with associated mass effect requiring hemicraniectomy per Neurosurgery on 10/12. Respiratory failure requiring trach on 10/17. Ongoing encephalopathy. Hypernatremia corrected with dextrose infusion and FWF. Continuous EEG revealed no seizure like activity. Concern that Keppra may be worsening mental status and LFTs. Keppra discontinued 10/23. Subclinical seizure noted on EEG 10/25/2016. Neurology following. Vimpat started. Continuous EEG, D/C if final report today is negative. Mental status improving. Ventilator weaning as tolerated. Issues to communicate at signout: Neurology following: Subclinical seizure - Continue Vimpat. D/C EEG if final report on 10/28 is negative Other Problems I Reviewed and/or Managed During This Encounter: Problem Dissection of Thoracic Aorta (Hcc) Patient with chest pain at OSH. CT chest was concerning for aortic dissection starting at the mid arch and descending in the thoracic aorta. 10/08/2017 s/p Total arch replacement with FET under DHCA; open chest 10/08/2017 Chest exploration/Evacuation of hematoma/Open chest with wound vac 10/10/2017 Chest opened with wound VAC placement (Attempt closure, but fail due to desaturation) 10/14/2017 Chest washout and closure. A/P: ASA Chronic Respiratory Failure (Hcc) 10/17/2017: Tracheotomy A/P: Continue CPAP. Unable to tolerate TCT at this time. Wean as tolerated. Acute Ischemic Right Mca Stroke (Hcc) L sided weakness 10/11; CTH with large R MCA infarct with associated mass effect. Repeat imaging with evolution of R MCA infarct with increased edema 10/12/2017 - Right decompressive hemicraniectomy for R MCA stroke and malignant cerebral edema 10/20/17 CT Petechial hemorrhage within the evolving right MCA territory infarct, unchanged. A/P: Neurology following. Mental status improving. Awake, intermittently following commands, attempting to mouth words. Frequent neuro assessments. Avoid sedatives. Permissive HTN MAP goals 80-100. Consider CT early this week if mental status does not continue to improve. Seizure (Hcc) 10/12/2017 - Right decompressive hemicraniectomy for R MCA stroke and malignant cerebral edema Keppra for seizure prophylaxis. Ongoing encephalopathy with unclear etiology. Hypernatremia resolved. Concern that Keppra was sedating. Keppra discontinued. 10/25/17 Subclinical seizures noted on EEG. A/P: No seizure activity noted. Continue Vimpat. D/C EEG if final report today is negative. Hypernatremia A/P: Hypernatremia improving, currently 141. Decreasing FWF. Acquired Skull Defect S/p right hemicraniectomy A/P: Neurosurg signed off: helmet for discharge (orthotics consulted), follow-up in [address] Florence Sharif, flap closure will be in 2-3 months. Elevated Lfts Elevated liver enzymes while on Keppra. A/P: Keppra discontinued on 10/23. Enzymes trending down. Continue Vimpat. Severe Protein-Calorie Malnutrition (Hcc) A/P: Tolerating TF at goal. Leukocytosis Persistent fever and leukocytosis. BCx from 10/21/2017 positive for MRSE, suspect contaminant. BCx 10/25/2017 with 1/2 positive for GPC. A/P: WBC down-trending. Afebrile. Suspect contaminant in BCx. Continue to monitor off antibiotics. PHYSICAL EXAM: Neuro: Awake and Follows commands intermittently. Cardiovascular: Rhythm: regular rate and rhythm Pulmonary: Clear to auscultation, Breath sounds equal and Diminished breath sounds bases Ventilator: N/A, patient is extubated CXR Findings: Atelectasis Bilateral and CXR personally viewed and interpreted by ICU staff Nurse Practitioner Gastrointestinal: Abdominal: Soft and Non-tender DAILY CVICU CHECKLIST VTE Prophylaxis: Pharmacologic Yes VTE Prophylaxis: Mechanical: Yes Line infection prevention: Can CVC, PAC or arterial line be removed: Not indicated Continued need for urinary catheter: Yes - clinical indication: Patient post major surgery requiring fluid balance and input and output measurement. Restraints needed: No SIGNATURE: Torrie Ahumada CNP pager [phone] DATE of SERVICE: 10/28/2017 TIME of SERVICE: 11:15 AM CONSULT PROG Observed: 10/28/2017 Status: COMPLETED Source: [place] 7:53 AM [facility] [place] REPOSITORY HNO ID: [id number] Author: Freedom Benton Service: Infectious Disease Author Type: Physician Type: Consult Progress Note Filed: 10/28/2017 12:50 PM Note Text: INFECTIOUS DISEASE CONSULT SERVICE PROGRESS NOTE Date: October 28, 2017 Patient Name: Jose Gustafson examined and assessed Interval Events: no issues overnight afebrile not responsive MEDICATIONS Medications reviewed. Current antibiotics include: none EXAMINATION: Vital signs: BP 118/57 Pulse 79 Temp 36.9 ?C (98.4 ?F) (Oral) Resp 29 Ht 182.9 cm (6') Wt 80.6 kg (177 lb 11.1 oz) SpO2 99% BMI 24.1 kg/m2 supine intubated via tracheostomy EEG leads on not communicative sternal wound stable abd quiet craniotomy surtures clean arterial line and left central line no rash but echymosis left inner thigh LABORATORY DATA: Lab reviewed procalcitionin normal MICROBIOLOGY DATA: . ? blood cx 10/21 07/30 ROVING HAULER likely contaminant blood cx 10/17 07/30 bottles C acnes no SA carriage in nares 10/14 tissue negative cx including afb BAL 10/15 NGT D Specimen #: [id number] Submitting Physician: ARPIT MCKENZIE M.D. 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 See comment ? imaging preop CTA intramural type dissection (blood within lumen and blood in right chest and around pericardium) ? CXR today chest tubes median sternotomy aortic stent in place ? CT brain pre craniomtomy reviewd hemmorhage on right ? Petechial hemorrhage within the evolving right MCA territory infarct is more conspicuous on this current exam. EEG leads on ? ? Impression/Recommendations ?? ? 52 y/o man s/p (10/07/17) total Arch replacement. 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 C/b mild hypotension requiring continued pressors and bleeding s/p multiple blood products in OR with delayed chest closure (10/14) and right cerebral hemmorhage requiring urgent craniotomy for decompression (presenting with left hemiparesis) with leukocytosis (17K) . No fevers and no steroids. Possible infection (wounds clean; lines look ok) vs aspiration (CXR no gross infiltratres). Non infectious causes include ROVING HAULER hemorrhage and dissection Has been on vancomcyin and ciprofloxacin since surgery now on zoysn for possible aspiration. ? 1. continue to observe off antibiotics as single ROVING HAULER 07/30 10/21 likely contaminant as single C acnes on and procalctionin negative will sign off call back if quesitons ? Signature: Freedom Benton MD Pager: [phone] Date of Service: October 28, 2017 XR CHEST 1V FRONTAL Observed: 10/28/2017 Status: F Source: [facility] 4:00 AM [facility] REPOSITORY * * *Final Report* * * DATE OF EXAM: Oct 28 2017 4:00AM JIX [id number] - XR CHEST 1V FRONTAL PORT / PROCEDURE REASON: Postoperative state * * * * Physician Interpretation * * * * EXAMINATION: CHEST RADIOGRAPH (PORTABLE SINGLE VIEW AP) Exam Date/Time: 10/28/2017 4:00 AM Indication: Postoperative state MQ: XCP_4 Comparison: 10/27/2017 at 0010 hours RESULT: See impression. IMPRESSION: Lines, tubes, and devices: Temporary epicardial pacing leads/wires are noted. Feeding tube extends below the diaphragm. Tracheostomy catheter remains in place. Left subclavian central venous catheter tip in SVC. Lungs and pleura: There are small bilateral pleural effusions, left larger than right with adjacent atelectasis. Prominence of the interstitial markings, likely related to mild interstitial pulmonary edema, unchanged. Rounded lucency at the left lung base, possibly related to loculated left basilar pneumothorax or loculated subdiaphragmatic air, unchanged. Cardiomediastinal silhouette: Cardiomediastinal silhouette is stable in size. Status post median sternotomy and probable elephant trunk procedure, with endovascular stent graft material seen within the aortic arch and proximal descending thoracic aorta. Other: Surgical clips seen within the right subclavian/axillary region. Silver Wrapper: PSCB Transcribe Date/Time: Oct 28 2017 8:19A Dictated by : ANNA CARTRE MD This examination was interpreted and the report reviewed and electronically signed by: ANNA CARTER MD on Oct 28 2017 8:22AM EST [id number] ALL Collected: 10/28/2017 Status: F Source: [facility] 3:51 AM [facility] RADIANCE USE ONLY REPOSITORY TYPE CODE TESTS RESULT OUT OF REFERENCE UNITS RANGE LAB PH 7.35-7.45 pH 7.43 LAB PCO2 34-46 mm Hg pCO2 36 LAB PO2 85-95 mm Hg pO2 High 134 LAB BE mmol/L Base Excess 0 LAB HCO3 22-26 mmol/L Bicarbonate 24 LAB CO2CT 22.0-28.0 mmol/L CO2 Content 25 LAB O2HB 95-98 % Oxyhemoglobin, Art. 97 LAB COHB 0-5.0 % Carboxyhemoglobin,A 1.7 rt LAB MHGB 0.4-1.5 % Methemoglobin 0.7 LAB TEMP C Temperature, Body 37.0 LAB PHTC 7.35-7.45 pH, Temp Corrected 7.43 LAB PCO2T 34-46 mm Hg pCO2, Temp Correct 36 LAB PO2T mm Hg pO2, Temp Corrected 134 LAB NAB 135-146 mmol/L Sodium,Whole Bld 141 LAB KWB 3.5-5.0 mmol/L Potassium, Whole Bld 4.2 LAB HGBB 13.0-17.0 g/dL Low Hemoglobin,Total,AC 8.2 L LAB HCTB 39.0-51.0 % Hematocrit, ACL Low 25 LAB IC 1.08-1.30 mmol/L Calcium, Ion, WB 1.20 LAB GLB 60-105 mg/dL Glucose,Whole Bld High 118 LAB LACT 0.5-2.2 mmol/L Lactate 0.8 Performed By: #### ALLBG #### [facility] [address] [place], [place] [address] CBC Collected: 10/28/2017 Status: F Source: [place] 12:47 AM [facility] REPOSIT[facility] TYPE CODE TESTS RESULT OUT OF REFERENCE UNITS RANGE LAB WBC 3.70-11.00 k/uL WBC High 12.58 LAB RBC 4.20-6.00 m/uL Low RBC 2.72 LAB HGB 13.0-17.0 g/dL Low Hemoglobin 8.3 LAB HCT 39.0-51.0 % Low Hematocrit 26.5 LAB MCV 80.0-100.0 fL MCV 97.4 LAB MCH 26.0-34.0 pG MCH 30.5 LAB MCHC 30.5-36.0 g/dL MCHC 31.3 LAB RDWCV 11.5-15.0 % RDW-CV High 18.3 LAB PLTCT 150-400 k/uL Platelet Count 376 LAB MPV 9.0-12.7 fL MPV 10.0 LAB ABSNUC <0.01 k/uL Absolute nRBC <0.01 Performed By: #### CBC, CMP #### [facility] [address] [place], [place] [address] COMP METABOLIC PANEL Collected: 10/28/2017 Status: F Source: [place] 12:47 AM [facility] REPOSITORY TYPE CODE TESTS RESULT OUT OF REFERENCE UNITS RANGE LAB TP 6.3-8.0 g/dL Low Protein, Total 6.2 LAB ALB 3.9-4.9 g/dL Low Albumin 3.4 LAB CA 8.5-10.2 mg/dL Low Calcium, Total 8.4 LAB TBIL 0.2-1.3 mg/dL Bilirubin, High Total 2.0 LAB ALKP 36-108 U/L Alkaline High Phosphatase 213 LAB AST 14-40 U/L AST High 68 LAB GLU 74-99 mg/dL Glucose High 117 Result Comment: The [place] [employer] (ADA) provides guidance for cutoff values for fasting glucose and random glucose. The ADA defines fasting as no caloric intake for at least 8 hours. Fas ting plasma glucose results between 100 to 125 mg/dL indicate increased risk for diabetes (prediabetes). Fasting plasma glucose results greater than or equal to 126 mg/dL meet the criteria for diagnosis of diabetes. In the absence of unequivocal hyperglycemia, results should be confirmed by repeat testing. In a patient with classic symptoms of hyperglycemia or hyperglycemic crisis, random plasma glucose results greater than or equal to 200 mg/dL meet the criteria for diagnosis of diabetes. Reference: Standards of Medical Care in Diabetes 2016, [place] [employer]. Diabetes Care. 2016.39(Suppl 1). LAB BUN 9-24 mg/dL BUN High 33 LAB CRET 0.73-1.22 mg/dL Low Creatinine 0.62 LAB NA 136-144 mmol/L Sodium 141 LAB K 3.7-5.1 mmol/L Potassium 4.1 LAB CL 97-105 mmol/L Chloride High 110 LAB CO2 22-30 mmol/L CO2 23 LAB AGAP 9-18 mmol/L Low Anion Gap 8 LAB ALT 10-54 U/L ALT High 112 LAB GFRAA eGFR- Amer. >60 LAB GFRNAA . eGFR-All Other Races >60 Result Comment: eGFR (Estimated GFR) Units of measure: mL/min/1.73 meters squared eGFR is derived from the reexpressed MDRD Study equation using the following parameters: serum creatinine, age, gender and race. The creatinine assay has been calibrated to be traceable to IDMS. An eGFR <60 mL/min/1.73m2 for >3 months is consistent with chronic kidney disease. Refer to KDOQI guidelines for clinical interpretation. In patients with unstable renal function, e.g. those with acute kidney injury, the eGFR may not accurately reflect actual GFR. Performed By: #### CBC, CMP #### [facility] [address] [place], [place] [address] GASA + ALL Collected: 10/27/2017 Status: F Source: [place] FOR 11:23 PM [facility] USE ONLY REPOSITORY TYPE CODE TESTS RESULT OUT OF REFERENCE UNITS RANGE LAB PH 7.35-7.45 pH 7.42 LAB PCO2 34-46 mm Hg pCO2 35 LAB PO2 85-95 mm Hg pO2 High 143 LAB BE mmol/L Base Excess NEG 2 LAB HCO3 22-26 mmol/L Bicarbonate 22 LAB CO2CT 22.0-28.0 mmol/L CO2 Content 23 LAB O2HB 95-98 % Oxyhemoglobin, Art. 98 LAB COHB 0-5.0 % Carboxyhemoglobin,A 1.8 rt LAB MHGB 0.4-1.5 % Methemoglobin Low 0.0 LAB TEMP C Temperature, Body 37.0 LAB PHTC 7.35-7.45 pH, Temp Corrected 7.42 LAB PCO2T 34-46 mm Hg pCO2, Temp Correct 35 LAB PO2T mm Hg pO2, Temp Corrected 143 LAB NAB 135-146 mmol/L Sodium,Whole Bld 141 LAB KWB 3.5-5.0 mmol/L Potassium, Whole Bld 3.9 LAB HGBB 13.0-17.0 g/dL Low Hemoglobin,Total,AC 7.5 L LAB HCTB 39.0-51.0 % Hematocrit, ACL Low 23 LAB IC 1.08-1.30 mmol/L Calcium, Ion, WB 1.16 LAB GLB 60-105 mg/dL Glucose,Whole Bld High 114 LAB LACT 0.5-2.2 mmol/L Lactate 0.7 Performed By: #### ALLBG #### [facility] [address] [place], [place] [address] GASA + ALL Collected: 10/27/2017 Status: F Source: [place] FOR 8:05 PM [facility] USE ONLY REPOSITORY TYPE CODE TESTS RESULT OUT OF REFERENCE UNITS RANGE LAB PH 7.35-7.45 pH High 7.46 LAB PCO2 34-46 mm Hg pCO2 Low 28 LAB PO2 85-95 mm Hg pO2 High 135 LAB BE mmol/L Base Excess NEG 3 LAB HCO3 22-26 mmol/L Bicarbonate Low 20 LAB CO2CT 22.0-28.0 mmol/L CO2 Content Low 20 LAB O2HB 95-98 % Oxyhemoglobin, Art. 97 LAB COHB 0-5.0 % Carboxyhemoglobin,A 1.5 rt LAB MHGB 0.4-1.5 % Methemoglobin 0.9 LAB TEMP C Temperature, Body 37.0 LAB PHTC 7.35-7.45 pH, Temp High Corrected 7.46 LAB PCO2T 34-46 mm Hg pCO2, Temp Low Correct 28 LAB PO2T mm Hg pO2, Temp Corrected 135 LAB NAB 135-146 mmol/L Sodium,Whole Bld 142 LAB KWB 3.5-5.0 mmol/L Potassium, Whole Bld 4.0 LAB HGBB 13.0-17.0 g/dL Low Hemoglobin,Total,AC 7.4 L LAB HCTB 39.0-51.0 % Hematocrit, ACL Low 23 LAB IC 1.08-1.30 mmol/L Calcium, Ion, WB 1.12 LAB GLB 60-105 mg/dL Glucose,Whole Bld High 108 LAB LACT 0.5-2.2 mmol/L Lactate 0.8 Performed By: #### ALLBG #### [facility] [address] [place], [place] [address] GASA + ALL Collected: 10/27/2017 Status: F Source: [place] FOR 4:37 PM [facility] REPOSITORY TYPE CODE TESTS RESULT OUT OF REFERENCE UNITS RANGE LAB PH 7.35-7.45 pH High 7.47 LAB PCO2 34-46 mm Hg pCO2 Low 33 LAB PO2 85-95 mm Hg pO2 High 127 LAB BE mmol/L Base Excess 0 LAB HCO3 22-26 mmol/L Bicarbonate 23 LAB CO2CT 22.0-28.0 mmol/L CO2 Content 24 LAB O2HB 95-98 % Oxyhemoglobin, Art. 98 LAB COHB 0-5.0 % Carboxyhemoglobin,A 1.1 rt LAB MHGB 0.4-1.5 % Methemoglobin Low 0.0 LAB TEMP C Temperature, Body 37.0 LAB PHTC 7.35-7.45 pH, Temp High Corrected 7.47 LAB PCO2T 34-46 mm Hg pCO2, Temp Low Correct 33 LAB PO2T mm Hg pO2, Temp Corrected 127 LAB NAB 135-146 mmol/L Sodium,Whole Bld 140 LAB KWB 3.5-5.0 mmol/L Potassium, Whole Bld 3.9 LAB HGBB 13.0-17.0 g/dL Low Hemoglobin,Total,AC 8.0 L LAB HCTB 39.0-51.0 % Hematocrit, ACL Low 25 LAB IC 1.08-1.30 mmol/L Calcium, Ion, WB 1.19 LAB GLB 60-105 mg/dL Glucose,Whole Bld High 118 LAB LACT 0.5-2.2 mmol/L Lactate 0.9 Performed By: #### ALLBG #### [facility] [address] [place], [place] [address] PROGRESS Observed: 10/27/2017 Status: COMPLETED Source: [place] 8:34 AM [facility] REPOSITORY HNO ID: [id number] Author: Ling Velázquez Service: Critical Care Author Type: Nurse Practitioner Type: Progress Notes Filed: 10/27/2017 8:39 AM Note Text: [facility] Note Name: Jose Gustafson Coordination of Care Note: Indication for Surgery: Spontaneous Rupture of Aorta LVEF: Normal RVF: Normal Important/Relevant PMH/PSH: HTN, asthma, hx kidney stones Preoperative Hospital Course (narrative): 52 yo M with PMH HTN, Asthma, and hx of kidney stones who is transferred to [facility] for 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 Procedure/Surgeries: 10/08/2017 Total arch replacement with FET under DHCA 10/08/2017 Chest exploration/Evacuation of hematoma / Open chest with wound vac 10/10/2017 Chest opened with wound VAC placement (Attempt closure, but fail due to desaturation) 10/12/2017 Right decompressive hemicraniectomy for R MCA stroke and malignant cerebral edema 10/14/2017 Chest washout and closure 10/17/2017 Tracheostomy Airway Difficulty: Grade I - No special instrumentation OR Course: Transient or mild hypotension and Coagulopathy/bleeding requiring massive resuscitation Pacing wires: Yes: Ventricular: When discontinuing pacing wires: Cut all pacing wires Postoperative Course/General Impression: (narrative or log of major events with date of onset): OR course complicated by coagulopathy requiring massive resuscitation. Arrived to CVICU with open chest. Hypotension and cardiac insufficiency required inotropic support and vasopressors, now resolved. Returned to OR 10/08 for exploration and large amount of clots. 10/10/17 Chest closure attempt failed due to desaturation.Chest closed 10/14/17. Post-op course further complicated by large right MCA infarct with associated mass effect requiring hemicraniectomy per Neurosurgery on 10/12. Respiratory failure requiring trach on 10/17. Ongoing encephalopathy. Hypernatremia corrected with dextrose infusion and FWF. Continuous EEG revealed no seizure like activity. Concern that Keppra may be worsening mental status and LFTs. Keppra discontinued 10/23. Subclinical seizure noted on EEG 10/25/2016. Neurology aware. Vimpat started. Continue EEG. Mental status improving. Ventilator weaning as tolerated. Issues to communicate at signout: Neurology following: Subclinical seizure - Continue EEG and Vimpat. Other Problems I Reviewed and/or Managed During This Encounter: Problem Dissection of Thoracic Aorta (Hcc) Patient with chest pain at OSH. CT chest was concerning for aortic dissection starting at the mid arch and descending in the thoracic aorta. 10/08/2017 s/p Total arch replacement with FET under DHCA; open chest 10/08/2017 Chest exploration/Evacuation of hematoma/Open chest with wound vac 10/10/2017 Chest opened with wound VAC placement (Attempt closure, but fail due to desaturation) 10/14/2017 Chest washout and closure. A/P: ASA Acute Respiratory Insufficiency, Postoperative 10/17/2017: Tracheotomy A/P: Continue CPAP. Unable to tolerate TCT at this time. Advance as tolerated. Acute Ischemic Right Mca Stroke (Hcc) L sided weakness 10/11; CTH with large R MCA infarct with associated mass effect. Repeat imaging with evolution of R MCA infarct with increased edema 10/12/2017 - Right decompressive hemicraniectomy for R MCA stroke and malignant cerebral edema 10/20/17 CT Petechial hemorrhage within the evolving right MCA territory infarct, unchanged. A/P: Neurology following. Mental status improving. Awake, intermittently following commands, attempting to mouth words. Frequent neuro assessments. Avoid sedatives. Permissive HTN MAP goals 80-100. Consider CT early next week if mental status does not continue to improve. Seizure (Hcc) 10/12/2017 - Right decompressive hemicraniectomy for R MCA stroke and malignant cerebral edema Keppra for seizure prophylaxis. Ongoing encephalopathy with unclear etiology. Hypernatremia resolved. Concern that Keppra was sedating. Keppra discontinued. 10/25/17 Subclinical seizures noted on EEG. A/P: No seizure activity noted. Continue BEM and Vimpat. Hypernatremia A/P: Hypernatremia improving, currently 143. Decreasing FWF. Acquired Skull Defect S/p right hemicraniectomy A/P: Neurosurg signed off: helmet for discharge (orthotics consulted), follow-up in [address] Florence Sharif, flap closure will be in 2-3 months. Elevated Lfts Elevated liver enzymes while on Keppra. A/P: Keppra discontinued on 10/23. Enzymes trending down. Continue Vimpat. Severe Protein-Calorie Malnutrition (Hcc) A/P: Tolerating TF at goal. Leukocytosis Persistent fever and leukocytosis. BCx from 10/21/2017 positive for MRSE, suspect contaminant. BCx 10/25/2017 with 1/2 positive for GPC. A/P: WBC down-trending. Afebrile. Suspect contaminant in BCx. Continue to monitor off antibiotics. PHYSICAL EXAM: Neuro: Awake, Follows commands and Left Hemiplegia - Right side moving hand and wiggling toes. Cardiovascular: Rhythm: regular rate and rhythm and Rate:sinus tachycardia Pulmonary: Clear to auscultation and Breath sounds equal Ventilator: Intubated: CPAP; FiO2: 25; PEEP: 8 cmH2O; PSV; HOB elevated 40 degrees: Yes; Oral care with chlorhexidine: Yes; Was sedation turned off? Yes CXR Findings: Atelectasis Bilateral, Increased Vascular Markings Bilateral and CXR personally viewed and interpreted by ICU staff Nurse Practitioner Gastrointestinal: Abdominal: Soft, Non-tender and Bowel sounds yes DAILY CVICU CHECKLIST VTE Prophylaxis: Pharmacologic Yes VTE Prophylaxis: Mechanical: Yes Line infection prevention: Can CVC, PAC or arterial line be removed: No Continued need for urinary catheter: Yes - clinical indication: Patient post major surgery requiring fluid balance and input and output measurement. Restraints needed: No SIGNATURE: Ling Velázquez APRN.CNP DATE of SERVICE: 10/27/2017 TIME of SERVICE: 8:34 AM GASA + ALL Collected: 10/27/2017 Status: F Source: [facility] 8:31 AM [facility] USE ONLY REPOSITORY TYPE CODE TESTS RESULT OUT OF REFERENCE UNITS RANGE LAB PH 7.35-7.45 pH High 7.49 LAB PCO2 34-46 mm Hg pCO2 Low 30 LAB PO2 85-95 mm Hg pO2 High 140 LAB BE mmol/L Base Excess 0 LAB HCO3 22-26 mmol/L Bicarbonate 23 LAB CO2CT 22.0-28.0 mmol/L CO2 Content 24 LAB O2HB 95-98 % Oxyhemoglobin, Art. 97 LAB COHB 0-5.0 % Carboxyhemoglobin,A 1.2 rt LAB MHGB 0.4-1.5 % Methemoglobin 1.1 LAB TEMP C Temperature, Body 37.0 LAB PHTC 7.35-7.45 pH, Temp High Corrected 7.49 LAB PCO2T 34-46 mm Hg pCO2, Temp Low Correct 30 LAB PO2T mm Hg pO2, Temp Corrected 140 LAB NAB 135-146 mmol/L Sodium,Whole Bld 141 LAB KWB 3.5-5.0 mmol/L Potassium, Whole Bld 4.0 LAB HGBB 13.0-17.0 g/dL Low Hemoglobin,Total,AC 7.9 L LAB HCTB 39.0-51.0 % Hematocrit, ACL Low 25 LAB IC 1.08-1.30 mmol/L Calcium, Ion, WB 1.20 LAB GLB 60-105 mg/dL Glucose,Whole Bld High 122 LAB LACT 0.5-2.2 mmol/L Lactate 0.8 Performed By: #### ALLBG #### [facility] [address] [place], [place] [address] XR CHEST 1V FRONTAL Observed: 10/27/2017 Status: F Source: [facility] 1:45 AM [facility] REPOSITORY * * *Final Report* * * DATE OF EXAM: Oct 27 2017 1:45AM IVANNA [id number] - XR CHEST 1V FRONTAL PORT / PROCEDURE REASON: Postoperative state * * * * Physician Interpretation * * * * EXAMINATION: CHEST RADIOGRAPH (PORTABLE SINGLE VIEW AP) Exam Date/Time: 10/27/2017 1:45 AM Indication: Postoperative state MQ: XCP_4 Comparison: 1 day prior RESULT: See impression. IMPRESSION: Lines, tubes, and devices: Stable Lungs and pleura: Unchanged Cardiomediastinal silhouette: Stable cardiomediastinal silhouette. Other: The patient is status post median sternotomy. Silver Wrapper: PSCB Transcribe Date/Time: Oct 27 2017 11:02A Dictated by : ALIYA VELAZQUEZ MD This examination was interpreted and the report reviewed and electronically signed by: ALIYA VELAZQUEZ MD on Oct 27 2017 11:02AM EST [id number] GASA + ALL Collected: 10/27/2017 Status: F Source: [place] FOR 12:09 AM [facility] USE ONLY REPOSITORY TYPE CODE TESTS RESULT OUT OF REFERENCE UNITS RANGE LAB PH 7.35-7.45 pH 7.40 LAB PCO2 34-46 mm Hg pCO2 36 LAB PO2 85-95 mm Hg pO2 High 129 LAB BE mmol/L Base Excess NEG 2 LAB HCO3 22-26 mmol/L Bicarbonate 22 LAB CO2CT 22.0-28.0 mmol/L CO2 Content 23 LAB O2HB 95-98 % Oxyhemoglobin, Art. 97 LAB COHB 0-5.0 % Carboxyhemoglobin,A 1.2 rt LAB MHGB 0.4-1.5 % Methemoglobin 0.6 LAB TEMP C Temperature, Body 37.0 LAB PHTC 7.35-7.45 pH, Temp Corrected 7.40 LAB PCO2T 34-46 mm Hg pCO2, Temp Correct 36 LAB PO2T mm Hg pO2, Temp Corrected 129 LAB NAB 135-146 mmol/L Sodium,Whole Bld 141 LAB KWB 3.5-5.0 mmol/L Potassium, Whole Bld 3.8 LAB HGBB 13.0-17.0 g/dL Low Hemoglobin,Total,AC 8.2 L LAB HCTB 39.0-51.0 % Hematocrit, ACL Low 26 LAB IC 1.08-1.30 mmol/L Calcium, Ion, WB 1.16 LAB GLB 60-105 mg/dL Glucose,Whole Bld High 110 LAB LACT 0.5-2.2 mmol/L Lactate 0.6 Performed By: #### ALLBG #### [facility] [address] [place], [place] [address] CBC Collected: 10/27/2017 Status: F Source: [place] 12:01 [facility] REPOSITORY TYPE CODE TESTS RESULT OUT OF REFERENCE UNITS RANGE LAB WBC 3.70-11.00 k/uL WBC High 13.59 LAB RBC 4.20-6.00 m/uL Low RBC 2.80 LAB HGB 13.0-17.0 g/dL Low Hemoglobin 8.6 LAB HCT 39.0-51.0 % Low Hematocrit 27.7 LAB MCV 80.0-100.0 fL MCV 98.9 LAB MCH 26.0-34.0 pG MCH 30.7 LAB MCHC 30.5-36.0 g/dL MCHC 31.0 LAB RDWCV 11.5-15.0 % RDW-CV High 17.8 LAB PLTCT 150-400 k/uL Platelet Count 379 LAB MPV 9.0-12.7 fL MPV 10.1 LAB ABSNUC <0.01 k/uL Absolute nRBC <0.01 Performed By: #### CBC, CMP #### [facility] [address] [place], [place] [address] COMP METABOLIC PANEL Collected: 10/27/2017 Status: F Source: [place] 12:[address] [place] [address] REPOSITORY TYPE CODE TESTS RESULT OUT OF REFERENCE UNITS RANGE LAB TP 6.3-8.0 g/dL Low Protein, Total 5.8 LAB ALB 3.9-4.9 g/dL Low Albumin 2.9 LAB CA 8.5-10.2 mg/dL Low Calcium, Total 7.9 LAB TBIL 0.2-1.3 mg/dL Bilirubin, High Total 2.0 LAB ALKP 36-108 U/L Alkaline High Phosphatase 205 LAB AST 14-40 U/L AST High 78 LAB GLU 74-99 mg/dL Glucose High 114 Result Comment: The [place] Diabetes Association (ADA) provides guidance for cutoff values for fasting glucose and random glucose. The ADA defines fasting as no caloric intake for at least 8 hours. Fas ting plasma glucose results between 100 to 125 mg/dL indicate increased risk for diabetes (prediabetes). Fasting plasma glucose results greater than or equal to 126 mg/dL meet the criteria for diagnosis of diabetes. In the absence of unequivocal hyperglycemia, results should be confirmed by repeat testing. In a patient with classic symptoms of hyperglycemia or hyperglycemic crisis, random plasma glucose results greater than or equal to 200 mg/dL meet the criteria for diagnosis of diabetes. Reference: Standards of Medical Care in Diabetes 2016, [place] [employer] Association. Diabetes Care. 2016.39(Suppl 1). LAB BUN 9-24 mg/dL BUN High 35 LAB CRET 0.73-1.22 mg/dL Low Creatinine 0.64 LAB NA 136-144 mmol/L Sodium 143 LAB K 3.7-5.1 mmol/L Potassium 4.1 LAB CL 97-105 mmol/L Chloride High 112 LAB CO2 22-30 mmol/L Low CO2 21 LAB AGAP 9-18 mmol/L Anion Gap 10 LAB ALT 10-54 U/L ALT High 130 LAB GFRAA eGFR- Amer. >60 LAB GFRNAA . eGFR-All Other Races >60 Result Comment: eGFR (Estimated GFR) Units of measure: mL/min/1.73 meters squared eGFR is derived from the reexpressed MDRD Study equation using the following parameters: serum creatinine, age, gender and race. The creatinine assay has been calibrated to be traceable to IDMS. An eGFR <60 mL/min/1.73m2 for >3 months is consistent with chronic kidney disease. Refer to KDOQI guidelines for clinical interpretation. In patients with unstable renal function, e.g. those with acute kidney injury, the eGFR may not accurately reflect actual GFR. Performed By: #### CBC, CMP #### [facility] [address] [place], [place] [address] PROGRESS Observed: 10/26/2017 Status: COMPLETED Source: [place] 4:39 PM [facility] REPOSITORY O ID: [id number] Author: Torrie Ahumada Service: (none) Author Type: Nurse Practitioner Type: Progress Notes Filed: 10/26/2017 4:43 PM Note Text: [facility] CV[facility] Note Name: Jose Gustafson Coordination of Care Note: Indication for Surgery: Spontaneous Rupture of Aorta LVEF: Normal RVF: Normal Important/Relevant PMH/PSH: HTN, asthma, hx kidney stones Preoperative Hospital Course (narrative): 52 yo M with PMH HTN, Asthma, and hx of kidney stones who is transferred to [facility] for 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 Procedure/Surgeries: 10/08/2017 Total arch replacement with FET under DHCA 10/08/2017 Chest exploration/Evacuation of hematoma / Open chest with wound vac 10/10/2017 Chest opened with wound VAC placement (Attempt closure, but fail due to desaturation) 10/12/2017 Right decompressive hemicraniectomy for R MCA stroke and malignant cerebral edema 10/14/2017 Chest washout and closure 10/17/2017 Tracheostomy Airway Difficulty: Grade I - No special instrumentation OR Course: Transient or mild hypotension and Coagulopathy/bleeding requiring massive resuscitation Pacing wires: Yes: Ventricular: When discontinuing pacing wires: Cut all pacing wires Postoperative Course/General Impression: (narrative or log of major events with date of onset): OR course complicated by coagulopathy requiring massive resuscitation. Arrived to CVICU with open chest. Hypotension and cardiac insufficiency required inotropic support and vasopressors, now resolved. Returned to OR 10/08 for exploration and large amount of clots. 10/10/17 Chest closure attempt failed due to desaturation.Chest closed 10/14/17. Post-op course further complicated by large right MCA infarct with associated mass effect requiring hemicraniectomy per Neurosurgery on 10/12. Respiratory failure requiring trach on 10/17. Ongoing encephalopathy. Hypernatremia corrected with dextrose infusion and FWF. Continuous EEG revealed no seizure like activity. Concern that Keppra may be worsening mental status and LFTs. Keppra discontinued 10/23. Subclinical seizure noted on EEG 10/25/2016. Neurology aware. Vimpat started. Continue EEG. Mental status improving. Ventilator weaning as tolerated. Issues to communicate at signout: Neurology following: Subclinical seizure - Continue EEG and Vimpat. Mental status improving. Consider follow-up CT if limited improvement. Hemicraniectomy: Neurosurg signed off: helmet for discharge (orthotics consulted), follow-up in [address] Florence Sharif, flap closure will be in 2-3 months. Other Problems I Reviewed and/or Managed During This Encounter: Problem Dissection of Thoracic Aorta (Hcc) Patient with chest pain at OSH. CT chest was concerning for aortic dissection starting at the mid arch and descending in the thoracic aorta. 10/08/2017 s/p Total arch replacement with FET under DHCA; open chest 10/08/2017 Chest exploration/Evacuation of hematoma/Open chest with wound vac 10/10/2017 Chest opened with wound VAC placement (Attempt closure, but fail due to desaturation) 10/14/2017 Chest washout and closure. A/P: ASA Acute Respiratory Insufficiency, Postoperative 10/17/2017: Tracheotomy A/P: Continue CPAP. Unable to tolerate TCT at this time. Advance as tolerated. Acute Ischemic Right Mca Stroke (Hcc) L sided weakness 10/11; CTH with large R MCA infarct with associated mass effect. Repeat imaging with evolution of R MCA infarct with increased edema 10/12/2017 - Right decompressive hemicraniectomy for R MCA stroke and malignant cerebral edema 10/20/17 CT Petechial hemorrhage within the evolving right MCA territory infarct, unchanged. A/P: Neurology following. Mental status improving. Awake, intermittently following commands. Frequent neuro assessments. Avoid sedatives. Permissive HTN MAP goals 80-100. Consider CT early next week if mental status does not continue to improve. Seizure (Hcc) 10/12/2017 - Right decompressive hemicraniectomy for R MCA stroke and malignant cerebral edema Keppra for seizure prophylaxis. Ongoing encephalopathy with unclear etiology. Hypernatremia resolved. Concern that Keppra was sedating. Keppra discontinued. 10/25/17 Subclinical seizures noted on EEG. A/P: Continue BEM and Vimpat. Acquired Skull Defect S/p right hemicraniectomy A/P: Will need helmet when out of the ICU. Elevated Lfts Elevated liver enzymes while on Keppra. A/P: Keppra discontinued on 10/23. Enzymes trending down. Continue Vimpat. Severe Protein-Calorie Malnutrition (Hcc) A/P [place]. Tolerating TF at goal. Leukocytosis A/P: ID following. Persistent fever and leukocytosis. BCx from 10/21/2017 positive for MRSE, suspect contaminant. BCx 10/25/2017 with 1/2 positive for GPC. Continue to monitor off antibiotics. PHYSICAL EXAM: Neuro: Awake Intermittently following commands, Cardiovascular: Rhythm: regular rate and rhythm Pulmonary: Clear to auscultation and Breath sounds equal Ventilator: Intubated: PSV; FiO2: 255 PEEP: 8 cmH2O; PSV; HOB elevated 40 degrees: Yes; Oral care with chlorhexidine: Yes; Was sedation turned off? N/A CXR Findings: Atelectasis bilateral and CXR personally viewed and interpreted by ICU staff Nurse Practitioner Gastrointestinal: Abdominal: Soft and Non-tender DAILY CVICU CHECKLIST VTE Prophylaxis: Pharmacologic Yes VTE Prophylaxis: Mechanical: Yes Line infection prevention: Can CVC, PAC or arterial line be removed: Not indicated Continued need for urinary catheter: No - No urinary catheter present Restraints needed: No SIGNATURE: Torrie Ahumada CNP pager [phone] DATE of SERVICE: 10/26/2017 TIME of SERVICE: 4:39 PM GASA + ALL Collected: 10/26/2017 Status: F Source: [place] FOR 3:53 PM [facility] USE ONLY REPOSITORY TYPE CODE TESTS RESULT OUT OF REFERENCE UNITS RANGE LAB PH 7.35-7.45 pH 7.41 LAB PCO2 34-46 mm Hg pCO2 34 LAB PO2 85-95 mm Hg pO2 High 129 LAB BE mmol/L Base Excess NEG 3 LAB HCO3 22-26 mmol/L Bicarbonate Low 21 LAB CO2CT 22.0-28.0 mmol/L CO2 Content 22 LAB O2HB 95-98 % Oxyhemoglobin, Art. 97 LAB COHB 0-5.0 % Carboxyhemoglobin,A 1.0 rt LAB MHGB 0.4-1.5 % Methemoglobin 0.8 LAB TEMP C Temperature, Body 37.0 LAB PHTC 7.35-7.45 pH, Temp Corrected 7.41 LAB PCO2T 34-46 mm Hg pCO2, Temp Correct 34 LAB PO2T mm Hg pO2, Temp Corrected 129 LAB NAB 135-146 mmol/L Sodium,Whole Bld 141 LAB KWB 3.5-5.0 mmol/L Potassium, Whole Bld 4.1 LAB HGBB 13.0-17.0 g/dL Low Hemoglobin,Total,AC 8.5 L LAB HCTB 39.0-51.0 % Hematocrit, ACL Low 27 LAB IC 1.08-1.30 mmol/L Calcium, Ion, WB 1.16 LAB GLB 60-105 mg/dL Glucose,Whole Bld High 113 LAB LACT 0.5-2.2 mmol/L Lactate 1.0 Performed By: #### ALLBG #### [facility] [address] [place], [place] [address] SODIUM Collected: 10/26/2017 Status: F Source: [place] 3:50 PM [facility] REPOSITORY TYPE CODE TESTS RESULT OUT OF REFERENCE UNITS RANGE LAB NA 136-144 mmol/L Sodium 143 Performed By: #### NA #### [facility] [address] [place], [place] [address] GASA + ALL Collected: 10/26/2017 Status: F Source: [place] FOR 11:41 AM [facility] USE ONLY REPOSITORY TYPE CODE TESTS RESULT OUT OF REFERENCE UNITS RANGE LAB PH 7.35-7.45 pH 7.42 LAB PCO2 34-46 mm Hg pCO2 Low 33 LAB PO2 85-95 mm Hg pO2 High 131 LAB BE mmol/L Base Excess NEG 2 LAB HCO3 22-26 mmol/L Bicarbonate Low 21 LAB CO2CT 22.0-28.0 mmol/L CO2 Content 22 LAB O2HB 95-98 % Oxyhemoglobin, Art. 97 LAB COHB 0-5.0 % Carboxyhemoglobin, 1.8 Art LAB MHGB 0.4-1.5 % Methemoglobin Low 0.3 LAB TEMP C Temperature, Body 37.0 LAB PHTC 7.35-7.45 pH, Temp Corrected 7.42 LAB PCO2T 34-46 mm Hg pCO2, Temp Low Correct 33 LAB PO2T mm Hg pO2, Temp Corrected 131 LAB NAB 135-146 mmol/L Sodium,Whole Bld 142 LAB KWB 3.5-5.0 mmol/L Potassium, Whole Bld 4.4 LAB HGBB 13.0-17.0 g/dL Low Hemoglobin,Total,A 8.5 CL LAB HCTB 39.0-51.0 % Hematocrit, Low ACL 26 LAB IC 1.08-1.30 mmol/L Calcium, Ion, WB 1.19 LAB GLB 60-105 mg/dL Glucose,Whole High Bld 119 LAB LACT 0.5-2.2 mmol/L Lactate 1.1 LAB ACBDTE Notify Date, Art [id number] LAB ACBTME Notify Time, Art Performed By: #### ALLBG #### [facility] [address] [place], [place] [address] SODIUM Collected: 10/26/2017 Status: F Source: [place] 11:28 AM [facility] [facility] REPOSITORY TYPE CODE TESTS RESULT OUT OF REFERENCE UNITS RANGE LAB NA 136-144 mmol/L High Sodium 145 Performed By: #### NA #### [facility] [address] [place], [place] [address] GASA + ALL Collected: 10/26/2017 Status: F Source: [place] FOR 9:03 AM [facility] RADIANCE USE ONLY REPOSITORY TYPE CODE TESTS RESULT OUT OF REFERENCE UNITS RANGE LAB PH 7.35-7.45 pH 7.40 LAB PCO2 34-46 mm Hg pCO2 36 LAB PO2 85-95 mm Hg pO2 High 139 LAB BE mmol/L Base Excess NEG 2 LAB HCO3 22-26 mmol/L Bicarbonate 22 LAB CO2CT 22.0-28.0 mmol/L CO2 Content 23 LAB O2HB 95-98 % Oxyhemoglobin, Art. 96 LAB COHB 0-5.0 % Carboxyhemoglobin, 1.5 Art LAB MHGB 0.4-1.5 % Methemoglobin 1.0 LAB TEMP C Temperature, Body 37.0 LAB PHTC 7.35-7.45 pH, Temp Corrected 7.40 LAB PCO2T 34-46 mm Hg pCO2, Temp Correct 36 LAB PO2T mm Hg pO2, Temp Corrected 139 LAB NAB 135-146 mmol/L Sodium,Whole Bld 141 LAB KWB 3.5-5.0 mmol/L Potassium, Whole Bld 3.7 LAB HGBB 13.0-17.0 g/dL Low Hemoglobin,Total,A 8.7 CL LAB HCTB 39.0-51.0 % Hematocrit, Low ACL 27 LAB IC 1.08-1.30 mmol/L Calcium, Ion, WB 1.14 LAB GLB 60-105 mg/dL Glucose,Whole High Bld 119 LAB LACT 0.5-2.2 mmol/L Lactate 0.8 LAB ACBDTE Notify Date, Art [id number] LAB ACBTME Notify Time, Art Performed By: #### ALLBG #### [facility] [address] [place], [place] [address] SODIUM Collected: 10/26/2017 Status: F Source: [place] 8:42 AM [facility] REPOSITORY TYPE CODE TESTS RESULT OUT OF REFERENCE UNITS RANGE LAB NA 136-144 mmol/L High Sodium 145 Performed By: #### NA #### [facility] [address] [place], [place] [address] C DIFFICILE PCR Collected: 10/26/2017 Status: F Source: [place] 7:57 AM [facility] REPOSITORY TYPE CODE TESTS RESULT OUT OF REFERENCE UNITS RANGE LAB CDFRES C difficile PCR Negative for C. difficile toxin by PCR Performed By: #### CDPCR #### [facility] [address] [place], [place] [address] PROGRESS Observed: 10/26/2017 Status: COMPLETED Source: [place] 7:55 AM [facility] REPOSITORY HNO ID: [id number] Author: Heidi (Supervisor Intelligence Analyst) REBEKA Mccartney Service: Respiratory Therapy Author Type: Respiratory Therapist Type: Progress Notes Filed: 10/26/2017 7:56 AM Note Text: Tracheal sutures removed without complications. Thick, yellow secretions noted coming out from around stoma. Meghann Velázquez CNP notified. Tracheal area cleaned and dressing changed. SODIUM Collected: 10/26/2017 Status: F Source: [place] 3:57 AM [facility] REPOSITORY TYPE CODE TESTS RESULT OUT OF REFERENCE UNITS RANGE LAB NA 136-144 mmol/L High Sodium 146 Performed By: #### NA #### [facility] [address] [place], [place] [address] XR CHEST 1V FRONTAL Observed: 10/26/2017 Status: F Source: [facility] 1:28 AM [facility] REPOSITORY * * *Final Report* * * DATE OF EXAM: Oct 26 2017 1:28AM JIX [id number] - XR CHEST 1V FRONTAL PORT / PROCEDURE REASON: Postoperative state * * * * Physician Interpretation * * * * EXAMINATION: CHEST RADIOGRAPH (PORTABLE SINGLE VIEW AP) Exam Date/Time: 10/26/2017 1:28 AM Indication: Postoperative state MQ: XCP_4 Comparison: 1 day prior RESULT: See impression. IMPRESSION: Lines, tubes, and devices: The patient is status post median sternotomy. Tracheostomy tube, feeding tube, left subclavian venous catheter and thoracic endovascular stent graft are in place. Lungs and pleura: Lungs are hyperinflated, which may be related to underlying emphysema. Patchy reticular opacities in mid to lower lungs may be related to mild edema. Patchy opacities are noted at the lung bases, likely related to atelectasis. There are trace to small bilateral pleural effusions. Linear atelectasis/scarring is noted in the right upper lobe. No pneumothorax. Cardiomediastinal silhouette: Cardiomediastinal silhouette is stable in size. Other: Surgical clips are noted in the right axilla. Silver Wrapper: PSCB Transcribe Date/Time: Oct 26 2017 10:06A Dictated by : EFREN RAMIREZ MD This examination was interpreted and the report reviewed and electronically signed by: EFREN RAMIREZ MD on Oct 26 2017 10:07AM EST [id number] GASA + ALL Collected: 10/26/2017 Status: F Source: [place] FOR 12:21 AM [facility] USE ONLY REPOSITORY TYPE CODE TESTS RESULT OUT OF REFERENCE UNITS RANGE LAB PH 7.35-7.45 pH 7.42 LAB PCO2 34-46 mm Hg pCO2 36 LAB PO2 85-95 mm Hg pO2 High 109 LAB BE mmol/L Base Excess NEG 1 LAB HCO3 22-26 mmol/L Bicarbonate 23 LAB CO2CT 22.0-28.0 mmol/L CO2 Content 24 LAB O2HB 95-98 % Oxyhemoglobin, Art. 96 LAB COHB 0-5.0 % Carboxyhemoglobin,A 2.0 rt LAB MHGB 0.4-1.5 % Methemoglobin Low 0.3 LAB TEMP C Temperature, Body 37.0 LAB PHTC 7.35-7.45 pH, Temp Corrected 7.42 LAB PCO2T 34-46 mm Hg pCO2, Temp Correct 36 LAB PO2T mm Hg pO2, Temp Corrected 109 LAB NAB 135-146 mmol/L Sodium,Whole Bld 142 LAB KWB 3.5-5.0 mmol/L Potassium, Whole Bld 4.3 LAB HGBB 13.0-17.0 g/dL Low Hemoglobin,Total,AC 8.7 L LAB HCTB 39.0-51.0 % Hematocrit, ACL Low 27 LAB IC 1.08-1.30 mmol/L Calcium, Ion, WB 1.23 LAB GLB 60-105 mg/dL Glucose,Whole Bld High 126 LAB LACT 0.5-2.2 mmol/L Lactate 0.9 Performed By: #### ALLBG #### [facility] [address] [place], [place] [address] CBC Collected: 10/26/2017 Status: F Source: [place] 12:16 AM [facility] REPOSITORY TYPE CODE TESTS RESULT OUT OF REFERENCE UNITS RANGE LAB WBC 3.70-11.00 k/uL WBC High 15.13 LAB RBC 4.20-6.00 m/uL Low RBC 2.86 LAB HGB 13.0-17.0 g/dL Low Hemoglobin 8.8 LAB HCT 39.0-51.0 % Low Hematocrit 27.7 LAB MCV 80.0-100.0 fL MCV 96.9 LAB MCH 26.0-34.0 pG MCH 30.8 LAB MCHC 30.5-36.0 g/dL MCHC 31.8 LAB RDWCV 11.5-15.0 % RDW-CV High 17.6 LAB PLTCT 150-400 k/uL Platelet High Count 416 LAB MPV 9.0-12.7 fL MPV 10.5 LAB ABSNUC <0.01 k/uL Absolute nRBC <0.01 Performed By: #### CBC, CMP #### [facility] [address] [id number] COMP METABOLIC PANEL Collected: 10/26/2017 Status: F Source: [place] 12:16 AM [facility] REPOSITORY TYPE CODE TESTS RESULT OUT OF REFERENCE UNITS RANGE LAB TP 6.3-8.0 g/dL Protein, Total 6.3 LAB ALB 3.9-4.9 g/dL Low Albumin 3.0 LAB CA 8.5-10.2 mg/dL Low Calcium, Total 8.2 LAB TBIL 0.2-1.3 mg/dL Bilirubin, High Total 2.5 LAB ALKP 36-108 U/L Alkaline High Phosphatase 220 LAB AST 14-40 U/L AST High 100 LAB GLU 74-99 mg/dL Glucose High 123 Result Comment: The [place] [employer] (ADA) provides guidance for cutoff values for fasting glucose and random glucose. The ADA defines fasting as no caloric intake for at least 8 hours. Fas ting plasma glucose results between 100 to 125 mg/dL indicate increased risk for diabetes (prediabetes). Fasting plasma glucose results greater than or equal to 126 mg/dL meet the criteria for diagnosis of diabetes. In the absence of unequivocal hyperglycemia, results should be confirmed by repeat testing. In a patient with classic symptoms of hyperglycemia or hyperglycemic crisis, random plasma glucose results greater than or equal to 200 mg/dL meet the criteria for diagnosis of diabetes. Reference: Standards of Medical Care in Diabetes 2016, [place] [employer] Association. Diabetes Care. 2016.39(Suppl 1). LAB BUN 9-24 mg/dL BUN High 36 LAB CRET 0.73-1.22 mg/dL Low Creatinine 0.65 LAB NA 136-144 mmol/L Sodium High 145 LAB K 3.7-5.1 mmol/L Potassium 4.6 LAB CL 97-105 mmol/L Chloride High 112 LAB CO2 22-30 mmol/L CO2 22 LAB AGAP 9-18 mmol/L Anion Gap 11 LAB ALT 10-54 U/L ALT High 156 LAB GFRAA eGFR- Amer. >60 LAB GFRNAA . eGFR-All Other Races >60 Result Comment: eGFR (Estimated GFR) Units of measure: mL/min/1.73 meters squared eGFR is derived from the reexpressed MDRD Study equation using the following parameters: serum creatinine, age, gender and race. The creatinine assay has been calibrated to be traceable to IDMS. An eGFR <60 mL/min/1.73m2 for >3 months is consistent with chronic kidney disease. Refer to KDOQI guidelines for clinical interpretation. In patients with unstable renal function, e.g. those with acute kidney injury, the eGFR may not accurately reflect actual GFR. Performed By: #### CBC, CMP #### [facility] [address] [place], [place] [address] CONSULT PROG Observed: 10/25/2017 Status: COMPLETED Source: [place] 9:56 PM [facility] REPOSITORY HNO ID: [id number] Author: Deepika Garza) Ever Service: Neurology Author Type: Physician Type: Consult Progress Note Filed: 10/25/2017 10:07 PM Note Text: brief vascular neurology Note : Discussed with Dr Montes De Oca -- since holding keppra -- pt has had some improvement in mentation , to occasionally following commands on rt sodium much improved 146 On EEG monitoring--- 10/25/17 -- brief event of subclinical Sz this afternoon --started vimpat 400 mg IV X 1 and maintenance 200 mg IV BID - continue VEEG monitoring MRI brain non contrast study when possible next week Deepika Curtis MD Staff, [facility] 10/25/2017 10:07 PM GASA + ALL Collected: 10/25/2017 Status: F Source: [facility] 7:41 PM [facility] RADIANCE USE ONLY REPOSITORY TYPE CODE TESTS RESULT OUT OF REFERENCE UNITS RANGE LAB PH 7.35-7.45 pH 7.43 LAB PCO2 34-46 mm Hg pCO2 34 LAB PO2 85-95 mm Hg pO2 High 122 LAB BE mmol/L Base Excess NEG 2 LAB HCO3 22-26 mmol/L Bicarbonate 22 LAB CO2CT 22.0-28.0 mmol/L CO2 Content 23 LAB O2HB 95-98 % Oxyhemoglobin, Art. 97 LAB COHB 0-5.0 % Carboxyhemoglobin,A 2.2 rt LAB MHGB 0.4-1.5 % Methemoglobin 0.5 LAB TEMP C Temperature, Body 37.0 LAB PHTC 7.35-7.45 pH, Temp Corrected 7.43 LAB PCO2T 34-46 mm Hg pCO2, Temp Correct 34 LAB PO2T mm Hg pO2, Temp Corrected 122 LAB NAB 135-146 mmol/L Sodium,Whole Bld 143 LAB KWB 3.5-5.0 mmol/L Potassium, Whole Bld 4.4 LAB HGBB 13.0-17.0 g/dL Low Hemoglobin,Total,AC 9.0 L LAB HCTB 39.0-51.0 % Hematocrit, ACL Low 28 LAB IC 1.08-1.30 mmol/L Calcium, Ion, WB 1.24 LAB GLB 60-105 mg/dL Glucose,Whole Bld High 135 LAB LACT 0.5-2.2 mmol/L Lactate 1.0 Performed By: #### ALLBG #### [facility] [address] [place], [place] [address] SODIUM Collected: 10/25/2017 Status: F Source: [place] 7:38 PM [facility] REPOSITORY TYPE CODE TESTS RESULT OUT OF REFERENCE UNITS RANGE LAB NA 136-144 mmol/L High Sodium 146 Performed By: #### NA #### [facility] [address] [place], [place] [address] GASA + ALL Collected: 10/25/2017 Status: F Source: [place] FOR 5:34 PM [facility] RADIANCE USE ONLY REPOSITORY TYPE CODE TESTS RESULT OUT OF REFERENCE UNITS RANGE LAB PH 7.35-7.45 pH 7.44 LAB PCO2 34-46 mm Hg pCO2 Low 32 LAB PO2 85-95 mm Hg pO2 High 102 LAB BE mmol/L Base Excess NEG 2 LAB HCO3 22-26 mmol/L Bicarbonate Low 21 LAB CO2CT 22.0-28.0 mmol/L CO2 Content 22 LAB O2HB 95-98 % Oxyhemoglobin, Art. 96 LAB COHB 0-5.0 % Carboxyhemoglobin,A 2.0 rt LAB MHGB 0.4-1.5 % Methemoglobin Low 0.2 LAB TEMP C Temperature, Body 37.0 LAB PHTC 7.35-7.45 pH, Temp Corrected 7.44 LAB PCO2T 34-46 mm Hg pCO2, Temp Low Correct 32 LAB PO2T mm Hg pO2, Temp Corrected 102 LAB NAB 135-146 mmol/L Sodium,Whole Bld 143 LAB KWB 3.5-5.0 mmol/L Potassium, Whole Bld 4.3 LAB HGBB 13.0-17.0 g/dL Low Hemoglobin,Total,AC 8.7 L LAB HCTB 39.0-51.0 % Hematocrit, ACL Low 27 LAB IC 1.08-1.30 mmol/L Calcium, Ion, WB 1.20 LAB GLB 60-105 mg/dL Glucose,Whole Bld High 120 LAB LACT 0.5-2.2 mmol/L Lactate 0.8 Performed By: #### ALLBG #### [facility] [address] [place], [place] [address] SODIUM Collected: 10/25/2017 Status: F Source: [place] 3:30 PM [facility] REPOSITORY TYPE CODE TESTS RESULT OUT OF REFERENCE UNITS RANGE LAB NA 136-144 mmol/L High Sodium 146 Performed By: #### NA #### [facility] [address] [place], [place] [address] PROGRESS Observed: 10/25/2017 Status: COMPLETED Source: [place] 2:11 PM [facility] REPOSITORY HNO ID: [id number] Author: Cheng Lin) Heriberto Service: Critical Care Author Type: Nurse Specialist Type: Progress Notes Filed: 10/25/2017 2:12 PM Note Text: Pressure Injury Prevention Rounds completed on this patient. Assessment done on appropriate implementation of TAPS, wedges, TruVue Boots, skin barrier lotions, and other acceptable alternatives such as Zflow and heel elevation. Education provided to bedside nurse and clinical technicians regarding these pressure ulcer prevention techniques. Cheng Louis MSN, APPLICATIONS SALES CONSULTANT, ACCNS-AG, CCRN GASA + ALL Collected: 10/25/2017 Status: F Source: [place] FOR 1:43 PM [facility] RADIANCE USE ONLY REPOSITORY TYPE CODE TESTS RESULT OUT OF REFERENCE UNITS RANGE LAB PH 7.35-7.45 pH 7.45 LAB PCO2 34-46 mm Hg pCO2 Low 30 LAB PO2 85-95 mm Hg pO2 High 138 LAB BE mmol/L Base Excess NEG 3 LAB HCO3 22-26 mmol/L Bicarbonate Low 21 LAB CO2CT 22.0-28.0 mmol/L CO2 Content 22 LAB O2HB 95-98 % Oxyhemoglobin, Art. 97 LAB COHB 0-5.0 % Carboxyhemoglobin, 1.8 Art LAB MHGB 0.4-1.5 % Methemoglobin 0.9 LAB TEMP C Temperature, Body 37.0 LAB PHTC 7.35-7.45 pH, Temp Corrected 7.45 LAB PCO2T 34-46 mm Hg pCO2, Temp Low Correct 30 LAB PO2T mm Hg pO2, Temp Corrected 138 LAB NAB 135-146 mmol/L Sodium,Whole Bld 144 LAB KWB 3.5-5.0 mmol/L Potassium, Whole Bld 3.9 LAB HGBB 13.0-17.0 g/dL Low Hemoglobin,Total,A 8.0 CL LAB HCTB 39.0-51.0 % Hematocrit, Low ACL 25 LAB IC 1.08-1.30 mmol/L Calcium, Ion, WB 1.15 LAB GLB 60-105 mg/dL Glucose,Whole High Bld 119 LAB LACT 0.5-2.2 mmol/L Lactate 1.1 LAB ACBDTE Notify Date, Art [id number] LAB ACBTME Notify Time, Art Performed By: #### ALLBG #### [facility] [address], [place] [address] SODIUM Collected: 10/25/2017 Status: F Source: [place] 1:20 PM [facility] REPOSITORY TYPE CODE TESTS RESULT OUT OF REFERENCE UNITS RANGE LAB NA 136-144 mmol/L Sodium 144 Performed By: #### NA #### [facility] [address], [place] [id number] Observed: 10/25/2017 Status: F Source: [place] BLOOD CULTURE 1:10 PM [facility] REPOSITORY Culture Result - Staphylococcus epidermidis Probable contaminant. Susceptibility testing will not be performed. Call lab within 72 hours to initiate workup if clinically indicated. (NOTE) Positive result called to and read back by: Jonny Chavis [facility] J64 10/26/17 Vidhya Olivas Performed By: #### BLCUL #### [address] [place], [place] [address] URINALYSIS Collected: 10/25/2017 Status: F Source: [place] 1:00 [facility] REPOSITORY TYPE CODE TESTS RESULT OUT OF RANGE REFERENCE UNITS LAB UCOL Yellow Color Abnormal Malinda Alert LAB [facility] Clear Clarity Abnormal Cloudy Alert LAB UGLUC Negative mg/dL Glucose, Urine Negative LAB UBIL Negative Bilirubin, Urine Negative LAB UKET Negative Ketones, Urine Negative LAB USPG 1.005-1.030 Specific [place], Ur 1.015 LAB UHGB Negative Abnormal Hemoglobin/Blood, 3+ Alert Ur LAB UPH 4.5-8.0 pH 6.0 LAB UPROT Negative mg/dL Protein, Abnormal Urine 30 Alert LAB UUROB Normal Urobilinogen Normal LAB UNITR Negative Nitrites Negative LAB ULKEST Negative Leukest Abnormal Trace Alert LAB UCOM Comments SEE COMMENT Result Comment: Microscopic Examination Performed LAB UWBC 0-5 /HPF Abnormal Alert WBC 6-10 LAB URBC 0-3 /HPF Abnormal Alert RBC >25 LAB UMCOM Urine Will SEE COMMENT Comment Result Comment: N/A Performed By: #### UA #### [facility] [address] [place], [place] [id number] PROCALCITONIN Collected: 10/25/2017 Status: F Source: [place] 1:00 PM [facility] REPOSITORY TYPE CODE TESTS RESULT OUT OF REFERENCE UNITS RANGE LAB PROCLT <0.09 ng/mL Procalcitonin High 0.33 Result Comment: For a guided interpretation of test results, please visit the Change in Procalcitonin Calculator, [email or web address]. Performed By: #### PROCAL #### [place] [phone] Observed: 10/25/2017 Status: F Source: [place] BLOOD CULTURE 1:00 PM [facility] REPOSITORY Culture Result - No growth 5 days Performed By: #### BLCUL #### [place] [phone] Observed: 10/25/2017 Status: F Source: [place] URINE CULTURE 11:42 AM [facility] REPOSITORY Sp. Request/Comment: - Specimen received in preservative Culture Result - No growth (<1,000 CFU/ml) Performed By: #### URCUL #### [place] [phone] Observed: 10/25/2017 Status: F Source: [place] RESPIRATORY CULT/STAIN 11:42 AM [facility] REPOSITORY Smear Result - Gram stain performed on cytospun specimen. No organisms seen Moderate Polymorphonuclear leukocytes Many Ciliated epithelial cells Many Red Blood Cells Culture Result - No growth 2 days Performed By: #### RCULST #### [place] [phone] PROGRESS Observed: 10/25/2017 Status: COMPLETED Source: [place] 9:29 AM [facility] REPOSITORY HNO ID: [id number] Author: Simin Montes De Oca Service: (none) Author Type: Anesthesiologist Type: Progress Notes Filed: 10/25/2017 11:05 AM Note Text: [facility] Progress Note Name: Jose Gustafson COORDINATION OF CARE NOTE: Indication for Surgery: Spontaneous Rupture of Aorta LVEF: Normal RVF: Normal Important/Relevant PMH/PSH: HTN, asthma, hx kidney stones Preoperative Hospital Course (narrative): 52 yo M with PMH HTN, Asthma, and hx of kidney stones who is transferred to [facility] for 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 Hypotension, cardiac insufficiency on norepinephrine, vasopressin, and epoprostenol. Returned to OR 10/08 for exploration and large amount of clots were removed but no active bleeding. Chest closure attempted 10/10 but failed 2/2 desaturation. Early AM 10/11 2 CLOT for left sided weakness. CTH with large large right MCA infarct with associated mass effect. Repeat imaging with evolution of R MCA infarct with increased edema now s/p right decompressive hemicraniectomy per Neurosurgery on 10/12. Issues to communicate at signout: Off keppra no seizures. . More awake. Follows commands more, with rt side (response remains, though, intermittent. D/C EEG If steady improvement on MS hold off MRI and repeat CT head next week. (d/w neuro) Hypernatremia largely corrected. Continue to monitor, though, as polyuric. OTHER PROBLEMS I MANAGED DURING THIS ENCOUNTER: Active Hospital Problems Diagnosis - Dissection of thoracic aorta (HCC) Patient with chest pain at OSH. CT chest was concerning for aortic dissection starting at the mid arch and descending in the thoracic aorta. Taken to the OR 10/08, brief OR findings greater curvature of the aortic arch was torn longitudinally from innominate artery to distal arch. There was no obvious dissection. 10/08/2017 s/p Total arch replacement with FET under DHCA; open chest 10/08/2017 Chest exploration/Evacuation of hematoma/Open chest with wound vac 10/10/2017 Chest opened with wound VAC placement (Attempt closure, but fail due to desaturation) uptitrate BB. Labetalol PRN for normotension SBP > 140 - [place] coma scale total score 3-8 (HCC) Appreciate neuro input: S/p large R.MCA infarct s/p aortic arch repair, underwent hemicraniectomy 10/12, imaging stable with reduced mass effect and no hemorrhagic conversion. Exam shows pt unable to follow commands NIHSS 34, repeat CTH 10/20 showed petechial hemorrhage w/in evolving R.MCA territory infarct. BEM showing PLEDS right FT. No seizures noted. Encephalopathy of uncertain etiology, not explained by his current stroke. Would d/c keppra, observe on EEG, obtain vitamin studies, and also would obtain MRI to r/o central pontine myelinolysis or other etiology causing his AMS Seems progressively more awake: eyes opened, followed intermittently more Consider MRI next week once pacing wires out. - Acute ischemic right MCA stroke (HCC) New L sided weakness 10/11; CTH with large R MCA infarct with associated mass effect. 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 ?Remaining findings are otherwise essentially unchanged since prior CT from 10/15/2017.There is no significant change in intracranial mass effect with partial effacement of the right lateral ventricle with no significant midline shift on the current exam. ?There is stable herniation of the infarcted parenchyma through the craniectomy defect without evidence of impingement. Mental status if is improving, following commands intermittently, hypernatremia improving leukocytosis EEG 10/20: bilateral cortical dysfunction maximum in the right hemisphere with potential epileptogenicity arising from the right frontocentral region. There is also evidence for a severe diffuse encephalopathy. No EEG seizures were recorded - keppra 750 mg bid x 2 weeks held d/t AMS of unclear etiology - stop all sedation/psychoactive meds other than keprra. - no seizures off keppra. D/c EEG monitoring. - Acquired skull defect S/p right hemicraniectomy Will need helmet when out of the ICU - Leukocytosis Febrile episode 10/18 up to 39 and recurrent 10/24 up to 38.8. Persistent leukocytosis though improving. Lines 10/17. Abd soft, no pain at RUQ palpaton, however mental status altered. CxR largely stable Associated with cholestasis and mild cytolytic syndrome, improving off keppra. RUQ ulrasound sludge PCT 0.5 ? Central Continue to follow cultures (2 contaminants: difteroids and MRSE 1/2) d/w ID. Repeat PCT, blood cultures, u/a, mini bal On vanco and cipro --> zosyn. D/w ID have stopped/continue off. - Asthma Preop on Breo Ellipta and Flonase A/P - continue inhalers (budesonide, duonebs). No wheezing. Vented. - Acute respiratory insufficiency, postoperative Tachypneic thoug markedly improved Central vs. Mechanical (elevated lt karen, chest open, prolonged disease) Maintain on PSV with PS titrated to comfort. - Acute kidney injury (HCC) Baseline Scr 0.89 to Seems mostly prerenal. Off diuretic, replete free water. Transfuse if BP low. - Acute blood loss anemia Transfuse to HCT 30 if low BP - Elevated LFTs Mild cytolytic and cholestatic syndrome improving off keppra Intermittent Fever/WBC still up but stable - no abd pain elicited. Ruq US - sludge - Severe protein-calorie malnutrition (HCC) Corpak. Tolerating TF SUBJECTIVE INTERVAL HISTORY: as above PERTINENT REVIEW OF SYSTEMS: See Assessment and Plan. Remaining ROS reviewed and negative. PHYSICAL EXAM AND PERTINENT DATA: Infusions: None Vital Signs: BP 133/80 Pulse 103 Temp 37 ?C (98.6 ?F) (Axillary) Resp (!) 33 Ht 182.9 cm (6') Wt 90.5 kg (199 lb 8.3 oz) SpO2 97% BMI 27.06 kg/m2 Neuro: Awake and follows intermittently with rt side Cardiovascular: Rhythm: regular rate and rhythm MAP: 112 mm Hg CVP: mm Hg PAP: mm Hg Cardiac Index: L/min/m2 Recent Labs 10/23/17 1156 CK 190 Pulmonary: Clear to auscultation and Breath sounds equal Ventilator: Trach/PSV Recent Labs 10/25/17 0845 10/25/17 0317 10/24/17 2343 PH 7.41 7.43 7.42 PCO2 36 34 34 PO2 153* 86 122* HCO3 23 22 22 O2HB 97 95 97 LACT 1.0 0.9 0.8 CXR Findings: atelectasis Gastrointestinal: Abdominal: Soft and Non-tender Recent Labs 10/25/17 0000 10/24/17 0015 10/23/17 0030 TPROT 6.1* 6.0* 5.7* ALB 3.0* 2.7* 2.3* ALKPHOS 194* 238* 238* TBILI 2.8* 2.8* 3.8* AST 82* 120* 285* ALT 156* 238* 292* Heme: Recent Labs 10/25/17 0000 10/24/17 0015 10/23/17 0030 WBC 15.43* 16.05* 16.59* HB 8.3* 9.2* 9.3* HCT 26.6* 29.6* 29.7* PLT 431* 442* 473* Endocrine: Renal: nonoliguric Intake/Output Summary (Last 24 hours) at 10/25/17 0659 Last data filed at 10/25/17 0630 Gross per 24 hour Intake 5101 ml Output 4322 ml Net 779 ml Recent Labs 10/25/17 0313 10/25/17 0000 10/24/17202010/24/17 0015 10/23/17 0030 NA 146* 146* 149* < > 151* < > 155* K -- 4.1 -- -- 4.6 -- 4.2 CHLOR -- 114* -- -- 119* -- 125* CO2 -- 23 -- -- 23 -- 19* BUN -- 35* -- -- 40* -- 38* CREAT -- 0.73 -- -- 0.78 -- 0.82 GLUC -- 132* -- -- 154* -- 126* < > = values in this interval not displayed. Recent Labs 10/25/17 0000 10/24/17 0015 10/23/17 0030 CA 8.3* 8.0* 8.4* Drug Blood Levels: I have discussed the case and the plan and management of the patient's care with the primary surgical team and consulting services, the bedside nurse and the respiratory therapist. SIGNATURE: Simin Montes De Oca MD DATE of SERVICE: 10/25/2017 TIME of SERVICE: 9:29 AM SODIUM Collected: 10/25/2017 Status: F Source: [place] 9:00 AM [facility] REPOSITORY TYPE CODE TESTS RESULT OUT OF REFERENCE UNITS RANGE LAB NA 136-144 mmol/L High Sodium 146 Performed By: #### NA #### [facility] [address], [place] [address] GASA + ALL Collected: 10/25/2017 Status: F Source: [place] FOR 8:45 AM [facility] RADIANCE USE ONLY REPOSITORY TYPE CODE TESTS RESULT OUT OF REFERENCE UNITS RANGE LAB PH 7.35-7.45 pH 7.41 LAB PCO2 34-46 mm Hg pCO2 36 LAB PO2 85-95 mm Hg pO2 High 153 LAB BE mmol/L Base Excess NEG 1 LAB HCO3 22-26 mmol/L Bicarbonate 23 LAB CO2CT 22.0-28.0 mmol/L CO2 Content 24 LAB O2HB 95-98 % Oxyhemoglobin, Art. 97 LAB COHB 0-5.0 % Carboxyhemoglobin, 1.8 Art LAB MHGB 0.4-1.5 % Methemoglobin 0.9 LAB TEMP C Temperature, Body 37.0 LAB PHTC 7.35-7.45 pH, Temp Corrected 7.41 LAB PCO2T 34-46 mm Hg pCO2, Temp Correct 36 LAB PO2T mm Hg pO2, Temp Corrected 153 LAB NAB 135-146 mmol/L Sodium,Whole Bld 145 LAB KWB 3.5-5.0 mmol/L Potassium, Whole Bld 3.8 LAB HGBB 13.0-17.0 g/dL Low Hemoglobin,Total,A 9.1 CL LAB HCTB 39.0-51.0 % Hematocrit, Low ACL 28 LAB IC 1.08-1.30 mmol/L Calcium, Ion, WB 1.23 LAB GLB 60-105 mg/dL Glucose,Whole High Bld 123 LAB LACT 0.5-2.2 mmol/L Lactate 1.0 LAB ACBDTE Notify Date, Art [id number] LAB ACBTME Notify Time, Art Performed By: #### ALLBG #### [facility] [address] [place], [place] [address] CONSULT PROG Observed: 10/25/2017 Status: COMPLETED Source: [place] 7:17 AM [facility] REPOSITORY HNO ID: [id number] Author: Freedom Benton Service: Infectious Disease Author Type: Physician Type: Consult Progress Note Filed: 10/25/2017 8:48 AM Note Text: INFECTIOUS DISEASE CONSULT SERVICE PROGRESS NOTE Date: October 25, 2017 Patient Name: Jose Gustafson examined and assessed Interval Events: no issues overnight afebrile not responsive MEDICATIONS Medications reviewed. Current antibiotics include: none EXAMINATION: Vital signs: BP 133/80 Pulse 94 Temp 37 ?C (98.6 ?F) (Axillary) Resp (!) 33 Ht 182.9 cm (6') Wt 90.5 kg (199 lb 8.3 oz) SpO2 99% BMI 27.06 kg/m2 supine intubated via tracheostomy EEG leads on not communicative sternal wound stable abd quiet craniotomy surtures clean arterial line and left central line no rash but echymosis left inner thigh LABORATORY DATA: Lab reviewed procalcitionin normal MICROBIOLOGY DATA: . ? blood cx 10/21 07/30 ROVING HAULER likely contaminant blood cx 10/17 07/30 bottles C acnes no SA carriage in nares 10/14 tissue negative cx including afb BAL 10/15 NGT D Specimen #: [id number] Submitting Physician: ARPIT MCKENZIE M.D. 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 See comment ? imaging preop CTA intramural type dissection (blood within lumen and blood in right chest and around pericardium) ? CXR today chest tubes median sternotomy aortic stent in place ? CT brain pre craniomtomy reviewd hemmorhage on right ? Petechial hemorrhage within the evolving right MCA territory infarct is more conspicuous on this current exam. EEG leads on ? ? Impression/Recommendations ?? ? 52 y/o man s/p (10/07/17) total Arch replacement. 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 C/b mild hypotension requiring continued pressors and bleeding s/p multiple blood products in OR with delayed chest closure (10/14) and right cerebral hemmorhage requiring urgent craniotomy for decompression (presenting with left hemiparesis) with leukocytosis (17K) . No fevers and no steroids. Possible infection (wounds clean; lines look ok) vs aspiration (CXR no gross infiltratres). Non infectious causes include ROVING HAULER hemorrhage and dissection Has been on vancomcyin and ciprofloxacin since surgery now on zoysn for possible aspiration. ? 1. continue to observe off antibiotics as single ROVING HAULER 07/30 10/21 likely contaminant as single C acnes on and procalctionin negative spoke to ICU team DR Horowitz to cover weekend if questions I return 10/28 ? Signature: Freedom Benton MD Pager: [phone] Date of Service: October 25, 2017 XR CHEST 1V FRONTAL Observed: 10/25/2017 Status: F Source: [facility] 3:41 AM [facility] REPOSITORY * * *Final Report* * * DATE OF EXAM: Oct 25 2017 3:41AM JIX [id number] - XR CHEST 1V FRONTAL PORT / PROCEDURE REASON: Postoperative state * * * * Physician Interpretation * * * * CHEST RADIOGRAPH (PORTABLE SINGLE VIEW AP) Exam Date/Time: 10/25/2017 3:41 AM Indications: Postoperative state M: XCP_3 Comparison: 1 day earlier RESULTS: See Impression. IMPRESSION: Lines, Tubes, and Devices: Mediastinal drain removed and otherwise stable support lines and tubes. Lungs and Pleura: Interstitial edema, small effusions and left lower lung opacities unchanged from prior. No pneumothorax. Cardiomediastinal silhouette: Stable cardiac silhouette. Silver Wrapper: AMY Transcribe Date/Time: Oct 25 2017 7:16A Dictated by : CIRILO MATUTE MD This examination was interpreted and the report reviewed and electronically signed by: CIRILO MATUTE MD on Oct 25 2017 7:17AM EST [id number] + ALL Collected: 10/25/2017 Status: F Source: [facility] 3:17 AM [facility] RADIANCE USE ONLY REPOSITORY TYPE CODE TESTS RESULT OUT OF REFERENCE UNITS RANGE LAB PH 7.35-7.45 pH 7.43 LAB PCO2 34-46 mm Hg pCO2 34 LAB PO2 85-95 mm Hg pO2 86 LAB BE mmol/L Base Excess NEG 1 LAB HCO3 22-26 mmol/L Bicarbonate 22 LAB CO2CT 22.0-28.0 mmol/L CO2 Content 23 LAB O2HB 95-98 % Oxyhemoglobin, Art. 95 LAB COHB 0-5.0 % Carboxyhemoglobin,A 1.5 rt LAB MHGB 0.4-1.5 % Methemoglobin 0.7 LAB TEMP C Temperature, Body 37.0 LAB PHTC 7.35-7.45 pH, Temp Corrected 7.43 LAB PCO2T 34-46 mm Hg pCO2, Temp Correct 34 LAB PO2T mm Hg pO2, Temp Corrected 86 LAB NAB 135-146 mmol/L Sodium,Whole Bld 145 LAB KWB 3.5-5.0 mmol/L Potassium, Whole Bld 3.9 LAB HGBB 13.0-17.0 g/dL Low Hemoglobin,Total,AC 8.6 L LAB HCTB 39.0-51.0 % Hematocrit, ACL Low 27 LAB IC 1.08-1.30 mmol/L Calcium, Ion, WB 1.23 LAB GLB 60-105 mg/dL Glucose,Whole Bld High 138 LAB LACT 0.5-2.2 mmol/L Lactate 0.9 Performed By: #### ALLBG #### [facility] [address] [address] SODIUM Collected: 10/25/2017 Status: F Source: [place] 3:13 AM [facility] REPOSITORY TYPE CODE TESTS RESULT OUT OF REFERENCE UNITS RANGE LAB NA 136-144 mmol/L High Sodium 146 Performed By: #### NA #### [place] [id number] [place] [address] CBC Collected: 10/25/2017 Status: F Source: [place] 12:00 AM [facility] REPOSITORY TYPE CODE TESTS RESULT OUT OF REFERENCE UNITS RANGE LAB WBC 3.70-11.00 k/uL WBC High 15.43 LAB RBC 4.20-6.00 m/uL Low RBC 2.74 LAB HGB 13.0-17.0 g/dL Low Hemoglobin 8.3 LAB HCT 39.0-51.0 % Low Hematocrit 26.6 LAB MCV 80.0-100.0 fL MCV 97.1 LAB MCH 26.0-34.0 pG MCH 30.3 LAB MCHC 30.5-36.0 g/dL MCHC 31.2 LAB RDWCV 11.5-15.0 % RDW-CV High 17.3 LAB PLTCT 150-400 k/uL Platelet High Count 431 LAB MPV 9.0-12.7 fL MPV 10.9 LAB ABSNUC <0.01 k/uL Absolute nRBC <0.01 Performed By: #### CBC, CMP #### [facility] [address] [place], [place] [address] COMP METABOLIC PANEL Collected: 10/25/2017 Status: F Source: [place] 12:00 AM [facility] REPOSITORY TYPE CODE TESTS RESULT OUT OF REFERENCE UNITS RANGE LAB TP 6.3-8.0 g/dL Low Protein, Total 6.1 LAB ALB 3.9-4.9 g/dL Low Albumin 3.0 LAB CA 8.5-10.2 mg/dL Low Calcium, Total 8.3 LAB TBIL 0.2-1.3 mg/dL Bilirubin, High Total 2.8 LAB ALKP 36-108 U/L Alkaline High Phosphatase 194 LAB AST 14-40 U/L AST High 82 LAB GLU 74-99 mg/dL Glucose High 132 Result Comment: The [place] [employer] Association (ADA) provides guidance for cutoff values for fasting glucose and random glucose. The ADA defines fasting as no caloric intake for at least 8 hours. Fas ting plasma glucose results between 100 to 125 mg/dL indicate increased risk for diabetes (prediabetes). Fasting plasma glucose results greater than or equal to 126 mg/dL meet the criteria for diagnosis of diabetes. In the absence of unequivocal hyperglycemia, results should be confirmed by repeat testing. In a patient with classic symptoms of hyperglycemia or hyperglycemic crisis, random plasma glucose results greater than or equal to 200 mg/dL meet the criteria for diagnosis of diabetes. Reference: Standards of Medical Care in Diabetes 2016, [place] [employer] Association. Diabetes Care. 2016.39(Suppl 1). LAB BUN 9-24 mg/dL BUN High 35 LAB CRET 0.73-1.22 mg/dL Creatinine 0.73 LAB NA 136-144 mmol/L Sodium High 146 LAB K 3.7-5.1 mmol/L Potassium 4.1 LAB CL 97-105 mmol/L Chloride High 114 LAB CO2 22-30 mmol/L CO2 23 LAB AGAP 9-18 mmol/L Anion Gap 9 LAB ALT 10-54 U/L ALT High 156 LAB GFRAA eGFR- Amer. >60 LAB GFRNAA . eGFR-All Other Races >60 Result Comment: eGFR (Estimated GFR) Units of measure: mL/min/1.73 meters squared eGFR is derived from the reexpressed MDRD Study equation using the following parameters: serum creatinine, age, gender and race. The creatinine assay has been calibrated to be traceable to IDKY. An eGFR <60 mL/min/1.73m2 for >3 months is consistent with chronic kidney disease. Refer to KDOQI guidelines for clinical interpretation. In patients with unstable renal function, e.g. those with acute kidney injury, the eGFR may not accurately reflect actual GFR. Performed By: #### CBC, CMP #### [facility] [address] [place], [place] [address] GASA + ALL Collected: 10/24/2017 Status: F Source: [place] FOR 11:43 PM [facility] RADIANCE USE ONLY REPOSITORY TYPE CODE TESTS RESULT OUT OF REFERENCE UNITS RANGE LAB PH 7.35-7.45 pH 7.42 LAB PCO2 34-46 mm Hg pCO2 34 LAB PO2 85-95 mm Hg pO2 High 122 LAB BE mmol/L Base Excess NEG 2 LAB HCO3 22-26 mmol/L Bicarbonate 22 LAB CO2CT 22.0-28.0 mmol/L CO2 Content 23 LAB O2HB 95-98 % Oxyhemoglobin, Art. 97 LAB COHB 0-5.0 % Carboxyhemoglobin,A 1.9 rt LAB MHGB 0.4-1.5 % Methemoglobin 0.4 LAB TEMP C Temperature, Body 37.0 LAB PHTC 7.35-7.45 pH, Temp Corrected 7.42 LAB PCO2T 34-46 mm Hg pCO2, Temp Correct 34 LAB PO2T mm Hg pO2, Temp Corrected 122 LAB NAB 135-146 mmol/L Sodium,Whole Bld 146 LAB KWB 3.5-5.0 mmol/L Potassium, Whole Bld 3.8 LAB HGBB 13.0-17.0 g/dL Low Hemoglobin,Total,AC 8.1 L LAB HCTB 39.0-51.0 % Hematocrit, ACL Low 25 LAB IC 1.08-1.30 mmol/L Calcium, Ion, WB 1.23 LAB GLB 60-105 mg/dL Glucose,Whole Bld High 122 LAB LACT 0.5-2.2 mmol/L Lactate 0.8 Performed By: #### ALLBG #### [facility] [address] [place], [place] [address] GASA + ALL Collected: 10/24/2017 Status: F Source: [place] FOR 8:32 PM [facility] RADIANCE USE ONLY REPOSITORY TYPE CODE TESTS RESULT OUT OF REFERENCE UNITS RANGE LAB PH 7.35-7.45 pH 7.44 LAB PCO2 34-46 mm Hg pCO2 35 LAB PO2 85-95 mm Hg pO2 High 108 LAB BE mmol/L Base Excess NEG 1 LAB HCO3 22-26 mmol/L Bicarbonate 23 LAB CO2CT 22.0-28.0 mmol/L CO2 Content 24 LAB O2HB 95-98 % Oxyhemoglobin, Art. 97 LAB COHB 0-5.0 % Carboxyhemoglobin,A 1.5 rt LAB MHGB 0.4-1.5 % Methemoglobin 0.4 LAB TEMP C Temperature, Body 37.0 LAB PHTC 7.35-7.45 pH, Temp Corrected 7.44 LAB PCO2T 34-46 mm Hg pCO2, Temp Correct 35 LAB PO2T mm Hg pO2, Temp Corrected 108 LAB NAB 135-146 mmol/L Sodium,Whole Bld High 148 LAB KWB 3.5-5.0 mmol/L Potassium, Whole Bld 3.7 LAB HGBB 13.0-17.0 g/dL Low Hemoglobin,Total,AC 8.1 L LAB HCTB 39.0-51.0 % Hematocrit, ACL Low 25 LAB IC 1.08-1.30 mmol/L Calcium, Ion, WB 1.20 LAB GLB 60-105 mg/dL Glucose,Whole Bld High 131 LAB LACT 0.5-2.2 mmol/L Lactate 0.8 Performed By: #### ALLBG #### [facility] [address] [place], [place] [address] SODIUM Collected: 10/24/2017 Status: F Source: [place] 8:21 PM [facility] REPOSITORY TYPE CODE TESTS RESULT OUT OF REFERENCE UNITS RANGE LAB NA 136-144 mmol/L High Sodium 149 Performed By: #### NA #### [facility] [address] [place], [place] [address] GASA + ALL Collected: 10/24/2017 Status: F Source: [place] FOR 3:36 PM [facility] RADIANCE USE ONLY REPOSITORY TYPE CODE TESTS RESULT OUT OF REFERENCE UNITS RANGE LAB PH 7.35-7.45 pH 7.41 LAB PCO2 34-46 mm Hg pCO2 40 LAB PO2 85-95 mm Hg pO2 High 128 LAB BE mmol/L Base Excess 0 LAB HCO3 22-26 mmol/L Bicarbonate 24 LAB CO2CT 22.0-28.0 mmol/L CO2 Content 26 LAB O2HB 95-98 % Oxyhemoglobin, Art. 98 LAB COHB 0-5.0 % Carboxyhemoglobin,A 2.1 rt LAB MHGB 0.4-1.5 % Methemoglobin Low 0.0 LAB TEMP C Temperature, Body 37.0 LAB PHTC 7.35-7.45 pH, Temp Corrected 7.41 LAB PCO2T 34-46 mm Hg pCO2, Temp Correct 40 LAB PO2T mm Hg pO2, Temp Corrected 128 LAB NAB 135-146 mmol/L Sodium,Whole Bld High 149 LAB KWB 3.5-5.0 mmol/L Potassium, Whole Bld 4.1 LAB HGBB 13.0-17.0 g/dL Low Hemoglobin,Total,AC 8.1 L LAB HCTB 39.0-51.0 % Hematocrit, ACL Low 25 LAB IC 1.08-1.30 mmol/L Calcium, Ion, WB 1.23 LAB GLB 60-105 mg/dL Glucose,Whole Bld High 128 LAB LACT 0.5-2.2 mmol/L Lactate 1.0 Performed By: #### ALLBG #### [facility] [address] [place] [id number] SODIUM Collected: 10/24/2017 Status: F Source: [place] 3:31 PM [facility] REPOSITORY TYPE CODE TESTS RESULT OUT OF REFERENCE UNITS RANGE LAB NA 136-144 mmol/L High Sodium 150 Performed By: #### NA #### [facility] [address] [place], [place] [address] NUTRITION Observed: 10/24/2017 Status: COMPLETED Source: [place] 1:16 PM [facility] REPOSITORY HNO ID: [id number] Author: Jeremy Harrington Service: NST-Nutrition Support Team Author Type: Registered Dietitian Type: Nutrition Filed: 10/24/2017 2:19 PM Note Text: NUTRITION THERAPY PROGRESS NOTE SERVICE DATE: 10/24/2017 SERVICE TIME: 10:07 am RECOMMENDED DIAGNOSIS: SEVERE PROTEIN-CALORIE MALNUTRITION per Registered Dietitian on 10/22/17. NUTRITION CARE PLAN Intervention: 1. Impact Peptide @ 60 cc/hr (2160 kcal,135 g pro) Flushes per MD order @ least 30 cc q4 2. Continue MVI Monitor and Evaluation: Goal: Meet >75% of estimated needs Discharge Nutrition Recommendations: To be determined ?? Per HPI: 52 yo M pmhx 52 yo M with PMH HTN, Asthma, and hx of kidney stones who is transferred to [facility] for 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 vanco d/c'd yesterday. Pt continues tolerating TF at goal. Free water flushes adjusted slightly for Na correction. ? Present Diet Order: Tube Feeding Impact Peptide 1.5 @ 60 mL/hr + 200 mL flush 8x/day ? 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 Pt received 55% of needs yesterday. 10/22: TF at goal. pt received >100% of needs the last 4 days (2137 kcal, 134 g pro) 10/24: TF continue at goal w/ minimal interruptions ? Enteral Access: Small bore NG Admission Weight: 85 kg (187 lb 6.3 oz) Current Weight: 86.3 kg (190 lb 4.1 oz) Body mass index is 25.8 kg/(m2). overweight Weight hx: per epic, wt ~190s with minor fluctuations the last year. Admitted at 187#, 85 kg. Pt is now 190# (86.3 kg) - minimal edema noted. IBW: 80.9?kg ?? Dosing wt: 85?kg Estimated kilocalorie needs: 3548-4352?kilocalories determined by 20-25?kcal/kg Estimated protein needs: 110-144?grams determined by 1.3-1.7 g/kg?Dosing?weight Pertinent Meds: heparin, protonix, senna, MVI ALLERGIES Allergen Reactions - Cats - Grass Pollen Itching Pressure Injury 10/22/17 1130 Coccyx (Active) [facility] Units J064 10/23/2017 2:00 PM Stage Injury 1 10/24/2017 7:30 AM MNT Billing Type: Re-assess/15 min 2 units SIGNATURE: Hilda Arce, Employee Relations Representative PATIENT NAME: Jose Gustafson DATE: October 24, 2017 TIME: 1:17 PM PAGER: [phone] NUTRITION THERAPY: TEACHING DIETITIAN NOTE OF PERSONAL INVOLVEMENT OF CARE. I have reviewed the progress note obtained and documented by the recruitment intern. I have discussed the case and management of the patient?s nutrition therapy with the recruitment intern. The following comments revise or confirm relevant curry components of the recruitment intern?s note. Jeremy Harrington, MS, RD, LD, [facility] Pager: [phone] GASA + ALL Collected: 10/24/2017 Status: F Source: [place] 11:35 AM [facility] RADIANCE USE ONLY REPOSITORY TYPE CODE TESTS RESULT OUT OF REFERENCE UNITS RANGE LAB PH 7.35-7.45 pH 7.38 LAB PCO2 34-46 mm Hg pCO2 39 LAB PO2 85-95 mm Hg pO2 High 144 LAB BE mmol/L Base Excess NEG 2 LAB HCO3 22-26 mmol/L Bicarbonate 22 LAB CO2CT 22.0-28.0 mmol/L CO2 Content 23 LAB O2HB 95-98 % Oxyhemoglobin, Art. 97 LAB COHB 0-5.0 % Carboxyhemoglobin, 1.8 Art LAB MHGB 0.4-1.5 % Methemoglobin 0.7 LAB TEMP C Temperature, Body 37.0 LAB PHTC 7.35-7.45 pH, Temp Corrected 7.38 LAB PCO2T 34-46 mm Hg pCO2, Temp Correct 39 LAB PO2T mm Hg pO2, Temp Corrected 144 LAB NAB 135-146 mmol/L Sodium,Whole High Bld 152 LAB KWB 3.5-5.0 mmol/L Potassium, Whole Bld 4.0 LAB HGBB 13.0-17.0 g/dL Low Hemoglobin,Total,A 8.3 CL LAB HCTB 39.0-51.0 % Hematocrit, Low ACL 26 LAB IC 1.08-1.30 mmol/L Calcium, Ion, WB 1.25 LAB GLB 60-105 mg/dL Glucose,Whole High Bld 142 LAB LACT 0.5-2.2 mmol/L Lactate 1.3 LAB ACBDTE Notify Date, Art [id number] LAB ACBTME Notify Time, Art Performed By: #### ALLBG #### [facility] [address] [place], [place] [address] SODIUM Collected: 10/24/2017 Status: F Source: [place] 11:16 AM [facility] REPOSITORY TYPE CODE TESTS RESULT OUT OF REFERENCE UNITS RANGE LAB NA 136-144 mmol/L High Sodium 153 Performed By: #### NA #### [facility] [address] [place], [place] [address] CONSULT PROG Observed: 10/24/2017 Status: COMPLETED Source: [place] 10:05 AM [facility] REPOSITORY HNO ID: [id number] Author: Freedom Benton Service: Infectious Disease Author Type: Physician Type: Consult Progress Note Filed: 10/24/2017 11:47 AM Note Text: INFECTIOUS DISEASE CONSULT SERVICE PROGRESS NOTE Date: October 24, 2017 Patient Name: Jose Gustafson examined and assessed Interval Events: no issues overnight afebrile not responsive MEDICATIONS Medications reviewed. Current antibiotics include: none EXAMINATION: Vital signs: BP 133/80 Pulse 102 Temp 38.1 ?C (100.6 ?F) (Oral) Resp 28 Ht 182.9 cm (6') Wt 86.3 kg (190 lb 4.1 oz) SpO2 100% BMI 25.8 kg/m2 supine intubated via tracheostomy not communicative sternal wound stable abd quiet craniotomy surtures clean arterial line and left central line no rash but echymosis left inner thigh LABORATORY DATA: Lab reviewed procalcitionin normal MICROBIOLOGY DATA: . ? blood cx 10/21 1 ROVING HAULER likely contaminant blood cx 10/17 1 bottles ditptheroid likely contaminant no SA carriage in nares 10/14 tissue negative cx including afb BAL 10/15 NGT D Specimen #: [id number] Submitting Physician: ARPIT MCKENZIE M.D. 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 See comment ? imaging preop CTA intramural type dissection (blood within lumen and blood in right chest and around pericardium) ? CXR today chest tubes median sternotomy aortic stent in place ? CT brain pre craniomtomy reviewd hemmorhage on right ? Petechial hemorrhage within the evolving right MCA territory infarct is more conspicuous on this current exam. EEG leads on ? ? Impression/Recommendations ?? ? 52 y/o man s/p (10/07/17) total Arch replacement. 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 C/b mild hypotension requiring continued pressors and bleeding s/p multiple blood products in OR with delayed chest closure (10/14) and right cerebral hemmorhage requiring urgent craniotomy for decompression (presenting with left hemiparesis) with leukocytosis (17K) . No fevers and no steroids. Possible infection (wounds clean; lines look ok) vs aspiration (CXR no gross infiltratres). Non infectious causes include ROVING HAULER hemorrhage and dissection Has been on vancomcyin and ciprofloxacin since surgery now on zoysn for possible aspiration. ? 1. continue to observe off antibiotics as single ROVING HAULER /2 10/21 likely contaminant and procalctionin negative spoke to ICU team DR Horowitz to cover weekend if questions I return 10/28 ? Signature: Freedom Benton MD Pager: [phone] Date of Service: October 24, 2017 PROGRESS Observed: 10/24/2017 Status: COMPLETED Source: [place] 9:14 AM [facility] REPOSITORY HNO ID: [id number] Author: Simin Montes De Oca Service: (none) Author Type: Anesthesiologist Type: Progress Notes Filed: 10/24/2017 9:23 AM Note Text: [facility] Progress Note Name: Jose Gustafson COORDINATION OF CARE NOTE: Indication for Surgery: Spontaneous Rupture of Aorta LVEF: Normal RVF: Normal Important/Relevant PMH/PSH: HTN, asthma, hx kidney stones Preoperative Hospital Course (narrative): 52 yo M with PMH HTN, Asthma, and hx of kidney stones who is transferred to [facility] for 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 Hypotension, cardiac insufficiency on norepinephrine, vasopressin, and epoprostenol. Returned to OR 10/08 for exploration and large amount of clots were removed but no active bleeding. Chest closure attempted 10/10 but failed 2/2 desaturation. Early AM 10/11 2 CLOT for left sided weakness. CTH with large large right MCA infarct with associated mass effect. Repeat imaging with evolution of R MCA infarct with increased edema now s/p right decompressive hemicraniectomy per Neurosurgery on 10/12. Issues to communicate at signout: Off keppra/cont EEG for now. More awake. Followed intermittently for night time nanny. MRI - if no improvement in mental status (will need d/c wires prior) Correction of hypernatremia slow decrease. Slightly increase free water intake. OTHER PROBLEMS I MANAGED DURING THIS ENCOUNTER: Active Hospital Problems Diagnosis - Dissection of thoracic aorta (HCC) Patient with chest pain at OSH. CT chest was concerning for aortic dissection starting at the mid arch and descending in the thoracic aorta. Taken to the OR 10/08, brief OR findings greater curvature of the aortic arch was torn longitudinally from innominate artery to distal arch. There was no obvious dissection. 10/08/2017 s/p Total arch replacement with FET under DHCA; open chest 10/08/2017 Chest exploration/Evacuation of hematoma/Open chest with wound vac 10/10/2017 Chest opened with wound VAC placement (Attempt closure, but fail due to desaturation) BP control currently not required - [place] coma scale total score 3-8 (HCC) Appreciate neuro input: S/p large R.MCA infarct s/p aortic arch repair, underwent hemicraniectomy 10/12, imaging stable with reduced mass effect and no hemorrhagic conversion. Exam shows pt unable to follow commands NIHSS 34, repeat CTH 10/20 showed petechial hemorrhage w/in evolving R.MCA territory infarct. BEM showing PLEDS right FT. No seizures noted. Encephalopathy of uncertain etiology, not explained by his current stroke. Would d/c keppra, observe on EEG, obtain vitamin studies, and also would obtain MRI to r/o central pontine myelinolysis or other etiology causing his AMS Seems more awake today: eyes opened, followed intermittently for night time nanny. MRI if no improvement once pacing wires out. - Acute ischemic right MCA stroke (HCC) New L sided weakness 10/11; CTH with large R MCA infarct with associated mass effect. 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 ?Remaining findings are otherwise essentially unchanged since prior CT from 10/15/2017.There is no significant change in intracranial mass effect with partial effacement of the right lateral ventricle with no significant midline shift on the current exam. ?There is stable herniation of the infarcted parenchyma through the craniectomy defect without evidence of impingement. Mental status if is improving, following commands intermittently, hypernatremia improving leukocytosis EEG 10/20: bilateral cortical dysfunction maximum in the right hemisphere with potential epileptogenicity arising from the right frontocentral region. There is also evidence for a severe diffuse encephalopathy. No EEG seizures were recorded - keppra 750 mg bid x 2 weeks held d/t AMS of unclear etiology - stop all sedation/psychoactive meds other than keprra. - address hypernatremia slowly correcting - continue EEG off keppra - Acquired skull defect S/p right hemicraniectomy Will need helmet when out of the ICU - Leukocytosis Febrile episode 10/18 up to 39. Persistent leukocytosis. Lines 10/17. Abd soft, no pain at RUQ palpaton, however mental status altered. Associated with cholestasis (though bilirubin improving) and mild cytolytic syndrome. RUQ ulrasound sludge PCT 0.5 Continue to follow cultures (2 contaminants: difteroids and MRSE 1/2) d/w ID. On vanco and cipro --> zosyn. D/w ID have stopped/continue off. - Asthma Preop on Breo Ellipta and Flonase A/P - continue inhalers (budesonide, duonebs). No wheezing. Vented. - Acute respiratory insufficiency, postoperative Tachypneic thoug markedly improved Central vs. Mechanical (elevated lt karen, chest open, prolonged disease) Maintain on PSV with PS titrated to comfort. - Acute kidney injury (HCC) Baseline Scr 0.89 to Seems mostly prerenal. Off diuretic, replete free water. Transfuse if BP low. - Acute blood loss anemia Transfuse to HCT 30 if low BP - Elevated LFTs Mild cytolytic and cholestatic syndrome. Bili improving. Hold keppra (trend is slightly down since off keppra) No Fever/WBC still up but stable - no abd pain elicited. Ruq US - sludge - Severe protein-calorie malnutrition (HCC) [place]ak. Tolerating TF SUBJECTIVE INTERVAL HISTORY: No acute events PERTINENT REVIEW OF SYSTEMS: See Assessment and Plan. Remaining ROS reviewed and negative. PHYSICAL EXAM AND PERTINENT DATA: Infusions: None Vital Signs: BP 133/80 Pulse 99 Temp 38.1 ?C (100.6 ?F) (Oral) Resp 28 Ht 182.9 cm (6') Wt 86.3 kg (190 lb 4.1 oz) SpO2 98% BMI 25.8 kg/m2 Neuro: Unresponsive Cardiovascular: Rhythm: regular rate and rhythm MAP: 71 mm Hg CVP: 10 mm Hg PAP: mm Hg Cardiac Index: L/min/m2 Recent Labs 10/23/17 1156 CK 190 Pulmonary: Clear to auscultation and Breath sounds equal Ventilator: Trach/psv Recent Labs 10/24/17 0746 10/24/17 0621 10/24/17 0350 PH 7.45 7.40 7.32* PCO2 33* 36 46 PO2 114* 129* 97* HCO3 23 22 23 O2HB 97 96 95 LACT 1.1 1.0 0.5 CXR Findings: increased atelectatic changes Gastrointestinal: Abdominal: Soft and Non-tender Recent Labs 10/24/171410/23/17 0030 10/22/17 0200 TPROT 6.0* 5.7* 5.6* ALB 2.7* 2.3* 2.4* ALKPHOS 238* 238* 211* TBILI 2.8* 3.8* 3.8* AST 120* 285* 275* ALT 238* 292* 240* Heme: Recent Labs 10/24/171410/23/17 0030 10/22/17 0200 WBC 16.05* 16.59* 14.51* HB 9.2* 9.3* 8.4* HCT 29.6* 29.7* 26.6* PLT 442* 473* 458* Endocrine: Renal: Stable Intake/Output Summary (Last 24 hours) at 10/24/17 0659 Last data filed at 10/24/17 0630 Gross per 24 hour Intake 3529 ml Output 3930 ml Net -401 ml Recent Labs 10/24/17 00110/23/17199910/23/17 1511 10/23/17 0030 10/22/17 1830 NA 151* 152* 152* < > 155* < > 156* K 4.6 -- -- -- 4.2 -- 4.4 CHLOR 119* -- -- -- 125* -- 126* CO2 23 -- -- -- 19* -- 22 BUN 40* -- -- -- 38* -- 39* CREAT 0.78 -- -- -- 0.82 -- 0.79 GLUC 154* -- -- -- 126* -- 140* < > = values in this interval not displayed. Recent Labs 10/24/171410/23/17 00310/22/17 1830 CA 8.0* 8.4* 7.8* Drug Blood Levels: I have discussed the case and the plan and management of the patient's care with the primary surgical team and consulting services, the bedside nurse and the respiratory therapist. SIGNATURE: Simin Montes De Oca MD DATE of SERVICE: 10/24/2017 TIME of SERVICE: 9:14 AM GASA + ALL Collected: 10/24/2017 Status: F Source: [facility] 7:46 AM [facility] RADIANCE USE ONLY REPOSITORY TYPE CODE TESTS RESULT OUT OF REFERENCE UNITS RANGE LAB PH 7.35-7.45 pH 7.45 LAB PCO2 34-46 mm Hg pCO2 Low 33 LAB PO2 85-95 mm Hg pO2 High 114 LAB BE mmol/L Base Excess 0 LAB HCO3 22-26 mmol/L Bicarbonate 23 LAB CO2CT 22.0-28.0 mmol/L CO2 Content 24 LAB O2HB 95-98 % Oxyhemoglobin, Art. 97 LAB COHB 0-5.0 % Carboxyhemoglobin, 1.8 Art LAB MHGB 0.4-1.5 % Methemoglobin Low 0.1 LAB TEMP C Temperature, Body 37.0 LAB PHTC 7.35-7.45 pH, Temp Corrected 7.45 LAB PCO2T 34-46 mm Hg pCO2, Temp Low Correct 33 LAB PO2T mm Hg pO2, Temp Corrected 114 LAB NAB 135-146 mmol/L Sodium,Whole High Bld 149 LAB KWB 3.5-5.0 mmol/L Potassium, Whole Bld 4.5 LAB HGBB 13.0-17.0 g/dL Low Hemoglobin,Total,A 9.5 CL LAB HCTB 39.0-51.0 % Hematocrit, Low ACL 29 LAB IC 1.08-1.30 mmol/L Calcium, Ion, WB 1.22 LAB GLB 60-105 mg/dL Glucose,Whole High Bld 130 LAB LACT 0.5-2.2 mmol/L Lactate 1.1 LAB ACBDTE Notify Date, Art [id number] LAB ACBTME Notify Time, Art Performed By: #### ALLBG #### [facility] [address] [id number] SODIUM Collected: 10/24/2017 Status: F Source: [place] 7:32 AM [facility] REPOSITORY TYPE CODE TESTS RESULT OUT OF REFERENCE UNITS RANGE LAB NA 136-144 mmol/L High Sodium 151 Performed By: #### NA #### [facility] [address] [place], [place] [address] GASA + ALL Collected: 10/24/2017 Status: F Source: [facility] 6:21 AM [facility] RADIANCE USE ONLY REPOSITORY TYPE CODE TESTS RESULT OUT OF REFERENCE UNITS RANGE LAB PH 7.35-7.45 pH 7.40 LAB PCO2 34-46 mm Hg pCO2 36 LAB PO2 85-95 mm Hg pO2 High 129 LAB BE mmol/L Base Excess NEG 2 LAB HCO3 22-26 mmol/L Bicarbonate 22 LAB CO2CT 22.0-28.0 mmol/L CO2 Content 23 LAB O2HB 95-98 % Oxyhemoglobin, Art. 96 LAB COHB 0-5.0 % Carboxyhemoglobin,A 1.6 rt LAB MHGB 0.4-1.5 % Methemoglobin 0.7 LAB TEMP C Temperature, Body 37.0 LAB PHTC 7.35-7.45 pH, Temp Corrected 7.40 LAB PCO2T 34-46 mm Hg pCO2, Temp Correct 36 LAB PO2T mm Hg pO2, Temp Corrected 129 LAB NAB 135-146 mmol/L Sodium,Whole Bld High 150 LAB KWB 3.5-5.0 mmol/L Potassium, Whole Bld 3.8 LAB HGBB 13.0-17.0 g/dL Low Hemoglobin,Total,AC 8.7 L LAB HCTB 39.0-51.0 % Hematocrit, ACL Low 27 LAB IC 1.08-1.30 mmol/L Calcium, Ion, WB 1.20 LAB GLB 60-105 mg/dL Glucose,Whole Bld High 138 LAB LACT 0.5-2.2 mmol/L Lactate 1.0 Performed By: #### ALLBG #### [facility] [address] [place], [place] [address] XR CHEST 1V FRONTAL Observed: 10/24/2017 Status: F Source: [facility] 4:20 AM [facility] REPOSITORY * * *Final Report* * * DATE OF EXAM: Oct 24 2017 4:20AM IVANNA [id number] - XR CHEST 1V FRONTAL PORT / PROCEDURE REASON: Postoperative state * * * * Physician Interpretation * * * * EXAMINATION: CHEST RADIOGRAPH (PORTABLE SINGLE VIEW AP) Exam Date/Time: 10/24/2017 4:20 AM Indication: Postoperative state MQ: XCP_4 Comparison: 1 day prior RESULT: See impression. IMPRESSION: Lines, tubes, and devices: Patient is status post median sternotomy with endovascular stent graft traversing the arch and proximal descending thoracic aorta. Tracheostomy tube, feeding tube, left subclavian central venous catheter and mediastinal drains remain in place. Lungs and pleura: Lungs remain mildly hyperinflated. There is persistent elevation of the left hemidiaphragm. There are small bilateral pleural effusions with adjacent atelectasis or aspiration/pneumonia with pulmonary venous congestion. Biapical pleural thickening is likely postinflammatory in nature. Cardiomediastinal silhouette: The cardiomediastinal silhouette is within normal limits. Other: Surgical clips are noted in the right axilla. Few retained epicardial pacer leads are present. Silver Wrapper: AMY Transcribe Date/Time: Oct 24 2017 10:31A Dictated by : MARISELA MONACO MD This examination was interpreted and the report reviewed and electronically signed by: MARISELA MONACO MD on Oct 24 2017 10:32AM EST [id number] GASA + ALL Collected: 10/24/2017 Status: F Source: [place] FOR 3:50 AM [facility] USE ONLY REPOSITORY TYPE CODE TESTS RESULT OUT OF REFERENCE UNITS RANGE LAB PH 7.35-7.45 pH Low 7.32 LAB PCO2 34-46 mm Hg pCO2 46 LAB PO2 85-95 mm Hg pO2 High 97 LAB BE mmol/L Base Excess NEG 3 LAB HCO3 22-26 mmol/L Bicarbonate 23 LAB CO2CT 22.0-28.0 mmol/L CO2 Content 24 LAB O2HB 95-98 % Oxyhemoglobin, Art. 95 LAB COHB 0-5.0 % Carboxyhemoglobin,A 1.9 rt LAB MHGB 0.4-1.5 % Methemoglobin 0.5 LAB TEMP C Temperature, Body 37.0 LAB PHTC 7.35-7.45 pH, Temp Low Corrected 7.32 LAB PCO2T 34-46 mm Hg pCO2, Temp Correct 46 LAB PO2T mm Hg pO2, Temp Corrected 97 LAB NAB 135-146 mmol/L Sodium,Whole Bld High 148 LAB KWB 3.5-5.0 mmol/L Potassium, Whole Bld 4.4 LAB HGBB 13.0-17.0 g/dL Low Hemoglobin,Total,AC 9.9 L LAB HCTB 39.0-51.0 % Hematocrit, ACL Low 31 LAB IC 1.08-1.30 mmol/L Calcium, Ion, WB 1.26 LAB GLB 60-105 mg/dL Glucose,Whole Bld High 153 LAB LACT 0.5-2.2 mmol/L Lactate 0.5 Performed By: #### ALLBG #### [facility] [address], [place] [address] SODIUM Collected: 10/24/2017 Status: F Source: [place] 3:46 AM [facility] REPOSITORY TYPE CODE TESTS RESULT OUT OF REFERENCE UNITS RANGE LAB NA 136-144 mmol/L High Sodium 150 Performed By: #### NA #### [facility] [address] [place], [place] [address] GASA + ALL Collected: 10/24/2017 Status: F Source: [place] FOR 12:23 AM [facility] RADIANCE USE ONLY REPOSITORY TYPE CODE TESTS RESULT OUT OF REFERENCE UNITS RANGE LAB PH 7.35-7.45 pH 7.37 LAB PCO2 34-46 mm Hg pCO2 36 LAB PO2 85-95 mm Hg pO2 High 168 LAB BE mmol/L Base Excess NEG 4 LAB HCO3 22-26 mmol/L Bicarbonate Low 20 LAB CO2CT 22.0-28.0 mmol/L CO2 Content Low 21 LAB O2HB 95-98 % Oxyhemoglobin, Art. 97 LAB COHB 0-5.0 % Carboxyhemoglobin,A 1.6 rt LAB MHGB 0.4-1.5 % Methemoglobin 0.9 LAB TEMP C Temperature, Body 37.0 LAB PHTC 7.35-7.45 pH, Temp Corrected 7.37 LAB PCO2T 34-46 mm Hg pCO2, Temp Correct 36 LAB PO2T mm Hg pO2, Temp Corrected 168 LAB NAB 135-146 mmol/L Sodium,Whole Bld High 150 LAB KWB 3.5-5.0 mmol/L Potassium, Whole Bld 4.0 LAB HGBB 13.0-17.0 g/dL Low Hemoglobin,Total,AC 8.5 L LAB HCTB 39.0-51.0 % Hematocrit, ACL Low 26 LAB IC 1.08-1.30 mmol/L Calcium, Ion, WB 1.19 LAB GLB 60-105 mg/dL Glucose,Whole Bld High 135 LAB LACT 0.5-2.2 mmol/L Lactate 0.9 Performed By: #### ALLBG #### [facility] [address] [place], [place] [address] CBC Collected: 10/24/2017 Status: F Source: [place] 12:15 AM [facility] REPOSITORY TYPE CODE TESTS RESULT OUT OF REFERENCE UNITS RANGE LAB WBC 3.70-11.00 k/uL WBC High 16.05 LAB RBC 4.20-6.00 m/uL Low RBC 3.08 LAB HGB 13.0-17.0 g/dL Low Hemoglobin 9.2 LAB HCT 39.0-51.0 % Low Hematocrit 29.6 LAB MCV 80.0-100.0 fL MCV 96.1 LAB MCH 26.0-34.0 pG MCH 29.9 LAB MCHC 30.5-36.0 g/dL MCHC 31.1 LAB RDWCV 11.5-15.0 % RDW-CV High 17.4 LAB PLTCT 150-400 k/uL Platelet High Count 442 LAB MPV 9.0-12.7 fL MPV 10.6 LAB ABSNUC <0.01 k/uL Absolute High nRBC 0.01 Performed By: #### CBC, CMP #### [facility] [address] [place], [place] [address] COMP METABOLIC PANEL Collected: 10/24/2017 Status: F Source: [place] 12:15 AM [facility] REPOSITORY TYPE CODE TESTS RESULT OUT OF REFERENCE UNITS RANGE LAB TP 6.3-8.0 g/dL Low Protein, Total 6.0 LAB ALB 3.9-4.9 g/dL Low Albumin 2.7 LAB CA 8.5-10.2 mg/dL Low Calcium, Total 8.0 LAB TBIL 0.2-1.3 mg/dL Bilirubin, High Total 2.8 LAB ALKP 36-108 U/L Alkaline High Phosphatase 238 LAB AST 14-40 U/L AST High 120 LAB GLU 74-99 mg/dL Glucose High 154 Result Comment: The [place] Diabetes Association (ADA) provides guidance for cutoff values for fasting glucose and random glucose. The ADA defines fasting as no caloric intake for at least 8 hours. Fas ting plasma glucose results between 100 to 125 mg/dL indicate increased risk for diabetes (prediabetes). Fasting plasma glucose results greater than or equal to 126 mg/dL meet the criteria for diagnosis of diabetes. In the absence of unequivocal hyperglycemia, results should be confirmed by repeat testing. In a patient with classic symptoms of hyperglycemia or hyperglycemic crisis, random plasma glucose results greater than or equal to 200 mg/dL meet the criteria for diagnosis of diabetes. Reference: Standards of Medical Care in Diabetes 2016, [place] [employer] Association. Diabetes Care. 2016.39(Suppl 1). LAB BUN 9-24 mg/dL BUN High 40 LAB CRET 0.73-1.22 mg/dL Creatinine 0.78 LAB NA 136-144 mmol/L Sodium High 151 LAB K 3.7-5.1 mmol/L Potassium 4.6 LAB CL 97-105 mmol/L Chloride High 119 LAB CO2 22-30 mmol/L CO2 23 LAB AGAP 9-18 mmol/L Anion Gap 9 LAB ALT 10-54 U/L ALT High 238 LAB GFRAA eGFR- Amer. >60 LAB GFRNAA . eGFR-All Other Races >60 Result Comment: eGFR (Estimated GFR) Units of measure: mL/min/1.73 meters squared eGFR is derived from the reexpressed MDRD Study equation using the following parameters: serum creatinine, age, gender and race. The creatinine assay has been calibrated to be traceable to IDMS. An eGFR <60 mL/min/1.73m2 for >3 months is consistent with chronic kidney disease. Refer to KDOQI guidelines for clinical interpretation. In patients with unstable renal function, e.g. those with acute kidney injury, the eGFR may not accurately reflect actual GFR. Performed By: #### CBC, CMP #### [facility] [address] [place], [place] [address] GASA + ALL Collected: 10/23/2017 Status: F Source: [place] FOR 8:11 PM [facility] RADIANCE USE ONLY REPOSITORY TYPE CODE TESTS RESULT OUT OF REFERENCE UNITS RANGE LAB PH 7.35-7.45 pH Low 7.33 LAB PCO2 34-46 mm Hg pCO2 44 LAB PO2 85-95 mm Hg pO2 High 132 LAB BE mmol/L Base Excess NEG 3 LAB HCO3 22-26 mmol/L Bicarbonate 23 LAB CO2CT 22.0-28.0 mmol/L CO2 Content 24 LAB O2HB 95-98 % Oxyhemoglobin, Art. 97 LAB COHB 0-5.0 % Carboxyhemoglobin,A 1.1 rt LAB MHGB 0.4-1.5 % Methemoglobin 0.5 LAB TEMP C Temperature, Body 37.0 LAB PHTC 7.35-7.45 pH, Temp Low Corrected 7.33 LAB PCO2T 34-46 mm Hg pCO2, Temp Correct 44 LAB PO2T mm Hg pO2, Temp Corrected 132 LAB NAB 135-146 mmol/L Sodium,Whole Bld High 151 LAB KWB 3.5-5.0 mmol/L Potassium, Whole Bld 4.1 LAB HGBB 13.0-17.0 g/dL Low Hemoglobin,Total,AC 9.4 L LAB HCTB 39.0-51.0 % Hematocrit, ACL Low 29 LAB IC 1.08-1.30 mmol/L Calcium, Ion, WB 1.22 LAB GLB 60-105 mg/dL Glucose,Whole Bld High 141 LAB LACT 0.5-2.2 mmol/L Lactate 0.9 Performed By: #### ALLBG #### [facility] [address] [place], [place] [address] SODIUM Collected: 10/23/2017 Status: F Source: [place] 8:00 PM [facility] REPOSITORY TYPE CODE TESTS RESULT OUT OF REFERENCE UNITS RANGE LAB NA 136-144 mmol/L High Sodium 152 Performed By: #### NA #### [facility] [address] [place], [place] [address] CASE MANAGEM Observed: 10/23/2017 Status: COMPLETED Source: [place] 5:02 PM [facility] REPOSITORY HNO ID: [id number] Author: Anna Fiore) Harley Service: Care Management Author Type: Registered Nurse Type: Care Mgt Progress Note Filed: 10/23/2017 5:09 PM Note Text: CARE MANAGEMENT PROGRESS NOTE SERVICE DATE: 10/23/2017 SERVICE TIME: 5:02PM LOS: 16 days FREEDOM OF CHOICE GIVEN: Yes to patient's and daughter. Financial Disclosure Provided The patient and/or family has been given the Provider List: Yes Provider List: LTAC Met with patient's and daughter this afternoon to discuss transition planning. CM presented the family with an LTAC list for the [place] area closer to their home and an LTAC list for the [place] area. Family was encouraged to tour the facilities they are interested in. CM contact information is available to the patient's family should they have any questions or concerns. Case Management will continue to follow patient for discharge needs/planning. SIGNATURE: Anna Souza RN PATIENT NAME: Jose Gustafson DATE: October 23, 2017 TIME: 5:02 PM PAGER/CONTACT #: [phone] GASA + ALL Collected: 10/23/2017 Status: F Source: [facility] 3:17 PM [facility] RADIANCE USE ONLY REPOSITORY TYPE CODE TESTS RESULT OUT OF REFERENCE UNITS RANGE LAB PH 7.35-7.45 pH 7.41 LAB PCO2 34-46 mm Hg pCO2 36 LAB PO2 85-95 mm Hg pO2 High 146 LAB BE mmol/L Base Excess NEG 2 LAB HCO3 22-26 mmol/L Bicarbonate 22 LAB CO2CT 22.0-28.0 mmol/L CO2 Content 23 LAB O2HB 95-98 % Oxyhemoglobin, Art. 97 LAB COHB 0-5.0 % Carboxyhemoglobin,A 0.8 rt LAB MHGB 0.4-1.5 % Methemoglobin 1.1 LAB TEMP C Temperature, Body 37.0 LAB PHTC 7.35-7.45 pH, Temp Corrected 7.41 LAB PCO2T 34-46 mm Hg pCO2, Temp Correct 36 LAB PO2T mm Hg pO2, Temp Corrected 146 LAB NAB 135-146 mmol/L Sodium,Whole Bld High 150 LAB KWB 3.5-5.0 mmol/L Potassium, Whole Bld 4.2 LAB HGBB 13.0-17.0 g/dL Low Hemoglobin,Total,AC 9.8 L LAB HCTB 39.0-51.0 % Hematocrit, ACL Low 30 LAB IC 1.08-1.30 mmol/L Calcium, Ion, WB 1.22 LAB GLB 60-105 mg/dL Glucose,Whole Bld High 145 LAB LACT 0.5-2.2 mmol/L Lactate 1.3 Performed By: #### ALLBG #### [facility] [address] [place], [place] [address] SODIUM Collected: 10/23/2017 Status: F Source: [place] 3:11 PM [facility] REPOSITORY TYPE CODE TESTS RESULT OUT OF REFERENCE UNITS RANGE LAB NA 136-144 mmol/L High Sodium 152 Performed By: #### NA #### [facility] [address] [place], [place] [address] VITAMIN B1,WHOLE BLD Collected: 10/23/2017 Status: F Source: [place] 3:11 PM [facility] REPOSITORY TYPE CODE TESTS RESULT OUT OF REFERENCE UNITS RANGE LAB VITB1 70-180 nmol/L High Vitamin B1 235 Whole Bld Result Comment: (NOTE) INTERPRETIVE INFORMATION: Vitamin B1, Whole Blood This assay measures the concentration of thiamine diphosphate (TDP), the primary active form of vitamin B1. Approximately 90 percent of vitamin B1 present in whole blood is TDP. Thiamine and thiamine monophosphate, which comprise the remaining 10 percent, are not measured. Test developed and characteristics determined by [facility]. See Compliance Statement B: [email or web address]/ Performed by [facility], [address] [place] [id number] [email or web address], Lucien Najera MD, Lab. Director Performed By: #### B1VIT #### [facility] [address] [place] [address] [phone] PROGRESS Observed: 10/23/2017 Status: COMPLETED Source: [place] 2:25 PM [facility] REPOSITORY HNO ID: [id number] Author: Simin Montes De Oca Service: (none) Author Type: Anesthesiologist Type: Progress Notes Filed: 10/23/2017 2:31 PM Note Text: [facility] Progress Note Name: Jose Gustafson COORDINATION OF CARE NOTE: Indication for Surgery: Spontaneous Rupture of Aorta LVEF: Normal RVF: Normal Important/Relevant PMH/PSH: HTN, asthma, hx kidney stones Preoperative Hospital Course (narrative): 52 yo M with PMH HTN, Asthma, and hx of kidney stones who is transferred to [facility] for 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 Hypotension, cardiac insufficiency on norepinephrine, vasopressin, and epoprostenol. Returned to OR 10/08 for exploration and large amount of clots were removed but no active bleeding. Chest closure attempted 10/10 but failed 2/2 desaturation. Early AM 10/11 2 CLOT for left sided weakness. CTH with large large right MCA infarct with associated mass effect. Repeat imaging with evolution of R MCA infarct with increased edema now s/p right decompressive hemicraniectomy per Neurosurgery on 10/12. Issues to communicate at signout: Off sedation. Unresponsive today CT recent stable/no seizure activity MRI - if no improvement in mental status (will need d/c wires prior) Correction of hypernatremia. 163-> 145 (water deficit 5L - attempt replace over 2 days with sodium monitoring from ABG) Continue to monitor Na q 4 and adjust free water as needed. OTHER PROBLEMS I MANAGED DURING THIS ENCOUNTER: Problem [place] Coma Scale Total Score 3-8 (Hcc) Appreciate neuro input: S/p large R.MCA infarct s/p aortic arch repair, underwent hemicraniectomy 10/12, imaging stable with reduced mass effect and no hemorrhagic conversion. Exam shows pt unable to follow commands NIHSS 34, repeat CTH 10/20 showed petechial hemorrhage w/in evolving R.MCA territory infarct. BEM showing PLEDS right FT. No seizures noted. Encephalopathy of uncertain etiology, not explained by his current stroke. Would d/c keppra, observe on EEG, obtain vitamin studies, and also would obtain MRI to r/o central pontine myelinolysis or other etiology causing his AMS Acute Ischemic Right Mca Stroke (Hcc) New L sided weakness 10/11; CTH with large R MCA infarct with associated mass effect. 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 ?Remaining findings are otherwise essentially unchanged since prior CT from 10/15/2017.There is no significant change in intracranial mass effect with partial effacement of the right lateral ventricle with no significant midline shift on the current exam. ?There is stable herniation of the infarcted parenchyma through the craniectomy defect without evidence of impingement. Mental status if is improving, following commands intermittently, hypernatremia improving leukocytosis EEG 10/20: bilateral cortical dysfunction maximum in the right hemisphere with potential epileptogenicity arising from the right frontocentral region. There is also evidence for a severe diffuse encephalopathy. No EEG seizures were recorded - keppra 750 mg bid x 2 weeks held d/t AMS of unclear etiology - stop all sedation/psychoactive meds other than keprra. - address hypernatremia (for correction to 145 water deficit 5L , will replete over 2 days) Leukocytosis Febrile episode 10/18 up to 39. Persistent leukocytosis. Lines 10/17. Abd soft, no pain at RUQ palpaton, however mental status altered. Associated with cholestasis (though bilirubin improving) and mild cytolytic syndrome. RUQ ulrasound sludge PCT 0.5 Continue to follow cultures (2 contaminants: difteroids and MRSE 1/2) d/w ID. On vanco and cipro --> zosyn. D/w ID have stopped/continue off. Acute Kidney Injury (Hcc) Baseline Scr 0.89 to Seems mostly prerenal. Off diuretic, replete free water. Transfuse if BP low. Elevated Lfts Mild cytolytic and cholestatic syndrome. Bili improving. Hold keppra. Fever/WBC - no abd pain elicited. Ruq US - sludge SUBJECTIVE INTERVAL HISTORY: as above PERTINENT REVIEW OF SYSTEMS: See Assessment and Plan. Remaining ROS reviewed and negative. PHYSICAL EXAM AND PERTINENT DATA: Infusions: insulin Vital Signs: BP 133/80 Pulse 91 Temp 37.7 ?C (99.9 ?F) (Christian Thermistor) Resp (!) 35 Ht 182.9 cm (6') Wt 88.7 kg (195 lb 8.8 oz) SpO2 100% BMI 26.52 kg/m2 Neuro: Unresponsive Cardiovascular: Rhythm: regular rate and rhythm MAP: 94 mm Hg CVP: mm Hg PAP: mm Hg Cardiac Index: L/min/m2 Recent Labs 10/23/17 1156 CK 190 Pulmonary: Clear to auscultation and Breath sounds equal Ventilator: Intubated: PSV; Recent Labs 10/23/17 1237 10/23/17 1030 10/23/17 0840 PH 7.41 7.44 7.38 PCO2 36 34 39 PO2 151* 150* 156* HCO3 22 22 23 O2HB 98 97 98 LACT 1.1 1.1 1.2 CXR Findings: stable Gastrointestinal: Abdominal: Soft and Non-tender Recent Labs 10/23/17 0030 10/22/17 0200 10/21/17 0005 TPROT 5.7* 5.6* 5.4* ALB 2.3* 2.4* 2.4* ALKPHOS 238* 211* 194* TBILI 3.8* 3.8* 4.7* AST 285* 275* 191* ALT 292* 240* 178* Heme: Recent Labs 10/23/17 0030 10/22/17 0200 10/21/17 0005 WBC 16.59* 14.51* 16.36* HB 9.3* 8.4* 8.3* HCT 29.7* 26.6* 26.7* PLT 473* 458* 423* Endocrine: Renal: Stable Intake/Output Summary (Last 24 hours) at 10/23/17 0659 Last data filed at 10/23/17 0630 Gross per 24 hour Intake 6163.7 ml Output 3910 ml Net 2253.7 ml Recent Labs 10/23/17 1021 10/23/17 0630 10/23/17 0430 10/23/17 0030 10/22/17 1830 10/22/17 0200 NA 153* 153* 153* < > 155* < > 156* < > 161* K -- -- -- -- 4.2 -- 4.4 -- 4.1 CHLOR -- -- -- -- 125* -- 126* -- 129* CO2 -- -- -- -- 19* -- 22 -- 21* BUN -- -- -- -- 38* -- 39* -- 46* CREAT -- -- -- -- 0.82 -- 0.79 -- 1.00 GLUC -- -- -- -- 126* -- 140* -- 165* < > = values in this interval not displayed. Recent Labs 10/23/17 0030 10/22/17 1830 10/22/17 0200 CA 8.4* 7.8* 7.6* Drug Blood Levels: I have discussed the case and the plan and management of the patient's care with the primary surgical team and consulting services, the bedside nurse and the respiratory therapist. SIGNATURE: Simin Montes De Oca MD DATE of SERVICE: 10/23/2017 TIME of SERVICE: 2:25 PM CONSULT Observed: 10/23/2017 Status: COMPLETED Source: [place] 2:08 PM [facility] REPOSITORY HNO ID: [id number] Author: Randee Lin) Maude Service: Wound Care Team Author Type: Nurse Specialist Type: Consults Filed: 10/23/2017 2:20 PM Note Text: A/P: Coccyx extending onto bilateral buttock: Stage 1 pressure injury. Area is red, pink, light purple and 5% hawkins, intact, non-blanching skin discoloration. Edges are very irregular and surrounding skin is red, intact and blanches. Entire are is cool to the touch secondary to being on a cooling blanket. Etiology is likely pressure secondary to located over a bony prominence, prolonged hospitalization with decreased mobility. 1.) Coccyx extending onto bilateral buttock: Stage 1 pressure injury, acquired Recommendations: - Desitin to perianal, bilateral buttock, coccyx BID. - Maintain Air Turn AND Position (TAP) System. Turn patient every two hours using the TAP wedges avoiding pressure over the coccyx/sacral region. - Sween cream to bilateral feet/heels BID. - Maintain low air loss bed. - Maintain Oleg-Sundar heel protectors to bilateral lower extremities, to off-load heels, while in bed. - Nutrition consult advised for optimized wound healing. - Wound care will sign off on patient, reconsult Wound Care if wounds worsens or additional recommendations needed. 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 WCCT consulted for coccyx discoloration. Transferred to [facility] for 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 On 10/08/2017?underwent Total arch replacement with FET under [facility]. OR course complicated by transient or mild hypotension and Coagulopathy/bleeding. Arrived to CVICU intubated, and sedated, on iVeletri, open chest, maintain overnight, plan to go back to OR later today for possible closure. ?Coagulopathy/bleeding intraop, transfused multiple blood products in OR, transfuse postop as needed. ?Hypotensive intraop, arrived on 4mcg Levo and 0.02 Vaso. The patient continued to bleed overnight and went back to the OR the following morning for chest exploration / Evacuation of hematoma / Open large amount of clots were removed but no active bleeding and wound VAC placed. On 10/12/2017 went to OR for Right decompressive hemicraniectomy for R MCA stroke and malignant cerebral edema. Remains in the ICU, intubated with mechanical ventilation, off sedation. ? Current interventions in use: TAP: Yes. Turning wedges/positioner: Yes. Offloading boots: Yes. Head cushion/positioner: Yes. Seating cushion: No Incontinence management: Yes. Current Bed: low air-loss ? Barriers to healing: Diabetic: No PAD/PVD/Insufficiency: No Immunosuppression: No Sickle Cell Disease: No Chemotherapy: No Radiation Therapy: No Spinal Cord Disease: No Mobility: difficult to assess Nicotine: Tobacco Use: Types: Cigars ? Nutrition Consult: No, already following Obesity: No Current Antibiotic Coverage: No. Warfarin/Heparin: Yes Steroids: No Inotropes/Pressors: No PHYSICAL EXAM: BP 133/80 Pulse 91 Temp (Src) 99.9 (Christian Thermistor) Resp 35 Ht 6' 0 (1.83m) Wt 195 lb 8.8 oz (88.7kg) SpO2 100% BMI 26.52 kg/(m2). 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 Related Pressure Injury No 10/23/2017 2:00 PM Dressing Status None: Open to Air 10/23/2017 2:00 PM Frequency of Dressing Change Twice a Day 10/23/2017 2:00 PM Dressing Change Due 10/23/17 10/23/2017 2:00 PM Dressing/Treatment Type Protective Barrier Paste 10/23/2017 2:00 PM Drainage Description None 10/23/2017 2:00 PM Drainage Amount None 10/23/2017 2:00 PM Odor No 10/23/2017 2:00 PM Wound Surface Color Red;Brashear;Light Purple;Hawkins 10/23/2017 2:00 PM Percentage of Each Color 80/5/10/5 10/23/2017 2:00 PM Edges Intact;Irregular 10/23/2017 2:00 PM Surrounding Skin Intact;Other, See Comment 10/23/2017 2:00 PM Length in Cm - Weekly 3 Cm 10/23/2017 2:00 PM Width in Cm - Weekly 5 Cm 10/23/2017 2:00 PM Depth in Cm - Weekly 0 Cm 10/23/2017 2:00 PM Undermining Length (Cm) - Weekly 0 Cm 10/23/2017 2:00 PM Tunnel Length (cm) - Weekly 0 Cm 10/23/2017 2:00 PM SURGICAL INCISIONS Surgical Incision 10/07/17 Chest - Midsternal (Active) Dressing Status None: Open to Air 10/23/2017 7:30 AM Frequency of Dressing Change As Needed 10/22/2017 7:30 AM Dressing Change Due 10/16/17 10/15/2017 7:30 PM Dressing /Treatment Type Dry Sterile Dressing 10/21/2017 7:30 PM Incision Closures Intact 10/22/2017 7:30 PM Drainage Description None 10/23/2017 7:30 AM Drainage Amount None 10/23/2017 7:30 AM Edges Intact 10/23/2017 7:30 AM Hematoma No 10/23/2017 7:30 AM Surgical Incision 10/12/17 1451 Head (Active) Dressing Status None: Open to Air 10/23/2017 7:30 AM Frequency of Dressing Change Other: See Comment 10/12/2017 2:30 PM Dressing /Treatment Type Dry Cover Dressing 10/21/2017 7:30 PM Incision Closures Alvina 10/23/2017 7:30 AM Drainage Description None 10/23/2017 7:30 AM Drainage Amount None 10/23/2017 7:30 AM Edges Intact 10/23/2017 7:30 AM Hematoma No 10/23/2017 7:30 AM SURGICAL WOUNDS PMHx: PAST MEDICAL HISTORY Diagnosis Date - Acute kidney injury (HCC) 10/09/2017 - History of kidney stones - Hypertension - Stroke (cerebrum) (HCC) 10/11/2017 - Unspecified asthma(493.90) PSxHx: PAST SURGICAL HISTORY Procedure Laterality Date - COLONOSCOP W/ OR W/O BRSH SPEC 08/23/2014 Colonoscopy - LITHOTRIPSY EXTRACORP SHOCK WAVE(ESWL) 18 months ago - PAST SURGICAL HISTORY OF 2012 left ankle ORIF- hardware - PAST SURGICAL HISTORY OF 2012 ORIF left wrist - hardware - REMOVAL OF HEEL SPUR 2002, 2004 Bilateral - REPAIR ING HERNIA,5+Y/O,REDUCIBL Hernia repair, inguinal, as infant SOCHx: Social History Marital status: Spouse name: Years of education: Number of children: Social History Main Topics Smoking status: Light Tobacco Smoker Packs/day: 0.00 Years: 0.00 Types: Cigars Smokeless status: Never Used Alcohol use: Yes 6.0 oz/week 4 Cans of Beer (12oz) per week Drug use: No Sexual activity: Yes Partners with: Female HOSPITAL MEDICATIONS: Current hospital medications: metoprolol tartrate (short acting) 25 mg tab(s) (LOPRESSOR) 25 mg ORAL TID metoprolol 5 mg injection (LOPRESSOR) 5 mg INTRAVENOUS q 4 H PRN dextrose 5% in water iv infusion 50 mL/hr INTRAVENOUS CONTINUOUS aspirin 81 mg chewable tab(s) 81 mg ORAL DAILY heparin 5,000 Units injection 5,000 Units SUBCUTANEOUS q 12 H Chlorhexidine Gluconate 0.12 % 15 mL (PERIDEX) 15 mL ORAL q 6 H pantoprazole 20 mg CUP (PROTONIX) 20 mg ORAL/FEEDING TUBE DAILY (6 AM) senna-docusate 8.6-50 mg 1 tablet (SENNA-S) 1 tablet ORAL BID bisacodyl 10 mg suppository (DULCOLAX) 10 mg RECTAL DAILY PRN potassium chloride iv piggyback 10 mEq/100mL 10 mEq INTRAVENOUS PRN potassium chloride iv piggyback 20 mEq/50 mL 20 mEq INTRAVENOUS PRN potassium chloride 40-120 mEq oral powder (KLOR-CON) 40-120 mEq ORAL/FEEDING TUBE PRN 0.9% NaCl 3-5 mL 3-5 mL INTRAVENOUS q 12 H 0.9% NaCl 10 mL 10 mL INTRAVENOUS q 12 H insulin regular human iv bolus 2-10 Units 2-10 Units INTRAVENOUS PRN insulin regular 250 units in NaCl 0.9% 250 mL iv infusion - HVI CVICU NOMOGRAM 0.5-40 Units/hr INTRAVENOUS CONTINUOUS dextrose 50% in water 25 mL syringe 12.5 g INTRAVENOUS PRN insulin glargine 0-40 Units pen (long acting) (LANTUS SOLOSTAR, BASAGLAR) 0-40 Units SUBCUTANEOUS As Directed PHENYLephrine 0.1 mg injection 100 mcg INTRAVENOUS PRN acetaminophen 650 mg tab(s) (TYLENOL) 650 mg ORAL/FEEDING TUBE q 4 H PRN albuterol 2.5 mg /3 mL (0.083 %) 2.5 mg (PROVENTIL) 2.5 mg INHALATION QID budesonide 1 mg/2 mL 1 mg nebulizer suspension (PULMICORT) 1 mg INHALATION BID ALLERGIES: ALLERGIES Allergen Reactions - Cats - Grass Pollen Itching Labs: WBC Date Value Ref Range Status 10/23/2017 16.59 (H) 3.70 - 11.00 k/uL Final Hemoglobin Date Value Ref Range Status 10/23/2017 9.3 (L) 13.0 - 17.0 g/dL Final Hematocrit Date Value Ref Range Status 10/23/2017 29.7 (L) 39.0 - 51.0 % Final Platelet Count Date Value Ref Range Status 10/23/2017 473 (H) 150 - 400 k/uL Final Hemoglobin A1C (%) Date Value 10/07/2017 4.8 Glucose Date Value Ref Range Status 10/23/2017 126 (H) 74 - 99 mg/dL Final Comment: The [place] [employer] (ADA) provides guidance for cutoff values for fasting glucose and random glucose. The ADA defines fasting as no caloric intake for at least 8 hours. Fasting plasma glucose results between 100 to 125 mg/dL indicate increased risk for diabetes (prediabetes). Fasting plasma glucose results greater than or equal to 126 mg/dL meet the criteria for diagnosis of diabetes. In the absence of unequivocal hyperglycemia, results should be confirmed by repeat testing. In a patient with classic symptoms of hyperglycemia or hyperglycemic crisis, random plasma glucose results greater than or equal to 200 mg/dL meet the criteria for diagnosis of diabetes. Reference: Standards of Medical Care in Diabetes 2016, [place] [employer] Association. Diabetes Care. 2016.39(Suppl 1). Protein, Total Date Value Ref Range Status 10/23/2017 5.7 (L) 6.3 - 8.0 g/dL Final Albumin Date Value Ref Range Status 10/23/2017 2.3 (L) 3.9 - 4.9 g/dL Final Imaging: none Photography: A photo was taken of the patient's wound(s). Photos can be found under the Get Images tab on [employer]. The purpose of the photo(s) is to optimize the patient's medical care and allow a visual aid to their wound evaluation and progress. ? Photo was taken of: coccyx Verbal consent was obtained: No Explain: patient unable to consent ? Photos are uploaded per the wound palliative care physician (WCC) and may not be immediately available for viewing. Contact WCC with questions Randee Santoro APRN.ROVING HAULER, CWOCN, WCCT CONSULT PROG Observed: 10/23/2017 Status: COMPLETED Source: [place] 1:44 PM [facility] REPOSITORY HNO ID: [id number] Author: Joseph Be Service: Neurology Author Type: Resident Type: Consult Progress Note Filed: 10/23/2017 1:53 PM Note Text: Attestation signed by Deepika Curtis at 10/23/2017 8:50 PM (Updated) [facility] STAFF PHYSICIAN NOTE OF PERSONAL INVOLVEMENT IN CARE I have reviewed the progress note obtained and documented by the resident and I personally participated in the curry components. I have discussed the case and management of the patient's care. The following comments revise or confirm relevant curry components of the note. No improvement in mentation Eye opening to physical stimuli Pupils 2 mm b/l reactive Crossed midline with passive head turn to right Not following commands. IMP: large evolving right MCA territory ischemic stroke status post hemicraniectomy - will titrate down potentially sedating meds - AST ALt elevation -unclear etiology - will d/c keppra for now - if any EEG Sz -- will start vimpat 100 mg IV BID - continue Bedside EEG - MRI brain when able ??osmotic demyelination syndrome ; slow normalization of Na - will continue supportive care and monitor for improvement as na leves improve and also with hepatic clearance of prior sedating meds ? Deepika Curtis, Vascular Neurology Staff, Pager : [phone] October 23, 2017 8:44 PM CONSULT PROGRESS NOTE NEURO STROKE SERVICE DATE: October 23, 2017 SERVICE TIME: 1:45 PM Subjective INTERVAL HISTORY: No acute events overnight. MEDICATIONS Current hospital medications: metoprolol tartrate (short acting) 25 mg tab(s) (LOPRESSOR) 25 mg ORAL TID metoprolol 5 mg injection (LOPRESSOR) 5 mg INTRAVENOUS q 4 H PRN dextrose 5% in water iv infusion 50 mL/hr INTRAVENOUS CONTINUOUS aspirin 81 mg chewable tab(s) 81 mg ORAL DAILY heparin 5,000 Units injection 5,000 Units SUBCUTANEOUS q 12 H Chlorhexidine Gluconate 0.12 % 15 mL (PERIDEX) 15 mL ORAL q 6 H pantoprazole 20 mg CUP (PROTONIX) 20 mg ORAL/FEEDING TUBE DAILY (6 AM) senna-docusate 8.6-50 mg 1 tablet (SENNA-S) 1 tablet ORAL BID bisacodyl 10 mg suppository (DULCOLAX) 10 mg RECTAL DAILY PRN potassium chloride iv piggyback 10 mEq/100mL 10 mEq INTRAVENOUS PRN potassium chloride iv piggyback 20 mEq/50 mL 20 mEq INTRAVENOUS PRN potassium chloride 40-120 mEq oral powder (KLOR-CON) 40-120 mEq ORAL/FEEDING TUBE PRN 0.9% NaCl 3-5 mL 3-5 mL INTRAVENOUS q 12 H 0.9% NaCl 10 mL 10 mL INTRAVENOUS q 12 H insulin regular human iv bolus 2-10 Units 2-10 Units INTRAVENOUS PRN insulin regular 250 units in NaCl 0.9% 250 mL iv infusion - HVI CVICU NOMOGRAM 0.5-40 Units/hr INTRAVENOUS CONTINUOUS dextrose 50% in water 25 mL syringe 12.5 g INTRAVENOUS PRN insulin glargine 0-40 Units pen (long acting) (LANTUS SOLOSTAR, BASAGLAR) 0-40 Units SUBCUTANEOUS As Directed PHENYLephrine 0.1 mg injection 100 mcg INTRAVENOUS PRN acetaminophen 650 mg tab(s) (TYLENOL) 650 mg ORAL/FEEDING TUBE q 4 H PRN albuterol 2.5 mg /3 mL (0.083 %) 2.5 mg (PROVENTIL) 2.5 mg INHALATION QID budesonide 1 mg/2 mL 1 mg nebulizer suspension (PULMICORT) 1 mg INHALATION BID Objective PHYSICAL EXAM Vital Signs: BP 133/80 Pulse 91 Temp 37.7 ?C (99.9 ?F) (Christian Thermistor) Resp (!) 35 Ht 182.9 cm (6') Wt 88.7 kg (195 lb 8.8 oz) SpO2 100% BMI 26.52 kg/m2 GENERAL: unable to arouse, on fentanyl HEENT: surgical site clean/dry RESPIRATORY: Ventilated on trach CARDIOVASCULAR: RRR, GI: Soft abdomen, nontender, nondistended EXTREMITIES: no cyanosis, no edema SKIN: Skin color, texture, turgor normal. . NEUROLOGICAL: LOC: 2 - arousable to painful stimulation only 2 LOC Questions: 2 - none correct 2 LOC Commands: 2 - neither correct 2 LOC Normal Gaze: 0 - normal gaze 0 Visual Helms: 2 - complete hemianopia 2 Facial Palsy: 0 - normal 0 Motor Left Arm: 4 - no movement at all 4 Motor Right Arm: 4 - no movement at all 4 Motor Left Le - no movement at all 4 Motor Right Le - no movement at all 4 Limb Ataxia: X - unable to assess due to amputation, fusion, etc X Sensory: 1 - mild to moderate unilateral loss but patient aware of touch (or aphasic, confused) 1 Language: 3 - mute, global aphasia, coma 3 Dysarthria: X - intubation or mech barrier X Extinction/Neglect: 0 - normal, none detected (or visual loss alone) 0 Total Daily NIHSS: 28 (10/23/17 1345 : Joseph (Res) Haile) 28 MENTAL STATUS: Unable to arouse CRANIAL NERVES: PERRLA and Face symmetric MOTOR: flaccid, no spontaneous movements REFLEXES: Tejada's left, brisk reflexes throughout SENSATION: no movement to nox stim DATA: CBC, Coags, BMP, Mg, Phos Recent Labs 10/23/17 1237 10/23/17 1030 10/23/17 1021 10/23/17 0840 10/23/17 0630 10/23/17 0430 10/23/17 0030 10/22/17 1830 10/22/17 0200 10/21/17 0005 WBC -- -- -- -- -- -- -- -- -- 16.59* -- -- -- 14.51* -- 16.36* HB -- -- -- -- -- -- -- -- -- 9.3* -- -- -- 8.4* -- 8.3* HCT -- -- -- -- -- -- -- -- -- 29.7* -- -- -- 26.6* -- 26.7* PLT -- -- -- -- -- -- -- -- -- 473* -- -- -- 458* -- 423* NA -- -- 153* -- -- 153* -- 153* < > 155* < > 156* < > 161* < > 161* K -- -- -- -- -- -- -- -- -- 4.2 -- 4.4 -- 4.1 -- 4.6 CHLOR -- -- -- -- -- -- -- -- -- 125* -- 126* -- 129* -- 130* CO2 -- -- -- -- -- -- -- -- -- 19* -- 22 -- 21* -- 21* BUN -- -- -- -- -- -- -- -- -- 38* -- 39* -- 46* -- 52* CREAT -- -- -- -- -- -- -- -- -- 0.82 -- 0.79 -- 1.00 -- 0.94 GLUC -- -- -- -- -- -- -- -- -- 126* -- 140* -- 165* -- 144* IC 1.20 1.20 -- 1.24 < > -- < > -- < > -- < > -- < > -- < > 1.24 CA -- -- -- -- -- -- -- -- -- 8.4* -- 7.8* -- 7.6* -- 7.9* < > = values in this interval not displayed. MEDICAL EVENTS: No medical events have been recorded. PROBLEM LIST: Principal Problem: Dissection of thoracic aorta (HCC) POA: Unknown Active Problems: Acute ischemic right MCA stroke (HCC) POA: No Acquired skull defect POA: No Leukocytosis POA: Unknown Asthma POA: Yes Acute respiratory insufficiency, postoperative POA: Unknown Acute blood loss anemia POA: Unknown Acute kidney injury (HCC) POA: Unknown Severe protein-calorie malnutrition (HCC) Elevated LFTs POA: Unknown Resolved Problems: Cardiac insufficiency (HCC) POA: Yes Aortic dissection (HCC) POA: Yes Atelectasis POA: Unknown Hypoxia POA: Unknown Postoperative hypotension POA: No Pain, postoperative, acute POA: No Cerebral edema (HCC) POA: No Lactic acid acidosis POA: Unknown Coagulopathy (HCC) POA: Unknown Impression/Recommendations Jose Gustafson is a 52 year old, male, patient. S/p large R.MCA infarct s/p aortic arch repair, underwent hemicraniectomy 10/12, imaging stable with reduced mass effect and no hemorrhagic conversion. Exam shows pt unable to follow commands NIHSS 34, repeat CTH 10/20 showed petechial hemorrhage w/in evolving R.MCA territory infarct. BEM showing PLEDS right FT. No seizures noted. Encephalopathy of uncertain etiology, not explained by his current stroke. Would d/c keppra, observe on EEG, obtain vitamin studies, and also would obtain MRI to r/o central pontine myelinolysis or other etiology causing his AMS. Stroke Mechanism Stroke Mechanism - LIP ENTRY ONLY Ischemic Stroke or TIA: Ischemic Stroke TOAST Mechanism ([facility]F-MODIFIED): Stroke of Other Determined Etiology Stroke of Other Determined Etiology: Dissection Total Daily NIHSS: 28 PLAN -d/c keppra. If seizes, will start vimpat 100 mg bid. -MRI brain when able -Vitamin B1 and B6 -Bedside EEG continue monitoring while off keppra -slowly correcting hypernatremia Imaging Ordered Today: None Joseph Be MD PGY-4 Neurology October 23, 2017 1:49 PM CONSULT PROG Observed: 10/23/2017 Status: COMPLETED Source: [place] 12:55 PM [facility] REPOSITORY HNO ID: [id number] Author: Renee Olivo (Pharmacist) Service: Pharmacy Author Type: Pharmacist Type: Consult Progress Note Filed: 10/23/2017 12:56 PM Note Text: PHARMACY VANCOMYCIN DOSING NOTE Patient Name: Jose Gustafson Admission Date: 10/07/2017 Date of Consult: 10/23/2017 Time of Consult: 12:55 PM Indication: Bloodstream infection Goal Range: 10-20 mcg/mL RECOMMENDATIONS/PLAN: Pharmacy consulted for vancomycin dosing for Jose Gustafson, a 52 year old, male who is being treated with vancomycin for BSI. The primary service has discontinued vancomycin therapy. Pharmacy vancomycin dosing service will sign off. Thank you for allowing us to participate in this patient's care. Please contact pharmacy if questions. Renee Olivo, Pharmacist [facility] ALL Collected: 10/23/2017 Status: F Source: [place] FOR 12:37 PM [facility] RADIANCE USE ONLY REPOSITORY TYPE CODE TESTS RESULT OUT OF REFERENCE UNITS RANGE LAB PH 7.35-7.45 pH 7.41 LAB PCO2 34-46 mm Hg pCO2 36 LAB PO2 85-95 mm Hg pO2 High 151 LAB BE mmol/L Base Excess NEG 2 LAB HCO3 22-26 mmol/L Bicarbonate 22 LAB CO2CT 22.0-28.0 mmol/L CO2 Content 23 LAB O2HB 95-98 % Oxyhemoglobin, Art. 98 LAB COHB 0-5.0 % Carboxyhemoglobin,A 1.6 rt LAB MHGB 0.4-1.5 % Methemoglobin Low 0.0 LAB TEMP C Temperature, Body 37.0 LAB PHTC 7.35-7.45 pH, Temp Corrected 7.41 LAB PCO2T 34-46 mm Hg pCO2, Temp Correct 36 LAB PO2T mm Hg pO2, Temp Corrected 151 LAB NAB 135-146 mmol/L Sodium,Whole Bld High 152 LAB KWB 3.5-5.0 mmol/L Potassium, Whole Bld 4.3 LAB HGBB 13.0-17.0 g/dL Low Hemoglobin,Total,AC 8.8 L LAB HCTB 39.0-51.0 % Hematocrit, ACL Low 28 LAB IC 1.08-1.30 mmol/L Calcium, Ion, WB 1.20 LAB GLB 60-105 mg/dL Glucose,Whole Bld High 121 LAB LACT 0.5-2.2 mmol/L Lactate 1.1 Performed By: #### ALLBG #### [place] [id number] [place] [id number] VITAMIN B1,WHOLE BLD Collected: 10/23/2017 Status: F Source: [place] 11:56 AM [facility] [place] REPOSITORY TYPE CODE TESTS RESULT OUT OF REFERENCE UNITS RANGE LAB VITB1 Unable Vitamin B1 to assay. Whole Bld Specimen improperly collected/handle d. Result Comment: RECEIVED LITHIUM HEPARIN (LIGHT GREEN) WHOLE BLOOD, TEST REQUIRES SODIUM HEPARIN (DARK GREEN) WHOLE BLOOD, NOTIFIED [place] ON [id number], BK Account Credited Performed By: #### B1VIT, CK #### [place] [id number] [place] [id number] #### VITB6 #### [employer] [address] [place] [id number] [phone] CK Collected: 10/23/2017 Status: F Source: [facility] 11:56 AM [facility] [place] REPOSITORY TYPE CODE TESTS RESULT OUT OF RANGE REFERENCE UNITS LAB CK 51-298 U/L CK 190 Result Comment: Please note the updated, gender-specific reference range for this test (effective 07/12/2016). Performed By: #### B1VIT, CK #### [place] [id number] [place], [place] [address] #### VITB6 #### [address] [place] [address] [phone] VITAMIN B6 PLASMA Collected: 10/23/2017 Status: F Source: [place] 11:56 AM [facility] REPOSITORY TYPE CODE TESTS RESULT OUT OF REFERENCE UNITS RANGE LAB VITB6 20.0-125.0 nmol/L Vitamin B6 25.0 Plasma Result Comment: (NOTE) INTERPRETIVE INFORMATION: Vitamin B6 (Pyridoxal 5-Phosphate) Pyridoxal 5'-phosphate measured in a specimen collected following an 8-hour or overnight fast accurately indicates vitamin B6 nutritional status. Non-fasting specimen concentration reflects recent vitamin intake. Test developed and characteristics determined by [facility]. See Compliance Statement B: [email or web address]/CS Performed by [facility], [address] [place] [address] [email or web address], Lucien Najera MD, Lab. Director Performed By: #### B1VIT, CK #### [facility] [address] [place] [address] #### VITB6 #### Formerly [facility], [facility] [address] [place] [address] [phone] PROGRESS Observed: 10/23/2017 Status: COMPLETED Source: [place] 11:46 AM [facility] REPOSITORY HNO ID: [id number] Author: Cheng (Linda) Heriberto Service: Critical Care Author Type: Nurse Specialist Type: Progress Notes Filed: 10/23/2017 11:47 AM Note Text: Discussed patient in Interdisiplinary Rounds. Attending rounds: Clinical Nurse Specialist, Nurse Coordinator, Lumber Cutter, and Ethicist. 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 Immediate plan is to advise for a family meeting to discuss progress. Cheng Louis MSN, APPLICATIONS SALES CONSULTANT, ACCNS-AG, CCRN GASA + ALL Collected: 10/23/2017 Status: F Source: [facility] 10:30 AM [facility] RADIANCE USE ONLY REPOSITORY TYPE CODE TESTS RESULT OUT OF REFERENCE UNITS RANGE LAB PH 7.35-7.45 pH 7.44 LAB PCO2 34-46 mm Hg pCO2 34 LAB PO2 85-95 mm Hg pO2 High 150 LAB BE mmol/L Base Excess NEG 1 LAB HCO3 22-26 mmol/L Bicarbonate 22 LAB CO2CT 22.0-28.0 mmol/L CO2 Content 23 LAB O2HB 95-98 % Oxyhemoglobin, Art. 97 LAB COHB 0-5.0 % Carboxyhemoglobin,A 1.2 rt LAB MHGB 0.4-1.5 % Methemoglobin 0.9 LAB TEMP C Temperature, Body 37.0 LAB PHTC 7.35-7.45 pH, Temp Corrected 7.44 LAB PCO2T 34-46 mm Hg pCO2, Temp Correct 34 LAB PO2T mm Hg pO2, Temp Corrected 150 LAB NAB 135-146 mmol/L Sodium,Whole Bld High 152 LAB KWB 3.5-5.0 mmol/L Potassium, Whole Bld 4.0 LAB HGBB 13.0-17.0 g/dL Low Hemoglobin,Total,AC 9.4 L LAB HCTB 39.0-51.0 % Hematocrit, ACL Low 29 LAB IC 1.08-1.30 mmol/L Calcium, Ion, WB 1.20 LAB GLB 60-105 mg/dL Glucose,Whole Bld High 119 LAB LACT 0.5-2.2 mmol/L Lactate 1.1 Performed By: #### ALLBG #### [facility] [address] [place], [place] [address] SODIUM Collected: 10/23/2017 Status: F Source: [place] 10:21 AM [facility] REPOSITORY TYPE CODE TESTS RESULT OUT OF REFERENCE UNITS RANGE LAB NA 136-144 mmol/L High Sodium 153 Performed By: #### NA #### [facility] [address] [place], [place] [address] CONSULT PROG Observed: 10/23/2017 Status: COMPLETED Source: [place] 9:39 AM [facility] REPOSITORY HNO ID: [id number] Author: Freedom Benton Service: Infectious Disease Author Type: Physician Type: Consult Progress Note Filed: 10/23/2017 1:30 PM Note Text: INFECTIOUS DISEASE CONSULT SERVICE PROGRESS NOTE Date: October 23, 2017 Patient Name: Jose Gustafson examined and assessed Interval Events: no issues overnight 07/30 blood cx 10/21 ROVING HAULER not responsive MEDICATIONS Medications reviewed. Current antibiotics include: vancomcyin EXAMINATION: Vital signs: BP 133/80 Pulse 94 Temp 37.8 ?C (100 ?F) (Oral) Resp (!) 35 Ht 182.9 cm (6') Wt 88.7 kg (195 lb 8.8 oz) SpO2 99% BMI 26.52 kg/m2 supine intubated via tracheostomy not communicative sternal wound stable abd quiet craniotomy surtures clean arterial line and left central line no rash but echymosis left inner thigh LABORATORY DATA: Lab reviewed procalcitionin normal MICROBIOLOGY DATA: . ? blood cx 10/21 1 ROVING HAULER likely contaminant blood cx 10/17 1 bottles ditptheroid likely contaminant no SA carriage in nares 10/14 tissue negative cx including afb BAL 10/15 NGT D Specimen #: [id number] Submitting Physician: ARPIT MCKENZIE M.D. 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 See comment ? imaging preop CTA intramural type dissection (blood within lumen and blood in right chest and around pericardium) ? CXR today chest tubes median sternotomy aortic stent in place ? CT brain pre craniomtomy reviewd hemmorhage on right ? Petechial hemorrhage within the evolving right MCA territory infarct is more conspicuous on this current exam. EEG leads on ? ? Impression/Recommendations ?? ? 52 y/o man s/p (10/07/17) total Arch replacement. 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 C/b mild hypotension requiring continued pressors and bleeding s/p multiple blood products in OR with delayed chest closure (10/14) and right cerebral hemmorhage requiring urgent craniotomy for decompression (presenting with left hemiparesis) with leukocytosis (17K) . No fevers and no steroids. Possible infection (wounds clean; lines look ok) vs aspiration (CXR no gross infiltratres). Non infectious causes include ROVING HAULER hemorrhage and dissection Has been on vancomcyin and ciprofloxacin since surgery now on zoysn for possible aspiration. ? 1. discontinue vancomycin as single ROVING HAULER /10/21 likely contaminant and procalctionin negative spoke to ICU team ? Signature: Freedom Benton MD Pager: [phone] Date of Service: October 23, 2017 GASA + ALL Collected: 10/23/2017 Status: F Source: [facility] 8:40 AM [facility] RADIANCE USE ONLY REPOSITORY TYPE CODE TESTS RESULT OUT OF REFERENCE UNITS RANGE LAB PH 7.35-7.45 pH 7.38 LAB PCO2 34-46 mm Hg pCO2 39 LAB PO2 85-95 mm Hg pO2 High 156 LAB BE mmol/L Base Excess NEG 2 LAB HCO3 22-26 mmol/L Bicarbonate 23 LAB CO2CT 22.0-28.0 mmol/L CO2 Content 24 LAB O2HB 95-98 % Oxyhemoglobin, Art. 98 LAB COHB 0-5.0 % Carboxyhemoglobin, 1.5 Art LAB MHGB 0.4-1.5 % Methemoglobin 0.5 LAB TEMP C Temperature, Body 37.0 LAB PHTC 7.35-7.45 pH, Temp Corrected 7.38 LAB PCO2T 34-46 mm Hg pCO2, Temp Correct 39 LAB PO2T mm Hg pO2, Temp Corrected 156 LAB NAB 135-146 mmol/L Sodium,Whole High Bld 152 LAB KWB 3.5-5.0 mmol/L Potassium, Whole Bld 3.9 LAB HGBB 13.0-17.0 g/dL Low Hemoglobin,Total,A 9.5 CL LAB HCTB 39.0-51.0 % Hematocrit, Low ACL 30 LAB IC 1.08-1.30 mmol/L Calcium, Ion, WB 1.24 LAB GLB 60-105 mg/dL Glucose,Whole High Bld 126 LAB LACT 0.5-2.2 mmol/L Lactate 1.2 LAB ACBDTE Notify Date, Art [id number] LAB ACBTME Notify Time, Art Performed By: #### ALLBG #### [facility] [address] [place], [place] [address] GASA + ALL Collected: 10/23/2017 Status: F Source: [place] FOR 6:33 AM [facility] RADIANCE USE ONLY REPOSITORY TYPE CODE TESTS RESULT OUT OF REFERENCE UNITS RANGE LAB PH 7.35-7.45 pH 7.40 LAB PCO2 34-46 mm Hg pCO2 35 LAB PO2 85-95 mm Hg pO2 High 129 LAB BE mmol/L Base Excess NEG 3 LAB HCO3 22-26 mmol/L Bicarbonate Low 21 LAB CO2CT 22.0-28.0 mmol/L CO2 Content 22 LAB O2HB 95-98 % Oxyhemoglobin, Art. 97 LAB COHB 0-5.0 % Carboxyhemoglobin,A 1.6 rt LAB MHGB 0.4-1.5 % Methemoglobin 0.7 LAB TEMP C Temperature, Body 37.0 LAB PHTC 7.35-7.45 pH, Temp Corrected 7.40 LAB PCO2T 34-46 mm Hg pCO2, Temp Correct 35 LAB PO2T mm Hg pO2, Temp Corrected 129 LAB NAB 135-146 mmol/L Sodium,Whole Bld High 153 LAB KWB 3.5-5.0 mmol/L Potassium, Whole Bld 3.9 LAB HGBB 13.0-17.0 g/dL Low Hemoglobin,Total,AC 9.2 L LAB HCTB 39.0-51.0 % Hematocrit, ACL Low 29 LAB IC 1.08-1.30 mmol/L Calcium, Ion, WB 1.22 LAB GLB 60-105 mg/dL Glucose,Whole Bld High 140 LAB LACT 0.5-2.2 mmol/L Lactate 1.1 Performed By: #### ALLBG #### [facility] [address] [place], [place] [address] SODIUM Collected: 10/23/2017 Status: F Source: [place] 6:30 AM [facility] REPOSITORY TYPE CODE TESTS RESULT OUT OF REFERENCE UNITS RANGE LAB NA 136-144 mmol/L High Sodium 153 Performed By: #### NA #### [facility] [address] [place], [place] [address] XR CHEST 1V FRONTAL Observed: 10/23/2017 Status: F Source: [facility] 4:40 AM [facility] REPOSITORY * * *Final Report* * * DATE OF EXAM: Oct 23 2017 4:40AM JIX [id number] - XR CHEST 1V FRONTAL PORT / PROCEDURE REASON: Postoperative state * * * * Physician Interpretation * * * * EXAMINATION: CHEST RADIOGRAPH (PORTABLE SINGLE VIEW AP) Exam Date/Time: 10/23/2017 4:40 AM Indication: Postoperative state MQ: XCP_4 Comparison: 1 day prior RESULT: See impression. IMPRESSION: Lines, tubes, and devices: Unchanged Lungs and pleura: Small pleural effusions and bibasilar atelectasis unchanged Cardiomediastinal silhouette: Heart size upper normal Other: Silver Wrapper: AMY Transcribe Date/Time: Oct 23 2017 8:59A Dictated by : GORDON SUNSHINE MD This examination was interpreted and the report reviewed and electronically signed by: GORDON SUNSHINE MD on Oct 23 2017 8:59AM EST [id number] GASA + ALL Collected: 10/23/2017 Status: F Source: [facility] 4:31 AM [facility] RADIANCE USE ONLY REPOSITORY TYPE CODE TESTS RESULT OUT OF REFERENCE UNITS RANGE LAB PH 7.35-7.45 pH 7.35 LAB PCO2 34-46 mm Hg pCO2 39 LAB PO2 85-95 mm Hg pO2 High 114 LAB BE mmol/L Base Excess NEG 3 LAB HCO3 22-26 mmol/L Bicarbonate Low 21 LAB CO2CT 22.0-28.0 mmol/L CO2 Content 23 LAB O2HB 95-98 % Oxyhemoglobin, Art. 96 LAB COHB 0-5.0 % Carboxyhemoglobin,A 1.1 rt LAB MHGB 0.4-1.5 % Methemoglobin 0.8 LAB TEMP C Temperature, Body 37.0 LAB PHTC 7.35-7.45 pH, Temp Corrected 7.35 LAB PCO2T 34-46 mm Hg pCO2, Temp Correct 39 LAB PO2T mm Hg pO2, Temp Corrected 114 LAB NAB 135-146 mmol/L Sodium,Whole Bld High 152 LAB KWB 3.5-5.0 mmol/L Potassium, Whole Bld 4.2 LAB HGBB 13.0-17.0 g/dL Low Hemoglobin,Total,AC 9.9 L LAB HCTB 39.0-51.0 % Hematocrit, ACL Low 31 LAB IC 1.08-1.30 mmol/L Calcium, Ion, WB 1.22 LAB GLB 60-105 mg/dL Glucose,Whole Bld High 140 LAB LACT 0.5-2.2 mmol/L Lactate 0.9 Performed By: #### ALLBG #### [facility] [address] [place], [place] [address] SODIUM Collected: 10/23/2017 Status: F Source: [place] 4:30 AM [facility] REPOSITORY TYPE CODE TESTS RESULT OUT OF REFERENCE UNITS RANGE LAB NA 136-144 mmol/L High Sodium 153 Performed By: #### NA #### [facility] [address] [place], [place] [address] GASA + ALL Collected: 10/23/2017 Status: F Source: [place] FOR 2:36 AM [facility] RADIANCE USE ONLY REPOSITORY TYPE CODE TESTS RESULT OUT OF REFERENCE UNITS RANGE LAB PH 7.35-7.45 pH Low 7.34 LAB PCO2 34-46 mm Hg pCO2 43 LAB PO2 85-95 mm Hg pO2 High 147 LAB BE mmol/L Base Excess NEG 2 LAB HCO3 22-26 mmol/L Bicarbonate 23 LAB CO2CT 22.0-28.0 mmol/L CO2 Content 24 LAB O2HB 95-98 % Oxyhemoglobin, Art. 98 LAB COHB 0-5.0 % Carboxyhemoglobin,A 1.4 rt LAB MHGB 0.4-1.5 % Methemoglobin Low 0.0 LAB TEMP C Temperature, Body 37.0 LAB PHTC 7.35-7.45 pH, Temp Low Corrected 7.34 LAB PCO2T 34-46 mm Hg pCO2, Temp Correct 43 LAB PO2T mm Hg pO2, Temp Corrected 147 LAB NAB 135-146 mmol/L Sodium,Whole Bld High 155 LAB KWB 3.5-5.0 mmol/L Potassium, Whole Bld 4.4 LAB HGBB 13.0-17.0 g/dL Low Hemoglobin,Total,AC 9.9 L LAB HCTB 39.0-51.0 % Hematocrit, ACL Low 31 LAB IC 1.08-1.30 mmol/L Calcium, Ion, WB High 1.31 LAB GLB 60-105 mg/dL Glucose,Whole Bld High 131 LAB LACT 0.5-2.2 mmol/L Lactate 1.1 Performed By: #### ALLBG #### [facility] [address] [place] [address] SODIUM Collected: 10/23/2017 Status: F Source: [place] 2:30 AM [facility] REPOSITORY TYPE CODE TESTS RESULT OUT OF REFERENCE UNITS RANGE LAB NA 136-144 mmol/L High Sodium 154 Performed By: #### NA #### [facility] [address] [place], [place] [address] GASA + ALL Collected: 10/23/2017 Status: F Source: [place] FOR 12:31 AM [facility] RADIANCE USE ONLY REPOSITORY TYPE CODE TESTS RESULT OUT OF REFERENCE UNITS RANGE LAB PH 7.35-7.45 pH 7.43 LAB PCO2 34-46 mm Hg pCO2 Low 32 LAB PO2 85-95 mm Hg pO2 High 129 LAB BE mmol/L Base Excess NEG 2 LAB HCO3 22-26 mmol/L Bicarbonate Low 21 LAB CO2CT 22.0-28.0 mmol/L CO2 Content 22 LAB O2HB 95-98 % Oxyhemoglobin, Art. 97 LAB COHB 0-5.0 % Carboxyhemoglobin,A 1.9 rt LAB MHGB 0.4-1.5 % Methemoglobin 0.6 LAB TEMP C Temperature, Body 37.0 LAB PHTC 7.35-7.45 pH, Temp Corrected 7.43 LAB PCO2T 34-46 mm Hg pCO2, Temp Low Correct 32 LAB PO2T mm Hg pO2, Temp Corrected 129 LAB NAB 135-146 mmol/L Sodium,Whole Bld High 153 LAB KWB 3.5-5.0 mmol/L Potassium, Whole Bld 4.1 LAB HGBB 13.0-17.0 g/dL Low Hemoglobin,Total,AC 9.6 L LAB HCTB 39.0-51.0 % Hematocrit, ACL Low 30 LAB IC 1.08-1.30 mmol/L Calcium, Ion, WB 1.22 LAB GLB 60-105 mg/dL Glucose,Whole Bld High 130 LAB LACT 0.5-2.2 mmol/L Lactate 1.4 Performed By: #### ALLBG #### [facility] [address] [place], [place] [address] CBC Collected: 10/23/2017 Status: F Source: [place] 12:30 AM [facility] REPOSITORY TYPE CODE TESTS RESULT OUT OF REFERENCE UNITS RANGE LAB WBC 3.70-11.00 k/uL WBC High 16.59 LAB RBC 4.20-6.00 m/uL Low RBC 3.14 LAB HGB 13.0-17.0 g/dL Low Hemoglobin 9.3 LAB HCT 39.0-51.0 % Low Hematocrit 29.7 LAB MCV 80.0-100.0 fL MCV 94.6 LAB MCH 26.0-34.0 pG MCH 29.6 LAB MCHC 30.5-36.0 g/dL MCHC 31.3 LAB RDWCV 11.5-15.0 % RDW-CV High 17.6 LAB PLTCT 150-400 k/uL Platelet High Count 473 LAB MPV 9.0-12.7 fL MPV 10.8 LAB ABSNUC <0.01 k/uL Absolute High nRBC 0.02 Performed By: #### CBC, CMP #### [facility] [address], [place] [address] COMP METABOLIC PANEL Collected: 10/23/2017 Status: F Source: [place] 12:30 AM [facility] REPOSITORY TYPE CODE TESTS RESULT OUT OF REFERENCE UNITS RANGE LAB TP 6.3-8.0 g/dL Low Protein, Total 5.7 LAB ALB 3.9-4.9 g/dL Low Albumin 2.3 LAB CA 8.5-10.2 mg/dL Low Calcium, Total 8.4 LAB TBIL 0.2-1.3 mg/dL Bilirubin, High Total 3.8 LAB ALKP 36-108 U/L Alkaline High Phosphatase 238 LAB AST 14-40 U/L AST High 285 LAB GLU 74-99 mg/dL Glucose High 126 Result Comment: The [place] Diabetes Association (ADA) provides guidance for cutoff values for fasting glucose and random glucose. The ADA defines fasting as no caloric intake for at least 8 hours. Fas ting plasma glucose results between 100 to 125 mg/dL indicate increased risk for diabetes (prediabetes). Fasting plasma glucose results greater than or equal to 126 mg/dL meet the criteria for diagnosis of diabetes. In the absence of unequivocal hyperglycemia, results should be confirmed by repeat testing. In a patient with classic symptoms of hyperglycemia or hyperglycemic crisis, random plasma glucose results greater than or equal to 200 mg/dL meet the criteria for diagnosis of diabetes. Reference: Standards of Medical Care in Diabetes 2016, [place] [employer]. Diabetes Care. 2016.39(Suppl 1). LAB BUN 9-24 mg/dL BUN High 38 LAB CRET 0.73-1.22 mg/dL Creatinine 0.82 LAB NA 136-144 mmol/L Sodium High 155 LAB K 3.7-5.1 mmol/L Potassium 4.2 LAB CL 97-105 mmol/L Chloride High 125 LAB CO2 22-30 mmol/L Low CO2 19 LAB AGAP 9-18 mmol/L Anion Gap 11 LAB ALT 10-54 U/L ALT High 292 LAB GFRAA eGFR- Amer. >60 LAB GFRNAA . eGFR-All Other Races >60 Result Comment: eGFR (Estimated GFR) Units of measure: mL/min/1.73 meters squared eGFR is derived from the reexpressed MDRD Study equation using the following parameters: serum creatinine, age, gender and race. The creatinine assay has been calibrated to be traceable to IDMS. An eGFR <60 mL/min/1.73m2 for >3 months is consistent with chronic kidney disease. Refer to KDOQI guidelines for clinical interpretation. In patients with unstable renal function, e.g. those with acute kidney injury, the eGFR may not accurately reflect actual GFR. Performed By: #### CBC, CMP #### [facility] [address] [place], [place] [address] STAPH AUREUS PCR Collected: 10/23/2017 Status: F Source: [place] 12:30 AM [facility] REPOSITORY TYPE CODE TESTS RESULT OUT OF REFERENCE UNITS RANGE LAB SASRC Nasal S aureus Spec Source LAB MRSRES Negative for MRSA MRSA by PCR. PCR LAB SARES Negative for Staph Staphylococcus aureus PCR aureus by PCR. Performed By: #### SAPCR #### [facility] [place] [id number] GASA + ALL Collected: 10/22/2017 Status: F Source: [place] FOR 10:33 PM [facility] RADIANCE USE ONLY REPOSITORY TYPE CODE TESTS RESULT OUT OF REFERENCE UNITS RANGE LAB PH 7.35-7.45 pH 7.45 LAB PCO2 34-46 mm Hg pCO2 30 Low LAB PO2 85-95 mm Hg pO2 134 High LAB BE mmol/L Base Excess NEG 3 LAB HCO3 22-26 mmol/L Bicarbonate 20 Low LAB CO2CT 22.0-28.0 mmol/L CO2 Content 21 Low LAB O2HB 95-98 % 96 Oxyhemoglobin, Art. LAB COHB 0-5.0 % 1.1 Carboxyhemoglobin ,Art LAB MHGB 0.4-1.5 % 1.2 Methemoglobin LAB TEMP C 37.0 Temperature, Body LAB PHTC 7.35-7.45 pH, Temp 7.45 Corrected LAB PCO2T 34-46 mm Hg pCO2, Temp 30 Low Correct LAB PO2T mm Hg pO2, Temp 134 Corrected LAB NAB 135-146 mmol/L 153 High Sodium,Whole Bld LAB KWB 3.5-5.0 mmol/L Potassium, 3.8 Whole Bld LAB HGBB 13.0-17.0 g/dL 9.5 Low Hemoglobin,Total, ACL LAB HCTB 39.0-51.0 % Hematocrit, 30 Low ACL LAB IC 1.08-1.30 mmol/L Calcium, 1.19 Ion, WB LAB GLB 60-105 mg/dL 130 High Glucose,Whole Bld LAB LACT 0.5-2.2 mmol/L Lactate 1.6 LAB ABGCOM Blood Gas O2 Comm, Art Administration Result Comment: 40% Performed By: #### ALLBG #### [facility] [address] [place], [place] [id number] SODIUM Collected: 10/22/2017 Status: F Source: [place] 10:30 PM [facility] REPOSITORY TYPE CODE TESTS RESULT OUT OF REFERENCE UNITS RANGE LAB NA 136-144 mmol/L High Sodium 154 Performed By: #### NA #### [facility] [address] [place], [place] [address] GASA + ALL Collected: 10/22/2017 Status: F Source: [place] FOR 8:36 PM [facility] RADIANCE USE ONLY REPOSITORY TYPE CODE TESTS RESULT OUT OF REFERENCE UNITS RANGE LAB PH 7.35-7.45 pH High 7.48 LAB PCO2 34-46 mm Hg pCO2 Low 28 LAB PO2 85-95 mm Hg pO2 High 153 LAB BE mmol/L Base Excess NEG 2 LAB HCO3 22-26 mmol/L Bicarbonate Low 21 LAB CO2CT 22.0-28.0 mmol/L CO2 Content 22 LAB O2HB 95-98 % Oxyhemoglobin, Art. 98 LAB COHB 0-5.0 % Carboxyhemoglobin,A 1.9 rt LAB MHGB 0.4-1.5 % Methemoglobin Low 0.0 LAB TEMP C Temperature, Body 37.0 LAB PHTC 7.35-7.45 pH, Temp High Corrected 7.48 LAB PCO2T 34-46 mm Hg pCO2, Temp Low Correct 28 LAB PO2T mm Hg pO2, Temp Corrected 153 LAB NAB 135-146 mmol/L Sodium,Whole Bld High 154 LAB KWB 3.5-5.0 mmol/L Potassium, Whole Bld 4.1 LAB HGBB 13.0-17.0 g/dL Low Hemoglobin,Total,AC 9.5 L LAB HCTB 39.0-51.0 % Hematocrit, ACL Low 29 LAB IC 1.08-1.30 mmol/L Calcium, Ion, WB 1.21 LAB GLB 60-105 mg/dL Glucose,Whole Bld High 125 LAB LACT 0.5-2.2 mmol/L Lactate 1.4 Performed By: #### ALLBG #### [facility] [address] [place], [place] [address] SODIUM Collected: 10/22/2017 Status: F Source: [place] 8:30 PM [facility] REPOSITORY TYPE CODE TESTS RESULT OUT OF REFERENCE UNITS RANGE LAB NA 136-144 mmol/L High Sodium 156 Performed By: #### NA #### [facility] [address] [place] [address] GASA + ALL Collected: 10/22/2017 Status: F Source: [place] FOR 6:37 PM [facility] RADIANCE USE ONLY REPOSITORY TYPE CODE TESTS RESULT OUT OF REFERENCE UNITS RANGE LAB PH 7.35-7.45 pH 7.44 LAB PCO2 34-46 mm Hg pCO2 Low 32 LAB PO2 85-95 mm Hg pO2 High 162 LAB BE mmol/L Base Excess NEG 2 LAB HCO3 22-26 mmol/L Bicarbonate Low 21 LAB CO2CT 22.0-28.0 mmol/L CO2 Content 22 LAB O2HB 95-98 % Oxyhemoglobin, Art. 97 LAB COHB 0-5.0 % Carboxyhemoglobin,A 1.8 rt LAB MHGB 0.4-1.5 % Methemoglobin 0.6 LAB TEMP C Temperature, Body 37.0 LAB PHTC 7.35-7.45 pH, Temp Corrected 7.44 LAB PCO2T 34-46 mm Hg pCO2, Temp Low Correct 32 LAB PO2T mm Hg pO2, Temp Corrected 162 LAB NAB 135-146 mmol/L Sodium,Whole Bld High 153 LAB KWB 3.5-5.0 mmol/L Potassium, Whole Bld 4.1 LAB HGBB 13.0-17.0 g/dL Low Hemoglobin,Total,AC 9.8 L LAB HCTB 39.0-51.0 % Hematocrit, ACL Low 30 LAB IC 1.08-1.30 mmol/L Calcium, Ion, WB 1.22 LAB GLB 60-105 mg/dL Glucose,Whole Bld High 138 LAB LACT 0.5-2.2 mmol/L Lactate 1.5 Performed By: #### ALLBG #### [facility] [address] [place], [place] [address] BASIC METABOLIC PANL Collected: 10/22/2017 Status: F Source: [place] 6:30 PM [facility] REPOSITORY TYPE CODE TESTS RESULT OUT OF REFERENCE UNITS RANGE LAB GLU 74-99 mg/dL High Glucose 140 Result Comment: The [place] Diabetes Association (ADA) provides guidance for cutoff values for fasting glucose and random glucose. The ADA defines fasting as no caloric intake for at least 8 hours. Fas ting plasma glucose results between 100 to 125 mg/dL indicate increased risk for diabetes (prediabetes). Fasting plasma glucose results greater than or equal to 126 mg/dL meet the criteria for diagnosis of diabetes. In the absence of unequivocal hyperglycemia, results should be confirmed by repeat testing. In a patient with classic symptoms of hyperglycemia or hyperglycemic crisis, random plasma glucose results greater than or equal to 200 mg/dL meet the criteria for diagnosis of diabetes. Reference: Standards of Medical Care in Diabetes 2016, [place] [employer]. Diabetes Care. 2016.39(Suppl 1). LAB BUN 9-24 mg/dL BUN High 39 LAB CRET 0.73-1.22 mg/dL Creatinine 0.79 LAB NA 136-144 mmol/L Sodium High 156 LAB K 3.7-5.1 mmol/L Potassium 4.4 LAB CL 97-105 mmol/L Chloride High 126 LAB CO2 22-30 mmol/L CO2 22 LAB AGAP 9-18 mmol/L Low Anion Gap 8 LAB CA 8.5-10.2 mg/dL Low Calcium, Total 7.8 LAB GFRAA eGFR- Amer. >60 LAB GFRNAA . eGFR-All Other Races >60 Result Comment: eGFR (Estimated GFR) Units of measure: mL/min/1.73 meters squared eGFR is derived from the reexpressed MDRD Study equation using the following parameters: serum creatinine, age, gender and race. The creatinine assay has been calibrated to be traceable to IDMS. An eGFR <60 mL/min/1.73m2 for >3 months is consistent with chronic kidney disease. Refer to KDOQI guidelines for clinical interpretation. In patients with unstable renal function, e.g. those with acute kidney injury, the eGFR may not accurately reflect actual GFR. Performed By: #### BMP #### [facility] [address] [place] [id number] GASA + ALL Collected: 10/22/2017 Status: F Source: [place] FOR 4:31 PM [facility] RADIANCE USE ONLY REPOSITORY TYPE CODE TESTS RESULT OUT OF REFERENCE UNITS RANGE LAB PH 7.35-7.45 pH 7.44 LAB PCO2 34-46 mm Hg pCO2 34 LAB PO2 85-95 mm Hg pO2 High 145 LAB BE mmol/L Base Excess NEG 1 LAB HCO3 22-26 mmol/L Bicarbonate 22 LAB CO2CT 22.0-28.0 mmol/L CO2 Content 24 LAB O2HB 95-98 % Oxyhemoglobin, Art. 98 LAB COHB 0-5.0 % Carboxyhemoglobin,A 1.1 rt LAB MHGB 0.4-1.5 % Methemoglobin 0.5 LAB TEMP C Temperature, Body 37.0 LAB PHTC 7.35-7.45 pH, Temp Corrected 7.44 LAB PCO2T 34-46 mm Hg pCO2, Temp Correct 34 LAB PO2T mm Hg pO2, Temp Corrected 145 LAB NAB 135-146 mmol/L Sodium,Whole Bld High 155 LAB KWB 3.5-5.0 mmol/L Potassium, Whole Bld 4.6 LAB HGBB 13.0-17.0 g/dL Low Hemoglobin,Total,AC 9.4 L LAB HCTB 39.0-51.0 % Hematocrit, ACL Low 29 LAB IC 1.08-1.30 mmol/L Calcium, Ion, WB 1.21 LAB GLB 60-105 mg/dL Glucose,Whole Bld High 132 LAB LACT 0.5-2.2 mmol/L Lactate 1.3 Performed By: #### ALLBG #### [facility] [address] [place], [place] [address] SODIUM Collected: 10/22/2017 Status: F Source: [place] 4:27 PM [facility] REPOSITORY TYPE CODE TESTS RESULT OUT OF REFERENCE UNITS RANGE LAB NA 136-144 mmol/L High Sodium 156 Performed By: #### NA #### [facility] [address] [place], [place] [address] CONSULT PROG Observed: 10/22/2017 Status: COMPLETED Source: [place] 3:27 PM [facility] REPOSITORY O ID: [id number] Author: Renee Olivo (Pharmacist) Service: Pharmacy Author Type: Pharmacist Type: Consult Progress Note Filed: 10/22/2017 3:34 PM Note Text: PHARMACY VANCOMYCIN DOSING NOTE Patient Name: Jose Gustafson Admission Date: 10/07/2017 Date of Consult: 10/22/2017 Time of Consult: 3:27 PM Indication: Bloodstream infection Goal Range: 10-20 mcg/mL RECOMMENDATIONS/PLAN: Pharmacy consulted for vancomycin dosing for Jose Gustafson, a 52 year old, male who is being treated with vancomycin for BSI. 1. Patient is currently ordered Vancomycin 1.5 g IV q12h. Today is day 1 of therapy. 2. No vancomycin level has been drawn for this dosing regimen. 3. The present dose of vancomycin is the recommended dosage for this patient at this time. Continue therapy as prescribed. 4. The next vancomycin level will be ordered for 10/26/17 unless clinically indicated sooner. (Pharmacy will order) We will follow patient renal function, vancomycin levels and doses with you during the course of therapy. Additional recommendations will appear in follow up notes. If you have any questions, please contact Renee Olivo, Pharmacist at extension [phone]. Age: [age] year old Allergies: ALLERGIES Allergen Reactions - Cats - Grass Pollen Itching Last 3 Encounter Wt Readings: Date: Wt: 10/07/2017 92.7 kg (204 lb 5.9 oz) 09/07/2017 84.6 kg (186 lb 6.4 oz) 08/24/2017 83.5 kg (184 lb) Last 1 Encounter Ht Readings: Date: Ht: 10/07/2017 182.9 cm (6') CrCl: ~93.8 mL/min Temp (24hrs), Av.6 ?C (99.6 ?F), Min:36.7 ?C (98.1 ?F), Max:38.8 ?C (101.8 ?F) - Current Temp: 37.7 ?C (99.9 ?F) Labs BUN (mg/dL) Date Value 10/22/2017 46 (H) 10/21/2017 52 (H) 10/20/2017 47 (H) Creatinine (mg/dL) Date Value 10/22/2017 1.00 10/21/2017 0.94 10/20/2017 0.90 WBC (k/uL) Date Value 10/22/2017 14.51 (H) 10/21/2017 16.36 (H) 10/20/2017 17.81 (H) Vancomycin Levels: Vancomycin, result (ug/mL) Date Value 10/20/2017 11.6 10/17/2017 6.0 Renee Olivo, Pharmacist JAMISONA + ALL Collected: 10/22/2017 Status: F Source: [place] FOR 2:23 PM [facility] USE ONLY REPOSITORY TYPE CODE TESTS RESULT OUT OF REFERENCE UNITS RANGE LAB PH 7.35-7.45 pH High 7.46 LAB PCO2 34-46 mm Hg pCO2 Low 31 LAB PO2 85-95 mm Hg pO2 High 130 LAB BE mmol/L Base Excess NEG 1 LAB HCO3 22-26 mmol/L Bicarbonate Low 21 LAB CO2CT 22.0-28.0 mmol/L CO2 Content 22 LAB O2HB 95-98 % Oxyhemoglobin, Art. 97 LAB COHB 0-5.0 % Carboxyhemoglobin, 1.4 Art LAB MHGB 0.4-1.5 % Methemoglobin 1.0 LAB TEMP C Temperature, Body 37.0 LAB PHTC 7.35-7.45 pH, Temp High Corrected 7.46 LAB PCO2T 34-46 mm Hg pCO2, Temp Low Correct 31 LAB PO2T mm Hg pO2, Temp Corrected 130 LAB NAB 135-146 mmol/L Sodium,Whole High Bld 157 LAB KWB 3.5-5.0 mmol/L Potassium, Whole Bld 3.9 LAB HGBB 13.0-17.0 g/dL Low Hemoglobin,Total,A 9.6 CL LAB HCTB 39.0-51.0 % Hematocrit, Low ACL 30 LAB IC 1.08-1.30 mmol/L Calcium, Ion, WB 1.22 LAB GLB 60-105 mg/dL Glucose,Whole High Bld 113 LAB LACT 0.5-2.2 mmol/L Lactate 1.6 LAB ACBDTE Notify Date, Art 20171022 LAB ACBTME Notify Time, Art [id number] Performed By: #### ALLBG #### [facility] [address], [place] [address] SODIUM Collected: 10/22/2017 Status: F Source: [place] 2:18 PM [facility] REPOSITORY TYPE CODE TESTS RESULT OUT OF REFERENCE UNITS RANGE LAB NA 136-144 mmol/L High Sodium 157 Performed By: #### NA #### [facility] [address] [address] GASA + ALL Collected: 10/22/2017 Status: F Source: [place] FOR 12:17 PM [facility] RADIANCE USE ONLY REPOSITORY TYPE CODE TESTS RESULT OUT OF REFERENCE UNITS RANGE LAB PH 7.35-7.45 pH High 7.46 LAB PCO2 34-46 mm Hg pCO2 Low 32 LAB PO2 85-95 mm Hg pO2 High 147 LAB BE mmol/L Base Excess NEG 1 LAB HCO3 22-26 mmol/L Bicarbonate 22 LAB CO2CT 22.0-28.0 mmol/L CO2 Content 23 LAB O2HB 95-98 % Oxyhemoglobin, Art. 98 LAB COHB 0-5.0 % Carboxyhemoglobin, 1.3 Art LAB MHGB 0.4-1.5 % Methemoglobin 0.5 LAB TEMP C Temperature, Body 37.0 LAB PHTC 7.35-7.45 pH, Temp High Corrected 7.46 LAB PCO2T 34-46 mm Hg pCO2, Temp Low Correct 32 LAB PO2T mm Hg pO2, Temp Corrected 147 LAB NAB 135-146 mmol/L Sodium,Whole High Bld 157 LAB KWB 3.5-5.0 mmol/L Potassium, Whole Bld 4.0 LAB HGBB 13.0-17.0 g/dL Low Hemoglobin,Total,A 9.0 CL LAB HCTB 39.0-51.0 % Hematocrit, Low ACL 28 LAB IC 1.08-1.30 mmol/L Calcium, Ion, WB 1.20 LAB GLB 60-105 mg/dL Glucose,Whole High Bld 132 LAB LACT 0.5-2.2 mmol/L Lactate 1.8 LAB ACBDTE Notify Date, Art 20171022 LAB ACBTME Notify Time, Art Performed By: #### ALLBG #### [facility] [address] [place], [place] [address] SODIUM Collected: 10/22/2017 Status: F Source: [place] 12:09 PM [facility] REPOSITORY TYPE CODE TESTS RESULT OUT OF REFERENCE UNITS RANGE LAB NA 136-144 mmol/L High Sodium 158 Performed By: #### NA #### [facility] [address] [place], [place] [address] PROGRESS Observed: 10/22/2017 Status: COMPLETED Source: [place] 11:56 AM [facility] REPOSITORY HNO ID: [id number] Author: Simin Montes De Oca Service: (none) Author Type: Anesthesiologist Type: Progress Notes Filed: 10/22/2017 11:58 AM Note Text: [facility] Progress Note Name: Jose Gustafson COORDINATION OF CARE NOTE: Indication for Surgery: Spontaneous Rupture of Aorta LVEF: Normal RVF: Normal Important/Relevant PMH/PSH: HTN, asthma, hx kidney stones Preoperative Hospital Course (narrative): 52 yo M with PMH HTN, Asthma, and hx of kidney stones who is transferred to [facility] for 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 Hypotension, cardiac insufficiency on norepinephrine, vasopressin, and epoprostenol. Returned to OR 10/08 for exploration and large amount of clots were removed but no active bleeding. Chest closure attempted 10/10 but failed 2/2 desaturation. Early AM 10/11 2 CLOT for left sided weakness. CTH with large large right MCA infarct with associated mass effect. Repeat imaging with evolution of R MCA infarct with increased edema now s/p right decompressive hemicraniectomy per Neurosurgery on 10/12. Issues to communicate at signout: Off sedation. More responsive CT stable/no seizure activity Attempt partial correction of hypernatremia. 163-> 150 (water deficit for these correcti 3.8 - attempt replace over 2 days with sodium monitoring from ABG) Have decreased the Free water as rate of correction to high. Continue to monitor Na q 4 and adjust free water as needed. OTHER PROBLEMS I MANAGED DURING THIS ENCOUNTER: Active Hospital Problems Diagnosis - Dissection of thoracic aorta (HCC) Patient with chest pain at OSH. CT chest was concerning for aortic dissection starting at the mid arch and descending in the thoracic aorta. Taken to the OR 10/08, brief OR findings greater curvature of the aortic arch was torn longitudinally from innominate artery to distal arch. There was no obvious dissection. 10/08/2017 s/p Total arch replacement with FET under DHCA; open chest 10/08/2017 Chest exploration/Evacuation of hematoma/Open chest with wound vac 10/10/2017 Chest opened with wound VAC placement (Attempt closure, but fail due to desaturation) BP control currently not required - Acute ischemic right MCA stroke (HCC) New L sided weakness 10/11; CTH with large R MCA infarct with associated mass effect. 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 ?Remaining findings are otherwise essentially unchanged since prior CT from 10/15/2017.There is no significant change in intracranial mass effect with partial effacement of the right lateral ventricle with no significant midline shift on the current exam. ?There is stable herniation of the infarcted parenchyma through the craniectomy defect without evidence of impingement. Mental status if is improving, following commands intermittently, hypernatremia improving leukocytosis EEG 10/20: bilateral cortical dysfunction maximum in the right hemisphere with potential epileptogenicity arising from the right frontocentral region. There is also evidence for a severe diffuse encephalopathy. No EEG seizures were recorded - keppra 750 mg bid x 2 weeks - stop all sedation/psychoactive meds other than keprra. - address hypernatremia (for correction to 145 water deficit 5L , will replete over 2 days) - Acquired skull defect S/p right hemicraniectomy Will need helmet when out of the ICU - Leukocytosis Febrile episode 10/18 up to 39. Persistent leukocytosis. Lines 10/17. Abd soft, no pain at RUQ palpaton, however mental status altered. Associated with cholestasis (though bilirubin improving) and mild cytolytic syndrome. RUQ ulrasound sludge PCT 0.5 Continue to follow cultures On vanco and cipro --> zosyn. D/w ID have stopped - Asthma Preop on Breo Ellipta and Flonase A/P - continue inhalers (budesonide, duonebs). No wheezing. Vented. - Acute respiratory insufficiency, postoperative Tachypneic thoug markedly improved Central vs. Mechanical (elevated lt karen, chest open, prolonged disease) Maintain on PSV with PS titrated to comfort. - Acute kidney injury (HCC) Baseline Scr 0.89 to Seems mostly prerenal. Stop diuretic, replete free water. Transfuse if BP low. - Acute blood loss anemia Transfuse to HCT 30 if low BP - Elevated LFTs Mild cytolytic and cholestatic syndrome. Bili improving. Fever/WBC - no abd pain elicited. Ruq US - sludge - Moderate protein-calorie malnutrition (HCC) Corpak. 10/17- tolerating TF SUBJECTIVE INTERVAL HISTORY: No acute events PERTINENT REVIEW OF SYSTEMS: See Assessment and Plan. Remaining ROS reviewed and negative. PHYSICAL EXAM AND PERTINENT DATA: Infusions: None Vital Signs: BP 147/65 Pulse 90 Temp 36.8 ?C (98.2 ?F) (Christian Thermistor) Resp 16 Ht 182.9 cm (6') Wt 92.7 kg (204 lb 5.9 oz) SpO2 100% BMI 27.72 kg/m2 Neuro: Follows commands intermittently Cardiovascular: Rhythm: regular rate and rhythm MAP: 89 mm Hg CVP: mm Hg PAP: mm Hg Cardiac Index: L/min/m2 Pulmonary: Clear to auscultation and Breath sounds equal Ventilator: Intubated: PSV; FiO2: 12; PEEP: 5; Recent Labs 10/22/17 1020 10/22/17 0751 10/22/17 0554 PH 7.33* 7.29* 7.35 PCO2 44 49* 43 PO2 159* 157* 151* HCO3 23 23 23 O2HB 97 98 97 LACT 1.4 1.3 1.2 CXR Findings: stable Gastrointestinal: Abdominal: Soft and Non-tender Recent Labs 10/22/17 0200 10/21/17 0005 10/20/17 0030 TPROT 5.6* 5.4* 5.9* ALB 2.4* 2.4* 2.6* ALKPHOS 211* 194* 172* TBILI 3.8* 4.7* 6.5* AST 275* 191* 136* ALT 240* 178* 134* Heme: Recent Labs 10/22/17 0200 10/21/17 0005 10/20/17 0030 WBC 14.51* 16.36* 17.81* HB 8.4* 8.3* 8.8* HCT 26.6* 26.7* 28.2* PLT 458* 423* 362 Endocrine: Renal: Stable Intake/Output Summary (Last 24 hours) at 10/22/17 0659 Last data filed at 10/22/17 0630 Gross per 24 hour Intake 4151 ml Output 3955 ml Net 196 ml Recent Labs 10/22/17 1007 10/22/17 0555 10/22/17 0200 10/21/17 0005 10/20/17 0030 NA 158* 160* 161* < > 161* < > 159* K -- -- 4.1 -- 4.6 -- 4.6 CHLOR -- -- 129* -- 130* -- 128* CO2 -- -- 21* -- 21* -- 22 BUN -- -- 46* -- 52* -- 47* CREAT -- -- 1.00 -- 0.94 -- 0.90 GLUC -- -- 165* -- 144* -- 165* < > = values in this interval not displayed. Recent Labs 10/22/17 02010/21/17 0005 10/20/17 0030 CA 7.6* 7.9* 8.2* Drug Blood Levels: Recent Labs 10/20/17 1110 VANCORA 11.6 I have discussed the case and the plan and management of the patient's care with the primary surgical team and consulting services, the bedside nurse and the respiratory therapist. SIGNATURE: Simin Montes De Oca MD DATE of SERVICE: 10/22/2017 TIME of SERVICE: 11:56 AM GASA + ALL Collected: 10/22/2017 Status: F Source: [facility] 10:20 AM [facility] RADIANCE USE ONLY REPOSITORY TYPE CODE TESTS RESULT OUT OF REFERENCE UNITS RANGE LAB PH 7.35-7.45 pH Low 7.33 LAB PCO2 34-46 mm Hg pCO2 44 LAB PO2 85-95 mm Hg pO2 High 159 LAB BE mmol/L Base Excess NEG 3 LAB HCO3 22-26 mmol/L Bicarbonate 23 LAB CO2CT 22.0-28.0 mmol/L CO2 Content 24 LAB O2HB 95-98 % Oxyhemoglobin, Art. 97 LAB COHB 0-5.0 % Carboxyhemoglobin,A 1.3 rt LAB MHGB 0.4-1.5 % Methemoglobin 1.1 LAB TEMP C Temperature, Body 37.0 LAB PHTC 7.35-7.45 pH, Temp Low Corrected 7.33 LAB PCO2T 34-46 mm Hg pCO2, Temp Correct 44 LAB PO2T mm Hg pO2, Temp Corrected 159 LAB NAB 135-146 mmol/L Sodium,Whole Bld High 156 LAB KWB 3.5-5.0 mmol/L Potassium, Whole Bld 3.8 LAB HGBB 13.0-17.0 g/dL Low Hemoglobin,Total,AC 9.3 L LAB HCTB 39.0-51.0 % Hematocrit, ACL Low 29 LAB IC 1.08-1.30 mmol/L Calcium, Ion, WB 1.24 LAB GLB 60-105 mg/dL Glucose,Whole Bld High 145 LAB LACT 0.5-2.2 mmol/L Lactate 1.4 Performed By: #### ALLBG #### [facility] [address] [place], [place] [address] SODIUM Collected: 10/22/2017 Status: F Source: [place] 10:07 AM [facility] REPOSITORY TYPE CODE TESTS RESULT OUT OF REFERENCE UNITS RANGE LAB NA 136-144 mmol/L High Sodium 158 Performed By: #### NA #### [facility] [address] [place], [place] [address] CONSULT PROG Observed: 10/22/2017 Status: COMPLETED Source: [place] 9:47 AM [facility] [place] REPOSITORY HNO ID: [id number] Author: Freedom Benton Service: Infectious Disease Author Type: Physician Type: Consult Progress Note Filed: 10/22/2017 1:47 PM Note Text: INFECTIOUS DISEASE CONSULT SERVICE PROGRESS NOTE Date: October 22, 2017 Patient Name: Jose Gustafson examined and assessed brother at bedside Interval Events: MEDICATIONS Medications reviewed. Current antibiotics include: zoysn EXAMINATION: Vital signs: BP 147/65 Pulse 78 Temp 36.8 ?C (98.2 ?F) (Christian Thermistor) Resp 16 Ht 182.9 cm (6') Wt 92.7 kg (204 lb 5.9 oz) SpO2 100% BMI 27.72 kg/m2 supine intubated via tracheostomy not communicative sternal wound stable abd quiet craniotomy surtures clean no rash LABORATORY DATA: Lab reviewed procalcitionin normal MICROBIOLOGY DATA: . ? blood cx 10/21 blood cx 10/17 NGTD no SA carriage in nares 10/14 tissue negative cx including afb BAL 10/15 NGT D blood cx 10/17 NGTD Specimen #: [id number] Submitting Physician: ARPIT MCKENZIE M.D. 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 See comment ? imaging preop CTA intramural type dissection (blood within lumen and blood in right chest and around pericardium) ? CXR today chest tubes median sternotomy aortic stent in place ? CT brain pre craniomtomy reviewd hemmorhage on right ? Petechial hemorrhage within the evolving right MCA territory infarct is more conspicuous on this current exam. EEG leads on ? ? Impression/Recommendations ?? ? 52 y/o man s/p (10/07/17) total Arch replacement. 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 C/b mild hypotension requiring continued pressors and bleeding s/p multiple blood products in OR with delayed chest closure (10/14) and right cerebral hemmorhage requiring urgent craniotomy for decompression (presenting with left hemiparesis) with leukocytosis (17K) . No fevers and no steroids. Possible infection (wounds clean; lines look ok) vs aspiration (CXR no gross infiltratres). Non infectious causes include ROVING HAULER hemorrhage and dissection Has been on vancomcyin and ciprofloxacin since surgery now on zoysn for possible aspiration. ? 1. discontinue zoysn (empiric) with cutlures negative and procalctionin negative Explained to patien's brother in detail and questions answered. spoke to ICU team ? Signature: Freedom Benton MD Pager: [phone] Date of Service: October 22, 2017 NUTRITION Observed: 10/22/2017 Status: COMPLETED Source: [place] 8:17 AM [facility] REPOSITORY HNO ID: [id number] Author: Jeremy Alicea) Len Service: NST-Nutrition Support Team Author Type: Registered Dietitian Type: Nutrition Filed: 10/22/2017 2:02 PM Note Text: NUTRITION THERAPY REASSESSMENT SERVICE DATE: 10/22/2017 SERVICE TIME: 9:55 am RECOMMENDED MALNUTRITION DIAGNOSIS: SEVERE PROTEIN-CALORIE MALNUTRITION In the context of Acute Illness or Injury based on: Subcutaneous Fat Loss: Moderate Loss Muscle Loss Moderate Loss NUTRITION CARE PLAN: Intervention: 1. Impact Peptide @ 60 cc/hr (2160 kcal,135 g pro) Flushes per MD order Monitor and Evaluation: Goal: Meet >75% of estimated needs Discharge Nutrition Recommendations: To be determined Per HPI: 52 yo M pmhx 52 yo M with PMH HTN, Asthma, and hx of kidney stones who is transferred to [facility] for 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 10/08/2017??Total arch replacement with FET under DHCA 10/08/2017 Chest exploration / Evacuation of hematoma / Open chest with wound vac 10/10/2017 Chest opened with wound VAC placement (Attempt closure, but fail due to desaturation) 10/12/2017 Right decompressive hemicraniectomy for R MCA stroke and malignant cerebral edema 10/14/2017 Chest washout and closure Interval History: +trach/vent. Levo d/c'd yesterday. Pt continues tolerating TF at goal. Free water flushes adjusted slightly for Na correction. 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 Pt received 55% of needs yesterday. 10/22: TF at goal. pt received >100% of needs the last 4 days (2137 kcal, 134 g pro) Enteral Access: Small bore NG GI symptoms: +BM today Abdominal Exam: not assessed Is the patient having any pain that is interfering with oral/enteral intake? No ANTHROPOMETRICS Height: 182.9 cm (6') Admission Weight: 85 kg (187 lb 6.3 oz) Current Weight: 92.7 kg (204 lb 5.9 oz) BMI 29.9?based on dry weight Weight hx: per epic, wt ~190s with minor fluctuations the last year. Admitted at 187#, 85 kg. Pt is now 204# (92.7 kg). IBW: 80.9?kg ?? Dosing wt: 85?kg Estimated kilocalorie needs: 4451-3426?kilocalories determined by 20-25?kcal/kg Estimated protein needs: 110-144?grams determined by 1.3-1.7 g/kg?Dosing?weight NUTRITION FOCUSED PHYSICAL EXAM: Subcutaneous Fat Loss Orbital Moderate Triceps Moderate Mid-axillary at the iliac crest Unable to determine at this time Muscle Loss Locations: Temporalis Moderate Pectoralis Moderate Deltoids Moderate Interosseous Unable to determine at this time Latissimus dorsi, trapezius Unable to determine at this time Quadriceps Moderate Gastrocnemius Unable to determine at this time Potential micronutrient deficiency revealed in: Unable to determine at this time Edema: Yes Generalized Ascites: No Assessment of Functional Status: Functional capacity is unrelated to nutrition status Temperature Max in 24 hours: Temp (24hrs), Av.6 ?C (99.7 ?F), Min:36.9 ?C (98.4 ?F), Max:38.8 ?C (101.8 ?F) BP 147/65 Pulse 79 Temp 38.1 ?C (100.6 ?F) (Christian Thermistor) Resp 22 Ht 182.9 cm (6') Wt 92.7 kg (204 lb 5.9 oz) SpO2 100% BMI 27.72 kg/m2 Recent Labs 10/22/17 0555 10/22/17 0200 GLUC -- 165* BUN -- 46* CREAT -- 1.00 NA 160* 161* K -- 4.1 CHLOR -- 129* CO2 -- 21* ALB -- 2.4* HB -- 8.4* HCT -- 26.6* WBC -- 14.51* Potential Signs of Inflammation: leukocytosis, hyperglycemia, hypoalbuminemia, hyperthermia, and imaging studies Pertinent Meds: protonix, senna, heparin ALLERGIES Allergen Reactions - Cats - Grass Pollen Itching Pressure Injury 10/08/17 1121 Lip - Lower (Active) MNT Billing Type: Re-assess/15 min 4 units SIGNATURE: Hilda Arce Employee Relations Representative PATIENT NAME: Jose Gustafson DATE: October 22, 2017 TIME: 8:17 AM PAGER: [phone] NUTRITION THERAPY: TEACHING DIETITIAN NOTE OF PERSONAL INVOLVEMENT OF CARE. I have reviewed the progress note obtained and documented by the recruitment intern. I have discussed the case and management of the patient?s nutrition therapy with the recruitment intern. The following comments revise or confirm relevant curry components of the recruitment intern?s note. Jeremy Harrington, MS, RD, LD, [facility] Pager: [phone] GASA + ALL Collected: 10/22/2017 Status: F Source: [place] FOR 7:51 AM [facility] USE ONLY REPOSITORY TYPE CODE TESTS RESULT OUT OF REFERENCE UNITS RANGE LAB PH 7.35-7.45 pH Low 7.29 LAB PCO2 34-46 mm Hg pCO2 High 49 LAB PO2 85-95 mm Hg pO2 High 157 LAB BE mmol/L Base Excess NEG 3 LAB HCO3 22-26 mmol/L Bicarbonate 23 LAB CO2CT 22.0-28.0 mmol/L CO2 Content 24 LAB O2HB 95-98 % Oxyhemoglobin, Art. 98 LAB COHB 0-5.0 % Carboxyhemoglobin, 1.3 Art LAB MHGB 0.4-1.5 % Methemoglobin 0.4 LAB TEMP C Temperature, Body 37.0 LAB PHTC 7.35-7.45 pH, Temp Low Corrected 7.29 LAB PCO2T 34-46 mm Hg pCO2, Temp High Correct 49 LAB PO2T mm Hg pO2, Temp Corrected 157 LAB NAB 135-146 mmol/L Sodium,Whole High Bld 158 LAB KWB 3.5-5.0 mmol/L Potassium, Whole Bld 4.2 LAB HGBB 13.0-17.0 g/dL Low Hemoglobin,Total,A 8.7 CL LAB HCTB 39.0-51.0 % Hematocrit, Low ACL 27 LAB IC 1.08-1.30 mmol/L Calcium, Ion, WB 1.24 LAB GLB 60-105 mg/dL Glucose,Whole High Bld 150 LAB LACT 0.5-2.2 mmol/L Lactate 1.3 LAB ACBDTE Notify Date, Art 20171022 LAB ACBTME Notify Time, Art Performed By: #### ALLBG #### [facility] [address] [place], [place] [address] SODIUM Collected: 10/22/2017 Status: F Source: [place] 5:55 AM [facility] REPOSITORY TYPE CODE TESTS RESULT OUT OF REFERENCE UNITS RANGE LAB NA 136-144 mmol/L High Sodium 160 Performed By: #### NA #### [facility] [address] [place], [place] [address] GASA + ALL Collected: 10/22/2017 Status: F Source: [place] FOR 5:54 AM [facility] USE ONLY REPOSITORY TYPE CODE TESTS RESULT OUT OF REFERENCE UNITS RANGE LAB PH 7.35-7.45 pH 7.35 LAB PCO2 34-46 mm Hg pCO2 43 LAB PO2 85-95 mm Hg pO2 151 High LAB BE mmol/L Base Excess NEG 2 LAB HCO3 22-26 mmol/L Bicarbonate 23 LAB CO2CT 22.0-28.0 mmol/L CO2 Content 25 LAB O2HB 95-98 % 97 Oxyhemoglobin, Art. LAB COHB 0-5.0 % 1.5 Carboxyhemoglobin ,Art LAB MHGB 0.4-1.5 % 0.8 Methemoglobin LAB TEMP C 37.0 Temperature, Body LAB PHTC 7.35-7.45 pH, Temp 7.35 Corrected LAB PCO2T 34-46 mm Hg pCO2, Temp 43 Correct LAB PO2T mm Hg pO2, Temp 151 Corrected LAB NAB 135-146 mmol/L 158 High Sodium,Whole Bld LAB KWB 3.5-5.0 mmol/L Potassium, 3.9 Whole Bld LAB HGBB 13.0-17.0 g/dL 8.9 Low Hemoglobin,Total, ACL LAB HCTB 39.0-51.0 % Hematocrit, 28 Low ACL LAB IC 1.08-1.30 mmol/L Calcium, 1.22 Ion, WB LAB GLB 60-105 mg/dL 163 High Glucose,Whole Bld LAB LACT 0.5-2.2 mmol/L Lactate 1.2 LAB ABGCOM Blood Gas O2 Comm, Art Administration Result Comment: 40% Performed By: #### ALLBG #### [facility] [address] [place], [place] [address] XR CHEST 1V FRONTAL Observed: 10/22/2017 Status: F Source: [facility] 4:07 AM [facility] REPOSITORY * * *Final Report* * * DATE OF EXAM: Oct 22 2017 4:07AM JIX [id number] - XR CHEST 1V FRONTAL PORT / PROCEDURE REASON: Postoperative state * * * * Physician Interpretation * * * * EXAMINATION: CHEST RADIOGRAPH (PORTABLE SINGLE VIEW AP) Exam Date/Time: 10/22/2017 4:07 AM Indication: Postoperative state MQ: XCP_[id number] Comparison: 1 day prior RESULT: See impression. IMPRESSION: Lines, tubes, and devices: Patient is status post median sternotomy with endovascular stent graft traversing the arch and proximal descending thoracic aorta. Tracheostomy tube, feeding tube, left subclavian central venous catheter and mediastinal drains remain in place. Lungs and pleura: Lungs remain mildly hyperinflated. There is persistent elevation of the left hemidiaphragm. There are small bowel pleural effusions with adjacent atelectasis and pulmonary venous congestion. Biapical pleural thickening is likely postinflammatory in nature. Cardiomediastinal silhouette: The cardiomediastinal silhouette is within normal limits. Other: Surgical clips are noted in the right axilla. Silver Wrapper: PSCB Transcribe Date/Time: Oct 22 2017 8:58A Dictated by : MARISELA OMNACO MD This examination was interpreted and the report reviewed and electronically signed by: MARISELA MONACO MD on Oct 22 2017 9:00AM EST [id number] CBC Collected: 10/22/2017 Status: F Source: [place] [address]:00 AM [facility] REPOSITORY TYPE CODE TESTS RESULT OUT OF REFERENCE UNITS RANGE LAB WBC 3.70-11.00 k/uL WBC High 14.51 LAB RBC 4.20-6.00 m/uL Low RBC 2.83 LAB HGB 13.0-17.0 g/dL Low Hemoglobin 8.4 LAB HCT 39.0-51.0 % Low Hematocrit 26.6 LAB MCV 80.0-100.0 fL MCV 94.0 LAB MCH 26.0-34.0 pG MCH 29.7 LAB MCHC 30.5-36.0 g/dL MCHC 31.6 LAB RDWCV 11.5-15.0 % RDW-CV High 17.9 LAB PLTCT 150-400 k/uL Platelet High Count 458 LAB MPV 9.0-12.7 fL MPV 10.8 LAB ABSNUC <0.01 k/uL Absolute High nRBC 0.01 Performed By: #### CBC, CMP #### [facility] [address] [place] [id number] COMP METABOLIC PANEL Collected: 10/22/2017 Status: F Source: [place] 2:00 [facility] REPOSITORY TYPE CODE TESTS RESULT OUT OF REFERENCE UNITS RANGE LAB TP 6.3-8.0 g/dL Low Protein, Total 5.6 LAB ALB 3.9-4.9 g/dL Low Albumin 2.4 LAB CA 8.5-10.2 mg/dL Low Calcium, Total 7.6 LAB TBIL 0.2-1.3 mg/dL Bilirubin, High Total 3.8 LAB ALKP 36-108 U/L Alkaline High Phosphatase 211 LAB AST 14-40 U/L AST High 275 LAB GLU 74-99 mg/dL Glucose High 165 Result Comment: The [place] Diabetes Association (ADA) provides guidance for cutoff values for fasting glucose and random glucose. The ADA defines fasting as no caloric intake for at least 8 hours. Fas ting plasma glucose results between 100 to 125 mg/dL indicate increased risk for diabetes (prediabetes). Fasting plasma glucose results greater than or equal to 126 mg/dL meet the criteria for diagnosis of diabetes. In the absence of unequivocal hyperglycemia, results should be confirmed by repeat testing. In a patient with classic symptoms of hyperglycemia or hyperglycemic crisis, random plasma glucose results greater than or equal to 200 mg/dL meet the criteria for diagnosis of diabetes. Reference: Standards of Medical Care in Diabetes 2016, [place] [employer] Association. Diabetes Care. 2016.39(Suppl 1). LAB BUN 9-24 mg/dL BUN High 46 LAB CRET 0.73-1.22 mg/dL Creatinine 1.00 LAB NA 136-144 mmol/L Sodium High 161 Result Comment: Called to and read back by: Jourdan NOEL J64 10/22/17 0411 KYLE LAB K 3.7-5.1 mmol/L Potassium 4.1 LAB CL 97-105 mmol/L Chloride High 129 LAB CO2 22-30 mmol/L Low CO2 21 LAB AGAP 9-18 mmol/L Anion Gap 11 LAB ALT 10-54 U/L ALT High 240 LAB GFRAA eGFR- Amer. >60 LAB GFRNAA . eGFR-All Other Races >60 Result Comment: eGFR (Estimated GFR) Units of measure: mL/min/1.73 meters squared eGFR is derived from the reexpressed MDRD Study equation using the following parameters: serum creatinine, age, gender and race. The creatinine assay has been calibrated to be traceable to IDMS. An eGFR <60 mL/min/1.73m2 for >3 months is consistent with chronic kidney disease. Refer to KDOQI guidelines for clinical interpretation. In patients with unstable renal function, e.g. those with acute kidney injury, the eGFR may not accurately reflect actual GFR. Performed By: #### CBC, CMP #### [facility] [address] [place] [id number] GASA + ALL Collected: 10/22/2017 Status: F Source: [place] FOR 1:54 AM [facility] RADIANCE USE ONLY REPOSITORY TYPE CODE TESTS RESULT OUT OF REFERENCE UNITS RANGE LAB PH 7.35-7.45 pH 7.42 LAB PCO2 34-46 mm Hg pCO2 34 LAB PO2 85-95 mm Hg pO2 High 128 LAB BE mmol/L Base Excess NEG 2 LAB HCO3 22-26 mmol/L Bicarbonate 22 LAB CO2CT 22.0-28.0 mmol/L CO2 Content 23 LAB O2HB 95-98 % Oxyhemoglobin, Art. 97 LAB COHB 0-5.0 % Carboxyhemoglobin, 1.1 Art LAB MHGB 0.4-1.5 % Methemoglobin 0.7 LAB TEMP C Temperature, Body 37.0 LAB PHTC 7.35-7.45 pH, Temp Corrected 7.42 LAB PCO2T 34-46 mm Hg pCO2, Temp Correct 34 LAB PO2T mm Hg pO2, Temp Corrected 128 LAB NAB 135-146 mmol/L Sodium,Whole High Bld 165 LAB KWB 3.5-5.0 mmol/L Potassium, Whole Bld 4.1 LAB HGBB 13.0-17.0 g/dL Low Hemoglobin,Total,A 8.6 CL LAB HCTB 39.0-51.0 % Hematocrit, Low ACL 27 LAB IC 1.08-1.30 mmol/L Calcium, Ion, WB 1.25 LAB GLB 60-105 mg/dL Glucose,Whole High Bld 156 LAB LACT 0.5-2.2 mmol/L Lactate 1.8 LAB ABGCOM Blood Gas Comm, Art Urgent value Result Comment: Na FIO2 40% LAB ACBWHO Notified Whom, Art Called to and read back by Result Comment: CANDIDO GARCIA LAB ACBDTE [id number] Notify Date, Art LAB ACBTME [id number] Notify Time, Art Performed By: #### ALLBG #### [facility] [address] [place] [id number] GASA + ALL Collected: 10/21/2017 Status: F Source: [place] FOR 11:43 PM [facility] RADIANCE USE ONLY REPOSITORY TYPE CODE TESTS RESULT OUT OF REFERENCE UNITS RANGE LAB PH 7.35-7.45 pH Low 7.29 LAB PCO2 34-46 mm Hg pCO2 High 48 LAB PO2 85-95 mm Hg pO2 High 149 LAB BE mmol/L Base Excess NEG 3 LAB HCO3 22-26 mmol/L Bicarbonate 23 LAB CO2CT 22.0-28.0 mmol/L CO2 Content 24 LAB O2HB 95-98 % Oxyhemoglobin, Art. 97 LAB COHB 0-5.0 % Carboxyhemoglobin, 1.4 Art LAB MHGB 0.4-1.5 % Methemoglobin 0.5 LAB TEMP C Temperature, Body 37.0 LAB PHTC 7.35-7.45 pH, Temp Low Corrected 7.29 LAB PCO2T 34-46 mm Hg pCO2, Temp High Correct 48 LAB PO2T mm Hg pO2, Temp Corrected 149 LAB NAB 135-146 mmol/L Sodium,Whole High Bld 162 LAB KWB 3.5-5.0 mmol/L Potassium, Whole Bld 4.5 LAB HGBB 13.0-17.0 g/dL Low Hemoglobin,Total,A 8.9 CL LAB HCTB 39.0-51.0 % Hematocrit, Low ACL 28 LAB IC 1.08-1.30 mmol/L Calcium, Ion, WB 1.23 LAB GLB 60-105 mg/dL Glucose,Whole High Bld 149 LAB LACT 0.5-2.2 mmol/L Lactate 1.1 LAB ABGCOM Blood Gas Comm, Art Urgent value Result Comment: NA FIO2 40% LAB ACBWHO Notified Whom, Art Called to and read back by Result Comment: CANDIDO GARCIA LAB ACBDTE [id number] Notify Date, Art LAB ACBTME [id number] Notify Time, Art Performed By: #### ALLBG #### [facility] [address] [place] [address] SODIUM Collected: 10/21/2017 Status: F Source: [place] 10:00 PM [facility] REPOSITORY TYPE CODE TESTS RESULT OUT OF REFERENCE UNITS RANGE LAB NA 136-144 mmol/L High Sodium 164 Result Comment: Called to and read back by: Stefani cox 10/21/17 22:57 Tomi Performed By: #### NA #### [facility] [address] [place] [address] GASA + ALL Collected: 10/21/2017 Status: F Source: [place] FOR 7:59 PM [facility] RADIANCE USE ONLY REPOSITORY TYPE CODE TESTS RESULT OUT OF REFERENCE UNITS RANGE LAB PH 7.35-7.45 pH 7.42 LAB PCO2 34-46 mm Hg pCO2 36 LAB PO2 85-95 mm Hg pO2 High 130 LAB BE mmol/L Base Excess NEG 1 LAB HCO3 22-26 mmol/L Bicarbonate 23 LAB CO2CT 22.0-28.0 mmol/L CO2 Content 24 LAB O2HB 95-98 % Oxyhemoglobin, Art. 96 LAB COHB 0-5.0 % Carboxyhemoglobin, 1.0 Art LAB MHGB 0.4-1.5 % Methemoglobin 1.5 LAB TEMP C Temperature, Body 37.0 LAB PHTC 7.35-7.45 pH, Temp Corrected 7.42 LAB PCO2T 34-46 mm Hg pCO2, Temp Correct 36 LAB PO2T mm Hg pO2, Temp Corrected 130 LAB NAB 135-146 mmol/L Sodium,Whole High Bld 163 LAB KWB 3.5-5.0 mmol/L Potassium, Whole Bld 3.8 LAB HGBB 13.0-17.0 g/dL Low Hemoglobin,Total,A 9.0 CL LAB HCTB 39.0-51.0 % Hematocrit, Low ACL 28 LAB IC 1.08-1.30 mmol/L Calcium, Ion, WB 1.22 LAB GLB 60-105 mg/dL Glucose,Whole High Bld 128 LAB LACT 0.5-2.2 mmol/L Lactate 1.1 LAB ABGCOM Blood Gas Comm, Art Urgent value Result Comment: NA LAB ACBWHO Notified Whom, Art Called to and read back by Result Comment: CANDIDO MCKNIGHT LAB ACBDTE [id number] Notify Date, Art LAB ACBTME Notify Time, Art Performed By: #### ALLBG #### [facility] [address] [place] [id number] US ABD RIGHT UPPER Observed: 10/21/2017 Status: F Source: [facility] 6:10 PM [facility] REPOSITORY * * *Final Report* * * DATE OF EXAM: Oct 21 2017 6:10PM [facility] - [place] ABD RIGHT UPPER QUADRANT / PROCEDURE REASON: Cholestasis * * * * Physician Interpretation * * * * RIGHT UPPER QUADRANT ULTRASOUND HISTORY: Elevated liver enzymes. The patient is intubated. COMPARISON: CT 10/07/2017. TECHNIQUE: Sonography of the right upper quadrant was performed. Images were obtained and stored in a permanent archive. RESULTS: Pancreas: Normal sonographic appearance. Portions obscured: tail Liver: Echotexture: Normal, homogeneous. Echogenicity: Normal Surface contour: Smooth Lesions: None. Biliary: No intrahepatic biliary duct dilation. CBD: 0.7 cm at the hilum. Borderline caliber. Gallbladder: Normal caliber -Contents: Sludge present -Wall thickness: Normal -Other: No pericholecystic fluid. Right Kidney: No hydronephrosis. Ascites: None. IMPRESSION: THE GALLBLADDER SLUDGE. OTHERWISE NORMAL RIGHT UPPER QUADRANT ULTRASOUND. Silver Wrapper: PSCB Transcribe Date/Time: Oct 21 2017 6:39P Dictated by : OSMAN SO MD This examination was interpreted and the report reviewed and electronically signed by: EMMIE HANNON MD on Oct 21 2017 6:56PM EST [id number] GASA + ALL Collected: 10/21/2017 Status: F Source: [place] FOR 6:03 PM [facility] USE ONLY REPOSITORY TYPE CODE TESTS RESULT OUT OF REFERENCE UNITS RANGE LAB PH 7.35-7.45 pH High 7.48 LAB PCO2 34-46 mm Hg pCO2 Low 31 LAB PO2 85-95 mm Hg pO2 High 132 LAB BE mmol/L Base Excess 0 LAB HCO3 22-26 mmol/L Bicarbonate 23 LAB CO2CT 22.0-28.0 mmol/L CO2 Content 24 LAB O2HB 95-98 % Oxyhemoglobin, Art. 97 LAB COHB 0-5.0 % Carboxyhemoglobin, 1.7 Art LAB MHGB 0.4-1.5 % Methemoglobin 0.6 LAB TEMP C Temperature, Body 37.0 LAB PHTC 7.35-7.45 pH, Temp High Corrected 7.48 LAB PCO2T 34-46 mm Hg pCO2, Temp Low Correct 31 LAB PO2T mm Hg pO2, Temp Corrected 132 LAB NAB 135-146 mmol/L Sodium,Whole High Bld 162 LAB KWB 3.5-5.0 mmol/L Potassium, Whole Bld 3.9 LAB HGBB 13.0-17.0 g/dL Low Hemoglobin,Total,A 8.5 CL LAB HCTB 39.0-51.0 % Hematocrit, Low ACL 26 LAB IC 1.08-1.30 mmol/L Calcium, Ion, WB 1.20 LAB GLB 60-105 mg/dL Glucose,Whole High Bld 122 LAB LACT 0.5-2.2 mmol/L Lactate 1.5 LAB ABGCOM Blood Gas Comm, Art Urgent value Result Comment: NA LAB ACBWHO Notified Whom, Art Called to and read back by Result Comment: MAYE MCKNIGHT LAB ACBDTE [id number] Notify Date, Art LAB ACBTME [id number] Notify Time, Art Performed By: #### ALLBG #### [facility] [address] [place], [place] [address] SODIUM Collected: 10/21/2017 Status: F Source: [place] 6:00 PM [facility] REPOSITORY TYPE CODE TESTS RESULT OUT OF REFERENCE UNITS RANGE LAB NA 136-144 mmol/L High Sodium 166 Result Comment: Called to and read back by: oDnato Tanner [facility] J64 10/21/17 Silverio Olivas Performed By: #### NA #### [facility] [address] [place], [place] [address] GASA + ALL Collected: 10/21/2017 Status: F Source: [place] FOR 2:30 PM [facility] RADIANCE USE ONLY REPOSITORY TYPE CODE TESTS RESULT OUT OF REFERENCE UNITS RANGE LAB PH 7.35-7.45 pH Low 7.23 LAB PCO2 34-46 mm Hg pCO2 High 59 LAB PO2 85-95 mm Hg pO2 High 126 LAB BE mmol/L Base Excess NEG 4 LAB HCO3 22-26 mmol/L Bicarbonate 24 LAB CO2CT 22.0-28.0 mmol/L CO2 Content 26 LAB O2HB 95-98 % Oxyhemoglobin, Art. 96 LAB COHB 0-5.0 % Carboxyhemoglobin, 0.9 Art LAB MHGB 0.4-1.5 % Methemoglobin 0.7 LAB TEMP C Temperature, Body 37.0 LAB PHTC 7.35-7.45 pH, Temp Low Corrected 7.23 LAB PCO2T 34-46 mm Hg pCO2, Temp High Correct 59 LAB PO2T mm Hg pO2, Temp Corrected 126 LAB NAB 135-146 mmol/L Sodium,Whole High Bld 164 LAB KWB 3.5-5.0 mmol/L Potassium, Whole Bld 4.4 LAB HGBB 13.0-17.0 g/dL Low Hemoglobin,Total,A 9.6 CL LAB HCTB 39.0-51.0 % Hematocrit, Low ACL 30 LAB IC 1.08-1.30 mmol/L Calcium, Ion, WB 1.27 LAB GLB 60-105 mg/dL Glucose,Whole High Bld 121 LAB LACT 0.5-2.2 mmol/L Lactate 1.0 LAB ABGCOM Blood Gas Comm, Art Urgent value Result Comment: NA LAB ACBWHO Notified Whom, Art Called to and read back by Result Comment: Penelope Cox M. BONNIE LAB ACBDTE [id number] Notify Date, Art LAB ACBTME [id number] Notify Time, Art Performed By: #### ALLBG #### [facility] [address] [place], [place] [address] CASE MANAGEM Observed: 10/21/2017 Status: COMPLETED Source: [place] 2:00 PM [facility] REPOSITORY HNO ID: [id number] Author: Ayaka Keita (Sw) Service: Care Management Author Type: Manager Package Type: Care Mgt Progress Note Filed: 10/21/2017 2:03 PM Note Text: CARE MANAGEMENT PROGRESS NOTE SERVICE DATE: 10/21/2017 SERVICE TIME: 2:01 PM LOS: 14 days Needs Prior to Discharge: To Be Determined Dariel spoke with pt's spouse, Dana, and provided companionship and emotional support. Dana appears to have a positive attitude and stated that she is taking this day by day. Dariel will continue to follow and be available for emotional support. SIGNATURE: SCARLETT Qiu PATIENT NAME: Jose Gustafson DATE: October 21, 2017 TIME: 2:01 PM PAGER/CONTACT #: [phone] SODIUM Collected: 10/21/2017 Status: F Source: [place] 2:00 PM [facility] REPOSITORY TYPE CODE TESTS RESULT OUT OF REFERENCE UNITS RANGE LAB NA 136-144 mmol/L High Sodium 165 Result Comment: Called to and read back by: Roderick Cox 10/21/17 15:20 T Conn Performed By: #### NA #### [facility] [address] [place], [place] [address] CASE MANAGEM Observed: 10/21/2017 Status: COMPLETED Source: [place] 1:06 PM [facility] REPOSITORY HNO ID: [id number] Author: Anna Souza Service: Care Management Author Type: Registered Nurse Type: Care Mgt Progress Note Filed: 10/21/2017 1:14 PM Note Text: CARE MANAGEMENT PROGRESS NOTE SERVICE DATE: 10/21/2017 SERVICE TIME: 1:07PM LOS: 14 days Needs Prior to Discharge: To Be Determined Per EMR; Procedure/Surgeries: 10/08/2017 Total arch replacement with FET under DHCA 10/08/2017 Chest exploration/Evacuation of hematoma / Open chest with wound vac 10/10/2017 Chest opened with wound VAC placement (Attempt closure, but fail due to desaturation) 10/12/2017 Right decompressive hemicraniectomy for R MCA stroke and malignant cerebral edema ? Off sedation. Unresponsive CT stable/no seizure activity Followed by Neurology. On BEM. Followed by ID: continue with with zoysn (empiric) Trach to vent. FIO2 40%. Case Management will continue to follow patient for discharge needs/planning. SIGNATURE: Anna Souza RN PATIENT NAME: Jose Gustafson DATE: October 21, 2017 TIME: 1:07 PM PAGER/CONTACT #: [phone] SODIUM Collected: 10/21/2017 Status: F Source: [place] 11:07 AM [facility] REPOSITORY TYPE CODE TESTS RESULT OUT OF REFERENCE UNITS RANGE LAB NA 136-144 mmol/L High Sodium 163 Result Comment: Called to and read back by: Beata [phone] 10/21/17 1313 BBlum Performed By: #### NA #### [facility] [address] [place] [address] PROGRESS Observed: 10/21/2017 Status: COMPLETED Source: [place] 11:03 AM [facility] REPOSITORY HNO ID: [id number] Author: Simin Montes De Oca Service: (none) Author Type: Anesthesiologist Type: Progress Notes Filed: 10/21/2017 11:08 AM Note Text: [facility] Progress Note Name: Jose Gustafson COORDINATION OF CARE NOTE: Indication for Surgery: Spontaneous Rupture of Aorta LVEF: Normal RVF: Normal Important/Relevant PMH/PSH: HTN, asthma, hx kidney stones Preoperative Hospital Course (narrative): 52 yo M with PMH HTN, Asthma, and hx of kidney stones who is transferred to [facility] for 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 Hypotension, cardiac insufficiency on norepinephrine, vasopressin, and epoprostenol. Returned to OR 10/08 for exploration and large amount of clots were removed but no active bleeding. Chest closure attempted 10/10 but failed 2/2 desaturation. Early AM 10/11 2 CLOT for left sided weakness. CTH with large large right MCA infarct with associated mass effect. Repeat imaging with evolution of R MCA infarct with increased edema now s/p right decompressive hemicraniectomy per Neurosurgery on 10/12. Issues to communicate at signout: Off sedation. Unresponsive CT stable/no seizure activity Attempt partial correction of hypernatremia. 163-> 150 (water deficit for these correcti 3.8 - attempt replace over 2 days with sodium monitoring from ABG) OTHER PROBLEMS I MANAGED DURING THIS ENCOUNTER: Problem Dissection of Thoracic Aorta (Hcc) Patient with chest pain at OSH. CT chest was concerning for aortic dissection starting at the mid arch and descending in the thoracic aorta. Taken to the OR 10/08, brief OR findings greater curvature of the aortic arch was torn longitudinally from innominate artery to distal arch. There was no obvious dissection. 10/08/2017 s/p Total arch replacement with FET under DHCA; open chest 10/08/2017 Chest exploration/Evacuation of hematoma/Open chest with wound vac 10/10/2017 Chest opened with wound VAC placement (Attempt closure, but fail due to desaturation) BP control currently not required Acute Ischemic Right Mca Stroke (Hcc) New L sided weakness 10/11; CTH with large R MCA infarct with associated mass effect. 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 ?Remaining findings are otherwise essentially unchanged since prior CT from 10/15/2017.There is no significant change in intracranial mass effect with partial effacement of the right lateral ventricle with no significant midline shift on the current exam. ?There is stable herniation of the infarcted parenchyma through the craniectomy defect without evidence of impingement. Mental status if poor, unresponsive for me (nursing documents minimal responsiveness), however very hypernatremic and with leukocytosis EEG 10/20: bilateral cortical dysfunction maximum in the right hemisphere with potential epileptogenicity arising from the right frontocentral region. There is also evidence for a severe diffuse encephalopathy. No EEG seizures were recorded - keppra 750 mg bid x 2 weeks - stop all sedation/psychoactive meds other than keprra. - address hypernatremia (partial correction to about 150 - water deficit 3.8L for that value, will replete over 2 days) - off pressor. Acquired Skull Defect S/p right hemicraniectomy Will need helmet when out of the ICU Leukocytosis Febrile episode 10/18 up to 39. Persistent leukocytosis. Lines 10/17. Abd soft, no pain at RUQ palpaton, however mental status altered. Associated with cholestasis and mild cytolytic syndrome. On vanco and cipro --> zosyn ID following RUQ ulrasound. Change Christian. Acute Respiratory Insufficiency, Postoperative Tachypneic, ? Central vs. Mechanical (elevated lt karen, chest open, prolonged disease) Continue on SPCV. Not amparo for weaning. Acute Kidney Injury (Hcc) Baseline Scr 0.89 to Seems mostly prerenal. Stop diuretic, replete free water. Transfuse if BP low. Acute Blood Loss Anemia Transfuse to HCT 30 if low BP Elevated Lfts Mild cytolytic and cholestatic syndrome. Bili improving. Fever/WBC - no abd pain elicited. Ruq US Moderate Protein-Calorie Malnutrition (Hcc) Corpak. 10/17- tolerating TF SUBJECTIVE INTERVAL HISTORY: as above PERTINENT REVIEW OF SYSTEMS: See Assessment and Plan. Remaining ROS reviewed and negative. PHYSICAL EXAM AND PERTINENT DATA: Infusions: Fentanyl Vital Signs: BP 147/65 Pulse 102 Temp 37 ?C (98.6 ?F) (Oral) Resp 29 Ht 182.9 cm (6') Wt 94.1 kg (207 lb 7.3 oz) SpO2 97% BMI 28.14 kg/m2 Neuro: Unresponsive Cardiovascular: Rhythm: regular rate and rhythm MAP: 65 mm Hg CVP: 0 mm Hg PAP: mm Hg Cardiac Index: L/min/m2 Pulmonary: Clear to auscultation and Breath sounds equal Ventilator: Itrached: SPCV; FiO2: 40; PEEP: 8-5; Recent Labs 10/21/17 0911 10/21/17 0348 10/21/17 0005 PH 7.35 7.40 7.35 PCO2 43 39 43 PO2 136* 107* 135* HCO3 23 23 23 O2HB 98 96 97 LACT 1.3 1.2 1.2 CXR Findings: chf Gastrointestinal: Abdominal: Soft and Non-tender Recent Labs 10/21/17 0005 10/20/17 0030 10/19/17 0005 TPROT 5.4* 5.9* 5.5* ALB 2.4* 2.6* 2.6* ALKPHOS 194* 172* 144* TBILI 4.7* 6.5* 7.5* AST 191* 136* 135* ALT 178* 134* 108* Heme: Recent Labs 10/21/17 0005 10/20/17 0030 10/19/17 0005 WBC 16.36* 17.81* 19.90* HB 8.3* 8.8* 9.0* HCT 26.7* 28.2* 29.3* PLT 423* 362 330 Endocrine: Renal: Stable Intake/Output Summary (Last 24 hours) at 10/21/17 0659 Last data filed at 10/21/17 0630 Gross per 24 hour Intake 2918 ml Output 4275 ml Net -1357 ml Recent Labs 10/21/17 0640 10/21/17 0005 10/20/17 1746 10/20/17 0030 10/19/17 0005 NA 163* 161* 159* < > 159* < > 160* K -- 4.6 -- -- 4.6 -- 4.8 CHLOR -- 130* -- -- 128* -- 128* CO2 -- 21* -- -- 22 -- 22 BUN -- 52* -- -- 47* -- 48* CREAT -- 0.94 -- -- 0.90 -- 1.02 GLUC -- 144* -- -- 165* -- 121* < > = values in this interval not displayed. Recent Labs 10/21/17 0005 10/20/17 0030 10/19/17 0005 CA 7.9* 8.2* 8.1* Drug Blood Levels: Recent Labs 10/20/17 1110 VANCORA 11.6 Critical care time was provided for 30 minutes by the attending physician, exclusive of separately billable procedures, teaching of residents and treating other patients. This was necessary to treat or prevent further deterioration of the following condition(s) Central nervous system failure or compromise/cassius/hypernatremia which the patient had and/or had a high probability of suddenly developing. I have discussed the case and the plan and management of the patient's care with the primary surgical team and consulting services, the bedside nurse and the respiratory therapist. SIGNATURE: Simin Montes De Oca MD DATE of SERVICE: 10/21/2017 TIME of SERVICE: 11:03 AM Observed: 10/21/2017 Status: F Source: [place] BLOOD CULTURE 11:00 AM [facility] REPOSITORY Additional Testing - Methicillin resistant Staphylococcus epidermidis (MRSE) detected by microarray. Single positive cultures of S. epidermidis usually represent contamination. Call lab within 72 h if f urther work up is required. Negative for Streptococcus spp. and Enterococcus spp. by microarray. Culture Result - Staphylococcus epidermidis Probable contaminant. Susceptibility testing will not be performed. Call lab within 72 hours to initiate workup if clinically indicated. (NOTE) Positive res ult called to and read back by:Wendy Felix [facility] J64 10/22/2017 Esperanza Nguyen Performed By: #### BLCUL #### [facility] [address] [place], [place] [address] Observed: 10/21/2017 Status: F Source: [place] BLOOD CULTURE 11:00 [facility] REPOSITORY Culture Result - No growth 5 days Performed By: #### BLCUL #### [facility] [address] [place], [place] [address] PROCALCITONIN Collected: 10/21/2017 Status: F Source: [place] 10:40 AM [facility] REPOSITORY TYPE CODE TESTS RESULT OUT OF REFERENCE UNITS RANGE LAB PROCLT <0.09 ng/mL Procalcitonin High 0.58 Result Comment: For a guided interpretation of test results, please visit the Change in Procalcitonin Calculator, [email or web address]. Performed By: #### PROCAL #### [facility] [address] [place], [place] [address] Observed: 10/21/2017 Status: F Source: [place] URINE CULTURE 10:40 AM [facility] REPOSITORY Sp. Request/Comment: - Specimen received in preservative Culture Result - No growth (<1,000 CFU/ml) Performed By: #### URCUL #### [facility] [address] [place], [place] [address] GASA + ALL Collected: 10/21/2017 Status: F Source: [place] FOR 9:11 AM [facility] RADIANCE USE ONLY REPOSITORY TYPE CODE TESTS RESULT OUT OF REFERENCE UNITS RANGE LAB PH 7.35-7.45 pH 7.35 LAB PCO2 34-46 mm Hg pCO2 43 LAB PO2 85-95 mm Hg pO2 High 136 LAB BE mmol/L Base Excess NEG 2 LAB HCO3 22-26 mmol/L Bicarbonate 23 LAB CO2CT 22.0-28.0 mmol/L CO2 Content 24 LAB O2HB 95-98 % Oxyhemoglobin, Art. 98 LAB COHB 0-5.0 % Carboxyhemoglobin, 1.5 Art LAB MHGB 0.4-1.5 % Methemoglobin Low 0.0 LAB TEMP C Temperature, Body 37.0 LAB PHTC 7.35-7.45 pH, Temp Corrected 7.35 LAB PCO2T 34-46 mm Hg pCO2, Temp Correct 43 LAB PO2T mm Hg pO2, Temp Corrected 136 LAB NAB 135-146 mmol/L Sodium,Whole High Bld 160 LAB KWB 3.5-5.0 mmol/L Potassium, Whole Bld 4.0 LAB HGBB 13.0-17.0 g/dL Low Hemoglobin,Total,A 8.0 CL LAB HCTB 39.0-51.0 % Hematocrit, Low ACL 25 LAB IC 1.08-1.30 mmol/L Calcium, Ion, WB 1.22 LAB GLB 60-105 mg/dL Glucose,Whole High Bld 136 LAB LACT 0.5-2.2 mmol/L Lactate 1.3 LAB ACBDTE Notify Date, Art [id number] LAB ACBTME Notify Time, Art Performed By: #### ALLBG #### [facility] [address] [place], [place] [address] CONSULT PROG Observed: 10/21/2017 Status: COMPLETED Source: [place] 8:47 AM [facility] REPOSITORY HNO ID: [id number] Author: Freedom Benton Service: Infectious Disease Author Type: Physician Type: Consult Progress Note Filed: 10/21/2017 12:15 PM Note Text: INFECTIOUS DISEASE CONSULT SERVICE PROGRESS NOTE Date: October 21, 2017 Patient Name: Jose Gustafson examined and assessed Interval Events: MEDICATIONS Medications reviewed. Current antibiotics include: zoysn EXAMINATION: Vital signs: BP 147/65 Pulse 102 Temp 37 ?C (98.6 ?F) (Oral) Resp 29 Ht 182.9 cm (6') Wt 94.1 kg (207 lb 7.3 oz) SpO2 98% BMI 28.14 kg/m2 supine intubated via tracheostomy EEG leads on not communicative eyes open sternal wound stable abd quiet craniotomy surtures clean no rash LABORATORY DATA: Lab reviewed MICROBIOLOGY DATA: . ? blood cx 10/21 blood cx 10/17 NGTD no SA carriage in nares 10/14 tissue negative cx including afb BAL 10/15 NGT D blood cx 10/17 NGTD Specimen #: [id number] Submitting Physician: ARPIT MCKENZIE M.D. 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 See comment ? imaging preop CTA intramural type dissection (blood within lumen and blood in right chest and around pericardium) ? CXR today chest tubes median sternotomy aortic stent in place ? CT brain pre craniomtomy reviewd hemmorhage on right ? Petechial hemorrhage within the evolving right MCA territory infarct is more conspicuous on this current exam. EEG leads on ? ? Impression/Recommendations ?? ? 52 y/o man s/p (10/07/17) total Arch replacement. 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 C/b mild hypotension requiring continued pressors and bleeding s/p multiple blood products in OR with delayed chest closure (10/14) and right cerebral hemmorhage requiring urgent craniotomy for decompression (presenting with left hemiparesis) with leukocytosis (17K) . No fevers and no steroids. Possible infection (wounds clean; lines look ok) vs aspiration (CXR no gross infiltratres). Non infectious causes include ROVING HAULER hemorrhage and dissection Has been on vancomcyin and ciprofloxacin since surgery now on zoysn for possible aspiration. ? 1. continue with with zoysn (empiric) 2 will follow up on blood cx spoke to ICU team ? Signature: Freedom Benton MD Pager: [phone] Date of Service: October 21, 2017 CONSULT PROG Observed: 10/21/2017 Status: COMPLETED Source: [place] 7:25 AM [facility] REPOSITORY HNO ID: [id number] Author: Luz Moreno Service: Neurology Author Type: Resident Type: Consult Progress Note Filed: 10/21/2017 11:25 AM Note Text: Attestation signed by Deepika Garza) Ever at 10/21/2017 7:30 PM [facility] STAFF PHYSICIAN NOTE OF PERSONAL INVOLVEMENT IN CARE I have reviewed the progress note obtained and documented by the resident and I personally participated in the curry components. I have discussed the case and management of the patient's care. The following comments revise or confirm relevant curry components of the note. IMPRESSION: large evolving right MCA territory ischemic stroke status post hemicraniectomy Exam: eye opening sometimes Gaze preference to left does not follow commands Flaccid tone in bilateral upper extremities No involuntary movements CT head 10/20/2017: - has been off sedation for 48 hours-- still not following commands - Hyper Na : 163-- Ammonia 31 - will continue supportive care and monitor for improvement as na leves improve and also with hepatic clearance of prior sedating meds - continue EEG monitoring . Discussed neuro recs with critical care -Dr Montes De Oca Please call with any questions Deepika Curtis, Vascular Neurology Staff, Pager : [phone] October 21, 2017 12:32 PM CONSULT PROGRESS NOTE NEURO STROKE SERVICE DATE: 10/21/2017 SERVICE TIME: 7:25 AM Subjective INTERVAL HISTORY: No acute events overnight. MEDICATIONS Current hospital medications: piperacillin-tazobactam 3.375 g in dextrose (iso-osmotic) 50 mL (ZOSYN) 3.375 g INTRAVENOUS q 6 H aspirin 81 mg chewable tab(s) 81 mg ORAL DAILY heparin 5,000 Units injection 5,000 Units SUBCUTANEOUS q 12 H levETIRAcetam 750 mg in NaCl 0.9% 100 mL (KEPPRA) 750 mg INTRAVENOUS BID furosemide 500 mg in empty bottle 50 mL IV infusion (LASIX) 5 mg/hr INTRAVENOUS CONTINUOUS PHENYLephrine 80 mg in D5W 250 mL (NEOSYNEPHRINE) 25-200 mcg/min INTRAVENOUS CONTINUOUS Chlorhexidine Gluconate 0.12 % 15 mL (PERIDEX) 15 mL ORAL q [address] 20 mg tab(s) (PROTONIX) 20 mg ORAL DAILY (6 AM) pantoprazole 20 mg CUP (PROTONIX) 20 mg ORAL/FEEDING TUBE DAILY (6 AM) senna-docusate 8.6-50 mg 1 tablet (SENNA-S) 1 tablet ORAL BID bisacodyl 10 mg suppository (DULCOLAX) 10 mg RECTAL DAILY PRN ondansetron (PF) 4 mg injection (ZOFRAN) 4 mg INTRAVENOUS q 6 H PRN potassium chloride iv piggyback 10 mEq/100mL 10 mEq INTRAVENOUS PRN potassium chloride iv piggyback 20 mEq/50 mL 20 mEq INTRAVENOUS PRN potassium chloride 40-120 mEq oral powder (KLOR-CON) 40-120 mEq ORAL/FEEDING TUBE PRN 0.9% NaCl 3-5 mL 3-5 mL INTRAVENOUS q 12 H 0.9% NaCl 10 mL 10 mL INTRAVENOUS q 12 H insulin regular human iv bolus 2-10 Units 2-10 Units INTRAVENOUS PRN insulin regular 250 units in NaCl 0.9% 250 mL iv infusion - HVI CVICU NOMOGRAM 0.5-40 Units/hr INTRAVENOUS CONTINUOUS dextrose 50% in water 25 mL syringe 12.5 g INTRAVENOUS PRN dextrose 5% in NaCl 0.2% iv infusion 5 mL/hr INTRAVENOUS CONTINUOUS insulin glargine 0-40 Units pen (long acting) (LANTUS SOLOSTAR, BASAGLAR) 0-40 Units SUBCUTANEOUS As Directed nitroglycerin 50 mg in D5W 250 mL 5-200 mcg/min INTRAVENOUS CONTINUOUS nitroglycerin injection 100 mcg injection syringe 100 mcg INTRAVENOUS PRN PHENYLephrine 0.1 mg injection 100 mcg INTRAVENOUS PRN fentaNYL [employer]EN[employer]ENT 20 mcg/mL in NaCl 0.9% 100 mL INTRAVENOUS CONTINUOUS naloxone 0.04 mg injection (NARCAN) 0.04 mg INTRAVENOUS PRN lidocaine 5 % 1 Patch (LIDODERM) 1 Patch TRANSDERMAL DAILY lidocaine patch - REMOVE OTHER AT BEDTIME lidocaine - VERIFY PATCH OTHER q 8 H fentaNYL 50 mcg/mL 25-75 mcg injection (SUBLIMAZE) 25-75 mcg INTRAVENOUS q 1 H PRN acetaminophen 650 mg tab(s) (TYLENOL) 650 mg ORAL/FEEDING TUBE q 4 H PRN oxyCODONE IR 5-10 mg tab(s) (ROXICODONE) 5-10 mg ORAL/FEEDING TUBE q 6 H PRN propofol infusion (DIPRIVAN) 10-50 mcg/kg/min (Order-Specific) INTRAVENOUS CONTINUOUS propofol iv bolus 10-50 mg (DIPRIVAN) 10-50 mg INTRAVENOUS q 1 H PRN vasopressin 20 units in D5W 100 mL (VASOSTRICT) 0.01-0.1 Units/min INTRAVENOUS CONTINUOUS NORepinephrine 4 mg in D5W 250 mL (LEVOPHED) 0.6-20 mcg/min INTRAVENOUS CONTINUOUS fentaNYL iv infusion 20 mcg/mL in NaCl 0.9% 100 mL 25-250 mcg/hr INTRAVENOUS CONTINUOUS EPINEPHrine iv infusion 4 mg in D5W 250 mL 0.5-4 mcg/min INTRAVENOUS CONTINUOUS albuterol 2.5 mg /3 mL (0.083 %) 2.5 mg (PROVENTIL) 2.5 mg INHALATION QID budesonide 1 mg/2 mL 1 mg nebulizer suspension (PULMICORT) 1 mg INHALATION BID Objective PHYSICAL EXAM Vital Signs: BP 147/65 Pulse 97 Temp 37 ?C (98.6 ?F) (Oral) Resp (!) 32 Ht 182.9 cm (6') Wt 94.1 kg (207 lb 7.3 oz) SpO2 99% BMI 28.14 kg/m2 GENERAL: unable to arouse, on fentanyl HEENT: surgical site clean/dry RESPIRATORY: Ventilated on trach CARDIOVASCULAR: RRR, GI: Soft abdomen, nontender, nondistended EXTREMITIES: no cyanosis, no edema SKIN: Skin color, texture, turgor normal. No rashes or lesions. NEUROLOGICAL: LOC: 3 - reflex responses or unarousable 3 LOC Questions: 2 - none correct 2 LOC Commands: 2 - neither correct 2 LOC Normal Gaze: 1 - partial gaze palsy, abnormal gaze in 1 or both eyes 1 Visual Helms: 3 - bilateral hemianopia (blind including cortical blindness) 3 Facial Palsy: 0 - normal 0 Motor Left Arm: 4 - no movement at all 4 Motor Right Arm: 4 - no movement at all 4 Motor Left Le - no movement at all 4 Motor Right Le - no movement at all 4 Limb Ataxia: 0 - no ataxia (or aphasic, hemiplegic) 0 Sensory: 2 - total loss, patient unaware of touch. coma, bilateral loss 2 Language: 3 - mute, global aphasia, coma 3 Dysarthria: 2 - severe, unintelligible or mute 2 Extinction/Neglect: 0 - normal, none detected (or visual loss alone) 0 Total Daily NIHSS: 34 (10/21/17 0752 : Luz (Res) Josh) 34 MENTAL STATUS: Unable to arouse CRANIAL NERVES: PERRLA and Face symmetric MOTOR: flaccid, no spontaneous movements, no movements to nox stim all extremities REFLEXES: Tejada's left, brisk reflexes throughout, babinski absent SENSATION: no movement to nox stim DATA: Diagnostic tests reviewed for today's visit: Lipids, HbA1c, CMP, CBC, Coags Recent Labs 10/21/17 0640 10/21/17 0348 10/21/17 0005 10/20/17200510/20/17 1746 10/20/17 0030 10/19/17 0005 NA 163* -- 161* -- -- 159* < > 159* < > 160* K -- -- 4.6 -- -- -- -- 4.6 -- 4.8 CHLOR -- -- 130* -- -- -- -- 128* -- 128* CO2 -- -- 21* -- -- -- -- 22 -- 22 BUN -- -- 52* -- -- -- -- 47* -- 48* CREAT -- -- 0.94 -- -- -- -- 0.90 -- 1.02 GLUC -- -- 144* -- -- -- -- 165* -- 121* IC -- 1.26 1.24 1.26 < > -- < > -- < > -- CA -- -- 7.9* -- -- -- -- 8.2* -- 8.1* WBC -- -- 16.36* -- -- -- -- 17.81* -- 19.90* HB -- -- 8.3* -- -- -- -- 8.8* -- 9.0* HCT -- -- 26.7* -- -- -- -- 28.2* -- 29.3* PLT -- -- 423* -- -- -- -- 362 -- 330 < > = values in this interval not displayed. Cardiac Enzymes usCRP Most recent labs and imaging results. MEDICAL EVENTS: No medical events have been recorded. PROBLEM LIST: Principal Problem: Dissection of thoracic aorta (HCC) POA: Unknown Active Problems: Asthma POA: Yes Atelectasis POA: Unknown Hypoxia POA: Unknown Acute respiratory insufficiency, postoperative POA: Unknown Postoperative hypotension POA: No Cardiac insufficiency (HCC) POA: Yes Pain, postoperative, acute POA: No Acute ischemic right MCA stroke (HCC) POA: No Cerebral edema (HCC) POA: No Acute kidney injury (HCC) POA: Unknown Moderate protein-calorie malnutrition (HCC) POA: Unknown Acute blood loss anemia POA: Unknown High bilirubin POA: Unknown Leukocytosis POA: Unknown Acquired skull defect POA: No Resolved Problems: Aortic dissection (HCC) POA: Yes Lactic acid acidosis POA: Unknown Coagulopathy (HCC) POA: Unknown Impression/Recommendations Jose Gustafson is a 52 year old, male, patient. S/p large R.MCA infarct s/p aortic arch repair, underwent hemicraniectomy 10/12, imaging stable with reduced mass effect and no hemorrhagic conversion. Exam shows pt unable to follow commands NIHSS 34, repeat CTH 10/19 showed petechial hemorrhage w/in evolving R.MCA territory infarct. BEM showing PLEDS right FT. Stroke Mechanism Stroke Mechanism - LIP ENTRY ONLY Ischemic Stroke or TIA: Ischemic Stroke TOAST Mechanism (CCF-MODIFIED): Stroke of Other Determined Etiology Stroke of Other Determined Etiology: Dissection Total Daily NIHSS: 34 PLAN --continue LEV 750mg BID --Bedside EEG continue monitoring --slowly correcting hypernatremia Imaging Ordered Today: None SIGNATURE: Luz Moreno MD PATIENT NAME: Jose Gustafson DATE: October 21, 2017 TIME: 7:25 AM PAGER/CONTACT #: [phone] SODIUM Collected: 10/21/2017 Status: F Source: [place] 6:40 AM [facility] REPOSITORY TYPE CODE TESTS RESULT OUT OF REFERENCE UNITS RANGE LAB NA 136-144 mmol/L High Sodium 163 Result Comment: Called to and read back by: Molly Martinez64 10/21/17 0817 Verenice Performed By: #### NA #### [facility] [address] [place], [place] [address] GASA + ALL Collected: 10/21/2017 Status: F Source: [facility] 3:48 AM [facility] RADIANCE USE ONLY REPOSITORY TYPE CODE TESTS RESULT OUT OF REFERENCE UNITS RANGE LAB PH 7.35-7.45 pH 7.40 LAB PCO2 34-46 mm Hg pCO2 39 LAB PO2 85-95 mm Hg pO2 High 107 LAB BE mmol/L Base Excess NEG 1 LAB HCO3 22-26 mmol/L Bicarbonate 23 LAB CO2CT 22.0-28.0 mmol/L CO2 Content 24 LAB O2HB 95-98 % Oxyhemoglobin, Art. 96 LAB COHB 0-5.0 % Carboxyhemoglobin, 1.2 Art LAB MHGB 0.4-1.5 % Methemoglobin 0.8 LAB TEMP C Temperature, Body 37.0 LAB PHTC 7.35-7.45 pH, Temp Corrected 7.40 LAB PCO2T 34-46 mm Hg pCO2, Temp Correct 39 LAB PO2T mm Hg pO2, Temp Corrected 107 LAB NAB 135-146 mmol/L Sodium,Whole High Bld 161 LAB KWB 3.5-5.0 mmol/L Potassium, Whole Bld 4.4 LAB HGBB 13.0-17.0 g/dL Low Hemoglobin,Total,A 8.6 CL LAB HCTB 39.0-51.0 % Hematocrit, Low ACL 27 LAB IC 1.08-1.30 mmol/L Calcium, Ion, WB 1.26 LAB GLB 60-105 mg/dL Glucose,Whole High Bld 131 LAB LACT 0.5-2.2 mmol/L Lactate 1.2 LAB ABGCOM Blood Gas Comm, Art Urgent value Result Comment: NA LAB ACBWHO Notified Whom, Art Called to and read back by Result Comment: M JYOTHI J64 J KNOWLES LAB ACBDTE [id number] Notify Date, Art LAB ACBTME [id number] Notify Time, Art Performed By: #### ALLBG #### [facility] [address] [place], [place] [address] XR CHEST 1V FRONTAL Observed: 10/21/2017 Status: F Source: [facility] 3:17 AM [facility] REPOSITORY * * *Final Report* * * DATE OF EXAM: Oct 21 2017 3:17AM JIX [id number] - XR CHEST 1V FRONTAL PORT / PROCEDURE REASON: Postoperative state * * * * Physician Interpretation * * * * EXAMINATION: CHEST RADIOGRAPH (PORTABLE SINGLE VIEW AP) Exam Date/Time: 10/21/2017 3:17 AM Indication: Postoperative state MQ: XCP_4 Comparison: 1 day prior RESULT: See impression. IMPRESSION: Lines, tubes, and devices: The patient is status post median sternotomy. Tracheostomy tube, feeding tube, left subclavian venous catheter, mediastinal drains and right chest tube are in place. Lungs and pleura: There is elevation of the left hemidiaphragm. Patchy reticular opacities are noted, likely related to pulmonary edema. Patchy opacities are noted at the lung bases, likely related to atelectasis. There are trace bilateral pleural effusions. No pneumothorax. Cardiomediastinal silhouette: Cardiomediastinal silhouette is stable in size. Other: Surgical clips are noted overlying the right upper chest. Silver Wrapper: AMY Transcribe Date/Time: Oct 21 2017 8:19A Dictated by : EFREN RAMIREZ MD This examination was interpreted and the report reviewed and electronically signed by: EFREN RAMIREZ MD on Oct 21 2017 8:20AM EST [id number] + ALL Collected: 10/21/2017 Status: F Source: [facility] 12:05 AM [facility] RADIANCE USE ONLY REPOSITORY TYPE CODE TESTS RESULT OUT OF REFERENCE UNITS RANGE LAB PH 7.35-7.45 pH 7.35 LAB PCO2 34-46 mm Hg pCO2 43 LAB PO2 85-95 mm Hg pO2 High 135 LAB BE mmol/L Base Excess NEG 2 LAB HCO3 22-26 mmol/L Bicarbonate 23 LAB CO2CT 22.0-28.0 mmol/L CO2 Content 24 LAB O2HB 95-98 % Oxyhemoglobin, Art. 97 LAB COHB 0-5.0 % Carboxyhemoglobin,A 0.8 rt LAB MHGB 0.4-1.5 % Methemoglobin 1.0 LAB TEMP C Temperature, Body 37.0 LAB PHTC 7.35-7.45 pH, Temp Corrected 7.35 LAB PCO2T 34-46 mm Hg pCO2, Temp Correct 43 LAB PO2T mm Hg pO2, Temp Corrected 135 LAB NAB 135-146 mmol/L Sodium,Whole Bld High 160 LAB KWB 3.5-5.0 mmol/L Potassium, Whole Bld 4.6 LAB HGBB 13.0-17.0 g/dL Low Hemoglobin,Total,AC 8.4 L LAB HCTB 39.0-51.0 % Hematocrit, ACL Low 26 LAB IC 1.08-1.30 mmol/L Calcium, Ion, WB 1.24 LAB GLB 60-105 mg/dL Glucose,Whole Bld High 142 LAB LACT 0.5-2.2 mmol/L Lactate 1.2 Performed By: #### ALLBG #### [facility] [address] [place], [place] [address] CBC Collected: 10/21/2017 Status: F Source: [place] 12:05 AM [facility] REPOSITORY TYPE CODE TESTS RESULT OUT OF REFERENCE UNITS RANGE LAB WBC 3.70-11.00 k/uL WBC High 16.36 LAB RBC 4.20-6.00 m/uL Low RBC 2.78 LAB HGB 13.0-17.0 g/dL Low Hemoglobin 8.3 LAB HCT 39.0-51.0 % Low Hematocrit 26.7 LAB MCV 80.0-100.0 fL MCV 96.0 LAB MCH 26.0-34.0 pG MCH 29.9 LAB MCHC 30.5-36.0 g/dL MCHC 31.1 LAB RDWCV 11.5-15.0 % RDW-CV High 17.3 LAB PLTCT 150-400 k/uL Platelet High Count 423 LAB MPV 9.0-12.7 fL MPV 11.2 LAB ABSNUC <0.01 k/uL Absolute High nRBC 0.01 Performed By: #### CBC, CMP #### [facility] [address] [place], [place] [address] COMP METABOLIC PANEL Collected: 10/21/2017 Status: F Source: [place] 12:05 AM [facility] REPOSITORY TYPE CODE TESTS RESULT OUT OF REFERENCE UNITS RANGE LAB TP 6.3-8.0 g/dL Low Protein, Total 5.4 LAB ALB 3.9-4.9 g/dL Low Albumin 2.4 LAB CA 8.5-10.2 mg/dL Low Calcium, Total 7.9 LAB TBIL 0.2-1.3 mg/dL Bilirubin, High Total 4.7 LAB ALKP 36-108 U/L Alkaline High Phosphatase 194 LAB AST 14-40 U/L AST High 191 LAB GLU 74-99 mg/dL Glucose High 144 Result Comment: The [place] Diabetes Association (ADA) provides guidance for cutoff values for fasting glucose and random glucose. The ADA defines fasting as no caloric intake for at least 8 hours. Fas ting plasma glucose results between 100 to 125 mg/dL indicate increased risk for diabetes (prediabetes). Fasting plasma glucose results greater than or equal to 126 mg/dL meet the criteria for diagnosis of diabetes. In the absence of unequivocal hyperglycemia, results should be confirmed by repeat testing. In a patient with classic symptoms of hyperglycemia or hyperglycemic crisis, random plasma glucose results greater than or equal to 200 mg/dL meet the criteria for diagnosis of diabetes. Reference: Standards of Medical Care in Diabetes 2016, [place] [employer] Association. Diabetes Care. 2016.39(Suppl 1). LAB BUN 9-24 mg/dL BUN High 52 LAB CRET 0.73-1.22 mg/dL Creatinine 0.94 LAB NA 136-144 mmol/L Sodium High 161 Result Comment: Called to and read back by: Hue J64 10/21/17 0128 [place] LAB K 3.7-5.1 mmol/L Potassium 4.6 LAB CL 97-105 mmol/L Chloride High 130 LAB CO2 22-30 mmol/L Low CO2 21 LAB AGAP 9-18 mmol/L Anion Gap 10 LAB ALT 10-54 U/L ALT High 178 LAB GFRAA eGFR- Amer. >60 LAB GFRNAA . eGFR-All Other Races >60 Result Comment: eGFR (Estimated GFR) Units of measure: mL/min/1.73 meters squared eGFR is derived from the reexpressed MDRD Study equation using the following parameters: serum creatinine, age, gender and race. The creatinine assay has been calibrated to be traceable to IDMS. An eGFR <60 mL/min/1.73m2 for >3 months is consistent with chronic kidney disease. Refer to KDOQI guidelines for clinical interpretation. In patients with unstable renal function, e.g. those with acute kidney injury, the eGFR may not accurately reflect actual GFR. Performed By: #### CBC, CMP #### [facility] [address] [place], [place] [address] TYPE AND SCREEN Collected: 10/21/2017 Status: F Source: [place] 12:00 AM [facility] REPOSITORY TYPE CODE TESTS RESULT OUT OF REFERENCE UNITS RANGE LAB %ABR A ABO/RH(D) POSITIVE LAB % Antibody NEG Screen Performed By: #### TSCR #### [facility] [address] [place], [place] [address] GASA + ALL Collected: 10/20/2017 Status: F Source: [place] FOR 8:06 PM [facility] RADIANCE USE ONLY REPOSITORY TYPE CODE TESTS RESULT OUT OF REFERENCE UNITS RANGE LAB PH 7.35-7.45 pH 7.37 LAB PCO2 34-46 mm Hg pCO2 42 LAB PO2 85-95 mm Hg pO2 High 135 LAB BE mmol/L Base Excess NEG 1 LAB HCO3 22-26 mmol/L Bicarbonate 23 LAB CO2CT 22.0-28.0 mmol/L CO2 Content 25 LAB O2HB 95-98 % Oxyhemoglobin, Art. 96 LAB COHB 0-5.0 % Carboxyhemoglobin,A 1.6 rt LAB MHGB 0.4-1.5 % Methemoglobin 0.7 LAB TEMP C Temperature, Body 37.0 LAB PHTC 7.35-7.45 pH, Temp Corrected 7.37 LAB PCO2T 34-46 mm Hg pCO2, Temp Correct 42 LAB PO2T mm Hg pO2, Temp Corrected 135 LAB NAB 135-146 mmol/L Sodium,Whole Bld High 160 LAB KWB 3.5-5.0 mmol/L Potassium, Whole Bld 4.5 LAB HGBB 13.0-17.0 g/dL Low Hemoglobin,Total,AC 8.6 L LAB HCTB 39.0-51.0 % Hematocrit, ACL Low 27 LAB IC 1.08-1.30 mmol/L Calcium, Ion, WB 1.26 LAB GLB 60-105 mg/dL Glucose,Whole Bld High 118 LAB LACT 0.5-2.2 mmol/L Lactate 1.1 Performed By: #### ALLBG #### [facility] [address] [place], [place] [address] GASA + ALL Collected: 10/20/2017 Status: F Source: [place] FOR 5:52 PM [facility] REPOSITORY TYPE CODE TESTS RESULT OUT OF REFERENCE UNITS RANGE LAB PH 7.35-7.45 pH 7.40 LAB PCO2 34-46 mm Hg pCO2 37 LAB PO2 85-95 mm Hg pO2 High 152 LAB BE mmol/L Base Excess NEG 2 LAB HCO3 22-26 mmol/L Bicarbonate 23 LAB CO2CT 22.0-28.0 mmol/L CO2 Content 24 LAB O2HB 95-98 % Oxyhemoglobin, Art. 97 LAB COHB 0-5.0 % Carboxyhemoglobin, 1.2 Art LAB MHGB 0.4-1.5 % Methemoglobin 1.0 LAB TEMP C Temperature, Body 37.0 LAB PHTC 7.35-7.45 pH, Temp Corrected 7.40 LAB PCO2T 34-46 mm Hg pCO2, Temp Correct 37 LAB PO2T mm Hg pO2, Temp Corrected 152 LAB NAB 135-146 mmol/L Sodium,Whole High Bld 162 LAB KWB 3.5-5.0 mmol/L Potassium, Whole Bld 4.5 LAB HGBB 13.0-17.0 g/dL Low Hemoglobin,Total,A 8.1 CL LAB HCTB 39.0-51.0 % Hematocrit, Low ACL 25 LAB IC 1.08-1.30 mmol/L Calcium, Ion, WB 1.29 LAB GLB 60-105 mg/dL Glucose,Whole High Bld 123 LAB LACT 0.5-2.2 mmol/L Lactate 1.5 LAB ABGCOM Blood Gas Comm, Art Urgent value Result Comment: Na Correction called to Mary Muñiz [id number] 10.20.2017 L Kirillno LAB ACBWHO Notified Whom, Art Called to and read back by Result Comment: Juan GREEN J64 L STASAVINO LAB ACBDTE [id number] Notify Date, Art LAB ACBTME [id number] Notify Time, Art Performed By: #### ALLBG #### [facility] [address] [place] [address] SODIUM Collected: 10/20/2017 Status: F Source: [place] 5:46 PM [facility] [place] REPOSITORY TYPE CODE TESTS RESULT OUT OF REFERENCE UNITS RANGE LAB NA 136-144 mmol/L High Sodium 159 Performed By: #### NA #### [facility] [address] [place] [address] GASA + ALL Collected: 10/20/2017 Status: F Source: [place] FOR 3:34 PM [facility] RADIANCE USE ONLY REPOSITORY TYPE CODE TESTS RESULT OUT OF REFERENCE UNITS RANGE LAB PH 7.35-7.45 pH 7.37 LAB PCO2 34-46 mm Hg pCO2 40 LAB PO2 85-95 mm Hg pO2 High 137 LAB BE mmol/L Base Excess NEG 2 LAB HCO3 22-26 mmol/L Bicarbonate 23 LAB CO2CT 22.0-28.0 mmol/L CO2 Content 24 LAB O2HB 95-98 % Oxyhemoglobin, Art. 97 LAB COHB 0-5.0 % Carboxyhemoglobin,A 0.9 rt LAB MHGB 0.4-1.5 % Methemoglobin 1.0 LAB TEMP C Temperature, Body 37.0 LAB PHTC 7.35-7.45 pH, Temp Corrected 7.37 LAB PCO2T 34-46 mm Hg pCO2, Temp Correct 40 LAB PO2T mm Hg pO2, Temp Corrected 137 LAB NAB 135-146 mmol/L Sodium,Whole Bld High 159 LAB KWB 3.5-5.0 mmol/L Potassium, Whole Bld 4.8 LAB HGBB 13.0-17.0 g/dL Low Hemoglobin,Total,AC 9.0 L LAB HCTB 39.0-51.0 % Hematocrit, ACL Low 28 LAB IC 1.08-1.30 mmol/L Calcium, Ion, WB 1.24 LAB GLB 60-105 mg/dL Glucose,Whole Bld High 143 LAB LACT 0.5-2.2 mmol/L Lactate 1.4 Performed By: #### ALLBG #### [facility] [address] [place], [place] [address] GASA + ALL Collected: 10/20/2017 Status: F Source: [place] FOR 2:19 PM [facility] RADIANCE USE ONLY REPOSITORY TYPE CODE TESTS RESULT OUT OF REFERENCE UNITS RANGE LAB PH 7.35-7.45 pH Low 7.31 LAB PCO2 34-46 mm Hg pCO2 High 47 LAB PO2 85-95 mm Hg pO2 High 135 LAB BE mmol/L Base Excess NEG 3 LAB HCO3 22-26 mmol/L Bicarbonate 23 LAB CO2CT 22.0-28.0 mmol/L CO2 Content 24 LAB O2HB 95-98 % Oxyhemoglobin, Art. 96 LAB COHB 0-5.0 % Carboxyhemoglobin, 0.9 Art LAB MHGB 0.4-1.5 % Methemoglobin 1.3 LAB TEMP C Temperature, Body 37.0 LAB PHTC 7.35-7.45 pH, Temp Low Corrected 7.31 LAB PCO2T 34-46 mm Hg pCO2, Temp High Correct 47 LAB PO2T mm Hg pO2, Temp Corrected 135 LAB NAB 135-146 mmol/L Sodium,Whole High Bld 160 LAB KWB 3.5-5.0 mmol/L Potassium, High Whole Bld 5.1 LAB HGBB 13.0-17.0 g/dL Low Hemoglobin,Total,A 9.5 CL LAB HCTB 39.0-51.0 % Hematocrit, Low ACL 29 LAB IC 1.08-1.30 mmol/L Calcium, Ion, WB 1.25 LAB GLB 60-105 mg/dL Glucose,Whole High Bld 136 LAB LACT 0.5-2.2 mmol/L Lactate 1.1 LAB ACBDTE Notify Date, Art [id number] LAB ACBTME Notify Time, Art Performed By: #### ALLBG #### [facility] [address] [place], [place] [address] CONSULT PROG Observed: 10/20/2017 Status: COMPLETED Source: [place] 11:18 AM [facility] REPOSITORY HNO ID: [id number] Author: Pancho Cornelius (Pharmacist) Service: Pharmacy Author Type: Pharmacist Type: Consult Progress Note Filed: 10/20/2017 11:19 AM Note Text: PHARMACY VANCOMYCIN DOSING NOTE Patient Name: Jose Gustafson Admission Date: 10/07/2017 Date of Consult: 10/20/2017 Time of Consult: 11:19 AM Indication: Source Unknown; empiric Goal Range: 10-20 mcg/mL RECOMMENDATIONS/PLAN: Pharmacy consulted for vancomycin dosing for Jose Gustafson, a 52 year old, male who is being treated with vancomycin for empiric coverage 1. The primary service has discontinued vancomycin therapy after 13 days. Pharmacy vancomycin dosing service will sign off. Thank you for allowing us to participate in this patient's care. Please contact pharmacy with any questions. PANCHO CORNELIUS, PHARMACIST GASA + ALL Collected: 10/20/2017 Status: F Source: [place] FOR 11:13 AM [facility] RADIANCE USE ONLY REPOSITORY TYPE CODE TESTS RESULT OUT OF REFERENCE UNITS RANGE LAB PH 7.35-7.45 pH 7.37 LAB PCO2 34-46 mm Hg pCO2 40 LAB PO2 85-95 mm Hg pO2 High 131 LAB BE mmol/L Base Excess NEG 3 LAB HCO3 22-26 mmol/L Bicarbonate 22 LAB CO2CT 22.0-28.0 mmol/L CO2 Content 23 LAB O2HB 95-98 % Oxyhemoglobin, Art. 97 LAB COHB 0-5.0 % Carboxyhemoglobin, 1.6 Art LAB MHGB 0.4-1.5 % Methemoglobin 0.6 LAB TEMP C Temperature, Body 37.0 LAB PHTC 7.35-7.45 pH, Temp Corrected 7.37 LAB PCO2T 34-46 mm Hg pCO2, Temp Correct 40 LAB PO2T mm Hg pO2, Temp Corrected 131 LAB NAB 135-146 mmol/L Sodium,Whole High Bld 159 LAB KWB 3.5-5.0 mmol/L Potassium, Whole Bld 4.5 LAB HGBB 13.0-17.0 g/dL Low Hemoglobin,Total,A 9.0 CL LAB HCTB 39.0-51.0 % Hematocrit, Low ACL 28 LAB IC 1.08-1.30 mmol/L Calcium, Ion, WB 1.28 LAB GLB 60-105 mg/dL Glucose,Whole High Bld 196 LAB LACT 0.5-2.2 mmol/L Lactate 1.6 LAB ACBDTE Notify Date, Art [id number] LAB ACBTME Notify Time, Art Performed By: #### ALLBG #### [facility] [address] [place], [place] [address] SODIUM Collected: 10/20/2017 Status: F Source: [place] 11:10 AM [facility] REPOSITORY TYPE CODE TESTS RESULT OUT OF REFERENCE UNITS RANGE LAB NA 136-144 mmol/L High Sodium 161 Result Comment: Called to and read back by: Wendy Cox 10/20/17 1223 AJosephine Performed By: #### NA, VANCRA #### [facility] [address] [id number] VANCOMYCIN Collected: 10/20/2017 Status: F Source: [place] 11:10 AM [facility] REPOSITORY TYPE CODE TESTS RESULT OUT OF REFERENCE UNITS RANGE LAB VANCRA 5.0-20.0 ug/mL Vancomycin 11.6 Result Comment: Reference ranges and high/low indicator flags are provided as general guidelines only. The treating physician must determine appropriate target levels/dosing based on the specific clinical situation. Performed By: #### NA, VANCRA #### [facility] [address] [place], [place] [address] PROGRESS Observed: 10/20/2017 Status: COMPLETED Source: [place] 9:45 AM [facility] REPOSITORY HNO ID: [id number] Author: Ariane Tovar Service: Critical Care Author Type: Anesthesiologist Type: Progress Notes Filed: 10/20/2017 10:09 AM Note Text: [facility] Progress Note Name: Jose Gustafson COORDINATION OF CARE NOTE: Indication for Surgery: Spontaneous Rupture of Aorta LVEF: Normal RVF: Normal Important/Relevant PMH/PSH: HTN, asthma, hx kidney stones Preoperative Hospital Course (narrative): 52 yo M with PMH HTN, Asthma, and hx of kidney stones who is transferred to [facility] for 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 Hypotension, cardiac insufficiency on norepinephrine, vasopressin, and epoprostenol. Returned to OR 10/08 for exploration and large amount of clots were removed but no active bleeding. Chest closure attempted 10/10 but failed 2/2 desaturation. Early AM 10/11 2 CLOT for left sided weakness. CTH with large large right MCA infarct with associated mass effect. Repeat imaging with evolution of R MCA infarct with increased edema now s/p right decompressive hemicraniectomy per Neurosurgery on 10/12. Issues to communicate at signout: OPEN CHEST - plan for closure 10/14 New RT sided MCA CVA s/p right decompressive hemicraniectomy: Continue 3% for cerebral edema, maintain Na 145-155; keppra 750 mg bid x 2 weeks per neuro: okay to resume ASA 3/18; SQH 10/04 - on hold until after chest closure OTHER PROBLEMS I MANAGED DURING THIS ENCOUNTER: Problem Acute Respiratory Insufficiency, Postoperative A/p - remains on full ventilatory support 2/2 open chest, right hemicraniectomy. Remains hypoxic on increased fio2 AND peep. CXR with atelectasis and increased vascular markings. Remains on epoprostenol. Continue diuresis for volume control. 10/14/2017 will wean veletri after chest closure 10/15- unable to wean due to neuro status 10/18/2017 S/p trach will try PSV 10/19/2017 tolerating CPAP 10/20/2017 continue CPAP trial Acute Ischemic Right Mca Stroke (Hcc) New L sided weakness 10/11; CTH with large R MCA infarct with associated mass effect. Repeat imaging with evolution of R MCA infarct with increased edema 10/12/2017 - Right decompressive hemicraniectomy for R MCA stroke and malignant cerebral edema A/p - continue hypertonic saline for goal Na 145-155 - resume ASA after chest closure; - Permissive hypertension as able; goal map >80 - keppra 750 mg bid x 2 weeks 10/14/2017 S/p decompressing craniotomy last saturday10/15/2017 followed simple command 10/16/[address] yesterday no changes 10/17/2017 EEG since yesterday neuro following 10/18- no seizures, neuro following 10/20/[address] last night, no changes Moderate Protein-Calorie Malnutrition (Hcc) A/p - corpak attempted x 2, unsuccessful. Will consult procedure team for assistance after chest closure. 10/14/2017 will try again today and consult GI if not successful 10/17- tolerating TF Acute Blood Loss Anemia Has required 13u pRBCs thus far A/p - continue to trend H/H; transfuse Hct > 30% 10/14- will monitor SUBJECTIVE INTERVAL HISTORY: repeat CT during the night, no changes PERTINENT REVIEW OF SYSTEMS: See Assessment and Plan. Remaining ROS reviewed and negative. PHYSICAL EXAM AND PERTINENT DATA: Infusions: Propofol Vital Signs: BP 147/65 Pulse 91 Temp 37.7 ?C (99.9 ?F) (Oral) Resp 24 Ht 182.9 cm (6') Wt 95.5 kg (210 lb 8.6 oz) SpO2 100% BMI 28.55 kg/m2 Neuro: Sedation, following command at itme Cardiovascular: Rate:normal sinus rhythm MAP: 85 mm Hg CVP: 4 mm Hg Pulmonary: Breath sounds equal and Diminished breath sounds, at the bases Ventilator: Intubated: SPCV; FiO2: 40%; PEEP: 10; Not ready for weaning; HOB elevated 40 degrees: Yes; Oral care with chlorhexidine: Yes; Was sedation turned off? Yes Recent Labs 10/20/17 0733 10/20/17 0536 10/20/17 0024 PH 7.38 7.40 7.38 PCO2 39 32* 37 PO2 171* 175* 151* HCO3 23 19* 21* O2HB 98 98 98 LACT 1.2 1.2 1.2 CXR Findings: Atelectasis Bilateral and CXR personally viewed and interpreted by ICU staff Physician Gastrointestinal: Abdominal: Soft, Non-tender and Bowel sounds yes Recent Labs 10/20/17 0030 10/19/17 0005 10/18/17 0904 TPROT 5.9* 5.5* 5.4* ALB 2.6* 2.6* 2.6* ALKPHOS 172* 144* 109* TBILI 6.5* 7.5* 7.3* AST 136* 135* 136* ALT 134* 108* 94* Heme: Recent Labs 10/20/17 0030 10/19/17 0005 10/18/17 0100 WBC 17.81* 19.90* 22.53* HB 8.8* 9.0* 9.0* HCT 28.2* 29.3* 29.3* PLT 362 330 293 Endocrine: Renal: Stable Intake/Output Summary (Last 24 hours) at 10/20/17 0659 Last data filed at 10/20/17 0630 Gross per 24 hour Intake 3280.9 ml Output 4675 ml Net -1394.1 ml Recent Labs 10/20/17 0530 10/20/17 0030 10/19/17 1945 10/19/17 0005 10/18/17 0904 NA 160* 159* 160* < > 160* < > 162* K -- 4.6 -- -- 4.8 -- 4.3 CHLOR -- 128* -- -- 128* -- 130* CO2 -- 22 -- -- 22 -- 22 BUN -- 47* -- -- 48* -- 52* CREAT -- 0.90 -- -- 1.02 -- 1.07 GLUC -- 165* -- -- 121* -- 139* < > = values in this interval not displayed. Recent Labs 10/20/17 0030 10/19/17 0005 10/18/17 0904 CA 8.2* 8.1* 7.7* Drug Blood Levels: Recent Labs 10/17/17 1136 VANCORA 6.0 I have discussed the case and the plan and management of the patient's care with the primary surgical team and consulting services, the bedside nurse and the respiratory therapist. SIGNATURE: Ariane Tovar MD DATE of SERVICE: 10/20/2017 TIME of SERVICE: 9:46 AM I gave my full attention and provided critical care time for 32 minutes, exclusive of separately billable procedures and treating other patients. I examined the patient and directed decision making. This was necessary to treat or prevent imminent deterioration of the following condition(s) Respiratory failure and Central nervous system failure or compromise. S/p Arch replacement complicated by Right MCA CVA requiring decompression craniotomy during the weekend continue EEG monitoring, vent dependent, S/p trach try CPAP hypernatremia will give D5W and continue to monitor, neuro would like to keep it > 150 acute blood loss anemia stable?will monitor leukocytosis trending down, ID follwoing high Bili, trending down nutrition tolerating Ariane Tovar MD 10/20/2017 10:07 AM CONSULT PROG Observed: 10/20/2017 Status: COMPLETED Source: [place] 9:37 AM [facility] REPOSITORY HNO ID: [id number] Author: Freedom Benton Service: Infectious Disease Author Type: Physician Type: Consult Progress Note Filed: 10/20/2017 12:58 PM Note Text: INFECTIOUS DISEASE CONSULT SERVICE PROGRESS NOTE Date: October 20, 2017 Patient Name: Jose Gustafson examined and assessed Interval Events: cT brain this am reviewed Petechial hemorrhage within the evolving right MCA territory infarct is more conspicuous on this current exam. EEG leads on MEDICATIONS Medications reviewed. Current antibiotics include: vancomycin and zoysn EXAMINATION: Vital signs: BP 147/65 Pulse 83 Temp 37.7 ?C (99.9 ?F) (Oral) Resp 24 Ht 182.9 cm (6') Wt 95.5 kg (210 lb 8.6 oz) SpO2 100% BMI 28.55 kg/m2 supine intubated via tracheostomy gaze towards left with EEG leads on can move right foot to command sternal wound stable abd quiet craniotomy surtures clean no rash LABORATORY DATA: Lab reviewed MICROBIOLOGY DATA: Specimen #: [id number] Submitting Physician: ARPIT MCKENZIE M.D. 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 See comment. ? micro blood cx 10/17 NGTD no SA carriage in nares 10/14 tissue negative cx including afb BAL 10/15 NGT D blood cx 10/17 NGTD ? imaging preop CTA intramural type dissection (blood within lumen and blood in right chest and around pericardium) ? CXR today chest tubes median sternotomy aortic stent in place ? CT brain pre craniomtomy reviewd hemmorhage on right ? ? ? Impression/Recommendations ?? ? 52 y/o man s/p (10/07/17) total Arch replacement. 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 C/b mild hypotension requiring continued pressors and bleeding s/p multiple blood products in OR with delayed chest closure (10/14) and right cerebral hemmorhage requiring urgent craniotomy for decompression (presenting with left hemiparesis) with leukocytosis (17K) . No fevers and no steroids. Possible infection (wounds clean; lines look ok) vs aspiration (CXR no gross infiltratres). Non infectious causes include ROVING HAULER hemorrhage and dissection Has been on vancomcyin and ciprofloxacin since surgery ? 1. continue with with zoysn (empiric) 2 d/c vancomcyin 3 will followup cultures spoke to ICU team ? Signature: Freedom Benton MD Pager: [phone] Date of Service: October 20, 2017 GASA + ALL Collected: 10/20/2017 Status: F Source: [place] FOR 7:33 AM [facility] REPOSITORY TYPE CODE TESTS RESULT OUT OF REFERENCE UNITS RANGE LAB PH 7.35-7.45 pH 7.38 LAB PCO2 34-46 mm Hg pCO2 39 LAB PO2 85-95 mm Hg pO2 High 171 LAB BE mmol/L Base Excess NEG 2 LAB HCO3 22-26 mmol/L Bicarbonate 23 LAB CO2CT 22.0-28.0 mmol/L CO2 Content 24 LAB O2HB 95-98 % Oxyhemoglobin, Art. 98 LAB COHB 0-5.0 % Carboxyhemoglobin,A 0.7 rt LAB MHGB 0.4-1.5 % Methemoglobin Low 0.2 LAB TEMP C Temperature, Body 37.0 LAB PHTC 7.35-7.45 pH, Temp Corrected 7.38 LAB PCO2T 34-46 mm Hg pCO2, Temp Correct 39 LAB PO2T mm Hg pO2, Temp Corrected 171 LAB NAB 135-146 mmol/L Sodium,Whole Bld High 159 LAB KWB 3.5-5.0 mmol/L Potassium, Whole Bld 4.5 LAB HGBB 13.0-17.0 g/dL Low Hemoglobin,Total,AC 9.3 L LAB HCTB 39.0-51.0 % Hematocrit, ACL Low 29 LAB IC 1.08-1.30 mmol/L Calcium, Ion, WB 1.27 LAB GLB 60-105 mg/dL Glucose,Whole Bld High 153 LAB LACT 0.5-2.2 mmol/L Lactate 1.2 Performed By: #### ALLBG #### [facility] [address] [place], [place] [address] GASA + ALL Collected: 10/20/2017 Status: F Source: [facility] 5:36 AM [facility] RADIANCE USE ONLY REPOSITORY TYPE CODE TESTS RESULT OUT OF REFERENCE UNITS RANGE LAB PH 7.35-7.45 pH 7.40 LAB PCO2 34-46 mm Hg pCO2 Low 32 LAB PO2 85-95 mm Hg pO2 High 175 LAB BE mmol/L Base Excess NEG 5 LAB HCO3 22-26 mmol/L Bicarbonate Low 19 LAB CO2CT 22.0-28.0 mmol/L CO2 Content Low 20 LAB O2HB 95-98 % Oxyhemoglobin, Art. 98 LAB COHB 0-5.0 % Carboxyhemoglobin,A 1.5 rt LAB MHGB 0.4-1.5 % Methemoglobin Low 0.0 LAB TEMP C Temperature, Body 37.0 LAB PHTC 7.35-7.45 pH, Temp Corrected 7.40 LAB PCO2T 34-46 mm Hg pCO2, Temp Low Correct 32 LAB PO2T mm Hg pO2, Temp Corrected 175 LAB NAB 135-146 mmol/L Sodium,Whole Bld High 157 LAB KWB 3.5-5.0 mmol/L Potassium, Whole Low Bld 3.4 LAB HGBB 13.0-17.0 g/dL Low Hemoglobin,Total,AC 7.8 L LAB HCTB 39.0-51.0 % Hematocrit, ACL Low 24 LAB IC 1.08-1.30 mmol/L Calcium, Ion, WB 1.16 LAB GLB 60-105 mg/dL Glucose,Whole Bld High 126 LAB LACT 0.5-2.2 mmol/L Lactate 1.2 Performed By: #### ALLBG #### [facility] [address] [place], [place] [address] SODIUM Collected: 10/20/2017 Status: F Source: [place] 5:30 AM [facility] REPOSITORY TYPE CODE TESTS RESULT OUT OF REFERENCE UNITS RANGE LAB NA 136-144 mmol/L High Sodium 160 Performed By: #### NA #### [facility] [address] [place], [place] [address] PROCEDURE Observed: 10/20/2017 Status: COMPLETED Source: [place] 2:43 AM [facility] REPOSITORY HNO ID: [id number] Author: Art Espinoza Service: Anesthesiology Author Type: Anesthesiologist Type: Procedures Filed: 10/20/2017 6:23 AM Note Text: [facility] CV[facility] Procedure Note Name: Jose Gustafson Procedure: Arterial Line Insertion Indication: Monitoring of vital bodily functions (BP, pH, paO2, paCO2) Insertion Type: New stick Site: Right brachial artery Inserted By: Fellow Supervision: Art Espinoza MD All personnel involved with the procedure used masks and sterile gloves. The area was prepped with chlorhexidine gluconate and draped with a sterile drape following the usual aseptic technique. The artery was cannulated with a 4.45 cm, 20 gauge catheter on the first attempt. A 33 cm straight-tipped spring wire was passed into the artery through the indwelling catheter and left in situ while the catheter was advanced. The catheter was left in situ while the guidewire was removed. Pulsatile blood flow exited the catheter and an arterial waveform was noted on the monitor when the catheter was transduced. The catheter was secured in place with tape and a sterile, transparent, occlusive dressing was placed over the site. All catheters, needles and wires were accounted for and intact. The patient tolerated the procedure without apparent complications. Signature: Kumar Arzola DO Date of Procedure: 10/20/2017 Time of Procedure: 2:44 AM Present and supervised arterial line for monitoring. Art Espinoza MD CT BRAIN WO IVCON Observed: 10/20/2017 Status: F Source: [place] 2:14 AM [facility] REPOSITORY * * *Final Report* * * DATE OF EXAM: Oct 20 2017 2:14AM [facility] [place] CT BRAIN WO IVCON / PROCEDURE REASON: Lethargy * * * * Physician Interpretation * * * * EXAMINATION: CT BRAIN WO IVCON HISTORY: Lethargy TECHNIQUE: Serial axial images without IV contrast were obtained from the vertex to the foramen magnum. MQ: CTBWO_3 CT Dose-Length Product (DLP): 817.9 mGy*cm CT Dose Reduction Employed: No dose reduction techniques were required COMPARISON: Head CT from 10/15/2017, 10/14/2017 RESULT: Post-operative change: Redemonstrated are postoperative findings consistent with decompressive right hemicraniectomy. Acute change: Again seen is the evolving right MCA territory infarct. Hemorrhage: Petechial hemorrhage within the infarct, more conspicuous on this exam than the prior CT from 10/15/2017. The small amount of subdural hemorrhage overlying the right frontal convexity and right tentorium is similar. Extra-axial hemorrhage deep to the scalp flap measuring approximately 1.2 cm in transverse thickness and extending to the right sylvian region is unchanged. Stable minimal subdural blood products along the right aspect of the tentorium. Mass Lesion / Mass Effect: There is no significant change in intracranial mass effect with partial effacement of the right lateral ventricle with no significant midline shift on the current exam. There is stable herniation of the infarcted parenchyma through the craniectomy defect without evidence of impingement. Chronic change: None apparent. Parenchyma: There is no significant volume loss. Ventricles: Stable effacement of the right lateral ventricle and minimal prominence of the right temporal horn. Paranasal sinuses and skull base: Mild mucosal thickening involving the maxillary, sphenoid and right frontal sinus again noted. Nonspecific patchy opacification of the mastoid air cells. Overlying scalp EEG leads were placed in the interval. IMPRESSION: Petechial hemorrhage within the evolving right MCA territory infarct is more conspicuous on this current exam. Remaining findings are otherwise essentially unchanged since prior CT from 10/15/2017. Silver Wrapper: AMY Transcribe Date/Time: Oct 20 2017 2:32A Dictated by : MALGORZATA SPRAGUE MD This examination was interpreted and the report reviewed and electronically signed by: ANDRADE PARKS MD on Oct 20 2017 2:44AM EST [id number] XR CHEST 1V FRONTAL Observed: 10/20/2017 Status: F Source: [facility] 1:55 AM [facility] [place] REPOSITORY * * *Final Report* * * DATE OF EXAM: Oct 20 2017 1:55AM [facility] [id number] - XR CHEST 1V FRONTAL PORT / PROCEDURE REASON: Postoperative state * * * * Physician Interpretation * * * * EXAMINATION: CHEST RADIOGRAPH (PORTABLE SINGLE VIEW AP) Exam Date/Time: 10/20/2017 1:55 AM Indication: Postoperative state MQ: XCP_4 Comparison: 1 day prior RESULT: See impression. IMPRESSION: Lines, tubes, and devices: Interval removal of the mediastinal drainage tubes. Tracheostomy tube remains in place. Feeding tube courses below the diaphragm. Tip of left subclavian venous catheter overlies the mid SVC. There has been interval removal of the left thoracostomy tube and two mediastinal drainage tubes. Two additional mediastinal drainage tubes and a single right thoracostomy tube remain in place. Lungs and pleura: There are small bilateral pleural effusions with associated bibasilar atelectasis. A thin-walled circumscribed lucency overlies the left lung base; the differential considerations include a loculated pneumothorax versus emphysematous bulla. There is symmetric biapical pleural thickening, likely postinflammatory in nature. Cardiomediastinal silhouette: Stable cardiomediastinal silhouette. The patient is status post median sternotomy and endovascular stent grafting of the thoracic aorta. The heart size is within normal limits. Silver Wrapper: PSCB Transcribe Date/Time: Oct 20 2017 9:11A Dictated by : EMELI AGUILERA MD This examination was interpreted and the report reviewed and electronically signed by: EMELI AGUILERA MD on Oct 20 2017 9:14AM EST [id number] Collected: 10/20/2017 Status: F Source: [place] 1:30 AM [facility] REPOSITORY TYPE CODE TESTS RESULT OUT OF REFERENCE UNITS RANGE LAB NH3 16-60 umol/L Ammonia 31 Performed By: #### NH3 #### [place] [address] PLAN OF CARE Observed: 10/20/2017 Status: COMPLETED Source: [place] 1:12 AM [facility] REPOSITORY HNO ID: [id number] Author: Johanna (Julio Cesar) Nacho Service: Neurology Author Type: Resident Type: Plan of Care Filed: 10/20/2017 1:17 AM Note Text: STROKE NEUROLOGY - PLAN OF CARE Jose Gustafson Interval History Bedside nurse reports command following earlier during the day (blinks eyes to questions), but pt has not been responding to commands since 10/19 late evening after a brief period of sedation. Last exam documented on 10/15 by stroke team is fairly consistent with current clinic picture. Recommendations -Repeat CTh (ordered) -Continue bedside EEG and follow up report -Check serum ammonia (ordered) -Gradually correct hypernatremia Johanna Griffith MD Adult Neurology, PGY-3 Please page [phone] for assistance on weekends or after 5 PM on weekdays CBC Collected: 10/20/2017 Status: F Source: [place] 12:30 AM [facility] REPOSITORY TYPE CODE TESTS RESULT OUT OF REFERENCE UNITS RANGE LAB WBC 3.70-11.00 k/uL WBC High 17.81 LAB RBC 4.20-6.00 m/uL Low RBC 2.99 LAB HGB 13.0-17.0 g/dL Low Hemoglobin 8.8 LAB HCT 39.0-51.0 % Low Hematocrit 28.2 LAB MCV 80.0-100.0 fL MCV 94.3 LAB MCH 26.0-34.0 pG MCH 29.4 LAB MCHC 30.5-36.0 g/dL MCHC 31.2 LAB RDWCV 11.5-15.0 % RDW-CV High 17.1 LAB PLTCT 150-400 k/uL Platelet Count 362 LAB MPV 9.0-12.7 fL MPV 11.4 LAB ABSNUC <0.01 k/uL Absolute High nRBC 0.01 Performed By: #### CBC, CMP #### [facility] [address] [place], [place] [address] COMP METABOLIC PANEL Collected: 10/20/2017 Status: F Source: [place] 12:30 AM [facility] REPOSITORY TYPE CODE TESTS RESULT OUT OF REFERENCE UNITS RANGE LAB TP 6.3-8.0 g/dL Low Protein, Total 5.9 LAB ALB 3.9-4.9 g/dL Low Albumin 2.6 LAB CA 8.5-10.2 mg/dL Low Calcium, Total 8.2 LAB TBIL 0.2-1.3 mg/dL Bilirubin, High Total 6.5 LAB ALKP 36-108 U/L Alkaline High Phosphatase 172 LAB AST 14-40 U/L AST High 136 LAB GLU 74-99 mg/dL Glucose High 165 Result Comment: The [place] [employer] (ADA) provides guidance for cutoff values for fasting glucose and random glucose. The ADA defines fasting as no caloric intake for at least 8 hours. Fas ting plasma glucose results between 100 to 125 mg/dL indicate increased risk for diabetes (prediabetes). Fasting plasma glucose results greater than or equal to 126 mg/dL meet the criteria for diagnosis of diabetes. In the absence of unequivocal hyperglycemia, results should be confirmed by repeat testing. In a patient with classic symptoms of hyperglycemia or hyperglycemic crisis, random plasma glucose results greater than or equal to 200 mg/dL meet the criteria for diagnosis of diabetes. Reference: Standards of Medical Care in Diabetes 2016, [place] [employer]. Diabetes Care. 2016.39(Suppl 1). LAB BUN 9-24 mg/dL BUN High 47 LAB CRET 0.73-1.22 mg/dL Creatinine 0.90 LAB NA 136-144 mmol/L Sodium High 159 LAB K 3.7-5.1 mmol/L Potassium 4.6 LAB CL 97-105 mmol/L Chloride High 128 LAB CO2 22-30 mmol/L CO2 22 LAB AGAP 9-18 mmol/L Anion Gap 9 LAB ALT 10-54 U/L ALT High 134 LAB GFRAA eGFR- Amer. >60 LAB GFRNAA . eGFR-All Other Races >60 Result Comment: eGFR (Estimated GFR) Units of measure: mL/min/1.73 meters squared eGFR is derived from the reexpressed MDRD Study equation using the following parameters: serum creatinine, age, gender and race. The creatinine assay has been calibrated to be traceable to IDMS. An eGFR <60 mL/min/1.73m2 for >3 months is consistent with chronic kidney disease. Refer to KDOQI guidelines for clinical interpretation. In patients with unstable renal function, e.g. those with acute kidney injury, the eGFR may not accurately reflect actual GFR. Performed By: #### CBC, CMP #### [facility] [address] [place], [place] [address] GASA + ALL Collected: 10/20/2017 Status: F Source: [place] FOR 12:24 AM [facility] RADIANCE USE ONLY REPOSITORY TYPE CODE TESTS RESULT OUT OF REFERENCE UNITS RANGE LAB PH 7.35-7.45 pH 7.38 LAB PCO2 34-46 mm Hg pCO2 37 LAB PO2 85-95 mm Hg pO2 High 151 LAB BE mmol/L Base Excess NEG 3 LAB HCO3 22-26 mmol/L Bicarbonate Low 21 LAB CO2CT 22.0-28.0 mmol/L CO2 Content 22 LAB O2HB 95-98 % Oxyhemoglobin, Art. 98 LAB COHB 0-5.0 % Carboxyhemoglobin,A 1.6 rt LAB MHGB 0.4-1.5 % Methemoglobin Low 0.0 LAB TEMP C Temperature, Body 37.0 LAB PHTC 7.35-7.45 pH, Temp Corrected 7.38 LAB PCO2T 34-46 mm Hg pCO2, Temp Correct 37 LAB PO2T mm Hg pO2, Temp Corrected 151 LAB NAB 135-146 mmol/L Sodium,Whole Bld High 159 LAB KWB 3.5-5.0 mmol/L Potassium, Whole Bld 4.3 LAB HGBB 13.0-17.0 g/dL Low Hemoglobin,Total,AC 8.1 L LAB HCTB 39.0-51.0 % Hematocrit, ACL Low 25 LAB IC 1.08-1.30 mmol/L Calcium, Ion, WB 1.27 LAB GLB 60-105 mg/dL Glucose,Whole Bld High 158 LAB LACT 0.5-2.2 mmol/L Lactate 1.2 Performed By: #### ALLBG #### [facility] [address] [place], [place] [address] GASA + ALL Collected: 10/19/2017 Status: F Source: [place] FOR 7:47 PM [facility] RADIANCE USE ONLY REPOSITORY TYPE CODE TESTS RESULT OUT OF REFERENCE UNITS RANGE LAB PH 7.35-7.45 pH 7.38 LAB PCO2 34-46 mm Hg pCO2 36 LAB PO2 85-95 mm Hg pO2 High 147 LAB BE mmol/L Base Excess NEG 3 LAB HCO3 22-26 mmol/L Bicarbonate Low 21 LAB CO2CT 22.0-28.0 mmol/L CO2 Content 22 LAB O2HB 95-98 % Oxyhemoglobin, Art. 97 LAB COHB 0-5.0 % Carboxyhemoglobin,A 1.6 rt LAB MHGB 0.4-1.5 % Methemoglobin 0.7 LAB TEMP C Temperature, Body 37.0 LAB PHTC 7.35-7.45 pH, Temp Corrected 7.38 LAB PCO2T 34-46 mm Hg pCO2, Temp Correct 36 LAB PO2T mm Hg pO2, Temp Corrected 147 LAB NAB 135-146 mmol/L Sodium,Whole Bld High 159 LAB KWB 3.5-5.0 mmol/L Potassium, Whole Bld 3.9 LAB HGBB 13.0-17.0 g/dL Low Hemoglobin,Total,AC 8.7 L LAB HCTB 39.0-51.0 % Hematocrit, ACL Low 27 LAB IC 1.08-1.30 mmol/L Calcium, Ion, WB 1.27 LAB GLB 60-105 mg/dL Glucose,Whole Bld High 121 LAB LACT 0.5-2.2 mmol/L Lactate 1.2 Performed By: #### ALLBG #### [place] [id number] [place] [address] SODIUM Collected: 10/19/2017 Status: F Source: [place] 7:45 PM [facility] REPOSITORY TYPE CODE TESTS RESULT OUT OF REFERENCE UNITS RANGE LAB NA 136-144 mmol/L High Sodium 160 Performed By: #### NA #### [facility] [address] [place] [address] GASA + ALL Collected: 10/19/2017 Status: F Source: [place] FOR 5:07 PM [facility] RADIANCE USE ONLY REPOSITORY TYPE CODE TESTS RESULT OUT OF REFERENCE UNITS RANGE LAB PH 7.35-7.45 pH 7.41 LAB PCO2 34-46 mm Hg pCO2 35 LAB PO2 85-95 mm Hg pO2 High 119 LAB BE mmol/L Base Excess NEG 2 LAB HCO3 22-26 mmol/L Bicarbonate Low 21 LAB CO2CT 22.0-28.0 mmol/L CO2 Content 22 LAB O2HB 95-98 % Oxyhemoglobin, Art. 96 LAB COHB 0-5.0 % Carboxyhemoglobin,A 1.5 rt LAB MHGB 0.4-1.5 % Methemoglobin 0.9 LAB TEMP C Temperature, Body 37.0 LAB PHTC 7.35-7.45 pH, Temp Corrected 7.41 LAB PCO2T 34-46 mm Hg pCO2, Temp Correct 35 LAB PO2T mm Hg pO2, Temp Corrected 119 LAB NAB 135-146 mmol/L Sodium,Whole Bld High 158 LAB KWB 3.5-5.0 mmol/L Potassium, Whole Bld 4.2 LAB HGBB 13.0-17.0 g/dL Low Hemoglobin,Total,AC 9.1 L LAB HCTB 39.0-51.0 % Hematocrit, ACL Low 28 LAB IC 1.08-1.30 mmol/L Calcium, Ion, WB 1.28 LAB GLB 60-105 mg/dL Glucose,Whole Bld High 155 LAB LACT 0.5-2.2 mmol/L Lactate 1.7 Performed By: #### ALLBG #### [facility] [address] [place], [place] [address] GASA + ALL Collected: 10/19/2017 Status: F Source: [place] FOR 3:24 PM [facility] RADIANCE USE ONLY REPOSITORY TYPE CODE TESTS RESULT OUT OF REFERENCE UNITS RANGE LAB PH 7.35-7.45 pH 7.45 LAB PCO2 34-46 mm Hg pCO2 Low 31 LAB PO2 85-95 mm Hg pO2 High 124 LAB BE mmol/L Base Excess NEG 2 LAB HCO3 22-26 mmol/L Bicarbonate Low 21 LAB CO2CT 22.0-28.0 mmol/L CO2 Content 22 LAB O2HB 95-98 % Oxyhemoglobin, Art. 98 LAB COHB 0-5.0 % Carboxyhemoglobin, 0.2 Art LAB MHGB 0.4-1.5 % Methemoglobin Low 0.2 LAB TEMP C Temperature, Body 37.0 LAB PHTC 7.35-7.45 pH, Temp Corrected 7.45 LAB PCO2T 34-46 mm Hg pCO2, Temp Low Correct 31 LAB PO2T mm Hg pO2, Temp Corrected 124 LAB NAB 135-146 mmol/L Sodium,Whole High Bld 158 LAB KWB 3.5-5.0 mmol/L Potassium, Whole Bld 3.8 LAB HGBB 13.0-17.0 g/dL Low Hemoglobin,Total,A 9.7 CL LAB HCTB 39.0-51.0 % Hematocrit, Low ACL 30 LAB IC 1.08-1.30 mmol/L Calcium, Ion, WB 1.28 LAB GLB 60-105 mg/dL Glucose,Whole High Bld 207 LAB LACT 0.5-2.2 mmol/L Lactate 2.1 LAB ACBDTE Notify Date, Art [id number] LAB ACBTME Notify Time, Art Performed By: #### ALLBG #### [facility] [address] [place] [address] SODIUM Collected: 10/19/2017 Status: F Source: [place] 3:02 PM [facility] REPOSITORY TYPE CODE TESTS RESULT OUT OF REFERENCE UNITS RANGE LAB NA 136-144 mmol/L High Sodium 158 Performed By: #### NA #### [place] [address] SODIUM Collected: 10/19/2017 Status: F Source: [place] 12:03 PM [facility] REPOSITORY TYPE CODE TESTS RESULT OUT OF REFERENCE UNITS RANGE LAB NA 136-144 mmol/L High Sodium 160 Performed By: #### NA #### [place] [address] GASA + ALL Collected: 10/19/2017 Status: F Source: [place] FOR 11:42 AM [facility] RADIANCE USE ONLY REPOSITORY TYPE CODE TESTS RESULT OUT OF REFERENCE UNITS RANGE LAB PH 7.35-7.45 pH 7.40 LAB PCO2 34-46 mm Hg pCO2 36 LAB PO2 85-95 mm Hg pO2 High 96 LAB BE mmol/L Base Excess NEG 2 LAB HCO3 22-26 mmol/L Bicarbonate 22 LAB CO2CT 22.0-28.0 mmol/L CO2 Content 23 LAB O2HB 95-98 % Oxyhemoglobin, Art. 96 LAB COHB 0-5.0 % Carboxyhemoglobin, 1.7 Art LAB MHGB 0.4-1.5 % Methemoglobin 0.8 LAB TEMP C Temperature, Body 37.0 LAB PHTC 7.35-7.45 pH, Temp Corrected 7.40 LAB PCO2T 34-46 mm Hg pCO2, Temp Correct 36 LAB PO2T mm Hg pO2, Temp Corrected 96 LAB NAB 135-146 mmol/L Sodium,Whole High Bld 158 LAB KWB 3.5-5.0 mmol/L Potassium, Whole Bld 4.1 LAB HGBB 13.0-17.0 g/dL Low Hemoglobin,Total,A 9.5 CL LAB HCTB 39.0-51.0 % Hematocrit, Low ACL 29 LAB IC 1.08-1.30 mmol/L Calcium, Ion, WB 1.25 LAB GLB 60-105 mg/dL Glucose,Whole High Bld 146 LAB LACT 0.5-2.2 mmol/L Lactate 1.4 LAB ACBDTE Notify Date, Art [id number] LAB ACBTME Notify Time, Art Performed By: #### ALLBG #### [facility] [address] [place], [place] [address] GASA + ALL Collected: 10/19/2017 Status: F Source: [place] FOR 9:28 AM [facility] RADIANCE USE ONLY REPOSITORY TYPE CODE TESTS RESULT OUT OF REFERENCE UNITS RANGE LAB PH 7.35-7.45 pH 7.42 LAB PCO2 34-46 mm Hg pCO2 34 LAB PO2 85-95 mm Hg pO2 High 105 LAB BE mmol/L Base Excess NEG 2 LAB HCO3 22-26 mmol/L Bicarbonate 22 LAB CO2CT 22.0-28.0 mmol/L CO2 Content 23 LAB O2HB 95-98 % Oxyhemoglobin, Art. 96 LAB COHB 0-5.0 % Carboxyhemoglobin, 1.0 Art LAB MHGB 0.4-1.5 % Methemoglobin 1.1 LAB TEMP C Temperature, Body 37.0 LAB PHTC 7.35-7.45 pH, Temp Corrected 7.42 LAB PCO2T 34-46 mm Hg pCO2, Temp Correct 34 LAB PO2T mm Hg pO2, Temp Corrected 105 LAB NAB 135-146 mmol/L Sodium,Whole High Bld 157 LAB KWB 3.5-5.0 mmol/L Potassium, Whole Bld 4.4 LAB HGBB 13.0-17.0 g/dL Low Hemoglobin,Total,A 9.3 CL LAB HCTB 39.0-51.0 % Hematocrit, Low ACL 29 LAB IC 1.08-1.30 mmol/L Calcium, Ion, WB 1.28 LAB GLB 60-105 mg/dL Glucose,Whole High Bld 143 LAB LACT 0.5-2.2 mmol/L Lactate 1.6 LAB ACBDTE Notify Date, Art [id number] LAB ACBTME Notify Time, Art Performed By: #### ALLBG #### [facility] [address] [place], [place] [address] CONSULT PROG Observed: 10/19/2017 Status: COMPLETED Source: [place] 8:55 AM [facility] REPOSITORY HNO ID: [id number] Author: Freedom Benton Service: Infectious Disease Author Type: Physician Type: Consult Progress Note Filed: 10/19/2017 11:42 AM Note Text: INFECTIOUS DISEASE CONSULT SERVICE PROGRESS NOTE Date: October 19, 2017 Patient Name: Jose Gustafson examined and assessed at bedside with sister Interval Events: EEG leads on MEDICATIONS Medications reviewed. Current antibiotics include: vancomycin and zoysn EXAMINATION: Vital signs: BP 118/51 Pulse 97 Temp 37.2 ?C (99 ?F) (Oral) Resp (!) 37 Ht 182.9 cm (6') Wt 95.5 kg (210 lb 8.6 oz) SpO2 100% BMI 28.55 kg/m2 supine intubated via tracheostomy gaze towards left with EEG leads on sternal wound stable abd quiet craniotomy surtures clean no rash LABORATORY DATA: Lab reviewed MICROBIOLOGY DATA: Specimen #: [id number] Submitting Physician: ARPIT MCKENZIE M.D. 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 See comment. ? micro blood cx 10/17 NGTD no SA carriage in nares 10/14 tissue negative cx including afb BAL 10/15 NGT D blood cx 10/17 NGTD ? imaging preop CTA intramural type dissection (blood within lumen and blood in right chest and around pericardium) ? CXR today chest tubes median sternotomy aortic stent in place ? CT brain pre craniomtomy reviewd hemmorhage on right ? ? ? Impression/Recommendations ?? ? 52 y/o man s/p (10/07/17) total Arch replacement. 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 C/b mild hypotension requiring continued pressors and bleeding s/p multiple blood products in OR with delayed chest closure (10/14) and right cerebral hemmorhage requiring urgent craniotomy for decompression (presenting with left hemiparesis) with leukocytosis (17K) . No fevers and no steroids. Possible infection (wounds clean; lines look ok) vs aspiration (CXR no gross infiltratres). Non infectious causes include ROVING HAULER hemorrhage and dissection Has been on vancomcyin and ciprofloxacin since surgery ? 1. continue with with zoysn (empiric) and vancomcyin 2 will followup cultures Explained to patient's in detail and questions answered. ? Signature: Freedom Benton MD Pager: [phone] Date of Service: October 19, 2017 PROGRESS Observed: 10/19/2017 Status: COMPLETED Source: [place] 8:25 AM [facility] REPOSITORY HNO ID: [id number] Author: Ariane Tovar Service: Critical Care Author Type: Anesthesiologist Type: Progress Notes Filed: 10/19/2017 8:42 AM Note Text: [facility] Progress Note Name: Jose Gustafson COORDINATION OF CARE NOTE: Indication for Surgery: Spontaneous Rupture of Aorta LVEF: Normal RVF: Normal Important/Relevant PMH/PSH: HTN, asthma, hx kidney stones Preoperative Hospital Course (narrative): 52 yo M with PMH HTN, Asthma, and hx of kidney stones who is transferred to [facility] for 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 Hypotension, cardiac insufficiency on norepinephrine, vasopressin, and epoprostenol. Returned to OR 3/13 for exploration and large amount of clots were removed but no active bleeding. Chest closure attempted 10/10 but failed 2/2 desaturation. Early AM 10/11 2 CLOT for left sided weakness. CTH with large large right MCA infarct with associated mass effect. Repeat imaging with evolution of R MCA infarct with increased edema now s/p right decompressive hemicraniectomy per Neurosurgery on 10/12. Issues to communicate at signout: OPEN CHEST - plan for closure 10/14 New RT sided MCA CVA s/p right decompressive hemicraniectomy: Continue 3% for cerebral edema, maintain Na 145-155; keppra 750 mg bid x 2 weeks per neuro: okay to resume ASA 10/13; SQH 10/04 - on hold until after chest closure OTHER PROBLEMS I MANAGED DURING THIS ENCOUNTER: Problem Acute Respiratory Insufficiency, Postoperative A/p - remains on full ventilatory support 2/2 open chest, right hemicraniectomy. Remains hypoxic on increased fio2 AND peep. CXR with atelectasis and increased vascular markings. Remains on epoprostenol. Continue diuresis for volume control. 10/14/2017 will wean veletri after chest closure 10/15- unable to wean due to neuro status 10/18/2017 S/p trach will try PSV 10/19/2017 tolerating CPAP Postoperative Hypotension A/P - Continue current regimen of norepinephrine and vaso but keep MAP > 80 mm Hg for neuro protection 10/17/2017 on levo will wean for MAP > 80 10/18/2017 added ujana will wean for MAP > 80 10/19/2017 off meds when off sedation will monitor Acute Ischemic Right Mca Stroke (Hcc) New L sided weakness 10/11; CTH with large R MCA infarct with associated mass effect. Repeat imaging with evolution of R MCA infarct with increased edema 10/12/2017 - Right decompressive hemicraniectomy for R MCA stroke and malignant cerebral edema A/p - continue hypertonic saline for goal Na 145-155 - resume ASA after chest closure; - Permissive hypertension as able; goal map >80 - keppra 750 mg bid x 2 weeks 10/14/2017 S/p decompressing craniotomy last saturday10/15/2017 followed simple command 10/16/[address] yesterday no changes 10/17/2017 EEG since yesterday neuro following no seizures, neuro following Moderate Protein-Calorie Malnutrition (Hcc) A/p - corpak attempted x 2, unsuccessful. Will consult procedure team for assistance after chest closure. 10/14/2017 will try again today and consult GI if not successful 10/17- tolerating TF Acute Blood Loss Anemia Has required 13u pRBCs thus far A/p - continue to trend H/H; transfuse Hct > 30% 10/14- will monitor Leukocytosis on vanco and cipro, will change lines today 10/19/2017 ID following SUBJECTIVE INTERVAL HISTORY: No acute events PERTINENT REVIEW OF SYSTEMS: See Assessment and Plan. Remaining ROS reviewed and negative. PHYSICAL EXAM AND PERTINENT DATA: Infusions: None Vital Signs: BP 118/51 Pulse 97 Temp 37.2 ?C (99 ?F) (Oral) Resp (!) 37 Ht 182.9 cm (6') Wt 95.5 kg (210 lb 8.6 oz) SpO2 100% BMI 28.55 kg/m2 Neuro: Unresponsive and Sedation Cardiovascular: Rate:normal sinus rhythm MAP: 85 mm Hg CVP: 5 mm Hg Pulmonary: Breath sounds equal and Diminished breath sounds, at the bases Ventilator: Intubated: SPCV; FiO2: 40%; PEEP: 10; PSV; HOB elevated 40 degrees: Yes; Oral care with chlorhexidine: Yes; Was sedation turned off? Yes Recent Labs 10/19/17 0734 10/19/17 0602 10/19/17 0330 PH 7.34* 7.33* 7.38 PCO2 44 44 38 PO2 109* 84* 100* HCO3 23 23 22 O2HB 96 93* 96 LACT 1.1 1.2 1.4 CXR Findings: Infiltrate Right, Atelectasis Bilateral and CXR personally viewed and interpreted by ICU staff Physician Gastrointestinal: Abdominal: Soft, Non-tender and Bowel sounds yes Recent Labs 10/19/17 0005 10/18/17 0904 10/18/17 0100 TPROT 5.5* 5.4* 5.8* ALB 2.6* 2.6* 2.7* ALKPHOS 144* 109* 85 TBILI 7.5* 7.3* 7.5* AST 135* 136* 81* ALT 108* 94* 88* Heme: Recent Labs 10/19/17 0005 10/18/17 0100 10/17/17 0128 WBC 19.90* 22.53* 17.21* HB 9.0* 9.0* 9.2* HCT 29.3* 29.3* 30.8* PLT 330 293 252 Endocrine: Renal: Stable Intake/Output Summary (Last 24 hours) at 10/19/17 0659 Last data filed at 10/19/17 0630 Gross per 24 hour Intake 6695 ml Output 5255 ml Net 1440 ml Recent Labs 10/19/17 0357 10/19/17 0005 10/18/17 1933 10/18/17 0904 10/18/17 0100 NA 159* 160* 159* < > 162* < > 161* K -- 4.8 -- -- 4.3 -- 4.6 CHLOR -- 128* -- -- 130* -- 128* CO2 -- 22 -- -- 22 -- 23 BUN -- 48* -- -- 52* -- 54* CREAT -- 1.02 -- -- 1.07 -- 1.16 GLUC -- 121* -- -- 139* -- 138* < > = values in this interval not displayed. Recent Labs 10/19/17 0005 10/18/17 0904 10/18/17 0100 CA 8.1* 7.7* 7.8* Recent Labs 10/17/17 0913 P 2.6* Drug Blood Levels: Recent Labs 10/17/17 1136 VANCORA 6.0 I have discussed the case and the plan and management of the patient's care with the primary surgical team and consulting services, the bedside nurse and the respiratory therapist. SIGNATURE: Ariane Tovar MD DATE of SERVICE: 10/19/2017 TIME of SERVICE: 8:26 AM I gave my full attention and provided critical care time for 32 minutes, exclusive of separately billable procedures and treating other patients. I examined the patient and directed decision making. This was necessary to treat or prevent imminent deterioration of the following condition(s) Respiratory failure and Central nervous system failure or compromise. S/p Arch replacement complicated by Right MCA CVA requiring decompression craniotomy during the weekend EEG monitoring, no seizures. vent dependent, S/p trach will tolerating CPAP hypernatremia stable will monitor acute blood loss anemia stable?will monitor leukocytosis with fever ID following, awaiting culture result high Bili, trending down nutrition tolerating TF Ariane Tovar MD 10/19/2017 8:38 AM GASA + ALL Collected: 10/19/2017 Status: F Source: [facility] 7:34 AM [facility] RADIANCE USE ONLY REPOSITORY TYPE CODE TESTS RESULT OUT OF REFERENCE UNITS RANGE LAB PH 7.35-7.45 pH Low 7.34 LAB PCO2 34-46 mm Hg pCO2 44 LAB PO2 85-95 mm Hg pO2 High 109 LAB BE mmol/L Base Excess NEG 2 LAB HCO3 22-26 mmol/L Bicarbonate 23 LAB CO2CT 22.0-28.0 mmol/L CO2 Content 24 LAB O2HB 95-98 % Oxyhemoglobin, Art. 96 LAB COHB 0-5.0 % Carboxyhemoglobin, 1.4 Art LAB MHGB 0.4-1.5 % Methemoglobin 1.0 LAB TEMP C Temperature, Body 37.0 LAB PHTC 7.35-7.45 pH, Temp Low Corrected 7.34 LAB PCO2T 34-46 mm Hg pCO2, Temp Correct 44 LAB PO2T mm Hg pO2, Temp Corrected 109 LAB NAB 135-146 mmol/L Sodium,Whole High Bld 157 LAB KWB 3.5-5.0 mmol/L Potassium, Whole Bld 4.5 LAB HGBB 13.0-17.0 g/dL Low Hemoglobin,Total,A 9.4 CL LAB HCTB 39.0-51.0 % Hematocrit, Low ACL 29 LAB IC 1.08-1.30 mmol/L Calcium, Ion, WB 1.29 LAB GLB 60-105 mg/dL Glucose,Whole High Bld 133 LAB LACT 0.5-2.2 mmol/L Lactate 1.1 LAB ACBDTE Notify Date, Art [id number] LAB ACBTME Notify Time, Art Performed By: #### ALLBG #### [facility] [address] [place], [place] [address] SODIUM Collected: 10/19/2017 Status: F Source: [place] 7:28 AM [facility] REPOSITORY TYPE CODE TESTS RESULT OUT OF REFERENCE UNITS RANGE LAB NA 136-144 mmol/L High Sodium 160 Performed By: #### NA #### [facility] [address] [place] [address] GASA + ALL Collected: 10/19/2017 Status: F Source: [facility] 6:02 AM [facility] RADIANCE USE ONLY REPOSITORY TYPE CODE TESTS RESULT OUT OF REFERENCE UNITS RANGE LAB PH 7.35-7.45 pH Low 7.33 LAB PCO2 34-46 mm Hg pCO2 44 LAB PO2 85-95 mm Hg pO2 Low 84 LAB BE mmol/L Base Excess NEG 3 LAB HCO3 22-26 mmol/L Bicarbonate 23 LAB CO2CT 22.0-28.0 mmol/L CO2 Content 24 LAB O2HB 95-98 % Oxyhemoglobin, Low Art. 93 LAB COHB 0-5.0 % Carboxyhemoglobin,A 1.6 rt LAB MHGB 0.4-1.5 % Methemoglobin 0.8 LAB TEMP C Temperature, Body 37.0 LAB PHTC 7.35-7.45 pH, Temp Low Corrected 7.33 LAB PCO2T 34-46 mm Hg pCO2, Temp Correct 44 LAB PO2T mm Hg pO2, Temp Corrected 84 LAB NAB 135-146 mmol/L Sodium,Whole Bld High 157 LAB KWB 3.5-5.0 mmol/L Potassium, Whole Bld 4.4 LAB HGBB 13.0-17.0 g/dL Low Hemoglobin,Total,AC 9.1 L LAB HCTB 39.0-51.0 % Hematocrit, ACL Low 28 LAB IC 1.08-1.30 mmol/L Calcium, Ion, WB 1.25 LAB GLB 60-105 mg/dL Glucose,Whole Bld High 130 LAB LACT 0.5-2.2 mmol/L Lactate 1.2 Performed By: #### ALLBG #### [facility] [address] SODIUM Collected: 10/19/2017 Status: F Source: [place] 3:57 AM [facility] REPOSITORY TYPE CODE TESTS RESULT OUT OF REFERENCE UNITS RANGE LAB NA 136-144 mmol/L High Sodium 159 Performed By: #### NA #### [facility] [address] [place] [id number] GASA + ALL Collected: 10/19/2017 Status: F Source: [facility] 3:30 AM [facility] RADIANCE USE ONLY REPOSITORY TYPE CODE TESTS RESULT OUT OF REFERENCE UNITS RANGE LAB PH 7.35-7.45 pH 7.38 LAB PCO2 34-46 mm Hg pCO2 38 LAB PO2 85-95 mm Hg pO2 High 100 LAB BE mmol/L Base Excess NEG 2 LAB HCO3 22-26 mmol/L Bicarbonate 22 LAB CO2CT 22.0-28.0 mmol/L CO2 Content 23 LAB O2HB 95-98 % Oxyhemoglobin, Art. 96 LAB COHB 0-5.0 % Carboxyhemoglobin,A 1.5 rt LAB MHGB 0.4-1.5 % Methemoglobin 0.6 LAB TEMP C Temperature, Body 37.0 LAB PHTC 7.35-7.45 pH, Temp Corrected 7.38 LAB PCO2T 34-46 mm Hg pCO2, Temp Correct 38 LAB PO2T mm Hg pO2, Temp Corrected 100 LAB NAB 135-146 mmol/L Sodium,Whole Bld High 157 LAB KWB 3.5-5.0 mmol/L Potassium, Whole Bld 4.3 LAB HGBB 13.0-17.0 g/dL Low Hemoglobin,Total,AC 9.1 L LAB HCTB 39.0-51.0 % Hematocrit, ACL Low 28 LAB IC 1.08-1.30 mmol/L Calcium, Ion, WB 1.24 LAB GLB 60-105 mg/dL Glucose,Whole Bld High 141 LAB LACT 0.5-2.2 mmol/L Lactate 1.4 Performed By: #### ALLBG #### [facility] [address] [place], [place] [address] XR CHEST 1V FRONTAL Observed: 10/19/2017 Status: F Source: [facility] 1:54 AM [facility] REPOSITORY * * *Final Report* * * DATE OF EXAM: Oct 19 2017 1:54AM IVANNA [id number] - XR CHEST 1V FRONTAL PORT / PROCEDURE REASON: Postoperative state * * * * Physician Interpretation * * * * EXAMINATION: CHEST RADIOGRAPH (PORTABLE SINGLE VIEW AP) Exam Date/Time: 10/19/2017 1:54 AM Indication: Postoperative state MQ: [id number] Comparison: 10/18/2017 at 0329 hours RESULT: See impression. IMPRESSION: Lines, tubes, and devices: Tracheostomy catheter, feeding tube, left subclavian central venous catheter (tip in SVC) mediastinal drains and bilateral chest tubes remain in place. Lungs and pleura: The left costophrenic angle is excluded from view. Rounded left basilar lucency appear unchanged from the prior, possibly related to loculated left basilar pneumothorax or loculated subdiaphragmatic air; this appears stable to decreased in size from the 10/17/2017 at 0858 hour radiograph. Small right and trace left effusion present. Bibasilar airspace opacities most likely secondary to atelectasis; component of infection/aspiration not excluded in appropriate clinical setting. Cardiomediastinal silhouette: Status post median sternotomy. Endovascular stent graft material seen within the aortic arch/proximal descending thoracic aorta. Cardiomediastinal silhouette is stable in size. Other: Surgical clips seen within the right subclavian/axillary region. Sternotomy wires unchanged in alignment. [facility] Transcribe Date/Time: Oct 19 2017 8:10A Dictated by : ANNA CARTER MD This examination was interpreted and the report reviewed and electronically signed by: ANNA CARTER MD on Oct 19 2017 8:17AM EST [id number] GASA + ALL Collected: 10/19/2017 Status: F Source: [place] FOR 12:20 AM [facility] USE ONLY REPOSITORY TYPE CODE TESTS RESULT OUT OF REFERENCE UNITS RANGE LAB PH 7.35-7.45 pH 7.38 LAB PCO2 34-46 mm Hg pCO2 37 LAB PO2 85-95 mm Hg pO2 High 126 LAB BE mmol/L Base Excess NEG 3 LAB HCO3 22-26 mmol/L Bicarbonate Low 21 LAB CO2CT 22.0-28.0 mmol/L CO2 Content 22 LAB O2HB 95-98 % Oxyhemoglobin, Art. 96 LAB COHB 0-5.0 % Carboxyhemoglobin,A 0.9 rt LAB MHGB 0.4-1.5 % Methemoglobin 0.9 LAB TEMP C Temperature, Body 37.0 LAB PHTC 7.35-7.45 pH, Temp Corrected 7.38 LAB PCO2T 34-46 mm Hg pCO2, Temp Correct 37 LAB PO2T mm Hg pO2, Temp Corrected 126 LAB NAB 135-146 mmol/L Sodium,Whole Bld High 157 LAB KWB 3.5-5.0 mmol/L Potassium, Whole Bld 4.4 LAB HGBB 13.0-17.0 g/dL Low Hemoglobin,Total,AC 8.9 L LAB HCTB 39.0-51.0 % Hematocrit, ACL Low 28 LAB IC 1.08-1.30 mmol/L Calcium, Ion, WB 1.25 LAB GLB 60-105 mg/dL Glucose,Whole Bld High 119 LAB LACT 0.5-2.2 mmol/L Lactate 1.5 Performed By: #### ALLBG #### [facility] [address], [place] [address] CBC Collected: 10/19/2017 Status: F Source: [place] 12:05 AM [facility] REPOSITORY TYPE CODE TESTS RESULT OUT OF REFERENCE UNITS RANGE LAB WBC 3.70-11.00 k/uL WBC High 19.90 LAB RBC 4.20-6.00 m/uL Low RBC 3.08 LAB HGB 13.0-17.0 g/dL Low Hemoglobin 9.0 LAB HCT 39.0-51.0 % Low Hematocrit 29.3 LAB MCV 80.0-100.0 fL MCV 95.1 LAB MCH 26.0-34.0 pG MCH 29.2 LAB MCHC 30.5-36.0 g/dL MCHC 30.7 LAB RDWCV 11.5-15.0 % RDW-CV High 17.1 LAB PLTCT 150-400 k/uL Platelet Count 330 LAB MPV 9.0-12.7 fL MPV 11.1 LAB ABSNUC <0.01 k/uL Absolute High nRBC 0.01 Performed By: #### CBC, CMP #### [facility] [address], [place] [address] COMP METABOLIC PANEL Collected: 10/19/2017 Status: F Source: [place] 12:05 [facility] REPOSITORY TYPE CODE TESTS RESULT OUT OF REFERENCE UNITS RANGE LAB TP 6.3-8.0 g/dL Low Protein, Total 5.5 LAB ALB 3.9-4.9 g/dL Low Albumin 2.6 LAB CA 8.5-10.2 mg/dL Low Calcium, Total 8.1 LAB TBIL 0.2-1.3 mg/dL Bilirubin, High Total 7.5 LAB ALKP 36-108 U/L Alkaline High Phosphatase 144 LAB AST 14-40 U/L AST High 135 LAB GLU 74-99 mg/dL Glucose High 121 Result Comment: The [place] Diabetes Association (ADA) provides guidance for cutoff values for fasting glucose and random glucose. The ADA defines fasting as no caloric intake for at least 8 hours. Fas ting plasma glucose results between 100 to 125 mg/dL indicate increased risk for diabetes (prediabetes). Fasting plasma glucose results greater than or equal to 126 mg/dL meet the criteria for diagnosis of diabetes. In the absence of unequivocal hyperglycemia, results should be confirmed by repeat testing. In a patient with classic symptoms of hyperglycemia or hyperglycemic crisis, random plasma glucose results greater than or equal to 200 mg/dL meet the criteria for diagnosis of diabetes. Reference: Standards of Medical Care in Diabetes 2016, [place] [employer]. Diabetes Care. 2016.39(Suppl 1). LAB BUN 9-24 mg/dL BUN High 48 LAB CRET 0.73-1.22 mg/dL Creatinine 1.02 LAB NA 136-144 mmol/L Sodium High 160 LAB K 3.7-5.1 mmol/L Potassium 4.8 LAB CL 97-105 mmol/L Chloride High 128 LAB CO2 22-30 mmol/L CO2 22 LAB AGAP 9-18 mmol/L Anion Gap 10 LAB ALT 10-54 U/L ALT High 108 LAB GFRAA eGFR- Amer. >60 LAB GFRNAA . eGFR-All Other Races >60 Result Comment: eGFR (Estimated GFR) Units of measure: mL/min/1.73 meters squared eGFR is derived from the reexpressed MDRD Study equation using the following parameters: serum creatinine, age, gender and race. The creatinine assay has been calibrated to be traceable to IDMS. An eGFR <60 mL/min/1.73m2 for >3 months is consistent with chronic kidney disease. Refer to KDOQI guidelines for clinical interpretation. In patients with unstable renal function, e.g. those with acute kidney injury, the eGFR may not accurately reflect actual GFR. Performed By: #### CBC, CMP #### [facility] [address] [place], [place] [address] GASA + ALL Collected: 10/18/2017 Status: F Source: [place] FOR 10:44 PM [facility] USE ONLY REPOSITORY TYPE CODE TESTS RESULT OUT OF REFERENCE UNITS RANGE LAB PH 7.35-7.45 pH 7.36 LAB PCO2 34-46 mm Hg pCO2 40 LAB PO2 85-95 mm Hg pO2 High 107 LAB BE mmol/L Base Excess NEG 3 LAB HCO3 22-26 mmol/L Bicarbonate 22 LAB CO2CT 22.0-28.0 mmol/L CO2 Content 23 LAB O2HB 95-98 % Oxyhemoglobin, Art. 96 LAB COHB 0-5.0 % Carboxyhemoglobin,A 1.4 rt LAB MHGB 0.4-1.5 % Methemoglobin 1.2 LAB TEMP C Temperature, Body 37.0 LAB PHTC 7.35-7.45 pH, Temp Corrected 7.36 LAB PCO2T 34-46 mm Hg pCO2, Temp Correct 40 LAB PO2T mm Hg pO2, Temp Corrected 107 LAB NAB 135-146 mmol/L Sodium,Whole Bld High 158 LAB KWB 3.5-5.0 mmol/L Potassium, Whole Bld 4.6 LAB HGBB 13.0-17.0 g/dL Low Hemoglobin,Total,AC 9.2 L LAB HCTB 39.0-51.0 % Hematocrit, ACL Low 29 LAB IC 1.08-1.30 mmol/L Calcium, Ion, WB 1.29 LAB GLB 60-105 mg/dL Glucose,Whole Bld High 119 LAB LACT 0.5-2.2 mmol/L Lactate 1.5 Performed By: #### ALLBG #### [facility] [address] [place], [place] [address] GASA + ALL Collected: 10/18/2017 Status: F Source: [place] FOR 7:35 PM [facility] USE ONLY REPOSITORY TYPE CODE TESTS RESULT OUT OF REFERENCE UNITS RANGE LAB PH 7.35-7.45 pH Low 7.31 LAB PCO2 34-46 mm Hg pCO2 43 LAB PO2 85-95 mm Hg pO2 High 102 LAB BE mmol/L Base Excess NEG 4 LAB HCO3 22-26 mmol/L Bicarbonate Low 21 LAB CO2CT 22.0-28.0 mmol/L CO2 Content 22 LAB O2HB 95-98 % Oxyhemoglobin, Art. 95 LAB COHB 0-5.0 % Carboxyhemoglobin,A 1.2 rt LAB MHGB 0.4-1.5 % Methemoglobin 1.1 LAB TEMP C Temperature, Body 37.0 LAB PHTC 7.35-7.45 pH, Temp Low Corrected 7.31 LAB PCO2T 34-46 mm Hg pCO2, Temp Correct 43 LAB PO2T mm Hg pO2, Temp Corrected 102 LAB NAB 135-146 mmol/L Sodium,Whole Bld High 158 LAB KWB 3.5-5.0 mmol/L Potassium, Whole Bld 4.4 LAB HGBB 13.0-17.0 g/dL Low Hemoglobin,Total,AC 9.1 L LAB HCTB 39.0-51.0 % Hematocrit, ACL Low 28 LAB IC 1.08-1.30 mmol/L Calcium, Ion, WB 1.21 LAB GLB 60-105 mg/dL Glucose,Whole Bld High 124 LAB LACT 0.5-2.2 mmol/L Lactate 1.1 Performed By: #### ALLBG #### [facility] [address] [place] [id number] SODIUM Collected: 10/18/2017 Status: F Source: [place] 7:33 PM [facility] REPOSITORY TYPE CODE TESTS RESULT OUT OF REFERENCE UNITS RANGE LAB NA 136-144 mmol/L High Sodium 159 Performed By: #### NA #### [facility] [address] [place] [id number] URINALYSIS Collected: 10/18/2017 Status: F Source: [place] 6:03 PM [facility] REPOSITORY TYPE CODE TESTS RESULT OUT OF RANGE REFERENCE UNITS LAB UCOL Yellow Color Abnormal Malinda Alert LAB [facility] Clear Clarity Abnormal Cloudy Alert LAB UGLUC Negative mg/dL Glucose, Urine Negative LAB UBIL Negative Bilirubin, Urine Negative LAB UKET Negative Ketones, Urine Negative LAB USPG 1.005-1.030 Specific [place], Ur 1.018 LAB UHGB Negative Hemoglobin/Blood, Negative Ur LAB UPH 4.5-8.0 pH 5.0 LAB UPROT Negative mg/dL Protein, Urine Negative LAB UUROB Normal Urobilinogen Normal LAB UNITR Negative Nitrites Negative LAB ULKEST Negative Leukest Negative LAB UCOM Comments SEE COMMENT Result Comment: Microscopic not warranted LAB UMCOM Urine SEE Will Comment COMMENT Result Comment: N/A Performed By: #### UA #### [facility] [address] [place], [place] [address] GASA + ALL Collected: 10/18/2017 Status: F Source: [place] FOR 5:29 PM [facility] RADIANCE USE ONLY REPOSITORY TYPE CODE TESTS RESULT OUT OF REFERENCE UNITS RANGE LAB PH 7.35-7.45 pH Low 7.33 LAB PCO2 34-46 mm Hg pCO2 42 LAB PO2 85-95 mm Hg pO2 High 132 LAB BE mmol/L Base Excess NEG 4 LAB HCO3 22-26 mmol/L Bicarbonate Low 21 LAB CO2CT 22.0-28.0 mmol/L CO2 Content 23 LAB O2HB 95-98 % Oxyhemoglobin, Art. 98 LAB COHB 0-5.0 % Carboxyhemoglobin,A 0.7 rt LAB MHGB 0.4-1.5 % Methemoglobin Low 0.2 LAB TEMP C Temperature, Body 37.0 LAB PHTC 7.35-7.45 pH, Temp Low Corrected 7.33 LAB PCO2T 34-46 mm Hg pCO2, Temp Correct 42 LAB PO2T mm Hg pO2, Temp Corrected 132 LAB NAB 135-146 mmol/L Sodium,Whole Bld High 157 LAB KWB 3.5-5.0 mmol/L Potassium, Whole Bld 4.3 LAB HGBB 13.0-17.0 g/dL Low Hemoglobin,Total,AC 9.1 L LAB HCTB 39.0-51.0 % Hematocrit, ACL Low 28 LAB IC 1.08-1.30 mmol/L Calcium, Ion, WB 1.24 LAB GLB 60-105 mg/dL Glucose,Whole Bld High 125 LAB LACT 0.5-2.2 mmol/L Lactate 1.3 Performed By: #### ALLBG #### [facility] [address] [place], [place] [address] SODIUM Collected: 10/18/2017 Status: F Source: [place] 3:39 PM [facility] REPOSITORY TYPE CODE TESTS RESULT OUT OF REFERENCE UNITS RANGE LAB NA 136-144 mmol/L High Sodium 159 Performed By: #### NA #### [facility] [address] [place], [place] [address] GASA + ALL Collected: 10/18/2017 Status: F Source: [place] FOR 2:48 PM [facility]IANCE USE ONLY REPOSITORY TYPE CODE TESTS RESULT OUT OF REFERENCE UNITS RANGE LAB PH 7.35-7.45 pH 7.38 LAB PCO2 34-46 mm Hg pCO2 35 LAB PO2 85-95 mm Hg pO2 High 180 LAB BE mmol/L Base Excess NEG 4 LAB HCO3 22-26 mmol/L Bicarbonate Low 20 LAB CO2CT 22.0-28.0 mmol/L CO2 Content 22 LAB O2HB 95-98 % Oxyhemoglobin, Art. 97 LAB COHB 0-5.0 % Carboxyhemoglobin,A 1.1 rt LAB MHGB 0.4-1.5 % Methemoglobin 1.3 LAB TEMP C Temperature, Body 37.0 LAB PHTC 7.35-7.45 pH, Temp Corrected 7.38 LAB PCO2T 34-46 mm Hg pCO2, Temp Correct 35 LAB PO2T mm Hg pO2, Temp Corrected 180 LAB NAB 135-146 mmol/L Sodium,Whole Bld High 157 LAB KWB 3.5-5.0 mmol/L Potassium, Whole Bld 4.1 LAB HGBB 13.0-17.0 g/dL Low Hemoglobin,Total,AC 9.1 L LAB HCTB 39.0-51.0 % Hematocrit, ACL Low 28 LAB IC 1.08-1.30 mmol/L Calcium, Ion, WB 1.19 LAB GLB 60-105 mg/dL Glucose,Whole Bld High 117 LAB LACT 0.5-2.2 mmol/L Lactate 1.2 Performed By: #### ALLBG #### [facility] [address] [place] [id number] PROGRESS Observed: 10/18/2017 Status: COMPLETED Source: [place] 12:20 PM [facility] REPOSITORY HNO ID: [id number] Author: Cheng (Back Maker) MIRELLA Louis.ROVING HAULER Service: Critical Care Author Type: Nurse Specialist Type: Progress Notes Filed: 10/18/2017 12:21 PM Note Text: Pressure Injury Prevention Rounds completed on this patient. Assessment done on appropriate implementation of TAPS, wedges, TruVue Boots, skin barrier lotions, and other acceptable alternatives such as Zflow and heel elevation. Education provided to bedside nurse and clinical technicians regarding these pressure ulcer prevention techniques. Cheng Louis MSN, APPLICATIONS SALES CONSULTANT, ACCNS-AG, CCRN PROGRESS Observed: 10/18/2017 Status: COMPLETED Source: [place] 11:49 AM [facility] REPOSITORY HNO ID: [id number] Author: Florence Sharif Service: Neurosurgery Author Type: Physician Type: Progress Notes Filed: 10/18/2017 11:50 AM Note Text: Patient personally seen and examined. updated at the bedside. Wound appears benign without sign of infection. Appropriate swelling for this stage of stroke evolution. When stable from cardiac standpoint in 2-3 months we can replace bone. Florence Sharif MD GASA + ALL Collected: 10/18/2017 Status: F Source: [place] FOR 11:38 AM [facility] RADIANCE USE ONLY REPOSITORY TYPE CODE TESTS RESULT OUT OF REFERENCE UNITS RANGE LAB PH 7.35-7.45 pH 7.39 LAB PCO2 34-46 mm Hg pCO2 36 LAB PO2 85-95 mm Hg pO2 High 155 LAB BE mmol/L Base Excess NEG 3 LAB HCO3 22-26 mmol/L Bicarbonate Low 21 LAB CO2CT 22.0-28.0 mmol/L CO2 Content 22 LAB O2HB 95-98 % Oxyhemoglobin, Art. 97 LAB COHB 0-5.0 % Carboxyhemoglobin, 1.2 Art LAB MHGB 0.4-1.5 % Methemoglobin 1.1 LAB TEMP C Temperature, Body 37.0 LAB PHTC 7.35-7.45 pH, Temp Corrected 7.39 LAB PCO2T 34-46 mm Hg pCO2, Temp Correct 36 LAB PO2T mm Hg pO2, Temp Corrected 155 LAB NAB 135-146 mmol/L Sodium,Whole High Bld 158 LAB KWB 3.5-5.0 mmol/L Potassium, Whole Bld 3.9 LAB HGBB 13.0-17.0 g/dL Low Hemoglobin,Total,A 8.8 CL LAB HCTB 39.0-51.0 % Hematocrit, Low ACL 27 LAB IC 1.08-1.30 mmol/L Calcium, Ion, WB 1.21 LAB GLB 60-105 mg/dL Glucose,Whole High Bld 121 LAB LACT 0.5-2.2 mmol/L Lactate 1.8 LAB ACBDTE Notify Date, Art [id number] LAB ACBTME Notify Time, Art Performed By: #### ALLBG #### [facility] [address] [place], [place] [address] SODIUM Collected: 10/18/2017 Status: F Source: [place] 11:23 AM [facility] REPOSITORY TYPE CODE TESTS RESULT OUT OF REFERENCE UNITS RANGE LAB NA 136-144 mmol/L High Sodium 159 Performed By: #### NA #### [facility] [address] [place], [place] [address] PROGRESS Observed: 10/18/2017 Status: COMPLETED Source: [place] 9:43 AM [facility] REPOSITORY HNO ID: [id number] Author: Ariane Tovar Service: Critical Care Author Type: Anesthesiologist Type: Progress Notes Filed: 10/18/2017 10:08 AM Note Text: [facility] Progress Note Name: Jose Gustafson COORDINATION OF CARE NOTE: Indication for Surgery: Spontaneous Rupture of Aorta LVEF: Normal RVF: Normal Important/Relevant PMH/PSH: HTN, asthma, hx kidney stones Preoperative Hospital Course (narrative): 52 yo M with PMH HTN, Asthma, and hx of kidney stones who is transferred to [facility] for 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 Hypotension, cardiac insufficiency on norepinephrine, vasopressin, and epoprostenol. Returned to OR 10/08 for exploration and large amount of clots were removed but no active bleeding. Chest closure attempted 10/10 but failed 2/2 desaturation. Early AM 10/11 2 CLOT for left sided weakness. CTH with large large right MCA infarct with associated mass effect. Repeat imaging with evolution of R MCA infarct with increased edema now s/p right decompressive hemicraniectomy per Neurosurgery on 10/12. Issues to communicate at signout: OPEN CHEST - plan for closure 10/14 New RT sided MCA CVA s/p right decompressive hemicraniectomy: Continue 3% for cerebral edema, maintain Na 145-155; keppra 750 mg bid x 2 weeks per neuro: okay to resume ASA 10/13; SQH 10/04 - on hold until after chest closure OTHER PROBLEMS I MANAGED DURING THIS ENCOUNTER: Problem Acute Respiratory Insufficiency, Postoperative A/p - remains on full ventilatory support 08/30 open chest, right hemicraniectomy. Remains hypoxic on increased fio2 AND peep. CXR with atelectasis and increased vascular markings. Remains on epoprostenol. Continue diuresis for volume control. 10/14/2017 will wean veletri after chest closure 10/15- unable to wean due to neuro status 10/18/2017 S/p trach will try PSV Postoperative Hypotension A/P - Continue current regimen of norepinephrine and vaso but keep MAP > 80 mm Hg for neuro protection 10/17/2017 on levo will wean for MAP > 80 10/18/2017 added juana will wean for MAP > 80 Acute Ischemic Right Mca Stroke (Hcc) New L sided weakness 10/11; CTH with large R MCA infarct with associated mass effect. Repeat imaging with evolution of R MCA infarct with increased edema 10/12/2017 - Right decompressive hemicraniectomy for R MCA stroke and malignant cerebral edema A/p - continue hypertonic saline for goal Na 145-155 - resume ASA after chest closure; - Permissive hypertension as able; goal map >80 - keppra 750 mg bid x 2 weeks 10/14/2017 S/p decompressing craniotomy last saturday10/15/2017 followed simple command 10/16/[address] yesterday no changes 10/17/2017 EEG since yesterday neuro following 10/18/2017 no seizures, neuro following Moderate Protein-Calorie Malnutrition (Hcc) A/p - corpak attempted x 2, unsuccessful. Will consult procedure team for assistance after chest closure. 10/14/2017 will try again today and consult GI if not successful 10/17- tolerating TF Acute Blood Loss Anemia Has required 13u pRBCs thus far A/p - continue to trend H/H; transfuse Hct > 30% 10/14- will monitor SUBJECTIVE INTERVAL HISTORY: No acute events PERTINENT REVIEW OF SYSTEMS: See Assessment and Plan. Remaining ROS reviewed and negative. PHYSICAL EXAM AND PERTINENT DATA: Infusions: Fentanyl Norepinephrine Phenylephrine Propofol Vital Signs: BP 102/51 Pulse 86 Temp 36.9 ?C (98.4 ?F) (Oral) Resp 22 Ht 182.9 cm (6') Wt 97 kg (213 lb 13.5 oz) SpO2 96% BMI 29 kg/m2 Neuro: Sedation Cardiovascular: Rate:normal sinus rhythm MAP: 78 mm Hg CVP: 15 mm Hg Pulmonary: Clear to auscultation and Diminished breath sounds, at the bases Ventilator: Intubated: SPCV; FiO2: 50%; PEEP: 10; PSV; HOB elevated 40 degrees: Yes; Oral care with chlorhexidine: Yes; Was sedation turned off? No: Why? Neuro status Recent Labs 10/18/17 0907 10/18/17 0524 10/18/17 0339 PH 7.40 7.39 7.40 PCO2 37 38 35 PO2 135* 125* 184* HCO3 22 22 21* O2HB 97 97 98 LACT 1.7 1.6 1.6 CXR Findings: Atelectasis Bilateral and CXR personally viewed and interpreted by ICU staff Physician Gastrointestinal: Abdominal: Soft, Non-tender and Bowel sounds yes Recent Labs 10/18/17 0100 10/17/17 0128 10/16/17 0120 TPROT 5.8* 5.7* 5.8* ALB 2.7* 3.0* 3.1* ALKPHOS 85 78 61 TBILI 7.5* 8.3* 8.9* AST 81* 111* 81* ALT 88* 105* 85* Heme: Recent Labs 10/18/17 0100 10/17/17 0128 10/16/17 0120 WBC 22.53* 17.21* 15.74* HB 9.0* 9.2* 9.2* HCT 29.3* 30.8* 29.7* PLT 293 252 219 Endocrine: Renal: Stable Intake/Output Summary (Last 24 hours) at 10/18/17 0659 Last data filed at 10/18/17 0630 Gross per 24 hour Intake 4938 ml Output 6330 ml Net -1392 ml Recent Labs 10/18/17 0519 10/18/17 0100 10/17/17 2124 10/17/17 0128 10/16/17 0120 NA 160* 161* 158* < > 163* < > 161* K -- 4.6 -- -- 4.2 -- 4.4 CHLOR -- 128* -- -- 131* -- 127* CO2 -- 23 -- -- 23 -- 25 BUN -- 54* -- -- 59* -- 64* CREAT -- 1.16 -- -- 1.26* -- 1.34* GLUC -- 138* -- -- 128* -- 147* < > = values in this interval not displayed. Recent Labs 10/18/17 01010/17/17 0128 10/16/17 0120 CA 7.8* 8.3* 8.2* Recent Labs 10/17/17 0913 P 2.6* Drug Blood Levels: Recent Labs 10/17/17 1136 VANCORA 6.0 I have discussed the case and the plan and management of the patient's care with the primary surgical team and consulting services, the bedside nurse and the respiratory therapist. SIGNATURE: Ariane Tovar MD DATE of SERVICE: 10/18/2017 TIME of SERVICE: 9:43 AM I gave my full attention and provided critical care time for 32 minutes, exclusive of separately billable procedures and treating other patients. I examined the patient and directed decision making. This was necessary to treat or prevent imminent deterioration of the following condition(s) Respiratory failure and Central nervous system failure or compromise. S/p Arch replacement complicated by Right MCA CVA requiring decompression craniotomy during the weekend EEG monitoring, no seizures so far vent dependent, S/p trach will try PSV hypotension on levo and juana will wean for MAP > 80 hypernatremia stable will monitor acute blood loss anemia stable?will monitor high Bili, trending down nutrition tolerating TF Ariane Tovar MD 10/18/2017 10:06 AM GASA + ALL Collected: 10/18/2017 Status: F Source: [place] FOR 9:07 AM [facility] USE ONLY REPOSITORY TYPE CODE TESTS RESULT OUT OF REFERENCE UNITS RANGE LAB PH 7.35-7.45 pH 7.40 LAB PCO2 34-46 mm Hg pCO2 37 LAB PO2 85-95 mm Hg pO2 High 135 LAB BE mmol/L Base Excess NEG 2 LAB HCO3 22-26 mmol/L Bicarbonate 22 LAB CO2CT 22.0-28.0 mmol/L CO2 Content 23 LAB O2HB 95-98 % Oxyhemoglobin, Art. 97 LAB COHB 0-5.0 % Carboxyhemoglobin,A 0.8 rt LAB MHGB 0.4-1.5 % Methemoglobin 0.8 LAB TEMP C Temperature, Body 37.0 LAB PHTC 7.35-7.45 pH, Temp Corrected 7.40 LAB PCO2T 34-46 mm Hg pCO2, Temp Correct 37 LAB PO2T mm Hg pO2, Temp Corrected 135 LAB NAB 135-146 mmol/L Sodium,Whole Bld High 158 LAB KWB 3.5-5.0 mmol/L Potassium, Whole Bld 4.2 LAB HGBB 13.0-17.0 g/dL Low Hemoglobin,Total,AC 9.1 L LAB HCTB 39.0-51.0 % Hematocrit, ACL Low 28 LAB IC 1.08-1.30 mmol/L Calcium, Ion, WB 1.26 LAB GLB 60-105 mg/dL Glucose,Whole Bld High 142 LAB LACT 0.5-2.2 mmol/L Lactate 1.7 Performed By: #### ALLBG #### [facility] [address] [address] COMP METABOLIC PANEL Collected: 10/18/2017 Status: F Source: [place] 9:04 AM [facility] REPOSITORY TYPE CODE TESTS RESULT OUT OF REFERENCE UNITS RANGE LAB TP 6.3-8.0 g/dL Low Protein, Total 5.4 LAB ALB 3.9-4.9 g/dL Low Albumin 2.6 LAB CA 8.5-10.2 mg/dL Low Calcium, Total 7.7 LAB TBIL 0.2-1.3 mg/dL Bilirubin, High Total 7.3 LAB ALKP 36-108 U/L Alkaline High Phosphatase 109 LAB AST 14-40 U/L AST High 136 LAB GLU 74-99 mg/dL Glucose High 139 Result Comment: The [place] Diabetes [employer] (ADA) provides guidance for cutoff values for fasting glucose and random glucose. The ADA defines fasting as no caloric intake for at least 8 hours. Fas ting plasma glucose results between 100 to 125 mg/dL indicate increased risk for diabetes (prediabetes). Fasting plasma glucose results greater than or equal to 126 mg/dL meet the criteria for diagnosis of diabetes. In the absence of unequivocal hyperglycemia, results should be confirmed by repeat testing. In a patient with classic symptoms of hyperglycemia or hyperglycemic crisis, random plasma glucose results greater than or equal to 200 mg/dL meet the criteria for diagnosis of diabetes. Reference: Standards of Medical Care in Diabetes 2016, [place] [employer]. Diabetes Care. 2016.39(Suppl 1). LAB BUN 9-24 mg/dL BUN High 52 LAB CRET 0.73-1.22 mg/dL Creatinine 1.07 LAB NA 136-144 mmol/L Sodium High 162 Result Comment: Called to and read back by: Miles Cox 10/18/17 1016 [place] LAB K 3.7-5.1 mmol/L Potassium 4.3 LAB CL 97-105 mmol/L Chloride High 130 LAB CO2 22-30 mmol/L CO2 22 LAB AGAP 9-18 mmol/L Anion Gap 10 LAB ALT 10-54 U/L ALT High 94 LAB GFRAA eGFR- Amer. >60 LAB GFRNAA . eGFR-All Other Races >60 Result Comment: eGFR (Estimated GFR) Units of measure: mL/min/1.73 meters squared eGFR is derived from the reexpressed MDRD Study equation using the following parameters: serum creatinine, age, gender and race. The creatinine assay has been calibrated to be traceable to IDMS. An eGFR <60 mL/min/1.73m2 for >3 months is consistent with chronic kidney disease. Refer to KDOQI guidelines for clinical interpretation. In patients with unstable renal function, e.g. those with acute kidney injury, the eGFR may not accurately reflect actual GFR. Performed By: #### CMP #### [facility] [address] [place], [place] [address] CONSULT PROG Observed: 10/18/2017 Status: COMPLETED Source: [place] 7:56 AM [facility] REPOSITORY HNO ID: [id number] Author: Yanick (Res) Kindzelski Service: Thoracic Surgery Author Type: Resident Type: Consult Progress Note Filed: 10/18/2017 7:57 AM Note Text: THORACIC SURGERY BRIEF PROGRESS NOTE Patient now POD 1 from tracheostomy. Resting comfortably. On exam trach site c/d/i with no hematoma. Oxygenating and ventilating appropriately. Trach care per RT Sutures can be removed POD 7 Please call with questions. Yanick Garcia MD Thoracic Consult Pager: [phone] October 18, 2017 7:57 AM CONSULT PROG Observed: 10/18/2017 Status: COMPLETED Source: [place] 7:38 AM [facility] REPOSITORY HNO ID: [id number] Author: Freedom Benton Service: Infectious Disease Author Type: Physician Type: Consult Progress Note Filed: 10/18/2017 1:02 PM Note Text: INFECTIOUS DISEASE CONSULT SERVICE PROGRESS NOTE Date: October 18, 2017 Patient Name: Jose Gustafson examined and assessed at bedside Interval Events: wbc up to 22K MEDICATIONS Medications reviewed. Current antibiotics include: vancomycin and zoysn EXAMINATION: Vital signs: BP 152/83 Pulse 80 Temp 36.9 ?C (98.4 ?F) (Oral) Resp 24 Ht 182.9 cm (6') Wt 97 kg (213 lb 13.5 oz) SpO2 97% BMI 29 kg/m2 supine intubated via tracheostomy sternal wound stable abd quiet craniotomy surtures clean no rash LABORATORY DATA: Lab reviewed MICROBIOLOGY DATA: Specimen #: [id number] Submitting Physician: ARPIT MCKENZIE M.D. 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 See comment. ? micro blood cx 10/17 NGTD no SA carriage in nares 10/14 tissue negative cx including afb BAL 10/15 NGT D blood cx 10/17 NGTD ? imaging preop CTA intramural type dissection (blood within lumen and blood in right chest and around pericardium) ? CXR today chest tubes median sternotomy aortic stent in place ? CT brain pre craniomtomy reviewd hemmorhage on right ? ? ? Impression/Recommendations ?? ? 52 y/o man 10 days s/p (10/07/17) total Arch replacement. 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 C/b mild hypotension requiring continued pressors and bleeding s/p multiple blood products in OR with delayed chest closure (10/14) and right cerebral hemmorhage requiring urgent craniotomy for decompression (presenting with left hemiparesis) with leukocytosis (17K) . No fevers and no steroids. Possible infection (wounds clean; lines look ok) vs aspiration (CXR no gross infiltratres). Non infectious causes include ROVING HAULER hemorrhage and dissection Has been on vancomcyin and ciprofloxacin since surgery ? 1. continue with with zoysn (empiric) and vancomcyin 2 will followup cultures Explained to patient's in detail and questions answered. ? Signature: Freedom Benton MD Pager: [phone] Date of Service: October 18, 2017 GASA + ALL Collected: 10/18/2017 Status: F Source: [place] FOR 5:24 AM [facility] USE ONLY REPOSITORY TYPE CODE TESTS RESULT OUT OF REFERENCE UNITS RANGE LAB PH 7.35-7.45 pH 7.39 LAB PCO2 34-46 mm Hg pCO2 38 LAB PO2 85-95 mm Hg pO2 High 125 LAB BE mmol/L Base Excess NEG 2 LAB HCO3 22-26 mmol/L Bicarbonate 22 LAB CO2CT 22.0-28.0 mmol/L CO2 Content 23 LAB O2HB 95-98 % Oxyhemoglobin, Art. 97 LAB COHB 0-5.0 % Carboxyhemoglobin,A 1.0 rt LAB MHGB 0.4-1.5 % Methemoglobin 0.7 LAB TEMP C Temperature, Body 37.0 LAB PHTC 7.35-7.45 pH, Temp Corrected 7.39 LAB PCO2T 34-46 mm Hg pCO2, Temp Correct 38 LAB PO2T mm Hg pO2, Temp Corrected 125 LAB NAB 135-146 mmol/L Sodium,Whole Bld High 159 LAB KWB 3.5-5.0 mmol/L Potassium, Whole Bld 3.8 LAB HGBB 13.0-17.0 g/dL Low Hemoglobin,Total,AC 8.9 L LAB HCTB 39.0-51.0 % Hematocrit, ACL Low 28 LAB IC 1.08-1.30 mmol/L Calcium, Ion, WB 1.26 LAB GLB 60-105 mg/dL Glucose,Whole Bld High 132 LAB LACT 0.5-2.2 mmol/L Lactate 1.6 Performed By: #### ALL #### [facility] [address] [place], [place] [address] SODIUM Collected: 10/18/2017 Status: F Source: [place] 5:19 AM [facility] REPOSITORY TYPE CODE TESTS RESULT OUT OF REFERENCE UNITS RANGE LAB NA 136-144 mmol/L High Sodium 160 Performed By: #### NA #### [facility] [address] [place], [place] [address] XR CHEST 1V FRONTAL Observed: 10/18/2017 Status: F Source: [facility] 4:59 AM [facility] REPOSITORY * * *Final Report* * * DATE OF EXAM: Oct 18 2017 4:59AM JIX [id number] - XR CHEST 1V FRONTAL PORT / PROCEDURE REASON: Postoperative state * * * * Physician Interpretation * * * * CHEST RADIOGRAPH (PORTABLE SINGLE VIEW AP) Exam Date/Time: 10/18/2017 4:59 AM Indications: Postoperative state M: XCP_3 Comparison: 1 day earlier RESULTS: See Impression. IMPRESSION: Lines, Tubes, and Devices: Stable support lines and tubes. Lungs and Pleura: Scattered lung opacities and small effusions are not significantly changed. rounded lucency/focus of air at the left hemidiaphragm may represent a basilar bulla, loculated pneumothorax, or possibly subdiaphragmatic focus of air, unchanged from prior. Cardiomediastinal silhouette: Stable cardiac silhouette. Silver Wrapper: AMY Transcribe Date/Time: Oct 18 2017 7:46A Dictated by : CIRILO MATUTE MD This examination was interpreted and the report reviewed and electronically signed by: CIRILO MATUTE MD on Oct 18 2017 7:49AM EST [id number] GASA + ALL Collected: 10/18/2017 Status: F Source: [place] FOR 3:39 AM [facility] RADIANCE USE ONLY REPOSITORY TYPE CODE TESTS RESULT OUT OF REFERENCE UNITS RANGE LAB PH 7.35-7.45 pH 7.40 LAB PCO2 34-46 mm Hg pCO2 35 LAB PO2 85-95 mm Hg pO2 High 184 LAB BE mmol/L Base Excess NEG 3 LAB HCO3 22-26 mmol/L Bicarbonate Low 21 LAB CO2CT 22.0-28.0 mmol/L CO2 Content 22 LAB O2HB 95-98 % Oxyhemoglobin, Art. 98 LAB COHB 0-5.0 % Carboxyhemoglobin,A 1.2 rt LAB MHGB 0.4-1.5 % Methemoglobin 0.8 LAB TEMP C Temperature, Body 37.0 LAB PHTC 7.35-7.45 pH, Temp Corrected 7.40 LAB PCO2T 34-46 mm Hg pCO2, Temp Correct 35 LAB PO2T mm Hg pO2, Temp Corrected 184 LAB NAB 135-146 mmol/L Sodium,Whole Bld High 158 LAB KWB 3.5-5.0 mmol/L Potassium, Whole Bld 4.1 LAB HGBB 13.0-17.0 g/dL Low Hemoglobin,Total,AC 9.4 L LAB HCTB 39.0-51.0 % Hematocrit, ACL Low 29 LAB IC 1.08-1.30 mmol/L Calcium, Ion, WB 1.25 LAB GLB 60-105 mg/dL Glucose,Whole Bld High 135 LAB LACT 0.5-2.2 mmol/L Lactate 1.6 Performed By: #### ALLBG #### [facility] [address] [place], [place] [address] GASA + ALL Collected: 10/18/2017 Status: F Source: [place] FOR 1:42 AM [facility] RADIANCE USE ONLY REPOSITORY TYPE CODE TESTS RESULT OUT OF REFERENCE UNITS RANGE LAB PH 7.35-7.45 pH Low 7.31 LAB PCO2 34-46 mm Hg pCO2 45 LAB PO2 85-95 mm Hg pO2 High 127 LAB BE mmol/L Base Excess NEG 4 LAB HCO3 22-26 mmol/L Bicarbonate 22 LAB CO2CT 22.0-28.0 mmol/L CO2 Content 23 LAB O2HB 95-98 % Oxyhemoglobin, Art. 97 LAB COHB 0-5.0 % Carboxyhemoglobin,A 1.3 rt LAB MHGB 0.4-1.5 % Methemoglobin 0.8 LAB TEMP C Temperature, Body 37.0 LAB PHTC 7.35-7.45 pH, Temp Low Corrected 7.31 LAB PCO2T 34-46 mm Hg pCO2, Temp Correct 45 LAB PO2T mm Hg pO2, Temp Corrected 127 LAB NAB 135-146 mmol/L Sodium,Whole Bld High 158 LAB KWB 3.5-5.0 mmol/L Potassium, Whole Bld 4.5 LAB HGBB 13.0-17.0 g/dL Low Hemoglobin,Total,AC 9.5 L LAB HCTB 39.0-51.0 % Hematocrit, ACL Low 30 LAB IC 1.08-1.30 mmol/L Calcium, Ion, WB 1.25 LAB GLB 60-105 mg/dL Glucose,Whole Bld High 135 LAB LACT 0.5-2.2 mmol/L Lactate 1.3 Performed By: #### ALLBG #### [facility] [address] [place], [place] [address] CBC Collected: 10/18/2017 Status: F Source: [place] 1:00 [facility] REPOSITORY TYPE CODE TESTS RESULT OUT OF REFERENCE UNITS RANGE LAB WBC 3.70-11.00 k/uL WBC High 22.53 LAB RBC 4.20-6.00 m/uL Low RBC 3.01 LAB HGB 13.0-17.0 g/dL Low Hemoglobin 9.0 LAB HCT 39.0-51.0 % Low Hematocrit 29.3 LAB MCV 80.0-100.0 fL MCV 97.3 LAB MCH 26.0-34.0 pG MCH 29.9 LAB MCHC 30.5-36.0 g/dL MCHC 30.7 LAB RDWCV 11.5-15.0 % RDW-CV High 16.8 LAB PLTCT 150-400 k/uL Platelet Count 293 LAB MPV 9.0-12.7 fL MPV 11.1 LAB ABSNUC <0.01 k/uL Absolute High nRBC 0.01 Performed By: #### CBC, CMP #### [facility] [address] [place], [place] [address] COMP METABOLIC PANEL Collected: 10/18/2017 Status: F Source: [place] 1:00 [facility] REPOSITORY TYPE CODE TESTS RESULT OUT OF REFERENCE UNITS RANGE LAB TP 6.3-8.0 g/dL Low Protein, Total 5.8 LAB ALB 3.9-4.9 g/dL Low Albumin 2.7 LAB CA 8.5-10.2 mg/dL Low Calcium, Total 7.8 LAB TBIL 0.2-1.3 mg/dL Bilirubin, High Total 7.5 LAB ALKP 36-108 U/L Alkaline Phosphatase 85 LAB AST 14-40 U/L AST High 81 LAB GLU 74-99 mg/dL Glucose High 138 Result Comment: The [place] [employer] (ADA) provides guidance for cutoff values for fasting glucose and random glucose. The ADA defines fasting as no caloric intake for at least 8 hours. Fas ting plasma glucose results between 100 to 125 mg/dL indicate increased risk for diabetes (prediabetes). Fasting plasma glucose results greater than or equal to 126 mg/dL meet the criteria for diagnosis of diabetes. In the absence of unequivocal hyperglycemia, results should be confirmed by repeat testing. In a patient with classic symptoms of hyperglycemia or hyperglycemic crisis, random plasma glucose results greater than or equal to 200 mg/dL meet the criteria for diagnosis of diabetes. Reference: Standards of Medical Care in Diabetes 2016, [place] [employer] Association. Diabetes Care. 2016.39(Suppl 1). LAB BUN 9-24 mg/dL BUN High 54 LAB CRET 0.73-1.22 mg/dL Creatinine 1.16 LAB NA 136-144 mmol/L Sodium High 161 Result Comment: Called to and read back by: Meghann Luna J64 CV ICU 10/18/17 Alexandro3 Maria Luisa Mireles LAB K 3.7-5.1 mmol/L Potassium 4.6 LAB CL 97-105 mmol/L Chloride High 128 LAB CO2 22-30 mmol/L CO2 23 LAB AGAP 9-18 mmol/L Anion Gap 10 LAB ALT 10-54 U/L ALT High 88 LAB GFRAA eGFR- Amer. >60 LAB GFRNAA . eGFR-All Other Races >60 Result Comment: eGFR (Estimated GFR) Units of measure: mL/min/1.73 meters squared eGFR is derived from the reexpressed MDRD Study equation using the following parameters: serum creatinine, age, gender and race. The creatinine assay has been calibrated to be traceable to IDMS. An eGFR <60 mL/min/1.73m2 for >3 months is consistent with chronic kidney disease. Refer to KDOQI guidelines for clinical interpretation. In patients with unstable renal function, e.g. those with acute kidney injury, the eGFR may not accurately reflect actual GFR. Performed By: #### CBC, CMP #### [facility] [address], [place] [address] TYPE AND SCREEN Collected: 10/18/2017 Status: F Source: [place] [address]:00 AM [facility] REPOSITORY TYPE CODE TESTS RESULT OUT OF REFERENCE UNITS RANGE LAB %ABR A ABO/RH(D) POSITIVE LAB % Antibody NEG Screen Performed By: #### TSCR #### [facility] [address] [place], [place] [address] GASA + ALL Collected: 10/17/2017 Status: F Source: [place] FOR 11:43 PM [facility] RADIANCE USE ONLY REPOSITORY TYPE CODE TESTS RESULT OUT OF REFERENCE UNITS RANGE LAB PH 7.35-7.45 pH Low 7.32 LAB PCO2 34-46 mm Hg pCO2 High 47 LAB PO2 85-95 mm Hg pO2 High 154 LAB BE mmol/L Base Excess NEG 3 LAB HCO3 22-26 mmol/L Bicarbonate 23 LAB CO2CT 22.0-28.0 mmol/L CO2 Content 25 LAB O2HB 95-98 % Oxyhemoglobin, Art. 97 LAB COHB 0-5.0 % Carboxyhemoglobin,A 1.0 rt LAB MHGB 0.4-1.5 % Methemoglobin 0.8 LAB TEMP C Temperature, Body 37.0 LAB PHTC 7.35-7.45 pH, Temp Low Corrected 7.32 LAB PCO2T 34-46 mm Hg pCO2, Temp High Correct 47 LAB PO2T mm Hg pO2, Temp Corrected 154 LAB NAB 135-146 mmol/L Sodium,Whole Bld High 159 LAB KWB 3.5-5.0 mmol/L Potassium, Whole Bld 4.4 LAB HGBB 13.0-17.0 g/dL Low Hemoglobin,Total,AC 9.2 L LAB HCTB 39.0-51.0 % Hematocrit, ACL Low 29 LAB IC 1.08-1.30 mmol/L Calcium, Ion, WB 1.26 LAB GLB 60-105 mg/dL Glucose,Whole Bld High 123 LAB LACT 0.5-2.2 mmol/L Lactate 1.3 Performed By: #### ALLBG #### [facility] [address] [place], [place] [address] GASA + ALL Collected: 10/17/2017 Status: F Source: [place] FOR 9:30 PM [facility] RADIANCE USE ONLY REPOSITORY TYPE CODE TESTS RESULT OUT OF REFERENCE UNITS RANGE LAB PH 7.35-7.45 pH Low 7.33 LAB PCO2 34-46 mm Hg pCO2 44 LAB PO2 85-95 mm Hg pO2 High 160 LAB BE mmol/L Base Excess NEG 3 LAB HCO3 22-26 mmol/L Bicarbonate 23 LAB CO2CT 22.0-28.0 mmol/L CO2 Content 24 LAB O2HB 95-98 % Oxyhemoglobin, Art. 97 LAB COHB 0-5.0 % Carboxyhemoglobin,A 1.1 rt LAB MHGB 0.4-1.5 % Methemoglobin 1.1 LAB TEMP C Temperature, Body 37.0 LAB PHTC 7.35-7.45 pH, Temp Low Corrected 7.33 LAB PCO2T 34-46 mm Hg pCO2, Temp Correct 44 LAB PO2T mm Hg pO2, Temp Corrected 160 LAB NAB 135-146 mmol/L Sodium,Whole Bld High 159 LAB KWB 3.5-5.0 mmol/L Potassium, Whole Bld 4.5 LAB HGBB 13.0-17.0 g/dL Low Hemoglobin,Total,AC 9.4 L LAB HCTB 39.0-51.0 % Hematocrit, ACL Low 29 LAB IC 1.08-1.30 mmol/L Calcium, Ion, WB 1.25 LAB GLB 60-105 mg/dL Glucose,Whole Bld High 123 LAB LACT 0.5-2.2 mmol/L Lactate 1.5 Performed By: #### ALLBG #### [facility] [address] [place], [place] [address] SODIUM Collected: 10/17/2017 Status: F Source: [place] 9:24 PM [facility] REPOSITORY TYPE CODE TESTS RESULT OUT OF REFERENCE UNITS RANGE LAB NA 136-144 mmol/L High Sodium 158 Performed By: #### NA #### [facility] [address] [place], [place] [address] ANES POST Observed: 10/17/2017 Status: COMPLETED Source: [place] 8:13 PM [facility] REPOSITORY HNO ID: [id number] Author: Jax Raza Service: Anesthesiology Author Type: Anesthesiologist Type: Anesthesia PostOp Filed: 10/17/2017 8:14 PM Note Text: POST ANESTHESIA EVALUATION NOTE SERVICE DATE: 10/17/2017 SERVICE TIME: 10/17/2017 : 1964 Vitals: 10/17/17 0950 10/17/17 1310 10/17/17 1710 10/17/171929 Temp: (S) 38.3 ?C (100.9 ?F) 36.9 ?C (98.4 ?F) 36.3 ?C (97.3 ?F) 36.3 ?C (97.3 ?F) 10/17/17 1850 10/17/17 19110/17/17 19310/17/171949 Arterial BP 1: 145/67 130/64 113/56 116/59 BP: 10/17/17 1850 10/17/17 1910 10/17/17 1930 10/17/171949 Pulse: 63 66 68 68 10/17/17 1118 10/17/17 1740 10/17/17 1800 10/17/171817 Resp: 26 22 23 28 10/17/17 1850 10/17/17 19110/17/17192910/17/171949 SpO2: 100% 98% 99% 99% Validated Vital Signs: Yes POST ANES STATUS: No apparent anesthetic complications. The patient is appropriately hydrated with stable respiratory and cardiovascular status. Patient has safe and adequate airway control, s/p tracheostomy. The patient is mechanically ventilated and remains under the care of CVICU personnel. Further assessment by Anesthesia Service: None Other Remarks: SIGNATURE: Jax Raza MD PATIENT NAME: Jose Gustafson DATE: October 17, 2017 TIME: 8:13 PM PAGER/CONTACT #: [phone] GASA + ALL Collected: 10/17/2017 Status: F Source: [place] FOR 7:45 PM [facility] USE ONLY REPOSITORY TYPE CODE TESTS RESULT OUT OF REFERENCE UNITS RANGE LAB PH 7.35-7.45 pH Low 7.26 LAB PCO2 34-46 mm Hg pCO2 High 53 LAB PO2 85-95 mm Hg pO2 High 176 LAB BE mmol/L Base Excess NEG 4 LAB HCO3 22-26 mmol/L Bicarbonate 23 LAB CO2CT 22.0-28.0 mmol/L CO2 Content 25 LAB O2HB 95-98 % Oxyhemoglobin, Art. 98 LAB COHB 0-5.0 % Carboxyhemoglobin,A 1.0 rt LAB MHGB 0.4-1.5 % Methemoglobin 0.5 LAB TEMP C Temperature, Body 37.0 LAB PHTC 7.35-7.45 pH, Temp Low Corrected 7.26 LAB PCO2T 34-46 mm Hg pCO2, Temp High Correct 53 LAB PO2T mm Hg pO2, Temp Corrected 176 LAB NAB 135-146 mmol/L Sodium,Whole Bld High 159 LAB KWB 3.5-5.0 mmol/L Potassium, Whole Bld 4.6 LAB HGBB 13.0-17.0 g/dL Low Hemoglobin,Total,AC 9.5 L LAB HCTB 39.0-51.0 % Hematocrit, ACL Low 29 LAB IC 1.08-1.30 mmol/L Calcium, Ion, WB 1.25 LAB GLB 60-105 mg/dL Glucose,Whole Bld High 106 LAB LACT 0.5-2.2 mmol/L Lactate 1.2 Performed By: #### ALLBG #### [facility] [address] [place], [place] [address] PROGRESS Observed: 10/17/2017 Status: COMPLETED Source: [place] 7:40 PM [facility] REPOSITORY HNO ID: [id number] Author: Rocael Dobbs Service: Critical Care Author Type: Physician Type: Progress Notes Filed: 10/17/2017 8:23 PM Note Text: Neuro ICU Progress Note Per records, 52 M admitted for chest pain and was found to have Type A aortic dissection on 10/07. ? Briefly, he underwent Total Arch replacement on 10/07 and since then has had 2 more surgeries for chest exploration and hematoma evac (10/08) and chest washout (10/10). Course complicated by hypotension requiring continued pressors and bleeding s/p multiple blood products, pressors. Chest still open. ? He was reportedly still moving all extremities at 5pm on 10/10. 2CLOT called on 10/11 at ~ 1AM for Lt sided weakness. ?CTH with hypodensity in the Lt MCA territory. He was referred to neuro ICU for management of malignant cerebral edema and NSG for hemicraniectomy. Started on HTS since then ? 10/12: Rt DHC by NSG Sodium uptrending despite stopping HTS. Exam: Intubated, sedated on propofol E2VTM5 (Lt arm) Pupils 3mm BRTL + corneals + weak gag A/P Malignant Cerebral Edema Rt MCA stroke 2/2 aortic dissection Hypernatremia - close neuro check - check Na q4 hours, slow correction by increasing FWF (currently at 150cc q4) to 200cc q4 hrs - rest of management per stroke Discussed with Dr. Dilia Ayala MD NICU fellow 2NICU Agree with above plan as stated per Dr Ayala Samer MD Dilia XR ABDOMEN 1V SUPINE Observed: 10/17/2017 Status: F Source: [place] 7:11 PM [facility] REPOSITORY * * *Final Report* * * DATE OF EXAM: Oct 17 2017 7:11PM JIX [id number] - XR ABDOMEN 1V SUPINE / PROCEDURE REASON: Surgery follow-up * * * * Physician Interpretation * * * * ABDOMEN SINGLE VIEW CLINICAL INFORMATION: Surgery follow-up. TECHNIQUE: A single view of the abdomen was obtained. Number of images: 1 COMPARISON: 10/14/2017 RESULT: Field of view: Portions of the left abdomen pelvis and right flank are excluded from the [id number]. Lines and tubes: Feeding tube is in place with tip in the gastric antrum. Several chest tube/mediastinal drains as well as retained epicardial pacing leads remain in place. Bowel: Interval decreased distention of small bowel bowel loops. Small bowel is no longer dilated. Gas is present throughout normal caliber colon. IMPRESSION: RESOLUTION OF ILEUS. Silver Wrapper: AMY Transcribe Date/Time: Oct 17 2017 8:27P Dictated by : SHIRLEY ARTEAGA MD This examination was interpreted and the report reviewed and electronically signed by: SHIRLEY ARTEAGA MD on Oct 17 2017 8:32PM EST [id number] GASA + ALL Collected: 10/17/2017 Status: F Source: [place] FOR 5:36 PM [facility]IANCE USE ONLY REPOSITORY TYPE CODE TESTS RESULT OUT OF REFERENCE UNITS RANGE LAB PH 7.35-7.45 pH Low 7.22 LAB PCO2 34-46 mm Hg pCO2 High 58 LAB PO2 85-95 mm Hg pO2 High 146 LAB BE mmol/L Base Excess NEG 5 LAB HCO3 22-26 mmol/L Bicarbonate 23 LAB CO2CT 22.0-28.0 mmol/L CO2 Content 25 LAB O2HB 95-98 % Oxyhemoglobin, Art. 97 LAB COHB 0-5.0 % Carboxyhemoglobin,A 1.0 rt LAB MHGB 0.4-1.5 % Methemoglobin 0.5 LAB TEMP C Temperature, Body 37.0 LAB PHTC 7.35-7.45 pH, Temp Low Corrected 7.22 LAB PCO2T 34-46 mm Hg pCO2, Temp High Correct 58 LAB PO2T mm Hg pO2, Temp Corrected 146 LAB NAB 135-146 mmol/L Sodium,Whole Bld High 159 LAB KWB 3.5-5.0 mmol/L Potassium, Whole Bld 4.3 LAB HGBB 13.0-17.0 g/dL Low Hemoglobin,Total,AC 9.6 L LAB HCTB 39.0-51.0 % Hematocrit, ACL Low 30 LAB IC 1.08-1.30 mmol/L Calcium, Ion, WB 1.29 LAB GLB 60-105 mg/dL Glucose,Whole Bld High 109 LAB LACT 0.5-2.2 mmol/L Lactate 1.2 Performed By: #### ALLBG #### [facility] [address] [place], [place] [address] XR CHEST 1V FRONTAL Observed: 10/17/2017 Status: F Source: [facility] 5:20 PM [facility] REPOSITORY * * *Final Report* * * DATE OF EXAM: Oct 17 2017 5:20PM JIX [id number] - XR CHEST 1V FRONTAL PORT / PROCEDURE REASON: Surgery follow-up * * * * Physician Interpretation * * * * EXAMINATION: CHEST RADIOGRAPH (PORTABLE SINGLE VIEW AP) Exam Date/Time: 10/17/2017 5:20 PM Indication: Surgery follow-up MQ: XCP_4 Comparison: Same day RESULT: See impression. IMPRESSION: Lines, tubes, and devices: Removal of ET tube. Tracheostomy tube placed with tip satisfactory. Right IJ catheter has been removed. No other change. Lungs and pleura: Unchanged Cardiomediastinal silhouette: Stable cardiomediastinal silhouette. Other: Silver Wrapper: AMY Transcribe Date/Time: Oct 17 2017 7:45P Dictated by : ALIYA VELAZQUEZ MD This examination was interpreted and the report reviewed and electronically signed by: ALIYA VELAZQUEZ MD on Oct 17 2017 7:46PM EST [id number] Collected: 10/17/2017 Status: F Source: [place] 5:19 PM [facility] REPOSITORY TYPE CODE TESTS RESULT OUT OF REFERENCE UNITS RANGE LAB NA 136-144 mmol/L High Sodium 160 Performed By: #### NA #### [facility] [address] [place], [place] [address] BRIEF OP NOT Observed: 10/17/2017 Status: COMPLETED Source: [place] 4:55 PM [facility] REPOSITORY HNO ID: [id number] Author: Erasmo Mccloud MD Service: Thoracic Surgery Author Type: Resident Type: Brief Op Note Filed: 10/17/2017 4:57 PM Note Text: BRIEF OP NOTE LOG ID: [id number] Surgery/Procedure Date: 10/17/2017 Incision/Procedure Start Time: 4:39 PM Incision Close/Procedure End Time: 4:53 PM Surgeon(s)/Proceduralist(s) and Vise Hand(s): Surgeon(s) and Role: * Liana Casillas - Primary * Yanick Garcia - Resident - Assisting Procedure(s): 1. Open tracheostomy Anesthesia: General Findings: 1. Successfully placed #7.5 Bivona with 7 cc in cuff Estimated Blood Loss: 5 mls Specimens: * No specimens in log * Complications: None Pre-Op/Pre-Procedure Diagnosis: Ventilator dependent respiratory failure Post-Op/Post-Procedure Diagnosis: Same SIGNATURE: Erasmo Mccloud MD PATIENT NAME: Jose Gustafson DATE: October 17, 2017 TIME: 4:55 PM PAGER/CONTACT #: [phone] CNDS Observed: 10/17/2017 Status: COMPLETED Source: [place] 4:14 PM [facility] REPOSITORY HNO ID: [id number] Author: Arpit Mckenzie Service: Critical Care Author Type: Physician Type: Discharge Summaries Filed: 11/04/2017 2:50 PM Note Text: Department of Cardiothoracic Surgery Discharge Summary (Template ID [id number]) Patient Name: Jose Gustafson Patient Admission Date: 10/07/2017 Discharge Date: 11/01/2017 Attending Physician: Arpit Mckenzie Primary Service: Hvi Cts Team C Admission Diagnosis: Aortic Rupture Discharge Diagnosis: Aortic Rupture [facility] Surgeon: Arpit Mckenzie MD Reason for Hospitalization: Aortic Rupture Operations during Hospitalization: 10/08/2017 Total arch replacement with FET under [facility] 10/08/2017 Chest exploration/Evacuation of hematoma / Open chest with wound vac 10/10/2017 Chest opened with wound VAC placement (Attempt closure, but fail due to desaturation) 10/12/2017 Right decompressive hemicraniectomy for R MCA stroke and malignant cerebral edema 10/14/2017 Chest exploration and closure 10/17/2017 Tracheostomy Hospital Course: * What were the active issue: Problem Dissection of Thoracic Aorta (Hcc) Chronic Respiratory Failure (Hcc) Essential Hypertension Acute Ischemic Right Mca Stroke (Hcc) Seizure (Hcc) Acquired Skull Defect Severe Protein-Calorie Malnutrition (Hcc) Leukocytosis Aortic Dissection (Hcc) (Resolved) Hypernatremia (Resolved) Elevated Lfts (Resolved) * Hospital Course complicated by: OR course complicated by coagulopathy requiring massive resuscitation. Arrived to CVICU with open chest. Hypotension and cardiac insufficiency required inotropic support and vasopressors, now resolved. Returned to OR 10/08 for exploration and large amount of clots. 10/10/17 Chest closure attempt failed due to desaturation.Chest closed 10/14/17. Post-op course further complicated by large right MCA infarct with associated mass effect requiring hemicraniectomy per Neurosurgery on 10/12. Respiratory failure requiring trach on 10/17. Keppra initiated empirically started but changed to vimpat due subclinical seizures and elevated LFTs. Mental status improving. Continue Ventilator weaning as tolerated * Surgical Pathology: FINAL DIAGNOSIS: Aorta, partial excision - Elastic-type artery with mild increase of mucopolysaccharide material in the media. COMMENT: Microscopic examination shows an elastic-type artery in which a Movat stain to characterize the connective tissue components of the vessel wall demonstrates mild increase of mucopolysaccharide material interspersed between the elastic lamellar units throughout the media. There is evidence of laminar necrosis with absent smooth muscle cells, but preserved elastic lamellar units in the middle third of the media. The adventitia is normal. The vasa vasorum are normal. * Pain Control: Pain under control. See discharge insturctions * Wound Care / Surgical Incision Treatment: Wash wound daily with soap and water, pat dry. Leave open to air. Do not apply any lotions, powders or ointments for 6 weeks after surgery. Do not soak in a tub, pool or hot tub until your incisions are completely healed. Inspect incision(s) daily for signs of infection: increased pain, redness, drainage, swelling. If you notice these call your surgeon's office or see your local provider. * Specific medication changes: See med list * Activity after discharge: PT/OT per facility protocol. Problem List: Patient Active Hospital Problem List: Dissection of thoracic aorta (HCC) (10/07/2017) Chronic respiratory failure (HCC) (10/13/2017) Essential hypertension (07/28/2014) Acute ischemic right MCA stroke (HCC) (10/11/2017) Seizure (HCC) (10/26/2017) Severe protein-calorie malnutrition (HCC) (10/13/2017) Acquired skull defect (10/18/2017) Leukocytosis (10/17/2017) Consults: Infectious Disease, Neurology, Neurosurgery, Thoracic Surgery Procedures Performed and Major Radiology: 10/11/2017 - CT Brain 10/11/2017 - Transcranial US 10/11/2017 - Carotid US 10/11/2017 - CT Brain 10/12/2017 - CT Brain 10/14/2017 - CT Brain 10/15/2017 - CT Brain 10/20/2017 - CT Brain 10/21/2017 - US Right Upper Quadrant Patient Condition at Discharge: Stable Disposition: LTAC Information Provided to the Patient: Patient given copy of After Visit Summary which included activity instructions, diet instructions, wound care instructions, medication instructions and follow up appointment Discharge Medications: Current Discharge Medication List START taking these medications acetaminophen (TYLENOL) 500-1,000 mg 500-1,000 mg by NASOGASTRIC route every 6 hours as needed. nystatin (MYCOSTATIN) 5 mL Take 5 mL by mouth four times daily. ipratropium-albuterol (DUONEB) 3 mL Inhale 3 mL as instructed every 4 hours as needed. metoprolol tartrate (short acting) (LOPRESSOR) 75 mg Take 75 mg by mouth every 8 hours. amLODIPine (NORVASC) 10 mg Take 10 mg by mouth once daily. Chlorhexidine Gluconate (PERIDEX) 15 mL Take 15 mL by mouth every 6 hours. budesonide (PULMICORT) 1 mg Use 1 mg via nebulizer twice daily. heparin 5,000 Units Inject 5,000 Units subcutaneously every 12 hours. dextrose 50% in water 25 mL Inject 25 mL intravenously as needed. senna-docusate (SENNA-S) 1 tablet Take 1 tablet by mouth twice daily. bisacodyl (DULCOLAX) 10 mg 10 mg by RECTAL route once daily as needed. furosemide (LASIX) 20 mg Inject 20 mg intravenously once daily. therapeutic multivitamin (THERA VITAMIN) 1 tablet Take 1 tablet by mouth once daily. aspirin 81 mg Take 81 mg by mouth once daily. potassium chloride (KLOR-CON) 40-120 mEq 40-120 mEq by ORAL/FEEDING TUBE route as needed (low potassium). zinc oxide-cod liver oil (DESITIN 40%) 1 application Apply 1 application to affected area twice daily. pantoprazole (PROTONIX) 20 mg 20 mg by ORAL/FEEDING TUBE route DAILY (6 AM). lacosamide (VIMPAT) 200 mg Take 200 mg by mouth every 12 hours. Associated Diagnoses:Seizure (HCC) STOP taking these medications cetirizine-pseudoephedrine (ZyrTEC-D) 1 tablet Comments: Reason for Stopping: fluticasone (FLONASE) [address] [place] Comments: Reason for Stopping: Lactobacillus acidophilus 1 capsule Comments: Reason for Stopping: fluticasone-vilanterol (BREO ELLIPTA) 1 Inhalation Comments: Reason for Stopping: lisinopril (ZESTRIL, PRINIVIL) 5 mg Comments: Reason for Stopping: Outpatient Management: * Are there important medication changes and/or outstanding issues that need to be addressed: None * What is the plan for follow up: follow-up in [address] Florence Sharif, flap closure will be in 2-3 months. Future Appointments Date Time Provider Department Center 11/04/2017 11:20 AM [id number] 11/28/2017 2:20 PM [id number] SHARIF 11/28/2017 2:20 PM [id number] ADAME [facility] Electronically SIGNED by Licensed Independent Practitioner: Ivanna Dunlap CNP CASE MANAGEM Observed: 10/17/2017 Status: COMPLETED Source: [place] 3:06 PM [facility] REPOSITORY HNO ID: [id number] Author: Anna (Rn) Harley Service: Care Management Author Type: Registered Nurse Type: Care Mgt Progress Note Filed: 10/17/2017 3:12 PM Note Text: CARE MANAGEMENT PROGRESS NOTE SERVICE DATE: 10/17/2017 SERVICE TIME: 3:08PM LOS: 10 days Needs Prior to Discharge: To Be Determined Per EMR; Remains intubated, sedated. TF resume, currently at goal.?New lines overnight. Sending blood cultures. Likely plans for trach. ?? Case Management will continue to follow patient for discharge needs/planning. SIGNATURE: Anna Souza RN PATIENT NAME: Jose Gustafson DATE: October 17, 2017 TIME: 3:06 PM PAGER/CONTACT #: [phone] CONSULT Observed: 10/17/2017 Status: COMPLETED Source: [place] 2:37 PM [facility] REPOSITORY HNO ID: [id number] Author: Freedom Benton Service: Infectious Disease Author Type: Physician Type: Consults Filed: 10/17/2017 6:00 PM Note Text: INFECTIOUS DISEASE NEW CONSULT NOTE SERVICE DATE: 10/17/2017 SERVICE TIME: Patient is sent at the request of Dr Mckenzie for my opinion regarding post op leukocytosis possible infecton. My final recommendations will be communicated back to the requesting physician by way of shared Medical Record examined sedated so history from and mom at bedside chart and images reviewed >45 minuts Freedom Benton MD Subjective CHIEF COMPLAINT: elevated wbc Jose Gustafson 52 year old male . 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 New type of pain . Went to ED and evaluation was negative and sent home. Within 24 hours pain worsened and eventually collapsed in front of . Taken back to ED and CT chest showed Type A dissection ? He was life flighted to [facility] and admitted Aortic dissection from mid arch to descending thoracic aorta. Hospital course as below: - 10/07/17 Total Arch replacement. 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 C/b mild hypotension requiring continued pressors and bleeding s/p multiple blood products in OR. Chest unable to be closed during surgery. - 10/08/17. Chest exploration w/ hematoma evacuation. - 10/10/17 Chest washout w/ wound vac. Chest still open. Pt remained on multiple pressors (epi, levo, phenyl) and intubated. ?2CLOT called after nursing noted patient to not be moving his LUE and LLE to command or stim. Pt was reportedly moving all ext 1/5 at 5pm on 10/10/17. ?.CTHead with large large right MCA infarct with associated mass effect. Repeat imaging with evolution of R MCA infarct with increased edema now s/p right decompressive hemicraniectomy per Neurosurgery on 10/12. Subsequently had chest closed on 10/14. Was less responsive past 24 hours and elevated wbc Had been on empiric vancomycin and ciprofloxacin since admission zosyn added today. I am asked to comment Per no one sick at home, no allegies ? PAST MEDICAL HISTORY Diagnosis Date - Acute kidney injury (HCC) 10/09/2017 - History of kidney stones - Hypertension - Stroke (cerebrum) ([facility]) 10/11/2017 - Unspecified asthma(493.90) PAST SURGICAL HISTORY Procedure Laterality Date - COLONOSCOP W/ OR W/O RUST SPEC 08/23/2014 Colonoscopy - LITHOTRIPSY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 correct procedure and the correct site during the audible time out. The time out was affirmed. The sign out discussion was completed. Procedure: Arterial Line Insertion Indication: Suspected or confirmed catheter infection Insertion Type: New stick Site: Left brachial artery Inserted By: CTA attending physician All personnel involved with the procedure used masks and sterile gloves. The area was prepped with chlorhexidine gluconate and draped with a sterile drape following the usual aseptic technique. Anesthesia was obtained with local infiltration of 1% lidocaine. The vessel was cannulated under direct ultrasound visualization with a 4.45 cm, 20 gauge catheter on the first attempt. A 33 cm straight-tipped spring wire was passed into the artery through the indwelling catheter and left in situ while the catheter was removed. A 12 cm, 20 gauge catheter was advanced over the guidewire and left in situ while the guidewire was removed. Pulsatile blood flow exited the catheter and an arterial waveform was noted on the monitor when the catheter was transduced. The catheter was secured in place with tape and a sterile, transparent, occlusive dressing was placed over the site. All catheters, needles and wires were accounted for and intact. The patient tolerated the procedure without apparent complications. Signature: Klaudia Garces MD Date of Procedure: 10/17/2017 Time of Procedure: 8:50 AM Performed by Kaykay Dominguez MD Observed: 10/17/2017 Status: F Source: [place] BLOOD CULTURE 8:45 AM [facility] REPOSITORY Culture Result - Cutibacterium (Propionibacterium) acnes Probable contaminant. Susceptibility testing will not be performed. Call lab within 72 hours to initiate workup if clinically indicated. --> ABNORMAL ALERT (NOTE) Positive result called to and read back by:Wendy Felix Main J64 10/22/2017 1512 Wendy Performed By: #### BLCUL #### [facility] [address] [place], [place] [address] PROCEDURE Observed: 10/17/2017 Status: COMPLETED Source: [place] 8:40 AM [facility] REPOSITORY HNO ID: [id number] Author: Klaudia Garces Service: Critical Care Author Type: Anesthesiologist Type: Procedures Filed: 10/17/2017 8:42 AM Note Text: [facility] Procedure Note Name: Jose Gustafson Informed Consent The patient was incapable of consenting to the procedure due to incapacity, and the legal authorization representative was unable to be contacted in a timely manner due to clinical urgency. The nature of the urgency was sepsis. [place] Protocol / Safety Checklist The sign in communication was completed. Time Out Date of Time Out: 10/17/2017 Time of Time Out: 8:41 AM The procedural team confirmed the correct patient, the correct procedure and the correct site during the audible time out. The time out was affirmed. The sign out discussion was completed. Procedure: Central Venous Line Insertion Indication: Venous access Insertion Type: New stick Site: Left subclavian vein Inserted By: CTA attending physician [facility] Central Line Insertion checklist, attached to the Central Line-Associated Bloodstream Infection Prevention Policy, was utilized during this procedure. All personnel involved with the procedure used caps, masks with eye elizabeth, sterile gowns and sterile gloves. The area was prepped with chlorhexidine gluconate and draped with a full-body sterile drape following the usual aseptic technique. Anesthesia was obtained with local infiltration of 1% lidocaine. The vessel was cannulated under direct ultrasound visualization with a 6.35 cm, 18 gauge single lumen catheter on the first attempt. A J-tipped spring wire was passed into the vein through the indwelling catheter and left in situ while the catheter was removed. A small skin incision was made and the tract was dilated with a semi-rigid tissue dilator. A 20 cm quad-lumen, 8.5 Fr, non-tunneled, pressure injectable, antimicrobial catheter was advanced over the guidewire and left in situ while the guidewire was removed. All ports were capped with sterile site caps, venous blood was aspirated from all ports and all ports were flushed with sterile saline solution. An antimicrobial-impregnated protective disk was placed around the catheter, the catheter was secured in place at 20 cm with sterile sutures and a sterile, transparent, occlusive dressing was placed over the site. A portable CXR was ordered. All catheters, needles and wires were accounted for and intact. The patient tolerated the procedure without apparent complications. Performed by: Kaykay Dominguez MD Signature: Klaudia Garces MD Date of Procedure: 10/17/2017 Time of Procedure: 8:42 AM Observed: 10/17/2017 Status: F Source: [place] BLOOD CULTURE 8:00 AM [facility] REPOSITORY Culture Result - No growth 5 days Performed By: #### BLCUL #### [facility] [address] [place] [id number] PROGRESS Observed: 10/17/2017 Status: COMPLETED Source: [place] 7:45 AM [facility] REPOSITORY HNO ID: [id number] Author: Ariane Tovar Service: Critical Care Author Type: Anesthesiologist Type: Progress Notes Filed: 10/17/2017 8:28 AM Note Text: [facility] Progress Note Name: Jose Gustafson COORDINATION OF CARE NOTE: Indication for Surgery: Spontaneous Rupture of Aorta LVEF: Normal RVF: Normal Important/Relevant PMH/PSH: HTN, asthma, hx kidney stones Preoperative Hospital Course (narrative): 52 yo M with PMH HTN, Asthma, and hx of kidney stones who is transferred to [facility] for 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 Hypotension, cardiac insufficiency on norepinephrine, vasopressin, and epoprostenol. Returned to OR 10/08 for exploration and large amount of clots were removed but no active bleeding. Chest closure attempted 10/10 but failed 2/2 desaturation. Early AM 10/11 2 CLOT for left sided weakness. CTH with large large right MCA infarct with associated mass effect. Repeat imaging with evolution of R MCA infarct with increased edema now s/p right decompressive hemicraniectomy per Neurosurgery on 10/12. Issues to communicate at signout: OPEN CHEST - plan for closure 10/14 New RT sided MCA CVA s/p right decompressive hemicraniectomy: Continue 3% for cerebral edema, maintain Na 145-155; keppra 750 mg bid x 2 weeks per neuro: okay to resume ASA 10/13; SQH 10/04 - on hold until after chest closure OTHER PROBLEMS I MANAGED DURING THIS ENCOUNTER: Problem Postoperative Hypotension A/P - Continue current regimen of norepinephrine and vaso but keep MAP > 80 mm Hg for neuro protection 10/17/2017 on levo will wean for MAP > 80 Acute Ischemic Right Mca Stroke (Hcc) New L sided weakness 10/11; CTH with large R MCA infarct with associated mass effect. Repeat imaging with evolution of R MCA infarct with increased edema 10/12/2017 - Right decompressive hemicraniectomy for R MCA stroke and malignant cerebral edema A/p - continue hypertonic saline for goal Na 145-155 - resume ASA after chest closure; - Permissive hypertension as able; goal map >80 - keppra 750 mg bid x 2 weeks 10/14/2017 S/p decompressing craniotomy last saturday10/15/2017 followed simple command 10/16/[address] yesterday no changes 10/17/2017 EEG since yesterday neuro following Moderate Protein-Calorie Malnutrition (Hcc) A/p - corpak attempted x 2, unsuccessful. Will consult procedure team for assistance after chest closure. 10/14/2017 will try again today and consult GI if not successful 10/17/2017 tolerating TF Leukocytosis on vanco and cipro, will change lines today SUBJECTIVE INTERVAL HISTORY: A fib/ RVR PERTINENT REVIEW OF SYSTEMS: See Assessment and Plan. Remaining ROS reviewed and negative. PHYSICAL EXAM AND PERTINENT DATA: Infusions: Fentanyl Insulin Norepinephrine Propofol Vital Signs: BP 152/83 Pulse (!) 134 Temp 37.2 ?C (99 ?F) (Oral) Resp (P) 27 Ht 182.9 cm (6') Wt 99.8 kg (220 lb 0.3 oz) SpO2 95% BMI 29.84 kg/m2 Neuro: Sedation Cardiovascular: Rate:atrial fibrillation / atrial flutter converted to SR with DCC MAP: 66 mm Hg CVP: 16 mm Hg Pulmonary: Breath sounds equal and Diminished breath sounds, at the bases Ventilator: Intubated: SPCV; FiO2: 40%; PEEP: 10; Not ready for weaning; HOB elevated 40 degrees: Yes; Oral care with chlorhexidine: Yes; Was sedation turned off? No: Why? neuro status Recent Labs 10/17/17 0450 10/17/17 0126 10/16/17 2320 PH 7.35 7.35 7.38 PCO2 40 42 40 PO2 110* 82* 122* HCO3 22 22 23 O2HB 97 94* 96 LACT 1.4 1.4 1.4 CXR Findings: Atelectasis Bilateral and CXR personally viewed and interpreted by ICU staff Physician Gastrointestinal: Abdominal: Soft, Non-tender and Bowel sounds yes Recent Labs 10/17/17 0128 10/16/17 0120 10/15/17 0005 TPROT 5.7* 5.8* 5.7* ALB 3.0* 3.1* 3.1* ALKPHOS 78 61 52 TBILI 8.3* 8.9* 8.0* AST 111* 81* 59* ALT 105* 85* 96* Heme: Recent Labs 10/17/17 0128 10/16/17 0120 10/15/17 0005 WBC 17.21* 15.74* 12.21* HB 9.2* 9.2* 8.8* HCT 30.8* 29.7* 27.6* PLT 252 219 172 Endocrine: Renal: Stable Intake/Output Summary (Last 24 hours) at 10/17/17 0659 Last data filed at 10/17/17 0630 Gross per 24 hour Intake 3614 ml Output 6290 ml Net -2676 ml Recent Labs 10/17/17 0128 10/16/17199910/16/17 1605 10/16/17 0120 10/15/17 0005 NA 163* 162* 162* < > 161* < > 161* K 4.2 -- -- -- 4.4 -- 4.2 CHLOR 131* -- -- -- 127* -- 123* CO2 23 -- -- -- 25 -- 25 BUN 59* -- -- -- 64* -- 59* CREAT 1.26* -- -- -- 1.34* -- 1.72* GLUC 128* -- -- -- 147* -- 137* < > = values in this interval not displayed. Recent Labs 10/17/1712710/16/17 0120 10/15/17 0005 CA 8.3* 8.2* 8.0* Drug Blood Levels: I have discussed the case and the plan and management of the patient's care with the primary surgical team and consulting services, the bedside nurse and the respiratory therapist. SIGNATURE: Ariane Tovar MD DATE of SERVICE: 10/17/2017 TIME of SERVICE: 7:45 AM I gave my full attention and provided critical care time for 32 minutes, exclusive of separately billable procedures and treating other patients. I examined the patient and directed decision making. This was necessary to treat or prevent imminent deterioration of the following condition(s) Respiratory failure, Circulatory failure and Central nervous system failure or compromise. S/p Arch replacement complicated by Right MCA CVA requiring decompression craniotomy during the weekend EEG monitoring, Neuro follwoing vent dependent, unable to wean due to neuro status hypotension on levo will wean for MAP > 80 A fib last night cardioverted to SR hypernatremia increased water flushes, will increase the frequency acute blood loss anemia stable will monitor high Bili, plateau, will continue to monitor nutrition tolerating TF Ariane Tovar MD 10/17/2017 8:18 AM NUTRITION Observed: 10/17/2017 Status: COMPLETED Source: [place] 6:27 AM [facility] REPOSITORY HNO ID: [id number] Author: Jeremy Alicea) Len Service: NST-Nutrition Support Team Author Type: Registered Dietitian Type: Nutrition Filed: 10/17/2017 1:18 PM Note Text: NUTRITION THERAPY REASSESSMENT SERVICE DATE: 10/17/2017 SERVICE TIME: 9:35 RECOMMENDED MALNUTRITION DIAGNOSIS: MODERATE PROTEIN-CALORIE MALNUTRITION In the context of Acute Illness or Injury based on: Insufficient Energy Intake: <75% for >7 days Subcutaneous Fat Loss: Mild Loss Muscle Loss Mild Loss NUTRITION CARE PLAN: Intervention: 1. Continue Impact Peptide @ 60 cc/hr (2160 kcal,135 g pro) 2. Recommend MVI w/ minerals Monitor and Evaluation: Goal: Meet >75% of estimated needs Discharge Nutrition Recommendations: To be determined Per HPI: 52 yo M pmhx 52 yo M with PMH HTN, Asthma, and hx of kidney stones who is transferred to [facility] for 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 10/08/2017??Total arch replacement with FET under DHCA 10/08/2017 Chest exploration / Evacuation of hematoma / Open chest with wound vac 10/10/2017 Chest opened with wound VAC placement (Attempt closure, but fail due to desaturation) 10/12/2017 Right decompressive hemicraniectomy for R MCA stroke and malignant cerebral edema 10/14/2017 Chest washout and closure ? Interval history: Remains intubated, sedated. TF resume, currently at goal. New lines overnight. Sending blood cultures. Likely plans for trach. ? Present Diet Order: Tube Feeds of Impact Peptide 1.5 @ 60 mL/hr + 150 mL flush 6x/day ? Enteral Access: NG Feeding Tube - Left Naris ? 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 Pt received 55% of needs yesterday. ? GI symptoms: unable to determine at this time ? Abdominal Exam: not assessed ? Is the patient having any pain that is interfering with oral/enteral intake? Unable to assess ANTHROPOMETRICS Height: 182.9 cm (6') Admission Weight: 85 kg (187 lb 6.3 oz) Current Weight: (bed scale is off) BMI 29.9 based on dry weight Weight hx: per epic, wt ~190s with minor fluctuations the last year. Admitted at 187#, 85 kg. Pt is now 220# (99.8 kg). IBW: 80.9 kg Dosing wt: 85 kg Estimated kilocalorie needs: 8776-4078 kilocalories determined by 20-25 kcal/kg Estimated protein needs: 110-144 grams determined by 1.3-1.7 g/kg Dosing weight NUTRITION FOCUSED PHYSICAL EXAM: Subcutaneous Fat Loss Orbital Mild Triceps Moderate Mid-axillary at the iliac crest Unable to determine at this time Muscle Loss Locations: Temporalis Mild Pectoralis Mild Deltoids No muscle loss Interosseous Unable to determine at this time Latissimus dorsi, trapezius Unable to determine at this time Quadriceps Moderate Gastrocnemius Mild Potential micronutrient deficiency revealed in: Unable to determine at this time Edema: No Ascites: No Assessment of Functional Status: Functional capacity is unrelated to nutrition status Temperature Max in 24 hours: Temp (24hrs), Av.4 ?C (99.3 ?F), Min:36.8 ?C (98.2 ?F), Max:38.4 ?C (101.1 ?F) BP 152/83 Pulse (!) 134 Temp 37.4 ?C (99.3 ?F) Resp 22 Ht 182.9 cm (6') Wt 99.8 kg (220 lb 0.3 oz) SpO2 95% BMI 29.84 kg/m2 Recent Labs 10/17/17 0128 GLUC 128* BUN 59* CREAT 1.26* NA 163* K 4.2 CHLOR 131* CO2 23 ALB 3.0* HB 9.2* HCT 30.8* WBC 17.21* Potential Signs of Inflammation: leukocytosis, hypoalbuminemia, hyperthermia, tachycardia, imaging studies and clinical condition (s/p multiple operations in past week, sepsis) Pertinent Meds: fentanyl, lasix, levo, protonix, senna, heparin, propofol ALLERGIES Allergen Reactions - Cats - Grass Pollen Itching Pressure Injury 10/08/17 1121 Lip - Lower (Active) [facility] Units Operating Room 10/10/2017 9:00 AM Stage Injury Mucous Membrane 10/16/2017 7:30 AM Number of days:8 MNT Billing Type: Re-assess/15 min 4 units SIGNATURE: Hilda Arce RN PATIENT NAME: Jose Gustafson DATE: October 17, 2017 TIME: 6:27 AM PAGER: [phone] NUTRITION THERAPY: TEACHING DIETITIAN NOTE OF PERSONAL INVOLVEMENT OF CARE. I have reviewed the progress note obtained and documented by the recruitment intern. I have discussed the case and management of the patient?s nutrition therapy with the recruitment intern. The following comments revise or confirm relevant curry components of the recruitment intern?s note. Jeremy Harrington, MS, RD, LD, [facility] Pager: [phone] GASA + ALL Collected: 10/17/2017 Status: F Source: [place] FOR 4:50 AM [facility] USE [facility] REPOSITORY TYPE CODE TESTS RESULT OUT OF REFERENCE UNITS RANGE LAB PH 7.35-7.45 pH 7.35 LAB PCO2 34-46 mm Hg pCO2 40 LAB PO2 85-95 mm Hg pO2 High 110 LAB BE mmol/L Base Excess NEG 3 LAB HCO3 22-26 mmol/L Bicarbonate 22 LAB CO2CT 22.0-28.0 mmol/L CO2 Content 23 LAB O2HB 95-98 % Oxyhemoglobin, Art. 97 LAB COHB 0-5.0 % Carboxyhemoglobin, 1.6 Art LAB MHGB 0.4-1.5 % Methemoglobin Low 0.0 LAB TEMP C Temperature, Body 37.0 LAB PHTC 7.35-7.45 pH, Temp Corrected 7.35 LAB PCO2T 34-46 mm Hg pCO2, Temp Correct 40 LAB PO2T mm Hg pO2, Temp Corrected 110 LAB NAB 135-146 mmol/L Sodium,Whole High Bld 163 LAB KWB 3.5-5.0 mmol/L Potassium, Whole Bld 4.0 LAB HGBB 13.0-17.0 g/dL Low Hemoglobin,Total,A 9.6 CL LAB HCTB 39.0-51.0 % Hematocrit, Low ACL 30 LAB IC 1.08-1.30 mmol/L Calcium, Ion, WB 1.29 LAB GLB 60-105 mg/dL Glucose,Whole High Bld 154 LAB LACT 0.5-2.2 mmol/L Lactate 1.4 LAB ABGCOM Blood Gas Comm, Art Urgent value Result Comment: NA LAB ACBWHO Notified Whom, Art Called to and read back by Result Comment: ROXANNE MartinezZulema RADHA LAB ACBDTE [id number] Notify Date, Art LAB ACBTME [id number] Notify Time, Art Performed By: #### ALLBG #### [facility] [address] [place], [place] [address] XR CHEST 1V FRONTAL Observed: 10/17/2017 Status: F Source: [facility] 4:29 AM [facility] REPOSITORY * * *Final Report* * * DATE OF EXAM: Oct 17 2017 4:29AM JIX [id number] - XR CHEST 1V FRONTAL PORT / PROCEDURE REASON: Postoperative state * * * * Physician Interpretation * * * * EXAMINATION: CHEST RADIOGRAPH (PORTABLE SINGLE VIEW AP) Exam Date/Time: 10/17/2017 4:29 AM Indication: Postoperative state MQ: XCP_4 Comparison: 1 day prior RESULT: See impression. IMPRESSION: Lines, tubes, and devices: The tip of the ET tube is 7 cm proximal to the lexx. Feeding tube courses below the diaphragm. Tip of right IJ introducer sheath is near the confluence of the brachiocephalic veins. Mediastinal drainage tubes and bilateral thoracostomy tubes remain in place. Lungs and pleura: There are small bilateral pleural effusions with associated bibasilar atelectasis. A thin-walled, circumscribed lucency overlies the left lung base; differential considerations include a loculated pneumothorax versus an emphysematous bulla. There is symmetric biapical pleural thickening, likely postinflammatory in nature. Cardiomediastinal silhouette: Stable cardiomediastinal silhouette. Status post median sternotomy and endovascular stent grafting of the thoracic aorta. The heart size is within normal limits. Silver Wrapper: AMY Transcribe Date/Time: Oct 17 2017 9:33A Dictated by : EMELI AGUILERA MD This examination was interpreted and the report reviewed and electronically signed by: EMELI AGUILERA MD on Oct 17 2017 9:37AM EST [id number] CBC Collected: 10/17/2017 Status: F Source: [place] 1:28 AM [facility] REPOSITORY TYPE CODE TESTS RESULT OUT OF REFERENCE UNITS RANGE LAB WBC 3.70-11.00 k/uL WBC High 17.21 LAB RBC 4.20-6.00 m/uL Low RBC 3.16 LAB HGB 13.0-17.0 g/dL Low Hemoglobin 9.2 LAB HCT 39.0-51.0 % Low Hematocrit 30.8 LAB MCV 80.0-100.0 fL MCV 97.5 LAB MCH 26.0-34.0 pG MCH 29.1 LAB MCHC 30.5-36.0 g/dL Low MCHC 29.9 LAB RDWCV 11.5-15.0 % RDW-CV High 16.6 LAB PLTCT 150-400 k/uL Platelet Count 252 LAB MPV 9.0-12.7 fL MPV 11.0 LAB ABSNUC <0.01 k/uL Absolute nRBC <0.01 Performed By: #### CBC, CMP #### [facility] [address], [place] [address] COMP METABOLIC PANEL Collected: 10/17/2017 Status: F Source: [place] 1:28 AM [facility] REPOSITORY TYPE CODE TESTS RESULT OUT OF REFERENCE UNITS RANGE LAB TP 6.3-8.0 g/dL Low Protein, Total 5.7 LAB ALB 3.9-4.9 g/dL Low Albumin 3.0 LAB CA 8.5-10.2 mg/dL Low Calcium, Total 8.3 LAB TBIL 0.2-1.3 mg/dL Bilirubin, High Total 8.3 LAB ALKP 36-108 U/L Alkaline Phosphatase 78 LAB AST 14-40 U/L AST High 111 LAB GLU 74-99 mg/dL Glucose High 128 Result Comment: The [place] Diabetes Association (ADA) provides guidance for cutoff values for fasting glucose and random glucose. The ADA defines fasting as no caloric intake for at least 8 hours. Fas ting plasma glucose results between 100 to 125 mg/dL indicate increased risk for diabetes (prediabetes). Fasting plasma glucose results greater than or equal to 126 mg/dL meet the criteria for diagnosis of diabetes. In the absence of unequivocal hyperglycemia, results should be confirmed by repeat testing. In a patient with classic symptoms of hyperglycemia or hyperglycemic crisis, random plasma glucose results greater than or equal to 200 mg/dL meet the criteria for diagnosis of diabetes. Reference: Standards of Medical Care in Diabetes 2016, [place] [employer] Association. Diabetes Care. 2016.39(Suppl 1). LAB BUN 9-24 mg/dL BUN High 59 LAB CRET 0.73-1.22 mg/dL Creatinine High 1.26 LAB NA 136-144 mmol/L Sodium High 163 Result Comment: Called to and read back by: Vanda J64 10/17/17 0226 [place] LAB K 3.7-5.1 mmol/L Potassium 4.2 LAB CL 97-105 mmol/L Chloride High 131 LAB CO2 22-30 mmol/L CO2 23 LAB AGAP 9-18 mmol/L Anion Gap 9 LAB ALT 10-54 U/L ALT High 105 LAB GFRAA eGFR- Amer. >60 LAB GFRNAA . eGFR-All Other Races 60 Result Comment: eGFR (Estimated GFR) Units of measure: mL/min/1.73 meters squared eGFR is derived from the reexpressed MDRD Study equation using the following parameters: serum creatinine, age, gender and race. The creatinine assay has been calibrated to be traceable to IDMS. An eGFR <60 mL/min/1.73m2 for >3 months is consistent with chronic kidney disease. Refer to KDOQI guidelines for clinical interpretation. In patients with unstable renal function, e.g. those with acute kidney injury, the eGFR may not accurately reflect actual GFR. Performed By: #### CBC, CMP #### [facility] [address] [place], [place] [address] GASA + ALL Collected: 10/17/2017 Status: F Source: [place] FOR 1:26 AM [facility] USE ONLY REPOSITORY TYPE CODE TESTS RESULT OUT OF REFERENCE UNITS RANGE LAB PH 7.35-7.45 pH 7.35 LAB PCO2 34-46 mm Hg pCO2 42 LAB PO2 85-95 mm Hg pO2 Low 82 LAB BE mmol/L Base Excess NEG 3 LAB HCO3 22-26 mmol/L Bicarbonate 22 LAB CO2CT 22.0-28.0 mmol/L CO2 Content 24 LAB O2HB 95-98 % Oxyhemoglobin, Low Art. 94 LAB COHB 0-5.0 % Carboxyhemoglobin, 1.2 Art LAB MHGB 0.4-1.5 % Methemoglobin 1.0 LAB TEMP C Temperature, Body 37.0 LAB PHTC 7.35-7.45 pH, Temp Corrected 7.35 LAB PCO2T 34-46 mm Hg pCO2, Temp Correct 42 LAB PO2T mm Hg pO2, Temp Corrected 82 LAB NAB 135-146 mmol/L Sodium,Whole High Bld 162 LAB KWB 3.5-5.0 mmol/L Potassium, Whole Bld 4.1 LAB HGBB 13.0-17.0 g/dL Low Hemoglobin,Total,A 9.5 CL LAB HCTB 39.0-51.0 % Hematocrit, Low ACL 29 LAB IC 1.08-1.30 mmol/L Calcium, Ion, WB 1.28 LAB GLB 60-105 mg/dL Glucose,Whole High Bld 125 LAB LACT 0.5-2.2 mmol/L Lactate 1.4 LAB ABGCOM Blood Gas Comm, Art Urgent value Result Comment: NA LAB ACBWHO Notified Whom, Art Called to and read back by Result Comment: EMILY GARCIA LAB ACBDTE [id number] Notify Date, Art LAB ACBTME [id number] Notify Time, Art Performed By: #### ALLBG #### [facility] [address] [place], [place] [address] GASA + ALL Collected: 10/16/2017 Status: F Source: [place] FOR 11:20 PM [facility] [place] RADIANCE USE ONLY REPOSITORY TYPE CODE TESTS RESULT OUT OF REFERENCE UNITS RANGE LAB PH 7.35-7.45 pH 7.38 LAB PCO2 34-46 mm Hg pCO2 40 LAB PO2 85-95 mm Hg pO2 High 122 LAB BE mmol/L Base Excess NEG 2 LAB HCO3 22-26 mmol/L Bicarbonate 23 LAB CO2CT 22.0-28.0 mmol/L CO2 Content 24 LAB O2HB 95-98 % Oxyhemoglobin, Art. 96 LAB COHB 0-5.0 % Carboxyhemoglobin, 0.9 Art LAB MHGB 0.4-1.5 % Methemoglobin 1.3 LAB TEMP C Temperature, Body 37.0 LAB PHTC 7.35-7.45 pH, Temp Corrected 7.38 LAB PCO2T 34-46 mm Hg pCO2, Temp Correct 40 LAB PO2T mm Hg pO2, Temp Corrected 122 LAB NAB 135-146 mmol/L Sodium,Whole High Bld 162 LAB KWB 3.5-5.0 mmol/L Potassium, Whole Bld 4.0 LAB HGBB 13.0-17.0 g/dL Low Hemoglobin,Total,A 9.6 CL LAB HCTB 39.0-51.0 % Hematocrit, Low ACL 30 LAB IC 1.08-1.30 mmol/L Calcium, Ion, WB 1.28 LAB GLB 60-105 mg/dL Glucose,Whole High Bld 117 LAB LACT 0.5-2.2 mmol/L Lactate 1.4 LAB ABGCOM Blood Gas Comm, Art Urgent value Result Comment: NA LAB ACBWHO Notified Whom, Art Called to and read back by Result Comment: BHAVIN GARCIA LAB ACBDTE [id number] Notify Date, Art LAB ACBTME [id number] Notify Time, Art Performed By: #### ALLBG #### [facility] [address] [place], [place] [address] GASA + ALL Collected: 10/16/2017 Status: F Source: [place] FOR 8:19 PM [facility] USE ONLY REPOSITORY TYPE CODE TESTS RESULT OUT OF REFERENCE UNITS RANGE LAB PH 7.35-7.45 pH 7.41 LAB PCO2 34-46 mm Hg pCO2 37 LAB PO2 85-95 mm Hg pO2 High 102 LAB BE mmol/L Base Excess NEG 1 LAB HCO3 22-26 mmol/L Bicarbonate 23 LAB CO2CT 22.0-28.0 mmol/L CO2 Content 24 LAB O2HB 95-98 % Oxyhemoglobin, Art. 96 LAB COHB 0-5.0 % Carboxyhemoglobin, 1.2 Art LAB MHGB 0.4-1.5 % Methemoglobin 1.2 LAB TEMP C Temperature, Body 37.0 LAB PHTC 7.35-7.45 pH, Temp Corrected 7.41 LAB PCO2T 34-46 mm Hg pCO2, Temp Correct 37 LAB PO2T mm Hg pO2, Temp Corrected 102 LAB NAB 135-146 mmol/L Sodium,Whole High Bld 162 LAB KWB 3.5-5.0 mmol/L Potassium, Whole Bld 3.8 LAB HGBB 13.0-17.0 g/dL Low Hemoglobin,Total,A 9.2 CL LAB HCTB 39.0-51.0 % Hematocrit, Low ACL 29 LAB IC 1.08-1.30 mmol/L Calcium, Ion, WB 1.24 LAB GLB 60-105 mg/dL Glucose,Whole High Bld 132 LAB LACT 0.5-2.2 mmol/L Lactate 1.5 LAB ABGCOM Blood Gas Comm, Art Urgent value Result Comment: NA LAB ACBWHO Notified Whom, Art Called to and read back by Result Comment: ANDREA EMMANUEL LAB ACBDTE [id number] Notify Date, Art LAB ACBTME Notify Time, Art Performed By: #### ALLBG #### [facility] [address], [place] [id number] SODIUM Collected: 10/16/2017 Status: F Source: [place] 8:00 PM [facility] REPOSITORY TYPE CODE TESTS RESULT OUT OF REFERENCE UNITS RANGE LAB NA 136-144 mmol/L High Sodium 162 Result Comment: Called to and read back by: Katie J64 10/16/175 S.Hankiris Performed By: #### NA #### [facility] [address], [place] [address] GASA + ALL Collected: 10/16/2017 Status: F Source: [facility] 4:09 PM [facility] RADIANCE USE ONLY REPOSITORY TYPE CODE TESTS RESULT OUT OF REFERENCE UNITS RANGE LAB PH 7.35-7.45 pH 7.37 LAB PCO2 34-46 mm Hg pCO2 41 LAB PO2 85-95 mm Hg pO2 High 110 LAB BE mmol/L Base Excess NEG 2 LAB HCO3 22-26 mmol/L Bicarbonate 23 LAB CO2CT 22.0-28.0 mmol/L CO2 Content 24 LAB O2HB 95-98 % Oxyhemoglobin, Art. 96 LAB COHB 0-5.0 % Carboxyhemoglobin, 1.5 Art LAB MHGB 0.4-1.5 % Methemoglobin 0.9 LAB TEMP C Temperature, Body 37.0 LAB PHTC 7.35-7.45 pH, Temp Corrected 7.37 LAB PCO2T 34-46 mm Hg pCO2, Temp Correct 41 LAB PO2T mm Hg pO2, Temp Corrected 110 LAB NAB 135-146 mmol/L Sodium,Whole High Bld 161 LAB KWB 3.5-5.0 mmol/L Potassium, Whole Bld 4.0 LAB HGBB 13.0-17.0 g/dL Low Hemoglobin,Total,A 9.2 CL LAB HCTB 39.0-51.0 % Hematocrit, Low ACL 29 LAB IC 1.08-1.30 mmol/L Calcium, Ion, WB 1.29 LAB GLB 60-105 mg/dL Glucose,Whole High Bld 137 LAB LACT 0.5-2.2 mmol/L Lactate 1.5 LAB ABGCOM Blood Gas Comm, Art Urgent value Result Comment: NA LAB ACBWHO Notified Whom, Art Called to and read back by Result Comment: KRISTI EMMANUEL LAB ACBDTE [id number] Notify Date, Art LAB ACBTME [id number] Notify Time, Art Performed By: #### ALLBG #### [facility] [address] [place] [address] SODIUM Collected: 10/16/2017 Status: F Source: [place] 4:05 PM [facility] REPOSITORY TYPE CODE TESTS RESULT OUT OF REFERENCE UNITS RANGE LAB NA 136-144 mmol/L High Sodium 162 Result Comment: Called to and read back by: Porter Martinez64 10/16/17 1655 N Sai Performed By: #### NA #### [facility] [address] [place] [address] GASA + ALL Collected: 10/16/2017 Status: F Source: [place] FOR 2:47 PM [facility] RAD[facility] USE ONLY REPOSITORY TYPE CODE TESTS RESULT OUT OF REFERENCE UNITS RANGE LAB PH 7.35-7.45 pH 7.36 LAB PCO2 34-46 mm Hg pCO2 41 LAB PO2 85-95 mm Hg pO2 High 109 LAB BE mmol/L Base Excess NEG 2 LAB HCO3 22-26 mmol/L Bicarbonate 22 LAB CO2CT 22.0-28.0 mmol/L CO2 Content 24 LAB O2HB 95-98 % Oxyhemoglobin, Art. 96 LAB COHB 0-5.0 % Carboxyhemoglobin,A 1.3 rt LAB MHGB 0.4-1.5 % Methemoglobin 0.8 LAB TEMP C Temperature, Body 37.0 LAB PHTC 7.35-7.45 pH, Temp Corrected 7.36 LAB PCO2T 34-46 mm Hg pCO2, Temp Correct 41 LAB PO2T mm Hg pO2, Temp Corrected 109 LAB NAB 135-146 mmol/L Sodium,Whole Bld High 160 LAB KWB 3.5-5.0 mmol/L Potassium, Whole Bld 4.0 LAB HGBB 13.0-17.0 g/dL Low Hemoglobin,Total,AC 9.5 L LAB HCTB 39.0-51.0 % Hematocrit, ACL Low 30 LAB IC 1.08-1.30 mmol/L Calcium, Ion, WB 1.29 LAB GLB 60-105 mg/dL Glucose,Whole Bld High 135 LAB LACT 0.5-2.2 mmol/L Lactate 1.6 Performed By: #### ALLBG #### [facility] [address] [place], [place] [address] CONSULT PROG Observed: 10/16/2017 Status: COMPLETED Source: [place] 2:09 PM [facility] REPOSITORY HNO ID: [id number] Author: Renee Olivo (Pharmacist) Service: Pharmacy Author Type: Pharmacist Type: Consult Progress Note Filed: 10/16/2017 2:10 PM Note Text: PHARMACY VANCOMYCIN DOSING NOTE Patient Name: Jose Gustafson Admission Date: 10/07/2017 Date of Consult: 10/16/2017 Time of Consult: 14:10 PM Indication: Source Unknown; empiric Goal Range: 10-20 mcg/mL RECOMMENDATIONS/PLAN: Pharmacy consulted for vancomycin dosing for Jose Gustafson, a 52 year old, male who is being treated with vancomycin for empiric coverage. 1. Patient is currently ordered Vancomycin 1.25 g IV q24h. Today is day 9 of therapy. 2. The most recent vancomycin level was 10.9 mcg/mL drawn at 0828 on 10/11. This is a 36 hour level on the 4 day of therapy. 3. The present dose of vancomycin is the recommended dosage for this patient at this time. Continue therapy as prescribed. 4. The next vancomycin level will be ordered for 10/17 unless clinically indicated sooner. (Pharmacy will order) We will follow patient renal function, vancomycin levels and doses with you during the course of therapy. Additional recommendations will appear in follow up notes. If you have any questions, please contact Renee Olivo, Pharmacist at pager [phone]. Age: [age] year old Allergies: ALLERGIES Allergen Reactions - Cats - Grass Pollen Itching Last 3 Encounter Wt Readings: Date: Wt: 10/07/2017 90.9 kg (200 lb 6.4 oz) 09/07/2017 84.6 kg (186 lb 6.4 oz) 08/24/2017 83.5 kg (184 lb) Last 1 Encounter Ht Readings: Date: Ht: 10/07/2017 182.9 cm (6') CrCl: 48.8 mL/min Temp (24hrs), Av.6 ?C (101.5 ?F), Min:38.4 ?C (101.1 ?F), Max:39 ?C (102.2 ?F) - Current Temp: 38.4 ?C (101.1 ?F) Labs BUN (mg/dL) Date Value 10/16/2017 64 (H) 10/15/2017 59 (H) 10/14/2017 45 (H) Creatinine (mg/dL) Date Value 10/16/2017 1.34 (H) 10/15/2017 1.72 (H) 10/14/2017 1.92 (H) WBC (k/uL) Date Value 10/16/2017 15.74 (H) 10/15/2017 12.21 (H) 10/14/2017 9.35 Vancomycin Levels: Vancomycin, result (ug/mL) Date Value 10/11/2017 10.9 10/09/2017 13.6 Lynda Pal (Metal Template Maker) Renee Olivo Pharmacist SODIUM Collected: 10/16/2017 Status: F Source: [place] 12:10 PM [facility] REPOSITORY TYPE CODE TESTS RESULT OUT OF REFERENCE UNITS RANGE LAB NA 136-144 mmol/L High Sodium 162 Result Comment: Called to and read back by: Porter Mercedes J64 10/16/17 Nerip Shayy GOLDEN Performed By: #### NA #### [facility] [address] [place], [place] [address] PROGRESS Observed: 10/16/2017 Status: COMPLETED Source: [place] 11:50 AM [facility] [place] REPOSITORY HNO ID: [id number] Author: Ariane Tovar Service: Critical Care Author Type: Anesthesiologist Type: Progress Notes Filed: 10/16/2017 2:16 PM Note Text: [facility] Progress Note Name: Jose Gustafson COORDINATION OF CARE NOTE: Indication for Surgery: Spontaneous Rupture of Aorta LVEF: Normal RVF: Normal Important/Relevant PMH/PSH: HTN, asthma, hx kidney stones Preoperative Hospital Course (narrative): 52 yo M with PMH HTN, Asthma, and hx of kidney stones who is transferred to [facility] for 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 Hypotension, cardiac insufficiency on norepinephrine, vasopressin, and epoprostenol. Returned to OR 10/08 for exploration and large amount of clots were removed but no active bleeding. Chest closure attempted 10/10 but failed 2/2 desaturation. Early AM 10/11 2 CLOT for left sided weakness. CTH with large large right MCA infarct with associated mass effect. Repeat imaging with evolution of R MCA infarct with increased edema now s/p right decompressive hemicraniectomy per Neurosurgery on 10/12. Issues to communicate at signout: OPEN CHEST - plan for closure 10/14 New RT sided MCA CVA s/p right decompressive hemicraniectomy: Continue 3% for cerebral edema, maintain Na 145-155; keppra 750 mg bid x 2 weeks per neuro: okay to resume ASA 10/13; SQH 10/04 - on hold until after chest closure OTHER PROBLEMS I MANAGED DURING THIS ENCOUNTER: Problem Acute Respiratory Insufficiency, Postoperative A/p - remains on full ventilatory support 2/ open chest, right hemicraniectomy. Remains hypoxic on increased fio2 AND peep. CXR with atelectasis and increased vascular markings. Remains on epoprostenol. Continue diuresis for volume control. 10/14/2017 will wean veletri after chest closure 10/15- unable to wean due to neuro status Acute Ischemic Right Mca Stroke (Hcc) New L sided weakness 10/11; CTH with large R MCA infarct with associated mass effect. Repeat imaging with evolution of R MCA infarct with increased edema 10/12/2017 - Right decompressive hemicraniectomy for R MCA stroke and malignant cerebral edema A/p - continue hypertonic saline for goal Na 145-155 - resume ASA after chest closure; - Permissive hypertension as able; goal map >80 - keppra 750 mg bid x 2 weeks 10/14/2017 S/p decompressing craniotomy last saturday10/15/2017 followed simple command 10/16/[address] yesterday no changes Acute Blood Loss Anemia Has required 13u pRBCs thus far A/p - continue to trend H/H; transfuse Hct > 30% 10/14- will monitor High Bilirubin will monitor SUBJECTIVE INTERVAL HISTORY: No acute events PERTINENT REVIEW OF SYSTEMS: See Assessment and Plan. Remaining ROS reviewed and negative. PHYSICAL EXAM AND PERTINENT DATA: Infusions: Fentanyl Insulin Norepinephrine Propofol Vital Signs: BP 152/83 Pulse 83 Temp 36.8 ?C (98.2 ?F) (Oral) Resp (!) 31 Ht 182.9 cm (6') Wt 99.8 kg (220 lb 0.3 oz) SpO2 94% BMI 29.84 kg/m2 Neuro: Sedation Cardiovascular: Rate:normal sinus rhythm MAP: 92 mm Hg CVP: 15 mm Hg Pulmonary: Breath sounds equal and Diminished breath sounds, at the bases Ventilator: Intubated: SPCV; FiO2: 405; PEEP: 10; Not ready for weaning; HOB elevated 40 degrees: Yes; Oral care with chlorhexidine: Yes; Was sedation turned off? No: Why? neuro status unchanged Recent Labs 10/16/17 1127 10/16/17 0809 10/16/17 0623 PH 7.40 7.39 7.40 PCO2 36 37 36 PO2 99* 117* 122* HCO3 22 22 22 O2HB 96 96 96 LACT 1.8 2.1 2.0 CXR Findings: Atelectasis Bilateral and CXR personally viewed and interpreted by ICU staff Physician Gastrointestinal: Abdominal: Soft, Non-tender and Bowel sounds yes Recent Labs 10/16/17 0120 10/15/17 0005 10/14/17 0230 TPROT 5.8* 5.7* 6.2* ALB 3.1* 3.1* 3.4* ALKPHOS 61 52 63 TBILI 8.9* 8.0* 6.5* AST 81* 59* 76* ALT 85* 96* 125* Heme: Recent Labs 10/16/17 0120 10/15/17 0005 10/14/17 0230 WBC 15.74* 12.21* 9.35 HB 9.2* 8.8* 9.2* HCT 29.7* 27.6* 29.0* PLT 219 172 145* Recent Labs 10/14/17 0230 PTSEC 13.0 INR 1.3 APTT 29.9 Endocrine: Renal: Stable Intake/Output Summary (Last 24 hours) at 10/16/17 0659 Last data filed at 10/16/17 0630 Gross per 24 hour Intake 3971 ml Output 5350 ml Net -1379 ml Recent Labs 10/16/17 0800 10/16/17 0120 10/15/17 2000 10/15/17 0005 10/14/17 1544 10/14/17 0230 NA 164* 161* 160* < > 161* < > -- < > 159* K -- 4.4 -- -- 4.2 -- -- -- 3.7 CHLOR -- 127* -- -- 123* -- -- -- 119* CO2 -- 25 -- -- 25 -- 28 < > 24 BUN -- 64* -- -- 59* -- -- -- 45* CREAT -- 1.34* -- -- 1.72* -- -- -- 1.92* GLUC -- 147* -- -- 137* -- -- -- 121* < > = values in this interval not displayed. Recent Labs 10/16/17 0120 10/15/17 0005 10/14/17 0230 CA 8.2* 8.0* 8.3* Drug Blood Levels: I have discussed the case and the plan and management of the patient's care with the primary surgical team and consulting services, the bedside nurse and the respiratory therapist. SIGNATURE: Ariane Tovar MD DATE of SERVICE: 10/16/2017 TIME of SERVICE: 11:51 AM I gave my full attention and provided critical care time for 32 minutes, exclusive of separately billable procedures and treating other patients. I examined the patient and directed decision making. This was necessary to treat or prevent imminent deterioration of the following condition(s) Respiratory failure, Circulatory failure and Central nervous system failure or compromise. S/p Arch replacement complicated by Right MCA CVA requiring decompression craniotomy during the weekend concern yesterday about gaze dysconjugate repeat CT done, no changes vent dependent, unable to wean due to neuro status hypotension on levo will wean for MAP > 80 hypernatremia will increase water flushes acute blood loss anemia stable will monitor high Bili, plateau, will continue to monitor Ariane Tovar MD 10/16/2017 12:04 PM GASA + ALL Collected: 10/16/2017 Status: F Source: [place] FOR 11:27 AM [facility] USE ONLY REPOSITORY TYPE CODE TESTS RESULT OUT OF REFERENCE UNITS RANGE LAB PH 7.35-7.45 pH 7.40 LAB PCO2 34-46 mm Hg pCO2 36 LAB PO2 85-95 mm Hg pO2 High 99 LAB BE mmol/L Base Excess NEG 2 LAB HCO3 22-26 mmol/L Bicarbonate 22 LAB CO2CT 22.0-28.0 mmol/L CO2 Content 23 LAB O2HB 95-98 % Oxyhemoglobin, Art. 96 LAB COHB 0-5.0 % Carboxyhemoglobin, 0.9 Art LAB MHGB 0.4-1.5 % Methemoglobin 0.9 LAB TEMP C Temperature, Body 37.0 LAB PHTC 7.35-7.45 pH, Temp Corrected 7.40 LAB PCO2T 34-46 mm Hg pCO2, Temp Correct 36 LAB PO2T mm Hg pO2, Temp Corrected 99 LAB NAB 135-146 mmol/L Sodium,Whole High Bld 161 LAB KWB 3.5-5.0 mmol/L Potassium, Whole Bld 4.1 LAB HGBB 13.0-17.0 g/dL Low Hemoglobin,Total,A 9.4 CL LAB HCTB 39.0-51.0 % Hematocrit, Low ACL 29 LAB IC 1.08-1.30 mmol/L Calcium, Ion, WB 1.26 LAB GLB 60-105 mg/dL Glucose,Whole High Bld 142 LAB LACT 0.5-2.2 mmol/L Lactate 1.8 LAB ABGCOM Blood Gas Comm, Art Urgent value Result Comment: NA LAB ACBWHO Notified Whom, Art Called to and read back by Result Comment: Joe NORWOOD. LAB ACBDTE [id number] Notify Date, Art LAB ACBTME [id number] Notify Time, Art Performed By: #### ALLBG #### [facility] [address] [place] [id number] PROGRESS Observed: 10/16/2017 Status: COMPLETED Source: [place] 11:15 AM [facility] REPOSITORY HNO ID: [id number] Author: Cheng (Back Maker) MIRELLA Louis.ROVING HAULER Service: Critical Care Author Type: Nurse Specialist Type: Progress Notes Filed: 10/16/2017 11:15 AM Note Text: Discussed patient in Interdisiplinary Rounds. Attending rounds: Clinical Nurse Specialist, Nurse Practitioner, Nurse Coordinator, Lumber Cutter, Ethicist, MD, and bedside nurse. 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 Chegn Louis MSN, APPLICATIONS SALES CONSULTANT, ACCNS-AG, CCRN GASA + ALL Collected: 10/16/2017 Status: F Source: [place] FOR 8:09 AM [facility] RADIANCE USE ONLY REPOSITORY TYPE CODE TESTS RESULT OUT OF REFERENCE UNITS RANGE LAB PH 7.35-7.45 pH 7.39 LAB PCO2 34-46 mm Hg pCO2 37 LAB PO2 85-95 mm Hg pO2 High 117 LAB BE mmol/L Base Excess NEG 2 LAB HCO3 22-26 mmol/L Bicarbonate 22 LAB CO2CT 22.0-28.0 mmol/L CO2 Content 23 LAB O2HB 95-98 % Oxyhemoglobin, Art. 96 LAB COHB 0-5.0 % Carboxyhemoglobin, 1.3 Art LAB MHGB 0.4-1.5 % Methemoglobin 1.0 LAB TEMP C Temperature, Body 37.0 LAB PHTC 7.35-7.45 pH, Temp Corrected 7.39 LAB PCO2T 34-46 mm Hg pCO2, Temp Correct 37 LAB PO2T mm Hg pO2, Temp Corrected 117 LAB NAB 135-146 mmol/L Sodium,Whole High Bld 161 LAB KWB 3.5-5.0 mmol/L Potassium, Whole Bld 3.7 LAB HGBB 13.0-17.0 g/dL Low Hemoglobin,Total,A 9.3 CL LAB HCTB 39.0-51.0 % Hematocrit, Low ACL 29 LAB IC 1.08-1.30 mmol/L Calcium, Ion, WB 1.30 LAB GLB 60-105 mg/dL Glucose,Whole High Bld 137 LAB LACT 0.5-2.2 mmol/L Lactate 2.1 LAB ABGCOM Blood Gas Comm, Art Urgent value Result Comment: NA LAB ACBWHO Notified Whom, Art Called to and read back by Result Comment: Porter Cox S STAANA LAB ACBDTE [id number] Notify Date, Art LAB ACBTME [id number] Notify Time, Art Performed By: #### ALLBG #### [facility] [address] [place], [place] [address] SODIUM Collected: 10/16/2017 Status: F Source: [place] 8:00 AM [facility] REPOSITORY TYPE CODE TESTS RESULT OUT OF REFERENCE UNITS RANGE LAB NA 136-144 mmol/L High Sodium 164 Result Comment: Called to and read back by: Beata Cox 10/16/17 Karla Peña Performed By: #### NA #### [facility] [address] [place], [place] [address] GASA + ALL Collected: 10/16/2017 Status: F Source: [place] FOR 6:23 AM [facility] RADIANCE USE ONLY REPOSITORY TYPE CODE TESTS RESULT OUT OF REFERENCE UNITS RANGE LAB PH 7.35-7.45 pH 7.40 LAB PCO2 34-46 mm Hg pCO2 36 LAB PO2 85-95 mm Hg pO2 High 122 LAB BE mmol/L Base Excess NEG 2 LAB HCO3 22-26 mmol/L Bicarbonate 22 LAB CO2CT 22.0-28.0 mmol/L CO2 Content 23 LAB O2HB 95-98 % Oxyhemoglobin, Art. 96 LAB COHB 0-5.0 % Carboxyhemoglobin,A 1.5 rt LAB MHGB 0.4-1.5 % Methemoglobin 0.7 LAB TEMP C Temperature, Body 37.0 LAB PHTC 7.35-7.45 pH, Temp Corrected 7.40 LAB PCO2T 34-46 mm Hg pCO2, Temp Correct 36 LAB PO2T mm Hg pO2, Temp Corrected 122 LAB NAB 135-146 mmol/L Sodium,Whole Bld High 159 LAB KWB 3.5-5.0 mmol/L Potassium, Whole Bld 3.7 LAB HGBB 13.0-17.0 g/dL Low Hemoglobin,Total,AC 9.0 L LAB HCTB 39.0-51.0 % Hematocrit, ACL Low 28 LAB IC 1.08-1.30 mmol/L Calcium, Ion, WB 1.23 LAB GLB 60-105 mg/dL Glucose,Whole Bld High 158 LAB LACT 0.5-2.2 mmol/L Lactate 2.0 Performed By: #### ALLBG #### [facility] [address] [place] [id number] GASA + ALL Collected: 10/16/2017 Status: F Source: [place] FOR 4:24 AM [facility] REPOSITORY TYPE CODE TESTS RESULT OUT OF REFERENCE UNITS RANGE LAB PH 7.35-7.45 pH 7.40 LAB PCO2 34-46 mm Hg pCO2 38 LAB PO2 85-95 mm Hg pO2 High 101 LAB BE mmol/L Base Excess NEG 1 LAB HCO3 22-26 mmol/L Bicarbonate 23 LAB CO2CT 22.0-28.0 mmol/L CO2 Content 24 LAB O2HB 95-98 % Oxyhemoglobin, Art. 96 LAB COHB 0-5.0 % Carboxyhemoglobin,A 1.3 rt LAB MHGB 0.4-1.5 % Methemoglobin 0.6 LAB TEMP C Temperature, Body 37.0 LAB PHTC 7.35-7.45 pH, Temp Corrected 7.40 LAB PCO2T 34-46 mm Hg pCO2, Temp Correct 38 LAB PO2T mm Hg pO2, Temp Corrected 101 LAB NAB 135-146 mmol/L Sodium,Whole Bld High 160 LAB KWB 3.5-5.0 mmol/L Potassium, Whole Bld 4.0 LAB HGBB 13.0-17.0 g/dL Low Hemoglobin,Total,AC 9.2 L LAB HCTB 39.0-51.0 % Hematocrit, ACL Low 28 LAB IC 1.08-1.30 mmol/L Calcium, Ion, WB 1.22 LAB GLB 60-105 mg/dL Glucose,Whole Bld High 144 LAB LACT 0.5-2.2 mmol/L Lactate 1.7 Performed By: #### ALLBG #### [facility] [address] [place], [place] [address] XR CHEST 1V FRONTAL Observed: 10/16/2017 Status: F Source: [facility] 2:46 AM [facility] REPOSITORY * * *Final Report* * * DATE OF EXAM: Oct 16 2017 2:46AM JIX [id number] - XR CHEST 1V FRONTAL PORT / PROCEDURE REASON: Postoperative state * * * * Physician Interpretation * * * * EXAMINATION: CHEST RADIOGRAPH (PORTABLE SINGLE VIEW AP) Exam Date/Time: 10/16/2017 2:46 AM Indication: Postoperative state MQ: XCP_4 Comparison: 1 day prior RESULT: See impression. IMPRESSION: Lines, tubes, and devices: Patient is status post median sternotomy. Endovascular stent graft traverses the arch and proximal descending thoracic aorta. Patient remains intubated with feeding tube, right IJ central venous catheter, mediastinal drains and bilateral chest tubes. Lungs and pleura: There are trace bilateral pleural effusions with bibasilar atelectasis and pulmonary venous congestion. No large pneumothorax is identified. Findings are essentially stable from the prior exam. Cardiomediastinal silhouette: The cardiomediastinal silhouette is unchanged. Other: Surgical clips are noted in the right axilla. Silver Wrapper: PSCB Transcribe Date/Time: Oct 16 2017 8:01A Dictated by : MARISELA MONACO MD This examination was interpreted and the report reviewed and electronically signed by: MARISELA MONACO MD on Oct 16 2017 8:02AM EST [id number] GASA + ALL Collected: 10/16/2017 Status: F Source: [facility] 1:29 AM [facility] RADIANCE USE ONLY REPOSITORY TYPE CODE TESTS RESULT OUT OF REFERENCE UNITS RANGE LAB PH 7.35-7.45 pH 7.40 LAB PCO2 34-46 mm Hg pCO2 37 LAB PO2 85-95 mm Hg pO2 95 LAB BE mmol/L Base Excess NEG 2 LAB HCO3 22-26 mmol/L Bicarbonate 22 LAB CO2CT 22.0-28.0 mmol/L CO2 Content 23 LAB O2HB 95-98 % Oxyhemoglobin, Art. 96 LAB COHB 0-5.0 % Carboxyhemoglobin,A 1.3 rt LAB MHGB 0.4-1.5 % Methemoglobin 0.9 LAB TEMP C Temperature, Body 37.0 LAB PHTC 7.35-7.45 pH, Temp Corrected 7.40 LAB PCO2T 34-46 mm Hg pCO2, Temp Correct 37 LAB PO2T mm Hg pO2, Temp Corrected 95 LAB NAB 135-146 mmol/L Sodium,Whole Bld High 159 LAB KWB 3.5-5.0 mmol/L Potassium, Whole Bld 4.3 LAB HGBB 13.0-17.0 g/dL Low Hemoglobin,Total,AC 9.3 L LAB HCTB 39.0-51.0 % Hematocrit, ACL Low 29 LAB IC 1.08-1.30 mmol/L Calcium, Ion, WB 1.24 LAB GLB 60-105 mg/dL Glucose,Whole Bld High 138 LAB LACT 0.5-2.2 mmol/L Lactate 1.8 Performed By: #### ALLBG #### [facility] [address] [place], [place] [address] CBC Collected: 10/16/2017 Status: F Source: [place] 1:20 AM [facility] REPOSITORY TYPE CODE TESTS RESULT OUT OF REFERENCE UNITS RANGE LAB WBC 3.70-11.00 k/uL WBC High 15.74 LAB RBC 4.20-6.00 m/uL Low RBC 3.07 LAB HGB 13.0-17.0 g/dL Low Hemoglobin 9.2 LAB HCT 39.0-51.0 % Low Hematocrit 29.7 LAB MCV 80.0-100.0 fL MCV 96.7 LAB MCH 26.0-34.0 pG MCH 30.0 LAB MCHC 30.5-36.0 g/dL MCHC 31.0 LAB RDWCV 11.5-15.0 % RDW-CV High 16.4 LAB PLTCT 150-400 k/uL Platelet Count 219 LAB MPV 9.0-12.7 fL MPV 10.8 LAB ABSNUC <0.01 k/uL Absolute High nRBC 0.01 Performed By: #### CBC, CMP #### [facility] [address] [place], [place] [address] COMP METABOLIC PANEL Collected: 10/16/2017 Status: F Source: [place] 1:20 AM [facility] REPOSITORY TYPE CODE TESTS RESULT OUT OF REFERENCE UNITS RANGE LAB TP 6.3-8.0 g/dL Low Protein, Total 5.8 LAB ALB 3.9-4.9 g/dL Low Albumin 3.1 LAB CA 8.5-10.2 mg/dL Low Calcium, Total 8.2 LAB TBIL 0.2-1.3 mg/dL Bilirubin, High Total 8.9 LAB ALKP 36-108 U/L Alkaline Phosphatase 61 LAB AST 14-40 U/L AST High 81 LAB GLU 74-99 mg/dL Glucose High 147 Result Comment: The [place] [employer] (ADA) provides guidance for cutoff values for fasting glucose and random glucose. The ADA defines fasting as no caloric intake for at least 8 hours. Fas ting plasma glucose results between 100 to 125 mg/dL indicate increased risk for diabetes (prediabetes). Fasting plasma glucose results greater than or equal to 126 mg/dL meet the criteria for diagnosis of diabetes. In the absence of unequivocal hyperglycemia, results should be confirmed by repeat testing. In a patient with classic symptoms of hyperglycemia or hyperglycemic crisis, random plasma glucose results greater than or equal to 200 mg/dL meet the criteria for diagnosis of diabetes. Reference: Standards of Medical Care in Diabetes 2016, [place] [employer] Association. Diabetes Care. 2016.39(Suppl 1). LAB BUN 9-24 mg/dL BUN High 64 LAB CRET 0.73-1.22 mg/dL Creatinine High 1.34 LAB NA 136-144 mmol/L Sodium High 161 Result Comment: Called to and read back by: Kalie Sawyer [id number] 10/16/17 02:49 Tomi LAB K 3.7-5.1 mmol/L Potassium 4.4 LAB CL 97-105 mmol/L Chloride High 127 LAB CO2 22-30 mmol/L CO2 25 LAB AGAP 9-18 mmol/L Anion Gap 9 LAB ALT 10-54 U/L ALT High 85 LAB GFRAA eGFR- Amer. >60 LAB GFRNAA . eGFR-All Other Races 56 Result Comment: eGFR (Estimated GFR) Units of measure: mL/min/1.73 meters squared eGFR is derived from the reexpressed MDRD Study equation using the following parameters: serum creatinine, age, gender and race. The creatinine assay has been calibrated to be traceable to IDMS. An eGFR <60 mL/min/1.73m2 for >3 months is consistent with chronic kidney disease. Refer to KDOQI guidelines for clinical interpretation. In patients with unstable renal function, e.g. those with acute kidney injury, the eGFR may not accurately reflect actual GFR. Performed By: #### CBC, CMP #### [facility] [address] [place], [place] [address] STAPH AUREUS PCR Collected: 10/16/2017 Status: F Source: [place] 1:20 AM [facility] REPOSITORY TYPE CODE TESTS RESULT OUT OF REFERENCE UNITS RANGE LAB SASRC Nasal S aureus Spec Source LAB MRSRES Negative for MRSA MRSA by PCR. PCR LAB SARES Negative for Staph Staphylococcus aureus PCR aureus by PCR. Performed By: #### SAPCR #### [facility] [address] [place], [place] [address] GASA + ALL Collected: 10/15/2017 Status: F Source: [place] FOR 8:07 PM [facility] RADIANCE USE ONLY REPOSITORY TYPE CODE TESTS RESULT OUT OF REFERENCE UNITS RANGE LAB PH 7.35-7.45 pH 7.35 LAB PCO2 34-46 mm Hg pCO2 42 LAB PO2 85-95 mm Hg pO2 High 141 LAB BE mmol/L Base Excess NEG 2 LAB HCO3 22-26 mmol/L Bicarbonate 23 LAB CO2CT 22.0-28.0 mmol/L CO2 Content 24 LAB O2HB 95-98 % Oxyhemoglobin, Art. 97 LAB COHB 0-5.0 % Carboxyhemoglobin,A 1.3 rt LAB MHGB 0.4-1.5 % Methemoglobin 0.7 LAB TEMP C Temperature, Body 37.0 LAB PHTC 7.35-7.45 pH, Temp Corrected 7.35 LAB PCO2T 34-46 mm Hg pCO2, Temp Correct 42 LAB PO2T mm Hg pO2, Temp Corrected 141 LAB NAB 135-146 mmol/L Sodium,Whole Bld High 159 LAB KWB 3.5-5.0 mmol/L Potassium, Whole Bld 4.4 LAB HGBB 13.0-17.0 g/dL Low Hemoglobin,Total,AC 9.5 L LAB HCTB 39.0-51.0 % Hematocrit, ACL Low 30 LAB IC 1.08-1.30 mmol/L Calcium, Ion, WB 1.26 LAB GLB 60-105 mg/dL Glucose,Whole Bld High 144 LAB LACT 0.5-2.2 mmol/L Lactate 1.9 Performed By: #### ALLBG #### [facility] [address] [place], [place] [address] SODIUM Collected: 10/15/2017 Status: F Source: [place] 8:00 PM [facility] REPOSITORY TYPE CODE TESTS RESULT OUT OF REFERENCE UNITS RANGE LAB NA 136-144 mmol/L High Sodium 160 Performed By: #### NA #### [facility] [address] [place], [place] [address] GASA + ALL Collected: 10/15/2017 Status: F Source: [place] FOR 6:06 PM [facility] RADIANCE USE ONLY REPOSITORY TYPE CODE TESTS RESULT OUT OF REFERENCE UNITS RANGE LAB PH 7.35-7.45 pH Low 7.34 LAB PCO2 34-46 mm Hg pCO2 44 LAB PO2 85-95 mm Hg pO2 High 134 LAB BE mmol/L Base Excess NEG 2 LAB HCO3 22-26 mmol/L Bicarbonate 23 LAB CO2CT 22.0-28.0 mmol/L CO2 Content 24 LAB O2HB 95-98 % Oxyhemoglobin, Art. 97 LAB COHB 0-5.0 % Carboxyhemoglobin,A 0.8 rt LAB MHGB 0.4-1.5 % Methemoglobin 0.6 LAB TEMP C Temperature, Body 37.0 LAB PHTC 7.35-7.45 pH, Temp Low Corrected 7.34 LAB PCO2T 34-46 mm Hg pCO2, Temp Correct 44 LAB PO2T mm Hg pO2, Temp Corrected 134 LAB NAB 135-146 mmol/L Sodium,Whole Bld High 159 LAB KWB 3.5-5.0 mmol/L Potassium, Whole Bld 4.4 LAB HGBB 13.0-17.0 g/dL Low Hemoglobin,Total,AC 9.8 L LAB HCTB 39.0-51.0 % Hematocrit, ACL Low 30 LAB IC 1.08-1.30 mmol/L Calcium, Ion, WB 1.25 LAB GLB 60-105 mg/dL Glucose,Whole Bld High 158 LAB LACT 0.5-2.2 mmol/L Lactate 1.7 Performed By: #### ALLBG #### [facility] [address] [place], [place] [address] GASA + ALL Collected: 10/15/2017 Status: F Source: [place] FOR 4:40 PM [facility] REPOSITORY TYPE CODE TESTS RESULT OUT OF REFERENCE UNITS RANGE LAB PH 7.35-7.45 pH Low 7.29 LAB PCO2 34-46 mm Hg pCO2 High 50 LAB PO2 85-95 mm Hg pO2 High 115 LAB BE mmol/L Base Excess NEG 3 LAB HCO3 22-26 mmol/L Bicarbonate 23 LAB CO2CT 22.0-28.0 mmol/L CO2 Content 25 LAB O2HB 95-98 % Oxyhemoglobin, Art. 96 LAB COHB 0-5.0 % Carboxyhemoglobin,A 0.7 rt LAB MHGB 0.4-1.5 % Methemoglobin 0.8 LAB TEMP C Temperature, Body 37.0 LAB PHTC 7.35-7.45 pH, Temp Low Corrected 7.29 LAB PCO2T 34-46 mm Hg pCO2, Temp High Correct 50 LAB PO2T mm Hg pO2, Temp Corrected 115 LAB NAB 135-146 mmol/L Sodium,Whole Bld High 160 LAB KWB 3.5-5.0 mmol/L Potassium, Whole Bld 4.4 LAB HGBB 13.0-17.0 g/dL Low Hemoglobin,Total,AC 9.9 L LAB HCTB 39.0-51.0 % Hematocrit, ACL Low 31 LAB IC 1.08-1.30 mmol/L Calcium, Ion, WB 1.27 LAB GLB 60-105 mg/dL Glucose,Whole Bld High 129 LAB LACT 0.5-2.2 mmol/L Lactate 1.5 Performed By: #### ALLBG #### [facility] [address] [place], [place] [address] CT BRAIN WO IVCON Observed: 10/15/2017 Status: F Source: [place] 3:52 PM [facility] REPOSITORY * * *Final Report* * * DATE OF EXAM: Oct 15 2017 3:52PM [facility] [place] - CT BRAIN WO IVCON / PROCEDURE REASON: Stroke (HCC) * * * * Physician Interpretation * * * * EXAMINATION: CT BRAIN WO IVCON HISTORY: Stroke (HCC) TECHNIQUE: Serial axial images without IV contrast were obtained from the vertex to the foramen magnum. MQ: [id number] CT Dose-Length Product (DLP): 722 mGy*cm CT Dose Reduction Employed: No dose reduction techniques were required COMPARISON: 10/14/2017 at 4:59 PM RESULT: Post-operative change: Decompressive right hemicraniectomy is redemonstrated. Acute change: Evolving right MCA territorial infarction. The posterior fossa is obscured by beam hardening artifact. Hemorrhage: Trace petechial hemorrhage along the infarct is not excluded. Small amount of subdural hemorrhage over the right frontal convexity and right tentorium. Extra-axial hemorrhage deep to the scalp flap measuring up to 1.3 cm in transverse thickness extending to the right sylvian region. Overall these findings are stable. There is no evidence of new parenchymal hemorrhage. Mass Lesion / Mass Effect: Intracranial mass effect with partial effacement of the right lateral ventricle, leftward midline shift of approximately 2 mm. Herniation of the infarcted parenchyma through the craniectomy defect without evidence of impingement. Chronic change: None apparent. Parenchyma: There is no significant volume loss. Ventricles: Stable effacement of the right lateral ventricle and minimal prominence of the right temporal horn. Paranasal sinuses and skull base: Paranasal sinus opacification redemonstrated. IMPRESSION: Stable appearance of the brain compared with 10/14/2017. Silver Wrapper: PSCB Transcribe Date/Time: Oct 15 2017 4:03P Dictated by : LEAH BOOTH MD This examination was interpreted and the report reviewed and electronically signed by: LEAH BOOTH MD on Oct 15 2017 4:09PM EST [id number] GASA + ALL Collected: 10/15/2017 Status: F Source: [place] FOR 1:58 PM [facility] RADIANCE USE ONLY REPOSITORY TYPE CODE TESTS RESULT OUT OF REFERENCE UNITS RANGE LAB PH 7.35-7.45 pH Low 7.33 LAB PCO2 34-46 mm Hg pCO2 44 LAB PO2 85-95 mm Hg pO2 High 100 LAB BE mmol/L Base Excess NEG 3 LAB HCO3 22-26 mmol/L Bicarbonate 23 LAB CO2CT 22.0-28.0 mmol/L CO2 Content 24 LAB O2HB 95-98 % Oxyhemoglobin, Art. 96 LAB COHB 0-5.0 % Carboxyhemoglobin,A 1.6 rt LAB MHGB 0.4-1.5 % Methemoglobin 0.6 LAB TEMP C Temperature, Body 37.0 LAB PHTC 7.35-7.45 pH, Temp Low Corrected 7.33 LAB PCO2T 34-46 mm Hg pCO2, Temp Correct 44 LAB PO2T mm Hg pO2, Temp Corrected 100 LAB NAB 135-146 mmol/L Sodium,Whole Bld High 158 LAB KWB 3.5-5.0 mmol/L Potassium, Whole Bld 4.2 LAB HGBB 13.0-17.0 g/dL Low Hemoglobin,Total,AC 9.5 L LAB HCTB 39.0-51.0 % Hematocrit, ACL Low 29 LAB IC 1.08-1.30 mmol/L Calcium, Ion, WB 1.24 LAB GLB 60-105 mg/dL Glucose,Whole Bld High 145 LAB LACT 0.5-2.2 mmol/L Lactate 1.7 Performed By: #### ALLBG #### [facility] [address] [place] [address] SODIUM Collected: 10/15/2017 Status: F Source: [place] 1:51 PM [facility] REPOSITORY TYPE CODE TESTS RESULT OUT OF REFERENCE UNITS RANGE LAB NA 136-144 mmol/L High Sodium 160 Performed By: #### NA #### [facility] [address] [place] [address] GASA + ALL Collected: 10/15/2017 Status: F Source: [place] FOR 11:51 AM [facility] RADIANCE USE ONLY REPOSITORY TYPE CODE TESTS RESULT OUT OF REFERENCE UNITS RANGE LAB PH 7.35-7.45 pH 7.35 LAB PCO2 34-46 mm Hg pCO2 44 LAB PO2 85-95 mm Hg pO2 High 99 LAB BE mmol/L Base Excess NEG 1 LAB HCO3 22-26 mmol/L Bicarbonate 24 LAB CO2CT 22.0-28.0 mmol/L CO2 Content 25 LAB O2HB 95-98 % Oxyhemoglobin, Art. 95 LAB COHB 0-5.0 % Carboxyhemoglobin, 1.3 Art LAB MHGB 0.4-1.5 % Methemoglobin 1.0 LAB TEMP C Temperature, Body 37.0 LAB PHTC 7.35-7.45 pH, Temp Corrected 7.35 LAB PCO2T 34-46 mm Hg pCO2, Temp Correct 44 LAB PO2T mm Hg pO2, Temp Corrected 99 LAB NAB 135-146 mmol/L Sodium,Whole High Bld 158 LAB KWB 3.5-5.0 mmol/L Potassium, Whole Bld 4.6 LAB HGBB 13.0-17.0 g/dL Low Hemoglobin,Total,A 9.5 CL LAB HCTB 39.0-51.0 % Hematocrit, Low ACL 30 LAB IC 1.08-1.30 mmol/L Calcium, Ion, WB 1.21 LAB GLB 60-105 mg/dL Glucose,Whole High Bld 149 LAB LACT 0.5-2.2 mmol/L Lactate 1.6 LAB ACBDTE Notify Date, Art [id number] LAB ACBTME Notify Time, Art Performed By: #### ALLBG #### [facility] [address] [place], [place] [address] GASA + ALL Collected: 10/15/2017 Status: F Source: [place] FOR 10:06 AM [facility] RADIANCE USE ONLY REPOSITORY TYPE CODE TESTS RESULT OUT OF REFERENCE UNITS RANGE LAB PH 7.35-7.45 pH Low 7.33 LAB PCO2 34-46 mm Hg pCO2 High 47 LAB PO2 85-95 mm Hg pO2 High 114 LAB BE mmol/L Base Excess NEG 2 LAB HCO3 22-26 mmol/L Bicarbonate 24 LAB CO2CT 22.0-28.0 mmol/L CO2 Content 25 LAB O2HB 95-98 % Oxyhemoglobin, Art. 96 LAB COHB 0-5.0 % Carboxyhemoglobin,A 0.9 rt LAB MHGB 0.4-1.5 % Methemoglobin 0.8 LAB TEMP C Temperature, Body 37.0 LAB PHTC 7.35-7.45 pH, Temp Low Corrected 7.33 LAB PCO2T 34-46 mm Hg pCO2, Temp High Correct 47 LAB PO2T mm Hg pO2, Temp Corrected 114 LAB NAB 135-146 mmol/L Sodium,Whole Bld High 159 LAB KWB 3.5-5.0 mmol/L Potassium, Whole Bld 4.3 LAB HGBB 13.0-17.0 g/dL Low Hemoglobin,Total,AC 9.4 L LAB HCTB 39.0-51.0 % Hematocrit, ACL Low 29 LAB IC 1.08-1.30 mmol/L Calcium, Ion, WB 1.24 LAB GLB 60-105 mg/dL Glucose,Whole Bld High 114 LAB LACT 0.5-2.2 mmol/L Lactate 1.4 Performed By: #### ALLBG #### [facility] [address] [place], [place] [address] GASA + ALL Collected: 10/15/2017 Status: F Source: [place] FOR 8:47 AM [facility] RADIANCE USE ONLY REPOSITORY TYPE CODE TESTS RESULT OUT OF REFERENCE UNITS RANGE LAB PH 7.35-7.45 pH Low 7.34 LAB PCO2 34-46 mm Hg pCO2 46 LAB PO2 85-95 mm Hg pO2 High 101 LAB BE mmol/L Base Excess NEG 1 LAB HCO3 22-26 mmol/L Bicarbonate 24 LAB CO2CT 22.0-28.0 mmol/L CO2 Content 26 LAB O2HB 95-98 % Oxyhemoglobin, Art. 96 LAB COHB 0-5.0 % Carboxyhemoglobin,A 0.7 rt LAB MHGB 0.4-1.5 % Methemoglobin Low 0.2 LAB TEMP C Temperature, Body 37.0 LAB PHTC 7.35-7.45 pH, Temp Low Corrected 7.34 LAB PCO2T 34-46 mm Hg pCO2, Temp Correct 46 LAB PO2T mm Hg pO2, Temp Corrected 101 LAB NAB 135-146 mmol/L Sodium,Whole Bld High 157 LAB KWB 3.5-5.0 mmol/L Potassium, Whole Bld 3.8 LAB HGBB 13.0-17.0 g/dL Low Hemoglobin,Total,AC 9.2 L LAB HCTB 39.0-51.0 % Hematocrit, ACL Low 28 LAB IC 1.08-1.30 mmol/L Calcium, Ion, WB 1.21 LAB GLB 60-105 mg/dL Glucose,Whole Bld High 131 LAB LACT 0.5-2.2 mmol/L Lactate 1.9 Performed By: #### ALLBG #### [facility] [address] [place], [place] [address] Observed: 10/15/2017 Status: F Source: [place] RESPIRATORY CULT/STAIN 8:20 AM [facility] REPOSITORY Sp. Request/Comment: - Specimen received in sterile container. Smear Result - No organisms seen Moderate Polymorphonuclear leukocytes Culture Result - No growth 2 days Performed By: #### RCULST #### [facility] [address] [place], [place] [address] GASA + ALL Collected: 10/15/2017 Status: F Source: [place] FOR 7:55 AM [facility] RADIANCE USE ONLY REPOSITORY TYPE CODE TESTS RESULT OUT OF REFERENCE UNITS RANGE LAB PH 7.35-7.45 pH 7.37 LAB PCO2 34-46 mm Hg pCO2 42 LAB PO2 85-95 mm Hg pO2 High 101 LAB BE mmol/L Base Excess NEG 1 LAB HCO3 22-26 mmol/L Bicarbonate 24 LAB CO2CT 22.0-28.0 mmol/L CO2 Content 25 LAB O2HB 95-98 % Oxyhemoglobin, Art. 97 LAB COHB 0-5.0 % Carboxyhemoglobin,A 1.3 rt LAB MHGB 0.4-1.5 % Methemoglobin Low 0.0 LAB TEMP C Temperature, Body 37.0 LAB PHTC 7.35-7.45 pH, Temp Corrected 7.37 LAB PCO2T 34-46 mm Hg pCO2, Temp Correct 42 LAB PO2T mm Hg pO2, Temp Corrected 101 LAB NAB 135-146 mmol/L Sodium,Whole Bld High 159 LAB KWB 3.5-5.0 mmol/L Potassium, Whole Bld 3.7 LAB HGBB 13.0-17.0 g/dL Low Hemoglobin,Total,AC 9.0 L LAB HCTB 39.0-51.0 % Hematocrit, ACL Low 28 LAB IC 1.08-1.30 mmol/L Calcium, Ion, WB 1.22 LAB GLB 60-105 mg/dL Glucose,Whole Bld High 159 LAB LACT 0.5-2.2 mmol/L Lactate 2.0 Performed By: #### ALLBG #### [facility] [address] [place], [place] [address] SODIUM Collected: 10/15/2017 Status: F Source: [place] 7:47 AM [facility] REPOSITORY TYPE CODE TESTS RESULT OUT OF REFERENCE UNITS RANGE LAB NA 136-144 mmol/L High Sodium 160 Performed By: #### NA #### [facility] [address] [place] [address] PROGRESS Observed: 10/15/2017 Status: COMPLETED Source: [place] 7:44 AM [facility] REPOSITORY HNO ID: [id number] Author: Ariane Tovar Service: Critical Care Author Type: Anesthesiologist Type: Progress Notes Filed: 10/15/2017 8:14 AM Note Text: [facility] Progress Note Name: Jose Gustafson COORDINATION OF CARE NOTE: Indication for Surgery: Spontaneous Rupture of Aorta LVEF: Normal RVF: Normal Important/Relevant PMH/PSH: HTN, asthma, hx kidney stones Preoperative Hospital Course (narrative): 52 yo M with PMH HTN, Asthma, and hx of kidney stones who is transferred to [facility] for 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 Hypotension, cardiac insufficiency on norepinephrine, vasopressin, and epoprostenol. Returned to OR 10/08 for exploration and large amount of clots were removed but no active bleeding. Chest closure attempted 10/10 but failed 2/2 desaturation. Early AM 10/11 2 CLOT for left sided weakness. CTH with large large right MCA infarct with associated mass effect. Repeat imaging with evolution of R MCA infarct with increased edema now s/p right decompressive hemicraniectomy per Neurosurgery on 10/12. Issues to communicate at signout: OPEN CHEST - plan for closure 10/14 New RT sided MCA CVA s/p right decompressive hemicraniectomy: Continue 3% for cerebral edema, maintain Na 145-155; keppra 750 mg bid x 2 weeks per neuro: okay to resume ASA 10/13; SQH 10/04 - on hold until after chest closure OTHER PROBLEMS I MANAGED DURING THIS ENCOUNTER: Problem Acute Respiratory Insufficiency, Postoperative A/p - remains on full ventilatory support 2/ open chest, right hemicraniectomy. Remains hypoxic on increased fio2 AND peep. CXR with atelectasis and increased vascular markings. Remains on epoprostenol. Continue diuresis for volume control. 10/14/2017 will wean veletri after chest closure 10/15/2017 unable to wean due to neuro status Acute Ischemic Right Mca Stroke (Hcc) New L sided weakness 10/11; CTH with large R MCA infarct with associated mass effect. Repeat imaging with evolution of R MCA infarct with increased edema 10/12/2017 - Right decompressive hemicraniectomy for R MCA stroke and malignant cerebral edema A/p - continue hypertonic saline for goal Na 145-155 - resume ASA after chest closure; - Permissive hypertension as able; goal map >80 - keppra 750 mg bid x 2 weeks 10/14/2017 S/p decompressing craniotomy last saturday10/15/2017 followed simple command Acute Blood Loss Anemia Has required 13u pRBCs thus far A/p - continue to trend H/H; transfuse Hct > 30% 10/14- will monitor SUBJECTIVE INTERVAL HISTORY: No acute events PERTINENT REVIEW OF SYSTEMS: See Assessment and Plan. Remaining ROS reviewed and negative. PHYSICAL EXAM AND PERTINENT DATA: Infusions: Insulin Vital Signs: BP 152/83 Pulse 63 Temp 36.6 ?C (97.9 ?F) (Oral) Resp 20 Ht 182.9 cm (6') Wt 99.8 kg (220 lb 0.3 oz) SpO2 96% BMI 29.84 kg/m2 Neuro: Unresponsive Cardiovascular: Rate:normal sinus rhythm MAP: 100 mm Hg CVP: 14 mm Hg Pulmonary: Breath sounds equal and Diminished breath sounds, at the bases Ventilator: Intubated: SPCV; FiO2: 50%; PEEP: 9; Not ready for weaning; HOB elevated 40 degrees: Yes; Oral care with chlorhexidine: Yes; Was sedation turned off? Yes Recent Labs 10/15/17 0630 10/15/17 0403 10/15/17 0155 PH 7.35 7.36 7.37 PCO2 44 43 40 PO2 112* 148* 128* HCO3 24 24 23 O2HB 96 97 97 LACT 1.6 1.7 1.7 CXR Findings: Atelectasis Bilateral and CXR personally viewed and interpreted by ICU staff Physician Gastrointestinal: Abdominal: Soft, Non-tender and Bowel sounds yes Recent Labs 10/15/17 0005 10/14/17 0230 10/13/17 0007 TPROT 5.7* 6.2* 5.7* ALB 3.1* 3.4* 3.1* ALKPHOS 52 63 71 TBILI 8.0* 6.5* 4.0* AST 59* 76* 95* ALT 96* 125* 183* Heme: Recent Labs 10/15/17 0005 10/14/17 0230 10/13/17 0007 WBC 12.21* 9.35 8.80 HB 8.8* 9.2* 8.7* HCT 27.6* 29.0* 27.0* PLT 172 145* 137* Recent Labs 10/14/17 0230 10/12/17 0830 PTSEC 13.0 12.0 INR 1.3 1.2 APTT 29.9 36.1* Endocrine: Renal: Stable Intake/Output Summary (Last 24 hours) at 10/15/17 0659 Last data filed at 10/15/17 0630 Gross per 24 hour Intake 3410 ml Output 4775 ml Net -1365 ml Recent Labs 10/15/17 0417 10/15/17 0005 10/14/17 1950 10/14/17 1544 10/14/17 1021 10/14/17 0230 10/13/17 0007 NA 159* 161* 161* -- < > -- < > 159* < > 148* K -- 4.2 -- -- -- -- -- 3.7 -- 3.9 CHLOR -- 123* -- -- -- -- -- 119* -- 110* CO2 -- 25 -- 28 -- 26 < > 24 < > 28 BUN -- 59* -- -- -- -- -- 45* -- 33* CREAT -- 1.72* -- -- -- -- -- 1.92* -- 1.71* GLUC -- 137* -- -- -- -- -- 121* -- 108* < > = values in this interval not displayed. Recent Labs 10/15/17 0005 10/14/17 0230 10/13/17 0007 CA 8.0* 8.3* 8.1* Drug Blood Levels: I have discussed the case and the plan and management of the patient's care with the primary surgical team and consulting services, the bedside nurse and the respiratory therapist. SIGNATURE: Ariane Tovar MD DATE of SERVICE: 10/15/2017 TIME of SERVICE: 7:44 AM .I gave my full attention and provided critical care time for 32 minutes, exclusive of separately billable procedures and treating other patients. I examined the patient and directed decision making. This was necessary to treat or prevent imminent deterioration of the following condition(s) Respiratory failure and Central nervous system failure or compromise. S/p Arch replacement complicated by Right MCA CVA requiring decompression craniotomy during the weekend,followed simple command today vent dependent, will wean when neuro improve closed his chest yesterday nutrition tolerating TF hypernatremia will continue to monitor acute blood loss anemia stable will monitor Ariane Tovar MD 10/15/2017 8:06 AM CONSULT PROG Observed: 10/15/2017 Status: COMPLETED Source: [place] 7:38 AM [facility] REPOSITORY O ID: [id number] Author: Nicky Badillo Service: Neurology Author Type: Physician Type: Consult Progress Note Filed: 10/16/2017 4:48 PM Note Text: BRIEF STROKE CONSULT PROGRESS NOTE: Pt's Na remains elevated (156-161 in last 24h) despite being off 3% since midnight yesterday. rCTH shows expected evolution of known stroke. Chest closed yesterday. Back on propofol and pressors. Assessment: large R MCA infarct s/p hemicrani Plan: 1. Keep pt off hypertonics and allow Na to slowly normalize. Do not let Na drop by more than 10 per day given risk of central pontine myelinolysis. Goal today 145-155. Restart 2% if needed. 2. Change Na checks to q6h Bianca Irwin MD October 15, 2017 7:52 AM UPDATE: Pt evaluated at 1530 for dysconjugate gaze, unresponsiveness to noxious stim and verbal command. On assessment, gaze dysconjugate w/R eye up and out, L eye down and out. PERRL and all brainstem reflexes intact including occulocephalics, but no blink to threat. No movement on L to noxious stim, moves RLE to command in plane of bed twice, but then stopped responded again. No response to noxious stim in RUE. Taken for STAT rCTH which was stable. Notably bili trending up to 8, intermittently febrile to 39 since yesterday, intermittently being cooled w/cooling blankets. Assessment: stable L R MCA infarct and metabolic/infectious etiology. Plan: In addition to plan outlined above, monitor for seizure like activity and correct underlying metabolic and infectious issues. No BEM given hemicrani. Plan discussed w/stroke staff, Dr. Nicky Irwin MD October 15, 2017 5:39 PM TEACHING PHYSICIAN NOTE OF PERSONAL INVOLVEMENT IN CARE I have reviewed the Consult Note obtained and documented by Resident and I personally participated in the curry components. I have discussed the case and management of the patient's care with them. The following comments revise or confirm relevant curry components of the note. 52 yo man s/p large right MCA distribution infarct s/p aortic arch repair, underwent hemicraniectomy Saturday10/12/17. Imaging has been stable with reduced mass effect and no hemorrhagic conversion (last done yesterday). Clinically he has not been following commands for last few days. Today after > 10 minutes off propofol, his eyes are open, does not track or follow commands, EOM full (doll's eyes), some movement right toes. Impression: large right MCA embolic infarct s/p hemicraniectomy, not following commands. Possibly metabolic encephalopathy. Would place BEM to check for seizures. Slowly reduce sodium (still 162 this morning). Nicky Badillo MD GASA + ALL Collected: 10/15/2017 Status: F Source: [facility] 6:30 AM [facility] RADIANCE USE ONLY REPOSITORY TYPE CODE TESTS RESULT OUT OF REFERENCE UNITS RANGE LAB PH 7.35-7.45 pH 7.35 LAB PCO2 34-46 mm Hg pCO2 44 LAB PO2 85-95 mm Hg pO2 High 112 LAB BE mmol/L Base Excess NEG 1 LAB HCO3 22-26 mmol/L Bicarbonate 24 LAB CO2CT 22.0-28.0 mmol/L CO2 Content 25 LAB O2HB 95-98 % Oxyhemoglobin, Art. 96 LAB COHB 0-5.0 % Carboxyhemoglobin,A 1.4 rt LAB MHGB 0.4-1.5 % Methemoglobin 0.8 LAB TEMP C Temperature, Body 37.0 LAB PHTC 7.35-7.45 pH, Temp Corrected 7.35 LAB PCO2T 34-46 mm Hg pCO2, Temp Correct 44 LAB PO2T mm Hg pO2, Temp Corrected 112 LAB NAB 135-146 mmol/L Sodium,Whole Bld High 157 LAB KWB 3.5-5.0 mmol/L Potassium, Whole Bld 3.8 LAB HGBB 13.0-17.0 g/dL Low Hemoglobin,Total,AC 9.1 L LAB HCTB 39.0-51.0 % Hematocrit, ACL Low 28 LAB IC 1.08-1.30 mmol/L Calcium, Ion, WB 1.21 LAB GLB 60-105 mg/dL Glucose,Whole Bld High 173 LAB LACT 0.5-2.2 mmol/L Lactate 1.6 Performed By: #### ALLBG #### [facility] [address] [place], [place] [address] XR CHEST 1V FRONTAL Observed: 10/15/2017 Status: F Source: [facility] 4:25 AM [facility] REPOSITORY * * *Final Report* * * DATE OF EXAM: Oct 15 2017 4:25AM [facility] [id number] - XR CHEST 1V FRONTAL PORT / PROCEDURE REASON: Postoperative state * * * * Physician Interpretation * * * * EXAMINATION: CHEST RADIOGRAPH (PORTABLE SINGLE VIEW AP) Exam Date/Time: 10/15/2017 4:25 AM Indication: Postoperative state MQ: XCP_4 Comparison: 1 day prior RESULT: See impression. IMPRESSION: Lines, tubes, and devices: The patient is status post median sternotomy. Endotracheal tube, feeding tube, right IJ sheath, mediastinal drains and bilateral chest tubes are in place. Lungs and pleura: There is elevation of the left hemidiaphragm. Trace to small bilateral pleural effusions are noted with adjacent atelectasis. Patchy reticular opacities are noted, likely related to pulmonary edema. Left apical pleural thickening/fluid is noted. Cardiomediastinal silhouette: Cardiomediastinal silhouette is mildly enlarged. Endovascular stent graft is noted in the descending thoracic aorta. Other: Silver Wrapper: [facility] Transcribe Date/Time: Oct 15 2017 8:43A Dictated by : EFREN RAMIREZ MD This examination was interpreted and the report reviewed and electronically signed by: EFREN RAMIREZ MD on Oct 15 2017 8:46AM EST [id number] Collected: 10/15/2017 Status: F Source: [place] 4:17 AM [facility] REPOSITORY TYPE CODE TESTS RESULT OUT OF REFERENCE UNITS RANGE LAB NA 136-144 mmol/L High Sodium 159 Performed By: #### NA #### [facility] [address] [place] [address] GASA + ALL Collected: 10/15/2017 Status: F Source: [facility] 4:03 AM [facility] RADIANCE USE ONLY REPOSITORY TYPE CODE TESTS RESULT OUT OF REFERENCE UNITS RANGE LAB PH 7.35-7.45 pH 7.36 LAB PCO2 34-46 mm Hg pCO2 43 LAB PO2 85-95 mm Hg pO2 High 148 LAB BE mmol/L Base Excess NEG 1 LAB HCO3 22-26 mmol/L Bicarbonate 24 LAB CO2CT 22.0-28.0 mmol/L CO2 Content 25 LAB O2HB 95-98 % Oxyhemoglobin, Art. 97 LAB COHB 0-5.0 % Carboxyhemoglobin,A 1.4 rt LAB MHGB 0.4-1.5 % Methemoglobin 0.9 LAB TEMP C Temperature, Body 37.0 LAB PHTC 7.35-7.45 pH, Temp Corrected 7.36 LAB PCO2T 34-46 mm Hg pCO2, Temp Correct 43 LAB PO2T mm Hg pO2, Temp Corrected 148 LAB NAB 135-146 mmol/L Sodium,Whole Bld High 157 LAB KWB 3.5-5.0 mmol/L Potassium, Whole Bld 4.0 LAB HGBB 13.0-17.0 g/dL Low Hemoglobin,Total,AC 9.2 L LAB HCTB 39.0-51.0 % Hematocrit, ACL Low 28 LAB IC 1.08-1.30 mmol/L Calcium, Ion, WB 1.24 LAB GLB 60-105 mg/dL Glucose,Whole Bld High 145 LAB LACT 0.5-2.2 mmol/L Lactate 1.7 Performed By: #### ALLBG #### [facility] [address] [place], [place] [address] GASA + ALL Collected: 10/15/2017 Status: F Source: [place] FOR 1:55 AM [facility] RADIANCE USE ONLY REPOSITORY TYPE CODE TESTS RESULT OUT OF REFERENCE UNITS RANGE LAB PH 7.35-7.45 pH 7.37 LAB PCO2 34-46 mm Hg pCO2 40 LAB PO2 85-95 mm Hg pO2 High 128 LAB BE mmol/L Base Excess NEG 2 LAB HCO3 22-26 mmol/L Bicarbonate 23 LAB CO2CT 22.0-28.0 mmol/L CO2 Content 24 LAB O2HB 95-98 % Oxyhemoglobin, Art. 97 LAB COHB 0-5.0 % Carboxyhemoglobin,A 1.4 rt LAB MHGB 0.4-1.5 % Methemoglobin 0.6 LAB TEMP C Temperature, Body 37.0 LAB PHTC 7.35-7.45 pH, Temp Corrected 7.37 LAB PCO2T 34-46 mm Hg pCO2, Temp Correct 40 LAB PO2T mm Hg pO2, Temp Corrected 128 LAB NAB 135-146 mmol/L Sodium,Whole Bld High 159 LAB KWB 3.5-5.0 mmol/L Potassium, Whole Bld 3.8 LAB HGBB 13.0-17.0 g/dL Low Hemoglobin,Total,AC 9.0 L LAB HCTB 39.0-51.0 % Hematocrit, ACL Low 28 LAB IC 1.08-1.30 mmol/L Calcium, Ion, WB 1.22 LAB GLB 60-105 mg/dL Glucose,Whole Bld High 140 LAB LACT 0.5-2.2 mmol/L Lactate 1.7 Performed By: #### ALLBG #### [facility] [address] [place], [place] [address] GASA + ALL Collected: 10/15/2017 Status: F Source: [place] FOR 12:08 AM [facility] RADIANCE USE ONLY REPOSITORY TYPE CODE TESTS RESULT OUT OF REFERENCE UNITS RANGE LAB PH 7.35-7.45 pH 7.39 LAB PCO2 34-46 mm Hg pCO2 40 LAB PO2 85-95 mm Hg pO2 High 133 LAB BE mmol/L Base Excess 0 LAB HCO3 22-26 mmol/L Bicarbonate 24 LAB CO2CT 22.0-28.0 mmol/L CO2 Content 25 LAB O2HB 95-98 % Oxyhemoglobin, Art. 97 LAB COHB 0-5.0 % Carboxyhemoglobin,A 1.2 rt LAB MHGB 0.4-1.5 % Methemoglobin 0.5 LAB TEMP C Temperature, Body 37.0 LAB PHTC 7.35-7.45 pH, Temp Corrected 7.39 LAB PCO2T 34-46 mm Hg pCO2, Temp Correct 40 LAB PO2T mm Hg pO2, Temp Corrected 133 LAB NAB 135-146 mmol/L Sodium,Whole Bld High 158 LAB KWB 3.5-5.0 mmol/L Potassium, Whole Bld 4.0 LAB HGBB 13.0-17.0 g/dL Low Hemoglobin,Total,AC 8.8 L LAB HCTB 39.0-51.0 % Hematocrit, ACL Low 27 LAB IC 1.08-1.30 mmol/L Calcium, Ion, WB 1.16 LAB GLB 60-105 mg/dL Glucose,Whole Bld High 133 LAB LACT 0.5-2.2 mmol/L Lactate 1.7 Performed By: #### ALLBG #### [facility] [address] [place], [place] [address] CBC Collected: 10/15/2017 Status: F Source: [place] 12:05 AM [facility] REPOSITORY TYPE CODE TESTS RESULT OUT OF REFERENCE UNITS RANGE LAB WBC 3.70-11.00 k/uL WBC High 12.21 LAB RBC 4.20-6.00 m/uL Low RBC 2.91 LAB HGB 13.0-17.0 g/dL Low Hemoglobin 8.8 LAB HCT 39.0-51.0 % Low Hematocrit 27.6 LAB MCV 80.0-100.0 fL MCV 94.8 LAB MCH 26.0-34.0 pG MCH 30.2 LAB MCHC 30.5-36.0 g/dL MCHC 31.9 LAB RDWCV 11.5-15.0 % RDW-CV High 16.1 LAB PLTCT 150-400 k/uL Platelet Count 172 LAB MPV 9.0-12.7 fL MPV 10.6 LAB ABSNUC <0.01 k/uL Absolute nRBC <0.01 Performed By: #### CBC, CMP #### [facility] [address] [place], [place] [address] COMP METABOLIC PANEL Collected: 10/15/2017 Status: F Source: [place] 12:05 AM [facility] REPOSITORY TYPE CODE TESTS RESULT OUT OF REFERENCE UNITS RANGE LAB TP 6.3-8.0 g/dL Low Protein, Total 5.7 LAB ALB 3.9-4.9 g/dL Low Albumin 3.1 LAB CA 8.5-10.2 mg/dL Low Calcium, Total 8.0 LAB TBIL 0.2-1.3 mg/dL Bilirubin, High Total 8.0 LAB ALKP 36-108 U/L Alkaline Phosphatase 52 LAB AST 14-40 U/L AST High 59 LAB GLU 74-99 mg/dL Glucose High 137 Result Comment: The [place] [employer] (ADA) provides guidance for cutoff values for fasting glucose and random glucose. The ADA defines fasting as no caloric intake for at least 8 hours. Fas ting plasma glucose results between 100 to 125 mg/dL indicate increased risk for diabetes (prediabetes). Fasting plasma glucose results greater than or equal to 126 mg/dL meet the criteria for diagnosis of diabetes. In the absence of unequivocal hyperglycemia, results should be confirmed by repeat testing. In a patient with classic symptoms of hyperglycemia or hyperglycemic crisis, random plasma glucose results greater than or equal to 200 mg/dL meet the criteria for diagnosis of diabetes. Reference: Standards of Medical Care in Diabetes 2016, [place] [employer]. Diabetes Care. 2016.39(Suppl 1). LAB BUN 9-24 mg/dL BUN High 59 LAB CRET 0.73-1.22 mg/dL Creatinine High 1.72 LAB NA 136-144 mmol/L Sodium High 161 Result Comment: Called to and read back by: MEENA [id number] 10/15/17 Teddy6 KYLE LAB K 3.7-5.1 mmol/L Potassium 4.2 LAB CL 97-105 mmol/L Chloride High 123 LAB CO2 22-30 mmol/L CO2 25 LAB AGAP 9-18 mmol/L Anion Gap 13 LAB ALT 10-54 U/L ALT High 96 LAB GFRAA eGFR- Amer. 51 LAB GFRNAA . eGFR-All Other Races 42 Result Comment: eGFR (Estimated GFR) Units of measure: mL/min/1.73 meters squared eGFR is derived from the reexpressed MDRD Study equation using the following parameters: serum creatinine, age, gender and race. The creatinine assay has been calibrated to be traceable to IDMS. An eGFR <60 mL/min/1.73m2 for >3 months is consistent with chronic kidney disease. Refer to KDOQI guidelines for clinical interpretation. In patients with unstable renal function, e.g. those with acute kidney injury, the eGFR may not accurately reflect actual GFR. Performed By: #### CBC, CMP #### [facility] [address] [place], [place] [address] GASA + ALL Collected: 10/14/2017 Status: F Source: [place] FOR 10:00 PM [facility] RADIANCE USE ONLY REPOSITORY TYPE CODE TESTS RESULT OUT OF REFERENCE UNITS RANGE LAB PH 7.35-7.45 pH 7.38 LAB PCO2 34-46 mm Hg pCO2 43 LAB PO2 85-95 mm Hg pO2 High 103 LAB BE mmol/L Base Excess 0 LAB HCO3 22-26 mmol/L Bicarbonate 24 LAB CO2CT 22.0-28.0 mmol/L CO2 Content 26 LAB O2HB 95-98 % Oxyhemoglobin, Art. 95 LAB COHB 0-5.0 % Carboxyhemoglobin,A 1.5 rt LAB MHGB 0.4-1.5 % Methemoglobin 0.9 LAB TEMP C Temperature, Body 37.0 LAB PHTC 7.35-7.45 pH, Temp Corrected 7.38 LAB PCO2T 34-46 mm Hg pCO2, Temp Correct 43 LAB PO2T mm Hg pO2, Temp Corrected 103 LAB NAB 135-146 mmol/L Sodium,Whole Bld High 158 LAB KWB 3.5-5.0 mmol/L Potassium, Whole Bld 4.1 LAB HGBB 13.0-17.0 g/dL Low Hemoglobin,Total,AC 9.1 L LAB HCTB 39.0-51.0 % Hematocrit, ACL Low 28 LAB IC 1.08-1.30 mmol/L Calcium, Ion, WB 1.19 LAB GLB 60-105 mg/dL Glucose,Whole Bld High 131 LAB LACT 0.5-2.2 mmol/L Lactate 1.7 Performed By: #### ALLBG #### [facility] [address] [place], [place] [address] GASA + ALL Collected: 10/14/2017 Status: F Source: [place] FOR 7:54 PM [facility] RADIANCE USE ONLY REPOSITORY TYPE CODE TESTS RESULT OUT OF REFERENCE UNITS RANGE LAB PH 7.35-7.45 pH 7.43 LAB PCO2 34-46 mm Hg pCO2 36 LAB PO2 85-95 mm Hg pO2 High 143 LAB BE mmol/L Base Excess 0 LAB HCO3 22-26 mmol/L Bicarbonate 24 LAB CO2CT 22.0-28.0 mmol/L CO2 Content 25 LAB O2HB 95-98 % Oxyhemoglobin, Art. 98 LAB COHB 0-5.0 % Carboxyhemoglobin,A 0.4 rt LAB MHGB 0.4-1.5 % Methemoglobin 0.6 LAB TEMP C Temperature, Body 37.0 LAB PHTC 7.35-7.45 pH, Temp Corrected 7.43 LAB PCO2T 34-46 mm Hg pCO2, Temp Correct 36 LAB PO2T mm Hg pO2, Temp Corrected 143 LAB NAB 135-146 mmol/L Sodium,Whole Bld High 156 LAB KWB 3.5-5.0 mmol/L Potassium, Whole Bld 4.2 LAB HGBB 13.0-17.0 g/dL Low Hemoglobin,Total,AC 9.2 L LAB HCTB 39.0-51.0 % Hematocrit, ACL Low 29 LAB IC 1.08-1.30 mmol/L Calcium, Ion, WB 1.16 LAB GLB 60-105 mg/dL Glucose,Whole Bld High 151 LAB LACT 0.5-2.2 mmol/L Lactate High 2.3 Performed By: #### ALLBG #### [facility] [address] [place], [place] [address] SODIUM Collected: 10/14/2017 Status: F Source: [place] 7:50 PM [facility] REPOSITORY TYPE CODE TESTS RESULT OUT OF REFERENCE UNITS RANGE LAB NA 136-144 mmol/L High Sodium 161 Result Comment: Called to and read back by: Cyrus Martinez64 [id number]/14/[id number] Jimena Performed By: #### NA #### [facility] [address] [place] [id number] XR ABDOMEN 1V SUPINE Observed: 10/14/2017 Status: F Source: [place] 6:24 PM [facility] REPOSITORY * * *Final Report* * * DATE OF EXAM: Oct 14 2017 6:24PM [facility] [id number] - XR ABDOMEN 1V SUPINE / PROCEDURE REASON: Surgery follow-up * * * * Physician Interpretation * * * * PORTABLE SUPINE ABDOMINAL FILM: 10/14/2017 6:24 PM CLINICAL HISTORY: Surgery follow-up COMPARISON: 10/14/2017 5:00 PM TECHNIQUE: Supine abdomen, (1 view), 1 image RESULT: See impression. IMPRESSION: INTERVAL ADVANCEMENT OF CORPAK FEEDING TUBE WITH TIP NOW IN THE PROXIMAL DUODENUM. INTERVAL PROGRESSION OF DILATED SMALL BOWEL WITH ADDITIONAL GAS-FILLED DILATED SMALL BOWEL LOOPS. SOME COLONIC GAS IS ALSO SEEN IN NORMAL CALIBER LOOPS. FINDINGS REMAIN MOST CONSISTENT WITH ILEUS. PARTIALLY VISUALIZED THESE DOWN DRAINS AND CHEST TUBES ARE GROSSLY UNCHANGED. Silver Wrapper: [facility] Transcribe Date/Time: Oct 14 2017 11:11P Dictated by : LUIS ENRIQUE ROBERTO MD This examination was interpreted and the report reviewed and electronically signed by: LUIS ENRIQUE ROBERTO MD on Oct 14 2017 11:12PM EST [id number] GASA + ALL Collected: 10/14/2017 Status: F Source: [place] FOR 5:55 PM [facility] RADIANCE USE ONLY REPOSITORY TYPE CODE TESTS RESULT OUT OF REFERENCE UNITS RANGE LAB PH 7.35-7.45 pH 7.42 LAB PCO2 34-46 mm Hg pCO2 39 LAB PO2 85-95 mm Hg pO2 High 162 LAB BE mmol/L Base Excess 1 LAB HCO3 22-26 mmol/L Bicarbonate 25 LAB CO2CT 22.0-28.0 mmol/L CO2 Content 26 LAB O2HB 95-98 % Oxyhemoglobin, Art. 98 LAB COHB 0-5.0 % Carboxyhemoglobin,A 1.0 rt LAB MHGB 0.4-1.5 % Methemoglobin 0.5 LAB TEMP C Temperature, Body 37.0 LAB PHTC 7.35-7.45 pH, Temp Corrected 7.42 LAB PCO2T 34-46 mm Hg pCO2, Temp Correct 39 LAB PO2T mm Hg pO2, Temp Corrected 162 LAB NAB 135-146 mmol/L Sodium,Whole Bld High 158 LAB KWB 3.5-5.0 mmol/L Potassium, Whole Bld 4.5 LAB HGBB 13.0-17.0 g/dL Low Hemoglobin,Total,AC 9.1 L LAB HCTB 39.0-51.0 % Hematocrit, ACL Low 28 LAB IC 1.08-1.30 mmol/L Calcium, Ion, WB 1.17 LAB GLB 60-105 mg/dL Glucose,Whole Bld High 139 LAB LACT 0.5-2.2 mmol/L Lactate 1.7 Performed By: #### ALLBG #### [facility] [address] [place], [place] [address] CT BRAIN WO IVCON Observed: 10/14/2017 Status: F Source: [place] 5:20 PM [facility] REPOSITORY * * *Final Report* * * DATE OF EXAM: Oct 14 2017 5:20PM [facility] [place] - CT BRAIN WO IVCON / PROCEDURE REASON: CVA (cerebral vascular accident) (HCC) * * * * Physician Interpretation * * * * EXAMINATION: CT BRAIN WO IVCON HISTORY: CVA (cerebral vascular accident) (HCC) TECHNIQUE: Serial axial images without IV contrast were obtained from the vertex to the foramen magnum. MQ: [id number] CT Dose-Length Product (DLP): 770 mGy*cm CT Dose Reduction Employed: No dose reduction techniques were required COMPARISON: October 12, 2017. RESULT: Post-operative change: As before, large right-sided hemicraniectomy for herniation of brain parenchyma through the defect as decompression. The prior right MCA territory infarct shows sharp demarcation, representing transition from subacute towards encephalomalacia. Acute change: As above. Patchy low-attenuation left cerebellar hemisphere, suspect patchy subacute infarct in this region. Hemorrhage: Acute blood byproducts in the subdural space, maximum thickness approximately 14 mm deep to the scalp flap (axial image 24 and adjacent contiguous images for reference). Additional subdural blood is visible along the inner table of right frontal calvarium anterior to the craniectomy, T2-3 millimeters in thickness. No substantive change in the volume of the extra-axial blood by products deep to the scalp flap. Mass Lesion / Mass Effect: As above. Midline shift to the left has nearly resolved. There is still substantial right-sided generalized mass effect, slightly improved decompression through the craniectomy defect, and improved visualization of the right lateral ventricle. Chronic change: No clear evidence for background chronic microvascular disease. Parenchyma: No significant volume loss away from the obvious abnormality associated with the right MCA infarct. Ventricles: Flattening of right lateral ventricle has diminished as noted above. No evidence for obstructive hydrocephalus. Paranasal sinuses and skull base: Widespread patchy ethmoid inflammatory mucosal disease, peripheral mucosal thickening involving frontal, maxillary, and sphenoid chambers. Mastoid air cells and middle ear cavities are clear. Debris within the right external auditory canal is likely cerumen. The skull base and imaged soft tissues are unremarkable. IMPRESSION: Decompressive affect from the prior right-sided craniotomy. Midline shift has nearly resolved, and the right lateral ventricle is now visible. Blood by products deep to the scalp flap are unchanged in volume. Large right MCA infarct shows continued evolution now subacute, eventually encephalomalacia. No evidence for gross hemorrhagic conversion within the infarcted area. There may be subtle petechial changes, but no evidence for confluent hematoma. Silver Wrapper: AMY Transcribe Date/Time: Oct 14 2017 5:28P Dictated by : ANDRADE CRAWFORD MD This examination was interpreted and the report reviewed and electronically signed by: ANDRADE CRAWFORD MD on Oct 14 2017 5:38PM EST [id number] XR ABDOMEN 1V SUPINE Observed: 10/14/2017 Status: F Source: [place] 5:06 PM [facility] REPOSITORY * * *Final Report* * * DATE OF EXAM: Oct 14 2017 5:06PM IVANNA 5289 - XR ABDOMEN 1V SUPINE / PROCEDURE REASON: Encounter for feeding tube placement * * * * Physician Interpretation * * * * PORTABLE SUPINE ABDOMINAL FILM: 10/14/2017 5:06 PM CLINICAL HISTORY: Encounter for feeding tube placement COMPARISON: 10/11/2017 TECHNIQUE: Supine abdomen, (1 view), 1 image RESULT: See impression. IMPRESSION: PART OF THE RIGHT FLANK IS EXCLUDED. DILATED SMALL BOWEL LOOPS MEASURE UP TO APPROXIMATELY 5.1 CM, SIMILAR TO THE PRIOR STUDY. THIS LIKELY REFLECTS POSTOPERATIVE ILEUS. CORPAK FEEDING TUBE HAS BEEN READJUSTED OR REPLACED, NOW WITH TIP IN THE MID STOMACH, BEYOND THE GE JUNCTION. MEDIASTINAL DRAINS AND BILATERAL CHEST TUBES ARE PRESENT. NEW STERNAL WIRES ARE SEEN. PARTIAL VISUALIZATION OF AORTIC STENT. Silver Wrapper: PSCB Transcribe Date/Time: Oct 14 2017 11:09P Dictated by : LUIS ENRIQUE ROBERTO MD This examination was interpreted and the report reviewed and electronically signed by: LUIS ENRIQUE ROBERTO MD on Oct 14 2017 11:11PM EST [id number] PROGRESS Observed: 10/14/2017 Status: COMPLETED Source: [place] 4:58 PM [facility] REPOSITORY HNO ID: [id number] Author: Vianey Mosley Service: (none) Author Type: (none) Type: Progress Notes Filed: 10/14/2017 5:09 PM Note Text: Radiology Service Progress Note PATIENT NAME: Jose Gustafson DATE OF SERVICE: October 14, 2017 TIME: 4:58 PM PATIENT IDENTITY VERIFICATION COMPLETED USING TWO (2) METHODS: Patient confirmed name verbally and ID band matches.. PATIENT GENDER DATA: Male PATIENT RELEVANT IMPLANT DATA REVIEWED: Yes RADIOLOGY DEPARTMENT: CT; Exam(s) Completed: Brain PERIPHERAL IV DATA: Not applicable SIGNED BY: Vianey Mosley October 14, 2017 4:58 PM ANES POST Observed: 10/14/2017 Status: COMPLETED Source: [place] 3:50 PM [facility] REPOSITORY HNO ID: [id number] Author: Yumiko Dee Service: Anesthesiology Author Type: Anesthesiologist Type: Anesthesia PostOp Filed: 10/14/2017 3:53 PM Note Text: CT Anesthesia Postoperative Note: Patient is s/p chest washout with delayed closure. He tolerated the procedure uneventfully and was transferred back to CVICU intubated and sedated with no evidence of pain/nausea/vomiting. BP 100/50, HR 69, CVP 10, SpO2 100%, T 37.8. There are no adverse anesthetic events to report at present time. GASV + ALL Collected: 10/14/2017 Status: F Source: [place] 3:44 PM [facility] REPOSITORY TYPE CODE TESTS RESULT OUT OF REFERENCE UNITS RANGE LAB VPH 7.32-7.42 pH 7.32 LAB VPC2 42-55 mm Hg pCO2 52 LAB VPO2 35-45 mm Hg pO2 High 46 LAB VBE mmol/L Base Excess 0 LAB VHC3 24-28 mmol/L Bicarbonate 26 LAB VC2C 25-29 mmol/L CO2 Content 28 LAB O2HBCX 60-85 % Oxyhemoglobin, Willi. 72 LAB CO <2.0 % Carboxyhemoglobin,V 0.9 en LAB METHB 0.4-1.5 % Methemoglobin 0.6 LAB VTMP C Temperature, Body 37.0 LAB VPHTC 7.32-7.42 pH, Temp Corrected 7.32 LAB VPC2T mm Hg pCO2, Temp Correct 52 LAB VPO2T mm Hg pO2, Temp Corrected 46 LAB NAB 135-146 mmol/L Sodium,Whole Bld High 159 LAB KWB 3.5-5.0 mmol/L Potassium, Whole Bld 4.4 LAB HGBB 13.0-17.0 g/dL Low Hemoglobin,Total,AC 8.7 L LAB HCTB 39.0-51.0 % Hematocrit, ACL Low 27 LAB IC 1.08-1.30 mmol/L Calcium, Ion, WB 1.19 LAB GLB 60-105 mg/dL Glucose,Whole Bld High 130 LAB LACT 0.5-2.2 mmol/L Lactate 1.5 Performed By: #### VALLBG #### [facility] [address] [place] [address] SODIUM Collected: 10/14/2017 Status: F Source: [place] 3:42 PM [facility] [place] REPOSITORY TYPE CODE TESTS RESULT OUT OF REFERENCE UNITS RANGE LAB NA 136-144 mmol/L High Sodium 160 Performed By: #### NA #### [facility] [address] [place] [address] GASA + ALL Collected: 10/14/2017 Status: F Source: [place] FOR 3:41 PM [facility] RADIANCE USE ONLY REPOSITORY TYPE CODE TESTS RESULT OUT OF REFERENCE UNITS RANGE LAB PH 7.35-7.45 pH 7.38 LAB PCO2 34-46 mm Hg pCO2 43 LAB PO2 85-95 mm Hg pO2 High 224 LAB BE mmol/L Base Excess 0 LAB HCO3 22-26 mmol/L Bicarbonate 25 LAB CO2CT 22.0-28.0 mmol/L CO2 Content 26 LAB O2HB 95-98 % Oxyhemoglobin, Art. 98 LAB COHB 0-5.0 % Carboxyhemoglobin,A 0.8 rt LAB MHGB 0.4-1.5 % Methemoglobin 0.6 LAB TEMP C Temperature, Body 37.0 LAB PHTC 7.35-7.45 pH, Temp Corrected 7.38 LAB PCO2T 34-46 mm Hg pCO2, Temp Correct 43 LAB PO2T mm Hg pO2, Temp Corrected 224 LAB NAB 135-146 mmol/L Sodium,Whole Bld High 159 LAB KWB 3.5-5.0 mmol/L Potassium, Whole Bld 4.5 LAB HGBB 13.0-17.0 g/dL Low Hemoglobin,Total,AC 9.0 L LAB HCTB 39.0-51.0 % Hematocrit, ACL Low 28 LAB IC 1.08-1.30 mmol/L Calcium, Ion, WB 1.18 LAB GLB 60-105 mg/dL Glucose,Whole Bld High 132 LAB LACT 0.5-2.2 mmol/L Lactate 1.7 Performed By: #### ALLBG #### [facility] [address] [place], [place] [address] XR SURGICAL COUNT -NB Observed: 10/14/2017 Status: F Source: [place] 2:14 PM [facility] REPOSITORY * * *Final Report* * * DATE OF EXAM: Oct 14 2017 2:14PM IVANNA 5393 - XR SURGICAL COUNT -NB / PROCEDURE REASON: R/O fb * * * * Physician Interpretation * * * * HISTORY: . R/O fb. TECHNIQUE: XR SURGICAL COUNT -NB Laterality: Number of different views (projections): 2 COMPARISON: Today RESULT: Median sternotomy with life support devices in proper position. There is no retained surgical instrument identified. CRITICAL TEST/RESULTS: Communicated with Dr. Mckenzie on October 14 at 14:28. IMPRESSION: Negative Silver Wrapper: AMY Transcribe Date/Time: Oct 14 2017 2:25P Dictated by : NORM POLK MD This examination was interpreted and the report reviewed and electronically signed by: NORM POLK MD on Oct 14 2017 2:30PM EST [id number] WOUND Observed: 10/14/2017 Status: F Source: [place] CULTURE/STAIN 2:14 [facility] REPOSITORY Sp. Request/Comment: - Specimen received in sterile container. Smear Result - No organisms seen Few Polymorphonuclear leukocytes Culture Result - No growth 3 days Performed By: #### WCUL #### [place] [phone] Observed: 10/14/2017 Status: F Source: [place] ANAEROBE CULTURE 2:14 [facility] REPOSITORY Culture Result - Negative for anaerobes. Performed By: #### ANACUL #### [place] [phone] Observed: 10/14/2017 Status: F Source: [place] FUNGAL CULT / SMEAR 2:14 [facility] REPOSITORY Smear Result - No fungus seen. Culture Result - No Fungus isolated after 29 days Performed By: #### FCULSM #### [place] [address] Observed: 10/14/2017 Status: F Source: [place] [employer] CULT AND STAIN 2:14 [facility] REPOSITORY Smear Result - No acid fast bacilli seen by fluorochrome stain Culture Result - No Acid Fast Bacilli isolated after 44 days Performed By: #### AFC #### [place] [address] Observed: 10/14/2017 Status: F Source: [place] TISSUE CULT / STAIN 2:09 [facility] REPOSITORY Sp. Request/Comment: - Specimen collected in surgery. Specimen received in sterile saline. Smear Result - No organisms seen No Polymorphonuclear leukocytes Culture Result - No growth 3 days Performed By: #### TISCUL #### [place] [address] Observed: 10/14/2017 Status: F Source: [place] ANAEROBE CULTURE 2:09 PM [facility] REPOSITORY Culture Result - Negative for anaerobes. Performed By: #### ANACUL #### [facility] [address] [place], [place] [address] Observed: 10/14/2017 Status: F Source: [place] FUNGAL CULT / SMEAR 2:09 [facility] REPOSITORY Sp. Request/Comment: - Specimen collected in surgery. Specimen received in sterile saline. Smear Result - No fungus seen. Culture Result - No Fungus isolated after 29 days Performed By: #### FCULSM #### [place] [address] Observed: 10/14/2017 Status: F Source: [place] [employer] CULT AND STAIN 2:09 PM [facility] REPOSITORY Smear Result - No acid fast bacilli seen by fluorochrome stain Culture Result - No Acid Fast Bacilli isolated after 44 days Performed By: #### AFC #### [place] [address] GASA + ALL Collected: 10/14/2017 Status: F Source: [place] FOR 2:01 PM [facility] RADIANCE USE ONLY REPOSITORY TYPE CODE TESTS RESULT OUT OF REFERENCE UNITS RANGE LAB PH 7.35-7.45 pH 7.41 LAB PCO2 34-46 mm Hg pCO2 39 LAB PO2 85-95 mm Hg pO2 High 215 LAB BE mmol/L Base Excess 1 LAB HCO3 22-26 mmol/L Bicarbonate 25 LAB CO2CT 22.0-28.0 mmol/L CO2 Content 26 LAB O2HB 95-98 % Oxyhemoglobin, Art. 97 LAB COHB 0-5.0 % Carboxyhemoglobin, 0.9 Art LAB MHGB 0.4-1.5 % Methemoglobin 1.2 LAB TEMP C Temperature, Body 37.0 LAB PHTC 7.35-7.45 pH, Temp Corrected 7.41 LAB PCO2T 34-46 mm Hg pCO2, Temp Correct 39 LAB PO2T mm Hg pO2, Temp Corrected 215 LAB NAB 135-146 mmol/L Sodium,Whole High Bld 158 LAB KWB 3.5-5.0 mmol/L Potassium, Whole Bld 4.3 LAB HGBB 13.0-17.0 g/dL Low Hemoglobin,Total,A 9.2 CL LAB HCTB 39.0-51.0 % Hematocrit, Low ACL 29 LAB IC 1.08-1.30 mmol/L Calcium, Ion, WB 1.19 LAB GLB 60-105 mg/dL Glucose,Whole High Bld 156 LAB LACT 0.5-2.2 mmol/L Lactate 1.8 LAB ACBDTE Notify Date, Art 20171014 LAB ACBTME Notify Time, Art [id number] Performed By: #### ALLBG #### [facility] [address] [place] [address] BRIEF OP NOT Observed: 10/14/2017 Status: COMPLETED Source: [place] 1:58 PM [facility] REPOSITORY HNO ID: [id number] Author: Aliya Doan (Fel) Service: Cardiac Surgery Author Type: Fellow Type: Brief Op Note Filed: 10/14/2017 2:00 PM Note Text: CARDIOTHORACIC BRIEF OP NOTE LOG ID: [id number] SURGERY/PROCEDURE DATE: 10/14/2017 INCISION/PROCEDURE START TIME: 1309 INCISION CLOSE/PROCEDURE END TIME: SURGEON(S) AND CHISELER HEAD(S): Surgeon(s) and Role: * Arpit Mckenzie - Primary * Aliya Doan (Fel) - Assisting Registered Nurse Spinning Doffer: Jamaal (Herminio) HERMINIO LentzWOOL PRESSER AND ANESTHESIA: Procedure(s) and Anesthesia Type: * EXPLORATION FOR POSTOPERATIVE HEMORRHAGE/THROMBOSIS/INFECTION CHEST - General ANESTHESIA: General BRIEF FINDINGS: chest wash out and closure PREOPERATIVE DIAGNOSIS: chest wash out and closure POSTOPERATIVE DIAGNOSIS: chest wash out and closure ESTIMATED BLOOD LOSS: 50 ml SPECIMENS: sternal wound fluid COMPLICATIONS: None SIGNATURE: Aliya Doan MD PATIENT NAME: Jose Gustafson DATE: October 14, 2017 TIME: 1:58 PM PAGER/CONTACT #: [phone] CASE MANAGEM Observed: 10/14/2017 Status: COMPLETED Source: [place] 1:44 PM [facility] REPOSITORY HNO ID: [id number] Author: Anna Souza Service: Care Management Author Type: Registered Nurse Type: Care Mgt Progress Note Filed: 10/14/2017 1:50 PM Note Text: CARE MANAGEMENT PROGRESS NOTE SERVICE DATE: 10/14/2017 SERVICE TIME: 1:45PM LOS: 7 days Needs Prior to Discharge: To Be Determined Per EMR; 10/08/2017 Total arch replacement with FET under [facility] 10/08/2017 Chest exploration/Evacuation of hematoma / Open chest with wound vac 10/10/2017 Chest opened with wound VAC placement (Attempt closure, but fail due to desaturation) 10/12/2017 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 FIO2 40%. Case Management will continue to follow patient for discharge needs/planning. SIGNATURE: Anna Souza RN PATIENT NAME: Jose Gustafson DATE: October 14, 2017 TIME: 1:45 PM PAGER/CONTACT #: [phone] GASA + ALL Collected: 10/14/2017 Status: F Source: [place] FOR 1:09 PM [facility] USE ONLY REPOSITORY TYPE CODE TESTS RESULT OUT OF REFERENCE UNITS RANGE LAB PH 7.35-7.45 pH 7.43 LAB PCO2 34-46 mm Hg pCO2 37 LAB PO2 85-95 mm Hg pO2 High 216 LAB BE mmol/L Base Excess 0 LAB HCO3 22-26 mmol/L Bicarbonate 24 LAB CO2CT 22.0-28.0 mmol/L CO2 Content 25 LAB O2HB 95-98 % Oxyhemoglobin, Art. 98 LAB COHB 0-5.0 % Carboxyhemoglobin, 1.6 Art LAB MHGB 0.4-1.5 % Methemoglobin 0.6 LAB TEMP C Temperature, Body 37.0 LAB PHTC 7.35-7.45 pH, Temp Corrected 7.43 LAB PCO2T 34-46 mm Hg pCO2, Temp Correct 37 LAB PO2T mm Hg pO2, Temp Corrected 216 LAB NAB 135-146 mmol/L Sodium,Whole High Bld 158 LAB KWB 3.5-5.0 mmol/L Potassium, Whole Bld 4.4 LAB HGBB 13.0-17.0 g/dL Low Hemoglobin,Total,A 9.3 CL LAB HCTB 39.0-51.0 % Hematocrit, Low ACL 29 LAB IC 1.08-1.30 mmol/L Calcium, Ion, WB 1.19 LAB GLB 60-105 mg/dL Glucose,Whole High Bld 141 LAB LACT 0.5-2.2 mmol/L Lactate 1.6 LAB ACBDTE Notify Date, Art [id number] LAB ACBTME Notify Time, Art Performed By: #### ALLBG #### [facility] [address] [place], [place] [address] CONSULT PROG Observed: 10/14/2017 Status: COMPLETED Source: [place] 10:28 AM [facility] REPOSITORY O ID: [id number] Author: Renee Olivo (Pharmacist) Service: Pharmacy Author Type: Pharmacist Type: Consult Progress Note Filed: 10/14/2017 3:16 PM Note Text: PHARMACY VANCOMYCIN DOSING NOTE Patient Name: Jose Gustafson Admission Date: 10/07/2017 Date of Consult: 10/14/2017 Time of Consult: 10:28 AM Indication: Source Unknown; empiric Goal Range: 10-20 mcg/mL RECOMMENDATIONS/PLAN: Pharmacy consulted for vancomycin dosing for Jose Gustafson, a 52 year old, male who is being treated with vancomycin for empiric coverage/open chest. 1. Patient is currently ordered Vancomycin 1.25 g IV q24h. Today is day 7 of therapy. 2. The most recent vancomycin level was 10.9 mcg/mL drawn at 0828 on 10/11. This is a 36 hour level on the 4 day of therapy. 3. The present dose of vancomycin is the recommended dosage for this patient at this time. Continue therapy as prescribed. 4. The next vancomycin level will be ordered for 10/16 unless clinically indicated sooner. (Pharmacy will order) We will follow patient renal function, vancomycin levels and doses with you during the course of therapy. Additional recommendations will appear in follow up notes. If you have any questions, please contact Renee Olivo, Pharmacist at pager [phone]. Age: [age] year old Allergies: ALLERGIES Allergen Reactions - Cats - Grass Pollen Itching Last 3 Encounter Wt Readings: Date: Wt: 10/07/2017 90.9 kg (200 lb 6.4 oz) 09/07/2017 84.6 kg (186 lb 6.4 oz) 08/24/2017 83.5 kg (184 lb) Last 1 Encounter Ht Readings: Date: Ht: 10/07/2017 182.9 cm (6') CrCl: 48.8 mL/min Temp (24hrs), Av.6 ?C (101.5 ?F), Min:38.4 ?C (101.1 ?F), Max:39 ?C (102.2 ?F) - Current Temp: 38.4 ?C (101.1 ?F) Labs BUN (mg/dL) Date Value 10/14/2017 45 (H) 10/13/2017 33 (H) 10/12/2017 30 (H) Creatinine (mg/dL) Date Value 10/14/2017 1.92 (H) 10/13/2017 1.71 (H) 10/12/2017 1.63 (H) WBC (k/uL) Date Value 10/14/2017 9.35 10/13/2017 8.80 10/12/2017 12.16 (H) Vancomycin Levels: Vancomycin, result (ug/mL) Date Value 10/11/2017 10.9 10/09/2017 13.6 Lynda Pal (Metal Template Maker) Renee Olivo, Pharmacist GASV + ALL Collected: 10/14/2017 Status: F Source: [place] 10:21 AM [facility] REPOSITORY TYPE CODE TESTS RESULT OUT OF REFERENCE UNITS RANGE LAB VPH 7.32-7.42 pH 7.42 LAB VPC2 42-55 mm Hg pCO2 Low 38 LAB VPO2 35-45 mm Hg pO2 36 LAB VBE mmol/L Base Excess 0 LAB VHC3 24-28 mmol/L Bicarbonate 24 LAB VC2C 25-29 mmol/L CO2 Content 26 LAB O2HBCX 60-85 % Oxyhemoglobin, Willi. 64 LAB CO <2.0 % Carboxyhemoglobin, 1.6 Willi LAB METHB 0.4-1.5 % Methemoglobin 0.7 LAB VTMP C Temperature, Body 37.0 LAB VPHTC 7.32-7.42 pH, Temp Corrected 7.42 LAB VPC2T mm Hg pCO2, Temp Correct 38 LAB VPO2T mm Hg pO2, Temp Corrected 36 LAB NAB 135-146 mmol/L Sodium,Whole High Bld 158 LAB KWB 3.5-5.0 mmol/L Potassium, Whole Bld 3.8 LAB HGBB 13.0-17.0 g/dL Low Hemoglobin,Total,A 8.7 CL LAB HCTB 39.0-51.0 % Hematocrit, Low ACL 27 LAB IC 1.08-1.30 mmol/L Calcium, Ion, WB 1.14 LAB GLB 60-105 mg/dL Glucose,Whole High Bld 129 LAB LACT 0.5-2.2 mmol/L Lactate 1.6 LAB VCBDTE Notify Date, Willi [id number] LAB VCBTME Notify Time, Willi [id number] Performed By: #### VALLBG #### [facility] [address] [place], [place] [address] GASA + ALL Collected: 10/14/2017 Status: F Source: [place] FOR 10:17 AM [facility] RADIANCE USE ONLY REPOSITORY TYPE CODE TESTS RESULT OUT OF REFERENCE UNITS RANGE LAB PH 7.35-7.45 pH High 7.46 LAB PCO2 34-46 mm Hg pCO2 35 LAB PO2 85-95 mm Hg pO2 High 97 LAB BE mmol/L Base Excess 1 LAB HCO3 22-26 mmol/L Bicarbonate 24 LAB CO2CT 22.0-28.0 mmol/L CO2 Content 25 LAB O2HB 95-98 % Oxyhemoglobin, Art. 96 LAB COHB 0-5.0 % Carboxyhemoglobin, 1.7 Art LAB MHGB 0.4-1.5 % Methemoglobin 0.5 LAB TEMP C Temperature, Body 37.0 LAB PHTC 7.35-7.45 pH, Temp High Corrected 7.46 LAB PCO2T 34-46 mm Hg pCO2, Temp Correct 35 LAB PO2T mm Hg pO2, Temp Corrected 97 LAB NAB 135-146 mmol/L Sodium,Whole High Bld 158 LAB KWB 3.5-5.0 mmol/L Potassium, Whole Bld 4.1 LAB HGBB 13.0-17.0 g/dL Low Hemoglobin,Total,A 9.3 CL LAB HCTB 39.0-51.0 % Hematocrit, Low ACL 29 LAB IC 1.08-1.30 mmol/L Calcium, Ion, WB 1.17 LAB GLB 60-105 mg/dL Glucose,Whole High Bld 138 LAB LACT 0.5-2.2 mmol/L Lactate 1.7 LAB ACBDTE Notify Date, Art [id number] LAB ACBTME Notify Time, Art [id number] Performed By: #### ALLBG #### [facility] [address] [place], [place] [address] SODIUM Collected: 10/14/2017 Status: F Source: [place] 10:13 AM [facility] REPOSITORY TYPE CODE TESTS RESULT OUT OF REFERENCE UNITS RANGE LAB NA 136-144 mmol/L High Sodium 160 Performed By: #### NA #### [facility] [address] [place], [place] [address] PROGRESS Observed: 10/14/2017 Status: COMPLETED Source: [place] 8:36 AM [facility] REPOSITORY HNO ID: [id number] Author: Niurka Reid) Handshoe Service: Neurology Author Type: Resident Type: Progress Notes Filed: 10/14/2017 11:40 AM Note Text: CONSULT PROGRESS NOTE NEURO STROKE SERVICE DATE: 10/14/2017 SERVICE TIME: 0836 Subjective INTERVAL HISTORY: PT now off pressors and propofol. Exam remains poor. Na 156 MEDICATIONS Current hospital medications: sodium chloride 3 % infusion INTRAVENOUS CONTINUOUS levETIRAcetam 750 mg in NaCl 0.9% 100 mL (KEPPRA) 750 mg INTRAVENOUS BID vancomycin 1.25 g in D5W 250 mL (VANCOCIN) 1.25 g INTRAVENOUS q 24 HR furosemide 500 mg in empty bottle 50 mL IV infusion (LASIX) 5 mg/hr INTRAVENOUS CONTINUOUS epoprostenol INHALATION 30,000 ng/mL in 0.9% NaCl 50 mL (VELETRI) 0.01-0.05 mcg/kg/min (Cashion) INHALATION CONTINUOUS PHENYLephrine 80 mg in D5W 250 mL (NEOSYNEPHRINE) 25-200 mcg/min INTRAVENOUS CONTINUOUS Chlorhexidine Gluconate 0.12 % 15 mL (PERIDEX) 15 mL ORAL q [address] 20 mg tab(s) (PROTONIX) 20 mg ORAL DAILY (6 AM) pantoprazole 20 mg CUP (PROTONIX) 20 mg ORAL/FEEDING TUBE DAILY (6 AM) senna-docusate 8.6-50 mg 1 tablet (SENNA-S) 1 tablet ORAL BID bisacodyl 10 mg suppository (DULCOLAX) 10 mg RECTAL DAILY PRN ondansetron (PF) 4 mg injection (ZOFRAN) 4 mg INTRAVENOUS q 6 H PRN potassium chloride iv piggyback 10 mEq/100mL 10 mEq INTRAVENOUS PRN potassium chloride iv piggyback 20 mEq/50 mL 20 mEq INTRAVENOUS PRN potassium chloride 40-120 mEq oral powder (KLOR-CON) 40-120 mEq ORAL/FEEDING TUBE PRN 0.9% NaCl 3-5 mL 3-5 mL INTRAVENOUS q 12 H 0.9% NaCl 10 mL 10 mL INTRAVENOUS q 12 H insulin regular human iv bolus 2-10 Units 2-10 Units INTRAVENOUS PRN insulin regular 250 units in NaCl 0.9% 250 mL iv infusion - HVI CVICU NOMOGRAM 0.5-40 Units/hr INTRAVENOUS CONTINUOUS dextrose 50% in water 25 mL syringe 12.5 g INTRAVENOUS PRN dextrose 5% in NaCl 0.2% iv infusion 5 mL/hr INTRAVENOUS CONTINUOUS insulin glargine 0-40 Units pen (long acting) (LANTUS SOLOSTAR, BASAGLAR) 0-40 Units SUBCUTANEOUS As Directed nitroglycerin 50 mg in D5W 250 mL 5-200 mcg/min INTRAVENOUS CONTINUOUS nitroglycerin injection 100 mcg injection syringe 100 mcg INTRAVENOUS PRN PHENYLephrine 0.1 mg injection 100 mcg INTRAVENOUS PRN fentaNYL FREIGHT AND PASSENGER AGENT 20 mcg/mL in NaCl 0.9% 100 mL INTRAVENOUS CONTINUOUS naloxone 0.04 mg injection (NARCAN) 0.04 mg INTRAVENOUS PRN lidocaine 5 % 1 Patch (LIDODERM) 1 Patch TRANSDERMAL DAILY lidocaine patch - REMOVE OTHER AT BEDTIME lidocaine - VERIFY PATCH OTHER q 8 H fentaNYL 50 mcg/mL 25-75 mcg injection (SUBLIMAZE) 25-75 mcg INTRAVENOUS q 1 H PRN acetaminophen 650 mg tab(s) (TYLENOL) 650 mg ORAL/FEEDING TUBE q 4 H PRN oxyCODONE IR 5-10 mg tab(s) (ROXICODONE) 5-10 mg ORAL/FEEDING TUBE q 6 H PRN propofol infusion (DIPRIVAN) 10-50 mcg/kg/min (Order-Specific) INTRAVENOUS CONTINUOUS propofol iv bolus 10-50 mg (DIPRIVAN) 10-50 mg INTRAVENOUS q 1 H PRN vasopressin 20 units in D5W 100 mL (VASOSTRICT) 0.01-0.1 Units/min INTRAVENOUS CONTINUOUS NORepinephrine 4 mg in D5W 250 mL (LEVOPHED) 0.6-20 mcg/min INTRAVENOUS CONTINUOUS fentaNYL iv infusion 20 mcg/mL in NaCl 0.9% 100 mL 25-250 mcg/hr INTRAVENOUS CONTINUOUS ciprofloxacin 400 mg in D5W 200 mL (CIPRO) 400 mg INTRAVENOUS q 12 HR vancomycin dosing and monitoring per pharmacy OTHER As Directed EPINEPHrine iv infusion 4 mg in D5W 250 mL 0.5-4 mcg/min INTRAVENOUS CONTINUOUS albuterol 2.5 mg /3 mL (0.083 %) 2.5 mg (PROVENTIL) 2.5 mg INHALATION QID budesonide 1 mg/2 mL 1 mg nebulizer suspension (PULMICORT) 1 mg INHALATION BID Objective PHYSICAL EXAM Vital Signs: BP 152/83 Pulse 90 Temp 38.4 ?C (101.1 ?F) (Core) Resp 30 Ht 182.9 cm (6') Wt 90.9 kg (200 lb 6.4 oz) SpO2 98% BMI 27.18 kg/m2 NEUROLOGICAL: LOC: 3 - reflex responses or unarousable 3 LOC Questions: 2 - none correct 2 LOC Commands: 2 - neither correct 2 LOC Normal Gaze: 0 - normal gaze 0 Visual Helms: 0 - no visual loss 0 Facial Palsy: 0 - normal 0 Motor Left Arm: 4 - no movement at all 4 Motor Right Arm: 4 - no movement at all 4 Motor Left Le - no movement at all 4 Motor Right Le - no movement at all 4 Limb Ataxia: 0 - no ataxia (or aphasic, hemiplegic) 0 Sensory: 2 - total loss, patient unaware of touch. coma, bilateral loss 2 Language: 3 - mute, global aphasia, coma 3 Dysarthria: X - intubation or mech barrier X Extinction/Neglect: 0 - normal, none detected (or visual loss alone) 0 Total Daily NIHSS: 28 (10/14/17 0844 : Niurka (Res) Handshoe) 28 MENTAL STATUS: Intubated, eyes spont open. No command following CRANIAL NERVES:primary gaze, Corneal intact, No blink to threat, PERRL, Face symmetric, No gag, + Cough intact MOTOR:No spont movement today. No w/drawal to nox stim DATA: Diagnostic tests reviewed for today's visit: Lipids, HbA1c, CMP, CBC, Coags Recent Labs 10/14/17 0824 10/14/17 0818 10/14/17 0636 10/14/17 0635 10/14/17 0550 10/14/17 0440 10/14/17 0230 10/13/17 2250 10/13/17 0007 10/12/17 0830 10/12/17 0100 10/11/17 1940 NA -- -- -- -- 161* -- -- 159* -- 159* -- 148* -- -- -- 137 < > -- K -- -- -- -- -- -- -- 3.7 -- -- -- 3.9 -- -- -- 4.4 -- -- CHLOR -- -- -- -- -- -- -- 119* -- -- -- 110* -- -- -- 96* -- -- CO2 26 -- -- 28 -- 28 < > 24 < > -- < > 28 < > -- < > 28 < > -- BUN -- -- -- -- -- -- -- 45* -- -- -- 33* -- -- -- 30* -- -- CREAT -- -- -- -- -- -- -- 1.92* -- -- -- 1.71* -- -- -- 1.63* -- -- GLUC -- -- -- -- -- -- -- 121* -- -- -- 108* -- -- -- 109* -- -- IC 1.12 1.14 1.17 1.18 -- 1.15 < > -- < > -- < > -- < > -- < > -- < > -- CA -- -- -- -- -- -- -- 8.3* -- -- -- 8.1* -- -- -- 7.9* -- -- WBC -- -- -- -- -- -- -- 9.35 -- -- -- 8.80 -- 12.16* -- 12.49* < > -- HB -- -- -- -- -- -- -- 9.2* -- -- -- 8.7* -- 11.3* -- 11.2* < > -- HCT -- -- -- -- -- -- -- 29.0* -- -- -- 27.0* -- 34.9* -- 33.6* < > -- PLT -- -- -- -- -- -- -- 145* -- -- -- 137* -- 106* -- 103* < > -- INR -- -- -- -- -- -- -- 1.3 -- -- -- -- -- 1.2 -- -- -- 1.2 APTT -- -- -- -- -- -- -- 29.9 -- -- -- -- -- 36.1* -- -- -- 36.1* < > = values in this interval not displayed. Cardiac Enzymes No new significant results Most recent labs and imaging results. MEDICAL EVENTS: No medical events have been recorded. STROKE 9 CARE AND PREVENTION CHECKLIST 1. Is the patient currently on an ANTITHROMBOTIC medication (Antiplatelet or Anticoagulant): Aspirin 2. Does the patient have known AFIB/FLUTTER: No 3. Is the patient on a STATIN: None Reason for no statin: (not a primary patient) 4. Is the patient on VTE prophylaxis: Pharmacological prophylaxis;Mechanical prophylaxis Mechanical intervention type: Intermittent compression stocking(s) 5. GLYCEMIC Control Medications: Not Diabetic 6. Stroke BP Goals: <180/105 Stroke BP Control: BP well controlled 7. 8. TEMPERATURE Control: Normothermic 9. Does the patient need THERAPY: Yes Therapy involvement: PT;OT;ST Stroke Care and Prevention (personally reviewed by Niurka Freedman DO): Daily Rounding Date: 10/14/17 Daily Rounding Time: 0845 PROBLEM LIST: Principal Problem: Dissection of thoracic aorta (HCC) POA: Unknown Active Problems: Asthma POA: Yes Atelectasis POA: Unknown Hypoxia POA: Unknown Acute respiratory insufficiency, postoperative POA: Unknown Postoperative hypotension POA: No Cardiac insufficiency (HCC) POA: Yes Pain, postoperative, acute POA: No Acute ischemic right MCA stroke (HCC) POA: No Cerebral edema (HCC) POA: No Acute kidney injury (HCC) POA: Unknown Moderate protein-calorie malnutrition (HCC) POA: Unknown Acute blood loss anemia POA: Unknown Resolved Problems: Aortic dissection (HCC) POA: Yes Lactic acid acidosis POA: Unknown Coagulopathy (HCC) POA: Unknown Impression/Recommendations 52yo male w/ hx of htn admitted on 10/07 found to have 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 Pt maintained on multiple pressors. 2clot called for L sided weakness w/ LKW 1700 on 10/10/17. iNIHSS 25. CTH w/ hypodensity in RMCA distribution. Stroke Mechanism Stroke Mechanism - LIP ENTRY ONLY Ischemic Stroke or TIA: Ischemic Stroke TOAST Mechanism ([facility]F-MODIFIED): Stroke of Other Determined Etiology Stroke of Other Determined Etiology: Dissection Total Daily NIHSS: 28 PLAN # RMCA Ischemic Stroke w/ malignant Cerebral Edema - Etiology likely embolic 2/2 to dissection - rCTH 1600 10/11: Unchanged RMCA stroke w/ assoc mass effect - TCD w/ asymmetry in mean flow velocities within the bilateral MCAs with right being significantly lower than left. - Carotid Duplex: 0-19% stenosis b/l - s/p R Hemicraniectomy Plan - Cont ASA - Permissive hypertension as able per CTS service - repeat CTH wo contrast today # Hypernatremia - Off 3% now Plan - Allow Na to start normalizing. - Continue checking Na q4h. Do not allow Na to go below 150 today to avoid CPM SIGNATURE: Niurka Freedman DO PATIENT NAME: Jose Gustafson DATE: October 14, 2017 TIME: 8:36 AM PAGER/CONTACT #: [phone] GASV + ALL Collected: 10/14/2017 Status: F Source: [place] 8:[facility] REPOSITORY TYPE CODE TESTS RESULT OUT OF REFERENCE UNITS RANGE LAB VPH 7.32-7.42 pH 7.42 LAB VPC2 42-55 mm Hg pCO2 Low 39 LAB VPO2 35-45 mm Hg pO2 41 LAB VBE mmol/L Base Excess 1 LAB VHC3 24-28 mmol/L Bicarbonate 25 LAB VC2C 25-29 mmol/L CO2 Content 26 LAB O2HBCX 60-85 % Oxyhemoglobin, Willi. 66 LAB CO <2.0 % Carboxyhemoglobin, 1.1 Willi LAB METHB 0.4-1.5 % Methemoglobin Low 0.0 LAB VTMP C Temperature, Body 37.0 LAB VPHTC 7.32-7.42 pH, Temp Corrected 7.42 LAB VPC2T mm Hg pCO2, Temp Correct 39 LAB VPO2T mm Hg pO2, Temp Corrected 41 LAB NAB 135-146 mmol/L Sodium,Whole High Bld 156 LAB KWB 3.5-5.0 mmol/L Potassium, Whole Bld 3.7 LAB HGBB 13.0-17.0 g/dL Low Hemoglobin,Total,A 8.7 CL LAB HCTB 39.0-51.0 % Hematocrit, Low ACL 27 LAB IC 1.08-1.30 mmol/L Calcium, Ion, WB 1.12 LAB GLB 60-105 mg/dL Glucose,Whole High Bld 141 LAB LACT 0.5-2.2 mmol/L Lactate 1.5 LAB VCBDTE Notify Date, Willi [id number] LAB VCBTME Notify Time, Willi Performed By: #### VALLBG #### [facility] [address] [place], [place] [address] GASA + ALL Collected: 10/14/2017 Status: F Source: [place] FOR 8:18 AM [facility] RADIANCE USE ONLY REPOSITORY TYPE CODE TESTS RESULT OUT OF REFERENCE UNITS RANGE LAB PH 7.35-7.45 pH 7.45 LAB PCO2 34-46 mm Hg pCO2 36 LAB PO2 85-95 mm Hg pO2 High 96 LAB BE mmol/L Base Excess 1 LAB HCO3 22-26 mmol/L Bicarbonate 25 LAB CO2CT 22.0-28.0 mmol/L CO2 Content 26 LAB O2HB 95-98 % Oxyhemoglobin, Art. 97 LAB COHB 0-5.0 % Carboxyhemoglobin, 1.0 Art LAB MHGB 0.4-1.5 % Methemoglobin Low 0.2 LAB TEMP C Temperature, Body 37.0 LAB PHTC 7.35-7.45 pH, Temp Corrected 7.45 LAB PCO2T 34-46 mm Hg pCO2, Temp Correct 36 LAB PO2T mm Hg pO2, Temp Corrected 96 LAB NAB 135-146 mmol/L Sodium,Whole High Bld 156 LAB KWB 3.5-5.0 mmol/L Potassium, Whole Bld 3.9 LAB HGBB 13.0-17.0 g/dL Low Hemoglobin,Total,A 9.5 CL LAB HCTB 39.0-51.0 % Hematocrit, Low ACL 29 LAB IC 1.08-1.30 mmol/L Calcium, Ion, WB 1.14 LAB GLB 60-105 mg/dL Glucose,Whole High Bld 150 LAB LACT 0.5-2.2 mmol/L Lactate 1.6 LAB ACBDTE Notify Date, Art [id number] LAB ACBTME Notify Time, Art [id number] Performed By: #### ALLBG #### [facility] [address] [place], [place] [address] PROGRESS Observed: 10/14/2017 Status: COMPLETED Source: [place] 7:55 AM [facility] REPOSITORY HNO ID: [id number] Author: Ariane Tovar Service: Critical Care Author Type: Anesthesiologist Type: Progress Notes Filed: 10/14/2017 9:05 AM Note Text: [facility] Progress Note Name: Jose Gustafson COORDINATION OF CARE NOTE: Indication for Surgery: Spontaneous Rupture of Aorta LVEF: Normal RVF: Normal Important/Relevant PMH/PSH: HTN, asthma, hx kidney stones Preoperative Hospital Course (narrative): 52 yo M with PMH HTN, Asthma, and hx of kidney stones who is transferred to [facility] for 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 Hypotension, cardiac insufficiency on norepinephrine, vasopressin, and epoprostenol. Returned to OR 10/08 for exploration and large amount of clots were removed but no active bleeding. Chest closure attempted 10/10 but failed 2/2 desaturation. Early AM 10/11 2 CLOT for left sided weakness. CTH with large large right MCA infarct with associated mass effect. Repeat imaging with evolution of R MCA infarct with increased edema now s/p right decompressive hemicraniectomy per Neurosurgery on 10/12. Issues to communicate at signout: OPEN CHEST - plan for closure 10/14 New RT sided MCA CVA s/p right decompressive hemicraniectomy: Continue 3% for cerebral edema, maintain Na 145-155; keppra 750 mg bid x 2 weeks per neuro: okay to resume ASA 10/13; SQH 10/04 - on hold until after chest closure OTHER PROBLEMS I MANAGED DURING THIS ENCOUNTER: Problem Acute Respiratory Insufficiency, Postoperative A/p - remains on full ventilatory support 2/ open chest, right hemicraniectomy. Remains hypoxic on increased fio2 AND peep. CXR with atelectasis and increased vascular markings. Remains on epoprostenol. Continue diuresis for volume control. 10/14/2017 will wean veletri after chest closure Cardiac Insufficiency (Hcc) A/p - Improved CI and hemodynamics after chest washout; continue epi for CI > 2.2 . 10/14/2017 small dose of EPI, will wean for CI > 2.2 Acute Ischemic Right Mca Stroke (Hcc) New L sided weakness 10/11; CTH with large R MCA infarct with associated mass effect. Repeat imaging with evolution of R MCA infarct with increased edema 10/12/2017 - Right decompressive hemicraniectomy for R MCA stroke and malignant cerebral edema A/p - continue hypertonic saline for goal Na 145-155 - resume ASA after chest closure; - Permissive hypertension as able; goal map >80 - keppra 750 mg bid x 2 weeks 10/14/2017 S/p decompressing craniotomy last saturday Moderate Protein-Calorie Malnutrition (Hcc) A/p - corpak attempted x 2, unsuccessful. Will consult procedure team for assistance after chest closure. 10/14/2017 will try again today and consult GI if not successful Acute Blood Loss Anemia Has required 13u pRBCs thus far A/p - continue to trend H/H; transfuse Hct > 30% 10/14/2017 will monitor SUBJECTIVE INTERVAL HISTORY: No acute events PERTINENT REVIEW OF SYSTEMS: See Assessment and Plan. Remaining ROS reviewed and negative. PHYSICAL EXAM AND PERTINENT DATA: Infusions: Epinephrine Insulin Vital Signs: BP 152/83 Pulse 89 Temp 38.4 ?C (101.1 ?F) (Core) Resp 30 Ht 182.9 cm (6') Wt 90.9 kg (200 lb 6.4 oz) SpO2 95% BMI 27.18 kg/m2 Neuro: Unresponsive Cardiovascular: Rhythm: regular rate and rhythm MAP: 89 mm Hg CVP: 2 mm Hg PAP: 28/7 mm Hg Cardiac Index: 3.1 L/min/m2 Pulmonary: Breath sounds equal, Diminished breath sounds, bases, pinky and open chest Ventilator: Intubated: SPCV; FiO2: 40%; PEEP: 14; Not ready for weaning; HOB elevated 40 degrees: Yes; Oral care with chlorhexidine: Yes; Was sedation turned off? Yes Recent Labs 10/14/17 0636 10/14/17 0635 10/14/17 0440 10/14/17 0437 10/14/17 0244 PH 7.45 -- -- 7.46* -- 7.45 PCO2 36 -- -- 35 -- 36 PO2 109* -- -- 108* -- 103* HCO3 25 -- -- 24 -- 25 O2HB 98 -- -- 98 -- 96 LACT 1.6 1.6 1.5 1.6 < > 1.6 < > = values in this interval not displayed. CXR Findings: Atelectasis Bilateral and CXR personally viewed and interpreted by ICU staff Physician Gastrointestinal: Abdominal: Soft, Non-tender and Bowel sounds no Recent Labs 10/14/17 0230 10/13/17 0007 10/12/17 0100 TPROT 6.2* 5.7* 5.5* ALB 3.4* 3.1* 2.7* ALKPHOS 63 71 74 TBILI 6.5* 4.0* 3.1* AST 76* 95* 145* ALT 125* 183* 275* Heme: Recent Labs 10/14/17 0230 10/13/17 0007 10/12/17 0830 WBC 9.35 8.80 12.16* HB 9.2* 8.7* 11.3* HCT 29.0* 27.0* 34.9* PLT 145* 137* 106* Recent Labs 10/14/17 0230 10/12/17 0830 10/11/17 1940 PTSEC 13.0 12.0 12.1 INR 1.3 1.2 1.2 APTT 29.9 36.1* 36.1* Endocrine: Renal: Stable Intake/Output Summary (Last 24 hours) at 10/14/17 0659 Last data filed at 10/14/17 0630 Gross per 24 hour Intake 3922 ml Output 5620 ml Net -1698 ml Recent Labs 10/14/17 0635 10/14/17 0550 10/14/17 0440 10/14/17 0248 10/14/17 0230 10/13/17 2250 10/13/17 0007 10/12/17 0100 NA -- 161* -- -- 159* -- 159* -- 148* -- 137 K -- -- -- -- 3.7 -- -- -- 3.9 -- 4.4 CHLOR -- -- -- -- 119* -- -- -- 110* -- 96* CO2 28 -- 28 27 24 < > -- < > 28 < > 28 BUN -- -- -- -- 45* -- -- -- 33* -- 30* CREAT -- -- -- -- 1.92* -- -- -- 1.71* -- 1.63* GLUC -- -- -- -- 121* -- -- -- 108* -- 109* < > = values in this interval not displayed. Recent Labs 10/14/17 0230 10/13/17 0007 10/12/17 0100 CA 8.3* 8.1* 7.9* Drug Blood Levels: Recent Labs 10/11/17 0828 VANCORA 10.9 I have discussed the case and the plan and management of the patient's care with the primary surgical team and consulting services, the bedside nurse and the respiratory therapist. SIGNATURE: Ariane Tovar MD DATE of SERVICE: 10/14/2017 TIME of SERVICE: 7:55 AM I gave my full attention and provided critical care time for 32 minutes, exclusive of separately billable procedures and treating other patients. I examined the patient and directed decision making. This was necessary to treat or prevent imminent deterioration of the following condition(s) Respiratory failure and Central nervous system failure or compromise. S/p Arch replacement complicated by Right MCA CVA requiring decompression craniotomy during the weekend vent dependent, unable to wean, chest still open on veletri for hypoxemia improved will wean after chest closure open chest poss closure today nutrition NPO for now, corpak after chest closure hypernatremia will monitor acute blood loss anemia will monitor Ariane Tovar MD 10/14/2017 8:59 AM CONSULT PROG Observed: 10/14/2017 Status: COMPLETED Source: [place] 7:30 AM [facility] REPOSITORY HNO ID: [id number] Author: Cirilo De La Cruz Service: Neurosurgery Author Type: Resident Type: Consult Progress Note Filed: 10/14/2017 8:41 AM Note Text: Neurosurgery Progress Note: Jose Gustafson [id number] S: FLORENTINO O: 10/14/17 0530 10/14/17 0550 10/14/17 0610 10/14/17 0630 BP: Pulse: 89 89 89 89 Resp: Temp: TempSrc: SpO2: 95% 95% 95% 95% Weight: Height: Exam: E1 V1T M1 PERRL + weak corneals + weak cough Flap full, but soft Drain bloody A/P: 52 y/o M s/p: 10/12 decompressive R hemicraniectomy - neuro stable - Plan to remove drain today - sodium goals per NICU, stroke neurology - keppra 750 mg bid x 2 weeks (to 10/26/17) - okay for ASA 81 mg - HOB elevated - SCDs, ok for SQH today - We will follow peripherally. Sutures/alvina to be removed on POD14 (10/26/17). Please page us if still in house at that point. - Patient will need helmet eventually when out of bed. Please contact orthotics when appropriate for helmet delivery Rest per primary Cirilo De La Cruz MD PGY-2, Neurosurgery October 14, 2017 7:32 AM Pager [phone] Page [phone] after 6 pm and on weekends GASA + ALL Collected: 10/14/2017 Status: F Source: [place] FOR 6:36 AM [facility] RADIANCE USE ONLY REPOSITORY TYPE CODE TESTS RESULT OUT OF REFERENCE UNITS RANGE LAB PH 7.35-7.45 pH 7.45 LAB PCO2 34-46 mm Hg pCO2 36 LAB PO2 85-95 mm Hg pO2 High 109 LAB BE mmol/L Base Excess 1 LAB HCO3 22-26 mmol/L Bicarbonate 25 LAB CO2CT 22.0-28.0 mmol/L CO2 Content 26 LAB O2HB 95-98 % Oxyhemoglobin, Art. 98 LAB COHB 0-5.0 % Carboxyhemoglobin,A 1.4 rt LAB MHGB 0.4-1.5 % Methemoglobin Low 0.0 LAB TEMP C Temperature, Body 37.0 LAB PHTC 7.35-7.45 pH, Temp Corrected 7.45 LAB PCO2T 34-46 mm Hg pCO2, Temp Correct 36 LAB PO2T mm Hg pO2, Temp Corrected 109 LAB NAB 135-146 mmol/L Sodium,Whole Bld High 157 LAB KWB 3.5-5.0 mmol/L Potassium, Whole Bld 4.5 LAB HGBB 13.0-17.0 g/dL Low Hemoglobin,Total,AC 9.2 L LAB HCTB 39.0-51.0 % Hematocrit, ACL Low 29 LAB IC 1.08-1.30 mmol/L Calcium, Ion, WB 1.17 LAB GLB 60-105 mg/dL Glucose,Whole Bld High 133 LAB LACT 0.5-2.2 mmol/L Lactate 1.6 Performed By: #### ALLBG #### [facility] [address] [place], [place] [address] GASV + ALL Collected: 10/14/2017 Status: F Source: [place] 6:35 AM [facility] REPOSITORY TYPE CODE TESTS RESULT OUT OF REFERENCE UNITS RANGE LAB VPH 7.32-7.42 pH 7.42 LAB VPC2 42-55 mm Hg pCO2 Low 41 LAB VPO2 35-45 mm Hg pO2 38 LAB VBE mmol/L Base Excess 2 LAB VHC3 24-28 mmol/L Bicarbonate 26 LAB VC2C 25-29 mmol/L CO2 Content 28 LAB O2HBCX 60-85 % Oxyhemoglobin, Willi. 67 LAB CO <2.0 % Carboxyhemoglobin,V 1.7 en LAB METHB 0.4-1.5 % Methemoglobin 0.7 LAB VTMP C Temperature, Body 37.0 LAB VPHTC 7.32-7.42 pH, Temp Corrected 7.42 LAB VPC2T mm Hg pCO2, Temp Correct 41 LAB VPO2T mm Hg pO2, Temp Corrected 38 LAB NAB 135-146 mmol/L Sodium,Whole Bld High 159 LAB KWB 3.5-5.0 mmol/L Potassium, Whole Bld 4.6 LAB HGBB 13.0-17.0 g/dL Low Hemoglobin,Total,AC 9.5 L LAB HCTB 39.0-51.0 % Hematocrit, ACL Low 30 LAB IC 1.08-1.30 mmol/L Calcium, Ion, WB 1.18 LAB GLB 60-105 mg/dL Glucose,Whole Bld High 120 LAB LACT 0.5-2.2 mmol/L Lactate 1.6 Performed By: #### VALLBG #### [facility] [address] [place], [place] [address] SODIUM Collected: 10/14/2017 Status: F Source: [place] 5:50 AM [facility] REPOSITORY TYPE CODE TESTS RESULT OUT OF REFERENCE UNITS RANGE LAB NA 136-144 mmol/L High Sodium 161 Result Comment: Called to and read back by: Justine [phone] 10/14/17 0738 BBlum Performed By: #### NA #### [place] [id number] [place] [id number] GASV + ALL Collected: 10/14/2017 Status: F Source: [place] 4:40 AM [facility] REPOSITORY TYPE CODE TESTS RESULT OUT OF REFERENCE UNITS RANGE LAB VPH 7.32-7.42 pH 7.42 LAB VPC2 42-55 mm Hg pCO2 Low 41 LAB VPO2 35-45 mm Hg pO2 41 LAB VBE mmol/L Base Excess 2 LAB VHC3 24-28 mmol/L Bicarbonate 26 LAB VC2C 25-29 mmol/L CO2 Content 28 LAB O2HBCX 60-85 % Oxyhemoglobin, Willi. 69 LAB CO <2.0 % Carboxyhemoglobin,V 1.5 en LAB METHB 0.4-1.5 % Methemoglobin Low 0.0 LAB VTMP C Temperature, Body 37.0 LAB VPHTC 7.32-7.42 pH, Temp Corrected 7.42 LAB VPC2T mm Hg pCO2, Temp Correct 41 LAB VPO2T mm Hg pO2, Temp Corrected 41 LAB NAB 135-146 mmol/L Sodium,Whole Bld High 157 LAB KWB 3.5-5.0 mmol/L Potassium, Whole Bld 3.8 LAB HGBB 13.0-17.0 g/dL Low Hemoglobin,Total,AC 9.1 L LAB HCTB 39.0-51.0 % Hematocrit, ACL Low 28 LAB IC 1.08-1.30 mmol/L Calcium, Ion, WB 1.15 LAB GLB 60-105 mg/dL Glucose,Whole Bld High 137 LAB LACT 0.5-2.2 mmol/L Lactate 1.5 Performed By: #### VALLBG #### [facility] [address], [place] [address] GASA + ALL Collected: 10/14/2017 Status: F Source: [facility] 4:37 AM [facility] USE ONLY REPOSITORY TYPE CODE TESTS RESULT OUT OF REFERENCE UNITS RANGE LAB PH 7.35-7.45 pH High 7.46 LAB PCO2 34-46 mm Hg pCO2 35 LAB PO2 85-95 mm Hg pO2 High 108 LAB BE mmol/L Base Excess 1 LAB HCO3 22-26 mmol/L Bicarbonate 24 LAB CO2CT 22.0-28.0 mmol/L CO2 Content 25 LAB O2HB 95-98 % Oxyhemoglobin, Art. 98 LAB COHB 0-5.0 % Carboxyhemoglobin,A 1.9 rt LAB MHGB 0.4-1.5 % Methemoglobin Low 0.0 LAB TEMP C Temperature, Body 37.0 LAB PHTC 7.35-7.45 pH, Temp High Corrected 7.46 LAB PCO2T 34-46 mm Hg pCO2, Temp Correct 35 LAB PO2T mm Hg pO2, Temp Corrected 108 LAB NAB 135-146 mmol/L Sodium,Whole Bld High 157 LAB KWB 3.5-5.0 mmol/L Potassium, Whole Bld 3.8 LAB HGBB 13.0-17.0 g/dL Low Hemoglobin,Total,AC 9.1 L LAB HCTB 39.0-51.0 % Hematocrit, ACL Low 28 LAB IC 1.08-1.30 mmol/L Calcium, Ion, WB 1.16 LAB GLB 60-105 mg/dL Glucose,Whole Bld High 134 LAB LACT 0.5-2.2 mmol/L Lactate 1.6 Performed By: #### ALLBG #### [facility] [address] [place], [place] [address] XR CHEST 1V FRONTAL Observed: 10/14/2017 Status: F Source: [facility] 2:53 AM [facility] REPOSITORY * * *Final Report* * * DATE OF EXAM: Oct 14 2017 2:53AM JIX [id number] - XR CHEST 1V FRONTAL PORT / PROCEDURE REASON: Postoperative state * * * * Physician Interpretation * * * * EXAMINATION: CHEST RADIOGRAPH (PORTABLE SINGLE VIEW AP) Exam Date/Time: 10/14/2017 2:53 AM Indication: Postoperative state MQ: XCP_[id number] Comparison: 1 day prior RESULT: See impression. IMPRESSION: The patient is rotated to the right on the current film. Lordotic projection. Lines, tubes, and devices: The tip of the ET tube is 7 to 8 cm proximal to the lexx. NG tube courses below the diaphragm. The tip of the Dundee-Malick catheter overlies the pulmonary outflow tract. Mediastinal drainage tubes and bilateral thoracostomy tubes are in place. Lungs and pleura: There are symmetric bilateral perihilar reticular opacities, most commonly secondary to pulmonary edema. I suspect a small right pleural effusion. The left costophrenic angle is excluded from the film. No pneumothorax is identified. There is symmetric biapical pleural thickening, likely postinflammatory in nature. Cardiomediastinal silhouette: Stable cardiomediastinal silhouette. Suspect open sternotomy wound. A surgical sponge overlies the right cardiophrenic angle. The heart size is within normal limits. The patient is status post endovascular stent grafting of the thoracic aorta. Silver Wrapper: AMY Transcribe Date/Time: Oct 14 2017 8:01A Dictated by : EMELI AGUILERA MD This examination was interpreted and the report reviewed and electronically signed by: EMELI AGUILERA MD on Oct 14 2017 8:05AM EST [id number] GASV + ALL Collected: 10/14/2017 Status: F Source: [place] 2:48 AM [facility] REPOSITORY TYPE CODE TESTS RESULT OUT OF REFERENCE UNITS RANGE LAB VPH 7.32-7.42 pH 7.42 LAB VPC2 42-55 mm Hg pCO2 Low 41 LAB VPO2 35-45 mm Hg pO2 38 LAB VBE mmol/L Base Excess 2 LAB VHC3 24-28 mmol/L Bicarbonate 26 LAB VC2C 25-29 mmol/L CO2 Content 27 LAB O2HBCX 60-85 % Oxyhemoglobin, Willi. 66 LAB CO <2.0 % Carboxyhemoglobin,V 1.0 en LAB METHB 0.4-1.5 % Methemoglobin 0.9 LAB VTMP C Temperature, Body 37.0 LAB VPHTC 7.32-7.42 pH, Temp Corrected 7.42 LAB VPC2T mm Hg pCO2, Temp Correct 41 LAB VPO2T mm Hg pO2, Temp Corrected 38 LAB NAB 135-146 mmol/L Sodium,Whole Bld High 158 LAB KWB 3.5-5.0 mmol/L Potassium, Whole Bld 3.6 LAB HGBB 13.0-17.0 g/dL Low Hemoglobin,Total,AC 9.3 L LAB HCTB 39.0-51.0 % Hematocrit, ACL Low 29 LAB IC 1.08-1.30 mmol/L Calcium, Ion, WB 1.17 LAB GLB 60-105 mg/dL Glucose,Whole Bld High 121 LAB LACT 0.5-2.2 mmol/L Lactate 1.6 Performed By: #### VALLBG #### [facility] [address], [place] [address] GASA + ALL Collected: 10/14/2017 Status: F Source: [place] FOR 2:44 AM [facility] RADIANCE USE ONLY REPOSITORY TYPE CODE TESTS RESULT OUT OF REFERENCE UNITS RANGE LAB PH 7.35-7.45 pH 7.45 LAB PCO2 34-46 mm Hg pCO2 36 LAB PO2 85-95 mm Hg pO2 High 103 LAB BE mmol/L Base Excess 1 LAB HCO3 22-26 mmol/L Bicarbonate 25 LAB CO2CT 22.0-28.0 mmol/L CO2 Content 26 LAB O2HB 95-98 % Oxyhemoglobin, Art. 96 LAB COHB 0-5.0 % Carboxyhemoglobin,A 0.7 rt LAB MHGB 0.4-1.5 % Methemoglobin 0.9 LAB TEMP C Temperature, Body 37.0 LAB PHTC 7.35-7.45 pH, Temp Corrected 7.45 LAB PCO2T 34-46 mm Hg pCO2, Temp Correct 36 LAB PO2T mm Hg pO2, Temp Corrected 103 LAB NAB 135-146 mmol/L Sodium,Whole Bld High 158 LAB KWB 3.5-5.0 mmol/L Potassium, Whole Bld 3.7 LAB HGBB 13.0-17.0 g/dL Low Hemoglobin,Total,AC 9.5 L LAB HCTB 39.0-51.0 % Hematocrit, ACL Low 29 LAB IC 1.08-1.30 mmol/L Calcium, Ion, WB 1.17 LAB GLB 60-105 mg/dL Glucose,Whole Bld High 121 LAB LACT 0.5-2.2 mmol/L Lactate 1.6 Performed By: #### ALLBG #### [address] [address] CBC Collected: 10/14/2017 Status: F Source: [place] 2:30 AM [facility] REPOSITORY TYPE CODE TESTS RESULT OUT OF REFERENCE UNITS RANGE LAB WBC 3.70-11.00 k/uL WBC 9.35 LAB RBC 4.20-6.00 m/uL Low RBC 3.08 LAB HGB 13.0-17.0 g/dL Low Hemoglobin 9.2 LAB HCT 39.0-51.0 % Low Hematocrit 29.0 LAB MCV 80.0-100.0 fL MCV 94.2 LAB MCH 26.0-34.0 pG MCH 29.9 LAB MCHC 30.5-36.0 g/dL MCHC 31.7 LAB RDWCV 11.5-15.0 % RDW-CV High 16.0 LAB PLTCT 150-400 k/uL Low Platelet Count 145 LAB MPV 9.0-12.7 fL MPV 9.8 LAB ABSNUC <0.01 k/uL Absolute nRBC <0.01 Performed By: #### CBC, PTT, FIBCT, PT, CMP #### [address] [address] APTT Collected: 10/14/2017 Status: F Source: [place] 2:30 AM [facility] REPOSITORY TYPE CODE TESTS RESULT OUT OF RANGE REFERENCE UNITS LAB APTT 23.0-32.4 sec APTT 29.9 Result Comment: Unfractionated Heparin Therapeutic Ranges: Standard Heparin Nomogram: 53 to 78 seconds (anti-Xa level of 0.3 to 0.7 U/ml) Low Dose/ACS Nomogram: 49 to 67 seconds (anti-Xa level of 0.2 to 0.5 U/ml) Stroke Treatment Nomogram: 49 to 67 seconds (anti-Xa level of 0.2 to 0.5 U/ml) Note: The APTT therapeutic range has been determined for the current lot of laboratory APTT reagent in use throughout the [facility]. Performed By: #### CBC, PTT, FIBCT, PT, CMP #### [facility] [address] [place], [place] [address] FIBRINOGEN Collected: 10/14/2017 Status: F Source: [place] 2:30 AM [facility] REPOSITORY TYPE CODE TESTS RESULT OUT OF REFERENCE UNITS RANGE LAB FIBCT 200-400 mg/dL High Fibrinogen 767 Result Comment: Sample checked for a clot. Result rechecked. Performed By: #### CBC, PTT, FIBCT, PT, CMP #### [facility] [address] [place], [place] [address] PROTIME Collected: 10/14/2017 Status: F Source: [place] 2:30 AM [facility] REPOSITORY TYPE CODE TESTS RESULT OUT OF RANGE REFERENCE UNITS LAB PSEC 9.7-13.0 sec PT Sec 13.0 LAB INR 0.9-1.3 PT INR 1.3 Result Comment: Vitamin K Antagonist (VKA) Therapeutic Range: INR 2 to 3 (Target INR of 2.5) Note: For patients treated with VKA drugs, such as warfarin, the [place] [employer] 2012 Guideline recommends a therapeutic INR range of 2 to 3 (target INR of 2.5). This recommendation includes high-risk patients with antiphospholipid syndrome with previous arterial or venous thromboembolism, current-generation mechanical or bioprosthetic aortic heart valve replacement. Note: Patients with mechanical aortic valve replacement and additional risk factors for thromboembolic events (atrial fibrillation, previous thromboembolism, LV dysfunction, hypercoagulable conditions) or an older generation mechanical AVR (i.e., ball in-Cage) or any mechanical MVR should have a INR therapeutic range of 2.5 to 3.5 (target INR of 3). Phi GH, et al. Chest 2012, 141:7S-47S Regis GARSIA et al. [facility] 2017, 70: 252-289 Performed By: #### CBC, PTT, FIBCT, PT, CMP #### [facility] [address] [place], [place] [address] COMP METABOLIC PANEL Collected: 10/14/2017 Status: F Source: [place] 2:30 AM [facility] REPOSITORY TYPE CODE TESTS RESULT OUT OF REFERENCE UNITS RANGE LAB TP 6.3-8.0 g/dL Low Protein, Total 6.2 LAB ALB 3.9-4.9 g/dL Low Albumin 3.4 LAB CA 8.5-10.2 mg/dL Low Calcium, Total 8.3 LAB TBIL 0.2-1.3 mg/dL Bilirubin, High Total 6.5 LAB ALKP 36-108 U/L Alkaline Phosphatase 63 LAB AST 14-40 U/L AST High 76 LAB GLU 74-99 mg/dL Glucose High 121 Result Comment: The [place] [employer] (ADA) provides guidance for cutoff values for fasting glucose and random glucose. The ADA defines fasting as no caloric intake for at least 8 hours. Fas ting plasma glucose results between 100 to 125 mg/dL indicate increased risk for diabetes (prediabetes). Fasting plasma glucose results greater than or equal to 126 mg/dL meet the criteria for diagnosis of diabetes. In the absence of unequivocal hyperglycemia, results should be confirmed by repeat testing. In a patient with classic symptoms of hyperglycemia or hyperglycemic crisis, random plasma glucose results greater than or equal to 200 mg/dL meet the criteria for diagnosis of diabetes. Reference: Standards of Medical Care in Diabetes 2016, [place] [employer]. Diabetes Care. 2016.39(Suppl 1). LAB BUN 9-24 mg/dL BUN High 45 LAB CRET 0.73-1.22 mg/dL Creatinine High 1.92 LAB NA 136-144 mmol/L Sodium High 159 LAB K 3.7-5.1 mmol/L Potassium 3.7 LAB CL 97-105 mmol/L Chloride High 119 LAB CO2 22-30 mmol/L CO2 24 LAB AGAP 9-18 mmol/L Anion Gap 16 LAB ALT 10-54 U/L ALT High 125 LAB GFRAA eGFR- Amer. 45 LAB GFRNAA . eGFR-All Other Races 37 Result Comment: eGFR (Estimated GFR) Units of measure: mL/min/1.73 meters squared eGFR is derived from the reexpressed MDRD Study equation using the following parameters: serum creatinine, age, gender and race. The creatinine assay has been calibrated to be traceable to IDMS. An eGFR <60 mL/min/1.73m2 for >3 months is consistent with chronic kidney disease. Refer to KDOQI guidelines for clinical interpretation. In patients with unstable renal function, e.g. those with acute kidney injury, the eGFR may not accurately reflect actual GFR. Performed By: #### CBC, PTT, FIBCT, PT, CMP #### [facility] [address] [place], [place] [address] TYPE AND SCREEN Collected: 10/14/2017 Status: F Source: [place] 2:30 AM [facility] REPOSITORY TYPE CODE TESTS RESULT OUT OF REFERENCE UNITS RANGE LAB %ABR A ABO/RH(D) POSITIVE LAB % Antibody NEG Screen Performed By: #### TSCR #### [facility] [address] [place], [place] [address] GASV + ALL Collected: 10/14/2017 Status: F Source: [place] 12:42 AM [facility] REPOSITORY TYPE CODE TESTS RESULT OUT OF REFERENCE UNITS RANGE LAB VPH 7.32-7.42 pH 7.39 LAB VPC2 42-55 mm Hg pCO2 Low 36 LAB VPO2 35-45 mm Hg pO2 41 LAB VBE mmol/L Base Excess NEG 3 LAB VHC3 24-28 mmol/L Bicarbonate Low 21 LAB VC2C 25-29 mmol/L CO2 Content Low 22 LAB O2HBCX 60-85 % Oxyhemoglobin, Willi. 69 LAB CO <2.0 % Carboxyhemoglobin,V 1.0 en LAB METHB 0.4-1.5 % Methemoglobin 0.4 LAB VTMP C Temperature, Body 37.0 LAB VPHTC 7.32-7.42 pH, Temp Corrected 7.39 LAB VPC2T mm Hg pCO2, Temp Correct 36 LAB VPO2T mm Hg pO2, Temp Corrected 41 LAB NAB 135-146 mmol/L Sodium,Whole Bld High 155 LAB KWB 3.5-5.0 mmol/L Potassium, Whole Low Bld 3.1 LAB HGBB 13.0-17.0 g/dL Low Hemoglobin,Total,AC 7.3 L LAB HCTB 39.0-51.0 % Hematocrit, ACL Low 23 LAB IC 1.08-1.30 mmol/L Calcium, Ion, WB Low 0.99 LAB GLB 60-105 mg/dL Glucose,Whole Bld 101 LAB LACT 0.5-2.2 mmol/L Lactate 1.0 Performed By: #### VALLBG #### [place] [id number] [place] [address] GASA + ALL Collected: 10/14/2017 Status: F Source: [facility] 12:39 AM [facility] RADIANCE USE ONLY REPOSITORY TYPE CODE TESTS RESULT OUT OF REFERENCE UNITS RANGE LAB PH 7.35-7.45 pH 7.42 LAB PCO2 34-46 mm Hg pCO2 38 LAB PO2 85-95 mm Hg pO2 High 104 LAB BE mmol/L Base Excess 0 LAB HCO3 22-26 mmol/L Bicarbonate 24 LAB CO2CT 22.0-28.0 mmol/L CO2 Content 25 LAB O2HB 95-98 % Oxyhemoglobin, Art. 97 LAB COHB 0-5.0 % Carboxyhemoglobin,A 0.9 rt LAB MHGB 0.4-1.5 % Methemoglobin Low 0.3 LAB TEMP C Temperature, Body 37.0 LAB PHTC 7.35-7.45 pH, Temp Corrected 7.42 LAB PCO2T 34-46 mm Hg pCO2, Temp Correct 38 LAB PO2T mm Hg pO2, Temp Corrected 104 LAB NAB 135-146 mmol/L Sodium,Whole Bld High 156 LAB KWB 3.5-5.0 mmol/L Potassium, Whole Bld 4.1 LAB HGBB 13.0-17.0 g/dL Low Hemoglobin,Total,AC 9.1 L LAB HCTB 39.0-51.0 % Hematocrit, ACL Low 28 LAB IC 1.08-1.30 mmol/L Calcium, Ion, WB 1.13 LAB GLB 60-105 mg/dL Glucose,Whole Bld High 123 LAB LACT 0.5-2.2 mmol/L Lactate 1.3 Performed By: #### ALLBG #### [facility] [address] [place], [place] [address] OPERATIVE NO Observed: 10/14/2017 Status: COMPLETED Source: [place] 12:00 AM [facility] REPOSITORY HNO ID: [id number] Author: Arpit Mckenzie Service: Cardiovascular Surgery Author Type: Physician Type: Operative Report Filed: 10/17/2017 10:41 AM Note Text: [address] [address] [place] OPERATIVE REPORT DEPARTMENT OF THORACIC AND CARDIOVASCULAR SURGERY NAME: JOSE GUSTAFSON [facility] #: [id number] DATE: 10/14/2017 AGE: 52 SURGEON 1: Arpit Mckenzie M.D. SURGEON 2: CHISELER HEAD 1: Dr. Grier CHISELER HEAD 2: ANESTHESIA:general OPERATION: Chest exploration, washout, and chest closure. 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 OPERATIVE INDICATIONS:Same OPERATIVE PROCEDURE: The patient was prepped and draped in the usual sterile fashion. Under general anesthesia, we removed the previous vacuum dressing. The patient's mediastinum was completely cleaned. There were no clots or fluid around the heart. We irrigated with a lot of vancomycin. We used the pulse lavage machine with 1 g of vancomycin and 80 mg of gentamicin with 3 L of saline solution with antibiotics. After finishing all the irrigation and we were satisfied with the hemodynamics and hemostasis, the chest was closed with interrupted wires and the rest of the chest as usual fashion. The patient tolerated very well the chest closure and was transferred to the CVICU in stable condition. CHARGE HAND was Jamaal Lentz. We started operation at 1309 and finished the operation 14;36. ESTIMATED BLOOD LOSS: 50 mL. DRAINS:2 mediastinal, 2 chest tubes, 2 BlAkes SPECIMENS:NO Arpit Mckenzie M.D. JN:[id number] /[id number] cc: SODIUM Collected: 10/13/2017 Status: F Source: [place] 10:50 PM [facility] REPOSITORY TYPE CODE TESTS RESULT OUT OF REFERENCE UNITS RANGE LAB NA 136-144 mmol/L High Sodium 159 Performed By: #### NA #### [facility] [address] [place] [id number] GASA + ALL Collected: 10/13/2017 Status: F Source: [facility] 10:31 PM [facility] RADIANCE USE ONLY REPOSITORY TYPE CODE TESTS RESULT OUT OF REFERENCE UNITS RANGE LAB PH 7.35-7.45 pH 7.42 LAB PCO2 34-46 mm Hg pCO2 38 LAB PO2 85-95 mm Hg pO2 High 109 LAB BE mmol/L Base Excess 0 LAB HCO3 22-26 mmol/L Bicarbonate 24 LAB CO2CT 22.0-28.0 mmol/L CO2 Content 26 LAB O2HB 95-98 % Oxyhemoglobin, Art. 97 LAB COHB 0-5.0 % Carboxyhemoglobin,A 1.2 rt LAB MHGB 0.4-1.5 % Methemoglobin Low 0.0 LAB TEMP C Temperature, Body 37.0 LAB PHTC 7.35-7.45 pH, Temp Corrected 7.42 LAB PCO2T 34-46 mm Hg pCO2, Temp Correct 38 LAB PO2T mm Hg pO2, Temp Corrected 109 LAB NAB 135-146 mmol/L Sodium,Whole Bld High 157 LAB KWB 3.5-5.0 mmol/L Potassium, Whole Bld 3.9 LAB HGBB 13.0-17.0 g/dL Low Hemoglobin,Total,AC 9.0 L LAB HCTB 39.0-51.0 % Hematocrit, ACL Low 28 LAB IC 1.08-1.30 mmol/L Calcium, Ion, WB 1.14 LAB GLB 60-105 mg/dL Glucose,Whole Bld High 130 LAB LACT 0.5-2.2 mmol/L Lactate 1.4 Performed By: #### ALLBG #### [facility] [address] [place], [place] [address] GASV + ALL Collected: 10/13/2017 Status: F Source: [place] 10:31 PM [facility] REPOSITORY TYPE CODE TESTS RESULT OUT OF REFERENCE UNITS RANGE LAB VPH 7.32-7.42 pH 7.39 LAB VPC2 42-55 mm Hg pCO2 43 LAB VPO2 35-45 mm Hg pO2 39 LAB VBE mmol/L Base Excess 0 LAB VHC3 24-28 mmol/L Bicarbonate 25 LAB VC2C 25-29 mmol/L CO2 Content 26 LAB O2HBCX 60-85 % Oxyhemoglobin, Willi. 67 LAB CO <2.0 % Carboxyhemoglobin,V 1.1 en LAB METHB 0.4-1.5 % Methemoglobin 1.0 LAB VTMP C Temperature, Body 37.0 LAB VPHTC 7.32-7.42 pH, Temp Corrected 7.39 LAB VPC2T mm Hg pCO2, Temp Correct 43 LAB VPO2T mm Hg pO2, Temp Corrected 39 LAB NAB 135-146 mmol/L Sodium,Whole Bld High 158 LAB KWB 3.5-5.0 mmol/L Potassium, Whole Bld 3.9 LAB HGBB 13.0-17.0 g/dL Low Hemoglobin,Total,AC 9.2 L LAB HCTB 39.0-51.0 % Hematocrit, ACL Low 29 LAB IC 1.08-1.30 mmol/L Calcium, Ion, WB 1.20 LAB GLB 60-105 mg/dL Glucose,Whole Bld High 123 LAB LACT 0.5-2.2 mmol/L Lactate 1.4 Performed By: #### VALLBG #### [facility] [address] [place], [place] [address] GASV + ALL Collected: 10/13/2017 Status: F Source: [place] 8:15 PM [facility] REPOSITORY TYPE CODE TESTS RESULT OUT OF REFERENCE UNITS RANGE LAB VPH 7.32-7.42 pH 7.37 LAB VPC2 42-55 mm Hg pCO2 43 LAB VPO2 35-45 mm Hg pO2 45 LAB VBE mmol/L Base Excess 0 LAB VHC3 24-28 mmol/L Bicarbonate 24 LAB VC2C 25-29 mmol/L CO2 Content 26 LAB O2HBCX 60-85 % Oxyhemoglobin, Willi. 72 LAB CO <2.0 % Carboxyhemoglobin,V 1.3 en LAB METHB 0.4-1.5 % Methemoglobin Low 0.0 LAB VTMP C Temperature, Body 37.0 LAB VPHTC 7.32-7.42 pH, Temp Corrected 7.37 LAB VPC2T mm Hg pCO2, Temp Correct 43 LAB VPO2T mm Hg pO2, Temp Corrected 45 LAB NAB 135-146 mmol/L Sodium,Whole Bld High 156 LAB KWB 3.5-5.0 mmol/L Potassium, Whole Bld 3.7 LAB HGBB 13.0-17.0 g/dL Low Hemoglobin,Total,AC 8.5 L LAB HCTB 39.0-51.0 % Hematocrit, ACL Low 27 LAB IC 1.08-1.30 mmol/L Calcium, Ion, WB 1.11 LAB GLB 60-105 mg/dL Glucose,Whole Bld High 140 LAB LACT 0.5-2.2 mmol/L Lactate 1.4 Performed By: #### VALLBG #### [facility] [address] [place], [place] [address] GASA + ALL Collected: 10/13/2017 Status: F Source: [facility] 8:13 PM [facility] RADIANCE USE ONLY REPOSITORY TYPE CODE TESTS RESULT OUT OF REFERENCE UNITS RANGE LAB PH 7.35-7.45 pH 7.41 LAB PCO2 34-46 mm Hg pCO2 39 LAB PO2 85-95 mm Hg pO2 High 146 LAB BE mmol/L Base Excess 1 LAB HCO3 22-26 mmol/L Bicarbonate 25 LAB CO2CT 22.0-28.0 mmol/L CO2 Content 26 LAB O2HB 95-98 % Oxyhemoglobin, Art. 97 LAB COHB 0-5.0 % Carboxyhemoglobin,A 1.0 rt LAB MHGB 0.4-1.5 % Methemoglobin 0.9 LAB TEMP C Temperature, Body 37.0 LAB PHTC 7.35-7.45 pH, Temp Corrected 7.41 LAB PCO2T 34-46 mm Hg pCO2, Temp Correct 39 LAB PO2T mm Hg pO2, Temp Corrected 146 LAB NAB 135-146 mmol/L Sodium,Whole Bld High 156 LAB KWB 3.5-5.0 mmol/L Potassium, Whole Bld 4.0 LAB HGBB 13.0-17.0 g/dL Low Hemoglobin,Total,AC 9.3 L LAB HCTB 39.0-51.0 % Hematocrit, ACL Low 29 LAB IC 1.08-1.30 mmol/L Calcium, Ion, WB 1.19 LAB GLB 60-105 mg/dL Glucose,Whole Bld High 143 LAB LACT 0.5-2.2 mmol/L Lactate 1.6 Performed By: #### ALLBG #### [facility] [address] [place], [place] [address] GASV + ALL Collected: 10/13/2017 Status: F Source: [place] 6:02 PM [facility] REPOSITORY TYPE CODE TESTS RESULT OUT OF REFERENCE UNITS RANGE LAB VPH 7.32-7.42 pH 7.37 LAB VPC2 42-55 mm Hg pCO2 45 LAB VPO2 35-45 mm Hg pO2 40 LAB VBE mmol/L Base Excess 1 LAB VHC3 24-28 mmol/L Bicarbonate 25 LAB VC2C 25-29 mmol/L CO2 Content 27 LAB O2HBCX 60-85 % Oxyhemoglobin, Willi. 68 LAB CO <2.0 % Carboxyhemoglobin,V 1.0 en LAB METHB 0.4-1.5 % Methemoglobin 1.5 LAB VTMP C Temperature, Body 37.0 LAB VPHTC 7.32-7.42 pH, Temp Corrected 7.37 LAB VPC2T mm Hg pCO2, Temp Correct 45 LAB VPO2T mm Hg pO2, Temp Corrected 40 LAB NAB 135-146 mmol/L Sodium,Whole Bld High 156 LAB KWB 3.5-5.0 mmol/L Potassium, Whole Bld 4.3 LAB HGBB 13.0-17.0 g/dL Low Hemoglobin,Total,AC 9.8 L LAB HCTB 39.0-51.0 % Hematocrit, ACL Low 30 LAB IC 1.08-1.30 mmol/L Calcium, Ion, WB 1.20 LAB GLB 60-105 mg/dL Glucose,Whole Bld High 125 LAB LACT 0.5-2.2 mmol/L Lactate 1.4 Performed By: #### VALLBG #### [facility] [address] [place] [address] GASA + ALL Collected: 10/13/2017 Status: F Source: [place] 5:59 PM [facility] RADI[facility] USE ONLY REPOSITORY TYPE CODE TESTS RESULT OUT OF REFERENCE UNITS RANGE LAB PH 7.35-7.45 pH 7.41 LAB PCO2 34-46 mm Hg pCO2 38 LAB PO2 85-95 mm Hg pO2 High 132 LAB BE mmol/L Base Excess 0 LAB HCO3 22-26 mmol/L Bicarbonate 24 LAB CO2CT 22.0-28.0 mmol/L CO2 Content 25 LAB O2HB 95-98 % Oxyhemoglobin, Art. 96 LAB COHB 0-5.0 % Carboxyhemoglobin,A 1.0 rt LAB MHGB 0.4-1.5 % Methemoglobin 1.5 LAB TEMP C Temperature, Body 37.0 LAB PHTC 7.35-7.45 pH, Temp Corrected 7.41 LAB PCO2T 34-46 mm Hg pCO2, Temp Correct 38 LAB PO2T mm Hg pO2, Temp Corrected 132 LAB NAB 135-146 mmol/L Sodium,Whole Bld High 156 LAB KWB 3.5-5.0 mmol/L Potassium, Whole Bld 4.3 LAB HGBB 13.0-17.0 g/dL Low Hemoglobin,Total,AC 9.8 L LAB HCTB 39.0-51.0 % Hematocrit, ACL Low 30 LAB IC 1.08-1.30 mmol/L Calcium, Ion, WB 1.19 LAB GLB 60-105 mg/dL Glucose,Whole Bld High 124 LAB LACT 0.5-2.2 mmol/L Lactate 1.4 Performed By: #### ALLBG #### [facility] [address] [place], [place] [address] GASA + ALL Collected: 10/13/2017 Status: F Source: [place] FOR 3:44 PM [facility] RADIANCE USE ONLY REPOSITORY TYPE CODE TESTS RESULT OUT OF REFERENCE UNITS RANGE LAB PH 7.35-7.45 pH 7.45 LAB PCO2 34-46 mm Hg pCO2 36 LAB PO2 85-95 mm Hg pO2 High 108 LAB BE mmol/L Base Excess 1 LAB HCO3 22-26 mmol/L Bicarbonate 24 LAB CO2CT 22.0-28.0 mmol/L CO2 Content 26 LAB O2HB 95-98 % Oxyhemoglobin, Art. 97 LAB COHB 0-5.0 % Carboxyhemoglobin,A 0.7 rt LAB MHGB 0.4-1.5 % Methemoglobin Low 0.2 LAB TEMP C Temperature, Body 37.0 LAB PHTC 7.35-7.45 pH, Temp Corrected 7.45 LAB PCO2T 34-46 mm Hg pCO2, Temp Correct 36 LAB PO2T mm Hg pO2, Temp Corrected 108 LAB NAB 135-146 mmol/L Sodium,Whole Bld High 153 LAB KWB 3.5-5.0 mmol/L Potassium, Whole Bld 3.9 LAB HGBB 13.0-17.0 g/dL Low Hemoglobin,Total,AC 9.6 L LAB HCTB 39.0-51.0 % Hematocrit, ACL Low 30 LAB IC 1.08-1.30 mmol/L Calcium, Ion, WB 1.16 LAB GLB 60-105 mg/dL Glucose,Whole Bld High 150 LAB LACT 0.5-2.2 mmol/L Lactate 1.6 Performed By: #### ALLBG #### [facility] [address] [place], [place] [address] GASV + ALL Collected: 10/13/2017 Status: F Source: [place] 3:43 PM [facility] REPOSITORY TYPE CODE TESTS RESULT OUT OF REFERENCE UNITS RANGE LAB VPH 7.32-7.42 pH 7.40 LAB VPC2 42-55 mm Hg pCO2 43 LAB VPO2 35-45 mm Hg pO2 35 LAB VBE mmol/L Base Excess 2 LAB VHC3 24-28 mmol/L Bicarbonate 26 LAB VC2C 25-29 mmol/L CO2 Content 28 LAB O2HBCX 60-85 % Oxyhemoglobin, Willi. 62 LAB CO <2.0 % Carboxyhemoglobin,V 0.9 en LAB METHB 0.4-1.5 % Methemoglobin 1.0 LAB VTMP C Temperature, Body 37.0 LAB VPHTC 7.32-7.42 pH, Temp Corrected 7.40 LAB VPC2T mm Hg pCO2, Temp Correct 43 LAB VPO2T mm Hg pO2, Temp Corrected 35 LAB NAB 135-146 mmol/L Sodium,Whole Bld High 153 LAB KWB 3.5-5.0 mmol/L Potassium, Whole Bld 3.9 LAB HGBB 13.0-17.0 g/dL Low Hemoglobin,Total,AC 9.7 L LAB HCTB 39.0-51.0 % Hematocrit, ACL Low 30 LAB IC 1.08-1.30 mmol/L Calcium, Ion, WB 1.17 LAB GLB 60-105 mg/dL Glucose,Whole Bld High 137 LAB LACT 0.5-2.2 mmol/L Lactate 1.3 Performed By: #### VALLBG #### [facility] [address] [place], [place] [address] PLAN OF CARE Observed: 10/13/2017 Status: COMPLETED Source: [place] 1:12 PM [facility] REPOSITORY HNO ID: [id number] Author: Jessica Carter Service: Neurology Author Type: Physician Type: Plan of Care Filed: 10/13/2017 5:09 PM Note Text: Jose Gustafson [id number] Jose Gustafson is now s/p hemicraniectomy for large R MCA stroke. Patient continues to be sedated making good exam very difficult. Recommendations at this time: 1. Normalize CO2 2. Na goal: 140-150 for 24h, then normalize 3. Please turn off sedation at some time prior to surgery for chest closure tomorrow and page [phone] so a good neurologic exam is available prior to surgery tomorrow. Trudi Guardado MD, PGY-4 10/13/2017, 1:16 PM Agree with above, will clarify Na goals with NSGY. Improved mass effect of large infarct s/p decompression. Please page team prior to OR to assess off sedation. MD JULY FloresA Vascular Neurology 10/13/2017 5:07 PM GASA + ALL Collected: 10/13/2017 Status: F Source: [facility] 12:48 PM [facility] USE ONLY REPOSITORY TYPE CODE TESTS RESULT OUT OF REFERENCE UNITS RANGE LAB PH 7.35-7.45 pH 7.45 LAB PCO2 34-46 mm Hg pCO2 36 LAB PO2 85-95 mm Hg pO2 High 123 LAB BE mmol/L Base Excess 1 LAB HCO3 22-26 mmol/L Bicarbonate 24 LAB CO2CT 22.0-28.0 mmol/L CO2 Content 25 LAB O2HB 95-98 % Oxyhemoglobin, Art. 98 LAB COHB 0-5.0 % Carboxyhemoglobin,A 0.4 rt LAB MHGB 0.4-1.5 % Methemoglobin Low 0.0 LAB TEMP C Temperature, Body 37.0 LAB PHTC 7.35-7.45 pH, Temp Corrected 7.45 LAB PCO2T 34-46 mm Hg pCO2, Temp Correct 36 LAB PO2T mm Hg pO2, Temp Corrected 123 LAB NAB 135-146 mmol/L Sodium,Whole Bld High 154 LAB KWB 3.5-5.0 mmol/L Potassium, Whole Bld 4.2 LAB HGBB 13.0-17.0 g/dL Low Hemoglobin,Total,AC 9.0 L LAB HCTB 39.0-51.0 % Hematocrit, ACL Low 28 LAB IC 1.08-1.30 mmol/L Calcium, Ion, WB 1.19 LAB GLB 60-105 mg/dL Glucose,Whole Bld High 113 LAB LACT 0.5-2.2 mmol/L Lactate 1.5 Performed By: #### ALLBG #### [facility] [address] [place], [place] [address] GASV + ALL Collected: 10/13/2017 Status: F Source: [place] 12:45 PM [facility] REPOSITORY TYPE CODE TESTS RESULT OUT OF REFERENCE UNITS RANGE LAB VPH 7.32-7.42 pH 7.40 LAB VPC2 42-55 mm Hg pCO2 43 LAB VPO2 35-45 mm Hg pO2 36 LAB VBE mmol/L Base Excess 2 LAB VHC3 24-28 mmol/L Bicarbonate 26 LAB VC2C 25-29 mmol/L CO2 Content 28 LAB O2HBCX 60-85 % Oxyhemoglobin, Willi. 64 LAB CO <2.0 % Carboxyhemoglobin,V 1.1 en LAB METHB 0.4-1.5 % Methemoglobin 1.1 LAB VTMP C Temperature, Body 37.0 LAB VPHTC 7.32-7.42 pH, Temp Corrected 7.40 LAB VPC2T mm Hg pCO2, Temp Correct 43 LAB VPO2T mm Hg pO2, Temp Corrected 36 LAB NAB 135-146 mmol/L Sodium,Whole Bld High 155 LAB KWB 3.5-5.0 mmol/L Potassium, Whole Bld 4.2 LAB HGBB 13.0-17.0 g/dL Low Hemoglobin,Total,AC 9.2 L LAB HCTB 39.0-51.0 % Hematocrit, ACL Low 29 LAB IC 1.08-1.30 mmol/L Calcium, Ion, WB 1.21 LAB GLB 60-105 mg/dL Glucose,Whole Bld 104 LAB LACT 0.5-2.2 mmol/L Lactate 1.3 Performed By: #### VALLBG #### [facility] [address] [place], [place] [address] PROGRESS Observed: 10/13/2017 Status: COMPLETED Source: [place] 12:35 PM [facility] REPOSITORY HNO ID: [id number] Author: Elvira Royal (Ghulam De Los Santos Service: Critical Care Author Type: Nurse Practitioner Type: Progress Notes Filed: 10/13/2017 12:39 PM Note Text: [facility] Note Name: Jose Gustafson Coordination of Care Note: Indication for Surgery: Spontaneous Rupture of Aorta LVEF: Normal RVF: Normal Important/Relevant PMH/PSH: HTN, asthma, hx kidney stones Preoperative Hospital Course (narrative): 52 yo M with PMH HTN, Asthma, and hx of kidney stones who is transferred to F for 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 Hypotension, cardiac insufficiency on norepinephrine, vasopressin, and epoprostenol. Returned to OR 10/08 for exploration and large amount of clots were removed but no active bleeding. Chest closure attempted 10/10 but failed 2/2 desaturation. Early AM 10/11 2 CLOT for left sided weakness. CTH with large large right MCA infarct with associated mass effect. Repeat imaging with evolution of R MCA infarct with increased edema now s/p right decompressive hemicraniectomy per Neurosurgery on 10/12. Issues to communicate at signout: OPEN CHEST - plan for closure 10/14 New RT sided MCA CVA s/p right decompressive hemicraniectomy: Continue 3% for cerebral edema, maintain Na 145-155; keppra 750 mg bid x 2 weeks per neuro: okay to resume ASA 3/18; SQH 10/04 - on hold until after chest closure Other Problems I Reviewed and/or Managed During This Encounter: Problem Dissection of Thoracic Aorta (Hcc) Patient with chest pain at OSH. CT chest was concerning for aortic dissection starting at the mid arch and descending in the thoracic aorta. Taken to the OR 10/08, brief OR findings greater curvature of the aortic arch was torn longitudinally from innominate artery to distal arch. There was no obvious dissection. 10/08/2017 s/p Total arch replacement with FET under DHCA; open chest 10/08/2017 Chest exploration/Evacuation of hematoma/Open chest with wound vac 10/10/2017 Chest opened with wound VAC placement (Attempt closure, but fail due to desaturation) A/P - remains critically ill with open chest. Continue current inotropic management. Diurese as able to improve fluid balance. Plan for closure Saturday 10/14 Acute Respiratory Insufficiency, Postoperative A/p - remains on full ventilatory support 2/2 open chest, right hemicraniectomy. Remains hypoxic on increased fio2 AND peep. CXR with atelectasis and increased vascular markings. Remains on epoprostenol. Continue diuresis for volume control. Atelectasis see respiratory insufficiency Hypoxia see respiratory insufficiency Asthma Preop on Breo Ellipta and Flonase A/P - continue inhalers (budesonide, duonebs). No wheezing. Vented. Cardiac Insufficiency (Hcc) A/p - Improved CI and hemodynamics after chest washout; continue epi for CI > 2.2 . Postoperative Hypotension A/P - Continue current regimen of norepinephrine and vaso but keep MAP > 80 mm Hg for neuro protection Stroke (Cerebrum) (Hcc) New L sided weakness 10/11; CTH with large R MCA infarct with associated mass effect. Repeat imaging with evolution of R MCA infarct with increased edema 10/12/2017 - Right decompressive hemicraniectomy for R MCA stroke and malignant cerebral edema A/p - continue hypertonic saline for goal Na 145-155 - resume ASA after chest closure; - Permissive hypertension as able; goal map >80 - keppra 750 mg bid x 2 weeks Cerebral Edema (Hcc) see CVA Pain, Postoperative, Acute A/P: Fentanyl infusion while intubated with open chest for pain control; appears adequate Acute Kidney Injury (Hcc) Baseline Scr 0.89 to A/p - Estimated Creatinine Clearance: 54.8 mL/min (based on Cr of 1.71). Excellent uop on diuretic. Continue as he remains massively volume overloaded with plans for chest closure in AM. Moderate Protein-Calorie Malnutrition (Hcc) A/p - corpak attempted x 2, unsuccessful. Will consult procedure team for assistance after chest closure. Acute Blood Loss Anemia Has required 13u pRBCs thus far A/p - continue to trend H/H; transfuse Hct > 30% PHYSICAL EXAM: Neuro: Sedation Cardiovascular: Rhythm: regular rate and rhythm and Rate:normal sinus rhythm, paced Pulmonary: Clear to auscultation and Breath sounds equal Ventilator: Intubated: PCV; FiO2: 50; PEEP: 14 cmH2O; Not ready for weaning; HOB elevated 40 degrees: Yes; Oral care with chlorhexidine: Yes; Was sedation turned off? No: Why? Contraindicated because patient's chest is open, patient is unstable CXR Findings: Atelectasis Bilateral, Increased Vascular Markings Bilateral, Pleural effusion R>L and CXR personally viewed and interpreted by ICU staff Nurse Practitioner Gastrointestinal: Abdominal: Soft and Non-tender DAILY CVICU CHECKLIST VTE Prophylaxis: Pharmacologic No - because bleeding risk VTE Prophylaxis: Mechanical: Yes Line infection prevention: Can CVC, PAC or arterial line be removed: No Continued need for urinary catheter: Yes - clinical indication: Patient post major surgery requiring fluid balance and input and output measurement. Restraints needed: No This patient has a high probability of sudden, clinically significant deterioration, which requires the highest level of preparedness to intervene urgently. I participated in the decision making and personally managed or directed the management of the following life and organ supporting interventions that required my frequent assessment to treat or prevent imminent deterioration of: Problem Dissection of Thoracic Aorta (Hcc) Acute Respiratory Insufficiency, Postoperative Atelectasis Hypoxia Asthma Cardiac Insufficiency (Hcc) Postoperative Hypotension Stroke (Cerebrum) (Hcc) Cerebral Edema (Hcc) Pain, Postoperative, Acute Acute Kidney Injury (Hcc) Moderate Protein-Calorie Malnutrition (Hcc) Acute Blood Loss Anemia Aortic Dissection (Hcc) (Resolved) Lactic Acid Acidosis (Resolved) Coagulopathy (Hcc) (Resolved) I personally spent 51 minutes of critical care time treating the patient. Time devoted to any procedures I billed separately is not included. SIGNATURE: Elvira De Los Santos CNP DATE of SERVICE: 10/13/2017 TIME of SERVICE: 12:35 PM CONSULT PROG Observed: 10/13/2017 Status: COMPLETED Source: [place] 11:40 AM [facility] REPOSITORY [facility] ID: [id number] Author: Balbir Hayes Service: Neurosurgery Author Type: Resident Type: Consult Progress Note Filed: 10/13/2017 11:40 AM Note Text: Neurosurgery Progress Note: Jose Gustafson [id number] S: No acute events overnight O: 10/13/17 1030 10/13/17 1050 10/13/17 1110 10/13/17 1130 BP: Pulse: 89 89 89 89 Resp: Temp: TempSrc: SpO2: 97% 98% 97% 97% Weight: Height: Exam: E1 V1T M1 PERRL + weak corneals + weak cough Flap full, but soft Dressing c/d/i Drain bloody A/P: 52 y/o M s/p: 10/12 decompressive R hemicraniectomy - neuro stable - f/u drain output to suction - maintain Na 145-155 - keppra 750 mg bid x 2 weeks - okay to resume ASA 10/13 today - SQH okay on 10/14 - HOB elevated - okay to continue sedation - rest per primary - will follow Balbir Hayes MD PGY-3, Neurological Surgery Pager # [phone] October 13, 2017 Please page [phone] after 6 PM and on weekends GASV + ALL Collected: 10/13/2017 Status: F Source: [place] 10:37 AM [facility] REPOSITORY TYPE CODE TESTS RESULT OUT OF REFERENCE UNITS RANGE LAB VPH 7.32-7.42 pH 7.40 LAB VPC2 42-55 mm Hg pCO2 42 LAB VPO2 35-45 mm Hg pO2 37 LAB VBE mmol/L Base Excess 1 LAB VHC3 24-28 mmol/L Bicarbonate 25 LAB VC2C 25-29 mmol/L CO2 Content 27 LAB O2HBCX 60-85 % Oxyhemoglobin, Willi. 65 LAB CO <2.0 % Carboxyhemoglobin,V 1.0 en LAB METHB 0.4-1.5 % Methemoglobin 1.1 LAB VTMP C Temperature, Body 37.0 LAB VPHTC 7.32-7.42 pH, Temp Corrected 7.40 LAB VPC2T mm Hg pCO2, Temp Correct 42 LAB VPO2T mm Hg pO2, Temp Corrected 37 LAB NAB 135-146 mmol/L Sodium,Whole Bld High 153 LAB KWB 3.5-5.0 mmol/L Potassium, Whole Bld 4.2 LAB HGBB 13.0-17.0 g/dL Low Hemoglobin,Total,AC 9.1 L LAB HCTB 39.0-51.0 % Hematocrit, ACL Low 28 LAB IC 1.08-1.30 mmol/L Calcium, Ion, WB 1.21 LAB GLB 60-105 mg/dL Glucose,Whole Bld High 117 LAB LACT 0.5-2.2 mmol/L Lactate 1.6 Performed By: #### VALLBG #### [facility] [address], [place] [address] GASA + ALL Collected: 10/13/2017 Status: F Source: [place] FOR 10:34 AM [facility] RADIANCE USE ONLY REPOSITORY TYPE CODE TESTS RESULT OUT OF REFERENCE UNITS RANGE LAB PH 7.35-7.45 pH 7.45 LAB PCO2 34-46 mm Hg pCO2 35 LAB PO2 85-95 mm Hg pO2 High 126 LAB BE mmol/L Base Excess 1 LAB HCO3 22-26 mmol/L Bicarbonate 24 LAB CO2CT 22.0-28.0 mmol/L CO2 Content 25 LAB O2HB 95-98 % Oxyhemoglobin, Art. 96 LAB COHB 0-5.0 % Carboxyhemoglobin,A 0.9 rt LAB MHGB 0.4-1.5 % Methemoglobin 1.3 LAB TEMP C Temperature, Body 37.0 LAB PHTC 7.35-7.45 pH, Temp Corrected 7.45 LAB PCO2T 34-46 mm Hg pCO2, Temp Correct 35 LAB PO2T mm Hg pO2, Temp Corrected 126 LAB NAB 135-146 mmol/L Sodium,Whole Bld High 153 LAB KWB 3.5-5.0 mmol/L Potassium, Whole Bld 4.2 LAB HGBB 13.0-17.0 g/dL Low Hemoglobin,Total,AC 8.9 L LAB HCTB 39.0-51.0 % Hematocrit, ACL Low 28 LAB IC 1.08-1.30 mmol/L Calcium, Ion, WB 1.21 LAB GLB 60-105 mg/dL Glucose,Whole Bld High 117 LAB LACT 0.5-2.2 mmol/L Lactate 1.7 Performed By: #### ALLBG #### [facility] [address] [place], [place] [address] NUTRITION Observed: 10/13/2017 Status: COMPLETED Source: [place] 8:22 AM [facility] REPOSITORY [facility] ID: [id number] Author: Jeremy Harrington Service: NST-Nutrition Support Team Author Type: Registered Dietitian Type: Nutrition Filed: 10/13/2017 12:16 PM Note Text: NUTRITION THERAPY INITIAL ASSESSMENT SERVICE DATE: 10/13/2017 SERVICE TIME: 8:23 am RECOMMENDED MALNUTRITION DIAGNOSIS: MODERATE PROTEIN-CALORIE MALNUTRITION In the context of Acute Illness or Injury based on: Insufficient Energy Intake: Less than or equal to 50% for greater than or equal to 5 days Muscle Loss Mild Loss NUTRITION CARE PLAN: Intervention: 1. Enteral support when able - impact peptide @ 60 cc/hr 2. Recommend MVI w/ minerals Monitor and Evaluation: Goal: Meet >75% of estimated needs Discharge Nutrition Recommendations: To be determined Per HPI: 52 yo M pmhx 52 yo M with PMH HTN, Asthma, and hx of kidney stones who is transferred to [facility] for 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 10/08/2017 Total arch replacement with FET under [facility]CA 10/08/2017 Chest exploration / Evacuation of hematoma / Open chest with wound vac 10/10/2017 Chest opened with wound VAC placement (Attempt closure, but fail due to desaturation) 10/12/2017 - Right decompressive hemicraniectomy for R MCA stroke and malignant cerebral edema Interval history: intubated, sedated. On multiple pressors. Open chest. S/p R hemicraniectomy. 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 Unable to assess ANTHROPOMETRICS Height: 182.9 cm (6') Admission Weight: 85 kg (187 lb 6.3 oz) Current Weight: 91.4 kg (201 lb 8 oz) BMI 29.9 based on dry weight Weight hx: per epic, wt ~190s with minor fluctuations the last year. Admitted at 187#, 85 kg IBW: 80.9 kg Dosing wt: 85 kg Estimated kilocalorie needs: 7660-1261 kilocalories determined by 20-25 kcal/kg Estimated protein needs: 110-144 grams determined by 1.3-1.7 g/kg Dosing weight NUTRITION FOCUSED PHYSICAL EXAM: Subcutaneous Fat Loss Orbital Mild Triceps Unable to determine at this time Mid-axillary at the iliac crest Unable to determine at this time Muscle Loss Locations: Temporalis Mild Pectoralis Mild Deltoids No muscle loss Interosseous Unable to determine at this time Latissimus dorsi, trapezius Unable to determine at this time Quadriceps Mild Gastrocnemius Mild Potential micronutrient deficiency revealed in: Unable to determine at this time Edema: Yes Generalized Ascites: No Assessment of Functional Status: Functional capacity is unrelated to nutrition status Temperature Max in 24 hours: No data recorded. BP 152/83 Pulse 89 Temp 36.7 ?C (98.1 ?F) (Core) Resp 30 Ht 182.9 cm (6') Wt 91.4 kg (201 lb 8 oz) SpO2 98% BMI 27.33 kg/m2 Recent Labs 10/13/17 0557 10/13/17 0007 GLUC -- -- 108* BUN -- -- 33* CREAT -- -- 1.71* NA -- -- 148* K -- -- 3.9 CHLOR -- -- 110* CO2 28 < > 28 ALB -- -- 3.1* HB -- -- 8.7* HCT -- -- 27.0* WBC -- -- 8.80 < > = values in this interval not displayed. Potential Signs of Inflammation: hypoalbuminemia, imaging studies and clinical condition (multiple operations this week, open chest, s/p hemicraniectomy) Pertinent meds: epi, velitri, fentanyl, lasix, levo, vaso, protonix, phenylephrine, senna ALLERGIES Allergen Reactions - Cats - Grass Pollen Itching Pressure Injury 10/08/17 1121 Lip - Lower (Active) Main Joaquin Units Operating Room 10/10/2017 9:00 AM Stage Injury Mucous Membrane 10/13/2017 7:00 AM Surgical Incision 10/07/17 Chest - Midsternal (Active) Dressing Status Intact 10/13/2017 7:00 AM Surgical Incision 10/12/17 1451 Head (Active) Dressing Status Initial Post-Op Dressing Intact 10/13/2017 7:00 AM MNT Billing Type: Initial Assess/15 min 4 units SIGNATURE: Jeremy Harrington MS RD [facility] PATIENT NAME: Jose Gustafson DATE: October 13, 2017 TIME: 8:22 AM PAGER: [phone] GASV + ALL Collected: 10/13/2017 Status: F Source: [place] 8:20 AM [facility] REPOSITORY TYPE CODE TESTS RESULT OUT OF REFERENCE UNITS RANGE LAB VPH 7.32-7.42 pH 7.41 LAB VPC2 42-55 mm Hg pCO2 42 LAB VPO2 35-45 mm Hg pO2 37 LAB VBE mmol/L Base Excess 2 LAB VHC3 24-28 mmol/L Bicarbonate 26 LAB VC2C 25-29 mmol/L CO2 Content 28 LAB O2HBCX 60-85 % Oxyhemoglobin, Low Willi. 56 LAB CO <2.0 % Carboxyhemoglobin,V 1.3 en LAB METHB 0.4-1.5 % Methemoglobin Low 0.2 LAB VTMP C Temperature, Body 37.0 LAB VPHTC 7.32-7.42 pH, Temp Corrected 7.41 LAB VPC2T mm Hg pCO2, Temp Correct 42 LAB VPO2T mm Hg pO2, Temp Corrected 37 LAB NAB 135-146 mmol/L Sodium,Whole Bld High 151 LAB KWB 3.5-5.0 mmol/L Potassium, Whole Bld 3.8 LAB HGBB 13.0-17.0 g/dL Low Hemoglobin,Total,AC 8.8 L LAB HCTB 39.0-51.0 % Hematocrit, ACL Low 27 LAB IC 1.08-1.30 mmol/L Calcium, Ion, WB 1.17 LAB GLB 60-105 mg/dL Glucose,Whole Bld High 140 LAB LACT 0.5-2.2 mmol/L Lactate 1.6 Performed By: #### VALLBG #### [facility] [address] [place], [place] [address] GASA + ALL Collected: 10/13/2017 Status: F Source: [place] FOR 8:17 AM [facility] RADIANCE USE ONLY REPOSITORY TYPE CODE TESTS RESULT OUT OF REFERENCE UNITS RANGE LAB PH 7.35-7.45 pH 7.45 LAB PCO2 34-46 mm Hg pCO2 37 LAB PO2 85-95 mm Hg pO2 High 117 LAB BE mmol/L Base Excess 2 LAB HCO3 22-26 mmol/L Bicarbonate 25 LAB CO2CT 22.0-28.0 mmol/L CO2 Content 26 LAB O2HB 95-98 % Oxyhemoglobin, Art. 96 LAB COHB 0-5.0 % Carboxyhemoglobin,A 1.1 rt LAB MHGB 0.4-1.5 % Methemoglobin 1.0 LAB TEMP C Temperature, Body 37.0 LAB PHTC 7.35-7.45 pH, Temp Corrected 7.45 LAB PCO2T 34-46 mm Hg pCO2, Temp Correct 37 LAB PO2T mm Hg pO2, Temp Corrected 117 LAB NAB 135-146 mmol/L Sodium,Whole Bld High 151 LAB KWB 3.5-5.0 mmol/L Potassium, Whole Bld 3.9 LAB HGBB 13.0-17.0 g/dL Low Hemoglobin,Total,AC 9.0 L LAB HCTB 39.0-51.0 % Hematocrit, ACL Low 28 LAB IC 1.08-1.30 mmol/L Calcium, Ion, WB 1.16 LAB GLB 60-105 mg/dL Glucose,Whole Bld High 130 LAB LACT 0.5-2.2 mmol/L Lactate 1.5 Performed By: #### ALLBG #### [facility] [address] [place], [place] [address] GASV + ALL Collected: 10/13/2017 Status: F Source: [place] 5:57 AM [facility] REPOSITORY TYPE CODE TESTS RESULT OUT OF REFERENCE UNITS RANGE LAB VPH 7.32-7.42 pH High 7.43 LAB VPC2 42-55 mm Hg pCO2 42 LAB VPO2 35-45 mm Hg pO2 Low 33 LAB VBE mmol/L Base Excess 3 LAB VHC3 24-28 mmol/L Bicarbonate 27 LAB VC2C 25-29 mmol/L CO2 Content 28 LAB O2HBCX 60-85 % Oxyhemoglobin, Low Willi. 55 LAB CO <2.0 % Carboxyhemoglobin,V 1.2 en LAB METHB 0.4-1.5 % Methemoglobin 1.0 LAB VTMP C Temperature, Body 37.0 LAB VPHTC 7.32-7.42 pH, Temp High Corrected 7.43 LAB VPC2T mm Hg pCO2, Temp Correct 42 LAB VPO2T mm Hg pO2, Temp Corrected 33 LAB NAB 135-146 mmol/L Sodium,Whole Bld High 151 LAB KWB 3.5-5.0 mmol/L Potassium, Whole Bld 4.1 LAB HGBB 13.0-17.0 g/dL Low Hemoglobin,Total,AC 9.0 L LAB HCTB 39.0-51.0 % Hematocrit, ACL Low 28 LAB IC 1.08-1.30 mmol/L Calcium, Ion, WB 1.15 LAB GLB 60-105 mg/dL Glucose,Whole Bld High 115 LAB LACT 0.5-2.2 mmol/L Lactate 1.6 Performed By: #### VALLBG #### [facility] [address] [place], [place] [address] GASA + ALL Collected: 10/13/2017 Status: F Source: [place] FOR 5:53 AM [facility] REPOSITORY TYPE CODE TESTS RESULT OUT OF REFERENCE UNITS RANGE LAB PH 7.35-7.45 pH High 7.46 LAB PCO2 34-46 mm Hg pCO2 36 LAB PO2 85-95 mm Hg pO2 High 112 LAB BE mmol/L Base Excess 2 LAB HCO3 22-26 mmol/L Bicarbonate 25 LAB CO2CT 22.0-28.0 mmol/L CO2 Content 26 LAB O2HB 95-98 % Oxyhemoglobin, Art. 96 LAB COHB 0-5.0 % Carboxyhemoglobin,A 1.2 rt LAB MHGB 0.4-1.5 % Methemoglobin 0.9 LAB TEMP C Temperature, Body 37.0 LAB PHTC 7.35-7.45 pH, Temp High Corrected 7.46 LAB PCO2T 34-46 mm Hg pCO2, Temp Correct 36 LAB PO2T mm Hg pO2, Temp Corrected 112 LAB NAB 135-146 mmol/L Sodium,Whole Bld High 151 LAB KWB 3.5-5.0 mmol/L Potassium, Whole Bld 4.2 LAB HGBB 13.0-17.0 g/dL Low Hemoglobin,Total,AC 9.1 L LAB HCTB 39.0-51.0 % Hematocrit, ACL Low 28 LAB IC 1.08-1.30 mmol/L Calcium, Ion, WB 1.17 LAB GLB 60-105 mg/dL Glucose,Whole Bld High 115 LAB LACT 0.5-2.2 mmol/L Lactate 1.5 Performed By: #### ALLBG #### [facility] [address] [place], [place] [address] GASV + ALL Collected: 10/13/2017 Status: F Source: [place] 3:44 AM [facility] REPOSITORY TYPE CODE TESTS RESULT OUT OF REFERENCE UNITS RANGE LAB VPH 7.32-7.42 pH High 7.43 LAB VPC2 42-55 mm Hg pCO2 42 LAB VPO2 35-45 mm Hg pO2 Low 32 LAB VBE mmol/L Base Excess 3 LAB VHC3 24-28 mmol/L Bicarbonate 27 LAB VC2C 25-29 mmol/L CO2 Content 28 LAB O2HBCX 60-85 % Oxyhemoglobin, Low Willi. 55 LAB CO <2.0 % Carboxyhemoglobin,V 1.4 en LAB METHB 0.4-1.5 % Methemoglobin 0.9 LAB VTMP C Temperature, Body 37.0 LAB VPHTC 7.32-7.42 pH, Temp High Corrected 7.43 LAB VPC2T mm Hg pCO2, Temp Correct 42 LAB VPO2T mm Hg pO2, Temp Corrected 32 LAB NAB 135-146 mmol/L Sodium,Whole Bld High 150 LAB KWB 3.5-5.0 mmol/L Potassium, Whole Bld 3.8 LAB HGBB 13.0-17.0 g/dL Low Hemoglobin,Total,AC 9.0 L LAB HCTB 39.0-51.0 % Hematocrit, ACL Low 28 LAB IC 1.08-1.30 mmol/L Calcium, Ion, WB 1.14 LAB GLB 60-105 mg/dL Glucose,Whole Bld High 112 LAB LACT 0.5-2.2 mmol/L Lactate 1.3 Performed By: #### VALLBG #### [facility] [address] [place], [place] [address] GASA + ALL Collected: 10/13/2017 Status: F Source: [place] FOR 3:39 AM [facility] RADIANCE USE ONLY REPOSITORY TYPE CODE TESTS RESULT OUT OF REFERENCE UNITS RANGE LAB PH 7.35-7.45 pH High 7.47 LAB PCO2 34-46 mm Hg pCO2 36 LAB PO2 85-95 mm Hg pO2 90 LAB BE mmol/L Base Excess 2 LAB HCO3 22-26 mmol/L Bicarbonate 26 LAB CO2CT 22.0-28.0 mmol/L CO2 Content 27 LAB O2HB 95-98 % Oxyhemoglobin, Art. 95 LAB COHB 0-5.0 % Carboxyhemoglobin,A 1.7 rt LAB MHGB 0.4-1.5 % Methemoglobin 0.8 LAB TEMP C Temperature, Body 37.0 LAB PHTC 7.35-7.45 pH, Temp High Corrected 7.47 LAB PCO2T 34-46 mm Hg pCO2, Temp Correct 36 LAB PO2T mm Hg pO2, Temp Corrected 90 LAB NAB 135-146 mmol/L Sodium,Whole Bld High 150 LAB KWB 3.5-5.0 mmol/L Potassium, Whole Bld 3.8 LAB HGBB 13.0-17.0 g/dL Low Hemoglobin,Total,AC 8.9 L LAB HCTB 39.0-51.0 % Hematocrit, ACL Low 28 LAB IC 1.08-1.30 mmol/L Calcium, Ion, WB 1.13 LAB GLB 60-105 mg/dL Glucose,Whole Bld High 112 LAB LACT 0.5-2.2 mmol/L Lactate 1.4 Performed By: #### ALLBG #### [facility] [address] [place], [place] [address] GASV + ALL Collected: 10/13/2017 Status: F Source: [place] 12:26 AM [facility] [place] REPOSITORY TYPE CODE TESTS RESULT OUT OF REFERENCE UNITS RANGE LAB VPH 7.32-7.42 pH High 7.45 LAB VPC2 42-55 mm Hg pCO2 42 LAB VPO2 35-45 mm Hg pO2 Low 32 LAB VBE mmol/L Base Excess 5 LAB VHC3 24-28 mmol/L Bicarbonate High 29 LAB VC2C 25-29 mmol/L CO2 Content High 30 LAB O2HBCX 60-85 % Oxyhemoglobin, Low Willi. 56 LAB CO <2.0 % Carboxyhemoglobin,V 0.8 en LAB METHB 0.4-1.5 % Methemoglobin 1.0 LAB VTMP C Temperature, Body 37.0 LAB VPHTC 7.32-7.42 pH, Temp High Corrected 7.45 LAB VPC2T mm Hg pCO2, Temp Correct 42 LAB VPO2T mm Hg pO2, Temp Corrected 32 LAB NAB 135-146 mmol/L Sodium,Whole Bld 146 LAB KWB 3.5-5.0 mmol/L Potassium, Whole Bld 3.6 LAB HGBB 13.0-17.0 g/dL Low Hemoglobin,Total,AC 8.9 L LAB HCTB 39.0-51.0 % Hematocrit, ACL Low 28 LAB IC 1.08-1.30 mmol/L Calcium, Ion, WB 1.10 LAB GLB 60-105 mg/dL Glucose,Whole Bld High 108 LAB LACT 0.5-2.2 mmol/L Lactate 1.5 Performed By: #### VALLBG #### [facility] [address] [place], [place] [address] GASA + ALL Collected: 10/13/2017 Status: F Source: [place] FOR 12:24 AM [facility] USE ONLY REPOSITORY TYPE CODE TESTS RESULT OUT OF REFERENCE UNITS RANGE LAB PH 7.35-7.45 pH High 7.49 LAB PCO2 34-46 mm Hg pCO2 37 LAB PO2 85-95 mm Hg pO2 95 LAB BE mmol/L Base Excess 4 LAB HCO3 22-26 mmol/L Bicarbonate High 27 LAB CO2CT 22.0-28.0 mmol/L CO2 Content High 29 LAB O2HB 95-98 % Oxyhemoglobin, Art. 96 LAB COHB 0-5.0 % Carboxyhemoglobin,A 0.7 rt LAB MHGB 0.4-1.5 % Methemoglobin 1.1 LAB TEMP C Temperature, Body 37.0 LAB PHTC 7.35-7.45 pH, Temp High Corrected 7.49 LAB PCO2T 34-46 mm Hg pCO2, Temp Correct 37 LAB PO2T mm Hg pO2, Temp Corrected 95 LAB NAB 135-146 mmol/L Sodium,Whole Bld 146 LAB KWB 3.5-5.0 mmol/L Potassium, Whole Bld 3.7 LAB HGBB 13.0-17.0 g/dL Low Hemoglobin,Total,AC 9.1 L LAB HCTB 39.0-51.0 % Hematocrit, ACL Low 28 LAB IC 1.08-1.30 mmol/L Calcium, Ion, WB 1.10 LAB GLB 60-105 mg/dL Glucose,Whole Bld High 110 LAB LACT 0.5-2.2 mmol/L Lactate 1.6 Performed By: #### ALLBG #### [facility] [address] [id number] XR CHEST 1V FRONTAL Observed: 10/13/2017 Status: F Source: [facility] 12:23 AM [facility] REPOSITORY * * *Final Report* * * DATE OF EXAM: Oct 13 2017 12:23AM IVANNA [id number] - XR CHEST 1V FRONTAL PORT / PROCEDURE REASON: Postoperative state * * * * Physician Interpretation * * * * CHEST RADIOGRAPH (PORTABLE SINGLE VIEW AP) Exam Date/Time: 10/13/2017 12:23 AM Indications: Postoperative state M: XCP_3 Comparison: 1 day earlier RESULTS: See Impression. IMPRESSION: Lines, Tubes, and Devices: Interval placement of nasogastric tube overlying stomach and persistent surgical sponge material overlying presumed open chest with otherwise stable support lines and tubes. Lungs and Pleura: Pulmonary edema, effusions and overlying atelectasis unchanged. No pneumothorax. Cardiomediastinal silhouette: Stable cardiac silhouette. Silver Wrapper: PSCJessenia Transcribe Date/Time: Oct 13 2017 7:53A Dictated by : CIRILO MATUTE MD This examination was interpreted and the report reviewed and electronically signed by: CIRILO MATUTE MD on Oct 13 2017 7:56AM EST [id number] CBC Collected: 10/13/2017 Status: F Source: [place] 12:07 AM [facility] REPOSITORY TYPE CODE TESTS RESULT OUT OF REFERENCE UNITS RANGE LAB WBC 3.70-11.00 k/uL WBC 8.80 LAB RBC 4.20-6.00 m/uL Low RBC 2.93 LAB HGB 13.0-17.0 g/dL Low Hemoglobin 8.7 LAB HCT 39.0-51.0 % Low Hematocrit 27.0 LAB MCV 80.0-100.0 fL MCV 92.2 LAB MCH 26.0-34.0 pG MCH 29.7 LAB MCHC 30.5-36.0 g/dL MCHC 32.2 LAB RDWCV 11.5-15.0 % RDW-CV High 15.3 LAB PLTCT 150-400 k/uL Low Platelet Count 137 LAB MPV 9.0-12.7 fL MPV 10.6 LAB ABSNUC <0.01 k/uL Absolute nRBC <0.01 Performed By: #### CBC, CMP #### [facility] [address] [place], [place] [address] COMP METABOLIC PANEL Collected: 10/13/2017 Status: F Source: [place] 12:07 AM [facility] REPOSITORY TYPE CODE TESTS RESULT OUT OF REFERENCE UNITS RANGE LAB TP 6.3-8.0 g/dL Low Protein, Total 5.7 LAB ALB 3.9-4.9 g/dL Low Albumin 3.1 Result Comment: Result rechecked. LAB CA 8.5-10.2 mg/dL Low Calcium, Total 8.1 LAB TBIL 0.2-1.3 mg/dL Bilirubin, High Total 4.0 LAB ALKP 36-108 U/L Alkaline Phosphatase 71 LAB AST 14-40 U/L AST High 95 LAB GLU 74-99 mg/dL Glucose High 108 Result Comment: The [place] [employer] (ADA) provides guidance for cutoff values for fasting glucose and random glucose. The ADA defines fasting as no caloric intake for at least 8 hours. Fas ting plasma glucose results between 100 to 125 mg/dL indicate increased risk for diabetes (prediabetes). Fasting plasma glucose results greater than or equal to 126 mg/dL meet the criteria for diagnosis of diabetes. In the absence of unequivocal hyperglycemia, results should be confirmed by repeat testing. In a patient with classic symptoms of hyperglycemia or hyperglycemic crisis, random plasma glucose results greater than or equal to 200 mg/dL meet the criteria for diagnosis of diabetes. Reference: Standards of Medical Care in Diabetes 2016, [place] [employer]. Diabetes Care. 2016.39(Suppl 1). LAB BUN 9-24 mg/dL BUN High 33 LAB CRET 0.73-1.22 mg/dL Creatinine High 1.71 LAB NA 136-144 mmol/L Sodium High 148 Result Comment: Result rechecked. LAB K 3.7-5.1 mmol/L Potassium 3.9 LAB CL 97-105 mmol/L Chloride High 110 LAB CO2 22-30 mmol/L CO2 28 LAB AGAP 9-18 mmol/L Anion Gap 10 LAB ALT 10-54 U/L ALT High 183 LAB GFRAA eGFR- Amer. 51 LAB GFRNAA . eGFR-All Other Races 42 Result Comment: eGFR (Estimated GFR) Units of measure: mL/min/1.73 meters squared eGFR is derived from the reexpressed MDRD Study equation using the following parameters: serum creatinine, age, gender and race. The creatinine assay has been calibrated to be traceable to IDKY. An eGFR <60 mL/min/1.73m2 for >3 months is consistent with chronic kidney disease. Refer to KDOQI guidelines for clinical interpretation. In patients with unstable renal function, e.g. those with acute kidney injury, the eGFR may not accurately reflect actual GFR. Performed By: #### CBC, CMP #### [facility] [address] [place], [place] [address] GASV + ALL Collected: 10/12/2017 Status: F Source: [place] 8:52 PM [facility] [place] REPOSITORY TYPE CODE TESTS RESULT OUT OF REFERENCE UNITS RANGE LAB VPH 7.32-7.42 pH High 7.45 LAB VPC2 42-55 mm Hg pCO2 44 LAB VPO2 35-45 mm Hg pO2 38 LAB VBE mmol/L Base Excess 6 LAB VHC3 24-28 mmol/L Bicarbonate High 30 LAB VC2C 25-29 mmol/L CO2 Content High 31 LAB O2HBCX 60-85 % Oxyhemoglobin, Willi. 66 LAB CO <2.0 % Carboxyhemoglobin,V 0.8 en LAB METHB 0.4-1.5 % Methemoglobin Low 0.2 LAB VTMP C Temperature, Body 37.0 LAB VPHTC 7.32-7.42 pH, Temp High Corrected 7.45 LAB VPC2T mm Hg pCO2, Temp Correct 44 LAB VPO2T mm Hg pO2, Temp Corrected 38 LAB NAB 135-146 mmol/L Sodium,Whole Bld 145 LAB KWB 3.5-5.0 mmol/L Potassium, Whole Low Bld 3.4 LAB HGBB 13.0-17.0 g/dL Low Hemoglobin,Total,AC 9.7 L LAB HCTB 39.0-51.0 % Hematocrit, ACL Low 30 LAB IC 1.08-1.30 mmol/L Calcium, Ion, WB 1.12 LAB GLB 60-105 mg/dL Glucose,Whole Bld High 127 LAB LACT 0.5-2.2 mmol/L Lactate 1.7 Performed By: #### VALLBG #### [facility] [address] [place], [place] [address] GASA + ALL Collected: 10/12/2017 Status: F Source: [facility] 8:49 PM [facility] RADIANCE USE ONLY REPOSITORY TYPE CODE TESTS RESULT OUT OF REFERENCE UNITS RANGE LAB PH 7.35-7.45 pH High 7.49 LAB PCO2 34-46 mm Hg pCO2 37 LAB PO2 85-95 mm Hg pO2 High 110 LAB BE mmol/L Base Excess 5 LAB HCO3 22-26 mmol/L Bicarbonate High 28 LAB CO2CT 22.0-28.0 mmol/L CO2 Content High 29 LAB O2HB 95-98 % Oxyhemoglobin, Art. 98 LAB COHB 0-5.0 % Carboxyhemoglobin,A 0.8 rt LAB MHGB 0.4-1.5 % Methemoglobin Low 0.1 LAB TEMP C Temperature, Body 37.0 LAB PHTC 7.35-7.45 pH, Temp High Corrected 7.49 LAB PCO2T 34-46 mm Hg pCO2, Temp Correct 37 LAB PO2T mm Hg pO2, Temp Corrected 110 LAB NAB 135-146 mmol/L Sodium,Whole Bld 144 LAB KWB 3.5-5.0 mmol/L Potassium, Whole Low Bld 3.4 LAB HGBB 13.0-17.0 g/dL Low Hemoglobin,Total,AC 9.7 L LAB HCTB 39.0-51.0 % Hematocrit, ACL Low 30 LAB IC 1.08-1.30 mmol/L Calcium, Ion, WB 1.09 LAB GLB 60-105 mg/dL Glucose,Whole Bld High 127 LAB LACT 0.5-2.2 mmol/L Lactate 1.8 Performed By: #### ALLBG #### [facility] [address] [place] [id number] PROGRESS Observed: 10/12/2017 Status: COMPLETED Source: [place] 7:07 PM [facility] REPOSITORY HNO ID: [id number] Author: Balbir (Julio Cesar) Abigail Service: Neurosurgery Author Type: Resident Type: Progress Notes Filed: 10/12/2017 7:07 PM Note Text: Neurosurgery Progress Note: Jose Gustafson [phone] S: POC O: 10/12/17 0918 10/12/17 0930 10/12/17 0950 10/12/17 1010 BP: Pulse: 89 89 89 89 Resp: 20 Temp: TempSrc: SpO2: 99% 99% 99% 98% Weight: Height: Exam: E1 V1T M1 PERRL + weak corneals + weak cough Flap full, but soft Dressing c/d/i Drain bloody A/P: 52 y/o M s/p: 10/12 decompressive R hemicraniectomy - neuro stable - CTH reviewed - f/u drain output to suction - maintain Na 145-155 - keppra 750 mg bid x 2 weeks - okay to resume ASA 3/18 at 1400 - SQH okay on 10/14 - HOB elevated - okay to continue sedation - rest per primary - will follow Balbri Hayes MD PGY-3, Neurological Surgery Pager # [phone] October 12, 2017 Please page [phone] after 6 PM and on weekends PROGRESS Observed: 10/12/2017 Status: COMPLETED Source: [place] 6:30 PM [facility] REPOSITORY HNO ID: [id number] Author: Elvira Royal ([facility]) [place] Service: Critical Care Author Type: Nurse Practitioner Type: Progress Notes Filed: 10/12/2017 6:46 PM Note Text: [facility] Note Name: Jose Gustafson Coordination of Care Note: Indication for Surgery: Spontaneous Rupture of Aorta LVEF: Normal RVF: Normal Important/Relevant PMH/PSH: HTN, asthma, hx kidney stones Preoperative Hospital Course (narrative): 52 yo M with PMH HTN, Asthma, and hx of kidney stones who is transferred to [facility] for 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 Procedure/Surgeries: 10/08/2017 Total arch replacement with FET under DHCA 10/08/2017 Chest exploration / Evacuation of hematoma / Open chest with wound vac 10/10/2017 Chest opened with wound VAC placement (Attempt closure, but fail due to desaturation) 10/12/2017 - Right decompressive hemicraniectomy for R MCA stroke and malignant cerebral edema Airway Difficulty: Grade I - No special instrumentation OR Course: Transient or mild hypotension and Coagulopathy/bleeding Pacing wires: Yes: Ventricular: When discontinuing pacing wires: Cut all pacing wires Postoperative Course/General Impression: (narrative or log of major events with date of onset): Arrived on iVeletri, open chest, maintain overnight, plan to go back to OR later today for possible closure. Coagulopathy/bleeding intraop, transfused multiple blood products in OR, transfuse postop as needed. Hypotensive intraop, arrived on 4mcg Levo and 0.02 Vaso. The patient continued to bleed overnight and went back to the OR the following morning and large amount of clots were removed but no active bleeding. Patient with new cva overnight, mca on right with some mass effect--contact neurology this am for follow up, and follow up on carotids and tcd results with neurology Issues to communicate at signout: OPEN CHEST - s/p chest exploration Hypoxia - Hypotension - Titrate NE/Vaso for MAP > 65 New RT sided MCA CVA s/p right hemicraniectomy: Continue 3%@ 75/hr for cerebral edema, target Na 140-150 NO ASA, HEPARIN Other Problems I Reviewed and/or Managed During This Encounter: Problem Hypoxia A/p - remains hypoxic on increased fio2 AND peep. CXR with atelectasis and increased vascular markings. Remains on epoprostenol. Postoperative Hypotension A/P:Continue current regimen of norepinephrine and vaso but keep MAP at 80 for neuro protection Stroke (Cerebrum) (Hcc) Pt with Rt MCA stroke - Identified with L sided weakness overnight. Neuro following - Repeat Head CT today - Keep MAP 80-90 for neuro protection Awaiting further Neuro follow-up 10/12/2017 - 10/12/2017 - Right decompressive hemicraniectomy for R MCA stroke and malignant cerebral edema PHYSICAL EXAM: Neuro: Sedation Cardiovascular: Rhythm: regular rate and rhythm and Rate:normal sinus rhythm, paced Pulmonary: Clear to auscultation and Breath sounds equal Ventilator: Intubated: PCV; FiO2: 50; PEEP: 14 cmH2O; Not ready for weaning; HOB elevated 40 degrees: Yes; Oral care with chlorhexidine: Yes; Was sedation turned off? No: Why? Contraindicated because patient is unstable; chest is open s/p hemicraniectomy CXR Findings: Atelectasis Bilateral, Increased Vascular Markings Bilateral and CXR personally viewed and interpreted by ICU staff Nurse Practitioner Gastrointestinal: Abdominal: Soft DAILY CVICU CHECKLIST VTE Prophylaxis: Pharmacologic No - because bleeding risk and thrombocytopenia VTE Prophylaxis: Mechanical: Yes Line infection prevention: Can CVC, PAC or arterial line be removed: No Continued need for urinary catheter: Yes - clinical indication: Patient post major surgery requiring fluid balance and input and output measurement. Restraints needed: No This patient has a high probability of sudden, clinically significant deterioration, which requires the highest level of preparedness to intervene urgently. I participated in the decision making and personally managed or directed the management of the following life and organ supporting interventions that required my frequent assessment to treat or prevent imminent deterioration of: I personally spent 44 minutes of critical care time treating the patient. Time devoted to any procedures I billed separately is not included. SIGNATURE: Elvira De Los Santos CNP DATE of SERVICE: 10/12/2017 TIME of SERVICE: 6:30 PM GASV + ALL Collected: 10/12/2017 Status: F Source: [place] 6:29 PM [facility] REPOSITORY TYPE CODE TESTS RESULT OUT OF REFERENCE UNITS RANGE LAB VPH 7.32-7.42 pH High 7.46 LAB VPC2 42-55 mm Hg pCO2 42 LAB VPO2 35-45 mm Hg pO2 Low 32 LAB VBE mmol/L Base Excess 6 LAB VHC3 24-28 mmol/L Bicarbonate High 30 LAB VC2C 25-29 mmol/L CO2 Content High 31 LAB O2HBCX 60-85 % Oxyhemoglobin, Low Willi. 58 LAB CO <2.0 % Carboxyhemoglobin,V 0.8 en LAB METHB 0.4-1.5 % Methemoglobin 0.9 LAB VTMP C Temperature, Body 37.0 LAB VPHTC 7.32-7.42 pH, Temp High Corrected 7.46 LAB VPC2T mm Hg pCO2, Temp Correct 42 LAB VPO2T mm Hg pO2, Temp Corrected 32 LAB NAB 135-146 mmol/L Sodium,Whole Bld 142 LAB KWB 3.5-5.0 mmol/L Potassium, Whole Bld 4.0 LAB HGBB 13.0-17.0 g/dL Low Hemoglobin,Total,AC 10.0 L LAB HCTB 39.0-51.0 % Hematocrit, ACL Low 31 LAB IC 1.08-1.30 mmol/L Calcium, Ion, WB 1.20 LAB GLB 60-105 mg/dL Glucose,Whole Bld High 116 LAB LACT 0.5-2.2 mmol/L Lactate 1.7 Performed By: #### VALLBG #### [facility] [address] [place], [place] [address] GASA + ALL Collected: 10/12/2017 Status: F Source: [place] FOR 6:26 PM [facility] RADIANCE USE ONLY REPOSITORY TYPE CODE TESTS RESULT OUT OF REFERENCE UNITS RANGE LAB PH 7.35-7.45 pH High 7.51 LAB PCO2 34-46 mm Hg pCO2 36 LAB PO2 85-95 mm Hg pO2 High 112 LAB BE mmol/L Base Excess 5 LAB HCO3 22-26 mmol/L Bicarbonate High 28 LAB CO2CT 22.0-28.0 mmol/L CO2 Content High 29 LAB O2HB 95-98 % Oxyhemoglobin, Art. 97 LAB COHB 0-5.0 % Carboxyhemoglobin,A 0.5 rt LAB MHGB 0.4-1.5 % Methemoglobin 0.9 LAB TEMP C Temperature, Body 37.0 LAB PHTC 7.35-7.45 pH, Temp High Corrected 7.51 LAB PCO2T 34-46 mm Hg pCO2, Temp Correct 36 LAB PO2T mm Hg pO2, Temp Corrected 112 LAB NAB 135-146 mmol/L Sodium,Whole Bld 143 LAB KWB 3.5-5.0 mmol/L Potassium, Whole Bld 4.1 LAB HGBB 13.0-17.0 g/dL Low Hemoglobin,Total,AC 10.2 L LAB HCTB 39.0-51.0 % Hematocrit, ACL Low 32 LAB IC 1.08-1.30 mmol/L Calcium, Ion, WB 1.18 LAB GLB 60-105 mg/dL Glucose,Whole Bld High 115 LAB LACT 0.5-2.2 mmol/L Lactate 1.7 Performed By: #### ALLBG #### [facility] [address] [place] [address] CONSULT Observed: 10/12/2017 Status: COMPLETED Source: [place] 5:26 PM [facility] REPOSITORY HNO ID: [id number] Author: Juan Pablo Linda (Fel) Service: Critical Care Author Type: Fellow Type: Consults Filed: 10/12/2017 5:51 PM Note Text: NEURO ICU - CONSULT NOTE SERVICE DATE: 10/12/2017 SERVICE TIME: 5:27 PM ID: 52 yo M s/p Total Arch replacement after Type A aortic dissection on 10/07 with procedural complications which required further surgeries on 10/08 and 10/10. He was found to have R-MCA ischemic stroke with cerebral edema on CTH on 10/11 after he had sudden onset L sided weakness. Neuro ICU has been following since then for the management of cerebral edema post R MCA ischemic stroke. He has been on hypertonic saline infusion since then to decrease brain edema. Overnight, he got a repeat CTH which showed increased swelling with worsening R to L midline shift. He received 23.4% HTS boluses and his maintenance was switched from 2% to 3% HTS. His last Na was 137. NSGY took him to OR this AM for R sided decompressive hemicrani for R MCA ischemic stroke and cerebral edema. Post op he came back to CVICU. Objective DETAILED REVIEW VITAL SIGNS (last 24hrs min/max): No Data Recorded Pulse Av.8 Min: 77 Max: 89 Arterial BP 1 Min: 97/50 Max: 135/73 Resp Av.9 Min: 20 Max: 30 SpO2 Av.8 % Min: 89 % Max: 99 % CVP Av.8 Min: 3 Max: 15 No Data RecordedNo Data RecordedNo Data RecordedNo Data Recorded Pain Score: 0/10 INTAKE/OUTPUT: Intake/Output Summary (Last 24 hours) at 10/12/17 1727 Last data filed at 10/12/17 1430 Gross per 24 hour Intake 3148 ml Output 6520 ml Net -3372 ml PHYSICAL EXAM AND PERTINENT DATA Neuro: On fentanyl AND propofol infusion Sedation not held for neuro exam as per NSGY recs Couldn't assess motor/sensory/cerebellar fuction Pupils 3-4mm bilat and brisk Absent corneal bilateral No cough/gag. Not breathing over the ventilator. CV: RRR, open midline vertical chest wound with dressing noted Pulm: Intubated Mechanical Ventilation: GI/: soft Current Facility-Administered Medications: sodium chloride 3 % infusion INTRAVENOUS CONTINUOUS levETIRAcetam 750 mg in NaCl 0.9% 100 mL (KEPPRA) 750 mg INTRAVENOUS BID calcium chloride 1 g in D5W 100 mL 1 g INTRAVENOUS ONCE vancomycin 1.25 g in D5W 250 mL (VANCOCIN) 1.25 g INTRAVENOUS q 24 HR furosemide 500 mg in empty bottle 50 mL IV infusion (LASIX) 10 mg/hr INTRAVENOUS CONTINUOUS epoprostenol INHALATION 30,000 ng/mL in 0.9% NaCl 50 mL (VELETRI) 0.01-0.05 mcg/kg/min (Cashion) INHALATION CONTINUOUS PHENYLephrine 80 mg in D5W 250 mL (NEOSYNEPHRINE) 25-200 mcg/min INTRAVENOUS CONTINUOUS Chlorhexidine Gluconate 0.12 % 15 mL (PERIDEX) 15 mL ORAL q [address] 20 mg tab(s) (PROTONIX) 20 mg ORAL DAILY (6 AM) Or pantoprazole 20 mg CUP (PROTONIX) 20 mg ORAL/FEEDING TUBE DAILY (6 AM) senna-docusate 8.6-50 mg 1 tablet (SENNA-S) 1 tablet ORAL BID bisacodyl 10 mg suppository (DULCOLAX) 10 mg RECTAL DAILY PRN ondansetron (PF) 4 mg injection (ZOFRAN) 4 mg INTRAVENOUS q 6 H PRN potassium chloride iv piggyback 10 mEq/100mL 10 mEq INTRAVENOUS PRN Or potassium chloride iv piggyback 20 mEq/50 mL 20 mEq INTRAVENOUS PRN Or potassium chloride 40-120 mEq oral powder (KLOR-CON) 40-120 mEq ORAL/FEEDING TUBE PRN 0.9% NaCl 3-5 mL 3-5 mL INTRAVENOUS q 12 H 0.9% NaCl 10 mL 10 mL INTRAVENOUS q 12 H insulin regular human iv bolus 2-10 Units 2-10 Units INTRAVENOUS PRN And insulin regular 250 units in NaCl 0.9% 250 mL iv infusion - HVI CVICU NOMOGRAM 0.5-40 Units/hr INTRAVENOUS CONTINUOUS dextrose 50% in water 25 mL syringe 12.5 g INTRAVENOUS PRN dextrose 5% in NaCl 0.2% iv infusion 5 mL/hr INTRAVENOUS CONTINUOUS insulin glargine 0-40 Units pen (long acting) (LANTUS SOLOSTAR, BASAGLAR) 0-40 Units SUBCUTANEOUS As Directed nitroglycerin 50 mg in D5W 250 mL 5-200 mcg/min INTRAVENOUS CONTINUOUS nitroglycerin injection 100 mcg injection syringe 100 mcg INTRAVENOUS PRN PHENYLephrine 0.1 mg injection 100 mcg INTRAVENOUS PRN fentaNYL [employer]ENT 20 mcg/mL in NaCl 0.9% 100 mL INTRAVENOUS CONTINUOUS And naloxone 0.04 mg injection (NARCAN) 0.04 mg INTRAVENOUS PRN lidocaine 5 % 1 Patch (LIDODERM) 1 Patch TRANSDERMAL DAILY And lidocaine patch - REMOVE OTHER AT BEDTIME And lidocaine - VERIFY PATCH OTHER q 8 H fentaNYL 50 mcg/mL 25-75 mcg injection (SUBLIMAZE) 25-75 mcg INTRAVENOUS q 1 H PRN acetaminophen 650 mg tab(s) (TYLENOL) 650 mg ORAL/FEEDING TUBE q 4 H PRN oxyCODONE IR 5-10 mg tab(s) (ROXICODONE) 5-10 mg ORAL/FEEDING TUBE q 6 H PRN propofol infusion (DIPRIVAN) 10-50 mcg/kg/min (Order-Specific) INTRAVENOUS CONTINUOUS propofol iv bolus 10-50 mg (DIPRIVAN) 10-50 mg INTRAVENOUS q 1 H PRN vasopressin 20 units in D5W 100 mL (VASOSTRICT) 0.01-0.1 Units/min INTRAVENOUS CONTINUOUS NORepinephrine 4 mg in D5W 250 mL (LEVOPHED) 0.6-20 mcg/min INTRAVENOUS CONTINUOUS fentaNYL iv infusion 20 mcg/mL in NaCl 0.9% 100 mL 25-250 mcg/hr INTRAVENOUS CONTINUOUS ciprofloxacin 400 mg in D5W 200 mL (CIPRO) 400 mg INTRAVENOUS q 12 HR vancomycin dosing and monitoring per pharmacy OTHER As Directed EPINEPHrine iv infusion 4 mg in D5W 250 mL 0.5-4 mcg/min INTRAVENOUS CONTINUOUS albuterol 2.5 mg /3 mL (0.083 %) 2.5 mg (PROVENTIL) 2.5 mg INHALATION QID budesonide 1 mg/2 mL 1 mg nebulizer suspension (PULMICORT) 1 mg INHALATION BID amiodarone 360 mg in D5W 200 mL (NEXTERONE) 0.5-1 mg/min INTRAVENOUS CONTINUOUS Assessment/Plan 52 yo M with typa A dissection s/p total arch replacement and complications, now with R-MCA ischemic stroke s/p R sided decompressive hemicrani on 10/12. Recommendations: -Repeat CT head post procedure as per NSGY -Continue 3%@ 75/hr for cerebral edema for atleast next 24 hrs, target Na 140-150 -NICU will continue to follow. Patient discussed and seen with Staff Physician, Dr. Knox. SIGNATURE: Juan Pablo Linda MD PATIENT NAME: Jose Gustafson DATE: October 12, 2017 TIME: 5:27 PM PAGER/CONTACT #: [phone] GASV + ALL Collected: 10/12/2017 Status: F Source: [place] 4:00 PM [facility] [place] REPOSITORY TYPE CODE TESTS RESULT OUT OF REFERENCE UNITS RANGE LAB VPH 7.32-7.42 pH High 7.44 LAB VPC2 42-55 mm Hg pCO2 44 LAB VPO2 35-45 mm Hg pO2 35 LAB VBE mmol/L Base Excess 5 LAB VHC3 24-28 mmol/L Bicarbonate High 30 LAB VC2C 25-29 mmol/L CO2 Content High 31 LAB O2HBCX 60-85 % Oxyhemoglobin, Willi. 63 LAB CO <2.0 % Carboxyhemoglobin,V 0.6 en LAB METHB 0.4-1.5 % Methemoglobin Low 0.1 LAB VTMP C Temperature, Body 37.0 LAB VPHTC 7.32-7.42 pH, Temp High Corrected 7.44 LAB VPC2T mm Hg pCO2, Temp Correct 44 LAB VPO2T mm Hg pO2, Temp Corrected 35 LAB NAB 135-146 mmol/L Sodium,Whole Bld 140 LAB KWB 3.5-5.0 mmol/L Potassium, Whole Low Bld 3.3 LAB HGBB 13.0-17.0 g/dL Low Hemoglobin,Total,AC 9.7 L LAB HCTB 39.0-51.0 % Hematocrit, ACL Low 30 LAB IC 1.08-1.30 mmol/L Calcium, Ion, WB 1.08 LAB GLB 60-105 mg/dL Glucose,Whole Bld High 115 LAB LACT 0.5-2.2 mmol/L Lactate 1.5 Performed By: #### VALLBG #### [facility] [address] [place], [place] [address] GASA + ALL Collected: 10/12/2017 Status: F Source: [place] FOR 3:56 PM [facility] [place] RADIANCE USE ONLY REPOSITORY TYPE CODE TESTS RESULT OUT OF REFERENCE UNITS RANGE LAB PH 7.35-7.45 pH High 7.48 LAB PCO2 34-46 mm Hg pCO2 37 LAB PO2 85-95 mm Hg pO2 High 121 LAB BE mmol/L Base Excess 4 LAB HCO3 22-26 mmol/L Bicarbonate High 27 LAB CO2CT 22.0-28.0 mmol/L CO2 Content 28 LAB O2HB 95-98 % Oxyhemoglobin, Art. 98 LAB COHB 0-5.0 % Carboxyhemoglobin,A 0.7 rt LAB MHGB 0.4-1.5 % Methemoglobin Low 0.0 LAB TEMP C Temperature, Body 37.0 LAB PHTC 7.35-7.45 pH, Temp High Corrected 7.48 LAB PCO2T 34-46 mm Hg pCO2, Temp Correct 37 LAB PO2T mm Hg pO2, Temp Corrected 121 LAB NAB 135-146 mmol/L Sodium,Whole Bld 141 LAB KWB 3.5-5.0 mmol/L Potassium, Whole Low Bld 3.2 LAB HGBB 13.0-17.0 g/dL Low Hemoglobin,Total,AC 9.4 L LAB HCTB 39.0-51.0 % Hematocrit, ACL Low 29 LAB IC 1.08-1.30 mmol/L Calcium, Ion, WB Low 1.04 LAB GLB 60-105 mg/dL Glucose,Whole Bld High 107 LAB LACT 0.5-2.2 mmol/L Lactate 1.5 Performed By: #### ALLBG #### [facility] [address] [place], [place] [address] CT BRAIN WO IVCON Observed: 10/12/2017 Status: F Source: [place] 3:47 PM [facility] REPOSITORY * * *Final Report* * * DATE OF EXAM: Oct 12 2017 3:47PM [facility] [place] - CT BRAIN WO IVCON / PROCEDURE REASON: Herniation of the brain (HCC) * * * * Physician Interpretation * * * * EXAMINATION: CT BRAIN WO IVCON HISTORY: Herniation of the brain (HCC). Large right MCA territory infarct and decompressive right-sided craniectomy since the prior head CT. TECHNIQUE: Serial axial images without IV contrast were obtained from the vertex to the foramen magnum. MQ: [id number] CT Dose-Length Product (DLP): 513 mGy*cm CT Dose Reduction Employed: Automated exposure control(AEC) and iterative recon COMPARISON: 10/12/2017 at approximately 1:08 AM RESULT: Post-operative change: Since prior exam, right-sided craniectomy and herniation of brain parenchyma into the defect. Well demarcated large right MCA territory infarct involving right temporal, posterior frontal, and parietal lobe. Substantial swelling of the brain parenchyma and there continues to be midline shift to the left approximately 8 mm at the septum pellucidum and massa intermedia and gross flattening of right lateral ventricle. Acute change: As above. Patchy low-attenuation left cerebellar hemisphere, suspect patchy subacute infarct in this region. Hemorrhage: Acute blood byproducts in the subdural space, maximum thickness approximately 14 mm deep to the scalp flap (axial image 24 and adjacent contiguous images for reference). This does contribute to some extra-axial mass effect. Additional subdural blood is visible along the inner table of right frontal calvarium anterior to the craniectomy, T2-3 millimeters in thickness. Mass Lesion / Mass Effect: As above. Midline shift to the left. Slight shift of the brainstem towards the left, but quadrigeminal plate cisterns remain visible. Chronic change: No clear evidence for background chronic microvascular disease. Parenchyma: There is no significant volume loss. Ventricles: Gross flattening of right lateral ventricle related to generalized mass effect. Suspect minimal trapping of left lateral ventricle. Paranasal sinuses and skull base: Widespread patchy ethmoid inflammatory mucosal disease, peripheral mucosal thickening involving frontal, maxillary, and sphenoid chambers. Mastoid air cells and middle ear cavities are clear. Debris within the right external auditory canal is likely cerumen. The skull base and imaged soft tissues are unremarkable. IMPRESSION: Interval right-sided craniectomy as discussed above. There continues to be similar generalized mass effect with slight midline shift to the left. This is related to a combination of brain swelling related to the large right MCA territory infarct, as well as some extra-axial blood in the subdural space along the inner aspect of the scalp flap and minimally along the inner table of the remaining right frontal calvarium. Silver Wrapper: AMY Transcribe Date/Time: Oct 12 2017 3:47P Dictated by : ANDRADE CRAWFORD MD This examination was interpreted and the report reviewed and electronically signed by: ANDRADE CRAWFORD MD on Oct 12 2017 3:53PM EST [id number] [id number] POST Observed: 10/12/2017 Status: COMPLETED Source: [place] 2:03 PM [facility] REPOSITORY HNO ID: [id number] Author: Jennifer Ayala Service: Anesthesiology Author Type: Anesthesiologist Type: Anesthesia PostOp Filed: 10/12/2017 3:06 PM Note Text: POST ANESTHESIA EVALUATION NOTE SERVICE DATE: 10/12/2017 SERVICE TIME: 2:03 PM : 1965 s/p emergency right decompressive hemicraniectomy for R MCA stroke and Malignant cerebral edema Vitals: Validated Vital Signs: HR: 89 Paced; BP: 108/61 mmHg; CVP: 9 mmHg; PA: 27/15 mmHg; RR: 28; SpO2%: 97% (FiO2: 50%); Temperature: 37.6oC POST ANES STATUS: PACU/ICU Patient Condition: Critical Neurological Status: On intravenous sedation. Pulmonary Status: On invasive mechanical ventilation. Airway Control: Intubated on mechanical ventilation. Cardiovascular Status: Guarded, On vasopressor and On inotropes Pain: Adequately controlled Postoperative Nausea/Vomiting: No significant post operative nausea or vomiting Postoperative Hydration Status: Adequate. Anesthetic Complications: None Recommendation: Continue current plan of care and Further care per CTS/ICU/Floor team Other Remarks: SIGNATURE: Jennifer Ayala MD PHD PATIENT NAME: Jose Gustafson DATE: October 12, 2017 TIME: 2:03 PM PAGER/CONTACT #: [phone] GASA + ALL Collected: 10/12/2017 Status: F Source: [place] FOR 1:56 PM [facility] RADIANCE USE ONLY REPOSITORY TYPE CODE TESTS RESULT OUT OF REFERENCE UNITS RANGE LAB PH 7.35-7.45 pH 7.45 LAB PCO2 34-46 mm Hg pCO2 41 LAB PO2 85-95 mm Hg pO2 High 138 LAB BE mmol/L Base Excess 4 LAB HCO3 22-26 mmol/L Bicarbonate High 28 LAB CO2CT 22.0-28.0 mmol/L CO2 Content High 29 LAB O2HB 95-98 % Oxyhemoglobin, Art. 98 LAB COHB 0-5.0 % Carboxyhemoglobin,A 1.2 rt LAB MHGB 0.4-1.5 % Methemoglobin Low 0.2 LAB TEMP C Temperature, Body 37.0 LAB PHTC 7.35-7.45 pH, Temp Corrected 7.45 LAB PCO2T 34-46 mm Hg pCO2, Temp Correct 41 LAB PO2T mm Hg pO2, Temp Corrected 138 LAB NAB 135-146 mmol/L Sodium,Whole Bld 138 LAB KWB 3.5-5.0 mmol/L Potassium, Whole Low Bld 3.2 LAB HGBB 13.0-17.0 g/dL Low Hemoglobin,Total,AC 9.9 L LAB HCTB 39.0-51.0 % Hematocrit, ACL Low 31 LAB IC 1.08-1.30 mmol/L Calcium, Ion, WB 1.09 LAB GLB 60-105 mg/dL Glucose,Whole Bld High 119 LAB LACT 0.5-2.2 mmol/L Lactate 1.6 Performed By: #### ALLBG #### [facility] [address] [place], [place] [address] GASV + ALL Collected: 10/12/2017 Status: F Source: [place] 1:54 PM [facility] REPOSITORY TYPE CODE TESTS RESULT OUT OF REFERENCE UNITS RANGE LAB VPH 7.32-7.42 pH 7.39 LAB VPC2 42-55 mm Hg pCO2 50 LAB VPO2 35-45 mm Hg pO2 37 LAB VBE mmol/L Base Excess 4 LAB VHC3 24-28 mmol/L Bicarbonate High 29 LAB VC2C 25-29 mmol/L CO2 Content High 31 LAB O2HBCX 60-85 % Oxyhemoglobin, Willi. 66 LAB CO <2.0 % Carboxyhemoglobin,V 1.1 en LAB METHB 0.4-1.5 % Methemoglobin 0.7 LAB VTMP C Temperature, Body 37.0 LAB VPHTC 7.32-7.42 pH, Temp Corrected 7.39 LAB VPC2T mm Hg pCO2, Temp Correct 50 LAB VPO2T mm Hg pO2, Temp Corrected 37 LAB NAB 135-146 mmol/L Sodium,Whole Bld 138 LAB KWB 3.5-5.0 mmol/L Potassium, Whole Low Bld 3.2 LAB HGBB 13.0-17.0 g/dL Low Hemoglobin,Total,AC 9.9 L LAB HCTB 39.0-51.0 % Hematocrit, ACL Low 31 LAB IC 1.08-1.30 mmol/L Calcium, Ion, WB 1.10 LAB GLB 60-105 mg/dL Glucose,Whole Bld High 113 LAB LACT 0.5-2.2 mmol/L Lactate 1.5 Performed By: #### VALLBG #### [facility] [address] [place], [place] [address] OPERATIVE NO Observed: 10/12/2017 Status: COMPLETED Source: [place] 1:16 PM [facility] REPOSITORY HNO ID: [id number] Author: Florence Sharif Service: Neurosurgery Author Type: Physician Type: Operative Report Filed: 10/14/2017 10:54 AM Note Text: OPERATIVE/PROCEDURE REPORT LOG ID: [id number] Surgery/Procedure Date: 10/12/2017 Incision/Procedure Start Time: 11:27 AM Incision Close/Procedure End Time: 12:38 PM Surgeon(s)/Proceduralist(s) and Vise Hand(s): Surgeon(s) and Role: * Florence Sharif - Primary * Power Kathleen - Resident - Assisting Procedure(s): Right decompressive hemicraniectomy for R MCA stroke and malignant cerebral edema Anesthesia: General Procedure Details: Prior to induction of anesthesia, an audible huddle was performed confirming site of operation, planned operation, need for antibiotics, and other anticipated needs with surgical, nursing, and anesthesia teams. All agreed to proceed. The patient was positioned supine with a slight right shoulder roll. The surgical region was prepped and draped in the usual sterile fashion. All pressure points were verified to be padded appropriately. Prior to starting the operation the surgical team paused and performed an audible timeout. The surgical, nursing, and anesthesia personnel agreed with the procedure to be performed. Patient's previous scheduled IV anti-biotics were continued. Incision was made using #10 blade scalpel on the right side. Peyton clips were applied to the skin edges as was necessary for hemostasis. Myocutaneous flaps were then elevated with the temporalis muscle undermined to the root of the zygoma and keyhole for maximal bony exposure. Hemostasis was achieved. The intended craniectomy site was then marked with a wax bone pencil. Fossil holes were then placed in strategic places. Bony fragments were freed. The underlying dura was then stripped using a #3 [place]. Using a high speed air drill with guard and footplate, the craniectomy flap was then turned. The flap was carefully stripped of the dura and then passed off the field for storage in a sterile fashion. Hemostasis was achieved. Gelfoam pledgets and bone wax were placed over bony edges for hemostasis. The craniectomy was then extended using Leksel rongeurs inferiorly towards the temporal fossa. At this point, hemostasis was again confirmed and the dura was opened sharply. Using Metzenbaum scissors, the dura was opened in a stellate fashion. The dura was then elevated. The brain at this point was visually inspected. It was markedly tense. A sheet of Gelfilm was soaked and then overlaid on the brain over the dural flaps. Hemostasis was then achieved. Prior to closure, hemostasis was achieved. The wound was copiously irrigated. All retracting devices were removed from the wound. All temporary implants were removed from the wound. A drain was placed. Prior to final closure, surgical count was correct and verified x 2. The wound was closed in the usual fashion. Hudson used to close the skin. The wound was then dressed. At the end of the case, a sign out was performed whereby the anesthesia, surgical, and nursing teams re-confirmed the operation performed, any blood products to be distributed, specimens to be sent, or equipment issues. All parties agreed. Pre-Op/Pre-Procedure Diagnosis: stroke Post-Op/Post-Procedure Diagnosis: stroke Estimated Blood Loss: 300 mls Specimens: * No specimens in log * Implantable Devices: * No implants in log * Drains: x1 Complications: None The primary surgeon/proceduralist performed the entire procedure with resident assistance. SIGNATURE: Power Kathleen MD PATIENT NAME: Jose Gustafson DATE: October 12, 2017 TIME: 1:16 PM PAGER/CONTACT #: [email or web address] OP NOT Observed: 10/12/2017 Status: COMPLETED Source: [place] 12:33 PM [facility] REPOSITORY HNO ID: [id number] Author: Florence Sharif Service: Neurosurgery Author Type: Physician Type: Brief Op Note Filed: 10/12/2017 12:35 PM Note Text: BRIEF OPERATIVE / PROCEDURE NOTE LOG ID: [id number] Surgery/Procedure Date: 10/12/2017 Incision/Procedure Start Time: 11:27 AM Incision Close/Procedure End Time: 1235 Surgeon(s)/Proceduralist(s) and Vise Hand(s): Surgeon(s) and Role: * Florence Sharif - Primary * Power Kathleen - Resident - Assisting Physician Vise Hand: Gordon Cheung (Pa) Procedure(s): Right decompressive hemicraniectomy for R MCA stroke and Malignant cerebral edema Anesthesia: General Findings: Swollen brain - R hemisphere Estimated Blood Loss: 300 mls Specimens: Bone to freezer Complications: None Pre-Op/Pre-Procedure Diagnosis: Above Post-Op/Post-Procedure Diagnosis: * No post-op diagnosis entered * [id number] SIGNATURE: Florence Sharif MD PATIENT NAME: Jose Gustafson DATE: October 12, 2017 TIME: 12:33 PM PAGER/CONTACT #: [id number] GASA + ALL Collected: 10/12/2017 Status: F Source: [place] FOR 12:10 PM [facility] USE ONLY REPOSITORY TYPE CODE TESTS RESULT OUT OF REFERENCE UNITS RANGE LAB PH 7.35-7.45 pH 7.44 LAB PCO2 34-46 mm Hg pCO2 41 LAB PO2 85-95 mm Hg pO2 High 150 LAB BE mmol/L Base Excess 4 LAB HCO3 22-26 mmol/L Bicarbonate High 28 LAB CO2CT 22.0-28.0 mmol/L CO2 Content High 29 LAB O2HB 95-98 % Oxyhemoglobin, Art. 97 LAB COHB 0-5.0 % Carboxyhemoglobin,A 0.6 rt LAB MHGB 0.4-1.5 % Methemoglobin 0.9 LAB TEMP C Temperature, Body 37.0 LAB PHTC 7.35-7.45 pH, Temp Corrected 7.44 LAB PCO2T 34-46 mm Hg pCO2, Temp Correct 41 LAB PO2T mm Hg pO2, Temp Corrected 150 LAB NAB 135-146 mmol/L Sodium,Whole Bld 136 LAB KWB 3.5-5.0 mmol/L Potassium, Whole Bld 3.6 LAB HGBB 13.0-17.0 g/dL Low Hemoglobin,Total,AC 9.8 L LAB HCTB 39.0-51.0 % Hematocrit, ACL Low 30 LAB IC 1.08-1.30 mmol/L Calcium, Ion, WB Low 1.02 LAB GLB 60-105 mg/dL Glucose,Whole Bld High 147 LAB LACT 0.5-2.2 mmol/L Lactate 1.6 Performed By: #### ALLBG #### [facility] [address] [place], [place] [address] GASA + ALL Collected: 10/12/2017 Status: F Source: [place] FOR 11:30 AM [facility] USE ONLY REPOSITORY TYPE CODE TESTS RESULT OUT OF REFERENCE UNITS RANGE LAB PH 7.35-7.45 pH 7.40 LAB PCO2 34-46 mm Hg pCO2 46 LAB PO2 85-95 mm Hg pO2 High 183 LAB BE mmol/L Base Excess 3 LAB HCO3 22-26 mmol/L Bicarbonate High 28 LAB CO2CT 22.0-28.0 mmol/L CO2 Content High 29 LAB O2HB 95-98 % Oxyhemoglobin, Art. 98 LAB COHB 0-5.0 % Carboxyhemoglobin,A 0.4 rt LAB MHGB 0.4-1.5 % Methemoglobin 0.9 LAB TEMP C Temperature, Body 37.0 LAB PHTC 7.35-7.45 pH, Temp Corrected 7.40 LAB PCO2T 34-46 mm Hg pCO2, Temp Correct 46 LAB PO2T mm Hg pO2, Temp Corrected 183 LAB NAB 135-146 mmol/L Sodium,Whole Bld 141 LAB KWB 3.5-5.0 mmol/L Potassium, Whole Bld 3.7 LAB HGBB 13.0-17.0 g/dL Low Hemoglobin,Total,AC 11.2 L LAB HCTB 39.0-51.0 % Hematocrit, ACL Low 35 LAB IC 1.08-1.30 mmol/L Calcium, Ion, WB 1.09 LAB GLB 60-105 mg/dL Glucose,Whole Bld High 107 LAB LACT 0.5-2.2 mmol/L Lactate 1.7 Performed By: #### ALLBG #### [facility] [address] [place], [place] [address] GASA + ALL Collected: 10/12/2017 Status: F Source: [place] FOR 8:52 AM [facility]IANCE USE ONLY REPOSITORY TYPE CODE TESTS RESULT OUT OF REFERENCE UNITS RANGE LAB PH 7.35-7.45 pH 7.39 LAB PCO2 34-46 mm Hg pCO2 High 47 LAB PO2 85-95 mm Hg pO2 High 130 LAB BE mmol/L Base Excess 2 LAB HCO3 22-26 mmol/L Bicarbonate High 27 LAB CO2CT 22.0-28.0 mmol/L CO2 Content High 29 LAB O2HB 95-98 % Oxyhemoglobin, Art. 97 LAB COHB 0-5.0 % Carboxyhemoglobin,A 0.7 rt LAB MHGB 0.4-1.5 % Methemoglobin 0.9 LAB TEMP C Temperature, Body 37.0 LAB PHTC 7.35-7.45 pH, Temp Corrected 7.39 LAB PCO2T 34-46 mm Hg pCO2, Temp High Correct 47 LAB PO2T mm Hg pO2, Temp Corrected 130 LAB NAB 135-146 mmol/L Sodium,Whole Bld 141 LAB KWB 3.5-5.0 mmol/L Potassium, Whole Bld 3.8 LAB HGBB 13.0-17.0 g/dL Low Hemoglobin,Total,AC 11.4 L LAB HCTB 39.0-51.0 % Hematocrit, ACL Low 35 LAB IC 1.08-1.30 mmol/L Calcium, Ion, WB 1.12 LAB GLB 60-105 mg/dL Glucose,Whole Bld High 121 LAB LACT 0.5-2.2 mmol/L Lactate 1.6 Performed By: #### ALLBG #### [facility] [address], [place] [address] GASV + ALL Collected: 10/12/2017 Status: F Source: [place] 8:47 AM [facility] REPOSITORY TYPE CODE TESTS RESULT OUT OF REFERENCE UNITS RANGE LAB VPH 7.32-7.42 pH 7.36 LAB VPC2 42-55 mm Hg pCO2 54 LAB VPO2 35-45 mm Hg pO2 41 LAB VBE mmol/L Base Excess 4 LAB VHC3 24-28 mmol/L Bicarbonate High 29 LAB VC2C 25-29 mmol/L CO2 Content High 31 LAB O2HBCX 60-85 % Oxyhemoglobin, Willi. 67 LAB CO <2.0 % Carboxyhemoglobin,V 0.9 en LAB METHB 0.4-1.5 % Methemoglobin 0.8 LAB VTMP C Temperature, Body 37.0 LAB VPHTC 7.32-7.42 pH, Temp Corrected 7.36 LAB VPC2T mm Hg pCO2, Temp Correct 54 LAB VPO2T mm Hg pO2, Temp Corrected 41 LAB NAB 135-146 mmol/L Sodium,Whole Bld 141 LAB KWB 3.5-5.0 mmol/L Potassium, Whole Bld 3.7 LAB HGBB 13.0-17.0 g/dL Low Hemoglobin,Total,AC 11.3 L LAB HCTB 39.0-51.0 % Hematocrit, ACL Low 35 LAB IC 1.08-1.30 mmol/L Calcium, Ion, WB 1.11 LAB GLB 60-105 mg/dL Glucose,Whole Bld High 119 LAB LACT 0.5-2.2 mmol/L Lactate 1.5 Performed By: #### VALLBG #### [facility] [address] [place], [place] [address] CBC Collected: 10/12/2017 Status: F Source: [place] 8:30 AM [facility] REPOSITORY TYPE CODE TESTS RESULT OUT OF REFERENCE UNITS RANGE LAB WBC 3.70-11.00 k/uL WBC High 12.16 LAB RBC 4.20-6.00 m/uL Low RBC 3.79 LAB HGB 13.0-17.0 g/dL Low Hemoglobin 11.3 LAB HCT 39.0-51.0 % Low Hematocrit 34.9 LAB MCV 80.0-100.0 fL MCV 92.1 LAB MCH 26.0-34.0 pG MCH 29.8 LAB MCHC 30.5-36.0 g/dL MCHC 32.4 LAB RDWCV 11.5-15.0 % RDW-CV High 15.4 LAB PLTCT 150-400 k/uL Low Platelet Count 106 LAB MPV 9.0-12.7 fL MPV 10.0 LAB ABSNUC <0.01 k/uL Absolute nRBC <0.01 Performed By: #### CBC, PTT, FIBCT, PT, TEGHPP #### [facility] [address] [place], [place] [address] APTT Collected: 10/12/2017 Status: F Source: [place] 8:30 AM [facility] REPOSITORY TYPE CODE TESTS RESULT OUT OF RANGE REFERENCE UNITS LAB APTT 23.0-32.4 sec High APTT 36.1 Result Comment: Unfractionated Heparin Therapeutic Ranges: Standard Heparin Nomogram: 53 to 78 seconds (anti-Xa level of 0.3 to 0.7 U/ml) Low Dose/ACS Nomogram: 49 to 67 seconds (anti-Xa level of 0.2 to 0.5 U/ml) Stroke Treatment Nomogram: 49 to 67 seconds (anti-Xa level of 0.2 to 0.5 U/ml) Note: The APTT therapeutic range has been determined for the current lot of laboratory APTT reagent in use throughout the [facility]. Performed By: #### CBC, PTT, FIBCT, PT, TEGHPP #### [facility] [address] [place], [place] [address] FIBRINOGEN Collected: 10/12/2017 Status: F Source: [place] 8:30 AM [facility] REPOSITORY TYPE CODE TESTS RESULT OUT OF REFERENCE UNITS RANGE LAB FIBCT 200-400 mg/dL High Fibrinogen >860 Result Comment: Result checked and verified Sample checked for a clot. Performed By: #### CBC, PTT, FIBCT, PT, TEGHPP #### [facility] [address] [place], [place] [address] PROTIME Collected: 10/12/2017 Status: F Source: [place] 8:30 AM [facility] REPOSITORY TYPE CODE TESTS RESULT OUT OF RANGE REFERENCE UNITS LAB PSEC 9.7-13.0 sec PT Sec 12.0 LAB INR 0.9-1.3 PT INR 1.2 Result Comment: Vitamin K Antagonist (VKA) Therapeutic Range: INR 2 to 3 (Target INR of 2.5) Note: For patients treated with VKA drugs, such as warfarin, the [employer] [employer] 2012 Guideline recommends a therapeutic INR range of 2 to 3 (target INR of 2.5). This recommendation includes high-risk patients with antiphospholipid syndrome with previous arterial or venous thromboembolism, current-generation mechanical or bioprosthetic aortic heart valve replacement. Note: Patients with mechanical aortic valve replacement and additional risk factors for thromboembolic events (atrial fibrillation, previous thromboembolism, LV dysfunction, hypercoagulable conditions) or an older generation mechanical AVR (i.e., ball in-Cage) or any mechanical MVR should have a INR therapeutic range of 2.5 to 3.5 (target INR of 3). Phi GH, et al. Chest 2012, 141:7S-47S Regis RA et al. [facility] 2017, 70: 252-289 Performed By: #### CBC, PTT, FIBCT, PT, TEGHPP #### [facility] [address] [place], [place] [address] THROMBOGRAPH HEPASE Collected: 10/12/2017 Status: F Source: [place] 8:30 AM [facility] REPOSITORY TYPE CODE TESTS RESULT OUT OF REFERENCE UNITS RANGE LAB RTEGH 4.0-10.0 min R Value (Hep) 5.2 LAB MATEGH 51.0-69.0 mm Maximum Amplit (Hep) 63.5 LAB DEGANH 47.0-74.0 deg Degree Angle (Hep) 70.6 LAB LY30H 0.0-5.0 % Lysis Time 30 (Hep) 0.0 LAB CITEGH Coagulation Ind(Hep) 1 Result Comment: (NOTE) Reference Range: NEG 4 to 2 The Coagulation Index, a secondary parameter, is labeled by the power builder developer as for research use only and is used per the power builder developer's instructions. Its performance characteristics were determined by [facility] in a manner consistent with CLIA requirements. This test has not been cleared by the U.S. Food and Drug Administration. LAB TEGINH Thrombograph Int(Hep) (NOTE) Result Comment: Performing Pathologist: Ariella Rodriguez M.D., Ph.D. Normal - see comment below. A thromboelastograph (TEG) study was performed using citrate-anticoagulated whole blood treated with heparinase to neutralize a heparin effect. The R value, a measure of coagulation function, is within the normal range. This indicates normal coagulation function. The Angle, a measure of fibrinogen function, is within the normal range. This is indicative of normal fibrinogen concentration or function. The Maximal Amplitude (MA), a measure of platelet function, is within the normal range. The Ly30, a measure of fibrinolysis function, is normal. This is indicative of normal fibrinolytic function. The Coagulation Index (CI), a measure of hemostasis function, is within the normal range. The CI is a calculated parameter based on the other TEG results. Performed By: #### CBC, PTT, FIBCT, PT, TEGHPP #### [facility] [address] [place], [place] [address] TYPE AND SCREEN Collected: 10/12/2017 Status: F Source: [place] 8:30 AM [facility] REPOSITORY TYPE CODE TESTS RESULT OUT OF REFERENCE UNITS RANGE LAB %ABR A ABO/RH(D) POSITIVE LAB % Antibody NEG Screen Performed By: #### TSCR #### [facility] [address] [place], [place] [address] GASV + ALL Collected: 10/12/2017 Status: F Source: [place] 7:00 AM [facility] REPOSITORY TYPE CODE TESTS RESULT OUT OF REFERENCE UNITS RANGE LAB VPH 7.32-7.42 pH 7.36 LAB VPC2 42-55 mm Hg pCO2 55 LAB VPO2 35-45 mm Hg pO2 40 LAB VBE mmol/L Base Excess 5 LAB VHC3 24-28 mmol/L Bicarbonate High 31 LAB VC2C 25-29 mmol/L CO2 Content High 32 LAB O2HBCX 60-85 % Oxyhemoglobin, Willi. 66 LAB CO <2.0 % Carboxyhemoglobin,V 1.0 en LAB METHB 0.4-1.5 % Methemoglobin Low 0.1 LAB VTMP C Temperature, Body 37.0 LAB VPHTC 7.32-7.42 pH, Temp Corrected 7.36 LAB VPC2T mm Hg pCO2, Temp Correct 55 LAB VPO2T mm Hg pO2, Temp Corrected 40 LAB NAB 135-146 mmol/L Sodium,Whole Bld 142 LAB KWB 3.5-5.0 mmol/L Potassium, Whole Bld 4.3 LAB HGBB 13.0-17.0 g/dL Low Hemoglobin,Total,AC 11.5 L LAB HCTB 39.0-51.0 % Hematocrit, ACL Low 35 LAB IC 1.08-1.30 mmol/L Calcium, Ion, WB 1.10 LAB GLB 60-105 mg/dL Glucose,Whole Bld High 134 LAB LACT 0.5-2.2 mmol/L Lactate 1.4 Performed By: #### VALLBG #### [facility] [address] [place] [address] GASA + ALL Collected: 10/12/2017 Status: F Source: [place] FOR 6:57 AM [facility] USE ONLY REPOSITORY TYPE CODE TESTS RESULT OUT OF REFERENCE UNITS RANGE LAB PH 7.35-7.45 pH 7.40 LAB PCO2 34-46 mm Hg pCO2 High 48 LAB PO2 85-95 mm Hg pO2 High 100 LAB BE mmol/L Base Excess 4 LAB HCO3 22-26 mmol/L Bicarbonate High 29 LAB CO2CT 22.0-28.0 mmol/L CO2 Content High 30 LAB O2HB 95-98 % Oxyhemoglobin, Art. 97 LAB COHB 0-5.0 % Carboxyhemoglobin,A 0.7 rt LAB MHGB 0.4-1.5 % Methemoglobin Low 0.1 LAB TEMP C Temperature, Body 37.0 LAB PHTC 7.35-7.45 pH, Temp Corrected 7.40 LAB PCO2T 34-46 mm Hg pCO2, Temp High Correct 48 LAB PO2T mm Hg pO2, Temp Corrected 100 LAB NAB 135-146 mmol/L Sodium,Whole Bld 143 LAB KWB 3.5-5.0 mmol/L Potassium, Whole Bld 4.3 LAB HGBB 13.0-17.0 g/dL Low Hemoglobin,Total,AC 11.5 L LAB HCTB 39.0-51.0 % Hematocrit, ACL Low 35 LAB IC 1.08-1.30 mmol/L Calcium, Ion, WB 1.10 LAB GLB 60-105 mg/dL Glucose,Whole Bld High 130 LAB LACT 0.5-2.2 mmol/L Lactate 1.4 Performed By: #### ALLBG #### [facility] [address] [place] [address] PROGRESS Observed: 10/12/2017 Status: COMPLETED Source: [place] 5:33 AM [facility] REPOSITORY HNO ID: [id number] Author: Jessica Carter Service: Neurology Author Type: Physician Type: Progress Notes Filed: 10/12/2017 2:15 PM Note Text: CONSULT PROGRESS NOTE NEURO STROKE SERVICE DATE: 10/12/2017 SERVICE TIME: 529 Subjective INTERVAL HISTORY: Exam remains poor. Now on propofol and fentanyl. Still on multiple pressors - Repeat CTH at 0141 10/12/17 w/ worsening mass effect w/ increase in uncal and subfalcine herniation compared to previous scan - Na136->137->138->141->140 (0458 10/12/17) - Received 23.4% bullet at 0524 10/12 - TCD showing asymmetry in mean flow velocities within the bilateral MCAs with right being significantly lower than left. ?Abnormal waveform is noted left vertebral artery and proximal basilar artery bunny sign suggesting early subclavian steal. ?Normal antegrade flow is noted right vertebral artery. ?The remainder of the exam is within normal limits. - Carotid US RIGHT SIDE Internal carotid artery: 0-19% stenosis. Vertebral artery: Patent and antegrade flow noted. LEFT SIDE Internal carotid artery: 0-19% stenosis. Vertebral artery: Patent and antegrade flow noted. Abnormal signal suggests pre-steal. MEDICATIONS Current hospital medications: sodium chloride 3 % infusion INTRAVENOUS CONTINUOUS vancomycin 1.25 g in D5W 250 mL (VANCOCIN) 1.25 g INTRAVENOUS q 24 HR furosemide 500 mg in empty bottle 50 mL IV infusion (LASIX) 10 mg/hr INTRAVENOUS CONTINUOUS epoprostenol INHALATION 30,000 ng/mL in 0.9% NaCl 50 mL (VELETRI) 0.01-0.05 mcg/kg/min (Cashion) INHALATION CONTINUOUS PHENYLephrine 80 mg in D5W 250 mL (NEOSYNEPHRINE) 25-200 mcg/min INTRAVENOUS CONTINUOUS Chlorhexidine Gluconate 0.12 % 15 mL (PERIDEX) 15 mL ORAL q [address] 20 mg tab(s) (PROTONIX) 20 mg ORAL DAILY (6 AM) pantoprazole 20 mg CUP (PROTONIX) 20 mg ORAL/FEEDING TUBE DAILY (6 AM) senna-docusate 8.6-50 mg 1 tablet (SENNA-S) 1 tablet ORAL BID bisacodyl 10 mg suppository (DULCOLAX) 10 mg RECTAL DAILY PRN ondansetron (PF) 4 mg injection (ZOFRAN) 4 mg INTRAVENOUS q 6 H PRN potassium chloride iv piggyback 10 mEq/100mL 10 mEq INTRAVENOUS PRN potassium chloride iv piggyback 20 mEq/50 mL 20 mEq INTRAVENOUS PRN potassium chloride 40-120 mEq oral powder (KLOR-CON) 40-120 mEq ORAL/FEEDING TUBE PRN 0.9% NaCl 3-5 mL 3-5 mL INTRAVENOUS q 12 H 0.9% NaCl 10 mL 10 mL INTRAVENOUS q 12 H insulin regular human iv bolus 2-10 Units 2-10 Units INTRAVENOUS PRN insulin regular 250 units in NaCl 0.9% 250 mL iv infusion - HVI CVICU NOMOGRAM 0.5-40 Units/hr INTRAVENOUS CONTINUOUS dextrose 50% in water 25 mL syringe 12.5 g INTRAVENOUS PRN dextrose 5% in NaCl 0.2% iv infusion 5 mL/hr INTRAVENOUS CONTINUOUS insulin glargine 0-40 Units pen (long acting) (LANTUS SOLOSTAR, BASAGLAR) 0-40 Units SUBCUTANEOUS As Directed nitroglycerin 50 mg in D5W 250 mL 5-200 mcg/min INTRAVENOUS CONTINUOUS nitroglycerin injection 100 mcg injection syringe 100 mcg INTRAVENOUS PRN PHENYLephrine 0.1 mg injection 100 mcg INTRAVENOUS PRN fentaNYL [employer]EN[employer]ENT 20 mcg/mL in NaCl 0.9% 100 mL INTRAVENOUS CONTINUOUS naloxone 0.04 mg injection (NARCAN) 0.04 mg INTRAVENOUS PRN lidocaine 5 % 1 Patch (LIDODERM) 1 Patch TRANSDERMAL DAILY lidocaine patch - REMOVE OTHER AT BEDTIME lidocaine - VERIFY PATCH OTHER q 8 H fentaNYL 50 mcg/mL 25-75 mcg injection (SUBLIMAZE) 25-75 mcg INTRAVENOUS q 1 H PRN acetaminophen 1,000 mg tab(s) (TYLENOL) 1,000 mg ORAL q 6 H acetaminophen 1,000 mg CUP (TYLENOL) 1,000 mg NASOGASTRIC q 6 H acetaminophen 650 mg tab(s) (TYLENOL) 650 mg ORAL/FEEDING TUBE q 4 H PRN oxyCODONE IR 5-10 mg tab(s) (ROXICODONE) 5-10 mg ORAL/FEEDING TUBE q 6 H PRN aspirin 162 mg chewable tab(s) 162 mg ORAL/FEEDING TUBE DAILY propofol infusion (DIPRIVAN) 10-50 mcg/kg/min (Order-Specific) INTRAVENOUS CONTINUOUS propofol iv bolus 10-50 mg (DIPRIVAN) 10-50 mg INTRAVENOUS q 1 H PRN vasopressin 20 units in D5W 100 mL (VASOSTRICT) 0.01-0.1 Units/min INTRAVENOUS CONTINUOUS NORepinephrine 4 mg in D5W 250 mL (LEVOPHED) 0.6-20 mcg/min INTRAVENOUS CONTINUOUS fentaNYL iv infusion 20 mcg/mL in NaCl 0.9% 100 mL 25-250 mcg/hr INTRAVENOUS CONTINUOUS ciprofloxacin 400 mg in D5W 200 mL (CIPRO) 400 mg INTRAVENOUS q 12 HR vancomycin dosing and monitoring per pharmacy OTHER As Directed EPINEPHrine iv infusion 4 mg in D5W 250 mL 0.5-4 mcg/min INTRAVENOUS CONTINUOUS albuterol 2.5 mg /3 mL (0.083 %) 2.5 mg (PROVENTIL) 2.5 mg INHALATION QID budesonide 1 mg/2 mL 1 mg nebulizer suspension (PULMICORT) 1 mg INHALATION BID amiodarone 360 mg in D5W 200 mL (NEXTERONE) 0.5-1 mg/min INTRAVENOUS CONTINUOUS Objective PHYSICAL EXAM Vital Signs: BP 152/83 Pulse 89 Temp 36.7 ?C (98.1 ?F) (Core) Resp 20 Ht 182.9 cm (6') Wt 100.3 kg (221 lb 1.9 oz) SpO2 93% BMI 29.99 kg/m2 GENERAL: Intubated and sedated HEENT: Normocephalic/atraumatic RESPIRATORY: Intubated CARDIOVASCULAR: NRRR, open chest w/ wound vac NEUROLOGICAL: LOC: 3 - reflex responses or unarousable 3 LOC Questions: 2 - none correct 2 LOC Commands: 2 - neither correct 2 LOC Normal Gaze: 0 - normal gaze 0 Visual Helms: 0 - no visual loss 0 Facial Palsy: 0 - normal 0 Motor Left Arm: 4 - no movement at all 4 Motor Right Arm: 3 - no antigravity effort but even minimal movements count 3 Motor Left Le - no movement at all 4 Motor Right Le - no movement at all 4 Limb Ataxia: 0 - no ataxia (or aphasic, hemiplegic) 0 Sensory: 2 - total loss, patient unaware of touch. coma, bilateral loss 2 Language: 3 - mute, global aphasia, coma 3 Dysarthria: X - intubation or mech barrier X Extinction/Neglect: 0 - normal, none detected (or visual loss alone) 0 Total Daily NIHSS: 27 (10/12/17 0544 : Niurka (Res) Handshoe) 27 MENTAL STATUS: Intubated, no response to stim CRANIAL NERVES: Primary gaze, face appear symmetric, corneals intact. Pupils ~ 2mm and reactive, No cough, no gag MOTOR: Localizes w/ RUE only, minimal movement in RLE 1/5. No movement in LUE or LLE SENSATION: Localizes to pain in RUE DATA: Diagnostic tests reviewed for today's visit: Lipids, HbA1c, CMP, CBC, Coags Recent Labs 10/12/17 0456 10/12/17 0452 10/12/17 0430 10/12/17 0216 10/12/17 0100 10/11/17 1940 10/11/17 0003 10/10/17 0200 10/09/17 0740 NA -- -- -- -- -- -- 137 -- -- -- 137 -- 139 -- -- K -- -- -- -- -- -- 4.4 -- -- -- 4.4 -- 4.2 -- -- CHLOR -- -- -- -- -- -- 96* -- -- -- 97 -- 100 -- -- CO2 -- 32* 33* -- 33* -- 28 < > -- < > 28 < > 26 < > -- BUN -- -- -- -- -- -- 30* -- -- -- 29* -- 27* -- -- CREAT -- -- -- -- -- -- 1.63* -- -- -- 1.95* -- 2.18* -- -- GLUC -- -- -- -- -- -- 109* -- -- -- 114* -- 131* -- -- IC 1.07* 1.08 1.06* < > 1.05* < > -- < > -- < > -- < > -- < > -- CA -- -- -- -- -- -- 7.9* -- -- -- 7.9* -- 7.6* -- -- WBC -- -- -- -- -- -- 12.49* -- -- -- 12.49* -- 13.13* -- 11.20* HB -- -- -- -- -- -- 11.2* -- -- -- 11.2* -- 10.9* -- 10.3* HCT -- -- -- -- -- -- 33.6* -- -- -- 34.3* -- 31.8* -- 29.7* PLT -- -- -- -- -- -- 103* -- -- -- 108* -- 96* -- 99* INR -- -- -- -- -- -- -- -- 1.2 -- -- -- -- -- 1.2 APTT -- -- -- -- -- -- -- -- 36.1* -- -- -- -- -- 39.2* < > = values in this interval not displayed. Cardiac Enzymes Most recent labs and imaging results. MEDICAL EVENTS: No medical events have been recorded. STROKE 9 CARE AND PREVENTION CHECKLIST 1. Is the patient currently on an ANTITHROMBOTIC medication (Antiplatelet or Anticoagulant): Aspirin 2. Does the patient have known AFIB/FLUTTER: No 3. Is the patient on a STATIN: None Reason for no statin: (not a primary patient) 4. Is the patient on VTE prophylaxis: Pharmacological prophylaxis;Mechanical prophylaxis Mechanical intervention type: Intermittent compression stocking(s) 5. GLYCEMIC Control Medications: Not Diabetic 6. Stroke BP Goals: <180/105 Stroke BP Control: BP well controlled 7. 8. TEMPERATURE Control: Normothermic 9. Does the patient need THERAPY: Yes Therapy involvement: PT;OT;ST Stroke Care and Prevention (personally reviewed by Niurka Freedman DO): Daily Rounding Date: 10/12/17 Daily Rounding Time: 4063 PROBLEM LIST: Principal Problem: Dissection of thoracic aorta (HCC) POA: Unknown Active Problems: Aortic dissection (HCC) POA: Yes Asthma POA: Yes Atelectasis POA: Unknown Hypoxia POA: Unknown Postoperative hypotension POA: Unknown Pain, postoperative, acute POA: Unknown Lactic acid acidosis POA: Unknown Coagulopathy (HCC) POA: Unknown Acute blood loss anemia POA: Unknown Acute kidney injury (HCC) POA: Unknown Cardiac insufficiency (HCC) POA: Unknown Stroke (cerebrum) (HCC) POA: Unknown Cerebral edema (HCC) POA: Unknown Resolved Problems: * No resolved hospital problems. 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 Pt maintained on multiple pressors. 2clot called for L sided weakness w/ LKW 1700 on 10/10/17. iNIHSS 25. CTH w/ hypodensity in RMCA distribution. Stroke Mechanism Stroke Mechanism - LIP ENTRY ONLY Ischemic Stroke or TIA: Ischemic Stroke TOAST Mechanism (CCF-MODIFIED): Stroke of Other Determined Etiology Stroke of Other Determined Etiology: Dissection Total Daily NIHSS: 27 PLAN # RMCA Ischemic Stroke - Etiology likely embolic 2/2 to dissection - rCTH 1600 10/11: Unchanged RMCA stroke w/ assoc mass effect - TCD w/ asymmetry in mean flow velocities within the bilateral MCAs with right being significantly lower than left. - Carotid Duplex: 0-19% stenosis b/l Plan - Cont ASA - Permissive hypertension as able per CTS service # Malignant Cerebral Edema Repeat CTH at 0141 10/12/17 w/ Worsening mass effect w/ increase in uncal and subfalcine herniation compared to previous scan - Na goal of 145-155 - Na q4h per NICU - Neuro checks q1h - Con 3% NS 75ml/hr per NICU recs - CTH q12h SIGNATURE: Niurka Freedman DO PATIENT NAME: Jose Gustafson DATE: October 12, 2017 TIME: 530 AM PAGER/CONTACT #: [phone] [facility] STAFF PHYSICIAN NOTE OF PERSONAL INVOLVEMENT IN CARE I have reviewed the consult note obtained and documented by the resident and I personally participated in the curry components. I have discussed the case and management of the patient's care. The following comments revise or confirm relevant curry components of the note. Repeat CTH showed progression of malignant MCA infarct with evidence of mass effect and herniation. Pt to be taken to OR for decompression. and daughter at bedside, updated. Case discussed with Dr. Sharif. Jessica Carter MD [facility] Staff, Vascular Neurology 10/12/2017 2:14 PM PROGRESS Observed: 10/12/2017 Status: COMPLETED Source: [place] 5:18 AM [facility] REPOSITORY HNO ID: [id number] Author: Luis Hopkins Service: Critical Care Author Type: Resident Type: Progress Notes Filed: 10/12/2017 5:21 AM Note Text: Neuro Critical Care Update Note Repeat CTH shows increased swelling and mass effect Neuro stable with bilateral equal and brisk pupils Na level of 136 Will administer 23.4% HTS and repeat if needed Will switch 2% to 3% @ 75 Luis Hopkins M.D. Neuro Critical Care Fellow Neurosurgery (PGY5) Pager # [phone] GASA + ALL Collected: 10/12/2017 Status: F Source: [facility] 4:56 AM [facility] RADIANCE USE ONLY REPOSITORY TYPE CODE TESTS RESULT OUT OF REFERENCE UNITS RANGE LAB PH 7.35-7.45 pH 7.41 LAB PCO2 34-46 mm Hg pCO2 High 48 LAB PO2 85-95 mm Hg pO2 Low 75 LAB BE mmol/L Base Excess 4 LAB HCO3 22-26 mmol/L Bicarbonate High 29 LAB CO2CT 22.0-28.0 mmol/L CO2 Content High 31 LAB O2HB 95-98 % Oxyhemoglobin, Low Art. 93 LAB COHB 0-5.0 % Carboxyhemoglobin,A 1.4 rt LAB MHGB 0.4-1.5 % Methemoglobin Low 0.0 LAB TEMP C Temperature, Body 37.0 LAB PHTC 7.35-7.45 pH, Temp Corrected 7.41 LAB PCO2T 34-46 mm Hg pCO2, Temp High Correct 48 LAB PO2T mm Hg pO2, Temp Corrected 75 LAB NAB 135-146 mmol/L Sodium,Whole Bld 140 LAB KWB 3.5-5.0 mmol/L Potassium, Whole Bld 4.1 LAB HGBB 13.0-17.0 g/dL Low Hemoglobin,Total,AC 11.3 L LAB HCTB 39.0-51.0 % Hematocrit, ACL Low 35 LAB IC 1.08-1.30 mmol/L Calcium, Ion, WB Low 1.07 LAB GLB 60-105 mg/dL Glucose,Whole Bld High 114 LAB LACT 0.5-2.2 mmol/L Lactate 1.5 Performed By: #### ALLBG #### [facility] [address] [place], [place] [address] GASV + ALL Collected: 10/12/2017 Status: F Source: [place] 4:52 AM [facility] REPOSITORY TYPE CODE TESTS RESULT OUT OF REFERENCE UNITS RANGE LAB VPH 7.32-7.42 pH 7.38 LAB VPC2 42-55 mm Hg pCO2 53 LAB VPO2 35-45 mm Hg pO2 38 LAB VBE mmol/L Base Excess 5 LAB VHC3 24-28 mmol/L Bicarbonate High 31 LAB VC2C 25-29 mmol/L CO2 Content High 32 LAB O2HBCX 60-85 % Oxyhemoglobin, Willi. 61 LAB CO <2.0 % Carboxyhemoglobin,V 1.2 en LAB METHB 0.4-1.5 % Methemoglobin Low 0.1 LAB VTMP C Temperature, Body 37.0 LAB VPHTC 7.32-7.42 pH, Temp Corrected 7.38 LAB VPC2T mm Hg pCO2, Temp Correct 53 LAB VPO2T mm Hg pO2, Temp Corrected 38 LAB NAB 135-146 mmol/L Sodium,Whole Bld 141 LAB KWB 3.5-5.0 mmol/L Potassium, Whole Bld 4.0 LAB HGBB 13.0-17.0 g/dL Low Hemoglobin,Total,AC 11.1 L LAB HCTB 39.0-51.0 % Hematocrit, ACL Low 34 LAB IC 1.08-1.30 mmol/L Calcium, Ion, WB 1.08 LAB GLB 60-105 mg/dL Glucose,Whole Bld High 114 LAB LACT 0.5-2.2 mmol/L Lactate 1.4 Performed By: #### VALLBG #### [facility] [address] [place], [place] [address] GASV + ALL Collected: 10/12/2017 Status: F Source: [place] 4:30 AM [facility] REPOSITORY TYPE CODE TESTS RESULT OUT OF REFERENCE UNITS RANGE LAB VPH 7.32-7.42 pH 7.38 LAB VPC2 42-55 mm Hg pCO2 55 LAB VPO2 35-45 mm Hg pO2 35 LAB VBE mmol/L Base Excess 5 LAB VHC3 24-28 mmol/L Bicarbonate High 31 LAB VC2C 25-29 mmol/L CO2 Content High 33 LAB O2HBCX 60-85 % Oxyhemoglobin, Low Willi. 59 LAB CO <2.0 % Carboxyhemoglobin,V 1.2 en LAB METHB 0.4-1.5 % Methemoglobin 0.7 LAB VTMP C Temperature, Body 37.0 LAB VPHTC 7.32-7.42 pH, Temp Corrected 7.38 LAB VPC2T mm Hg pCO2, Temp Correct 55 LAB VPO2T mm Hg pO2, Temp Corrected 35 LAB NAB 135-146 mmol/L Sodium,Whole Bld 138 LAB KWB 3.5-5.0 mmol/L Potassium, Whole Bld 4.1 LAB HGBB 13.0-17.0 g/dL Low Hemoglobin,Total,AC 11.2 L LAB HCTB 39.0-51.0 % Hematocrit, ACL Low 34 LAB IC 1.08-1.30 mmol/L Calcium, Ion, WB Low 1.06 LAB GLB 60-105 mg/dL Glucose,Whole Bld High 107 LAB LACT 0.5-2.2 mmol/L Lactate 1.4 Performed By: #### VALLBG #### [facility] [address] [place], [place] [address] GASA + ALL Collected: 10/12/2017 Status: F Source: [place] FOR 4:25 AM [facility] RADIANCE USE ONLY REPOSITORY TYPE CODE TESTS RESULT OUT OF REFERENCE UNITS RANGE LAB PH 7.35-7.45 pH 7.41 LAB PCO2 34-46 mm Hg pCO2 High 48 LAB PO2 85-95 mm Hg pO2 Low 70 LAB BE mmol/L Base Excess 5 LAB HCO3 22-26 mmol/L Bicarbonate High 30 LAB CO2CT 22.0-28.0 mmol/L CO2 Content High 31 LAB O2HB 95-98 % Oxyhemoglobin, Low Art. 91 LAB COHB 0-5.0 % Carboxyhemoglobin,A 1.4 rt LAB MHGB 0.4-1.5 % Methemoglobin 0.8 LAB TEMP C Temperature, Body 37.0 LAB PHTC 7.35-7.45 pH, Temp Corrected 7.41 LAB PCO2T 34-46 mm Hg pCO2, Temp High Correct 48 LAB PO2T mm Hg pO2, Temp Corrected 70 LAB NAB 135-146 mmol/L Sodium,Whole Bld 137 LAB KWB 3.5-5.0 mmol/L Potassium, Whole Bld 4.1 LAB HGBB 13.0-17.0 g/dL Low Hemoglobin,Total,AC 11.5 L LAB HCTB 39.0-51.0 % Hematocrit, ACL Low 35 LAB IC 1.08-1.30 mmol/L Calcium, Ion, WB Low 1.05 LAB GLB 60-105 mg/dL Glucose,Whole Bld High 109 LAB LACT 0.5-2.2 mmol/L Lactate 1.4 Performed By: #### ALLBG #### [facility] [address] [address] PROGRESS Observed: 10/12/2017 Status: COMPLETED Source: [place] 2:35 AM [facility] REPOSITORY HNO ID: [id number] Author: Evan Dunn V Service: Critical Care Author Type: Anesthesiologist Type: Progress Notes Filed: 10/12/2017 2:46 AM Note Text: CTA Progress Note Repeat CT brain reviewed with radiologist who called to report findings. Patient examined at bedside with Dr. Hopkins--intact corneals, pupils equal size bilaterally at 2 mm and both pupils reactive. Dr. Hopkins pushed 23.4% saline, and patient's hypertonic sodium switched to 3% saline. Every 4 hour serum sodium checks ordered, and patient also receiving frequent sodium checks with abg's. MAP currently 91--aim for map lowest 80-85 for cerebral perfusion pressure. Will order every hour neuro checks. Plan reviewed with patient's nurse. Evan Dunn MD GASV + ALL Collected: 10/12/2017 Status: F Source: [place] 2:16 AM [facility] REPOSITORY TYPE CODE TESTS RESULT OUT OF REFERENCE UNITS RANGE LAB VPH 7.32-7.42 pH 7.40 LAB VPC2 42-55 mm Hg pCO2 51 LAB VPO2 35-45 mm Hg pO2 36 LAB VBE mmol/L Base Excess 6 LAB VHC3 24-28 mmol/L Bicarbonate High 31 LAB VC2C 25-29 mmol/L CO2 Content High 33 LAB O2HBCX 60-85 % Oxyhemoglobin, Willi. 62 LAB CO <2.0 % Carboxyhemoglobin,V 1.3 en LAB METHB 0.4-1.5 % Methemoglobin 0.7 LAB VTMP C Temperature, Body 37.0 LAB VPHTC 7.32-7.42 pH, Temp Corrected 7.40 LAB VPC2T mm Hg pCO2, Temp Correct 51 LAB VPO2T mm Hg pO2, Temp Corrected 36 LAB NAB 135-146 mmol/L Sodium,Whole Bld 136 LAB KWB 3.5-5.0 mmol/L Potassium, Whole Bld 3.9 LAB HGBB 13.0-17.0 g/dL Low Hemoglobin,Total,AC 11.5 L LAB HCTB 39.0-51.0 % Hematocrit, ACL Low 35 LAB IC 1.08-1.30 mmol/L Calcium, Ion, WB Low 1.05 LAB GLB 60-105 mg/dL Glucose,Whole Bld High 109 LAB LACT 0.5-2.2 mmol/L Lactate 1.5 Performed By: #### VALLBG #### [facility] [address] [place], [place] [address] GASA + ALL Collected: 10/12/2017 Status: F Source: [place] FOR 2:13 AM [facility] RADIANCE USE ONLY REPOSITORY TYPE CODE TESTS RESULT OUT OF REFERENCE UNITS RANGE LAB PH 7.35-7.45 pH 7.43 LAB PCO2 34-46 mm Hg pCO2 45 LAB PO2 85-95 mm Hg pO2 Low 84 LAB BE mmol/L Base Excess 5 LAB HCO3 22-26 mmol/L Bicarbonate High 29 LAB CO2CT 22.0-28.0 mmol/L CO2 Content High 31 LAB O2HB 95-98 % Oxyhemoglobin, Low Art. 94 LAB COHB 0-5.0 % Carboxyhemoglobin,A 1.6 rt LAB MHGB 0.4-1.5 % Methemoglobin Low 0.3 LAB TEMP C Temperature, Body 37.0 LAB PHTC 7.35-7.45 pH, Temp Corrected 7.43 LAB PCO2T 34-46 mm Hg pCO2, Temp Correct 45 LAB PO2T mm Hg pO2, Temp Corrected 84 LAB NAB 135-146 mmol/L Sodium,Whole Bld 136 LAB KWB 3.5-5.0 mmol/L Potassium, Whole Bld 3.9 LAB HGBB 13.0-17.0 g/dL Low Hemoglobin,Total,AC 11.5 L LAB HCTB 39.0-51.0 % Hematocrit, ACL Low 35 LAB IC 1.08-1.30 mmol/L Calcium, Ion, WB Low 1.04 LAB GLB 60-105 mg/dL Glucose,Whole Bld High 109 LAB LACT 0.5-2.2 mmol/L Lactate 1.6 Performed By: #### ALLBG #### [facility] [address] [place], [place] [address] PROGRESS Observed: 10/12/2017 Status: COMPLETED Source: [place] 1:53 AM [facility] REPOSITORY HNO ID: [id number] Author: Inna Negrete Service: Neurosurgery Author Type: Resident Type: Progress Notes Filed: 10/12/2017 6:46 AM Note Text: Neurosurgery Brief Update Note Interval HPI: Repeat CTH this evening demonstrates evolution of R MCA infarct with increased edema Exam: Intubated, fentanyl/propofol held Eyes closed PERRL 2mm b/l Midline gaze +corneals +cough RUE localizing LUE no movement RLE minimal movement to stim LLE no movement A/P: Neuro exam stable Na goal 145-155 (current Na 137), start 3%, continue Na q6h Remains very poor surgical candidate Anesthesia consult to assess whether patient is candidate for surgery from anesthetic standpoint No emergent surgical intervention, will continue to follow Inna Negrete MD PGY2 Neurosurgery [id number] 1:55 AM PROGRESS Observed: 10/12/2017 Status: COMPLETED Source: [place] 1:28 AM [facility] REPOSITORY HNO ID: [id number] Author: YUNI Fitzgerald (Ct) Service: Radiology Author Type: Clinical Corporate Tax Preparer Type: Progress Notes Filed: 10/12/2017 1:29 AM Note Text: Radiology Service Progress Note PATIENT NAME: Jose Gustafson DATE OF SERVICE: October 12, 2017 TIME: 1:28 AM PATIENT IDENTITY VERIFICATION COMPLETED USING TWO (2) METHODS: Patient confirmed name verbally and ID band matches.. PATIENT GENDER DATA: Male PATIENT RELEVANT IMPLANT DATA REVIEWED: Yes RADIOLOGY DEPARTMENT: CT; Exam(s) Completed: Brain PERIPHERAL IV DATA: Not applicable SIGNED BY: YUNI Fitzgerald October 12, 2017 1:[address] BRAIN WO IVCON Observed: 10/12/2017 Status: F Source: [place] 1:14 AM [facility] REPOSITORY * * *Final Report* * * DATE OF EXAM: Oct 12 2017 1:14AM [facility] [place] - CT BRAIN WO IVCON / PROCEDURE REASON: CVA (cerebral vascular accident) (HCC) * * * * Physician Interpretation * * * * EXAMINATION: CT BRAIN WO IVCON HISTORY: CVA (cerebral vascular accident) (HCC). TECHNIQUE: Portable head CT without contrast. MQ: [id number] CT Dose-Length Product (DLP): 784 mGy*cm CT Dose Reduction Employed: No dose reduction techniques were required COMPARISON: Head CT from 10/11/2017. RESULT: HEAD CT: Stable nonhemorrhagic entire right MCA distribution infarct with mass effect with effacement of sulci and gyri and compression on right lateral ventricle with 3 mm of [id number]-ci-rlnq subfalcine herniation (new) and should be closely monitored as there is early development of trapping of temporal horn and uncal herniation which is worse compared to prior exam. No hematoma formation. Remaining stable ocljy-tvnlf-fqjj tissues with support lines/tubes with secondary changes. IMPRESSION: 1. Stable right MCA nonhemorrhagic infarct. 2. Worsening of mass effect with increase in uncal and subfalcine herniation. 3. Stable support lines and tubes. CRITICAL TEST/RESULTS: Communicated with Dr. Melissa MD on 10/12/2017 at 1:30 AM. Silver Wrapper: AMY Transcribe Date/Time: Oct 12 2017 1:24A Dictated by : ADAMARIS SCHMID MD This examination was interpreted and the report reviewed and electronically signed by: ADAMARIS SCHMID MD on Oct 12 2017 1:29AM EST [id number] CBC Collected: 10/12/2017 Status: F Source: [place] 1:00 AM [facility] REPOSITORY TYPE CODE TESTS RESULT OUT OF REFERENCE UNITS RANGE LAB WBC 3.70-11.00 k/uL WBC High 12.49 LAB RBC 4.20-6.00 m/uL Low RBC 3.76 LAB HGB 13.0-17.0 g/dL Low Hemoglobin 11.2 LAB HCT 39.0-51.0 % Low Hematocrit 33.6 LAB MCV 80.0-100.0 fL MCV 89.4 LAB MCH 26.0-34.0 pG MCH 29.8 LAB MCHC 30.5-36.0 g/dL MCHC 33.3 LAB RDWCV 11.5-15.0 % RDW-CV High 15.3 LAB PLTCT 150-400 k/uL Low Platelet Count 103 Result Comment: Result checked and verified No clot detected. LAB MPV 9.0-12.7 fL MPV 10.2 LAB ABSNUC <0.01 k/uL Absolute nRBC <0.01 Performed By: #### CBC, CMP #### [facility] [address] [id number] COMP METABOLIC PANEL Collected: 10/12/2017 Status: F Source: [place] 1:00 [facility] REPOSITORY TYPE CODE TESTS RESULT OUT OF REFERENCE UNITS RANGE LAB TP 6.3-8.0 g/dL Low Protein, Total 5.5 LAB ALB 3.9-4.9 g/dL Low Albumin 2.7 LAB CA 8.5-10.2 mg/dL Low Calcium, Total 7.9 LAB TBIL 0.2-1.3 mg/dL Bilirubin, High Total 3.1 LAB ALKP 36-108 U/L Alkaline Phosphatase 74 LAB AST 14-40 U/L AST High 145 LAB GLU 74-99 mg/dL Glucose High 109 Result Comment: The [place] [employer] (ADA) provides guidance for cutoff values for fasting glucose and random glucose. The ADA defines fasting as no caloric intake for at least 8 hours. Fas ting plasma glucose results between 100 to 125 mg/dL indicate increased risk for diabetes (prediabetes). Fasting plasma glucose results greater than or equal to 126 mg/dL meet the criteria for diagnosis of diabetes. In the absence of unequivocal hyperglycemia, results should be confirmed by repeat testing. In a patient with classic symptoms of hyperglycemia or hyperglycemic crisis, random plasma glucose results greater than or equal to 200 mg/dL meet the criteria for diagnosis of diabetes. Reference: Standards of Medical Care in Diabetes 2016, [place] [employer]. Diabetes Care. 2016.39(Suppl 1). LAB BUN 9-24 mg/dL BUN High 30 LAB CRET 0.73-1.22 mg/dL Creatinine High 1.63 LAB NA 136-144 mmol/L Sodium 137 LAB K 3.7-5.1 mmol/L Potassium 4.4 LAB CL 97-105 mmol/L Low Chloride 96 LAB CO2 22-30 mmol/L CO2 28 LAB AGAP 9-18 mmol/L Anion Gap 13 LAB ALT 10-54 U/L ALT High 275 LAB GFRAA eGFR- Amer. 54 LAB GFRNAA . eGFR-All Other Races 44 Result Comment: eGFR (Estimated GFR) Units of measure: mL/min/1.73 meters squared eGFR is derived from the reexpressed MDRD Study equation using the following parameters: serum creatinine, age, gender and race. The creatinine assay has been calibrated to be traceable to IDMS. An eGFR <60 mL/min/1.73m2 for >3 months is consistent with chronic kidney disease. Refer to KDOQI guidelines for clinical interpretation. In patients with unstable renal function, e.g. those with acute kidney injury, the eGFR may not accurately reflect actual GFR. Performed By: #### CBC, CMP #### [facility] [address], [place] [address] XR CHEST 1V FRONTAL Observed: 10/12/2017 Status: F Source: [facility] 12:21 AM [facility] REPOSITORY * * *Final Report* * * DATE OF EXAM: Oct 12 2017 12:21AM [facility] [id number] - XR CHEST 1V FRONTAL PORT / PROCEDURE REASON: Postoperative state * * * * Physician Interpretation * * * * EXAMINATION: CHEST RADIOGRAPH (PORTABLE SINGLE VIEW AP) Exam Date/Time: 10/12/2017 12:21 AM Indication: Postoperative state MQ: XCP_4 Comparison: 1 day prior RESULT: See impression. IMPRESSION: Lines, tubes, and devices: NG/OG tube has been removed. Tip of a right IJ PA catheter overlies the distal RVOT. Endotracheal tube, mediastinal drains, and bilateral thoracostomy tubes are present. Endovascular stent in the proximal descending thoracic aorta noted. Lungs and pleura: Interval development/increase of symmetric interstitial opacities, suggestive of edema. Biapical opacities, left greater than right may be postinflammatory or due to pleural fluid. Hazy opacities at the lung bases are new/increased, suggestive of small pleural effusions with adjacent atelectasis. A component of pneumonia/aspiration at the lung bases is not excluded. No substantial pneumothorax. Cardiomediastinal silhouette: Stable cardiomediastinal silhouette. Other: Silver Wrapper: AMY Transcribe Date/Time: Oct 12 2017 6:50A Dictated by : LUIS ENRIQUE ALFONSO MD This examination was interpreted and the report reviewed and electronically signed by: LUIS ENRIQUE ALFONSO MD on Oct 12 2017 6:52AM EST [id number] + ALL Collected: 10/11/2017 Status: F Source: [place] 11:20 PM [facility] REPOSITORY TYPE CODE TESTS RESULT OUT OF REFERENCE UNITS RANGE LAB VPH 7.32-7.42 pH 7.36 LAB VPC2 42-55 mm Hg pCO2 High 58 LAB VPO2 35-45 mm Hg pO2 37 LAB VBE mmol/L Base Excess 6 LAB VHC3 24-28 mmol/L Bicarbonate High 32 LAB VC2C 25-29 mmol/L CO2 Content High 34 LAB O2HBCX 60-85 % Oxyhemoglobin, Willi. 61 LAB CO <2.0 % Carboxyhemoglobin,V 1.0 en LAB METHB 0.4-1.5 % Methemoglobin 0.9 LAB VTMP C Temperature, Body 37.0 LAB VPHTC 7.32-7.42 pH, Temp Corrected 7.36 LAB VPC2T mm Hg pCO2, Temp Correct 58 LAB VPO2T mm Hg pO2, Temp Corrected 37 LAB NAB 135-146 mmol/L Sodium,Whole Bld 136 LAB KWB 3.5-5.0 mmol/L Potassium, Whole Bld 4.2 LAB HGBB 13.0-17.0 g/dL Low Hemoglobin,Total,AC 11.6 L LAB HCTB 39.0-51.0 % Hematocrit, ACL Low 36 LAB IC 1.08-1.30 mmol/L Calcium, Ion, WB 1.08 LAB GLB 60-105 mg/dL Glucose,Whole Bld High 111 LAB LACT 0.5-2.2 mmol/L Lactate 1.5 Performed By: #### VALLBG #### [facility] [address] [place], [place] [address] GASA + ALL Collected: 10/11/2017 Status: F Source: [place] FOR 11:17 PM [facility] RADIANCE USE ONLY REPOSITORY TYPE CODE TESTS RESULT OUT OF REFERENCE UNITS RANGE LAB PH 7.35-7.45 pH 7.40 LAB PCO2 34-46 mm Hg pCO2 High 49 LAB PO2 85-95 mm Hg pO2 88 LAB BE mmol/L Base Excess 4 LAB HCO3 22-26 mmol/L Bicarbonate High 29 LAB CO2CT 22.0-28.0 mmol/L CO2 Content High 31 LAB O2HB 95-98 % Oxyhemoglobin, Low Art. 94 LAB COHB 0-5.0 % Carboxyhemoglobin,A 1.1 rt LAB MHGB 0.4-1.5 % Methemoglobin 0.9 LAB TEMP C Temperature, Body 37.0 LAB PHTC 7.35-7.45 pH, Temp Corrected 7.40 LAB PCO2T 34-46 mm Hg pCO2, Temp High Correct 49 LAB PO2T mm Hg pO2, Temp Corrected 88 LAB NAB 135-146 mmol/L Sodium,Whole Bld 136 LAB KWB 3.5-5.0 mmol/L Potassium, Whole Bld 4.1 LAB HGBB 13.0-17.0 g/dL Low Hemoglobin,Total,AC 11.4 L LAB HCTB 39.0-51.0 % Hematocrit, ACL Low 35 LAB IC 1.08-1.30 mmol/L Calcium, Ion, WB Low 1.06 LAB GLB 60-105 mg/dL Glucose,Whole Bld High 108 LAB LACT 0.5-2.2 mmol/L Lactate 1.5 Performed By: #### ALLBG #### [facility] [address] [place], [place] [address] GASA + ALL Collected: 10/11/2017 Status: F Source: [place] FOR 9:29 PM [facility] RADIANCE USE ONLY REPOSITORY TYPE CODE TESTS RESULT OUT OF REFERENCE UNITS RANGE LAB PH 7.35-7.45 pH 7.40 LAB PCO2 34-46 mm Hg pCO2 High 51 LAB PO2 85-95 mm Hg pO2 86 LAB BE mmol/L Base Excess 5 LAB HCO3 22-26 mmol/L Bicarbonate High 30 LAB CO2CT 22.0-28.0 mmol/L CO2 Content High 32 LAB O2HB 95-98 % Oxyhemoglobin, Low Art. 94 LAB COHB 0-5.0 % Carboxyhemoglobin,A 0.7 rt LAB MHGB 0.4-1.5 % Methemoglobin 1.0 LAB TEMP C Temperature, Body 37.0 LAB PHTC 7.35-7.45 pH, Temp Corrected 7.40 LAB PCO2T 34-46 mm Hg pCO2, Temp High Correct 51 LAB PO2T mm Hg pO2, Temp Corrected 86 LAB NAB 135-146 mmol/L Sodium,Whole Bld 137 LAB KWB 3.5-5.0 mmol/L Potassium, Whole Bld 3.9 LAB HGBB 13.0-17.0 g/dL Low Hemoglobin,Total,AC 11.6 L LAB HCTB 39.0-51.0 % Hematocrit, ACL Low 36 LAB IC 1.08-1.30 mmol/L Calcium, Ion, WB 1.08 LAB GLB 60-105 mg/dL Glucose,Whole Bld High 126 LAB LACT 0.5-2.2 mmol/L Lactate 1.3 Performed By: #### ALLBG #### [facility] [address] [place], [place] [address] GASV + ALL Collected: 10/11/2017 Status: F Source: [place] 9:28 PM [facility] REPOSITORY TYPE CODE TESTS RESULT OUT OF REFERENCE UNITS RANGE LAB VPH 7.32-7.42 pH 7.36 LAB VPC2 42-55 mm Hg pCO2 High 57 LAB VPO2 35-45 mm Hg pO2 40 LAB VBE mmol/L Base Excess 5 LAB VHC3 24-28 mmol/L Bicarbonate High 31 LAB VC2C 25-29 mmol/L CO2 Content High 33 LAB O2HBCX 60-85 % Oxyhemoglobin, Willi. 65 LAB CO <2.0 % Carboxyhemoglobin,V 1.1 en LAB METHB 0.4-1.5 % Methemoglobin Low 0.0 LAB VTMP C Temperature, Body 37.0 LAB VPHTC 7.32-7.42 pH, Temp Corrected 7.36 LAB VPC2T mm Hg pCO2, Temp Correct 57 LAB VPO2T mm Hg pO2, Temp Corrected 40 LAB NAB 135-146 mmol/L Sodium,Whole Bld 135 LAB KWB 3.5-5.0 mmol/L Potassium, Whole Bld 3.8 LAB HGBB 13.0-17.0 g/dL Low Hemoglobin,Total,AC 11.5 L LAB HCTB 39.0-51.0 % Hematocrit, ACL Low 36 LAB IC 1.08-1.30 mmol/L Calcium, Ion, WB Low 1.06 LAB GLB 60-105 mg/dL Glucose,Whole Bld High 133 LAB LACT 0.5-2.2 mmol/L Lactate 1.4 Performed By: #### VALLBG #### [facility] [address], [place] [address] PROTIME Collected: 10/11/2017 Status: F Source: [place] 7:40 PM [facility] [place] REPOSITORY TYPE CODE TESTS RESULT OUT OF RANGE REFERENCE UNITS LAB PSEC 9.7-13.0 sec PT Sec 12.1 LAB INR 0.9-1.3 PT INR 1.2 Result Comment: Vitamin K Antagonist (VKA) Therapeutic Range: INR 2 to 3 (Target INR of 2.5) Note: For patients treated with VKA drugs, such as warfarin, the [place] [employer] 2012 Guideline recommends a therapeutic INR range of 2 to 3 (target INR of 2.5). This recommendation includes high-risk patients with antiphospholipid syndrome with previous arterial or venous thromboembolism, current-generation mechanical or bioprosthetic aortic heart valve replacement. Note: Patients with mechanical aortic valve replacement and additional risk factors for thromboembolic events (atrial fibrillation, previous thromboembolism, LV dysfunction, hypercoagulable conditions) or an older generation mechanical AVR (i.e., ball in-Cage) or any mechanical MVR should have a INR therapeutic range of 2.5 to 3.5 (target INR of 3). Phi GH, et al. Chest 2012, [id number] Regis GARSIA et al. [facility] 2017, 70: [phone] Performed By: #### PT, PTT #### [facility] [address] [place], [place] [address] APTT Collected: 10/11/2017 Status: F Source: [place] 7:40 PM [facility] REPOSITORY TYPE CODE TESTS RESULT OUT OF RANGE REFERENCE UNITS LAB APTT 23.0-32.4 sec High APTT 36.1 Result Comment: Unfractionated Heparin Therapeutic Ranges: Standard Heparin Nomogram: 53 to 78 seconds (anti-Xa level of 0.3 to 0.7 U/ml) Low Dose/ACS Nomogram: 49 to 67 seconds (anti-Xa level of 0.2 to 0.5 U/ml) Stroke Treatment Nomogram: 49 to 67 seconds (anti-Xa level of 0.2 to 0.5 U/ml) Note: The APTT therapeutic range has been determined for the current lot of laboratory APTT reagent in use throughout the [facility]. Performed By: #### PT, PTT #### [facility] [address] [place], [place] [address] GASA + ALL Collected: 10/11/2017 Status: F Source: [facility] 6:53 PM [facility] RADIANCE USE ONLY REPOSITORY TYPE CODE TESTS RESULT OUT OF REFERENCE UNITS RANGE LAB PH 7.35-7.45 pH 7.41 LAB PCO2 34-46 mm Hg pCO2 High 49 LAB PO2 85-95 mm Hg pO2 High 110 LAB BE mmol/L Base Excess 5 LAB HCO3 22-26 mmol/L Bicarbonate High 30 LAB CO2CT 22.0-28.0 mmol/L CO2 Content High 32 LAB O2HB 95-98 % Oxyhemoglobin, Art. 97 LAB COHB 0-5.0 % Carboxyhemoglobin,A 1.5 rt LAB MHGB 0.4-1.5 % Methemoglobin Low 0.0 LAB TEMP C Temperature, Body 37.0 LAB PHTC 7.35-7.45 pH, Temp Corrected 7.41 LAB PCO2T 34-46 mm Hg pCO2, Temp High Correct 49 LAB PO2T mm Hg pO2, Temp Corrected 110 LAB NAB 135-146 mmol/L Sodium,Whole Bld 136 LAB KWB 3.5-5.0 mmol/L Potassium, Whole Bld 3.6 LAB HGBB 13.0-17.0 g/dL Low Hemoglobin,Total,AC 11.5 L LAB HCTB 39.0-51.0 % Hematocrit, ACL Low 35 LAB IC 1.08-1.30 mmol/L Calcium, Ion, WB 1.09 LAB GLB 60-105 mg/dL Glucose,Whole Bld High 116 LAB LACT 0.5-2.2 mmol/L Lactate 1.4 Performed By: #### ALLBG #### [facility] [address] [place], [place] [address] GASV + ALL Collected: 10/11/2017 Status: F Source: [place] 6:51 PM [facility] REPOSITORY TYPE CODE TESTS RESULT OUT OF REFERENCE UNITS RANGE LAB VPH 7.32-7.42 pH 7.38 LAB VPC2 42-55 mm Hg pCO2 53 LAB VPO2 35-45 mm Hg pO2 38 LAB VBE mmol/L Base Excess 5 LAB VHC3 24-28 mmol/L Bicarbonate High 31 LAB VC2C 25-29 mmol/L CO2 Content High 32 LAB O2HBCX 60-85 % Oxyhemoglobin, Willi. 65 LAB CO <2.0 % Carboxyhemoglobin,V 1.0 en LAB METHB 0.4-1.5 % Methemoglobin 0.8 LAB VTMP C Temperature, Body 37.0 LAB VPHTC 7.32-7.42 pH, Temp Corrected 7.38 LAB VPC2T mm Hg pCO2, Temp Correct 53 LAB VPO2T mm Hg pO2, Temp Corrected 38 LAB NAB 135-146 mmol/L Sodium,Whole Bld 136 LAB KWB 3.5-5.0 mmol/L Potassium, Whole Low Bld 3.4 LAB HGBB 13.0-17.0 g/dL Low Hemoglobin,Total,AC 11.4 L LAB HCTB 39.0-51.0 % Hematocrit, ACL Low 35 LAB IC 1.08-1.30 mmol/L Calcium, Ion, WB 1.09 LAB GLB 60-105 mg/dL Glucose,Whole Bld High 111 LAB LACT 0.5-2.2 mmol/L Lactate 1.4 Performed By: #### VALLBG #### [facility] [address] [place], [place] [address] CONSULT Observed: 10/11/2017 Status: COMPLETED Source: [place] 5:23 PM [facility] REPOSITORY HNO ID: [id number] Author: Leah Colin Service: Critical Care Author Type: Physician Type: Consults Filed: 10/11/2017 7:55 PM Note Text: NEUROLOGICAL INTENSIVE CARE CONSULT PATIENT NAME: Jose Gustaf[place] DATE: 10/11/2017 REASON FOR CONSULTATION: Evaluation for management of malignant cerebral edema. History of Present Illness: Per records, 52 M admitted for chest pain and was found to have Type A aortic dissection on 10/07. Briefly, he underwent Total Arch replacement on 10/07 and since then has had 2 more surgeries for chest exploration and hematoma evac (10/08) and chest washout (10/10). Course complicated by hypotension requiring continued pressors and bleeding s/p multiple blood products, pressors. Chest still open. He was reportedly still moving all extremities at 5pm on 10/10. 2CLOT called on 10/11 at ~ 1AM for Lt sided weakness. ?CTH with hypodensity in the Lt MCA territory. He was referred to neuro ICU for management of malignant cerebral edema and NSG for hemicraniectomy. On ASA 162. SCr 2.18 Na 137 ? Medications: Current Facility-Administered Medications: vancomycin 1.25 g in D5W 250 mL (VANCOCIN) 1.25 g INTRAVENOUS q 24 HR Pancho Strnad (Pharmacist) 1.25 g at 10/11/17 1340 sodium chloride 2 % HYPERTONIC INTRAVENOUS CONTINUOUS Ling (Communications Intern) ALEXSANDRA Velázquez furosemide 500 mg in empty bottle 50 mL IV infusion (LASIX) 10 mg/hr INTRAVENOUS CONTINUOUS Ling (Communications Intern) ALEXSANDRA Velázquez Last Rate: 1 mL/hr at 10/11/17 1130 10 mg/hr at 10/11/17 1130 epoprostenol INHALATION 30,000 ng/mL in 0.9% NaCl 50 mL (VELETRI) 0.01-0.05 mcg/kg/min (Cashion) INHALATION CONTINUOUS Ling (Communications Intern) ALEXSANDRA Velázquez Last Rate: 6.21 mL/hr at 10/11/17 1527 0.04 mcg/kg/min at 10/11/17 1527 PHENYLephrine 80 mg in D5W 250 mL (NEOSYNEPHRINE) 25-200 mcg/min INTRAVENOUS CONTINUOUS Nataliya (Communications Intern) Fern Last Rate: 13.13 mL/hr at 10/11/17 1130 70 mcg/min at 10/11/17 1130 Chlorhexidine Gluconate 0.12 % 15 mL (PERIDEX) 15 mL ORAL q 6 H Daizo Ladonna 15 mL at 10/11/[address] 20 mg tab(s) (PROTONIX) 20 mg ORAL DAILY (6 AM) Daizo Ladonna Or pantoprazole 20 mg CUP (PROTONIX) 20 mg ORAL/FEEDING TUBE DAILY (6 AM) Daizo Ladonna 20 mg at 10/11/17 0538 senna-docusate 8.6-50 mg 1 tablet (SENNA-S) 1 tablet ORAL BID Daizo Ladonna 1 tablet at 10/11/17 0925 bisacodyl 10 mg suppository (DULCOLAX) 10 mg RECTAL DAILY PRN Daizo Ladonna ondansetron (PF) 4 mg injection (ZOFRAN) 4 mg INTRAVENOUS q 6 H PRN Daizo Ladonna potassium chloride iv piggyback 10 mEq/100mL 10 mEq INTRAVENOUS PRN Daizo Ladonna Or potassium chloride iv piggyback 20 mEq/50 mL 20 mEq INTRAVENOUS PRN Daizo Ladonna 20 mEq at 10/11/17 1124 Or potassium chloride 40-120 mEq oral powder (KLOR-CON) 40-120 mEq ORAL/FEEDING TUBE PRN Daizo Ladonna 0.9% NaCl 3-5 mL 3-5 mL INTRAVENOUS q 12 H Daizo Ladonna 5 mL at 10/11/17 0927 0.9% NaCl 10 mL 10 mL INTRAVENOUS q 12 H Daizo Ladonna 10 mL at 10/11/17 0926 insulin regular human iv bolus 2-10 Units 2-10 Units INTRAVENOUS PRN Daizo Ladonna And insulin regular 250 units in NaCl 0.9% 250 mL iv infusion - HVI CVICU NOMOGRAM 0.5-40 Units/hr INTRAVENOUS CONTINUOUS Daizo Ladonna Last Rate: 0.8 mL/hr at 10/11/17 1130 0.8 Units/hr at 10/11/17 1130 dextrose 50% in water 25 mL syringe 12.5 g INTRAVENOUS PRN Daizo Ladonna dextrose 5% in NaCl 0.2% iv infusion 5 mL/hr INTRAVENOUS CONTINUOUS Daizo Ladonna Last Rate: 5 mL/hr at 10/11/17 1130 5 mL/hr at 10/11/17 1130 insulin glargine 0-40 Units pen (long acting) (LANTUS SOLOSTAR, BASAGLAR) 0-40 Units SUBCUTANEOUS As Directed Daizo Ladonna nitroglycerin 50 mg in D5W 250 mL 5-200 mcg/min INTRAVENOUS CONTINUOUS Daizo Ladonna nitroglycerin injection 100 mcg injection syringe 100 mcg INTRAVENOUS PRN Daizo Ladonna PHENYLephrine 0.1 mg injection 100 mcg INTRAVENOUS PRN Daizo Ladonna fentaNYL [employer]EN[employer]ENT 20 mcg/mL in NaCl 0.9% 100 mL INTRAVENOUS CONTINUOUS Daizo Ladonna And naloxone 0.04 mg injection (NARCAN) 0.04 mg INTRAVENOUS PRN Daizo Ladonna lidocaine 5 % 1 Patch (LIDODERM) 1 Patch TRANSDERMAL DAILY Daizo Ladonna 1 Patch at 10/11/17 0925 And lidocaine patch - REMOVE OTHER AT BEDTIME Daizo Ladonna And lidocaine - VERIFY PATCH OTHER q 8 H Daizo Ladonna fentaNYL 50 mcg/mL 25-75 mcg injection (SUBLIMAZE) 25-75 mcg INTRAVENOUS q 1 H PRN Daizo Ladonna acetaminophen 1,000 mg tab(s) (TYLENOL) 1,000 mg ORAL q 6 H Daizo Ladonna Or acetaminophen 1,000 mg CUP (TYLENOL) 1,000 mg NASOGASTRIC q 6 H Daizo Ladonna 1,000 mg at 10/11/17 0006 [START ON 10/12/2017] acetaminophen 650 mg tab(s) (TYLENOL) 650 mg ORAL/FEEDING TUBE q 4 H PRN Daizo Ladonna oxyCODONE IR 5-10 mg tab(s) (ROXICODONE) 5-10 mg ORAL/FEEDING TUBE q 6 H PRN Daizo Ladonna aspirin 162 mg chewable tab(s) 162 mg ORAL/FEEDING TUBE DAILY Daizo Ladonna 162 mg at 10/11/17 0925 propofol infusion (DIPRIVAN) 10-50 mcg/kg/min (Order-Specific) INTRAVENOUS CONTINUOUS Daizo Ladonna Last Rate: 15.23 mL/hr at 10/11/17 1130 30 mcg/kg/min at 10/11/17 1130 propofol iv bolus 10-50 mg (DIPRIVAN) 10-50 mg INTRAVENOUS q 1 H PRN Daizo Ladonna vasopressin 20 units in D5W 100 mL (VASOSTRICT) 0.01-0.1 Units/min INTRAVENOUS CONTINUOUS Nataliya (Communications Intern) Fern Last Rate: 3 mL/hr at 10/11/17 1130 0.01 Units/min at 10/11/17 1130 NORepinephrine 4 mg in D5W 250 mL (LEVOPHED) 0.6-20 mcg/min INTRAVENOUS CONTINUOUS Nataliya (Communications Intern) Fern Last Rate: 18.75 mL/hr at 10/11/17 1130 5 mcg/min at 10/11/17 1130 fentaNYL iv infusion 20 mcg/mL in NaCl 0.9% 100 mL 25-250 mcg/hr INTRAVENOUS CONTINUOUS Nataliya (Communications Intern) Fern Last Rate: 3.75 mL/hr at 10/11/17 1130 75 mcg/hr at 10/11/17 1130 ciprofloxacin 400 mg in D5W 200 mL (CIPRO) 400 mg INTRAVENOUS q 12 HR Elvira Royal (Communications Intern) Magali 400 mg at 10/11/17 0608 vancomycin dosing and monitoring per pharmacy OTHER As Directed Elvira RobertsCommunications Intern) Magali EPINEPHrine iv infusion 4 mg in D5W 250 mL 0.5-4 mcg/min INTRAVENOUS CONTINUOUS Jose David Mackay Last Rate: 7.5 mL/hr at 10/11/17 1130 2 mcg/min at 10/11/17 1130 albuterol 2.5 mg /3 mL (0.083 %) 2.5 mg (PROVENTIL) 2.5 mg INHALATION QID Elvira Royal (Communications Intern) Magali 2.5 mg at 10/11/17 1519 budesonide 1 mg/2 mL 1 mg nebulizer suspension (PULMICORT) 1 mg INHALATION BID Elvira Royal (Communications Intern) Magali 1 mg at 10/11/17 0909 amiodarone 360 mg in D5W 200 mL (NEXTERONE) 0.5-1 mg/min INTRAVENOUS CONTINUOUS Nataliya (Communications Intern) Fern Last Rate: 16.67 mL/hr at 10/11/17 1130 0.5 mg/min at 10/11/17 1130 Current Facility-Administered Medications: vancomycin 1.25 g in D5W 250 mL (VANCOCIN) 1.25 g INTRAVENOUS q 24 HR sodium chloride 2 % HYPERTONIC INTRAVENOUS CONTINUOUS furosemide 500 mg in empty bottle 50 mL IV infusion (LASIX) 10 mg/hr INTRAVENOUS CONTINUOUS epoprostenol INHALATION 30,000 ng/mL in 0.9% NaCl 50 mL (VELETRI) 0.01-0.05 mcg/kg/min (Cashion) INHALATION CONTINUOUS PHENYLephrine 80 mg in D5W 250 mL (NEOSYNEPHRINE) 25-200 mcg/min INTRAVENOUS CONTINUOUS Chlorhexidine Gluconate 0.12 % 15 mL (PERIDEX) 15 mL ORAL q [address] 20 mg tab(s) (PROTONIX) 20 mg ORAL DAILY (6 AM) Or pantoprazole 20 mg CUP (PROTONIX) 20 mg ORAL/FEEDING TUBE DAILY (6 AM) senna-docusate 8.6-50 mg 1 tablet (SENNA-S) 1 tablet ORAL BID bisacodyl 10 mg suppository (DULCOLAX) 10 mg RECTAL DAILY PRN ondansetron (PF) 4 mg injection (ZOFRAN) 4 mg INTRAVENOUS q 6 H PRN potassium chloride iv piggyback 10 mEq/100mL 10 mEq INTRAVENOUS PRN Or potassium chloride iv piggyback 20 mEq/50 mL 20 mEq INTRAVENOUS PRN Or potassium chloride 40-120 mEq oral powder (KLOR-CON) 40-120 mEq ORAL/FEEDING TUBE PRN 0.9% NaCl 3-5 mL 3-5 mL INTRAVENOUS q 12 H 0.9% NaCl 10 mL 10 mL INTRAVENOUS q 12 H insulin regular human iv bolus 2-10 Units 2-10 Units INTRAVENOUS PRN And insulin regular 250 units in NaCl 0.9% 250 mL iv infusion - HVI CVICU NOMOGRAM 0.5-40 Units/hr INTRAVENOUS CONTINUOUS dextrose 50% in water 25 mL syringe 12.5 g INTRAVENOUS PRN dextrose 5% in NaCl 0.2% iv infusion 5 mL/hr INTRAVENOUS CONTINUOUS insulin glargine 0-40 Units pen (long acting) (LANTUS SOLOSTAR, BASAGLAR) 0-40 Units SUBCUTANEOUS As Directed nitroglycerin 50 mg in D5W 250 mL 5-200 mcg/min INTRAVENOUS CONTINUOUS nitroglycerin injection 100 mcg injection syringe 100 mcg INTRAVENOUS PRN PHENYLephrine 0.1 mg injection 100 mcg INTRAVENOUS PRN fentaNYL [employer] 20 mcg/mL in NaCl 0.9% 100 mL INTRAVENOUS CONTINUOUS And naloxone 0.04 mg injection (NARCAN) 0.04 mg INTRAVENOUS PRN lidocaine 5 % 1 Patch (LIDODERM) 1 Patch TRANSDERMAL DAILY And lidocaine patch - REMOVE OTHER AT BEDTIME And lidocaine - VERIFY PATCH OTHER q 8 H fentaNYL 50 mcg/mL 25-75 mcg injection (SUBLIMAZE) 25-75 mcg INTRAVENOUS q 1 H PRN acetaminophen 1,000 mg tab(s) (TYLENOL) 1,000 mg ORAL q 6 H Or acetaminophen 1,000 mg CUP (TYLENOL) 1,000 mg NASOGASTRIC q 6 H oxyCODONE IR 5-10 mg tab(s) (ROXICODONE) 5-10 mg ORAL/FEEDING TUBE q 6 H PRN aspirin 162 mg chewable tab(s) 162 mg ORAL/FEEDING TUBE DAILY propofol infusion (DIPRIVAN) 10-50 mcg/kg/min (Order-Specific) INTRAVENOUS CONTINUOUS propofol iv bolus 10-50 mg (DIPRIVAN) 10-50 mg INTRAVENOUS q 1 H PRN vasopressin 20 units in D5W 100 mL (VASOSTRICT) 0.01-0.1 Units/min INTRAVENOUS CONTINUOUS NORepinephrine 4 mg in D5W 250 mL (LEVOPHED) 0.6-20 mcg/min INTRAVENOUS CONTINUOUS fentaNYL iv infusion 20 mcg/mL in NaCl 0.9% 100 mL 25-250 mcg/hr INTRAVENOUS CONTINUOUS ciprofloxacin 400 mg in D5W 200 mL (CIPRO) 400 mg INTRAVENOUS q 12 HR vancomycin dosing and monitoring per pharmacy OTHER As Directed EPINEPHrine iv infusion 4 mg in D5W 250 mL 0.5-4 mcg/min INTRAVENOUS CONTINUOUS albuterol 2.5 mg /3 mL (0.083 %) 2.5 mg (PROVENTIL) 2.5 mg INHALATION QID budesonide 1 mg/2 mL 1 mg nebulizer suspension (PULMICORT) 1 mg INHALATION BID amiodarone 360 mg in D5W 200 mL (NEXTERONE) 0.5-1 mg/min INTRAVENOUS CONTINUOUS Vitals: 10/11/17 1620 10/11/17 1640 10/11/17 1700 10/11/17 1720 BP: Pulse: 89 89 89 89 Resp: Temp: TempSrc: SpO2: 97% 97% 97% 99% Weight: Height: Neuro: Intubated, on propofol and fentanyl Mental status: Coma CN ~ Pupils - 3mm BRTL Corneals - intact Gag -absent Cough - absent Motor - Rt side localizes Lt side - no movement CV: open chest, NRRR CBS Assessment: # Lt MCA stroke Etiology: Embolic 2/2 aortic dissection # Malignant Cerebral Edema Recommendations: Allow permissive hypertension as deemed safe from a cardiothoracic perspective Start hypertonic saline Please start 3% Hypertonic saline at 50ml/hr to keep a Na goal of 145-155 Check Na every 4 hours and adjust rate by about 25ml/hr accordingly Close neuro check (yobani pupils) q1 hour Please page 2NICU for any change in exam (e.g., focal motor change, increasing lethargy, increased urine output, etc) Cont ASA qD Pls obtain CT head non-contrast in AM Rest of management per primary service Discussed with staff physician Dr. Dixie Ayala MD Pager: 2NICU 10/11/2017 CONSULT Observed: 10/11/2017 Status: COMPLETED Source: [place] 4:59 PM [facility] [place] REPOSITORY HNO ID: [id number] Author: Florence Sharif Service: Neurosurgery Author Type: Physician Type: Consults Filed: 10/12/2017 9:34 AM Note Text: NEUROSURGERY CONSULT HISTORY AND PHYSICAL EXAMINATION PLEASE DO NOT REMOVE FROM THE CHART OR MODIFY PRINTED COPY Patient Name: Jose [place] CONSULTED BY: Stroke Neurology CONSULTED FOR: Consideration of hemicraniectomy CHIEF COMPLAINT: L plegia HPI: 52 year old male with PMH significant for HTN, admitted on 10/07/17 with chest pain and found to have type A aortic dissection from mid arch to descending aorta, s/p total arch replacement 10/07/17 c/b hypotension, bleeding, unable to close chest at end of surgery. Subsequently s/p reoperation on 10/08/17 and 10/10/17 for chest exploration, washout, wound vac x 2. Patient is critically ill on multiple pressors. LKW 10/10/17 1700, 2CLOT was called after patient found not be moving LUE/LLE to command or stim. CTH shows left MCA stroke sparing the deep structures with possible thrombus at the MCA bifurcation. Patient receiving ASA 162 daily, is on vancomycin/ciprofloxacin, multiple drips including amiodarone, epinephrine, norepinephrine, phenylephrine, vasopressin, and epoprostenol inhalation. Anti-platelets/anti-coagulants: ASA 81 mg PAST MEDICAL HISTORY: PAST MEDICAL HISTORY Diagnosis Date - Acute kidney injury (HCC) 10/09/2017 - History of kidney stones - Hypertension - Stroke (cerebrum) (HCC) 10/11/2017 - Unspecified asthma(493.90) PAST SURGICAL HISTORY: PAST SURGICAL HISTORY Procedure Laterality Date - COLONOSCOP W/ OR W/O RUST SPEC 08/23/2014 Colonoscopy - LITHOTRIPSY EXTRACORP SHOCK WAVE(ESWL) 18 months ago - PAST SURGICAL HISTORY OF 2012 left ankle ORIF- hardware - PAST SURGICAL HISTORY OF 2012 ORIF left wrist - hardware - REMOVAL OF HEEL SPUR 2002, 2004 Bilateral - REPAIR ING HERNIA,5+Y/O,REDUCIBL Hernia repair, inguinal, as FAMILY HISTORY: FAMILY HISTORY Problem Relation Age of Onset - Stroke Father age 48 of CVA - Asthma Paternal Grandfather SOCIAL HISTORY: Social History Marital status: Spouse name: Years of education: Number of children: Social History Main Topics Smoking status: Light Tobacco Smoker Packs/day: 0.00 Years: 0.00 Types: Cigars Smokeless status: Never Used Alcohol use: Yes 6.0 oz/week 4 Cans of Beer (12oz) per week Drug use: No Sexual activity: Yes Partners with: Female MEDICATIONS: cetirizine-pseudoephedrine (ZYRTEC-D) 5-120 mg per tablet Take 1 tablet by mouth twice daily as needed. fluticasone (FLONASE) 50 mcg/actuation nasal spray Use 1 [place] in each nostril once daily. Lactobacillus acidophilus (FLORAJEN) 460 mg (20 billion cell) cap Take 1 capsule by mouth once daily. fluticasone-vilanterol (BREO ELLIPTA) 200-25 mcg/dose inhaler Inhale 1 Inhalation as instructed once daily. Inhale one puff once daily. DO NOT CLICK OPEN UNTIL READY FOR DOSE lisinopril (ZESTRIL, PRINIVIL) 5 mg tablet Take 1 tablet by mouth once daily. Current hospital medications: vancomycin 1.25 g in D5W 250 mL (VANCOCIN) 1.25 g INTRAVENOUS q 24 HR furosemide 500 mg in empty bottle 50 mL IV infusion (LASIX) 10 mg/hr INTRAVENOUS CONTINUOUS epoprostenol INHALATION 30,000 ng/mL in 0.9% NaCl 50 mL (VELETRI) 0.01-0.05 mcg/kg/min (Cashion) INHALATION CONTINUOUS PHENYLephrine 80 mg in D5W 250 mL (NEOSYNEPHRINE) 25-200 mcg/min INTRAVENOUS CONTINUOUS Chlorhexidine Gluconate 0.12 % 15 mL (PERIDEX) 15 mL ORAL q [address] 20 mg tab(s) (PROTONIX) 20 mg ORAL DAILY (6 AM) pantoprazole 20 mg CUP (PROTONIX) 20 mg ORAL/FEEDING TUBE DAILY (6 AM) senna-docusate 8.6-50 mg 1 tablet (SENNA-S) 1 tablet ORAL BID bisacodyl 10 mg suppository (DULCOLAX) 10 mg RECTAL DAILY PRN ondansetron (PF) 4 mg injection (ZOFRAN) 4 mg INTRAVENOUS q 6 H PRN potassium chloride iv piggyback 10 mEq/100mL 10 mEq INTRAVENOUS PRN potassium chloride iv piggyback 20 mEq/50 mL 20 mEq INTRAVENOUS PRN potassium chloride 40-120 mEq oral powder (KLOR-CON) 40-120 mEq ORAL/FEEDING TUBE PRN 0.9% NaCl 3-5 mL 3-5 mL INTRAVENOUS q 12 H 0.9% NaCl 10 mL 10 mL INTRAVENOUS q 12 H insulin regular human iv bolus 2-10 Units 2-10 Units INTRAVENOUS PRN insulin regular 250 units in NaCl 0.9% 250 mL iv infusion - HVI CVICU NOMOGRAM 0.5-40 Units/hr INTRAVENOUS CONTINUOUS dextrose 50% in water 25 mL syringe 12.5 g INTRAVENOUS PRN dextrose 5% in NaCl 0.2% iv infusion 5 mL/hr INTRAVENOUS CONTINUOUS insulin glargine 0-40 Units pen (long acting) (LANTUS SOLOSTAR, BASAGLAR) 0-40 Units SUBCUTANEOUS As Directed nitroglycerin 50 mg in D5W 250 mL 5-200 mcg/min INTRAVENOUS CONTINUOUS nitroglycerin injection 100 mcg injection syringe 100 mcg INTRAVENOUS PRN PHENYLephrine 0.1 mg injection 100 mcg INTRAVENOUS PRN fentaNYL [employer] 20 mcg/mL in NaCl 0.9% 100 mL INTRAVENOUS CONTINUOUS naloxone 0.04 mg injection (NARCAN) 0.04 mg INTRAVENOUS PRN lidocaine 5 % 1 Patch (LIDODERM) 1 Patch TRANSDERMAL DAILY lidocaine patch - REMOVE OTHER AT BEDTIME lidocaine - VERIFY PATCH OTHER q 8 H fentaNYL 50 mcg/mL 25-75 mcg injection (SUBLIMAZE) 25-75 mcg INTRAVENOUS q 1 H PRN acetaminophen 1,000 mg tab(s) (TYLENOL) 1,000 mg ORAL q 6 H acetaminophen 1,000 mg CUP (TYLENOL) 1,000 mg NASOGASTRIC q 6 H [START ON 10/12/2017] acetaminophen 650 mg tab(s) (TYLENOL) 650 mg ORAL/FEEDING TUBE q 4 H PRN oxyCODONE IR 5-10 mg tab(s) (ROXICODONE) 5-10 mg ORAL/FEEDING TUBE q 6 H PRN aspirin 162 mg chewable tab(s) 162 mg ORAL/FEEDING TUBE DAILY propofol infusion (DIPRIVAN) 10-50 mcg/kg/min (Order-Specific) INTRAVENOUS CONTINUOUS propofol iv bolus 10-50 mg (DIPRIVAN) 10-50 mg INTRAVENOUS q 1 H PRN vasopressin 20 units in D5W 100 mL (VASOSTRICT) 0.01-0.1 Units/min INTRAVENOUS CONTINUOUS NORepinephrine 4 mg in D5W 250 mL (LEVOPHED) 0.6-20 mcg/min INTRAVENOUS CONTINUOUS fentaNYL iv infusion 20 mcg/mL in NaCl 0.9% 100 mL 25-250 mcg/hr INTRAVENOUS CONTINUOUS ciprofloxacin 400 mg in D5W 200 mL (CIPRO) 400 mg INTRAVENOUS q 12 HR vancomycin dosing and monitoring per pharmacy OTHER As Directed EPINEPHrine iv infusion 4 mg in D5W 250 mL 0.5-4 mcg/min INTRAVENOUS CONTINUOUS albuterol 2.5 mg /3 mL (0.083 %) 2.5 mg (PROVENTIL) 2.5 mg INHALATION QID budesonide 1 mg/2 mL 1 mg nebulizer suspension (PULMICORT) 1 mg INHALATION BID amiodarone 360 mg in D5W 200 mL (NEXTERONE) 0.5-1 mg/min INTRAVENOUS CONTINUOUS ALLERGIES: ALLERGIES Allergen Reactions - Cats - Grass Pollen Itching COMPLETE REVIEW OF SYSTEMS: See HPI PHYSICAL EXAM: [id number] Intubated, on fentanyl/propofol, propofol held PERRL +corneals, +cough RUE localizes, RLE minimal withdrawal LUE, LLE no movement DATA: Radiology: CTH shows likely R M1 occlusion and inferior division R MCA stroke. Currently minimal MLS. Laboratory: CBC, Coags, BMP, Mg, Phos Recent Labs 10/11/17 1612 10/11/17 1607 10/11/17 1407 10/11/17 1404 10/11/17 1057 10/11/17 0003 10/10/17 0200 10/09/17 0740 10/09/17 0003 WBC -- -- -- -- -- -- -- 12.49* -- 13.13* -- 11.20* -- 10.38 HB -- -- -- -- -- -- -- 11.2* -- 10.9* -- 10.3* -- 9.8* HCT -- -- -- -- -- -- -- 34.3* -- 31.8* -- 29.7* -- 28.5* PLT -- -- -- -- -- -- -- 108* -- 96* -- 99* -- 147* INR -- -- -- -- -- -- -- -- -- -- -- 1.2 -- -- APTT -- -- -- -- -- -- -- -- -- -- -- 39.2* -- -- NA -- -- -- -- -- -- -- 137 -- 139 -- -- -- 143 K -- -- -- -- -- -- -- 4.4 -- 4.2 -- -- -- 4.7 CHLOR -- -- -- -- -- -- -- 97 -- 100 -- -- -- 100 CO2 32* -- -- 33* -- 29 < > 28 < > 26 < > -- < > 26 BUN -- -- -- -- -- -- -- 29* -- 27* -- -- -- 21 CREAT -- -- -- -- -- -- -- 1.95* -- 2.18* -- -- -- 2.16* GLUC -- -- -- -- -- -- -- 114* -- 131* -- -- -- 191* IC 1.09 1.07* 1.05* 1.06* < > 1.01* < > -- < > -- < > -- < > -- CA -- -- -- -- -- -- -- 7.9* -- 7.6* -- -- -- 8.8 < > = values in this interval not displayed. CSF AND Dilantin Liver Function, Amylase, AND Lipase Recent Labs 10/11/17 1612 10/11/17 1607 10/11/17 1407 10/11/17 0003 10/10/17 0200 10/09/17 0003 TPROT -- -- -- -- 5.2* -- 4.6* -- 4.9* ALB -- -- -- -- 2.9* -- 2.8* -- 2.9* ALT -- -- -- -- 345* -- 309* -- 123* AST -- -- -- -- 257* -- 358* -- 160* ALKPHOS -- -- -- -- 55 -- 31* -- 30* TBILI -- -- -- -- 1.9* -- 1.2 -- 1.5* LACT 1.6 1.7 1.9 < > -- < > -- < > -- < > = values in this interval not displayed. 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 Subsequently s/p reoperation on 10/08/17 and 10/10/17 for chest exploration, washout, wound vac x 2. Patient is critically ill on multiple pressors. LKW 10/10/17 1700, 2CLOT was called after patient found not be moving LUE/LLE to command or stim. CTH shows left MCA stroke sparing the deep structures with possible thrombus at the MCA bifurcation. Patient receiving ASA 162 daily, is on vancomycin/ciprofloxacin, multiple drips including amiodarone, epinephrine, norepinephrine, phenylephrine, vasopressin, and epoprostenol inhalation. - Currently no surgical indication - Agree with following serial CT scan to assess for progression of edema, mass effect - Agree with hypertonic therapy to increase Na, goal 145-155, check sodium Q6h - Patient is a poor surgical candidate given tenuous hemodynamic state. Optimize as possible. - Will continue to follow Rest per primary. Please page NSGY with any exam change. Above plan discussed with chief and (Staff) Dr. Sharif. SIGNATURE: Cirilo De La Cruz MD October 11, 2017 4:59 PM Pager [phone] Please page [phone] after 6 pm and on weekends. 10/12/17 0900 Patient reviewed w Stroke Staff last evening, d/w [facility]ICU Staff and [facility] staff. Imaging and notes reviewed. Patient w progressive cerebral edema from partial MCA infarction on Right. Most edema is in temporal region w mild effacement of brainstem. I believe he still has prospect of additional swelling and herniation. Hemcrani is warranted from neurologic standpoint, but he his at high risk of physiologic difficulties in surgery. Dr. Ayala from [facility] (who has done his original anesth), believes his LV has good function and that this can be done safely. and daughter personally updated at bedside to nature of procedure and high risk nature of this. They understand and wish we proceed. Florence Sharif MD XR ABDOMEN 1V SUPINE Observed: 10/11/2017 Status: F Source: [place] 4:28 PM [facility] REPOSITORY * * *Final Report* * * DATE OF EXAM: Oct 11 2017 4:28PM JIX [id number] - XR ABDOMEN 1V SUPINE / PROCEDURE REASON: Surgery follow-up * * * * Physician Interpretation * * * * ABDOMEN, 1 VIEW labeled 10/11/2017 1625 hours CLINICAL INFORMATION: Surgery follow-up. By report, status post recent chest washout with wound VAC placement including one sponge TECHNIQUE: Supine frontal view, 1 image(s) COMPARISON: 10/09/2017 KUB, 10/11/2017 chest radiograph RESULT: See impression. IMPRESSION: Dilated small bowel segment in upper abdomen measuring up to 4.7 cm. Paucity of other distal bowel gas. Given recent postoperative status this is probably from adynamic ileus, though mechanical obstruction could look similar. Continued radiographic follow-up may be of value. Enteric feeding catheter present, coiled redundantly in region of gastric body. Several mediastinal and basilar chest tubes course across abdomen. There is a radiopaque sponge marker in the low thorax/midline epigastrium, similar to prior. Small right pleural effusion. Silver Wrapper: AMY Transcribe Date/Time: Oct 11 2017 5:21P Dictated by : FLORENCE MEEK MD This examination was interpreted and the report reviewed and electronically signed by: FLORENCE MEEK MD on Oct 11 2017 5:23PM EST [id number] + ALL Collected: 10/11/2017 Status: F Source: [place] 4:12 PM [facility] REPOSITORY TYPE CODE TESTS RESULT OUT OF REFERENCE UNITS RANGE LAB VPH 7.32-7.42 pH 7.40 LAB VPC2 42-55 mm Hg pCO2 50 LAB VPO2 35-45 mm Hg pO2 42 LAB VBE mmol/L Base Excess 5 LAB VHC3 24-28 mmol/L Bicarbonate High 30 LAB VC2C 25-29 mmol/L CO2 Content High 32 LAB O2HBCX 60-85 % Oxyhemoglobin, Willi. 70 LAB CO <2.0 % Carboxyhemoglobin,V 1.1 en LAB METHB 0.4-1.5 % Methemoglobin 1.0 LAB VTMP C Temperature, Body 37.0 LAB VPHTC 7.32-7.42 pH, Temp Corrected 7.40 LAB VPC2T mm Hg pCO2, Temp Correct 50 LAB VPO2T mm Hg pO2, Temp Corrected 42 LAB NAB 135-146 mmol/L Sodium,Whole Bld 136 LAB KWB 3.5-5.0 mmol/L Potassium, Whole Bld 3.5 LAB HGBB 13.0-17.0 g/dL Low Hemoglobin,Total,AC 11.7 L LAB HCTB 39.0-51.0 % Hematocrit, ACL Low 36 LAB IC 1.08-1.30 mmol/L Calcium, Ion, WB 1.09 LAB GLB 60-105 mg/dL Glucose,Whole Bld High 115 LAB LACT 0.5-2.2 mmol/L Lactate 1.6 Performed By: #### VALLBG #### [facility] [address] [place], [place] [address] GASA + ALL Collected: 10/11/2017 Status: F Source: [place] FOR 4:07 PM [facility] RADIANCE USE ONLY REPOSITORY TYPE CODE TESTS RESULT OUT OF REFERENCE UNITS RANGE LAB PH 7.35-7.45 pH 7.44 LAB PCO2 34-46 mm Hg pCO2 43 LAB PO2 85-95 mm Hg pO2 High 137 LAB BE mmol/L Base Excess 4 LAB HCO3 22-26 mmol/L Bicarbonate High 29 LAB CO2CT 22.0-28.0 mmol/L CO2 Content High 30 LAB O2HB 95-98 % Oxyhemoglobin, Art. 97 LAB COHB 0-5.0 % Carboxyhemoglobin,A 1.1 rt LAB MHGB 0.4-1.5 % Methemoglobin 1.0 LAB TEMP C Temperature, Body 37.0 LAB PHTC 7.35-7.45 pH, Temp Corrected 7.44 LAB PCO2T 34-46 mm Hg pCO2, Temp Correct 43 LAB PO2T mm Hg pO2, Temp Corrected 137 LAB NAB 135-146 mmol/L Sodium,Whole Bld 135 LAB KWB 3.5-5.0 mmol/L Potassium, Whole Bld 3.5 LAB HGBB 13.0-17.0 g/dL Low Hemoglobin,Total,AC 11.7 L LAB HCTB 39.0-51.0 % Hematocrit, ACL Low 36 LAB IC 1.08-1.30 mmol/L Calcium, Ion, WB Low 1.07 LAB GLB 60-105 mg/dL Glucose,Whole Bld High 116 LAB LACT 0.5-2.2 mmol/L Lactate 1.7 Performed By: #### ALLBG #### [facility] [address] [place], [place] [address] GASA + ALL Collected: 10/11/2017 Status: F Source: [place] FOR 2:07 PM [facility] [place] RADIANCE USE ONLY REPOSITORY TYPE CODE TESTS RESULT OUT OF REFERENCE UNITS RANGE LAB PH 7.35-7.45 pH 7.44 LAB PCO2 34-46 mm Hg pCO2 45 LAB PO2 85-95 mm Hg pO2 High 110 LAB BE mmol/L Base Excess 5 LAB HCO3 22-26 mmol/L Bicarbonate High 30 LAB CO2CT 22.0-28.0 mmol/L CO2 Content High 31 LAB O2HB 95-98 % Oxyhemoglobin, Art. 97 LAB COHB 0-5.0 % Carboxyhemoglobin,A 0.6 rt LAB MHGB 0.4-1.5 % Methemoglobin 0.5 LAB TEMP C Temperature, Body 37.0 LAB PHTC 7.35-7.45 pH, Temp Corrected 7.44 LAB PCO2T 34-46 mm Hg pCO2, Temp Correct 45 LAB PO2T mm Hg pO2, Temp Corrected 110 LAB NAB 135-146 mmol/L Sodium,Whole Bld Low 133 LAB KWB 3.5-5.0 mmol/L Potassium, Whole Bld 4.2 LAB HGBB 13.0-17.0 g/dL Low Hemoglobin,Total,AC 11.6 L LAB HCTB 39.0-51.0 % Hematocrit, ACL Low 36 LAB IC 1.08-1.30 mmol/L Calcium, Ion, WB Low 1.05 LAB GLB 60-105 mg/dL Glucose,Whole Bld High 124 LAB LACT 0.5-2.2 mmol/L Lactate 1.9 Performed By: #### ALLBG #### [facility] [address] [place], [place] [address] GASV + ALL Collected: 10/11/2017 Status: F Source: [place] 2:04 [facility] REPOSITORY TYPE CODE TESTS RESULT OUT OF REFERENCE UNITS RANGE LAB VPH 7.32-7.42 pH 7.40 LAB VPC2 42-55 mm Hg pCO2 51 LAB VPO2 35-45 mm Hg pO2 41 LAB VBE mmol/L Base Excess 6 LAB VHC3 24-28 mmol/L Bicarbonate High 31 LAB VC2C 25-29 mmol/L CO2 Content High 33 LAB O2HBCX 60-85 % Oxyhemoglobin, Willi. 72 LAB CO <2.0 % Carboxyhemoglobin, 0.7 Willi LAB METHB 0.4-1.5 % Methemoglobin 0.6 LAB VTMP C Temperature, Body 37.0 LAB VPHTC 7.32-7.42 pH, Temp Corrected 7.40 LAB VPC2T mm Hg pCO2, Temp Correct 51 LAB VPO2T mm Hg pO2, Temp Corrected 41 LAB NAB 135-146 mmol/L Sodium,Whole Low Bld 134 LAB KWB 3.5-5.0 mmol/L Potassium, Whole Bld 4.0 LAB HGBB 13.0-17.0 g/dL Low Hemoglobin,Total,A 11.5 CL LAB HCTB 39.0-51.0 % Hematocrit, Low ACL 35 LAB IC 1.08-1.30 mmol/L Calcium, Ion, Low WB 1.06 LAB GLB 60-105 mg/dL Glucose,Whole High Bld 124 LAB LACT 0.5-2.2 mmol/L Lactate 1.7 LAB VCBDTE Notify Date, Willi [id number] LAB VCBTME Notify Time, Willi [id number] Performed By: #### VALLBG #### [facility] [address] [place], [place] [address] CT BRAIN WO IVCON Observed: 10/11/2017 Status: F Source: [place] 1:38 PM [facility] REPOSITORY * * *Final Report* * * DATE OF EXAM: Oct 11 2017 1:38PM [facility] [place] CT BRAIN WO IVCON / PROCEDURE REASON: Stroke (cerebrum) (HCC) * * * * Physician Interpretation * * * * EXAMINATION: CT BRAIN WO IVCON HISTORY: 52-year-old male patient with type A aortic dissection status post complex repair and multiple operations now with right MCA stroke. TECHNIQUE: Serial axial images without IV contrast were obtained from the vertex to the foramen magnum. MQ: [id number] CT Dose-Length Product (DLP): 743 mGy*cm CT Dose Reduction Employed: No dose reduction techniques were required COMPARISON: Earlier today 1:32 AM. RESULT: Post-operative change: None. Acute change: Redemonstration of large region of low attenuation involving the right temporal and frontal lobes in the M2 and M3 distribution, unchanged from previous. Hemorrhage: No evidence of acute intracranial hemorrhage. No hemorrhagic transformation. Mass Lesion / Mass Effect: There is no evidence of an intracranial mass or extraaxial fluid collection. Mild mass effect with mild midline shift is not significantly changed. Chronic change: None apparent. Parenchyma: There is no significant volume loss. The brain parenchyma is otherwise within normal limits for age. Ventricles: Effacement of the right lateral ventricle as above. Paranasal sinuses and skull base: Redemonstration of mucosal thickening in both maxillary sinuses, the ethmoid air cells, frontal sinus, and the sphenoid sinuses. Endotracheal tube is in place. The skull base and imaged soft tissues are unremarkable. IMPRESSION: Overall unchanged large right middle cerebral artery infarct with associated mass effect on the right lateral ventricle. No hemorrhagic transformation. Silver Wrapper: PSCB Transcribe Date/Time: Oct 11 2017 2:29P Dictated by : ANTHONY BURGER MD This examination was interpreted and the report reviewed and electronically signed by: ANDRADE PARKS MD on Oct 11 2017 4:03PM EST [id number] ALLIED HEALTH Observed: 10/11/2017 Status: COMPLETED Source: [place] 1:24 PM [facility] REPOSITORY HNO ID: [id number] Author: Rohit () Chaplain Alfredo Service: Spiritual Care Author Type: [facility] Nurse Type: Allied Health Filed: 10/11/2017 1:26 PM Note Text: SPIRITUALCARE Spiritual Care Visit- Brief Note Name: Jose Gustafson Date: October 11, 2017 Notes: Introductory spiritual care visit. Patient had a stroke and is not moving his left side. Spoke to patient's and daughter at bedside informing them of bottomer operator availability. Patient's stated, It's ok. We will get through this. Informed patient's family of weekend bottomer operator availability. [facility] Nurse Signature: Chaplain Florentino M.Div., [facility] To contact the Spiritual Care Department: Please call [phone] or Page the On-Call [facility] Nurse at pager [phone] Thank you for the opportunity to be of service. This is an electronically created document. IF PRINTED, PLEASE DO NOT REMOVE FROM THE CHART OR MODIFY PRINTED COPY. CONSULT PROG Observed: 10/11/2017 Status: COMPLETED Source: [place] 11:26 AM [facility] REPOSITORY O ID: [id number] Author: Pancho Cornelius (Pharmacist) Service: Pharmacy Author Type: Pharmacist Type: Consult Progress Note Filed: 10/11/2017 11:29 AM Note Text: PHARMACY VANCOMYCIN DOSING NOTE Patient Name: Jose Gustafson Admission Date: 10/07/2017 Date of Consult: 10/11/2017 Time of Consult: 11:26 AM Indication: Source Unknown; empiric Goal Range: 10-20 mcg/mL RECOMMENDATIONS/PLAN: Pharmacy consulted for vancomycin dosing for Jose Gustafson, a 52 year old, male who is being treated with vancomycin for empiric coverage/open chest 1. Patient is currently ordered Vancomycin dosed by level. Today is day 4 of therapy. 2. The most recent vancomycin level was 10.9 mcg/mL drawn at 08:28 on 10/11. This is a 36 hour level on the 4 day of therapy. 3. Will schedule vancomycin to 1.25 g with a dosing interval of q24h based on previous weight of 85 kg 4. The next vancomycin level will be ordered for 10/16 unless clinically indicated sooner. (Pharmacy will order) We will follow patient renal function, vancomycin levels and doses with you during the course of therapy. Additional recommendations will appear in follow up notes. If you have any questions, please contact STEPHEN MAR at pager [phone]. Age: [age] year old Allergies: ALLERGIES Allergen Reactions - Cats - Grass Pollen Itching Last 3 Encounter Wt Readings: Date: Wt: 10/07/2017 98.4 kg (216 lb 14.9 oz) 09/07/2017 84.6 kg (186 lb 6.4 oz) 08/24/2017 83.5 kg (184 lb) Last 1 Encounter Ht Readings: Date: Ht: 10/07/2017 182.9 cm (6') CrCl: 50-60 mL/min Temp (24hrs), Av.4 ?C (99.4 ?F), Min:36.7 ?C (98.1 ?F), Max:37.9 ?C (100.2 ?F) - Current Temp: 36.7 ?C (98.1 ?F) Labs BUN (mg/dL) Date Value 10/11/2017 29 (H) 10/10/2017 27 (H) 10/09/2017 21 Creatinine (mg/dL) Date Value 10/11/2017 1.95 (H) 10/10/2017 2.18 (H) 10/09/2017 2.16 (H) WBC (k/uL) Date Value 10/11/2017 12.49 (H) 10/10/2017 13.13 (H) 10/09/2017 11.20 (H) Vancomycin Levels: Vancomycin, result (ug/mL) Date Value 10/11/2017 10.9 10/09/2017 13.6 STEPHEN MAR PROGRESS Observed: 10/11/2017 Status: COMPLETED Source: [place] 11:07 AM [facility] REPOSITORY HNO ID: [id number] Author: Jose David Mackay Service: Critical Care Author Type: Physician Type: Progress Notes Filed: 10/11/2017 11:12 AM Note Text: [facility] Note Name: Jose Gustafson COORDINATION OF CARE NOTE: Indication for Surgery: Spontaneous Rupture of Aorta LVEF: Normal RVF: Normal Important/Relevant PMH/PSH: HTN, asthma, hx kidney stones Preoperative Hospital Course (narrative): 52 yo M with PMH HTN, Asthma, and hx of kidney stones who is transferred to [facility] for 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 Procedure/Surgeries: 10/08/2017 Total arch replacement with FET under DHCA 10/08/2017 Chest exploration / Evacuation of hematoma / Open chest with wound vac 10/10/2017 Chest opened with wound VAC placement (Attempt closure, but fail due to desaturation.) Airway Difficulty: Grade I - No special instrumentation OR Course: Transient or mild hypotension and Coagulopathy/bleeding Pacing wires: Yes: Ventricular: When discontinuing pacing wires: Cut all pacing wires Postoperative Course/General Impression: (narrative or log of major events with date of onset): Arrived to CVICU intubated, and sedated, on iVeletri, open chest, maintain overnight, plan to go back to OR later today for possible closure. Coagulopathy/bleeding intraop, transfused multiple blood products in OR, transfuse postop as needed. Hypotensive intraop, arrived on 4mcg Levo and 0.02 Vaso. The patient continued to bleed overnight and went back to the OR the following morning and large amount of clots were removed but no active bleeding. Issues to communicate at signout: 10/11/2017 OPEN CHEST - s/p chest exploration Improved hemodynamics Titrate NE/Vaso for MAP > 65 Diuresis New RT sided MCA CVA October 11, 2017 Patient with new cva overnight, mca on right with some mass effect--contact neurology this am for follow up, and follow up on carotids and tcd results with neurology OTHER PROBLEMS I MANAGED DURING THIS ENCOUNTER: Problem Dissection of Thoracic Aorta (Hcc) Patient with chest pain at OSH CT chest showing type a dissection 10/08/2017 s/p Total arch replacement with FET under DHCA A/P: Arrived to CVICU with open chest due to bleeding intraop. S/p chest washout this am. 10/10 Chest open, possible washout / closure today 3/16 Chest washout but not closed - did nottolerate Cont current management - diuresis to improve fluid balance Hypoxia 10/08/2017 PEEP therapy, wean FiO2. 10/09 On vent with 50% FIO2 - cont with open chest 10/10 40%, +10 PEEP - cont vent with open chest 10/11 Desat in OR yesterday - now on 50%, 14 PEEP - wean as tolerated Postoperative Hypotension A/P: Arrived to CVICU on 4mcg Levo and 0.02 Vaso, wean as able to goal MAP 65-75. 10/09 Increased support with epi, levo, vaso, phenyl -wean as able for MAP > 65 10/10 Increased support with epi, levo, vaso, phenyl -wean as able for MAP > 65 Continue current plan but keep MAP at 80 for neuro protection Pain, Postoperative, Acute A/P: Fentanyl infusion while intubated with open chest for pain control. - adequate Lactic Acid Acidosis Volume resuscitation. 10/09 Lactate mildly elevated, following - has been adeq vol resuscitated - wean pressors as tolerated 10/10 Remains borderline, KUB non-specific, abd soft and nontender, nondistended. Wean drips as able 10/11 Improved overnight, continue to wean drips Stroke (Cerebrum) (Hcc) Pt with Rt MCA stroke - Identified with L sided weakness overnight. Neuro following - Repeat Head CT today - Keep MAP 80-90 for neuro protection Awaiting further Neuro follow-up Cardiac Insufficiency (Hcc) 10/10 Cont with marginal CO / CI on epi, levo vaso AND juana. SVO2 in mid 50's Cont to support and wean drips as tolerated 10/11 Improved CI and hemodynamics after chest washout - cont to wean drips as able Keep CI > 2.2 and MAP ~ 80 for CVA Acute Kidney Injury (Hcc) Cr elevated from baseline of .89 to 2.16 now 2.18 Will diurese as tolerated due to significant fluid overload Follow Cr and lytes 10/11 Improved to 1.95 and tolerating diuresis - continue PHYSICAL EXAM AND PERTINENT DATA: Neuro: Sedation and positive findings: left sided weakness with R MCA CVA Pain Control : Is pain control adequate: Yes Cardiovascular: Rhythm: paced HR: 90 SpO2: 98 Temperature: afebrile MAP: 95 mmHg CVP: 13 mmHg PAP: 29/15 mmHg Cardiac Index: 5.6 L/min/m2 Recent Labs 10/09/17 0003 TROPT 1.770* Pulmonary: Clear to auscultation and Breath sounds equal Ventilator: Intubated: PCV; FiO2: 50; PEEP: 14 cmH2O; Not ready for weaning; HOB elevated 40 degrees: Yes; Oral care with chlorhexidine: Yes; Was sedation turned off? Yes Recent Labs 10/11/17 1100 10/11/17 0851 10/11/17 0620 PH 7.45 7.39 7.43 PO2 129* 145* 123* PCO2 42 46 43 HCO3 29* 27* 28* O2HB 98 97 97 CXR Findings: Increased Vascular Markings Bilateral, CXR personally viewed and interpreted by ICU staff Physician and small rt pnx Gastrointestinal: Abdominal: Soft Recent Labs 10/11/17 0003 10/10/17 0200 10/09/172 TPROT 5.2* 4.6* 4.9* ALB 2.9* 2.8* 2.9* CA 7.9* 7.6* 8.8 ALKPHOS 55 31* 30* TBILI 1.9* 1.2 1.5* AST 257* 358* 160* ALT 345* 309* 123* Heme: Recent Labs 10/11/17 0003 10/10/17 0200 10/09/17 0740 10/08/17 1710 10/08/17 1135 HB 11.2* 10.9* 10.3* < > 9.8* 9.2* HCT 34.3* 31.8* 29.7* < > 27.6* 25.9* PLT 108* 96* 99* < > 188 158 PTSEC -- -- 12.5 -- 12.1 12.2 INR -- -- 1.2 -- 1.2 1.2 APTT -- -- 39.2* -- 31.3 32.3 < > = values in this interval not displayed. Recent Labs 10/11/17 0003 10/10/17 0200 10/09/17 0740 WBC 12.49* 13.13* 11.20* Renal: Improving Recent Labs 10/11/17 1057 10/11/17 0858 10/11/17 0624 10/11/17 0003 10/10/17 0200 10/09/17 0003 NA -- -- -- -- 137 -- 139 -- 143 K -- -- -- -- 4.4 -- 4.2 -- 4.7 CHLOR -- -- -- -- 97 -- 100 -- 100 CO2 29 26 30* < > 28 < > 26 < > 26 CREAT -- -- -- -- 1.95* -- 2.18* -- 2.16* BUN -- -- -- -- 29* -- 27* -- 21 GLUC -- -- -- -- 114* -- 131* -- 191* CA -- -- -- -- 7.9* -- 7.6* -- 8.8 < > = values in this interval not displayed. DAILY CVICU CHECKLIST VTE Prophylaxis: Pharmacologic No - because bleeding risk VTE Prophylaxis: Mechanical: Yes Line infection prevention: Can CVC, PAC or arterial line be removed: No Continued need for urinary catheter: Yes - clinical indication: Patient post major surgery requiring fluid balance and input and output measurement. This patient has a high probability of sudden, clinically significant deterioration, which requires the highest level of preparedness to intervene urgently. I participated in the decision making and personally managed or directed the management of the following life and organ supporting interventions that required my frequent assessment to treat or prevent imminent deterioration of: Cardiac Insufficiency and Hypotension that I treated with inotropes and vasopressors Hypoxemia / Increased O2 requirements, Respiratory Failure and open chest that I treated with mechanical ventilation, management of FiO2 and PEEP Renal Insufficiency that I treated with diuretics Stroke that I treated with evaluation in progress I discussed the plan of care with the care team and the patient/family I personally spent 45 minutes of critical care time treating the patient. Time devoted to any procedures I billed separately is not included. SIGNATURE: JOSE DAVID MACKAY MD DATE of SERVICE: 10/11/2017 TIME of SERVICE: 11:07 AM GASA + ALL Collected: 10/11/2017 Status: F Source: [place] FOR 11:00 AM [facility] USE ONLY REPOSITORY TYPE CODE TESTS RESULT OUT OF REFERENCE UNITS RANGE LAB PH 7.35-7.45 pH 7.45 LAB PCO2 34-46 mm Hg pCO2 42 LAB PO2 85-95 mm Hg pO2 High 129 LAB BE mmol/L Base Excess 5 LAB HCO3 22-26 mmol/L Bicarbonate High 29 LAB CO2CT 22.0-28.0 mmol/L CO2 Content High 30 LAB O2HB 95-98 % Oxyhemoglobin, Art. 98 LAB COHB 0-5.0 % Carboxyhemoglobin,A 0.8 rt LAB MHGB 0.4-1.5 % Methemoglobin 0.5 LAB TEMP C Temperature, Body 37.0 LAB PHTC 7.35-7.45 pH, Temp Corrected 7.45 LAB PCO2T 34-46 mm Hg pCO2, Temp Correct 42 LAB PO2T mm Hg pO2, Temp Corrected 129 LAB NAB 135-146 mmol/L Sodium,Whole Bld Low 133 LAB KWB 3.5-5.0 mmol/L Potassium, Whole Bld 3.8 LAB HGBB 13.0-17.0 g/dL Low Hemoglobin,Total,AC 11.6 L LAB HCTB 39.0-51.0 % Hematocrit, ACL Low 36 LAB IC 1.08-1.30 mmol/L Calcium, Ion, WB Low 1.06 LAB GLB 60-105 mg/dL Glucose,Whole Bld High 135 LAB LACT 0.5-2.2 mmol/L Lactate 2.1 Performed By: #### ALLBG #### [facility] [address] [place], [place] [address] GASV + ALL Collected: 10/11/2017 Status: F Source: [place] 10:57 AM [facility] REPOSITORY TYPE CODE TESTS RESULT OUT OF REFERENCE UNITS RANGE LAB VPH 7.32-7.42 pH 7.41 LAB VPC2 42-55 mm Hg pCO2 45 LAB VPO2 35-45 mm Hg pO2 42 LAB VBE mmol/L Base Excess 4 LAB VHC3 24-28 mmol/L Bicarbonate 28 LAB VC2C 25-29 mmol/L CO2 Content 29 LAB O2HBCX 60-85 % Oxyhemoglobin, Willi. 73 LAB CO <2.0 % Carboxyhemoglobin,V 0.9 en LAB METHB 0.4-1.5 % Methemoglobin 0.5 LAB VTMP C Temperature, Body 37.0 LAB VPHTC 7.32-7.42 pH, Temp Corrected 7.41 LAB VPC2T mm Hg pCO2, Temp Correct 45 LAB VPO2T mm Hg pO2, Temp Corrected 42 LAB NAB 135-146 mmol/L Sodium,Whole Bld 135 LAB KWB 3.5-5.0 mmol/L Potassium, Whole Low Bld 3.4 LAB HGBB 13.0-17.0 g/dL Low Hemoglobin,Total,AC 10.7 L LAB HCTB 39.0-51.0 % Hematocrit, ACL Low 33 LAB IC 1.08-1.30 mmol/L Calcium, Ion, WB Low 1.01 LAB GLB 60-105 mg/dL Glucose,Whole Bld High 125 LAB LACT 0.5-2.2 mmol/L Lactate 1.8 Performed By: #### VALLBG #### [facility] [address] [place], [place] [address] ANES POST Observed: 10/11/2017 Status: COMPLETED Source: [place] 10:39 AM [facility] REPOSITORY HNO ID: [id number] Author: Josh Damon Service: Anesthesiology Author Type: Anesthesiologist Type: Anesthesia PostOp Filed: 10/11/2017 10:40 AM Note Text: POST ANESTHESIA EVALUATION NOTE SERVICE DATE: 10/11/2017 SERVICE TIME: 1039 : 1964 Vitals: 10/10/17 0009 10/10/17 1930 10/10/17 2330 10/11/17 0330 Temp: 38.2 ?C (100.8 ?F) 37.7 ?C (99.9 ?F) 37.9 ?C (100.2 ?F) 36.7 ?C (98.1 ?F) 10/11/17 0920 10/11/17 0940 10/11/17 1000 10/11/17 1020 Arterial BP 1: 129/72 114/63 134/75 130/73 BP: 10/11/17 0920 10/11/17 0940 10/11/17 1000 10/11/17 1020 Pulse: 89 89 89 89 10/11/17 0031 10/11/17 0352 10/11/17 0730 10/11/17 0909 Resp: 20 20 20 20 10/11/17 0920 10/11/17 0940 10/11/17 1000 10/11/17 1020 SpO2: 98% 98% 98% 97% Validated Vital Signs: Yes POST ANES STATUS: PACU/ICU Patient Condition: Guarded Neurological Status: On intravenous sedation. Pulmonary Status: On invasive mechanical ventilation. Airway Control: Intubated on mechanical ventilation. Cardiovascular Status: Guarded, On vasopressor and On inotropes Pain: Adequately controlled Postoperative Nausea/Vomiting: No significant post operative nausea or vomiting Postoperative Hydration Status: Adequate. Anesthetic Complications: None Recommendation: Continue current plan of care Other Remarks: SIGNATURE: Josh Damon MD PATIENT NAME: Jose Gustafson DATE: October 11, 2017 TIME: 10:39 AM PAGER/CONTACT #: [phone] CASE MANAGEM Observed: 10/11/2017 Status: COMPLETED Source: [place] 9:55 AM [facility] REPOSITORY O ID: [id number] Author: Ayaka Keita (Sw) Service: Care Management Author Type: Manager Package Type: Care Mgt Progress Note Filed: 10/11/2017 1:29 PM Note Text: CARE MANAGEMENT PROGRESS NOTE SERVICE DATE: 10/11/2017 SERVICE TIME: 9:55 AM LOS: 4 days Needs Prior to Discharge: To Be Determined Pt is a 52 year old male from [place], [place] who remains in the CVICU s/p the followin10/08/2017 Total arch replacement with FET under DHCA 10/08/2017 Chest exploration / Evacuation of hematoma / Open chest with wound vac Pt remains intubated and sedated. According to the EMR, it was noted earlier today that pt was not moving his left arm or leg, while clearly following commands with the right arm and leg. Emergent CT brain performed. CT showed new CVA. Pt was living independently with his spouse, Dana, prior to this admission. Discharge needs TBD at this time. CM will continue to follow medical course and plan discharge accordingly. ADDENDUM: SERVICE TIME: 12:00 PM Sw was asked by Monie Crenshaw, Nurse Coordinator, to see family as pt's spouse informed pt's mother that he had a stroke and she was very upset. The Nurse Coordinators were able to get the J6 conference room for the family. Sw introduced self and stated that this sw is available for emotional support. The family expressed appreciation for this sw's visit, but appeared to want time with just family. Sw will continue to follow for emotional support. SIGNATURE: SCARLETT Qiu PATIENT NAME: Jose Gustafson DATE: October 11, 2017 TIME: 9:55 AM PAGER/CONTACT #: [phone] GASV + ALL Collected: 10/11/2017 Status: F Source: [place] 8:58 AM [facility] REPOSITORY TYPE CODE TESTS RESULT OUT OF REFERENCE UNITS RANGE LAB VPH 7.32-7.42 pH 7.35 LAB VPC2 42-55 mm Hg pCO2 46 LAB VPO2 35-45 mm Hg pO2 High 53 LAB VBE mmol/L Base Excess NEG 1 LAB VHC3 24-28 mmol/L Bicarbonate 25 LAB VC2C 25-29 mmol/L CO2 Content 26 LAB O2HBCX 60-85 % Oxyhemoglobin, Willi. 83 LAB CO <2.0 % Carboxyhemoglobin, 0.8 Willi LAB METHB 0.4-1.5 % Methemoglobin 1.0 LAB VTMP C Temperature, Body 37.0 LAB VPHTC 7.32-7.42 pH, Temp Corrected 7.35 LAB VPC2T mm Hg pCO2, Temp Correct 46 LAB VPO2T mm Hg pO2, Temp Corrected 53 LAB NAB 135-146 mmol/L Sodium,Whole Bld 136 LAB KWB 3.5-5.0 mmol/L Potassium, Low Whole Bld 3.1 LAB HGBB 13.0-17.0 g/dL Low Hemoglobin,Total,A 10.0 CL LAB HCTB 39.0-51.0 % Hematocrit, Low ACL 31 LAB IC 1.08-1.30 mmol/L Calcium, Ion, Low WB 1.01 LAB GLB 60-105 mg/dL Glucose,Whole High Bld 111 LAB LACT 0.5-2.2 mmol/L Lactate 1.9 LAB VCBDTE Notify Date, Willi [id number] LAB VCBTME Notify Time, Willi Performed By: #### VALLBG #### [facility] [address] [place], [place] [address] GASA + ALL Collected: 10/11/2017 Status: F Source: [place] FOR 8:51 AM [facility] RADIANCE USE ONLY REPOSITORY TYPE CODE TESTS RESULT OUT OF REFERENCE UNITS RANGE LAB PH 7.35-7.45 pH 7.39 LAB PCO2 34-46 mm Hg pCO2 46 LAB PO2 85-95 mm Hg pO2 High 145 LAB BE mmol/L Base Excess 2 LAB HCO3 22-26 mmol/L Bicarbonate High 27 LAB CO2CT 22.0-28.0 mmol/L CO2 Content High 29 LAB O2HB 95-98 % Oxyhemoglobin, Art. 97 LAB COHB 0-5.0 % Carboxyhemoglobin, 0.3 Art LAB MHGB 0.4-1.5 % Methemoglobin 1.2 LAB TEMP C Temperature, Body 37.0 LAB PHTC 7.35-7.45 pH, Temp Corrected 7.39 LAB PCO2T 34-46 mm Hg pCO2, Temp Correct 46 LAB PO2T mm Hg pO2, Temp Corrected 145 LAB NAB 135-146 mmol/L Sodium,Whole Bld 136 LAB KWB 3.5-5.0 mmol/L Potassium, Whole Bld 3.8 LAB HGBB 13.0-17.0 g/dL Low Hemoglobin,Total,A 11.8 CL LAB HCTB 39.0-51.0 % Hematocrit, Low ACL 36 LAB IC 1.08-1.30 mmol/L Calcium, Ion, WB 1.09 LAB GLB 60-105 mg/dL Glucose,Whole High Bld 128 LAB LACT 0.5-2.2 mmol/L Lactate High 2.4 LAB ACBDTE Notify Date, Art [id number] LAB ACBTME Notify Time, Art Performed By: #### ALLBG #### [facility] [address], [place] [address] VANCOMYCIN Collected: 10/11/2017 Status: F Source: [place] 8:28 AM [facility] REPOSITORY TYPE CODE TESTS RESULT OUT OF REFERENCE UNITS RANGE LAB VANCRA 5.0-20.0 ug/mL Vancomycin 10.9 Result Comment: Reference ranges and high/low indicator flags are provided as general guidelines only. The treating physician must determine appropriate target levels/dosing based on the specific clinical situation. Performed By: #### VANCRA #### [facility] [address] [place], [place] [address] US TRANSCRANIAL DOPPLER Observed: 10/11/2017 Status: F Source: [place] 8:00 AM [facility] REPOSITORY * * *Final Report* * * DATE OF EXAM: Oct 11 2017 8:00AM [facility] [place] TRANSCRANIAL DOPPLER / PROCEDURE REASON: Stroke (HCC) * * * * Physician Interpretation * * * * CLINICAL HISTORY:52-year-old male with acute right MCA CVA. MCA(cm/sec) Left 69, PI 0.92 Right 37, PI 0.95 MYA(cm/sec) Left 61, PI 0.91 Right 68, PI 0.81 [employer]ENT(cm/sec) Left 35, PI 0.81 Right 22, PI 0.87 ICA(cm/sec) Left 59, PI 0.80 Right 45, PI 1.04 Ophthalmic(cm/sec) Left 15, PI 2.97 Right 15, PI 1.58 Basilar(cm/sec) 53, PI 0.89 Vertebral(cm/sec) Left 47, PI 0.51 Right 39, PI 1.10 Technologist: Donn Lazar, RVT IMPRESSION: There is asymmetry in mean flow velocities within the bilateral MCAs with right being significantly lower than left. Abnormal waveform is noted left vertebral artery and proximal basilar artery bunny sign suggesting early subclavian steal. Normal antegrade flow is noted right vertebral artery. The remainder of the exam is within normal limits. Silver Wrapper: AMY Transcribe Date/Time: Oct 11 2017 8:01A Dictated by : PATRICIO CARR MD This examination was interpreted and the report reviewed and electronically signed by: PATRICIO CARR MD on Oct 11 2017 9:34AM EST [id number] + ALL Collected: 10/11/2017 Status: F Source: [place] 6:24 AM [facility] REPOSITORY TYPE CODE TESTS RESULT OUT OF REFERENCE UNITS RANGE LAB VPH 7.32-7.42 pH 7.40 LAB VPC2 42-55 mm Hg pCO2 48 LAB VPO2 35-45 mm Hg pO2 High 47 LAB VBE mmol/L Base Excess 4 LAB VHC3 24-28 mmol/L Bicarbonate High 29 LAB VC2C 25-29 mmol/L CO2 Content High 30 LAB O2HBCX 60-85 % Oxyhemoglobin, Willi. 81 LAB CO <2.0 % Carboxyhemoglobin,V 1.1 en LAB METHB 0.4-1.5 % Methemoglobin 0.7 LAB VTMP C Temperature, Body 37.0 LAB VPHTC 7.32-7.42 pH, Temp Corrected 7.40 LAB VPC2T mm Hg pCO2, Temp Correct 48 LAB VPO2T mm Hg pO2, Temp Corrected 47 LAB NAB 135-146 mmol/L Sodium,Whole Bld 137 LAB KWB 3.5-5.0 mmol/L Potassium, Whole Bld 3.7 LAB HGBB 13.0-17.0 g/dL Low Hemoglobin,Total,AC 11.4 L LAB HCTB 39.0-51.0 % Hematocrit, ACL Low 35 LAB IC 1.08-1.30 mmol/L Calcium, Ion, WB 1.12 LAB GLB 60-105 mg/dL Glucose,Whole Bld High 147 LAB LACT 0.5-2.2 mmol/L Lactate High 2.5 Performed By: #### VALLBG #### [facility] [address] [place], [place] [address] GASA + ALL Collected: 10/11/2017 Status: F Source: [place] FOR 6:20 AM [facility] USE ONLY REPOSITORY TYPE CODE TESTS RESULT OUT OF REFERENCE UNITS RANGE LAB PH 7.35-7.45 pH 7.43 LAB PCO2 34-46 mm Hg pCO2 43 LAB PO2 85-95 mm Hg pO2 High 123 LAB BE mmol/L Base Excess 3 LAB HCO3 22-26 mmol/L Bicarbonate High 28 LAB CO2CT 22.0-28.0 mmol/L CO2 Content High 29 LAB O2HB 95-98 % Oxyhemoglobin, Art. 97 LAB COHB 0-5.0 % Carboxyhemoglobin,A 1.0 rt LAB MHGB 0.4-1.5 % Methemoglobin 0.8 LAB TEMP C Temperature, Body 37.0 LAB PHTC 7.35-7.45 pH, Temp Corrected 7.43 LAB PCO2T 34-46 mm Hg pCO2, Temp Correct 43 LAB PO2T mm Hg pO2, Temp Corrected 123 LAB NAB 135-146 mmol/L Sodium,Whole Bld 135 LAB KWB 3.5-5.0 mmol/L Potassium, Whole Bld 3.7 LAB HGBB 13.0-17.0 g/dL Low Hemoglobin,Total,AC 11.7 L LAB HCTB 39.0-51.0 % Hematocrit, ACL Low 36 LAB IC 1.08-1.30 mmol/L Calcium, Ion, WB 1.10 LAB GLB 60-105 mg/dL Glucose,Whole Bld High 150 LAB LACT 0.5-2.2 mmol/L Lactate High 2.7 Performed By: #### ALLBG #### [facility] [address] [id number] PROGRESS Observed: 10/11/2017 Status: COMPLETED Source: [place] 5:33 AM [facility] REPOSITORY HNO ID: [id number] Author: Evan Dunn V Service: Critical Care Author Type: Anesthesiologist Type: Progress Notes Filed: 10/11/2017 5:50 AM Note Text: CTA Progress note Patient noted earlier to not be moving left arm or leg, while clearly following commands with the right arm and leg. Pupils equal and reactive. 2-clot called immediately, and bedside emergent CT brain performed. CT showed new CVA, no indication for neurosurgery consult per neurology team evaluating CT and patient. CTS fellow spoke with Dr. Mckenzie--patient not a candidate for CTA brain currently. Attempted to reach patient's unsuccessfully. Repeat CT brain, carotid ultrasound, TCD ordered as per neurology recommendations. Spoke with neurosurgery resident management consultant and discussed case--they will leave to neurology whether neurosurgery needs to consult on patient. Evan Dunn MD XR CHEST 1V FRONTAL Observed: 10/11/2017 Status: F Source: [facility] 4:52 AM [facility] REPOSITORY * * *Final Report* * * DATE OF EXAM: Oct 11 2017 4:52AM [facility] [id number] - XR CHEST 1V FRONTAL PORT / PROCEDURE REASON: Postoperative state * * * * Physician Interpretation * * * * EXAMINATION: CHEST RADIOGRAPH (PORTABLE SINGLE VIEW AP) Exam Date/Time: 10/11/2017 4:52 AM Indication: Postoperative state MQ: XCP_4 Comparison: 1 day prior RESULT: See impression. IMPRESSION: Lines, tubes, and devices: Endotracheal tube, NG/orogastric tube, right IJ PA catheter, multiple right chest tubes and mediastinal drains are in stable positions. Lungs and pleura: Mild bilateral perihilar reticular opacities are suggestive of pulmonary interstitial edema. Stable or mildly improved bilateral basilar subsegmental atelectases and trace pleural effusions. 5 mm right pneumothorax noted. Cardiomediastinal silhouette: Stable cardiomediastinal silhouette. Stable endovascular stent graft in the proximal descending aorta. Mild pneumomediastinum, likely postsurgical. Other: Silver Wrapper: PSCB Transcribe Date/Time: Oct 11 2017 8:07A Dictated by : ABHAY SALAZAR MD This examination was interpreted and the report reviewed and electronically signed by: ABHAY SALAZAR MD on Oct 11 2017 8:08AM EST [id number] + ALL Collected: 10/11/2017 Status: F Source: [place] 4:21 AM [facility] REPOSITORY TYPE CODE TESTS RESULT OUT OF REFERENCE UNITS RANGE LAB VPH 7.32-7.42 pH 7.36 LAB VPC2 42-55 mm Hg pCO2 53 LAB VPO2 35-45 mm Hg pO2 40 LAB VBE mmol/L Base Excess 3 LAB VHC3 24-28 mmol/L Bicarbonate High 29 LAB VC2C 25-29 mmol/L CO2 Content High 31 LAB O2HBCX 60-85 % Oxyhemoglobin, Willi. 70 LAB CO <2.0 % Carboxyhemoglobin,V 0.8 en LAB METHB 0.4-1.5 % Methemoglobin 1.4 LAB VTMP C Temperature, Body 37.0 LAB VPHTC 7.32-7.42 pH, Temp Corrected 7.36 LAB VPC2T mm Hg pCO2, Temp Correct 53 LAB VPO2T mm Hg pO2, Temp Corrected 40 LAB NAB 135-146 mmol/L Sodium,Whole Bld 135 LAB KWB 3.5-5.0 mmol/L Potassium, Whole Bld 3.9 LAB HGBB 13.0-17.0 g/dL Low Hemoglobin,Total,AC 11.7 L LAB HCTB 39.0-51.0 % Hematocrit, ACL Low 36 LAB IC 1.08-1.30 mmol/L Calcium, Ion, WB 1.11 LAB GLB 60-105 mg/dL Glucose,Whole Bld High 145 LAB LACT 0.5-2.2 mmol/L Lactate 2.2 Performed By: #### VALLBG #### [facility] [address] [place], [place] [address] GASA + ALL Collected: 10/11/2017 Status: F Source: [place] FOR 4:17 AM [facility] RADIANCE USE ONLY REPOSITORY TYPE CODE TESTS RESULT OUT OF REFERENCE UNITS RANGE LAB PH 7.35-7.45 pH 7.39 LAB PCO2 34-46 mm Hg pCO2 46 LAB PO2 85-95 mm Hg pO2 High 103 LAB BE mmol/L Base Excess 3 LAB HCO3 22-26 mmol/L Bicarbonate High 28 LAB CO2CT 22.0-28.0 mmol/L CO2 Content High 29 LAB O2HB 95-98 % Oxyhemoglobin, Art. 96 LAB COHB 0-5.0 % Carboxyhemoglobin,A 0.7 rt LAB MHGB 0.4-1.5 % Methemoglobin 1.3 LAB TEMP C Temperature, Body 37.0 LAB PHTC 7.35-7.45 pH, Temp Corrected 7.39 LAB PCO2T 34-46 mm Hg pCO2, Temp Correct 46 LAB PO2T mm Hg pO2, Temp Corrected 103 LAB NAB 135-146 mmol/L Sodium,Whole Bld 135 LAB KWB 3.5-5.0 mmol/L Potassium, Whole Bld 4.0 LAB HGBB 13.0-17.0 g/dL Low Hemoglobin,Total,AC 12.0 L LAB HCTB 39.0-51.0 % Hematocrit, ACL Low 37 LAB IC 1.08-1.30 mmol/L Calcium, Ion, WB 1.12 LAB GLB 60-105 mg/dL Glucose,Whole Bld High 148 LAB LACT 0.5-2.2 mmol/L Lactate 2.2 Performed By: #### ALLBG #### [facility] [address] [place] [place] [address] GASV + ALL Collected: 10/11/2017 Status: F Source: [place] 2:12 AM [facility] REPOSITORY TYPE CODE TESTS RESULT OUT OF REFERENCE UNITS RANGE LAB VPH 7.32-7.42 pH 7.34 LAB VPC2 42-55 mm Hg pCO2 54 LAB VPO2 35-45 mm Hg pO2 High 46 LAB VBE mmol/L Base Excess 2 LAB VHC3 24-28 mmol/L Bicarbonate High 29 LAB VC2C 25-29 mmol/L CO2 Content High 30 LAB O2HBCX 60-85 % Oxyhemoglobin, Willi. 73 LAB CO <2.0 % Carboxyhemoglobin,V 0.9 en LAB METHB 0.4-1.5 % Methemoglobin 0.9 LAB VTMP C Temperature, Body 37.0 LAB VPHTC 7.32-7.42 pH, Temp Corrected 7.34 LAB VPC2T mm Hg pCO2, Temp Correct 54 LAB VPO2T mm Hg pO2, Temp Corrected 46 LAB NAB 135-146 mmol/L Sodium,Whole Bld 136 LAB KWB 3.5-5.0 mmol/L Potassium, Whole Bld 4.0 LAB HGBB 13.0-17.0 g/dL Low Hemoglobin,Total,AC 12.0 L LAB HCTB 39.0-51.0 % Hematocrit, ACL Low 37 LAB IC 1.08-1.30 mmol/L Calcium, Ion, WB 1.12 LAB GLB 60-105 mg/dL Glucose,Whole Bld High 128 LAB LACT 0.5-2.2 mmol/L Lactate High 2.3 Performed By: #### VALLBG #### [facility] [address] [place], [place] [address] GASA + ALL Collected: 10/11/2017 Status: F Source: [place] FOR 2:09 AM [facility] RADIANCE USE ONLY REPOSITORY TYPE CODE TESTS RESULT OUT OF REFERENCE UNITS RANGE LAB PH 7.35-7.45 pH 7.37 LAB PCO2 34-46 mm Hg pCO2 High 49 LAB PO2 85-95 mm Hg pO2 High 109 LAB BE mmol/L Base Excess 2 LAB HCO3 22-26 mmol/L Bicarbonate High 27 LAB CO2CT 22.0-28.0 mmol/L CO2 Content High 29 LAB O2HB 95-98 % Oxyhemoglobin, Art. 96 LAB COHB 0-5.0 % Carboxyhemoglobin,A 0.9 rt LAB MHGB 0.4-1.5 % Methemoglobin 0.8 LAB TEMP C Temperature, Body 37.0 LAB PHTC 7.35-7.45 pH, Temp Corrected 7.37 LAB PCO2T 34-46 mm Hg pCO2, Temp High Correct 49 LAB PO2T mm Hg pO2, Temp Corrected 109 LAB NAB 135-146 mmol/L Sodium,Whole Bld 136 LAB KWB 3.5-5.0 mmol/L Potassium, Whole Bld 4.0 LAB HGBB 13.0-17.0 g/dL Low Hemoglobin,Total,AC 12.1 L LAB HCTB 39.0-51.0 % Hematocrit, ACL Low 37 LAB IC 1.08-1.30 mmol/L Calcium, Ion, WB 1.13 LAB GLB 60-105 mg/dL Glucose,Whole Bld High 128 LAB LACT 0.5-2.2 mmol/L Lactate High 2.3 Performed By: #### ALLBG #### [facility] [address] [place], [place] [address] PROGRESS Observed: 10/11/2017 Status: COMPLETED Source: [place] 2:00 AM [facility] REPOSITORY HNO ID: [id number] Author: YUNI Fitzgerald (Ct) Service: Radiology Author Type: Clinical Corporate Tax Preparer Type: Progress Notes Filed: 10/11/2017 5:05 AM Note Text: Radiology Service Progress Note PATIENT NAME: Jose Gustafson DATE OF SERVICE: October 11, 2017 TIME: 5:05 AM PATIENT IDENTITY VERIFICATION COMPLETED USING TWO (2) METHODS: Patient confirmed name verbally and ID band matches.. PATIENT GENDER DATA: Male PATIENT RELEVANT IMPLANT DATA REVIEWED: Yes RADIOLOGY DEPARTMENT: CT; Exam(s) Completed: Brain PERIPHERAL IV DATA: Not applicable SIGNED BY: YNUI Fitzgerald October 11, 2017 5:[address] BRAIN WO IVCON Observed: 10/11/2017 Status: F Source: [place] 1:41 AM [facility] REPOSITORY * * *Final Report* * * DATE OF EXAM: Oct 11 2017 1:41AM [facility] [place] - CT BRAIN WO IVCON / PROCEDURE REASON: Stroke (HCC) * * * * Physician Interpretation * * * * EXAMINATION: CT BRAIN WO IVCON HISTORY: 52-year-old postop day 3 from total arch repair. New left upper extremity/left lower extremity weakness, last known well 1700 hours on 10/10/2017. Not on anticoagulation. TECHNIQUE: Serial axial images without IV contrast were obtained from the vertex to the foramen magnum. MQ: [id number] CT Dose-Length Product (DLP): 784 mGy*cm CT Dose Reduction Employed: No dose reduction techniques were required COMPARISON: None. RESULT: The study is degraded by beam hardening artifact. Acute ischemic change: Region of low attenuation involving the right temporal and frontal lobes; largely in the M2 and M3 distribution. ASPECT Score = 5 Hemorrhage: No evidence of acute intracranial hemorrhage. ECASS Hemorrhagic Transformation Score = Not Applicable Mass Lesion / Mass Effect: There is no evidence of an intracranial mass or extraaxial fluid collection. There is mild mass effect from the infarcted territory on the right lateral ventricle. Chronic change: None. Parenchyma: There is no significant volume loss. The brain parenchyma is otherwise within normal limits for age. Ventricles: Mild effacement of the right lateral ventricle. Other: Endotracheal tube is in place. Mucosal thickening is present in both maxillary sinuses, the ethmoidal air cells, frontal sinus, and the sphenoid sinuses. The visualized calvarium, skull base, orbits and extracranial soft tissues are otherwise normal. IMPRESSION: Large right middle cerebral artery infarct with mild associated mass effect on the right lateral ventricle. No evidence of acute hemorrhage. CRITICAL TEST/RESULTS: Notification initiated at 0154 hours. Communicated with Lc Landis M.D. on 10/11/2017 at 0158 hours. CR_1 Silver Wrapper: AMY Transcribe Date/Time: Oct 11 2017 1:41A Dictated by : TEO JOHNSON MD This examination was interpreted and the report reviewed and electronically signed by: LIANA BERNAL MD on Oct 11 2017 2:08AM EST [id number] CONSULT Observed: 10/11/2017 Status: COMPLETED Source: [place] 1:17 AM [facility] REPOSITORY HNO ID: [id number] Author: Sher Stinson Service: Neurology Author Type: Physician Type: Consults Filed: 10/11/2017 8:47 PM Note Text: INITIAL CONSULT NEURO STROKE SERVICE DATE: 10/11/2017 SERVICE TIME: 0117 REQUESTING PHYSICIAN: Melissa PCP: Kaykay Beth MD REASON FOR STROKE EVALUATION: L Sided weakness Subjective HPI: Mr. Gustafson is a 52 yo male presenting as 2CLOT for L sided weakness. 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 Hospital course as below: - 10/07/17 Total Arch replacement. 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 C/b mild hypotension requiring continued pressors and bleeding s/p multiple blood products in OR. Chest unable to be closed during surgery. - 10/08/17. Chest exploration w/ hematoma evacuation. Chest continued to be open - 10/10/17 Chest washout w/ wound vac. Chest still open. Pt remains on multiple pressors (epi, levo, phenyl) and intubated. 2CLOT called after nursing noted patient to not be moving his LUE and LLE to command or stim. Pt was reportedly moving all ext at 5pm on 10/10/17. Pt was not on sedation, not on AC and no report of afib. Pt was on ASA 162. Labs sig for: PLT 108, wbc 12.49, SCr 2.18 Pre-admission Was patient on antithrombotic agent prior to admission: No Was patient on lipid lowering agent prior to admission: No Pre-morbid mRS: Premorbid Modified [place] Score: 0 - No symptoms at all PAST MEDICAL HISTORY Diagnosis Date - Acute kidney injury (HCC) 10/09/2017 - History of kidney stones - Hypertension - Unspecified asthma(493.90) PAST SURGICAL HISTORY Procedure Laterality Date - COLONOSCOP W/ OR W/O RUST SPEC 08/23/2014 Colonoscopy - LITHOTRIPSY EXTRACORP SHOCK WAVE(ESWL) 18 months ago - PAST SURGICAL HISTORY OF 2012 left ankle ORIF- hardware - PAST SURGICAL HISTORY OF 2012 ORIF left wrist - hardware - REMOVAL OF HEEL SPUR 2002, 2004 Bilateral - REPAIR ING HERNIA,5+Y/O,REDUCIBL Hernia repair, inguinal, as infant Social History Marital status: Spouse name: Years of education: Number of children: Social History Main Topics Smoking status: Light Tobacco Smoker Packs/day: 0.00 Years: 0.00 Types: Cigars Smokeless status: Never Used Alcohol use: Yes 6.0 oz/week 4 Cans of Beer (12oz) per week Drug use: No Sexual activity: Yes Partners with: Female FAMILY HISTORY Problem Relation Age of Onset - Stroke Father age 48 of CVA - Asthma Paternal Grandfather ALLERGIES Allergen Reactions - Cats - Grass Pollen Itching MEDICATION Pre-admission Prescriptions Prior to Admission: cetirizine-pseudoephedrine (ZYRTEC-D) 5-120 mg per tablet Take 1 tablet by mouth twice daily as needed. Disp: 60 tablet Rfl: 2 fluticasone (FLONASE) 50 mcg/actuation nasal spray Use 1 [place] in each nostril once daily. Disp: 16 g Rfl: 2 Lactobacillus acidophilus (FLORAJEN) 460 mg (20 billion cell) cap Take 1 capsule by mouth once daily. Disp: 30 capsule Rfl: 0 fluticasone-vilanterol (BREO ELLIPTA) 200-25 mcg/dose inhaler Inhale 1 Inhalation as instructed once daily. Inhale one puff once daily. DO NOT CLICK OPEN UNTIL READY FOR DOSE Disp: 3 Each Rfl: 3 lisinopril (ZESTRIL, PRINIVIL) 5 mg tablet Take 1 tablet by mouth once daily. Disp: 30 tablet Rfl: 11 Current cetirizine-pseudoephedrine (ZYRTEC-D) 5-120 mg per tablet Take 1 tablet by mouth twice daily as needed. fluticasone (FLONASE) 50 mcg/actuation nasal spray Use 1 [place] in each nostril once daily. Lactobacillus acidophilus (FLORAJEN) 460 mg (20 billion cell) cap Take 1 capsule by mouth once daily. fluticasone-vilanterol (BREO ELLIPTA) 200-25 mcg/dose inhaler Inhale 1 Inhalation as instructed once daily. Inhale one puff once daily. DO NOT CLICK OPEN UNTIL READY FOR DOSE lisinopril (ZESTRIL, PRINIVIL) 5 mg tablet Take 1 tablet by mouth once daily. REVIEW OF SYSTEMS unable to obtain. See hpi Objective PHYSICAL EXAM Vital Signs: BP 152/83 Pulse 89 Temp 37.9 ?C (100.2 ?F) (Core) Resp 20 Ht 182.9 cm (6') Wt 85 kg (187 lb 6.3 oz) SpO2 96% BMI 25.41 kg/m2 GENERAL: Difficult to arouse HEENT: Normocephalic/atraumatic RESPIRATORY: Intubated EXTREMITIES: No cyanosis, clubbing or edema. Good capillary refill. SKIN: Open chest w/ wound vac NEUROLOGICAL: LOC: 2 - arousable to painful stimulation only 2 LOC Questions: 2 - none correct 2 LOC Commands: 2 - neither correct 2 LOC Normal Gaze: 0 - normal gaze 0 Visual Helms: 0 - no visual loss 0 Facial Palsy: 0 - normal 0 Motor Left Arm: 4 - no movement at all 4 Motor Right Arm: 3 - no antigravity effort but even minimal movements count 3 Motor Left Le - no movement at all 4 Motor Right Le - no antigravity effort but even minimal movements count 3 Limb Ataxia: 0 - no ataxia (or aphasic, hemiplegic) 0 Sensory: 2 - total loss, patient unaware of touch. coma, bilateral loss 2 Language: 3 - mute, global aphasia, coma 3 Dysarthria: X - intubation or mech barrier X Extinction/Neglect: 0 - normal, none detected (or visual loss alone) 0 Initial NIHSS: 25 (10/11/17 0100 : Lc (ResUriel Landis) 25 MENTAL STATUS: Intubated. Does not nod to orientation questions. Intermittently wiggles toes but unclear if it is to command. He is unable to perform any other commands such as make a fist, show thumbs up or open his eyes. CRANIAL NERVES: Gaze midline. PERRLA, Visual helms intact to confrontation, Face symmetric and No facial droop or ptosis. No cough but intact corneal reflex MOTOR: Localizes with his RUE and wiggles his toes on the right. No other motor response to noxious stimuli REFLEXES: Hyper-reflexic throughout SENSATION: Intact noxious stimuli on the right but not the left DATA: Diagnostic tests reviewed for today's visit: Lipids, HbA1c, CMP, CBC, Coags Recent Labs 10/11/17 0003 10/11/17 0001 10/10/17 2359 10/10/17 2151 10/10/17 1951 10/10/17 0200 10/09/17 0740 10/09/17 0003 10/08/17 1710 10/08/17 1135 NA -- -- -- -- -- -- -- 139 -- -- -- 143 -- -- -- -- K -- -- -- -- -- -- -- 4.2 -- -- -- 4.7 -- -- -- -- CHLOR -- -- -- -- -- -- -- 100 -- -- -- 100 -- -- -- -- CO2 -- 31* -- 30* -- 29 < > 26 < > -- < > 26 < > -- < > -- BUN -- -- -- -- -- -- -- 27* -- -- -- 21 -- -- -- -- CREAT -- -- -- -- -- -- -- 2.18* -- -- -- 2.16* -- -- -- -- GLUC -- -- -- -- -- -- -- 131* -- -- -- 191* -- -- -- -- IC -- 1.07* 1.10 1.11 < > 1.13 < > -- < > -- < > -- < > -- < > -- CA -- -- -- -- -- -- -- 7.6* -- -- -- 8.8 -- -- -- -- WBC 12.49* -- -- -- -- -- -- 13.13* -- 11.20* -- 10.38 -- 9.26 -- 6.86 HB 11.2* -- -- -- -- -- -- 10.9* -- 10.3* -- 9.8* -- 9.8* -- 9.2* HCT 34.3* -- -- -- -- -- -- 31.8* -- 29.7* -- 28.5* -- 27.6* -- 25.9* PLT 108* -- -- -- -- -- -- 96* -- 99* -- 147* -- 188 -- 158 INR -- -- -- -- -- -- -- -- -- 1.2 -- -- -- 1.2 -- 1.2 APTT -- -- -- -- -- -- -- -- -- 39.2* -- -- -- 31.3 -- 32.3 < > = values in this interval not displayed. Cardiac Enzymes Recent Labs 10/09/17 0003 TROPT 1.770* usCRP Most recent labs and imaging results. STROKE CARE PATH CURRY METRICS Date Patient Last Known Well: 10/10/17 Time Patient Last Known Well: 1700 Stu Coma Scale Totals (Calculated): 8 STROKE 9 CARE AND PREVENTION CHECKLIST 1. 2. 3. 4. 5. 6. 7. 8. 9. Stroke Care and Prevention (personally reviewed by Niurka Freedman DO): PROBLEM LIST: Principal Problem: Dissection of thoracic aorta (HCC) POA: Unknown Active Problems: Aortic dissection (HCC) POA: Yes Asthma POA: Yes Atelectasis POA: Unknown Hypoxia POA: Unknown Postoperative hypotension POA: Unknown Pain, postoperative, acute POA: Unknown Lactic acid acidosis POA: Unknown Coagulopathy (HCC) POA: Unknown Acute blood loss anemia POA: Unknown Acute kidney injury (HCC) POA: Unknown Cardiac insufficiency (HCC) POA: Unknown Resolved Problems: * No resolved hospital problems. * Impression/Recommendations Jose Gustafson is a 52yo male w/ hx of htn who is POD3 for total arch repair c/b bleeding, hypotension and chest closure failure. 2clot called for L sided weakness w/ LKW 1700 on 10/10/17. iNIHSS 25. CTH w/ hypodensity in RMCA distribution. ? Given dense L sided weakness and complicated surgical and clinical course it is likely patient experienced embolic infarct vs dissection into R carotid (given recent tear involving innominate). Given medical instability at this time, he is unable to obtain CTA H AND N. Risk Factors Hypertension Recent surgery c/b bleeding and hypotension Stroke Mechanism PLAN - Imaging - Carotid US and Trancranial doppler - Repeat CTH in 24hrs - When able, obtain MRI Brain wo contrast and MRA brain wo contrast MRA Carotid w/wo w - Labs: - Obtain Hemoglobin A1c and Lipid Panel IV tPA was not recommended to be given to the patient, refer to Exclusion Criteria as documented in Stroke Care Path. Imaging Ordered Today: CT Brain Attack ordered for neuro deficit < 8 hours of symptom onset. SIGNATURE: Niurka Freedman DO PATIENT NAME: Jose Gustafson DATE: October 11, 2017 TIME: 1:18 AM PAGER/CONTACT #: [phone] Senior Resident Addendum I have seen and evaluated the patient with the resident. I have personally reviewed the history and medical record. Please refer to the note above, which I have directly edited. Lc Landis MD October 11, 2017 2:39 AM [facility] STAFF PHYSICIAN NOTE OF PERSONAL INVOLVEMENT IN CARE I have reviewed the consult note obtained and documented by the resident and I personally participated in the curry components. I have discussed the case and management of the patient's care. The following comments revise or confirm relevant curry components of their note. Patient is critically ill from both cardiac and neurologic conditions at this time Patient is intubated and sedated CT Head shows large right MCA infarct with associated krys effect Given infarct volume and limited room to swell, patient is at high risk for malignant cerebral edema Case discussed with Dr. Mckenzie Consult neurosurgery regarding possible hemicraniectomy, if cardiac and hemodynamic stability improves Consult neuro critical care service regarding management of malignant cerebral edema Unfortunately, patient is not medically stable to tolerate hemicraniectomy at this time. Serial exams and close observation are indicated to evaluate for progression of malignant cerebral edema. We will be hopeful that his cardiac and hemodynamic status improves, so that in the event that he requires hemicraniectomy, he would be able to tolerate this procedure. Repeat CT head without contrast in a.m. 10/12/2017 Lengthy discussion with patient's and daughter regarding neurological condition; all questions answered. We met with the patient, available family, nursing, and unit care team at the bedside. We discussed the ongoing evaluation and management of the patient in a collaborative fashion. We educated the patient and family on stroke risk factors, and continued evaluation and management of their medical problems. All questions were answered. SIGNATURE: Sher Stinson DO PAGER: [phone] DATE of SERVICE: 10/11/2017 TIME of SERVICE: 4 PM CBC Collected: 10/11/2017 Status: F Source: [place] 12:03 AM [facility] REPOSITORY TYPE CODE TESTS RESULT OUT OF REFERENCE UNITS RANGE LAB WBC 3.70-11.00 k/uL WBC High 12.49 LAB RBC 4.20-6.00 m/uL Low RBC 3.78 LAB HGB 13.0-17.0 g/dL Low Hemoglobin 11.2 LAB HCT 39.0-51.0 % Low Hematocrit 34.3 LAB MCV 80.0-100.0 fL MCV 90.7 LAB MCH 26.0-34.0 pG MCH 29.6 LAB MCHC 30.5-36.0 g/dL MCHC 32.7 LAB RDWCV 11.5-15.0 % RDW-CV High 15.8 LAB PLTCT 150-400 k/uL Low Platelet Count 108 LAB MPV 9.0-12.7 fL MPV 10.8 LAB ABSNUC <0.01 k/uL Absolute nRBC <0.01 Performed By: #### CBC, CMP #### [facility] [address] [address] COMP METABOLIC PANEL Collected: 10/11/2017 Status: F Source: [place] 12:03 [facility] REPOSITORY TYPE CODE TESTS RESULT OUT OF REFERENCE UNITS RANGE LAB TP 6.3-8.0 g/dL Low Protein, Total 5.2 LAB ALB 3.9-4.9 g/dL Low Albumin 2.9 LAB CA 8.5-10.2 mg/dL Low Calcium, Total 7.9 LAB TBIL 0.2-1.3 mg/dL Bilirubin, High Total 1.9 LAB ALKP 36-108 U/L Alkaline Phosphatase 55 LAB AST 14-40 U/L AST High 257 LAB GLU 74-99 mg/dL Glucose High 114 Result Comment: The [place] [employer] (ADA) provides guidance for cutoff values for fasting glucose and random glucose. The ADA defines fasting as no caloric intake for at least 8 hours. Fas ting plasma glucose results between 100 to 125 mg/dL indicate increased risk for diabetes (prediabetes). Fasting plasma glucose results greater than or equal to 126 mg/dL meet the criteria for diagnosis of diabetes. In the absence of unequivocal hyperglycemia, results should be confirmed by repeat testing. In a patient with classic symptoms of hyperglycemia or hyperglycemic crisis, random plasma glucose results greater than or equal to 200 mg/dL meet the criteria for diagnosis of diabetes. Reference: Standards of Medical Care in Diabetes 2016, [place] [employer] Association. Diabetes Care. 2016.39(Suppl 1). LAB BUN 9-24 mg/dL BUN High 29 LAB CRET 0.73-1.22 mg/dL Creatinine High 1.95 LAB NA 136-144 mmol/L Sodium 137 LAB K 3.7-5.1 mmol/L Potassium 4.4 LAB CL 97-105 mmol/L Chloride 97 LAB CO2 22-30 mmol/L CO2 28 LAB AGAP 9-18 mmol/L Anion Gap 12 LAB ALT 10-54 U/L ALT High 345 LAB GFRAA eGFR- Amer. 44 LAB GFRNAA . eGFR-All Other Races 36 Result Comment: eGFR (Estimated GFR) Units of measure: mL/min/1.73 meters squared eGFR is derived from the reexpressed MDRD Study equation using the following parameters: serum creatinine, age, gender and race. The creatinine assay has been calibrated to be traceable to IDMS. An eGFR <60 mL/min/1.73m2 for >3 months is consistent with chronic kidney disease. Refer to KDOQI guidelines for clinical interpretation. In patients with unstable renal function, e.g. those with acute kidney injury, the eGFR may not accurately reflect actual GFR. Performed By: #### CBC, CMP #### [facility] [address] [place], [place] [address] GASV + ALL Collected: 10/11/2017 Status: F Source: [place] 12:01 AM [facility] REPOSITORY TYPE CODE TESTS RESULT OUT OF REFERENCE UNITS RANGE LAB VPH 7.32-7.42 pH 7.36 LAB VPC2 42-55 mm Hg pCO2 52 LAB VPO2 35-45 mm Hg pO2 44 LAB VBE mmol/L Base Excess 3 LAB VHC3 24-28 mmol/L Bicarbonate High 29 LAB VC2C 25-29 mmol/L CO2 Content High 31 LAB O2HBCX 60-85 % Oxyhemoglobin, Willi. 72 LAB CO <2.0 % Carboxyhemoglobin,V 0.7 en LAB METHB 0.4-1.5 % Methemoglobin 0.6 LAB VTMP C Temperature, Body 37.0 LAB VPHTC 7.32-7.42 pH, Temp Corrected 7.36 LAB VPC2T mm Hg pCO2, Temp Correct 52 LAB VPO2T mm Hg pO2, Temp Corrected 44 LAB NAB 135-146 mmol/L Sodium,Whole Bld Low 134 LAB KWB 3.5-5.0 mmol/L Potassium, Whole Bld 4.0 LAB HGBB 13.0-17.0 g/dL Low Hemoglobin,Total,AC 11.3 L LAB HCTB 39.0-51.0 % Hematocrit, ACL Low 35 LAB IC 1.08-1.30 mmol/L Calcium, Ion, WB Low 1.07 LAB GLB 60-105 mg/dL Glucose,Whole Bld High 116 LAB LACT 0.5-2.2 mmol/L Lactate High 2.5 Performed By: #### VALLBG #### [facility] [address] [place], [place] [address] GASA + ALL Collected: 10/10/2017 Status: F Source: [place] FOR 11:59 PM [facility] RADIANCE USE ONLY REPOSITORY TYPE CODE TESTS RESULT OUT OF REFERENCE UNITS RANGE LAB PH 7.35-7.45 pH 7.40 LAB PCO2 34-46 mm Hg pCO2 44 LAB PO2 85-95 mm Hg pO2 High 126 LAB BE mmol/L Base Excess 2 LAB HCO3 22-26 mmol/L Bicarbonate High 27 LAB CO2CT 22.0-28.0 mmol/L CO2 Content 28 LAB O2HB 95-98 % Oxyhemoglobin, Art. 97 LAB COHB 0-5.0 % Carboxyhemoglobin,A 0.9 rt LAB MHGB 0.4-1.5 % Methemoglobin 0.8 LAB TEMP C Temperature, Body 37.0 LAB PHTC 7.35-7.45 pH, Temp Corrected 7.40 LAB PCO2T 34-46 mm Hg pCO2, Temp Correct 44 LAB PO2T mm Hg pO2, Temp Corrected 126 LAB NAB 135-146 mmol/L Sodium,Whole Bld 135 LAB KWB 3.5-5.0 mmol/L Potassium, Whole Bld 4.1 LAB HGBB 13.0-17.0 g/dL Low Hemoglobin,Total,AC 11.5 L LAB HCTB 39.0-51.0 % Hematocrit, ACL Low 36 LAB IC 1.08-1.30 mmol/L Calcium, Ion, WB 1.10 LAB GLB 60-105 mg/dL Glucose,Whole Bld High 114 LAB LACT 0.5-2.2 mmol/L Lactate High 2.6 Performed By: #### ALLBG #### [facility] [address] [place], [place] [address] GASV + ALL Collected: 10/10/2017 Status: F Source: [place] 9:51 PM [facility] REPOSITORY TYPE CODE TESTS RESULT OUT OF REFERENCE UNITS RANGE LAB VPH 7.32-7.42 pH 7.37 LAB VPC2 42-55 mm Hg pCO2 50 LAB VPO2 35-45 mm Hg pO2 44 LAB VBE mmol/L Base Excess 3 LAB VHC3 24-28 mmol/L Bicarbonate 28 LAB VC2C 25-29 mmol/L CO2 Content High 30 LAB O2HBCX 60-85 % Oxyhemoglobin, Willi. 72 LAB CO <2.0 % Carboxyhemoglobin,V 0.9 en LAB METHB 0.4-1.5 % Methemoglobin 0.9 LAB VTMP C Temperature, Body 37.0 LAB VPHTC 7.32-7.42 pH, Temp Corrected 7.37 LAB VPC2T mm Hg pCO2, Temp Correct 50 LAB VPO2T mm Hg pO2, Temp Corrected 44 LAB NAB 135-146 mmol/L Sodium,Whole Bld Low 134 LAB KWB 3.5-5.0 mmol/L Potassium, Whole Bld 4.1 LAB HGBB 13.0-17.0 g/dL Low Hemoglobin,Total,AC 11.3 L LAB HCTB 39.0-51.0 % Hematocrit, ACL Low 35 LAB IC 1.08-1.30 mmol/L Calcium, Ion, WB 1.11 LAB GLB 60-105 mg/dL Glucose,Whole Bld High 123 LAB LACT 0.5-2.2 mmol/L Lactate High 3.2 Performed By: #### VALLBG #### [facility] [address], [place] [address] GASA + ALL Collected: 10/10/2017 Status: F Source: [place] FOR 9:45 PM [facility] RADIANCE USE ONLY REPOSITORY TYPE CODE TESTS RESULT OUT OF REFERENCE UNITS RANGE LAB PH 7.35-7.45 pH 7.41 LAB PCO2 34-46 mm Hg pCO2 43 LAB PO2 85-95 mm Hg pO2 High 105 LAB BE mmol/L Base Excess 2 LAB HCO3 22-26 mmol/L Bicarbonate High 27 LAB CO2CT 22.0-28.0 mmol/L CO2 Content 28 LAB O2HB 95-98 % Oxyhemoglobin, Art. 96 LAB COHB 0-5.0 % Carboxyhemoglobin,A 0.9 rt LAB MHGB 0.4-1.5 % Methemoglobin 0.9 LAB TEMP C Temperature, Body 37.0 LAB PHTC 7.35-7.45 pH, Temp Corrected 7.41 LAB PCO2T 34-46 mm Hg pCO2, Temp Correct 43 LAB PO2T mm Hg pO2, Temp Corrected 105 LAB NAB 135-146 mmol/L Sodium,Whole Bld Low 134 LAB KWB 3.5-5.0 mmol/L Potassium, Whole Bld 4.1 LAB HGBB 13.0-17.0 g/dL Low Hemoglobin,Total,AC 11.4 L LAB HCTB 39.0-51.0 % Hematocrit, ACL Low 35 LAB IC 1.08-1.30 mmol/L Calcium, Ion, WB 1.11 LAB GLB 60-105 mg/dL Glucose,Whole Bld High 127 LAB LACT 0.5-2.2 mmol/L Lactate High 3.3 Performed By: #### ALLBG #### [facility] [address] [place], [place] [address] GASV + ALL Collected: 10/10/2017 Status: F Source: [place] 7:51 PM [facility] REPOSITORY TYPE CODE TESTS RESULT OUT OF REFERENCE UNITS RANGE LAB VPH 7.32-7.42 pH 7.38 LAB VPC2 42-55 mm Hg pCO2 48 LAB VPO2 35-45 mm Hg pO2 40 LAB VBE mmol/L Base Excess 2 LAB VHC3 24-28 mmol/L Bicarbonate 28 LAB VC2C 25-29 mmol/L CO2 Content 29 LAB O2HBCX 60-85 % Oxyhemoglobin, Willi. 68 LAB CO <2.0 % Carboxyhemoglobin,V 0.8 en LAB METHB 0.4-1.5 % Methemoglobin 0.7 LAB VTMP C Temperature, Body 37.0 LAB VPHTC 7.32-7.42 pH, Temp Corrected 7.38 LAB VPC2T mm Hg pCO2, Temp Correct 48 LAB VPO2T mm Hg pO2, Temp Corrected 40 LAB NAB 135-146 mmol/L Sodium,Whole Bld Low 134 LAB KWB 3.5-5.0 mmol/L Potassium, Whole Bld 4.2 LAB HGBB 13.0-17.0 g/dL Low Hemoglobin,Total,AC 11.3 L LAB HCTB 39.0-51.0 % Hematocrit, ACL Low 35 LAB IC 1.08-1.30 mmol/L Calcium, Ion, WB 1.13 LAB GLB 60-105 mg/dL Glucose,Whole Bld High 140 LAB LACT 0.5-2.2 mmol/L Lactate High 3.7 Performed By: #### VALLBG #### [facility] [address] [place], [place] [address] GASA + ALL Collected: 10/10/2017 Status: F Source: [place] FOR 7:43 PM [facility] RADIANCE USE ONLY REPOSITORY TYPE CODE TESTS RESULT OUT OF REFERENCE UNITS RANGE LAB PH 7.35-7.45 pH 7.42 LAB PCO2 34-46 mm Hg pCO2 40 LAB PO2 85-95 mm Hg pO2 High 115 LAB BE mmol/L Base Excess 2 LAB HCO3 22-26 mmol/L Bicarbonate 26 LAB CO2CT 22.0-28.0 mmol/L CO2 Content 27 LAB O2HB 95-98 % Oxyhemoglobin, Art. 97 LAB COHB 0-5.0 % Carboxyhemoglobin,A 0.7 rt LAB MHGB 0.4-1.5 % Methemoglobin 1.0 LAB TEMP C Temperature, Body 37.0 LAB PHTC 7.35-7.45 pH, Temp Corrected 7.42 LAB PCO2T 34-46 mm Hg pCO2, Temp Correct 40 LAB PO2T mm Hg pO2, Temp Corrected 115 LAB NAB 135-146 mmol/L Sodium,Whole Bld Low 134 LAB KWB 3.5-5.0 mmol/L Potassium, Whole Bld 4.2 LAB HGBB 13.0-17.0 g/dL Low Hemoglobin,Total,AC 11.6 L LAB HCTB 39.0-51.0 % Hematocrit, ACL Low 36 LAB IC 1.08-1.30 mmol/L Calcium, Ion, WB 1.14 LAB GLB 60-105 mg/dL Glucose,Whole Bld High 144 LAB LACT 0.5-2.2 mmol/L Lactate High 3.9 Performed By: #### ALLBG #### [facility] [address] [place], [place] [address] XR CHEST 1V FRONTAL Observed: 10/10/2017 Status: F Source: [place] 5:51 PM [facility] REPOSITORY * * *Final Report* * * DATE OF EXAM: Oct 10 2017 5:51PM JIX [id number] - XR CHEST 1V FRONTAL PORT / PROCEDURE REASON: Surgery follow-up * * * * Physician Interpretation * * * * EXAMINATION: CHEST RADIOGRAPH (PORTABLE SINGLE VIEW AP) Exam Date/Time: 10/10/2017 5:51 PM Indication: Surgery follow-up MQ: [id number] Comparison: Same day RESULT: See impression. IMPRESSION: Lines, tubes, and devices: Open median sternotomy. Removal of spacer and radiopaque sponges. Support devices are unremarkable Lungs and pleura: Mild increase of hazy basilar opacities with volume loss, suggesting atelectasis. Superimposed infiltrates/infection or edema cannot be entirely excluded. Tiny right apical pneumothorax is suspected on the current exam. Small layering pleural effusion with interval increase or shift is not excluded. Small layering left pleural effusion is not excluded as well. Cardiomediastinal silhouette: Stable cardiomediastinal silhouette. Other: Silver Wrapper: AMY Transcribe Date/Time: Oct 10 2017 6:50P Dictated by : ALIYA VELAZQUEZ MD This examination was interpreted and the report reviewed and electronically signed by: ALIYA VELAZQUEZ MD on Oct 10 2017 6:52PM EST [id number] GASA + ALL Collected: 10/10/2017 Status: F Source: [facility] 5:43 PM [facility] RADIANCE USE ONLY REPOSITORY TYPE CODE TESTS RESULT OUT OF REFERENCE UNITS RANGE LAB PH 7.35-7.45 pH 7.39 LAB PCO2 34-46 mm Hg pCO2 45 LAB PO2 85-95 mm Hg pO2 Low 80 LAB BE mmol/L Base Excess 2 LAB HCO3 22-26 mmol/L Bicarbonate High 27 LAB CO2CT 22.0-28.0 mmol/L CO2 Content 28 LAB O2HB 95-98 % Oxyhemoglobin, Low Art. 94 LAB COHB 0-5.0 % Carboxyhemoglobin,A 0.7 rt LAB MHGB 0.4-1.5 % Methemoglobin 1.1 LAB TEMP C Temperature, Body 37.0 LAB PHTC 7.35-7.45 pH, Temp Corrected 7.39 LAB PCO2T 34-46 mm Hg pCO2, Temp Correct 45 LAB PO2T mm Hg pO2, Temp Corrected 80 LAB NAB 135-146 mmol/L Sodium,Whole Bld 135 LAB KWB 3.5-5.0 mmol/L Potassium, Whole Bld 4.2 LAB HGBB 13.0-17.0 g/dL Low Hemoglobin,Total,AC 11.8 L LAB HCTB 39.0-51.0 % Hematocrit, ACL Low 36 LAB IC 1.08-1.30 mmol/L Calcium, Ion, WB 1.13 LAB GLB 60-105 mg/dL Glucose,Whole Bld High 126 LAB LACT 0.5-2.2 mmol/L Lactate High 2.7 Performed By: #### ALLBG #### [facility] [address] [place], [place] [address] GASV + ALL Collected: 10/10/2017 Status: F Source: [place] 4:52 PM [facility] REPOSITORY TYPE CODE TESTS RESULT OUT OF REFERENCE UNITS RANGE LAB VPH 7.32-7.42 pH 7.32 LAB VPC2 42-55 mm Hg pCO2 High 58 LAB VPO2 35-45 mm Hg pO2 42 LAB VBE mmol/L Base Excess 3 LAB VHC3 24-28 mmol/L Bicarbonate High 29 LAB VC2C 25-29 mmol/L CO2 Content High 31 LAB O2HBCX 60-85 % Oxyhemoglobin, Willi. 67 LAB CO <2.0 % Carboxyhemoglobin,V 0.8 en LAB METHB 0.4-1.5 % Methemoglobin 0.7 LAB VTMP C Temperature, Body 37.0 LAB VPHTC 7.32-7.42 pH, Temp Corrected 7.32 LAB VPC2T mm Hg pCO2, Temp Correct 58 LAB VPO2T mm Hg pO2, Temp Corrected 42 LAB NAB 135-146 mmol/L Sodium,Whole Bld 135 LAB KWB 3.5-5.0 mmol/L Potassium, Whole Bld 4.0 LAB HGBB 13.0-17.0 g/dL Low Hemoglobin,Total,AC 11.7 L LAB HCTB 39.0-51.0 % Hematocrit, ACL Low 36 LAB IC 1.08-1.30 mmol/L Calcium, Ion, WB 1.11 LAB GLB 60-105 mg/dL Glucose,Whole Bld High 118 LAB LACT 0.5-2.2 mmol/L Lactate 2.2 Performed By: #### VALLBG #### [facility] [address] [place] [address] GASA + ALL Collected: 10/10/2017 Status: F Source: [place] FOR 4:50 PM [facility] RADIANCE USE ONLY REPOSITORY TYPE CODE TESTS RESULT OUT OF REFERENCE UNITS RANGE LAB PH 7.35-7.45 pH 7.36 LAB PCO2 34-46 mm Hg pCO2 High 48 LAB PO2 85-95 mm Hg pO2 High 103 LAB BE mmol/L Base Excess 1 LAB HCO3 22-26 mmol/L Bicarbonate High 27 LAB CO2CT 22.0-28.0 mmol/L CO2 Content 28 LAB O2HB 95-98 % Oxyhemoglobin, Art. 96 LAB COHB 0-5.0 % Carboxyhemoglobin,A 0.8 rt LAB MHGB 0.4-1.5 % Methemoglobin 0.8 LAB TEMP C Temperature, Body 37.0 LAB PHTC 7.35-7.45 pH, Temp Corrected 7.36 LAB PCO2T 34-46 mm Hg pCO2, Temp High Correct 48 LAB PO2T mm Hg pO2, Temp Corrected 103 LAB NAB 135-146 mmol/L Sodium,Whole Bld 135 LAB KWB 3.5-5.0 mmol/L Potassium, Whole Bld 3.9 LAB HGBB 13.0-17.0 g/dL Low Hemoglobin,Total,AC 11.4 L LAB HCTB 39.0-51.0 % Hematocrit, ACL Low 35 LAB IC 1.08-1.30 mmol/L Calcium, Ion, WB 1.09 LAB GLB 60-105 mg/dL Glucose,Whole Bld High 113 LAB LACT 0.5-2.2 mmol/L Lactate High 2.3 Performed By: #### ALLBG #### [facility] [address] [place] [address] NURSING PROG Observed: 10/10/2017 Status: COMPLETED Source: [place] 4:41 PM [facility] REPOSITORY HNO ID: [id number] Author: Emperatriz RobertsRn) HERMINIO Maxwell Service: Cardiac Surgery Author Type: Registered Nurse Type: Nursing Progress Note Filed: 10/10/2017 4:47 PM Note Text: {Select Nursing Progress Note Template:[id number] Patient came to OR 63 from J64 with open chest. 4 sponges, 12x12s recorded in nurses note being left intentionally in 10/07/17. Four 12 x 12 removed from chest today 10/10/17. Patient went back to unit with open chest and 1 sponge 12x12 intentionally left in chest. BRIEF OP NOT Observed: 10/10/2017 Status: COMPLETED Source: [place] 4:10 PM [facility] REPOSITORY HNO ID: [id number] Author: Melody Gusman (Fel) Service: Cardiac Surgery Author Type: Fellow Type: Brief Op Note Filed: 10/10/2017 4:19 PM Note Text: CARDIOTHORACIC BRIEF OP NOTE LOG ID: [id number] SURGERY/PROCEDURE DATE: 10/10/2017 INCISION/PROCEDURE START TIME: 2:51 PM INCISION CLOSE/PROCEDURE END TIME: 4:01 PM SURGEON(S) AND CHISELER HEAD(S): Surgeon(s) and Role: * Arpit Mckenzie - Primary * Melody Gusman - Fellow - Assisting Registered Nurse Spinning Doffer: Jarret RobertsRn) HERMINIO Jaimes PROCEDURES AND ANESTHESIA: Procedure(s) and Anesthesia Type: * EXPLORATION FOR POSTOPERATIVE HEMORRHAGE/THROMBOSIS/INFECTION CHEST - General Chest wash out Chest opened with wound VAC placement (1 spunge) (Attempt closure, but fail due to desaturation.) 2 med Terry, [address], [address] 3 v-wires, 2 A-wires (CUT) ANESTHESIA: General BRIEF FINDINGS: No bleeding PREOPERATIVE DIAGNOSIS: S/p Type A dissection repair with open chest POSTOPERATIVE DIAGNOSIS: S/p Type A dissection repair with open chest ESTIMATED BLOOD LOSS: Minimal SPECIMENS: None COMPLICATIONS: None SIGNATURE: Melody Gusman MD PATIENT NAME: Jose Gustafson DATE: October 10, 2017 TIME: 4:10 PM PAGER/CONTACT #: GASA + ALL Collected: 10/10/2017 Status: F Source: [facility] 3:50 PM [facility] USE ONLY REPOSITORY TYPE CODE TESTS RESULT OUT OF REFERENCE UNITS RANGE LAB PH 7.35-7.45 pH Low 7.33 LAB PCO2 34-46 mm Hg pCO2 High 53 LAB PO2 85-95 mm Hg pO2 Low 71 LAB BE mmol/L Base Excess 1 LAB HCO3 22-26 mmol/L Bicarbonate High 27 LAB CO2CT 22.0-28.0 mmol/L CO2 Content High 29 LAB O2HB 95-98 % Oxyhemoglobin, Low Art. 91 LAB COHB 0-5.0 % Carboxyhemoglobin,A 0.9 rt LAB MHGB 0.4-1.5 % Methemoglobin Low 0.1 LAB TEMP C Temperature, Body 37.0 LAB PHTC 7.35-7.45 pH, Temp Low Corrected 7.33 LAB PCO2T 34-46 mm Hg pCO2, Temp High Correct 53 LAB PO2T mm Hg pO2, Temp Corrected 71 LAB NAB 135-146 mmol/L Sodium,Whole Bld 136 LAB KWB 3.5-5.0 mmol/L Potassium, Whole Bld 4.1 LAB HGBB 13.0-17.0 g/dL Low Hemoglobin,Total,AC 11.6 L LAB HCTB 39.0-51.0 % Hematocrit, ACL Low 36 LAB IC 1.08-1.30 mmol/L Calcium, Ion, WB 1.17 LAB GLB 60-105 mg/dL Glucose,Whole Bld High 127 LAB LACT 0.5-2.2 mmol/L Lactate High 2.6 Performed By: #### ALLBG #### [facility] [address] [place], [place] [address] GASA + ALL Collected: 10/10/2017 Status: F Source: [place] FOR 3:43 PM [facility] RADIANCE USE ONLY REPOSITORY TYPE CODE TESTS RESULT OUT OF REFERENCE UNITS RANGE LAB PH 7.35-7.45 pH Low 7.28 LAB PCO2 34-46 mm Hg pCO2 High 62 LAB PO2 85-95 mm Hg pO2 Low 68 LAB BE mmol/L Base Excess 1 LAB HCO3 22-26 mmol/L Bicarbonate High 28 LAB CO2CT 22.0-28.0 mmol/L CO2 Content High 30 LAB O2HB 95-98 % Oxyhemoglobin, Low Art. 88 LAB COHB 0-5.0 % Carboxyhemoglobin, 0.7 Art LAB MHGB 0.4-1.5 % Methemoglobin 0.7 LAB TEMP C Temperature, Body 37.0 LAB PHTC 7.35-7.45 pH, Temp Low Corrected 7.28 LAB PCO2T 34-46 mm Hg pCO2, Temp High Correct 62 LAB PO2T mm Hg pO2, Temp Corrected 68 LAB NAB 135-146 mmol/L Sodium,Whole Bld 135 LAB KWB 3.5-5.0 mmol/L Potassium, Whole Bld 4.0 LAB HGBB 13.0-17.0 g/dL Low Hemoglobin,Total,A 11.6 CL LAB HCTB 39.0-51.0 % Hematocrit, Low ACL 36 LAB IC 1.08-1.30 mmol/L Calcium, Ion, WB 1.16 LAB GLB 60-105 mg/dL Glucose,Whole High Bld 135 LAB LACT 0.5-2.2 mmol/L Lactate High 2.5 LAB ABGCOM Blood Gas Comm, Art Urgent value Result Comment: PCO2 LAB ACBWHO Notified SENT TO Whom, Art OR63 MaryHomarCARLOS LAB ACBDTE Notify [id number] Date, Art LAB ACBTME Notify [id number] Time, Art Performed By: #### ALLBG #### [facility] [address] [place], [place] [address] Observed: 10/10/2017 Status: F Source: [place] TISSUE CULT / STAIN 2:55 PM [facility] REPOSITORY Sp. Request/Comment: - Specimen collected in surgery. Smear Result - No organisms seen No Polymorphonuclear leukocytes Many Red Blood Cells Culture Result - No growth 3 days Performed By: #### TISCUL #### [place] [address] Observed: 10/10/2017 Status: F Source: [place] ANAEROBE CULTURE 2:55 PM [facility] REPOSITORY Culture Result - Negative for anaerobes. Performed By: #### ANACUL #### [place] [address] Observed: 10/10/2017 Status: F Source: [place] FUNGAL CULT / SMEAR 2:55 PM [facility] REPOSITORY Smear Result - No fungus seen. Culture Result - No Fungus isolated after 33 days Performed By: #### FCULSM #### [place] [address] Observed: 10/10/2017 Status: F Source: [place] AFB CULT AND STAIN 2:55 PM [facility] REPOSITORY Smear Result - No acid fast bacilli seen by fluorochrome stain Culture Result - No Acid Fast Bacilli isolated after 47 days Performed By: #### AFC #### [place] [address] GASA + ALL Collected: 10/10/2017 Status: F Source: [place] FOR 2:44 PM [facility] RADIANCE USE ONLY REPOSITORY TYPE CODE TESTS RESULT OUT OF REFERENCE UNITS RANGE LAB PH 7.35-7.45 pH 7.38 LAB PCO2 34-46 mm Hg pCO2 45 LAB PO2 85-95 mm Hg pO2 High 219 LAB BE mmol/L Base Excess 1 LAB HCO3 22-26 mmol/L Bicarbonate 26 LAB CO2CT 22.0-28.0 mmol/L CO2 Content 27 LAB O2HB 95-98 % Oxyhemoglobin, Art. 97 LAB COHB 0-5.0 % Carboxyhemoglobin, 0.5 Art LAB MHGB 0.4-1.5 % Methemoglobin 1.3 LAB TEMP C Temperature, Body 37.0 LAB PHTC 7.35-7.45 pH, Temp Corrected 7.38 LAB PCO2T 34-46 mm Hg pCO2, Temp Correct 45 LAB PO2T mm Hg pO2, Temp Corrected 219 LAB NAB 135-146 mmol/L Sodium,Whole Bld 136 LAB KWB 3.5-5.0 mmol/L Potassium, Whole Bld 4.3 LAB HGBB 13.0-17.0 g/dL Low Hemoglobin,Total,A 12.0 CL LAB HCTB 39.0-51.0 % Hematocrit, Low ACL 37 LAB IC 1.08-1.30 mmol/L Calcium, Ion, WB 1.15 LAB GLB 60-105 mg/dL Glucose,Whole High Bld 120 LAB LACT 0.5-2.2 mmol/L Lactate High 3.1 LAB ACBDTE Notify Date, Art [id number] LAB ACBTME Notify Time, Art Performed By: #### ALLBG #### [facility] [address] [place], [place] [address] GASV + ALL Collected: 10/10/2017 Status: F Source: [place] 2:43 PM [facility] [place] REPOSITORY TYPE CODE TESTS RESULT OUT OF REFERENCE UNITS RANGE LAB VPH 7.32-7.42 pH 7.34 LAB VPC2 42-55 mm Hg pCO2 53 LAB VPO2 35-45 mm Hg pO2 40 LAB VBE mmol/L Base Excess 2 LAB VHC3 24-28 mmol/L Bicarbonate 28 LAB VC2C 25-29 mmol/L CO2 Content High 30 LAB O2HBCX 60-85 % Oxyhemoglobin, Willi. 66 LAB CO <2.0 % Carboxyhemoglobin, 1.1 Willi LAB METHB 0.4-1.5 % Methemoglobin 0.6 LAB VTMP C Temperature, Body 37.0 LAB VPHTC 7.32-7.42 pH, Temp Corrected 7.34 LAB VPC2T mm Hg pCO2, Temp Correct 53 LAB VPO2T mm Hg pO2, Temp Corrected 40 LAB NAB 135-146 mmol/L Sodium,Whole Bld 136 LAB KWB 3.5-5.0 mmol/L Potassium, Whole Bld 4.3 LAB HGBB 13.0-17.0 g/dL Low Hemoglobin,Total,A 11.9 CL LAB HCTB 39.0-51.0 % Hematocrit, Low ACL 37 LAB IC 1.08-1.30 mmol/L Calcium, Ion, WB 1.16 LAB GLB 60-105 mg/dL Glucose,Whole High Bld 119 LAB LACT 0.5-2.2 mmol/L Lactate High 2.9 LAB VCBDTE Notify Date, Willi [id number] LAB VCBTME Notify Time, Willi Performed By: #### VALLBG #### [facility] [address] [place], [place] [address] GASV + ALL Collected: 10/10/2017 Status: F Source: [place] 12:31 PM [facility] [place] REPOSITORY TYPE CODE TESTS RESULT OUT OF REFERENCE UNITS RANGE LAB VPH 7.32-7.42 pH 7.36 LAB VPC2 42-55 mm Hg pCO2 53 LAB VPO2 35-45 mm Hg pO2 36 LAB VBE mmol/L Base Excess 3 LAB VHC3 24-28 mmol/L Bicarbonate High 29 LAB VC2C 25-29 mmol/L CO2 Content High 31 LAB O2HBCX 60-85 % Oxyhemoglobin, Low Willi. 59 LAB CO <2.0 % Carboxyhemoglobin,V 0.8 en LAB METHB 0.4-1.5 % Methemoglobin 0.7 LAB VTMP C Temperature, Body 37.0 LAB VPHTC 7.32-7.42 pH, Temp Corrected 7.36 LAB VPC2T mm Hg pCO2, Temp Correct 53 LAB VPO2T mm Hg pO2, Temp Corrected 36 LAB NAB 135-146 mmol/L Sodium,Whole Bld 136 LAB KWB 3.5-5.0 mmol/L Potassium, Whole Bld 4.2 LAB HGBB 13.0-17.0 g/dL Low Hemoglobin,Total,AC 11.6 L LAB HCTB 39.0-51.0 % Hematocrit, ACL Low 36 LAB IC 1.08-1.30 mmol/L Calcium, Ion, WB 1.13 LAB GLB 60-105 mg/dL Glucose,Whole Bld High 115 LAB LACT 0.5-2.2 mmol/L Lactate High 2.8 Performed By: #### VALLBG #### [facility] [address] [place], [place] [address] GASA + ALL Collected: 10/10/2017 Status: F Source: [facility] 12:24 PM [facility] RADIANCE USE ONLY REPOSITORY TYPE CODE TESTS RESULT OUT OF REFERENCE UNITS RANGE LAB PH 7.35-7.45 pH 7.41 LAB PCO2 34-46 mm Hg pCO2 42 LAB PO2 85-95 mm Hg pO2 High 101 LAB BE mmol/L Base Excess 2 LAB HCO3 22-26 mmol/L Bicarbonate 26 LAB CO2CT 22.0-28.0 mmol/L CO2 Content 27 LAB O2HB 95-98 % Oxyhemoglobin, Art. 97 LAB COHB 0-5.0 % Carboxyhemoglobin,A 1.1 rt LAB MHGB 0.4-1.5 % Methemoglobin Low 0.0 LAB TEMP C Temperature, Body 37.0 LAB PHTC 7.35-7.45 pH, Temp Corrected 7.41 LAB PCO2T 34-46 mm Hg pCO2, Temp Correct 42 LAB PO2T mm Hg pO2, Temp Corrected 101 LAB NAB 135-146 mmol/L Sodium,Whole Bld 136 LAB KWB 3.5-5.0 mmol/L Potassium, Whole Bld 4.2 LAB HGBB 13.0-17.0 g/dL Low Hemoglobin,Total,AC 11.5 L LAB HCTB 39.0-51.0 % Hematocrit, ACL Low 36 LAB IC 1.08-1.30 mmol/L Calcium, Ion, WB 1.14 LAB GLB 60-105 mg/dL Glucose,Whole Bld High 115 LAB LACT 0.5-2.2 mmol/L Lactate High 2.9 Performed By: #### ALLBG #### [facility] [address] [place], [place] [address] GASV + ALL Collected: 10/10/2017 Status: F Source: [place] 10:08 AM [facility] REPOSITORY TYPE CODE TESTS RESULT OUT OF REFERENCE UNITS RANGE LAB VPH 7.32-7.42 pH 7.36 LAB VPC2 42-55 mm Hg pCO2 52 LAB VPO2 35-45 mm Hg pO2 35 LAB VBE mmol/L Base Excess 3 LAB VHC3 24-28 mmol/L Bicarbonate High 29 LAB VC2C 25-29 mmol/L CO2 Content High 30 LAB O2HBCX 60-85 % Oxyhemoglobin, Low Willi. 57 LAB CO <2.0 % Carboxyhemoglobin, 0.5 Willi LAB METHB 0.4-1.5 % Methemoglobin 1.1 LAB VTMP C Temperature, Body 37.0 LAB VPHTC 7.32-7.42 pH, Temp Corrected 7.36 LAB VPC2T mm Hg pCO2, Temp Correct 52 LAB VPO2T mm Hg pO2, Temp Corrected 35 LAB NAB 135-146 mmol/L Sodium,Whole Bld 137 LAB KWB 3.5-5.0 mmol/L Potassium, Whole Bld 4.2 LAB HGBB 13.0-17.0 g/dL Low Hemoglobin,Total,A 11.8 CL LAB HCTB 39.0-51.0 % Hematocrit, Low ACL 37 LAB IC 1.08-1.30 mmol/L Calcium, Ion, WB 1.16 LAB GLB 60-105 mg/dL Glucose,Whole High Bld 121 LAB LACT 0.5-2.2 mmol/L Lactate High 3.0 LAB VCBDTE Notify Date, Willi [id number] LAB VCBTME Notify Time, Willi Performed By: #### VALLBG #### [facility] [address] [place], [place] [address] GASA + ALL Collected: 10/10/2017 Status: F Source: [place] FOR 10:03 AM [facility] USE ONLY REPOSITORY TYPE CODE TESTS RESULT OUT OF REFERENCE UNITS RANGE LAB PH 7.35-7.45 pH 7.40 LAB PCO2 34-46 mm Hg pCO2 44 LAB PO2 85-95 mm Hg pO2 Low 80 LAB BE mmol/L Base Excess 2 LAB HCO3 22-26 mmol/L Bicarbonate High 27 LAB CO2CT 22.0-28.0 mmol/L CO2 Content 28 LAB O2HB 95-98 % Oxyhemoglobin, Low Art. 94 LAB COHB 0-5.0 % Carboxyhemoglobin, 0.5 Art LAB MHGB 0.4-1.5 % Methemoglobin 1.0 LAB TEMP C Temperature, Body 37.0 LAB PHTC 7.35-7.45 pH, Temp Corrected 7.40 LAB PCO2T 34-46 mm Hg pCO2, Temp Correct 44 LAB PO2T mm Hg pO2, Temp Corrected 80 LAB NAB 135-146 mmol/L Sodium,Whole Bld 136 LAB KWB 3.5-5.0 mmol/L Potassium, Whole Bld 4.2 LAB HGBB 13.0-17.0 g/dL Low Hemoglobin,Total,A 12.0 CL LAB HCTB 39.0-51.0 % Hematocrit, Low ACL 37 LAB IC 1.08-1.30 mmol/L Calcium, Ion, WB 1.16 LAB GLB 60-105 mg/dL Glucose,Whole High Bld 125 LAB LACT 0.5-2.2 mmol/L Lactate High 3.1 LAB ACBDTE Notify Date, Art [id number] LAB ACBTME Notify Time, Art Performed By: #### ALLBG #### [facility] [address] [place], [place] [address] CONSULT Observed: 10/10/2017 Status: COMPLETED Source: [place] 9:25 AM [facility] REPOSITORY [facility] ID: [id number] Author: Randee Lin) Maude Service: Wound Care Team Author Type: Nurse Specialist Type: Consults Filed: 10/10/2017 9:46 AM Note Text: A/P: Right lower lip: device related mucus membrane pressure injury. Area is light purple, intact and nonblanchable. Edges are intact. Surrounding skin is clear and intact. Etiology is likely pressure from the oral gastric tube(OGT) that was in place in the OR on 10/07/2017 for 10 hours and remains in-place now. The shape correlates with the current OGT . Unable to evaluate the posterior surface as the patient has an open chest and is going to the OR today. 1.) Right lower lip: device related mucus membrane pressure injury, acquired Recommendations: - Mouth moisturizer to lips BID. - Apply Critic-aid Clear to perianal area and bilateral ischium TID and as needed. - Maintain Oleg-Sundar heel protectors to bilateral lower extremities, to off-load heels, while in bed. - Maintain Air Turn AND Position (TAP) System. Turn patient every two hours using the TAP wedges avoiding pressure over the coccyx/sacral region. - Sween cream to bilateral feet BID. - Maintain low air-loss bed. - Nutrition consult advised for optimized wound healing. - Wound care will sign off on patient, reconsult Wound Care if wounds worsens or additional recommendations needed. 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 WCCT consulted for Type A dissection. 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 On 10/08/2017 underwent Total arch replacement with FET under DHCA. OR course complicated by transient or mild hypotension and Coagulopathy/bleeding. Arrived to CVICU intubated, and sedated, on iVeletri, open chest, maintain overnight, plan to go back to OR later today for possible closure. Coagulopathy/bleeding intraop, transfused multiple blood products in OR, transfuse postop as needed. Hypotensive intraop, arrived on 4mcg Levo and 0.02 Vaso. The patient continued to bleed overnight and went back to the OR the following morning for chest exploration / Evacuation of hematoma / Open large amount of clots were removed but no active bleeding and wound VAC placed. Remains in the ICU, intubated with mechanical ventilation. Current interventions in use: TAP: Yes. Turning wedges/positioner: Yes. Offloading boots: Yes. Head cushion/positioner: Yes. Seating cushion: No Incontinence management: Yes. Current Bed: low air-loss Barriers to healing: Diabetic: No PAD/PVD/Insufficiency: No Immunosuppression: No Sickle Cell Disease: No Chemotherapy: No Radiation Therapy: No Spinal Cord Disease: No Mobility: difficult to assess Nicotine: Tobacco Use: Types: Cigars Nutrition Consult: No Obesity: No Current Antibiotic Coverage: Yes. Warfarin/Heparin: No Steroids: Yes. Inotropes/Pressors: Yes. PHYSICAL EXAM: BP 152/83 Pulse 100 Temp (Src) 100.8 (Core) Resp 20 Ht 6' 0 (1.83m) Wt 187 lb 6.3 oz (85.0kg) SpO2 94% BMI 25.41 kg/(m2). PRESSURE ULCERS Pressure Injury 10/08/17 1121 Lip - Lower (Active) Main Joaquin Units Operating Room 10/10/2017 9:00 AM Stage Injury Mucous Membrane 10/10/2017 9:00 AM Job Change Crew Member Related Pressure Injury Yes 10/10/2017 9:00 AM Dressing Status None: Open to Air 10/10/2017 9:00 AM Frequency of Dressing Change Twice a Day 10/10/2017 9:00 AM Dressing Change Due 10/10/17 10/10/2017 9:00 AM Dressing/Treatment Type Moisturizing Cream 10/10/2017 9:00 AM Drainage Description None 10/10/2017 9:00 AM Drainage Amount None 10/10/2017 9:00 AM Odor No 10/10/2017 9:00 AM Wound Surface Color Light Purple 10/10/2017 9:00 AM Percentage of Each Color 100 10/10/2017 9:00 AM Edges Intact;Irregular 10/10/2017 9:00 AM Surrounding Skin Intact 10/10/2017 9:00 AM Length in Cm - Weekly 0.5 Cm 10/10/2017 9:00 AM Width in Cm - Weekly 1 Cm 10/10/2017 9:00 AM Depth in Cm - Weekly 0 Cm 10/10/2017 9:00 AM Undermining Length (Cm) - Weekly 0 Cm 10/10/2017 9:00 AM Tunnel Length (cm) - Weekly 0 Cm 10/10/2017 9:00 AM SURGICAL INCISIONS Surgical Incision 10/07/17 Chest - Midsternal (Active) Dressing Status Initial Post-Op Dressing Intact 10/10/2017 7:30 AM Frequency of Dressing Change Every Other Day 10/08/2017 7:30 PM Dressing /Treatment Type Negative Pressure Wound Therapy 10/10/2017 7:30 AM Incision Closures None 10/10/2017 7:30 AM Drainage Description Serosanguineous 10/10/2017 7:30 AM Drainage Amount Medium 10/10/2017 7:30 AM Edges Intact 10/10/2017 7:30 AM Hematoma No 10/10/2017 7:30 AM SURGICAL WOUNDS PMHx: PAST MEDICAL HISTORY Diagnosis Date - Acute kidney injury (HCC) 10/09/2017 - History of kidney stones - Hypertension - Unspecified asthma(493.90) PSxHx: PAST SURGICAL HISTORY Procedure Laterality Date - COLONOSCOP W/ OR W/O BRSH SPEC 08/23/2014 Colonoscopy - LITHOTRIPSY EXTRACORP SHOCK WAVE(ESWL) 18 months ago - PAST SURGICAL HISTORY OF 2012 left ankle ORIF- hardware - PAST SURGICAL HISTORY OF 2012 ORIF left wrist - hardware - REMOVAL OF HEEL SPUR 2002, 2004 Bilateral - REPAIR ING HERNIA,5+Y/O,REDUCIBL Hernia repair, inguinal, as infant SOCHx: Social History Marital status: Spouse name: Years of education: Number of children: Social History Main Topics Smoking status: Light Tobacco Smoker Packs/day: 0.00 Years: 0.00 Types: Cigars Smokeless status: Never Used Alcohol use: Yes 6.0 oz/week 4 Cans of Beer (12oz) per week Drug use: No Sexual activity: Yes Partners with: Female HOSPITAL MEDICATIONS: Current hospital medications: furosemide 500 mg in empty bottle 50 mL IV infusion (LASIX) 5 mg/hr INTRAVENOUS CONTINUOUS PHENYLephrine 80 mg in D5W 250 mL (NEOSYNEPHRINE) 25-200 mcg/min INTRAVENOUS CONTINUOUS Chlorhexidine Gluconate 0.12 % 15 mL (PERIDEX) 15 mL ORAL q [address] 20 mg tab(s) (PROTONIX) 20 mg ORAL DAILY (6 AM) pantoprazole 20 mg CUP (PROTONIX) 20 mg ORAL/FEEDING TUBE DAILY (6 AM) senna-docusate 8.6-50 mg 1 tablet (SENNA-S) 1 tablet ORAL BID bisacodyl 10 mg suppository (DULCOLAX) 10 mg RECTAL DAILY PRN ondansetron (PF) 4 mg injection (ZOFRAN) 4 mg INTRAVENOUS q 6 H PRN potassium chloride iv piggyback 10 mEq/100mL 10 mEq INTRAVENOUS PRN potassium chloride iv piggyback 20 mEq/50 mL 20 mEq INTRAVENOUS PRN potassium chloride 40-120 mEq oral powder (KLOR-CON) 40-120 mEq ORAL/FEEDING TUBE PRN 0.9% NaCl 3-5 mL 3-5 mL INTRAVENOUS q 12 H 0.9% NaCl 10 mL 10 mL INTRAVENOUS q 12 H insulin regular human iv bolus 2-10 Units 2-10 Units INTRAVENOUS PRN insulin regular 250 units in NaCl 0.9% 250 mL iv infusion - HVI CVICU NOMOGRAM 0.5-40 Units/hr INTRAVENOUS CONTINUOUS dextrose 50% in water 25 mL syringe 12.5 g INTRAVENOUS PRN dextrose 5% in NaCl 0.2% iv infusion 5 mL/hr INTRAVENOUS CONTINUOUS insulin glargine 0-40 Units pen (long acting) (LANTUS SOLOSTAR, BASAGLAR) 0-40 Units SUBCUTANEOUS As Directed nitroglycerin 50 mg in D5W 250 mL 5-200 mcg/min INTRAVENOUS CONTINUOUS nitroglycerin injection 100 mcg injection syringe 100 mcg INTRAVENOUS PRN PHENYLephrine 0.1 mg injection 100 mcg INTRAVENOUS PRN fentaNYL [employer]REIGHT [employer] PASSENGER AGENT 20 mcg/mL in NaCl 0.9% 100 mL INTRAVENOUS CONTINUOUS naloxone 0.04 mg injection (NARCAN) 0.04 mg INTRAVENOUS PRN lidocaine 5 % 1 Patch (LIDODERM) 1 Patch TRANSDERMAL DAILY lidocaine patch - REMOVE OTHER AT BEDTIME lidocaine - VERIFY PATCH OTHER q 8 H fentaNYL 50 mcg/mL 25-75 mcg injection (SUBLIMAZE) 25-75 mcg INTRAVENOUS q 1 H PRN acetaminophen 1,000 mg tab(s) (TYLENOL) 1,000 mg ORAL q 6 H acetaminophen 1,000 mg CUP (TYLENOL) 1,000 mg NASOGASTRIC q 6 H [START ON 10/12/2017] acetaminophen 650 mg tab(s) (TYLENOL) 650 mg ORAL/FEEDING TUBE q 4 H PRN oxyCODONE IR 5-10 mg tab(s) (ROXICODONE) 5-10 mg ORAL/FEEDING TUBE q 6 H PRN aspirin 162 mg chewable tab(s) 162 mg ORAL/FEEDING TUBE DAILY propofol infusion (DIPRIVAN) 10-50 mcg/kg/min (Order-Specific) INTRAVENOUS CONTINUOUS propofol iv bolus 10-50 mg (DIPRIVAN) 10-50 mg INTRAVENOUS q 1 H PRN vasopressin 20 units in D5W 100 mL (VASOSTRICT) 0.01-0.1 Units/min INTRAVENOUS CONTINUOUS NORepinephrine 4 mg in D5W 250 mL (LEVOPHED) 0.6-20 mcg/min INTRAVENOUS CONTINUOUS fentaNYL iv infusion 20 mcg/mL in NaCl 0.9% 100 mL 25-250 mcg/hr INTRAVENOUS CONTINUOUS ciprofloxacin 400 mg in D5W 200 mL (CIPRO) 400 mg INTRAVENOUS q 12 HR vancomycin dosing and monitoring per pharmacy OTHER As Directed EPINEPHrine iv infusion 4 mg in D5W 250 mL 0.5-4 mcg/min INTRAVENOUS CONTINUOUS albuterol 2.5 mg /3 mL (0.083 %) 2.5 mg (PROVENTIL) 2.5 mg INHALATION QID budesonide 1 mg/2 mL 1 mg nebulizer suspension (PULMICORT) 1 mg INHALATION BID amiodarone 360 mg in D5W 200 mL (NEXTERONE) 0.5-1 mg/min INTRAVENOUS CONTINUOUS ALLERGIES: ALLERGIES Allergen Reactions - Cats - Grass Pollen Itching Labs: WBC Date Value Ref Range Status 10/10/2017 13.13 (H) 3.70 - 11.00 k/uL Final Hemoglobin Date Value Ref Range Status 10/10/2017 10.9 (L) 13.0 - 17.0 g/dL Final Hematocrit Date Value Ref Range Status 10/10/2017 31.8 (L) 39.0 - 51.0 % Final Platelet Count Date Value Ref Range Status 10/10/2017 96 (L) 150 - 400 k/uL Final Comment: Result checked and verified No clot detected. Hemoglobin A1C (%) Date Value 10/07/2017 4.8 Glucose Date Value Ref Range Status 10/10/2017 131 (H) 74 - 99 mg/dL Final Comment: The [place] Diabetes Association (ADA) provides guidance for cutoff values for fasting glucose and random glucose. The ADA defines fasting as no caloric intake for at least 8 hours. Fasting plasma glucose results between 100 to 125 mg/dL indicate increased risk for diabetes (prediabetes). Fasting plasma glucose results greater than or equal to 126 mg/dL meet the criteria for diagnosis of diabetes. In the absence of unequivocal hyperglycemia, results should be confirmed by repeat testing. In a patient with classic symptoms of hyperglycemia or hyperglycemic crisis, random plasma glucose results greater than or equal to 200 mg/dL meet the criteria for diagnosis of diabetes. Reference: Standards of Medical Care in Diabetes 2016, [place] [employer] Association. Diabetes Care. 2016.39(Suppl 1). Protein, Total Date Value Ref Range Status 10/10/2017 4.6 (L) 6.3 - 8.0 g/dL Final Albumin Date Value Ref Range Status 10/10/2017 2.8 (L) 3.9 - 4.9 g/dL Final Imaging: none Photography: A photo was taken of the patient's wound(s). Photos can be found under the Get Images tab on [employer]. The purpose of the photo(s) is to optimize the patient's medical care and allow a visual aid to their wound evaluation and progress. ? Photo was taken of: lower lip Verbal consent was obtained: No Explain: patient unable to consent ? Photos are uploaded per the wound palliative care physician (WCC) and may not be immediately available for viewing. Contact [facility] with questions Randee Santoro, MSN, ROVING HAULER, CWOCN PROGRESS Observed: 10/10/2017 Status: COMPLETED Source: [place] 9:06 AM [facility] REPOSITORY [facility] ID: [id number] Author: Jose David Mackay Service: Critical Care Author Type: Physician Type: Progress Notes Filed: 10/13/2017 12:03 PM Note Text: [facility] CV[facility] Note Name: Jose Gustafson COORDINATION OF CARE NOTE: Indication for Surgery: Spontaneous Rupture of Aorta LVEF: Normal RVF: Normal Important/Relevant PMH/PSH: HTN, asthma, hx kidney stones Preoperative Hospital Course (narrative): 52 yo M with PMH HTN, Asthma, and hx of kidney stones who is transferred to [facility] for 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 Procedure/Surgeries: 10/08/2017 Total arch replacement with FET under [facility] 10/08/2017 Chest exploration / Evacuation of hematoma / Open chest with wound vac Airway Difficulty: Grade I - No special instrumentation OR Course: Transient or mild hypotension and Coagulopathy/bleeding Pacing wires: Yes: Ventricular: When discontinuing pacing wires: Cut all pacing wires Postoperative Course/General Impression: (narrative or log of major events with date of onset): Arrived to CVICU intubated, and sedated, on iVeletri, open chest, maintain overnight, plan to go back to OR later today for possible closure. Coagulopathy/bleeding intraop, transfused multiple blood products in OR, transfuse postop as needed. Hypotensive intraop, arrived on 4mcg Levo and 0.02 Vaso. The patient continued to bleed overnight and went back to the OR the following morning and large amount of clots were removed but no active bleeding. Issues to communicate at signout: 10/10/2017 OPEN CHEST - s/p chest exploration Volume resuscitation, monitor lactate Titrate NE/Vaso for MAP > 65 Diuresis Possible chest closure today OTHER PROBLEMS I MANAGED DURING THIS ENCOUNTER: Problem Dissection of Thoracic Aorta (Hcc) Patient with chest pain at OSH CT chest showing type a dissection 10/08/2017 s/p Total arch replacement with FET under [facility] A/P: Arrived to CVICU with open chest due to bleeding intraop. S/p chest washout this am. 10/10 Chest open, possible washout / closure today Hypoxia 10/08/2017 PEEP therapy, wean FiO2. 10/09 On vent with 50% FIO2 - cont with open chest 10/10 40%, +10 PEEP - cont vent with open chest Postoperative Hypotension A/P: Arrived to CVICU on 4mcg Levo and 0.02 Vaso, wean as able to goal MAP 65-75. 10/09 Increased support with epi, levo, vaso, phenyl -wean as able for MAP > 65 10/10 Increased support with epi, levo, vaso, phenyl -wean as able for MAP > 65 Pain, Postoperative, Acute A/P: Fentanyl infusion while intubated with open chest for pain control. - adequate Lactic Acid Acidosis Volume resuscitation. 10/09 Lactate mildly elevated, following - has been adeq vol resuscitated - wean pressors as tolerated 10/10 Remains borderline, KUB non-specific, abd soft and nontender, nondistended. Wean drips as able Cardiac Insufficiency (Hcc) 10/10 Cont with marginal CO / CI on epi, levo vaso AND juana. SVO2 in mid 50's Cont to support and wean drips as tolerated Acute Kidney Injury (Hcc) Cr elevated from baseline of .89 to 2.16 now 2.18 Will diurese as tolerated due to significant fluid overload Follow Cr and lytes PHYSICAL EXAM AND PERTINENT DATA: Neuro: Follows commands and Sedation Pain Control : Is pain control adequate: Yes Cardiovascular: Rhythm: paced and Rate:paced HR: 100 SpO2: 95 Temperature: afebrile MAP: 74 mmHg CVP: 16 mmHg PAP: 29/17 mmHg Cardiac Index: 2.1 L/min/m2 Recent Labs 10/09/17 0003 10/07/17 1415 TROPT 1.770* <0.010 Pulmonary: Clear to auscultation and Breath sounds equal Ventilator: Intubated: PCV; FiO2: 40; PEEP: 10 cmH2O; Not ready for weaning; HOB elevated 40 degrees: Yes; Oral care with chlorhexidine: Yes; Was sedation turned off? Yes Recent Labs 10/10/17 0746 10/10/17 0523 10/10/17 0409 PH 7.43 7.42 7.43 PO2 94 79* 167* PCO2 41 43 40 HCO3 27* 27* 26 O2HB 96 94* 97 CXR Findings: Increased Vascular Markings Bilateral, CXR personally viewed and interpreted by ICU staff Physician and open chest Gastrointestinal: Abdominal: Soft and Non-tender Recent Labs 10/10/17 0200 10/09/17 0003 10/08/17 0105 10/07/17 1415 TPROT 4.6* 4.9* 4.3* 5.0* ALB 2.8* 2.9* 2.6* 3.0* MG -- -- -- 2.0 CA 7.6* 8.8 9.8 7.7* ALKPHOS 31* 30* 28* 54 TBILI 1.2 1.5* 1.5* 1.1 AST 358* 160* 205* 11* ALT 309* 123* 178* 14 Heme: Recent Labs 10/10/17 0200 10/09/17 0740 10/09/17 0003 10/08/17 1710 10/08/17 1135 HB 10.9* 10.3* 9.8* 9.8* 9.2* HCT 31.8* 29.7* 28.5* 27.6* 25.9* PLT 96* 99* 147* 188 158 PTSEC -- 12.5 -- 12.1 12.2 INR -- 1.2 -- 1.2 1.2 APTT -- 39.2* -- 31.3 32.3 Recent Labs 10/10/17 0200 10/09/17 0740 10/09/17 0003 WBC 13.13* 11.20* 10.38 Renal: Stable Recent Labs 10/10/17 0746 10/10/17 0526 10/10/17 0412 10/10/17 0200 10/09/17 0003 10/08/17 0105 10/07/17 1415 NA -- -- -- -- 139 -- 143 -- 152* -- 138 K -- -- -- -- 4.2 -- 4.7 -- 3.4* -- 4.6 CHLOR -- -- -- -- 100 -- 100 -- 104 -- 105 CO2 30* 30* 30* < > 26 < > 26 < > 30 < > 21* CREAT -- -- -- -- 2.18* -- 2.16* -- 1.52* -- 1.22 BUN -- -- -- -- 27* -- 21 -- 13 -- 14 GLUC -- -- -- -- 131* -- 191* -- 82 -- 153* P -- -- -- -- -- -- -- -- -- -- 1.8* MG -- -- -- -- -- -- -- -- -- -- 2.0 CA -- -- -- -- 7.6* -- 8.8 -- 9.8 -- 7.7* < > = values in this interval not displayed. DAILY CVICU CHECKLIST VTE Prophylaxis: Pharmacologic No - because bleeding risk VTE Prophylaxis: Mechanical: Yes Line infection prevention: Can CVC, PAC or arterial line be removed: No Continued need for urinary catheter: Yes - clinical indication: Patient post major surgery requiring fluid balance and input and output measurement. This patient has a high probability of sudden, clinically significant deterioration, which requires the highest level of preparedness to intervene urgently. I participated in the decision making and personally managed or directed the management of the following life and organ supporting interventions that required my frequent assessment to treat or prevent imminent deterioration of: Cardiac Insufficiency, Hypotension and relative bradycardia that I treated with inotropes, vasopressors and pacing Respiratory failure treated with mechanical ventil;ation CASSIUS treated with diuretics and follow lytes Care pklan with ICU and surgical teams I personally spent 40 minutes of critical care time treating the patient. Time devoted to any procedures I billed separately is not included. SIGNATURE: JOSE DAVID AMCKAY MD DATE of SERVICE: 10/10/2017 TIME of SERVICE: 9:06 AM CASSIUS likely due to hemodynamic instability and acute respiratory failure with hypoxia GASA + ALL Collected: 10/10/2017 Status: F Source: [place] FOR 7:46 AM [facility] USE ONLY REPOSITORY TYPE CODE TESTS RESULT OUT OF REFERENCE UNITS RANGE LAB PH 7.35-7.45 pH 7.43 LAB PCO2 34-46 mm Hg pCO2 41 LAB PO2 85-95 mm Hg pO2 94 LAB BE mmol/L Base Excess 3 LAB HCO3 22-26 mmol/L Bicarbonate High 27 LAB CO2CT 22.0-28.0 mmol/L CO2 Content 28 LAB O2HB 95-98 % Oxyhemoglobin, Art. 96 LAB COHB 0-5.0 % Carboxyhemoglobin, 0.6 Art LAB MHGB 0.4-1.5 % Methemoglobin 1.0 LAB TEMP C Temperature, Body 37.0 LAB PHTC 7.35-7.45 pH, Temp Corrected 7.43 LAB PCO2T 34-46 mm Hg pCO2, Temp Correct 41 LAB PO2T mm Hg pO2, Temp Corrected 94 LAB NAB 135-146 mmol/L Sodium,Whole Bld 135 LAB KWB 3.5-5.0 mmol/L Potassium, Whole Bld 4.0 LAB HGBB 13.0-17.0 g/dL Low Hemoglobin,Total,A 11.6 CL LAB HCTB 39.0-51.0 % Hematocrit, Low ACL 36 LAB IC 1.08-1.30 mmol/L Calcium, Ion, WB 1.16 LAB GLB 60-105 mg/dL Glucose,Whole High Bld 130 LAB LACT 0.5-2.2 mmol/L Lactate High 2.8 LAB ACBDTE Notify Date, Art [id number] LAB ACBTME Notify Time, Art Performed By: #### ALLBG #### [facility] [address], [place] [address] GASV + ALL Collected: 10/10/2017 Status: F Source: [place] 7:46 AM [facility] REPOSITORY TYPE CODE TESTS RESULT OUT OF REFERENCE UNITS RANGE LAB VPH 7.32-7.42 pH 7.38 LAB VPC2 42-55 mm Hg pCO2 50 LAB VPO2 35-45 mm Hg pO2 Low 33 LAB VBE mmol/L Base Excess 4 LAB VHC3 24-28 mmol/L Bicarbonate High 29 LAB VC2C 25-29 mmol/L CO2 Content High 30 LAB O2HBCX 60-85 % Oxyhemoglobin, Low Willi. 56 LAB CO <2.0 % Carboxyhemoglobin, 0.8 Willi LAB METHB 0.4-1.5 % Methemoglobin 0.8 LAB VTMP C Temperature, Body 37.0 LAB VPHTC 7.32-7.42 pH, Temp Corrected 7.38 LAB VPC2T mm Hg pCO2, Temp Correct 50 LAB VPO2T mm Hg pO2, Temp Corrected 33 LAB NAB 135-146 mmol/L Sodium,Whole Bld 136 LAB KWB 3.5-5.0 mmol/L Potassium, Whole Bld 3.9 LAB HGBB 13.0-17.0 g/dL Low Hemoglobin,Total,A 11.2 CL LAB HCTB 39.0-51.0 % Hematocrit, Low ACL 35 LAB IC 1.08-1.30 mmol/L Calcium, Ion, WB 1.13 LAB GLB 60-105 mg/dL Glucose,Whole High Bld 127 LAB LACT 0.5-2.2 mmol/L Lactate High 2.4 LAB VCBDTE Notify Date, Willi [id number] LAB VCBTME Notify Time, Willi Performed By: #### VALLBG #### [facility] [address] [place], [place] [address] GASV + ALL Collected: 10/10/2017 Status: F Source: [place] 5:26 AM [facility] REPOSITORY TYPE CODE TESTS RESULT OUT OF REFERENCE UNITS RANGE LAB VPH 7.32-7.42 pH 7.37 LAB VPC2 42-55 mm Hg pCO2 51 LAB VPO2 35-45 mm Hg pO2 35 LAB VBE mmol/L Base Excess 3 LAB VHC3 24-28 mmol/L Bicarbonate 28 LAB VC2C 25-29 mmol/L CO2 Content High 30 LAB O2HBCX 60-85 % Oxyhemoglobin, Low Willi. 59 LAB CO <2.0 % Carboxyhemoglobin,V 0.8 en LAB METHB 0.4-1.5 % Methemoglobin 1.0 LAB VTMP C Temperature, Body 37.0 LAB VPHTC 7.32-7.42 pH, Temp Corrected 7.37 LAB VPC2T mm Hg pCO2, Temp Correct 51 LAB VPO2T mm Hg pO2, Temp Corrected 35 LAB NAB 135-146 mmol/L Sodium,Whole Bld 137 LAB KWB 3.5-5.0 mmol/L Potassium, Whole Bld 4.0 LAB HGBB 13.0-17.0 g/dL Low Hemoglobin,Total,AC 11.2 L LAB HCTB 39.0-51.0 % Hematocrit, ACL Low 35 LAB IC 1.08-1.30 mmol/L Calcium, Ion, WB 1.19 LAB GLB 60-105 mg/dL Glucose,Whole Bld High 144 LAB LACT 0.5-2.2 mmol/L Lactate High 2.5 Performed By: #### VALLBG #### [facility] [address] [place], [place] [address] GASA + ALL Collected: 10/10/2017 Status: F Source: [facility] 5:23 AM [facility] RADIANCE USE ONLY REPOSITORY TYPE CODE TESTS RESULT OUT OF REFERENCE UNITS RANGE LAB PH 7.35-7.45 pH 7.42 LAB PCO2 34-46 mm Hg pCO2 43 LAB PO2 85-95 mm Hg pO2 Low 79 LAB BE mmol/L Base Excess 3 LAB HCO3 22-26 mmol/L Bicarbonate High 27 LAB CO2CT 22.0-28.0 mmol/L CO2 Content 28 LAB O2HB 95-98 % Oxyhemoglobin, Low Art. 94 LAB COHB 0-5.0 % Carboxyhemoglobin,A 1.0 rt LAB MHGB 0.4-1.5 % Methemoglobin 0.7 LAB TEMP C Temperature, Body 37.0 LAB PHTC 7.35-7.45 pH, Temp Corrected 7.42 LAB PCO2T 34-46 mm Hg pCO2, Temp Correct 43 LAB PO2T mm Hg pO2, Temp Corrected 79 LAB NAB 135-146 mmol/L Sodium,Whole Bld 135 LAB KWB 3.5-5.0 mmol/L Potassium, Whole Bld 4.0 LAB HGBB 13.0-17.0 g/dL Low Hemoglobin,Total,AC 11.4 L LAB HCTB 39.0-51.0 % Hematocrit, ACL Low 35 LAB IC 1.08-1.30 mmol/L Calcium, Ion, WB 1.16 LAB GLB 60-105 mg/dL Glucose,Whole Bld High 148 LAB LACT 0.5-2.2 mmol/L Lactate High 2.5 Performed By: #### ALLBG #### [facility] [address] [place], [place] [address] GASV + ALL Collected: 10/10/2017 Status: F Source: [place] 4:12 AM [facility] REPOSITORY TYPE CODE TESTS RESULT OUT OF REFERENCE UNITS RANGE LAB VPH 7.32-7.42 pH 7.37 LAB VPC2 42-55 mm Hg pCO2 51 LAB VPO2 35-45 mm Hg pO2 38 LAB VBE mmol/L Base Excess 3 LAB VHC3 24-28 mmol/L Bicarbonate High 29 LAB VC2C 25-29 mmol/L CO2 Content High 30 LAB O2HBCX 60-85 % Oxyhemoglobin, Willi. 65 LAB CO <2.0 % Carboxyhemoglobin,V 0.7 en LAB METHB 0.4-1.5 % Methemoglobin 1.1 LAB VTMP C Temperature, Body 37.0 LAB VPHTC 7.32-7.42 pH, Temp Corrected 7.37 LAB VPC2T mm Hg pCO2, Temp Correct 51 LAB VPO2T mm Hg pO2, Temp Corrected 38 LAB NAB 135-146 mmol/L Sodium,Whole Bld 137 LAB KWB 3.5-5.0 mmol/L Potassium, Whole Bld 4.0 LAB HGBB 13.0-17.0 g/dL Low Hemoglobin,Total,AC 11.5 L LAB HCTB 39.0-51.0 % Hematocrit, ACL Low 35 LAB IC 1.08-1.30 mmol/L Calcium, Ion, WB 1.19 LAB GLB 60-105 mg/dL Glucose,Whole Bld High 125 LAB LACT 0.5-2.2 mmol/L Lactate 2.2 Performed By: #### VALLBG #### [facility] [address] [place], [place] [address] GASA + ALL Collected: 10/10/2017 Status: F Source: [place] 4:09 AM [facility] RADIANCE USE ONLY REPOSITORY TYPE CODE TESTS RESULT OUT OF REFERENCE UNITS RANGE LAB PH 7.35-7.45 pH 7.43 LAB PCO2 34-46 mm Hg pCO2 40 LAB PO2 85-95 mm Hg pO2 High 167 LAB BE mmol/L Base Excess 2 LAB HCO3 22-26 mmol/L Bicarbonate 26 LAB CO2CT 22.0-28.0 mmol/L CO2 Content 27 LAB O2HB 95-98 % Oxyhemoglobin, Art. 97 LAB COHB 0-5.0 % Carboxyhemoglobin,A 1.0 rt LAB MHGB 0.4-1.5 % Methemoglobin 1.1 LAB TEMP C Temperature, Body 37.0 LAB PHTC 7.35-7.45 pH, Temp Corrected 7.43 LAB PCO2T 34-46 mm Hg pCO2, Temp Correct 40 LAB PO2T mm Hg pO2, Temp Corrected 167 LAB NAB 135-146 mmol/L Sodium,Whole Bld 137 LAB KWB 3.5-5.0 mmol/L Potassium, Whole Bld 4.0 LAB HGBB 13.0-17.0 g/dL Low Hemoglobin,Total,AC 11.2 L LAB HCTB 39.0-51.0 % Hematocrit, ACL Low 35 LAB IC 1.08-1.30 mmol/L Calcium, Ion, WB 1.16 LAB GLB 60-105 mg/dL Glucose,Whole Bld High 125 LAB LACT 0.5-2.2 mmol/L Lactate 2.2 Performed By: #### ALLBG #### [facility] [address] [place], [place] [address] XR CHEST 1V FRONTAL Observed: 10/10/2017 Status: F Source: [facility] 4:04 AM [facility] REPOSITORY * * *Final Report* * * DATE OF EXAM: Oct 10 2017 4:04AM JIX [id number] - XR CHEST 1V FRONTAL PORT / PROCEDURE REASON: Postoperative state * * * * Physician Interpretation * * * * CHEST RADIOGRAPH (PORTABLE SINGLE VIEW AP) Exam Date/Time: 10/10/2017 4:04 AM Indications: Postoperative state M: XCP_3 Comparison: 1 day earlier RESULTS: See Impression. IMPRESSION: Lines, Tubes, and Devices: Stable support lines and tubes including surgical sponge material and sternal supervisor line department overlying open chest. Lungs and Pleura: Scattered lung opacities and small right effusion are not significantly changed. No pneumothorax. Cardiomediastinal silhouette: Stable cardiac silhouette. Silver Wrapper: PSCJessenia Transcribe Date/Time: Oct 10 2017 7:12A Dictated by : CIRILO MATUTE MD This examination was interpreted and the report reviewed and electronically signed by: CIRILO MATUTE MD on Oct 10 2017 7:13AM EST [id number] GASV + ALL Collected: 10/10/2017 Status: F Source: [place] 2:03 AM [facility] REPOSITORY TYPE CODE TESTS RESULT OUT OF REFERENCE UNITS RANGE LAB VPH 7.32-7.42 pH 7.38 LAB VPC2 42-55 mm Hg pCO2 49 LAB VPO2 35-45 mm Hg pO2 Low 30 LAB VBE mmol/L Base Excess 3 LAB VHC3 24-28 mmol/L Bicarbonate 28 LAB VC2C 25-29 mmol/L CO2 Content High 30 LAB O2HBCX 60-85 % Oxyhemoglobin, Low Willi. 50 LAB CO <2.0 % Carboxyhemoglobin,V 0.3 en LAB METHB 0.4-1.5 % Methemoglobin 0.7 LAB VTMP C Temperature, Body 37.0 LAB VPHTC 7.32-7.42 pH, Temp Corrected 7.38 LAB VPC2T mm Hg pCO2, Temp Correct 49 LAB VPO2T mm Hg pO2, Temp Corrected 30 LAB NAB 135-146 mmol/L Sodium,Whole Bld 139 LAB KWB 3.5-5.0 mmol/L Potassium, Whole Bld 4.0 LAB HGBB 13.0-17.0 g/dL Low Hemoglobin,Total,AC 11.0 L LAB HCTB 39.0-51.0 % Hematocrit, ACL Low 34 LAB IC 1.08-1.30 mmol/L Calcium, Ion, WB 1.11 LAB GLB 60-105 mg/dL Glucose,Whole Bld High 133 LAB LACT 0.5-2.2 mmol/L Lactate High 2.6 Performed By: #### VALLBG #### [facility] [address] [place], [place] [address] GASA + ALL Collected: 10/10/2017 Status: F Source: [place] FOR 2:01 AM [facility] RADIANCE USE ONLY REPOSITORY TYPE CODE TESTS RESULT OUT OF REFERENCE UNITS RANGE LAB PH 7.35-7.45 pH 7.43 LAB PCO2 34-46 mm Hg pCO2 39 LAB PO2 85-95 mm Hg pO2 High 112 LAB BE mmol/L Base Excess 1 LAB HCO3 22-26 mmol/L Bicarbonate 25 LAB CO2CT 22.0-28.0 mmol/L CO2 Content 27 LAB O2HB 95-98 % Oxyhemoglobin, Art. 97 LAB COHB 0-5.0 % Carboxyhemoglobin,A 1.2 rt LAB MHGB 0.4-1.5 % Methemoglobin 0.6 LAB TEMP C Temperature, Body 37.0 LAB PHTC 7.35-7.45 pH, Temp Corrected 7.43 LAB PCO2T 34-46 mm Hg pCO2, Temp Correct 39 LAB PO2T mm Hg pO2, Temp Corrected 112 LAB NAB 135-146 mmol/L Sodium,Whole Bld 138 LAB KWB 3.5-5.0 mmol/L Potassium, Whole Bld 4.0 LAB HGBB 13.0-17.0 g/dL Low Hemoglobin,Total,AC 11.0 L LAB HCTB 39.0-51.0 % Hematocrit, ACL Low 34 LAB IC 1.08-1.30 mmol/L Calcium, Ion, WB 1.08 LAB GLB 60-105 mg/dL Glucose,Whole Bld High 138 LAB LACT 0.5-2.2 mmol/L Lactate High 2.5 Performed By: #### ALLBG #### [facility] [address] [place], [place] [address] COMP METABOLIC PANEL Collected: 10/10/2017 Status: F Source: [place] 2:00 AM [facility] REPOSITORY TYPE CODE TESTS RESULT OUT OF REFERENCE UNITS RANGE LAB TP 6.3-8.0 g/dL Low Protein, Total 4.6 LAB ALB 3.9-4.9 g/dL Low Albumin 2.8 LAB CA 8.5-10.2 mg/dL Low Calcium, Total 7.6 LAB TBIL 0.2-1.3 mg/dL Bilirubin, Total 1.2 LAB ALKP 36-108 U/L Low Alkaline Phosphatase 31 LAB AST 14-40 U/L AST High 358 LAB GLU 74-99 mg/dL Glucose High 131 Result Comment: The [place] [employer] (ADA) provides guidance for cutoff values for fasting glucose and random glucose. The ADA defines fasting as no caloric intake for at least 8 hours. Fas ting plasma glucose results between 100 to 125 mg/dL indicate increased risk for diabetes (prediabetes). Fasting plasma glucose results greater than or equal to 126 mg/dL meet the criteria for diagnosis of diabetes. In the absence of unequivocal hyperglycemia, results should be confirmed by repeat testing. In a patient with classic symptoms of hyperglycemia or hyperglycemic crisis, random plasma glucose results greater than or equal to 200 mg/dL meet the criteria for diagnosis of diabetes. Reference: Standards of Medical Care in Diabetes 2016, [place] [employer]. Diabetes Care. 2016.39(Suppl 1). LAB BUN 9-24 mg/dL BUN High 27 LAB CRET 0.73-1.22 mg/dL Creatinine High 2.18 LAB NA 136-144 mmol/L Sodium 139 LAB K 3.7-5.1 mmol/L Potassium 4.2 LAB CL 97-105 mmol/L Chloride 100 LAB CO2 22-30 mmol/L CO2 26 LAB AGAP 9-18 mmol/L Anion Gap 13 LAB ALT 10-54 U/L ALT High 309 LAB GFRAA eGFR- Amer. 38 LAB GFRNAA . eGFR-All Other Races 32 Result Comment: eGFR (Estimated GFR) Units of measure: mL/min/1.73 meters squared eGFR is derived from the reexpressed MDRD Study equation using the following parameters: serum creatinine, age, gender and race. The creatinine assay has been calibrated to be traceable to IDMS. An eGFR <60 mL/min/1.73m2 for >3 months is consistent with chronic kidney disease. Refer to KDOQI guidelines for clinical interpretation. In patients with unstable renal function, e.g. those with acute kidney injury, the eGFR may not accurately reflect actual GFR. Performed By: #### CMP, CBC #### [address] [address] CBC Collected: 10/10/2017 Status: F Source: [place] 2:00 AM [facility] REPOSITORY TYPE CODE TESTS RESULT OUT OF REFERENCE UNITS RANGE LAB WBC 3.70-11.00 k/uL WBC High 13.13 LAB RBC 4.20-6.00 m/uL Low RBC 3.62 LAB HGB 13.0-17.0 g/dL Low Hemoglobin 10.9 LAB HCT 39.0-51.0 % Low Hematocrit 31.8 LAB MCV 80.0-100.0 fL MCV 87.8 LAB MCH 26.0-34.0 pG MCH 30.1 LAB MCHC 30.5-36.0 g/dL MCHC 34.3 LAB RDWCV 11.5-15.0 % RDW-CV High 15.9 LAB PLTCT 150-400 k/uL Low Platelet Count 96 Result Comment: Result checked and verified No clot detected. LAB MPV 9.0-12.7 fL MPV 10.9 LAB ABSNUC <0.01 k/uL High Absolute nRBC 0.01 Performed By: #### CMP, CBC #### [facility] [address] [place] [address] OPERATIVE NO Observed: 10/10/2017 Status: COMPLETED Source: [place] 12:00 AM [facility] REPOSITORY HNO ID: [id number] Author: Arpit Mckenzie Service: Cardiovascular Surgery Author Type: Physician Type: Operative Report Filed: 10/14/2017 11:35 AM Note Text: [address] [address] [place] OPERATIVE REPORT DEPARTMENT OF THORACIC AND CARDIOVASCULAR SURGERY NAME: OJSE GUSTAFSON [facility] #: [id number] DATE: 10/10/2017 AGE: 52 SURGEON 1: Arpit Mckenzie M.D. SURGEON 2: CHISELER HEAD 1: Mayito Vera M.D. CHISELER HEAD 2: ANESTHESIA: General. OPERATIONS: Chest exploration, chest washout, left chest open with vacuum drainage. 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 POSTOPERATIVE DIAGNOSES: Status post left type A aortic dissection repair with frozen elephant trunk and chest open. OPERATIVE INDICATIONS: The procedure risks of washout and potential chest closure were discussed with the family. The family understood and agreed to proceed. OPERATIVE PROCEDURE: The patient was prepped and draped in the usual sterile fashion. Under general anesthesia, all the previous vacuum dressing was removed. We did then find a small amount of clots in the pericardium that were sent for culture, but there was no active bleeding, completely dry. We irrigated with pulse lavage wirh vancomycin solution. We used pulse lavage with vancomycin and gentamicin solution antibiotics for 20 minutes. We irrigated out at least 3 L of saline solution with antibiotics. We tried to close the chest, but presented compression of all mediastinum due to a sweling lungs, the O2 saturation dropped and the pO2 went down. So, we decided to left the chest open with a vacuum dressing as well as same drainage chest tube. The patient tolerated the washout and in stable condition was transferred to CVICU and the chest open. The CHARGE HAND was Jarret Jaimes. START OF OPERATION: 02:51 p.m. FINISH OF OPERATION: 04:01 p.m. ESTIMATED BLOOD LOSS: Minimal. DRAINS: 2 mediastinal, 2 Chest tubes, 2 Blakes SPECIMENS: Mediastinal clot. Arpit Mckenzie M.D. JN:[id number] cc: GASV + ALL Collected: 10/09/2017 Status: F Source: [place] 11:28 PM [facility] REPOSITORY TYPE CODE TESTS RESULT OUT OF REFERENCE UNITS RANGE LAB VPH 7.32-7.42 pH 7.38 LAB VPC2 42-55 mm Hg pCO2 51 LAB VPO2 35-45 mm Hg pO2 Low 31 LAB VBE mmol/L Base Excess 4 LAB VHC3 24-28 mmol/L Bicarbonate High 30 LAB VC2C 25-29 mmol/L CO2 Content High 31 LAB O2HBCX 60-85 % Oxyhemoglobin, Low Willi. 50 LAB CO <2.0 % Carboxyhemoglobin,V 0.7 en LAB METHB 0.4-1.5 % Methemoglobin 0.9 LAB VTMP C Temperature, Body 37.0 LAB VPHTC 7.32-7.42 pH, Temp Corrected 7.38 LAB VPC2T mm Hg pCO2, Temp Correct 51 LAB VPO2T mm Hg pO2, Temp Corrected 31 LAB NAB 135-146 mmol/L Sodium,Whole Bld 138 LAB KWB 3.5-5.0 mmol/L Potassium, Whole Bld 4.1 LAB HGBB 13.0-17.0 g/dL Low Hemoglobin,Total,AC 10.6 L LAB HCTB 39.0-51.0 % Hematocrit, ACL Low 33 LAB IC 1.08-1.30 mmol/L Calcium, Ion, WB 1.14 LAB GLB 60-105 mg/dL Glucose,Whole Bld High 144 LAB LACT 0.5-2.2 mmol/L Lactate High 2.9 Performed By: #### VALLBG #### [facility] [address] [place], [place] [address] GASA + ALL Collected: 10/09/2017 Status: F Source: [place] 11:26 PM [facility] RADIANCE USE ONLY REPOSITORY TYPE CODE TESTS RESULT OUT OF REFERENCE UNITS RANGE LAB PH 7.35-7.45 pH 7.44 LAB PCO2 34-46 mm Hg pCO2 41 LAB PO2 85-95 mm Hg pO2 High 100 LAB BE mmol/L Base Excess 3 LAB HCO3 22-26 mmol/L Bicarbonate High 27 LAB CO2CT 22.0-28.0 mmol/L CO2 Content 28 LAB O2HB 95-98 % Oxyhemoglobin, Art. 96 LAB COHB 0-5.0 % Carboxyhemoglobin,A 1.2 rt LAB MHGB 0.4-1.5 % Methemoglobin 0.9 LAB TEMP C Temperature, Body 37.0 LAB PHTC 7.35-7.45 pH, Temp Corrected 7.44 LAB PCO2T 34-46 mm Hg pCO2, Temp Correct 41 LAB PO2T mm Hg pO2, Temp Corrected 100 LAB NAB 135-146 mmol/L Sodium,Whole Bld 138 LAB KWB 3.5-5.0 mmol/L Potassium, Whole Bld 4.1 LAB HGBB 13.0-17.0 g/dL Low Hemoglobin,Total,AC 10.5 L LAB HCTB 39.0-51.0 % Hematocrit, ACL Low 33 LAB IC 1.08-1.30 mmol/L Calcium, Ion, WB 1.12 LAB GLB 60-105 mg/dL Glucose,Whole Bld High 142 LAB LACT 0.5-2.2 mmol/L Lactate High 2.9 Performed By: #### ALLBG #### [facility] [address] [place], [place] [address] GASV + ALL Collected: 10/09/2017 Status: F Source: [place] 8:40 PM [facility] [place] REPOSITORY TYPE CODE TESTS RESULT OUT OF REFERENCE UNITS RANGE LAB VPH 7.32-7.42 pH 7.33 LAB VPC2 42-55 mm Hg pCO2 High 58 LAB VPO2 35-45 mm Hg pO2 Low 34 LAB VBE mmol/L Base Excess 3 LAB VHC3 24-28 mmol/L Bicarbonate High 30 LAB VC2C 25-29 mmol/L CO2 Content High 31 LAB O2HBCX 60-85 % Oxyhemoglobin, Low Willi. 55 LAB CO <2.0 % Carboxyhemoglobin,V 0.7 en LAB METHB 0.4-1.5 % Methemoglobin 0.6 LAB VTMP C Temperature, Body 37.0 LAB VPHTC 7.32-7.42 pH, Temp Corrected 7.33 LAB VPC2T mm Hg pCO2, Temp Correct 58 LAB VPO2T mm Hg pO2, Temp Corrected 34 LAB NAB 135-146 mmol/L Sodium,Whole Bld 137 LAB KWB 3.5-5.0 mmol/L Potassium, Whole Bld 4.2 LAB HGBB 13.0-17.0 g/dL Low Hemoglobin,Total,AC 10.5 L LAB HCTB 39.0-51.0 % Hematocrit, ACL Low 32 LAB IC 1.08-1.30 mmol/L Calcium, Ion, WB 1.15 LAB GLB 60-105 mg/dL Glucose,Whole Bld High 156 LAB LACT 0.5-2.2 mmol/L Lactate High 2.7 Performed By: #### VALLBG #### [facility] [address] [place], [place] [address] GASA + ALL Collected: 10/09/2017 Status: F Source: [place] FOR 8:39 PM [facility] RADIANCE USE ONLY REPOSITORY TYPE CODE TESTS RESULT OUT OF REFERENCE UNITS RANGE LAB PH 7.35-7.45 pH 7.37 LAB PCO2 34-46 mm Hg pCO2 High 47 LAB PO2 85-95 mm Hg pO2 High 114 LAB BE mmol/L Base Excess 2 LAB HCO3 22-26 mmol/L Bicarbonate High 27 LAB CO2CT 22.0-28.0 mmol/L CO2 Content 28 LAB O2HB 95-98 % Oxyhemoglobin, Art. 97 LAB COHB 0-5.0 % Carboxyhemoglobin,A 0.9 rt LAB MHGB 0.4-1.5 % Methemoglobin 0.9 LAB TEMP C Temperature, Body 37.0 LAB PHTC 7.35-7.45 pH, Temp Corrected 7.37 LAB PCO2T 34-46 mm Hg pCO2, Temp High Correct 47 LAB PO2T mm Hg pO2, Temp Corrected 114 LAB NAB 135-146 mmol/L Sodium,Whole Bld 138 LAB KWB 3.5-5.0 mmol/L Potassium, Whole Bld 4.4 LAB HGBB 13.0-17.0 g/dL Low Hemoglobin,Total,AC 10.7 L LAB HCTB 39.0-51.0 % Hematocrit, ACL Low 33 LAB IC 1.08-1.30 mmol/L Calcium, Ion, WB 1.20 LAB GLB 60-105 mg/dL Glucose,Whole Bld High 152 LAB LACT 0.5-2.2 mmol/L Lactate High 3.1 Performed By: #### ALLBG #### [facility] [address] [place], [place] [address] CONSULT PROG Observed: 10/09/2017 Status: COMPLETED Source: [place] 7:52 PM [facility] REPOSITORY HNO ID: [id number] Author: Griselda Cain (Pharmacist) Service: Pharmacy Author Type: Pharmacist Type: Consult Progress Note Filed: 10/09/2017 7:59 PM Note Text: PHARMACY VANCOMYCIN DOSING NOTE Patient Name: Jose Gustafson Admission Date: 10/07/2017 Date of Consult: 10/09/2017 Time of Consult: 7:52 PM Indication: Source Unknown; empiric Goal Range: 10-20 mcg/mL RECOMMENDATIONS/PLAN: Pharmacy consulted for vancomycin dosing for Jose Gustafson, a 52 year old, male who is being treated with vancomycin for empirci 1. Patient is currently ordered Vancomycin dosed by level. Today is day 2 of therapy. 2. The most recent vancomycin level was 13.6 mcg/mL drawn at 18:22 on 10/09/2017. This is a 22 hour level after 1.25g given on 10/08 3. Vancomycin level is within therapeutic range. Serum creatinine and/or urine output have changed markedly in the previous days. Will give vancomycin 1.25g x 1 dose, then dose by level 4. The next vancomycin level will be ordered in 24 to 48 hours unless clinically indicated sooner. (Pharmacy will order) We will follow patient renal function, vancomycin levels and doses with you during the course of therapy. Additional recommendations will appear in follow up notes. If you have any questions, please [place] [phone] (pager). Age: [age] year old Allergies: ALLERGIES Allergen Reactions - Cats - Grass Pollen Itching Last 3 Encounter Wt Readings: Date: Wt: 10/07/2017 85 kg (187 lb 6.3 oz) 09/07/2017 84.6 kg (186 lb 6.4 oz) 08/24/2017 83.5 kg (184 lb) Last 1 Encounter Ht Readings: Date: Ht: 10/07/2017 182.9 cm (6') CrCl: 43 mL/min Temp (24hrs), Av.4 ?C (99.3 ?F), Min:37.3 ?C (99.1 ?F), Max:37.5 ?C (99.5 ?F) - Current Temp: 37.3 ?C (99.1 ?F) Labs BUN (mg/dL) Date Value 10/09/2017 21 10/08/2017 13 10/07/2017 14 Creatinine (mg/dL) Date Value 10/09/2017 2.16 (H) 10/08/2017 1.52 (H) 10/07/2017 1.22 WBC (k/uL) Date Value 10/09/2017 11.20 (H) 10/09/2017 10.38 10/08/2017 9.26 Vancomycin Levels: Vancomycin, result (ug/mL) Date Value 10/09/2017 13.6 Stephen Blanchard VANCOMYCIN Collected: 10/09/2017 Status: F Source: [place] 6:22 PM [facility] REPOSITORY TYPE CODE TESTS RESULT OUT OF REFERENCE UNITS RANGE LAB VANCRA 5.0-20.0 ug/mL Vancomycin 13.6 Result Comment: Reference ranges and high/low indicator flags are provided as general guidelines only. The treating physician must determine appropriate target levels/dosing based on the specific clinical situation. Performed By: #### VANCRA #### [facility] [address] [place] [address] GASV + ALL Collected: 10/09/2017 Status: F Source: [place] 6:13 PM [facility] REPOSITORY TYPE CODE TESTS RESULT OUT OF REFERENCE UNITS RANGE LAB VPH 7.32-7.42 pH 7.33 LAB VPC2 42-55 mm Hg pCO2 High 57 LAB VPO2 35-45 mm Hg pO2 36 LAB VBE mmol/L Base Excess 3 LAB VHC3 24-28 mmol/L Bicarbonate High 29 LAB VC2C 25-29 mmol/L CO2 Content High 31 LAB O2HBCX 60-85 % Oxyhemoglobin, Low Willi. 59 LAB CO <2.0 % Carboxyhemoglobin,V 0.6 en LAB METHB 0.4-1.5 % Methemoglobin 0.4 LAB VTMP C Temperature, Body 37.0 LAB VPHTC 7.32-7.42 pH, Temp Corrected 7.33 LAB VPC2T mm Hg pCO2, Temp Correct 57 LAB VPO2T mm Hg pO2, Temp Corrected 36 LAB NAB 135-146 mmol/L Sodium,Whole Bld 139 LAB KWB 3.5-5.0 mmol/L Potassium, Whole Bld 4.3 LAB HGBB 13.0-17.0 g/dL Low Hemoglobin,Total,AC 10.5 L LAB HCTB 39.0-51.0 % Hematocrit, ACL Low 33 LAB IC 1.08-1.30 mmol/L Calcium, Ion, WB 1.16 LAB GLB 60-105 mg/dL Glucose,Whole Bld High 135 LAB LACT 0.5-2.2 mmol/L Lactate High 3.3 Performed By: #### VALLBG #### [facility] [address] [place], [place] [address] GASA + ALL Collected: 10/09/2017 Status: F Source: [place] FOR 6:11 PM [facility] RADIANCE USE ONLY REPOSITORY TYPE CODE TESTS RESULT OUT OF REFERENCE UNITS RANGE LAB PH 7.35-7.45 pH 7.38 LAB PCO2 34-46 mm Hg pCO2 45 LAB PO2 85-95 mm Hg pO2 High 123 LAB BE mmol/L Base Excess 1 LAB HCO3 22-26 mmol/L Bicarbonate 26 LAB CO2CT 22.0-28.0 mmol/L CO2 Content 28 LAB O2HB 95-98 % Oxyhemoglobin, Art. 98 LAB COHB 0-5.0 % Carboxyhemoglobin,A 0.7 rt LAB MHGB 0.4-1.5 % Methemoglobin 0.4 LAB TEMP C Temperature, Body 37.0 LAB PHTC 7.35-7.45 pH, Temp Corrected 7.38 LAB PCO2T 34-46 mm Hg pCO2, Temp Correct 45 LAB PO2T mm Hg pO2, Temp Corrected 123 LAB NAB 135-146 mmol/L Sodium,Whole Bld 139 LAB KWB 3.5-5.0 mmol/L Potassium, Whole Bld 4.3 LAB HGBB 13.0-17.0 g/dL Low Hemoglobin,Total,AC 10.4 L LAB HCTB 39.0-51.0 % Hematocrit, ACL Low 32 LAB IC 1.08-1.30 mmol/L Calcium, Ion, WB 1.13 LAB GLB 60-105 mg/dL Glucose,Whole Bld High 132 LAB LACT 0.5-2.2 mmol/L Lactate High 3.3 Performed By: #### ALLBG #### [facility] [address] [place], [place] [address] GASV + ALL Collected: 10/09/2017 Status: F Source: [place] 4:31 PM [facility] REPOSITORY TYPE CODE TESTS RESULT OUT OF REFERENCE UNITS RANGE LAB VPH 7.32-7.42 pH 7.34 LAB VPC2 42-55 mm Hg pCO2 High 57 LAB VPO2 35-45 mm Hg pO2 35 LAB VBE mmol/L Base Excess 3 LAB VHC3 24-28 mmol/L Bicarbonate High 30 LAB VC2C 25-29 mmol/L CO2 Content High 31 LAB O2HBCX 60-85 % Oxyhemoglobin, Low Willi. 55 LAB CO <2.0 % Carboxyhemoglobin,V 0.9 en LAB METHB 0.4-1.5 % Methemoglobin Low 0.2 LAB VTMP C Temperature, Body 37.0 LAB VPHTC 7.32-7.42 pH, Temp Corrected 7.34 LAB VPC2T mm Hg pCO2, Temp Correct 57 LAB VPO2T mm Hg pO2, Temp Corrected 35 LAB NAB 135-146 mmol/L Sodium,Whole Bld 140 LAB KWB 3.5-5.0 mmol/L Potassium, Whole Bld 4.6 LAB HGBB 13.0-17.0 g/dL Low Hemoglobin,Total,AC 10.8 L LAB HCTB 39.0-51.0 % Hematocrit, ACL Low 34 LAB IC 1.08-1.30 mmol/L Calcium, Ion, WB 1.20 LAB GLB 60-105 mg/dL Glucose,Whole Bld High 143 LAB LACT 0.5-2.2 mmol/L Lactate High 3.1 Performed By: #### VALLBG #### [facility] [address] [place] [id number] GASA + ALL Collected: 10/09/2017 Status: F Source: [place] FOR 4:29 PM [facility] RADIANCE USE ONLY REPOSITORY TYPE CODE TESTS RESULT OUT OF REFERENCE UNITS RANGE LAB PH 7.35-7.45 pH 7.39 LAB PCO2 34-46 mm Hg pCO2 High 47 LAB PO2 85-95 mm Hg pO2 High 115 LAB BE mmol/L Base Excess 3 LAB HCO3 22-26 mmol/L Bicarbonate High 28 LAB CO2CT 22.0-28.0 mmol/L CO2 Content High 29 LAB O2HB 95-98 % Oxyhemoglobin, Art. 97 LAB COHB 0-5.0 % Carboxyhemoglobin,A 0.6 rt LAB MHGB 0.4-1.5 % Methemoglobin 1.0 LAB TEMP C Temperature, Body 37.0 LAB PHTC 7.35-7.45 pH, Temp Corrected 7.39 LAB PCO2T 34-46 mm Hg pCO2, Temp High Correct 47 LAB PO2T mm Hg pO2, Temp Corrected 115 LAB NAB 135-146 mmol/L Sodium,Whole Bld 139 LAB KWB 3.5-5.0 mmol/L Potassium, Whole Bld 4.6 LAB HGBB 13.0-17.0 g/dL Low Hemoglobin,Total,AC 11.1 L LAB HCTB 39.0-51.0 % Hematocrit, ACL Low 34 LAB IC 1.08-1.30 mmol/L Calcium, Ion, WB 1.18 LAB GLB 60-105 mg/dL Glucose,Whole Bld High 144 LAB LACT 0.5-2.2 mmol/L Lactate High 3.0 Performed By: #### ALLBG #### [facility] [address] [place], [place] [address] 12 LEAD ELECTROCARDIOGRAM Observed: 10/09/2017 Status: F Source: [place] 4:[address] [facility] REPOSITORY [facility] Cardiovascular Services [address] [place] [address] 12 Lead EKG 10/06/17 1420 MR#: [id number] Acct: [id number] Name: JANAYJOSE Juan Escobar Rep #: [id number] : 1965 52 From: Everardo Hsu MD Attending Dr: Status: DEP ER Ordering Dr: Soniya Jon DO Date: 10/06/17 Location: ED Sex: M C Admitted: Test Reason : CHEST DISCOMFORT Blood Pressure : / mmHG Vent. Rate : 066 BPM Atrial Rate : 066 BPM P-R Int : 132 ms QRS Dur : 084 ms QT Int : 390 ms P-R-T Axes : 038 039 036 degrees QTc Int : 408 ms Normal sinus rhythm Normal ECG Confirmed by EVERARDO HSU MD ([id number]), order editor PUSHPA GONZALEZ ([id number]) on 10/09/2017 4:03:35 PM Referred By: Confirmed By:EVERARDO HSU MD 10/09/17 1603 Date Everardo Hsu MD CC: Kaykay Beth MD; Soniya Jon DO Signed 12 LEAD ELECTROCARDIOGRAM Observed: 10/09/2017 Status: F Source: [place] 4:04 PM [facility] REPOSITORY [facility] Cardiovascular Services [address] [place] [address] 12 Lead EKG 10/06/17 1604 MR#: [id number] Acct: [id number] Name: JANAYJOSE Jr. Rep #: [id number] : 1965 52 From: Everardo Hsu MD Attending Dr: Status: DEP ER Ordering Dr: Soniya Jon DO Date: 10/06/17 Location: ED Sex: M C Admitted: Test Reason : REPEAT Blood Pressure : / mmHG Vent. Rate : 063 BPM Atrial Rate : 063 BPM P-R Int : 132 ms QRS Dur : 084 ms QT Int : 398 ms P-R-T Axes : 033 025 028 degrees QTc Int : 407 ms Normal sinus rhythm Normal ECG Confirmed by ARACELIS NAQVI, EVERARDO ([id number]), order editor PUSHPA GONZALEZ ([id number]) on 10/09/2017 4:03:53 PM Referred By: AR Confirmed By:EVERARDO HSU MD 10/09/17 1603 Date Everardo Hsu MD CC: Kaykay Beth MD; Soniya Jon DO Signed 12 LEAD ELECTROCARDIOGRAM Observed: 10/09/2017 Status: F Source: [place] 3:25 PM [facility] REPOSITORY [facility] Cardiovascular Services [address] [place] [address] 12 Lead EKG 10/07/17 1156 MR#: [id number] Acct: [id number] Name: JOSE GUSTAFSON Jr. Rep #: [id number] : 1965 52 From: Everardo Hsu MD Attending Dr: Status: DEP ER Ordering Dr: Estela Mcdermott DO Date: 10/07/17 Location: ED Sex: M C Admitted: Test Reason : Blood Pressure : / mmHG Vent. Rate : 109 BPM Atrial Rate : 109 BPM P-R Int : 126 ms QRS Dur : 076 ms QT Int : 346 ms P-R-T Axes : 035 068 061 degrees QTc Int : 465 ms Sinus tachycardia Otherwise normal ECG Confirmed by ARACELIS NAQVI, EVERARDO ([id number]), order editor PUSHPA GONZALEZ ([id number]) on 10/09/2017 3:25:16 PM Referred By: AUBREE Confirmed By:EVERARDO HSU MD 10/09/17 1525 Date Everardo Hsu MD CC: Kaykay Beth MD; Estela Mcdermott DO Signed GASV + ALL Collected: 10/09/2017 Status: F Source: [place] 2:23 PM [facility] REPOSITORY TYPE CODE TESTS RESULT OUT OF REFERENCE UNITS RANGE LAB VPH 7.32-7.42 pH 7.34 LAB VPC2 42-55 mm Hg pCO2 54 LAB VPO2 35-45 mm Hg pO2 Low 34 LAB VBE mmol/L Base Excess 2 LAB VHC3 24-28 mmol/L Bicarbonate 28 LAB VC2C 25-29 mmol/L CO2 Content High 30 LAB O2HBCX 60-85 % Oxyhemoglobin, Low Willi. 57 LAB CO <2.0 % Carboxyhemoglobin,V 0.7 en LAB METHB 0.4-1.5 % Methemoglobin 0.7 LAB VTMP C Temperature, Body 37.0 LAB VPHTC 7.32-7.42 pH, Temp Corrected 7.34 LAB VPC2T mm Hg pCO2, Temp Correct 54 LAB VPO2T mm Hg pO2, Temp Corrected 34 LAB NAB 135-146 mmol/L Sodium,Whole Bld 139 LAB KWB 3.5-5.0 mmol/L Potassium, Whole Bld 4.6 LAB HGBB 13.0-17.0 g/dL Low Hemoglobin,Total,AC 10.6 L LAB HCTB 39.0-51.0 % Hematocrit, ACL Low 33 LAB IC 1.08-1.30 mmol/L Calcium, Ion, WB 1.17 LAB GLB 60-105 mg/dL Glucose,Whole Bld High 148 LAB LACT 0.5-2.2 mmol/L Lactate High 2.6 Performed By: #### VALLBG #### [facility] [address] [place], [place] [address] GASA + ALL Collected: 10/09/2017 Status: F Source: [place] FOR 2:18 PM [facility] [place] RADIANCE USE ONLY REPOSITORY TYPE CODE TESTS RESULT OUT OF REFERENCE UNITS RANGE LAB PH 7.35-7.45 pH 7.39 LAB PCO2 34-46 mm Hg pCO2 46 LAB PO2 85-95 mm Hg pO2 Low 80 LAB BE mmol/L Base Excess 2 LAB HCO3 22-26 mmol/L Bicarbonate High 27 LAB CO2CT 22.0-28.0 mmol/L CO2 Content 28 LAB O2HB 95-98 % Oxyhemoglobin, Art. 95 LAB COHB 0-5.0 % Carboxyhemoglobin,A 0.7 rt LAB MHGB 0.4-1.5 % Methemoglobin Low 0.2 LAB TEMP C Temperature, Body 37.0 LAB PHTC 7.35-7.45 pH, Temp Corrected 7.39 LAB PCO2T 34-46 mm Hg pCO2, Temp Correct 46 LAB PO2T mm Hg pO2, Temp Corrected 80 LAB NAB 135-146 mmol/L Sodium,Whole Bld 140 LAB KWB 3.5-5.0 mmol/L Potassium, Whole Bld 4.7 LAB HGBB 13.0-17.0 g/dL Low Hemoglobin,Total,AC 10.9 L LAB HCTB 39.0-51.0 % Hematocrit, ACL Low 34 LAB IC 1.08-1.30 mmol/L Calcium, Ion, WB 1.19 LAB GLB 60-105 mg/dL Glucose,Whole Bld High 156 LAB LACT 0.5-2.2 mmol/L Lactate High 2.8 Performed By: #### ALLBG #### [facility] [address] [place] [address] GASV + ALL Collected: 10/09/2017 Status: F Source: [place] 12:27 PM [facility] REPOSITORY TYPE CODE TESTS RESULT OUT OF REFERENCE UNITS RANGE LAB VPH 7.32-7.42 pH 7.35 LAB VPC2 42-55 mm Hg pCO2 53 LAB VPO2 35-45 mm Hg pO2 35 LAB VBE mmol/L Base Excess 3 LAB VHC3 24-28 mmol/L Bicarbonate High 29 LAB VC2C 25-29 mmol/L CO2 Content High 31 LAB O2HBCX 60-85 % Oxyhemoglobin, Willi. 62 LAB CO <2.0 % Carboxyhemoglobin, 0.8 Willi LAB METHB 0.4-1.5 % Methemoglobin 0.5 LAB VTMP C Temperature, Body 37.0 LAB VPHTC 7.32-7.42 pH, Temp Corrected 7.35 LAB VPC2T mm Hg pCO2, Temp Correct 53 LAB VPO2T mm Hg pO2, Temp Corrected 35 LAB NAB 135-146 mmol/L Sodium,Whole Bld 141 LAB KWB 3.5-5.0 mmol/L Potassium, Whole Bld 4.4 LAB HGBB 13.0-17.0 g/dL Low Hemoglobin,Total,A 10.5 CL LAB HCTB 39.0-51.0 % Hematocrit, Low ACL 32 LAB IC 1.08-1.30 mmol/L Calcium, Ion, WB 1.19 LAB GLB 60-105 mg/dL Glucose,Whole High Bld 132 LAB LACT 0.5-2.2 mmol/L Lactate High 2.5 LAB VCBDTE Notify Date, Willi [id number] LAB VCBTME Notify Time, Willi Performed By: #### VALLBG #### [facility] [address] [place], [place] [address] GASA + ALL Collected: 10/09/2017 Status: F Source: [place] FOR 12:20 PM [facility] RADIANCE USE ONLY REPOSITORY TYPE CODE TESTS RESULT OUT OF REFERENCE UNITS RANGE LAB PH 7.35-7.45 pH 7.40 LAB PCO2 34-46 mm Hg pCO2 46 LAB PO2 85-95 mm Hg pO2 High 124 LAB BE mmol/L Base Excess 3 LAB HCO3 22-26 mmol/L Bicarbonate High 28 LAB CO2CT 22.0-28.0 mmol/L CO2 Content High 30 LAB O2HB 95-98 % Oxyhemoglobin, Art. 98 LAB COHB 0-5.0 % Carboxyhemoglobin, 0.8 Art LAB MHGB 0.4-1.5 % Methemoglobin 0.5 LAB TEMP C Temperature, Body 37.0 LAB PHTC 7.35-7.45 pH, Temp Corrected 7.40 LAB PCO2T 34-46 mm Hg pCO2, Temp Correct 46 LAB PO2T mm Hg pO2, Temp Corrected 124 LAB NAB 135-146 mmol/L Sodium,Whole Bld 139 LAB KWB 3.5-5.0 mmol/L Potassium, Whole Bld 4.6 LAB HGBB 13.0-17.0 g/dL Low Hemoglobin,Total,A 10.9 CL LAB HCTB 39.0-51.0 % Hematocrit, Low ACL 34 LAB IC 1.08-1.30 mmol/L Calcium, Ion, WB 1.21 LAB GLB 60-105 mg/dL Glucose,Whole High Bld 136 LAB LACT 0.5-2.2 mmol/L Lactate High 2.6 LAB ACBDTE Notify Date, Art [id number] LAB ACBTME Notify Time, Art Performed By: #### ALLBG #### [facility] [address] [place], [place] [address] GASA + ALL Collected: 10/09/2017 Status: F Source: [place] FOR 9:54 AM [facility] USE ONLY REPOSITORY TYPE CODE TESTS RESULT OUT OF REFERENCE UNITS RANGE LAB PH 7.35-7.45 pH 7.39 LAB PCO2 34-46 mm Hg pCO2 46 LAB PO2 85-95 mm Hg pO2 High 108 LAB BE mmol/L Base Excess 3 LAB HCO3 22-26 mmol/L Bicarbonate High 27 LAB CO2CT 22.0-28.0 mmol/L CO2 Content High 29 LAB O2HB 95-98 % Oxyhemoglobin, High Art. 99 LAB COHB 0-5.0 % Carboxyhemoglobin,A 0.2 rt LAB MHGB 0.4-1.5 % Methemoglobin Low 0.1 LAB TEMP C Temperature, Body 37.0 LAB PHTC 7.35-7.45 pH, Temp Corrected 7.39 LAB PCO2T 34-46 mm Hg pCO2, Temp Correct 46 LAB PO2T mm Hg pO2, Temp Corrected 108 LAB NAB 135-146 mmol/L Sodium,Whole Bld 141 LAB KWB 3.5-5.0 mmol/L Potassium, Whole Bld 4.2 LAB HGBB 13.0-17.0 g/dL Low Hemoglobin,Total,AC 10.5 L LAB HCTB 39.0-51.0 % Hematocrit, ACL Low 33 LAB IC 1.08-1.30 mmol/L Calcium, Ion, WB 1.24 LAB GLB 60-105 mg/dL Glucose,Whole Bld High 115 LAB LACT 0.5-2.2 mmol/L Lactate High 2.6 Performed By: #### ALLBG #### [facility] [address] [place], [place] [address] GASV + ALL Collected: 10/09/2017 Status: F Source: [place] 9:53 AM [facility] REPOSITORY TYPE CODE TESTS RESULT OUT OF REFERENCE UNITS RANGE LAB VPH 7.32-7.42 pH 7.34 LAB VPC2 42-55 mm Hg pCO2 55 LAB VPO2 35-45 mm Hg pO2 38 LAB VBE mmol/L Base Excess 3 LAB VHC3 24-28 mmol/L Bicarbonate High 29 LAB VC2C 25-29 mmol/L CO2 Content High 31 LAB O2HBCX 60-85 % Oxyhemoglobin, Willi. 67 LAB CO <2.0 % Carboxyhemoglobin,V 0.6 en LAB METHB 0.4-1.5 % Methemoglobin 0.9 LAB VTMP C Temperature, Body 37.0 LAB VPHTC 7.32-7.42 pH, Temp Corrected 7.34 LAB VPC2T mm Hg pCO2, Temp Correct 55 LAB VPO2T mm Hg pO2, Temp Corrected 38 LAB NAB 135-146 mmol/L Sodium,Whole Bld 141 LAB KWB 3.5-5.0 mmol/L Potassium, Whole Bld 4.0 LAB HGBB 13.0-17.0 g/dL Low Hemoglobin,Total,AC 10.6 L LAB HCTB 39.0-51.0 % Hematocrit, ACL Low 33 LAB IC 1.08-1.30 mmol/L Calcium, Ion, WB 1.23 LAB GLB 60-105 mg/dL Glucose,Whole Bld High 114 LAB LACT 0.5-2.2 mmol/L Lactate High 2.3 Performed By: #### VALLBG #### [facility] [address] [place], [place] [address] PROGRESS Observed: 10/09/2017 Status: COMPLETED Source: [place] 9:35 AM [facility] REPOSITORY HNO ID: [id number] Author: Jose David Mackay Service: Critical Care Author Type: Physician Type: Progress Notes Filed: 10/09/2017 9:41 AM Note Text: [facility] CV[facility] Note Name: Jose Gustafson COORDINATION OF CARE NOTE: Indication for Surgery: Spontaneous Rupture of Aorta LVEF: Normal RVF: Normal Important/Relevant PMH/PSH: HTN, asthma, hx kidney stones Preoperative Hospital Course (narrative): 52 yo M with PMH HTN, Asthma, and hx of kidney stones who is transferred to [facility] for 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 Procedure/Surgeries: 10/08/2017 Total arch replacement with FET under [facility]CA 10/08/2017 Chest exploration / Evacuation of hematoma / Open chest with wound vac Airway Difficulty: Grade I - No special instrumentation OR Course: Transient or mild hypotension and Coagulopathy/bleeding Pacing wires: Yes: Ventricular: When discontinuing pacing wires: Cut all pacing wires Postoperative Course/General Impression: (narrative or log of major events with date of onset): Arrived to CVICU intubated, and sedated, on iVeletri, open chest, maintain overnight, plan to go back to OR later today for possible closure. Coagulopathy/bleeding intraop, transfused multiple blood products in OR, transfuse postop as needed. Hypotensive intraop, arrived on 4mcg Levo and 0.02 Vaso. The patient continued to bleed overnight and went back to the OR the following morning and large amount of clots were removed but no active bleeding. Issues to communicate at signout: 10/09/2017 OPEN CHEST - s/p chest exploration Volume resuscitation, monitor lactate Titrate NE/Vaso for MAP > 65 Wean iVeletri for mPAP < 30 Gentle diuresis OTHER PROBLEMS I MANAGED DURING THIS ENCOUNTER: Problem Hypoxia 10/08/2017 PEEP therapy, wean FiO2. 10/09 On vent with 50% FIO2 - cont with open chest Postoperative Hypotension A/P: Arrived to CVICU on 4mcg Levo and 0.02 Vaso, wean as able to goal MAP 65-75. 10/09 Increased support with epi, levo, vaso, phenyl -wean as able for MAP > 65 Lactic Acid Acidosis Volume resuscitation. 10/09 Lactate mildly elevated, following - has been adeq vol resuscitated - wean pressors as tolerated Coagulopathy (Hcc) A/P: Coagulopathy/bleeding intraop, transfused 10 FFP, 8 PRBC, 6 platelets, 4 cryo in OR. Since arrival at 0100, have transfused 6 FFP, 8 PRBC, 3 platelets, 2 cryo. F/u coags, 2 platelets given in OR for washout. 10/09 plts 99k, coags stable - follow Acute Blood Loss Anemia A/P: H/H 02/16 on arrival, received 8 PRBC intraop, transfuse 2 units on arrival, monitor and transfuse as needed. 10/08/2017 Transfuse for HCT >= 27%. 10/09/17 Currently stable at 05/27 - follow Acute Kidney Injury (Hcc) Cr elevated from baseline of .89 to 2.16 Will diurese gently as tolerated. Follow Cr and lytes PHYSICAL EXAM AND PERTINENT DATA: Neuro: Sedation Pain Control : Is pain control adequate: Yes Cardiovascular: Rhythm: paced and Rate:paced, 80 HR: 80 SpO2: 98 Temperature: afebrile MAP: 71 mmHg CVP: 15 mmHg PAP: 35/15 mmHg Cardiac Index: 2.6 L/min/m2 Aortic arch or descending aortic repair: Yes Recent Labs 10/09/17 0003 10/07/17 1415 TROPT 1.770* <0.010 Pulmonary: Clear to auscultation and Breath sounds equal Ventilator: Intubated: PCV; FiO2: 50; PEEP: 10 cmH2O; PSV; HOB elevated 40 degrees: Yes; Oral care with chlorhexidine: Yes; Was sedation turned off? Yes Recent Labs 10/09/17 0759 10/09/17 0606 10/09/17 0410 PH 7.44 7.44 7.37 PO2 128* 86 110* PCO2 39 40 48* HCO3 26 26 27* O2HB 97 95 96 CXR Findings: Atelectasis Bilateral and Increased Vascular Markings Bilateral Gastrointestinal: Abdominal: Soft Recent Labs 10/09/17 0003 10/08/17 0105 10/07/17 1415 TPROT 4.9* 4.3* 5.0* ALB 2.9* 2.6* 3.0* MG -- -- 2.0 CA 8.8 9.8 7.7* ALKPHOS 30* 28* 54 TBILI 1.5* 1.5* 1.1 AST 160* 205* 11* ALT 123* 178* 14 Heme: Recent Labs 10/09/17 0740 10/09/17 0003 10/08/17 1710 10/08/17 1135 HB 10.3* 9.8* 9.8* 9.2* HCT 29.7* 28.5* 27.6* 25.9* PLT 99* 147* 188 158 PTSEC 12.5 -- 12.1 12.2 INR 1.2 -- 1.2 1.2 APTT 39.2* -- 31.3 32.3 Recent Labs 10/09/17 0740 10/09/17 0003 10/08/17 1710 WBC 11.20* 10.38 9.26 Renal: Worsening and CASSIUS Recent Labs 10/09/17 0755 10/09/17 0741 10/09/17 0609 10/09/17 0003 10/08/17 0105 10/07/17 1415 NA -- -- -- -- 143 -- 152* -- 138 K -- -- -- -- 4.7 -- 3.4* -- 4.6 CHLOR -- -- -- -- 100 -- 104 -- 105 CO2 Duplicate request Duplicate request 31* 30* < > 26 < > 30 < > 21* CREAT -- -- -- -- 2.16* -- 1.52* -- 1.22 BUN -- -- -- -- 21 -- 13 -- 14 GLUC -- -- -- -- 191* -- 82 -- 153* P -- -- -- -- -- -- -- -- 1.8* MG -- -- -- -- -- -- -- -- 2.0 CA -- -- -- -- 8.8 -- 9.8 -- 7.7* < > = values in this interval not displayed. DAILY CVICU CHECKLIST VTE Prophylaxis: Pharmacologic No - because bleeding risk VTE Prophylaxis: Mechanical: Yes Line infection prevention: Can CVC, PAC or arterial line be removed: No Continued need for urinary catheter: Yes - clinical indication: Patient post major surgery requiring fluid balance and input and output measurement. This patient has a high probability of sudden, clinically significant deterioration, which requires the highest level of preparedness to intervene urgently. I participated in the decision making and personally managed or directed the management of the following life and organ supporting interventions that required my frequent assessment to treat or prevent imminent deterioration of: Cardiac Insufficiency and Hypotension that I treated with inotropes and vasopressors Atelectasis, Hypoxemia / Increased O2 requirements and open chest that I treated with mechanical ventilation, management of FiO2 and PEEP CASSIUS that I treated with optimization of electrolytes, blood pressure and blood volume and diuretics I discussed the plan of care with the care team I personally spent 45 minutes of critical care time treating the patient. Time devoted to any procedures I billed separately is not included. SIGNATURE: JOSE DAVID MACKAY MD DATE of SERVICE: 10/09/2017 TIME of SERVICE: 9:35 AM GASA + ALL Collected: 10/09/2017 Status: F Source: [facility] 7:59 AM [facility] RADIANCE USE ONLY REPOSITORY TYPE CODE TESTS RESULT OUT OF REFERENCE UNITS RANGE LAB PH 7.35-7.45 pH 7.44 LAB PCO2 34-46 mm Hg pCO2 39 LAB PO2 85-95 mm Hg pO2 High 128 LAB BE mmol/L Base Excess 2 LAB HCO3 22-26 mmol/L Bicarbonate 26 LAB CO2CT 22.0-28.0 mmol/L CO2 Content 27 LAB O2HB 95-98 % Oxyhemoglobin, Art. 97 LAB COHB 0-5.0 % Carboxyhemoglobin,A 0.7 rt LAB MHGB 0.4-1.5 % Methemoglobin 1.3 LAB TEMP C Temperature, Body 37.0 LAB PHTC 7.35-7.45 pH, Temp Corrected 7.44 LAB PCO2T 34-46 mm Hg pCO2, Temp Correct 39 LAB PO2T mm Hg pO2, Temp Corrected 128 LAB NAB 135-146 mmol/L Sodium,Whole Bld 139 LAB KWB 3.5-5.0 mmol/L Potassium, Whole Bld 4.1 LAB HGBB 13.0-17.0 g/dL Low Hemoglobin,Total,AC 10.4 L LAB HCTB 39.0-51.0 % Hematocrit, ACL Low 32 LAB IC 1.08-1.30 mmol/L Calcium, Ion, WB 1.23 LAB GLB 60-105 mg/dL Glucose,Whole Bld High 144 LAB LACT 0.5-2.2 mmol/L Lactate High 3.4 Performed By: #### ALLBG #### [facility] [address] [place], [place] [address] GASV + ALL Collected: 10/09/2017 Status: C Source: [place] 7:55 AM [facility] REPOSITORY TYPE CODE TESTS RESULT OUT OF REFERENCE UNITS RANGE LAB VPH 7.32-7.42 pH Duplicate request Result Comment: Account Credited Corrected on 10/09 AT 0834: Previously reported as 7.39 LAB VPC2 42-55 mm Hg Duplicate pCO2 request Result Comment: Account Credited Corrected on 10/09 AT 0834: Previously reported as 47 LAB VPO2 35-45 mm Hg Duplicate pO2 request Result Comment: Account Credited Corrected on 10/09 AT 0834: Previously reported as 47 LAB VBE mmol/L Duplicate Base Excess request Result Comment: Account Credited Corrected on 10/09 AT 0834: Previously reported as 3 LAB VHC3 24-28 mmol/L Bicarbonate Duplicate request Result Comment: Account Credited Corrected on 10/09 AT 0834: Previously reported as 28 LAB VC2C 25-29 mmol/L CO2 Content Duplicate request Result Comment: Account Credited Corrected on 10/09 AT 0834: Previously reported as 29 LAB O2HBCX 60-85 % Oxyhemoglobin, Willi. Duplicate request Result Comment: Account Credited Corrected on 10/09 AT 0834: Previously reported as 82 LAB CO <2.0 % Carboxyhemoglobin,Willi Duplicate request Result Comment: Account Credited Corrected on 10/09 AT 0834: Previously reported as 0.8 LAB METHB 0.4-1.5 % Methemoglobin Duplicate request Result Comment: Account Credited Corrected on 10/09 AT 0834: Previously reported as 1.3 LAB VTMP C Temperature, Body Duplicate request Result Comment: Account Credited Corrected on 10/09 AT 0834: Previously reported as 37.0 LAB VPHTC 7.32-7.42 pH, Temp Corrected Duplicate request Result Comment: Account Credited Corrected on 10/09 AT 0834: Previously reported as 7.39 LAB VPC2T mm Hg pCO2, Duplicate Temp Correct request Result Comment: Account Credited Corrected on 10/09 AT 0834: Previously reported as 47 LAB VPO2T mm Hg pO2, Temp Duplicate Corrected request Result Comment: Account Credited Corrected on 10/09 AT 0834: Previously reported as 47 LAB NAB 135-146 mmol/L Sodium,Whole Bld Duplicate request Result Comment: Account Credited Corrected on 10/09 AT 0834: Previously reported as 140 LAB KWB 3.5-5.0 mmol/L Potassium, Whole Bld Duplicate request Result Comment: Account Credited Corrected on 10/09 AT 0834: Previously reported as 4.1 LAB HGBB 13.0-17.0 g/dL Hemoglobin,Total,ACL Duplicate request Result Comment: Account Credited Corrected on 10/09 AT 0834: Previously reported as 10.6 LAB HCTB 39.0-51.0 % Hematocrit, ACL Duplicate request Result Comment: Account Credited Corrected on 10/09 AT 0834: Previously reported as 33 LAB IC 1.08-1.30 mmol/L Calcium, Ion, Duplicate WB request Result Comment: Account Credited Corrected on 10/09 AT 0834: Previously reported as 1.25 LAB GLB 60-105 mg/dL Glucose,Whole Bld Duplicate request Result Comment: Account Credited Corrected on 10/09 AT 0834: Previously reported as 143 LAB LACT 0.5-2.2 mmol/L Lactate Duplicate request Result Comment: Account Credited Corrected on 10/09 AT 0834: Previously reported as 3.3 LAB VOAD O2 Administered Duplicate request Result Comment: Account Credited LAB VBGCOM Duplicate Blood Gas request Comm, Willi Result Comment: Account Credited LAB VCBWHO Notified Duplicate Whom, Willi request Result Comment: Account Credited LAB VCBDTE Duplicate Notify Date, request Willi Result Comment: Account Credited LAB VCBTME Duplicate Notify Time, request Willi Result Comment: Account Credited Performed By: #### VALLBG #### [facility] [address] [place] [id number] GASV + ALL Collected: 10/09/2017 Status: F Source: [place] 7:41 AM [facility] REPOSITORY TYPE CODE TESTS RESULT OUT OF REFERENCE UNITS RANGE LAB VPH 7.32-7.42 pH 7.39 LAB VPC2 42-55 mm Hg pCO2 50 LAB VPO2 35-45 mm Hg pO2 Low 34 LAB VBE mmol/L Base Excess 4 LAB VHC3 24-28 mmol/L Bicarbonate High 30 LAB VC2C 25-29 mmol/L CO2 Content High 31 LAB O2HBCX 60-85 % Oxyhemoglobin, Willi. 63 LAB CO <2.0 % Carboxyhemoglobin,V 0.8 en LAB METHB 0.4-1.5 % Methemoglobin 1.2 LAB VTMP C Temperature, Body 37.0 LAB VPHTC 7.32-7.42 pH, Temp Corrected 7.39 LAB VPC2T mm Hg pCO2, Temp Correct 50 LAB VPO2T mm Hg pO2, Temp Corrected 34 LAB NAB 135-146 mmol/L Sodium,Whole Bld 142 LAB KWB 3.5-5.0 mmol/L Potassium, Whole Bld 4.2 LAB HGBB 13.0-17.0 g/dL Low Hemoglobin,Total,AC 10.6 L LAB HCTB 39.0-51.0 % Hematocrit, ACL Low 33 LAB IC 1.08-1.30 mmol/L Calcium, Ion, WB 1.27 LAB GLB 60-105 mg/dL Glucose,Whole Bld High 147 LAB LACT 0.5-2.2 mmol/L Lactate High 3.0 Performed By: #### VALLBG #### [facility] [address] [place] [address] GASV + ALL Collected: 10/09/2017 Status: C Source: [place] 7:41 AM [facility] REPOSITORY TYPE CODE TESTS RESULT OUT OF REFERENCE UNITS RANGE LAB VPH 7.32-7.42 pH Duplicate request Result Comment: Account Credited Corrected on 10/09 AT 0834: Previously reported as 7.39 LAB VPC2 42-55 mm Hg Duplicate pCO2 request Result Comment: Account Credited Corrected on 10/09 AT 0834: Previously reported as 50 LAB VPO2 35-45 mm Hg Duplicate pO2 request Result Comment: Account Credited Corrected on 10/09 AT 0834: Previously reported as 34 LAB VBE mmol/L Duplicate Base Excess request Result Comment: Account Credited Corrected on 10/09 AT 0834: Previously reported as 4 LAB VHC3 24-28 mmol/L Bicarbonate Duplicate request Result Comment: Account Credited Corrected on 10/09 AT 0834: Previously reported as 30 LAB VC2C 25-29 mmol/L CO2 Content Duplicate request Result Comment: Account Credited Corrected on 10/09 AT 0834: Previously reported as 31 LAB O2HBCX 60-85 % Oxyhemoglobin, Willi. Duplicate request Result Comment: Account Credited Corrected on 10/09 AT 0834: Previously reported as 63 LAB CO <2.0 % Carboxyhemoglobin,Willi Duplicate request Result Comment: Account Credited Corrected on 10/09 AT 0834: Previously reported as 0.8 LAB METHB 0.4-1.5 % Methemoglobin Duplicate request Result Comment: Account Credited Corrected on 10/09 AT 0834: Previously reported as 1.2 LAB VTMP C Temperature, Body Duplicate request Result Comment: Account Credited Corrected on 10/09 AT 0834: Previously reported as 37.0 LAB VPHTC 7.32-7.42 pH, Temp Corrected Duplicate request Result Comment: Account Credited Corrected on 10/09 AT 0834: Previously reported as 7.39 LAB VPC2T mm Hg pCO2, Duplicate Temp Correct request Result Comment: Account Credited Corrected on 10/09 AT 0834: Previously reported as 50 LAB VPO2T mm Hg pO2, Temp Duplicate Corrected request Result Comment: Account Credited Corrected on 10/09 AT 0834: Previously reported as 34 LAB NAB 135-146 mmol/L Sodium,Whole Bld Duplicate request Result Comment: Account Credited Corrected on 10/09 AT 0834: Previously reported as 142 LAB KWB 3.5-5.0 mmol/L Potassium, Whole Bld Duplicate request Result Comment: Account Credited Corrected on 10/09 AT 0834: Previously reported as 4.2 LAB HGBB 13.0-17.0 g/dL Hemoglobin,Total,ACL Duplicate request Result Comment: Account Credited Corrected on 10/09 AT 0834: Previously reported as 10.6 LAB HCTB 39.0-51.0 % Hematocrit, ACL Duplicate request Result Comment: Account Credited Corrected on 10/09 AT 0834: Previously reported as 33 LAB IC 1.08-1.30 mmol/L Calcium, Ion, Duplicate WB request Result Comment: Account Credited Corrected on 10/09 AT 0834: Previously reported as 1.27 LAB GLB 60-105 mg/dL Glucose,Whole Bld Duplicate request Result Comment: Account Credited Corrected on 10/09 AT 0834: Previously reported as 147 LAB LACT 0.5-2.2 mmol/L Lactate Duplicate request Result Comment: Account Credited Corrected on 10/09 AT 0834: Previously reported as 3.0 LAB VOAD O2 Administered Duplicate request Result Comment: Account Credited LAB VBGCOM Duplicate Blood Gas request Comm, Willi Result Comment: Account Credited LAB VCBWHO Notified Duplicate Whom, Willi request Result Comment: Account Credited LAB VCBDTE Duplicate Notify Date, request Willi Result Comment: Account Credited LAB VCBTME Duplicate Notify Time, request Willi Result Comment: Account Credited Performed By: #### VALLBG #### [facility] [address] [place], [place] [address] FIBRINOGEN Collected: 10/09/2017 Status: F Source: [place] 7:40 AM [facility] REPOSITORY TYPE CODE TESTS RESULT OUT OF REFERENCE UNITS RANGE LAB FIBCT 200-400 mg/dL High Fibrinogen 449 Performed By: #### FIBCT, PT, PTT, CBC #### [facility] [address] [place], [place] [address] PROTIME Collected: 10/09/2017 Status: F Source: [place] 7:40 AM [facility] REPOSITORY TYPE CODE TESTS RESULT OUT OF RANGE REFERENCE UNITS LAB PSEC 9.7-13.0 sec PT Sec 12.5 LAB INR 0.9-1.3 PT INR 1.2 Result Comment: Vitamin K Antagonist (VKA) Therapeutic Range: INR 2 to 3 (Target INR of 2.5) Note: For patients treated with VKA drugs, such as warfarin, the [place] [employer] 2012 Guideline recommends a therapeutic INR range of 2 to 3 (target INR of 2.5). This recommendation includes high-risk patients with antiphospholipid syndrome with previous arterial or venous thromboembolism, current-generation mechanical or bioprosthetic aortic heart valve replacement. Note: Patients with mechanical aortic valve replacement and additional risk factors for thromboembolic events (atrial fibrillation, previous thromboembolism, LV dysfunction, hypercoagulable conditions) or an older generation mechanical AVR (i.e., ball in-Cage) or any mechanical MVR should have a INR therapeutic range of 2.5 to 3.5 (target INR of 3). Phi GH, et al. Chest 2012, 141:7S-47S Regis RA, et al. [facility] 2017, 70: 252-289 Performed By: #### FIBCT, PT, PTT, CBC #### [facility] [address] [place], [place] [address] APTT Collected: 10/09/2017 Status: F Source: [place] 7:40 AM [facility] REPOSITORY TYPE CODE TESTS RESULT OUT OF RANGE REFERENCE UNITS LAB APTT 23.0-32.4 sec High APTT 39.2 Result Comment: Unfractionated Heparin Therapeutic Ranges: Standard Heparin Nomogram: 53 to 78 seconds (anti-Xa level of 0.3 to 0.7 U/ml) Low Dose/ACS Nomogram: 49 to 67 seconds (anti-Xa level of 0.2 to 0.5 U/ml) Stroke Treatment Nomogram: 49 to 67 seconds (anti-Xa level of 0.2 to 0.5 U/ml) Note: The APTT therapeutic range has been determined for the current lot of laboratory APTT reagent in use throughout the [facility]. Performed By: #### FIBCT, PT, PTT, CBC #### [facility] [address] [place], [place] [address] CBC Collected: 10/09/2017 Status: F Source: [place] 7:40 AM [facility] REPOSITORY TYPE CODE TESTS RESULT OUT OF REFERENCE UNITS RANGE LAB WBC 3.70-11.00 k/uL WBC High 11.20 LAB RBC 4.20-6.00 m/uL Low RBC 3.41 LAB HGB 13.0-17.0 g/dL Low Hemoglobin 10.3 LAB HCT 39.0-51.0 % Low Hematocrit 29.7 LAB MCV 80.0-100.0 fL MCV 87.1 LAB MCH 26.0-34.0 pG MCH 30.2 LAB MCHC 30.5-36.0 g/dL MCHC 34.7 LAB RDWCV 11.5-15.0 % RDW-CV High 15.1 LAB PLTCT 150-400 k/uL Low Platelet Count 99 Result Comment: No clot detected. LAB MPV 9.0-12.7 fL MPV 10.8 LAB ABSNUC <0.01 k/uL Absolute nRBC <0.01 Performed By: #### FIBCT, PT, PTT, CBC #### [facility] [address] [place], [place] [address] GASV + ALL Collected: 10/09/2017 Status: F Source: [place] 6:09 AM [facility] REPOSITORY TYPE CODE TESTS RESULT OUT OF REFERENCE UNITS RANGE LAB VPH 7.32-7.42 pH 7.39 LAB VPC2 42-55 mm Hg pCO2 48 LAB VPO2 35-45 mm Hg pO2 Low 34 LAB VBE mmol/L Base Excess 3 LAB VHC3 24-28 mmol/L Bicarbonate 28 LAB VC2C 25-29 mmol/L CO2 Content High 30 LAB O2HBCX 60-85 % Oxyhemoglobin, Willi. 63 LAB CO <2.0 % Carboxyhemoglobin,V 0.5 en LAB METHB 0.4-1.5 % Methemoglobin 1.0 LAB VTMP C Temperature, Body 37.0 LAB VPHTC 7.32-7.42 pH, Temp Corrected 7.39 LAB VPC2T mm Hg pCO2, Temp Correct 48 LAB VPO2T mm Hg pO2, Temp Corrected 34 LAB NAB 135-146 mmol/L Sodium,Whole Bld 143 LAB KWB 3.5-5.0 mmol/L Potassium, Whole Bld 4.4 LAB HGBB 13.0-17.0 g/dL Low Hemoglobin,Total,AC 10.8 L LAB HCTB 39.0-51.0 % Hematocrit, ACL Low 33 LAB IC 1.08-1.30 mmol/L Calcium, Ion, WB High 1.32 LAB GLB 60-105 mg/dL Glucose,Whole Bld High 152 LAB LACT 0.5-2.2 mmol/L Lactate High 3.4 Performed By: #### VALLBG #### [facility] [address] [place], [place] [address] GASA + ALL Collected: 10/09/2017 Status: F Source: [place] FOR 6:06 AM [facility] RADIANCE USE ONLY REPOSITORY TYPE CODE TESTS RESULT OUT OF REFERENCE UNITS RANGE LAB PH 7.35-7.45 pH 7.44 LAB PCO2 34-46 mm Hg pCO2 40 LAB PO2 85-95 mm Hg pO2 86 LAB BE mmol/L Base Excess 3 LAB HCO3 22-26 mmol/L Bicarbonate 26 LAB CO2CT 22.0-28.0 mmol/L CO2 Content 28 LAB O2HB 95-98 % Oxyhemoglobin, Art. 95 LAB COHB 0-5.0 % Carboxyhemoglobin,A 0.5 rt LAB MHGB 0.4-1.5 % Methemoglobin 1.1 LAB TEMP C Temperature, Body 37.0 LAB PHTC 7.35-7.45 pH, Temp Corrected 7.44 LAB PCO2T 34-46 mm Hg pCO2, Temp Correct 40 LAB PO2T mm Hg pO2, Temp Corrected 86 LAB NAB 135-146 mmol/L Sodium,Whole Bld 143 LAB KWB 3.5-5.0 mmol/L Potassium, Whole Bld 4.4 LAB HGBB 13.0-17.0 g/dL Low Hemoglobin,Total,AC 10.8 L LAB HCTB 39.0-51.0 % Hematocrit, ACL Low 33 LAB IC 1.08-1.30 mmol/L Calcium, Ion, WB 1.29 LAB GLB 60-105 mg/dL Glucose,Whole Bld High 150 LAB LACT 0.5-2.2 mmol/L Lactate High 3.5 Performed By: #### ALLBG #### [facility] [address], [place] [address] GASV + ALL Collected: 10/09/2017 Status: F Source: [place] 4:14 AM [facility] REPOSITORY TYPE CODE TESTS RESULT OUT OF REFERENCE UNITS RANGE LAB VPH 7.32-7.42 pH 7.33 LAB VPC2 42-55 mm Hg pCO2 High 56 LAB VPO2 35-45 mm Hg pO2 37 LAB VBE mmol/L Base Excess 3 LAB VHC3 24-28 mmol/L Bicarbonate High 29 LAB VC2C 25-29 mmol/L CO2 Content High 30 LAB O2HBCX 60-85 % Oxyhemoglobin, Willi. 62 LAB CO <2.0 % Carboxyhemoglobin,V 0.9 en LAB METHB 0.4-1.5 % Methemoglobin 1.1 LAB VTMP C Temperature, Body 37.0 LAB VPHTC 7.32-7.42 pH, Temp Corrected 7.33 LAB VPC2T mm Hg pCO2, Temp Correct 56 LAB VPO2T mm Hg pO2, Temp Corrected 37 LAB NAB 135-146 mmol/L Sodium,Whole Bld 142 LAB KWB 3.5-5.0 mmol/L Potassium, Whole Bld 4.3 LAB HGBB 13.0-17.0 g/dL Low Hemoglobin,Total,AC 9.6 L LAB HCTB 39.0-51.0 % Hematocrit, ACL Low 30 LAB IC 1.08-1.30 mmol/L Calcium, Ion, WB 1.25 LAB GLB 60-105 mg/dL Glucose,Whole Bld High 155 LAB LACT 0.5-2.2 mmol/L Lactate High 3.7 Performed By: #### VALLBG #### [facility] [address] [place], [place] [address] GASA + ALL Collected: 10/09/2017 Status: F Source: [place] FOR 4:10 AM [facility] RADIANCE USE ONLY REPOSITORY TYPE CODE TESTS RESULT OUT OF REFERENCE UNITS RANGE LAB PH 7.35-7.45 pH 7.37 LAB PCO2 34-46 mm Hg pCO2 High 48 LAB PO2 85-95 mm Hg pO2 High 110 LAB BE mmol/L Base Excess 2 LAB HCO3 22-26 mmol/L Bicarbonate High 27 LAB CO2CT 22.0-28.0 mmol/L CO2 Content 28 LAB O2HB 95-98 % Oxyhemoglobin, Art. 96 LAB COHB 0-5.0 % Carboxyhemoglobin,A 1.3 rt LAB MHGB 0.4-1.5 % Methemoglobin 1.1 LAB TEMP C Temperature, Body 37.0 LAB PHTC 7.35-7.45 pH, Temp Corrected 7.37 LAB PCO2T 34-46 mm Hg pCO2, Temp High Correct 48 LAB PO2T mm Hg pO2, Temp Corrected 110 LAB NAB 135-146 mmol/L Sodium,Whole Bld 141 LAB KWB 3.5-5.0 mmol/L Potassium, Whole Bld 4.3 LAB HGBB 13.0-17.0 g/dL Low Hemoglobin,Total,AC 9.6 L LAB HCTB 39.0-51.0 % Hematocrit, ACL Low 30 LAB IC 1.08-1.30 mmol/L Calcium, Ion, WB 1.25 LAB GLB 60-105 mg/dL Glucose,Whole Bld High 157 LAB LACT 0.5-2.2 mmol/L Lactate High 3.9 Performed By: #### ALLBG #### [facility] [address] [place], [place] [address] XR ABDOMEN 1V SUPINE Observed: 10/09/2017 Status: F Source: [place] 2:56 AM [facility] REPOSITORY * * *Final Report* * * DATE OF EXAM: Oct 09 2017 2:56AM IVANNA [id number] - XR ABDOMEN 1V SUPINE / PROCEDURE REASON: Lactic acidosis * * * * Physician Interpretation * * * * PORTABLE SUPINE ABDOMEN 10/09/2017 2:56 AM HISTORY: Lactic acidosis TECHNIQUE: 1 supine abdominal film(s). IMPRESSION: There is no dilated small bowel or colon. Nasogastric tube terminates in the fundus. Chest tubes and mediastinal drains overlie the abdomen. Silver Wrapper: AMY Transcribe Date/Time: Oct 09 2017 8:40A Dictated by : ESTHER CROW MD This examination was interpreted and the report reviewed and electronically signed by: ESTHER CROW MD on Oct 09 2017 8:40AM EST [id number] XR CHEST 1V FRONTAL Observed: 10/09/2017 Status: F Source: [facility] 2:56 AM [facility] [place] REPOSITORY * * *Final Report* * * DATE OF EXAM: Oct 09 2017 2:56AM JIX [id number] - XR CHEST 1V FRONTAL PORT / PROCEDURE REASON: Postoperative state * * * * Physician Interpretation * * * * EXAMINATION: CHEST RADIOGRAPH (PORTABLE SINGLE VIEW AP) Exam Date/Time: 10/09/2017 2:56 AM Indication: Postoperative state MQ: XCP_4 Comparison: 1 day prior RESULT: See impression. IMPRESSION: Lines, tubes, and devices: There has been median sternotomy with sternal supervisor line department in place. Also noted are radiopaque sponges overlying the chest. Endotracheal tube, NG/OG tube, right pulmonary arterial catheter, mediastinal drains and bilateral chest tubes are in place. The tip of the pulmonary arterial catheter is not seen. Endovascular stent graft has been placed in the descending thoracic aorta. Lungs and pleura: Patchy reticular opacities are noted, likely related to pulmonary edema. Small right and trace left pleural effusions are noted. Biapical pleural thickening/fluid is noted. No pneumothorax. Cardiomediastinal silhouette: Cardiomediastinal silhouette is mildly enlarged. Other: Small amount of subcutaneous emphysema is noted bilaterally. Surgical clips are noted in the right axilla. Silver Wrapper: [facility] Transcribe Date/Time: Oct 09 2017 8:52A Dictated by : EFREN RAMIREZ MD This examination was interpreted and the report reviewed and electronically signed by: EFREN RAMIREZ MD on Oct 09 2017 8:53AM EST [id number] + ALL Collected: 10/09/2017 Status: F Source: [place] 1:30 AM [facility] REPOSITORY TYPE CODE TESTS RESULT OUT OF REFERENCE UNITS RANGE LAB VPH 7.32-7.42 pH 7.34 LAB VPC2 42-55 mm Hg pCO2 55 LAB VPO2 35-45 mm Hg pO2 38 LAB VBE mmol/L Base Excess 3 LAB VHC3 24-28 mmol/L Bicarbonate High 29 LAB VC2C 25-29 mmol/L CO2 Content High 31 LAB O2HBCX 60-85 % Oxyhemoglobin, Willi. 66 LAB CO <2.0 % Carboxyhemoglobin,V 0.9 en LAB METHB 0.4-1.5 % Methemoglobin 1.0 LAB VTMP C Temperature, Body 37.0 LAB VPHTC 7.32-7.42 pH, Temp Corrected 7.34 LAB VPC2T mm Hg pCO2, Temp Correct 55 LAB VPO2T mm Hg pO2, Temp Corrected 38 LAB NAB 135-146 mmol/L Sodium,Whole Bld 141 LAB KWB 3.5-5.0 mmol/L Potassium, Whole Bld 4.5 LAB HGBB 13.0-17.0 g/dL Low Hemoglobin,Total,AC 10.1 L LAB HCTB 39.0-51.0 % Hematocrit, ACL Low 31 LAB IC 1.08-1.30 mmol/L Calcium, Ion, WB 1.25 LAB GLB 60-105 mg/dL Glucose,Whole Bld High 168 LAB LACT 0.5-2.2 mmol/L Lactate High 5.1 Performed By: #### VALLBG #### [facility] [address] [place] [id number] GASA + ALL Collected: 10/09/2017 Status: F Source: [place] FOR 1:28 AM [facility] RADIANCE USE ONLY REPOSITORY TYPE CODE TESTS RESULT OUT OF REFERENCE UNITS RANGE LAB PH 7.35-7.45 pH 7.38 LAB PCO2 34-46 mm Hg pCO2 High 47 LAB PO2 85-95 mm Hg pO2 High 106 LAB BE mmol/L Base Excess 2 LAB HCO3 22-26 mmol/L Bicarbonate High 27 LAB CO2CT 22.0-28.0 mmol/L CO2 Content High 29 LAB O2HB 95-98 % Oxyhemoglobin, Art. 96 LAB COHB 0-5.0 % Carboxyhemoglobin,A 1.1 rt LAB MHGB 0.4-1.5 % Methemoglobin 0.8 LAB TEMP C Temperature, Body 37.0 LAB PHTC 7.35-7.45 pH, Temp Corrected 7.38 LAB PCO2T 34-46 mm Hg pCO2, Temp High Correct 47 LAB PO2T mm Hg pO2, Temp Corrected 106 LAB NAB 135-146 mmol/L Sodium,Whole Bld 139 LAB KWB 3.5-5.0 mmol/L Potassium, Whole Bld 4.4 LAB HGBB 13.0-17.0 g/dL Low Hemoglobin,Total,AC 10.1 L LAB HCTB 39.0-51.0 % Hematocrit, ACL Low 31 LAB IC 1.08-1.30 mmol/L Calcium, Ion, WB 1.25 LAB GLB 60-105 mg/dL Glucose,Whole Bld High 172 LAB LACT 0.5-2.2 mmol/L Lactate High 4.8 Performed By: #### ALLBG #### [place] [id number] [place] [address] STAPH AUREUS PCR Collected: 10/09/2017 Status: F Source: [place] 12:05 AM [facility] REPOSITORY TYPE CODE TESTS RESULT OUT OF REFERENCE UNITS RANGE LAB [facility] Nasal S aureus Spec Source LAB MRSRES Negative for MRSA MRSA by PCR. PCR LAB SARES Negative for Staph Staphylococcus aureus PCR aureus by PCR. Performed By: #### SAPCR #### [place] [address] CBC Collected: 10/09/2017 Status: F Source: [place] 12:03 [facility] REPOSITORY TYPE CODE TESTS RESULT OUT OF REFERENCE UNITS RANGE LAB WBC 3.70-11.00 k/uL WBC 10.38 LAB RBC 4.20-6.00 m/uL Low RBC 3.22 LAB HGB 13.0-17.0 g/dL Low Hemoglobin 9.8 LAB HCT 39.0-51.0 % Low Hematocrit 28.5 LAB MCV 80.0-100.0 fL MCV 88.5 LAB MCH 26.0-34.0 pG MCH 30.4 LAB MCHC 30.5-36.0 g/dL MCHC 34.4 LAB RDWCV 11.5-15.0 % RDW-CV High 15.2 LAB PLTCT 150-400 k/uL Low Platelet Count 147 LAB MPV 9.0-12.7 fL MPV 10.2 LAB ABSNUC <0.01 k/uL Absolute nRBC <0.01 Performed By: #### CBC, CMP, TANK #### [facility] [address] [place], [place] [address] COMP METABOLIC PANEL Collected: 10/09/2017 Status: F Source: [place] 12:03 AM [facility] REPOSITORY TYPE CODE TESTS RESULT OUT OF REFERENCE UNITS RANGE LAB TP 6.3-8.0 g/dL Low Protein, Total 4.9 LAB ALB 3.9-4.9 g/dL Low Albumin 2.9 LAB CA 8.5-10.2 mg/dL Calcium, Total 8.8 LAB TBIL 0.2-1.3 mg/dL Bilirubin, High Total 1.5 LAB ALKP 36-108 U/L Low Alkaline Phosphatase 30 LAB AST 14-40 U/L AST High 160 LAB GLU 74-99 mg/dL Glucose High 191 Result Comment: The [place] [employer] (ADA) provides guidance for cutoff values for fasting glucose and random glucose. The ADA defines fasting as no caloric intake for at least 8 hours. Fas ting plasma glucose results between 100 to 125 mg/dL indicate increased risk for diabetes (prediabetes). Fasting plasma glucose results greater than or equal to 126 mg/dL meet the criteria for diagnosis of diabetes. In the absence of unequivocal hyperglycemia, results should be confirmed by repeat testing. In a patient with classic symptoms of hyperglycemia or hyperglycemic crisis, random plasma glucose results greater than or equal to 200 mg/dL meet the criteria for diagnosis of diabetes. Reference: Standards of Medical Care in Diabetes 2016, [place] [employer]. Diabetes Care. 2016.39(Suppl 1). LAB BUN 9-24 mg/dL BUN 21 LAB CRET 0.73-1.22 mg/dL Creatinine High 2.16 LAB NA 136-144 mmol/L Sodium 143 LAB K 3.7-5.1 mmol/L Potassium 4.7 LAB CL 97-105 mmol/L Chloride 100 LAB CO2 22-30 mmol/L CO2 26 LAB AGAP 9-18 mmol/L Anion Gap 17 LAB ALT 10-54 U/L ALT High 123 LAB GFRAA eGFR- Amer. 39 LAB GFRNAA . eGFR-All Other Races 32 Result Comment: eGFR (Estimated GFR) Units of measure: mL/min/1.73 meters squared eGFR is derived from the reexpressed MDRD Study equation using the following parameters: serum creatinine, age, gender and race. The creatinine assay has been calibrated to be traceable to IDKY. An eGFR <60 mL/min/1.73m2 for >3 months is consistent with chronic kidney disease. Refer to KDOQI guidelines for clinical interpretation. In patients with unstable renal function, e.g. those with acute kidney injury, the eGFR may not accurately reflect actual GFR. Performed By: #### CBC, CMP, TANK #### [facility] [address] [place], [place] [address] TROPONIN T Collected: 10/09/2017 Status: F Source: [place] 12:03 AM [facility] REPOSITORY TYPE CODE TESTS RESULT OUT OF REFERENCE UNITS RANGE LAB TROPT 0.000-0.029 ng/mL High Troponin T 1.770 Result Comment: Called to and read back by: Abel GrossmanRN J64 10/09/2017 0217 by Joe Delgado. Performed By: #### CBC, CMP, TANK #### [facility] [address] [place], [place] [address] GASV + ALL Collected: 10/08/2017 Status: F Source: [place] 11:38 PM [facility] REPOSITORY TYPE CODE TESTS RESULT OUT OF REFERENCE UNITS RANGE LAB VPH 7.32-7.42 pH Low 7.31 LAB VPC2 42-55 mm Hg pCO2 High 56 LAB VPO2 35-45 mm Hg pO2 38 LAB VBE mmol/L Base Excess 1 LAB VHC3 24-28 mmol/L Bicarbonate 28 LAB VC2C 25-29 mmol/L CO2 Content 29 LAB O2HBCX 60-85 % Oxyhemoglobin, Willi. 64 LAB CO <2.0 % Carboxyhemoglobin,V 0.5 en LAB METHB 0.4-1.5 % Methemoglobin 1.1 LAB VTMP C Temperature, Body 37.0 LAB VPHTC 7.32-7.42 pH, Temp Low Corrected 7.31 LAB VPC2T mm Hg pCO2, Temp Correct 56 LAB VPO2T mm Hg pO2, Temp Corrected 38 LAB NAB 135-146 mmol/L Sodium,Whole Bld 144 LAB KWB 3.5-5.0 mmol/L Potassium, Whole Bld 4.6 LAB HGBB 13.0-17.0 g/dL Low Hemoglobin,Total,AC 10.1 L LAB HCTB 39.0-51.0 % Hematocrit, ACL Low 31 LAB IC 1.08-1.30 mmol/L Calcium, Ion, WB High 1.39 LAB GLB 60-105 mg/dL Glucose,Whole Bld High 209 LAB LACT 0.5-2.2 mmol/L Lactate High 5.5 Performed By: #### VALLBG #### [facility] [address] [place], [place] [address] GASA + ALL Collected: 10/08/2017 Status: F Source: [place] FOR 11:36 PM [facility] RADIANCE USE ONLY REPOSITORY TYPE CODE TESTS RESULT OUT OF REFERENCE UNITS RANGE LAB PH 7.35-7.45 pH 7.37 LAB PCO2 34-46 mm Hg pCO2 44 LAB PO2 85-95 mm Hg pO2 High 132 LAB BE mmol/L Base Excess 1 LAB HCO3 22-26 mmol/L Bicarbonate 25 LAB CO2CT 22.0-28.0 mmol/L CO2 Content 27 LAB O2HB 95-98 % Oxyhemoglobin, Art. 97 LAB COHB 0-5.0 % Carboxyhemoglobin,A 0.6 rt LAB MHGB 0.4-1.5 % Methemoglobin 0.9 LAB TEMP C Temperature, Body 37.0 LAB PHTC 7.35-7.45 pH, Temp Corrected 7.37 LAB PCO2T 34-46 mm Hg pCO2, Temp Correct 44 LAB PO2T mm Hg pO2, Temp Corrected 132 LAB NAB 135-146 mmol/L Sodium,Whole Bld 138 LAB KWB 3.5-5.0 mmol/L Potassium, Whole Bld 4.1 LAB HGBB 13.0-17.0 g/dL Low Hemoglobin,Total,AC 9.6 L LAB HCTB 39.0-51.0 % Hematocrit, ACL Low 30 LAB IC 1.08-1.30 mmol/L Calcium, Ion, WB 1.23 LAB GLB 60-105 mg/dL Glucose,Whole Bld High 197 LAB LACT 0.5-2.2 mmol/L Lactate High 5.2 Performed By: #### ALLBG #### [facility] [address], [place] [address] GASV + ALL Collected: 10/08/2017 Status: F Source: [place] 9:59 PM [facility] REPOSITORY TYPE CODE TESTS RESULT OUT OF REFERENCE UNITS RANGE LAB VPH 7.32-7.42 pH 7.34 LAB VPC2 42-55 mm Hg pCO2 High 56 LAB VPO2 35-45 mm Hg pO2 39 LAB VBE mmol/L Base Excess 4 LAB VHC3 24-28 mmol/L Bicarbonate High 30 LAB VC2C 25-29 mmol/L CO2 Content High 31 LAB O2HBCX 60-85 % Oxyhemoglobin, Willi. 68 LAB CO <2.0 % Carboxyhemoglobin,V 0.9 en LAB METHB 0.4-1.5 % Methemoglobin Low 0.2 LAB VTMP C Temperature, Body 37.0 LAB VPHTC 7.32-7.42 pH, Temp Corrected 7.34 LAB VPC2T mm Hg pCO2, Temp Correct 56 LAB VPO2T mm Hg pO2, Temp Corrected 39 LAB NAB 135-146 mmol/L Sodium,Whole Bld 141 LAB KWB 3.5-5.0 mmol/L Potassium, Whole Bld 4.4 LAB HGBB 13.0-17.0 g/dL Low Hemoglobin,Total,AC 9.9 L LAB HCTB 39.0-51.0 % Hematocrit, ACL Low 31 LAB IC 1.08-1.30 mmol/L Calcium, Ion, WB 1.16 LAB GLB 60-105 mg/dL Glucose,Whole Bld High 211 LAB LACT 0.5-2.2 mmol/L Lactate High 4.9 Performed By: #### VALLBG #### [facility] [address] [place], [place] [address] GASA + ALL Collected: 10/08/2017 Status: F Source: [place] FOR 9:56 PM [facility] RADIANCE USE ONLY REPOSITORY TYPE CODE TESTS RESULT OUT OF REFERENCE UNITS RANGE LAB PH 7.35-7.45 pH 7.39 LAB PCO2 34-46 mm Hg pCO2 46 LAB PO2 85-95 mm Hg pO2 High 145 LAB BE mmol/L Base Excess 3 LAB HCO3 22-26 mmol/L Bicarbonate High 27 LAB CO2CT 22.0-28.0 mmol/L CO2 Content High 29 LAB O2HB 95-98 % Oxyhemoglobin, Art. 98 LAB COHB 0-5.0 % Carboxyhemoglobin,A 1.4 rt LAB MHGB 0.4-1.5 % Methemoglobin Low 0.1 LAB TEMP C Temperature, Body 37.0 LAB PHTC 7.35-7.45 pH, Temp Corrected 7.39 LAB PCO2T 34-46 mm Hg pCO2, Temp Correct 46 LAB PO2T mm Hg pO2, Temp Corrected 145 LAB NAB 135-146 mmol/L Sodium,Whole Bld 141 LAB KWB 3.5-5.0 mmol/L Potassium, Whole Bld 4.5 LAB HGBB 13.0-17.0 g/dL Low Hemoglobin,Total,AC 9.9 L LAB HCTB 39.0-51.0 % Hematocrit, ACL Low 31 LAB IC 1.08-1.30 mmol/L Calcium, Ion, WB 1.14 LAB GLB 60-105 mg/dL Glucose,Whole Bld High 213 LAB LACT 0.5-2.2 mmol/L Lactate High 5.0 Performed By: #### ALLBG #### [facility] [address] [place], [place] [address] GASV + ALL Collected: 10/08/2017 Status: F Source: [place] 7:43 PM [facility] REPOSITORY TYPE CODE TESTS RESULT OUT OF REFERENCE UNITS RANGE LAB VPH 7.32-7.42 pH 7.42 LAB VPC2 42-55 mm Hg pCO2 49 LAB VPO2 35-45 mm Hg pO2 Low 34 LAB VBE mmol/L Base Excess 6 LAB VHC3 24-28 mmol/L Bicarbonate High 31 LAB VC2C 25-29 mmol/L CO2 Content High 32 LAB O2HBCX 60-85 % Oxyhemoglobin, Willi. 64 LAB CO <2.0 % Carboxyhemoglobin,V 0.8 en LAB METHB 0.4-1.5 % Methemoglobin High 1.9 LAB VTMP C Temperature, Body 37.0 LAB VPHTC 7.32-7.42 pH, Temp Corrected 7.42 LAB VPC2T mm Hg pCO2, Temp Correct 49 LAB VPO2T mm Hg pO2, Temp Corrected 34 LAB NAB 135-146 mmol/L Sodium,Whole Bld 142 LAB KWB 3.5-5.0 mmol/L Potassium, Whole Bld 4.4 LAB HGBB 13.0-17.0 g/dL Low Hemoglobin,Total,AC 9.7 L LAB HCTB 39.0-51.0 % Hematocrit, ACL Low 30 LAB IC 1.08-1.30 mmol/L Calcium, Ion, WB 1.20 LAB GLB 60-105 mg/dL Glucose,Whole Bld High 192 LAB LACT 0.5-2.2 mmol/L Lactate High 3.5 Performed By: #### VALLBG #### [facility] [address], [place] [address] GASA + ALL Collected: 10/08/2017 Status: F Source: [place] FOR 7:41 PM [facility] USE ONLY REPOSITORY TYPE CODE TESTS RESULT OUT OF REFERENCE UNITS RANGE LAB PH 7.35-7.45 pH High 7.46 LAB PCO2 34-46 mm Hg pCO2 41 LAB PO2 85-95 mm Hg pO2 High 114 LAB BE mmol/L Base Excess 5 LAB HCO3 22-26 mmol/L Bicarbonate High 29 LAB CO2CT 22.0-28.0 mmol/L CO2 Content High 30 LAB O2HB 95-98 % Oxyhemoglobin, Art. 96 LAB COHB 0-5.0 % Carboxyhemoglobin,A 1.1 rt LAB MHGB 0.4-1.5 % Methemoglobin High 1.7 LAB TEMP C Temperature, Body 37.0 LAB PHTC 7.35-7.45 pH, Temp High Corrected 7.46 LAB PCO2T 34-46 mm Hg pCO2, Temp Correct 41 LAB PO2T mm Hg pO2, Temp Corrected 114 LAB NAB 135-146 mmol/L Sodium,Whole Bld 142 LAB KWB 3.5-5.0 mmol/L Potassium, Whole Bld 4.5 LAB HGBB 13.0-17.0 g/dL Low Hemoglobin,Total,AC 10.0 L LAB HCTB 39.0-51.0 % Hematocrit, ACL Low 31 LAB IC 1.08-1.30 mmol/L Calcium, Ion, WB 1.20 LAB GLB 60-105 mg/dL Glucose,Whole Bld High 192 LAB LACT 0.5-2.2 mmol/L Lactate High 3.5 Performed By: #### ALLBG #### [facility] [address] [place], [place] [address] GASA + ALL Collected: 10/08/2017 Status: F Source: [place] FOR 5:17 PM [facility] RADIANCE USE ONLY REPOSITORY TYPE CODE TESTS RESULT OUT OF REFERENCE UNITS RANGE LAB PH 7.35-7.45 pH High 7.46 LAB PCO2 34-46 mm Hg pCO2 40 LAB PO2 85-95 mm Hg pO2 Low 81 LAB BE mmol/L Base Excess 5 LAB HCO3 22-26 mmol/L Bicarbonate High 29 LAB CO2CT 22.0-28.0 mmol/L CO2 Content High 30 LAB O2HB 95-98 % Oxyhemoglobin, Art. 95 LAB COHB 0-5.0 % Carboxyhemoglobin,A 1.8 rt LAB MHGB 0.4-1.5 % Methemoglobin 0.6 LAB TEMP C Temperature, Body 37.0 LAB PHTC 7.35-7.45 pH, Temp High Corrected 7.46 LAB PCO2T 34-46 mm Hg pCO2, Temp Correct 40 LAB PO2T mm Hg pO2, Temp Corrected 81 LAB NAB 135-146 mmol/L Sodium,Whole Bld 141 LAB KWB 3.5-5.0 mmol/L Potassium, Whole Bld 4.4 LAB HGBB 13.0-17.0 g/dL Low Hemoglobin,Total,AC 10.1 L LAB HCTB 39.0-51.0 % Hematocrit, ACL Low 31 LAB IC 1.08-1.30 mmol/L Calcium, Ion, WB 1.19 LAB GLB 60-105 mg/dL Glucose,Whole Bld High 148 LAB LACT 0.5-2.2 mmol/L Lactate High 2.9 Performed By: #### ALLBG #### [facility] [address] [place] [address] GASV + ALL Collected: 10/08/2017 Status: F Source: [place] 5:14 PM [facility] REPOSITORY TYPE CODE TESTS RESULT OUT OF REFERENCE UNITS RANGE LAB VPH 7.32-7.42 pH 7.41 LAB VPC2 42-55 mm Hg pCO2 49 LAB VPO2 35-45 mm Hg pO2 Low 30 LAB VBE mmol/L Base Excess 6 LAB VHC3 24-28 mmol/L Bicarbonate High 31 LAB VC2C 25-29 mmol/L CO2 Content High 32 LAB O2HBCX 60-85 % Oxyhemoglobin, Low Willi. 57 LAB CO <2.0 % Carboxyhemoglobin,V 1.4 en LAB METHB 0.4-1.5 % Methemoglobin 0.8 LAB VTMP C Temperature, Body 37.0 LAB VPHTC 7.32-7.42 pH, Temp Corrected 7.41 LAB VPC2T mm Hg pCO2, Temp Correct 49 LAB VPO2T mm Hg pO2, Temp Corrected 30 LAB NAB 135-146 mmol/L Sodium,Whole Bld 142 LAB KWB 3.5-5.0 mmol/L Potassium, Whole Bld 4.4 LAB HGBB 13.0-17.0 g/dL Low Hemoglobin,Total,AC 10.1 L LAB HCTB 39.0-51.0 % Hematocrit, ACL Low 31 LAB IC 1.08-1.30 mmol/L Calcium, Ion, WB 1.21 LAB GLB 60-105 mg/dL Glucose,Whole Bld High 147 LAB LACT 0.5-2.2 mmol/L Lactate High 2.8 Performed By: #### VALLBG #### [facility] [address], [place] [address] FIBRINOGEN Collected: 10/08/2017 Status: F Source: [place] 5:10 PM [facility] REPOSITORY TYPE CODE TESTS RESULT OUT OF REFERENCE UNITS RANGE LAB FIBCT 200-400 mg/dL High Fibrinogen 403 Performed By: #### FIBCT, PT, PTT, CBC #### [facility] [address] [place], [place] [address] PROTIME Collected: 10/08/2017 Status: F Source: [place] 5:10 PM [facility] REPOSITORY TYPE CODE TESTS RESULT OUT OF RANGE REFERENCE UNITS LAB PSEC 9.7-13.0 sec PT Sec 12.1 LAB INR 0.9-1.3 PT INR 1.2 Result Comment: Vitamin K Antagonist (VKA) Therapeutic Range: INR 2 to 3 (Target INR of 2.5) Note: For patients treated with VKA drugs, such as warfarin, the [place] [employer] 2012 Guideline recommends a therapeutic INR range of 2 to 3 (target INR of 2.5). This recommendation includes high-risk patients with antiphospholipid syndrome with previous arterial or venous thromboembolism, current-generation mechanical or bioprosthetic aortic heart valve replacement. Note: Patients with mechanical aortic valve replacement and additional risk factors for thromboembolic events (atrial fibrillation, previous thromboembolism, LV dysfunction, hypercoagulable conditions) or an older generation mechanical AVR (i.e., ball in-Cage) or any mechanical MVR should have a INR therapeutic range of 2.5 to 3.5 (target INR of 3). Phi CEBALLOS, et al. Chest 2012, 141:7S-47S Regis GARSIA et al. [facility] 2017, 70: 252-289 Performed By: #### FIBCT, PT, PTT, CBC #### [facility] [address] [place], [place] [address] APTT Collected: 10/08/2017 Status: F Source: [place] 5:10 PM [facility] REPOSITORY TYPE CODE TESTS RESULT OUT OF RANGE REFERENCE UNITS LAB APTT 23.0-32.4 sec APTT 31.3 Result Comment: Unfractionated Heparin Therapeutic Ranges: Standard Heparin Nomogram: 53 to 78 seconds (anti-Xa level of 0.3 to 0.7 U/ml) Low Dose/ACS Nomogram: 49 to 67 seconds (anti-Xa level of 0.2 to 0.5 U/ml) Stroke Treatment Nomogram: 49 to 67 seconds (anti-Xa level of 0.2 to 0.5 U/ml) Note: The APTT therapeutic range has been determined for the current lot of laboratory APTT reagent in use throughout the [facility]. Performed By: #### FIBCT, PT, PTT, CBC #### [facility] [address] [place], [place] [address] CBC Collected: 10/08/2017 Status: F Source: [place] 5:10 PM [facility] REPOSITORY TYPE CODE TESTS RESULT OUT OF REFERENCE UNITS RANGE LAB WBC 3.70-11.00 k/uL WBC 9.26 LAB RBC 4.20-6.00 m/uL Low RBC 3.18 LAB HGB 13.0-17.0 g/dL Low Hemoglobin 9.8 LAB HCT 39.0-51.0 % Low Hematocrit 27.6 LAB MCV 80.0-100.0 fL MCV 86.8 LAB MCH 26.0-34.0 pG MCH 30.8 LAB MCHC 30.5-36.0 g/dL MCHC 35.5 LAB RDWCV 11.5-15.0 % RDW-CV 14.9 LAB PLTCT 150-400 k/uL Platelet Count 188 LAB MPV 9.0-12.7 fL MPV 9.9 LAB ABSNUC <0.01 k/uL Absolute nRBC <0.01 Performed By: #### FIBCT, PT, PTT, CBC #### [facility] [address] [place], [place] [address] XR CHEST 1V FRONTAL Observed: 10/08/2017 Status: F Source: [facility] 5:00 PM [facility] REPOSITORY * * *Final Report* * * DATE OF EXAM: Oct 08 2017 5:00PM JIX [id number] - XR CHEST 1V FRONTAL PORT / PROCEDURE REASON: Pericardial effusion * * * * Physician Interpretation * * * * EXAMINATION: CHEST RADIOGRAPH (PORTABLE SINGLE VIEW AP) Exam Date/Time: 10/08/2017 5:00 PM Indication: Pericardial effusion MQ: XCP_4 Comparison: Same day RESULT: See impression. IMPRESSION: Lines, tubes, and devices: Unchanged support devices. Radiopaque sponges remain in the open median sternotomy. Lungs and pleura: Decrease of small right pleural effusion. Atelectatic changes remain at the bases. Prominence of the lung markings bilaterally could be due to crowded vessels given the low lung volume. Underlying mild interstitial edema or inflammation cannot be entirely excluded. Cardiomediastinal silhouette: Stable cardiomediastinal silhouette. Other: Silver Wrapper: AMY Transcribe Date/Time: Oct 08 2017 5:28P Dictated by : ALIYA VELAZQUEZ MD This examination was interpreted and the report reviewed and electronically signed by: ALIYA VELAZQUEZ MD on Oct 08 2017 5:29PM EST [id number] + ALL Collected: 10/08/2017 Status: F Source: [place] 3:36 PM [facility] REPOSITORY TYPE CODE TESTS RESULT OUT OF REFERENCE UNITS RANGE LAB VPH 7.32-7.42 pH 7.41 LAB VPC2 42-55 mm Hg pCO2 50 LAB VPO2 35-45 mm Hg pO2 Low 30 LAB VBE mmol/L Base Excess 6 LAB VHC3 24-28 mmol/L Bicarbonate High 31 LAB VC2C 25-29 mmol/L CO2 Content High 33 LAB O2HBCX 60-85 % Oxyhemoglobin, Low Willi. 58 LAB CO <2.0 % Carboxyhemoglobin,V 1.0 en LAB METHB 0.4-1.5 % Methemoglobin 1.2 LAB VTMP C Temperature, Body 37.0 LAB VPHTC 7.32-7.42 pH, Temp Corrected 7.41 LAB VPC2T mm Hg pCO2, Temp Correct 50 LAB VPO2T mm Hg pO2, Temp Corrected 30 LAB NAB 135-146 mmol/L Sodium,Whole Bld 143 LAB KWB 3.5-5.0 mmol/L Potassium, Whole Bld 4.4 LAB HGBB 13.0-17.0 g/dL Low Hemoglobin,Total,AC 10.4 L LAB HCTB 39.0-51.0 % Hematocrit, ACL Low 32 LAB IC 1.08-1.30 mmol/L Calcium, Ion, WB 1.20 LAB GLB 60-105 mg/dL Glucose,Whole Bld High 136 LAB LACT 0.5-2.2 mmol/L Lactate High 2.5 Performed By: #### VALLBG #### [facility] [address] [place], [place] [address] GASA + ALL Collected: 10/08/2017 Status: F Source: [place] FOR 3:26 PM [facility] RADIANCE USE ONLY REPOSITORY TYPE CODE TESTS RESULT OUT OF REFERENCE UNITS RANGE LAB PH 7.35-7.45 pH High 7.47 LAB PCO2 34-46 mm Hg pCO2 43 LAB PO2 85-95 mm Hg pO2 High 119 LAB BE mmol/L Base Excess 6 LAB HCO3 22-26 mmol/L Bicarbonate High 30 LAB CO2CT 22.0-28.0 mmol/L CO2 Content High 32 LAB O2HB 95-98 % Oxyhemoglobin, Art. 97 LAB COHB 0-5.0 % Carboxyhemoglobin,A 1.2 rt LAB MHGB 0.4-1.5 % Methemoglobin 1.0 LAB TEMP C Temperature, Body 37.0 LAB PHTC 7.35-7.45 pH, Temp High Corrected 7.47 LAB PCO2T 34-46 mm Hg pCO2, Temp Correct 43 LAB PO2T mm Hg pO2, Temp Corrected 119 LAB NAB 135-146 mmol/L Sodium,Whole Bld 142 LAB KWB 3.5-5.0 mmol/L Potassium, Whole Bld 4.5 LAB HGBB 13.0-17.0 g/dL Low Hemoglobin,Total,AC 10.6 L LAB HCTB 39.0-51.0 % Hematocrit, ACL Low 33 LAB IC 1.08-1.30 mmol/L Calcium, Ion, WB 1.20 LAB GLB 60-105 mg/dL Glucose,Whole Bld High 131 LAB LACT 0.5-2.2 mmol/L Lactate High 2.9 Performed By: #### ALLBG #### [facility] [address] [place], [place] [address] GASV + ALL Collected: 10/08/2017 Status: F Source: [place] 1:39 PM [facility] [place] REPOSITORY TYPE CODE TESTS RESULT OUT OF REFERENCE UNITS RANGE LAB VPH 7.32-7.42 pH 7.40 LAB VPC2 42-55 mm Hg pCO2 52 LAB VPO2 35-45 mm Hg pO2 Low 28 LAB VBE mmol/L Base Excess 6 LAB VHC3 24-28 mmol/L Bicarbonate High 32 LAB VC2C 25-29 mmol/L CO2 Content High 33 LAB O2HBCX 60-85 % Oxyhemoglobin, Low Willi. 55 LAB CO <2.0 % Carboxyhemoglobin,V 0.7 en LAB METHB 0.4-1.5 % Methemoglobin 0.9 LAB VTMP C Temperature, Body 37.0 LAB VPHTC 7.32-7.42 pH, Temp Corrected 7.40 LAB VPC2T mm Hg pCO2, Temp Correct 52 LAB VPO2T mm Hg pO2, Temp Corrected 28 LAB NAB 135-146 mmol/L Sodium,Whole Bld 144 LAB KWB 3.5-5.0 mmol/L Potassium, Whole Bld 4.4 LAB HGBB 13.0-17.0 g/dL Low Hemoglobin,Total,AC 10.3 L LAB HCTB 39.0-51.0 % Hematocrit, ACL Low 32 LAB IC 1.08-1.30 mmol/L Calcium, Ion, WB 1.24 LAB GLB 60-105 mg/dL Glucose,Whole Bld High 147 LAB LACT 0.5-2.2 mmol/L Lactate High 3.4 Performed By: #### VALLBG #### [facility] [address] [place], [place] [address] GASA + ALL Collected: 10/08/2017 Status: F Source: [place] FOR 1:36 PM [facility] RADIANCE USE ONLY REPOSITORY TYPE CODE TESTS RESULT OUT OF REFERENCE UNITS RANGE LAB PH 7.35-7.45 pH 7.45 LAB PCO2 34-46 mm Hg pCO2 42 LAB PO2 85-95 mm Hg pO2 94 LAB BE mmol/L Base Excess 5 LAB HCO3 22-26 mmol/L Bicarbonate High 29 LAB CO2CT 22.0-28.0 mmol/L CO2 Content High 30 LAB O2HB 95-98 % Oxyhemoglobin, Art. 96 LAB COHB 0-5.0 % Carboxyhemoglobin,A 0.7 rt LAB MHGB 0.4-1.5 % Methemoglobin 0.7 LAB TEMP C Temperature, Body 37.0 LAB PHTC 7.35-7.45 pH, Temp Corrected 7.45 LAB PCO2T 34-46 mm Hg pCO2, Temp Correct 42 LAB PO2T mm Hg pO2, Temp Corrected 94 LAB NAB 135-146 mmol/L Sodium,Whole Bld 144 LAB KWB 3.5-5.0 mmol/L Potassium, Whole Bld 4.3 LAB HGBB 13.0-17.0 g/dL Low Hemoglobin,Total,AC 10.0 L LAB HCTB 39.0-51.0 % Hematocrit, ACL Low 31 LAB IC 1.08-1.30 mmol/L Calcium, Ion, WB 1.21 LAB GLB 60-105 mg/dL Glucose,Whole Bld High 139 LAB LACT 0.5-2.2 mmol/L Lactate High 3.3 Performed By: #### ALLBG #### [facility] [address] [place], [place] [address] CASE MGT INIT Observed: 10/08/2017 Status: COMPLETED Source: [place] 1:07 PM [facility] REPOSITORY HNO ID: [id number] Author: Anna Fiore) Harley Service: Care Management Author Type: Registered Nurse Type: Care Mgt Initial Assessment Filed: 10/08/2017 1:25 PM Note Text: CARE MANAGEMENT: ASSESSMENT AND DISCHARGE PLAN SERVICE DATE: 10/08/2017 SERVICE TIME: 1:08PM PRIMARY CARE PHYSICIAN: Kaykay Beth MD ADMISSION STATUS: Inpatient Needs Prior to Discharge: To Be Determined 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 No Health Literacy: 1. How often do you need to have someone help you when you read instructions, pamphlets, or other written material from your doctor or pharmacy? Rarely - 2 2. How confident are you filling out medical forms by yourself? Extremely - 1 If Patient scores > 3 on either question, the following interventions were put into place: Patient did not score > 3 FUNCTIONAL AND COGNITIVE/BEHAVIORAL PRIOR TO ADMISSION: Baseline Mental Status: Alert AND Oriented, Person, Place , Time and Situation Functional Status: Independent Does Patient Currently Receive Any Community Services or Home Care? None Equipment Prior to Admission: None Has the Patient Been in a Penitentiary Facility in the Past 30 days? No SOCIAL: Living Arrangement: Home Lives With: Spouse Financial Resources: Employed: [employer] Primary Contact: Extended Emergency Contact Information Primary Emergency Contact: Dana [place] Address: [address] [place] [address] Relation: Spouse Supportive: Yes Other Important Patient Contacts: None Caregiver Assessment: Caregiver is ready, willing and able to meet the patient's needs as recommended by the inter-professional team? Yes Patient's transition needs and plan for meeting these needs: To transition from ICU to step-down; then return home. Discharge needs TBD pending medical course. Does the patient have an acute stroke diagnosis, or has the patient had a stroke during this admission? No Medication Adherence: I am convinced of the importance of my prescription medication: Agree completely - 0 I worry that my prescription medication will do more harm than good to me Disagree completely - 0 I feel financially burdened by my [id number] expenses for my prescription medication: Disagree completely - 0 Patient is categorized as low risk < 2 Are you interested in bedside delivery of your medications? Yes Food Concerns: In the Last Month, Have You had Trouble Getting Food? No trouble getting food During the Last Month, Have You Worried Whether Your Food Would Run Out Before You Had Enough Money to Buy More? No Is the Patient Psychosocially Complex? No ASSESSMENT AND PLAN: Medical Needs: None Psychosocial Needs: None FREEDOM OF CHOICE EXPLAINED: TBD; pending medical course POTENTIAL TRANSITION PLANS Home Home Care Per EMR; 10/08/2017 Total arch replacement with FET under [facility] 10/08/2017 Chest exploration / Evacuation of hematoma / Open chest with wound vac Patient is currently intubated. FIO2 50%. Met with patient's this afternoon to introduce myself and explain my role as Lumber Cutter. She was able to answer the CM assessment questions. The patient lives with his in [place], [place]. They live in a single level home with 3 steps for entry. His can transport him home once he is medically cleared for discharge. The patient was independent and very healthy prior to his admission according to his . 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 No reports of DME or home oxygen. The patient's does not anticipate any home going needs at this time. Case Management will continue to follow patient for discharge needs/planning. SIGNATURE: Anna Souza RN PATIENT NAME: Jose Gustafson DATE: October 08, 2017 TIME: 1:08 PM PAGER/CONTACT #: [phone] GASA + ALL Collected: 10/08/2017 Status: F Source: [place] FOR 11:58 AM [facility] USE ONLY REPOSITORY TYPE CODE TESTS RESULT OUT OF REFERENCE UNITS RANGE LAB PH 7.35-7.45 pH 7.43 LAB PCO2 34-46 mm Hg pCO2 43 LAB PO2 85-95 mm Hg pO2 High 124 LAB BE mmol/L Base Excess 4 LAB HCO3 22-26 mmol/L Bicarbonate High 28 LAB CO2CT 22.0-28.0 mmol/L CO2 Content High 29 LAB O2HB 95-98 % Oxyhemoglobin, Art. 97 LAB COHB 0-5.0 % Carboxyhemoglobin, 1.3 Art LAB MHGB 0.4-1.5 % Methemoglobin 0.6 LAB TEMP C Temperature, Body 37.0 LAB PHTC 7.35-7.45 pH, Temp Corrected 7.43 LAB PCO2T 34-46 mm Hg pCO2, Temp Correct 43 LAB PO2T mm Hg pO2, Temp Corrected 124 LAB NAB 135-146 mmol/L Sodium,Whole Bld 141 LAB KWB 3.5-5.0 mmol/L Potassium, Whole Bld 4.7 LAB HGBB 13.0-17.0 g/dL Low Hemoglobin,Total,A 9.6 CL LAB HCTB 39.0-51.0 % Hematocrit, Low ACL 30 LAB IC 1.08-1.30 mmol/L Calcium, Ion, WB 1.22 LAB GLB 60-105 mg/dL Glucose,Whole High Bld 168 LAB LACT 0.5-2.2 mmol/L Lactate High 3.9 LAB ACBDTE Notify Date, Art 20171008 LAB ACBTME Notify Time, Art [id number] Performed By: #### ALLBG #### [facility] [address] [place], [place] [address] GASV + ALL Collected: 10/08/2017 Status: F Source: [place] 11:53 AM [facility] REPOSITORY TYPE CODE TESTS RESULT OUT OF REFERENCE UNITS RANGE LAB VPH 7.32-7.42 pH 7.38 LAB VPC2 42-55 mm Hg pCO2 53 LAB VPO2 35-45 mm Hg pO2 Low 25 LAB VBE mmol/L Base Excess 5 LAB VHC3 24-28 mmol/L Bicarbonate High 30 LAB VC2C 25-29 mmol/L CO2 Content High 32 LAB O2HBCX 60-85 % Oxyhemoglobin, Low Willi. 48 LAB CO <2.0 % Carboxyhemoglobin, 1.1 Willi LAB METHB 0.4-1.5 % Methemoglobin 0.6 LAB VTMP C Temperature, Body 37.0 LAB VPHTC 7.32-7.42 pH, Temp Corrected 7.38 LAB VPC2T mm Hg pCO2, Temp Correct 53 LAB VPO2T mm Hg pO2, Temp Corrected 25 LAB NAB 135-146 mmol/L Sodium,Whole Bld 141 LAB KWB 3.5-5.0 mmol/L Potassium, Whole Bld 4.6 LAB HGBB 13.0-17.0 g/dL Low Hemoglobin,Total,A 10.5 CL LAB HCTB 39.0-51.0 % Hematocrit, Low ACL 33 LAB IC 1.08-1.30 mmol/L Calcium, Ion, WB 1.21 LAB GLB 60-105 mg/dL Glucose,Whole High Bld 165 LAB LACT 0.5-2.2 mmol/L Lactate High 3.7 LAB VCBDTE Notify Date, Willi 20171008 LAB VCBTME Notify Time, Willi [id number] Performed By: #### VALLBG #### [facility] [address] [place], [place] [address] CBC Collected: 10/08/2017 Status: F Source: [place] 11:35 [facility] REPOSITORY TYPE CODE TESTS RESULT OUT OF REFERENCE UNITS RANGE LAB WBC 3.70-11.00 k/uL WBC 6.86 LAB RBC 4.20-6.00 m/uL Low RBC 2.88 LAB HGB 13.0-17.0 g/dL Low Hemoglobin 9.2 LAB HCT 39.0-51.0 % Low Hematocrit 25.9 LAB MCV 80.0-100.0 fL MCV 89.9 LAB MCH 26.0-34.0 pG MCH 31.9 LAB MCHC 30.5-36.0 g/dL MCHC 35.5 LAB RDWCV 11.5-15.0 % RDW-CV 14.6 LAB PLTCT 150-400 k/uL Platelet Count 158 LAB MPV 9.0-12.7 fL MPV 9.3 LAB ABSNUC <0.01 k/uL Absolute nRBC <0.01 Performed By: #### CBC, FIBCT, PT, PTT #### [address] [place], [place] [address] FIBRINOGEN Collected: 10/08/2017 Status: F Source: [place] 11:35 [facility] REPOSITORY TYPE CODE TESTS RESULT OUT OF REFERENCE UNITS RANGE LAB FIBCT 200-400 mg/dL Fibrinogen 349 Performed By: #### CBC, FIBCT, PT, PTT #### [address] [address] PROTIME Collected: 10/08/2017 Status: F Source: [place] 11:35 [facility] REPOSITORY TYPE CODE TESTS RESULT OUT OF RANGE REFERENCE UNITS LAB PSEC 9.7-13.0 sec PT Sec 12.2 LAB INR 0.9-1.3 PT INR 1.2 Result Comment: Vitamin K Antagonist (VKA) Therapeutic Range: INR 2 to 3 (Target INR of 2.5) Note: For patients treated with VKA drugs, such as warfarin, the [place] [employer] 2012 Guideline recommends a therapeutic INR range of 2 to 3 (target INR of 2.5). This recommendation includes high-risk patients with antiphospholipid syndrome with previous arterial or venous thromboembolism, current-generation mechanical or bioprosthetic aortic heart valve replacement. Note: Patients with mechanical aortic valve replacement and additional risk factors for thromboembolic events (atrial fibrillation, previous thromboembolism, LV dysfunction, hypercoagulable conditions) or an older generation mechanical AVR (i.e., ball in-Cage) or any mechanical MVR should have a INR therapeutic range of 2.5 to 3.5 (target INR of 3). Phi GH, et al. Chest 2012, 141:7S-47S Regis RA, et al. [facility] 2017, 70: 252-289 Performed By: #### CBC, FIBCT, PT, PTT #### [facility] [place], [place] [address] APTT Collected: 10/08/2017 Status: F Source: [place] 11:35 AM [facility] REPOSITORY TYPE CODE TESTS RESULT OUT OF RANGE REFERENCE UNITS LAB APTT 23.0-32.4 sec APTT 32.3 Result Comment: Unfractionated Heparin Therapeutic Ranges: Standard Heparin Nomogram: 53 to 78 seconds (anti-Xa level of 0.3 to 0.7 U/ml) Low Dose/ACS Nomogram: 49 to 67 seconds (anti-Xa level of 0.2 to 0.5 U/ml) Stroke Treatment Nomogram: 49 to 67 seconds (anti-Xa level of 0.2 to 0.5 U/ml) Note: The APTT therapeutic range has been determined for the current lot of laboratory APTT reagent in use throughout the [facility]. Performed By: #### CBC, FIBCT, PT, PTT #### [facility] [address] [place], [place] [id number] CONSULT PROG Observed: 10/08/2017 Status: COMPLETED Source: [place] 11:11 AM [facility] REPOSITORY HNO ID: [id number] Author: Pancho Cornelius (Pharmacist) Service: Pharmacy Author Type: Pharmacist Type: Consult Progress Note Filed: 10/08/2017 11:13 AM Note Text: PHARMACY VANCOMYCIN DOSING NOTE Patient Name: Jose Gustafson Admission Date: 10/07/2017 Date of Consult: 10/08/2017 Time of Consult: 11:11 AM Indication: Source Unknown; empiric Goal Range: 10-20 mcg/mL RECOMMENDATIONS/PLAN: Pharmacy consulted for vancomycin dosing for Jose Gustafson, a 52 year old, male who is being treated with vancomycin for empiric coverage/open chest 1. Patient is currently ordered Vancomycin 1 g IV q12h. Today is day 1 of therapy. 2. No vancomycin level has been drawn for this dosing regimen. 3. Will adjust vancomycin to 1.25 g with a dosing interval of q24h starting tonight (12 hours after 1st dose) 4. The next vancomycin level will be ordered for 10/11 unless clinically indicated sooner. (Pharmacy will order) We will follow patient renal function, vancomycin levels and doses with you during the course of therapy. Additional recommendations will appear in follow up notes. If you have any questions, please contact PANCHO CORNELIUS, PHARMACIST at pager [phone]. Age: [age] year old Allergies: ALLERGIES Allergen Reactions - Cats - Grass Pollen Itching Last 3 Encounter Wt Readings: Date: Wt: 09/07/2017 84.6 kg (186 lb 6.4 oz) 08/24/2017 83.5 kg (184 lb) 08/01/2017 87.1 kg (192 lb) Last 1 Encounter Ht Readings: Date: Ht: 10/07/2017 182.9 cm (6') CrCl: 50-60 mL/min with a recent climb in SCr Temp (24hrs), Av.8 ?C (96.4 ?F), Min:34.9 ?C (94.8 ?F), Max:36.6 ?C (97.9 ?F) - Current Temp: (!) 35.1 ?C (95.2 ?F) Labs BUN (mg/dL) Date Value 10/08/2017 13 10/07/2017 14 10/10/2016 27 (H) Creatinine (mg/dL) Date Value 10/08/2017 1.52 (H) 10/07/2017 1.22 10/10/2016 1.04 WBC (k/uL) Date Value 10/08/2017 4.81 10/08/2017 4.75 10/08/2017 4.33 Vancomycin Levels: No results found for: MAIRA CORNELIUS, PHARMACIST XR CHEST 1V FRONTAL Observed: 10/08/2017 Status: F Source: [facility] 11:06 AM [facility] REPOSITORY * * *Final Report* * * DATE OF EXAM: Oct 08 2017 11:06AM IVANNA [id number] - XR CHEST 1V FRONTAL PORT / PROCEDURE REASON: Shock (HCC) * * * * Physician Interpretation * * * * EXAMINATION: CHEST RADIOGRAPH (PORTABLE SINGLE VIEW AP) Exam Date/Time: 10/08/2017 11:06 AM Indication: Shock (HCC) MQ: XCP_4 Comparison: 1 day prior RESULT: See impression. IMPRESSION: Lines, tubes, and devices: There has been median sternotomy with sternal supervisor line department in place. Also noted are radiopaque sponges overlying the chest. Endotracheal tube, NG/OG tube, right pulmonary arterial catheter, mediastinal drains and bilateral chest tubes are in place. The tip of the pulmonary arterial catheter overlies the main pulmonary artery. Endovascular stent graft has been placed in the descending thoracic aorta. Defibrillator pad overlies the left chest. Lungs and pleura: Patchy reticular opacities are noted, likely related to pulmonary edema. Small right and trace left pleural effusions are noted. Biapical pleural thickening/fluid is noted. No pneumothorax. Cardiomediastinal silhouette: Cardiomediastinal silhouette is mildly enlarged. Other: Small amount of subcutaneous emphysema is noted bilaterally. Silver Wrapper: AMY Transcribe Date/Time: Oct 08 2017 2:22P Dictated by : EFREN RAMIREZ MD This examination was interpreted and the report reviewed and electronically signed by: EFREN RAMIREZ MD on Oct 08 2017 2:23PM EST [id number] PROGRESS Observed: 10/08/2017 Status: COMPLETED Source: [place] 10:30 AM [facility] REPOSITORY HNO ID: [id number] Author: Boubacar Chapman Service: (none) Author Type: Anesthesiologist Type: Progress Notes Filed: 10/08/2017 10:36 AM Note Text: [facility] Progress Note Name: Jose Gustafson COORDINATION OF CARE NOTE: Indication for Surgery: Spontaneous Rupture of Aorta LVEF: Normal RVF: Normal Important/Relevant PMH/PSH: HTN, asthma, hx kidney stones Preoperative Hospital Course (narrative): 52 yo M with PMH HTN, Asthma, and hx of kidney stones who is transferred to F for 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 Procedure/Surgeries: 10/08/2017 Total arch replacement with FET under [facility]CA 10/08/2017 Chest exploration / Evacuation of hematoma / Open chest with wound vac Airway Difficulty: Grade I - No special instrumentation OR Course: Transient or mild hypotension and Coagulopathy/bleeding Pacing wires: Yes: Ventricular: When discontinuing pacing wires: Cut all pacing wires Postoperative Course/General Impression: (narrative or log of major events with date of onset): Arrived to CVICU intubated, and sedated, on iVeletri, open chest, maintain overnight, plan to go back to OR later today for possible closure. Coagulopathy/bleeding intraop, transfused multiple blood products in OR, transfuse postop as needed. Hypotensive intraop, arrived on 4mcg Levo and 0.02 Vaso. The patient continued to bleed overnight and went back to the OR the following morning and large amount of clots were removed but no active bleeding. Issues to communicate at signout: 10/08/2017 OPEN CHEST - s/p chest exploration Volume resuscitation, monitor lactate Titrate NE/Vaso for MAP > 65 Wean iVeletri for mPAP < 30 Correct coagulopathy Transfuse for HCT > 27% OTHER PROBLEMS I MANAGED DURING THIS ENCOUNTER: Problem Dissection of Thoracic Aorta (Hcc) Patient with chest pain at OSH CT chest showing type a dissection 10/08/2017 s/p Total arch replacement with FET under [facility]CA A/P: Arrived to CVICU with open chest due to bleeding intraop. S/p chest washout this am. Aortic Dissection (Hcc) Patient with hx of htn Presented with chest pain CT chest showing likely type a dissection BP low no impulse control CTS plan for OR 10/08/2017 Total arch replacement with FET under [employer] 10/08/2017 Chest exploration / Evacuation of hematoma / Open chest with wound vac Atelectasis Grade 1 airway A/P: Arrived to CVICU intubated on iVeletri, maintain overnight. PEEP. Hypoxia 10/08/2017 PEEP therapy, wean FiO2. Postoperative Hypotension A/P: Arrived to CVICU on 4mcg Levo and 0.02 Vaso, wean as able to goal MAP 65-75. Essential Hypertension Patient with HTN on lisinopril 5 at baseline BPs on checks have been 115-130s systolic at latest visits A/P: Arrived to CVICU hypotensive requiring vasopressor support. Hold BP meds for now. Pain, Postoperative, Acute A/P: Fentanyl infusion while intubated with open chest for pain control. Lactic Acid Acidosis Volume resuscitation. Coagulopathy (Hcc) A/P: Coagulopathy/bleeding intraop, transfused 10 FFP, 8 PRBC, 6 platelets, 4 cryo in OR. Since arrival at 0100, have transfused 6 FFP, 8 PRBC, 3 platelets, 2 cryo. F/u coags, 2 platelets given in OR for washout. Acute Blood Loss Anemia A/P: H/H 02/16 on arrival, received 8 PRBC intraop, transfuse 2 units on arrival, monitor and transfuse as needed. 10/08/2017 Transfuse for HCT >= 27%. SUBJECTIVE INTERVAL HISTORY: critically ill as above. PERTINENT REVIEW OF SYSTEMS: See Assessment and Plan. Remaining ROS reviewed and negative. PHYSICAL EXAM AND PERTINENT DATA: Infusions: NE, vaso, fent, prop, RHI, iVeletri Vital Signs: BP 152/83 Pulse 63 Temp (!) 35 ?C (95 ?F) (Core) Resp 18 Ht 182.9 cm (6') SpO2 100% Neuro: sedated, intubated Cardiovascular: Rhythm: SR MAP: 65 mm Hg CVP: 12 mm Hg PAP: 28/14 mm Hg Cardiac Index: 2.8 L/min/m2 Recent Labs 10/07/17 1415 TROPT <0.010 Pulmonary: Clear to auscultation and Breath sounds equal Ventilator: Intubated: SPCV; FiO2: 0.7; PEEP: 10; Not ready for weaning; HOB elevated 40 degrees: Yes; Oral care with chlorhexidine: Yes; Was sedation turned off? No: Why? Contraindicated because patient's chest is open Recent Labs 10/08/17 1007 10/08/17 0939 10/08/17 0835 10/08/17 0752 PH -- 7.41 7.35 7.41 PCO2 -- 47* 55* 51* PO2 -- 128* 79* 133* HCO3 -- 29* 30* 32* O2HB -- 97 94* 98 LACT 5.6* 5.5* 5.1* 3.9* CXR Findings: CXR personally viewed and interpreted by ICU staff Physician Gastrointestinal: Abdominal: Soft and Distended Recent Labs 10/08/17 0105 10/07/17 1415 TPROT 4.3* 5.0* ALB 2.6* 3.0* ALKPHOS 28* 54 TBILI 1.5* 1.1 AST 205* 11* ALT 178* 14 Heme: Recent Labs 10/08/17 0931 10/08/17 0615 10/08/17 0300 WBC 4.81 4.75 4.33 HB 7.4* 8.5* 7.1* HCT 21.6* 24.1* 20.5* PLT 147* 117* 117* Recent Labs 10/08/17 0931 10/08/17 0615 10/08/17 0300 PTSEC 13.2* 11.9 13.8* INR 1.3 1.2 1.4* APTT 41.1* 32.1 45.4* Endocrine: Recent Labs 10/07/17 1415 TSH 5.250 Renal: Worsening Intake/Output Summary (Last 24 hours) at 10/08/17 0659 Last data filed at 10/08/17 0630 Gross per 24 hour Intake 85045 ml Output 5620 ml Net 7061 ml Recent Labs 10/08/17 1007 10/08/17 0555 10/08/17 0121 10/08/17 0105 10/07/17 1415 NA -- -- -- 152* -- 138 K -- -- -- 3.4* -- 4.6 CHLOR -- -- -- 104 -- 105 CO2 31* 37* 33* 30 < > 21* BUN -- -- -- 13 -- 14 CREAT -- -- -- 1.52* -- 1.22 GLUC -- -- -- 82 -- 153* < > = values in this interval not displayed. Recent Labs 10/08/17 0105 10/07/17 1415 CA 9.8 7.7* Recent Labs 10/07/17 1415 MG 2.0 Recent Labs 10/07/17 1415 P 1.8* Mr. Gustafson is critically ill as documented above. He is in the early stages of shock liver, CASSIUS, vasoplegic shock, and open-chest. I have titrated pressors for MAP > 65. I have weaned iVeletri for mPAP < 30. I have transfused for HCT >= 27%. I have discussed the POC with the CTS team. I have weaned FiO2 for PaO2 > 70 and titrated PEEP. I have discussed the case and the plan and management of the patient's care with the primary surgical team and consulting services, the bedside nurse and the respiratory therapist. Additional CCT = 62 minutes. SIGNATURE: Boubacar Burton DO DATE of SERVICE: 10/08/2017 TIME of SERVICE: 10:30 AM ANES POST Observed: 10/08/2017 Status: COMPLETED Source: [place] 10:12 AM [facility] REPOSITORY O ID: [id number] Author: El Huerta Service: Anesthesiology Author Type: Anesthesiologist Type: Anesthesia PostOp Filed: 10/08/2017 10:14 AM Note Text: POST ANESTHESIA EVALUATION NOTE SERVICE DATE: 10/08/2017 s/p chest washout : 1965 Vitals: 10/08/17 0400 10/08/17 0418 10/08/17 0508 10/08/17 0515 Temp: 36.6 ?C (97.9 ?F) 36.4 ?C (97.5 ?F) 36.5 ?C (97.7 ?F) 36.5 ?C (97.7 ?F) 10/08/17 0630 10/08/17 0650 10/08/17 0710 10/08/17 0730 Arterial BP 1: 96/50 93/50 91/49 93/48 BP: 10/08/17 0650 10/08/17 0710 10/08/17 0730 10/08/17 0931 Pulse: 78 77 74 64 10/08/17 0234 10/08/17 0439 10/08/17 0510 10/08/17 0931 Resp: 16 18 10/08/17 0650 10/08/17 0710 10/08/17 0730 10/08/17 0931 SpO2: 100% 100% 100% 100% Validated Vital Signs: HR: 65; BP: 97/56; RR: 12; SpO2%: 100; Temperature: 36.2 POST ANES STATUS: PACU/ICU Patient Condition: Stable Neurological Status: On intravenous sedation. Pulmonary Status: On invasive mechanical ventilation. Airway Control: Intubated on mechanical ventilation. Cardiovascular Status: Stable and On vasopressor + Flolan Pain: Adequately controlled Postoperative Nausea/Vomiting: No significant post operative nausea or vomiting Postoperative Hydration Status: Adequate. Anesthetic Complications: None Recommendation: Continue current plan of care and Further care per PACU/ICU/Floor team Other Remarks: SIGNATURE: El Huerta MD PATIENT NAME: Jose Gustafson DATE: October 08, 2017 TIME: 10:13 AM PAGER/CONTACT #: [phone] GASV + ALL Collected: 10/08/2017 Status: F Source: [place] 10:07 AM [facility] [place] REPOSITORY TYPE CODE TESTS RESULT OUT OF REFERENCE UNITS RANGE LAB VPH 7.32-7.42 pH 7.35 LAB VPC2 42-55 mm Hg pCO2 55 LAB VPO2 35-45 mm Hg pO2 Low 34 LAB VBE mmol/L Base Excess 3 LAB VHC3 24-28 mmol/L Bicarbonate High 29 LAB VC2C 25-29 mmol/L CO2 Content High 31 LAB O2HBCX 60-85 % Oxyhemoglobin, Willi. 65 LAB CO <2.0 % Carboxyhemoglobin,V 1.1 en LAB METHB 0.4-1.5 % Methemoglobin 0.8 LAB VTMP C Temperature, Body 37.0 LAB VPHTC 7.32-7.42 pH, Temp Corrected 7.35 LAB VPC2T mm Hg pCO2, Temp Correct 55 LAB VPO2T mm Hg pO2, Temp Corrected 34 LAB NAB 135-146 mmol/L Sodium,Whole Bld 143 LAB KWB 3.5-5.0 mmol/L Potassium, Whole Bld 4.1 LAB HGBB 13.0-17.0 g/dL Low Hemoglobin,Total,AC 7.4 L LAB HCTB 39.0-51.0 % Hematocrit, ACL Low 23 LAB IC 1.08-1.30 mmol/L Calcium, Ion, WB 1.17 LAB GLB 60-105 mg/dL Glucose,Whole Bld High 124 LAB LACT 0.5-2.2 mmol/L Lactate High 5.6 Performed By: #### VALLBG #### [facility] [address] [place], [place] [address] GASA + ALL Collected: 10/08/2017 Status: F Source: [place] FOR 9:39 AM [facility] RADIANCE USE ONLY REPOSITORY TYPE CODE TESTS RESULT OUT OF REFERENCE UNITS RANGE LAB PH 7.35-7.45 pH 7.41 LAB PCO2 34-46 mm Hg pCO2 High 47 LAB PO2 85-95 mm Hg pO2 High 128 LAB BE mmol/L Base Excess 4 LAB HCO3 22-26 mmol/L Bicarbonate High 29 LAB CO2CT 22.0-28.0 mmol/L CO2 Content High 30 LAB O2HB 95-98 % Oxyhemoglobin, Art. 97 LAB COHB 0-5.0 % Carboxyhemoglobin, 1.4 Art LAB MHGB 0.4-1.5 % Methemoglobin 0.5 LAB TEMP C Temperature, Body 37.0 LAB PHTC 7.35-7.45 pH, Temp Corrected 7.41 LAB PCO2T 34-46 mm Hg pCO2, Temp High Correct 47 LAB PO2T mm Hg pO2, Temp Corrected 128 LAB NAB 135-146 mmol/L Sodium,Whole Bld 142 LAB KWB 3.5-5.0 mmol/L Potassium, Whole Bld 4.3 LAB HGBB 13.0-17.0 g/dL Low Hemoglobin,Total,A 7.6 CL LAB HCTB 39.0-51.0 % Hematocrit, Low ACL 24 LAB IC 1.08-1.30 mmol/L Calcium, Ion, WB 1.15 LAB GLB 60-105 mg/dL Glucose,Whole High Bld 129 LAB LACT 0.5-2.2 mmol/L Lactate High 5.5 LAB ACBDTE Notify Date, Art 20171008 LAB ACBTME Notify Time, Art Performed By: #### ALLBG #### [facility] [address] [place], [place] [address] CBC Collected: 10/08/2017 Status: F Source: [place] 9:31 AM [facility] REPOSITORY TYPE CODE TESTS RESULT OUT OF REFERENCE UNITS RANGE LAB WBC 3.70-11.00 k/uL WBC 4.81 LAB RBC 4.20-6.00 m/uL Low RBC 2.40 LAB HGB 13.0-17.0 g/dL Low Hemoglobin 7.4 LAB HCT 39.0-51.0 % Low Hematocrit 21.6 LAB MCV 80.0-100.0 fL MCV 90.0 LAB MCH 26.0-34.0 pG MCH 30.8 LAB MCHC 30.5-36.0 g/dL MCHC 34.3 LAB RDWCV 11.5-15.0 % RDW-CV 14.8 LAB PLTCT 150-400 k/uL Low Platelet Count 147 LAB MPV 9.0-12.7 fL MPV 9.7 LAB ABSNUC <0.01 k/uL Absolute nRBC <0.01 Performed By: #### CBC, FIBCT, PT, PTT #### [facility] [address] [place], [place] [address] FIBRINOGEN Collected: 10/08/2017 Status: F Source: [place] 9:31 AM [facility] REPOSITORY TYPE CODE TESTS RESULT OUT OF REFERENCE UNITS RANGE LAB FIBCT 200-400 mg/dL Low Fibrinogen 182 Performed By: #### CBC, FIBCT, PT, PTT #### [facility] [address] [place], [place] [address] PROTIME Collected: 10/08/2017 Status: F Source: [place] 9:31 AM [facility] REPOSITORY TYPE CODE TESTS RESULT OUT OF RANGE REFERENCE UNITS LAB PSEC 9.7-13.0 sec High PT Sec 13.2 LAB INR 0.9-1.3 PT INR 1.3 Result Comment: Vitamin K Antagonist (VKA) Therapeutic Range: INR 2 to 3 (Target INR of 2.5) Note: For patients treated with VKA drugs, such as warfarin, the [employer] [employer] 2012 Guideline recommends a therapeutic INR range of 2 to 3 (target INR of 2.5). This recommendation includes high-risk patients with antiphospholipid syndrome with previous arterial or venous thromboembolism, current-generation mechanical or bioprosthetic aortic heart valve replacement. Note: Patients with mechanical aortic valve replacement and additional risk factors for thromboembolic events (atrial fibrillation, previous thromboembolism, LV dysfunction, hypercoagulable conditions) or an older generation mechanical AVR (i.e., ball in-Cage) or any mechanical MVR should have a INR therapeutic range of 2.5 to 3.5 (target INR of 3). Phi GH, et al. Chest 2012, 141:7S-47S Regis GARSIA et al. [facility] 2017, 70: 252-289 Performed By: #### CBC, FIBCT, PT, PTT #### [facility] [address] [place], [place] [address] APTT Collected: 10/08/2017 Status: F Source: [place] 9:31 AM [facility] REPOSITORY TYPE CODE TESTS RESULT OUT OF RANGE REFERENCE UNITS LAB APTT 23.0-32.4 sec High APTT 41.1 Result Comment: Unfractionated Heparin Therapeutic Ranges: Standard Heparin Nomogram: 53 to 78 seconds (anti-Xa level of 0.3 to 0.7 U/ml) Low Dose/ACS Nomogram: 49 to 67 seconds (anti-Xa level of 0.2 to 0.5 U/ml) Stroke Treatment Nomogram: 49 to 67 seconds (anti-Xa level of 0.2 to 0.5 U/ml) Note: The APTT therapeutic range has been determined for the current lot of laboratory APTT reagent in use throughout the [facility]. Performed By: #### CBC, FIBCT, PT, PTT #### [facility] [address] [place], [place] [address] BRIEF OP NOT Observed: 10/08/2017 Status: COMPLETED Source: [place] 9:03 AM [facility] REPOSITORY HNO ID: [id number] Author: Mauricio Nino Service: Cardiac Surgery Author Type: Physician Type: Brief Op Note Filed: 10/08/2017 9:04 AM Note Text: CARDIOTHORACIC BRIEF OP NOTE LOG ID: [id number] SURGERY/PROCEDURE DATE: 10/08/2017 INCISION/PROCEDURE START TIME: 8:14 AM INCISION CLOSE/PROCEDURE END TIME: SURGEON(S) AND CHISELER HEAD(S): Surgeon(s) and Role: * Arpit Mckenzie - Primary * Mauricio Nino - Assisting Registered Nurse Spinning Doffer: Jamaal (Herminio) HERMINIO LentzWOOL PRESSER AND ANESTHESIA: Chest exploration Evacuation of hematoma Open chest with wound vac ANESTHESIA: General BRIEF FINDINGS: clots in chest and pleura PREOPERATIVE DIAGNOSIS: Post-op bleeding POSTOPERATIVE DIAGNOSIS: Coagulopathy ESTIMATED BLOOD LOSS: 500 ml SPECIMENS: None COMPLICATIONS: None SIGNATURE: Mauricio Nino MD PATIENT NAME: Jose Gustafson DATE: October 08, 2017 TIME: 9:03 AM PAGER/CONTACT #: [phone] NURSING PROG Observed: 10/08/2017 Status: COMPLETED Source: [place] 8:50 AM [facility] REPOSITORY HNO ID: [id number] Author: Myriam (Rn) HERMINIO Melo Service: Cardiac Surgery Author Type: Registered Nurse Type: Nursing Progress Note Filed: 10/08/2017 8:51 AM Note Text: 4 sponges left in chest M rudolph BREWER, ZULY, MG Collected: 10/08/2017 Status: F Source: [facility] 8:35 AM [facility] RADIANCE USE ONLY REPOSITORY TYPE CODE TESTS RESULT OUT OF REFERENCE UNITS RANGE LAB PH 7.35-7.45 pH 7.35 LAB PCO2 34-46 mm Hg pCO2 High 55 LAB PO2 85-95 mm Hg pO2 Low 79 LAB BE mmol/L Base Excess 4 LAB HCO3 22-26 mmol/L Bicarbonate High 30 LAB CO2CT 22.0-28.0 mmol/L CO2 Content High 32 LAB O2HB 95-98 % Oxyhemoglobin, Low Art. 94 LAB COHB 0-5.0 % Carboxyhemoglobin,A 1.1 rt LAB MHGB 0.4-1.5 % Methemoglobin 1.3 LAB TEMP C Temperature, Body 37.0 LAB PHTC 7.35-7.45 pH, Temp Corrected 7.35 LAB PCO2T 34-46 mm Hg pCO2, Temp High Correct 55 LAB PO2T mm Hg pO2, Temp Corrected 79 LAB NAB 135-146 mmol/L Sodium,Whole Bld 143 LAB KWB 3.5-5.0 mmol/L Potassium, Whole Bld 4.3 LAB HGBB 13.0-17.0 g/dL Low Hemoglobin,Total,AC 7.7 L LAB HCTB 39.0-51.0 % Hematocrit, ACL Low 24 LAB IC 1.08-1.30 mmol/L Calcium, Ion, WB 1.22 LAB GLB 60-105 mg/dL Glucose,Whole Bld High 155 LAB LACT 0.5-2.2 mmol/L Lactate High 5.1 LAB MGI 0.43-0.66 mmol/L Magnesium, Ion, WB 0.50 Performed By: #### ALLMG #### [facility] [address] [place], [place] [address] GASA + ALL Collected: 10/08/2017 Status: F Source: [place] FOR 7:52 AM [facility] USE ONLY REPOSITORY TYPE CODE TESTS RESULT OUT OF REFERENCE UNITS RANGE LAB PH 7.35-7.45 pH 7.41 LAB PCO2 34-46 mm Hg pCO2 High 51 LAB PO2 85-95 mm Hg pO2 High 133 LAB BE mmol/L Base Excess 7 LAB HCO3 22-26 mmol/L Bicarbonate High 32 LAB CO2CT 22.0-28.0 mmol/L CO2 Content High 34 LAB O2HB 95-98 % Oxyhemoglobin, Art. 98 LAB COHB 0-5.0 % Carboxyhemoglobin, 1.1 Art LAB MHGB 0.4-1.5 % Methemoglobin Low 0.1 LAB TEMP C Temperature, Body 37.0 LAB PHTC 7.35-7.45 pH, Temp Corrected 7.41 LAB PCO2T 34-46 mm Hg pCO2, Temp High Correct 51 LAB PO2T mm Hg pO2, Temp Corrected 133 LAB NAB 135-146 mmol/L Sodium,Whole Bld 144 LAB KWB 3.5-5.0 mmol/L Potassium, Whole Bld 4.2 LAB HGBB 13.0-17.0 g/dL Low Hemoglobin,Total,A 7.7 CL LAB HCTB 39.0-51.0 % Hematocrit, Low ACL 24 LAB IC 1.08-1.30 mmol/L Calcium, Ion, WB 1.20 LAB GLB 60-105 mg/dL Glucose,Whole High Bld 146 LAB LACT 0.5-2.2 mmol/L Lactate High 3.9 LAB ACBDTE Notify Date, Art 20171008 LAB ACBTME Notify Time, Art Performed By: #### ALLBG #### [facility] [address] [place], [place] [address] GASA + ALL Collected: 10/08/2017 Status: F Source: [place] FOR 6:39 AM [facility] USE ONLY REPOSITORY TYPE CODE TESTS RESULT OUT OF REFERENCE UNITS RANGE LAB PH 7.35-7.45 pH 7.45 LAB PCO2 34-46 mm Hg pCO2 High 51 LAB PO2 85-95 mm Hg pO2 High 118 LAB BE mmol/L Base Excess 10 LAB HCO3 22-26 mmol/L Bicarbonate High 34 LAB CO2CT 22.0-28.0 mmol/L CO2 Content High 36 LAB O2HB 95-98 % Oxyhemoglobin, Art. 97 LAB COHB 0-5.0 % Carboxyhemoglobin,A 1.4 rt LAB MHGB 0.4-1.5 % Methemoglobin 0.8 LAB TEMP C Temperature, Body 37.0 LAB PHTC 7.35-7.45 pH, Temp Corrected 7.45 LAB PCO2T 34-46 mm Hg pCO2, Temp High Correct 51 LAB PO2T mm Hg pO2, Temp Corrected 118 LAB NAB 135-146 mmol/L Sodium,Whole Bld 144 LAB KWB 3.5-5.0 mmol/L Potassium, Whole Bld 4.5 LAB HGBB 13.0-17.0 g/dL Low Hemoglobin,Total,AC 8.5 L LAB HCTB 39.0-51.0 % Hematocrit, ACL Low 27 LAB IC 1.08-1.30 mmol/L Calcium, Ion, WB 1.18 LAB GLB 60-105 mg/dL Glucose,Whole Bld High 172 LAB LACT 0.5-2.2 mmol/L Lactate High 2.9 Performed By: #### ALLBG #### [facility] [address] [place], [place] [address] CBC Collected: 10/08/2017 Status: F Source: [place] 6:15 AM [facility] REPOSITORY TYPE CODE TESTS RESULT OUT OF REFERENCE UNITS RANGE LAB WBC 3.70-11.00 k/uL WBC 4.75 LAB RBC 4.20-6.00 m/uL Low RBC 2.78 LAB HGB 13.0-17.0 g/dL Low Hemoglobin 8.5 LAB HCT 39.0-51.0 % Low Hematocrit 24.1 LAB MCV 80.0-100.0 fL MCV 86.7 LAB MCH 26.0-34.0 pG MCH 30.6 LAB MCHC 30.5-36.0 g/dL MCHC 35.3 LAB RDWCV 11.5-15.0 % RDW-CV 14.3 LAB PLTCT 150-400 k/uL Low Platelet Count 117 LAB MPV 9.0-12.7 fL MPV 9.4 LAB ABSNUC <0.01 k/uL Absolute nRBC <0.01 Performed By: #### CBC, FIBCT, PT, PTT #### [facility] [address] [place], [place] [address] FIBRINOGEN Collected: 10/08/2017 Status: F Source: [place] 6:15 AM [facility] REPOSITORY TYPE CODE TESTS RESULT OUT OF REFERENCE UNITS RANGE LAB FIBCT 200-400 mg/dL Fibrinogen 249 Performed By: #### CBC, FIBCT, PT, PTT #### [facility] [address] [place], [place] [address] PROTIME Collected: 10/08/2017 Status: F Source: [place] 6:15 AM [facility] REPOSITORY TYPE CODE TESTS RESULT OUT OF RANGE REFERENCE UNITS LAB PSEC 9.7-13.0 sec PT Sec 11.9 LAB INR 0.9-1.3 PT INR 1.2 Result Comment: Vitamin K Antagonist (VKA) Therapeutic Range: INR 2 to 3 (Target INR of 2.5) Note: For patients treated with VKA drugs, such as warfarin, the [place] [employer] 2012 Guideline recommends a therapeutic INR range of 2 to 3 (target INR of 2.5). This recommendation includes high-risk patients with antiphospholipid syndrome with previous arterial or venous thromboembolism, current-generation mechanical or bioprosthetic aortic heart valve replacement. Note: Patients with mechanical aortic valve replacement and additional risk factors for thromboembolic events (atrial fibrillation, previous thromboembolism, LV dysfunction, hypercoagulable conditions) or an older generation mechanical AVR (i.e., ball in-Cage) or any mechanical MVR should have a INR therapeutic range of 2.5 to 3.5 (target INR of 3). Phi GH, et al. Chest 2012, 141:7S-47S Regis RA, et al. [facility] 2017, 70: 252-289 Performed By: #### CBC, FIBCT, PT, PTT #### [facility] [address] [place], [place] [address] APTT Collected: 10/08/2017 Status: F Source: [place] 6:15 AM [facility] REPOSITORY TYPE CODE TESTS RESULT OUT OF RANGE REFERENCE UNITS LAB APTT 23.0-32.4 sec APTT 32.1 Result Comment: Unfractionated Heparin Therapeutic Ranges: Standard Heparin Nomogram: 53 to 78 seconds (anti-Xa level of 0.3 to 0.7 U/ml) Low Dose/ACS Nomogram: 49 to 67 seconds (anti-Xa level of 0.2 to 0.5 U/ml) Stroke Treatment Nomogram: 49 to 67 seconds (anti-Xa level of 0.2 to 0.5 U/ml) Note: The APTT therapeutic range has been determined for the current lot of laboratory APTT reagent in use throughout the [facility]. Performed By: #### CBC, FIBCT, PT, PTT #### [facility] [address] [place] [id number] [employer] PCR Collected: 10/08/2017 Status: F Source: [place] 6:00 AM [facility] REPOSITORY TYPE CODE TESTS RESULT OUT OF REFERENCE UNITS RANGE LAB SASRC Nasal S aureus Spec Source LAB MRSRES Negative for MRSA MRSA by PCR. PCR LAB SARES Negative for Staph Staphylococcus aureus PCR aureus by PCR. Performed By: #### SAPCR #### [place] [id number] [place] [id number] GASV + ALL Collected: 10/08/2017 Status: F Source: [place] 5:55 AM [facility] REPOSITORY TYPE CODE TESTS RESULT OUT OF REFERENCE UNITS RANGE LAB VPH 7.32-7.42 pH 7.39 LAB VPC2 42-55 mm Hg pCO2 High 59 LAB VPO2 35-45 mm Hg pO2 Low 31 LAB VBE mmol/L Base Excess 9 LAB VHC3 24-28 mmol/L Bicarbonate High 35 LAB VC2C 25-29 mmol/L CO2 Content High 37 LAB O2HBCX 60-85 % Oxyhemoglobin, Willi. 65 LAB CO <2.0 % Carboxyhemoglobin,V 1.0 en LAB METHB 0.4-1.5 % Methemoglobin 1.0 LAB VTMP C Temperature, Body 37.0 LAB VPHTC 7.32-7.42 pH, Temp Corrected 7.39 LAB VPC2T mm Hg pCO2, Temp Correct 59 LAB VPO2T mm Hg pO2, Temp Corrected 31 LAB NAB 135-146 mmol/L Sodium,Whole Bld 145 LAB KWB 3.5-5.0 mmol/L Potassium, Whole Bld 4.4 LAB HGBB 13.0-17.0 g/dL Low Hemoglobin,Total,AC 9.3 L LAB HCTB 39.0-51.0 % Hematocrit, ACL Low 29 LAB IC 1.08-1.30 mmol/L Calcium, Ion, WB 1.14 LAB GLB 60-105 mg/dL Glucose,Whole Bld High 164 LAB LACT 0.5-2.2 mmol/L Lactate High 2.7 Performed By: #### VALLBG #### [facility] [address] [place], [place] [address] GASA + ALL Collected: 10/08/2017 Status: F Source: [place] FOR 4:45 AM [facility] RADIANCE USE ONLY REPOSITORY TYPE CODE TESTS RESULT OUT OF REFERENCE UNITS RANGE LAB PH 7.35-7.45 pH 7.40 LAB PCO2 34-46 mm Hg pCO2 High 55 LAB PO2 85-95 mm Hg pO2 High 184 LAB BE mmol/L Base Excess 7 LAB HCO3 22-26 mmol/L Bicarbonate High 33 LAB CO2CT 22.0-28.0 mmol/L CO2 Content High 35 LAB O2HB 95-98 % Oxyhemoglobin, Art. 97 LAB COHB 0-5.0 % Carboxyhemoglobin,A 1.3 rt LAB MHGB 0.4-1.5 % Methemoglobin 1.0 LAB TEMP C Temperature, Body 37.0 LAB PHTC 7.35-7.45 pH, Temp Corrected 7.40 LAB PCO2T 34-46 mm Hg pCO2, Temp High Correct 55 LAB PO2T mm Hg pO2, Temp Corrected 184 LAB NAB 135-146 mmol/L Sodium,Whole Bld 143 LAB KWB 3.5-5.0 mmol/L Potassium, Whole Bld 4.2 LAB HGBB 13.0-17.0 g/dL Low Hemoglobin,Total,AC 10.3 L LAB HCTB 39.0-51.0 % Hematocrit, ACL Low 32 LAB IC 1.08-1.30 mmol/L Calcium, Ion, WB 1.24 LAB GLB 60-105 mg/dL Glucose,Whole Bld High 149 LAB LACT 0.5-2.2 mmol/L Lactate High 2.9 Performed By: #### ALLBG #### [facility] [address] [place], [place] [address] GASA + ALL Collected: 10/08/2017 Status: F Source: [facility] 3:25 AM [facility] RADIANCE USE ONLY REPOSITORY TYPE CODE TESTS RESULT OUT OF REFERENCE UNITS RANGE LAB PH 7.35-7.45 pH 7.39 LAB PCO2 34-46 mm Hg pCO2 High 55 LAB PO2 85-95 mm Hg pO2 High 182 LAB BE mmol/L Base Excess 7 LAB HCO3 22-26 mmol/L Bicarbonate High 32 LAB CO2CT 22.0-28.0 mmol/L CO2 Content High 34 LAB O2HB 95-98 % Oxyhemoglobin, Art. 97 LAB COHB 0-5.0 % Carboxyhemoglobin,A 1.3 rt LAB MHGB 0.4-1.5 % Methemoglobin 0.9 LAB TEMP C Temperature, Body 37.0 LAB PHTC 7.35-7.45 pH, Temp Corrected 7.39 LAB PCO2T 34-46 mm Hg pCO2, Temp High Correct 55 LAB PO2T mm Hg pO2, Temp Corrected 182 LAB NAB 135-146 mmol/L Sodium,Whole Bld 144 LAB KWB 3.5-5.0 mmol/L Potassium, Whole Bld 4.3 LAB HGBB 13.0-17.0 g/dL Low Hemoglobin,Total,AC 8.5 L LAB HCTB 39.0-51.0 % Hematocrit, ACL Low 26 LAB IC 1.08-1.30 mmol/L Calcium, Ion, WB 1.23 LAB GLB 60-105 mg/dL Glucose,Whole Bld High 112 LAB LACT 0.5-2.2 mmol/L Lactate High 4.6 Performed By: #### ALLBG #### [facility] [address] [place], [place] [address] XR CHEST 1V FRONTAL Observed: 10/08/2017 Status: F Source: [facility] 3:04 AM [facility] REPOSITORY * * *Final Report* * * DATE OF EXAM: Oct 08 2017 3:04AM IVANNA [id number] - XR CHEST 1V FRONTAL PORT / PROCEDURE REASON: Postop check * * * * Physician Interpretation * * * * EXAMINATION: CHEST RADIOGRAPH (PORTABLE SINGLE VIEW AP) Exam Date/Time: 10/08/2017 3:04 AM Indication: Postop check MQ: XCP_4 Comparison: 1 day prior RESULT: See impression. IMPRESSION: Lines, tubes, and devices: There has been interval sternotomy with sternal supervisor line department in place. Also noted are radiopaque sponges overlying the chest. Endotracheal tube, NG/OG tube, right pulmonary arterial catheter, mediastinal drains and bilateral chest tubes are in place. The tip of the pulmonary arterial catheter overlies the main pulmonary artery. Endovascular stent graft has been placed in the descending thoracic aorta. Lungs and pleura: Patchy reticular opacities are noted, likely related to pulmonary edema. Trace to small right pleural effusion is noted. No large pneumothorax is noted. Cardiomediastinal silhouette: Cardiomediastinal silhouette is mildly enlarged. Other: Small amount of subcutaneous emphysema is noted bilaterally. [facility] Transcribe Date/Time: Oct 08 2017 7:26A Dictated by : EFREN RAMIREZ MD This examination was interpreted and the report reviewed and electronically signed by: EFREN RAMIREZ MD on Oct 08 2017 7:27AM EST [id number] CBC Collected: 10/08/2017 Status: F Source: [place] 3:00 AM [facility] REPOSITORY TYPE CODE TESTS RESULT OUT OF REFERENCE UNITS RANGE LAB WBC 3.70-11.00 k/uL WBC 4.33 LAB RBC 4.20-6.00 m/uL Low RBC 2.28 LAB HGB 13.0-17.0 g/dL Low Hemoglobin 7.1 LAB HCT 39.0-51.0 % Low Hematocrit 20.5 LAB MCV 80.0-100.0 fL MCV 89.9 LAB MCH 26.0-34.0 pG MCH 31.1 LAB MCHC 30.5-36.0 g/dL MCHC 34.6 LAB RDWCV 11.5-15.0 % RDW-CV High 15.1 LAB PLTCT 150-400 k/uL Low Platelet Count 117 LAB MPV 9.0-12.7 fL MPV 9.4 LAB ABSNUC <0.01 k/uL Absolute nRBC <0.01 Performed By: #### CBC, FIBCT, PT, PTT #### [facility] [address] [place], [place] [address] FIBRINOGEN Collected: 10/08/2017 Status: F Source: [place] 3:00 AM [facility] REPOSITORY TYPE CODE TESTS RESULT OUT OF REFERENCE UNITS RANGE LAB FIBCT 200-400 mg/dL Low Fibrinogen 197 Performed By: #### CBC, FIBCT, PT, PTT #### [facility] [address], [place] [address] PROTIME Collected: 10/08/2017 Status: F Source: [place] 3:00 AM [facility] REPOSITORY TYPE CODE TESTS RESULT OUT OF RANGE REFERENCE UNITS LAB PSEC 9.7-13.0 sec High PT Sec 13.8 LAB INR 0.9-1.3 High PT INR 1.4 Result Comment: Vitamin K Antagonist (VKA) Therapeutic Range: INR 2 to 3 (Target INR of 2.5) Note: For patients treated with VKA drugs, such as warfarin, the [place] [employer] 2012 Guideline recommends a therapeutic INR range of 2 to 3 (target INR of 2.5). This recommendation includes high-risk patients with antiphospholipid syndrome with previous arterial or venous thromboembolism, current-generation mechanical or bioprosthetic aortic heart valve replacement. Note: Patients with mechanical aortic valve replacement and additional risk factors for thromboembolic events (atrial fibrillation, previous thromboembolism, LV dysfunction, hypercoagulable conditions) or an older generation mechanical AVR (i.e., ball in-Cage) or any mechanical MVR should have a INR therapeutic range of 2.5 to 3.5 (target INR of 3). Phi GH, et al. Chest 2012, 141:7S-47S Regis GARSIA et al. [facility] 2017, 70: 252-289 Performed By: #### CBC, FIBCT, PT, PTT #### [facility] [address] [place], [place] [address] APTT Collected: 10/08/2017 Status: F Source: [place] 3:00 AM [facility] REPOSITORY TYPE CODE TESTS RESULT OUT OF RANGE REFERENCE UNITS LAB APTT 23.0-32.4 sec High APTT 45.4 Result Comment: Unfractionated Heparin Therapeutic Ranges: Standard Heparin Nomogram: 53 to 78 seconds (anti-Xa level of 0.3 to 0.7 U/ml) Low Dose/ACS Nomogram: 49 to 67 seconds (anti-Xa level of 0.2 to 0.5 U/ml) Stroke Treatment Nomogram: 49 to 67 seconds (anti-Xa level of 0.2 to 0.5 U/ml) Note: The APTT therapeutic range has been determined for the current lot of laboratory APTT reagent in use throughout the [facility]. Performed By: #### CBC, FIBCT, PT, PTT #### [facility] [address] [place], [place] [address] GASA + ALL Collected: 10/08/2017 Status: F Source: [place] FOR 2:25 AM [facility] RADIANCE USE ONLY REPOSITORY TYPE CODE TESTS RESULT OUT OF REFERENCE UNITS RANGE LAB PH 7.35-7.45 pH 7.39 LAB PCO2 34-46 mm Hg pCO2 High 52 LAB PO2 85-95 mm Hg pO2 High 208 LAB BE mmol/L Base Excess 6 LAB HCO3 22-26 mmol/L Bicarbonate High 31 LAB CO2CT 22.0-28.0 mmol/L CO2 Content High 32 LAB O2HB 95-98 % Oxyhemoglobin, High Art. 99 LAB COHB 0-5.0 % Carboxyhemoglobin,A 0.6 rt LAB MHGB 0.4-1.5 % Methemoglobin Low 0.3 LAB TEMP C Temperature, Body 37.0 LAB PHTC 7.35-7.45 pH, Temp Corrected 7.39 LAB PCO2T 34-46 mm Hg pCO2, Temp High Correct 52 LAB PO2T mm Hg pO2, Temp Corrected 208 LAB NAB 135-146 mmol/L Sodium,Whole Bld High 148 LAB KWB 3.5-5.0 mmol/L Potassium, Whole Bld 3.9 LAB HGBB 13.0-17.0 g/dL Low Hemoglobin,Total,AC 7.6 L LAB HCTB 39.0-51.0 % Hematocrit, ACL Low 24 LAB IC 1.08-1.30 mmol/L Calcium, Ion, WB 1.27 LAB GLB 60-105 mg/dL Glucose,Whole Bld 85 LAB LACT 0.5-2.2 mmol/L Lactate High 6.1 Performed By: #### ALLBG #### [facility] [address] [place], [place] [address] PROGRESS Observed: 10/08/2017 Status: COMPLETED Source: [place] 1:42 AM [facility] REPOSITORY HNO ID: [id number] Author: Nataliya Umaña Service: Critical Care Author Type: Nurse Practitioner Type: Progress Notes Filed: 10/08/2017 5:43 AM Note Text: [facility] Admission Note Name: Jose Gustafson Principal Diagnosis: Dissection of thoracic aorta (HCC) Indication for Surgery: Spontaneous Rupture of Aorta LVEF: Normal RVF: Normal Important/Relevant PMH/PSH: HTN, asthma, hx kidney stones Preoperative Hospital Course (narrative): Mr. Gustafson is a 52 yo M with PMH HTN, Asthma, and hx of kidney stones who is transferred to [facility] for evaluation of Type A aortic dissection Procedure/Surgeries: 10/08/2017 Total arch replacement with FET under DHCA Airway Difficulty: Grade I - No special instrumentation OR Course: Transient or mild hypotension and Coagulopathy/bleeding Pacing wires: Yes: Ventricular: When discontinuing pacing wires: Cut all pacing wires Postoperative Course/General Impression: (narrative or log of major events with date of onset): Arrived to CVICU intubated, and sedated, on iVeletri, open chest, maintain overnight, plan to go back to OR later today for possible closure. Coagulopathy/bleeding intraop, transfused multiple blood products in OR, transfuse postop as needed. Hypotensive intraop, arrived on 4mcg Levo and 0.02 Vaso, wean to goal MAP 65-75. Pain and glycemic control. Issues to communicate at signout: 10/08/2017 Maintain intubated, maintain iVeletri overnight Wean Levo and Vaso as able Coagulopathy - transfuse as needed OPEN CHEST - plan to go back to OR later today for possible closure Additional Hospital Problems Problem Dissection of Thoracic Aorta (Hcc) Patient with chest pain at OSH CT chest showing type a dissection 10/08/2017 s/p Total arch replacement with FET under DHCA A/P: Arrived to CVICU with open chest due to bleeding intraop. Plan to take back to OR later today for possible closure. Atelectasis Grade 1 airway A/P: Arrived to CVICU intubated on iVeletri, maintain overnight. Asthma Preop on Breo Ellipta and Flonase A/P: Resume home meds postop when extubated. Postoperative Hypotension A/P: Arrived to CVICU on 4mcg Levo and 0.02 Vaso, wean as able to goal MAP 65-75. Essential Hypertension Patient with HTN on lisinopril 5 at baseline BPs on checks have been 115-130s systolic at latest visits A/P: Arrived to CVICU hypotensive requiring vasopressor support. Hold BP meds for now. Pain, Postoperative, Acute A/P: Fentanyl infusion while intubated with open chest for pain control. Coagulopathy (Hcc) A/P: Coagulopathy/bleeding intraop, transfused 10 FFP, 8 PRBC, 6 platelets, 4 cryo in OR. Since arrival at 0100, have transfused 6 FFP, 8 PRBC, 3 platelets, 2 cryo. F/u coags, transfuse as needed. Acute Blood Loss Anemia A/P: H/H 02/16 on arrival, received 8 PRBC intraop, transfuse 2 units on arrival, monitor and transfuse as needed. Infusions: Fentanyl Norepinephrine Propofol Vasopressin CVICU Admission ECG: Reviewed CVICU Admission CXR: Reviewed Neuro: Sedation . Cardiovascular: Rhythm: regular rate and rhythm and Rate:normal sinus rhythm MAP: 65 mmHg Cardiac Index: 3.6 L/min/m2 Pacemaker : Temporary Epicardial - Pacing Mode: OFF ICD: No Peripheral pulses present: All present Pulmonary: Clear to auscultation and Breath sounds equal Ventilator: Intubated Potential prolonged intubation : Yes (select all that apply) Open chest and Bleeding/coagulopathy Abdominal: Soft and Non-tender Continued need for urinary catheter: Yes - clinical indication: Patient post major surgery requiring fluid balance and input and output measurement. DAY OF SURGERY PLAN: Standard Protocol, intubated patient: Cardiovascular monitoring, stabilization of blood pressure and cardiac function, wean to extubate when ready per protocol. Pain control, glycemic control, DVT prophylaxis, antibiotic prophylaxis. This patient has a high probability of sudden, clinically significant deterioration, which requires the highest level of preparedness to intervene urgently. I participated in the decision making and personally managed or directed the management of the following life and organ supporting interventions that required my frequent assessment to treat or prevent imminent deterioration of: Coagulopathy and Hypotension that I treated with transfusion of blood and /or blood products, electrolytes, fluids, mechanical ventilation, PEEP and vasopressors Atelectasis and Hypoxemia / Increased O2 requirements that I treated with bronchopulmonary hygiene, mechanical ventilation, weaning from mechanical ventilation, inhaled epoprostenol, management of FiO2 and PEEP I personally spent 50 minutes of critical care time treating the patient. Time devoted to any procedures I billed separately is not included. SIGNATURE: Nataliya Umaña CNP DATE of SERVICE: 10/08/2017 TIME of SERVICE: 1:42 AM GASV + ALL Collected: 10/08/2017 Status: F Source: [place] 1:21 AM [facility] REPOSITORY TYPE CODE TESTS RESULT OUT OF REFERENCE UNITS RANGE LAB VPH 7.32-7.42 pH 7.37 LAB VPC2 42-55 mm Hg pCO2 55 LAB VPO2 35-45 mm Hg pO2 42 LAB VBE mmol/L Base Excess 5 LAB VHC3 24-28 mmol/L Bicarbonate High 31 LAB VC2C 25-29 mmol/L CO2 Content High 33 LAB O2HBCX 60-85 % Oxyhemoglobin, Willi. 80 LAB CO <2.0 % Carboxyhemoglobin,V 1.0 en LAB METHB 0.4-1.5 % Methemoglobin High 1.6 LAB VTMP C Temperature, Body 37.0 LAB VPHTC 7.32-7.42 pH, Temp Corrected 7.37 LAB VPC2T mm Hg pCO2, Temp Correct 55 LAB VPO2T mm Hg pO2, Temp Corrected 42 LAB NAB 135-146 mmol/L Sodium,Whole Bld High 148 LAB KWB 3.5-5.0 mmol/L Potassium, Whole Low Bld 3.1 LAB HGBB 13.0-17.0 g/dL Low Hemoglobin,Total,AC 6.7 L LAB HCTB 39.0-51.0 % Hematocrit, ACL Low 21 LAB IC 1.08-1.30 mmol/L Calcium, Ion, WB 1.23 LAB GLB 60-105 mg/dL Glucose,Whole Bld 76 LAB LACT 0.5-2.2 mmol/L Lactate High 8.5 Performed By: #### VALLBG #### [facility] [address] [place], [place] [address] GASA + ALL Collected: 10/08/2017 Status: F Source: [place] FOR 1:17 AM [facility] RADIANCE USE ONLY REPOSITORY TYPE CODE TESTS RESULT OUT OF REFERENCE UNITS RANGE LAB PH 7.35-7.45 pH 7.42 LAB PCO2 34-46 mm Hg pCO2 45 LAB PO2 85-95 mm Hg pO2 High 224 LAB BE mmol/L Base Excess 5 LAB HCO3 22-26 mmol/L Bicarbonate High 29 LAB CO2CT 22.0-28.0 mmol/L CO2 Content High 30 LAB O2HB 95-98 % Oxyhemoglobin, Art. 97 LAB COHB 0-5.0 % Carboxyhemoglobin,A 0.8 rt LAB MHGB 0.4-1.5 % Methemoglobin High 1.6 LAB TEMP C Temperature, Body 37.0 LAB PHTC 7.35-7.45 pH, Temp Corrected 7.42 LAB PCO2T 34-46 mm Hg pCO2, Temp Correct 45 LAB PO2T mm Hg pO2, Temp Corrected 224 LAB NAB 135-146 mmol/L Sodium,Whole Bld High 147 LAB KWB 3.5-5.0 mmol/L Potassium, Whole Low Bld 3.2 LAB HGBB 13.0-17.0 g/dL Low Hemoglobin,Total,AC 7.0 L LAB HCTB 39.0-51.0 % Hematocrit, ACL Low 22 LAB IC 1.08-1.30 mmol/L Calcium, Ion, WB 1.19 LAB GLB 60-105 mg/dL Glucose,Whole Bld 79 LAB LACT 0.5-2.2 mmol/L Lactate High 9.1 Performed By: #### ALLBG #### [facility] [address] [place] [address] ANES POST Observed: 10/08/2017 Status: COMPLETED Source: [place] 1:16 AM [facility] REPOSITORY HNO ID: [id number] Author: Liana Navarro Service: Anesthesiology Author Type: Physician Type: Anesthesia PostOp Filed: 10/08/2017 1:18 AM Note Text: POST ANESTHESIA EVALUATION NOTE SERVICE DATE: 10/08/2017 SERVICE TIME: 109 : 1964 Vitals: 10/08/17 0103 Temp: 36.3 ?C (97.3 ?F) 10/07/17 1406 10/07/17 1410 10/07/17 1411 10/07/17 1420 Arterial BP 1: 77/10 BP: 122/96 110/69 110/69 152/83 10/07/17 1410 10/07/17 1411 10/07/17 1420 10/08/17 0055 Pulse: 79 76 100 98 10/07/17 1411 10/07/17 1420 10/08/17 0055 10/08/17 0115 Resp: 22 22 16 16 10/07/17 1411 10/07/17 1420 10/07/17 2255 10/08/17 0055 SpO2: 95% 98% 100% 100% Validated Vital Signs: HR: 96; BP: 100/50; RR: 14; SpO2%: 100; Temperature: 36.2 POST ANES STATUS: PACU/ICU Patient Condition: Stable on pressors, open chest Neurological Status: On intravenous sedation. Pulmonary Status: On invasive mechanical ventilation. Airway Control: Intubated on mechanical ventilation. Cardiovascular Status: Stable and On vasopressor Pain: Adequately controlled Postoperative Nausea/Vomiting: No significant post operative nausea or vomiting Postoperative Hydration Status: Adequate. Anesthetic Complications: None Recommendation: Continue current plan of care Other Remarks: SIGNATURE: Liana Navarro MD PATIENT NAME: Jose Gustafson DATE: October 08, 2017 TIME: 1:17 AM PAGER/CONTACT #: [phone] CBC Collected: 10/08/2017 Status: F Source: [place] 1:05 AM [facility] REPOSITORY TYPE CODE TESTS RESULT OUT OF REFERENCE UNITS RANGE LAB WBC 3.70-11.00 k/uL WBC 4.00 LAB RBC 4.20-6.00 m/uL Low RBC 2.21 LAB HGB 13.0-17.0 g/dL Low Hemoglobin 6.8 LAB HCT 39.0-51.0 % Low Hematocrit 20.1 LAB MCV 80.0-100.0 fL MCV 91.0 LAB MCH 26.0-34.0 pG MCH 30.8 LAB MCHC 30.5-36.0 g/dL MCHC 33.8 LAB RDWCV 11.5-15.0 % RDW-CV 14.9 LAB PLTCT 150-400 k/uL Low Platelet Count 112 LAB MPV 9.0-12.7 fL MPV 9.1 LAB ABSNUC <0.01 k/uL Absolute nRBC <0.01 Performed By: #### CBC, FIBCT, PT, PTT, CMP #### [facility] [address] [place], [place] [address] FIBRINOGEN Collected: 10/08/2017 Status: F Source: [place] 1:05 AM [facility] REPOSITORY TYPE CODE TESTS RESULT OUT OF REFERENCE UNITS RANGE LAB FIBCT 200-400 mg/dL Low Fibrinogen 179 Performed By: #### CBC, FIBCT, PT, PTT, CMP #### [facility] [address] [place], [place] [address] PROTIME Collected: 10/08/2017 Status: F Source: [place] 1:05 AM [facility] REPOSITORY TYPE CODE TESTS RESULT OUT OF RANGE REFERENCE UNITS LAB PSEC 9.7-13.0 sec High PT Sec 14.7 LAB INR 0.9-1.3 High PT INR 1.5 Result Comment: Vitamin K Antagonist (VKA) Therapeutic Range: INR 2 to 3 (Target INR of 2.5) Note: For patients treated with VKA drugs, such as warfarin, the [place] [employer] 2012 Guideline recommends a therapeutic INR range of 2 to 3 (target INR of 2.5). This recommendation includes high-risk patients with antiphospholipid syndrome with previous arterial or venous thromboembolism, current-generation mechanical or bioprosthetic aortic heart valve replacement. Note: Patients with mechanical aortic valve replacement and additional risk factors for thromboembolic events (atrial fibrillation, previous thromboembolism, LV dysfunction, hypercoagulable conditions) or an older generation mechanical AVR (i.e., ball in-Cage) or any mechanical MVR should have a INR therapeutic range of 2.5 to 3.5 (target INR of 3). Phi GH, et al. Chest 2012, 141:7S-47S Regis GARSIA, et al. [facility] 2017, 70: 252-289 Performed By: #### CBC, FIBCT, PT, PTT, CMP #### [facility] [address] [place], [place] [address] APTT Collected: 10/08/2017 Status: F Source: [place] 1:05 [facility] REPOSITORY TYPE CODE TESTS RESULT OUT OF RANGE REFERENCE UNITS LAB APTT 23.0-32.4 sec High APTT 79.6 Result Comment: Unfractionated Heparin Therapeutic Ranges: Standard Heparin Nomogram: 53 to 78 seconds (anti-Xa level of 0.3 to 0.7 U/ml) Low Dose/ACS Nomogram: 49 to 67 seconds (anti-Xa level of 0.2 to 0.5 U/ml) Stroke Treatment Nomogram: 49 to 67 seconds (anti-Xa level of 0.2 to 0.5 U/ml) Note: The APTT therapeutic range has been determined for the current lot of laboratory APTT reagent in use throughout the [facility]. Performed By: #### CBC, FIBCT, PT, PTT, CMP #### [facility] [address] [place], [place] [address] COMP METABOLIC PANEL Collected: 10/08/2017 Status: F Source: [place] 1:05 AM [facility] REPOSITORY TYPE CODE TESTS RESULT OUT OF REFERENCE UNITS RANGE LAB TP 6.3-8.0 g/dL Low Protein, Total 4.3 LAB ALB 3.9-4.9 g/dL Low Albumin 2.6 LAB CA 8.5-10.2 mg/dL Calcium, Total 9.8 Result Comment: Result rechecked. LAB TBIL 0.2-1.3 mg/dL Bilirubin, High Total 1.5 LAB ALKP 36-108 U/L Low Alkaline Phosphatase 28 LAB AST 14-40 U/L AST High 205 Result Comment: Results may be falsely increased due to interference by hemolysis. Suggest reorder as clinically indicated. LAB GLU 74-99 mg/dL Glucose 82 Result Comment: The [place] [employer] (ADA) provides guidance for cutoff values for fasting glucose and random glucose. The ADA defines fasting as no caloric intake for at least 8 hours. Fas ting plasma glucose results between 100 to 125 mg/dL indicate increased risk for diabetes (prediabetes). Fasting plasma glucose results greater than or equal to 126 mg/dL meet the criteria for diagnosis of diabetes. In the absence of unequivocal hyperglycemia, results should be confirmed by repeat testing. In a patient with classic symptoms of hyperglycemia or hyperglycemic crisis, random plasma glucose results greater than or equal to 200 mg/dL meet the criteria for diagnosis of diabetes. Reference: Standards of Medical Care in Diabetes 2016, [place] [employer]. Diabetes Care. 2016.39(Suppl 1). LAB BUN 9-24 mg/dL BUN 13 LAB CRET 0.73-1.22 mg/dL Creatinine High 1.52 LAB NA 136-144 mmol/L Sodium High 152 Result Comment: Result rechecked. LAB K 3.7-5.1 mmol/L Potassium Low 3.4 LAB CL 97-105 mmol/L Chloride 104 Result Comment: Result rechecked. LAB CO2 22-30 mmol/L CO2 30 Result Comment: Result rechecked. LAB AGAP 9-18 mmol/L Anion Gap 18 LAB ALT 10-54 U/L High ALT 178 LAB GFRAA eGFR- 58 Amer. LAB GFRNAA . eGFR-All 48 Other Races Result Comment: eGFR (Estimated GFR) Units of measure: mL/min/1.73 meters squared eGFR is derived from the reexpressed MDRD Study equation using the following parameters: serum creatinine, age, gender and race. The creatinine assay has been calibrated to be traceable to IDMS. An eGFR <60 mL/min/1.73m2 for >3 months is consistent with chronic kidney disease. Refer to KDOQI guidelines for clinical interpretation. In patients with unstable renal function, e.g. those with acute kidney injury, the eGFR may not accurately reflect actual GFR. Performed By: #### CBC, FIBCT, PT, PTT, CMP #### [facility] [address] [place] [id number] BRIEF OP NOT Observed: 10/08/2017 Status: COMPLETED Source: [place] 12:34 AM [facility] REPOSITORY HNO ID: [id number] Author: Javier Dougherty Service: Cardiac Surgery Author Type: Physician Type: Brief Op Note Filed: 10/08/2017 12:41 AM Note Text: CARDIOTHORACIC BRIEF OP NOTE LOG ID: [id number] SURGERY/PROCEDURE DATE: 10/07/2017 - 10/08/2017 INCISION/PROCEDURE START TIME: 3:19 PM INCISION CLOSE/PROCEDURE END TIME: 12:26 AM SURGEON(S) AND CHISELER HEAD(S): Surgeon(s) and Role: * Arpit Mckenzie - Primary * Javier Dougherty - Assisting Registered Nurse Spinning Doffer: Kings (Rn) Alexus RN; Huma (Rn) Tonya, HERMINIO; Dameon (Rn) Uriel Duran (Rn) HERMINIO KrugerWOOL PRESSER AND ANESTHESIA: Total arch replacement with FET under DHCA Open chest 2 V wires (CUT) 2 med, 2 Blakes and 1 left and 1 [address] pleural [address] ANESTHESIA: General BRIEF FINDINGS: greater curvature of the aortic arch was torn longitudinally from innominate artery to distal arch. There was no obvious dissection. PREOPERATIVE DIAGNOSIS: Rupture of the aorta POSTOPERATIVE DIAGNOSIS: Rupture of the aorta ESTIMATED BLOOD LOSS: 500 ml SPECIMENS: aorta COMPLICATIONS: vasoplegia SIGNATURE: Javier Stephenson MD PATIENT NAME: Jose Gustafson DATE: October 08, 2017 TIME: 12:34 AM PAGER/CONTACT #: [phone] GASA + ALL Collected: 10/08/2017 Status: F Source: [facility] 12:10 AM [facility] RADIANCE USE ONLY REPOSITORY TYPE CODE TESTS RESULT OUT OF REFERENCE UNITS RANGE LAB PH 7.35-7.45 pH 7.43 LAB PCO2 34-46 mm Hg pCO2 39 LAB PO2 85-95 mm Hg pO2 High 227 LAB BE mmol/L Base Excess 2 LAB HCO3 22-26 mmol/L Bicarbonate 26 LAB CO2CT 22.0-28.0 mmol/L CO2 Content 27 LAB O2HB 95-98 % Oxyhemoglobin, Art. 97 LAB COHB 0-5.0 % Carboxyhemoglobin, 0.7 Art LAB MHGB 0.4-1.5 % Methemoglobin 1.2 LAB TEMP C Temperature, Body 37.0 LAB PHTC 7.35-7.45 pH, Temp Corrected 7.43 LAB PCO2T 34-46 mm Hg pCO2, Temp Correct 39 LAB PO2T mm Hg pO2, Temp Corrected 227 LAB NAB 135-146 mmol/L Sodium,Whole Bld 142 LAB KWB 3.5-5.0 mmol/L Potassium, Low Whole Bld 3.3 LAB HGBB 13.0-17.0 g/dL Low Hemoglobin,Total,A 9.1 CL LAB HCTB 39.0-51.0 % Hematocrit, Low ACL 28 LAB IC 1.08-1.30 mmol/L Calcium, Ion, WB 1.20 LAB GLB 60-105 mg/dL Glucose,Whole High Bld 155 LAB LACT 0.5-2.2 mmol/L Lactate High 10.4 LAB ABGCOM Blood Gas Comm, Art Urgent value Result Comment: LACT LAB ACBWHO Notified REPORTED TO Whom, Art OR Radha [place] [facility] ACBDTE Notify [id number] Date, Art LAB ACBTME Notify [id number] Time, Art Performed By: #### ALLBG #### [facility] [address] [place], [place] [address] OPERATIVE NO Observed: 10/08/2017 Status: COMPLETED Source: [place] 12:00 AM [facility] REPOSITORY HNO ID: [id number] Author: Arpit Mckenzie Service: Cardiovascular Surgery Author Type: Physician Type: Operative Report Filed: 10/08/2017 5:28 PM Note Text: [place] [id number] [place] OPERATIVE REPORT DEPARTMENT OF THORACIC AND CARDIOVASCULAR SURGERY NAME: [facility]SE [facility] #: [id number] DATE: 10/08/2017 AGE: 52 SURGEON 1: Arpit Mckenzie M.D. SURGEON 2: CHISELER HEAD 1: Javier Dougherty M.D. CHISELER HEAD 2: ANESTHESIA: General. OPERATIONS: Median sternotomy, open heart, total arch replacement with # 26 Stent Graft Frozen elephant trunk under deep hypothermic circulatory arrest. 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 OPERATIVE INDICATIONS:Same OPERATIVE PROCEDURE: The patient was prepped and draped in the usual sterile fashion. Median sternotomy incision was made. We opened the chest and we opened the pericardium and we have a quite at least 300 mL of dark blood around the pericardium. We identified a large intramural hematoma of the ascending aorta. We exposed the right subclavian artery. We anastomosed Gelweave graft #8 under 5000 heparin with 5-0 prolene running suture technique, achieving a a really good back blood flow. Then, we full heparinazed and cannulated the SVC and IVC caval cannulas. We placed the patient on cardiopulmonary bypass as soon as ACT was more than 500 seconds. After full heparinization, I started cooling down the patient's body temperature and put ice pack on the head. As soon as we reached 20 degrees Celsius blood temperature, the SVC was snared and retrocerebral blood perfusion started. The systemic blood flow was turning down and circulatory arrest started , the aortic cross-clamp was released.Antegrade and retrograde blood cardioplegia every 15 minutes was administrated with arresting the heart. Then, we transected the ascending aorta. We identified all the roots structurally normal, so we gave antegrade cardioplegia through the coronary ostium. As soon as we opened the aorta, we identified the tear of the aorta at the greater curvature of the aortic arch between the innominate artery to the distal arch with a contained rupture of arch hematoma that was connected blood to the right chest, that was accumulated at least 2 L of blood and then we completely evacuated. We ended doing a #14 Gelweave Graft to the innominate trunk as well as the left caotid artery with 4- 0 prolene running technique. This took 20 to 25 minutes for circulatory arrest. Then, we de-aired the neck vessels and we started giving antegrade flow through the right subclavian artery, antegrade flow to protect the brain around 800 mL/minute with a cool temperature. Then, we did an next anastomosis to the left subclavian artery 8 mm Gelweave graft . Then we did a Frozen elephant trunk with #26 stent graft without any complication. We sutured the elephant graft to the wall of the aorta with 4-0 Prolene running technique double layer and Andriy felt. Then, after that, we used a #26 Gelweave graft to reanastomosed the proximal descending aorta to the Gelweave graft including the suture line stent graft with 4-0 Prolene running suture technique. Then, after that, we connected the innominate 16 mm Gelweave graft of the neck vessel to the main aortic graft with 4-0 Prolene running suture technique, and as soon as we finished the anastomosis, we de-aired the aorta and we opened and connected to the systemic circulation and we reassumed the systemic circulation and started rewarming the patient and the main graft was cross- clamped. Then, we connected the subclavian artery graft to the main aortic graft with 5-0 running suture technique and then we did the proximal anastomosis of the main graft to the proximal ascending aorta with 4-0 prolene running technique double layer, using bovine pericardial strip. After that, we de- aired the heart. Antegrade and retrograde cardioplegia hotel valet attendant was given. The aorticcross-clamp was released. We allowed for perfusion and coming off the pump with satisfactory hemodynamics when the body temperature reach 36 C. Protamine was given. The cannulas were removed. We waited for around 2 hours to control the oozing/coagulopathy. Then, as soon as we satisfied with hemodynamics, we decided to leave the chest open. Due to swelling of the mediastinal. We left the two mediastinal chest tubes, 2 pleural and 2 Blakes. We put the vacuum dressing. The patient tolerated very well the procedure and was transferred to the CVICU in stable condition. We came off the pump with a body temperature of 36.5 centigrade. CHARGE HAND was Aidee Trevloidawendi. START OF OPERATION: 3:19 p.m. FINISH OF OPERATION: 12:26 a.m. ESTIMATED BLOOD LOSS: 500 mL. DRAINS:2 mediastinal, 2 chest tubes, 2 Blakes SPECIMENS: Aorta. Arpit Mckenzie M.D. JN:[id number] /[id number] cc: OPERATIVE NO Observed: 10/08/2017 Status: COMPLETED Source: [place] 12:00 AM [facility] REPOSITORY HNO ID: [id number] Author: Arpit Mckenzie Service: Cardiovascular Surgery Author Type: Physician Type: Operative Report Filed: 10/09/2017 9:26 AM Note Text: [place] [address] [place] OPERATIVE REPORT DEPARTMENT OF THORACIC AND CARDIOVASCULAR SURGERY NAME: [facility] #: [id number] DATE: 10/08/2017 AGE: 52 SURGEON 1: Arpit Mckenzie M.D. SURGEON 2: CHISELER HEAD 1: Mauricio Nino M.D. CHISELER HEAD 2: ANESTHESIA:General OPERATIONS: Chest exploration, evacuation of hematoma, open chest, chest washout. 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 OPERATIVE INDICATIONS:Same OPERATIVE PROCEDURE: The patient was prepped and draped in the usual sterile fashion. With removal of vacuum dressing, we identified around 300 mL of old blood around the heart. We completely removed all the clots, as well as cleaned completely both pleuras or all the clots and fluid. There was no active bleeding, just some coagulopathy, so we completely irrigated with vancomycin solution and gentamicin solution and as soon as we controlled the hemostasis and we were satisfied with hemostasis and hemodynamics, all the tissue was still swollen, so we left the chest open again with 2 mediastinal chest tubes, 2 pleural chest tubes, and 2 new Terry chest tubes and then we put the vacuum again. The patient tolerated very well the procedure and was transferred to the CVICU in stable condition with the chest open. CHARGE HAND was Jamaal Washingtonmarcelo. We started the operation at 8:14 a.m. We finished the operation at 9:03 a.m. START OF OPERATION: 8:14 a.m. FINISH OF OPERATION:9:03 a.m. ESTIMATED BLOOD LOSS: 500. DRAINS:2 mediastinal, 2 chest tubes, 2 Blakes SPECIMENS: Mediastinal clot. Arpit Mckenzie M.D. JN:[id number] /[id number] cc: OPERATIVE NO Observed: 10/08/2017 Status: COMPLETED Source: [place] 12:00 AM [facility] REPOSITORY [facility] ID: [id number] Author: Arpit Mckenzie Service: Cardiovascular Surgery Author Type: Physician Type: Operative Report Filed: 10/15/2017 3:40 PM Note Text: [place] [address] [place] OPERATIVE REPORT DEPARTMENT OF THORACIC AND CARDIOVASCULAR SURGERY NAME: JOSE [facility] #: [id number] DATE: 10/08/2017 AGE: 52 SURGEON 1: Arpit Mckenzie M.D. SURGEON 2: CHISELER HEAD 1: Mauricio Nino M.D. (No qualified residents were available to assist.) CHISELER HEAD 2: ANESTHESIA: General. OPERATIONS: Chest exploration, evacuation of hematoma, open chest, chest washout. 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 OPERATIVE INDICATIONS:Same OPERATIVE PROCEDURE: The patient was prepped and draped in the usual sterile fashion. With removal of vacuum dressing, we identified around 300 mL of old blood around the heart. We completely removed all the clots, as well as cleaned completely both pleuras or all the clots and fluid. There was no active bleeding, just some coagulopathy, so we completely irrigated with vancomycin solution and gentamicin solution and as soon as we controlled the hemostasis and we were satisfied with hemostasis and hemodynamics, all the tissue was still swollen, so we left the chest open again with 2 mediastinal chest tubes, 2 pleural chest tubes, and 2 new Terry chest tubes and then we put the vacuum again. The patient tolerated very well the procedure and was transferred to the CVICU in stable condition with the chest open. CHARGE HAND was Jamaal Lentz. We started the operation at 8:14 a.m. We finished the operation at 9:03 a.m. START OF OPERATION: 8:14 a.m. FINISH OF OPERATION:9:03 a.m. ESTIMATED BLOOD LOSS: 500. DRAINS:2 mediastinal, 2 chest tubes, 2 Blakes SPECIMENS: Mediastinal clot. Arpit Mckenzie M.D. JN:[id number] Revised [facility] 10/15/17 /[id number] cc: GASA + ALL Collected: 10/07/2017 Status: F Source: [place] FOR 11:36 PM [facility] USE ONLY REPOSITORY TYPE CODE TESTS RESULT OUT OF REFERENCE UNITS RANGE LAB PH 7.35-7.45 pH Low 7.29 LAB PCO2 34-46 mm Hg pCO2 High 55 LAB PO2 85-95 mm Hg pO2 High 181 LAB BE mmol/L Base Excess NEG 1 LAB HCO3 22-26 mmol/L Bicarbonate 26 LAB CO2CT 22.0-28.0 mmol/L CO2 Content 28 LAB O2HB 95-98 % Oxyhemoglobin, Art. 98 LAB COHB 0-5.0 % Carboxyhemoglobin, 1.2 Art LAB MHGB 0.4-1.5 % Methemoglobin 0.7 LAB TEMP C Temperature, Body 37.0 LAB PHTC 7.35-7.45 pH, Temp Low Corrected 7.29 LAB PCO2T 34-46 mm Hg pCO2, Temp High Correct 55 LAB PO2T mm Hg pO2, Temp Corrected 181 LAB NAB 135-146 mmol/L Sodium,Whole Bld 145 LAB KWB 3.5-5.0 mmol/L Potassium, Low Whole Bld 3.3 LAB HGBB 13.0-17.0 g/dL Low Hemoglobin,Total,A 8.7 CL LAB HCTB 39.0-51.0 % Hematocrit, Low ACL 27 LAB IC 1.08-1.30 mmol/L Calcium, Ion, Low WB 1.03 LAB GLB 60-105 mg/dL Glucose,Whole High Bld 185 LAB LACT 0.5-2.2 mmol/L Lactate High 11.9 LAB ABGCOM Blood Gas Comm, Art Urgent value Result Comment: LACT LAB ACBWHO Notified Whom, Art Called to and read back by Result Comment: OR 63 K [facility] LAB ACBDTE [id number] Notify Date, Art LAB ACBTME [id number] Notify Time, Art Performed By: #### ALLBG #### [facility] [place] [address] PLATELET COUNT Collected: 10/07/2017 Status: F Source: [place] 11:30 PM [facility] REPOSITORY TYPE CODE TESTS RESULT OUT OF REFERENCE UNITS RANGE LAB PLTCT 150-400 k/uL Low Platelet Count 110 Performed By: #### PLTCT, FIBCT #### [facility] [address] [place], [place] [address] FIBRINOGEN Collected: 10/07/2017 Status: F Source: [place] 11:30 PM [facility] REPOSITORY TYPE CODE TESTS RESULT OUT OF REFERENCE UNITS RANGE LAB FIBCT 200-400 mg/dL Low Fibrinogen 171 Result Comment: Test result is abnormal, but may be spuriously affected by hemolysis, icterus or discolored plasma. Specimen slightly hemolyzed. Sample checked for a clot. Performed By: #### PLTCT, FIBCT #### [facility] [address] [place], [place] [address] THROMBOGRAPH HEPASE Collected: 10/07/2017 Status: F Source: [place] 11:30 PM [facility] REPOSITORY TYPE CODE TESTS RESULT OUT OF REFERENCE UNITS RANGE LAB RTEGH 4.0-10.0 min R Value (Hep) 6.8 LAB MATEGH 51.0-69.0 mm Maximum Amplit (Hep) 54.6 LAB DEGANH 47.0-74.0 deg Degree Angle (Hep) 60.4 LAB LY30H 0.0-5.0 % Lysis Time 30 (Hep) 0.0 LAB CITEGH Coagulation Ind(Hep) NEG 2 Result Comment: (NOTE) Reference Range: NEG 4 to 2 The Coagulation Index, a secondary parameter, is labeled by the power builder developer as for research use only and is used per the power builder developer's instructions. Its performance characteristics were determined by [facility]'s [facility] in a manner consistent with CLIA requirements. This test has not been cleared by the [place]. Food and Drug Administration. LAB TEGINH Thrombograph Int(Hep) (NOTE) Result Comment: Performing Pathologist: Dr. Leigh Long M.D., Ph.D. Normal - see comment below. A thromboelastograph (TEG) study was performed using citrate-anticoagulated whole blood treated with heparinase to neutralize a heparin effect. The R value, a measure of coagulation function, is within the normal range. This indicates normal coagulation function. The Angle, a measure of fibrinogen function, is within the normal range. This is indicative of normal fibrinogen concentration or function. The Maximal Amplitude (MA), a measure of platelet function, is within the normal range. The Ly30, a measure of fibrinolysis function, is normal. This is indicative of normal fibrinolytic function. The Coagulation Index (CI), a measure of hemostasis function, is within the normal range. The CI is a calculated parameter based on the other TEG results. Performed By: #### TEGHPP #### [facility] [address] [place], [place] [address] THROMBOGRAPH PANEL Collected: 10/07/2017 Status: F Source: [place] 11:30 PM [facility] REPOSITORY TYPE CODE TESTS RESULT OUT OF REFERENCE UNITS RANGE LAB RTEG 4.0-10.0 min R Value 7.3 LAB MATEG 51.0-69.0 mm Maximum Amplitude 60.9 LAB DEGANG 47.0-74.0 deg Degree Angle 68.5 LAB LY30 0.0-5.0 % Lysis Time 30 0.0 LAB CITEG Coagulation Index 0.0 Result Comment: (NOTE) Reference range: NEG 4 to 2 The Coagulation Index, a secondary parameter, is labeled by the power builder developer as for research use only and is used per the power builder developer's instructions. Its performance characteristics were determined by [facility]'s [facility] in a manner consistent with CLIA requirements. This test has not been cleared by the [place].S. Food and Drug Administration. LAB TEGINT Thrombograph Interp (NOTE) Result Comment: Performing Pathologist: Dr. Leigh Long M.D., Ph.D. Normal - see comment below. A thromboelastograph (TEG) study was performed using citrate-anticoagulated whole blood. The R value, a measure of coagulation function, is within the normal range. This indicates normal coagulation function. The Angle, a measure of fibrinogen function, is within the normal range. This is indicative of normal fibrinogen concentration or function. The Maximal Amplitude (MA), a measure of platelet function, is within the normal range. The Ly30, a measure of fibrinolysis function, is normal. This is indicative of normal fibrinolytic function. The Coagulation Index (CI), a measure of hemostasis function, is within the normal range. The CI is a calculated parameter based on the other TEG results. Performed By: #### TEGPNP #### [facility] [address] [place], [place] [address] GASA + ALL Collected: 10/07/2017 Status: F Source: [place] FOR 11:05 PM [facility] RADIANCE USE ONLY REPOSITORY TYPE CODE TESTS RESULT OUT OF REFERENCE UNITS RANGE LAB PH 7.35-7.45 pH Low 7.30 LAB PCO2 34-46 mm Hg pCO2 High 49 LAB PO2 85-95 mm Hg pO2 High 129 LAB BE mmol/L Base Excess NEG 3 LAB HCO3 22-26 mmol/L Bicarbonate 23 LAB CO2CT 22.0-28.0 mmol/L CO2 Content 25 LAB O2HB 95-98 % Oxyhemoglobin, Art. 98 LAB COHB 0-5.0 % Carboxyhemoglobin, 1.7 Art LAB MHGB 0.4-1.5 % Methemoglobin Low 0.0 LAB TEMP C Temperature, Body 37.0 LAB PHTC 7.35-7.45 pH, Temp Low Corrected 7.30 LAB PCO2T 34-46 mm Hg pCO2, Temp High Correct 49 LAB PO2T mm Hg pO2, Temp Corrected 129 LAB NAB 135-146 mmol/L Sodium,Whole High Bld 147 LAB KWB 3.5-5.0 mmol/L Potassium, Whole Bld 3.7 LAB HGBB 13.0-17.0 g/dL Low Hemoglobin,Total,A 7.5 CL LAB HCTB 39.0-51.0 % Hematocrit, Low ACL 23 LAB IC 1.08-1.30 mmol/L Calcium, Ion, Low WB 0.90 LAB GLB 60-105 mg/dL Glucose,Whole High Bld 253 LAB LACT 0.5-2.2 mmol/L Lactate High 13.7 LAB ABGCOM Blood Gas Comm, Art Urgent value Result Comment: LACT LAB ACBWHO Notified SENT TO Whom, Art OR63 A [facility] LAB ACBDTE Notify [id number] Date, Art LAB ACBTME Notify Time, Art Performed By: #### ALLBG #### [facility] [address] [place] [id number] GASA + ALL Collected: 10/07/2017 Status: F Source: [place] FOR 10:41 PM [facility] RADIANCE USE ONLY REPOSITORY TYPE CODE TESTS RESULT OUT OF REFERENCE UNITS RANGE LAB PH 7.35-7.45 pH Low 7.26 LAB PCO2 34-46 mm Hg pCO2 High 50 LAB PO2 85-95 mm Hg pO2 Low 51 LAB BE mmol/L Base Excess NEG 5 LAB HCO3 22-26 mmol/L Bicarbonate Low 21 LAB CO2CT 22.0-28.0 mmol/L CO2 Content 23 LAB O2HB 95-98 % Oxyhemoglobin, Low Art. 81 LAB COHB 0-5.0 % Carboxyhemoglobin, 1.6 Art LAB MHGB 0.4-1.5 % Methemoglobin High 1.6 LAB TEMP C Temperature, Body 37.0 LAB PHTC 7.35-7.45 pH, Temp Low Corrected 7.26 LAB PCO2T 34-46 mm Hg pCO2, Temp High Correct 50 LAB PO2T mm Hg pO2, Temp Corrected 51 LAB NAB 135-146 mmol/L Sodium,Whole Bld 145 LAB KWB 3.5-5.0 mmol/L Potassium, Whole Bld 4.0 LAB HGBB 13.0-17.0 g/dL Low Hemoglobin,Total,A 6.1 CL LAB HCTB 39.0-51.0 % Hematocrit, Low ACL 19 LAB IC 1.08-1.30 mmol/L Calcium, Ion, Low WB 0.96 LAB GLB 60-105 mg/dL Glucose,Whole High Bld 270 LAB LACT 0.5-2.2 mmol/L Lactate High 15.0 LAB ABGCOM Blood Gas Comm, Art Urgent value Result Comment: LACT LAB ACBWHO Notified SENT Whom, Art RESULTS TO OR63 T [facility] LAB ACBDTE Notify [id number] Date, Art LAB ACBTME Notify Time, Art Performed By: #### ALLBG #### [facility] [address] [place], [place] [address] GASA + ALL Collected: 10/07/2017 Status: F Source: [place] FOR 10:04 PM [facility] RADIANCE USE ONLY REPOSITORY TYPE CODE TESTS RESULT OUT OF REFERENCE UNITS RANGE LAB PH 7.35-7.45 pH Low 7.23 LAB PCO2 34-46 mm Hg pCO2 39 LAB PO2 85-95 mm Hg pO2 High 384 LAB BE mmol/L Base Excess NEG 11 LAB HCO3 22-26 mmol/L Bicarbonate Low 16 LAB CO2CT 22.0-28.0 mmol/L CO2 Content Low 17 LAB O2HB 95-98 % Oxyhemoglobin, High Art. 99 LAB COHB 0-5.0 % Carboxyhemoglobin, 1.6 Art LAB MHGB 0.4-1.5 % Methemoglobin Low 0.1 LAB TEMP C Temperature, Body 37.0 LAB PHTC 7.35-7.45 pH, Temp Low Corrected 7.23 LAB PCO2T 34-46 mm Hg pCO2, Temp Correct 39 LAB PO2T mm Hg pO2, Temp Corrected 384 LAB NAB 135-146 mmol/L Sodium,Whole Bld 140 LAB KWB 3.5-5.0 mmol/L Potassium, Whole Bld 5.0 LAB HGBB 13.0-17.0 g/dL Low Hemoglobin,Total,A 6.8 CL LAB HCTB 39.0-51.0 % Hematocrit, Low ACL 21 LAB IC 1.08-1.30 mmol/L Calcium, Ion, Low WB 0.87 LAB GLB 60-105 mg/dL Glucose,Whole High Bld 390 LAB LACT 0.5-2.2 mmol/L Lactate High 14.8 LAB ABGCOM Blood Gas Comm, Art Urgent value Result Comment: ICA LACT LAB ACBWHO Notified SENT TO Whom, Art OR63 A [facility] LAB ACBDTE Notify [id number] Date, Art LAB ACBTME Notify Time, Art Performed By: #### ALLBG #### [facility] [address] [place] [address] GASV + ALL Collected: 10/07/2017 Status: F Source: [place] 9:12 PM [facility] REPOSITORY TYPE CODE TESTS RESULT OUT OF REFERENCE UNITS RANGE LAB VPH 7.32-7.42 pH Low Alert 7.10 LAB VPC2 42-55 mm Hg pCO2 High 56 LAB VPO2 35-45 mm Hg pO2 High 56 LAB VBE mmol/L Base Excess NEG 12 LAB VHC3 24-28 mmol/L Bicarbonate Low 17 LAB VC2C 25-29 mmol/L CO2 Content Low 19 LAB O2HBCX 60-85 % Oxyhemoglobin, Willi. 79 LAB CO <2.0 % Carboxyhemoglobin, 1.1 Willi LAB METHB 0.4-1.5 % Methemoglobin 1.4 LAB VTMP C Temperature, Body 37.0 LAB VPHTC 7.32-7.42 pH, Temp Low Alert Corrected 7.10 LAB VPC2T mm Hg pCO2, Temp Correct 56 LAB VPO2T mm Hg pO2, Temp Corrected 56 LAB NAB 135-146 mmol/L Sodium,Whole Bld 136 LAB KWB 3.5-5.0 mmol/L Potassium, Whole Bld 4.5 LAB HGBB 13.0-17.0 g/dL Low Hemoglobin,Total,A 6.8 CL LAB HCTB 39.0-51.0 % Hematocrit, Low ACL 21 LAB IC 1.08-1.30 mmol/L Calcium, Ion, Low WB 0.78 LAB GLB 60-105 mg/dL Glucose,Whole High Bld 448 LAB LACT 0.5-2.2 mmol/L Lactate High 14.3 LAB VBGCOM Blood Gas Comm, Willi Critical Value Result Comment: PH ICA LACT LAB VCBWHO Notified Whom, Willi Called to and read back by Result Comment: Katerine CORTEZ A [facility] LAB VCBDTE [id number] Notify Date, Willi LAB VCBTME Notify Time, Willi Performed By: #### VALLBG #### [facility] [address] [place], [place] [address] GASA + ALL Collected: 10/07/2017 Status: F Source: [place] FOR 9:09 PM [facility] RADIANCE USE ONLY REPOSITORY TYPE CODE TESTS RESULT OUT OF REFERENCE UNITS RANGE LAB PH 7.35-7.45 pH Low Alert 7.17 LAB PCO2 34-46 mm Hg pCO2 45 LAB PO2 85-95 mm Hg pO2 High 291 LAB BE mmol/L Base Excess NEG 12 LAB HCO3 22-26 mmol/L Bicarbonate Low 16 LAB CO2CT 22.0-28.0 mmol/L CO2 Content Low 17 LAB O2HB 95-98 % Oxyhemoglobin, Art. 97 LAB COHB 0-5.0 % Carboxyhemoglobin, 1.0 Art LAB MHGB 0.4-1.5 % Methemoglobin 1.5 LAB TEMP C Temperature, Body 37.0 LAB PHTC 7.35-7.45 pH, Temp Low Alert Corrected 7.17 LAB PCO2T 34-46 mm Hg pCO2, Temp Correct 45 LAB PO2T mm Hg pO2, Temp Corrected 291 LAB NAB 135-146 mmol/L Sodium,Whole Bld 136 LAB KWB 3.5-5.0 mmol/L Potassium, Whole Bld 4.5 LAB HGBB 13.0-17.0 g/dL Low Hemoglobin,Total,A 6.8 CL LAB HCTB 39.0-51.0 % Hematocrit, Low ACL 21 LAB IC 1.08-1.30 mmol/L Calcium, Ion, Low WB 0.77 LAB GLB 60-105 mg/dL Glucose,Whole High Bld 458 LAB LACT 0.5-2.2 mmol/L Lactate High 15.0 LAB ABGCOM Blood Gas Comm, Art Critical Value Result Comment: PH ICA LACT LAB ACBWHO Notified Whom, Art Called to and read back by Result Comment: Katerine HUERTAS63 A [facility] LAB ACBDTE [id number] Notify Date, Art LAB ACBTME [id number] Notify Time, Art Performed By: #### ALLBG #### [facility] [address] [place] [address] PLATELET COUNT Collected: 10/07/2017 Status: F Source: [place] 9:02 [facility] REPOSITORY TYPE CODE TESTS RESULT OUT OF REFERENCE UNITS RANGE LAB PLTCT 150-400 k/uL Low Platelet Count 32 Result Comment: No clot detected. Performed By: #### PLTCT, PTT, FIBCT, PT #### [place] [address] APTT Collected: 10/07/2017 Status: F Source: [place] 9:02 [facility] REPOSITORY TYPE CODE TESTS RESULT OUT OF RANGE REFERENCE UNITS LAB APTT 23.0-32.4 sec APTT No clot detected. Result Comment: No clot detected at 320 seconds. Suggest correlation with clinical findings and redraw if indicated. Sample checked for a clot. Called to BIJAL Wolff7 Laura ORO Unfractionated Heparin Therapeutic Ranges: Standard Heparin Nomogram: 53 to 78 seconds (anti-Xa level of 0.3 to 0.7 U/ml) Low Dose/ACS Nomogram: 49 to 67 seconds (anti-Xa level of 0.2 to 0.5 U/ml) Stroke Treatment Nomogram: 49 to 67 seconds (anti-Xa level of 0.2 to 0.5 U/ml) Note: The APTT therapeutic range has been determined for the current lot of laboratory APTT reagent in use throughout the [facility]. Performed By: #### PLTCT, PTT, FIBCT, PT #### [facility] [address] [place], [place] [address] FIBRINOGEN Collected: 10/07/2017 Status: F Source: [place] 9:02 [facility] REPOSITORY TYPE CODE TESTS RESULT OUT OF REFERENCE UNITS RANGE LAB FIBCT 200-400 mg/dL Low Fibrinogen 72 Result Comment: Result rechecked. Sample checked for a clot. Called to BIJAL CORTEZ [id number] ORO Performed By: #### PLTCT, PTT, FIBCT, PT #### [facility] [address] [place], [place] [address] PROTIME Collected: 10/07/2017 Status: F Source: [place] 9:02 PM [facility] REPOSITORY TYPE CODE TESTS RESULT OUT OF RANGE REFERENCE UNITS LAB PSEC 9.7-13.0 sec High PT Sec 20.3 LAB INR 0.9-1.3 High PT INR 2.1 Result Comment: Vitamin K Antagonist (VKA) Therapeutic Range: INR 2 to 3 (Target INR of 2.5) Note: For patients treated with VKA drugs, such as warfarin, the [employer] [employer] 2012 Guideline recommends a therapeutic INR range of 2 to 3 (target INR of 2.5). This recommendation includes high-risk patients with antiphospholipid syndrome with previous arterial or venous thromboembolism, current-generation mechanical or bioprosthetic aortic heart valve replacement. Note: Patients with mechanical aortic valve replacement and additional risk factors for thromboembolic events (atrial fibrillation, previous thromboembolism, LV dysfunction, hypercoagulable conditions) or an older generation mechanical AVR (i.e., ball in-Cage) or any mechanical MVR should have a INR therapeutic range of 2.5 to 3.5 (target INR of 3). Phi GH, et al. Chest 2012, 141:7S-47S Regis RA, et al. JAC 2017, 70: 252-289 Performed By: #### PLTCT, PTT, FIBCT, PT #### [facility] [address], [place] [address] THROMBOGRAPH HEPASE Collected: 10/07/2017 Status: F Source: [place] 9:02 PM [facility] REPOSITORY TYPE CODE TESTS RESULT OUT OF REFERENCE UNITS RANGE LAB RTEGH 4.0-10.0 min R Value (Hep) 4.5 LAB MATEGH 51.0-69.0 mm Maximum Low Amplit (Hep) 22.8 LAB DEGANH 47.0-74.0 deg Degree Low Angle (Hep) 31.3 LAB LY30H 0.0-5.0 % Lysis Time High 30 (Hep) 75.2 LAB CITEGH Coagulation Ind(Hep) NEG 10 Result Comment: (NOTE) Reference Range: NEG 4 to 2 The Coagulation Index, a secondary parameter, is labeled by the power builder developer as for research use only and is used per the power builder developer's instructions. Its performance characteristics were determined by [facility] in a manner consistent with CLIA requirements. This test has not been cleared by the U.S. Food and Drug Administration. LAB TEGINH Thrombograph Int(Hep) (NOTE) Result Comment: Performing Pathologist: Dr. Leigh Long M.D., Ph.D. Abnormal - see comment below. A thromboelastograph (TEG) study was performed using citrate-anticoagulated whole blood treated with heparinase to neutralize a heparin effect. The R value, a measure of coagulation function, is within the normal range. This indicates normal coagulation function. The Maximal Amplitude (MA), a measure of platelet function, is decreased. This is indicative of platelet hypofunction. The Angle, a measure of fibrinogen function, is decreased. This is indicative of decreased fibrinogen concentration or function. The Ly30, a measure of fibrinolysis function, is prolonged. This is indicative of increased fibrinolytic function. The Coagulation Index (CI), a measure of hemostasis function, is decreased. The CI is a calculated parameter based on the other TEG results. Performed By: #### TEGHPP #### [facility] [address] [place] [id number] GASA + ALL Collected: 10/07/2017 Status: F Source: [place] FOR 8:33 PM [facility] USE ONLY REPOSITORY TYPE CODE TESTS RESULT OUT OF REFERENCE UNITS RANGE LAB PH 7.35-7.45 pH High 7.52 LAB PCO2 34-46 mm Hg pCO2 Low 25 LAB PO2 85-95 mm Hg pO2 High 328 LAB BE mmol/L Base Excess NEG 2 LAB HCO3 22-26 mmol/L Bicarbonate Low 20 LAB CO2CT 22.0-28.0 mmol/L CO2 Content Low 21 LAB O2HB 95-98 % Oxyhemoglobin, Art. 98 LAB COHB 0-5.0 % Carboxyhemoglobin, 1.9 Art LAB MHGB 0.4-1.5 % Methemoglobin 0.8 LAB TEMP C Temperature, Body 37.0 LAB PHTC 7.35-7.45 pH, Temp High Corrected 7.52 LAB PCO2T 34-46 mm Hg pCO2, Temp Low Correct 25 LAB PO2T mm Hg pO2, Temp Corrected 328 LAB NAB 135-146 mmol/L Sodium,Whole Bld 136 LAB KWB 3.5-5.0 mmol/L Potassium, Whole Bld 4.6 LAB HGBB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 PTT, CMP, LIPB, MG1, NTBNP, PHOS, TANK, TSH, HBA1C #### [place] [address] HEMOGLOBIN A1C Collected: 10/07/2017 Status: F Source: [place] 2:[address] [place] [address] REPOSITORY TYPE CODE TESTS RESULT OUT OF REFERENCE UNITS RANGE LAB HGBA1C 4.3-5.6 % Hemoglobin A1c 4.8 LAB HBA0 mg/dL Est. Average Glucose 91 Result Comment: eAG: (Estimated average glucose) is a calculated value from HgbA1c and is authorization representative of the average blood glucose level in the last 2-3 month period. Performed By: #### CBC, PT, PTT, CMP, LIPB, MG1, NTBNP, PHOS, TANK, TSH, HBA1C #### [facility] [address] [place], [place] [address] TYPE AND SCREEN Collected: 10/07/2017 Status: F Source: [place] 2:15 PM [facility] [place] REPOSITORY TYPE CODE TESTS RESULT OUT OF REFERENCE UNITS RANGE LAB %ABR A ABO/RH(D) POSITIVE LAB % Antibody NEG Screen Performed By: #### TSCR #### [facility] [address] [place], [place] [address] HISTORY PHYSICAL Observed: 10/07/2017 Status: COMPLETED Source: [place] 1:14 PM [facility] [place] REPOSITORY HNO ID: [id number] Author: Luis Enrique (Julio Cesar) Rafael Service: Cardiovascular Medicine Author Type: Resident Type: HANDP Filed: 10/07/2017 2:36 PM Note Text: [facility] HIST[facility] AND PHYSICAL Jose Juan Gustafson [phone] PRIMARY SERVICE: Cardiology: Coronary Intensive Care Unit CHIEF COMPLAINT: Aortic dissection, Type A HPI: This is a 52 year old male with PMH: - HTN (on lisinopril 5) - Asthma - Hx of kidney stones Who presented to OSH with chest pain. Patient had negative cardiac enzymes with negative EKG changes and was discharged to home. Patient presented again 10/07/2017 with similar complaints. Patient had a CT chest done which was reportedly concerning for aortic dissection starting at the mid arch and descending in the thoracic aorta. Patient was noted to have blood seen in mediastinum and lungs with noted low blood pressure and patient was transferred to [facility] CICU for further management. On arrival patient with variable BP in 80s systolic over 60s per arterial line on left with BP on right 15s systolic. Patient was seen by CTS and evaluation of the images sent with patient is that the dissection may begin in the aortic arch, patient was prepped for OR. PAST MEDICAL HISTORY: PAST MEDICAL HISTORY Diagnosis Date - History of kidney stones - Hypertension - Unspecified asthma(493.90) PAST SURGICAL HISTORY: PAST SURGICAL HISTORY Procedure Laterality Date - COLONOSCOP W/ OR W/O RUST SPEC 08/23/2014 Colonoscopy - LITHOTRIPSY EXTRACORP SHOCK WAVE(ESWL) 18 months ago - PAST SURGICAL HISTORY OF 2012 left ankle ORIF- hardware - PAST SURGICAL HISTORY OF 2012 ORIF left wrist - hardware - REMOVAL OF HEEL SPUR 2002, 2004 Bilateral - REPAIR ING HERNIA,5+Y/O,REDUCIBL Hernia repair, inguinal, as FAMILY HISTORY: FAMILY HISTORY Problem Relation Age of Onset - Stroke Father age 48 of CVA - Asthma Paternal Grandfather SOCIAL HISTORY: Social History Substance Use Topics - Smoking status: Light Tobacco Smoker Types: Cigars - Smokeless tobacco: Never Used - Alcohol use 6.0 oz/week 4 Cans of Beer (12oz) per week MEDICATIONS: Prior to Admission Medications: cetirizine-pseudoephedrine (ZYRTEC-D) 5-120 mg per tablet Take 1 tablet by mouth twice daily as needed. fluticasone (FLONASE) 50 mcg/actuation nasal spray Use 1 [address] [place] in each nostril once daily. Lactobacillus acidophilus (FLORAJEN) 460 mg (20 billion cell) cap Take 1 capsule by mouth once daily. fluticasone-vilanterol (BREO ELLIPTA) 200-25 mcg/dose inhaler Inhale 1 Inhalation as instructed once daily. Inhale one puff once daily. DO NOT CLICK OPEN UNTIL READY FOR DOSE lisinopril (ZESTRIL, PRINIVIL) 5 mg tablet Take 1 tablet by mouth once daily. Current hospital medications: [MAR Hold due to Transfer] 0.9% NaCl 2-10 mL 2-10 mL INTRAVENOUS q 12 H [MAR Hold due to Transfer] NaCl 0.9% 1,000 mL iv bolus 1,000 mL INTRAVENOUS ONCE [MAR Hold due to Transfer] ondansetron (PF) 4 mg injection (ZOFRAN) 4 mg INTRAVENOUS ONCE ALLERGIES: ALLERGIES Allergen Reactions - Cats - Grass Pollen Itching COMPLETE REVIEW OF SYSTEMS: GENERAL: No weight loss, malaise or fevers RESPIRATORY: Negative for cough, wheezing or shortness of breath. CARDIOVASCULAR: Negative for chest pain, leg swelling or palpitations. GI: Negative for abdominal discomfort, blood in stools or black stools or change in bowel habits : No history of dysuria, frequency or incontinence MUSCULOSKELETAL: Negative for joint pain or swelling, back pain or muscle pain. HEMATOLOGY/LYMPHOLOGY Negative for prolonged bleeding, bruising easily or swollen nodes. NEURO: No history of headaches, syncope, paralysis, seizures or tremors PHYSICAL EXAM: BP 152/83 Pulse 100 Resp 22 Ht 182.9 cm (6') SpO2 98% General appearance: no acute distress Skin: warm, perfused, toes cool Mouth/Pharynx: unremarkable Lungs: symm air entry , soft inspiratory rales bilateral bases Heart: RRR no significant murmur or ectopy Abdomen: soft non tender to palpation Musculoskeletal: no joint abnormalities Neurologic/Psychiatric: aox3 grossly non focal Extremities: no pitting edema, bilaterl PT pulses, weak DP DATA: Laboratory: Component Latest Ref Rng AND Units 10/07/2017 pH, Arterial 7.35 - 7.45 7.41 pCO2, Arterial 34 - 46 mm Hg 33 (L) pO2, Arterial 85 - 95 mm Hg 130 (H) Base Excess, Arterial mmol/L NEG 3 Bicarbonate, Arterial 22 - 26 mmol/L 21 (L) CO2 Content, Arterial 22.0 - 28.0 mmol/L 22 Oxyhemoglobin, Arterial 95 - 98 % 98 Carboxyhemoglobin, Arterial 0 - 5.0 % 1.3 Methemoglobin, Arterial 0.4 - 1.5 % 0.0 (L) Temperature, Body, Arterial C 37.0 pH, Temp Corrected, Arterial 7.35 - 7.45 7.41 pCO2, Temp Corrected, Arterial 34 - 46 mm Hg 33 (L) pO2, Temp Corrected, Arterial mm Hg 130 Sodium, Whole Blood 135 - 146 mmol/L 138 Potassium, Whole Blood 3.5 - 5.0 mmol/L 3.6 Hemoglobin Total, Whole Blood 13.0 - 17.0 g/dL 10.1 (L) Hematocrit, Whole Blood 39.0 - 51.0 % 31 (L) Calcium Ionized, Whole Blood 1.08 - 1.30 mmol/L 1.15 Glucose, Whole Blood 60 - 105 mg/dL 156 (H) Lactate 0.5 - 2.2 mmol/L 2.4 (H) Echocardiogram: bedside echo, small pericardial effusion seen, LV function intact, small RV cavity ASSESSMENT AND PLAN: Presentation/Indication for admission/procedure: Mr. Gustafson is a 52 yo M with PMH HTN, Asthma, and hx of kidney stones who is transferred to [facility] for evaluation of Type A aortic dissection ? ? LVEF: RVEF: ? PMH/PSH: HTN Asthma Hx kidney stones? ? Procedure/OR performed (including complications): ?? ? Brief Hospital Course/Narrative: 10/07/2017 admitted to CICU Active Hospital Problems Diagnosis - Dissection of thoracic aorta (HCC) Patient with chest pain at OSH CT chest showing type a dissection - Essential hypertension Patient with HTN on lisinopril 5 at baseline BPs on checks have been 115-130s systolic at latest visits - Asthma On multiple inhalers at home - Aortic dissection (HCC) Patient with hx of htn Presented with chest pain CT chest showing likely type a dissection BP low no impulse control CTS plan for OR Plan for today: - Consult to CTS/ vascular surgery - Impulse control - Echocardiogram - Follow up pending surgical evaluation Diet: NPO DVT prophylaxis: NA GI prophylaxis: NA Disposition: Pending surgery Case to be discussed with staff physician. SIGNATURE: Luis Enrique Hall MD PAGER: [phone] DATE of SERVICE: 10/07/2017 TIME of SERVICE: 1:15 PM EMERGENCY DEPARTMENT Observed: 10/07/2017 Status: F Source: [place] SUMMARY 12:[address] [facility] REPOSITORY [facility] Medical Records Department [address] [place] [address] Emergency Department Summary 10/07/17 1253 MR#: [id number] Acct: [id number] Name: JOSE GUSTAFSON Jr. Rep #: [id number] : 1965 52 From: Estela Mcdermott DO PCP: Kaykay Beth MD Status: REG ER - ER Visit Summary Date of Service: 10/07/17 Chief Complaint: [Chest pain History of Present Illness: The patient is a 52 M [presents to the emergency department with chest pain that started yesterday around 10 AM. Patient describes sudden onset of pain yesterday that kind of radiated down into his lower back and abdomen. Patient states the pain never resolved. Patient states that he was seen in the emergency department and worked up yesterday and discharged to home. The pain never resolved but began feeling lightheaded and feeling like he was going to pass out. Patient presents via EMS. Patient has a history of hypertension. No family history of Marfan's or aortic aneurysms. Patient describes the pain as mild at this time however he just feels very lightheaded and dizzy.] Physical Examination: [HEENT-PERRLA, EOMI. Cranial nerves II through XII grossly intact. TMs clear. Mucous membranes moist. No adenopathy. Cardiovascular-regular rate and rhythm without murmur or ectopy Lungs-clear to auscultation, chest wall stable without crepitus or subcu emphysema Abdomen-normoactive bowel sounds, soft, nontender, no rebound or rigidity, no peritoneal signs. Extremities-intact 4, normal range of motion, normal pulses, atraumatic] Test Results: [EKG obtained showed sinus tachycardia with a ventricular rate of 109 bpm with no acute ST segment changes. CBC with differential showed a white count of 7.4, hemoglobin 11, hematocrit 34, platelets 323. Chemistries were unremarkable. Glucose was elevated to 68. Troponin was less than 0.02. CT scan of the abdomen and chest with IV contrast was read by radiology as a aortic dissection of the arch of the aorta distal to the great vessels of the neck. Patient was noted to have blood in the mediastinum in the right pleural space.] Emergency Department Course and Treatment: [Patient would prefer to be transferred to [facility]. We will make arrangements for transfer via helicopter. Patient was typed and screened in the emergency department and was given IV fluids.] Treatment Plan: [Transfer to [facility]] Disposition: [Transfer] Impression: [Aortic dissection] This note was generated with [employer] dictation software. It may contain incorrect words, spelling, and punctuation that were not noted in review of the chart prior to signing ED Disposition - Plan for ED Patient: Chief Complaint: Chest Pain Referrals: Kaykay Beth MD [Primary Care Provider] - What to do if you have Problems For any increased pain, shortness of breath, bleeding, nausea or vomiting, chest pain, or any unexpected problems, contact your Primary Care Provider. Call [facility] ([phone]) or report to the closest Emergency Room. Call 911 if necessary. 10/07/17 1256 <Electronically signed by Estela Mcdermott DO> Date Estela Mcdermott DO Cosigner Signature (If Indicated): Date CC: Kaykay Beth MD TYPE AND SCREEN Collected: 10/07/2017 Status: F Source: [place] 12:[address] [facility] REPOSITORY Order Comment: Reason for Type AND Screen/Red Cells: ROUTINE TYPE CODE TESTS RESULT OUT OF RANGE REFERENCE UNITS LAB B10.0800 A Normal BLOOD TYPE GEL POSITIVE LAB B100.4000 Normal Antibody NEGATIVE Screen Performed By: #### B101.7450 #### [facility] [address] [place], [address] CHEST 1 VIEW Observed: 10/07/2017 Status: F Source: [place] (PORTABLE) 12:[address] [facility] REPOSITORY [facility] Imaging Services [address] [place] [address] Chest 1 View (Portable) MR#: [id number] Acct: [id number] Name: JANAYJOSE Juan Agrawal. Rep #: [id number] : 1965 M 52 From: Beck Nuñez MD PCP: Kirit NAQVI,Kaykay Status: REG ER Study: Chest 1 View (Portable) Date of Exam: 10/07/17 Exam# [id number] Ordering Dr: Estela Mcdermott DO STUDY: X-RAY CHEST REASON FOR EXAM: Male, 52 years old. Chest pain. TECHNIQUE: Single AP portable view of the chest. COMPARISON: None. FINDINGS: EKG electrodes are seen. Small right pleural effusion with underlying infiltration and/or atelectasis. Increased markings at the left lung base. Normal size heart. Normal mediastinum and gianna. Normal visualized pulmonary arteries. Irregularity of the aortic knob. Normal visualized thoracic spine. Normal visualized ribs, clavicles, and shoulders. There is no demonstrated abnormality of the visualized soft tissue structures of the upper abdomen. RAD/Chest 1 View (Portable) IMPRESSION: Small right pleural effusion with bibasilar atelectasis. Blunting of the left prosthetic angle. Irregularity of the aortic knob. Electronically Signed: Beck Nuñez MD at 12:56 EDT Tel [phone], Service support , CC: Kaykay Beth MD; Estela Mcdermott DO Silver Wrapper: Signed CTA ABDOMEN W/WO Observed: 10/07/2017 Status: F Source: [place] CONTRAST 12:[address] [facility] REPOSITORY [facility] Imaging Services [address] [place] [address] CTA Abdomen W/WO Contrast MR#: [id number] Acct: [id number] Name: JOSE GUSTAFSON Jr. Rep #: [id number] : 1965 M 52 From: Beck Nuñez MD PCP: Kaykay Beth MD Status: REG ER Study: CTA Abdomen W/WO Contrast Date of Exam: 10/07/17 Exam# [id number] Ordering Dr: Estela Mcdermott DO STUDY: CTA CHEST REASON FOR EXAM: Male, 52 years old. One day history of chest pain. Dizziness and diaphoresis. RADIATION DOSAGE (If Supplied By Facility): CTDIvol = ( 15.08 ) mGy, DLP = ( 782.37 ) mGycm TECHNIQUE: The examination was performed with the intravenous administration of 100CC ml of Isovue 370 contrast material. Post-processing of the angiographic images was performed, with multiplanar reformation and 3D reconstruction. Individualized dose optimization techniques were used for this CT. COMPARISON: None. FINDINGS: Normal enhancement of the main pulmonary artery and right and left pulmonary arteries. Normal enhancement of the bilateral peripheral pulmonary arteries. There is no demonstrated pulmonary embolism. There is evidence of a localized focal dissection involving the medial aspect of the aortic arch just distal to its origin. This extends posteriorly to the level of the aortopulmonary window. The vessels arising from the aortic arch are unremarkable. There is evidence of a increased soft tissue density in the mediastinal fat surrounding the aortic arch as well as the descending thoracic aorta. Soft tissue density is also seen within the posterior mediastinum displacing the left atrium suggestive of a hematoma. Small left pleural effusion. Moderate sized hemopericardium. Normal mediastinum. Normal hilar regions. Normal visualized trachea and bronchi. There is a large right pleural effusion with increased density. This most likely represents a right sided hemopneumothorax. Atelectasis at the lung bases. Normal chest wall structures. Normal osseous structures. Retroperitoneal hematoma. IMPRESSION: Focal dissection and/or tear at the level of the aortic arch just distal to the origin of the great vessels of the neck with evidence of a hemopericardium, large right hemopneumothorax. Hematoma is seen within the mediastinum especially posteriorly causing displacement of the left atrium. Electronically Signed: Beck Nuñez MD at 13:06 EDT Tel [phone], Service support , STUDY: CTA OF THE ABDOMINAL AORTA REASON FOR EXAM: Male, 52 years old. Possible dissection. RADIATION DOSAGE (If Supplied By Facility): CTDIvol = ( 15.08 ) mGy, DLP = ( 782.37 ) mGycm TECHNIQUE: Axial CT angiography multi-detector data acquisition was obtained from the to the following intravenous administration of 100CC ml of Isovue 370 contrast. Axial images and MIP images were reconstructed from the axial data set. Post-processing of the angiographic images was performed, with multiplanar reformation and 3D reconstruction. Individualized dose optimization techniques were used for this CT. TECHNICAL QUALITY: Good COMPARISON: None. Descriptors of Narrowing: None (0%) Mild (< 50%) Moderate (50-70%) Severe (70-90%) Subtotal/Total Occlusion (90-100%) Non-Evaluable (technically non-diagnostic FINDINGS: Left pneumothorax. Pericardial effusion. Soft tissue density in the posterior mediastinum with displacement of the left atrium. Retrocrural hematoma was on the right side. Abdominal aorta: No demonstrated narrowing. No evidence of dissection. Celiac and superior mesenteric arteries: No demonstrated narrowing. Inferior mesenteric artery: No demonstrated narrowing. Right renal artery(arteries): No demonstrated narrowing. Left renal artery(arteries): No demonstrated narrowing. CT/CTA Abdomen W/WO Contrast IMPRESSION: No evidence of a aortic dissection.. Electronically Signed: Beck Nuñez MD at 12:53 EDT Tel [phone], Service support , CC: Kaykay Beth MD; Estela Mcdermott DO Silver Wrapper: Signed CTA CHEST W/WO Observed: 10/07/2017 Status: F Source: [place] CONTRAST 12:[address] [facility] REPOSITORY [facility] Imaging Services [address] [place] [address] CTA Chest W/WO Contrast MR#: [id number] Acct: [id number] Name: JOSE GUSTAFSON JrHomar Rep #: [id number] : 1965 M 52 From: Beck Nuñez MD PCP: Kaykay Beth MD Status: REG ER Study: CTA Chest W/WO Contrast Date of Exam: 10/07/17 Exam# [id number] Ordering Dr: Estela Mcdermott DO STUDY: CTA CHEST REASON FOR EXAM: Male, 52 years old. One day history of chest pain. Dizziness and diaphoresis. RADIATION DOSAGE (If Supplied By Facility): CTDIvol = ( 15.08 ) mGy, DLP = ( 782.37 ) mGycm TECHNIQUE: The examination was performed with the intravenous administration of 100CC ml of Isovue 370 contrast material. Post-processing of the angiographic images was performed, with multiplanar reformation and 3D reconstruction. Individualized dose optimization techniques were used for this CT. COMPARISON: None. FINDINGS: Normal enhancement of the main pulmonary artery and right and left pulmonary arteries. Normal enhancement of the bilateral peripheral pulmonary arteries. There is no demonstrated pulmonary embolism. There is evidence of a localized focal dissection involving the medial aspect of the aortic arch just distal to its origin. This extends posteriorly to the level of the aortopulmonary window. The vessels arising from the aortic arch are unremarkable. There is evidence of a increased soft tissue density in the mediastinal fat surrounding the aortic arch as well as the descending thoracic aorta. Soft tissue density is also seen within the posterior mediastinum displacing the left atrium suggestive of a hematoma. Small left pleural effusion. Moderate sized hemopericardium. Normal mediastinum. Normal hilar regions. Normal visualized trachea and bronchi. There is a large right pleural effusion with increased density. This most likely represents a right sided hemopneumothorax. Atelectasis at the lung bases. Normal chest wall structures. Normal osseous structures. Retroperitoneal hematoma. IMPRESSION: Focal dissection and/or tear at the level of the aortic arch just distal to the origin of the great vessels of the neck with evidence of a hemopericardium, large right hemopneumothorax. Hematoma is seen within the mediastinum especially posteriorly causing displacement of the left atrium. Electronically Signed: Beck Nuñez MD at 13:06 EDT Tel [phone], Service support , STUDY: CTA OF THE ABDOMINAL AORTA REASON FOR EXAM: Male, 52 years old. Possible dissection. RADIATION DOSAGE (If Supplied By Facility): CTDIvol = ( 15.08 ) mGy, DLP = ( 782.37 ) mGycm TECHNIQUE: Axial CT angiography multi-detector data acquisition was obtained from the to the following intravenous administration of 100CC ml of Isovue 370 contrast. Axial images and MIP images were reconstructed from the axial data set. Post-processing of the angiographic images was performed, with multiplanar reformation and 3D reconstruction. Individualized dose optimization techniques were used for this CT. TECHNICAL QUALITY: Good COMPARISON: None. Descriptors of Narrowing: None (0%) Mild (< 50%) Moderate (50-70%) Severe (70-90%) Subtotal/Total Occlusion (90-100%) Non-Evaluable (technically non-diagnostic FINDINGS: Left pneumothorax. Pericardial effusion. Soft tissue density in the posterior mediastinum with displacement of the left atrium. Retrocrural hematoma was on the right side. Abdominal aorta: No demonstrated narrowing. No evidence of dissection. Celiac and superior mesenteric arteries: No demonstrated narrowing. Inferior mesenteric artery: No demonstrated narrowing. Right renal artery(arteries): No demonstrated narrowing. Left renal artery(arteries): No demonstrated narrowing. CT/CTA Chest W/WO Contrast IMPRESSION: No evidence of a aortic dissection.. Electronically Signed: Beck Nuñez MD at 12:53 EDT Tel [phone], Service support , CC: Kaykay Beth MD; Estela Mcdermott DO Silver Wrapper: Signed CBC W/DIFF, AUTOMATED Collected: 10/07/2017 Status: F Source: [place] 11:[address] [facility] REPOSITORY TYPE CODE TESTS RESULT OUT OF RANGE REFERENCE UNITS LAB L100.1000 4.4-11.0 K/mm3 Normal WBC 7.4 LAB L100.1200 4.6-6.2 M/mm3 Low RBC 3.46 LAB L100.1300 13.0-16.5 g/dl Low HGB 11.2 LAB L100.1400 40-54 % Low HCT 34.2 LAB L100.1500 80-94 fL High MCV 98.8 LAB L100.1600 27.0-32.0 pg High MCH 32.4 LAB L100.1700 32-36 g/gl Normal MCHC 32.7 LAB L100.1810 11.6-14.6 % Normal RDW CV 12.9 LAB L100.1820 35.1-43.9 fl High RDW SD 46.2 LAB L100.1900 150-450 K/mm3 Normal PLT 323 LAB L100.2000 6.2-12.0 fl Normal MPV 8.9 LAB L100.2100 47-70 % Normal NEUT% 66.0 LAB L100.2200 19-41 % Normal LY% 24.0 LAB L100.2300 0-10 % Normal MONO% 8.4 LAB L100.2400 0-5 % Normal EO% 0.9 LAB L100.2500 0-1 % Normal BASO% 0.3 LAB L100.2550 0.0-0.9 % Normal IM GRAN % 0.400 Result Comment: IG% - Immature Granulocytes (promyelocytes, myelocytes and metamyelocytes) > 1% indicates that a LEFT SHIFT is Present. LAB L100.2620 2.0-7.7 X10 3/uL Normal Absolute Neut 4.9 LAB L100.2720 0.83-4.51 X10 3/ul Normal Absolute Lymph 1.78 Performed By: #### L100.0100 #### [facility] [place], [address] BASIC METABOLIC Collected: 10/07/2017 Status: F Source: [place] PROFILE (BMP) 11:[address] [facility] REPOSITORY Order Comment: 'TROP' Serial specimen #1, #2, #3, or #4: 1 TYPE CODE TESTS RESULT OUT OF RANGE REFERENCE UNITS LAB L501.0100 74-106 mg/dL High GLU 268 Result Comment: Glucose result greater than or equal to 200 mg/dL suggests DIABETES MELLITUS per A.D.A. criteria. Please note revised GLUCOSE reference range effective 2017. LAB L501.1000 7-18 mg/dL Normal BUN 12 LAB L501.1100 0.70-1.30 mg/dL Normal CREAT,SERUM 1.24 Result Comment: The validity of the calculated GFR AND GFRAA in patients over 70 years has not been determined. Clinical correlation is essential. LAB L501.1110 >60 mL/min Normal EST GFR 65 Result Comment: Non- GFR Calc LAB L501.1115 >60 mL/min Normal EST GFR - AA 78 Result Comment: GFR Calc LAB L501.1255 ml/min Normal Estimated CRCL 75.62 LAB L501.1300 10-20 RATIO Low BUN/CRE 9.7 LAB L501.2200 8.5-10 mg/dL Low .1 CA 7.5 LAB L501.5300 136-14 mmol/L Normal 5 NA 141 LAB L501.5600 3.5-5. mmol/L Normal 1 K 3.5 LAB L501.5900 98-107 mmol/L Normal CL 105 LAB L501.6100 21.0-3 mmol/L Normal 2.0 CO2 23.0 LAB L501.6200 5-15 Normal GAP 13 Performed By: #### L500.2500, L501.4010 #### [facility] [address] [place], [address] TROPONIN-I Collected: 10/07/2017 Status: F Source: [place] 11:[address] [facility] REPOSITORY Order Comment: 'TROP' Serial specimen #1, #2, #3, or #4: 1 TYPE CODE TESTS RESULT OUT OF RANGE REFERENCE UNITS LAB L501.4010 <0.06 ng/mL Normal < 0.02 TROPONIN-I Result Comment: TROPONIN-I EXPECTED VALUES <0.05 NEGATIVE 0.06 - 0.59 AT RISK OF MD > OR = 0.60 SUGGEST MD Performed By: #### L500.2500, L501.4010 #### [facility] [address] [place], [address] HOSP Observed: 10/07/2017 Status: COMPLETED Source: [place] 12:00 AM [facility] REPOSITORY Patient:Jose Gustafson MRN: <[id number]> Height:6' 0(1.829 m) Weight:220 lb 0.3 oz (99.8 kg) Outpatient Medications as of 10/17/17: cetirizine-pseudoephedrine (ZYRTEC-D) 5-120 mg per tablet fluticasone (FLONASE) 50 mcg/actuation nasal spray Lactobacillus acidophilus (FLORAJEN) 460 mg (20 billion cell) cap fluticasone-vilanterol (BREO ELLIPTA) 200-25 mcg/dose inhaler lisinopril (ZESTRIL, PRINIVIL) 5 mg tablet Admission/Clinic Administered Medications as of 10/17/17: piperacillin-tazobactam 3.375 g in dextrose (iso-osmotic) 50 mL (ZOSYN) dextrose 5% in water iv infusion vancomycin 1.25 g in D5W 250 mL (VANCOCIN) aspirin 81 mg chewable tab(s) heparin 5,000 Units injection NaCl 0.9% irrigation solution levETIRAcetam 750 mg in NaCl 0.9% 100 mL (KEPPRA) furosemide 500 mg in empty bottle 50 mL IV infusion (LASIX) PHENYLephrine 80 mg in D5W 250 mL (NEOSYNEPHRINE) Chlorhexidine Gluconate 0.12 % 15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 arrival, monitor and transfuse as needed. Infusions: Fentanyl Norepinephrine Propofol Vasopressin CVICU Admission ECG: Reviewed CVICU Admission CXR: Reviewed Neuro: Sedation . Cardiovascular: Rhythm: regular rate and rhythm and Rate:normal sinus rhythm MAP: 65 mmHg Cardiac Index: 3.6 L/min/m2 Pacemaker : Temporary Epicardial - Pacing Mode: OFF ICD: No Peripheral pulses present: All present Pulmonary: Clear to auscultation and Breath sounds equal Ventilator: Intubated Potential prolonged intubation : Yes (select all that apply) Open chest and Bleeding/coagulopathy Abdominal: Soft and Non-tender Continued need for urinary catheter: Yes - clinical indication: Patient post major surgery requiring fluid balance and input and output measurement. DAY OF SURGERY PLAN: Standard Protocol, intubated patient: Cardiovascular monitoring, stabilization of blood pressure and cardiac function, wean to extubate when ready per protocol. Pain control, glycemic control, DVT prophylaxis, antibiotic prophylaxis. This patient has a high probability of sudden, clinically significant deterioration, which requires the highest level of preparedness to intervene urgently. I participated in the decision making and personally managed or directed the management of the following life and organ supporting interventions that required my frequent assessment to treat or prevent imminent deterioration of: Coagulopathy and Hypotension that I treated with transfusion of blood and /or blood products, electrolytes, fluids, mechanical ventilation, PEEP and vasopressors Atelectasis and Hypoxemia / Increased O2 requirements that I treated with bronchopulmonary hygiene, mechanical ventilation, weaning from mechanical ventilation, inhaled epoprostenol, management of FiO2 and PEEP I personally spent 50 minutes of critical care time treating the patient. Time devoted to any procedures I billed separately is not included. SIGNATURE: Nataliya Umaña CNP DATE of SERVICE: 10/08/2017 TIME of SERVICE: 1:42 AM Previous Version Myriam Melo RN, RN 10/08/2017 8:51 AM Signed 4 sponges left in chest M rudloph Nino MD 10/08/2017 9:04 AM Signed CARDIOTHORACIC BRIEF OP NOTE LOG ID: [id number] SURGERY/PROCEDURE DATE: 10/08/2017 INCISION/PROCEDURE START TIME: 8:14 AM INCISION CLOSE/PROCEDURE END TIME: SURGEON(S) AND CHISELER HEAD(S): Surgeon(s) and Role: * Arpit Mckenzie - Primary * Mauricio Nino - Assisting Registered Nurse Spinning Doffer: Jamaal (Rn) HERMINIO LentzWOOL PRESSER AND ANESTHESIA: Chest exploration Evacuation of hematoma Open chest with wound vac ANESTHESIA: General BRIEF FINDINGS: clots in chest and pleura PREOPERATIVE DIAGNOSIS: Post-op bleeding POSTOPERATIVE DIAGNOSIS: Coagulopathy ESTIMATED BLOOD LOSS: 500 ml SPECIMENS: None COMPLICATIONS: None SIGNATURE: Mauricio Nino MD PATIENT NAME: Jose Gustafson DATE: October 08, 2017 TIME: 9:03 AM PAGER/CONTACT #: [phone] El Huerta MD 10/08/2017 10:14 AM Signed POST ANESTHESIA EVALUATION NOTE SERVICE DATE: 10/08/2017 s/p chest washout : 1965 Vitals: 10/08/17 0400 10/08/17 0418 10/08/17 0508 10/08/17 0515 Temp: 36.6 ?C (97.9 ?F) 36.4 ?C (97.5 ?F) 36.5 ?C (97.7 ?F) 36.5 ?C (97.7 ?F) 10/08/17 0630 10/08/17 0650 10/08/17 0710 10/08/17 0730 Arterial BP 1: 96/50 93/50 91/49 93/48 BP: 10/08/17 0650 10/08/17 0710 10/08/17 0730 10/08/17 0931 Pulse: 78 77 74 64 10/08/17 0234 10/08/17 0439 10/08/17 0510 10/08/17 0931 Resp: 16 16 18 18 10/08/17 0650 10/08/17 0710 10/08/17 0730 10/08/17 0931 SpO2: 100% 100% 100% 100% Validated Vital Signs: HR: 65; BP: 97/56; RR: 12; SpO2%: 100; Temperature: 36.2 POST ANES STATUS: PACU/ICU Patient Condition: Stable Neurological Status: On intravenous sedation. Pulmonary Status: On invasive mechanical ventilation. Airway Control: Intubated on mechanical ventilation. Cardiovascular Status: Stable and On vasopressor + Flolan Pain: Adequately controlled Postoperative Nausea/Vomiting: No significant post operative nausea or vomiting Postoperative Hydration Status: Adequate. Anesthetic Complications: None Recommendation: Continue current plan of care and Further care per PACU/ICU/Floor team Other Remarks: SIGNATURE: El Huerta MD PATIENT NAME: Jose Gustafson DATE: October 08, 2017 TIME: 10:13 AM PAGER/CONTACT #: [phone] Boubacar Burton, 10/08/2017 10:36 AM Addendum [facility] Progress Note Name: Jose Gustafson COORDINATION OF CARE NOTE: Indication for Surgery: Spontaneous Rupture of Aorta LVEF: Normal RVF: Normal Important/Relevant PMH/PSH: HTN, asthma, hx kidney stones Preoperative Hospital Course (narrative): 52 yo M with PMH HTN, Asthma, and hx of kidney stones who is transferred to [facility] for 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 Procedure/Surgeries: 10/08/2017 Total arch replacement with FET under DHCA 10/08/2017 Chest exploration / Evacuation of hematoma / Open chest with wound vac Airway Difficulty: Grade I - No special instrumentation OR Course: Transient or mild hypotension and Coagulopathy/bleeding Pacing wires: Yes: Ventricular: When discontinuing pacing wires: Cut all pacing wires Postoperative Course/General Impression: (narrative or log of major events with date of onset): Arrived to CVICU intubated, and sedated, on iVeletri, open chest, maintain overnight, plan to go back to OR later today for possible closure. Coagulopathy/bleeding intraop, transfused multiple blood products in OR, transfuse postop as needed. Hypotensive intraop, arrived on 4mcg Levo and 0.02 Vaso. The patient continued to bleed overnight and went back to the OR the following morning and large amount of clots were removed but no active bleeding. Issues to communicate at signout: 10/08/2017 OPEN CHEST - s/p chest exploration Volume resuscitation, monitor lactate Titrate NE/Vaso for MAP > 65 Wean iVeletri for mPAP < 30 Correct coagulopathy Transfuse for HCT > 27% OTHER PROBLEMS I MANAGED DURING THIS ENCOUNTER: Problem Dissection of Thoracic Aorta (Hcc) Patient with chest pain at OSH CT chest showing type a dissection 10/08/2017 s/p Total arch replacement with FET under DHCA A/P: Arrived to CVICU with open chest due to bleeding intraop. S/p chest washout this am. Aortic Dissection (Hcc) Patient with hx of htn Presented with chest pain CT chest showing likely type a dissection BP low no impulse control CTS plan for OR 10/08/2017 Total arch replacement with FET under DHCA 10/08/2017 Chest exploration / Evacuation of hematoma / Open chest with wound vac Atelectasis Grade 1 airway A/P: Arrived to CVICU intubated on iVeletri, maintain overnight. PEEP. Hypoxia 10/08/2017 PEEP therapy, wean FiO2. Postoperative Hypotension A/P: Arrived to CVICU on 4mcg Levo and 0.02 Vaso, wean as able to goal MAP 65-75. Essential Hypertension Patient with HTN on lisinopril 5 at baseline BPs on checks have been 115-130s systolic at latest visits A/P: Arrived to CVICU hypotensive requiring vasopressor support. Hold BP meds for now. Pain, Postoperative, Acute A/P: Fentanyl infusion while intubated with open chest for pain control. Lactic Acid Acidosis Volume resuscitation. Coagulopathy (Hcc) A/P: Coagulopathy/bleeding intraop, transfused 10 FFP, 8 PRBC, 6 platelets, 4 cryo in OR. Since arrival at 0100, have transfused 6 FFP, 8 PRBC, 3 platelets, 2 cryo. F/u coags, 2 platelets given in OR for washout. Acute Blood Loss Anemia A/P: H/H 02/16 on arrival, received 8 PRBC intraop, transfuse 2 units on arrival, monitor and transfuse as needed. 10/08/2017 Transfuse for HCT >= 27%. SUBJECTIVE INTERVAL HISTORY: critically ill as above. PERTINENT REVIEW OF SYSTEMS: See Assessment and Plan. Remaining ROS reviewed and negative. PHYSICAL EXAM AND PERTINENT DATA: Infusions: NE, vaso, fent, prop, RHI, iVeletri Vital Signs: BP 152/83 Pulse 63 Temp (!) 35 ?C (95 ?F) (Core) Resp 18 Ht 182.9 cm (6') SpO2 100% Neuro: sedated, intubated Cardiovascular: Rhythm: SR MAP: 65 mm Hg CVP: 12 mm Hg PAP: 28/14 mm Hg Cardiac Index: 2.8 L/min/m2 Recent Labs 10/07/17 1415 TROPT <0.010 Pulmonary: Clear to auscultation and Breath sounds equal Ventilator: Intubated: SPCV; FiO2: 0.7; PEEP: 10; Not ready for weaning; HOB elevated 40 degrees: Yes; Oral care with chlorhexidine: Yes; Was sedation turned off? No: Why? Contraindicated because patient's chest is open Recent Labs 10/08/17 1007 10/08/17 0939 10/08/17 0835 10/08/17 0752 PH -- 7.41 7.35 7.41 PCO2 -- 47* 55* 51* PO2 -- 128* 79* 133* HCO3 -- 29* 30* 32* O2HB -- 97 94* 98 LACT 5.6* 5.5* 5.1* 3.9* CXR Findings: CXR personally viewed and interpreted by ICU staff Physician Gastrointestinal: Abdominal: Soft and Distended Recent Labs 10/08/17 0105 10/07/17 1415 TPROT 4.3* 5.0* ALB 2.6* 3.0* ALKPHOS 28* 54 TBILI 1.5* 1.1 AST 205* 11* ALT 178* 14 Heme: Recent Labs 10/08/17 0931 10/08/17 0615 10/08/17 0300 WBC 4.81 4.75 4.33 HB 7.4* 8.5* 7.1* HCT 21.6* 24.1* 20.5* PLT 147* 117* 117* Recent Labs 10/08/17 0931 10/08/17 0615 10/08/17 0300 PTSEC 13.2* 11.9 13.8* INR 1.3 1.2 1.4* APTT 41.1* 32.1 45.4* Endocrine: Recent Labs 10/07/17 1415 TSH 5.250 Renal: Worsening Intake/Output Summary (Last 24 hours) at 10/08/17 0659 Last data filed at 10/08/17 0630 Gross per 24 hour Intake 40520 ml Output 5620 ml Net 7061 ml Recent Labs 10/08/17 1007 10/08/17 0555 10/08/17 0121 10/08/17 0105 10/07/17 1415 NA -- -- -- 152* -- 138 K -- -- -- 3.4* -- 4.6 CHLOR -- -- -- 104 -- 105 CO2 31* 37* 33* 30 < > 21* BUN -- -- -- 13 -- 14 CREAT -- -- -- 1.52* -- 1.22 GLUC -- -- -- 82 -- 153* < > = values in this interval not displayed. Recent Labs 10/08/17 0105 10/07/17 1415 CA 9.8 7.7* Recent Labs 10/07/17 1415 MG 2.0 Recent Labs 10/07/17 1415 P 1.8* Mr. Gustafson is critically ill as documented above. He is in the early stages of shock liver, CASSIUS, vasoplegic shock, and open-chest. I have titrated pressors for MAP > 65. I have weaned iVeletri for mPAP < 30. I have transfused for HCT >= 27%. I have discussed the POC with the CTS team. I have weaned FiO2 for PaO2 > 70 and titrated PEEP. I have discussed the case and the plan and management of the patient's care with the primary surgical team and consulting services, the bedside nurse and the respiratory therapist. Additional CCT = 62 minutes. SIGNATURE: Boubacar Burton DO DATE of SERVICE: 10/08/2017 TIME of SERVICE: 10:30 AM Previous Version PANCHO CORNELIUS, PHARMACIST 10/08/2017 11:13 AM Signed PHARMACY VANCOMYCIN DOSING NOTE Patient Name: Jose Gustafson Admission Date: 10/07/2017 Date of Consult: 10/08/2017 Time of Consult: 11:11 AM Indication: Source Unknown; empiric Goal Range: 10-20 mcg/mL RECOMMENDATIONS/PLAN: Pharmacy consulted for vancomycin dosing for Jose Gustafson, a 52 year old, male who is being treated with vancomycin for empiric coverage/open chest 1. Patient is currently ordered Vancomycin 1 g IV q12h. Today is day 1 of therapy. 2. No vancomycin level has been drawn for this dosing regimen. 3. Will adjust vancomycin to 1.25 g with a dosing interval of q24h starting tonight (12 hours after 1st dose) 4. The next vancomycin level will be ordered for 10/11 unless clinically indicated sooner. (Pharmacy will order) We will follow patient renal function, vancomycin levels and doses with you during the course of therapy. Additional recommendations will appear in follow up notes. If you have any questions, please contact STEPHEN MAR at pager [phone]. Age: [age] year old Allergies: ALLERGIES Allergen Reactions - Cats - Grass Pollen Itching Last 3 Encounter Wt Readings: Date: Wt: 09/07/2017 84.6 kg (186 lb 6.4 oz) 08/24/2017 83.5 kg (184 lb) 08/01/2017 87.1 kg (192 lb) Last 1 Encounter Ht Readings: Date: Ht: 10/07/2017 182.9 cm (6') CrCl: 50-60 mL/min with a recent climb in SCr Temp (24hrs), Av.8 ?C (96.4 ?F), Min:34.9 ?C (94.8 ?F), Max:36.6 ?C (97.9 ?F) - Current Temp: (!) 35.1 ?C (95.2 ?F) Labs BUN (mg/dL) Date Value 10/08/2017 13 10/07/2017 14 10/10/2016 27 (H) Creatinine (mg/dL) Date Value 10/08/2017 1.52 (H) 10/07/2017 1.22 10/10/2016 1.04 WBC (k/uL) Date Value 10/08/2017 4.81 10/08/2017 4.75 10/08/2017 4.33 Vancomycin Levels: No results found for: MAIRA CORNELIUS, PHARMACIST Anna Souza RN 10/08/2017 1:25 PM Signed CARE MANAGEMENT: ASSESSMENT AND DISCHARGE PLAN SERVICE DATE: 10/08/2017 SERVICE TIME: 1:08PM PRIMARY CARE PHYSICIAN: Kaykay Beth MD ADMISSION STATUS: Inpatient Needs Prior to Discharge: To Be Determined 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 No Health Literacy: 1. How often do you need to have someone help you when you read instructions, pamphlets, or other written material from your doctor or pharmacy? Rarely - 2 2. How confident are you filling out medical forms by yourself? Extremely - 1 If Patient scores > 3 on either question, the following interventions were put into place: Patient did not score > 3 FUNCTIONAL AND COGNITIVE/BEHAVIORAL PRIOR TO ADMISSION: Baseline Mental Status: Alert AND Oriented, Person, Place , Time and Situation Functional Status: Independent Does Patient Currently Receive Any Community Services or Home Care? None Equipment Prior to Admission: None Has the Patient Been in a Penitentiary Facility in the Past 30 days? 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 Yes Patient's transition needs and plan for meeting these needs: To transition from ICU to step-down; then return home. Discharge needs TBD pending medical course. Does the patient have an acute stroke diagnosis, or has the patient had a stroke during this admission? No Medication Adherence: I am convinced of the importance of my prescription medication: Agree completely - 0 I worry that my prescription medication will do more harm than good to me Disagree completely - 0 I feel financially burdened by my [id number] expenses for my prescription medication: Disagree completely - 0 Patient is categorized as low risk < 2 Are you interested in bedside delivery of your medications? Yes Food Concerns: In the Last Month, Have You had Trouble Getting Food? No trouble getting food During the Last Month, Have You Worried Whether Your Food Would Run Out Before You Had Enough Money to Buy More? No Is the Patient Psychosocially Complex? No ASSESSMENT AND PLAN: Medical Needs: None Psychosocial Needs: None FREEDOM OF CHOICE EXPLAINED: TBD; pending medical course POTENTIAL TRANSITION PLANS Home Home Care Per EMR; 10/08/2017 Total arch replacement with FET under [facility]CA 10/08/2017 Chest exploration / Evacuation of hematoma / Open chest with wound vac Patient is currently intubated. FIO2 50%. Met with patient's this afternoon to introduce myself and explain my role as Lumber Cutter. She was able to answer the CM assessment questions. The patient lives with his in [place], [place]. They live in a single level home with 3 steps for entry. His can transport him home once he is medically cleared for discharge. The patient was independent and very healthy prior to his admission according to his . 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 No reports of DME or home oxygen. The patient's does not anticipate any home going needs at this time. Case Management will continue to follow patient for discharge needs/planning. SIGNATURE: Anna Souza RN PATIENT NAME: Jose Gustafson DATE: October 08, 2017 TIME: 1:08 PM PAGER/CONTACT #: [phone] JOSE DAVID MACKAY MD 10/09/2017 9:41 AM Signed [facility] Note Name: Jose Gustafson COORDINATION OF CARE NOTE: Indication for Surgery: Spontaneous Rupture of Aorta LVEF: Normal RVF: Normal Important/Relevant PMH/PSH: HTN, asthma, hx kidney stones Preoperative Hospital Course (narrative): 52 yo M with PMH HTN, Asthma, and hx of kidney stones who is transferred to [facility] for 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 Procedure/Surgeries: 10/08/2017 Total arch replacement with FET under DHCA 10/08/2017 Chest exploration / Evacuation of hematoma / Open chest with wound vac Airway Difficulty: Grade I - No special instrumentation OR Course: Transient or mild hypotension and Coagulopathy/bleeding Pacing wires: Yes: Ventricular: When discontinuing pacing wires: Cut all pacing wires Postoperative Course/General Impression: (narrative or log of major events with date of onset): Arrived to CVICU intubated, and sedated, on iVeletri, open chest, maintain overnight, plan to go back to OR later today for possible closure. Coagulopathy/bleeding intraop, transfused multiple blood products in OR, transfuse postop as needed. Hypotensive intraop, arrived on 4mcg Levo and 0.02 Vaso. The patient continued to bleed overnight and went back to the OR the following morning and large amount of clots were removed but no active bleeding. Issues to communicate at signout: 10/09/2017 OPEN CHEST - s/p chest exploration Volume resuscitation, monitor lactate Titrate NE/Vaso for MAP > 65 Wean iVeletri for mPAP < 30 Gentle diuresis OTHER PROBLEMS I MANAGED DURING THIS ENCOUNTER: Problem Hypoxia 10/08/2017 PEEP therapy, wean FiO2. 10/09 On vent with 50% FIO2 - cont with open chest Postoperative Hypotension A/P: Arrived to CVICU on 4mcg Levo and 0.02 Vaso, wean as able to goal MAP 65-75. 10/09 Increased support with epi, levo, vaso, phenyl -wean as able for MAP > 65 Lactic Acid Acidosis Volume resuscitation. 10/09 Lactate mildly elevated, following - has been adeq vol resuscitated - wean pressors as tolerated Coagulopathy (Hcc) A/P: Coagulopathy/bleeding intraop, transfused 10 FFP, 8 PRBC, 6 platelets, 4 cryo in OR. Since arrival at 0100, have transfused 6 FFP, 8 PRBC, 3 platelets, 2 cryo. F/u coags, 2 platelets given in OR for washout. 10/09 plts 99k, coags stable - follow Acute Blood Loss Anemia A/P: H/H 02/16 on arrival, received 8 PRBC intraop, transfuse 2 units on arrival, monitor and transfuse as needed. 10/08/2017 Transfuse for HCT >= 27%. 10/09/17 Currently stable at 05/27 - follow Acute Kidney Injury (Hcc) Cr elevated from baseline of .89 to 2.16 Will diurese gently as tolerated. Follow Cr and lytes PHYSICAL EXAM AND PERTINENT DATA: Neuro: Sedation Pain Control : Is pain control adequate: Yes Cardiovascular: Rhythm: paced and Rate:paced, 80 HR: 80 SpO2: 98 Temperature: afebrile MAP: 71 mmHg CVP: 15 mmHg PAP: 35/15 mmHg Cardiac Index: 2.6 L/min/m2 Aortic arch or descending aortic repair: Yes Recent Labs 10/09/17 0003 10/07/17 1415 TROPT 1.770* <0.010 Pulmonary: Clear to auscultation and Breath sounds equal Ventilator: Intubated: PCV; FiO2: 50; PEEP: 10 cmH2O; PSV; HOB elevated 40 degrees: Yes; Oral care with chlorhexidine: Yes; Was sedation turned off? Yes Recent Labs 10/09/17 0759 10/09/17 0606 10/09/17 0410 PH 7.44 7.44 7.37 PO2 128* 86 110* PCO2 39 40 48* HCO3 26 26 27* O2HB 97 95 96 CXR Findings: Atelectasis Bilateral and Increased Vascular Markings Bilateral Gastrointestinal: Abdominal: Soft Recent Labs 10/09/17 0003 10/08/17 0105 10/07/17 1415 TPROT 4.9* 4.3* 5.0* ALB 2.9* 2.6* 3.0* MG -- -- 2.0 CA 8.8 9.8 7.7* ALKPHOS 30* 28* 54 TBILI 1.5* 1.5* 1.1 AST 160* 205* 11* ALT 123* 178* 14 Heme: Recent Labs 10/09/17 0740 10/09/17 0003 10/08/17 1710 10/08/17 1135 HB 10.3* 9.8* 9.8* 9.2* HCT 29.7* 28.5* 27.6* 25.9* PLT 99* 147* 188 158 PTSEC 12.5 -- 12.1 12.2 INR 1.2 -- 1.2 1.2 APTT 39.2* -- 31.3 32.3 Recent Labs 10/09/17 0740 10/09/17 0003 10/08/17 1710 WBC 11.20* 10.38 9.26 Renal: Worsening and CASSIUS Recent Labs 10/09/17 0755 10/09/17 0741 10/09/17 0609 10/09/17 0003 10/08/17 0105 10/07/17 1415 NA -- -- -- -- 143 -- 152* -- 138 K -- -- -- -- 4.7 -- 3.4* -- 4.6 CHLOR -- -- -- -- 100 -- 104 -- 105 CO2 Duplicate request Duplicate request 31* 30* < > 26 < > 30 < > 21* CREAT -- -- -- -- 2.16* -- 1.52* -- 1.22 BUN -- -- -- -- 21 -- 13 -- 14 GLUC -- -- -- -- 191* -- 82 -- 153* P -- -- -- -- -- -- -- -- 1.8* MG -- -- -- -- -- -- -- -- 2.0 CA -- -- -- -- 8.8 -- 9.8 -- 7.7* < > = values in this interval not displayed. DAILY CVICU CHECKLIST VTE Prophylaxis: Pharmacologic No - because bleeding risk VTE Prophylaxis: Mechanical: Yes Line infection prevention: Can CVC, PAC or arterial line be removed: No Continued need for urinary catheter: Yes - clinical indication: Patient post major surgery requiring fluid balance and input and output measurement. This patient has a high probability of sudden, clinically significant deterioration, which requires the highest level of preparedness to intervene urgently. I participated in the decision making and personally managed or directed the management of the following life and organ supporting interventions that required my frequent assessment to treat or prevent imminent deterioration of: Cardiac Insufficiency and Hypotension that I treated with inotropes and vasopressors Atelectasis, Hypoxemia / Increased O2 requirements and open chest that I treated with mechanical ventilation, management of FiO2 and PEEP CASSIUS that I treated with optimization of electrolytes, blood pressure and blood volume and diuretics I discussed the plan of care with the care team I personally spent 45 minutes of critical care time treating the patient. Time devoted to any procedures I billed separately is not included. SIGNATURE: JOSE DAVID MACKAY MD DATE of SERVICE: 10/09/2017 TIME of SERVICE: 9:35 AM Griselda Cain Pharmacist 10/09/2017 7:59 PM Signed PHARMACY VANCOMYCIN DOSING NOTE Patient Name: Jose Gustafson Admission Date: 10/07/2017 Date of Consult: 10/09/2017 Time of Consult: 7:52 PM Indication: Source Unknown; empiric Goal Range: 10-20 mcg/mL RECOMMENDATIONS/PLAN: Pharmacy consulted for vancomycin dosing for Jose Gustafson, a 52 year old, male who is being treated with vancomycin for empirci 1. Patient is currently ordered Vancomycin dosed by level. Today is day 2 of therapy. 2. The most recent vancomycin level was 13.6 mcg/mL drawn at 18:22 on 10/09/2017. This is a 22 hour level after 1.25g given on 10/08 3. Vancomycin level is within therapeutic range. Serum creatinine and/or urine output have changed markedly in the previous days. Will give vancomycin 1.25g x 1 dose, then dose by level 4. The next vancomycin level will be ordered in 24 to 48 hours unless clinically indicated sooner. (Pharmacy will order) We will follow patient renal function, vancomycin levels and doses with you during the course of therapy. Additional recommendations will appear in follow up notes. If you have any questions, please [place] [phone] (pager). Age: [age] year old Allergies: ALLERGIES Allergen Reactions - Cats - Grass Pollen Itching Last 3 Encounter Wt Readings: Date: Wt: 10/07/2017 85 kg (187 lb 6.3 oz) 09/07/2017 84.6 kg (186 lb 6.4 oz) 08/24/2017 83.5 kg (184 lb) Last 1 Encounter Ht Readings: Date: Ht: 10/07/2017 182.9 cm (6') CrCl: 43 mL/min Temp (24hrs), Av.4 ?C (99.3 ?F), Min:37.3 ?C (99.1 ?F), Max:37.5 ?C (99.5 ?F) - Current Temp: 37.3 ?C (99.1 ?F) Labs BUN (mg/dL) Date Value 10/09/2017 21 10/08/2017 13 10/07/2017 14 Creatinine (mg/dL) Date Value 10/09/2017 2.16 (H) 10/08/2017 1.52 (H) 10/07/2017 1.22 WBC (k/uL) Date Value 10/09/2017 11.20 (H) 10/09/2017 10.38 10/08/2017 9.26 Vancomycin Levels: Vancomycin, result (ug/mL) Date Value 10/09/2017 13.6 Griselda Cain, Pharmacist Arpit Mckenzie MD 10/14/2017 11:35 AM Addendum [place] [phone] [place] OPERATIVE REPORT DEPARTMENT OF THORACIC AND CARDIOVASCULAR SURGERY NAME: JOSE GUSTAFSON [facility] #: [id number] DATE: 10/10/2017 AGE: 52 SURGEON 1: Arpit Mckenzie M.D. SURGEON 2: CHISELER HEAD 1: Mayito Vera M.D. CHISELER HEAD 2: ANESTHESIA: General. OPERATIONS: Chest exploration, chest washout, left chest open with vacuum drainage. 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 POSTOPERATIVE DIAGNOSES: Status post left type A aortic dissection repair with frozen elephant trunk and chest open. OPERATIVE INDICATIONS: The procedure risks of washout and potential chest closure were discussed with the family. The family understood and agreed to proceed. OPERATIVE PROCEDURE: The patient was prepped and draped in the usual sterile fashion. Under general anesthesia, all the previous vacuum dressing was removed. We did then find a small amount of clots in the pericardium that were sent for culture, but there was no active bleeding, completely dry. We irrigated with pulse lavage wirh vancomycin solution. We used pulse lavage with vancomycin and gentamicin solution antibiotics for 20 minutes. We irrigated out at least 3 L of saline solution with antibiotics. We tried to close the chest, but presented compression of all mediastinum due to a sweling lungs, the O2 saturation dropped and the pO2 went down. So, we decided to left the chest open with a vacuum dressing as well as same drainage chest tube. The patient tolerated the washout and in stable condition was transferred to CVICU and the chest open. The CHARGE HAND was Jarret Jaimes. START OF OPERATION: 02:51 p.m. FINISH OF OPERATION: 04:01 p.m. ESTIMATED BLOOD LOSS: Minimal. DRAINS: 2 mediastinal, 2 Chest tubes, 2 Blakes SPECIMENS: Mediastinal clot. Arpit Mckenzie M.D. JN:[id number] /[id number] cc: Previous Version JOSE DAVID MACKAY MD 10/13/2017 12:03 PM Addendum [facility] Note Name: Jose Gustafson COORDINATION OF CARE NOTE: Indication for Surgery: Spontaneous Rupture of Aorta LVEF: Normal RVF: Normal Important/Relevant PMH/PSH: HTN, asthma, hx kidney stones Preoperative Hospital Course (narrative): 52 yo M with PMH HTN, Asthma, and hx of kidney stones who is transferred to [facility] for 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 Procedure/Surgeries: 10/08/2017 Total arch replacement with FET under DHCA 10/08/2017 Chest exploration / Evacuation of hematoma / Open chest with wound vac Airway Difficulty: Grade I - No special instrumentation OR Course: Transient or mild hypotension and Coagulopathy/bleeding Pacing wires: Yes: Ventricular: When discontinuing pacing wires: Cut all pacing wires Postoperative Course/General Impression: (narrative or log of major events with date of onset): Arrived to CVICU intubated, and sedated, on iVeletri, open chest, maintain overnight, plan to go back to OR later today for possible closure. Coagulopathy/bleeding intraop, transfused multiple blood products in OR, transfuse postop as needed. Hypotensive intraop, arrived on 4mcg Levo and 0.02 Vaso. The patient continued to bleed overnight and went back to the OR the following morning and large amount of clots were removed but no active bleeding. Issues to communicate at signout: 10/10/2017 OPEN CHEST - s/p chest exploration Volume resuscitation, monitor lactate Titrate NE/Vaso for MAP > 65 Diuresis Possible chest closure today OTHER PROBLEMS I MANAGED DURING THIS ENCOUNTER: Problem Dissection of Thoracic Aorta (Hcc) Patient with chest pain at OSH CT chest showing type a dissection 10/08/2017 s/p Total arch replacement with FET under [employer]CA A/P: Arrived to CVICU with open chest due to bleeding intraop. S/p chest washout this am. 10/10 Chest open, possible washout / closure today Hypoxia 10/08/2017 PEEP therapy, wean FiO2. 10/09 On vent with 50% FIO2 - cont with open chest 10/10 40%, +10 PEEP - cont vent with open chest Postoperative Hypotension A/P: Arrived to CVICU on 4mcg Levo and 0.02 Vaso, wean as able to goal MAP 65-75. 10/09 Increased support with epi, levo, vaso, phenyl -wean as able for MAP > 65 10/10 Increased support with epi, levo, vaso, phenyl -wean as able for MAP > 65 Pain, Postoperative, Acute A/P: Fentanyl infusion while intubated with open chest for pain control. - adequate Lactic Acid Acidosis Volume resuscitation. 10/09 Lactate mildly elevated, following - has been adeq vol resuscitated - wean pressors as tolerated 10/10 Remains borderline, KUB non-specific, abd soft and nontender, nondistended. Wean drips as able Cardiac Insufficiency (Hcc) 10/10 Cont with marginal CO / CI on epi, levo vaso AND juana. SVO2 in mid 50's Cont to support and wean drips as tolerated Acute Kidney Injury (Hcc) Cr elevated from baseline of .89 to 2.16 now 2.18 Will diurese as tolerated due to significant fluid overload Follow Cr and lytes PHYSICAL EXAM AND PERTINENT DATA: Neuro: Follows commands and Sedation Pain Control : Is pain control adequate: Yes Cardiovascular: Rhythm: paced and Rate:paced HR: 100 SpO2: 95 Temperature: afebrile MAP: 74 mmHg CVP: 16 mmHg PAP: 29/17 mmHg Cardiac Index: 2.1 L/min/m2 Recent Labs 10/09/17 0003 10/07/17 1415 TROPT 1.770* <0.010 Pulmonary: Clear to auscultation and Breath sounds equal Ventilator: Intubated: PCV; FiO2: 40; PEEP: 10 cmH2O; Not ready for weaning; HOB elevated 40 degrees: Yes; Oral care with chlorhexidine: Yes; Was sedation turned off? Yes Recent Labs 10/10/17 0746 10/10/17 0523 10/10/17 0409 PH 7.43 7.42 7.43 PO2 94 79* 167* PCO2 41 43 40 HCO3 27* 27* 26 O2HB 96 94* 97 CXR Findings: Increased Vascular Markings Bilateral, CXR personally viewed and interpreted by ICU staff Physician and open chest Gastrointestinal: Abdominal: Soft and Non-tender Recent Labs 10/10/17 0200 10/09/17 0003 10/08/17 0105 10/07/17 1415 TPROT 4.6* 4.9* 4.3* 5.0* ALB 2.8* 2.9* 2.6* 3.0* MG -- -- -- 2.0 CA 7.6* 8.8 9.8 7.7* ALKPHOS 31* 30* 28* 54 TBILI 1.2 1.5* 1.5* 1.1 AST 358* 160* 205* 11* ALT 309* 123* 178* 14 Heme: Recent Labs 10/10/17 0200 10/09/17 0740 10/09/17 0003 10/08/17 1710 10/08/17 1135 HB 10.9* 10.3* 9.8* 9.8* 9.2* HCT 31.8* 29.7* 28.5* 27.6* 25.9* PLT 96* 99* 147* 188 158 PTSEC -- 12.5 -- 12.1 12.2 INR -- 1.2 -- 1.2 1.2 APTT -- 39.2* -- 31.3 32.3 Recent Labs 10/10/17 0200 10/09/17 0740 10/09/17 0003 WBC 13.13* 11.20* 10.38 Renal: Stable Recent Labs 10/10/17 0746 10/10/17 0526 10/10/17 0412 10/10/17 0200 10/09/17 0003 10/08/17 0105 10/07/17 1415 NA -- -- -- -- 139 -- 143 -- 152* -- 138 K -- -- -- -- 4.2 -- 4.7 -- 3.4* -- 4.6 CHLOR -- -- -- -- 100 -- 100 -- 104 -- 105 CO2 30* 30* 30* < > 26 < > 26 < > 30 < > 21* CREAT -- -- -- -- 2.18* -- 2.16* -- 1.52* -- 1.22 BUN -- -- -- -- 27* -- 21 -- 13 -- 14 GLUC -- -- -- -- 131* -- 191* -- 82 -- 153* P -- -- -- -- -- -- -- -- -- -- 1.8* MG -- -- -- -- -- -- -- -- -- -- 2.0 CA -- -- -- -- 7.6* -- 8.8 -- 9.8 -- 7.7* < > = values in this interval not displayed. DAILY CVICU CHECKLIST VTE Prophylaxis: Pharmacologic No - because bleeding risk VTE Prophylaxis: Mechanical: Yes Line infection prevention: Can CVC, PAC or arterial line be removed: No Continued need for urinary catheter: Yes - clinical indication: Patient post major surgery requiring fluid balance and input and output measurement. This patient has a high probability of sudden, clinically significant deterioration, which requires the highest level of preparedness to intervene urgently. I participated in the decision making and personally managed or directed the management of the following life and organ supporting interventions that required my frequent assessment to treat or prevent imminent deterioration of: Cardiac Insufficiency, Hypotension and relative bradycardia that I treated with inotropes, vasopressors and pacing Respiratory failure treated with mechanical ventil;ation CASSIUS treated with diuretics and follow lytes Care pklan with ICU and surgical teams I personally spent 40 minutes of critical care time treating the patient. Time devoted to any procedures I billed separately is not included. SIGNATURE: JOSE DAVID MACKAY MD DATE of SERVICE: 10/10/2017 TIME of SERVICE: 9:06 AM CASSIUS likely due to hemodynamic instability and acute respiratory failure with hypoxia Previous Version Randee Santoro, APPLICATIONS SALES CONSULTANT.ROVING HAULER 10/10/2017 9:46 AM Addendum A/P: Right lower lip: device related mucus membrane pressure injury. Area is light purple, intact and nonblanchable. Edges are intact. Surrounding skin is clear and intact. Etiology is likely pressure from the oral gastric tube(OGT) that was in place in the OR on 10/07/2017 for 10 hours and remains in-place now. The shape correlates with the current OGT . Unable to evaluate the posterior surface as the patient has an open chest and is going to the OR today. 1.) Right lower lip: device related mucus membrane pressure injury, acquired Recommendations: - Mouth moisturizer to lips BID. - Apply Critic-aid Clear to perianal area and bilateral ischium TID and as needed. - Maintain Oleg-Sundar heel protectors to bilateral lower extremities, to off-load heels, while in bed. - Maintain Air Turn AND Position (TAP) System. Turn patient every two hours using the TAP wedges avoiding pressure over the coccyx/sacral region. - Sween cream to bilateral feet BID. - Maintain low air-loss bed. - Nutrition consult advised for optimized wound healing. - Wound care will sign off on patient, reconsult Wound Care if wounds worsens or additional recommendations needed. 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 WCCT consulted for Type A dissection. 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 On 10/08/2017 underwent Total arch replacement with FET under DHCA. OR course complicated by transient or mild hypotension and Coagulopathy/bleeding. Arrived to CVICU intubated, and sedated, on iVeletri, open chest, maintain overnight, plan to go back to OR later today for possible closure. Coagulopathy/bleeding intraop, transfused multiple blood products in OR, transfuse postop as needed. Hypotensive intraop, arrived on 4mcg Levo and 0.02 Vaso. The patient continued to bleed overnight and went back to the OR the following morning for chest exploration / Evacuation of hematoma / Open large amount of clots were removed but no active bleeding and wound VAC placed. Remains in the ICU, intubated with mechanical ventilation. Current interventions in use: TAP: Yes. Turning wedges/positioner: Yes. Offloading boots: Yes. Head cushion/positioner: Yes. Seating cushion: No Incontinence management: Yes. Current Bed: low air-loss Barriers to healing: Diabetic: No PAD/PVD/Insufficiency: No Immunosuppression: No Sickle Cell Disease: No Chemotherapy: No Radiation Therapy: No Spinal Cord Disease: No Mobility: difficult to assess Nicotine: Tobacco Use: Types: Cigars Nutrition Consult: No Obesity: No Current Antibiotic Coverage: Yes. Warfarin/Heparin: No Steroids: Yes. Inotropes/Pressors: Yes. PHYSICAL EXAM: BP 152/83 Pulse 100 Temp (Src) 100.8 (Core) Resp 20 Ht 6' 0 (1.83m) Wt 187 lb 6.3 oz (85.0kg) SpO2 94% BMI 25.41 kg/(m2). PRESSURE ULCERS Pressure Injury 10/08/17 1121 Lip - Lower (Active) Main [facility] Units Operating Room 10/10/2017 9:00 AM Stage Injury Mucous Membrane 10/10/2017 9:00 AM Job Change Crew Member Related Pressure Injury Yes 10/10/2017 9:00 AM Dressing Status None: Open to Air 10/10/2017 9:00 AM Frequency of Dressing Change Twice a Day 10/10/2017 9:00 AM Dressing Change Due 10/10/17 10/10/2017 9:00 AM Dressing/Treatment Type Moisturizing Cream 10/10/2017 9:00 AM Drainage Description None 10/10/2017 9:00 AM Drainage Amount None 10/10/2017 9:00 AM Odor No 10/10/2017 9:00 AM Wound Surface Color Light Purple 10/10/2017 9:00 AM Percentage of Each Color 100 10/10/2017 9:00 AM Edges Intact;Irregular 10/10/2017 9:00 AM Surrounding Skin Intact 10/10/2017 9:00 AM Length in Cm - Weekly 0.5 Cm 10/10/2017 9:00 AM Width in Cm - Weekly 1 Cm 10/10/2017 9:00 AM Depth in Cm - Weekly 0 Cm 10/10/2017 9:00 AM Undermining Length (Cm) - Weekly 0 Cm 10/10/2017 9:00 AM Tunnel Length (cm) - Weekly 0 Cm 10/10/2017 9:00 AM SURGICAL INCISIONS Surgical Incision 10/07/17 Chest - Midsternal (Active) Dressing Status Initial Post-Op Dressing Intact 10/10/2017 7:30 AM Frequency of Dressing Change Every Other Day 10/08/2017 7:30 PM Dressing /Treatment Type Negative Pressure Wound Therapy 10/10/2017 7:30 AM Incision Closures None 10/10/2017 7:30 AM Drainage Description Serosanguineous 10/10/2017 7:30 AM Drainage Amount Medium 10/10/2017 7:30 AM Edges Intact 10/10/2017 7:30 AM Hematoma No 10/10/2017 7:30 AM SURGICAL WOUNDS PMHx: PAST MEDICAL HISTORY Diagnosis Date - Acute kidney injury (HCC) 10/09/2017 - History of kidney stones - Hypertension - Unspecified asthma(493.90) PSxHx: PAST SURGICAL HISTORY Procedure Laterality Date - COLONOSCOP W/ OR W/O BRSH SPEC 08/23/2014 Colonoscopy - LITHOTRIPSY EXTRACORP SHOCK WAVE(ESWL) 18 months ago - PAST SURGICAL HISTORY OF 2012 left ankle ORIF- hardware - PAST SURGICAL HISTORY OF 2012 ORIF left wrist - hardware - REMOVAL OF HEEL SPUR 2002, 2004 Bilateral - REPAIR ING HERNIA,5+Y/O,REDUCIBL Hernia repair, inguinal, as infant SOCHx: Social History Marital status: Spouse name: Years of education: Number of children: Social History Main Topics Smoking status: Light Tobacco Smoker Packs/day: 0.00 Years: 0.00 Types: Cigars Smokeless status: Never Used Alcohol use: Yes 6.0 oz/week 4 Cans of Beer (12oz) per week Drug use: No Sexual activity: Yes Partners with: Female HOSPITAL MEDICATIONS: Current hospital medications: furosemide 500 mg in empty bottle 50 mL IV infusion (LASIX) 5 mg/hr INTRAVENOUS CONTINUOUS PHENYLephrine 80 mg in D5W 250 mL (NEOSYNEPHRINE) 25-200 mcg/min INTRAVENOUS CONTINUOUS Chlorhexidine Gluconate 0.12 % 15 mL (PERIDEX) 15 mL ORAL q [address] 20 mg tab(s) (PROTONIX) 20 mg ORAL DAILY (6 AM) pantoprazole 20 mg CUP (PROTONIX) 20 mg ORAL/FEEDING TUBE DAILY (6 AM) senna-docusate 8.6-50 mg 1 tablet (SENNA-S) 1 tablet ORAL BID bisacodyl 10 mg suppository (DULCOLAX) 10 mg RECTAL DAILY PRN ondansetron (PF) 4 mg injection (ZOFRAN) 4 mg INTRAVENOUS q 6 H PRN potassium chloride iv piggyback 10 mEq/100mL 10 mEq INTRAVENOUS PRN potassium chloride iv piggyback 20 mEq/50 mL 20 mEq INTRAVENOUS PRN potassium chloride 40-120 mEq oral powder (KLOR-CON) 40-120 mEq ORAL/FEEDING TUBE PRN 0.9% NaCl 3-5 mL 3-5 mL INTRAVENOUS q 12 H 0.9% NaCl 10 mL 10 mL INTRAVENOUS q 12 H insulin regular human iv bolus 2-10 Units 2-10 Units INTRAVENOUS PRN insulin regular 250 units in NaCl 0.9% 250 mL iv infusion - HVI CVICU NOMOGRAM 0.5-40 Units/hr INTRAVENOUS CONTINUOUS dextrose 50% in water 25 mL syringe 12.5 g INTRAVENOUS PRN dextrose 5% in NaCl 0.2% iv infusion 5 mL/hr INTRAVENOUS CONTINUOUS insulin glargine 0-40 Units pen (long acting) (LANTUS SOLOSTAR, BASAGLAR) 0-40 Units SUBCUTANEOUS As Directed nitroglycerin 50 mg in D5W 250 mL 5-200 mcg/min INTRAVENOUS CONTINUOUS nitroglycerin injection 100 mcg injection syringe 100 mcg INTRAVENOUS PRN PHENYLephrine 0.1 mg injection 100 mcg INTRAVENOUS PRN fentaNYL [employer]REIGHT [employer] PASSENGER AGENT 20 mcg/mL in NaCl 0.9% 100 mL INTRAVENOUS CONTINUOUS naloxone 0.04 mg injection (NARCAN) 0.04 mg INTRAVENOUS PRN lidocaine 5 % 1 Patch (LIDODERM) 1 Patch TRANSDERMAL DAILY lidocaine patch - REMOVE OTHER AT BEDTIME lidocaine - VERIFY PATCH OTHER q 8 H fentaNYL 50 mcg/mL 25-75 mcg injection (SUBLIMAZE) 25-75 mcg INTRAVENOUS q 1 H PRN acetaminophen 1,000 mg tab(s) (TYLENOL) 1,000 mg ORAL q 6 H acetaminophen 1,000 mg CUP (TYLENOL) 1,000 mg NASOGASTRIC q 6 H [START ON 10/12/2017] acetaminophen 650 mg tab(s) (TYLENOL) 650 mg ORAL/FEEDING TUBE q 4 H PRN oxyCODONE IR 5-10 mg tab(s) (ROXICODONE) 5-10 mg ORAL/FEEDING TUBE q 6 H PRN aspirin 162 mg chewable tab(s) 162 mg ORAL/FEEDING TUBE DAILY propofol infusion (DIPRIVAN) 10-50 mcg/kg/min (Order-Specific) INTRAVENOUS CONTINUOUS propofol iv bolus 10-50 mg (DIPRIVAN) 10-50 mg INTRAVENOUS q 1 H PRN vasopressin 20 units in D5W 100 mL (VASOSTRICT) 0.01-0.1 Units/min INTRAVENOUS CONTINUOUS NORepinephrine 4 mg in D5W 250 mL (LEVOPHED) 0.6-20 mcg/min INTRAVENOUS CONTINUOUS fentaNYL iv infusion 20 mcg/mL in NaCl 0.9% 100 mL 25-250 mcg/hr INTRAVENOUS CONTINUOUS ciprofloxacin 400 mg in D5W 200 mL (CIPRO) 400 mg INTRAVENOUS q 12 HR vancomycin dosing and monitoring per pharmacy OTHER As Directed EPINEPHrine iv infusion 4 mg in D5W 250 mL 0.5-4 mcg/min INTRAVENOUS CONTINUOUS albuterol 2.5 mg /3 mL (0.083 %) 2.5 mg (PROVENTIL) 2.5 mg INHALATION QID budesonide 1 mg/2 mL 1 mg nebulizer suspension (PULMICORT) 1 mg INHALATION BID amiodarone 360 mg in D5W 200 mL (NEXTERONE) 0.5-1 mg/min INTRAVENOUS CONTINUOUS ALLERGIES: ALLERGIES Allergen Reactions - Cats - Grass Pollen Itching Labs: WBC Date Value Ref Range Status 10/10/2017 13.13 (H) 3.70 - 11.00 k/uL Final Hemoglobin Date Value Ref Range Status 10/10/2017 10.9 (L) 13.0 - 17.0 g/dL Final Hematocrit Date Value Ref Range Status 10/10/2017 31.8 (L) 39.0 - 51.0 % Final Platelet Count Date Value Ref Range Status 10/10/2017 96 (L) 150 - 400 k/uL Final Comment: Result checked and verified No clot detected. Hemoglobin A1C (%) Date Value 10/07/2017 4.8 Glucose Date Value Ref Range Status 10/10/2017 131 (H) 74 - 99 mg/dL Final Comment: The [place] [employer] (ADA) provides guidance for cutoff values for fasting glucose and random glucose. The ADA defines fasting as no caloric intake for at least 8 hours. Fasting plasma glucose results between 100 to 125 mg/dL indicate increased risk for diabetes (prediabetes). Fasting plasma glucose results greater than or equal to 126 mg/dL meet the criteria for diagnosis of diabetes. In the absence of unequivocal hyperglycemia, results should be confirmed by repeat testing. In a patient with classic symptoms of hyperglycemia or hyperglycemic crisis, random plasma glucose results greater than or equal to 200 mg/dL meet the criteria for diagnosis of diabetes. Reference: Standards of Medical Care in Diabetes 2016, [place] [employer]. Diabetes Care. 2016.39(Suppl 1). Protein, Total Date Value Ref Range Status 10/10/2017 4.6 (L) 6.3 - 8.0 g/dL Final Albumin Date Value Ref Range Status 10/10/2017 2.8 (L) 3.9 - 4.9 g/dL Final Imaging: none Photography: A photo was taken of the patient's wound(s). Photos can be found under the Get Images tab on [facility]. The purpose of the photo(s) is to optimize the patient's medical care and allow a visual aid to their wound evaluation and progress. ? Photo was taken of: lower lip Verbal consent was obtained: No Explain: patient unable to consent ? Photos are uploaded per the wound palliative care physician (WCC) and may not be immediately available for viewing. Contact MILLE LACS [facility] with questions Randee Santoro, MSN, ROVING HAULER, CWOCN Previous Version Melody Gusman MD 10/10/2017 4:19 PM Addendum CARDIOTHORACIC BRIEF OP NOTE LOG ID: [id number] SURGERY/PROCEDURE DATE: 10/10/2017 INCISION/PROCEDURE START TIME: 2:51 PM INCISION CLOSE/PROCEDURE END TIME: 4:01 PM SURGEON(S) AND CHISELER HEAD(S): Surgeon(s) and Role: * Arpit Mckenzie - Primary * Melody Gusman - Fellow - Assisting Registered Nurse Spinning Doffer: Jarret Martinez (Rn) HERMINIO Jaimes PROCEDURES AND ANESTHESIA: Procedure(s) and Anesthesia Type: * EXPLORATION FOR POSTOPERATIVE HEMORRHAGE/THROMBOSIS/INFECTION CHEST - General Chest wash out Chest opened with wound VAC placement (1 spunge) (Attempt closure, but fail due to desaturation.) 2 med Terry, 2 med [address]s, 2 Bilat pleural CTs 3 v-wires, 2 A-wires (CUT) ANESTHESIA: General BRIEF FINDINGS: No bleeding PREOPERATIVE DIAGNOSIS: S/p Type A dissection repair with open chest POSTOPERATIVE DIAGNOSIS: S/p Type A dissection repair with open chest ESTIMATED BLOOD LOSS: Minimal SPECIMENS: None COMPLICATIONS: None SIGNATURE: Melody Gusman MD PATIENT NAME: Jose Gustafson DATE: October 10, 2017 TIME: 4:10 PM PAGER/CONTACT #: Previous Version Emperatriz Maxwell, RN, RN 10/10/2017 4:47 PM Signed {Select Nursing Progress Note Template:[id number] Patient came to OR 63 from J64 with open chest. 4 sponges, 12x12s recorded in nurses note being left intentionally in 10/07/17. Four 12 x 12 removed from chest today 10/10/17. Patient went back to unit with open chest and 1 sponge 12x12 intentionally left in chest. Sher Stinson DO 10/11/2017 8:47 PM Addendum INITIAL CONSULT NEURO STROKE SERVICE DATE: 10/11/2017 SERVICE TIME: 011 REQUESTING PHYSICIAN: Melissa PCP: Kaykay Beth MD REASON FOR STROKE EVALUATION: L Sided weakness Subjective HPI: Mr. Gustafson is a 52 yo male presenting as 2CLOT for L sided weakness. 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 Hospital course as below: - 10/07/17 Total Arch replacement. 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 C/b mild hypotension requiring continued pressors and bleeding s/p multiple blood products in OR. Chest unable to be closed during surgery. - 10/08/17. Chest exploration w/ hematoma evacuation. Chest continued to be open - 10/10/17 Chest washout w/ wound vac. Chest still open. Pt remains on multiple pressors (epi, levo, phenyl) and intubated. 2CLOT called after nursing noted patient to not be moving his LUE and LLE to command or stim. Pt was reportedly moving all ext / at 5pm on 10/10/17. Pt was not on sedation, not on AC and no report of afib. Pt was on ASA 162. Labs sig for: PLT 108, wbc 12.49, SCr 2.18 Pre-admission Was patient on antithrombotic agent prior to admission: No Was patient on lipid lowering agent prior to admission: No Pre-morbid mRS: Premorbid Modified [place] Score: 0 - No symptoms at all PAST MEDICAL HISTORY Diagnosis Date - Acute kidney injury (HCC) 10/09/2017 - History of kidney stones - Hypertension - Unspecified asthma(493.90) PAST SURGICAL HISTORY Procedure Laterality Date - COLONOSCOP W/ OR W/O RUST SPEC 08/23/2014 Colonoscopy - LITHOTRIPSY EXTRACORP SHOCK WAVE(ESWL) 18 months ago - PAST SURGICAL HISTORY OF 2012 left ankle ORIF- hardware - PAST SURGICAL HISTORY OF 2013 ORIF left wrist - hardware - REMOVAL OF HEEL SPUR 2002, 2004 Bilateral - REPAIR ING HERNIA,5+Y/O,REDUCIBL Hernia repair, inguinal, as Social History Marital status: Spouse name: Years of education: Number of children: Social History Main Topics Smoking status: Light Tobacco Smoker Packs/day: 0.00 Years: 0.00 Types: Cigars Smokeless status: Never Used Alcohol use: Yes 6.0 oz/week 4 Cans of Beer (12oz) per week Drug use: No Sexual activity: Yes Partners with: Female FAMILY HISTORY Problem Relation Age of Onset - Stroke Father age 48 of CVA - Asthma Paternal Grandfather ALLERGIES Allergen Reactions - Cats - Grass Pollen Itching MEDICATION Pre-admission Prescriptions Prior to Admission: cetirizine-pseudoephedrine (ZYRTEC-D) 5-120 mg per tablet Take 1 tablet by mouth twice daily as needed. Disp: 60 tablet Rfl: 2 fluticasone (FLONASE) 50 mcg/actuation nasal spray Use 1 [place] in each nostril once daily. Disp: 16 g Rfl: 2 Lactobacillus acidophilus (FLORAJEN) 460 mg (20 billion cell) cap Take 1 capsule by mouth once daily. Disp: 30 capsule Rfl: 0 fluticasone-vilanterol (BREO ELLIPTA) 200-25 mcg/dose inhaler Inhale 1 Inhalation as instructed once daily. Inhale one puff once daily. DO NOT CLICK OPEN UNTIL READY FOR DOSE Disp: 3 Each Rfl: 3 lisinopril (ZESTRIL, PRINIVIL) 5 mg tablet Take 1 tablet by mouth once daily. Disp: 30 tablet Rfl: 11 Current cetirizine-pseudoephedrine (ZYRTEC-D) 5-120 mg per tablet Take 1 tablet by mouth twice daily as needed. fluticasone (FLONASE) 50 mcg/actuation nasal spray Use 1 [place] in each nostril once daily. Lactobacillus acidophilus (FLORAJEN) 460 mg (20 billion cell) cap Take 1 capsule by mouth once daily. fluticasone-vilanterol (BREO ELLIPTA) 200-25 mcg/dose inhaler Inhale 1 Inhalation as instructed once daily. Inhale one puff once daily. DO NOT CLICK OPEN UNTIL READY FOR DOSE lisinopril (ZESTRIL, PRINIVIL) 5 mg tablet Take 1 tablet by mouth once daily. REVIEW OF SYSTEMS unable to obtain. See hpi Objective PHYSICAL EXAM Vital Signs: BP 152/83 Pulse 89 Temp 37.9 ?C (100.2 ?F) (Core) Resp 20 Ht 182.9 cm (6') Wt 85 kg (187 lb 6.3 oz) SpO2 96% BMI 25.41 kg/m2 GENERAL: Difficult to arouse HEENT: Normocephalic/atraumatic RESPIRATORY: Intubated EXTREMITIES: No cyanosis, clubbing or edema. Good capillary refill. SKIN: Open chest w/ wound vac NEUROLOGICAL: LOC: 2 - arousable to painful stimulation only 2 LOC Questions: 2 - none correct 2 LOC Commands: 2 - neither correct 2 LOC Normal Gaze: 0 - normal gaze 0 Visual Helms: 0 - no visual loss 0 Facial Palsy: 0 - normal 0 Motor Left Arm: 4 - no movement at all 4 Motor Right Arm: 3 - no antigravity effort but even minimal movements count 3 Motor Left Le - no movement at all 4 Motor Right Le - no antigravity effort but even minimal movements count 3 Limb Ataxia: 0 - no ataxia (or aphasic, hemiplegic) 0 Sensory: 2 - total loss, patient unaware of touch. coma, bilateral loss 2 Language: 3 - mute, global aphasia, coma 3 Dysarthria: X - intubation or mech barrier X Extinction/Neglect: 0 - normal, none detected (or visual loss alone) 0 Initial NIHSS: 25 (10/11/17 0100 : Lc (Res) [facility] [place]) 25 MENTAL STATUS: Intubated. Does not nod to orientation questions. Intermittently wiggles toes but unclear if it is to command. He is unable to perform any other commands such as make a fist, show thumbs up or open his eyes. CRANIAL NERVES: Gaze midline. PERRLA, Visual helms intact to confrontation, Face symmetric and No facial droop or ptosis. No cough but intact corneal reflex MOTOR: Localizes with his RUE and wiggles his toes on the right. No other motor response to noxious stimuli REFLEXES: Hyper-reflexic throughout SENSATION: Intact noxious stimuli on the right but not the left DATA: Diagnostic tests reviewed for today's visit: Lipids, HbA1c, CMP, CBC, Coags Recent Labs 10/11/17 0003 10/11/17 0001 10/10/17 2359 10/10/17 2151 10/10/17 1951 10/10/17 0200 10/09/17 0740 10/09/17 0003 10/08/17 1710 10/08/17 1135 NA -- -- -- -- -- -- -- 139 -- -- -- 143 -- -- -- -- K -- -- -- -- -- -- -- 4.2 -- -- -- 4.7 -- -- -- -- CHLOR -- -- -- -- -- -- -- 100 -- -- -- 100 -- -- -- -- CO2 -- 31* -- 30* -- 29 < > 26 < > -- < > 26 < > -- < > -- BUN -- -- -- -- -- -- -- 27* -- -- -- 21 -- -- -- -- CREAT -- -- -- -- -- -- -- 2.18* -- -- -- 2.16* -- -- -- -- GLUC -- -- -- -- -- -- -- 131* -- -- -- 191* -- -- -- -- IC -- 1.07* 1.10 1.11 < > 1.13 < > -- < > -- < > -- < > -- < > -- CA -- -- -- -- -- -- -- 7.6* -- -- -- 8.8 -- -- -- -- WBC 12.49* -- -- -- -- -- -- 13.13* -- 11.20* -- 10.38 -- 9.26 -- 6.86 HB 11.2* -- -- -- -- -- -- 10.9* -- 10.3* -- 9.8* -- 9.8* -- 9.2* HCT 34.3* -- -- -- -- -- -- 31.8* -- 29.7* -- 28.5* -- 27.6* -- 25.9* PLT 108* -- -- -- -- -- -- 96* -- 99* -- 147* -- 188 -- 158 INR -- -- -- -- -- -- -- -- -- 1.2 -- -- -- 1.2 -- 1.2 APTT -- -- -- -- -- -- -- -- -- 39.2* -- -- -- 31.3 -- 32.3 < > = values in this interval not displayed. Cardiac Enzymes Recent Labs 03/14/18 0003 TROPT 1.770* usCRP Most recent labs and imaging results. STROKE CARE PATH CURRY METRICS Date Patient Last Known Well: 10/10/17 Time Patient Last Known Well: 1700 [place] Coma Scale Totals (Calculated): 8 STROKE 9 CARE AND PREVENTION CHECKLIST 1. 2. 3. 4. 5. 6. 7. 8. 9. Stroke Care and Prevention (personally reviewed by Niurka Freedman DO): PROBLEM LIST: Principal Problem: Dissection of thoracic aorta (HCC) POA: Unknown Active Problems: Aortic dissection (HCC) POA: Yes Asthma POA: Yes Atelectasis POA: Unknown Hypoxia POA: Unknown Postoperative hypotension POA: Unknown Pain, postoperative, acute POA: Unknown Lactic acid acidosis POA: Unknown Coagulopathy (HCC) POA: Unknown Acute blood loss anemia POA: Unknown Acute kidney injury (HCC) POA: Unknown Cardiac insufficiency (HCC) POA: Unknown Resolved Problems: * No resolved hospital problems. * Impression/Recommendations Jose Gustafson is a 52yo male w/ hx of htn who is POD3 for total arch repair c/b bleeding, hypotension and chest closure failure. 2clot called for L sided weakness w/ LKW 1700 on 10/10/17. iNIHSS 25. CTH w/ hypodensity in RMCA distribution. ? Given dense L sided weakness and complicated surgical and clinical course it is likely patient experienced embolic infarct vs dissection into R carotid (given recent tear involving innominate). Given medical instability at this time, he is unable to obtain CTA H AND N. Risk Factors Hypertension Recent surgery c/b bleeding and hypotension Stroke Mechanism PLAN - Imaging - Carotid US and Trancranial doppler - Repeat CTH in 24hrs - When able, obtain MRI Brain wo contrast and MRA brain wo contrast MRA Carotid w/wo w - Labs: - Obtain Hemoglobin A1c and Lipid Panel IV tPA was not recommended to be given to the patient, refer to Exclusion Criteria as documented in Stroke Care Path. Imaging Ordered Today: CT Brain Attack ordered for neuro deficit < 8 hours of symptom onset. SIGNATURE: Niurka Freedman DO PATIENT NAME: Jose Gustafson DATE: October 11, 2017 TIME: 1:18 AM PAGER/CONTACT #: [phone] Senior Resident Addendum I have seen and evaluated the patient with the resident. I have personally reviewed the history and medical record. Please refer to the note above, which I have directly edited. Lc Landis MD October 11, 2017 2:39 AM [facility] STAFF PHYSICIAN NOTE OF PERSONAL INVOLVEMENT IN CARE I have reviewed the consult note obtained and documented by the resident and I personally participated in the curry components. I have discussed the case and management of the patient's care. The following comments revise or confirm relevant curry components of their note. Patient is critically ill from both cardiac and neurologic conditions at this time Patient is intubated and sedated CT Head shows large right MCA infarct with associated krys effect Given infarct volume and limited room to swell, patient is at high risk for malignant cerebral edema Case discussed with Dr. Mckenzie Consult neurosurgery regarding possible hemicraniectomy, if cardiac and hemodynamic stability improves Consult neuro critical care service regarding management of malignant cerebral edema Unfortunately, patient is not medically stable to tolerate hemicraniectomy at this time. Serial exams and close observation are indicated to evaluate for progression of malignant cerebral edema. We will be hopeful that his cardiac and hemodynamic status improves, so that in the event that he requires hemicraniectomy, he would be able to tolerate this procedure. Repeat CT head without contrast in a.m. 10/12/2017 Lengthy discussion with patient's and daughter regarding neurological condition; all questions answered. We met with the patient, available family, nursing, and unit care team at the bedside. We discussed the ongoing evaluation and management of the patient in a collaborative fashion. We educated the patient and family on stroke risk factors, and continued evaluation and management of their medical problems. All questions were answered. SIGNATURE: Sher Stinson DO PAGER: [phone] DATE of SERVICE: 10/11/2017 TIME of SERVICE: 4 PM Previous Version YUNI Fitzgerald, CT 10/11/2017 5:05 AM Signed Radiology Service Progress Note PATIENT NAME: Jose Gustafson DATE OF SERVICE: October 11, 2017 TIME: 5:05 AM PATIENT IDENTITY VERIFICATION COMPLETED USING TWO (2) METHODS: Patient confirmed name verbally and ID band matches.. PATIENT GENDER DATA: Male PATIENT RELEVANT IMPLANT DATA REVIEWED: Yes RADIOLOGY DEPARTMENT: CT; Exam(s) Completed: Brain PERIPHERAL IV DATA: Not applicable SIGNED BY: YUNI Fitzgerald October 11, 2017 5:05 AM Evan Dunn MD 10/11/2017 5:50 AM Signed CTA Progress note Patient noted earlier to not be moving left arm or leg, while clearly following commands with the right arm and leg. Pupils equal and reactive. 2-clot called immediately, and bedside emergent CT brain performed. CT showed new CVA, no indication for neurosurgery consult per neurology team evaluating CT and patient. CTS fellow spoke with Dr. Mckenzie--patient not a candidate for CTA brain currently. Attempted to reach patient's unsuccessfully. Repeat CT brain, carotid ultrasound, TCD ordered as per neurology recommendations. Spoke with neurosurgery resident management consultant and discussed case--they will leave to neurology whether neurosurgery needs to consult on patient. MD Ayaka Jaramillo LSW 10/11/2017 1:29 PM Addendum CARE MANAGEMENT PROGRESS NOTE SERVICE DATE: 10/11/2017 SERVICE TIME: 9:55 AM LOS: 4 days Needs Prior to Discharge: To Be Determined Pt is a 52 year old male from [place], [place] who remains in the CVICU s/p the followin10/08/2017 Total arch replacement with FET under DHCA 10/08/2017 Chest exploration / Evacuation of hematoma / Open chest with wound vac Pt remains intubated and sedated. According to the EMR, it was noted earlier today that pt was not moving his left arm or leg, while clearly following commands with the right arm and leg. Emergent CT brain performed. CT showed new CVA. Pt was living independently with his spouse, Dana, prior to this admission. Discharge needs TBD at this time. CM will continue to follow medical course and plan discharge accordingly. ADDENDUM: SERVICE TIME: 12:00 PM Sw was asked by Monie Crenshaw, Nurse Coordinator, to see family as pt's spouse informed pt's mother that he had a stroke and she was very upset. The Nurse Coordinators were able to get the J6 conference room for the family. Sw introduced self and stated that this sw is available for emotional support. The family expressed appreciation for this sw's visit, but appeared to want time with just family. Sw will continue to follow for emotional support. SIGNATURE: SCARLETT Qiu PATIENT NAME: Jose Gustafson DATE: October 11, 2017 TIME: 9:55 AM PAGER/CONTACT #: [phone] Previous Version Josh Damon MD 10/11/2017 10:40 AM Signed POST ANESTHESIA EVALUATION NOTE SERVICE DATE: 10/11/2017 SERVICE TIME: 1039 : 1965 Vitals: 10/10/17 0009 10/10/17 1930 10/10/17 2330 10/11/17 0330 Temp: 38.2 ?C (100.8 ?F) 37.7 ?C (99.9 ?F) 37.9 ?C (100.2 ?F) 36.7 ?C (98.1 ?F) 10/11/17 0920 10/11/17 0940 10/11/17 1000 10/11/17 1020 Arterial BP 1: 129/72 114/63 134/75 130/73 BP: 10/11/17 0920 10/11/17 0940 10/11/17 1000 10/11/17 1020 Pulse: 89 89 89 89 10/11/17 0031 10/11/17 0352 10/11/17 0730 10/11/17 0909 Resp: 20 20 20 20 10/11/17 0920 10/11/17 0940 10/11/17 1000 10/11/17 1020 SpO2: 98% 98% 98% 97% Validated Vital Signs: Yes POST ANES STATUS: PACU/ICU Patient Condition: Guarded Neurological Status: On intravenous sedation. Pulmonary Status: On invasive mechanical ventilation. Airway Control: Intubated on mechanical ventilation. Cardiovascular Status: Guarded, On vasopressor and On inotropes Pain: Adequately controlled Postoperative Nausea/Vomiting: No significant post operative nausea or vomiting Postoperative Hydration Status: Adequate. Anesthetic Complications: None Recommendation: Continue current plan of care Other Remarks: SIGNATURE: Josh Damon MD PATIENT NAME: Jose Gustafson DATE: October 11, 2017 TIME: 10:39 AM PAGER/CONTACT #: [phone] JOSE DAVID MACKAY MD 10/11/2017 11:12 AM Signed [facility] Note Name: Jose Gustafson COORDINATION OF CARE NOTE: Indication for Surgery: Spontaneous Rupture of Aorta LVEF: Normal RVF: Normal Important/Relevant PMH/PSH: HTN, asthma, hx kidney stones Preoperative Hospital Course (narrative): 52 yo M with PMH HTN, Asthma, and hx of kidney stones who is transferred to [facility] for 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 Procedure/Surgeries: 10/08/2017 Total arch replacement with FET under DHCA 10/08/2017 Chest exploration / Evacuation of hematoma / Open chest with wound vac 10/10/2017 Chest opened with wound VAC placement (Attempt closure, but fail due to desaturation.) Airway Difficulty: Grade I - No special instrumentation OR Course: Transient or mild hypotension and Coagulopathy/bleeding Pacing wires: Yes: Ventricular: When discontinuing pacing wires: Cut all pacing wires Postoperative Course/General Impression: (narrative or log of major events with date of onset): Arrived to CVICU intubated, and sedated, on iVeletri, open chest, maintain overnight, plan to go back to OR later today for possible closure. Coagulopathy/bleeding intraop, transfused multiple blood products in OR, transfuse postop as needed. Hypotensive intraop, arrived on 4mcg Levo and 0.02 Vaso. The patient continued to bleed overnight and went back to the OR the following morning and large amount of clots were removed but no active bleeding. Issues to communicate at signout: 10/11/2017 OPEN CHEST - s/p chest exploration Improved hemodynamics Titrate NE/Vaso for MAP > 65 Diuresis New RT sided MCA CVA October 11, 2017 Patient with new cva overnight, mca on right with some mass effect--contact neurology this am for follow up, and follow up on carotids and tcd results with neurology OTHER PROBLEMS I MANAGED DURING THIS ENCOUNTER: Problem Dissection of Thoracic Aorta (Hcc) Patient with chest pain at OSH CT chest showing type a dissection 10/08/2017 s/p Total arch replacement with FET under [facility]CA A/P: Arrived to CVICU with open chest due to bleeding intraop. S/p chest washout this am. 10/10 Chest open, possible washout / closure today 10/11 Chest washout but not closed - did nottolerate Cont current management - diuresis to improve fluid balance Hypoxia 10/08/2017 PEEP therapy, wean FiO2. 10/09 On vent with 50% FIO2 - cont with open chest 10/10 40%, +10 PEEP - cont vent with open chest 10/11 Desat in OR yesterday - now on 50%, 14 PEEP - wean as tolerated Postoperative Hypotension A/P: Arrived to CVICU on 4mcg Levo and 0.02 Vaso, wean as able to goal MAP 65-75. 10/09 Increased support with epi, levo, vaso, phenyl -wean as able for MAP > 65 10/10 Increased support with epi, levo, vaso, phenyl -wean as able for MAP > 65 Continue current plan but keep MAP at 80 for neuro protection Pain, Postoperative, Acute A/P: Fentanyl infusion while intubated with open chest for pain control. - adequate Lactic Acid Acidosis Volume resuscitation. 10/09 Lactate mildly elevated, following - has been adeq vol resuscitated - wean pressors as tolerated 10/10 Remains borderline, KUB non-specific, abd soft and nontender, nondistended. Wean drips as able 10/11 Improved overnight, continue to wean drips Stroke (Cerebrum) (Hcc) Pt with Rt MCA stroke - Identified with L sided weakness overnight. Neuro following - Repeat Head CT today - Keep MAP 80-90 for neuro protection Awaiting further Neuro follow-up Cardiac Insufficiency (Hcc) 10/10 Cont with marginal CO / CI on epi, levo vaso AND juana. SVO2 in mid 50's Cont to support and wean drips as tolerated 10/11 Improved CI and hemodynamics after chest washout - cont to wean drips as able Keep CI > 2.2 and MAP ~ 80 for CVA Acute Kidney Injury (Hcc) Cr elevated from baseline of .89 to 2.16 now 2.18 Will diurese as tolerated due to significant fluid overload Follow Cr and lytes 10/11 Improved to 1.95 and tolerating diuresis - continue PHYSICAL EXAM AND PERTINENT DATA: Neuro: Sedation and positive findings: left sided weakness with R MCA CVA Pain Control : Is pain control adequate: Yes Cardiovascular: Rhythm: paced HR: 90 SpO2: 98 Temperature: afebrile MAP: 95 mmHg CVP: 13 mmHg PAP: 29/15 mmHg Cardiac Index: 5.6 L/min/m2 Recent Labs 10/09/17 0003 TROPT 1.770* Pulmonary: Clear to auscultation and Breath sounds equal Ventilator: Intubated: PCV; FiO2: 50; PEEP: 14 cmH2O; Not ready for weaning; HOB elevated 40 degrees: Yes; Oral care with chlorhexidine: Yes; Was sedation turned off? Yes Recent Labs 10/11/17 1100 10/11/17 0851 10/11/17 0620 PH 7.45 7.39 7.43 PO2 129* 145* 123* PCO2 42 46 43 HCO3 29* 27* 28* O2HB 98 97 97 CXR Findings: Increased Vascular Markings Bilateral, CXR personally viewed and interpreted by ICU staff Physician and small rt pnx Gastrointestinal: Abdominal: Soft Recent Labs 10/11/17 0003 10/10/17 0200 10/09/172 TPROT 5.2* 4.6* 4.9* ALB 2.9* 2.8* 2.9* CA 7.9* 7.6* 8.8 ALKPHOS 55 31* 30* TBILI 1.9* 1.2 1.5* AST 257* 358* 160* ALT 345* 309* 123* Heme: Recent Labs 10/11/17 0003 10/10/17 0200 10/09/17 0740 10/08/17 1710 10/08/17 1135 HB 11.2* 10.9* 10.3* < > 9.8* 9.2* HCT 34.3* 31.8* 29.7* < > 27.6* 25.9* PLT 108* 96* 99* < > 188 158 PTSEC -- -- 12.5 -- 12.1 12.2 INR -- -- 1.2 -- 1.2 1.2 APTT -- -- 39.2* -- 31.3 32.3 < > = values in this interval not displayed. Recent Labs 10/11/17210/10/17 0200 10/09/17 0740 WBC 12.49* 13.13* 11.20* Renal: Improving Recent Labs 10/11/17 1057 10/11/17 0858 10/11/17 0624 10/11/17210/10/17 0200 10/09/172 NA -- -- -- -- 137 -- 139 -- 143 K -- -- -- -- 4.4 -- 4.2 -- 4.7 CHLOR -- -- -- -- 97 -- 100 -- 100 CO2 29 26 30* < > 28 < > 26 < > 26 CREAT -- -- -- -- 1.95* -- 2.18* -- 2.16* BUN -- -- -- -- 29* -- 27* -- 21 GLUC -- -- -- -- 114* -- 131* -- 191* CA -- -- -- -- 7.9* -- 7.6* -- 8.8 < > = values in this interval not displayed. DAILY CVICU CHECKLIST VTE Prophylaxis: Pharmacologic No - because bleeding risk VTE Prophylaxis: Mechanical: Yes Line infection prevention: Can CVC, PAC or arterial line be removed: No Continued need for urinary catheter: Yes - clinical indication: Patient post major surgery requiring fluid balance and input and output measurement. This patient has a high probability of sudden, clinically significant deterioration, which requires the highest level of preparedness to intervene urgently. I participated in the decision making and personally managed or directed the management of the following life and organ supporting interventions that required my frequent assessment to treat or prevent imminent deterioration of: Cardiac Insufficiency and Hypotension that I treated with inotropes and vasopressors Hypoxemia / Increased O2 requirements, Respiratory Failure and open chest that I treated with mechanical ventilation, management of FiO2 and PEEP Renal Insufficiency that I treated with diuretics Stroke that I treated with evaluation in progress I discussed the plan of care with the care team and the patient/family I personally spent 45 minutes of critical care time treating the patient. Time devoted to any procedures I billed separately is not included. SIGNATURE: JOSE DAVID MACKAY MD DATE of SERVICE: 10/11/2017 TIME of SERVICE: 11:07 AM STEPHEN MAR 10/11/2017 11:29 AM Signed PHARMACY VANCOMYCIN DOSING NOTE Patient Name: Jose Gustafson Admission Date: 10/07/2017 Date of Consult: 10/11/2017 Time of Consult: 11:26 AM Indication: Source Unknown; empiric Goal Range: 10-20 mcg/mL RECOMMENDATIONS/PLAN: Pharmacy consulted for vancomycin dosing for Jose Gustafson, a 52 year old, male who is being treated with vancomycin for empiric coverage/open chest 1. Patient is currently ordered Vancomycin dosed by level. Today is day 4 of therapy. 2. The most recent vancomycin level was 10.9 mcg/mL drawn at 08:28 on 10/11. This is a 36 hour level on the 4 day of therapy. 3. Will schedule vancomycin to 1.25 g with a dosing interval of q24h based on previous weight of 85 kg 4. The next vancomycin level will be ordered for 10/16 unless clinically indicated sooner. (Pharmacy will order) We will follow patient renal function, vancomycin levels and doses with you during the course of therapy. Additional recommendations will appear in follow up notes. If you have any questions, please contact PANCHO CORNELIUS PHARMACIST at pager [phone]. Age: [age] year old Allergies: ALLERGIES Allergen Reactions - Cats - Grass Pollen Itching Last 3 Encounter Wt Readings: Date: Wt: 10/07/2017 98.4 kg (216 lb 14.9 oz) 09/07/2017 84.6 kg (186 lb 6.4 oz) 08/24/2017 83.5 kg (184 lb) Last 1 Encounter Ht Readings: Date: Ht: 10/07/2017 182.9 cm (6') CrCl: 50-60 mL/min Temp (24hrs), Av.4 ?C (99.4 ?F), Min:36.7 ?C (98.1 ?F), Max:37.9 ?C (100.2 ?F) - Current Temp: 36.7 ?C (98.1 ?F) Labs BUN (mg/dL) Date Value 10/11/2017 29 (H) 10/10/2017 27 (H) 10/09/2017 21 Creatinine (mg/dL) Date Value 10/11/2017 1.95 (H) 10/10/2017 2.18 (H) 10/09/2017 2.16 (H) WBC (k/uL) Date Value 10/11/2017 12.49 (H) 10/10/2017 13.13 (H) 10/09/2017 11.20 (H) Vancomycin Levels: Vancomycin, result (ug/mL) Date Value 10/11/2017 10.9 10/09/2017 13.6 PANCHO CORNELIUS, PHARMACIST Chaplain Levy Chaplain 10/11/2017 1:26 PM Signed SPIRITUALCARE Spiritual Care Visit- Brief Note Name: Jose Gustafson Date: October 11, 2017 Notes: Introductory spiritual care visit. Patient had a stroke and is not moving his left side. Spoke to patient's and daughter at bedside informing them of bottomer operator availability. Patient's stated, It's ok. We will get through this. Informed patient's family of weekend bottomer operator availability. [facility] Nurse Signature: Chaplain Florentino M.Div., [facility] To contact the Spiritual Care Department: Please call [phone] or Page the On-Call [facility] Nurse at pager [phone] Thank you for the opportunity to be of service. This is an electronically created document. IF PRINTED, PLEASE DO NOT REMOVE FROM THE CHART OR MODIFY PRINTED COPY. Florence Sharif MD 10/12/2017 9:34 AM Addendum NEUROSURGERY CONSULT HISTORY AND PHYSICAL EXAMINATION PLEASE DO NOT REMOVE FROM THE CHART OR MODIFY PRINTED COPY Patient Name: Jose Gustafson CONSULTED BY: Stroke Neurology CONSULTED FOR: Consideration of hemicraniectomy CHIEF COMPLAINT: L plegia HPI: 52 year old male with PMH significant for HTN, admitted on 10/07/17 with chest pain and found to have type A aortic dissection from mid arch to descending aorta, s/p total arch replacement 10/07/17 c/b hypotension, bleeding, unable to close chest at end of surgery. Subsequently s/p reoperation on 10/08/17 and 10/10/17 for chest exploration, washout, wound vac x 2. Patient is critically ill on multiple pressors. LKW 10/10/17 1700, 2CLOT was called after patient found not be moving LUE/LLE to command or stim. CTH shows left MCA stroke sparing the deep structures with possible thrombus at the MCA bifurcation. Patient receiving ASA 162 daily, is on vancomycin/ciprofloxacin, multiple drips including amiodarone, epinephrine, norepinephrine, phenylephrine, vasopressin, and epoprostenol inhalation. Anti-platelets/anti-coagulants: ASA 81 mg PAST MEDICAL HISTORY: PAST MEDICAL HISTORY Diagnosis Date - Acute kidney injury (HCC) 10/09/2017 - History of kidney stones - Hypertension - Stroke (cerebrum) (HCC) 10/11/2017 - Unspecified asthma(493.90) PAST SURGICAL HISTORY: PAST SURGICAL HISTORY Procedure Laterality Date - COLONOSCOP W/ OR W/O BRSH SPEC 08/23/2014 Colonoscopy - LITHOTRIPSY EXTRACORP SHOCK WAVE(ESWL) 18 months ago - PAST SURGICAL HISTORY OF 2013 left ankle ORIF- hardware - PAST SURGICAL HISTORY OF 2013 ORIF left wrist - hardware - REMOVAL OF HEEL SPUR 2002, 2004 Bilateral - REPAIR ING HERNIA,5+Y/O,REDUCIBL Hernia repair, inguinal, as infant FAMILY HISTORY: FAMILY HISTORY Problem Relation Age of Onset - Stroke Father age 48 of CVA - Asthma Paternal Grandfather SOCIAL HISTORY: Social History Marital status: Spouse name: Years of education: Number of children: Social History Main Topics Smoking status: Light Tobacco Smoker Packs/day: 0.00 Years: 0.00 Types: Cigars Smokeless status: Never Used Alcohol use: Yes 6.0 oz/week 4 Cans of Beer (12oz) per week Drug use: No Sexual activity: Yes Partners with: Female MEDICATIONS: cetirizine-pseudoephedrine (ZYRTEC-D) 5-120 mg per tablet Take 1 tablet by mouth twice daily as needed. fluticasone (FLONASE) 50 mcg/actuation nasal spray Use 1 [place] in each nostril once daily. Lactobacillus acidophilus (FLORAJEN) 460 mg (20 billion cell) cap Take 1 capsule by mouth once daily. fluticasone-vilanterol (BREO ELLIPTA) 200-25 mcg/dose inhaler Inhale 1 Inhalation as instructed once daily. Inhale one puff once daily. DO NOT CLICK OPEN UNTIL READY FOR DOSE lisinopril (ZESTRIL, PRINIVIL) 5 mg tablet Take 1 tablet by mouth once daily. Current hospital medications: vancomycin 1.25 g in D5W 250 mL (VANCOCIN) 1.25 g INTRAVENOUS q 24 HR furosemide 500 mg in empty bottle 50 mL IV infusion (LASIX) 10 mg/hr INTRAVENOUS CONTINUOUS epoprostenol INHALATION 30,000 ng/mL in 0.9% NaCl 50 mL (VELETRI) 0.01-0.05 mcg/kg/min (Cashion) INHALATION CONTINUOUS PHENYLephrine 80 mg in D5W 250 mL (NEOSYNEPHRINE) 25-200 mcg/min INTRAVENOUS CONTINUOUS Chlorhexidine Gluconate 0.12 % 15 mL (PERIDEX) 15 mL ORAL q [address] 20 mg tab(s) (PROTONIX) 20 mg ORAL DAILY (6 AM) pantoprazole 20 mg CUP (PROTONIX) 20 mg ORAL/FEEDING TUBE DAILY (6 AM) senna-docusate 8.6-50 mg 1 tablet (SENNA-S) 1 tablet ORAL BID bisacodyl 10 mg suppository (DULCOLAX) 10 mg RECTAL DAILY PRN ondansetron (PF) 4 mg injection (ZOFRAN) 4 mg INTRAVENOUS q 6 H PRN potassium chloride iv piggyback 10 mEq/100mL 10 mEq INTRAVENOUS PRN potassium chloride iv piggyback 20 mEq/50 mL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 (6') Wt 100.3 kg (221 lb 1.9 oz) SpO2 93% BMI 29.99 kg/m2 GENERAL: Intubated and sedated HEENT: Normocephalic/atraumatic RESPIRATORY: Intubated CARDIOVASCULAR: NRRR, open chest w/ wound vac NEUROLOGICAL: LOC: 3 - reflex responses or unarousable 3 LOC Questions: 2 - none correct 2 LOC Commands: 2 - neither correct 2 LOC Normal Gaze: 0 - normal gaze 0 Visual Helms: 0 - no visual loss 0 Facial Palsy: 0 - normal 0 Motor Left Arm: 4 - no movement at all 4 Motor Right Arm: 3 - no antigravity effort but even minimal movements count 3 Motor Left Le - no movement at all 4 Motor Right Le - no movement at all 4 Limb Ataxia: 0 - no ataxia (or aphasic, hemiplegic) 0 Sensory: 2 - total loss, patient unaware of touch. coma, bilateral loss 2 Language: 3 - mute, global aphasia, coma 3 Dysarthria: X - intubation or mech barrier X Extinction/Neglect: 0 - normal, none detected (or visual loss alone) 0 Total Daily NIHSS: 27 (10/12/17 0544 : Niurka (Res) Handshoe) 27 MENTAL STATUS: Intubated, no response to stim CRANIAL NERVES: Primary gaze, face appear symmetric, corneals intact. Pupils ~ 2mm and reactive, No cough, no gag MOTOR: Localizes w/ RUE only, minimal movement in RLE 1/5. No movement in LUE or LLE SENSATION: Localizes to pain in RUE DATA: Diagnostic tests reviewed for today's visit: Lipids, HbA1c, CMP, CBC, Coags Recent Labs 10/12/17 0456 10/12/17 0452 10/12/17 0430 10/12/17 0216 10/12/17 0100 10/11/17 1940 10/11/17 0003 10/10/17 0200 10/09/17 0740 NA -- -- -- -- -- -- 137 -- -- -- 137 -- 139 -- -- K -- -- -- -- -- -- 4.4 -- -- -- 4.4 -- 4.2 -- -- CHLOR -- -- -- -- -- -- 96* -- -- -- 97 -- 100 -- -- CO2 -- 32* 33* -- 33* -- 28 < > -- < > 28 < > 26 < > -- BUN -- -- -- -- -- -- 30* -- -- -- 29* -- 27* -- -- CREAT -- -- -- -- -- -- 1.63* -- -- -- 1.95* -- 2.18* -- -- GLUC -- -- -- -- -- -- 109* -- -- -- 114* -- 131* -- -- IC 1.07* 1.08 1.06* < > 1.05* < > -- < > -- < > -- < > -- < > -- CA -- -- -- -- -- -- 7.9* -- -- -- 7.9* -- 7.6* -- -- WBC -- -- -- -- -- -- 12.49* -- -- -- 12.49* -- 13.13* -- 11.20* HB -- -- -- -- -- -- 11.2* -- -- -- 11.2* -- 10.9* -- 10.3* HCT -- -- -- -- -- -- 33.6* -- -- -- 34.3* -- 31.8* -- 29.7* PLT -- -- -- -- -- -- 103* -- -- -- 108* -- 96* -- 99* INR -- -- -- -- -- -- -- -- 1.2 -- -- -- -- -- 1.2 APTT -- -- -- -- -- -- -- -- 36.1* -- -- -- -- -- 39.2* < > = values in this interval not displayed. Cardiac Enzymes Most recent labs and imaging results. MEDICAL EVENTS: No medical events have been recorded. STROKE 9 CARE AND PREVENTION CHECKLIST 1. Is the patient currently on an ANTITHROMBOTIC medication (Antiplatelet or Anticoagulant): Aspirin 2. Does the patient have known AFIB/FLUTTER: No 3. Is the patient on a STATIN: None Reason for no statin: (not a primary patient) 4. Is the patient on VTE prophylaxis: Pharmacological prophylaxis;Mechanical prophylaxis Mechanical intervention type: Intermittent compression stocking(s) 5. GLYCEMIC Control Medications: Not Diabetic 6. Stroke BP Goals: <180/105 Stroke BP Control: BP well controlled 7. 8. TEMPERATURE Control: Normothermic 9. Does the patient need THERAPY: Yes Therapy involvement: PT;OT;ST Stroke Care and Prevention (personally reviewed by Niurka Freedman DO): Daily Rounding Date: 10/12/17 Daily Rounding Time: 9562 PROBLEM LIST: Principal Problem: Dissection of thoracic aorta (HCC) POA: Unknown Active Problems: Aortic dissection (HCC) POA: Yes Asthma POA: Yes Atelectasis POA: Unknown Hypoxia POA: Unknown Postoperative hypotension POA: Unknown Pain, postoperative, acute POA: Unknown Lactic acid acidosis POA: Unknown Coagulopathy (HCC) POA: Unknown Acute blood loss anemia POA: Unknown Acute kidney injury (HCC) POA: Unknown Cardiac insufficiency (HCC) POA: Unknown Stroke (cerebrum) (HCC) POA: Unknown Cerebral edema (HCC) POA: Unknown Resolved Problems: * No resolved hospital problems. 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 Pt maintained on multiple pressors. 2clot called for L sided weakness w/ LKW 1700 on 10/10/17. iNIHSS 25. CTH w/ hypodensity in RMCA distribution. Stroke Mechanism Stroke Mechanism - LIP ENTRY ONLY Ischemic Stroke or TIA: Ischemic Stroke TOAST Mechanism ([facility]-MODIFIED): Stroke of Other Determined Etiology Stroke of Other Determined Etiology: Dissection Total Daily NIHSS: 27 PLAN # RMCA Ischemic Stroke - Etiology likely embolic 2/2 to dissection - [facility] 1600 10/11: Unchanged RMCA stroke w/ assoc mass effect - TCD w/ asymmetry in mean flow velocities within the bilateral MCAs with right being significantly lower than left. - Carotid Duplex: 0-19% stenosis b/l Plan - Cont ASA - Permissive hypertension as able per CTS service # Malignant Cerebral Edema Repeat CTH at 0141 10/12/17 w/ Worsening mass effect w/ increase in uncal and subfalcine herniation compared to previous scan - Na goal of 145-155 - Na q4h per NICU - Neuro checks q1h - Con 3% NS 75ml/hr per NICU recs - CTH q12h SIGNATURE: Niurka Freedman DO PATIENT NAME: Jose Gustafson DATE: October 12, 2017 TIME: 530 AM PAGER/CONTACT #: [phone] [facility] STAFF PHYSICIAN NOTE OF PERSONAL INVOLVEMENT IN CARE I have reviewed the consult note obtained and documented by the resident and I personally participated in the curry components. I have discussed the case and management of the patient's care. The following comments revise or confirm relevant curry components of the note. Repeat CTH showed progression of malignant MCA infarct with evidence of mass effect and herniation. Pt to be taken to OR for decompression. and daughter at bedside, updated. Case discussed with Dr. Sharif. Jsesica Carter MD [facility] Staff, Vascular Neurology 10/12/2017 2:14 PM Previous Version Florence Sharif MD 10/12/2017 12:35 PM Signed BRIEF OPERATIVE / PROCEDURE NOTE LOG ID: [id number] Surgery/Procedure Date: 10/12/2017 Incision/Procedure Start Time: 11:27 AM Incision Close/Procedure End Time: 1235 Surgeon(s)/Proceduralist(s) and Vise Hand(s): Surgeon(s) and Role: * Florence Sharif - Primary * Power Kathleen - Resident - Assisting Physician Vise Hand: Gordon Cheung (Pa) Procedure(s): Right decompressive hemicraniectomy for R MCA stroke and Malignant cerebral edema Anesthesia: General Findings: Swollen brain - R hemisphere Estimated Blood Loss: 300 mls Specimens: Bone to freezer Complications: None Pre-Op/Pre-Procedure Diagnosis: Above Post-Op/Post-Procedure Diagnosis: * No post-op diagnosis entered * [id number] SIGNATURE: Florence Sharif MD PATIENT NAME: Jose Gustafson DATE: October 12, 2017 TIME: 12:33 PM PAGER/CONTACT #: [phone] Florence Sharif MD 10/14/2017 10:54 AM Signed OPERATIVE/PROCEDURE REPORT LOG ID: [id number] Surgery/Procedure Date: 10/12/2017 Incision/Procedure Start Time: 11:27 AM Incision Close/Procedure End Time: 12:38 PM Surgeon(s)/Proceduralist(s) and Vise Hand(s): Surgeon(s) and Role: * Florence Sharif - Primary * Power Kathleen - Resident - Assisting Procedure(s): Right decompressive hemicraniectomy for R MCA stroke and malignant cerebral edema Anesthesia: General Procedure Details: Prior to induction of anesthesia, an audible huddle was performed confirming site of operation, planned operation, need for antibiotics, and other anticipated needs with surgical, nursing, and anesthesia teams. All agreed to proceed. The patient was positioned supine with a slight right shoulder roll. The surgical region was prepped and draped in the usual sterile fashion. All pressure points were verified to be padded appropriately. Prior to starting the operation the surgical team paused and performed an audible timeout. The surgical, nursing, and anesthesia personnel agreed with the procedure to be performed. Patient's previous scheduled IV anti-biotics were continued. Incision was made using #10 blade scalpel on the right side. Peyton clips were applied to the skin edges as was necessary for hemostasis. Myocutaneous flaps were then elevated with the temporalis muscle undermined to the root of the zygoma and keyhole for maximal bony exposure. Hemostasis was achieved. The intended craniectomy site was then marked with a wax bone pencil. Fossil holes were then placed in strategic places. Bony fragments were freed. The underlying dura was then stripped using a #3 [place]. Using a high speed air drill with guard and footplate, the craniectomy flap was then turned. The flap was carefully stripped of the dura and then passed off the field for storage in a sterile fashion. Hemostasis was achieved. Gelfoam pledgets and bone wax were placed over bony edges for hemostasis. The craniectomy was then extended using Leksel rongeurs inferiorly towards the temporal fossa. At this point, hemostasis was again confirmed and the dura was opened sharply. Using Metzenbaum scissors, the dura was opened in a stellate fashion. The dura was then elevated. The brain at this point was visually inspected. It was markedly tense. A sheet of Gelfilm was soaked and then overlaid on the brain over the dural flaps. Hemostasis was then achieved. Prior to closure, hemostasis was achieved. The wound was copiously irrigated. All retracting devices were removed from the wound. All temporary implants were removed from the wound. A drain was placed. Prior to final closure, surgical count was correct and verified x 2. The wound was closed in the usual fashion. Alvina used to close the skin. The wound was then dressed. At the end of the case, a sign out was performed whereby the anesthesia, surgical, and nursing teams re-confirmed the operation performed, any blood products to be distributed, specimens to be sent, or equipment issues. All parties agreed. Pre-Op/Pre-Procedure Diagnosis: stroke Post-Op/Post-Procedure Diagnosis: stroke Estimated Blood Loss: 300 mls Specimens: * No specimens in log * Implantable Devices: * No implants in log * Drains: x1 Complications: None The primary surgeon/proceduralist performed the entire procedure with resident assistance. SIGNATURE: Power Kathleen MD PATIENT NAME: Jose Gustafson DATE: October 12, 2017 TIME: 1:16 PM PAGER/CONTACT #: Previous Version Jennifer Ayala MD PHD 10/12/2017 3:06 PM Signed POST ANESTHESIA EVALUATION NOTE SERVICE DATE: 10/12/2017 SERVICE TIME: 2:03 PM : 1965 s/p emergency right decompressive hemicraniectomy for R MCA stroke and Malignant cerebral edema Vitals: Validated Vital Signs: HR: 89 Paced; BP: 108/61 mmHg; CVP: 9 mmHg; PA: 27/15 mmHg; RR: 28; SpO2%: 97% (FiO2: 50%); Temperature: 37.6oC POST ANES STATUS: PACU/ICU Patient Condition: Critical Neurological Status: On intravenous sedation. Pulmonary Status: On invasive mechanical ventilation. Airway Control: Intubated on mechanical ventilation. Cardiovascular Status: Guarded, On vasopressor and On inotropes Pain: Adequately controlled Postoperative Nausea/Vomiting: No significant post operative nausea or vomiting Postoperative Hydration Status: Adequate. Anesthetic Complications: None Recommendation: Continue current plan of care and Further care per CTS/ICU/Floor team Other Remarks: SIGNATURE: Jennifer Ayala MD PHD PATIENT NAME: Jose Gustafson DATE: October 12, 2017 TIME: 2:03 PM PAGER/CONTACT #: [phone] Juan Pablo Linda MD 10/12/2017 5:51 PM Signed NEURO ICU - CONSULT NOTE SERVICE DATE: 10/12/2017 SERVICE TIME: 5:27 PM ID: 52 yo M s/p Total Arch replacement after Type A aortic dissection on 10/07 with procedural complications which required further surgeries on 10/08 and 10/10. He was found to have R-MCA ischemic stroke with cerebral edema on CTH on 10/11 after he had sudden onset L sided weakness. Neuro ICU has been following since then for the management of cerebral edema post R MCA ischemic stroke. He has been on hypertonic saline infusion since then to decrease brain edema. Overnight, he got a repeat CTH which showed increased swelling with worsening R to L midline shift. He received 23.4% HTS boluses and his maintenance was switched from 2% to 3% HTS. His last Na was 137. NSGY took him to OR this AM for R sided decompressive hemicrani for R MCA ischemic stroke and cerebral edema. Post op he came back to CVICU. Objective DETAILED REVIEW VITAL SIGNS (last 24hrs min/max): No Data Recorded Pulse Av.8 Min: 77 Max: 89 Arterial BP 1 Min: 97/50 Max: 135/73 Resp Av.9 Min: 20 Max: 30 SpO2 Av.8 % Min: 89 % Max: 99 % CVP Av.8 Min: 3 Max: 15 No Data RecordedNo Data RecordedNo Data RecordedNo Data Recorded Pain Score: 0/10 INTAKE/OUTPUT: Intake/Output Summary (Last 24 hours) at 10/12/17 1727 Last data filed at 10/12/17 1430 Gross per 24 hour Intake 3148 ml Output 6520 ml Net -3372 ml PHYSICAL EXAM AND PERTINENT DATA Neuro: On fentanyl AND propofol infusion Sedation not held for neuro exam as per NSGY recs Couldn't assess motor/sensory/cerebellar fuction Pupils 3-4mm bilat and brisk Absent corneal bilateral No cough/gag. Not breathing over the ventilator. CV: RRR, open midline vertical chest wound with dressing noted Pulm: Intubated Mechanical Ventilation: GI/: soft Current Facility-Administered Medications: sodium chloride 3 % infusion INTRAVENOUS CONTINUOUS levETIRAcetam 750 mg in NaCl 0.9% 100 mL (KEPPRA) 750 mg INTRAVENOUS BID calcium chloride 1 g in D5W 100 mL 1 g INTRAVENOUS ONCE vancomycin 1.25 g in D5W 250 mL (VANCOCIN) 1.25 g INTRAVENOUS q 24 HR furosemide 500 mg in empty bottle 50 mL IV infusion (LASIX) 10 mg/hr INTRAVENOUS CONTINUOUS epoprostenol INHALATION 30,000 ng/mL in 0.9% NaCl 50 mL (VELETRI) 0.01-0.05 mcg/kg/min (Cashion) INHALATION CONTINUOUS PHENYLephrine 80 mg in D5W 250 mL (NEOSYNEPHRINE) 25-200 mcg/min INTRAVENOUS CONTINUOUS Chlorhexidine Gluconate 0.12 % 15 mL (PERIDEX) 15 mL ORAL q [address] 20 mg tab(s) (PROTONIX) 20 mg ORAL DAILY (6 AM) Or pantoprazole 20 mg CUP (PROTONIX) 20 mg ORAL/FEEDING TUBE DAILY (6 AM) senna-docusate 8.6-50 mg 1 tablet (SENNA-S) 1 tablet ORAL BID bisacodyl 10 mg suppository (DULCOLAX) 10 mg RECTAL DAILY PRN ondansetron (PF) 4 mg injection (ZOFRAN) 4 mg INTRAVENOUS q 6 H PRN potassium chloride iv piggyback 10 mEq/100mL 10 mEq INTRAVENOUS PRN Or potassium chloride iv piggyback 20 mEq/50 mL 20 mEq INTRAVENOUS PRN Or potassium chloride 40-120 mEq oral powder (KLOR-CON) 40-120 mEq ORAL/FEEDING TUBE PRN 0.9% NaCl 3-5 mL 3-5 mL INTRAVENOUS q 12 H 0.9% NaCl 10 mL 10 mL INTRAVENOUS q 12 H insulin regular human iv bolus 2-10 Units 2-10 Units INTRAVENOUS PRN And insulin regular 250 units in NaCl 0.9% 250 mL iv infusion - HVI CVICU NOMOGRAM 0.5-40 Units/hr INTRAVENOUS CONTINUOUS dextrose 50% in water 25 mL syringe 12.5 g INTRAVENOUS PRN dextrose 5% in NaCl 0.2% iv infusion 5 mL/hr INTRAVENOUS CONTINUOUS insulin glargine 0-40 Units pen (long acting) (LANTUS SOLOSTAR, BASAGLAR) 0-40 Units SUBCUTANEOUS As Directed nitroglycerin 50 mg in D5W 250 mL 5-200 mcg/min INTRAVENOUS CONTINUOUS nitroglycerin injection 100 mcg injection syringe 100 mcg INTRAVENOUS PRN PHENYLephrine 0.1 mg injection 100 mcg INTRAVENOUS PRN fentaNYL [employer]ENT 20 mcg/mL in NaCl 0.9% 100 mL INTRAVENOUS CONTINUOUS And naloxone 0.04 mg injection (NARCAN) 0.04 mg INTRAVENOUS PRN lidocaine 5 % 1 Patch (LIDODERM) 1 Patch TRANSDERMAL DAILY And lidocaine patch - REMOVE OTHER AT BEDTIME And lidocaine - VERIFY PATCH OTHER q 8 H fentaNYL 50 mcg/mL 25-75 mcg injection (SUBLIMAZE) 25-75 mcg INTRAVENOUS q 1 H PRN acetaminophen 650 mg tab(s) (TYLENOL) 650 mg ORAL/FEEDING TUBE q 4 H PRN oxyCODONE IR 5-10 mg tab(s) (ROXICODONE) 5-10 mg ORAL/FEEDING TUBE q 6 H PRN propofol infusion (DIPRIVAN) 10-50 mcg/kg/min (Order-Specific) INTRAVENOUS CONTINUOUS propofol iv bolus 10-50 mg (DIPRIVAN) 10-50 mg INTRAVENOUS q 1 H PRN vasopressin 20 units in D5W 100 mL (VASOSTRICT) 0.01-0.1 Units/min INTRAVENOUS CONTINUOUS NORepinephrine 4 mg in D5W 250 mL (LEVOPHED) 0.6-20 mcg/min INTRAVENOUS CONTINUOUS fentaNYL iv infusion 20 mcg/mL in NaCl 0.9% 100 mL 25-250 mcg/hr INTRAVENOUS CONTINUOUS ciprofloxacin 400 mg in D5W 200 mL (CIPRO) 400 mg INTRAVENOUS q 12 HR vancomycin dosing and monitoring per pharmacy OTHER As Directed EPINEPHrine iv infusion 4 mg in D5W 250 mL 0.5-4 mcg/min INTRAVENOUS CONTINUOUS albuterol 2.5 mg /3 mL (0.083 %) 2.5 mg (PROVENTIL) 2.5 mg INHALATION QID budesonide 1 mg/2 mL 1 mg nebulizer suspension (PULMICORT) 1 mg INHALATION BID amiodarone 360 mg in D5W 200 mL (NEXTERONE) 0.5-1 mg/min INTRAVENOUS CONTINUOUS Assessment/Plan 52 yo M with typa A dissection s/p total arch replacement and complications, now with R-MCA ischemic stroke s/p R sided decompressive hemicrani on 10/12. Recommendations: -Repeat CT head post procedure as per NSGY -Continue 3%@ 75/hr for cerebral edema for atleast next 24 hrs, target Na 140-150 -NICU will continue to follow. Patient discussed and seen with Staff Physician, Dr. Knox. SIGNATURE: Juan Pablo Linda MD PATIENT NAME: Jose Gustafson DATE: October 12, 2017 TIME: 5:27 PM PAGER/CONTACT #: [phone] Elvira De Los Santos APRN.[employer]OPE SEALER 10/12/2017 6:46 PM Signed [facility] Note Name: Jose Gustafson Coordination of Care Note: Indication for Surgery: Spontaneous Rupture of Aorta LVEF: Normal RVF: Normal Important/Relevant PMH/PSH: HTN, asthma, hx kidney stones Preoperative Hospital Course (narrative): 52 yo M with PMH HTN, Asthma, and hx of kidney stones who is transferred to [facility] for 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 Procedure/Surgeries: 10/08/2017 Total arch replacement with FET under DHCA 10/08/2017 Chest exploration / Evacuation of hematoma / Open chest with wound vac 10/10/2017 Chest opened with wound VAC placement (Attempt closure, but fail due to desaturation) 10/12/2017 - Right decompressive hemicraniectomy for R MCA stroke and malignant cerebral edema Airway Difficulty: Grade I - No special instrumentation OR Course: Transient or mild hypotension and Coagulopathy/bleeding Pacing wires: Yes: Ventricular: When discontinuing pacing wires: Cut all pacing wires Postoperative Course/General Impression: (narrative or log of major events with date of onset): Arrived on iVeletri, open chest, maintain overnight, plan to go back to OR later today for possible closure. Coagulopathy/bleeding intraop, transfused multiple blood products in OR, transfuse postop as needed. Hypotensive intraop, arrived on 4mcg Levo and 0.02 Vaso. The patient continued to bleed overnight and went back to the OR the following morning and large amount of clots were removed but no active bleeding. Patient with new cva overnight, mca on right with some mass effect--contact neurology this am for follow up, and follow up on carotids and tcd results with neurology Issues to communicate at signout: OPEN CHEST - s/p chest exploration Hypoxia - Hypotension - Titrate NE/Vaso for MAP > 65 New RT sided MCA CVA s/p right hemicraniectomy: Continue 3%@ 75/hr for cerebral edema, target Na 140-150 NO ASA, HEPARIN Other Problems I Reviewed and/or Managed During This Encounter: Problem Hypoxia A/p - remains hypoxic on increased fio2 AND peep. CXR with atelectasis and increased vascular markings. Remains on epoprostenol. Postoperative Hypotension A/P:Continue current regimen of norepinephrine and vaso but keep MAP at 80 for neuro protection Stroke (Cerebrum) (Hcc) Pt with Rt MCA stroke - Identified with L sided weakness overnight. Neuro following - Repeat Head CT today - Keep MAP 80-90 for neuro protection Awaiting further Neuro follow-up 10/12/2017 - 10/12/2017 - Right decompressive hemicraniectomy for R MCA stroke and malignant cerebral edema PHYSICAL EXAM: Neuro: Sedation Cardiovascular: Rhythm: regular rate and rhythm and Rate:normal sinus rhythm, paced Pulmonary: Clear to auscultation and Breath sounds equal Ventilator: Intubated: PCV; FiO2: 50; PEEP: 14 cmH2O; Not ready for weaning; HOB elevated 40 degrees: Yes; Oral care with chlorhexidine: Yes; Was sedation turned off? No: Why? Contraindicated because patient is unstable; chest is open s/p hemicraniectomy CXR Findings: Atelectasis Bilateral, Increased Vascular Markings Bilateral and CXR personally viewed and interpreted by ICU staff Nurse Practitioner Gastrointestinal: Abdominal: Soft DAILY CVICU CHECKLIST VTE Prophylaxis: Pharmacologic No - because bleeding risk and thrombocytopenia VTE Prophylaxis: Mechanical: Yes Line infection prevention: Can CVC, PAC or arterial line be removed: No Continued need for urinary catheter: Yes - clinical indication: Patient post major surgery requiring fluid balance and input and output measurement. Restraints needed: No This patient has a high probability of sudden, clinically significant deterioration, which requires the highest level of preparedness to intervene urgently. I participated in the decision making and personally managed or directed the management of the following life and organ supporting interventions that required my frequent assessment to treat or prevent imminent deterioration of: I personally spent 44 minutes of critical care time treating the patient. Time devoted to any procedures I billed separately is not included. SIGNATURE: Elvira De Los Santos CNP DATE of SERVICE: 10/12/2017 TIME of SERVICE: 6:30 PM Balbir Hayes 10/12/2017 7:07 PM Signed Neurosurgery Progress Note: Jose Gustafson [id number] S: POC O: 10/12/17 0918 10/12/17 0930 10/12/17 0950 10/12/17 1010 BP: Pulse: 89 89 89 89 Resp: 20 Temp: TempSrc: SpO2: 99% 99% 99% 98% Weight: Height: Exam: E1 V1T M1 PERRL + weak corneals + weak cough Flap full, but soft Dressing c/d/i Drain bloody A/P: 52 y/o M s/p: 10/12 decompressive R hemicraniectomy - neuro stable - CTH reviewed - f/u drain output to suction - maintain Na 145-155 - keppra 750 mg bid x 2 weeks - okay to resume ASA 10/13 at 1400 - SQH okay on 10/14 - HOB elevated - okay to continue sedation - rest per primary - will follow Balbir Hayes MD PGY-3, Neurological Surgery Pager # [phone] October 12, 2017 Please page [phone] after 6 PM and on weekends Previous Version Jeremy Harrington MS RD [facility] 10/13/2017 12:16 PM Signed NUTRITION THERAPY INITIAL ASSESSMENT SERVICE DATE: 10/13/2017 SERVICE TIME: 8:23 am RECOMMENDED MALNUTRITION DIAGNOSIS: MODERATE PROTEIN-CALORIE MALNUTRITION In the context of Acute Illness or Injury based on: Insufficient Energy Intake: Less than or equal to 50% for greater than or equal to 5 days Muscle Loss Mild Loss NUTRITION CARE PLAN: Intervention: 1. Enteral support when able - impact peptide @ 60 cc/hr 2. Recommend MVI w/ minerals Monitor and Evaluation: Goal: Meet >75% of estimated needs Discharge Nutrition Recommendations: To be determined Per HPI: 52 yo M pmhx 52 yo M with PMH HTN, Asthma, and hx of kidney stones who is transferred to [facility] for 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 10/08/2017 Total arch replacement with FET under [facility]CA 10/08/2017 Chest exploration / Evacuation of hematoma / Open chest with wound vac 10/10/2017 Chest opened with wound VAC placement (Attempt closure, but fail due to desaturation) 10/12/2017 - Right decompressive hemicraniectomy for R MCA stroke and malignant cerebral edema Interval history: intubated, sedated. On multiple pressors. Open chest. S/p R hemicraniectomy. 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 Unable to assess ANTHROPOMETRICS Height: 182.9 cm (6') Admission Weight: 85 kg (187 lb 6.3 oz) Current Weight: 91.4 kg (201 lb 8 oz) BMI 29.9 based on dry weight Weight hx: per epic, wt ~190s with minor fluctuations the last year. Admitted at 187#, 85 kg IBW: 80.9 kg Dosing wt: 85 kg Estimated kilocalorie needs: 0496-9200 kilocalories determined by 20-25 kcal/kg Estimated protein needs: 110-144 grams determined by 1.3-1.7 g/kg Dosing weight NUTRITION FOCUSED PHYSICAL EXAM: Subcutaneous Fat Loss Orbital Mild Triceps Unable to determine at this time Mid-axillary at the iliac crest Unable to determine at this time Muscle Loss Locations: Temporalis Mild Pectoralis Mild Deltoids No muscle loss Interosseous Unable to determine at this time Latissimus dorsi, trapezius Unable to determine at this time Quadriceps Mild Gastrocnemius Mild Potential micronutrient deficiency revealed in: Unable to determine at this time Edema: Yes Generalized Ascites: No Assessment of Functional Status: Functional capacity is unrelated to nutrition status Temperature Max in 24 hours: No data recorded. BP 152/83 Pulse 89 Temp 36.7 ?C (98.1 ?F) (Core) Resp 30 Ht 182.9 cm (6') Wt 91.4 kg (201 lb 8 oz) SpO2 98% BMI 27.33 kg/m2 Recent Labs 10/13/17 0557 10/13/17 0007 GLUC -- -- 108* BUN -- -- 33* CREAT -- -- 1.71* NA -- -- 148* K -- -- 3.9 CHLOR -- -- 110* CO2 28 < > 28 ALB -- -- 3.1* HB -- -- 8.7* HCT -- -- 27.0* WBC -- -- 8.80 < > = values in this interval not displayed. Potential Signs of Inflammation: hypoalbuminemia, imaging studies and clinical condition (multiple operations this week, open chest, s/p hemicraniectomy) Pertinent meds: epi, velitri, fentanyl, lasix, levo, vaso, protonix, phenylephrine, senna ALLERGIES Allergen Reactions - Cats - Grass Pollen Itching Pressure Injury 10/08/17 1121 Lip - Lower (Active) Main [facility] Units Operating Room 10/10/2017 9:00 AM Stage Injury Mucous Membrane 10/13/2017 7:00 AM Surgical Incision 10/07/17 Chest - Midsternal (Active) Dressing Status Intact 10/13/2017 7:00 AM Surgical Incision 10/12/17 1451 Head (Active) Dressing Status Initial Post-Op Dressing Intact 10/13/2017 7:00 AM MNT Billing Type: Initial Assess/15 min 4 units SIGNATURE: Jeremy Harrington, MS RD [facility] PATIENT NAME: Jose Gustafson DATE: October 13, 2017 TIME: 8:22 AM PAGER: [phone] Balbir Hayes 10/13/2017 11:40 AM Signed Neurosurgery Progress Note: Jose Gustafson [id number] S: No acute events overnight O: 10/13/17 1030 10/13/17 1050 10/13/17 1110 10/13/17 1130 BP: Pulse: 89 89 89 89 Resp: Temp: TempSrc: SpO2: 97% 98% 97% 97% Weight: Height: Exam: E1 V1T M1 PERRL + weak corneals + weak cough Flap full, but soft Dressing c/d/i Drain bloody A/P: 52 y/o M s/p: 10/12 decompressive R hemicraniectomy - neuro stable - f/u drain output to suction - maintain Na 145-155 - keppra 750 mg bid x 2 weeks - okay to resume ASA 10/13 today - SQH okay on 10/14 - HOB elevated - okay to continue sedation - rest per primary - will follow Balbir Hayes MD PGY-3, Neurological Surgery Pager # [phone] October 13, 2017 Please page [phone] after 6 PM and on weekends Elvira De Los Santos APRN.[employer] 10/13/2017 12:39 PM Signed [facility] Note Name: Jose Gustafson Coordination of Care Note: Indication for Surgery: Spontaneous Rupture of Aorta LVEF: Normal RVF: Normal Important/Relevant PMH/PSH: HTN, asthma, hx kidney stones Preoperative Hospital Course (narrative): 52 yo M with PMH HTN, Asthma, and hx of kidney stones who is transferred to [facility] for 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 Hypotension, cardiac insufficiency on norepinephrine, vasopressin, and epoprostenol. Returned to OR 10/08 for exploration and large amount of clots were removed but no active bleeding. Chest closure attempted 10/10 but failed 2/2 desaturation. Early AM 10/11 2 CLOT for left sided weakness. CTH with large large right MCA infarct with associated mass effect. Repeat imaging with evolution of R MCA infarct with increased edema now s/p right decompressive hemicraniectomy per Neurosurgery on 10/12. Issues to communicate at signout: OPEN CHEST - plan for closure 10/14 New RT sided MCA CVA s/p right decompressive hemicraniectomy: Continue 3% for cerebral edema, maintain Na 145-155; keppra 750 mg bid x 2 weeks per neuro: okay to resume ASA 3/18; SQH 3 - on hold until after chest closure Other Problems I Reviewed and/or Managed During This Encounter: Problem Dissection of Thoracic Aorta (Hcc) Patient with chest pain at OSH. CT chest was concerning for aortic dissection starting at the mid arch and descending in the thoracic aorta. Taken to the OR 10/08, brief OR findings greater curvature of the aortic arch was torn longitudinally from innominate artery to distal arch. There was no obvious dissection. 10/08/2017 s/p Total arch replacement with FET under [facility]CA; open chest 10/08/2017 Chest exploration/Evacuation of hematoma/Open chest with wound vac 10/10/2017 Chest opened with wound VAC placement (Attempt closure, but fail due to desaturation) A/P - remains critically ill with open chest. Continue current inotropic management. Diurese as able to improve fluid balance. Plan for closure Saturday 10/14 Acute Respiratory Insufficiency, Postoperative A/p - remains on full ventilatory support 2/2 open chest, right hemicraniectomy. Remains hypoxic on increased fio2 AND peep. CXR with atelectasis and increased vascular markings. Remains on epoprostenol. Continue diuresis for volume control. Atelectasis see respiratory insufficiency Hypoxia see respiratory insufficiency Asthma Preop on Breo Ellipta and Flonase A/P - continue inhalers (budesonide, duonebs). No wheezing. Vented. Cardiac Insufficiency (Hcc) A/p - Improved CI and hemodynamics after chest washout; continue epi for CI > 2.2 . Postoperative Hypotension A/P - Continue current regimen of norepinephrine and vaso but keep MAP > 80 mm Hg for neuro protection Stroke (Cerebrum) (Hcc) New L sided weakness 10/11; CTH with large R MCA infarct with associated mass effect. Repeat imaging with evolution of R MCA infarct with increased edema 10/12/2017 - Right decompressive hemicraniectomy for R MCA stroke and malignant cerebral edema A/p - continue hypertonic saline for goal Na 145-155 - resume ASA after chest closure; - Permissive hypertension as able; goal map >80 - keppra 750 mg bid x 2 weeks Cerebral Edema (Hcc) see CVA Pain, Postoperative, Acute A/P: Fentanyl infusion while intubated with open chest for pain control; appears adequate Acute Kidney Injury (Hcc) Baseline Scr 0.89 to A/p - Estimated Creatinine Clearance: 54.8 mL/min (based on Cr of 1.71). Excellent uop on diuretic. Continue as he remains massively volume overloaded with plans for chest closure in AM. Moderate Protein-Calorie Malnutrition (Hcc) A/p - corpak attempted x 2, unsuccessful. Will consult procedure team for assistance after chest closure. Acute Blood Loss Anemia Has required 13u pRBCs thus far A/p - continue to trend H/H; transfuse Hct > 30% PHYSICAL EXAM: Neuro: Sedation Cardiovascular: Rhythm: regular rate and rhythm and Rate:normal sinus rhythm, paced Pulmonary: Clear to auscultation and Breath sounds equal Ventilator: Intubated: PCV; FiO2: 50; PEEP: 14 cmH2O; Not ready for weaning; HOB elevated 40 degrees: Yes; Oral care with chlorhexidine: Yes; Was sedation turned off? No: Why? Contraindicated because patient's chest is open, patient is unstable CXR Findings: Atelectasis Bilateral, Increased Vascular Markings Bilateral, Pleural effusion R>L and CXR personally viewed and interpreted by ICU staff Nurse Practitioner Gastrointestinal: Abdominal: Soft and Non-tender DAILY CVICU CHECKLIST VTE Prophylaxis: Pharmacologic No - because bleeding risk VTE Prophylaxis: Mechanical: Yes Line infection prevention: Can CVC, PAC or arterial line be removed: No Continued need for urinary catheter: Yes - clinical indication: Patient post major surgery requiring fluid balance and input and output measurement. Restraints needed: No This patient has a high probability of sudden, clinically significant deterioration, which requires the highest level of preparedness to intervene urgently. I participated in the decision making and personally managed or directed the management of the following life and organ supporting interventions that required my frequent assessment to treat or prevent imminent deterioration of: Problem Dissection of Thoracic Aorta (Hcc) Acute Respiratory Insufficiency, Postoperative Atelectasis Hypoxia Asthma Cardiac Insufficiency (Hcc) Postoperative Hypotension Stroke (Cerebrum) (Hcc) Cerebral Edema (Hcc) Pain, Postoperative, Acute Acute Kidney Injury (Hcc) Moderate Protein-Calorie Malnutrition (Hcc) Acute Blood Loss Anemia Aortic Dissection (Hcc) (Resolved) Lactic Acid Acidosis (Resolved) Coagulopathy (Hcc) (Resolved) I personally spent 51 minutes of critical care time treating the patient. Time devoted to any procedures I billed separately is not included. SIGNATURE: Elvira De Los Santos CNP DATE of SERVICE: 10/13/2017 TIME of SERVICE: 12:35 PM Jessica Carter MD 10/13/2017 5:09 PM Addendum Jose Gustafson [id number] Jose Gustafson is now s/p hemicraniectomy for large R MCA stroke. Patient continues to be sedated making good exam very difficult. Recommendations at this time: 1. Normalize CO2 2. Na goal: 140-150 for 24h, then normalize 3. Please turn off sedation at some time prior to surgery for chest closure tomorrow and page [phone] so a good neurologic exam is available prior to surgery tomorrow. Trudi Guardado MD, PGY-4 10/13/2017, 1:16 PM Agree with above, will clarify Na goals with NSGY. Improved mass effect of large infarct s/p decompression. Please page team prior to OR to assess off sedation. Jessica Carter MD [facility] 10/13/2017 5:07 PM Previous Version Arpit Mckenzie MD 10/17/2017 10:41 AM Addendum [place] [phone] [place] OPERATIVE REPORT DEPARTMENT OF THORACIC AND CARDIOVASCULAR SURGERY NAME: JOSE GUSTAFSON [facility] #: [id number] DATE: 10/14/2017 AGE: 52 SURGEON 1: Arpit Mckenzie M.D. SURGEON 2: CHISELER HEAD 1: Dr. Grier CHISELER HEAD 2: ANESTHESIA:general OPERATION: Chest exploration, washout, and chest closure. 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 OPERATIVE INDICATIONS:Same OPERATIVE PROCEDURE: The patient was prepped and draped in the usual sterile fashion. Under general anesthesia, we removed the previous vacuum dressing. The patient's mediastinum was completely cleaned. There were no clots or fluid around the heart. We irrigated with a lot of vancomycin. We used the pulse lavage machine with 1 g of vancomycin and 80 mg of gentamicin with 3 L of saline solution with antibiotics. After finishing all the irrigation and we were satisfied with the hemodynamics and hemostasis, the chest was closed with interrupted wires and the rest of the chest as usual fashion. The patient tolerated very well the chest closure and was transferred to the CVICU in stable condition. CHARGE HAND was Jamaal Lentz. We started operation at 1309 and finished the operation 14;36. ESTIMATED BLOOD LOSS: 50 mL. DRAINS:2 mediastinal, 2 chest tubes, 2 BlAkes SPECIMENS:NO Arpit Mckenzie M.D. JN:[id number] /[id number] cc: Previous Version Cirilo De La Cruz MD 10/14/2017 8:41 AM Addendum Neurosurgery Progress Note: Jose Gustafson [id number] S: FLORENTINO O: 10/14/17 0530 10/14/17 0550 10/14/17 0610 10/14/17 0630 BP: Pulse: 89 89 89 89 Resp: Temp: TempSrc: SpO2: 95% 95% 95% 95% Weight: Height: Exam: E1 V1T M1 PERRL + weak corneals + weak cough Flap full, but soft Drain bloody A/P: 52 y/o M s/p: 10/12 decompressive R hemicraniectomy - neuro stable - Plan to remove drain today - sodium goals per NICU, stroke neurology - keppra 750 mg bid x 2 weeks (to 10/26/17) - okay for ASA 81 mg - HOB elevated - SCDs, ok for SQH today - We will follow peripherally. Sutures/alvina to be removed on POD14 (10/26/17). Please page us if still in house at that point. - Patient will need helmet eventually when out of bed. Please contact orthotics when appropriate for helmet delivery Rest per primary Cirilo De La Cruz MD PGY-2, Neurosurgery October 14, 2017 7:32 AM Pager [phone] Page [phone] after 6 pm and on weekends Previous Version Ariane Tovar MD 10/14/2017 9:05 AM Signed [facility] Progress Note Name: Jose Gustafson COORDINATION OF CARE NOTE: Indication for Surgery: Spontaneous Rupture of Aorta LVEF: Normal RVF: Normal Important/Relevant PMH/PSH: HTN, asthma, hx kidney stones Preoperative Hospital Course (narrative): 52 yo M with PMH HTN, Asthma, and hx of kidney stones who is transferred to [facility] for 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 Hypotension, cardiac insufficiency on norepinephrine, vasopressin, and epoprostenol. Returned to OR 10/08 for exploration and large amount of clots were removed but no active bleeding. Chest closure attempted 10/10 but failed 2/2 desaturation. Early AM 10/11 2 CLOT for left sided weakness. CTH with large large right MCA infarct with associated mass effect. Repeat imaging with evolution of R MCA infarct with increased edema now s/p right decompressive hemicraniectomy per Neurosurgery on 10/12. Issues to communicate at signout: OPEN CHEST - plan for closure 10/14 New RT sided MCA CVA s/p right decompressive hemicraniectomy: Continue 3% for cerebral edema, maintain Na 145-155; keppra 750 mg bid x 2 weeks per neuro: okay to resume ASA 10/13; SQH 10/04 - on hold until after chest closure OTHER PROBLEMS I MANAGED DURING THIS ENCOUNTER: Problem Acute Respiratory Insufficiency, Postoperative A/p - remains on full ventilatory support 2/2 open chest, right hemicraniectomy. Remains hypoxic on increased fio2 AND peep. CXR with atelectasis and increased vascular markings. Remains on epoprostenol. Continue diuresis for volume control. 10/14/2017 will wean veletri after chest closure Cardiac Insufficiency (Hcc) A/p - Improved CI and hemodynamics after chest washout; continue epi for CI > 2.2 . 10/14/2017 small dose of EPI, will wean for CI > 2.2 Acute Ischemic Right Mca Stroke (Hcc) New L sided weakness 10/11; CTH with large R MCA infarct with associated mass effect. Repeat imaging with evolution of R MCA infarct with increased edema 10/12/2017 - Right decompressive hemicraniectomy for R MCA stroke and malignant cerebral edema A/p - continue hypertonic saline for goal Na 145-155 - resume ASA after chest closure; - Permissive hypertension as able; goal map >80 - keppra 750 mg bid x 2 weeks 10/14/2017 S/p decompressing craniotomy last saturday Moderate Protein-Calorie Malnutrition (Hcc) A/p - corpak attempted x 2, unsuccessful. Will consult procedure team for assistance after chest closure. 10/14/2017 will try again today and consult GI if not successful Acute Blood Loss Anemia Has required 13u pRBCs thus far A/p - continue to trend H/H; transfuse Hct > 30% 10/14/2017 will monitor SUBJECTIVE INTERVAL HISTORY: No acute events PERTINENT REVIEW OF SYSTEMS: See Assessment and Plan. Remaining ROS reviewed and negative. PHYSICAL EXAM AND PERTINENT DATA: Infusions: Epinephrine Insulin Vital Signs: BP 152/83 Pulse 89 Temp 38.4 ?C (101.1 ?F) (Core) Resp 30 Ht 182.9 cm (6') Wt 90.9 kg (200 lb 6.4 oz) SpO2 95% BMI 27.18 kg/m2 Neuro: Unresponsive Cardiovascular: Rhythm: regular rate and rhythm MAP: 89 mm Hg CVP: 2 mm Hg PAP: 28/7 mm Hg Cardiac Index: 3.1 L/min/m2 Pulmonary: Breath sounds equal, Diminished breath sounds, bases, pinky and open chest Ventilator: Intubated: SPCV; FiO2: 40%; PEEP: 14; Not ready for weaning; HOB elevated 40 degrees: Yes; Oral care with chlorhexidine: Yes; Was sedation turned off? Yes Recent Labs 10/14/17 0636 10/14/17 0635 10/14/17 0440 10/14/17 0437 10/14/17 0244 PH 7.45 -- -- 7.46* -- 7.45 PCO2 36 -- -- 35 -- 36 PO2 109* -- -- 108* -- 103* HCO3 25 -- -- 24 -- 25 O2HB 98 -- -- 98 -- 96 LACT 1.6 1.6 1.5 1.6 < > 1.6 < > = values in this interval not displayed. CXR Findings: Atelectasis Bilateral and CXR personally viewed and interpreted by ICU staff Physician Gastrointestinal: Abdominal: Soft, Non-tender and Bowel sounds no Recent Labs 10/14/17 0230 10/13/17 0007 10/12/17 0100 TPROT 6.2* 5.7* 5.5* ALB 3.4* 3.1* 2.7* ALKPHOS 63 71 74 TBILI 6.5* 4.0* 3.1* AST 76* 95* 145* ALT 125* 183* 275* Heme: Recent Labs 10/14/17 0230 10/13/17 0007 10/12/17 0830 WBC 9.35 8.80 12.16* HB 9.2* 8.7* 11.3* HCT 29.0* 27.0* 34.9* PLT 145* 137* 106* Recent Labs 10/14/17 0230 10/12/17 0830 10/11/17 1940 PTSEC 13.0 12.0 12.1 INR 1.3 1.2 1.2 APTT 29.9 36.1* 36.1* Endocrine: Renal: Stable Intake/Output Summary (Last 24 hours) at 10/14/17 0659 Last data filed at 10/14/17 0630 Gross per 24 hour Intake 3922 ml Output 5620 ml Net -1698 ml Recent Labs 10/14/17 0635 10/14/17 0550 10/14/17 0440 10/14/17 0248 10/14/17 0230 10/13/17 2250 10/13/17 0007 10/12/17 0100 NA -- 161* -- -- 159* -- 159* -- 148* -- 137 K -- -- -- -- 3.7 -- -- -- 3.9 -- 4.4 CHLOR -- -- -- -- 119* -- -- -- 110* -- 96* CO2 28 -- 28 27 24 < > -- < > 28 < > 28 BUN -- -- -- -- 45* -- -- -- 33* -- 30* CREAT -- -- -- -- 1.92* -- -- -- 1.71* -- 1.63* GLUC -- -- -- -- 121* -- -- -- 108* -- 109* < > = values in this interval not displayed. Recent Labs 10/14/17 0230 10/13/17 0007 10/12/17 0100 CA 8.3* 8.1* 7.9* Drug Blood Levels: Recent Labs 10/11/17 0828 VANCORA 10.9 I have discussed the case and the plan and management of the patient's care with the primary surgical team and consulting services, the bedside nurse and the respiratory therapist. SIGNATURE: Ariane Tovar MD DATE of SERVICE: 10/14/2017 TIME of SERVICE: 7:55 AM I gave my full attention and provided critical care time for 32 minutes, exclusive of separately billable procedures and treating other patients. I examined the patient and directed decision making. This was necessary to treat or prevent imminent deterioration of the following condition(s) Respiratory failure and Central nervous system failure or compromise. S/p Arch replacement complicated by Right MCA CVA requiring decompression craniotomy during the weekend vent dependent, unable to wean, chest still open on veletri for hypoxemia improved will wean after chest closure open chest poss closure today nutrition NPO for now, corpak after chest closure hypernatremia will monitor acute blood loss anemia will monitor Ariane Tovar MD 10/14/2017 8:59 AM Niurka Freedman DO 10/14/2017 11:40 AM Addendum CONSULT PROGRESS NOTE NEURO STROKE SERVICE DATE: 10/14/2017 SERVICE TIME: 0836 Subjective INTERVAL HISTORY: PT now off pressors and propofol. Exam remains poor. Na 156 MEDICATIONS Current hospital medications: sodium chloride 3 % infusion INTRAVENOUS CONTINUOUS levETIRAcetam 750 mg in NaCl 0.9% 100 mL (KEPPRA) 750 mg INTRAVENOUS BID vancomycin 1.25 g in D5W 250 mL (VANCOCIN) 1.25 g INTRAVENOUS q 24 HR furosemide 500 mg in empty bottle 50 mL IV infusion (LASIX) 5 mg/hr INTRAVENOUS CONTINUOUS epoprostenol INHALATION 30,000 ng/mL in 0.9% NaCl 50 mL (VELETRI) 0.01-0.05 mcg/kg/min (Cashion) INHALATION CONTINUOUS PHENYLephrine 80 mg in D5W 250 mL (NEOSYNEPHRINE) 25-200 mcg/min INTRAVENOUS CONTINUOUS Chlorhexidine Gluconate 0.12 % 15 mL (PERIDEX) 15 mL ORAL q [address] 20 mg tab(s) (PROTONIX) 20 mg ORAL DAILY (6 AM) pantoprazole 20 mg CUP (PROTONIX) 20 mg ORAL/FEEDING TUBE DAILY (6 AM) senna-docusate 8.6-50 mg 1 tablet (SENNA-S) 1 tablet ORAL BID bisacodyl 10 mg suppository (DULCOLAX) 10 mg RECTAL DAILY PRN ondansetron (PF) 4 mg injection (ZOFRAN) 4 mg INTRAVENOUS q 6 H PRN potassium chloride iv piggyback 10 mEq/100mL 10 mEq INTRAVENOUS PRN potassium chloride iv piggyback 20 mEq/50 mL 20 mEq INTRAVENOUS PRN potassium chloride 40-120 mEq oral powder (KLOR-CON) 40-120 mEq ORAL/FEEDING TUBE PRN 0.9% NaCl 3-5 mL 3-5 mL INTRAVENOUS q 12 H 0.9% NaCl 10 mL 10 mL INTRAVENOUS q 12 H insulin regular human iv bolus 2-10 Units 2-10 Units INTRAVENOUS PRN insulin regular 250 units in NaCl 0.9% 250 mL iv infusion - HVI CVICU NOMOGRAM 0.5-40 Units/hr INTRAVENOUS CONTINUOUS dextrose 50% in water 25 mL syringe 12.5 g INTRAVENOUS PRN dextrose 5% in NaCl 0.2% iv infusion 5 mL/hr INTRAVENOUS CONTINUOUS insulin glargine 0-40 Units pen (long acting) (LANTUS SOLOSTAR, BASAGLAR) 0-40 Units SUBCUTANEOUS As Directed nitroglycerin 50 mg in D5W 250 mL 5-200 mcg/min INTRAVENOUS CONTINUOUS nitroglycerin injection 100 mcg injection syringe 100 mcg INTRAVENOUS PRN PHENYLephrine 0.1 mg injection 100 mcg INTRAVENOUS PRN fentaNYL FREIGHT AND PASSENGER AGENT 20 mcg/mL in NaCl 0.9% 100 mL INTRAVENOUS CONTINUOUS naloxone 0.04 mg injection (NARCAN) 0.04 mg INTRAVENOUS PRN lidocaine 5 % 1 Patch (LIDODERM) 1 Patch TRANSDERMAL DAILY lidocaine patch - REMOVE OTHER AT BEDTIME lidocaine - VERIFY PATCH OTHER q 8 H fentaNYL 50 mcg/mL 25-75 mcg injection (SUBLIMAZE) 25-75 mcg INTRAVENOUS q 1 H PRN acetaminophen 650 mg tab(s) (TYLENOL) 650 mg ORAL/FEEDING TUBE q 4 H PRN oxyCODONE IR 5-10 mg tab(s) (ROXICODONE) 5-10 mg ORAL/FEEDING TUBE q 6 H PRN propofol infusion (DIPRIVAN) 10-50 mcg/kg/min (Order-Specific) INTRAVENOUS CONTINUOUS propofol iv bolus 10-50 mg (DIPRIVAN) 10-50 mg INTRAVENOUS q 1 H PRN vasopressin 20 units in D5W 100 mL (VASOSTRICT) 0.01-0.1 Units/min INTRAVENOUS CONTINUOUS NORepinephrine 4 mg in D5W 250 mL (LEVOPHED) 0.6-20 mcg/min INTRAVENOUS CONTINUOUS fentaNYL iv infusion 20 mcg/mL in NaCl 0.9% 100 mL 25-250 mcg/hr INTRAVENOUS CONTINUOUS ciprofloxacin 400 mg in D5W 200 mL (CIPRO) 400 mg INTRAVENOUS q 12 HR vancomycin dosing and monitoring per pharmacy OTHER As Directed EPINEPHrine iv infusion 4 mg in D5W 250 mL 0.5-4 mcg/min INTRAVENOUS CONTINUOUS albuterol 2.5 mg /3 mL (0.083 %) 2.5 mg (PROVENTIL) 2.5 mg INHALATION QID budesonide 1 mg/2 mL 1 mg nebulizer suspension (PULMICORT) 1 mg INHALATION BID Objective PHYSICAL EXAM Vital Signs: BP 152/83 Pulse 90 Temp 38.4 ?C (101.1 ?F) (Core) Resp 30 Ht 182.9 cm (6') Wt 90.9 kg (200 lb 6.4 oz) SpO2 98% BMI 27.18 kg/m2 NEUROLOGICAL: LOC: 3 - reflex responses or unarousable 3 LOC Questions: 2 - none correct 2 LOC Commands: 2 - neither correct 2 LOC Normal Gaze: 0 - normal gaze 0 Visual Helms: 0 - no visual loss 0 Facial Palsy: 0 - normal 0 Motor Left Arm: 4 - no movement at all 4 Motor Right Arm: 4 - no movement at all 4 Motor Left Le - no movement at all 4 Motor Right Le - no movement at all 4 Limb Ataxia: 0 - no ataxia (or aphasic, hemiplegic) 0 Sensory: 2 - total loss, patient unaware of touch. coma, bilateral loss 2 Language: 3 - mute, global aphasia, coma 3 Dysarthria: X - intubation or mech barrier X Extinction/Neglect: 0 - normal, none detected (or visual loss alone) 0 Total Daily NIHSS: 28 (10/14/17 0844 : Niurka (Res) Handshoe) 28 MENTAL STATUS: Intubated, eyes spont open. No command following CRANIAL NERVES:primary gaze, Corneal intact, No blink to threat, PERRL, Face symmetric, No gag, + Cough intact MOTOR:No spont movement today. No w/drawal to nox stim DATA: Diagnostic tests reviewed for today's visit: Lipids, HbA1c, CMP, CBC, Coags Recent Labs 10/14/17 0824 10/14/17 0818 10/14/17 0636 10/14/17 0635 10/14/17 0550 10/14/17 0440 10/14/17 0230 10/13/17 2250 10/13/17 0007 10/12/17 0830 10/12/17 0100 10/11/17 1940 NA -- -- -- -- 161* -- -- 159* -- 159* -- 148* -- -- -- 137 < > -- K -- -- -- -- -- -- -- 3.7 -- -- -- 3.9 -- -- -- 4.4 -- -- CHLOR -- -- -- -- -- -- -- 119* -- -- -- 110* -- -- -- 96* -- -- CO2 26 -- -- 28 -- 28 < > 24 < > -- < > 28 < > -- < > 28 < > -- BUN -- -- -- -- -- -- -- 45* -- -- -- 33* -- -- -- 30* -- -- CREAT -- -- -- -- -- -- -- 1.92* -- -- -- 1.71* -- -- -- 1.63* -- -- GLUC -- -- -- -- -- -- -- 121* -- -- -- 108* -- -- -- 109* -- -- IC 1.12 1.14 1.17 1.18 -- 1.15 < > -- < > -- < > -- < > -- < > -- < > -- CA -- -- -- -- -- -- -- 8.3* -- -- -- 8.1* -- -- -- 7.9* -- -- WBC -- -- -- -- -- -- -- 9.35 -- -- -- 8.80 -- 12.16* -- 12.49* < > -- HB -- -- -- -- -- -- -- 9.2* -- -- -- 8.7* -- 11.3* -- 11.2* < > -- HCT -- -- -- -- -- -- -- 29.0* -- -- -- 27.0* -- 34.9* -- 33.6* < > -- PLT -- -- -- -- -- -- -- 145* -- -- -- 137* -- 106* -- 103* < > -- INR -- -- -- -- -- -- -- 1.3 -- -- -- -- -- 1.2 -- -- -- 1.2 APTT -- -- -- -- -- -- -- 29.9 -- -- -- -- -- 36.1* -- -- -- 36.1* < > = values in this interval not displayed. Cardiac Enzymes No new significant results Most recent labs and imaging results. MEDICAL EVENTS: No medical events have been recorded. STROKE 9 CARE AND PREVENTION CHECKLIST 1. Is the patient currently on an ANTITHROMBOTIC medication (Antiplatelet or Anticoagulant): Aspirin 2. Does the patient have known AFIB/FLUTTER: No 3. Is the patient on a STATIN: None Reason for no statin: (not a primary patient) 4. Is the patient on VTE prophylaxis: Pharmacological prophylaxis;Mechanical prophylaxis Mechanical intervention type: Intermittent compression stocking(s) 5. GLYCEMIC Control Medications: Not Diabetic 6. Stroke BP Goals: <180/105 Stroke BP Control: BP well controlled 7. 8. TEMPERATURE Control: Normothermic 9. Does the patient need THERAPY: Yes Therapy involvement: PT;OT;ST Stroke Care and Prevention (personally reviewed by Niurka Freedman DO): Daily Rounding Date: 10/14/17 Daily Rounding Time: 5392 PROBLEM LIST: Principal Problem: Dissection of thoracic aorta (HCC) POA: Unknown Active Problems: Asthma POA: Yes Atelectasis POA: Unknown Hypoxia POA: Unknown Acute respiratory insufficiency, postoperative POA: Unknown Postoperative hypotension POA: No Cardiac insufficiency (HCC) POA: Yes Pain, postoperative, acute POA: No Acute ischemic right MCA stroke (HCC) POA: No Cerebral edema (HCC) POA: No Acute kidney injury (HCC) POA: Unknown Moderate protein-calorie malnutrition (HCC) POA: Unknown Acute blood loss anemia POA: Unknown Resolved Problems: Aortic dissection (HCC) POA: Yes Lactic acid acidosis POA: Unknown Coagulopathy (HCC) POA: Unknown Impression/Recommendations 52yo male w/ hx of htn admitted on 10/07 found to have 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 Pt maintained on multiple pressors. 2clot called for L sided weakness w/ LKW 1700 on 10/10/17. iNIHSS 25. CTH w/ hypodensity in RMCA distribution. Stroke Mechanism Stroke Mechanism - LIP ENTRY ONLY Ischemic Stroke or TIA: Ischemic Stroke TOAST Mechanism ([facility]-MODIFIED): Stroke of Other Determined Etiology Stroke of Other Determined Etiology: Dissection Total Daily NIHSS: 28 PLAN # RMCA Ischemic Stroke w/ malignant Cerebral Edema - Etiology likely embolic 2/2 to dissection - rCTH 1600 10/11: Unchanged RMCA stroke w/ assoc mass effect - TCD w/ asymmetry in mean flow velocities within the bilateral MCAs with right being significantly lower than left. - Carotid Duplex: 0-19% stenosis b/l - s/p R Hemicraniectomy Plan - Cont ASA - Permissive hypertension as able per CTS service - repeat CTH wo contrast today # Hypernatremia - Off 3% now Plan - Allow Na to start normalizing. - Continue checking Na q4h. Do not allow Na to go below 150 today to avoid CPM SIGNATURE: Niurka Freedman DO PATIENT NAME: Jose Gustafson DATE: October 14, 2017 TIME: 8:36 AM PAGER/CONTACT #: [phone] Previous Version Renee Olivo Pharmacist 10/14/2017 3:16 PM Signed PHARMACY VANCOMYCIN DOSING NOTE Patient Name: Jose Gustafson Admission Date: 10/07/2017 Date of Consult: 10/14/2017 Time of Consult: 10:28 AM Indication: Source Unknown; empiric Goal Range: 10-20 mcg/mL RECOMMENDATIONS/PLAN: Pharmacy consulted for vancomycin dosing for Jose Gustafson, a 52 year old, male who is being treated with vancomycin for empiric coverage/open chest. 1. Patient is currently ordered Vancomycin 1.25 g IV q24h. Today is day 7 of therapy. 2. The most recent vancomycin level was 10.9 mcg/mL drawn at 0828 on 10/11. This is a 36 hour level on the 4 day of therapy. 3. The present dose of vancomycin is the recommended dosage for this patient at this time. Continue therapy as prescribed. 4. The next vancomycin level will be ordered for 10/16 unless clinically indicated sooner. (Pharmacy will order) We will follow patient renal function, vancomycin levels and doses with you during the course of therapy. Additional recommendations will appear in follow up notes. If you have any questions, please contact Renee Olivo, Pharmacist at pager [phone]. Age: [age] year old Allergies: ALLERGIES Allergen Reactions - Cats - Grass Pollen Itching Last 3 Encounter Wt Readings: Date: Wt: 10/07/2017 90.9 kg (200 lb 6.4 oz) 09/07/2017 84.6 kg (186 lb 6.4 oz) 08/24/2017 83.5 kg (184 lb) Last 1 Encounter Ht Readings: Date: Ht: 10/07/2017 182.9 cm (6') CrCl: 48.8 mL/min Temp (24hrs), Av.6 ?C (101.5 ?F), Min:38.4 ?C (101.1 ?F), Max:39 ?C (102.2 ?F) - Current Temp: 38.4 ?C (101.1 ?F) Labs BUN (mg/dL) Date Value 10/14/2017 45 (H) 10/13/2017 33 (H) 10/12/2017 30 (H) Creatinine (mg/dL) Date Value 10/14/2017 1.92 (H) 10/13/2017 1.71 (H) 10/12/2017 1.63 (H) WBC (k/uL) Date Value 10/14/2017 9.35 10/13/2017 8.80 10/12/2017 12.16 (H) Vancomycin Levels: Vancomycin, result (ug/mL) Date Value 10/11/2017 10.9 10/09/2017 13.6 Lynda Pal (Metal Template Maker) Renee Olivo, Pharmacist Previous Version Anna Souza RN 10/14/2017 1:50 PM Signed CARE MANAGEMENT PROGRESS NOTE SERVICE DATE: 10/14/2017 SERVICE TIME: 1:45PM LOS: 7 days Needs Prior to Discharge: To Be Determined Per EMR; 10/08/2017 Total arch replacement with FET under DHCA 10/08/2017 Chest exploration/Evacuation of hematoma / Open chest with wound vac 10/10/2017 Chest opened with wound VAC placement (Attempt closure, but fail due to desaturation) 10/12/2017 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 FIO2 40%. Case Management will continue to follow patient for discharge needs/planning. SIGNATURE: Anna Souza RN PATIENT NAME: Jose Gustafson DATE: October 14, 2017 TIME: 1:45 PM PAGER/CONTACT #: [phone] Aliya Doan MD 10/14/2017 2:00 PM Signed CARDIOTHORACIC BRIEF OP NOTE LOG ID: [id number] SURGERY/PROCEDURE DATE: 10/14/2017 INCISION/PROCEDURE START TIME: 1309 INCISION CLOSE/PROCEDURE END TIME: SURGEON(S) AND CHISELER HEAD(S): Surgeon(s) and Role: * Arpit Mckenzie - Primary * Aliya (Reece Doan - Assisting Registered Nurse Spinning Doffer: Jamaal (Rn) HERMINIO LentzWOOL PRESSER AND ANESTHESIA: Procedure(s) and Anesthesia Type: * EXPLORATION FOR POSTOPERATIVE HEMORRHAGE/THROMBOSIS/INFECTION CHEST - General ANESTHESIA: General BRIEF FINDINGS: chest wash out and closure PREOPERATIVE DIAGNOSIS: chest wash out and closure POSTOPERATIVE DIAGNOSIS: chest wash out and closure ESTIMATED BLOOD LOSS: 50 ml SPECIMENS: sternal wound fluid COMPLICATIONS: None SIGNATURE: Aliya Doan MD PATIENT NAME: Jose Gustafson DATE: October 14, 2017 TIME: 1:58 PM PAGER/CONTACT #: [phone] Yumiko Dee MD 10/14/2017 3:[address] Anesthesia Postoperative Note: Patient is s/p chest washout with delayed closure. He tolerated the procedure uneventfully and was transferred back to CVICU intubated and sedated with no evidence of pain/nausea/vomiting. BP 100/50, HR 69, CVP 10, SpO2 100%, T 37.8. There are no adverse anesthetic events to report at present time. Vianey Mosley 10/14/2017 5:09 PM Signed Radiology Service Progress Note PATIENT NAME: Jose Gustafson DATE OF SERVICE: October 14, 2017 TIME: 4:58 PM PATIENT IDENTITY VERIFICATION COMPLETED USING TWO (2) METHODS: Patient confirmed name verbally and ID band matches.. PATIENT GENDER DATA: Male PATIENT RELEVANT IMPLANT DATA REVIEWED: Yes RADIOLOGY DEPARTMENT: CT; Exam(s) Completed: Brain PERIPHERAL IV DATA: Not applicable SIGNED BY: Vianey Mosley October 14, 2017 4:58 PM Nicyk Badillo MD 10/16/2017 4:48 PM Addendum BRIEF STROKE CONSULT PROGRESS NOTE: Pt's Na remains elevated (156-161 in last 24h) despite being off 3% since midnight yesterday. rCTH shows expected evolution of known stroke. Chest closed yesterday. Back on propofol and pressors. Assessment: large R MCA infarct s/p hemicrani Plan: 1. Keep pt off hypertonics and allow Na to slowly normalize. Do not let Na drop by more than 10 per day given risk of central pontine myelinolysis. Goal today 145-155. Restart 2% if needed. 2. Change Na checks to q6h Bianca Irwin MD October 15, 2017 7:52 AM UPDATE: Pt evaluated at 1530 for dysconjugate gaze, unresponsiveness to noxious stim and verbal command. On assessment, gaze dysconjugate w/R eye up and out, L eye down and out. PERRL and all brainstem reflexes intact including occulocephalics, but no blink to threat. No movement on L to noxious stim, moves RLE to command in plane of bed twice, but then stopped responded again. No response to noxious stim in RUE. Taken for STAT rCTH which was stable. Notably bili trending up to 8, intermittently febrile to 39 since yesterday, intermittently being cooled w/cooling blankets. Assessment: stable L R MCA infarct and metabolic/infectious etiology. Plan: In addition to plan outlined above, monitor for seizure like activity and correct underlying metabolic and infectious issues. No BEM given hemicrani. Plan discussed w/stroke staff, Dr. Nicky Irwin MD October 15, 2017 5:39 PM TEACHING PHYSICIAN NOTE OF PERSONAL INVOLVEMENT IN CARE I have reviewed the Consult Note obtained and documented by Resident and I personally participated in the curry components. I have discussed the case and management of the patient's care with them. The following comments revise or confirm relevant curry components of the note. 52 yo man s/p large right MCA distribution infarct s/p aortic arch repair, underwent hemicraniectomy Saturday10/12/17. Imaging has been stable with reduced mass effect and no hemorrhagic conversion (last done yesterday). Clinically he has not been following commands for last few days. Today after > 10 minutes off propofol, his eyes are open, does not track or follow commands, EOM full (doll's eyes), some movement right toes. Impression: large right MCA embolic infarct s/p hemicraniectomy, not following commands. Possibly metabolic encephalopathy. Would place BEM to check for seizures. Slowly reduce sodium (still 162 this morning). Nicky Badillo MD Previous Version Ariane Tovar MD 10/15/2017 8:14 AM Signed [facility] Progress Note Name: Jose Gustafson COORDINATION OF CARE NOTE: Indication for Surgery: Spontaneous Rupture of Aorta LVEF: Normal RVF: Normal Important/Relevant PMH/PSH: HTN, asthma, hx kidney stones Preoperative Hospital Course (narrative): 52 yo M with PMH HTN, Asthma, and hx of kidney stones who is transferred to [facility] for 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 Hypotension, cardiac insufficiency on norepinephrine, vasopressin, and epoprostenol. Returned to OR 10/08 for exploration and large amount of clots were removed but no active bleeding. Chest closure attempted 10/10 but failed 2/2 desaturation. Early AM 10/11 2 CLOT for left sided weakness. CTH with large large right MCA infarct with associated mass effect. Repeat imaging with evolution of R MCA infarct with increased edema now s/p right decompressive hemicraniectomy per Neurosurgery on 10/12. Issues to communicate at signout: OPEN CHEST - plan for closure 10/14 New RT sided MCA CVA s/p right decompressive hemicraniectomy: Continue 3% for cerebral edema, maintain Na 145-155; keppra 750 mg bid x 2 weeks per neuro: okay to resume ASA 10/13; SQH 10/04 - on hold until after chest closure OTHER PROBLEMS I MANAGED DURING THIS ENCOUNTER: Problem Acute Respiratory Insufficiency, Postoperative A/p - remains on full ventilatory support 2/2 open chest, right hemicraniectomy. Remains hypoxic on increased fio2 AND peep. CXR with atelectasis and increased vascular markings. Remains on epoprostenol. Continue diuresis for volume control. 10/14/2017 will wean veletri after chest closure 10/15/2017 unable to wean due to neuro status Acute Ischemic Right Mca Stroke (Hcc) New L sided weakness 10/11; CTH with large R MCA infarct with associated mass effect. Repeat imaging with evolution of R MCA infarct with increased edema 10/12/2017 - Right decompressive hemicraniectomy for R MCA stroke and malignant cerebral edema A/p - continue hypertonic saline for goal Na 145-155 - resume ASA after chest closure; - Permissive hypertension as able; goal map >80 - keppra 750 mg bid x 2 weeks 10/14/2017 S/p decompressing craniotomy last saturday10/15/2017 followed simple command Acute Blood Loss Anemia Has required 13u pRBCs thus far A/p - continue to trend H/H; transfuse Hct > 30% 10/14- will monitor SUBJECTIVE INTERVAL HISTORY: No acute events PERTINENT REVIEW OF SYSTEMS: See Assessment and Plan. Remaining ROS reviewed and negative. PHYSICAL EXAM AND PERTINENT DATA: Infusions: Insulin Vital Signs: BP 152/83 Pulse 63 Temp 36.6 ?C (97.9 ?F) (Oral) Resp 20 Ht 182.9 cm (6') Wt 99.8 kg (220 lb 0.3 oz) SpO2 96% BMI 29.84 kg/m2 Neuro: Unresponsive Cardiovascular: Rate:normal sinus rhythm MAP: 100 mm Hg CVP: 14 mm Hg Pulmonary: Breath sounds equal and Diminished breath sounds, at the bases Ventilator: Intubated: SPCV; FiO2: 50%; PEEP: 9; Not ready for weaning; HOB elevated 40 degrees: Yes; Oral care with chlorhexidine: Yes; Was sedation turned off? Yes Recent Labs 10/15/17 0630 10/15/17 0403 10/15/17 0155 PH 7.35 7.36 7.37 PCO2 44 43 40 PO2 112* 148* 128* HCO3 24 24 23 O2HB 96 97 97 LACT 1.6 1.7 1.7 CXR Findings: Atelectasis Bilateral and CXR personally viewed and interpreted by ICU staff Physician Gastrointestinal: Abdominal: Soft, Non-tender and Bowel sounds yes Recent Labs 10/15/17 0005 10/14/17 0230 10/13/17 0007 TPROT 5.7* 6.2* 5.7* ALB 3.1* 3.4* 3.1* ALKPHOS 52 63 71 TBILI 8.0* 6.5* 4.0* AST 59* 76* 95* ALT 96* 125* 183* Heme: Recent Labs 10/15/17 0005 10/14/17 0230 10/13/17 0007 WBC 12.21* 9.35 8.80 HB 8.8* 9.2* 8.7* HCT 27.6* 29.0* 27.0* PLT 172 145* 137* Recent Labs 10/14/17 0230 10/12/17 0830 PTSEC 13.0 12.0 INR 1.3 1.2 APTT 29.9 36.1* Endocrine: Renal: Stable Intake/Output Summary (Last 24 hours) at 10/15/17 0659 Last data filed at 10/15/17 0630 Gross per 24 hour Intake 3410 ml Output 4775 ml Net -1365 ml Recent Labs 10/15/17 0417 10/15/17 0005 10/14/17 1950 10/14/17 1544 10/14/17 1021 10/14/17 0230 10/13/17 0007 NA 159* 161* 161* -- < > -- < > 159* < > 148* K -- 4.2 -- -- -- -- -- 3.7 -- 3.9 CHLOR -- 123* -- -- -- -- -- 119* -- 110* CO2 -- 25 -- 28 -- 26 < > 24 < > 28 BUN -- 59* -- -- -- -- -- 45* -- 33* CREAT -- 1.72* -- -- -- -- -- 1.92* -- 1.71* GLUC -- 137* -- -- -- -- -- 121* -- 108* < > = values in this interval not displayed. Recent Labs 10/15/17 0005 10/14/17 0230 10/13/17 0007 CA 8.0* 8.3* 8.1* Drug Blood Levels: I have discussed the case and the plan and management of the patient's care with the primary surgical team and consulting services, the bedside nurse and the respiratory therapist. SIGNATURE: Ariane Tovar MD DATE of SERVICE: 10/15/2017 TIME of SERVICE: 7:44 AM .I gave my full attention and provided critical care time for 32 minutes, exclusive of separately billable procedures and treating other patients. I examined the patient and directed decision making. This was necessary to treat or prevent imminent deterioration of the following condition(s) Respiratory failure and Central nervous system failure or compromise. S/p Arch replacement complicated by Right MCA CVA requiring decompression craniotomy during the weekend,followed simple command today vent dependent, will wean when neuro improve closed his chest yesterday nutrition tolerating TF hypernatremia will continue to monitor acute blood loss anemia stable will monitor Ariane Tovar MD 10/15/2017 8:06 AM Cheng Louis, MSN, APPLICATIONS SALES CONSULTANT.ROVING HAULER, APPLICATIONS SALES CONSULTANT.ROVING HAULER 10/16/2017 11:15 AM Signed Discussed patient in Interdisiplinary Rounds. Attending rounds: Clinical Nurse Specialist, Nurse Practitioner, Nurse Coordinator, Lumber Cutter, Ethicist, MD, and bedside nurse. Short term goals as well as group home goals were discussed. Cheng Louis MSN, APPLICATIONS SALES CONSULTANT, ACCNS-AG, CCRN Ariane Tovar MD 10/16/2017 2:16 PM Addendum [facility] Progress Note Name: Jose Gustafson COORDINATION OF CARE NOTE: Indication for Surgery: Spontaneous Rupture of Aorta LVEF: Normal RVF: Normal Important/Relevant PMH/PSH: HTN, asthma, hx kidney stones Preoperative Hospital Course (narrative): 52 yo M with PMH HTN, Asthma, and hx of kidney stones who is transferred to [facility] for 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 Hypotension, cardiac insufficiency on norepinephrine, vasopressin, and epoprostenol. Returned to OR 10/08 for exploration and large amount of clots were removed but no active bleeding. Chest closure attempted 10/10 but failed 2/2 desaturation. Early AM 10/11 2 CLOT for left sided weakness. CTH with large large right MCA infarct with associated mass effect. Repeat imaging with evolution of R MCA infarct with increased edema now s/p right decompressive hemicraniectomy per Neurosurgery on 10/12. Issues to communicate at signout: OPEN CHEST - plan for closure 10/14 New RT sided MCA CVA s/p right decompressive hemicraniectomy: Continue 3% for cerebral edema, maintain Na 145-155; keppra 750 mg bid x 2 weeks per neuro: okay to resume ASA 10/13; SQH 10/04 - on hold until after chest closure OTHER PROBLEMS I MANAGED DURING THIS ENCOUNTER: Problem Acute Respiratory Insufficiency, Postoperative A/p - remains on full ventilatory support 2/2 open chest, right hemicraniectomy. Remains hypoxic on increased fio2 AND peep. CXR with atelectasis and increased vascular markings. Remains on epoprostenol. Continue diuresis for volume control. 10/14/2017 will wean veletri after chest closure 10/15- unable to wean due to neuro status Acute Ischemic Right Mca Stroke (Hcc) New L sided weakness 10/11; CTH with large R MCA infarct with associated mass effect. Repeat imaging with evolution of R MCA infarct with increased edema 10/12/2017 - Right decompressive hemicraniectomy for R MCA stroke and malignant cerebral edema A/p - continue hypertonic saline for goal Na 145-155 - resume ASA after chest closure; - Permissive hypertension as able; goal map >80 - keppra 750 mg bid x 2 weeks 10/14/2017 S/p decompressing craniotomy last saturday10/15/2017 followed simple command 10/16/[address] yesterday no changes Acute Blood Loss Anemia Has required 13u pRBCs thus far A/p - continue to trend H/H; transfuse Hct > 30% 10/14- will monitor High Bilirubin will monitor SUBJECTIVE INTERVAL HISTORY: No acute events PERTINENT REVIEW OF SYSTEMS: See Assessment and Plan. Remaining ROS reviewed and negative. PHYSICAL EXAM AND PERTINENT DATA: Infusions: Fentanyl Insulin Norepinephrine Propofol Vital Signs: BP 152/83 Pulse 83 Temp 36.8 ?C (98.2 ?F) (Oral) Resp (!) 31 Ht 182.9 cm (6') Wt 99.8 kg (220 lb 0.3 oz) SpO2 94% BMI 29.84 kg/m2 Neuro: Sedation Cardiovascular: Rate:normal sinus rhythm MAP: 92 mm Hg CVP: 15 mm Hg Pulmonary: Breath sounds equal and Diminished breath sounds, at the bases Ventilator: Intubated: SPCV; FiO2: 405; PEEP: 10; Not ready for weaning; HOB elevated 40 degrees: Yes; Oral care with chlorhexidine: Yes; Was sedation turned off? No: Why? neuro status unchanged Recent Labs 10/16/17 1127 10/16/17 0809 10/16/17 0623 PH 7.40 7.39 7.40 PCO2 36 37 36 PO2 99* 117* 122* HCO3 22 22 22 O2HB 96 96 96 LACT 1.8 2.1 2.0 CXR Findings: Atelectasis Bilateral and CXR personally viewed and interpreted by ICU staff Physician Gastrointestinal: Abdominal: Soft, Non-tender and Bowel sounds yes Recent Labs 10/16/17 0120 10/15/17 0005 10/14/17 0230 TPROT 5.8* 5.7* 6.2* ALB 3.1* 3.1* 3.4* ALKPHOS 61 52 63 TBILI 8.9* 8.0* 6.5* AST 81* 59* 76* ALT 85* 96* 125* Heme: Recent Labs 10/16/17 0120 10/15/17 0005 10/14/17 0230 WBC 15.74* 12.21* 9.35 HB 9.2* 8.8* 9.2* HCT 29.7* 27.6* 29.0* PLT 219 172 145* Recent Labs 10/14/17 0230 PTSEC 13.0 INR 1.3 APTT 29.9 Endocrine: Renal: Stable Intake/Output Summary (Last 24 hours) at 10/16/17 0659 Last data filed at 10/16/17 0630 Gross per 24 hour Intake 3971 ml Output 5350 ml Net -1379 ml Recent Labs 10/16/17 0800 10/16/17 0120 10/15/17 2000 10/15/17 0005 10/14/17 1544 10/14/17 0230 NA 164* 161* 160* < > 161* < > -- < > 159* K -- 4.4 -- -- 4.2 -- -- -- 3.7 CHLOR -- 127* -- -- 123* -- -- -- 119* CO2 -- 25 -- -- 25 -- 28 < > 24 BUN -- 64* -- -- 59* -- -- -- 45* CREAT -- 1.34* -- -- 1.72* -- -- -- 1.92* GLUC -- 147* -- -- 137* -- -- -- 121* < > = values in this interval not displayed. Recent Labs 10/16/17 0120 10/15/17 0005 10/14/17 0230 CA 8.2* 8.0* 8.3* Drug Blood Levels: I have discussed the case and the plan and management of the patient's care with the primary surgical team and consulting services, the bedside nurse and the respiratory therapist. SIGNATURE: Ariane Tovar MD DATE of SERVICE: 10/16/2017 TIME of SERVICE: 11:51 AM I gave my full attention and provided critical care time for 32 minutes, exclusive of separately billable procedures and treating other patients. I examined the patient and directed decision making. This was necessary to treat or prevent imminent deterioration of the following condition(s) Respiratory failure, Circulatory failure and Central nervous system failure or compromise. S/p Arch replacement complicated by Right MCA CVA requiring decompression craniotomy during the weekend concern yesterday about gaze dysconjugate repeat CT done, no changes vent dependent, unable to wean due to neuro status hypotension on levo will wean for MAP > 80 hypernatremia will increase water flushes acute blood loss anemia stable will monitor high Bili, plateau, will continue to monitor Ariane Tovar MD 10/16/2017 12:04 PM Previous Version Renee Olivo, Pharmacist 10/16/2017 2:10 PM Signed PHARMACY VANCOMYCIN DOSING NOTE Patient Name: Jose Gustafson Admission Date: 10/07/2017 Date of Consult: 10/16/2017 Time of Consult: 14:10 PM Indication: Source Unknown; empiric Goal Range: 10-20 mcg/mL RECOMMENDATIONS/PLAN: Pharmacy consulted for vancomycin dosing for Jose Gustafson, a 52 year old, male who is being treated with vancomycin for empiric coverage. 1. Patient is currently ordered Vancomycin 1.25 g IV q24h. Today is day 9 of therapy. 2. The most recent vancomycin level was 10.9 mcg/mL drawn at 0828 on 10/11. This is a 36 hour level on the 4 day of therapy. 3. The present dose of vancomycin is the recommended dosage for this patient at this time. Continue therapy as prescribed. 4. The next vancomycin level will be ordered for 10/17 unless clinically indicated sooner. (Pharmacy will order) We will follow patient renal function, vancomycin levels and doses with you during the course of therapy. Additional recommendations will appear in follow up notes. If you have any questions, please contact Renee Olivo, Pharmacist at pager [phone]. Age: [age] year old Allergies: ALLERGIES Allergen Reactions - Cats - Grass Pollen Itching Last 3 Encounter Wt Readings: Date: Wt: 10/07/2017 90.9 kg (200 lb 6.4 oz) 09/07/2017 84.6 kg (186 lb 6.4 oz) 08/24/2017 83.5 kg (184 lb) Last 1 Encounter Ht Readings: Date: Ht: 10/07/2017 182.9 cm (6') CrCl: 48.8 mL/min Temp (24hrs), Av.6 ?C (101.5 ?F), Min:38.4 ?C (101.1 ?F), Max:39 ?C (102.2 ?F) - Current Temp: 38.4 ?C (101.1 ?F) Labs BUN (mg/dL) Date Value 10/16/2017 64 (H) 10/15/2017 59 (H) 10/14/2017 45 (H) Creatinine (mg/dL) Date Value 10/16/2017 1.34 (H) 10/15/2017 1.72 (H) 10/14/2017 1.92 (H) WBC (k/uL) Date Value 10/16/2017 15.74 (H) 10/15/2017 12.21 (H) 10/14/2017 9.35 Vancomycin Levels: Vancomycin, result (ug/mL) Date Value 10/11/2017 10.9 10/09/2017 13.6 Lynda Pal (Metal Template Maker) Renee Olivo, Pharmacist Jeremy Harrington, RD LD [facility] 10/17/2017 1:18 PM Signed NUTRITION THERAPY REASSESSMENT SERVICE DATE: 10/17/2017 SERVICE TIME: 9:35 RECOMMENDED MALNUTRITION DIAGNOSIS: MODERATE PROTEIN-CALORIE MALNUTRITION In the context of Acute Illness or Injury based on: Insufficient Energy Intake: <75% for >7 days Subcutaneous Fat Loss: Mild Loss Muscle Loss Mild Loss NUTRITION CARE PLAN: Intervention: 1. Continue Impact Peptide @ 60 cc/hr (2160 kcal,135 g pro) 2. Recommend MVI w/ minerals Monitor and Evaluation: Goal: Meet >75% of estimated needs Discharge Nutrition Recommendations: To be determined Per HPI: 52 yo M pmhx 52 yo M with PMH HTN, Asthma, and hx of kidney stones who is transferred to [facility] for 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 10/08/2017??Total arch replacement with FET under [facility]CA 10/08/2017 Chest exploration / Evacuation of hematoma / Open chest with wound vac 10/10/2017 Chest opened with wound VAC placement (Attempt closure, but fail due to desaturation) 10/12/2017 Right decompressive hemicraniectomy for R MCA stroke and malignant cerebral edema 10/14/2017 Chest washout and closure ? Interval history: Remains intubated, sedated. TF resume, currently at goal. New lines overnight. Sending blood cultures. Likely plans for trach. ? Present Diet Order: Tube Feeds of Impact Peptide 1.5 @ 60 mL/hr + 150 mL flush 6x/day ? Enteral Access: NG Feeding Tube - Left Naris ? 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 Pt received 55% of needs yesterday. ? GI symptoms: unable to determine at this time ? Abdominal Exam: not assessed ? Is the patient having any pain that is interfering with oral/enteral intake? Unable to assess ANTHROPOMETRICS Height: 182.9 cm (6') Admission Weight: 85 kg (187 lb 6.3 oz) Current Weight: (bed scale is off) BMI 29.9 based on dry weight Weight hx: per epic, wt ~190s with minor fluctuations the last year. Admitted at 187#, 85 kg. Pt is now 220# (99.8 kg). IBW: 80.9 kg Dosing wt: 85 kg Estimated kilocalorie needs: 1782-0414 kilocalories determined by 20-25 kcal/kg Estimated protein needs: 110-144 grams determined by 1.3-1.7 g/kg Dosing weight NUTRITION FOCUSED PHYSICAL EXAM: Subcutaneous Fat Loss Orbital Mild Triceps Moderate Mid-axillary at the iliac crest Unable to determine at this time Muscle Loss Locations: Temporalis Mild Pectoralis Mild Deltoids No muscle loss Interosseous Unable to determine at this time Latissimus dorsi, trapezius Unable to determine at this time Quadriceps Moderate Gastrocnemius Mild Potential micronutrient deficiency revealed in: Unable to determine at this time Edema: No Ascites: No Assessment of Functional Status: Functional capacity is unrelated to nutrition status Temperature Max in 24 hours: Temp (24hrs), Av.4 ?C (99.3 ?F), Min:36.8 ?C (98.2 ?F), Max:38.4 ?C (101.1 ?F) BP 152/83 Pulse (!) 134 Temp 37.4 ?C (99.3 ?F) Resp 22 Ht 182.9 cm (6') Wt 99.8 kg (220 lb 0.3 oz) SpO2 95% BMI 29.84 kg/m2 Recent Labs 10/17/17 0128 GLUC 128* BUN 59* CREAT 1.26* NA 163* K 4.2 CHLOR 131* CO2 23 ALB 3.0* HB 9.2* HCT 30.8* WBC 17.21* Potential Signs of Inflammation: leukocytosis, hypoalbuminemia, hyperthermia, tachycardia, imaging studies and clinical condition (s/p multiple operations in past week, sepsis) Pertinent Meds: fentanyl, lasix, levo, protonix, senna, heparin, propofol ALLERGIES Allergen Reactions - Cats - Grass Pollen Itching Pressure Injury 10/08/17 1121 Lip - Lower (Active) Main Joaquin Units Operating Room 10/10/2017 9:00 AM Stage Injury Mucous Membrane 10/16/2017 7:30 AM Number of days:8 MNT Billing Type: Re-assess/15 min 4 units SIGNATURE: Hilda Arce RN PATIENT NAME: Jose Gustafson DATE: October 17, 2017 TIME: 6:27 AM PAGER: [phone] NUTRITION THERAPY: TEACHING DIETITIAN NOTE OF PERSONAL INVOLVEMENT OF CARE. I have reviewed the progress note obtained and documented by the recruitment intern. I have discussed the case and management of the patient?s nutrition therapy with the recruitment intern. The following comments revise or confirm relevant curry components of the recruitment intern?s note. Jeremy Harrington, MS, RD, LD, CNSC Pager: [phone] Previous Version Ariane Tovar MD 10/17/2017 8:28 AM Signed [facility] Progress Note Name: Jose Gustafson COORDINATION OF CARE NOTE: Indication for Surgery: Spontaneous Rupture of Aorta LVEF: Normal RVF: Normal Important/Relevant PMH/PSH: HTN, asthma, hx kidney stones Preoperative Hospital Course (narrative): 52 yo M with PMH HTN, Asthma, and hx of kidney stones who is transferred to [facility] for 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 Hypotension, cardiac insufficiency on norepinephrine, vasopressin, and epoprostenol. Returned to OR 10/08 for exploration and large amount of clots were removed but no active bleeding. Chest closure attempted 10/10 but failed 2/2 desaturation. Early AM 10/11 2 CLOT for left sided weakness. CTH with large large right MCA infarct with associated mass effect. Repeat imaging with evolution of R MCA infarct with increased edema now s/p right decompressive hemicraniectomy per Neurosurgery on 10/12. Issues to communicate at signout: OPEN CHEST - plan for closure 10/14 New RT sided MCA CVA s/p right decompressive hemicraniectomy: Continue 3% for cerebral edema, maintain Na 145-155; keppra 750 mg bid x 2 weeks per neuro: okay to resume ASA 10/13; SQH 10/04 - on hold until after chest closure OTHER PROBLEMS I MANAGED DURING THIS ENCOUNTER: Problem Postoperative Hypotension A/P - Continue current regimen of norepinephrine and vaso but keep MAP > 80 mm Hg for neuro protection 10/17/2017 on levo will wean for MAP > 80 Acute Ischemic Right Mca Stroke (Hcc) New L sided weakness 10/11; CTH with large R MCA infarct with associated mass effect. Repeat imaging with evolution of R MCA infarct with increased edema 10/12/2017 - Right decompressive hemicraniectomy for R MCA stroke and malignant cerebral edema A/p - continue hypertonic saline for goal Na 145-155 - resume ASA after chest closure; - Permissive hypertension as able; goal map >80 - keppra 750 mg bid x 2 weeks 10/14/2017 S/p decompressing craniotomy last saturday10/15/2017 followed simple command 10/16/[address] yesterday no changes 10/17/2017 EEG since yesterday neuro following Moderate Protein-Calorie Malnutrition (Hcc) A/p - corpak attempted x 2, unsuccessful. Will consult procedure team for assistance after chest closure. 10/14/2017 will try again today and consult GI if not successful 10/17/2017 tolerating TF Leukocytosis on vanco and cipro, will change lines today SUBJECTIVE INTERVAL HISTORY: A fib/ RVR PERTINENT REVIEW OF SYSTEMS: See Assessment and Plan. Remaining ROS reviewed and negative. PHYSICAL EXAM AND PERTINENT DATA: Infusions: Fentanyl Insulin Norepinephrine Propofol Vital Signs: BP 152/83 Pulse (!) 134 Temp 37.2 ?C (99 ?F) (Oral) Resp (P) 27 Ht 182.9 cm (6') Wt 99.8 kg (220 lb 0.3 oz) SpO2 95% BMI 29.84 kg/m2 Neuro: Sedation Cardiovascular: Rate:atrial fibrillation / atrial flutter converted to SR with DCC MAP: 66 mm Hg CVP: 16 mm Hg Pulmonary: Breath sounds equal and Diminished breath sounds, at the bases Ventilator: Intubated: SPCV; FiO2: 40%; PEEP: 10; Not ready for weaning; HOB elevated 40 degrees: Yes; Oral care with chlorhexidine: Yes; Was sedation turned off? No: Why? neuro status Recent Labs 10/17/17 0450 10/17/17 0126 10/16/17 2320 PH 7.35 7.35 7.38 PCO2 40 42 40 PO2 110* 82* 122* HCO3 22 22 23 O2HB 97 94* 96 LACT 1.4 1.4 1.4 CXR Findings: Atelectasis Bilateral and CXR personally viewed and interpreted by ICU staff Physician Gastrointestinal: Abdominal: Soft, Non-tender and Bowel sounds yes Recent Labs 10/17/1712710/16/170 10/15/17 0005 TPROT 5.7* 5.8* 5.7* ALB 3.0* 3.1* 3.1* ALKPHOS 78 61 52 TBILI 8.3* 8.9* 8.0* AST 111* 81* 59* ALT 105* 85* 96* Heme: Recent Labs 10/17/1712710/16/17 0120 10/15/17 0005 WBC 17.21* 15.74* 12.21* HB 9.2* 9.2* 8.8* HCT 30.8* 29.7* 27.6* PLT 252 219 172 Endocrine: Renal: Stable Intake/Output Summary (Last 24 hours) at 10/17/17 0659 Last data filed at 10/17/17 0630 Gross per 24 hour Intake 3614 ml Output 6290 ml Net -2676 ml Recent Labs 10/17/1712710/16/17199910/16/17 1605 10/16/17 0120 10/15/17 0005 NA 163* 162* 162* < > 161* < > 161* K 4.2 -- -- -- 4.4 -- 4.2 CHLOR 131* -- -- -- 127* -- 123* CO2 23 -- -- -- 25 -- 25 BUN 59* -- -- -- 64* -- 59* CREAT 1.26* -- -- -- 1.34* -- 1.72* GLUC 128* -- -- -- 147* -- 137* < > = values in this interval not displayed. Recent Labs 10/17/1712710/16/17 0120 10/15/17 0005 CA 8.3* 8.2* 8.0* Drug Blood Levels: I have discussed the case and the plan and management of the patient's care with the primary surgical team and consulting services, the bedside nurse and the respiratory therapist. SIGNATURE: Ariane Tovar MD DATE of SERVICE: 10/17/2017 TIME of SERVICE: 7:45 AM I gave my full attention and provided critical care time for 32 minutes, exclusive of separately billable procedures and treating other patients. I examined the patient and directed decision making. This was necessary to treat or prevent imminent deterioration of the following condition(s) Respiratory failure, Circulatory failure and Central nervous system failure or compromise. S/p Arch replacement complicated by Right MCA CVA requiring decompression craniotomy during the weekend EEG monitoring, Neuro follwoing vent dependent, unable to wean due to neuro status hypotension on levo will wean for MAP > 80 A fib last night cardioverted to SR hypernatremia increased water flushes, will increase the frequency acute blood loss anemia stable will monitor high Bili, plateau, will continue to monitor nutrition tolerating TF Ariane Tovar MD 10/17/2017 8:18 AM Klaudia Garces MD 10/17/2017 8:42 AM Signed [facility] Procedure Note Name: Jose Gustafson Informed Consent The patient was incapable of consenting to the procedure due to incapacity, and the legal authorization representative was unable to be contacted in a timely manner due to clinical urgency. The nature of the urgency was sepsis. [place] Protocol / Safety Checklist The sign in communication was completed. Time Out Date of Time Out: 10/17/2017 Time of Time Out: 8:41 AM The procedural team confirmed the correct patient, the correct procedure and the correct site during the audible time out. The time out was affirmed. The sign out discussion was completed. Procedure: Central Venous Line Insertion Indication: Venous access Insertion Type: New stick Site: Left subclavian vein Inserted By: CTA attending physician [facility] Central Line Insertion checklist, attached to the Central Line-Associated Bloodstream Infection Prevention Policy, was utilized during this procedure. All personnel involved with the procedure used caps, masks with eye elizabeth, sterile gowns and sterile gloves. The area was prepped with chlorhexidine gluconate and draped with a full-body sterile drape following the usual aseptic technique. Anesthesia was obtained with local infiltration of 1% lidocaine. The vessel was cannulated under direct ultrasound visualization with a 6.35 cm, 18 gauge single lumen catheter on the first attempt. A J-tipped spring wire was passed into the vein through the indwelling catheter and left in situ while the catheter was removed. A small skin incision was made and the tract was dilated with a semi-rigid tissue dilator. A 20 cm quad-lumen, 8.5 Fr, non-tunneled, pressure injectable, antimicrobial catheter was advanced over the guidewire and left in situ while the guidewire was removed. All ports were capped with sterile site caps, venous blood was aspirated from all ports and all ports were flushed with sterile saline solution. An antimicrobial-impregnated protective disk was placed around the catheter, the catheter was secured in place at 20 cm with sterile sutures and a sterile, transparent, occlusive dressing was placed over the site. A portable CXR was ordered. All catheters, needles and wires were accounted for and intact. The patient tolerated the procedure without apparent complications. Performed by: Kaykay Dominguez MD Signature: Klaudia Garces MD Date of Procedure: 10/17/2017 Time of Procedure: 8:42 AM Klaudia Garces MD 10/17/2017 8:52 AM Signed [facility] Procedure Note Name: Jose Gustafson Informed Consent The patient was incapable of consenting to the procedure due to incapacity, and the legal authorization representative was unable to be contacted in a timely manner due to clinical urgency. The nature of the urgency was sepsis/hypotension. [place] Protocol / Safety Checklist The sign in communication was completed. Time Out Date of Time Out: 10/17/2017 Time of Time Out: 8:49 AM The procedural team confirmed the correct patient, the correct procedure and the correct site during the audible time out. The time out was affirmed. The sign out discussion was completed. Procedure: Arterial Line Insertion Indication: Suspected or confirmed catheter infection Insertion Type: New stick Site: Left brachial artery Inserted By: CTA attending physician All personnel involved with the procedure used masks and sterile gloves. The area was prepped with chlorhexidine gluconate and draped with a sterile drape following the usual aseptic technique. Anesthesia was obtained with local infiltration of 1% lidocaine. The vessel was cannulated under direct ultrasound visualization with a 4.45 cm, 20 gauge catheter on the first attempt. A 33 cm straight-tipped spring wire was passed into the artery through the indwelling catheter and left in situ while the catheter was removed. A 12 cm, 20 gauge catheter was advanced over the guidewire and left in situ while the guidewire was removed. Pulsatile blood flow exited the catheter and an arterial waveform was noted on the monitor when the catheter was transduced. The catheter was secured in place with tape and a sterile, transparent, occlusive dressing was placed over the site. All catheters, needles and wires were accounted for and intact. The patient tolerated the procedure without apparent complications. Signature: Klaudia Garces MD Date of Procedure: 10/17/2017 Time of Procedure: 8:50 AM Performed by Kaykay Barrera MD 10/17/2017 12:07 PM Signed [facility] THORAC[facility] SURGERY CONSULT NOTE Jose Gustafson [phone] Requesting Provider: Critical Care Cardiothoracic Physician: Liana Casillas MD Admit Date: 10/07/2017 LOS : 10 Chief Complaint: Difficult to wean from MV HPI: (document at least 4 of these elements) Location: Tracheostomy Quality: chronic Severity: moderate PAST MEDICAL HISTORY: PAST MEDICAL HISTORY Diagnosis Date - Acute kidney injury (HCC) 10/09/2017 - History of kidney stones - Hypertension - Stroke (cerebrum) (HCC) 10/11/2017 - Unspecified asthma(493.90) PAST SURGICAL HISTORY: PAST SURGICAL HISTORY Procedure Laterality Date - COLONOSCOP W/ OR W/O RUST SPEC 08/23/2014 Colonoscopy - LITHOTRIPSY EXTRACORP SHOCK WAVE(ESWL) 18 months ago - PAST SURGICAL HISTORY OF 2012 left ankle ORIF- hardware - PAST SURGICAL HISTORY OF 2012 ORIF left wrist - hardware - REMOVAL OF HEEL SPUR 2002, 2004 Bilateral - REPAIR ING HERNIA,5+Y/O,REDUCIBL Hernia repair, inguinal, as FAMILY HISTORY: FAMILY HISTORY Problem Relation Age of Onset - Stroke Father age 48 of CVA - Asthma Paternal Grandfather SOCIAL HISTORY: Social History Substance Use Topics - Smoking status: Light Tobacco Smoker Types: Cigars - Smokeless tobacco: Never Used - Alcohol use 6.0 oz/week 4 Cans of Beer (12oz) per week MEDICATIONS: Prior to Admission Medications: cetirizine-pseudoephedrine (ZYRTEC-D) 5-120 mg per tablet Take 1 tablet by mouth twice daily as needed. fluticasone (FLONASE) 50 mcg/actuation nasal spray Use 1 [address] [place] in each nostril once daily. Lactobacillus acidophilus (FLORAJEN) 460 mg (20 billion cell) cap Take 1 capsule by mouth once daily. fluticasone-vilanterol (BREO ELLIPTA) 200-25 mcg/dose inhaler Inhale 1 Inhalation as instructed once daily. Inhale one puff once daily. DO NOT CLICK OPEN UNTIL READY FOR DOSE lisinopril (ZESTRIL, PRINIVIL) 5 mg tablet Take 1 tablet by mouth once daily. ALLERGIES: ALLERGIES Allergen Reactions - Cats - Grass Pollen Itching Chemical Exposure: No Asbestos Exposure No COMPLETE REVIEW OF SYSTEMS Constitutional: No weight loss, malaise or fevers. HEENT: Negative for frequent or significant headaches Resp: Negative for cough, wheezing, or shortness of breath Cardiovascular: Negative for chest pain, leg swelling or palpitations GI: Negative for abdominal discomfort, blood in stools or black stools or change in bowel habits : No history of dysuria, frequency, or incontinence Musculoskeletal: Negative for joint pain or swelling, back pain or muscle pain Endo: Negative for cold or heat intolerance, polyuria, polydipsia and goiter Neurologic: No history or headaches, syncope, paralysis, seizures or tremors Integumentary: Negative for lesions, rash, and itching. Pain: Negative for pain, history of chronic pain, or current treatment for a chronic pain condition Additional systems reviewed: No additional systems reviewed Unable to complete: Patient intubated, sedated and unable to respond PHYSICAL EXAM Constitutional: Well developed HEENT: PERRLA Resp: Clear Cardiovascular: Regular rate AND rhythm GI: Soft Integumentary: Warm Musculoskeletal: No deformities Neurological/Psychiatric: No gross focal neurologic deficits Additional systems reviewed: No additional systems reviewed DATA: Laboratory: Recent Labs 10/17/17 0128 10/16/17 0120 10/15/17 0005 WBC 17.21* 15.74* 12.21* HB 9.2* 9.2* 8.8* HCT 30.8* 29.7* 27.6* PLT 252 219 172 Recent Labs 10/17/17 0913 10/17/17 0128 10/16/17199910/16/17 0120 10/15/17 0005 NA 165* 163* 162* < > 161* < > 161* K -- 4.2 -- -- 4.4 -- 4.2 BUN -- 59* -- -- 64* -- 59* CREAT -- 1.26* -- -- 1.34* -- 1.72* GLUC -- 128* -- -- 147* -- 137* < > = values in this interval not displayed. Radiology: Chest-XRay: Lines, tubes, and devices: ?The tip of the ET tube is 7 cm proximal to the lexx. ?Feeding tube courses below the diaphragm. ?Tip of right IJ introducer sheath is near the confluence of the brachiocephalic veins. ? Mediastinal drainage tubes and bilateral thoracostomy tubes remain in place. Lungs and pleura: ?There are small bilateral pleural effusions with associated bibasilar atelectasis. ?A thin-walled, circumscribed lucency overlies the left lung base; differential considerations include a loculated pneumothorax versus an emphysematous bulla. ?There is symmetric biapical pleural thickening, likely postinflammatory in nature. Cardiomediastinal silhouette: ?Stable cardiomediastinal silhouette. ? Status post median sternotomy and endovascular stent grafting of the thoracic aorta. ?The heart size is within normal limits. I have personally reviewed the following images/data: Chest X-ray Impression: 52 yo with aortic ruputure s/p Total arch replacement with FET; OR course c/b coagulopathy/bleeding requiring massive resuscitation - chest left open. Hypotension, cardiac insufficiency on norepinephrine, vasopressin, and epoprostenol. Returned to OR 10/08 for exploration and large amount of clots were removed but no active bleeding. Chest closure attempted 10/10 but failed 2/2 desaturation. Early AM 10/11 2 CLOT for left sided weakness. CTH with large large right MCA infarct with associated mass effect. Repeat imaging with evolution of R MCA infarct with increased edema now s/p right decompressive hemicraniectomy per Neurosurgery on 10/12. Thoracic surgery service was consulted regarding Tracheostomy. Plan: - Patient was reviewed and examined. - Tube feed on hold for tracheostomy procedure later on today. - Consent obtained from at bedside. - D/W CTS Staff: Dr. Casillas. Niraj Barrera MD Cardiothoracic Surgery Pager : [phone] Stephen Corey 10/17/2017 2:16 PM Signed PHARMACY VANCOMYCIN DOSING NOTE Patient Name: Jose Gustafson Admission Date: 10/07/2017 Date of Consult: 10/17/2017 Time of Consult: 1:51 PM Indication: Source Unknown; empiric Goal Range: 10-20 mcg/mL RECOMMENDATIONS/PLAN: Pharmacy consulted for vancomycin dosing for Jose Gustafson, a 52 year old, male who is being treated with vancomycin for empiric coverage. 1. Patient is currently ordered Vancomycin 1.25 g IV q24h. Today is day 10 of therapy. 2. The most recent vancomycin level was 6 mcg/mL drawn at 1136 on 10/17. This is a 23.5 hour level on the 10th day of therapy. 3. Will increase vancomycin to 1.25 g with a dosing interval of q12h. 4. The next vancomycin level will be ordered for Saturday, 10/20 unless clinically indicated sooner. (Pharmacy will order) We will follow patient renal function, vancomycin levels and doses with you during the course of therapy. Additional recommendations will appear in follow up notes. If you have any questions, please contact Renee Olivo Pharmacist at pager [phone]. Age: [age] year old Allergies: ALLERGIES Allergen Reactions - Cats - Grass Pollen Itching Last 3 Encounter Wt Readings: Date: Wt: 10/07/2017 99.8 kg (220 lb 0.3 oz) 09/07/2017 84.6 kg (186 lb 6.4 oz) 08/24/2017 83.5 kg (184 lb) Last 1 Encounter Ht Readings: Date: Ht: 10/07/2017 182.9 cm (6') CrCl: 83 mL/min Temp (24hrs), Av.6 ?C (99.6 ?F), Min:36.9 ?C (98.4 ?F), Max:38.4 ?C (101.1 ?F) - Current Temp: 38.3 ?C (100.9 ?F) Labs BUN (mg/dL) Date Value 10/17/2017 59 (H) 10/16/2017 64 (H) 10/15/2017 59 (H) Creatinine (mg/dL) Date Value 10/17/2017 1.26 (H) 10/16/2017 1.34 (H) 10/15/2017 1.72 (H) WBC (k/uL) Date Value 10/17/2017 17.21 (H) 10/16/2017 15.74 (H) 10/15/2017 12.21 (H) Vancomycin Levels: Vancomycin, result (ug/mL) Date Value 10/17/2017 6.0 10/11/2017 10.9 Lynda Castro (Metal Template Maker) Renee Olivo, Pharmacist Previous Version SCARLETT Qiu 10/17/2017 2:37 PM Signed CARE MANAGEMENT PROGRESS NOTE SERVICE DATE: 10/17/2017 SERVICE TIME: 2:00 PM LOS: 10 days Needs Prior to Discharge: To Be Determined Sw spoke with pt's spouse, Dana, and dtr at the bedside; introduced self and explained role. Sw provided active listening and emotional support as Dana spoke about how the family is currently coping, stating that they are doing alright and are a good support for each other. Dana is aware that this sw will continue to be available. Sw will continue to follow for emotional support and to assist as needed and as able. SIGNATURE: SCARLETT Qiu PATIENT NAME: Jose Gustafson DATE: October 17, 2017 TIME: 2:31 PM PAGER/CONTACT #: [phone] Freedom Benton MD 10/17/2017 2:46 PM Incomplete INFECTIOUS DISEASE NEW CONSULT NOTE SERVICE DATE: 10/17/2017 SERVICE TIME: Patient is sent at the request of Dr Mckenzie for my opinion regarding post op leukocytosis possible infecton. My final recommendations will be communicated back to the requesting physician by way of shared Medical Record examined sedated so history from and mom at bedside chart and images reviewed >45 minuts Freedom Benton MD Subjective CHIEF COMPLAINT: elevated wbc Jose Gustafson 52 year old male . 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 New type of pain . Went to ED and evaluation was negative and sent home. Within 24 hours pain worsened and eventually collapsed in front of . Taken back to ED and CT chest showed Type A dissection ? He was life flighted to [facility] and admitted Aortic dissection from mid arch to descending thoracic aorta. Hospital course as below: - 10/07/17 Total Arch replacement. 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 C/b mild hypotension requiring continued pressors and bleeding s/p multiple blood products in OR. Chest unable to be closed during surgery. - 10/08/17. Chest exploration w/ hematoma evacuation. Chest continued to be open - 10/10/17 Chest washout w/ wound vac. Chest still open. Pt remained on multiple pressors (epi, levo, phenyl) and intubated. ?2CLOT called after nursing noted patient to not be moving his LUE and LLE to command or stim. Pt was reportedly moving all ext / at 5pm on 10/10/17. ?.CTHead with large large right MCA infarct with associated mass effect. Repeat imaging with evolution of R MCA infarct with increased edema now s/p right decompressive hemicraniectomy per Neurosurgery on 10/12. Subsequently had chest closed on 10/14. Was less responsive past 24 hours and elevated wbc Had been on empiric vancomycin and ciprofloxacin since admission zosyn added today. I am asked to comment Per no one sick at home, no allegies ? PAST MEDICAL HISTORY Diagnosis Date - Acute kidney injury (HCC) 10/09/2017 - History of kidney stones - Hypertension - Stroke (cerebrum) (HCC) 10/11/2017 - Unspecified asthma(493.90) PAST SURGICAL HISTORY Procedure Laterality Date - COLONOSCOP W/ OR W/O RUST SPEC 08/23/2014 Colonoscopy - LITHOTRIPSY EXTRACORP SHOCK WAVE(ESWL) 18 months ago - PAST SURGICAL HISTORY OF 2012 left ankle ORIF- hardware - PAST SURGICAL HISTORY OF 2012 ORIF left wrist - hardware - REMOVAL OF HEEL SPUR 2002, 2004 Bilateral - REPAIR ING HERNIA,5+Y/O,REDUCIBL Hernia repair, inguinal, as infant Social History Marital status: Spouse name: Years of education: Number of children: Social History Main Topics Smoking status: Light Tobacco Smoker Packs/day: 0.00 Years: 0.00 Types: Cigars Smokeless status: Never Used Alcohol use: Yes 6.0 oz/week 4 Cans of Beer (12oz) per week Drug use: No Sexual activity: Yes Partners with: Female FAMILY HISTORY Problem Relation Age of Onset - Stroke Father age 48 of CVA - Asthma Paternal Grandfather Immunization History Administered Date(s) Administered Influenza Seasonal Inj Quadrivalent Age 3+ 04/27/2015 06/18/2016 05/06/2017 Pneumovax 07/28/2014 Tdap (Age 7+) 07/28/2014 ALLERGIES Allergen Reactions - Cats - Grass Pollen Itching Recent Travel: No [place]idence[place] Water Supply: [facility] Family Members Currently Living in the Home: 2 children Pets in the Home: No pets in the home. Review of Systems: as above per Objective Physical Exam: GENERAL APPEARANCE: Patient in no acute distress, well appearing. SKIN: Skin color, texture, turgor normal. No rashes or lesions. HEAD/SINUSES: No significant findings. EYES: PERRLA, EOMI, conjunctivae clear, fundi benign. EARS: External ears normal. Canals clear. TM's normal. NOSE: Nares normal. Septum midline. OROPHARYNX: Lips, mucosa, and tongue normal. Teeth and gums normal. Oropharynx normal. NECK: Supple, full range of motion, no lymphadenopathy, normal thyroid, no carotid bruits, no JVD. BACK: Back symmetric, normal curvature, ROM normal, no CVAT. LUNGS: Normal breath sounds, clear to auscultation, percussion normal, no wheezes, or crackles. HEART: Normal PMI, Regular rate/rhythm, normal heart sounds, and no murmurs. ABDOMEN: Soft, non tender, no palpable masses, normal bowel sounds, no abdominal bruits, No hepatosplenomegaly. EXTREMITIES: No edema or tenderness: NEURO: Awake, alert and oriented x3, cranial nerves II-XII grossly intact, reflexes symetrical, normal gait, no involuntary motions. LABS: CBC: Lab Results Component Value Date HB 9.2 10/17/2017 HCT 30.8 10/17/2017 WBC 17.21 10/17/2017 AutoDiff: Lab Results Component Value Date RBC 3.16 10/17/2017 MCV 97.5 10/17/2017 MCH 29.1 10/17/2017 MCHC 29.9 10/17/2017 RDWCV 16.6 10/17/2017 PLT 252 10/17/2017 MPV 11.0 10/17/2017 UA: Lab Results Component Value Date PH 7.41 10/17/2017 CMP: Lab Results Component Value Date ALB 3.0 10/17/2017 CA 8.3 10/17/2017 TBILI 8.3 10/17/2017 ALKPHOS 78 10/17/2017 AST 111 10/17/2017 GLUC 128 10/17/2017 BUN 59 10/17/2017 CREAT 1.26 10/17/2017 NA 165 10/17/2017 K 4.2 10/17/2017 CHLOR 131 10/17/2017 CO2 23 10/17/2017 ANION 9 10/17/2017 ALT 105 10/17/2017 Specimen originated from [facility] Specimen #: [id number] Submitting Physician: ARPIT MCKENZIE M.D. 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 See comment. micro blood cx 10/17 NGTD Impression/Recommendations SIGNATURE: Freedom Benton MD PATIENT NAME: Jose Gustafson DATE: October 17, 2017 TIME: 2:37 PM PAGER/CONTACT #: [phone] Anna Souza RN 10/17/2017 3:12 PM Signed CARE MANAGEMENT PROGRESS NOTE SERVICE DATE: 10/17/2017 SERVICE TIME: 3:08PM LOS: 10 days Needs Prior to Discharge: To Be Determined Per EMR; Remains intubated, sedated. TF resume, currently at goal.?New lines overnight. Sending blood cultures. Likely plans for trach. ?? Case Management will continue to follow patient for discharge needs/planning. SIGNATURE: Anna Souza RN PATIENT NAME: Jose Gustafson DATE: October 17, 2017 TIME: 3:06 PM PAGER/CONTACT #: [phone] CR-CHEST 1 VIEW Observed: 10/07/2017 Status: F Source: [place] (PORTABLE) IMPORT 12:00 AM [facility] REPOSITORY Images were obtained outside of [facility] [id number] SR-CTA ABDOMEN W/WO Observed: 10/07/2017 Status: F Source: [place] CONTRAST IMPORT 12:00 AM [facility] REPOSITORY Images were obtained outside of [facility] [id number] CR-CHEST 1 VIEW Observed: 10/07/2017 Status: F Source: [place] (PORTABLE) IMPORT 12:00 AM [facility] REPOSITORY Images were obtained outside of [facility] [id number] SR-CTA ABDOMEN W/WO Observed: 10/07/2017 Status: F Source: [place] CONTRAST IMPORT 12:00 AM [facility] REPOSITORY Images were obtained outside of [facility] [id number] SURGICAL PATHOLOGY Observed: 10/07/2017 Status: F Source: [place] 12:00 AM [facility] REPOSITORY Specimen originated from [facility] Specimen #: [id number] Submitting Physician: ARPIT MCKENZIE M.D. (F25) FINAL DIAGNOSIS Aorta, partial excision - Elastic-type artery with mild increase of mucopolysaccharide material in the media. See comment. ERR/db 10/09/2017 COMMENT Microscopic examination shows an elastic-type artery in which a Movat stain to characterize the connective tissue components of the vessel wall demonstrates mild increase of mucopolysaccharide material interspersed between the elastic lamellar units throughout the media. There is evidence of laminar necrosis with absent smooth muscle cells, but preserved elastic lamellar units in the middle third of the media. The adventitia is normal. The vasa vasorum are normal. Oswald Esquivel (L25) (Electronic Signature) SPECIMEN SUBMITTED A: AORTA CLINICAL DATA TYPE A DISSECTION GROSS DESCRIPTION A. Received in formalin, labeled as aorta, consists of three segments of large vessel aggregating to 6.0 x 5.0 x 1.0 cm. The adventitial surface is hemorrhagic, but otherwise unremarkable. No dissection plane is identified. The wall thickness measures up to 0.3 cm. The intima displays minimal fatty streaks. Manufacturing Sr Engineer sections are submitted in cassettes A1-A2. [place] [address] TN/lbk 10/08/2017 Date of Report: 10/09/2017 Date of Procedure: 10/07/2017 Date of Receipt: 10/08/2017 Submitted by: ARPIT MCKENZIE M.D. (F25) Location: J Diagnostic interpretation performed at [place] [address]. OPERATIVE NO Observed: 10/07/2017 Status: COMPLETED Source: [place] 12:00 AM [facility] REPOSITORY HNO ID: [id number] Author: Arpit Mckenzie Service: Cardiovascular Surgery Author Type: Physician Type: Operative Report Filed: 10/10/2017 1:57 PM Note Text: [place] [id number] [place] OPERATIVE REPORT DEPARTMENT OF THORACIC AND CARDIOVASCULAR SURGERY NAME: JOSE GUSTAFSON [facility] #: [id number] DATE: 10/07/2017 AGE: 52 SURGEON 1: Arpit Mckenzie M.D. SURGEON 2: CHISELER HEAD 1: Javier Dougherty M.D. CHISELER HEAD 2: No qualified residents were available to assist. ANESTHESIA: General. OPERATIONS: Median sternotomy, open heart, total arch replacement with # 26 Stent Graft Frozen elephant trunk under deep hypothermic circulatory arrest. 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 OPERATIVE INDICATIONS:Same OPERATIVE PROCEDURE: The patient was prepped and draped in the usual sterile fashion. Median sternotomy incision was made. We opened the chest and we opened the pericardium and we have a quite at least 300 mL of dark blood around the pericardium. We identified a large intramural hematoma of the ascending aorta. We exposed the right subclavian artery. We anastomosed Gelweave graft #8 under 5000 heparin with 5-0 prolene running suture technique, achieving a a really good back blood flow. Then, we full heparinazed and cannulated the SVC and IVC caval cannulas. We placed the patient on cardiopulmonary bypass as soon as ACT was more than 500 seconds. After full heparinization, I started cooling down the patient's body temperature and put ice pack on the head. As soon as we reached 20 degrees Celsius blood temperature, the SVC was snared and retrocerebral blood perfusion started. The systemic blood flow was turning down and circulatory arrest started , the aortic cross-clamp was released.Antegrade and retrograde blood cardioplegia every 15 minutes was administrated with arresting the heart. Then, we transected the ascending aorta. We identified all the roots structurally normal, so we gave antegrade cardioplegia through the coronary ostium. As soon as we opened the aorta, we identified the tear of the aorta at the greater curvature of the aortic arch between the innominate artery to the distal arch with a contained rupture of arch hematoma that was connected blood to the right chest, that was accumulated at least 2 L of blood and then we completely evacuated. We ended doing a #14 Gelweave Graft to the innominate trunk as well as the left caotid artery with 4-0 prolene running technique. This took 20 to 25 minutes for circulatory arrest. Then, we de- aired the neck vessels and we started giving antegrade flow through the right subclavian artery, antegrade flow to protect the brain around 800 mL/minute with a cool temperature. Then, we did an next anastomosis to the left subclavian artery 8 mm Gelweave graft . Then we did a Frozen elephant trunk with #26 stent graft without any complication. We sutured the elephant graft to the wall of the aorta with 4-0 Prolene running technique double layer and Andriy felt. Then, after that, we used a #26 Gelweave graft to reanastomosed the proximal descending aorta to the Gelweave graft including the suture line stent graft with 4-0 Prolene running suture technique. Then, after that, we connected the innominate 16 mm Gelweave graft of the neck vessel to the main aortic graft with 4- 0 Prolene running suture technique, and as soon as we finished the anastomosis, we de-aired the aorta and we opened and connected to the systemic circulation and we reassumed the systemic circulation and started rewarming the patient and the main graft was cross- clamped. Then, we connected the subclavian artery graft to the main aortic graft with 5-0 running suture technique and then we did the proximal anastomosis of the main graft to the proximal ascending aorta with 4-0 prolene running technique double layer, using bovine pericardial strip. After that, we de- aired the heart. Antegrade and retrograde cardioplegia hotel valet attendant was given. The aorticcross- clamp was released. We allowed for perfusion and coming off the pump with satisfactory hemodynamics when the body temperature reach 36 C. Protamine was given. The cannulas were removed. We waited for around 2 hours to control the oozing/coagulopathy. Then, as soon as we satisfied with hemodynamics, we decided to leave the chest open. Due to swelling of the mediastinal. We left the two mediastinal chest tubes, 2 pleural and 2 Blakes. We put the vacuum dressing. The patient tolerated very well the procedure and was transferred to the CVICU in stable condition. We came off the pump with a body temperature of 36.5 centigrade. CHARGE HAND was Dameon Munroe. START OF OPERATION: 3:19 p.m. FINISH OF OPERATION: 12:26 a.m. ESTIMATED BLOOD LOSS: 500 mL. DRAINS:2 mediastinal, 2 chest tubes, 2 Blakes SPECIMENS: Aorta. Arpit Mckenzie M.D. JN:[id number] Revised [facility] 10/09/17 /[id number] cc: EMERGENCY DEPARTMENT Observed: 10/06/2017 Status: F Source: [place] SUMMARY 5:[address] [facility] REPOSITORY [facility] Medical Records Department [address] [place] [address] Emergency Department Summary 10/06/17 1440 MR#: [id number] Acct: [id number] Name: JOSE GUSTAFSON Jr. Rep #: [id number] : 1965 52 From: Soniya Jon DO PCP: Kirit NAQVI,Kaykay Status: REG ER - ER Visit Summary Date of Service: 10/06/17 Chief Complaint: [] Chest pain History of Present Illness: The patient is a 52 M [] complaining of chest pain in the midsternal area starting approximately 5 hours ago. Reports symptoms started when he was eating breakfast. Reports feeling bubble sensation in his chest. Denies shortness of breath. Denies abdominal pain. Denies nausea/vomiting. Denies diaphoresis. Physical Examination: [] Afebrile, vital signs stable. 52-year-old male in no acute distress. Conversational. Cardiovascular exam is regular rate and rhythm. Lungs are clear to auscultation. Abdomen is soft and nontender. No lower extremity edema. Test Results: [] EKG shows normal sinus rhythm rate of 66 without ischemic changes or ectopy. CBC, BMP, troponin #1 negative. #2 negative. EKG #2 shows normal sinus rhythm, rate of 63 without ischemia or ectopy. Chest x-ray: Negative. Emergency Department Course and Treatment: [] The patient was evaluated for atypical symptoms of chest pain. Initial testing was negative. Patient reports his symptoms started 5 hours prior to arrival. He has been here now approximately 3 and half hours. His first round and second round of evaluation were negative. 2 very normal-appearing EKGs. He represents low risk. His TAHIRA score is 0. Treatment Plan: [] Patient was instructed to follow-up with his primary care physician and coordinate an outpatient stress test. Disposition: [] Discharge, stable. Impression: [] Chest pain This note was generated with First Insightation software. It may contain incorrect words, spelling, and punctuation that were not noted in review of the chart prior to signing ED Disposition - Plan for ED Patient: Chief Complaint: Chest Other Referrals: Kaykay Beth MD [Primary Care Provider] - What to do if you have Problems For any increased pain, shortness of breath, bleeding, nausea or vomiting, chest pain, or any unexpected problems, contact your Primary Care Provider. Call [facility] ([phone]) or report to the closest Emergency Room. Call 911 if necessary. 10/06/171712 <Electronically signed by Soniya Jon DO> Date Soniya Jon DO Cosigner Signature (If Indicated): Date CC: Kaykay Beth MD DISCHARGE INSTRUCTION Observed: 10/06/2017 Status: F Source: [place] 5:[address] [facility] REPOSITORY [facility] Medical Records Department [address] [place] [address] Discharge Instruction 10/06/171707 MR#: [id number] Acct: [id number] Name: JOSE GUSTAFSON Jr. Rep #: [id number] : 1965 52 From: Soniya Jon DO PCP: Kaykay Beth MD Status: REG ER ED Disposition - Plan for ED Patient: Disposition: Home or Assisted Living Chief Complaint: Chest Other Instructions: ED Chest Pain Atypical Unkn Cause Referrals: Kaykay Beth MD [Primary Care Provider] - What to do if you have Problems For any increased pain, shortness of breath, bleeding, nausea or vomiting, chest pain, or any unexpected problems, contact your Primary Care Provider. Call [facility] ([phone]) or report to the closest Emergency Room. Call 911 if necessary. 10/06/17 170 <Electronically signed by Soniya Jon DO> Date Soniya Manzanodelta DO Gillesigner Signature (If Indicated): Date CC: Kaykay Beth MD TROPONIN-I Collected: 10/06/2017 Status: F Source: [place] 4:[address] [facility] REPOSITORY Order Comment: 'TROP' Serial specimen #1, #2, #3, or #4: 2 TYPE CODE TESTS RESULT OUT OF RANGE REFERENCE UNITS LAB L501.4010 <0.06 ng/mL Normal < 0.02 TROPONIN-I Result Comment: TROPONIN-I EXPECTED VALUES <0.05 NEGATIVE 0.06 - 0.59 AT RISK OF MD > OR = 0.60 SUGGEST MD Performed By: #### L501.4010 #### [facility] [address] [place], [address] CBC W/DIFF, AUTOMATED Collected: 10/06/2017 Status: F Source: [place] 2:[address] [facility] REPOSITORY TYPE CODE TESTS RESULT OUT OF RANGE REFERENCE UNITS LAB L100.1000 4.4-11.0 K/mm3 Normal WBC 9.4 LAB L100.1200 4.6-6.2 M/mm3 Low RBC 4.33 LAB L100.1300 13.0-16.5 g/dl Normal HGB 14.1 LAB L100.1400 40-54 % Normal HCT 42.2 LAB L100.1500 80-94 fL High MCV 97.5 LAB L100.1600 27.0-32.0 pg High MCH 32.6 LAB L100.1700 32-36 g/gl Normal MCHC 33.4 LAB L100.1810 11.6-14.6 % Normal RDW CV 12.5 LAB L100.1820 35.1-43.9 fl High RDW SD 44.9 LAB L100.1900 150-450 K/mm3 Normal PLT 262 LAB L100.2000 6.2-12.0 fl Normal MPV 8.8 LAB L100.2100 47-70 % High NEUT% 83.0 LAB L100.2200 19-41 % Low LY% 12.7 LAB L100.2300 0-10 % Normal MONO% 3.5 LAB L100.2400 0-5 % Normal EO% 0.4 LAB L100.2500 0-1 % Normal BASO% 0.2 LAB L100.2550 0.0-0.9 % Normal IM GRAN % 0.200 Result Comment: IG% - Immature Granulocytes (promyelocytes, myelocytes and metamyelocytes) > 1% indicates that a LEFT SHIFT is Present. LAB L100.2620 2.0-7.7 X10 3/uL High Absolute Neut 7.8 LAB L100.2720 0.83-4.51 X10 3/ul Normal Absolute Lymph 1.20 Performed By: #### L100.0100 #### [facility] [address] [facility] [place], [place], [address] D-DIMER QUANTITATIVE Collected: 10/06/2017 Status: F Source: [place] (DVT/PE) 2:[address] [facility] REPOSITORY TYPE CODE TESTS RESULT OUT OF RANGE REFERENCE UNITS LAB L300.8000 0.27-0.49 FEU/ug/m Normal D-DIMER 0.35 QUANT Result Comment: NORMAL D-Dimer level (<0.50) indicates no DVT or PE. Performed By: #### L300.8000 #### [facility] [address] [place], [place], [address] BASIC METABOLIC Collected: 10/06/2017 Status: F Source: [place] PROFILE (BMP) 2:[address] [facility] REPOSITORY Order Comment: 'TROP' Serial specimen #1, #2, #3, or #4: 1 TYPE CODE TESTS RESULT OUT OF RANGE REFERENCE UNITS LAB L501.0100 74-106 mg/dL High GLU 150 Result Comment: Fasting Glucose result greater than or equal to 126 mg/dL suggests DIABETES MELLITUS per A.D.A. criteria. Please note revised GLUCOSE reference range effective 2017. LAB L501.1000 7-18 mg/dL Normal BUN 13 LAB L501.1100 0.70-1.30 mg/dL Normal CREAT,SERUM 0.85 Result Comment: The validity of the calculated GFR AND GFRAA in patients over 70 years has not been determined. Clinical correlation is essential. LAB L501.1110 >60 mL/min Normal EST GFR 100 Result Comment: Non- GFR Calc LAB L501.1115 >60 mL/min Normal EST GFR - AA 121 Result Comment: GFR Calc LAB L501.1255 ml/min Normal Estimated CRCL 110.31 LAB L501.1300 10-20 RATIO BUN/CRE Normal 15.3 LAB L501.2200 8.5-10 mg/dL Low .1 CA 8.3 LAB L501.5300 136-14 mmol/L 5 NA Normal 144 LAB L501.5600 3.5-5. mmol/L 1 K Normal 4.0 LAB L501.5900 98-107 mmol/L High CL 111 LAB L501.6100 21.0-3 mmol/L 2.0 CO2 Normal 27.0 LAB L501.6200 5-15 GAP Normal 6 Performed By: #### L500.2500, L501.4010 #### [facility] [address] [place], [address] TROPONIN-I Collected: 10/06/2017 Status: F Source: [place] 2:[address] [facility] REPOSITORY Order Comment: 'TROP' Serial specimen #1, #2, #3, or #4: 1 TYPE CODE TESTS RESULT OUT OF RANGE REFERENCE UNITS LAB L501.4010 <0.06 ng/mL Normal < 0.02 TROPONIN-I Result Comment: TROPONIN-I EXPECTED VALUES <0.05 NEGATIVE 0.06 - 0.59 AT RISK OF MD > OR = 0.60 SUGGEST MD Performed By: #### L500.2500, L501.4010 #### [facility] [address] [place], [address] CHEST PA AND LATERAL Observed: 10/06/2017 Status: F Source: [place] 2:[address] [facility] REPOSITORY [facility] Imaging Services [address] [place] [address] Chest PA and Lateral MR#: [id number] Acct: [id number] Name: JOSE GUSTAFSON Jr. Rep #: [id number] : 1965 M 52 From: Trudi Rodríguez MD PCP: Kaykay Beth MD Status: REG ER Study: Chest PA and Lateral Date of Exam: 10/06/17 Exam# [id number] Ordering Dr: Soniya Jon DO STUDY: X-RAY CHEST REASON FOR EXAM: Male, 52 years old. Chest pain and pressure TECHNIQUE: PA and lateral views of the chest. COMPARISON: None. FINDINGS: The lungs are clear and expanded. There is no demonstrated pleural abnormality. Normal size heart. Normal mediastinum and gianna. Normal visualized pulmonary arteries. Normal visualized aortic arch and descending thoracic aorta. Normal visualized thoracic spine. Normal visualized ribs, clavicles, and shoulders. There is no demonstrated abnormality of the visualized soft tissue structures of the upper abdomen. RAD/Chest PA and Lateral IMPRESSION: Normal x-ray examination of the chest. Electronically Signed: Trudi Rodríguez MD at 14:59 EDT Tel , Service support , CC: Kaykay Beth MD; Soniya Jon DO Silver Wrapper: Signed XR CHEST 2V FRONTAL/LAT Observed: 09/08/2017 Status: F Source: [place] 2:00 PM [facility] REPOSITORY * * *Final Report* * * DATE OF EXAM: Sep 08 2017 2:00PM WOX 5291 - XR CHEST 2V FRONTAL/LAT / PROCEDURE REASON: Cough * * * * Physician Interpretation * * * * EXAMINATION: CHEST RADIOGRAPH (2 VIEW FRONTAL and LATERAL) Clinical History: Cough M: XC2_4 Comparison: None RESULT: The heart is normal in size. There is no osman pulmonary consolidation, pleural effusion, pneumothorax, or pulmonary vascular redistribution. Degenerative changes are incidentally seen within the lower lumbar spine. IMPRESSION: No acute pulmonary process is identified. Silver Wrapper: PSCB Transcribe Date/Time: Sep 08 2017 2:08P Dictated by : ROSE GREWAL MD This examination was interpreted and the report reviewed and electronically signed by: ROSE GREWAL MD on Sep 08 2017 2:09PM EST [id number] Observed: 09/08/2017 Status: COMPLETED Source: [place] 1:54 PM [facility] REPOSITORY HNO ID: [id number] Author: Milady Thompson Service: (none) Author Type: (none) Type: Progress Notes Filed: 09/08/2017 2:00 PM Note Text: Radiology Service Progress Note PATIENT NAME: Jose Gustafson DATE OF SERVICE: September 08, 2017 TIME: 1:54 PM PATIENT IDENTITY VERIFICATION COMPLETED USING TWO (2) METHODS: Patient confirmed name verbally and Date of . PATIENT GENDER DATA: Male PATIENT RELEVANT IMPLANT DATA REVIEWED: Not Applicable RADIOLOGY DEPARTMENT: General X-ray: Exam(s) Completed: Chest X-Ray PERIPHERAL IV DATA: Not applicable SIGNED BY: Milady Thompson September 08, 2017 1:54 PM PROGRESS Observed: 09/07/2017 Status: COMPLETED Source: [place] 11:13 AM [facility] REPOSITORY HNO ID: [id number] Author: Joleen [place] Service: (none) Author Type: Physician Type: Progress Notes Filed: 09/07/2017 11:58 AM Note Text: Patient presents with: Cough: x 4 days-has been sick 4 times in the last 2 months HPI: Coughing for 2 months, worsened the last 4 days. Feeling sick Thurs/fri which he has not had as part of his cough recently, feels a little better today. Talking triggers cough. Coughed up a very thick mucus plug today. Positive symptoms: Cough, Shortness of breath, Wheezing, Chest tightness, Chest pain, Nasal Congestion, throat burning with cough or cold air, tired, Negative symptoms: Fever, Chills, OTC: zyrtec-d, flonase, ricola used to work but stopped helping this week. PAST MEDICAL HISTORY Diagnosis Date - History of kidney stones - Hypertension - Unspecified asthma(493.90) MEDICATIONS: Current Outpatient Prescriptions: cetirizine-pseudoephedrine (ZYRTEC-D) 5-120 mg per tablet Take 1 tablet by mouth twice daily as needed. fluticasone (FLONASE) 50 mcg/actuation nasal spray Use 1 [place] in each nostril once daily. Lactobacillus acidophilus (FLORAJEN) 460 mg (20 billion cell) cap Take 1 capsule by mouth once daily. fluticasone-vilanterol (BREO ELLIPTA) 200-25 mcg/dose inhaler Inhale 1 Inhalation as instructed once daily. Inhale one puff once daily. DO NOT CLICK OPEN UNTIL READY FOR DOSE lisinopril (ZESTRIL, PRINIVIL) 5 mg tablet Take 1 tablet by mouth once daily. benzonatate (TESSALON PERLE) 100 mg capsule Take 1-2 capsules by mouth three times daily as needed. No current facility-administered medications for this visit. ALLERGIES: ALLERGIES Allergen Reactions - Cats - Grass Pollen Itching VITALS: BP 124/80 Pulse 90 Temp 36.8 ?C (98.3 ?F) (Tympanic) Resp 20 Wt 84.6 kg (186 lb 6.4 oz) SpO2 96% BMI 25.28 kg/m2 PHYSICAL EXAM: GEN: mildly ill appearing HEENT: PERRL, EOMI, conjunctiva clear Ears: canals occluded by cerumen. Sinuses: non-tender frontal sinus, non-tender maxillary sinuses Throat: moist mucous membranes, mild erythema, no exudate Neck: supple, no thyromegaly, no lymphadenopathy HEART: regular rate and rhythm, no murmurs LUNGS: clear to auscultation, no wheezes or crackles, no increased WOB, intermittent cough. ASSESSMENT/PLAN: 1. Cough - ICD9: 786.2, ICD10: R05 (primary diagnosis) 2. Mild asthma without complication, unspecified whether persistent - ICD9: 493.90, ICD10: J45.909 - XR CHEST 2V FRONTAL/LAT - will return tomorrow when Xray should be operating. Treat for Mucus plugging, possible pneumonia. - DOXYCYCLINE MONOHYDRATE 100 MG CAPSULE Prednisone taper. Pulmonology or PCP follow up if symptoms continue. Joleen Boston MD PSA,TOTAL - ANNUAL Collected: 08/26/2017 Status: F Source: [place] SCREEN 3:[address] [facility] REPOSITORY TYPE CODE TESTS RESULT OUT OF RANGE REFERENCE UNITS LAB L501.9910 0.00-4.00 ng/mL Normal PSA,TOT 1.17 SCREEN Result Comment: This test was performed using the TPSA assay method for the [employer] system. Values obtained with different assay methods cannot be used interchangably. When changing PSA assays in the course of monitoring a patient, additional sequential testing should be carried out to confirm baseline values. Performed By: #### L501.9910 #### [facility] [address] [place], [address] ALLERGIES ALLERGIES DATE TYPE / CODE NAME / CODE REACTION SEVERITY SOURCE 08/04/2018 Drug grass Itching Unknown [facility] Allergy/4160 pollen/J139383 Hospital 45371(SNOMED 084(RXNORM) Repository CT) 08/04/2018 Drug cat Unknown Unknown [facility] Allergy/4160 dander/J890645 Hospital 37914(SNOMED 086(RXNORM) Repository CT) 10/06/2017 Drug No Known Unknown [facility] Allergy/4160 Allergies/F001 Hospital 18105(SNOMED 779036(RXNORM) Repository CT) 12/08/2012 DRUG GRASS POLLEN ITCHING [facility] INGREDI/[address] [place] [address](SNOMED Repository CT) 09/26/2009 Animal/86377 CATS [facility] 4006(SNOMED [address] [place] [address]) Repository NG/[id number] CATS [facility] (SNOMED CT) [facility] Repository NG/[id number] GRASS POLLEN [facility] (SNOMED CT) Health System Repository ENCOUNTERS ENCOUNTERS ADMIT/DISCHARGE ACCOUNT NUMBER ADMITTING ENCOUNTER LOCATION SOURCE CLASS 08/20/2018 [id number] Ambulatory [facility] ding:[facility] Repository 08/12/2018/08/12/19 [id number] Ambulatory BMSBuilding: [place] 19 BMS.[facility] Repository 07/24/2018/07/28/20 [id number] Ambulatory [address] Repository 07/19/2018/07/19/20 [id number] Ambulatory [address] Repository 07/19/2018/07/21/20 [id number] Ambulatory [address] Repository 07/14/2018/07/14/20 [id number] Ambulatory [address] Repository 07/01/2018/07/01/20 [id number] Ambulatory BMSBuilding: [place] 18 BMS.[facility] Repository 06/25/2018/06/25/20 [id number] Ambulatory [address] Repository 06/24/2018/06/24/20 [id number] Ambulatory [address] [place] Repository 06/24/2018/06/25/20 [id number] Ambulatory [address] [place] Repository 06/22/2018/06/22/20 [id number] Ambulatory [address] [place] Repository 06/22/2018/06/23/20 [id number] Ambulatory [address] [place] Repository 06/17/2018/06/18/20 [id number] Ambulatory [address] Repository 06/06/2018/06/06/20 [id number] Ambulatory [place] ding:SDCRoom Repository : AC05 05/21/2018 [id number] Ambulatory [facility] ding:RAD Repository 05/10/2018/05/13/20 [id number] Ambulatory [address] Repository 04/30/2018/05/01/20 [id number] Ambulatory [address] Repository 04/30/2018/05/07/20 [id number] Ambulatory [address] Repository 04/15/2018/04/19/20 [id number] [place]ant, Inpatient [place] 18 David Encounter [facility] ding:RURoom: Repository [id number]: 1 04/10/2018/04/15/20 [id number] Agyepong, Inpatient [place] 18 Luis Enrique Encounter [facility] ding:PCURoom Repository : [id number]: 1 04/10/2018 [id number] Agyepong, Ambulatory BMSBuilding: [place] Luis Enrique BMS..[facility] Repository 04/10/2018 [id number] Agyepong, Ambulatory BMSBuilding: [place] Luis Enrique BMS.[facility] Repository 04/10/2018 [id number] Agyepong, Ambulatory BMSBuilding: [place] Luis Enrique BMS.[facility] Repository 04/10/2018 [id number] Agyepong, Ambulatory BMSBuilding: [place] Luis Enrique BMS.CF.[facility] Repository 04/10/2018 [id number] Agyepong, Ambulatory BMSBuilding: [place] Luis Enrique BMS.[facility] Repository 04/10/2018 [id number] Agyepong, Ambulatory BMSBuilding: [place] Luis Enrique BMS.[facility] Repository 04/10/2018 [id number] Agyepong, Ambulatory BMSBuilding: [place] Luis Enrique BMS.[facility] Repository 04/05/2018 [id number] Ambulatory BMSBuilding: [place] [facility] Repository 04/04/2018 [id number] Ambulatory BMSBuilding: [facility] Repository 04/03/2018/04/03/20 [id number] Ambulatory [address] Repository 03/19/2018/03/21/20 [id number] Ambulatory [address] Repository 03/17/2018/04/10/20 [id number] Bhargav, Inpatient [address] ding:RURoom: Repository DB345Jrn: 1 03/17/2018 [id number] Bhargav, Ambulatory BMSBuilding: [place] David BMS.[facility] Repository 03/17/2018 [id number] Bhargav, Ambulatory BMSBuilding: [place] David BMS.[facility] Repository 03/17/2018 [id number] Bhargav, Ambulatory BMSBuilding: [place] David BMS.[facility] Repository 03/17/2018 [id number] Bhargav, Ambulatory BMSBuilding: [place] David BMS.[facility] Repository 03/17/2018 [id number] Bhargav, Ambulatory BMSBuilding: [place] David BMS.[facility] Repository 03/17/2018 [id number] Bhargav, Ambulatory BMSBuilding: [place] David BMS.[facility] Repository 03/17/2018 [id number] Bhargav, Ambulatory BMSBuilding: [place] David BMS.[facility] Repository 03/17/2018 [id number] Bhargav, Ambulatory BMSBuilding: [place] David BMS.[facility] Repository 03/17/2018 [id number] Bhargav, Ambulatory BMSBuilding: [place] David BMS.[facility] Repository 03/17/2018 [id number] Bhargav, Ambulatory BMSBuilding: [place] David BMS.[facility] Repository 03/17/2018/03/17/20 [id number] Ambulatory [address] Repository 03/14/2018/03/17/20 [id number] DAIMAN, Ambulatory [place] [address] [facility] Repository 03/06/2018/03/14/20 [id number] Bhargav, Inpatient [place] 18 David Encounter [facility] ding:RURoom: Repository SR318Tuf: 1 03/06/2018 [id number] Bhargav Ambulatory BMSBuilding: [place] David BMS.[facility] Repository 03/06/2018 [id number] Bhargav Ambulatory BMSBuilding: [place] David BMS.[facility] Repository 03/06/2018 [id number] Bhargav Ambulatory BMSBuilding: [place] David BMS.[facility] Repository 03/06/2018 [id number] Bhargav Ambulatory BMSBuilding: [place] David BMS.[facility] Repository 02/27/2018/03/03/20 [id number] Ambulatory [address] Repository 02/26/2018/03/06/20 [id number] KOLE, Inpatient [address] Repository 02/13/2018/02/14/20 [id number] Ambulatory [address] ding:EN Repository 02/13/2018 [id number] Ambulatory BMSBuilding: [place] BMS.CF.[facility] Repository 02/07/2018/02/27/20 [id number] Edd, Luis Chi Inpatient [place] 18 [facility] ding:TCURoom Repository : ZPB67Thk: 1 02/07/2018 [id number] Edd, Luis Chi Ambulatory BMSBuilding: [place] BMS.CF.[facility] Repository 02/07/2018 [id number] Edd, Luis Chi Ambulatory BMSBuilding: [place] BMS.CF.[facility] Repository 01/17/2018/01/22/20 [id number] KOLE, Ambulatory [address] Repository 01/16/2018/02/08/20 [id number] DUANE, Inpatient [place] [address] [place] NAQVI Encounter [facility] Repository 01/16/2018/01/18/20 [id number] Ambulatory [address] Repository 01/16/2018/01/17/20 [id number] Ambulatory [address] [place] Repository 01/16/2018/01/17/20 [id number] Ambulatory [address] Repository 12/30/2017/01/08/20 [id number] Ambulatory [address] Repository 11/23/2017/11/24/19 [id number] Emergency [address] [place] Repository 11/23/2017/11/24/19 [id number] Emergency [place] [address] MEDICAL Repository CENTERBuildi ng:AKEDRoom: EDBed: 08 11/22/2017/01/04/20 [id number] MALLORY, [address] Repository 10/11/2017/10/12/19 [id number] Ambulatory [address] Repository 10/07/2017/11/02/19 [id number] KIRTI, [address] Repository 10/07/2017/10/08/19 [id number] Emergency [address] ding:ED Repository 10/06/2017/10/07/19 [id number] Emergency [address] ding:ED Repository 09/08/2017/09/08/19 [id number] Ambulatory [address] Repository 09/07/2017 [id number] Ambulatory [facility] Repository 09/07/2017/09/07/19 [id number] Ambulatory [address] Repository 08/26/2017 [id number] Ambulatory [facility] ding:LAB Repository PAYERS PAYERS ENCOUNTER GUARANTOR PAYER SUBSCRIBER SOURCE 08/20/2018 JOSE GUSTAFSON Primary DANA Mosley Jr.[address] [place] Insurance:MEDICAL JANAYDOB: [facility] [id number] [facility] [address]Yrd: 330) Number: Repository [phone] [id number] Date:[id number] [address] [place] [address]AT: 08/20/2018 Secondary NOT GIVENUNK [place] Insurance:SELF PAY [facility] Number: Effective Repository Date:2018-08-12 08/12/2018 JOSE GUSTAFSON Primary DANA S [place] Agrawal.[address] Insurance:MEDICAL SCHMIDDOB: [facility] [id number] Hospital [address]Iti: (330) Number: Repository [phone] () [id number] Date:7158-01-66GA [place] [address]WP: 08/12/2018 Secondary NOT GIVENUNK [place] Insurance:SELF PAY [facility] Number: Effective Repository Date:2018-08-12 07/01/2018 JOSE GUSTAFSON Primary DANA S [place] Jr.[address] Insurance:MEDICAL SCHMIDDOB: [facility] [id number] [id number]: (330) Number: Repository [phone] () [id number] Date:1553-79-84PE [place] [address]WP: 07/01/2018 Secondary NOT GIVENUNK [place] Insurance:SELF PAY [facility] Number: Effective Repository Date:2018-07-01 06/06/2018 JOSE GUSTAFSON Primary DANA S [place] Jr.[address] Insurance:MEDICAL SCHMIDDOB: [facility] [id number] Hospital [address]Mvy: (330) Number: Repository [phone] () [id number] Date:4676-99-50JW [address] [address]KC: 06/06/2018 Secondary NOT GIVENUNK [place] Insurance:SELF PAY [facility] Number: Effective Repository Date:2018-05-19 05/21/2018 JOSE GUSTAFSON Primary DANA S [place] JrHomar[address] [place] Insurance:MEDICAL SCHMIDDOB: [facility] [id number] [address]Kcv: (330) Number: Repository [phone] () [id number] Date:6259-70-29CY [address] [address]IO: 05/21/2018 Secondary NOT GIVENUNK [place] Insurance:SELF PAY [facility] Number: Effective Repository Date:2018-05-16 04/15/2018 JOSE GUSTAFSON Primary DANA S [place] [address] Insurance:MEDICAL SCHMIDDOB: [facility] [id number] [address]Tel: (330) Number: Repository [phone] () [id number] Date:4325-97-45HY [address] [address]HW: 04/15/2018 Secondary NOT GIVENUNK [place] Insurance:SELF PAY [facility] Number: Effective Repository Date:2018-04-15 04/10/2018 JOSE GUSTAFSON Primary DANA S [place] [address] Insurance:MEDICAL SCHMIDDOB: [facility] [id number] [id number]: (330) Number: Repository [phone] () [id number] Date:3804-09-25FO [address] [address]FZ: 04/10/2018 Secondary NOT GIVENUNK [place] Insurance:SELF PAY [facility] Number: Effective Repository Date:2018-04-10 04/10/2018 JOSE GUSTAFSON Primary DANA S [place] [address] Insurance:MEDICAL SCHMIDDOB: [facility] [id number] [id number]: (330) Number: Repository [phone] () [id number] Date:1201-32-16NZ [address] [address]ST: 04/10/2018 Secondary NOT GIVENUNK [place] Insurance:SELF PAY [facility] Number: Effective Repository Date:2018-04-10 04/10/2018 JOSE GUSTAFSON Primary DANA S [place] Jr.[address] Insurance:MEDICAL SCHMIDDOB: [facility] [id number] Hospital [address]Ecg: (330) Number: Repository [phone] () [id number] Date:1347-57-07AA [address] [place] [address]ZI: 04/10/2018 Secondary NOT GIVENUNK [place] Insurance:SELF PAY [facility] Number: Effective Repository Date:2018-04-10 04/10/2018 JOSE GUSTAFSON Primary DANA S [place] Jr.[address] Insurance:MEDICAL SCHMIDDOB: [place] [id number] [address]Tel: (330) Number: Repository [phone] () [id number] Date:3801-92-81YC [address] [address]QY: 04/10/2018 Secondary NOT GIVENUNK [place] Insurance:SELF PAY [facility] Number: Effective Repository Date:2018-04-10 04/10/2018 JOSE GUSTAFSON Primary DANA S Melany Jr.[address] [place] Insurance:MEDICAL SCHMIDDOB: [place] [address]-02-13[place] [address]Tel: (330) Number: Repository [phone] () [id number] Date:8467-23-80YT [address] [address]ZK: 04/10/2018 Secondary NOT GIVENUNK [place] Insurance:SELF PAY [facility] Number: Effective Repository Date:2018-04-10 04/10/2018 JOSE GUSTAFSON Primary DANA S Melany Jr.[address] [place] Insurance:MEDICAL SCHMIDDOB: [place] [address]-02-13[place] [id number]: (330) Number: Repository [phone] () [id number] Date:3091-37-26QZ [address] [address]DW: 04/10/2018 Secondary NOT GIVENUNK Mel[place] Insurance:SELF PAY [facility] Number: Effective Repository Date:2018-04-10 04/10/2018 JOSE GUSTAFSON Primary DANA S Melany Jr.[address] [place] Insurance:MEDICAL SCHMIDDOB: [facility] [id number] [address]Jdc: (330) Number: Repository [phone] () [id number] Date:0239-46-59BA [address] [address]MG: 04/10/2018 Secondary NOT GIVENUNK Melany Insurance:SELF PAY [facility] Number: Effective Repository Date:2018-04-10 04/10/2018 JOSE GUSTAFSON Primary DANA S Melany Jr.[address] [place] Insurance:MEDICAL SCHMIDDOB: [facility] [id number] [id number]: (330) Number: Repository [phone] () [id number] Date:9637-41-50HC[address] [address]HK: 04/10/2018 Secondary NOT GIVENUNK [place] Insurance:SELF PAY [facility] Number: Effective Repository Date:2018-04-10 04/05/2018 JOSE GUSTAFSON Primary DANA S Melany Escobar[address] [place] Insurance:MEDICAL SCHMIDDOB: [facility] [id number] Hospital [address]Zlh: (330) Number: Repository [phone] () [id number] Date:3474-56-51NI [address] [place] [address]HL: 04/05/2018 Secondary NOT GIVENUNK [place] Insurance:SELF PAY [facility] Number: Effective Repository Date:2018-04-05 04/04/2018 JOSE GUSTAFSON Primary DANA S Melany JrHomar[address] [place] Insurance:MEDICAL SCHMIDDOB: [place] [address]-02-13[place] [address]Tel: (330) Number: Repository [phone] () [id number] Date:0787-07-89KD [address] [address]NT: 04/04/2018 Secondary NOT GIVENUNK [place] Insurance:SELF PAY [facility] Number: Effective Repository Date:2018-04-04 03/17/2018 JOSE GUSTAFSON Primary DANA S Melany Jr.[address] [place] Insurance:MEDICAL SCHMIDDOB: [facility] [id number] [id number]: (330) Number: Repository [phone] () [id number] Date:3060-11-23IK [address] [address]RC: 03/17/2018 Secondary NOT GIVENUNK Melany Insurance:SELF PAY [facility] Number: Effective Repository Date:2018-03-17 03/17/2018 JOSE GUSTAFSON Primary DANA S [place] Jr.[address] Insurance:MEDICAL SCHMIDDOB: [facility] [id number] [id number]: (330) Number: Repository [phone] () [id number] Date:8105-49-87QL [address] [address]VT: 03/17/2018 Secondary NOT GIVENUNK [place] Insurance:SELF PAY [facility] Number: Effective Repository Date:2018-03-17 03/17/2018 JOSE GUSTAFSON Primary Dana Nisha Mosley Jr.[address] [place] Insurance:MEDICAL SchmidDOB: [facility] [id number] [id number]: (330) Number: Repository [phone] () [id number] Date:4936-15-31EF [address] [address]ZU: 03/17/2018 Secondary NOT GIVENUNK [place] Insurance:SELF PAY [facility] Number: Effective Repository Date:2018-03-17 03/17/2018 JOSE GUSTAFSON Primary Dana Nisha Mosley Jr.[address] [place] Insurance:MEDICAL SchmidDOB: [address]02[address] [address]Tel: (330) Number: Repository [phone] () [id number] Date:1737-71-02AT [address] [address]DQ: 03/17/2018 Secondary NOT GIVENUNK [place] Insurance:SELF PAY [facility] Number: Effective Repository Date:2018-03-17 03/17/2018 JOSE Martinez JANAY Primary DANA S Melany Agrawal.[address] Insurance:MEDICAL SCHMIDDOB: [address]02[address]13[place] [address]Tel: (330) Number: Repository [phone] () [id number] Date:8018-65-65YE [place] [address]WP: 03/17/2018 Secondary NOT GIVENUNK [place] Insurance:SELF PAY [facility] Number: Effective Repository Date:2018-03-17 03/17/2018 JOSE Martinez JANAY Primary DANA S Melany Agrawal.[address] [place] Insurance:MEDICAL SCHMIDDOB: [address] [address]Tel: (330) Number: Repository [phone] () [id number] Date:9572-93-16GP [address] [address]SY: 03/17/2018 Secondary NOT GIVENUNK [place] Insurance:SELF PAY [facility] Number: Effective Repository Date:2018-03-17 03/17/2018 JOSE Martinez JANAY Primary DANA S Melany Agrawal.[address] [place] Insurance:MEDICAL SCHMIDDOB: [address] [address]Tel: (330) Number: Repository [phone] () [id number] Date:1811-94-14FP [address] [address]MW: 03/17/2018 Secondary NOT GIVENUNK [place] Insurance:SELF PAY [facility] Number: Effective Repository Date:2018-03-17 03/17/2018 JOSE Juan JANAY Primary DANA Mosley Jr.[address] [place] Insurance:MEDICAL SCHMIDDOB: [address] [address]Tel: (330) Number: Repository [phone] () [id number] Date:2357-95-43JD [address] [address]GA: 03/17/2018 Secondary NOT GIVENUNK [place] Insurance:SELF PAY [facility] Number: Effective Repository Date:2018-03-17 03/17/2018 JOSE GUSTAFSON Primary DANA Mosley Jr.[address] [place] Insurance:MEDICAL SCHMIDDOB: [address]02[address] [address]Tel: (330) Number: Repository [phone] () [id number] Date:7739-16-80EP [address] [address]IR: 03/17/2018 Secondary NOT GIVENUNK [place] Insurance:SELF PAY [facility] Number: Effective Repository Date:2018-03-17 03/17/2018 JOSE Juan JANAY Primary DANA S Melany Escobar[address] [place] Insurance:MEDICAL SCHMIDDOB: [address]13[place] [id number]: (330) Number: Repository [phone] () [id number] Date:8294-17-46WB [address] [address]JP: 03/17/2018 Secondary NOT GIVENUNK [place] Insurance:SELF PAY [facility] Number: Effective Repository Date:2018-03-17 03/17/2018 JOSE GUSTAFSON Primary DANA Mosley Jr.[address] [place] Insurance:MEDICAL SCHMIDDOB: [facility] [id number] Hospital [address]Wwe: (330) Number: Repository [phone] () [id number] Date:8433-20-54XT [address] [place] [address]RW: 03/17/2018 Secondary NOT GIVENUNK Mel[place] Insurance:SELF PAY [facility] Number: Effective Repository Date:2018-03-17 03/06/2018 JOSE GUSTAFSON Primary Dana Nisha Melany Jr.[address] [place] Insurance:MEDICAL SchmidDOB: [facility] [id number] Hospital [address]Ziz: (330) Number: Repository [phone] () [id number] Date:7302-94-13MY [address] [address]ON: 03/06/2018 Secondary NOT GIVENUNK [place] Insurance:SELF PAY [facility] Number: Effective Repository Date:2018-03-06 03/06/2018 JOSE GUSTAFSON Primary DANA S Melany Jr.[address] [place] Insurance:MEDICAL SCHMIDDOB: [address] [id number]: (330) Number: Repository [phone] () [id number] Date:1217-81-93LB [address] [address]XA: 03/06/2018 Secondary NOT GIVENUNK [place] Insurance:SELF PAY [facility] Number: Effective Repository Date:2018-03-06 03/06/2018 JOSE GUSTAFSON Primary DANA S [place] Jr.[address] [place] Insurance:MEDICAL SCHMIDDOB: [address]02[address]13[facility] [address]Tlw: (330) Number: Repository [phone] () [id number] Date:8626-94-77FX [address] [address]XS: 03/06/2018 Secondary NOT GIVENUNK [place] Insurance:SELF PAY [facility] Number: Effective Repository Date:2018-03-06 03/06/2018 JOSE GUSTAFSON Primary DANA S Melany Escobar[address] [place] Insurance:MEDICAL SCHMIDDOB: [address]13[place] [id number]: (330) Number: Repository [phone] () [id number] Date:9968-41-50RN [address] [address]NB: 03/06/2018 Secondary NOT GIVENUNK [place] Insurance:SELF PAY [facility] Number: Effective Repository Date:2018-03-06 03/06/2018 JOSE GUSTAFSON Primary DANA S Melany Escobar[address] [place] Insurance:MEDICAL SCHMIDDOB: [address] [id number]: (330) Number: Repository [phone] () [id number] Date:8647-59-70ZT[address] [address]ZI: 03/06/2018 Secondary NOT GIVENUNK [place] Insurance:SELF PAY [facility] Number: Effective Repository Date:2018-03-06 02/13/2018 OJSE GUSTAFSON Primary Dana Cameron Melany [address]obar[address] [place] Insurance:MEDICAL SchmidDOB: [facility] [id number] Hospital [address]Vls: (330) Number: Repository [phone] () [id number] Date:5357-33-55AU [address] [address]XB: 02/13/2018 Secondary NOT GIVENUNK [place] Insurance:SELF PAY [facility] Number: Effective Repository Date:2018-02-13 02/13/2018 JOSE GUSTAFSON Primary Dana Cameron Melany Escobar[address] [place] Insurance:MEDICAL SchmidDOB: [place] [address] [address]Tel: (330) Number: Repository [phone] () [id number] Date:7335-15-43XW [address] [address]BP: 02/13/2018 Secondary NOT GIVENUNK [place] Insurance:SELF PAY [facility] Number: Effective Repository Date:2018-02-13 02/07/2018 JOSE GUSTAFSON Primary Dana Nisha Mosley Jr.[address] [place] Insurance:MEDICAL SchmidDOB: [facility] [id number] [id number]: (330) Number: Repository [phone] () [id number] Date:1694-85-85YZ [address] [address]ZN: 02/07/2018 Secondary NOT GIVENUNK [place] Insurance:SELF PAY [facility] Number: Effective Repository Date:2018-02-07 02/07/2018 JOSE GUSTAFSON Primary Dana Nisha Mosley Jr.[address] [place] Insurance:MEDICAL SchmidDOB: [facility] [id number] Hospital [address]Skh: (330) Number: Repository [phone] () [id number] Date:8107-56-87DS [address] [address]CG: 02/07/2018 Secondary NOT GIVENUNK [place] Insurance:SELF PAY [facility] Number: Effective Repository Date:2018-02-07 02/07/2018 JOSE Martinez JANAY Primary Dana Nisha [place] Jr.[address] [place] Insurance:MEDICAL SchmidDOB: [facility] [id number] Hospital [address]Tbf: (330) Number: Repository [phone] () [id number] Date:7952-67-23FY [address] [address]VY: 02/07/2018 Secondary NOT GIVENUNK [place] Insurance:SELF PAY [facility] Number: Effective Repository Date:2018-02-07 11/23/2017 JOSE Martinez Primary Insurance:MMO DANA S [facility] SCHMIDDOB: [employer] SCHMIDDOB: [facility] Number: [id number] Repository [place] [id number] [facility], Date: [place] [address]Tel: (HP) 10/07/2017 JOSE GUSTAFSON Primary Dananiraj Mosley Jr.[address] [place] Insurance:MEDICAL SchmidDOB: [facility] [id number] Hospital [address]Smz: (330) Number: Repository [phone] () [id number] Date:0297-82-14LQ [place] [address]WP: 10/07/2017 Secondary NOT GIVENUNK [place] Insurance:SELF PAY [facility] Number: Effective Repository Date:2017-10-07 10/06/2017 JOSE GUSTAFSON Primary Dana Sue [place] Jr.[address] [place] Insurance:MEDICAL SchmidDOB: [facility] [id number] Hospital [address]Rsg: (330) Number: Repository [phone] () [id number] Date:2621-68-72RTCait[place] [address]WP: 10/06/2017 Secondary NOT GIVENUNK [place] Insurance:SELF PAY [facility] Number: Effective Repository Date:2017-10-06 08/26/2017 Jose Gustafson Primary Dana Mosley [address] [place] Insurance:MEDICAL SchmidDOB: [facility] [id number] Hospital [address]Zio: (330) Number: Repository [phone] () [id number] Date:6587-02-33RTCait[place] [address]WP: 08/26/2017 Secondary NOT GIVENUNK [place] Insurance:SELF PAY [facility] Number: Effective Repository Date:2017-08-26
== END ==
PROVIDERS: Family Provider Family Medicine; PCP Family Medicine; Referring Provider Internal Medicine Cardiovascular Disease; Visit Provider Internal Medicine Cardiovascular Disease
DX: I71.00 Dissection of unspecified site of aorta (principal); I10 Essential (primary) hypertension; I31.3 Pericardial effusion (noninflammatory)
CPT/HCPCS: 93306; Q9957; A4216; C8929

== ENCOUNTER → 2018-09-18 10:23 | Outpatient (CLI) | payer OTHER, SELFPAY ==
[2018-08-12 15:22] VITALS: BMI 21.8
--- NOTE | 2018-09-18 10:48 | CT_ITS ---
STUDY: CT LUMBAR SPINE WITHOUT CONTRAST REASON FOR EXAM: Male, 53 years old. New onset of left-sided pain. RADIATION DOSAGE (If Supplied By Facility): CTDIvol = ( 20.26 ) mGy, DLP = ( 1191.10 ) mGycm TECHNIQUE: The patient was scanned in a multi detector CT scanner. High resolution transaxial imaging was performed. Images were obtained from L1 to S1 level. Sagittal and coronal images were reconstructed. Individualized dose optimization techniques were used for this CT. COMPARISON: None FINDINGS: Normal lumbar lordosis. There is a mild dextroscoliosis of the lumbar spine. Normal vertebrae of the lumbar spine. Small bilateral effusions with bibasilar atelectasis. This is worse on the right side. Nonobstructive bilateral intrarenal calculi. Bilateral hydronephrosis worse on the left side. There is a 7.1 mm calculus in the midportion of the left ureter. Pain stimulator device is seen. L1-2: Mild degree of disc space narrowing. Spondylosis. L2-3: Mild degree of diffuse posterior disc bulge. Facet joint osteoarthritis and hypertrophy. Mild degree of bilateral neural foraminal stenosis. L3-4: Normal endplates. Normal disc height and morphology. Normal bilateral facet joints. Normal central canal and bilateral lateral recesses. Normal bilateral intervertebral neural foramina. L4-5: Moderate degree of central canal stenosis due to hypertrophy of the ligamenta flava and facet joint osteoarthritis. L5-S1: Normal endplates. Normal disc height and morphology. Normal bilateral facet joints. Normal central canal and bilateral lateral recesses. Normal bilateral intervertebral neural foramina. Aortic calcification. CT/Spine Lumbar without Contrast IMPRESSION: Multilevel degenerative changes, as described above. 7.1 mm calculus in the midportion of the left ureter with left hydronephrosis. Small bilateral pleural effusions with underlying atelectasis is worse on the right side. Electronically Signed: Beck Nuñez MD at 12:24 EST , Service support ,
--- NOTE | 2018-09-18 10:48 | CT_ITS ---
STUDY: CT THORACIC SPINE WITHOUT CONTRAST REASON FOR EXAM: Male, 53 years old. Set of increasing left-sided pain. History of aortic rupture. RADIATION DOSAGE (If Supplied By Facility): CTDIvol = ( 20.26 ) mGy, DLP = ( 1191.10 ) mGycm TECHNIQUE: The patient was scanned in a multi detector CT scanner. High resolution imaging was performed. Images were obtained from T1 to T12 vertebral level. Sagittal and coronal images were reconstructed. Individualized dose optimization techniques were used for this CT. COMPARISON: None. FINDINGS: Small bilateral pleural effusions with atelectasis. Normal kyphosis of the thoracic spine. There is a dextroscoliosis of the thoracic spine. Mild spondylosis in the lower thoracic spine. There is multilevel degenerative disc disease with loss of the disc space heights. A stent graft is seen in the region of the aortic arch and proximal portion of the descending thoracic aorta. CT/Spine Thoracic without Contras IMPRESSION: Mild degree of degenerative changes. Small bilateral pleural effusions with atelectasis. Aortic stent grafting of the aortic arch and proximal portion of the descending thoracic aorta. Electronically Signed: Beck Nuñez MD at 12:21 EST , Service support ,
== END ==
PROVIDERS: Family Provider Family Medicine; PCP Family Medicine; Referring Provider Anesthesiology Pain Medicine; Visit Provider Anesthesiology Pain Medicine
DX: M54.9 Dorsalgia, unspecified (principal); M79.606 Pain in leg, unspecified
CPT/HCPCS: 72128; 72131

== ENCOUNTER 2018-09-18 15:37 | Inpatient (IN) | payer OTHER, SELFPAY ==
[2018-08-12 15:22] VITALS: BMI 21.8
[2018-09-18 15:56] VITALS: BMI 20.3
--- NOTE | 2018-09-18 16:57 | HP.PCM_ITS ---
History and Physical Date of Admission: 09/18/18 53 yo male is worked in due to severe pain that Dr Cifuentes was evaluating; CT of spine today shows 7 mm stone in mid left ureter with hydro. Pain started a wk ago, very severe today. He has a h/o stones, had ESWL. Last visit here 07/2017. Since then he had aortic rupture and stroke. ALLERGIES: None MEDICATIONS: Albuterol Sulfate Breo Buspirone Hcl Gabapentin Levetiracetam Methocarbamol Metoprolol Succinate Oxycodone Hcl Oxycontin Pantoprazole Sodium Polyethylene Glycol Pulmicort Senna Tamsulosin Hcl Tylenol Venlafaxine Hcl Notes: Has not had the pneumonia vaccine PSH: Renal ESWL - 2014 NON- PSH: Colonoscopy Patient not documented to have received pneumococcal vaccination PMH: Calculus of kidney - 08/26/2017, Bilateral, - 2014 Encounter for screening for malignant neoplasm of prostate - 06/04/2016 Calculus of ureter (Acute), Left - 2014 Urinary calculus, unspecified, Bilateral - 2014 NON- PMH: Encounter for surgical aftcr following surgery on the sys - 2014 Mild intermittent asthma, uncomplicated FAMILY HISTORY: High Blood Pressure - Runs in Family SOCIAL HISTORY: Marital Status: Preferred Language: Croatian; Ethnicity: Not Or ; Race: White Current Smoking Status: Patient has never smoked. Does not use smokeless tobacco. Social Drinker. Does not use drugs. Drinks 1 caffeinated drink per day. Has not had a blood transfusion. VITAL SIGNS: 09/18/2018 03:04 PM Weight 190 lb / 86.18 kg Height 72 in / 182.88 cm BP 130/62 mmHg BMI 25.8 kg/m? MULTI-SYSTEM PHYSICAL EXAMINATION: Notes: He is in wheelchair, left paresis, slumped over, in evident pain PAST DATA REVIEWED: Source Of History: Patient Records Review: Previous Patient Records 08/26/17 06/04/16 PSA Total PSA 1.17 ng/mL 0.94 ng/mL Notes: spine CT reviewed PROCEDURES: None ASSESSMENT: ICD-10 Details 1 : Calculus of ureter - N20.1 Left PLAN: Document Letter(s): Created for Patient: Clinical Summary Notes: 53 yo male in severe pain from obstructing 7 mm stone in mid left ureter. Dr Acevedo met with pt and also today; Dr Acevedo will admit Mr Janay today for pain control, place stent tomorrow and possible laser stone if no infection.
[2018-09-18] MEDS: 0.9% Normal Saline 1,000 ML 75 ML IV (18:58)
[2018-09-18] MEDS: 0.9% NaCl Peripheral Flush Adult/Peds IV (18:59)
[2018-09-18] MEDS: Acetaminophen 325 MG Tablet PO (19:11)
[2018-09-18] MEDS: Cefazolin 1 GM/50 ML BAG IV (22:06)
[2018-09-18 22:10] VITALS: BP 153/84; PULSE 63; RESP 16; TEMP 36.6; O2SAT 100
[2018-09-18 22:38] VITALS: PULSE 63
[2018-09-18] MEDS: Metoprolol Tartrate 25 MG Tablet PO (22:38)
[2018-09-18] MEDS: Senna Tablet 1 TABLET PO (22:38)
[2018-09-18] MEDS: Venlafaxine HCl 75 MG Tablet PO (22:38)
[2018-09-18] MEDS: oxyCODONE 5 MG Tablet PO (22:43)
[2018-09-18] MEDS: Gabapentin 600 MG Tablet PO (23:37)
[2018-09-19] VITALS (16 sets, daily range): BP systolic 125–168; BP diastolic 60–105; PULSE 63–88; RESP 16–18; TEMP 36.4–36.8; O2SAT 92–98; BMI 20.3
[2018-09-19] MEDS: Acetaminophen 325 MG Tablet PO (01:33)
--- NOTE | 2018-09-19 05:00 | EKG12_ITS ---
Test Reason : AM EKG Blood Pressure : / mmHG Vent. Rate : 071 BPM Atrial Rate : 071 BPM P-R Int : 116 ms QRS Dur : 080 ms QT Int : 404 ms P-R-T Axes : 014 011 019 degrees QTc Int : 439 ms Normal sinus rhythm Normal ECG Confirmed by MEIR NAQVI, NADIA ([id number]), order editor KAREN ROCHA ([id number] on 09/24/2018 10:42:10 AM Referred By: Johnathon Acevedo Confirmed By:NADIA WORLEY MD
[2018-09-19] MEDS: Cefazolin 1 GM/50 ML BAG IV ×3 (05:30→21:22)
[2018-09-19] MEDS: 0.9% Normal Saline 1,000 ML 75 ML IV ×2 (05:38→21:21)
[2018-09-19 05:45] LABS: Anion Gap 9 (5-15); BUN 20 mg/dL (7-18); BUN/Creat Ratio 23.7 RATIO (10-20); Calcium,Total 8.3 mg/dL (8.5-10.1); Chloride 109 mmol/L (98-107); Creatinine, Serum 0.84 mg/dL (0.70-1.30); EST Glomerular Filtration Rate 101 mL/min (>60); Est Glom Filt Rate - Afr Amer 122 mL/min (>60); Estimated Creatinine Clearance 96.75 ml/min; Glucose 87 mg/dL (74-106); Sodium Level 141 mmol/L (136-145)
[2018-09-19] MEDS: oxyCODONE 5 MG Tablet PO ×3 (05:45→21:23)
[2018-09-19 05:49] LABS: Hematocrit 35.4 % (40-54); Hemoglobin 11.4 g/dl (13.0-16.5); Mean Corp Hgb Conc 32.2 g/gl (32-36); Mean Corpuscular Hgb 32.4 pg (27.0-32.0); Mean Corpuscular Volume 100.6 fL (80-94); Mean Platelet Vol. 9.6 fl (6.2-12.0); Platelet Count 283 K/mm3 (150-450); RBC Distribution Width CV 12.4 % (11.6-14.6); RBC Distribution Width SD 44.7 fl (35.1-43.9); Red Blood Count 3.52 M/mm3 (4.6-6.2); White Blood Count 8.9 K/mm3 (4.4-11.0)
[2018-09-19 05:56] LABS: Scan Indicated on CBC? Y/N NO
[2018-09-19] MEDS: Gabapentin 600 MG Tablet PO ×3 (05:56→17:53)
[2018-09-19] MEDS: Albuterol 2.5 MG/3 ML VIAL.NEB. INHALATION ×2 (06:37→18:51)
[2018-09-19] MEDS: Budesonide Respules 0.5 MG/2 ML AMPUL.NEB. INHALATION ×2 (06:37→18:51)
[2018-09-19] MEDS: levETIRAcetam 1,000 MG Tablet 1000 MG PO ×2 (07:52→21:22)
[2018-09-19] MEDS: levETIRAcetam 500 MG Tablet PO (07:53)
[2018-09-19] MEDS: Ketorolac 15 MG/ML Vial IV (10:15)
[2018-09-19] MEDS: 0.9% NaCl Peripheral Flush Adult/Peds IV (10:15)
[2018-09-19] MEDS: Metoprolol Tartrate 25 MG Tablet PO ×2 (10:20→21:23)
--- NOTE | 2018-09-19 10:20 | CASEMGMT ---
RN CM Face to Face with patient for initial transition planning/care coordination assessment. RN CM introduced self and role at [facility] [place]. Patient lying in bed, alert and oriented. Patient willing to participate in assessment and is able to answer all questions appropriately. Care providers, pharmacy, and demographics verified. Patient wishes to discharge home with resumption of HHC with [facility] for PT, OT, and SP. Patient states he has no further needs or concerns at this time. CM to follow for discharge planning needs that may arise. PCP: [facility] Specialists: Kristina, urology; Basali, pain; Patient also see business analytics faculty member and neurologist but is unsure of names. Preferred Pharmacy: [facility] Insurance: MMO Prescription Benefit: Yes Living Will/HPOA: Yes, Dana Gustafson LNOK: Living Arrangements: Patient lives with in 2 story home with setup on first floor. Patient states he has a ramp to enter the home and assists with care. Transportation: DME/HHC: Patient states he uses a quad cane at home. Has wheelchair, shower chair, raised toilet, grab bars. Patient was setup with hospital bed when discharged from Rehab unit. Patient is current with [facility] for PT, OT, ST. Disposition Plan: Patient to discharge home with resumption of HHC, family support, and follow-up plans in place. Ivanna LERNER, RN, CM
--- NOTE | 2018-09-19 11:42 | CHAPLAIN ---
patient was asleep and was not disturbed
--- NOTE | 2018-09-19 12:17 | DCINST_ITS ---
Discharge Diet: Light diet - advance as tolerated Discharge Activity: Return to Normal Activity Call your doctor if your incision/area has: Continuous Slow Oozing, Sudden Increased Bleeding, Increased Pain/ Swelling, Increased Redness, Foul Smelling Discharge, Swelling at the incision site Call your doctor if you observe: Fever of 101 or Higher Suture Line Care: Avoid Pulling/Pushing, Avoid Pinching/Bending Instructions: Treating Kidney Stones: Ureteroscopic Stone Removal, Ureteral Stents Allergies/Adverse Reactions: Allergies cat dander Allergy (Verified 08/04/18 10:22) Unknown grass pollen Allergy (Verified 08/04/18 10:22) Itching Medications to take at Discharge Acetaminophen [Tylenol Tablet] 650 mg PO Q6H PRN PRN tab 04/18/18 Methocarbamol [Robaxin-750] 750 mg PO TID PRN #180 tab 04/18/18 Metoprolol Tartrate [Lopressor (beta john)] 25 mg PO BID #180 tab 04/18/18 Pantoprazole Sodium [Protonix] 40 mg PO DAILY #90 tab 04/18/18 Tamsulosin HCl [Flomax] 0.4 mg PO DAILY #90 cap 04/18/18 Venlafaxine HCl [Effexor] 75 mg PO BID #180 tab 04/18/18 busPIRone [Buspar] 5 mg PO DAILY #7 tab 04/18/18 levETIRAcetam tablet [Keppra tablet] 1,000 mg PO BID #180 tab 04/18/18 Albuterol IH (ProAir) [Proair Hfa (SP)Vent Pts] 2 puff INHALATION Q4H PRN PRN 06/02/18 Budesonide/Formoterol 160/4.5 [Symbicort 160/4.5 Mcg Inhaler (SP)] 2 puff INHALATION BID 06/02/18 Polyethylene Glycol 3350 [Miralax] 17 gm PO DAILY 06/02/18 Sennosides [Senna] 8.6 mg PO BID 06/02/18 albuterol sulfate 2.5 mg/3 mL (0.083 %) solution for nebulization 2.5 mg INHALATION .q 6H PRN ml 08/04/18 aspirin 81 mg tablet,delayed release 81 mg PO DAILY 08/04/18 gabapentin 100 mg capsule 600 mg PO Q6H cap 08/04/18 Oxycodone [Oxyir] 5 mg PO Q6H PRN PRN 09/18/18 levETIRAcetam tablet [Keppra tablet] 500 mg PO DAILY 09/18/18 Acetaminophen [Tylenol Extra Strength] 500 mg PO Q4H PRN PRN #20 tablet 09/19/18 Ibuprofen 600 mg PO Q6H PRN PRN #20 tablet 09/19/18 The following prescriptions were given: Acetaminophen [Tylenol Extra Strength] 500 mg PO Q4H PRN PRN #20 tablet PRN Reason: Pain Ibuprofen 600 mg PO Q6H PRN PRN #20 tablet PRN Reason: Pain Primary Care Physician: Fredy Beth MD [Primary Care Provider] - Test Results: Test results from this visit will be discussed in further detail at your follow- up appointment, if applicable. Please Follow Up With: Johnathon Acevedo MD When: please call to make an appointment.
--- NOTE | 2018-09-19 13:14 | OP.PCM_ITS ---
Report of Operation Date of Procedure: 09/19/18 Pre-Operative Diagnosis: Left obstructing ureteral calculi Post-Operative Diagnosis: The same and pyelonephritis Surgery/Procedure Performed:: Cystoscopy balloon dilation of the left ureter left ureteroscopy and left stent placement, manipulation of stone Description of Surgical Findings:: 53-year-old male was taken back to the operating room at the smooth induction of general anesthesia he was placed in the dorsolithotomy position within the bladder with a 21 Panamanian rigid cystourethroscope cannulated the left ureteral orifice advanced a wire up the left ureter then advanced the balloon dilator balloon dilated the distal left ureter then went up with the flexible ureteroscope after balloon dilation was completed encountered the stone started lasering the stone and the stone broke up the pieces migrated up in the kidney and manipulated stones up into the kidney and then was taken to the kidney found a significant pocket of debris and pus and purulent urine so immediately is stopped lasering side the place a stent so this all this debris and pus could be evacuated out want to bring him back to continue treating the stone work my way down the ureter left the wire up in the left side of the wire place a stent 6 Panamanian by 26 to drain the bladder and the patient's anesthesia is currently being reversed. So I did laser the stone little tiny pieces and push to manipulate the stone into the kidney but the stone fragment still needs to be finished in terms of its treatment but had to stop because of I encountered a significant amount of infection and pus in the kidney. Type of Anesthesia:: General Drains: stent left - Admit VTE Documentation VTE Present on Admission: No VTE Mechan Device Prophylaxis: SCD's
[2018-09-19] MEDS: Methocarbamol 750 MG Tablet PO (15:06)
[2018-09-19] MEDS: Senna Tablet 1 TABLET PO (21:23)
[2018-09-19] MEDS: Venlafaxine HCl 75 MG Tablet PO (21:23)
[2018-09-20] MEDS: Gabapentin 600 MG Tablet PO ×2 (00:17→06:08)
[2018-09-20 03:32] VITALS: BP 133/83; PULSE 62; RESP 16; TEMP 36.6; O2SAT 97
[2018-09-20] MEDS: Cefazolin 1 GM/50 ML BAG IV (06:08)
[2018-09-20 07:17] LABS: Hematocrit 37.3 % (40-54); Hemoglobin 11.7 g/dl (13.0-16.5); Mean Corp Hgb Conc 31.4 g/gl (32-36); Mean Corpuscular Hgb 32.1 pg (27.0-32.0); Mean Corpuscular Volume 102.5 fL (80-94); Mean Platelet Vol. 9.1 fl (6.2-12.0); Platelet Count 329 K/mm3 (150-450); RBC Distribution Width CV 12.4 % (11.6-14.6); RBC Distribution Width SD 45.1 fl (35.1-43.9); Red Blood Count 3.64 M/mm3 (4.6-6.2); White Blood Count 8.6 K/mm3 (4.4-11.0)
[2018-09-20 07:20] LABS: Scan Indicated on CBC? Y/N NO
[2018-09-20 07:28] VITALS: PULSE 62; RESP 18; O2SAT 95
[2018-09-20] MEDS: Budesonide Respules 0.5 MG/2 ML AMPUL.NEB. INHALATION (07:28)
[2018-09-20] MEDS: Albuterol 2.5 MG/3 ML VIAL.NEB. INHALATION (07:28)
[2018-09-20 07:47] LABS: Anion Gap 8 (5-15); BUN 22 mg/dL (7-18); BUN/Creat Ratio 22.7 RATIO (10-20); Calcium,Total 8.2 mg/dL (8.5-10.1); Chloride 113 mmol/L (98-107); Creatinine, Serum 0.97 mg/dL (0.70-1.30); EST Glomerular Filtration Rate 86 mL/min (>60); Est Glom Filt Rate - Afr Amer 104 mL/min (>60); Estimated Creatinine Clearance 83.73 ml/min; Glucose 101 mg/dL (74-106); Potassium 4.1 mmol/L (3.5-5.1); Sodium Level 147 mmol/L (136-145)
--- NOTE | 2018-09-20 09:05 | PCM.PN.BLA ---
Progress Note 53-year-old male status post ureteroscopy was able to laser the stone and manipulated and pushed back into the kidney but there is a lot of pus and debris in the kidneys had stopped the procedure place a stent he will go home today follow-up in the office for checkup.
--- NOTE | 2018-09-20 09:08 | DCINST_ITS ---
Discharge Diet: Light diet - advance as tolerated Discharge Activity: Return to Normal Activity Call your doctor if your incision/area has: Continuous Slow Oozing, Sudden Increased Bleeding, Increased Pain/ Swelling, Increased Redness, Foul Smelling Discharge, Swelling at the incision site Call your doctor if you observe: Fever of 101 or Higher Suture Line Care: Avoid Pulling/Pushing, Avoid Pinching/Bending Instructions: Ureteral Stents, Treating Kidney Stones: Ureteroscopic Stone Removal Allergies/Adverse Reactions: Allergies cat dander Allergy (Verified 08/04/18 10:22) Unknown grass pollen Allergy (Verified 08/04/18 10:22) Itching Medications to take at Discharge Acetaminophen [Tylenol Tablet] 650 mg PO Q6H PRN PRN tab 04/18/18 Methocarbamol [Robaxin-750] 750 mg PO TID PRN #180 tab 04/18/18 Metoprolol Tartrate [Lopressor (beta john)] 25 mg PO BID #180 tab 04/18/18 Pantoprazole Sodium [Protonix] 40 mg PO DAILY #90 tab 04/18/18 Tamsulosin HCl [Flomax] 0.4 mg PO DAILY #90 cap 04/18/18 Venlafaxine HCl [Effexor] 75 mg PO BID #180 tab 04/18/18 busPIRone [Buspar] 5 mg PO DAILY #7 tab 04/18/18 levETIRAcetam tablet [Keppra tablet] 1,000 mg PO BID #180 tab 04/18/18 Albuterol IH (ProAir) [Proair Hfa (SP)Vent Pts] 2 puff INHALATION Q4H PRN PRN 06/02/18 Budesonide/Formoterol 160/4.5 [Symbicort 160/4.5 Mcg Inhaler (SP)] 2 puff INHALATION BID 06/02/18 Polyethylene Glycol 3350 [Miralax] 17 gm PO DAILY 06/02/18 Sennosides [Senna] 8.6 mg PO BID 06/02/18 albuterol sulfate 2.5 mg/3 mL (0.083 %) solution for nebulization 2.5 mg INHALATION .q 6H PRN ml 08/04/18 aspirin 81 mg tablet,delayed release 81 mg PO DAILY 08/04/18 gabapentin 100 mg capsule 600 mg PO Q6H cap 08/04/18 Oxycodone [Oxyir] 5 mg PO Q6H PRN PRN 09/18/18 levETIRAcetam tablet [Keppra tablet] 500 mg PO DAILY 09/18/18 Acetaminophen [Tylenol Extra Strength] 500 mg PO Q4H PRN PRN #20 tablet 09/19/18 Ibuprofen 600 mg PO Q6H PRN PRN #20 tablet 09/19/18 Acetaminophen [Tylenol Extra Strength] 500 mg PO Q4H PRN PRN #20 tablet 09/20/18 Ciprofloxacin [Cipro] 500 mg PO BID #10 tablet 09/20/18 The following prescriptions were given: Acetaminophen [Tylenol Extra Strength] 500 mg PO Q4H PRN PRN #20 tablet PRN Reason: Pain Acetaminophen [Tylenol Extra Strength] 500 mg PO Q4H PRN PRN #20 tablet PRN Reason: Pain Ibuprofen 600 mg PO Q6H PRN PRN #20 tablet PRN Reason: Pain Ciprofloxacin [Cipro] 500 mg PO BID #10 tablet Primary Care Physician: Fredy Beth MD [Primary Care Provider] - Test Results: Test results from this visit will be discussed in further detail at your follow- up appointment, if applicable. Please Follow Up With: Johnathon Acevedo MD When: in 2 weeks, please call to make an appointment.
--- NOTE | 2018-09-20 09:27 | NURSING ---
[place] [facility] informed of discharge orders, instructions faxed to [facility] as requested
[2018-09-20 09:31] VITALS: BP 147/93; PULSE 68; RESP 18; TEMP 36.4; O2SAT 96
[2018-09-20] MEDS: Venlafaxine HCl 75 MG Tablet PO (09:34)
[2018-09-20] MEDS: Senna Tablet 1 TABLET PO (09:34)
[2018-09-20] MEDS: levETIRAcetam 1,000 MG Tablet 1000 MG PO (09:34)
[2018-09-20] MEDS: Polyethylene Glycol 3350 17 GM PACKET PO (09:34)
[2018-09-20 09:35] VITALS: PULSE 68
[2018-09-20] MEDS: Pantoprazole Sodium 40 MG Tablet PO (09:35)
[2018-09-20] MEDS: Metoprolol Tartrate 25 MG Tablet PO (09:35)
[2018-09-20] MEDS: Tamsulosin HCl 0.4 MG Capsule PO (09:35)
[2018-09-20] MEDS: Docusate Sodium 100 MG Capsule PO (09:35)
[2018-09-20] MEDS: busPIRone 15 MG TABLET 5 MG PO (09:35)
[2018-09-20] MEDS: levETIRAcetam 500 MG Tablet PO (09:36)
[2018-09-20] MEDS: oxyCODONE 5 MG Tablet PO (09:40)
[2018-09-20] MEDS: Methocarbamol 750 MG Tablet PO (09:40)
== END 2018-09-20 11:15 | disposition home or self-care (01) | DRG 660 ==
PROVIDERS: Anesthesiology; Admitting Provider Urology; Family Provider Family Medicine; PCP Family Medicine; Referring Provider Urology; Visit Provider Urology
PROC: 0TF78ZZ Fragmentation in Left Ureter, Via Natural or Artificial Opening Endoscopic (ICD-10-PCS; CPT 50575; principal; 2018-09-19 07:20)
DX: N13.6 Pyonephrosis (principal); I69.354 Hemiplegia and hemiparesis following cerebral infarction affecting left non-dominant side; J45.20 Mild intermittent asthma, uncomplicated; Z87.891 Personal history of nicotine dependence
CPT/HCPCS: 36415; 80048; 85027; 85730; 93005; 94640; 97802; J7030; A4216; C1769; C2617; J2405

== ENCOUNTER → 2018-09-30 16:23 | Outpatient (CLI) | payer OTHER, SELFPAY ==
[2018-09-19 12:07] VITALS: BMI 20.3
== END ==
PROVIDERS: Family Provider Family Medicine; PCP Family Medicine; Referring Provider Nurse Practitioner Adult Health; Visit Provider Nurse Practitioner Adult Health
DX: N39.0 Urinary tract infection, site not specified (principal)
CPT/HCPCS: 87077; 87086; 87088; 87186

== ENCOUNTER 2018-10-10 09:26 | Day surgery (SDC) | payer OTHER, SELFPAY ==
[2018-09-19 12:07] VITALS: BMI 20.3
[2018-10-10 09:53] VITALS: BP 166/93; PULSE 54; RESP 16; TEMP 37.3; O2SAT 97; BMI 22.6
--- NOTE | 2018-10-10 11:01 | HP.PCM_ITS ---
History and Physical Date of Admission: 10/10/18 I have ureteral stones (surgery). HPI: JOSE THOMPSON is a 53 year-old male established patient who is here for ureteral calculi after a surgical intervention. The problem is on the left side. He has had ureteroscopyfor treatment of his ureteral calculi. Patient denies stent, eswl, and percutaneous lithotomy. This procedure was done 2 weeks ago. He did pass stone fragments. This is not his first kidney stone. He does have a stent in place. He is currently having flank pain and back pain. He denies having groin pain, nausea, vomiting, fever, and chills. He does not have dysuria. He does have urgency. He does have frequency. had infection in left kidney still with large fragments recent UTI on amoxicillin for 7 days ALLERGIES: None MEDICATIONS: Albuterol Sulfate Amoxicillin 500 mg capsule 1 capsule PO TID Breo Buspirone Hcl Gabapentin Levetiracetam Methocarbamol Metoprolol Succinate Oxycodone Hcl Oxycontin Pantoprazole Sodium Polyethylene Glycol Pulmicort Senna Tamsulosin Hcl Tylenol Venlafaxine Hcl Notes: Has not had the pneumonia vaccine PSH: Cysto Dilate Stricture (M or F) - 09/19/2018 Cystoscopy And Treatment - 09/19/2018 Cystoscopy Insert Stent - 09/19/2018 Renal ESWL - 2014 NON- PSH: Colonoscopy Patient not documented to have received pneumococcal vaccination PMH: Calculus of kidney - 08/26/2017, Bilateral, - 2014 Encounter for screening for malignant neoplasm of prostate - 06/04/2016 Calculus of ureter (Acute), Left - 2014 Urinary calculus, unspecified, Bilateral - 2014 NON- PMH: Encounter for surgical aftcr following surgery on the sys - 2014 Mild intermittent asthma, uncomplicated Immunizations: None FAMILY HISTORY: High Blood Pressure - Runs in Family SOCIAL HISTORY: Marital Status: Preferred Language: Romanian; Ethnicity: Not Or ; Race: White Current Smoking Status: Patient has never smoked. Smoking cessation counseling was provided. Does not use smokeless tobacco. Social Drinker. Does not use drugs. Drinks 1 caffeinated drink per day. Has not had a blood transfusion. REVIEW OF SYSTEMS: Constitutional: Patient denies fever, chills, weight loss, and weight gain. Gastrointestinal: Patient reports abdominal pain. Patient denies diarrhea, constipation, nausea, and vomiting. Genitourinary: Patient reports history of stones. Patient denies frequent urination, urinary retention, get up at night to void, leakage of urine, painful urination, blood in the urine, frequent uti's, difficulty starting stream, weak stream/scanty, and bedwetting. VITAL SIGNS: 10/02/2018 03:48 PM Weight 150 lb / 68.04 kg Height 72 in / 182.88 cm BP 110/72 mmHg BMI 20.3 kg/m? - BMI Counseling was provided. MULTI-SYSTEM PHYSICAL EXAMINATION: Constitutional: Well-nourished. No physical deformities. Normally developed. Good grooming. Neck: Neck symmetrical, not swollen. Normal tracheal position. Respiratory: No labored breathing, no use of accessory muscles. Normal breath sounds. Cardiovascular: Regular rate and rhythm. No murmur, no gallop. Normal temp erature, normal extremity pulses, no swelling, no varicosities. Lymphatic: No enlargement of neck, axillae, groin. Skin: No paleness, no jaundice, no cyanosis. No lesion, no ulcer, no rash. Neurologic / Psychiatric: Oriented to time, oriented to place, oriented to person. No depression, no anxiety, no agitation. Gastrointestinal: No mass, no tenderness, no rigidity, non obese abdomen. Eyes: Normal conjunctivae. Normal eyelids. Ears, Nose, Mouth, and Throat: Left ear no scars, no lesions, no masses. Right ear no scars, no lesions, no masses. Nose no scars, no lesions, no masses. Normal hearing. Normal lips. Musculoskeletal: Normal gait and station of head and neck. Notes: pleasant, no distress, in wheelchair. abd soft nontender. bladder not distended or tender. PAST DATA REVIEWED: Source Of History: Patient Records Review: Previous Patient Records Urine Test Review: Urinalysis 08/26/17 06/04/16 PSA Total PSA 1.17 ng/mL 0.94 ng/mL Notes [facility] [address] [place], [address] This test was performed using the TPSA assay method for the [employer] system. Values obtained with different assay methods cannot be used interchangably. When changing PSA assays in the course of monitoring a patient, additional sequential testing should be carried out to confirm baseline values. [facility] [address] [place], [address] This test was performed using the TPSA assay method for the [employer] chemistry system. Values obtained with different assay methods cannot be used interchangably. When changing PSA assays in the course of monitoring a patient, additional sequential testing should be carried out to confirm baseline values. PROCEDURES: Notes: pt unable to leave urine sample today. ASSESSMENT: ICD-10 Details 1 : Calculus of ureter - N20.1 2 Acute pyelonephritis - N10 PLAN: Document Letter(s): Created for Patient: Clinical Summary Notes: finish up amoxicillin plan for surgery with ureteroscopy and laser stones and new stent plan for next october 10 at [facility].
[2018-10-10] MEDS: Lubricating Jelly 60 GM Tube 30 GM TOPICAL (11:10)
[2018-10-10] MEDS: Cefazolin 2 GM in 0.9% Normal Saline 100 ML IV (11:10)
--- NOTE | 2018-10-10 11:39 | DCINST_ITS ---
Discharge Diet: Light diet - advance as tolerated Discharge Activity: Return to Normal Activity Call your doctor if your incision/area has: Continuous Slow Oozing, Sudden Increased Bleeding, Increased Pain/ Swelling, Increased Redness, Foul Smelling Discharge, Swelling at the incision site Call your doctor if you observe: Fever of 101 or Higher Suture Line Care: Avoid Pulling/Pushing, Avoid Pinching/Bending Allergies/Adverse Reactions: Allergies cat dander Allergy (Verified 10/10/18 09:50) Unknown grass pollen Allergy (Verified 10/10/18 09:50) Itching Medications to take at Discharge Methocarbamol [Robaxin-750] 750 mg PO TID PRN #180 tab 04/18/18 Metoprolol Tartrate [Lopressor (beta john)] 25 mg PO BID #180 tab 04/18/18 Pantoprazole Sodium [Protonix] 40 mg PO DAILY #90 tab 04/18/18 Tamsulosin HCl [Flomax] 0.4 mg PO DAILY #90 cap 04/18/18 Venlafaxine HCl [Effexor] 75 mg PO BID #180 tab 04/18/18 busPIRone [Buspar] 5 mg PO DAILY #7 tab 04/18/18 levETIRAcetam tablet [Keppra tablet] 1,000 mg PO BID #180 tab 04/18/18 Albuterol IH (ProAir) [Proair Hfa (SP)Vent Pts] 2 puff INHALATION Q4H PRN PRN 06/02/18 Budesonide/Formoterol 160/4.5 [Symbicort 160/4.5 Mcg Inhaler (SP)] 2 puff INHALA TION BID 06/02/18 Polyethylene Glycol 3350 [Miralax] 17 gm PO DAILY 06/02/18 Sennosides [Senna] 8.6 mg PO BID 06/02/18 albuterol sulfate 2.5 mg/3 mL (0.083 %) solution for nebulization 2.5 mg INHAL ATION .q 6H PRN ml 08/04/18 aspirin 81 mg tablet,delayed release 81 mg PO DAILY 08/04/18 gabapentin 100 mg capsule 300 mg PO Q6H cap 08/04/18 levETIRAcetam tablet [Keppra tablet] 500 mg PO DAILY 09/18/18 Ibuprofen 600 mg PO Q6H PRN PRN #20 tablet 09/19/18 Acetaminophen [Tylenol Extra Strength] 500 mg PO Q4H PRN PRN #20 tablet 09/20/18 Amoxicillin [Amoxil] 500 mg PO Q8H 10/07/18 Baclofen [Lioresal Intrathecal] 150 - 160 mcg IT DAILY 10/07/18 Melatonin 10 mg PO QHS 10/07/18 Oxycodone HCl [Oxycodone HCl ER] 10 mg PO BID 10/07/18 Primary Care Physician: Fredy Beth MD [Primary Care Provider] - Test Results: Test results from this visit will be discussed in further detail at your follow- up appointment, if applicable. Please Follow Up With: Johnathon Acevedo MD When: please call to make an appointment.
--- NOTE | 2018-10-10 11:42 | PCM.OPRPT ---
Report of Operation Date of Procedure: 10/10/18 Pre-Operative Diagnosis: Left kidney stone status post stent Post-Operative Diagnosis: Same Surgery/Procedure Performed:: Cystoscopy removal of left stent, left retrograde pyelogram, interpretation of fluoroscopic images, left ureteroscopy laser lithotripsy of stone, and left stent placement Description of Surgical Findings:: 53-year-old male taken back to the operating room at the smooth induction of general anesthesia he was placed supine on the table in the dorsolithotomy position, penis and testicles were prepped and draped in usual sterile fashion went into the bladder with a 21 Luxembourgish rigid cystourethroscope grabbed the existing stent from the left side pulled out the meatus advanced a wire through the stent of the wire in place and over the wire I went in with a flexible 8 fr ureteroscope once I got to the kidney performed a retrograde pyelogram looked at the images and then inspected the upper pole midpole lower pole the calyx I then used a laser fiber and laser the stones in the upper pole and there is a large fragment in the midpole and some small fragment the lower pole of after all the stone fragments were laser little tiny pieces that should pass in her own I then worked my way down the ureter left the wire in place and then over the wire about backloaded the cystoscope and then placed a stent up on the left side. But the string on the stent for easy extraction in a few weeks. Drain the bladder patient anesthetic was reversed. Type of Anesthesia:: General Drains: stent - Admit VTE Documentation VTE Present on Admission: No VTE Mechan Device Prophylaxis: SCD's VTE Pharm Prophylaxis ordered?: No
[2018-10-10 11:51] VITALS: BP 136/80; BP 166/93; PULSE 53; RESP 16; TEMP 36.6; O2SAT 97
[2018-10-10 12:00] VITALS: BP 138/80; BP 166/93; PULSE 53; RESP 16; O2SAT 96
[2018-10-10 12:15] VITALS: BP 151/87; BP 166/93; PULSE 55; RESP 16; O2SAT 97
[2018-10-10 12:30] VITALS: BP 151/89; BP 166/93; PULSE 53; RESP 16; TEMP 37; O2SAT 96
[2018-10-10 13:45] VITALS: BP 141/86; BP 166/93; PULSE 52; RESP 16; TEMP 37.6; O2SAT 92
== END 2018-10-10 13:55 | disposition home or self-care (01) ==
LOC: SDC 09:27 → AC 09:29
PROVIDERS: Family Provider Family Medicine; PCP Family Medicine; Referring Provider Urology; Visit Provider Urology
PROC: 0TJ98ZZ Inspection of Ureter, Via Natural or Artificial Opening Endoscopic (ICD-10-PCS; CPT 52352; principal; 2018-10-10 11:10)
DX: N20.1 Calculus of ureter (principal); N10 Acute pyelonephritis; I69.354 Hemiplegia and hemiparesis following cerebral infarction affecting left non-dominant side; R13.10 Dysphagia, unspecified; J45.909 Unspecified asthma, uncomplicated; F41.9 Anxiety disorder, unspecified; Z79.82 Long term (current) use of aspirin; Z79.891 Long term (current) use of opiate analgesic; Z79.899 Other long term (current) drug therapy; Z87.440 Personal history of urinary (tract) infections; Z87.442 Personal history of urinary calculi; Z87.891 Personal history of nicotine dependence
CPT/HCPCS: 00873; 52356; 76000; J7120; C1769; C2617; J2405

== ENCOUNTER → 2018-10-14 09:21 | Outpatient (CLI) | payer OTHER, SELFPAY ==
[2018-10-10 09:53] VITALS: BMI 22.6
--- NOTE | 2018-10-14 09:35 | RAD_ITS ---
STUDY: X-RAY - ABDOMEN/PELVIS REASON FOR EXAM: Male, 53 years old. Flank pain TECHNIQUE: Two AP supine views of the abdomen and pelvis. COMPARISON: 04/07/2018 FINDINGS: Left-sided JJ stent appears to be in satisfactory position. Pain stimulator over the right lower quadrant. There is a 3 mm calcification overlying the right renal shadow There is an unremarkable bowel gas pattern. There is no demonstrated free abdominal air. The visualized liver, spleen and kidneys are grossly normal in size and morphology. Normal soft tissue structures. Normal visualized osseous structures. RAD/Abdomen Single View IMPRESSION: Likely right nephrolithiasis Electronically Signed: Audie Berg MD at 10:23 EDT , Service support ,
== END ==
PROVIDERS: Family Provider Family Medicine; PCP Family Medicine; Referring Provider Urology; Visit Provider Urology
DX: N20.0 Calculus of kidney (principal)
CPT/HCPCS: 74018

== ENCOUNTER → 2018-11-06 10:21 | Outpatient (CLI) | payer OTHER, SELFPAY ==
[2018-10-10 09:53] VITALS: BMI 22.6
--- NOTE | 2018-11-06 10:23 | STEWCON_ITS ---
Reason For Study: TIA/CVA; Pre-OP Stress Results Protocol: Dobutamine Stress Echo Maximum Predicted HR: 166 bpm Target HR: 141 bpm % Maximum Predicted HR: 85 % Heart Stage Duration Rate BP Comment (mm:ss) (bpm) No Chest Pain; Diluted Definity 10 ML Given; BP 160/101 Prior to Baseline 64 138/81Start of Test; NTG 0.4 MG SL Given Per Order DSE 10 MCG 5:34 67 129/79No Chest Pain DSE 20 MCG 3:00 77 133/70No Chest Pain DSE 30 MCG 3:00 102 137/82No Chest Pain; Atropine 0.5 MG IVP DSE 40 MCG 6:16 141 145/90No Chest Pain; Atropine 0.5 MG IVP Recovery 89 133/94No Chest Pain Stress Duration: 17:50 mm:ss Maximum Stress HR: 141 bpm METS: 1 Baseline Echocardiogram Findings The estimated ejection fraction is 65 %. Stress Echo Wall motion Data Resting WM Intermediate WM Stress WM Resting Wall Motion Wall Motion Stress No regional wall motion No regional wall motion abnormalities noted. abnormalities noted. EKG Data Normal intervals are noted. The patient was titrated from 10 mcg to a maximum of 40 mcg of dobutamine during the stress. The maximum heart rate attained was 151 beats per minute. This was 90% of maximum predicted heart rate. During dobutamine infusion, there were no ST or T wave changes noted to suggest ischemia. No clinical angina was noted. Interpretation Summary The estimated ejection fraction is 65 %. Normal, adequate, dobutamine echocardiogram. Negative for ischemia by EKG and echocardiographic criteria. No anginal symptoms noted. Moderate PACs and PVCs during dobutamine infusion which is a nonspecific finding. Appropriate blood pressure response to dobutamine. Final LVEF is 75%. Test terminated due to the attainment of target heart rate. No complications. The study was technically difficult. Contrast injection was performed. Ordering Physician: Ra Jain Referring Physician: Fredy Beth Performed By: Odilon Ro RCS
== END ==
PROVIDERS: Family Provider Family Medicine; PCP Family Medicine; Referring Provider Internal Medicine Cardiovascular Disease; Visit Provider Internal Medicine Cardiovascular Disease
DX: Z01.810 Encounter for preprocedural cardiovascular examination (principal); G81.94 Hemiplegia, unspecified affecting left nondominant side; I63.511 Cerebral infarction due to unspecified occlusion or stenosis of right middle cerebral artery; I71.00 Dissection of unspecified site of aorta
CPT/HCPCS: 93017; 93350; J7040; Q9957; A4216; C8928

== ENCOUNTER 2018-11-07 06:24 | Day surgery (SDC) | payer OTHER, SELFPAY ==
[2018-11-07 06:54] VITALS: BP 162/93; PULSE 60; RESP 16; TEMP 37.3; O2SAT 100; BMI 21.4
[2018-11-07] MEDS: Cefazolin 2 GM in 0.9% Normal Saline 100 ML IV (08:28)
--- NOTE | 2018-11-07 08:30 | PCM.DC.URO ---
Discharge Diet: Light diet - advance as tolerated Discharge Activity: Return to Normal Activity Allergies/Adverse Reactions: Allergies cat dander Allergy (Verified 11/05/18 08:29) Unknown grass pollen Allergy (Verified 11/05/18 08:29) Itching Medications to take at Discharge Metoprolol Tartrate [Lopressor (beta john)] 25 mg PO BID #180 tab 04/18/18 Pantoprazole Sodium [Protonix] 40 mg PO DAILY #90 tab 04/18/18 Tamsulosin HCl [Flomax] 0.4 mg PO DAILY #90 cap 04/18/18 Venlafaxine HCl [Effexor] 75 mg PO BID #180 tab 04/18/18 busPIRone [Buspar] 5 mg PO DAILY #7 tab 04/18/18 Albuterol IH (ProAir) [Proair Hfa (SP)Vent Pts] 2 puff INHALATION Q4H PRN PRN 06/02/18 Budesonide/Formoterol 160/4.5 [Symbicort 160/4.5 Mcg Inhaler (SP)] 2 puff INHALATION BID 06/02/18 Polyethylene Glycol 3350 [Miralax] 17 gm PO DAILY 06/02/18 Sennosides [Senna] 8.6 mg PO BID 06/02/18 albuterol sulfate 2.5 mg/3 mL (0.083 %) solution for nebulization 2.5 mg INHALATION .q 6H PRN ml 08/04/18 aspirin 81 mg tablet,delayed release 81 mg PO DAILY 08/04/18 gabapentin 100 mg capsule 300 mg PO Q6H cap 08/04/18 Baclofen [Lioresal Intrathecal] 150 - 160 mcg IT DAILY 10/07/18 Melatonin 5 mg PO QHS 10/07/18 Acetaminophen [Tylenol Extra Strength] 500 mg PO Q4H PRN PRN #20 tablet 10/10/18 Methocarbamol [Robaxin-750] 750 mg PO TID 11/05/18 Oxycodone CR [Oxycontin] 10 mg PO Q12H 11/05/18 levETIRAcetam tablet [Keppra tablet] 1,250 mg PO BID 11/05/18 Ciprofloxacin [Cipro] 500 mg PO BID #6 tab 11/07/18 Hydrocodone/Acetaminophen [[place] 5-325 Tablet] 1 ea PO Q6H PRN PRN #20 tab 11/07/18 Phenazopyridine HCl [Pyridium] 100 mg PO TID #20 tab 11/07/18 The following prescriptions were given: Hydrocodone/Acetaminophen [[place] 5-325 Tablet] 1 ea PO Q6H PRN PRN #20 tab PRN Reason: Pain Ciprofloxacin [Cipro] 500 mg PO BID #6 tab Phenazopyridine HCl [Pyridium] 100 mg PO TID #20 tab Primary Care Physician: Fredy eBth MD [Primary Care Provider] - Test Results: Test results from this visit will be discussed in further detail at your follow-up appointment, if applicable. Please Follow Up With: Johnathon Acevedo MD When: please call to make an appointment.
--- NOTE | 2018-11-07 09:19 | PCM.OPRPT ---
Report of Operation Date of Procedure: 11/07/18 Pre-Operative Diagnosis: Right ureteral calculi status post stent placement Post-Operative Diagnosis: Same Surgery/Procedure Performed:: Cystoscopy, removal of existing stent, right ureteroscopy, retrograde pyelogram interpretation of fluoroscopic images, ureteroscopy and laser lithotripsy, no stent placed Description of Surgical Findings:: 53-year-old male who had a several stones in the right kidney and underwent cystoscopy and stent placement of not able to get into the kidney last time because of some narrowing in the ureter Would not allow for ureteroscopy to rule up the stent into the left ureter dilate, patient now comes back for ureteroscopy and laser lithotripsy, currently has a stent in place that is left to dilate for the last 2 weeks. 53-year-old male taken back to the operating room the smooth induction of general anesthesia he was placed in dorsolithotomy position the penis and testicles are prepped and draped in usual sterile fashion within the bladder with a 21 Frisian rigid cystourethroscope the patient was quite a difficult positioning very stiff legs very stiff hips he has a history of aortic rupture and he is a chronically debilitated. After repositioning for comfort to make sure that we did not stretch any tight ligaments or pressure points in his legs he was then placed in dorsolithotomy position went into the bladder with a 21 Frisian rigid cystourethroscope grabbed the existing stent pulled out the meatus ran a wire up the stent and over the wire I went in with the flexible ureteroscope was able this time to get up the ureter quite easily and then once again said the kidney performed a retrograde pyelogram looked at the images could identify the stones in the upper pole midpole and some lower pole is also one small fragment in the deep lower pole of the pocket I then lasered all the stones that were visible the one stone in the lower pole I cannot reach all the other stones were laser little tiny pieces once to perform laser lithotripsy at all the stones were lasered and little small pieces that should pass on her own I worked my way down the ureter left the wire in place I backloaded over the wire with a cystoscope at that point the patient's anesthetic was reversed and the legs are bernard together and patient was struggling under anesthesia and so was not able to get back into the bladder so decided not to leave a stent in pulled out the wire drain the bladder and the patient anesthetic was further reversed to take back to PACU good condition. He can follow-up in a few weeks for checkup. No stent was left Type of Anesthesia:: General Drains: none - Admit VTE Documentation VTE Present on Admission: No VTE Mechan Device Prophylaxis: SCD's
[2018-11-07 09:31] VITALS: BP 127/62; BP 162/93; PULSE 62; RESP 16; TEMP 36.7; O2SAT 96
[2018-11-07 09:45] VITALS: BP 123/60; BP 162/93; PULSE 69; RESP 16; TEMP 36.6; O2SAT 95
[2018-11-07 10:00] VITALS: BP 128/77; BP 162/93; PULSE 69; RESP 16; O2SAT 95
[2018-11-07 10:15] VITALS: BP 118/84; BP 162/93; PULSE 68; RESP 16; O2SAT 96
[2018-11-07 11:30] VITALS: BP 128/98; BP 162/93; PULSE 65; RESP 16; TEMP 37.3; O2SAT 95
== END 2018-11-07 11:51 | disposition home or self-care (01) ==
LOC: SDC 06:24 → AC 06:25
PROVIDERS: Family Provider Family Medicine; PCP Family Medicine; Referring Provider Urology; Visit Provider Urology
PROC: 0TJ98ZZ Inspection of Ureter, Via Natural or Artificial Opening Endoscopic (ICD-10-PCS; CPT 52352; principal; 2018-11-07 08:25)
DX: N20.0 Calculus of kidney (principal); I10 Essential (primary) hypertension; J45.20 Mild intermittent asthma, uncomplicated; F41.9 Anxiety disorder, unspecified; Z79.82 Long term (current) use of aspirin; Z79.899 Other long term (current) drug therapy; Z87.442 Personal history of urinary calculi; Z87.440 Personal history of urinary (tract) infections; Z86.79 Personal history of other diseases of the circulatory system; Z87.01 Personal history of pneumonia (recurrent); Z87.891 Personal history of nicotine dependence
CPT/HCPCS: 00918; 52353; 76000; J7120; J2405

== ENCOUNTER 2019-07-23 09:00 | Outpatient (RCR) | payer OTHER, SELFPAY ==
--- NOTE | 2019-01-08 16:00 | SOAP_ITS ---
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 The Patient is well known to this clinician from recent [facility] Acute Rehabilitation Unit and Transitional Care Unit admission; prior admission at [facility] associated with aspiration pneumonia status post right middle cerebral artery cerebrovascular accident requiring decompressed right craniotomy (September 2017) with resulting left sided flaccidity; severe and persistent dysphonia secondary to bilateral vocal fold paralysis / vocal fold spasticity of iatrogenic cause status post full and partial injections with Radiesse Voice injectable, with continued albeit somewhat improving executive functioning and left visuospatial neglect. The Patient is retired, college educated, and 29 years with 2 adult children. He continues to appear somewhat under-reactive in affect; though does occasionally become frustrated or emotional, this typically would be considered a somewhat appropriate situational response. He reports that while his left visuospatial functioning has improved, though his left visuospatial neglect does continue to present problems. Both the Patient and the Patients spouse deny any issues with PO intake sufficiency at this time, with no overt signs or symptoms of aspiration reported, no recent aspiration related pulmonary complications or concerns, and no fluctuations in weight. MEDICAL HISTORY: Prior aortic dissection repair (10/07/2017) with resulting cerebrovascular accident involving the cerebrum requiring decompressed right craniotomy (10/13/2017) with resulting right sided flaccidity, bilateral vocal fold paralysis status post full and partial injections with Radiesse Voice injectable, severe malnutrition initially requiring nasogastric tube supplementation and later percutaneous endoscopic gastrostomy (PEG) tube placement, acute hypoxia requiring intubation and tracheostomy tube placement (removed), asthma, hypertension, acute kidney injury, status post inguinal herniorrhaphy, kidney stones status post lithotripsy, depression, left ankle open reduction and internal fixation, left wrist open reduction and internal fixation, bilateral heel spur removal. PREVIOUS MODIFIED BARIUM SWALLOW STUDY: 03/21/2018 MBS revealed mild to moderate oropharyngeal dysphagia with intermittent transient shallow penetration 03/07/2018 MBS revealed moderate to severe oropharyngeal dysphagia (R13.12) with grade III SILENT aspiration and grade IV overt aspiration of thin liquids. 01/23/2018 MBS at [facility] revealed mild oropharyngeal dysphagia, improved from previous study, cleared for dysphagia level 3 diet. 01/17/2018 MBS at [facility] revealed moderate oropharyngeal dysphagia w/ slowed oral motor movement, impaired oral transit, posterior bolus loss, delayed pharyngeal swallow onset, mild pharyngeal residue, no aspiration or penetration, cleared for PO intake. ADDITIONAL OBJECTIVE ASSESSMENT RESULTS: 03/14/2018 CT revealed a large right-sided subdural fluid and gas collection contributing to mass effect and midline shift overlying a region of prominent pneumocephalus from the old right MCA distribution infarct. FUNCTIONAL STATUS ASSESSMENT RESULTS: Lyman Index of [place] in Activities of Daily Livin/6 Bathin Dressin Toiletin Transferrin Continence: 1 Feedin Stephen ? Darshan Instrumental Activities of Daily Living Scale (IADL): 2/8 Ability to Use Telephone: 1 Shoppin Food Preparation: 0 Housekeepin Laundry: 0 Mode of Transportation: 0 Responsibility for Own Medications: 0 Ability to Handle Finances: 1 Functional Ambulation Category (FAC): 3 (dependent for supervision) COGNITIVE COMMUNICATION ASSESSMENT RESULTS (QUANTITATIVE): Generalized Anxiety Disorder 7-item (TANNER-7) scale: 4 (no anxiety disorder) Patient Health Questionnaire (PHQ-9): 2 (minimal to no risk) Abbreviated Mental Test ? 4 (AMT-4): 4 (normal) Assessment Test for Delirium & Cognitive Impairment (4AT): 0 (normal) Short Orientation Memory Concentration Test (SOMCT): 26/28 (minimal impairment) Aphasia Severity Rating Scale (ASRS): 5 (Minimal discernible speech handicap) Apraxia of Speech Rating Scale (ASRS-v1): 0 (not present) Voice Handicap Index ? 10 (VHI-10): 18 (moderate alteration) [place] Test: Correct: 29/35 Total Time: 3:19 Omissions (right): 5 (> 6 suggestive of right visual neglect) Omissions (left): 1 (> 6 suggestive of left visual disturbance) Omissions (total): 6 (> 3 suggests an attentional deficit) Distractors: 0/264 Scanning Strategy: Left to right Trial Making Test (TMT): Part A: 64 seconds (> 78 seconds abnormal) Errors: 0 Part B: 200 seconds (> 273 seconds abnormal) Errors: 2 Digit Memory Test (DMT): Forward Score: 8 Backwards Score: 4 Total: 12 Standard Score: 79 Percentile Equivalent: 8th Attention Process Training (APT) Test: Sustained Attention: (residual score: /30) Complex Sustained Attention: (residual score: 30) Selective Attention: (residual score: /30) Divided Attention: (residual score: 0/30) Alternating Attention: (residual score: 30) Functional Assessment of Verbal Reasoning and Executive Strategies (FAVRES) TASK #2: SCHEDULING Accuracy: (Raw: 3 Percentile: 3 SS: 51) Rational: (Raw: 3 Percentile: 21 SS: 88) Time: (Raw: 10 Percentile: 94 SS: 119) Total Reasoning Sub-skills: (Raw: 13) COGNITIVE COMMUNICATION ASSESSMENT RESULTS (QUALITATIVE): EXECUTIVE FUNCTIONING: difficulty anticipating problems, analyzing situations, planning solutions, and executing solutions; noted difficulty identifying and correcting errors, incorporating feedback; mild emotional lability, reporting that he feels more extreme or quickly changing emotional highs or lows; somewhat flat / blunted affect; mild cognitive inflexibility, with the Patient occasionally becoming stimulus bound; no issues with task initiation and drive, though does occasionally demonstrate difficulty stopping a behavior or task (response inhibition); difficulty with sequencing and timing; continually improving awareness / insight into deficits. MEMORY: intact explicit and implicit memory functioning; impaired working memory complicated by higher level executive based deficits ATTENTION: intact selective, voluntary, and focused attention; impaired divided and alternating VISUOSPATIAL ABILITIES: moderate left visuospatial neglect with errors noted left of midline and increasing dramatically within the far left and lower left helms. LANGUAGE FUNCTIONING: rushed / rapid production rate with breathy vocal quality; no aphasia, anomia, apraxia, dyslexia noted; mild to moderate dysgraphia noted with reported poor baseline orthographic production. 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 RECOMMENDATIONS: The Patient requires intensive skilled speech-language intervention targeting higher level cognitive functioning via training and implementation of metacognitive strategy training, with considerations for Time pressure management strategy, Msxa-[id number]-Hr-Review / Predict-perform procedures, Goal management training, and Self talk procedures; targeting visuospatial skills, with considerations for systemic and dry placer machine operator scanning therapy with training and implementation of evidenced based principles for visual scanning; with preferences for an errorless learning approach. FUNCTIONAL OUTCOMES: OUTCOME 1: The Patient will utilize external and internal compensatory strategies to improve attention to the left side during both structured and unstructured therapeutic tasks w/ less than 2 cues per session over 2 consecutive sessions to facilitate optimal level of safe functioning within the home environment. OUTCOME 2: The Patient will utilize structured compensatory executive functioning / processing strategies identified and implemented during structured therapeutic to facilitate improved cognitive processing and achievement of the highest level of safe, independent functioning with 100% accuracy over 3 consecutive sessions. OUTCOME 3: The Patient will independently complete complex money management tasks with use of previously established compensatory strategies to facilitate achievement of the highest level of safe, independent functioning with 90% accuracy over 2 consecutive sessions. OUTCOME 4: Goal adjustment as needed Leonard Ye M.A., CCC-PLANT AND EQUIPMENT WORKER, CBIS MBSImP Certified, LSVT Certified [facility] Speech-Language Pathology Department [email or web address]
== END 2019-07-23 19:00 | disposition home or self-care (01) ==
LOC: SP 09:00
PROVIDERS: Family Provider Family Medicine; PCP Family Medicine; Referring Provider Family Medicine; Visit Provider Family Medicine
DX: I63.511 Cerebral infarction due to unspecified occlusion or stenosis of right middle cerebral artery (principal)
CPT/HCPCS: 92507

== ENCOUNTER 2019-07-23 10:00 | Outpatient (RCR) | payer OTHER, SELFPAY ==
--- NOTE | 2019-01-14 14:23 | HP.OTEVAL_ITS ---
Patient's Visit Information JOSE THOMPSON Jr. is a 53 year old M, referred to Occupational Therapy by Fredy Beth MD, with a diagnosis of acute ischemic R MCA stroke. Date of Evaluation: 01/13/19 Occupational Therapist: Anjali Goncalves - Subjective Subjective: Pt seen for initial occupational therapy evaluation for acute ischemic R MCA stroke. Occured September 2017. Pt went to rehab at [facility] rehab floor, and home PT/OT rehab. R hand dominent. L arm and leg affected with stroke. Pt states PMHx fx R wrist 6 yrs ago. Lives w/ spouse, requires assist with showering and dressing tasks, walk in shower, shower bench, grab bars, HHS. Grab bars around toilet w/ CHC. Toileting independently. Spouse works multimedia authoring specialist, family comes in to provide SUP. Animals-dog. Spouse/family assist w/ IADLs. Hobbies, golf, soccer, tennis. Has palm protector, ball stretcher for L hand. Recieves botox L arm. Pt states has had falls in past 3 months living room and bathroom but not hurt when fell. - Objective Objective/Observation: contracted L arm, increased tone L UE, limited ROM L UE. - ROM Shoulder: PROM L flexion 0/85', abduction 0/30' Elbow: PROM L -60'/123' Wrist: PROM L 50/43 MP: -20/82 MP: index -10/50, MF -10/55, RF -12/48, PF -2/10 ROM Comments: R UE WFL. Increased tone L UE. Pt recieves botox in L UE. - Strength Injection Specialist: R 74#, L unable Lateral Pinch: R 9# L unable Tripod Pinch: R 10#, L unable Strength Comments: R UE Generalized MMT 4+/5. L UE Generalized MMT 1/5 - Edema Other: Slight edema L hand MP joints. - Sensation Sensation Comments: slight numbness L digits 3, 4, 5. - Quick DASH-Disab of Arm,Shoulder& Hand Quick DASH Score: 65.9075 - Goals Goal:: Pt will progress w/ L elbow extension to -10 degrees PROM after prolonged stretching techniques. Pt will progress w/ L wrist flexion and L shoulder flexion by 20' PROM to assist with abilty to complete UB dressing and bathing with less difficulty by d/c from OT services. Goal:: Pt will be able to vijay/doff socks with SUP level and shoes with MIN A. Goal:: Pt/spouse will be educated on appropriate orthosis for L hand/wrist to decrease risk of further contracture Goal:: Pt will be able to wear new orthosis for L hand/wrist for 8 hrs with good skin integrity and demo ability to check for good skin integrity. Goal:: Pt/spouse will be educated on DME/AE, comp strategies to assist w/ BADL tasks with good understanding and demo 100%x. Goal:: Pt will be educated on L UE HEP with good understanding and demo 85% yue e. - Rehabilitation General Assessment: Pt demo decreased ROM L UE, increased contracture of L hand and decreased independence with BADL tasks all indicating a need for skilled OT interventions to increase indep with self care tasks using AE as needed with good safety awareness, increase PROM/AROM L UE, educate on appropriate splint for L hand and wrist to decrease tone and further contracture, educate on good skin integrity L hand with use of orthosis and educate on L UE HEP. Rehabilitation Potential: Good - Anticipated Interventions Anticipated Interventions: A/AAROM/PROM, Strengthening, Modalities, Orthoses, Joint Protection/Energy Conservation, Neuro Reeducation, ADL Training, Education re assistive Equipment, Education re Diagnosis, Education re Skin Care and Precautions, Education re Correct Donning Tech,Care&Wearing Sched Comp Garments, Caregiver Training, Home Program - Visit Plan Frequency: 2x /Week Duration: 4-6 Weeks General Plan: increase ROM L UE, educate on L UE HEP, skin integrity of L UE, appropriate orthosis for L hand/wrist, increase indep w/ self care tasks, educate on DME/AE, comp strategies to assist with BADLs with good safety. TEXT: Thank you for the opportunity to evaluate your patient. For Medicare and Medicare HMO plans, please review the plan of care and approve it. It will need to be FAXED BACK to us at [phone] for Medicare purposes. Please let me know if there are questions or concerns regarding this plan of care. Physician Signature: D ate:
--- NOTE | 2019-01-21 18:09 | HP.PTEVAL ---
Patient's Visit Information JOSE THOMPSON Jr. is a 53 year old M referred to Physical Therapy by Fredy Beth MD with a diagnosis of Acute ischemic MCA stroke. Date of Evaluation: 01/13/19 Physical Therapist: SAMUEL Bradford - Visit Plan Frequency: 2-3x /Week Duration: 3 Months Plan: 2-3X/ week for 12 weeks for activation of L hip flex and knee flexion, sit to stand transfers with proper form, steps, functional transfers, strengthening, balance , weight shifting, stretching with HEP - Subjective Findings: October 06 went to ER cause bad case of GERD and did heart work up and he was fine and was sent home. October 07, 2017 asked to stay home with him and he collapsed and life flighted to [facility] and repaired AA rupture and then had his stroke. He was in rehab for various places. He has a baclofen pump and Justin from [facility] was seeing him. Pt has one floor accessable home. They are bulding another house 1 floor. He needs a little assistance with feet to get out of bed. Stairs: R sided rail but has not done them. Sit to stand: He needs a railing to get up from the chair. Falling: he has needed help. He does not have a med alert button. They do have a camera in the home that the , Dana can watch him at all times. He has been using the Quad cane to walk for about 3-5 months now. He has a transfer bench to get in/ out of the shower. Pt's goals: to get rid of the quad cane and walk better. social: used to play soccer, tennis , golf. Now he likes to listen to music, watch TV and some more walking now. He goes nuts now not working out. He has an elliptical machine at home but thats it. They are switching baclofen doctors now..... as he feels that he does not have enough. - Objective Gait: walks with Quad cane and L AFO with increase scissoring of the L LE. Pt walks using the L hip adductors and at times heels touching with gait. 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 PROM: extreme rigidity of L LE... hard to get knee and hip to flex. AROM: Pt has almost no active L knee flexion/ hip flexion. Pt is able to side step in the // bars using // bars and min A and verbal cues to try and keep toes straight fw. Pt is able to ascend a step in // bars ( 4 inch) once he is able to get his L foot up onto the step ( needs min A to do so). Sit to stand: pt needs UE support of the R hand and verbal cues to try and get L knee into flexion using R LE before trying to stand. He can do it on first attempt up to a quad cane. - Goals Goal 1:: I HEP Goal Time Frame: 8-12 Weeks Goal 2:: Be able to ascend and descend the steps with 1 hand rail with CGA Goal Time Frame: 8-12 Weeks Goal 3:: Increase R hip flex to be able to raise his R leg off the mat table to encourage better gait mechanics. Goal Time Frame: 8-12 Weeks Goal 4:: Be able to sit to stand X 10 on first attempt. Goal Time Frame: 8-12 Weeks Goal 5:: Be able to side step along the // bars with SBA and trying to keep toes pointed forward. Goal Time Frame: 8-12 Weeks Goal 6:: Be able to tolerated PROM into L hip and knee flexion to try and break up tone. Goal Time Frame: 8-12 Weeks - Rehabilitation Potential Rehabilitation Potential: Good - Anticipated Interventions Patient/Client Instruction: Educate patient on: Condition, Plan of Care For the Purpose of:: To increase ROM, To improve nutrient delivery to tissue, To improve muscle performance and motor function, To improve ability to perform ADL's, To increase tolerance to activity/condition/position, To improve performance and independence with ADL's, To decrease level of supervision to perform tasks, To improve ability of physical actions for home/community/work/leisure, To improve gait and locomotor functions, To improve health of tissue, To decrease soft tissue restriction, To increase flexibility/ROM, To improve endurance, To improve balance, To improve safety with gait Therapeutic Exercise to Include: Strength training, Endurance training, Balance training, Body mechanics, Postural training, Flexibilty training, Gait and locomotor training, Neuromotor development, Passive ROM, Active ROM For the Purpose of:: To increase ROM, To improve nutrient delivery to tissue, To improve muscle performance and motor function, To improve ability to perform ADL's, To increase tolerance to activity/condition/position, To improve performance and independence with ADL's, To decrease level of supervision to perform tasks, To improve ability of physical actions for home/community/work/leisure, To improve gait and locomotor functions, To improve health of tissue, To decrease soft tissue restriction, To increase flexibility/ROM, To improve endurance, To improve balance, To improve safety with gait Functional Training to Include: Gait training For the Purpose of:: To improve gait and locomotor functions, To improve safety with gait Manual Therapy Techniques to Include: Passive ROM For the Purpose of:: To increase ROM Thank you for the opportunity to evaluate your patient. For Medicare and Medicare HMO plans, please review the plan of care and approve it. It will need to be FAXED BACK to us at [phone] for Medicare purposes. For Medicare only, by signing this I certify the plan of care. Please let me know if there are questions or concerns regarding this plan of care. Physician Signature: Date:
--- NOTE | 2019-02-26 16:33 | OTREVAL_ITS ---
Fredy Beth MD, It has been my pleasure to treat JOSE THOMPSON . over the last 11 visits for acute ischemic R MCA stroke. Please see the progress note below for an update on the occupational therapy plan of care! Subjective: Pt amb back to OT department with spouse, stating doing well today, and just finished up with PT. No pain. Objective/Function: moist heat applied to L shoulder prior to prolonged stretching techniques Plan Frequency: 1-2x /Week Duration: 6 Weeks Plan: OT Re-Eval. Pt making good progress w/ OT goals. Pt demo incresaed independence with self care dressing tasks using reaching and has been educated on adaptive technqiues and adaptive equipment. Pt able to vijay/doff socks/shoes R foot MIN A and L foot max assist, pt working on dressing tasks daily at home. Pt progressing with PROM L UE after prolonged strength. Pt was -60 degrees elbow extension and now able to get to -30' elbow extension. Pt has progressed w/ PROM L shoulder flexion to 108'. Pt L wrist PROM 50'/43'. Pt and spouse have been ed ucated on joint protection, energy conservation, safety awareness w/ BADLs and use of DME/AE to assist with BADLs w/ good understanding and demo. Pt tolerating resting hand splint for 4hrs plus and demo good skin integrity, pt working on wearing splint for 8 hrs for at night. Pt would continue to benefit from direct occupational therapy services to increase ROM and strength of L UE all joints, increase indep w/ BADL tasks using AE as needed, and increase safety with BADLs increase ability to tolerate resting hand splint while maintaining good skin integrity. Rec 1-2x/wk x 6wks Goals - Goals Goal:: Pt will progress w/ L elbow extension to -10 degrees PROM after prolonged stretching techniques. Pt will progress w/ L wrist flexion and L shoulder flexion by 30' PROM to assist with abilty to complete UB dressing and bathing with less difficulty by d/c from OT services. Goal:: Pt will be able to vijay/doff socks with SUP level and shoes with MIN A. Goal:: Pt will be able to complete UB dressing w/ set up using adaptive technqiues as needed with good understanding and demo 100%x Goal:: Pt/spouse will be educated on appropriate orthosis for L hand/wrist to decrease risk of further contracture Goal:: Pt will be able to wear new orthosis for L hand/wrist for 8 hrs with good skin integrity and demo ability to check for good skin integrity. Goal:: Pt/spouse will be educated on DME/AE, comp strategies to assist w/ BADL tasks with good understanding and demo 100%x. Goal:: Pt will be educated on L UE HEP with good understanding and demo 85% time. Anticipated Interventions Anticipated Interventions: A/AAROM/PROM, Strengthening, Modalities, Orthoses, Joint Protection/Energy Conservation, Neuro Reeducation, ADL Training, Education re assistive Equipment, Education re Diagnosis, Education re Skin Care and Precautions, Education re Correct Donning Tech,Care&Wearing Sched Comp Garments, Caregiver Training, Home Program Please do not hesitate to contact me at [phone] by phone or if you have questions or concerns regarding this new plan of care! Sincerely, Anjali Goncalves
--- NOTE | 2019-04-07 18:46 | HP.OTREVAL ---
Fredy Beth MD, It has been my pleasure to treat JOSE THOMPSON . over the last 20 visits for acute ischemic R MCA stroke. Please see the progress note below for an update on the occupational therapy plan of care! Subjective: Pt states L leg feels tired from PT but no pain today. Pt had botox L arm Saturday04/06/19. Objective/Function: Pt making progress w/ OT goals. Pt recieved botox for L arm to decrease spasticity tone. Pt has met goal for L elbow PROM extension -10. Pt's L shoulder flexion PROM 112' and PROM L wrist 50/70. Pt LB dressing requires MOD A with use of LH straw hat brim cutter operator and extra time needed for donning/doffing socks and pants over L foot. Pt tolerating resting hand splint for 6 hrs with good skin integerity. Pt requires further skilled OT interventions to continue to increase indep w/ UB/LB dressing tasks, increase indep to complete simple meal prep at home, educate on appropriate gym equipment for exercise routine at gym and BUE HEP, increase R UE strength and continue to complete PROM L UE to decrease risk of further contracture. 1-2x/wk x 4-6wks. Plan Frequency: 1-2x /Week Duration: 4-6 Weeks Plan: see re-eval Goals - Goals Goal:: Pt will progress w/ R UE strength 4+/5 to assist w/ lifting R leg up and over for bathing and LB drsesing tasks independently Goal:: Pt will progress w/ L elbow extension to -10 degrees PROM after prolonged stretching techniques. Pt will progress w/ L wrist flexion and L shoulder flexion by 30' PROM to assist with abilty to complete UB dressing and bathing with less difficulty by d/c from OT services. Goal:: Pt will be able to vijay/doff socks with SUP level and shoes with MIN A. Goal:: Pt will be able to complete UB dressing w/ set up using adaptive technqiues as needed with good understanding and demo 100%x Goal:: Pt/spouse will be educated on appropriate orthosis for L hand/wrist to decrease risk of further contracture Goal:: Pt will be able to wear new orthosis for L hand/wrist for 8 hrs with good skin integrity and demo ability to check for good skin integrity. Goal:: Pt/spouse will be educated on DME/AE, comp strategies to assist w/ BADL tasks with good understanding and demo 100%x. Goal:: Pt will be educated on L UE HEP with good understanding and demo 85% time. Goal:: Pt will be educated on appropriate gym equipment for R UE strengthening with good demo and understanding 100%x Goal:: Pt will be able to complete simple meal prep SUP level with good safety Anticipated Interventions Anticipated Interventions: A/AAROM/PROM, Strengthening, Modalities, Orthoses, Joint Protection/Energy Conservation, Neuro Reeducation, ADL Training, Education re assistive Equipment, Education re Diagnosis, Education re Skin Care and Precautions, Education re Correct Donning Tech,Care&Wearing Sched Comp Garments, Caregiver Training, Home Program Please do not hesitate to contact me at [phone] by phone or if you have questions or concerns regarding this new plan of care! Sincerely, Anjali Goncalves
--- NOTE | 2019-06-22 17:46 | HP.PTREVAL_ITS ---
Fredy Beth MD, It has been my pleasure to treat JOSE THOMPSON Jr. over the last 59 visits for Acute ischemic MCA stroke. Please see the progress note below for an update on the physical therapy plan of care! Subjective: Pt came in with an ankle lace up brace that looks like it is cutting into him. Objective/Function: Gait training in // bars with light touvh on 1// bar rail and verbal cues to keep R toes straight ahead and R knee valgus..... working on using R hand therapist PATTERN GENERATOR OPERATOR. Plan Plan: 3X/ week for additional 12 weeks for activation of L hip flex and knee flexion, gait progression with a single point cane, standing balance activities that increase balance and weight bearing through the L LE, sit to stand transfers with proper form, steps, functional transfers, strengthening, balance , weight shifting, stretching with HEP Goals Goal 1:: I HEP Goal Time Frame: 8-12 Weeks Goal 2:: Be able to walk around the dept with SBA with single point cane. Goal Time Frame: 8-12 Weeks Goal 3:: Increase R hip flex to be able to raise his R leg off the mat table to encourage better gait mechanics. Goal Time Frame: 8-12 Weeks Goal Progress: Goal Met Goal 4:: Be able to sit to stand X 10 on first attempt. Goal Time Frame: 8-12 Weeks Goal Progress: Goal Met Goal 5:: Be able to side step along the // bars with SBA and trying to keep toes pointed forward. Goal Time Frame: 8-12 Weeks Goal Progress: Progressing Goal 6:: Be able to tolerated PROM into L hip and knee flexion to try and break up tone. Goal Time Frame: 8-12 Weeks Goal Progress: Progressing Anticipated Interventions Patient/Client Instruction: Educate patient on: Condition, Plan of Care For the Purpose of:: To increase ROM, To improve nutrient delivery to tissue, To improve muscle performance and motor function, To improve ability to perform ADL's, To increase tolerance to activity/condition/position, To improve performance and independence with ADL's, To decrease level of supervision to perform tasks, To improve ability of physical actions for home/community/work/leisure, To improve gait and locomotor functions, To improve health of tissue, To decrease soft tissue restriction, To increase flexibility/ROM, To improve endurance, To improve balance, To improve safety with gait Therapeutic Exercise to Include: Strength training, Endurance training, Balance training, Body mechanics, Postural training, Flexibilty training, Gait and locomotor training, Neuromotor development, Passive ROM, Active ROM For the Purpose of:: To increase ROM, To improve nutrient delivery to tissue, To improve muscle performance and motor function, To improve ability to perform ADL's, To increase tolerance to activity/condition/position, To improve performance and independence with ADL's, To decrease level of supervision to perform tasks, To improve ability of physical actions for home/community/work/leisure, To improve gait and locomotor functions, To improve health of tissue, To decrease soft tissue restriction, To increase flexibility/ROM, To improve endurance, To improve balance, To improve safety with gait Functional Training to Include: Gait training For the Purpose of:: To improve gait and locomotor functions, To improve safety with gait Manual Therapy Techniques to Include: Passive ROM For the Purpose of:: To increase ROM Please do not hesitate to contact me at [phone] by phone or if you have questions or concerns regarding this new plan of care! Sincerely, Eduarda Anderson MPT
== END 2019-07-23 19:00 | disposition home or self-care (01) ==
LOC: PT 10:00
PROVIDERS: Family Provider Family Medicine; PCP Family Medicine; Referring Provider Family Medicine; Visit Provider Family Medicine
DX: Z86.73 Personal history of transient ischemic attack (TIA), and cerebral infarction without residual deficits (principal)
CPT/HCPCS: 92507; 92523; 97110; 97112; 97140; 97162; 97165; 97166; 97168; 97530; 97535

== ENCOUNTER → 2019-08-31 07:30 | Outpatient (CLI) | payer OTHER, SELFPAY ==
[2019-02-27 14:22] VITALS: BMI 23.1
[2019-08-31 08:32] LABS: AST(SGOT) 25 U/L (15-37); Alanine Aminotransfer ALT/SGPT 49 U/L (16-61); Albumin, Serum 3.6 g/dL (3.2-5.0); Alkaline Phosphatase 121 U/L (45-117); Bilirubin, Direct 0.21 mg/dL (0.00-0.30); Cholesterol 120 mg/dL (200); Globulin 3.8 g/dL (2.2-4.2); High Density Lipoprotein 37 mg/dL; Protein, Total 7.4 g/dL (6.4-8.2); Triglycerides 56 mg/dL; Very Low Density Lipoprotein 11 mg/dL (5-40)
== END ==
PROVIDERS: PCP Family Medicine; Referring Provider Internal Medicine Cardiovascular Disease; Visit Provider Internal Medicine Cardiovascular Disease
DX: Z13.220 Encounter for screening for lipoid disorders (principal)
CPT/HCPCS: 36415; 80061; 80076

== ENCOUNTER → 2019-09-22 13:02 | Outpatient (CLI) | payer OTHER, SELFPAY ==
[2019-09-14 12:54] VITALS: BMI 23.3
--- NOTE | 2019-09-22 13:03 | VDLE_ITS ---
Reason For Study: Swelling RIGHT LEFT CFV is compressible, spontaneous, phasic, GSV is normal. competent and demonstrates normal CFV is compressible, spontaneous, phasic, augmentation. competent, and demonstrates normal Procedure augmentation. Exam performed in department. FV is compressible, spontaneous, phasic, A preliminary report was called and/or faxed competent and demonstrates normal to Jain. augmentation. POP V is compressible, spontaneous, phasic, competent and demonstrates normal augmentation. T/P Trunk is compressible. PTV is compressible. LT PerV is compressible. Peroneal vein technically difficult to visualize. Interpretation Summary There is no evidence of left lower extremity deep vein thrombosis. Left great saphenous vein appears patent and compressible segmentally. Technically difficult to image the left peroneal vein Patent and compressible right common femoral vein Ordering Physician: Ra Jain Referring Physician: MD Kirit Fredy Performed By: Ivanna Angel RVT
--- NOTE | 2019-09-22 13:03 | ECHOCS_ITS ---
Reason For Study: CHF Procedure This was a 2D Doppler, Color Flow transthoracic echocardiogram. Technically difficult . Pt in supine position-parasternal images from RSB. Contrast injection was performed. The study was technically limited. Exam performed in department. Left Ventricle Normal size and thickness. The estimated ejection fraction is 65 %. No regional wall motion abnormalities noted. Right Ventricle Moderately dilated right ventricle. Normal systolic function. Atria Normal left atrium. Normal right atrium. Normal atrial septum. Mitral Valve The mitral valve is structurally normal. No prolapse or stenosis seen. Tricuspid Valve Normal tricuspid valve. Mild (1+) tricuspid valve insufficiency. Right ventricular systolic pressure estimated to be 33 mmHg. Aortic Valve Trisinus/trileaflet aortic valve. Trivial aortic valve insufficiency. Pulmonic Valve Normal pulmonic valve. Medication 22 gauge I.V. with prn adaptor inserted into right arm. Diluted definity 6.0ml given slow IV push to enhance endocardial definition. MMode/2D Measurements & Calculations LVIDd: 4.8 cm IVSd: 0.76 cm Ao root diam: 3.3 cm LVIDs: 3.9 cm LVPWd: 0.73 cm RVDd: 4.6 cm FS: 19.9 % LAV(MOD-sp4): 91.9 ml LA A4 area: 27.2 cm2 LA dimension(2D): 4.3 cm RA A4 area: 24.9 cm2 Time Measurements MV dec time: 0.22 sec Doppler Measurements & Calculations MV E max mikie: 67.2 cm/sec Lat Peak E' Mikie: 10.3 cm/sec Med Peak E' Imkie: 7.6 cm/sec MV A max mikie: 45.3 cm/sec E/E' lat: 6.5 E/E' med: 8.8 MV E/A: 1.5 Ao V2 max: 107.5 cm/sec LV V1 max: 101.4 cm/sec TR max mikie: 257.4 cm/sec Ao max P.6 mmHg LV V1 max P.1 mmHg TR max P.5 mmHg Interpretation Summary The estimated ejection fraction is 65 %. Right ventricular systolic pressure estimated to be 33 mmHg. Trivial aortic valve insufficiency. Moderately dilated right ventricle. Mild (1+) tricuspid valve insufficiency. The study was technically difficult. Contrast injection was performed. Ordering Physician: Ra Jain Referring Physician: KAYKAY KAUFMAN Performed By: Siobhan Parikh, TEDDY, RVT
== END ==
PROVIDERS: PCP Family Medicine; Referring Provider Internal Medicine Cardiovascular Disease; Visit Provider Internal Medicine Cardiovascular Disease
DX: R60.0 Localized edema (principal); I50.9 Heart failure, unspecified
CPT/HCPCS: 93306; 93971; Q9957; A4216; C8929

== ENCOUNTER 2019-12-31 09:00 | Outpatient (RCR) | payer OTHER, SELFPAY ==
[2019-02-27 14:22] VITALS: BMI 23.1
--- NOTE | 2019-07-30 09:00 | RE_ITS ---
REASON FOR REFERRAL / INTERVENTION SUMMARY: The Patient is an 54 year old male who attended 15 skilled speech-language intervention sessions spanning from 01/08/2019 to 07/30/2019 targeting cognitive communication abilities secondary to a right middle cerebral artery cerebrovascular accident occurring 10/07/2017 requiring decompressed right craniotomy on 10/13/2017 complicated by neurogenic vocal fold paralysis, recent right sided cranioplasty; past records detail tortuous course throughout a prolonged hospitalization, with persistent deficits in locomotion / mobility, deglutition, and cognition. The Patient participated in intervention sessions consisting of intervention targeting higher level cognitive functioning via training and implementation of metacognitive strategy training, with benefit noted from implementation of a modified Yxuo-Fusa-Vo-Review / Predict-perform procedure approach with SWOT analysis with self-talk procedures, along with interventions targeting visuospatial skills via systemic and spoke maker scanning therapy, with a notable reduction in cognitive inefficiency as well as impacts of left visuospatial neglect, with the Patient demonstrating awareness of his overall functioning level. He has remained very motivated and accepting of more challenging therapeutic tasks, and is one of the more driven individuals that I have ever had the pleasure of working with, with the Patient continuing to outperform his previously expected ceilings given the tortuous hospitalization course leading to the current outpatient intervention cycle. MEDICAL HISTORY: Prior aortic dissection repair (10/07/2017) with resulting cerebrovascular accident involving the cerebrum requiring decompressed right craniotomy (10/13/2017) with resulting right sided flaccidity, bilateral vocal fold paralysis status post full and partial injections with Radiesse Voice injectable, severe malnutrition initially requiring nasogastric tube supplementation and later percutaneous endoscopic gastrostomy (PEG) tube placement, acute hypoxia requiring intubation and tracheostomy tube placement (removed), asthma, hypertension, acute kidney injury, status post inguinal herniorrhaphy, kidney stones status post lithotripsy, depression, left ankle open reduction and internal fixation, left wrist open reduction and internal fixation, bilateral heel spur removal. ADDITIONAL OBJECTIVE ASSESSMENT RESULTS: 03/14/2018 CT revealed a large right-sided subdural fluid and gas collection contributing to mass effect and midline shift overlying a region of prominent pneumocephalus from the old right MCA distribution infarct. FUNCTIONAL STATUS ASSESSMENT RESULTS: Lyman Index of [place] in Activities of Daily Livin/6 Bathin Dressin Toiletin Transferrin Continence: 1 Feedin [place] ? Darshan Instrumental Activities of Daily Living Scale (IADL): 5/8 Ability to Use Telephone: 1 Shoppin Food Preparation: 0 Housekeepin Laundry: 1 Mode of Transportation: 0 Responsibility for Own Medications: 0 Ability to Handle Finances: 1 Functional Ambulation Category (FAC): 4 (independent - level surfaces only) COGNITIVE COMMUNICATION ASSESSMENT RESULTS (QUANTITATIVE): Generalized Anxiety Disorder 7-item (TANNER-7) scale: 4 (no anxiety disorder) Patient Health Questionnaire (PHQ-9): 2 (minimal to no risk) [place]ola Test: Correct: 7/35 Total Time: 2:48 Omissions (right): 2 Omissions (left): 5 Omissions (total): 7 (> 3 suggests an attentional deficit) Distractors: 0/264 Scanning Strategy: left to right Functional Assessment of Verbal Reasoning and Executive Strategies (FAVRES) TASK #1: PLANNING AN EVENT Accuracy: (Raw: 3 Percentile: 18 SS: 70) Rational: (Raw: 5 Percentile: 100 SS: 106) Time: (Raw: 13 Percentile: 3 SS: 61) Total Reasoning Sub-skills: (Raw: 20) TASK #2: SCHEDULING Accuracy: (Raw: 3 Percentile: 3 SS: 51) Rational: (Raw: 3 Percentile: 21 SS: 88) Time: (Raw: 8 Percentile: 100 SS: 124) Total Reasoning Sub-skills: (Raw: 25) TASK #3: MAKING A DECISION Accuracy: (Raw: 5 Percentile: 100 SS: 107) Rational: (Raw: 5 Percentile: 100 SS: 103) Time: (Raw: 11 Percentile: 9 SS: 86) Total Reasoning Sub-skills: (Raw: 21) TASK #4: BUILDING A CASE Accuracy: (Raw: 5 Percentile: 100 SS: 106) Rational: (Raw: 4 Percentile: 29 SS: 89) Time: (Raw: 11 Percentile: 43 SS: 99) Total Reasoning Sub-skills: (Raw: 27) TOTAL TEST: Accuracy: (Raw: 16, Percentile: 6, SS: 70, MODERATE) Rational: (Raw: 17, Percentile: 21, SS: 89, WNL) Time: (Raw: 43, Percentile: 43, SS: 97, WNL) COGNITIVE COMMUNICATION ASSESSMENT RESULTS (QUALITATIVE): EXECUTIVE FUNCTIONING: continued (albeit improving) ability to anticipate problems, analyzing situations, planning solutions, and executing solutions; continued (albeit improving) difficulty identifying and correcting errors, incorporating feedback; improved emotional regulation; continued mild flat / blunted affect; mild cognitive inflexibility, with the Patient occasionally becoming stimulus bound; improving response inhibition; continually improving awareness / insight into deficits MEMORY: intact explicit and implicit memory functioning; impaired working memory complicated by higher level executive based deficits ATTENTION: intact selective, voluntary, and focused attention; impaired divided and alternating VISUOSPATIAL ABILITIES: mild left visuospatial neglect that varies with complexity and fatigue. LANGUAGE FUNCTIONING: rushed / rapid production rate with breathy vocal quality; no aphasia, anomia, apraxia, dyslexia noted; mild to moderate dysgraphia noted with reported poor baseline orthographic production. RESULTS OF THE EVALUATION: The Patient continues to present with mild to moderate cognitive communication deficits with mild left visuospatial neglect secondary to a right middle cerebral artery cerebrovascular accident occurring 10/07/2017 requiring decompressed right craniotomy on 10/13/2017 status post right sided cranioplasty. RECOMMENDATIONS: The Patient requires continued skilled speech-language intervention targeting higher level cognitive functioning via training and implementation of metacognitive strategy training, with considerations for Time pressure management strategy, Ofau-Lyop-Vv-Review / Predict-perform procedures, Goal management training, and Self talk procedures; continued intervention targeting visuospatial skills, with considerations for systemic and spoke maker scanning therapy with training and implementation of evidenced based principles for visual scanning; with preferences for an errorless learning approach. FUNCTIONAL OUTCOMES: OUTCOME 1: The Patient will utilize external and internal compensatory strategies to improve attention to the left side during both structured and unstructured therapeutic tasks w/ less than 2 cues per session over 2 consecutive sessions to facilitate optimal level of safe functioning within the home environment. OUTCOME 2: The Patient will utilize structured compensatory executive functioning / processing strategies identified and implemented during structured therapeutic to facilitate improved cognitive processing and achievement of the highest level of safe, independent functioning with 100% accuracy over 3 consecutive sessions. OUTCOME 3: The Patient will independently complete complex money management tasks with use of previously established compensatory strategies to facilitate achievement of the highest level of safe, independent functioning with 90% accuracy over 2 consecutive sessions. OUTCOME 4: Goal adjustment as needed Leonard Ye M.A., CCC-INTELLIGENCE SUPPORT OFFICER, CBIS MBSImP Certified, LSVT Certified [facility] Speech-Language Pathology Department [email or web address]
--- NOTE | 2019-09-18 10:41 | HP.OTREVAL ---
Roger Matson DPM, It has been my pleasure to treat JOSE THOMPSON over the last 14 visits for Acute Ischemic Rt MCA Stroke. Please see the progress note below for an update on the occupational therapy plan of care! Subjective: Pt arrived after PT and ready for OT services. Objective/Function: Pt demo increased R UE strength 4+/5. Pt demo increased L wrist extension 3/5, L elbow 2/5 flexion/extension. Plan Frequency: 1x/Week Duration: Every other wk x 6 wks Plan: Cont with OT services to modify gym exercises and assist with L UE ROM check for good skin integrity and proper splinting L hand to decrease risk of contractures. Pt making progress w/ OT goals. Pt/spouse educated on gym equipment to increase strength BUE with good demo and understanding. Pt and spouse demo good understanding of BUE HEP with weights, theraband and dowel tomeka. Pt tolerating 15 min of PROM to L UE to decrease risk of further contractures. Pt now able to complete own meal prep tasks with s/u using adaptive techniques and completing shower transfers with SUP using AE as needed. Pt continues to require MOD A with UB/LB dressing tasks with increased safety. Have fabricated appropriate splint L hand to decrease risk of further skin breakdown and contracture L hand and wrist. Pt demo good ability to vijay/doff splint and demo good skin integrity at this time. Pt would continue to benefit from direct occupational therapy services to adjust gym exercises as needed, continue to make adjustments as needed to L hand/wrist splint to decrease risk of further contracture and check for good skin integrity and educate on AE/AT to assist w/ BADL/IADL tasks as needed while continuing to address strength and ROM L UE. 1x/wk every other wk for 6 wks. Goals - Goals Goal:: Pt will be educated on appropriate gym equipment for R UE strengthening with good understanding and demo 100%x Goal:: Pt will be able to complete simple meal prep tasks SUP level with good safety awareness by d/c from OT services. Goal:: Pt will be educated on appropriate R UE HEP and L UE HEP with good understanding and demo 100%x Goal:: Pt/spouse will be educated on AE, AT, comp strategies to assist with BADLs/IADLs as needed with good understanding and dmeo 100%x Goal:: Pt will be able to tolerate 15 min PROM L elbow, wrist, and hand w/o pain. Goal:: Pt will be able to simulate shower transfers using AE as needed with good safety awareness SUP level. Goal:: Pt will progress w/ R UE strength 4+/5 to assist w/ lifting R leg up and over for LB dressing and bathing tasks Goal:: Pt will be able to vijay/doff socks with SUP level and shoes with MIN A using aE as needed. Goal:: Pt will be able to complete UB dressing w/ set up using adaptive techniques as needed Goal:: Pt/spouse will be educated on appropriate orthosis for L hand/wrist to wear for 6-8hrs at a time to decrease risk of further contracture while maintaining good skin integrity. Goal:: Pt/spouse will be educated on DME/AE, comp strategies to assist w/ BADL with good understanidng 100%x Goal:: Pt will be educated on L UE HEP with good understanding and demo 85%x Goal:: Pt will demo good ability to complete WB tech L UE and L UE ROM with good body mechanics in 3/4 trials. Anticipated Interventions Anticipated Interventions: A/AAROM/PROM, Strengthening, Edema Control, Modalities, Orthoses, Joint Protection/Energy Conservation, Fine Motor Coord/Gutierrez, Neuro Reeducation, ADL Training, Education re assistive Equipment, Education re Diagnosis, Education re Skin Care and Precautions, Education re Correct Donning Tech,Care&Wearing Sched Comp Garments, Caregiver Training, Home Program Please do not hesitate to contact me at [phone] by phone or if you have questions or concerns regarding this new plan of care! Sincerely, Anjali Goncalves
--- NOTE | 2019-11-24 15:24 | OTREVAL_ITS ---
Roger Matson DPM, It has been my pleasure to treat JOSE THOMPSON over the last 16 visits for Acute Ischemic Rt MCA Stroke. Please see the progress note below for an update on the occupational therapy plan of care! Subjective: Arrived stating no pain and he has been working on his arm exercises at home. Objective/Function: Completed OT re-eval this date. Pt demo increased tightness L digits, wrist, elbow and shoulder with increased edema noted L elbow. L shoulder flexion 100' PROM, L elbow extension -50, L wrist PROM 85/86'. Pt demo increased tightness of L thumb demonstrate risk of increased skin break down. Pt demo increased R UE strength 4+/5. Pt states completing HEP R UE using 5# weight and 10# for bicep/tricep exercises. Pt states doing more for himself at home, making own breakfast, getting own meals in kitchen while using a small cart to push around the kitchen, continuing to get in/out of the shower with supervision from spouse. Pt would benefit from direct OT services to decrease risk of further skin break down and increase ROM of L UE to decrease risk of further contracture to increase pts quality of life and educate on appropriate gym exercise program when gyms open back up from [facility]-19. Rec 1x/wk x 4wks. Plan Frequency: 1x/Week Duration: 4 Weeks Plan: 1x/wk x 4wks Goals - Goals Goal:: Pt will be educated on appropriate gym equipment for R UE strengthening with good understanding and demo 100%x Goal:: Pt will be able to complete simple meal prep tasks SUP level with good safety awareness by d/c from OT services. Goal:: Pt will be educated on appropriate R UE HEP and L UE HEP with good understanding and demo 100%x Goal:: Pt/spouse will be educated on AE, AT, comp strategies to assist with BADLs/IADLs as needed with good understanding and dmeo 100%x Goal:: Pt will be able to tolerate 15 min PROM L elbow, wrist, and hand w/o pain. Goal:: Pt will be able to simulate shower transfers using AE as needed with good safety awareness SUP level. Goal:: Pt will progress w/ R UE strength 4+/5 to assist w/ lifting R leg up and over for LB dressing and bathing tasks Goal:: Pt will be able to vijay/doff socks with SUP level and shoes with MIN A using aE as needed. Goal:: Pt will be able to complete UB dressing w/ set up using adaptive techniques as needed Goal:: Pt/spouse will be educated on appropriate orthosis for L hand/wrist to wear for 6-8hrs at a time to decrease risk of further contracture while maintaining good skin integrity. Goal:: Pt/spouse will be educated on DME/AE, comp strategies to assist w/ BADL with good understanidng 100%x Goal:: Pt will be educated on L UE HEP with good understanding and demo 85%x Goal:: Pt will demo good ability to complete WB tech L UE and L UE ROM with good body mechanics in 3/4 trials. Anticipated Interventions Anticipated Interventions: A/AAROM/PROM, Strengthening, Edema Control, Modalities, Orthoses, Joint Protection/Energy Conservation, Fine Motor Coord/Gutierrez, Neuro Reeducation, ADL Training, Education re assistive Equipment, Education re Diagnosis, Education re Skin Care and Precautions, Education re Correct Donning Tech,Care&Wearing Sched Comp Garments, Caregiver Training, Home Program Please do not hesitate to contact me at [phone] by phone or if you have questions or concerns regarding this new plan of care! Sincerely, Anjali Goncalves
--- NOTE | 2019-12-07 11:20 | HP.PTREVAL ---
Dr. Roger Matson, DPM, It has been my pleasure to treat JOSE THOMPSON over the last 7 visits for Acute ischemic MCA stroke. Please see the progress note below for an update on the physical therapy plan of care! Subjective: Pt reports nothing new. He is walking at home with the straight cane. He is riding his bike 1X/ day and the stairs are getting easier now for him at home to the basement. Objective/Function: Pt did better with squat at // bars if he put his R hand in the center of the bar and relied more on his LE's ( he was not ablet to wist to the L as much with standing). Pt needed max verbal and tactile cues to increase weightbearing onto the L LE..... Pt STILL does not turn his body to square up to the chair to sit down. and he will not turn to his L side unless instructed to do so by therapist. L LE active movement remains minimal.... OVerall pt seems to be functioning better and learning to compensate. Plan Plan: Work on gait with a straight cane and in // bars with light use of UE's. Work on turning 180 degrees TO THE LEFT and stepping over a claudia with sbqc with a gait belt. activation of L hip flex and knee flexion, gait progression with a single point cane, standing balance activities that increase balance and weight bearing through the L LE, sit to stand transfers with proper form, steps, functional transfers, strengthening, balance , weight shifting Goals Goal 1:: I home exercises and gym routine. Goal Time Frame: 4-6 Weeks Goal 2:: Be able to walk around the dept with SBA with single point cane. Goal Time Frame: 4-6 Weeks Goal Progress: Progressing Goal 3:: Increase R hip flex to be able to raise his R leg off the mat table to encourage better gait mechanics. Goal Time Frame: 4-6 Weeks Goal Progress: Goal Met Goal 4:: Be able to sit to stand X 10 on first attempt with more of an equal weight shift Goal Time Frame: 4-6 Weeks Goal Progress: Progressing Goal 5:: Be able to side step along the // bars with SBA and trying to keep toes pointed forward. Goal Time Frame: 4-6 Weeks Goal Progress: Progressing Goal 6:: Be able to tolerated PROM into L hip and knee flexion to try and break up tone. Goal Time Frame: 4-6 Weeks Goal Progress: Progressing Anticipated Interventions Please do not hesitate to contact me at [phone] by phone or if you have questions or concerns regarding this new plan of care! Sincerely, Eduarda Anderson, MPT
--- NOTE | 2020-03-08 09:57 | HP.OTDCSUM ---
It has been my pleasure to treat JOSE THOMPSON under orders from Dr. Roger Matson, DPM, for the diagnosis of Acute Ischemic Rt MCA Stroke for a total of 18 visit(s). Please see the following information for a summary of their discharge status. % Improvement: 33 Objective/Function: Completed OT re-eval this date. Pt demo increased tightness L digits, wrist, elbow and shoulder with increased edema noted L elbow. L shoulder flexion 100' PROM, L elbow extension -50, L wrist PROM 85/86'. Pt demo increased tightness of L thumb demonstrate risk of increased skin break down. Pt demo increased R UE strength 4+/5. Pt states completing HEP R UE using 5# weight and 10# for bicep/tricep exercises. Pt states doing more for himself at home, making own breakfast, getting own meals in kitchen while using a small cart to push around the kitchen, continuing to get in/out of the shower with supervision from spouse. Pt would benefit from direct OT services to decrease risk of further skin break down and increase ROM of L UE to decrease risk of further contracture to increase pts quality of life and educate on appropriate gym exercise program when gyms open back up from [facility]-19. Rec 1x/wk x 4wks. Patient Goals: Regain Strength, Decrease Swelling/Stiffness, Improve Fine Motor Skills, Use Hand/Wrist/Arm Normally Again, Increase ROM, Be More Independent in ADLS, Decrease Muscle Tone, Resume Former Household Responsibilities (Cooking,Cleaning,Yard, etc.), Resume Hobbies Goal:: Pt will be educated on appropriate gym equipment for R UE strengthening with good understanding and demo 100%x Goal:: Pt will be able to complete simple meal prep tasks SUP level with good safety awareness by d/c from OT services. Goal:: Pt will be educated on appropriate R UE HEP and L UE HEP with good understanding and demo 100%x Goal:: Pt/spouse will be educated on AE, AT, comp strategies to assist with BADLs/IADLs as needed with good understanding and dmeo 100%x Goal:: Pt will be able to tolerate 15 min PROM L elbow, wrist, and hand w/o pain. Goal:: Pt will be able to simulate shower transfers using AE as needed with good safety awareness SUP level. Goal:: Pt will progress w/ R UE strength 4+/5 to assist w/ lifting R leg up and over for LB dressing and bathing tasks Goal:: Pt will be able to vijay/doff socks with SUP level and shoes with MIN A using aE as needed. Goal:: Pt will be able to complete UB dressing w/ set up using adaptive techniques as needed Goal:: Pt/spouse will be educated on appropriate orthosis for L hand/wrist to wear for 6-8hrs at a time to decrease risk of further contracture while maintaining good skin integrity. Goal:: Pt/spouse will be educated on DME/AE, comp strategies to assist w/ BADL with good understanidng 100%x Goal:: Pt will be educated on L UE HEP with good understanding and demo 85%x Goal:: Pt will demo good ability to complete WB tech L UE and L UE ROM with good body mechanics in 3/4 trials. Plan: cont. 1x week for 4 weeks. initiate return of right UE gym eq. If there are questions or concerns regarding this patient's occupational therapy, please fell free to call me at [phone]. Thank you for the referral of this patient. Sincerely, Yumiko Peryr, OTR/L, CHT
== END 2019-12-31 19:00 | disposition home or self-care (01) ==
LOC: PT 09:00
PROVIDERS: Family Provider Family Medicine; PCP Family Medicine; Referring Provider Podiatrist Foot & Ankle Surgery; Visit Provider Podiatrist Foot & Ankle Surgery
DX: M25.572 Pain in left ankle and joints of left foot (principal); M67.02 Short Achilles tendon (acquired), left ankle; M21.6X2 Other acquired deformities of left foot; I63.511 Cerebral infarction due to unspecified occlusion or stenosis of right middle cerebral artery
CPT/HCPCS: 92507; 97110; 97112; 97116; 97140; 97168; 97530; 97535; 97760; 97763

== ENCOUNTER 2020-06-28 10:46 | Outpatient (RCR) | payer OTHER, SELFPAY ==
[2020-03-24 12:14] VITALS: BMI 23.8
== END 2020-06-28 10:47 | disposition home or self-care (01) ==
LOC: SP 10:46
PROVIDERS: PCP Family Medicine; Referring Provider Family Medicine; Visit Provider Family Medicine
DX: M25.572 Pain in left ankle and joints of left foot (principal); M67.02 Short Achilles tendon (acquired), left ankle; M21.6X2 Other acquired deformities of left foot

== ENCOUNTER 2020-07-15 09:00 | Outpatient (RCR) | payer OTHER, SELFPAY ==
[2019-09-14 12:54] VITALS: BMI 23.3
--- NOTE | 2019-12-28 10:13 | HP.PTREVAL ---
Dr. Fredy Beth MD, It has been my pleasure to treat JOSE THOMPSON over the last 12 visits for Acute ischemic MCA stroke. Please see the progress note below for an update on the physical therapy plan of care! Subjective: Pt reports that he is working his R arm everyday, walks 3 laps at home with the Quad cane, Nu-step for 30 min 3 X/ week, stretches fw flexion in the chair, at the island in the kitchen and does Yoga, Objective/Function: Pt walks with SBA with SBQC with L hip ER with a wrap around ankle brace on with small steps and L leg scissor. Pt walks without a can with mod-max A X 2.... decreased step length and reaches for support with his R arm and given most of the time b the therapist. Pt needs max A for L leg to get in and out of a car. Plan Plan: Plan: See pt every 2 weeks for 3 months and then reassess POC. Pt to do HEP and work on specific skills. Gave him a paper: sit to stand with L leg bent and in ready to stand position, when going to sit down in a chair turn feet so heels are // to the chair and toes straight ahead, and side stepping along the countertop trying to keep feet (yobani L) toes forward. WORK on increasing hip flexion on the R with weight through L LE or in tall kneel with weight through the L. Work on gait with a straight cane and in // bars with light use of UE's. Work on turning 180 degrees TO THE LEFT and stepping over a claudia with sbqc with a gait belt Goals Goal 1:: I home exercises and gym routine. Goal Time Frame: 4-6 Weeks Goal Progress: Progressing Goal 2:: Be able to walk around the dept with SBA with single point cane. Goal Time Frame: 4-6 Weeks Goal Progress: Progressing Goal 3:: Increase R hip flex to be able to raise his R leg off the mat table to encourage better gait mechanics. Goal Time Frame: 4-6 Weeks Goal Progress: Progressing Goal 4:: Be able to sit to stand X 10 on first attempt with more of an equal weight shift Goal Time Frame: 4-6 Weeks Goal Progress: Progressing Goal 5:: Be able to side step along the // bars with SBA and trying to keep toes pointed forward. Goal Time Frame: 4-6 Weeks Goal Progress: Goal Met Goal 6:: Be able to tolerated PROM into L hip and knee flexion to try and break up tone. Goal Time Frame: 4-6 Weeks Goal Progress: Progressing Anticipated Interventions Please do not hesitate to contact me at [phone] by phone or if you have questions or concerns regarding this new plan of care! Sincerely, Eduarda Anderson, MPT
--- NOTE | 2020-03-08 09:50 | HP.OTDCSUM_ITS ---
It has been my pleasure to treat JOSE THOMPSON under orders from Dr. Fredy Beth MD, for the diagnosis of CVA for a total of 22 visit(s). Please see the following information for a summary of their discharge status. % Improvement: 25 Objective/Function: Pt ekaterina reports his right UE is doing well-. Pt demo with right lens finisher strength at 80#. right lateral pinch 10#. right tripod pinch 10#. right UB MMT 5/5-. Left UE demo with min shoulder shrug and no AROM- PROM to 100*. no initiation of AROM of shoulder flex. elbow forearm sup/pron or wrist ext. pt demo with min tone of left shoulder and left elbow- max tone of forearm sup/pron. pt demo no wrist AROM or digit motion at this time. curretly pt demo with limited gains in left UE- pt ed. with handouts on PROM of shouder, elbow, forearm, wrist and digits. therapsit ed to hold PROM for 10 sec performing 10- 15x 3 times a day. pt at this time due to plateau of left UE will D/C with HEP. pt to return to if he has change in UE and request therapy services. Plan: D/C Discharge Comments: Pt has been seen in OT since December 2018 working on recovery from a CVA. Pt has made great gains in strengthening right UE and is JEAN CLAUDE with ADLs and amb. with quad cane. Left UE progress was limited and has platued at this time. Pt ed. to cont with his PROM to prevent contracture of left UE. please see above for details. Pt is d/c at this time due to plateau in progress. Therapist spoke with pt and both agree to D/C If there are questions or concerns regarding this patient's occupational therapy, please fell free to call me at [phone]. Thank you for the referral of this patient. Sincerely, Yumiko Perry, OTR/L, CHT
[2020-03-24 12:14] VITALS: BMI 23.8
--- NOTE | 2020-07-04 11:29 | HP.PTDCSUM ---
It has been my pleasure to treat JOSE THOMPSON referred by DENA Meehan, with the diagnosis of Acute ischemic MCA stroke for a total of 24 visit(s). Discharge Date: 07/04/20 Please see the following information for a summary of their discharge status. Subjective: Pt has no trouble with showering or doing self care. He struggles with getting his L foot into a shoe and tie it. He can go up and down the steps at his house and he does not feel he will fall. He feels with the cold weather makes him more stiff. % Improvement: 30 Objective/Function: Pt struggles with turning to his L side in standing and then back into the chair. He still has trouble advancing his L foot or pulling his L foot back into extension. Sit to stand: he is able to X 10 using his R arm to get to a standing position. Posture: he struggles with flexion of his trunk and has to force erect posture. He has decreased flexibility of his L foot, knee flexion and hip flexion and IT band on the L. When pt goes to sit, he struggles with being able to activly flex his L hip to sit down. Gait: he walks with s SBQC with increase drag of his toe on the ground but he does not trip on it. Attempted to walk with no AD with 2 therapist on either side. he was able to walk about 8 feet and then turned around and went back 8 feet to the chair. He does not have the strength in his L leg to hold him to advance his R leg fully. He needed 2 assist for balance. Pt is not able to functionally raise his L hip into flexion.... Goal 1:: I home exercises and gym routine. Goal Progress: Goal Met Goal 2:: Be able to walk around the dept with SBA with single point cane. Goal Progress: Progressing Goal 3:: Increase R hip flex to be able to raise his R leg off the mat table to encourage better gait mechanics. Goal Progress: Not Progressing Goal 4:: Be able to sit to stand X 10 on first attempt with more of an equal weight shift Goal Progress: Progressing Goal 5:: Be able to turn to B sides 180 degrees with good step length to back up to a chair with SBA. Goal Progress: Goal Met Goal 6:: Become I with stretching of the L LE with gastroc, HS, Hip flexion on a box, Hip rotators (ER stretch) Goal Progress: Progressing Plan: Plan: See pt every 2 weeks for 3 months and then reassess POC. Pt to do HEP and work on specific skills. Gave him a paper: sit to stand with L leg bent and in ready to stand position, when going to sit down in a chair turn feet so heels are // to the chair and toes straight ahead, and side stepping along the countertop trying to keep feet (yobani L) toes forward. WORK on increasing hip flexion on the R with weight through L LE or in tall kneel with weight through the L. Work on gait with a straight cane and in // bars with light use of UE's. Work on turning 180 degrees TO THE LEFT and stepping over a claudia with sbqc with a gait belt Discharge Comments: DC PT to HEP. HEP: Added step stretch, HS stretch, B IT band stretch If there are questions or concerns regarding this patient's physical therapy, please feel free to call me at [phone]. Thank you for the referral of this patient. Sincerely, Eduarda Anderson, MPT
== END 2020-07-15 19:00 | disposition home or self-care (01) ==
LOC: SP 09:00
PROVIDERS: PCP Family Medicine; Referring Provider Nurse Practitioner Family; Visit Provider Nurse Practitioner Family
DX: I63.511 Cerebral infarction due to unspecified occlusion or stenosis of right middle cerebral artery (principal); M25.572 Pain in left ankle and joints of left foot; M67.02 Short Achilles tendon (acquired), left ankle; M21.6X2 Other acquired deformities of left foot
CPT/HCPCS: 92507; 97110; 97112; 97116; 97140; 97530

== ENCOUNTER 2020-09-23 09:00 | Outpatient (RCR) | payer OTHER, SELFPAY ==
[2020-03-24 12:14] VITALS: BMI 23.8
--- NOTE | 2020-11-16 11:53 | HP.SP.DC ---
ST Discharge Summary - Discharged: Discharge: Carlos Enrique Gustafson is discharged from [facility] as of November 16, 2020 as no further visits were scheduled by the patient. His initial evaluation was on 01/08/19 for deficits from acute ischemic RT MCA stoke. Therapy was typically weekly with his last session at the end of August 2020. His last progress report was from July 2020. 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 Completed structured higher-level cognitive activity to facilitate improved sustained and complex attention, working memory, organization, problem solving, and cognitive flexibility (Chess): Setting up Board: 3 placement errors Rule Errors: x0 Processing Errors: x1 Prompting / Turn Taking: x2 Left Omission: x0* improving problem solving and identification through PDRE approach. He was able to provide instructions to novice participant during familiar structured activity (Chess); while at times his instructions were scattershot in accuracy, he was able to eventually provide enough detail to allow for the listener to comprehend rules (similar to prior session). Please see last POC and notes for full details. A copy of this discharge summary will be sent to his referring physician.
== END 2020-09-23 19:00 | disposition home or self-care (01) ==
LOC: SP 09:00
PROVIDERS: PCP Family Medicine; Referring Provider Family Medicine; Visit Provider Family Medicine
DX: I63.511 Cerebral infarction due to unspecified occlusion or stenosis of right middle cerebral artery (principal)
CPT/HCPCS: 92507

== ENCOUNTER 2022-05-16 15:30 | Outpatient (RCR) | payer OTHER, SELFPAY ==
--- NOTE | 2022-02-21 18:43 | HP.PTEVAL_ITS ---
Patient's Visit Information JOSE THOMPSON is a 56 year old M referred to Physical Therapy by Dr. Fredy Beth MD with a diagnosis of L HEmiparesis. Date of Evaluation: 02/21/22 Physical Therapist: SAMUEL Bradford - Visit Plan Frequency: 1x/Week Duration: 4 Months Plan: 1X/ week every 1-2 weeks for postural exercises, sitting and standing posture, sit to stand transfers, stretching, B LE strengthening, balance transfers, picking objects up from the floor with HEP and gait training. - Subjective He had to cancel last week cause he fell 3 different times and before that he has not fallen for 6 months to a year. He is out and about going to restaurants., He reports that he struggles with his L foot going side ways with gait. His reports that he has really good balance but he still gets out of a chair with his feet together. He has been golfing for about a year now. He does it with one arm. His putting is still pretty good and rides in the cart. He does go up and down the stairs on his own with railings on B sided but he goes down and up with circumduction. He does have a recumbant/pedle bike and he does that once a day and does better getting on and off the bike. is trying to get him to be more independent. Pt goes back to work next week. He has done a lot more walking. He has been trying to walk without the cane in the // bars. He can get into bed with a bed rail independently. He has not tried rolling to either side. He can not put his shoes on or off. He struggles to get in and out of a car. His has to help him get in and out of the car. He is on baclofen and shot are helping. He gets those every 3 months and a nurse comes to the house to give him the baclofen. - Objective Sitting posture: sits leaning to the R side and feet together but L hip into ER. Gait: walks with R small base Quad cane and L foot ER and L hip ER using mostly his L adductors to advance his L leg. His R knee does not straighten when he tries to advance his L foot. He heavily leans on his R small base quad cane. He walks with a very slow fish and not an even or normal step length. sit to stand: He is able to stand up with his R hand on the chair rail and his R leg behind his L leg and his L leg tend to be in and ER at the hip position. He uses only his R side to stand up. Once he is standing he does not straighten his R knee and has no weight on his L LE. He has a flexed trunk and tightness is apparnet in his B hip flexors. He is not able to stand up tall unless he has max verbal cues and then he feels that his is going to fall over backwards. Pt is able to go from a sitting position to a supine position with SBA. He struggles with scooting down the mat table. He is able to go from a supine to a sitting position with SBA. He felt a bog stretch with Manuel stretch and supine with leg off the side of the table B. will help the patient with this. Pt is able to do 1/2 normal ROM bridge but needs max A to get his L leg to relax and get into a bend position to do the bridge. He struggle with scooting his hips and shoulders along the mat table. - Balance/Special Test Scores Lower Extremity Functional Score: 13 - Goals Goal 1:: I HEP Goal Time Frame: 12-16 Weeks Goal 2:: Pt to be able to sit to stand with B feet on the floor and feet apart with verbal cues 3/3 attempts Goal Time Frame: 12-16 Weeks Goal 3:: Be able to stand erect posture including straight knee on the R Goal Time Frame: 12-16 Weeks Goal 4:: Be able to complete 3 X 10 full ROM bridges to help with bed mobility and posture due to hip flexor tightness. Goal Time Frame: 12-16 Weeks - Rehabilitation Potential Rehabilitation Potential: Good - Anticipated Interventions Patient/Client Instruction: Educate patient on: Condition, Plan of Care For the Purpose of:: To increase ROM, To improve nutrient delivery to tissue, To improve muscle performance and motor function, To improve ability to perform ADL's, To increase tolerance to activity/condition/position, To improve performance and independence with ADL's, To decrease level of supervision to perform tasks, To improve ability of physical actions for home/community/work/leisure, To improve gait and locomotor functions, To improve health of tissue, To decrease soft tissue restriction, To increase flexibility/ROM, To improve endurance, To improve balance, To improve safety with gait Therapeutic Exercise to Include: Strength training, Endurance training, Body mechanics, Postural training, Flexibilty training, Gait and locomotor training, Neuromotor development, Passive ROM, Active ROM, Dynamic Lumbar Stabilization, Scapular Strength/Stabilization For the Purpose of:: To increase ROM, To improve nutrient delivery to tissue, To increase oxygenation perfusion, To improve muscle performance and motor function, To improve ability to perform ADL's, To increase tolerance to activity/condition/position, To improve performance and independence with ADL's, To decrease level of supervision to perform tasks, To improve ability of physical actions for home/community/work/leisure, To improve gait and locomotor functions, To improve health of tissue, To decrease soft tissue restriction, To increase flexibility/ROM, To improve endurance, To improve balance, To improve safety with gait Functional Training to Include: Gait training For the Purpose of:: To improve gait and locomotor functions, To improve safety with gait Manual Therapy Techniques to Include: Passive ROM For the Purpose of:: To increase ROM, To improve nutrient delivery to tissue, To improve muscle performance and motor function, To improve gait and locomotor functions, To improve health of tissue Thank you for the opportunity to evaluate your patient. For Medicare and Medicare HMO plans, please review the plan of care and approve it. It will need to be FAXED BACK to us at [phone] for Medicare purposes. For Medicare only, by signing this I certify the plan of care. Please let me know if there are questions or concerns regarding this plan of care. Physician Signature: Date:
== END 2022-05-16 19:00 | disposition home or self-care (01) ==
LOC: PT 15:30
PROVIDERS: PCP Family Medicine; Visit Provider Family Medicine
DX: G81.94 Hemiplegia, unspecified affecting left nondominant side (principal)
CPT/HCPCS: 97110; 97140; 97162; 97530

== ENCOUNTER → 2023-01-14 | Outpatient (CLI) | payer OTHER, SELFPAY ==
--- NOTE | 2023-01-14 15:10 | RAD_ITS ---
EXAM: XR ABDOMEN, 1 VIEW CLINICAL INDICATION: CALCULUS OF KIDNEY TECHNIQUE: Frontal supine view of the abdomen/pelvis. COMPARISON: 10.14.18 FINDINGS: LOWER THORAX: No acute pathology. GASTROINTESTINAL TRACT: Large amount of stool in the rectal vault can suggest constipation. ORGANS: Multiple calculi overlying the right renal parenchymal outline. No organomegaly. BONES/JOINTS: Prosthetic left femoral head. Degenerative findings of the right hip. Median sternotomy wires. Degenerative findings in the lumbar spine. SOFT TISSUES: No acute pathology. OTHER FINDINGS: Possible insulin pump in the right lower quadrant. RAD/Abdomen Single View IMPRESSION: Multiple calculi overlying the right renal parenchymal outline. Electronically Signed: Dayday Welch MD at 15:40 EDT ,
== END | disposition home or self-care (01) ==
LOC: RAD 14:58
PROVIDERS: PCP Family Medicine; Referring Provider Urology; Visit Provider Urology
DX: N20.0 Calculus of kidney (principal)
CPT/HCPCS: 74018

== ENCOUNTER 2023-01-22 04:08 | Inpatient (IN) | payer OTHER, MEDICARE, SELFPAY ==
[2023-01-22] VITALS (13 sets, daily range): BP systolic 140–213; BP diastolic 80–99; PULSE 45–88; RESP 16–18; TEMP 36.6–37.5; O2SAT 95–99; BMI 24.2
[2023-01-22] MEDS: Acetaminophen 325 MG Tablet 650 MG PO (03:57)
--- NOTE | 2023-01-22 03:59 | PCM.HP.STD ---
HPI - General General Date of Admission: 01/22/23 Date of Service: 01/22/23 Chief Complaint: Kidney stone, hypoxia HPI Narrative JOSE THOMPSON, is a 57 M who presents to the [facility] emergency room with chief complaint of left-sided abdominal pain and subsequently was noted to have a 5 mm kidney stone. The initial plan was for him to follow-up with Dr. Acevedo as an outpatient for lithotripsy, however, the patient became hypoxic in the emergency room with a pulse ox of 75% on room air and the decision was made to admit. Patient has a recent history of pneumonia and stopped home oxygen 4 weeks ago. Chest x-ray and laboratory studies are unremarkable. The patient also has a history of stroke with left-sided weakness that is remote. Currently, the patient denies any chest pain, shortness of breath or fevers or chills and is doing well with oxygen via nasal cannula and states his kidney stone pain has subsided for now. He did receive a dose of morphine at the [facility] emergency room and after receiving that dose he did become hypoxic. It is suspected that the morphine that he received caused him to hypoventilate and therefore he was transported to [facility] for oxygen support and further management of his nephrolithiasis. [facility] Medical History (Updated 01/22/23 @ 04:[address] Dash Espinal MD) Acute kidney injury Acute right MCA stroke (10/09/17) Aortic dissection (10/09/17) Asthma Depression Dysphagia Dysphagia history of Baclofen pump placement (~05/2018) Hypertension Kidney stones Left hemiplegia Seizure disorder (10/09/17) Vocal cord paralysis Home Medications buspirone 5 mg tablet 5 mg PO DAILY #7 tabs 04/18/18 [Rx Last Taken 09/18/18799] venlafaxine 75 mg tablet 75 mg PO BID mood #180 tabs 04/18/18 [Rx Last Taken 09/18/18799] albuterol sulfate 90 mcg/actuation aerosol inhaler 2 puff inhalation Q4H PRN PRN Asthma 06/02/18 [History Last Taken 09/18/18799] polyethylene glycol 3350 17 gram oral powder packet 17 gm PO DAILY constipation 06/02/18 [History Last Taken 09/18/18799] sennosides 8.6 mg tablet 8.6 mg PO BID 06/02/18 [History Last Taken 09/18/18 0800] albuterol sulfate 2.5 mg/3 mL (0.083 %) solution for nebulization 2.5 mg inhalation .q 6H PRN Wheezing Or Cough 08/04/18 [History Last Taken 09/18/18 0800] aspirin 81 mg tablet,delayed release (Adult Aspirin Regimen) 81 mg PO DAILY blood thinner 08/04/18 [History Last Taken 11/02/18] baclofen 2,000 mcg/mL intrathecal solution 150 - 160 mcg IT DAILY 10/07/18 [History Last Taken Unknown] acetaminophen 500 mg tablet 500 mg PO Q4H PRN PRN Pain #20 tabs 10/10/18 [Rx Last Taken Unknown] levetiracetam 1,000 mg tablet 1,250 mg PO BID 11/05/18 [History Last Taken 11/07/18 05:00] gabapentin 300 mg capsule 300 mg PO .QID 09/14/19 [History Last Taken Unknown] metoprolol tartrate 25 mg tablet 25 mg PO BID decrease blood pressure #180 tabs 09/14/19 [Rx Last Taken Unknown] tizanidine 2 mg capsule 2 mg PO QHS 09/14/19 [History Last Taken Unknown] Allergy/AdvReac Type Severity Reaction Status Date / Time cat dander Allergy Unknown Verified 09/14/19 13:08 grass pollen Allergy Itching Verified 09/14/19 13:08 Family History Father , Age 48 from CVA CVA (cerebral vascular accident) Grandfather Asthma Surgical History H/O lithotripsy History of ankle surgery (~2012) History of aortic arch replacement (10/10/17) History of cranioplasty (02/28/18) History of inguinal hernia repair s/p removal of heel spurs Status post craniectomy (10/10/17) Status post wrist surgery (~2012) Social History (Updated 03/24/20 @ 14:[address] Ra Jain MD) Smoking Status: Former smoker ROS Constitutional Constitutional: Denies chills or fever(s) Eyes Eyes: Denies change in vision ENT HEENT: Denies abnormal hearing Cardiovascular Cardiovascular: Denies chest pain Gastrointestinal Gastrointestinal: Reports abdominal pain Genitourinary Genitourinary: Reports dysuria Musculoskeletal Musculoskeletal: Reports back pain Integumentary Integumentary: Denies dry skin Neurologic Neurologic: Denies dizziness Psychiatric Psychiatric: Denies depression Vital Signs Vital Signs Vital Signs: 01/22/23 03:50 01/22/23 03:25 Temperature 98 F 98.0 F Temperature Source Oral Oral Pulse Rate 60 60 Respiratory Rate 18 16 Blood Pressure 168/90 H 168/90 H Blood Pressure Mean 116 116 Blood Pressure Source Monitor Monitor Blood Pressure Position Semi-Fowlers Semi-Fowlers Blood Pressure Location Right Arm Right Arm Pulse Ox 98 98 Oxygen Delivery Method Nasal Cannula Nasal Cannula Oxygen Flow Rate (L/min) 3 3 Weight Weight: 178 lb 9.6 oz Body Mass Index (BMI) 24.2 Physical Exam Const oriented x3 General Appearance: cooperative HEENT normocephalic and head/scalp atraumatic Eyes PERRL Neck no lymphadenopathy Lymph Lymphatic: no lymphadenopathy noted Resp normal respiratory effort, normal air movement and clear to auscultation bilaterally Effort and Inspection: Negative for respiratory distress Cardio regular rate, regular rhythm, S1 normal heart sound and S2 normal heart sound GI normal to inspection, nondistended, normoactive bowel sounds and soft to palpation Skin General Skin Exam: no breakdown Neuro no sensory deficits noted Neuro Narrative: Residual left-sided weakness from previous stroke presents Psych thought process normal, cooperative and affect normal Assessment & Plan Assessment/Plan (1) Hypertension: (2) Left hemiplegia: (3) Asthma: (4) Vocal cord paralysis: (5) Depression: (6) Nephrolithiasis: (7) Hypoxia: PLAN: Plan 1 nephrolithiasis?admit patient to general medical floor, consult Dr. Acevedo. We will restart Tylenol per routine for chronic pain as patient currently denies any pain from his kidney stone. Repeat CBC, BMP in the a.m. 2. Hypoxia?continue oxygen support 3. Possible urinary tract infection?check UA 4. Hypertension?continue routine home medications 5. DVT prophylaxis?low molecular weight heparin Charges/Coding Visit Charges Inpatient E&M: 25922 Init Hosp L2
[2023-01-22] MEDS: 0.9% Normal Saline 1,000 ML 75 ML IV ×2 (04:39→17:28)
[2023-01-22 04:41] LABS: Mucous, Urine 0 SEEN /hpf (<or=2+); Squamous Epithelial Cells - UA 0 SEEN /hpf (0-5)
[2023-01-22 04:44] LABS: Color, Urine Yellow (Yellow); Glucose, Dipstick Normal (Normal); Ketone-Dipstick 5 mg/dl (Negative); Leukocyte Esterase-Dipstick 500 /ul (Negative); Nitrite-Dipstick Negative (Negative); Occult Blood-Urine 250 /ul (Negative); Protein-Dipstick 30 mg/dl (Negative); Urine Bilirubin Dipstick Negative (Negative); Urine Clarity Clear (Clear); Urine Urobilinogen Normal (Normal); Urine pH 6.5 (5.0 - 8.0)
[2023-01-22 04:57] LABS: Bacteria 1+ /hpf (None Seen); Red Blood Cells-Urine 10-25 SEEN /hpf (0-5); White Blood Cells 10-25 SEEN /hpf (0-5)
[2023-01-22 06:11] LABS: Absolute Lymphocyte Count 0.56 X10^3/uL (0.83-4.51); Absolute Neutrophil Count 9.6 X10^3/uL (2.0-7.7); Basophil# 0.03 X10^3/uL; Basophil% 0.3 % (0-1); Eosinophil# 0.01 X10^3/uL; Eosinophils% 0.1 % (0-5); Hematocrit 39.1 % (40-54); Hemoglobin 12.4 g/dL (13.0-16.5); Lymphocyte # 0.56 X10^3/ul (0.83-4.51); Lymphocyte % 5.1 % (19-41); Mean Corp Hgb Conc 31.7 g/dL (32-36); Mean Corpuscular Hgb 33.3 pg (27.0-32.0); Mean Corpuscular Volume 105.1 fL (80-94); Mean Platelet Vol. 9.7 fl (6.2-12.0); Monocyte# 0.66 X10^3/uL; NRBC Flagged by Analyzer 0 % (0-5); Neutrophil # 9.62 X10^3/uL (2.7-7.7); Neutrophil % 88.2 % (47-70); POSITIVE DIFFERENTIAL YES; Platelet Count 177 K/mm3 (150-450); RBC Distribution Width CV 12.7 % (11.6-14.6); Red Blood Count 3.72 M/mm3 (4.6-6.2); White Blood Count 10.9 K/mm3 (4.4-11.0)
--- NOTE | 2023-01-22 06:36 | NURSING ---
5542. phone call to (with permission from pt) at this time to update pts home med list.
[2023-01-22 06:37] LABS: Differential Indicated SCAN CRITERIA MET
[2023-01-22 06:45] LABS: Differential Comment SCANNED
[2023-01-22 06:52] LABS: Anion Gap 2 (5-15); BUN 17 mg/dL (7-18); Calcium,Total 8.5 mg/dL (8.5-10.1); Chloride 107 mmol/L (98-107); Creatinine, Serum 0.71 mg/dL (0.70-1.30); EST Glomerular Filtration Rate 121 mL/min (>60); Est Glom Filt Rate - Afr Amer 147 mL/min (>60); Estimated Creatinine Clearance 124.48 ml/min; Glucose 115 mg/dL (74-106); Sodium Level 140 mmol/L (136-145)
--- NOTE | 2023-01-22 07:52 | PN.HOSP_ITS ---
Reason for Visit Reason for Visit: Diagnoses Major depressive disorder, single episode, unspecified (01/22/23) Hemiplegia, unspecified affecting left nondominant side (01/22/23) Essential (primary) hypertension (01/22/23) Paralysis of vocal cords and larynx, unspecified (01/22/23) Unspecified asthma, uncomplicated (01/22/23) Calculus of kidney (01/22/23) Hypoxemia (01/22/23) Subjective Subjective No further flank pain but is complaining of pain in his left hamstring. Objective Data Objective Data Vital Signs: Vital Signs Temp Pulse Resp BP Pulse Ox O2 Del Method O2 Flow Rate 36.6 C 60 18 168/90 H 98 Nasal Cannula 3 01/22/23 03:50 01/22/23 03:50 01/22/23 03:50 01/22/23 03:50 01/22/23 03:50 01/22/23 03:50 01/22/23 03:50 Oxygen Flow Rate (L/min) 3 Oxygen Delivery Method Nasal Cannula Weight: 81.012 kg Body Mass Index (BMI) 24.2 Intake & Output: Intake and Output for Last 24 Hours 01/20/23 01/21/23 01/22/23 23:59 23:59 23:59 Output Total 300 / 300 Balance -300 / -300 Lab / Micro Data Result Diagrams: 01/22/23 05:20 01/22/23 05:20 Labs: Laboratory Results - last 24 hr 01/22/23 04:30: Urine Color Yellow, Urine Clarity Clear, Urine pH 6.5, Ur Specific [place] 1.010, Urine Protein 30 H, Urine Glucose (UA) Normal, Urine Ketones 5 H, Urine Occult Blood 250 H, Urine Nitrite Negative, Urine Bilirubin Negative, Urine Urobilinogen Normal, Ur Leukocyte Esterase 500 H, Urine RBC 10- 25 SEEN, Urine WBC 10-25 SEEN, Ur Squamous Epith Cells 0 SEEN, Urine Bacteria 1+, Urine Mucus 0 SEEN 01/22/23 05:20: WBC 10.9, RBC 3.72 L, Hgb 12.4 L, Hct 39.1 L, MCV 105.1 H, MCH 33.3 H, MCHC 31.7 L, RDW Std Deviation 49.0 H, RDW Coeff of [place] 12.7, Plt Count 177, MPV 9.7, Immature Gran % (Auto) 0.300, Neut % (Auto) 88.2 H, Lymph % (Auto) 5.1 L, [place] % (Auto) 6.0, Eos % (Auto) 0.1, Baso % (Auto) 0.3, Absolute Neuts (auto) 9.6 H, Absolute Lymphs (auto) 0.56 L, Nucleated RBC % 0, Differential Comment SCANNED 01/22/23 05:20: Sodium 140, Potassium 4.0, Chloride 107, Carbon Dioxide 31.0, Anion Gap 2 L, BUN 17, Creatinine 0.71, Estim Creat Clear Calc 124.48, Est GFR (MDRD) Af Amer 147, Est GFR (MDRD) Non-Af 121, BUN/Creatinine Ratio 24.0 H, Glucose 115 H, Calcium 8.5 Physical Exam Const alert and no apparent distress HEENT head/scalp atraumatic Resp normal respiratory effort, no retractions, no use of accessory muscles and clear to auscultation bilaterally Cardio regular rate, regular rhythm, S1 normal heart sound and S2 normal heart sound GI normal to inspection, nondistended, normoactive bowel sounds, soft to palpation, non-tender and non-distended Extremity Extremity Narrative: palpable spasm of right medial hamstring. Neuro Sensorium / Orientation: awake and alert Assessment & Plan Assessment/Plan (1) Nephrolithiasis: PLAN: Left sided 5mm stone. Subjectively improved Consult Dr. Acevedo. Pain control Continue tamsulosin (2) Hypoxia: PLAN: Per documentation, occurred after morphine Wean oxygen as tolerated PEP therapy CXR report from OSH commented on pleural effusion Repeat CXR, check BNP, check echo (3) Bradycardia: PLAN: Asymptomatic HR into 40s. Hold metoprolol. Monitor (4) Hypertension: PLAN: BP up to 190 systolic Add lisinopril and PRN hydralazine PLAN: Plan Chronic condition * HTN: continue metoprolol * h/o aortic dissection * h/o right MCA CVA: continue ASA * Asthma * Depression: continue fluoxetine * Dysphagia: * Seizure d/o: continue levetiracetam * vocal cord paralysis VTE prophylaxis: Charges/Coding Visit Charges Inpatient E&M: 94860 Subs Hosp L2
--- NOTE | 2023-01-22 07:59 | CON.PCM.UR_ITS ---
Assessment & Plan Assessment/Plan (1) Nephrolithiasis: PLAN: plan for cystoscopy left stent placement tomorrow HPI Consult Data Date of Consult: 01/22/23 HPI Narrative Reason for Consultation: kidney stones HPI Narrative: JOSE THOMPSON, is a 57 M who presents to [facility] with hypoxia possible pneumonia also has obstructing stone in the mid left ureter also some stones in the right kidney plan to taken the surgery tomorrow for cystoscopy left stent placement. There's a question about and infections will hold off and a surgical intervention until we get the infection cleared. [facility] Medical History Acute kidney injury Acute right MCA stroke (10/09/17) Aortic dissection (10/09/17) Asthma Depression Dysphagia Dysphagia history of Baclofen pump placement (~05/2018) Hypertension Kidney stones Left hemiplegia Seizure disorder (10/09/17) Vocal cord paralysis Home Medications albuterol sulfate 90 mcg/actuation aerosol inhaler 2 puff inhalation Q4H PRN PRN Asthma 06/02/18 [History Last Taken 09/18/18 0800] polyethylene glycol 3350 17 gram oral powder packet 17 gm PO DAILY PRN PRN Constipation 06/02/18 [History Last Taken 09/18/18 0800] albuterol sulfate 2.5 mg/3 mL (0.083 %) solution for nebulization 2.5 mg inhalation .q 6H PRN Wheezing Or Cough 08/04/18 [History Last Taken 09/18/18 0800] aspirin 81 mg tablet,delayed release (Adult Aspirin Regimen) 81 mg PO DAILY blood thinner 08/04/18 [History Last Taken 11/02/18] baclofen 2,000 mcg/mL intrathecal solution 150 - 160 mcg IT DAILY pain 10/07/18 [History Last Taken Unknown] acetaminophen 500 mg tablet 500 mg PO Q4H PRN PRN Pain #20 tabs 10/10/18 [Rx Last Taken Unknown] levetiracetam 1,000 mg tablet 1,000 mg PO BID seizure 11/05/18 [History Last Taken 11/07/18 05:00] gabapentin 300 mg capsule 300 mg PO DAILY cva 09/14/19 [History Last Taken Unknown] metoprolol tartrate 25 mg tablet 25 mg PO BID decrease blood pressure #180 tabs 09/14/19 [Rx Last Taken Unknown] tizanidine 2 mg capsule 2 mg PO BID pain 09/14/19 [History Last Taken Unknown] cetirizine 10 mg tablet (Zyrtec) 10 mg PO DAILY allergies 01/22/23 [History Last Taken Unknown] fluoxetine 40 mg capsule 40 mg PO DAILY depression 01/22/23 [History Last Taken Unknown] [id number] tablet (Multivitamin 50 Plus tablet) 1 tab PO DAILY vitamins 01/22/23 [History Last Taken Unknown] tamsulosin 0.4 mg capsule 0.4 mg PO QHS kidney stones 01/22/23 [History Last Taken Unknown] Allergy/AdvReac Type Severity Reaction Status Date / Time cat dander Allergy Unknown Verified 09/14/19 13:08 grass pollen Allergy Itching Verified 09/14/19 13:08 Family History Father , Age 48 from CVA CVA (cerebral vascular accident) Grandfather Asthma Surgical History H/O lithotripsy History of ankle surgery (~2012) History of aortic arch replacement (10/10/17) History of cranioplasty (02/28/18) History of inguinal hernia repair s/p removal of heel spurs Status post craniectomy (10/10/17) Status post wrist surgery (~2012) Social History Smoking Status: Former smoker ROS Constitutional Constitutional: Denies chills, fever(s) or malaise Eyes Eyes: Denies blurry vision or change in vision ENT HEENT: Reports none Cardiovascular Cardiovascular: Denies chest pain or palpitations Respiratory/Chest Respiratory/Chest: Denies cough or shortness of breath with exertion Gastrointestinal Gastrointestinal: Denies abdominal pain, constipation or diarrhea Musculoskeletal Musculoskeletal: Denies back pain, joint stiffness or joint swelling Integumentary Integumentary: Denies dry skin, jaundice, lesions or rash Neurologic Neurologic: Denies confusion, syncope or weakness Psychiatric Psychiatric: Reports none; Denies anxiety or depression Endocrine Endocrinology: Denies excessive sweating, fatigue or flushing Hematologic/Lymphatic Hematologic/Lymphatic: Denies anemia, easy bleeding or easy bruising Physical Exam Const alert and oriented x3 General Appearance: cooperative HEENT normocephalic, head/scalp atraumatic, EAC's normal and TM's normal bilaterally Eyes PERRL and EOMs intact bilaterally Pupil: sluggish Neck no lymphadenopathy, supple and no JVD General: trachea midline Lymph Lymphatic: no lymphadenopathy noted, lymphedema and lymphadenopathy Resp normal respiratory effort, normal air movement and clear to auscultation bilaterally Cardio regular rate, regular rhythm and peripheral pulses 2+ throughout GI soft to palpation, non-tender and non-distended Extremity normal capillary refill and no clubbing, cyanosis or edema General Extremity: no tenderness to palpation of joints or extremities Skin no rashes or lesions noted General Skin Exam: turgor normal Lesions: no lesions Rashes: no rashes Neuro CN's II-XII intact bilaterally Speech: speech normal Motor Exam: strength 5/5 throughout; Negative for general weakness Psych thought process normal, cooperative and affect normal Appearance: appropriate Lab / Micro Data Result Diagrams: 01/22/23 05:20 01/22/23 05:20 Labs: Laboratory Results - last 24 hr 01/22/23 04:30: Urine Color Yellow, Urine Clarity Clear, Urine pH 6.5, Ur Specific [place] 1.010, Urine Protein 30 H, Urine Glucose (UA) Normal, Urine Ketones 5 H, Urine Occult Blood 250 H, Urine Nitrite Negative, Urine Bilirubin Negative, Urine Urobilinogen Normal, Ur Leukocyte Esterase 500 H, Urine RBC 10- 25 SEEN, Urine WBC 10-25 SEEN, Ur Squamous Epith Cells 0 SEEN, Urine Bacteria 1+, Urine Mucus 0 SEEN 01/22/23 05:20: WBC 10.9, RBC 3.72 L, Hgb 12.4 L, Hct 39.1 L, MCV 105.1 H, MCH 33.3 H, MCHC 31.7 L, RDW Std Deviation 49.0 H, RDW Coeff of [place] 12.7, Plt Count 177, MPV 9.7, Immature Gran % (Auto) 0.300, Neut % (Auto) 88.2 H, Lymph % (Auto) 5.1 L, [place] % (Auto) 6.0, Eos % (Auto) 0.1, Baso % (Auto) 0.3, Absolute Neuts (auto) 9.6 H, Absolute Lymphs (auto) 0.56 L, Nucleated RBC % 0, Differential Comment SCANNED 01/22/23 05:20: Sodium 140, Potassium 4.0, Chloride 107, Carbon Dioxide 31.0, Anion Gap 2 L, BUN 17, Creatinine 0.71, Estim Creat Clear Calc 124.48, Est GFR (MDRD) Af Amer 147, Est GFR (MDRD) Non-Af 121, BUN/Creatinine Ratio 24.0 H, Glucose 115 H, Calcium 8.5
[2023-01-22] MEDS: tiZANidine HCl 2 MG Tablet PO ×2 (10:30→21:12)
[2023-01-22] MEDS: Gabapentin 300 MG Capsule PO (10:30)
[2023-01-22] MEDS: levETIRAcetam 1,000 MG Tablet 1000 MG PO ×2 (10:31→21:12)
--- NOTE | 2023-01-22 10:51 | EKG12_ITS ---
Test Reason : STAT Blood Pressure : / mmHG Vent. Rate : 046 BPM Atrial Rate : 046 BPM P-R Int : 144 ms QRS Dur : 096 ms QT Int : 486 ms P-R-T Axes : 059 010 037 degrees QTc Int : 425 ms Sinus bradycardia Otherwise normal ECG No previous ECGs available Confirmed by BAM NAQVI, MARKEL ([id number]), editor greeting card CARL PABLO ([id number]) on 01/24/2023 10:18:37 AM Referred By: Brittani Confirmed By:MARKEL KUHN MD
--- NOTE | 2023-01-22 11:13 | RAD_ITS ---
STUDY: X-RAY CHEST REASON FOR EXAM: Male, 57 years old. Hypoxia. TECHNIQUE: Single AP portable view of the chest. COMPARISON: October 06, 2017. FINDINGS: There is bowel at the level of the left hilum suggesting elevated left hemidiaphragm versus diaphragmatic hernia. This was not seen on the prior plain film what was evident on the CT the pelvis of April 10, 2018. The lungs are well expanded. There is minimal linear atelectasis at the right lung base. There is no demonstrated pleural abnormality. Sternal cerclage wires are present from a prior sternotomy. The heart is mildly enlarged. Normal mediastinum and gianna. Normal visualized pulmonary arteries. There is a stent in the posterior aortic arch. The thoracic spine is obscured by the mediastinum. 2 There is no demonstrated abnormality of the visualized soft tissue structures of the upper abdomen. RAD/Chest 1 View (Portable) IMPRESSION: 1. Elevated left hemidiaphragm. 2. Right basilar atelectasis. 3. Cardiomegaly with evidence of median sternotomy and aortic stenting. Electronically Signed: Sergio Maharaj DO at 16:50 EDT Reading Location ID and State: [facility] Tel [phone], Service support ,
--- NOTE | 2023-01-22 11:19 | ECHOCS_ITS ---
Reason For Study: CHF Procedure This was a 2D Doppler, Color Flow transthoracic echocardiogram. The study was technically limited. The study was technically difficult. Contrast injection was performed. Exam performed portable in patient room. Left Ventricle Normal LV size. Left ventricular systolic function is normal. The estimated ejection fraction is 65 %. No regional wall motion abnormalities noted. Right Ventricle Normal RV size. Normal systolic function. Atria The left atrium is moderately enlarged. The right atrium is moderately enlarged. Great Vessels Normal aortic root. Pericardium/Pleural No pericardial effusion. Medication 22 gauge I.V. with prn adaptor inserted into right arm. Diluted definity 2.0ml given slow IV push to enhance endocardial definition. MMode/2D Measurements & Calculations RVDd: 3.8 cm LAV(MOD-bp): 104.8 ml LVAd ap4: 27.0 cm2 LAV(MOD-bp) Indexed: 51.7 ml/m2 LVLd ap4: 7.0 cm LAV(MOD-sp2): 85.6 ml EDV(MOD-sp4): 87.2 ml LAV(MOD-sp4): 97.2 ml EDV(sp4-el): 88.9 ml LVAs ap4: 15.4 cm2 LVLs ap4: 6.6 cm ESV(MOD-sp4): 29.7 ml ESV(sp4-el): 30.4 ml EF(MOD-sp4): 65.9 % EF(sp4-el): 65.8 % SV(MOD-sp4): 57.5 ml SV(MOD-sp2): 47.8 ml LVAd ap2: 27.3 cm2 LVLd ap2: 8.3 cm EDV(MOD-sp2): 76.2 ml EDV(sp2-el): 76.9 ml LVAs ap2: 15.1 cm2 LVLs ap2: 6.6 cm ESV(MOD-sp2): 28.4 ml ESV(sp2-el): 29.1 ml EF(MOD-sp2): 62.7 % SV(sp4-el): 58.5 ml LA A4 area: 30.1 cm2 RA A4 area: 30.4 cm2 Time Measurements MV dec time: 0.19 sec Doppler Measurements & Calculations MV E max mikie: 81.6 cm/sec Lat Peak E' Mikie: 7.3 cm/sec Med Peak E' Mikie: 7.6 cm/sec MV A max mikie: 39.4 cm/sec E/E' lat: 11.1 E/E' med: 10.7 MV E/A: 2.1 Ao V2 max: 116.8 cm/sec LV V1 max: 104.2 cm/sec Ao max P.5 mmHg LV V1 max P.3 mmHg Ao V2 mean: 74.2 cm/sec LV V1 mean P.8 mmHg Ao mean P.6 mmHg LV V1 mean: 82.3 cm/sec Ao V2 VTI: 26.1 cm LV V1 VTI: 27.9 cm AV (velocity ratio): 1.1 ECHO/Echo Complete W/ Contrast Interpretation Summary Normal LV size. Left ventricular systolic function is normal. The estimated ejection fraction is 65 %. The left atrium is moderately enlarged. The right atrium is moderately enlarged. Contrast injection was performed. Ordering Physician: Maurice Gama Referring Physician: Fredy Beth Performed By: Dana Alonso RDCS, RVT
[2023-01-22 11:34] LABS: Partial Thromboplast Time 40.8 Seconds (24.1-36.2)
[2023-01-22 11:37] LABS: BNP,B-Type NATRIURETIC PEPTIDE 841.9 pg/mL (0-100)
[2023-01-22] MEDS: Lisinopril 20 MG Tablet PO (11:41)
--- NOTE | 2023-01-22 12:53 | CHAPLAIN ---
Type of Pastoral Visit _x__ Initial Visit ___ Follow-up Visit ___ On-call Visit ___ General Patient Visit ___ Spiritual Assessment ___ Family Conference ___ Bereavement ___ Rapid Response ___ Code Blue ___ Other (describe below) Pastoral Care Referral From _x__ Patient ___ Family ___ Nurse ___ Physician ___ Oracle Developer ___ Check Examiner ___ Other (describe below) Sacrament/Intervention _x__ Active listening ___ Anointing ___ Alevism ___ Bereavement ___ Communion _x__ Sarah exploration ___ _x__ Life review _x__ Prayer ___ Reconciliation ___ Sacrament of Sick _x__ Supportive presence ___ Wedding ___ Other (describe below) Pastoral Comments patient was seen in previous admission a long time ago; pt is welcoming and discusses his current health and reason for admission; pt given opportunity to speak of his management of life altering illness; pt shares his need to be around people and to be active; sarah and support are addressed; as pt loves sports the conversation continued about his interest in sports; pt opened up about his hope that his life still has purpose; pt welcomed presence and prayer
--- NOTE | 2023-01-22 13:50 | CASEMGMT ---
Addendum entered by Kelsey Voss 01/22/23 15:01: Pt is active with SN and PT through [facility]. Added SN to resumption order. Original Note: SAVANA MENDEZ Assessment: Face to Face with pt for initial transition planning/care coordination assessment. SAVANA MENDEZ introduced self and role at [facility], pt voices understanding and consents to assessment. Pt is A/O x4 and answers all questions appropriately at this time. Pt lying in bed with oxygen on in no distress. Care providers, pharmacy, and demographics verified/updated. Admitting Dx: nephrolithiasis, hypoxia PCP:[facility] Specialists:Pt denies Preferred Pharmacy:[facility] Insurance: MMo, MCR A Prescription Benefit: yes LNOK: Dana Gustafson, ; Jada Soolmon dtr Living Arrangements: Pt lives with in a two story home with 2 steps to enter with a rail. Pt reports he is I in ADL's and denies concerns at home. Transportation: Pt does not drive since his stroke 6 years ago. Pt and son transports him to medical appts. DME/HHC/SNF: Pt has a pox, grab bars and 3 prong cane at home. Pt has recently had oxygen but no longer has any longer. Pt states he is active with [facility] for PT. Pt would like to resume this upon dc. He denies need of a list of other options for agencies. Pt has been to a SNF in [place] but cannot recall the name. Pt states no concerns with going home at time of dc. Referral to [facility] for resumption via careport by dc turnaround planner. Pt states no further concerns/needs. CM to follow. Advised pt to ask CM if any further question/concerns/needs arise, voices understanding. Pt Goal: Home with JO of PT Plan: Home with JO of PT by [facility], monitor for oxygen
--- NOTE | 2023-01-22 14:07 | CASEMGMT ---
Discharge Planning Call placed to [facility] . Verified that patient is active. RN CM notified. Ilsa Espinoza, Discharge Planning Asst.
--- NOTE | 2023-01-22 14:20 | CASEMGMT ---
Addendum entered by Ilsa Espinoza 01/22/23 15:07: HH order for PT/SN sent via [facility] to [facility]. Ilsa Espinoza, Discharge Planning Asst. Original Note: Discharge Planning [facility] Ilsa Espinoza, Discharge Planning Asst.
[2023-01-22] MEDS: Acetaminophen 500 MG Tablet PO (17:31)
[2023-01-22] MEDS: hydrALAZINE 20 MG/ML Vial 10 MG IV (17:35)
[2023-01-22] MEDS: 0.9% Saline Lock 10 ML Syringe IV (20:16)
[2023-01-22] MEDS: Fluoxetine HCl 40 MG CAPSULE PO (21:12)
[2023-01-22] MEDS: Tamsulosin HCl 0.4 MG Capsule PO (21:12)
[2023-01-23] VITALS (16 sets, daily range): BP systolic 109–172; BP diastolic 59–89; PULSE 57–82; RESP 12–20; TEMP 36.8–37.3; O2SAT 83–100; BMI 24.2
[2023-01-23] MEDS: Ondansetron 4 MG/2 ML Vial IV ×2 (00:01→15:29)
[2023-01-23] MEDS: 0.9% Normal Saline 1,000 ML 75 ML IV (06:50)
--- NOTE | 2023-01-23 07:23 | PN.HOSP_ITS ---
Reason for Visit Reason for Visit: Diagnoses Major depressive disorder, single episode, unspecified (01/22/23) Hemiplegia, unspecified affecting left nondominant side (01/22/23) Essential (primary) hypertension (01/22/23) Paralysis of vocal cords and larynx, unspecified (01/22/23) Unspecified asthma, uncomplicated (01/22/23) Calculus of kidney (01/22/23) Bradycardia, unspecified (01/22/23) Hypoxemia (01/22/23) Subjective Subjective Did not sleep well last night. Objective Data Objective Data Vital Signs: Vital Signs Temp Pulse Resp BP Pulse Ox O2 Del Method O2 Flow Rate 37.2 C 64 16 141/78 H 97 Nasal Cannula 2 01/23/23 01:44 01/23/23 01:44 01/23/23 01:44 01/23/23 01:44 01/23/23 01:44 01/23/23 01:44 01/23/23 01:44 Oxygen Flow Rate (L/min) 2 Oxygen Delivery Method Nasal Cannula Weight: 81.012 kg Body Mass Index (BMI) 24.2 Intake & Output: Intake and Output for Last 24 Hours 01/21/23 01/22/23 01/23/23 23:59 23:59 23:59 Intake Total 2030.25 / 2030.25 Output Total 800 / 1050 250 / 250 Balance 1230.25 / 980.25 -250 / -250 Lab / Micro Data 01/22/23 05:20 01/23/23 05:50 Labs: Laboratory Results - last 24 hr 01/22/23 05:20: B-Natriuretic Peptide 841.9 H 01/22/23 11:14: APTT 40.8 H Radiography Diagnostic Testing: Radiology Impression Chest X-Ray 01/22/23 11:13 IMPRESSION: 1. Elevated left hemidiaphragm. 2. Right basilar atelectasis. 3. Cardiomegaly with evidence of median sternotomy and aortic stenting. Electronically Signed: Sergio Maharaj DO at 16:50 EDT Reading Location ID and State: [address] [place] [address] Tel [phone], Service support , Echocardiogram 01/22/23 11:19 Interpretation Summary Normal LV size. Left ventricular systolic function is normal. The estimated ejection fraction is 65 %. The left atrium is moderately enlarged. The right atrium is moderately enlarged. Contrast injection was performed. Ordering Physician: Maurice Gama Referring Physician: Fredy Beth Performed By: Dana Alonso, TEDDY, RVT Physical Exam Const alert and no apparent distress HEENT head/scalp atraumatic Resp normal respiratory effort and no retractions Cardio regular rate, regular rhythm, S1 normal heart sound and S2 normal heart sound GI normal to inspection, nondistended, normoactive bowel sounds, soft to palpation, non-tender and non-distended Assessment & Plan Assessment/Plan (1) Nephrolithiasis: PLAN: Left sided 5mm stone. Subjectively improved Consult Dr. Acevedo. Pain control Continue tamsulosin (2) Hypoxia: PLAN: Per documentation, occurred after morphine Wean oxygen as tolerated PEP therapy CXR report with right basilar ATX Echo shows EF 65%, LA moderately enlarged. RA moderately enlarged. BNP 841, though clinically not in CHF at this time. (3) Bradycardia: PLAN: Asymptomatic Improved HR into 40s. Hold metoprolol. Monitor (4) Hypertension: PLAN: BP up to 213 systolic Improved after the addition of lisinopril and PRN hydralazine PLAN: Plan Chronic condition * HTN: continue metoprolol * h/o aortic dissection * h/o right MCA CVA: continue ASA * Asthma * Depression: continue fluoxetine * Dysphagia: * Seizure d/o: continue levetiracetam * vocal cord paralysis VTE prophylaxis: Charges/Coding Visit Charges Inpatient E&M: 10711 Subs Hosp L2
[2023-01-23 07:37] LABS: Anion Gap 5 (5-15); BUN 14 mg/dL (7-18); BUN/Creat Ratio 26.3 RATIO (10-20); Calcium,Total 8.5 mg/dL (8.5-10.1); Chloride 109 mmol/L (98-107); Creatinine, Serum 0.53 mg/dL (0.70-1.30); EST Glomerular Filtration Rate 168 mL/min (>60); Est Glom Filt Rate - Afr Amer 204 mL/min (>60); Estimated Creatinine Clearance 166.75 ml/min; Glucose 121 mg/dL (74-106); Potassium 3.8 mmol/L (3.5-5.1); Sodium Level 142 mmol/L (136-145)
[2023-01-23] MEDS: tiZANidine HCl 2 MG Tablet PO ×2 (08:54→20:16)
[2023-01-23] MEDS: Lisinopril 20 MG Tablet PO (08:54)
[2023-01-23] MEDS: Loratadine 10 MG Tablet PO (08:54)
[2023-01-23] MEDS: Polyethylene Glycol 3350 17 GM PACKET PO (08:54)
[2023-01-23] MEDS: Gabapentin 300 MG Capsule PO (08:54)
[2023-01-23] MEDS: Multivitamins,Ther W-Minerals Tablet 1 TABLET PO (08:55)
[2023-01-23] MEDS: levETIRAcetam 1,000 MG Tablet 1000 MG PO ×2 (08:55→20:17)
--- NOTE | 2023-01-23 11:17 | CASEMGMT ---
Social Work Pt does have a health care POA on file naming Dana Gustafson, however only six of the twelve pages are scanned in. SW met with pt who confirms Dana continues to be HCPOA and SW requested documents be brought in to rescan into EMR. Pt states he does have a living will and SW requested it be brought in for scanning into EMR. SCARLETT Sebastian
[2023-01-23] MEDS: Lactated Ringers 1,000 ML 15 ML IV (15:28)
--- NOTE | 2023-01-23 16:15 | RAD_ITS ---
INDICATION: pre op EXAMINATION/TECHNIQUE: X-RAY - XR Chest 2 Views COMPARISON: January 22, 2023 FINDINGS: LINES/DEVICES: None. LUNGS: There is questionable airspace disease or atelectasis at both lung bases. There is elevation of the left hemidiaphragm. There is a small left pleural effusion. There is questionable airspace disease at the right lung base. MEDIASTINUM AND CARDIOVASCULAR STRUCTURES: Cardiac silhouette not enlarged. Central airways and mediastinal contour are unremarkable. BONES AND SOFT TISSUES: Unremarkable. RAD/Chest PA and Lateral IMPRESSION: Question airspace disease at both lung bases and small left effusion. Stable elevation of the left hemidiaphragm. Findings appear grossly stable to exception of mild increased prominence of questionable airspace disease at the right lung base nodule seen on the prior study. Electronically Signed: Ra Adam, at 16:50 EDT ,
[2023-01-23 16:57] LABS: SITE R Brach; VBG BASE EXCESS 6 mmol/L (-1.0-3.5); VBG Bicarbonate 31 mmol/L (22-26); VBG PO2 45 mmHg (25-40); VBG SO2 78 % (50-70); VBG TCO2 33 mmol/L (23-33); VBG pCO2 54.5 mmHg (41-51); VBG pH 7.36 (7.32-7.42)
[2023-01-23 17:07] LABS: Bedside Glucose 92 mg/dL (74-106)
[2023-01-23 17:23] LABS: Base Excess 5 mmol/L (-2 to +2); Bicarbonate 30.6 mmol/L (22-26); Blood Gas Specimen Type ART; FI02 21; PO2 43 mmHG (75-100); SITE R Brach; SO2 76 % (95-99); Total Carbon Dioxide 32 mmol/L; pCO2 53.3 mmHg (35-45); pH 7.37 (7.35-7.45)
[2023-01-23 17:41] LABS: Blood Gas Specimen Type ART
[2023-01-23] MEDS: Cefazolin 2 GM in 0.9% Normal Saline 100 ML IV (20:09)
[2023-01-23] MEDS: Acetaminophen 500 MG Tablet PO (20:16)
[2023-01-23] MEDS: Tamsulosin HCl 0.4 MG Capsule PO (20:17)
[2023-01-23] MEDS: Fluoxetine HCl 40 MG CAPSULE PO (20:17)
[2023-01-23] MEDS: 0.9% Saline Lock 10 ML Syringe IV (20:35)
--- NOTE | 2023-01-23 21:46 | NURSING ---
spoke with pharmacy regarding pts cefazolin schedule, the first dose supposed to be given at 1600 was not administered in pacu and this rn hang the meds at 2000 when pt came back from s. pt has 2200 cefazolin scheduled, pharmacist states to give that dose at 0100 and the 0600 dose at 0700 then it will be back on track then.
[2023-01-23] MEDS: MELATONIN 10 MG TABLET PO (23:09)
[2023-01-24] VITALS (7 sets, daily range): BP systolic 154–166; BP diastolic 81–83; PULSE 60–64; RESP 16–18; TEMP 36.6–36.9; O2SAT 91–99
[2023-01-24] MEDS: Cefazolin 2 GM in 0.9% Normal Saline 100 ML IV ×2 (01:03→06:50)
[2023-01-24 07:41] LABS: Anion Gap 4 (5-15); BUN 12 mg/dL (7-18); BUN/Creat Ratio 20.8 RATIO (10-20); Calcium,Total 8.8 mg/dL (8.5-10.1); Chloride 106 mmol/L (98-107); Creatinine, Serum 0.58 mg/dL (0.70-1.30); EST Glomerular Filtration Rate 153 mL/min (>60); Est Glom Filt Rate - Afr Amer 185 mL/min (>60); Estimated Creatinine Clearance 152.38 ml/min; Glucose 93 mg/dL (74-106); Potassium 3.5 mmol/L (3.5-5.1); Sodium Level 139 mmol/L (136-145)
--- NOTE | 2023-01-24 07:41 | PCM.PN.GU ---
Subjective Subjective Status post left stent placement for obstructing stone, this morning he looks much better more comfortable oxygenation has improved I think he can be discharged home from my perspective. Also patient desires to go home. Here he has outpatient follow-up set up for an outpatient lithotripsy for his stones. Objective Data Objective Data Vital Signs: Vital Signs Temp Pulse Resp BP Pulse Ox O2 Del Method O2 Flow Rate 97.9 F 60 16 154/83 H 99 Nasal Cannula 2 01/24/23 03:41 01/24/23 03:41 01/24/23 03:41 01/24/23 03:41 01/24/23 03:41 01/24/23 03:41 01/24/23 03:41 Oxygen Flow Rate (L/min) 2 Oxygen Delivery Method Nasal Cannula Weight: 81.012 kg Body Mass Index (BMI) 24.2 Intake & Output: Intake and Output for Last 24 Hours 01/22/23 01/23/23 01/24/23 23:59 23:59 23:59 Intake Total 2030.25 / 2030.25 1235 / 1235 363.25 / 363.25 Output Total 800 / 1050 850 / 1125 575 / 575 Balance 1230.25 / 980.25 385 / 110 -211.75 / -211.75 Lab / Micro Data 01/22/23 05:20 01/24/23 05:55 Labs: Laboratory Results - last 24 hr 01/23/23 16:49: POC Glucose 92 01/24/23 05:55: Sodium 139, Potassium 3.5, Chloride 106, Carbon Dioxide 29.0, Anion Gap 4 L, BUN 12, Creatinine 0.58 L, Estim Creat Clear Calc 152.38, Est GFR (MDRD) Af Amer 185, Est GFR (MDRD) Non-Af 153, BUN/Creatinine Ratio 20.8 H, Glucose 93, Calcium 8.8 Micro: Microbiology 01/22/23 04:30 Urine, Clean Catch Urine Culture - Preliminary GPC Poss Enterococcus sp ABG Data ABG results: ABG 01/23/23 01/23/23 16:52 17:19 Specimen Type ART ART Sample Site R Brach R Brach pH 7.37 Bicarbonate Actual 30.6 H Total CO2 32 Base Excess 5 H O2 Saturation 76 L O2 % 21 ABG pCO2 53.3 H ABG pO2 43 L VBG pH 7.36 VBG pO2 45 H VBG HCO3 31 H VBG Total CO2 33 VBG O2 Sat (Calc) 78 H VBG Base Excess 6 H POC Mix VBG pCO2 Pt Tmp 54.5 H Radiography Diagnostic Testing: Radiology Impression Chest X-Ray 01/23/23 16:15 IMPRESSION: Question airspace disease at both lung bases and small left effusion. Stable elevation of the left hemidiaphragm. Findings appear grossly stable to exception of mild increased prominence of questionable airspace disease at the right lung base nodule seen on the prior study. Electronically Signed: Ra Adam, at 16:50 EDT ,
[2023-01-24] MEDS: Multivitamins,Ther W-Minerals Tablet 1 TABLET PO (08:49)
[2023-01-24] MEDS: Lisinopril 20 MG Tablet PO (08:49)
[2023-01-24] MEDS: Aspirin E.C. 81 MG Tablet PO (08:49)
[2023-01-24] MEDS: Loratadine 10 MG Tablet PO (08:49)
[2023-01-24] MEDS: Polyethylene Glycol 3350 17 GM PACKET PO (08:50)
[2023-01-24] MEDS: levETIRAcetam 1,000 MG Tablet 1000 MG PO (08:50)
[2023-01-24] MEDS: Gabapentin 300 MG Capsule PO (08:52)
[2023-01-24] MEDS: tiZANidine HCl 2 MG Tablet PO (08:52)
--- NOTE | 2023-01-24 08:55 | PN.HOSP_ITS ---
Reason for Visit Reason for Visit: Diagnoses Major depressive disorder, single episode, unspecified (01/22/23) Hemiplegia, unspecified affecting left nondominant side (01/22/23) Essential (primary) hypertension (01/22/23) Paralysis of vocal cords and larynx, unspecified (01/22/23) Unspecified asthma, uncomplicated (01/22/23) Calculus of kidney (01/22/23) Bradycardia, unspecified (01/22/23) Hypoxemia (01/22/23) Subjective Subjective Feels good. No events overnight. Objective Data Objective Data Vital Signs: Vital Signs Temp Pulse Resp BP Pulse Ox O2 Del Method O2 Flow Rate 36.9 C 64 18 166/81 H 91 Room Air 2 01/24/23 08:46 01/24/23 08:46 01/24/23 08:46 01/24/23 08:46 01/24/23 08:46 01/24/23 08:46 01/24/23 07:25 Oxygen Flow Rate (L/min) 2 Oxygen Delivery Method Room Air Weight: 81.012 kg Body Mass Index (BMI) 24.2 Intake & Output: Intake and Output for Last 24 Hours 01/22/23 01/23/23 01/24/23 23:59 23:59 23:59 Intake Total 2030.25 / 2030.25 1235 / 1235 363.25 / 363.25 Output Total 800 / 1050 850 / 1125 575 / 575 Balance 1230.25 / 980.25 385 / 110 -211.75 / -211.75 Lab / Micro Data 01/22/23 05:20 01/24/23 05:55 Labs: Laboratory Results - last 24 hr 01/23/23 16:49: POC Glucose 92 01/24/23 05:55: Sodium 139, Potassium 3.5, Chloride 106, Carbon Dioxide 29.0, Anion Gap 4 L, BUN 12, Creatinine 0.58 L, Estim Creat Clear Calc 152.38, Est GFR (MDRD) Af Amer 185, Est GFR (MDRD) Non-Af 153, BUN/Creatinine Ratio 20.8 H, Glucose 93, Calcium 8.8 Micro: Microbiology 01/22/23 04:30 Urine, Clean Catch Urine Culture - Preliminary GPC Poss Enterococcus sp ABG Data ABG results: ABG 01/23/23 01/23/23 16:52 17:19 Specimen Type ART ART Sample Site R Brach R Brach pH 7.37 Bicarbonate Actual 30.6 H Total CO2 32 Base Excess 5 H O2 Saturation 76 L O2 % 21 ABG pCO2 53.3 H ABG pO2 43 L VBG pH 7.36 VBG pO2 45 H VBG HCO3 31 H VBG Total CO2 33 VBG O2 Sat (Calc) 78 H VBG Base Excess 6 H POC Mix VBG pCO2 Pt Tmp 54.5 H Radiography Diagnostic Testing: Radiology Impression Chest X-Ray 01/23/23 16:15 IMPRESSION: Question airspace disease at both lung bases and small left effusion. Stable elevation of the left hemidiaphragm. Findings appear grossly stable to exception of mild increased prominence of questionable airspace disease at the right lung base nodule seen on the prior study. Electronically Signed: Ra Adam, at 16:50 EDT Reading Location ID and State: [address] [place] [address] Tel , Service support , Physical Exam Const alert and no apparent distress Resp normal respiratory effort, no retractions, no use of accessory muscles and clear to auscultation bilaterally Cardio regular rate, regular rhythm, S1 normal heart sound and S2 normal heart sound GI normal to inspection, nondistended, normoactive bowel sounds, soft to palpation, non-tender and non-distended Assessment & Plan Assessment/Plan (1) Nephrolithiasis: PLAN: Left sided 5mm stone. Subjectively improved Pain control Continue tamsulosin s/p left ureteral stent. follow up with as outpt (2) Hypoxia: PLAN: Per documentation, occurred after morphine Wean oxygen as tolerated PEP therapy CXR report with right basilar ATX Echo shows EF 65%, LA moderately enlarged. RA moderately enlarged. BNP 841, though clinically not in CHF at this time. (3) Bradycardia: PLAN: Asymptomatic Improved, but HR remaining in 50s-60s despite metoprolol being held. Will continue to hold metoprolol. (4) Hypertension: QUALIFIERS: Hypertension type: primary hypertension Qualified Code(s): I10 - Essential (primary) hypertension PLAN: BP up to 213 systolic Improved after the addition of lisinopril and PRN hydralazine (5) UTI (urinary tract infection): PLAN: Enterococcus Discharge with amoxicillin PLAN: Plan Chronic condition * HTN: continue metoprolol * h/o aortic dissection * h/o right MCA CVA: continue ASA * Asthma * Depression: continue fluoxetine * Dysphagia: * Seizure d/o: continue levetiracetam * vocal cord paralysis VTE prophylaxis:
--- NOTE | 2023-01-24 10:39 | DCINST_ITS ---
Discharge Instructions Diet Discharge Diet: Low fat / Low cholesterol Dressing / Incision Call your doctor if you observe: - (flank (side) pain. blood in urine. ) Follow Up Care Test Results: Test results from this visit will be discussed in further detail at your follow- up appointment, if applicable. Discharge Plan Admission Admit Date/Time: 01/22/23 04:08 Primary Reason for Your Visit: ureteral stone. Attending Provider: Maurice Gama Primary Care Provider: Fredy Beth Consulting Providers: Johnathon Acevedo; Dash Espinal Discharge Orders/Prescriptions Prescriptions: New lisinopril 20 mg Tablet 20 mg PO DAILY Qty: 30 0RF amoxicillin 500 mg capsule 500 mg PO Q12H Qty: 14 0RF Continued albuterol sulfate 2.5 mg /3 mL (0.083 %) solution for nebulization 2.5 mg INHALATION .q 6H PRN (Reason: Wheezing Or Cough) aspirin [Adult Aspirin Regimen] 81 mg tablet,delayed release (DR/EC) 81 mg PO DAILY gabapentin 300 mg capsule 300 mg PO DAILY tizanidine 2 mg capsule 2 mg PO BID polyethylene glycol 3350 17 GM packet 17 gm PO DAILY PRN PRN (Reason: Constipation) albuterol sulfate 1 PUFF inhaler 2 puff inhalation Q4H PRN PRN (Reason: Asthma) baclofen 2,000 MCG/ML solution 150 - 160 mcg IT DAILY acetaminophen 500 MG tablet 500 mg PO Q4H PRN PRN (Reason: Pain) Qty: 20 0RF levetiracetam 1,000 MG tablet 1,000 mg PO BID fluoxetine 40 mg capsule 40 mg PO DAILY cetirizine [Zyrtec] 10 mg Tablet 10 mg PO DAILY tamsulosin 0.4 mg capsule 0.4 mg PO QHS Patient Comments: take 1 capsule by mouth at bedtime Multivitamin 50 Plus Tablet 1 tab PO DAILY Discontinued metoprolol tartrate 25 mg tablet 25 mg PO BID Qty: 180 3RF Referrals / Follow Up: Johnathon Acevedo MD [Med Staff - Active Staff] - Within 2 Weeks Fredy Beth MD [Primary Care Provider] - Within 2 Weeks Disposition Disposition (needs filled in before D/C Order can be placed): Home Health Service
--- NOTE | 2023-01-24 10:45 | DS.PCM_ITS ---
Providers Date of Admission: 01/22/23 Primary Care Physician: Dr. Fredy Beth MD Consultations 01/22/23 04:20 Consult: Urology Routine Consulting Provider: Johnathon Acevedo Reason for Consult: Nephrolithiasis EMERGENT Consult: No MD Notified: Yes Date Notified: 01/22/23 Time Notified: 04:13 Method of Notification: ED Physician Initiated Reason For Visit: NEPHROLITHIASIS, HYPOXIA Diagnosis Discharge Diagnosis (1) Nephrolithiasis: Status: Acute Code(s): N20.0 - Calculus of kidney Plan: Left sided 5mm stone. Subjectively improved Pain control Continue tamsulosin s/p left ureteral stent. follow up with as outpt (2) Hypoxia: Status: Acute Code(s): R09.02 - Hypoxemia Plan: Per documentation, occurred after morphine Wean oxygen as tolerated PEP therapy CXR report with right basilar ATX Echo shows EF 65%, LA moderately enlarged. RA moderately enlarged. BNP 841, though clinically not in CHF at this time. (3) Bradycardia: Status: Acute Code(s): R00.1 - Bradycardia, unspecified Plan: Asymptomatic Improved, but HR remaining in 50s-60s despite metoprolol being held. Will continue to hold metoprolol. (4) Hypertension: Status: Chronic Code(s): I10 - Essential (primary) hypertension Qualifiers: Hypertension type: primary hypertension Qualified Code(s): I10 - Essential (primary) hypertension Plan: BP up to 213 systolic Improved after the addition of lisinopril and PRN hydralazine (5) UTI (urinary tract infection): Status: Acute Code(s): N39.0 - Urinary tract infection, site not specified Plan: Enterococcus (from OSH. Discharge with amoxicillin Plan Chronic condition * HTN: continue metoprolol * h/o aortic dissection * h/o right MCA CVA: continue ASA * Asthma * Depression: continue fluoxetine * Dysphagia: * Seizure d/o: continue levetiracetam * vocal cord paralysis Medications at Discharge Home Medications albuterol sulfate 90 mcg/actuation aerosol inhaler 2 puff inhalation Q4H PRN PRN Asthma 06/02/18 polyethylene glycol 3350 17 gram oral powder packet 17 gm PO DAILY PRN PRN Constipation 06/02/18 albuterol sulfate 2.5 mg/3 mL (0.083 %) solution for nebulization 2.5 mg inhalation .q 6H PRN Wheezing Or Cough 08/04/18 aspirin 81 mg tablet,delayed release (Adult Aspirin Regimen) 81 mg PO DAILY blood thinner 08/04/18 baclofen 2,000 mcg/mL intrathecal solution 150 - 160 mcg IT DAILY pain 10/07/18 acetaminophen 500 mg tablet 500 mg PO Q4H PRN PRN Pain #20 tabs 10/10/18 levetiracetam 1,000 mg tablet 1,000 mg PO BID seizure 11/05/18 gabapentin 300 mg capsule 300 mg PO DAILY cva 09/14/19 tizanidine 2 mg capsule 2 mg PO BID pain 09/14/19 cetirizine 10 mg tablet (Zyrtec) 10 mg PO DAILY allergies 01/22/23 fluoxetine 40 mg capsule 40 mg PO DAILY depression 01/22/23 eahaxseadskk-hofjqwkj-dejgzo tablet (Multivitamin 50 Plus tablet) 1 tab PO DAILY vitamins 01/22/23 tamsulosin 0.4 mg capsule 0.4 mg PO QHS kidney stones 01/22/23 amoxicillin 500 mg capsule 500 mg PO Q12H #14 caps 01/24/23 lisinopril 20 mg tablet 20 mg PO DAILY #30 tabs 01/24/23 Hospital Course Operations None Procedures None Summary of Care Provided Minutes Spent on Discharge: 32 Hospital Course: 57-year-old male presents outside hospital with flank pain. Diagnosed with a 5 mm ureteral calculus on the left. Patient did receive morphine and became hypoxic. As they are unable to discharge him, patient was transferred here as we have coverage. Patient was taken for a stent placement on the and tolerated that well. Additionally, patient was found to have Enterococcus urinary tract infection that was sensitive to ampicillin. We will discharge patient with amoxicillin. With the patient's hypoxia, patient had a chest x-ray that showed some atelectasis. BNP was elevated but patient clinically did not have any CHF so that was not treated. Echocardiogram was unremarkable. Weight / BMI Weight Weight: 81.012 kg Body Mass Index (BMI) 24.2 ABG / Lab / Microbiology Data 01/22/23 05:20 01/24/23 05:55 Laboratory: Laboratory Results - last 24 hr 01/23/23 16:49: POC Glucose 92 01/24/23 05:55: Sodium 139, Potassium 3.5, Chloride 106, Carbon Dioxide 29.0, Anion Gap 4 L, BUN 12, Creatinine 0.58 L, Estim Creat Clear Calc 152.38, Est GFR (MDRD) Af Amer 185, Est GFR (MDRD) Non-Af 153, BUN/Creatinine Ratio 20.8 H, Glucose 93, Calcium 8.8 Microbiology: Microbiology 01/22/23 04:30 Urine, Clean Catch Urine Culture - Preliminary GPC Poss Enterococcus sp ABG: ABG 01/23/23 01/23/23 16:52 17:19 Specimen Type ART ART Sample Site R Brach R Brach pH 7.37 Bicarbonate Actual 30.6 H Total CO2 32 Base Excess 5 H O2 Saturation 76 L O2 % 21 ABG pCO2 53.3 H ABG pO2 43 L VBG pH 7.36 VBG pO2 45 H VBG HCO3 31 H VBG Total CO2 33 VBG O2 Sat (Calc) 78 H VBG Base Excess 6 H POC Mix VBG pCO2 Pt Tmp 54.5 H Radiography Diagnostic Testing: Radiology Impression Chest X-Ray 01/23/23 16:15 IMPRESSION: Question airspace disease at both lung bases and small left effusion. Stable elevation of the left hemidiaphragm. Findings appear grossly stable to exception of mild increased prominence of questionable airspace disease at the right lung base nodule seen on the prior study. Electronically Signed: Ra Adam, at 16:50 EDT Reading Location ID and State: [address] [place] [address] Tel , Service support , D/C Instructions Discharge Diet: Low fat / Low cholesterol Call your doctor if you observe: - (flank (side) pain. blood in urine. ) Meaningful Use Info Meaningful Use Diagnoses (Choose all that apply): None applicable Discharge Plan Admission Admit Date/Time: 01/22/23 04:08 Primary Reason for Your Visit: ureteral stone. Attending Provider: Maurice Gama Primary Care Provider: Fredy Beth Consulting Providers: Johnathon Acevedo; Dash Espinal Discharge Orders/Prescriptions Prescriptions: New lisinopril 20 mg Tablet 20 mg PO DAILY Qty: 30 0RF amoxicillin 500 mg capsule 500 mg PO Q12H Qty: 14 0RF Continued albuterol sulfate 2.5 mg /3 mL (0.083 %) solution for nebulization 2.5 mg INHALATION .q 6H PRN (Reason: Wheezing Or Cough) aspirin [Adult Aspirin Regimen] 81 mg tablet,delayed release (DR/EC) 81 mg PO DAILY gabapentin 300 mg capsule 300 mg PO DAILY tizanidine 2 mg capsule 2 mg PO BID polyethylene glycol 3350 17 GM packet 17 gm PO DAILY PRN PRN (Reason: Constipation) albuterol sulfate 1 PUFF inhaler 2 puff inhalation Q4H PRN PRN (Reason: Asthma) baclofen 2,000 MCG/ML solution 150 - 160 mcg IT DAILY acetaminophen 500 MG tablet 500 mg PO Q4H PRN PRN (Reason: Pain) Qty: 20 0RF levetiracetam 1,000 MG tablet 1,000 mg PO BID fluoxetine 40 mg capsule 40 mg PO DAILY cetirizine [Zyrtec] 10 mg Tablet 10 mg PO DAILY tamsulosin 0.4 mg capsule 0.4 mg PO QHS Patient Comments: take 1 capsule by mouth at bedtime Multivitamin 50 Plus Tablet 1 tab PO DAILY Discontinued metoprolol tartrate 25 mg tablet 25 mg PO BID Qty: 180 3RF Referrals / Follow Up: Johnathon Acevedo MD [Med Staff - Active Staff] - Within 2 Weeks Fredy Beth MD [Primary Care Provider] - Within 2 Weeks Disposition Disposition (needs filled in before D/C Order can be placed): Home Health Service Charges/Coding Visit Charges Inpatient E&M: 36102 Disch Hosp >30min
--- NOTE | 2023-01-24 11:37 | CASEMGMT ---
Discharge Planning Discharge instructions/summary sent to [facility] via [employer]. Ilsa Espinoza, Discharge Planning Asst.
--- NOTE | 2023-02-06 07:55 | PCM.OPRPT ---
Report of Operation Date of Procedure: 02/06/23 Pre-Operative Diagnosis: kidney stone Post-Operative Diagnosis: same Surgery/Procedure Performed:: Cystoscopy left stent placement Description of Surgical Findings:: Patient was taken back to the operating room after induction of general anesthesia, the patient was placed in dorsolithotomy position. The urethra and genitals were prepped and draped in usual sterile fashion. Using a 21 Mozambican rigid cystourethroscope the entire length of the urethra was normal then went into the bladder. Identified the trigone the left and right ureteral orifice. I then cannulated the Left orifice and advanced a wire up into the kidney. I then backloaded a 5 Mozambican open ended catheter over the wire and injected contrast to delineate the anatomy. After the retrograde was performed I then used fluoroscopic images and guidance to advanced a wire up into the kidney and over the 0.038 glidewire I advanced a 6 Mozambican by 26 cm double pigtail stent. I then pulled the 0.038 Glidewire off and the stent coiled in the kidney bladder good position. The bladder was then drained. We confirmed the position of the stent by fluoroscopy. Patient anesthetic was reversed and was taken back to the PACU in good condition. Surgeon: Johnathon Acevedo Type of Anesthesia: General Drains: stent Estimated Blood Loss (mL): 0 Admit VTE Documentation VTE Present on Admission: No VTE Mechan Device Prophylaxis: SCD's VTE Pharm Prophylaxis ordered?: No
== END 2023-01-24 12:30 | disposition home health service (06) | DRG 660 ==
PROVIDERS: Urology; Admitting Provider Family Medicine; PCP Family Medicine
PROC: 0T778DZ Dilation of Left Ureter with Intraluminal Device, Via Natural or Artificial Opening Endoscopic (ICD-10-PCS; CPT 52332; principal; 2023-01-23 15:00)
DX: N20.2 Calculus of kidney with calculus of ureter (principal); I69.354 Hemiplegia and hemiparesis following cerebral infarction affecting left non-dominant side; N39.0 Urinary tract infection, site not specified; J38.02 Paralysis of vocal cords and larynx, bilateral; G40.909 Epilepsy, unspecified, not intractable, without status epilepticus; I10 Essential (primary) hypertension; J45.909 Unspecified asthma, uncomplicated; F32.A Depression, unspecified; R00.1 Bradycardia, unspecified; R09.02 Hypoxemia; T40.2X5A Adverse effect of other opioids, initial encounter; B95.2 Enterococcus as the cause of diseases classified elsewhere; Z79.82 Long term (current) use of aspirin; Z79.899 Other long term (current) drug therapy; Z87.891 Personal history of nicotine dependence
CPT/HCPCS: 36415; 36600; 71045; 71046; 76000; 80048; 81001; 82803; 82962; 83880; 85025; 85730; 87077; 87086; 87088; 87186; 93005; 93306; 94668; 97110; 97162; 97166; 97530; 99406; J7030; J7120; Q9957; A4216; C1769; C2617; C8929; J2405

== ENCOUNTER 2023-02-15 11:18 | Day surgery (SDC) | payer OTHER, SELFPAY ==
[2023-02-15 11:43] VITALS: BP 155/104; PULSE 64; RESP 18; TEMP 36.3; O2SAT 96; BMI 21.5
[2023-02-15] MEDS: Lactated Ringers 1,000 ML 15 ML IV (11:49)
--- NOTE | 2023-02-15 12:46 | HP.PCM_ITS ---
HPI - General General Date of Service: 02/15/23 Chief Complaint: Left kidney stone HPI Narrative JOSE THOMPSON, is a 57 M who presents for laser of stone in the left side he underwent a cystoscopy left stent placement [facility] Medical History (Updated 02/11/23 @ 14:35 by Zena Ronquillo) Acute kidney injury Acute right MCA stroke (10/09/17) Ambulates with cane Anxiety Aortic dissection (10/09/17) Asthma Cardiology follow-up encounter Depression Depression Dysphagia Dysphagia history of Baclofen pump placement (~05/2018) History of edema History of stress test Hypertension Hypertension Kidney stones Left hemiplegia Rash Seizure disorder (10/09/17) Stroke/cerebrovascular accident Vocal cord paralysis Wears glasses Home Medications albuterol sulfate 90 mcg/actuation aerosol inhaler 2 puff inhalation Q4H PRN PRN Asthma 06/02/18 [History Last Taken 09/18/18 0800] polyethylene glycol 3350 17 gram oral powder packet 17 gm PO DAILY PRN PRN Constipation 06/02/18 [History Last Taken 09/18/18 0800] albuterol sulfate 2.5 mg/3 mL (0.083 %) solution for nebulization 2.5 mg inhalation .q 6H PRN Wheezing Or Cough 08/04/18 [History Last Taken 09/18/18 0800] aspirin 81 mg tablet,delayed release (Adult Aspirin Regimen) 81 mg PO DAILY blood thinner 08/04/18 [History Last Taken 01/25/23] baclofen 2,000 mcg/mL intrathecal solution 150 - 160 mcg IT DAILY pain 10/07/18 [History Last Taken Unknown] acetaminophen 500 mg tablet 500 mg PO Q4H PRN PRN Pain #20 tabs 10/10/18 [Rx Last Taken Unknown] levetiracetam 1,000 mg tablet 1,000 mg PO BID seizure 11/05/18 [History Last Taken 02/15/23] gabapentin 300 mg capsule 300 mg PO DAILY cva 09/14/19 [History Last Taken 02/15/23] tizanidine 2 mg capsule 2 mg PO BID pain 09/14/19 [History Last Taken 02/15/23] cetirizine 10 mg tablet (Zyrtec) 10 mg PO DAILY allergies 01/22/23 [History Last Taken Unknown] fluoxetine 40 mg capsule 40 mg PO DAILY depression 01/22/23 [History Last Taken 02/15/23] cdcpeiizwrch-iohlhnbr-dzoktl tablet (Multivitamin 50 Plus tablet) 1 tab PO DAILY vitamins 01/22/23 [History Last Taken Unknown] lisinopril 20 mg tablet 20 mg PO DAILY #30 tabs 01/24/23 [Rx Last Taken 02/15/23] cephalexin 500 mg capsule 500 mg PO TID #15 caps 02/15/23 [Rx Last Taken Unknown] Allergy/AdvReac Type Severity Reaction Status Date / Time cat dander Allergy Unknown Verified 02/15/23 11:43 grass pollen Allergy Itching Verified 02/15/23 11:43 Family History Father , Age 48 from CVA CVA (cerebral vascular accident) Grandfather Asthma Surgical History (Updated 02/11/23 @ 14:35 by Zena Ronquillo) H/O lithotripsy History of ankle surgery (~2012) History of aortic arch replacement (10/10/17) History of cranioplasty (02/28/18) History of inguinal hernia repair Hx of cystoscopy s/p removal of heel spurs Status post craniectomy (10/10/17) Status post wrist surgery (~2012) Social History Smoking Status: Current some day smoker tobacco type: cigars Vital Signs Vital Signs Vital Signs: 02/15/23 11:43 02/15/23 11:43 Temperature 97.3 F L Temperature Source Temporal Pulse Rate 64 Respiratory Rate 18 Respiratory Pattern Normal Blood Pressure 155/104 H Blood Pressure Mean 121 Blood Pressure Source Monitor Blood Pressure Position Semi-Fowlers Blood Pressure Location Left Arm Pulse Ox 96 Oxygen Delivery Method Room Air Weight Weight: 72 kg Body Mass Index (BMI) 21.5
--- NOTE | 2023-02-15 12:46 | DCINST_ITS ---
Discharge Instructions Diet Discharge Diet: No restrictions Dressing / Incision Call your doctor if your incision/area has: Continuous Slow Oozing, Increased Pain/ Swelling, Increased Redness and Foul Smelling Discharge Call your doctor if you observe: Fever of 101 or Higher, Numbness or Tingling, Shortness of breath, Dizziness, Calf discomfort and Uncontrolled pain Follow Up Care Please Follow Up With: Johnathon Acevedo MD Test Results: Test results from this visit will be discussed in further detail at your follow- up appointment, if applicable. Discharge Plan Admission Primary Reason for Your Visit: laser stone Attending Provider: Johnathon Acevedo Primary Care Provider: Fredy Beth Discharge Orders/Prescriptions Prescriptions: New cephalexin 500 mg capsule 500 mg PO TID Qty: 15 0RF Continued albuterol sulfate 2.5 mg /3 mL (0.083 %) solution for nebulization 2.5 mg INHALATION .q 6H PRN (Reason: Wheezing Or Cough) aspirin [Adult Aspirin Regimen] 81 mg tablet,delayed release (DR/EC) 81 mg PO DAILY gabapentin 300 mg capsule 300 mg PO DAILY tizanidine 2 mg capsule 2 mg PO BID polyethylene glycol 3350 17 GM packet 17 gm PO DAILY PRN PRN (Reason: Constipation) albuterol sulfate 1 PUFF inhaler 2 puff inhalation Q4H PRN PRN (Reason: Asthma) baclofen 2,000 MCG/ML solution 150 - 160 mcg IT DAILY acetaminophen 500 MG tablet 500 mg PO Q4H PRN PRN (Reason: Pain) Qty: 20 0RF levetiracetam 1,000 MG tablet 1,000 mg PO BID fluoxetine 40 mg capsule 40 mg PO DAILY cetirizine [Zyrtec] 10 mg Tablet 10 mg PO DAILY Multivitamin 50 Plus Tablet 1 tab PO DAILY lisinopril 20 mg Tablet 20 mg PO DAILY Qty: 30 0RF Referrals / Follow Up: Johnathon Acevedo MD [Med Staff - Active Staff] - Fredy Beth MD [Primary Care Provider] - Disposition Disposition (needs filled in before D/C Order can be placed): Home, Self Care
[2023-02-15] MEDS: Cefazolin 2 GM in 0.9% Normal Saline 100 ML IV (12:50)
--- NOTE | 2023-02-15 13:23 | PCM.OPRPT ---
Report of Operation Date of Procedure: 02/15/23 Pre-Operative Diagnosis: Left ureteral and renal calculi status post stent Post-Operative Diagnosis: The same Surgery/Procedure Performed:: Cystoscopy left ureteroscopy laser lithotripsy of stone and left stent removal Description of Surgical Findings:: This is a patient who presents to the hospital for treatment for an obstructing ureter calculi. I discussed with the patient how the surgery would be performed and we reviewed the risks and benefits of the surgery. The risk and benefits include the risk of failure to remove the stone completely and that the patient may need multiple procedures. We discussed the risk of an infection, the risk of bleeding. We discussed the very rare risk of serious complicated injury to the ureter. The patient understands that if the stone is not able to be removed safely that we may abort the procedure and place a stent. After full discussion and all questions address with the patient the consent form was signed the side was marked appropriately and the patient was taken back to the operating room for the procedure. The patient was taken back to the operating room. After induction of anesthesia by the anesthesiology team the patient was placed in dorsolithotomy position. The genitals were prepped and draped in usual sterile fashion. I went into the bladder with a 21 Portuguese rigid cystourethroscope through the urethra. Upon entering the bladder I inspected the trigone the left and right ureteral orifice and the bladder itself. I then cannulated the Left ureteral orifice and advanced a 0.038 Glidewire up into the kidney. Then over the Glidewire I advanced a 5 Fr Ureteral catheter and performed a retrograde pyelogram with about 10cc of contrast, to delineate the anatomy and identify the stone location. After 3 minutes of dilating the ureter the balloon was backloaded off the 0.038 glidewire over the 0.038 guidewire I went in with the flexible 7.5fr ureteroscope. I was able to go inside with the 7.5Fr utereroscope and I pulled out the guidewire and then through the ureteroscope I engage the stones in the left kidney with laser lithotripsy using a 270miron laser fiber with energy setting of 6 Hertz and 0.6 J until the stone was lasered into tiny little pieces that should pass on their own. A retrograde pyelogram was performed with 10cc of contrast and no extravasation of contrast or perforation was identified, I then drained the patient's bladder and the cystoscope was removed and the patient was taken back to the recovery room in good position. The patient was given discharge instructions to call the office for instructions on when to come to the office Type of Anesthesia: General Drains: stent removed Admit VTE Documentation VTE Present on Admission: No VTE Mechan Device Prophylaxis: SCD's VTE Pharm Prophylaxis ordered?: No
[2023-02-15 15:07] VITALS: BP 119/64; BP 155/104; PULSE 72; RESP 16; TEMP 37.2; O2SAT 92
== END 2023-02-15 15:33 | disposition home or self-care (01) ==
LOC: SDC 11:22 → AC 11:23
PROVIDERS: PCP Family Medicine; Referring Provider Urology; Visit Provider Urology
PROC: (CPT 52353; principal; 2023-02-15 13:15)
DX: N20.0 Calculus of kidney (principal); I69.354 Hemiplegia and hemiparesis following cerebral infarction affecting left non-dominant side; G40.909 Epilepsy, unspecified, not intractable, without status epilepticus; I10 Essential (primary) hypertension; F17.290 Nicotine dependence, other tobacco product, uncomplicated; Z79.82 Long term (current) use of aspirin; Z79.899 Other long term (current) drug therapy
CPT/HCPCS: 52353; 76000; J7120; C1769; J2405

== ENCOUNTER 2024-05-14 20:01 | Observation (INO) | payer OTHER, SELFPAY ==
[2024-05-14] VITALS (14 sets, daily range): BP systolic 102–156; BP diastolic 72–124; PULSE 73–100; RESP 18–30; TEMP 36.4–37.2; O2SAT 94–100; BMI 24.9
[2024-05-14] MEDS: LORazepam 2 MG/ML Syringe IV ×2 (20:34→20:57)
--- NOTE | 2024-05-14 20:39 | EDS_ITS ---
HPI History of Present Illness Chief Complaint: Seizure Informant: patient, family and EMS Narrative Narrative: 58-year-old male presenting for an altered mental status possible seizure activity. Family states he has been like this for about 1 hour now at the time of my evaluation, started after they were walking out of a restaurant after eating dinner and he started looking to the left with his eyes and his head and less responsive, they look like he was about the collapse of family helped him down to the ground he did not fall or injure himself then, and now he is less responsive than he was before. They state he had a accidental fall earlier today, they did not witness it but he said that he tripped in their house and fell to his left shoulder. They took him to [facility] emergency department, he had x-rays that showed a left clavicle and proximal humerus fracture. He was placed in a sling. 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 He did not have head imaging because the patient did not think he had injured his head, according to family. With regards to history of seizures, he only had a seizure once in the past and it was after he had his stroke, 6 yrs ago. He did not have epilepsy prior to that. He has been taking levetiracetam 1000 mg twice daily since then. They state that he had aortic dissection that then resulted in a large ischemic stroke, which hemorrhaged, swelled, and he needed a craniectomy. The aorta was repaired. [facility] Medical History Wears glasses Depression Anxiety Rash Ambulates with cane Stroke/cerebrovascular accident History of edema History of stress test Cardiology follow-up encounter Hypertension history of Baclofen pump placement (~05/2018) Dysphagia Depression Vocal cord paralysis Dysphagia Seizure disorder (10/09/17) Asthma Hypertension Kidney stones Acute kidney injury Left hemiplegia Acute right MCA stroke (10/09/17) Aortic dissection (10/09/17) Home Medications ?Medication ?Instructions ?Recorded ?Last Taken ?Type albuterol sulfate 90 mcg/actuation 2 puff inhalation Q4H PRN PRN 06/02/18 09/18/18 History aerosol inhaler Asthma 0800 polyethylene glycol 3350 17 gram 17 gm PO DAILY PRN PRN Constipation 06/02/18 09/18/18 History oral powder packet 0800 albuterol sulfate 2.5 mg/3 mL 2.5 mg inhalation .q 6H PRN 08/04/18 09/18/18 History (0.083 %) solution for nebulization Wheezing Or Cough 0800 aspirin 81 mg tablet,delayed 81 mg PO DAILY blood thinner 08/04/18 01/25/23 History release (Adult Aspirin Regimen) baclofen 2,000 mcg/mL intrathecal 150 - 160 mcg IT DAILY pain 10/07/18 Unknown History solution acetaminophen 500 mg tablet 500 mg PO Q4H PRN PRN Pain #20 tabs 10/10/18 Unknown Rx levetiracetam 1,000 mg tablet 1,000 mg PO BID seizure 11/05/18 02/15/23 History gabapentin 300 mg capsule 300 mg PO DAILY cva 09/14/19 02/15/23 History tizanidine 2 mg capsule 2 mg PO BID pain 09/14/19 02/15/23 History cetirizine 10 mg tablet (Zyrtec) 10 mg PO DAILY allergies 01/22/23 Unknown History fluoxetine 40 mg capsule 40 mg PO DAILY depression 01/22/23 02/15/23 History gvaapnvupheh-bepdcqdu-cpzpaw 1 tab PO DAILY vitamins 01/22/23 Unknown History tablet (Multivitamin 50 Plus tablet) lisinopril 20 mg tablet 20 mg PO DAILY #30 tabs 01/24/23 02/15/23 Rx cephalexin 500 mg capsule 500 mg PO TID #15 caps 02/15/23 Unknown Rx Allergy/AdvReac Type Severity Reaction Status Date / Time cat dander Allergy Unknown Verified 05/14/24 20:05 grass pollen Allergy Itching Verified 05/14/24 20:05 Family History Father , Age 48 from CVA CVA (cerebral vascular accident) Grandfather Asthma Surgical History (Updated 02/11/23 @ 14:35 by Zena Ronquillo) Hx of cystoscopy History of aortic arch replacement (10/10/17) History of cranioplasty (02/28/18) Status post craniectomy (10/10/17) History of inguinal hernia repair s/p removal of heel spurs Status post wrist surgery (~2012) History of ankle surgery (~2012) H/O lithotripsy Social History Smoking Status: Current some day smoker tobacco type: cigars EXAM Physical Exam Const Vital Signs: 05/14/24 20:02 05/14/24 20:30 05/14/24 21:25 Temperature 97.6 F L Temperature Source Oral Pulse Rate 81 79 93 Respiratory Rate 18 30 H 21 H Blood Pressure 136/76 H 156/79 H 102/80 Blood Pressure Mean 96 104 87 Pulse Ox 94 97 98 Oxygen Delivery Method Room Air Nasal Cannula Nasal Cannula Oxygen Flow Rate (L/min) 2 2 Positive well nourished and well developed General Appearance ED: well developed and NAD HEENT Reports moist mucous membranes normocephalic and atraumatic Eyes PERRL Eyes Narrative: Forced deviation to the left with active horizontal nystagmus Neck full ROM and supple Resp normal respiratory effort and clear to auscultation bilaterally Cardio regular rate, regular rhythm and no murmurs GI non-tender and non-distended Auscultation: normoactive bowel sounds Palpation: soft Extremity normal to inspection General Extremety ED: Yes edema; Negative for pulses abnormal or tenderness General Extremity: edema bilateral lower extremity Details: trace; Negative for pulses abnormal Neuro Neuro Narrative: Eyes open, does not follow commands or respond to verbal or physical stimuli. His head is turned to the left and his eyes are enforced horizontal deviation to the left. Increased tone in all 4 extremities. No posturing. Skin no rashes or lesions noted and no wounds MDM MDM MDM Narrative Medical decision making narrative: I was asked to come see this patient right away after nursing evaluated him out of concern that he was actively seizing which I agree with. During my evaluation we gave him Ativan 2 mg out of concern for status epilepticus. His airway appears to be intact and he is breathing well. He does not have excessive secretions. He went to CT. I reviewed the images promptly, and on my interpretation there is no acute fracture or hemorrhage. Large area of right- sided encephalomalacia noted. Radiology in agreement I reported the report and I agree with it. He returns still having seizure activity so he was given Ativan and another 2 mg IV, in addition to levetiracetam 2000 mg, which includes his nighttime dose of 1000 g that he has not yet had. After the Ativan, he stopped seizing and gradually started coming around, trying to talk, but was very lethargic due to the Ativan likely. Labs are noted. Family states all of his cares at [facility] except for neurology which she sees at [facility]. I think he should be admitted for observation given how long he had this breakthrough seizure for, and the fact that he has not come back to normal and is still lethargic, likely in part at least due to the lorazepam. They are amenable to keeping them locally and following up with his neurologist afterwards as soon as able. Lab Data Attestation: I reviewed the patient's lab results. Labs: Laboratory Results - last 24 hr 05/14/24 20:10 WBC 8.5 RBC 4.21 L Hgb 14.2 Hct 41.3 MCV 98.1 H MCH 33.7 H MCHC 34.4 RDW Std Deviation 42.8 RDW Coeff of Bibiana 11.9 Plt Count 184 MPV 10.2 Immature Gran % (Auto) 0.400 Neut % (Auto) 76.3 H Lymph % (Auto) 13.3 L Butler % (Auto) 8.0 Eos % (Auto) 1.5 Baso % (Auto) 0.5 Absolute Neuts (auto) 6.5 Absolute Lymphs (auto) 1.12 Nucleated RBC % 0 Sodium 140 Potassium 4.0 Chloride 108 H Carbon Dioxide 27.0 Anion Gap 6 BUN 26 H Creatinine 0.79 Estim Creat Clear Calc 110.51 Est GFR (MDRD) Af Amer 129 Est GFR (MDRD) Non-Af 106 BUN/Creatinine Ratio 32.9 H Glucose 98 Calcium 8.8 Radiography Diagnostic Testing: Clinical Impression(s) from Imaging Studies Brain CT 05/14/24 20:54 IMPRESSION: Encephalomalacia in the right cerebral hemisphere likely due to old infarct or prior trauma. No evidence for acute intracranial bleed Electronically Signed: Dominick Clemente MD at 21:32 EDT , Rhythm Strip Rhythm Strip: Sinus Rhythm Rate: 80 Ectopy: None EKG Initial EKG: Attestation: I personally reviewed and interpreted this EKG as follows: Management Discussion w/another healthcare provider: Hospitalist Discharge Plan Triage Chief Complaint: Seizure ED Provider: Jose A Esparza Dx/Rx/DC Orders Clinical Impression: Status epilepticus, Seizure disorder, Breakthrough seizure Prescriptions: No Action albuterol sulfate 2.5 mg /3 mL (0.083 %) solution for nebulization 2.5 mg INHALATION .q 6H PRN (Reason: Wheezing Or Cough) aspirin [Adult Aspirin Regimen] 81 mg tablet,delayed release (DR/EC) 81 mg PO DAILY gabapentin 300 mg capsule 300 mg PO DAILY tizanidine 2 mg capsule 2 mg PO BID polyethylene glycol 3350 17 GM packet 17 gm PO DAILY PRN PRN (Reason: Constipation) albuterol sulfate 1 PUFF inhaler 2 puff inhalation Q4H PRN PRN (Reason: Asthma) baclofen 2,000 MCG/ML solution 150 - 160 mcg IT DAILY acetaminophen 500 MG tablet 500 mg PO Q4H PRN PRN (Reason: Pain) Qty: 20 0RF levetiracetam 1,000 MG tablet 1,000 mg PO BID fluoxetine 40 mg capsule 40 mg PO DAILY cetirizine [Zyrtec] 10 mg Tablet 10 mg PO DAILY Multivitamin 50 Plus Tablet 1 tab PO DAILY lisinopril 20 mg Tablet 20 mg PO DAILY Qty: 30 0RF cephalexin 500 mg capsule 500 mg PO TID Qty: 15 0RF Primary Care Provider: Fredy Beth Referrals: Fredy Beth MD [Primary Care Provider] - Print Language: Albanian Disposition Disposition: Acute Care Hospital [facility]
--- NOTE | 2024-05-14 20:44 | EKG12_ITS ---
Test Reason : SEIZURE Blood Pressure : / mmHG Vent. Rate : 090 BPM Atrial Rate : 090 BPM P-R Int : 210 ms QRS Dur : 098 ms QT Int : 396 ms P-R-T Axes : 076 005 034 degrees QTc Int : 484 ms Sinus rhythm with 1st degree A-V block with Premature supraventricular complexes Prolonged QT Abnormal ECG Confirmed by Boubacar Araya ([id number]), city editor CARL PABLO ([id number]) on 05/15/2024 1:40:37 PM Referred By: Confirmed By:Boubacar Araya
--- NOTE | 2024-05-14 20:54 | CT_ITS ---
STUDY: CT BRAIN WITHOUT CONTRAST REASON FOR EXAM: Male, 58 years old. seizure, fall RADIATION DOSAGE (If Supplied By Facility): CTDIvol = ( 44.99 ) mGy, DLP = ( 880.47 ) mGycm TECHNIQUE: Transaxial CT imaging of the brain was performed without administration of intravenous contrast material. Individualized dose optimization techniques were used for this CT. COMPARISON: No relevant priors. FINDINGS: Normal soft tissue structures. Postop change status post right frontoparietal craniotomy. There is diffuse encephalomalacia in the right temporal posterior frontal and parietal lobes possibly due to prior infarct or surgery. . Normal basal ganglia and thalami. Normal brainstem. Normal cerebellum. There is no intracranial hemorrhage. There are no findings of an acute ischemic infarction. Normal visualized paranasal sinuses. CT/Brain/Head without Contrast IMPRESSION: Encephalomalacia in the right cerebral hemisphere likely due to old infarct or prior trauma. No evidence for acute intracranial bleed Electronically Signed: Dominick Clemente MD at 21:32 EDT ,
[2024-05-14 20:55] LABS: Absolute Lymphocyte Count 1.12 X10^3/uL (0.83-4.51); Absolute Neutrophil Count 6.5 X10^3/uL (2.0-7.7); Basophil# 0.04 X10^3/uL; Basophil% 0.5 % (0-1); Eosinophil# 0.13 X10^3/uL; Eosinophils% 1.5 % (0-5); Hematocrit 41.3 % (40-54); Hemoglobin 14.2 g/dL (13.0-16.5); Lymphocyte # 1.12 X10^3/ul (0.83-4.51); Lymphocyte % 13.3 % (19-41); Mean Corp Hgb Conc 34.4 g/dL (32-36); Mean Corpuscular Hgb 33.7 pg (27.0-32.0); Mean Corpuscular Volume 98.1 fL (80-94); Mean Platelet Vol. 10.2 fl (6.2-12.0); Monocyte# 0.68 X10^3/uL; NRBC Flagged by Analyzer 0 % (0-5); Neutrophil # 6.45 X10^3/uL (2.7-7.7); Neutrophil % 76.3 % (47-70); Platelet Count 184 K/mm3 (150-450); RBC Distribution Width CV 11.9 % (11.6-14.6); RBC Distribution Width SD 42.8 fl (35.1-43.9); Red Blood Count 4.21 M/mm3 (4.6-6.2); White Blood Count 8.5 K/mm3 (4.4-11.0)
[2024-05-14 21:07] LABS: Anion Gap 6 (5-15); BUN 26 mg/dL (7-18); BUN/Creat Ratio 32.9 RATIO (10-20); Calcium,Total 8.8 mg/dL (8.5-10.1); Chloride 108 mmol/L (98-107); Creatinine, Serum 0.79 mg/dL (0.70-1.30); EST Glomerular Filtration Rate 106 mL/min (>60); Est Glom Filt Rate - Afr Amer 129 mL/min (>60); Estimated Creatinine Clearance 110.51 ml/min; Glucose 98 mg/dL (74-106); Sodium Level 140 mmol/L (136-145)
[2024-05-14] MEDS: levETIRAcetam IV 2,000 MG in 0.9% Normal Saline (250mL Bag) 230 ML 1000 MG IV (21:38)
--- NOTE | 2024-05-14 22:11 | HP.PCM.HOS_ITS ---
HPI - General General Date of Admission: 05/14/24 Date of Service: 05/14/24 Chief Complaint: Seizure activity. HPI Narrative The patient is a 58 y/o M w/ PMHx: Anxiety and Depression, Hx R MCA CVA 2017 with chronic dysphagia and left-sided hemiparesis (per family report/patient report patient with significant aortic dissection that eventually resulted in a large ischemic stroke eventually converting to a hemorrhagic prompting craniotomy), Hx of craniotomy 2018, Asthma, Seizure disorder, Chronic pain syndrome w/ history of baclofen pump, Hx aortic dissection with aortic arch replacement 09/2017, HTN, HLD, Tobacco cigar use intermittently who presents to the [facility] ED on 05/14/24 with history of altered mental status and concern for seizure activity with family reporting that patient had been like that for at least an hour prior to ED arrival which started after they were walking out of a restaurant after eating dinner with patient starting to look toward the left with decreased responsiveness with appearance of potential collapsed with family guiding him to the ground with history of reported accidental fall earlier in the day which was unfortunately unwitnessed but patient had reportedly tripped in the house and fell onto his left shoulder with [place] ED evaluation with plain films with a left clavicle and proximal humeral fracture reportedly placed in a sling with unfortunately a stroke affecting that left side with left-sided hemiparesis since then with no reported head trauma with last history of seizure after his stroke remotely 6 years prior on Keppra 1000 mg twice daily since then prompting eventual ED evaluation to be cautious. Workup in the ED included T97.6, heart rate 81, BP 136/76, respiratory rate 18, 94% on room air initially with most recent repeat vital signs heart rate 93, BP 102/80, respiratory rate 21, 98% on 2 L nasal cannula, CBC with WBC 8.5, [place] 14.2, platelet 184 without marked shift, BMP with chloride 108, BUN/creat 26/0.79 otherwise unremarkable, CT of the brain with encephalomalacia in the right cerebral hemisphere likely due to an old infarct or prior trauma with no evidence of any acute intracranial bleed or acute intracranial finding, EKG with SR with 1AVB without acute evidence of ischemia. In the ED patient ministered Keppra 2000 mg IV x 1 load, Ativan 2 mg IV x 2. [facility] Medical History Wears glasses Depression Anxiety Rash Ambulates with cane Stroke/cerebrovascular accident History of edema History of stress test Cardiology follow-up encounter Hypertension history of Baclofen pump placement (~05/2018) Dysphagia Depression Vocal cord paralysis Dysphagia Seizure disorder (10/09/17) Asthma Hypertension Kidney stones Acute kidney injury Left hemiplegia Acute right MCA stroke (10/09/17) Aortic dissection (10/09/17) Home Medications ?Medication ?Instructions ?Recorded ?Last Taken ?Type albuterol sulfate 90 mcg/actuation 2 puff inhalation Q4H PRN PRN 06/02/18 09/18/18 History aerosol inhaler Asthma 0800 polyethylene glycol 3350 17 gram 17 gm PO DAILY PRN PRN Constipation 06/02/18 09/18/18 History oral powder packet 0800 albuterol sulfate 2.5 mg/3 mL 2.5 mg inhalation .q 6H PRN 08/04/18 09/18/18 History (0.083 %) solution for nebulization Wheezing Or Cough 0800 baclofen 2,000 mcg/mL intrathecal 150 - 160 mcg IT DAILY pain 10/07/18 Unknown History solution acetaminophen 500 mg tablet 500 mg PO Q4H PRN PRN Pain #20 tabs 10/10/18 Unknown Rx levetiracetam 1,000 mg tablet 1,000 mg PO BID seizure 11/05/18 02/15/23 History gabapentin 300 mg capsule 300 mg PO DAILY cva 09/14/19 02/15/23 History tizanidine 2 mg capsule 2 mg PO BID pain 09/14/19 02/15/23 History cetirizine 10 mg tablet (Zyrtec) 10 mg PO DAILY allergies 01/22/23 Unknown History fluoxetine 40 mg capsule 40 mg PO DAILY depression 01/22/23 02/15/23 History iswrgfztxbzm-ommfjsaz-vrgdtt 1 tab PO DAILY vitamins 01/22/23 Unknown History tablet (Multivitamin 50 Plus tablet) lisinopril 20 mg tablet 20 mg PO DAILY #30 tabs 01/24/23 02/15/23 Rx fluticasone propionate 110 2 puff inhalation PRN sob 05/14/24 Unknown History mcg/actuation HFA aerosol inhaler Allergy/AdvReac Type Severity Reaction Status Date / Time cat dander Allergy Unknown Verified 05/14/24 20:05 grass pollen Allergy Itching Verified 05/14/24 20:05 Family History Father , Age 48 from CVA CVA (cerebral vascular accident) Grandfather Asthma Mother Cancer Surgical History Hx of cystoscopy History of aortic arch replacement (10/10/17) History of cranioplasty (02/28/18) Status post craniectomy (10/10/17) History of inguinal hernia repair s/p removal of heel spurs Status post wrist surgery (~2012) History of ankle surgery (~2012) H/O lithotripsy Social History (Updated 05/14/24 @ 23:[address] Tonya Reynolds MD) household members: spouse Smoking Status: Current some day smoker tobacco type: cigars alcohol intake: current alcohol intake frequency: holidays/special occasions only substance use type: does not use ROS ROS Narrative Admission Review of Systems: CONSTITUTIONAL: No weight loss, fever, chills, + weakness or fatigue. HEENT: Eyes: No visual loss, blurred vision, double vision or yellow sclerae. Ears, Nose, Throat: No hearing loss, sneezing, congestion, runny nose or sore throat. SKIN: No rash or itching, lesions, wounds. CARDIOVASCULAR: No chest pain, chest pressure or chest discomfort, palpitations, edema, orthopnea, syncopal events. RESPIRATORY: No shortness of breath, cough or sputum, wheezing, hemoptysis. GASTROINTESTINAL: No anorexia, nausea, vomiting or diarrhea, abdominal pain, melena, BRBPR. GENITOURINARY: No dysuria, frequency, urgency or retention. NEUROLOGICAL: + Breakthrough prolonged seizure, status w/ postictal phase, CVA history with L sided hemiparesis/dysphagia. No headache, dizziness, syncope, change in bowel or bladder control, seizure. MUSCULOSKELETAL: + muscle, back pain, joint pain or stiffness. HEMATOLOGIC: No anemia, bleeding or bruising. LYMPHATICS: No enlarged nodes. No history of splenectomy. PSYCHIATRIC: + History of anxiety and depression. ENDOCRINOLOGIC: No reports of sweating, cold or heat intolerance. No polyuria or polydipsia. ALLERGIES: + Hx Asthma with allergic rhinitis. Vital Signs Vital Signs Vital Signs: 05/14/24 20:02 05/14/24 20:30 05/14/24 21:25 Temperature 97.6 F L Temperature Source Oral Pulse Rate 81 79 93 Respiratory Rate 18 30 H 21 H Blood Pressure 136/76 H 156/79 H 102/80 Blood Pressure Mean 96 104 87 Pulse Ox 94 97 98 Oxygen Delivery Method Room Air Nasal Cannula Nasal Cannula Oxygen Flow Rate (L/min) 2 2 Weight Weight: 183 lb 10.321 oz Body Mass Index (BMI) 24.9 Physical Exam Narrative Physical Examination: General: Patient will awaken and will answer some questions but is very fatigued status post recent aggressive Ativan administration for seizure activity, patient and daughter report that he is more alert and coming around to his baseline, oriented to self, place and recent events, cooperative, laying in the ED bed. Skin: Normal color, normal turgor, no icterus, no cyanosis except for occasional staged ecchymoses, abrasion. HEENT: AT/NC, EOMI, PERRLA, dry MM, no carotid bruits or JVD noted. Lungs: Mildly diminished, greater bases, appropriate effort, no rales, ronchi or wheezing. Heart: Regular rate and rhythm; no gallop, rub audible. Abdomen: Soft, NTTP, ND, mildly hyperactive BS, no appreciated HSM. Extremities: No cyanosis, no clubbing, evidence of contractures with left-sided hemiparesis with previous stroke, left upper extremity in sling secondary to humeral fracture and clavicle fracture status post fall, pulse intact, extremity warm to touch. Neurological: Patient will awaken and will answer some questions but is very fatigued status post recent aggressive Ativan administration for seizure activity, patient and daughter report that he is more alert and coming around to his baseline, oriented to self, place and recent events, cooperative, laying in the ED bed, cognitive function improving, still not baseline intact; pupils equally reactive to light and accommodation, cranial nerves grossly normal but still not baseline primarily likely secondary to recent sedated medication but improving, left-sided chronic hemiplegia, strength severely globally decreased especially given recent seizures. Psychiatric: Affect appears flat, fatigued, no acute evidence of depressive or anxiety feelings but does have underlying history. Results Lab / Micro Data 05/14/24 20:10 05/14/24 20:10 Labs: Laboratory Results - last 24 hr 05/14/24 20:10: WBC 8.5, RBC 4.21 L, Hgb 14.2, Hct 41.3, MCV 98.1 H, MCH 33.7 H, MCHC 34.4, RDW Std Deviation 42.8, RDW Coeff of Bibiana 11.9, Plt Count 184, MPV 10.2, Immature Gran % (Auto) 0.400, Neut % (Auto) 76.3 H, Lymph % (Auto) 13.3 L, [place] % (Auto) 8.0, Eos % (Auto) 1.5, Baso % (Auto) 0.5, Absolute Neuts (auto) 6.5, Absolute Lymphs (auto) 1.12, Nucleated RBC % 0, Sodium 140, Potassium 4.0, Chloride 108 H, Carbon Dioxide 27.0, Anion Gap 6, BUN 26 H, Creatinine 0.79, Estim Creat Clear Calc 110.51, Est GFR (MDRD) Af Amer 129, Est GFR (MDRD) Non-Af 106, BUN/Creatinine Ratio 32.9 H, Glucose 98, Calcium 8.8 Rhythm Strip Rhythm Strip: Sinus Rhythm Rate: 80 Ectopy: None Imaging Radiology Impression Brain CT 05/14/24 20:54 IMPRESSION: Encephalomalacia in the right cerebral hemisphere likely due to old infarct or prior trauma. No evidence for acute intracranial bleed Electronically Signed: Dominick Clemente MD at 21:32 EDT Reading Location ID and State: [address] [place] [address] Tel , Service support , Assessment & Plan Assessment/Plan (1) Breakthrough seizure: PLAN: Plan The patient is a 58 y/o M w/ PMHx: Anxiety and Depression, Hx R MCA CVA 2018 with chronic dysphagia and left-sided hemiparesis (per family report/patient report patient with significant aortic dissection that eventually resulted in a large ischemic stroke eventually converting to a hemorrhagic prompting craniotomy), Hx of craniotomy 2018, Asthma, Seizure disorder, Chronic pain syndrome w/ history of baclofen pump, Hx aortic dissection with aortic arch replacement 09/2017, HTN, HLD, Tobacco cigar use intermittently who presents to the [facility] ED on 05/14/24 with history of altered mental status and concern for seizure activity with family reporting that patient had been like that for at least an hour prior to ED arrival which started after they were walking out of a restaurant after eating dinner with patient starting to look toward the left with decreased responsiveness with appearance of potential collapsed with family guiding him to the ground with history of reported accidental fall earlier in the day which was unfortunately unwitnessed but patient had reportedly tripped in the house and fell onto his left shoulder with [place] ED evaluation with plain films with a left clavicle and proximal humeral fracture reportedly placed in a sling with unfortunately a stroke affecting that left side with left-sided hemiparesis since then with no reported head trauma. #1. Breakthrough seizure with Seizure disorder with following extensive previous stroke, period of status epilepticus now resolved: Seizure witnessed with postictal state. Improved mental status in the emergency room. CT head without acute intracranial pathology. Will admit to PCU, maintain on telemetry in PCU on seizure precautions, obtain EEG, obtain brain MRI, obtain TSH, obtain mag, obtain UTox. Keppra loaded in the ED thus will continue home regimen for now pending Neurology consultation. PRN ativan IV for seizure activity. NPO until cleared per RN swallow. Did request that notify daytime hospitalist/nursing staff if his primarily neurologist wants something specific as far as medication regimen given he has already been messaged and awaiting response. #2. Recent Fall w/ LUE left clavicle and proximal humeral fracture: Will continue nonweightbearing status although this is on the side of hemiplegia, will have patient continue sling placement, icing cautiously and plan for continued follow-up at [facility] with Dr. Gianfranco Conner as previously arranged at his recent ED evaluation. #3. Hx R MCA CVA with history of hemorrhagic conversion requiring craniotomy: Patient with significant stroke history following aortic dissection, occurred in 2018 with dysphagia and left-sided hemiparesis ongoing, will continue patient aspirin, hypertensive regimen, not on statin therapy. #4. Chronic asthma: Not on chronic regimen, will have as needed albuterol, encourage head of bed and I-S. #5. History significant aortic dissection: Status post repair 10/10/[address] Arpit Mckenzie @ [facility] w/ #26 stent graft Frozen Elephant Trunk procedure, complicated by severe MCA stroke with left-sided hemiplegia unfortunately converting to a hemorrhagic stroke requiring craniotomy, stable, occurred in 2018. #6. Chronic pain syndrome: Verified with that patient baclofen pump is full with next fill 06/05/2024 as certainly this could be a reason for withdrawal seizures and she assures the service that the pump is full, will continue. Encourage follow-up with pain management as previously arranged. #7. Hypertension: Continue home regimen including lisinopril with hold parameters as needed, PRN hydralazine. #8. Hyperlipidemia: Per current list does not appear to be on regimen with no allergy listed, will defer to outpatient as potentially associated with side effects. #9. Anxiety and depression: We will continue patient home fluoxetine home regimen, encourage continued outpatient follow-up and counseling as previously arranged. #10. Tobacco Cigar Abuse: Patient with only intermittent occasional cigar usage. Given extensive history as noted cessation is advised. #11. DVT prophylaxis: Will maintain on SCDs only given recent trauma but if stay is prolonged then would necessitate consideration. #12. CODE status: Patient HCPOA is his who is present and living will is currently in place. Discussed CODE status at length including difference between FULL code, DNR-CCA and DNR-CC status. Following discussions about the differences in these status, requested DNR-CCA, no intubation status. Advanced Care Planning Face to Face Time: 16 minutes. Charges/Coding Visit Charges Inpatient E&M: 28441 Init Hosp L3 Procedures Hospitalists Procedures: 13999 Advncd Care Plan 30 Min
[2024-05-15] VITALS (8 sets, daily range): BP systolic 122–126; BP diastolic 79–82; PULSE 68–84; RESP 17–18; TEMP 36.3–36.9; O2SAT 90–98; BMI 22.8
--- NOTE | 2024-05-15 01:10 | RAD_ITS ---
INDICATION: Irregular appearance, shortened, rotated EXAMINATION/TECHNIQUE: X-RAY - XR Hip Unilateral with Pelvis when performed; 2-3 Views COMPARISON: Prior study dated: CT from 04/10/2018 FINDINGS: There is a left hip resurfacing arthroplasty. Unchanged alignment compared to prior imaging with somewhat superior positioning of the acetabular cup. No fracture or dislocation. Moderate degenerative changes of the right hip with joint space narrowing and sclerosis. Radiopaque pump overlying the right lower abdomen. RAD/Hip Min 2 Views (Portable) IMPRESSION: No acute fracture seen. Unchanged alignment of the left hip resurfacing arthroplasty. Electronically Signed: Jc Farias MD at 2:10 EDT ,
[2024-05-15] MEDS: 0.9% Normal Saline (1000mL) 1,000 ML 100 ML IV (01:42)
[2024-05-15] MEDS: Nystatin Ointment 1 APPLIC TOPICAL ×2 (02:20→06:20)
[2024-05-15 06:19] LABS: Absolute Neutrophil Count 6.5 X10^3/uL (2.0-7.7); Basophil# 0.02 X10^3/uL; Basophil% 0.2 % (0-1); Eosinophil# 0.04 X10^3/uL; Eosinophils% 0.5 % (0-5); Hematocrit 38.3 % (40-54); Mean Corp Hgb Conc 33.9 g/dL (32-36); Mean Corpuscular Hgb 33.9 pg (27.0-32.0); Mean Platelet Vol. 9.5 fl (6.2-12.0); Monocyte% 8.5 % (0-10); NRBC Flagged by Analyzer 0 % (0-5); Neutrophil # 6.49 X10^3/uL (2.7-7.7); Neutrophil % 79.3 % (47-70); Platelet Count 169 K/mm3 (150-450); RBC Distribution Width CV 11.9 % (11.6-14.6); RBC Distribution Width SD 43.1 fl (35.1-43.9); Red Blood Count 3.83 M/mm3 (4.6-6.2); White Blood Count 8.2 K/mm3 (4.4-11.0)
[2024-05-15] MEDS: Nystatin Powder 15gm Bottle 1 APPLIC TOPICAL (06:19)
[2024-05-15 07:24] LABS: ALB/GLOB Ratio 1.1 RATIO (0.9-2.4); AST(SGOT) 16 U/L (15-37); Alanine Aminotransfer ALT/SGPT 20 U/L (16-61); Albumin, Serum 3.3 g/dL (3.2-5.0); Alkaline Phosphatase 80 U/L (45-117); Anion Gap 5 (5-15); BUN 22 mg/dL (7-18); BUN/Creat Ratio 33.3 RATIO (10-20); Calcium,Total 8.5 mg/dL (8.5-10.1); Chloride 110 mmol/L (98-107); Creatinine, Serum 0.66 mg/dL (0.70-1.30); EST Glomerular Filtration Rate 131 mL/min (>60); Est Glom Filt Rate - Afr Amer 158 mL/min (>60); Estimated Creatinine Clearance 130.23 ml/min; Glucose 99 mg/dL (74-106); Potassium 3.9 mmol/L (3.5-5.1); Protein, Total 6.3 g/dL (6.4-8.2); Sodium Level 141 mmol/L (136-145); Thyroid Stim Hormone (TSH) 0.615 uIU/mL (0.358-3.740)
--- NOTE | 2024-05-15 08:27 | PCM.PN.HOSP ---
Reason for Visit Reason for Visit: Diagnoses Epilepsy, unspecified, intractable, without status epilepticus (05/14/24) Subjective Subjective Patient is a 58-year-old gentleman with history of seizure disorder admitted with breakthrough seizure Objective Data Objective Data Vital Signs: Vital Signs Temp Pulse Resp BP Pulse Ox O2 Del Method O2 Flow Rate 97.4 F L 68 17 122/81 H 97 Nasal Cannula 2 05/15/24 06:24 05/15/24 06:24 05/15/24 06:24 05/15/24 06:24 05/15/24 06:24 05/15/24 07:40 05/15/24 07:40 Oxygen Flow Rate (L/min) 2 Oxygen Delivery Method Nasal Cannula Weight: 76.4 kg Body Mass Index (BMI) 22.8 Intake & Output: Intake and Output for Last 24 Hours 05/13/24 05/14/24 05/15/24 23:59 23:59 23:59 Intake Total 250 / 250 120 / 120 Output Total 350 / 350 Balance 250 / 250 -230 / -230 Lab / Micro Data 05/15/24 05:16 05/15/24 05:16 Labs: Laboratory Results - last 24 hr 05/14/24 20:10: WBC 8.5, RBC 4.21 L, Hgb 14.2, Hct 41.3, MCV 98.1 H, MCH 33.7 H, MCHC 34.4, RDW Std Deviation 42.8, RDW Coeff of Bib[place] 11.9, Plt Count 184, MPV 10.2, Immature Gran % (Auto) 0.400, Neut % (Auto) 76.3 H, Lymph % (Auto) 13.3 L, [place]flower % (Auto) 8.0, Eos % (Auto) 1.5, Baso % (Auto) 0.5, Absolute Neuts (auto) 6.5, Absolute Lymphs (auto) 1.12, Nucleated RBC % 0, Sodium 140, Potassium 4.0, Chloride 108 H, Carbon Dioxide 27.0, Anion Gap 6, BUN 26 H, Creatinine 0.79, Estim Creat Clear Calc 110.51, Est GFR (MDRD) Af Amer 129, Est GFR (MDRD) Non-Af 106, BUN/Creatinine Ratio 32.9 H, Glucose 98, Calcium 8.8, Magnesium 2.0 05/15/24 05:16: WBC 8.2, RBC 3.83 L, Hgb 13.0, Hct 38.3 L, MCV 100.0 H, MCH 33.9 H, MCHC 33.9, RDW Std Deviation 43.1, RDW Coeff of [place] 11.9, Plt Count 169, MPV 9.5, Immature Gran % (Auto) 0.500, Neut % (Auto) 79.3 H, Lymph % (Auto) 11.0 L, Sunflower % (Auto) 8.5, Eos % (Auto) 0.5, Baso % (Auto) 0.2, Absolute Neuts (auto) 6.5, Absolute Lymphs (auto) 0.90, Nucleated RBC % 0, Sodium 141, Potassium 3.9, Chloride 110 H, Carbon Dioxide 26.0, Anion Gap 5, BUN 22 H, Creatinine 0.66 L, Estim Creat Clear Calc 130.23, Est GFR (MDRD) Af Amer 158, Est GFR (MDRD) Non-Af 131, BUN/Creatinine Ratio 33.3 H, Glucose 99, Calcium 8.5, Total Bilirubin 2.00 H, AST 16, ALT 20, Alkaline Phosphatase 80, Total Protein 6.3 L, Albumin 3.3, Globulin 3.0, Albumin/Globulin Ratio 1.1, TSH 0.615 Radiography Diagnostic Testing: Radiology Impression Brain CT 05/14/24 20:54 IMPRESSION: Encephalomalacia in the right cerebral hemisphere likely due to old infarct or prior trauma. No evidence for acute intracranial bleed Electronically Signed: Dominick Clemente MD at 21:32 EDT , Hip X-Ray 05/15/24 01:10 IMPRESSION: No acute fracture seen. Unchanged alignment of the left hip resurfacing arthroplasty. Electronically Signed: Jc Farias MD at 2:10 EDT , Rhythm Strip Rhythm Strip: Sinus Rhythm Rate: 80 Ectopy: None Physical Exam Narrative GENERAL: Sleepy but easily arousable HEENT: Atraumatic; normocephalic EYES; Anicteric, Normal Conjunctiva NECK; supple, normal thyroid, RESPIRATORY: Diminished to auscultation CARDIOVASCULAR: Regular S1 S2, GI: soft, normoactive bowel sounds, : No Renal angle tenderness; EXTREMITIES: No edema, no clubbing, MUSCULOSKELETAL: Left upper extremity immobilized NEURO: Awake; left-sided hemiparesis SKIN: No Rash PSYCH; Flat affect Assessment & Plan Assessment/Plan (1) Breakthrough seizure: PLAN: Plan Patient is a 58-year-old gentleman with history of seizure disorder admitted with breakthrough seizure 1. Seizure disorder with breakthrough seizure ? Patient admitted to a monitored bed, instituted seizure precautions. Patient was loaded with Keppra and consult placed to [facility] teleneurology 2. Recent fall with left clavicle and proximal humeral fracture ? Patient currently being managed with immobilization and pain meds 3. History of right MCA CVA with hemorrhagic conversion ? Patient managed with craniectomy. Patient has residual chronic dysphagia and left-sided hemiparesis 4. History of aortic dissection ? Status post repair on 10/11/2027 5. Mild intermittent asthma ? Not in exacerbation aerosol treatment as needed 7. Chronic pain syndrome ? Patient has a pain pump. Patient pain pump apparently has to be drained before any MRI and later refilled. With patient seizure not being new onset MRI ordered on admission was discontinued pending eval by teleneuro 8. Hypertension ? Blood pressure controlled, home medications continued with dose adjustment as needed 9. Depression with anxiety ? Patient is on fluoxetine 10. DVT prophylaxis bilateral SCDs Time spent in the patient's overall evaluation,decision-making process, review of diagnostic data, adjustment of management, discussion with other providers, nursing nursing and ancillary staff involved in patient's care documentation, 36 minutes Charges/Coding Visit Charges Inpatient E&M: 71120 Subs Hosp L2
[2024-05-15] MEDS: Loratadine 10 MG Tablet PO (10:29)
[2024-05-15] MEDS: tiZANidine HCl 2 MG Tablet PO (10:29)
[2024-05-15] MEDS: Lisinopril 20 MG Tablet PO (10:29)
[2024-05-15] MEDS: Aspirin E.C. 81 MG Tablet PO (10:30)
[2024-05-15] MEDS: BACLOFEN MC (10:30)
[2024-05-15] MEDS: levETIRAcetam 1,000 MG Tablet 1000 MG PO (10:30)
[2024-05-15] MEDS: Fluoxetine HCl 40 MG CAPSULE PO (10:30)
[2024-05-15] MEDS: Gabapentin 300 MG Capsule PO (10:30)
--- NOTE | 2024-05-15 11:14 | CON.PCM.NE_ITS ---
Assessment and Plan: Neuro Assessment/Plan JOSE THOMPSON is a 58 M with a past medical history of R MCA stroke and seizures, being evaluated by Teleneurology for breakthrough seizure. No provoking factors on laboratory review, no infections apparent. No missed medication doses. Diagnosis: Unprovoked Breakthrough seizure Plan: - Increase Keppra to 1250 mg BID - rEEG completed - -report to follow - Ok to discharge from neurology standpoint I personally attended this patient and spent a total time of 31 minutes evaluating this patient including clinical assessment, review of chart, medical history imaging, and determining appropriate treatment and workup. 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 He presents with breakthrough seizure. reports yesterday was coming out of a restaurant when his head turned to the left followed by whole body shaking. Lasted about 1-2 minutes and was followed by post-ictal confusion. He has not had a seizures for 7 years. On Keppra 1000 mg at home, no missed doses. No recent illness. Denies fevers, chills, cough, nausea, vomiting. He now feels back to baseline and would like to go home. [facility] Medical History Wears glasses Depression Anxiety Rash Ambulates with cane Stroke/cerebrovascular accident History of edema History of stress test Cardiology follow-up encounter Hypertension history of Baclofen pump placement (~05/2018) Dysphagia Depression Vocal cord paralysis Dysphagia Seizure disorder (10/09/17) Asthma Hypertension Kidney stones Acute kidney injury Left hemiplegia Acute right MCA stroke (10/09/17) Aortic dissection (10/09/17) Home Medications ?Medication ?Instructions ?Recorded ?Last Taken ?Type albuterol sulfate 90 mcg/actuation 2 puff inhalation Q4H PRN PRN 06/02/18 09/18/18 History aerosol inhaler Asthma 0800 polyethylene glycol 3350 17 gram 17 gm PO DAILY PRN PRN Constipation 06/02/18 09/18/18 History oral powder packet 0800 albuterol sulfate 2.5 mg/3 mL 2.5 mg inhalation .q 6H PRN 08/04/18 09/18/18 History (0.083 %) solution for nebulization Wheezing Or Cough 0800 baclofen 2,000 mcg/mL intrathecal 150 - 160 mcg IT DAILY pain 10/07/18 Unknown History solution acetaminophen 500 mg tablet 500 mg PO Q4H PRN PRN Pain #20 tabs 10/10/18 Unknown Rx levetiracetam 1,000 mg tablet 1,000 mg PO BID seizure 11/05/18 02/15/23 History gabapentin 300 mg capsule 300 mg PO DAILY cva 09/14/19 02/15/23 History tizanidine 2 mg capsule 2 mg PO BID pain 09/14/19 02/15/23 History cetirizine 10 mg tablet (Zyrtec) 10 mg PO DAILY allergies 01/22/23 Unknown History fluoxetine 40 mg capsule 40 mg PO DAILY depression 01/22/23 02/15/23 History eqpwpioxracf-xtjuhnqu-flqblq 1 tab PO DAILY vitamins 01/22/23 Unknown History tablet (Multivitamin 50 Plus tablet) lisinopril 20 mg tablet 20 mg PO DAILY #30 tabs 01/24/23 02/15/23 Rx fluticasone propionate 110 2 puff inhalation PRN sob 05/14/24 Unknown History mcg/actuation HFA aerosol inhaler Allergy/AdvReac Type Severity Reaction Status Date / Time cat dander Allergy Unknown Verified 05/14/24 20:05 grass pollen Allergy Itching Verified 05/14/24 20:05 Family History Father , Age 48 from CVA CVA (cerebral vascular accident) Grandfather Asthma Mother Cancer Surgical History Hx of cystoscopy History of aortic arch replacement (10/10/17) History of cranioplasty (02/28/18) Status post craniectomy (10/10/17) History of inguinal hernia repair s/p removal of heel spurs Status post wrist surgery (~2012) History of ankle surgery (~2012) H/O lithotripsy Social History household members: spouse Smoking Status: Current some day smoker tobacco type: cigars alcohol intake: current alcohol intake frequency: holidays/special occasions only substance use type: does not use Vital Signs Vital Signs Vital Signs: 05/14/24 20:02 05/14/24 20:27 05/14/24 20:30 Temperature 97.6 F L Temperature Source Oral Pulse Rate 81 73 79 Respiratory Rate 18 30 H 30 H Respiratory Effort Respiratory Depth Respiratory Pattern Blood Pressure 136/76 H 156/79 H Blood Pressure Mean 96 104 Blood Pressure Source Blood Pressure Position Blood Pressure Location Pulse Ox 94 97 97 Oxygen Delivery Method Room Air Nasal Cannula Oxygen Flow Rate (L/min) 2 05/14/24 20:30 05/14/24 20:30 05/14/24 20:45 Temperature Temperature Source Pulse Rate 77 81 Respiratory Rate 29 H 30 H Respiratory Effort Respiratory Depth Respiratory Pattern Blood Pressure 156/79 H 156/79 H Blood Pressure Mean 101 101 Blood Pressure Source Blood Pressure Position Blood Pressure Location Pulse Ox 97 97 Oxygen Delivery Method Oxygen Flow Rate (L/min) 05/14/24 21:00 05/14/24 21:15 05/14/24 21:25 Temperature Temperature Source Pulse Rate 88 89 93 Respiratory Rate 29 H 26 H 21 H Respiratory Effort Respiratory Depth Respiratory Pattern Blood Pressure 138/76 H 102/80 Blood Pressure Mean 94 87 Blood Pressure Source Blood Pressure Position Blood Pressure Location Pulse Ox 98 100 98 Oxygen Delivery Method Nasal Cannula Oxygen Flow Rate (L/min) 2 05/14/24 21:30 05/14/24 21:45 05/14/24 22:00 Temperature Temperature Source Pulse Rate 94 88 100 Respiratory Rate 27 H 28 H 26 H Respiratory Effort Respiratory Depth Respiratory Pattern Blood Pressure 102/80 156/124 H Blood Pressure Mean 86 135 Blood Pressure Source Blood Pressure Position Blood Pressure Location Pulse Ox 100 99 97 Oxygen Delivery Method Oxygen Flow Rate (L/min) 05/14/24 22:15 05/14/24 22:30 05/14/24 22:49 Temperature Temperature Source Pulse Rate 99 99 Respiratory Rate 24 H 20 H Respiratory Effort Respiratory Depth Respiratory Pattern Blood Pressure 130/72 H Blood Pressure Mean 83 Blood Pressure Source Blood Pressure Position Blood Pressure Location Pulse Ox 98 100 100 Oxygen Delivery Method Nasal Cannula Oxygen Flow Rate (L/min) 2 05/14/24 22:55 05/15/24 00:30 05/15/24 00:30 Temperature 99 F 98.3 F Temperature Source Temporal Pulse Rate 89 83 Respiratory Rate 19 H 18 Respiratory Effort Normal Non-Labored Respiratory Depth Normal Respiratory Pattern Normal Blood Pressure 131/84 H 124/82 H Blood Pressure Mean 99 96 Blood Pressure Source Monitor Blood Pressure Position Semi-Fowlers Blood Pressure Location Right Arm Pulse Ox 100 98 Oxygen Delivery Method Nasal Cannula Nasal Cannula Oxygen Flow Rate (L/min) 2 2 05/15/24 00:55 05/15/24 03:34 05/15/24 05:10 Temperature 98.3 F Temperature Source Temporal Pulse Rate 83 Respiratory Rate 18 Respiratory Effort Normal Non-Labored Non-Labored Respiratory Depth Respiratory Pattern Blood Pressure 124/82 H Blood Pressure Mean 96 Blood Pressure Source Blood Pressure Position Blood Pressure Location Pulse Ox 98 Oxygen Delivery Method Nasal Cannula Oxygen Flow Rate (L/min) 2 05/15/24 06:24 05/15/24 07:40 05/15/24 10:40 Temperature 97.4 F L 98.5 F Temperature Source Temporal Oral Pulse Rate 68 84 Respiratory Rate 17 18 Respiratory Effort Normal Non-Labored Respiratory Depth Normal Respiratory Pattern Normal Blood Pressure 122/81 H 126/79 H Blood Pressure Mean 94 94 Blood Pressure Source Monitor Monitor Blood Pressure Position Semi-Fowlers Semi-Fowlers Blood Pressure Location Right Arm Right Arm Pulse Ox 97 94 Oxygen Delivery Method Nasal Cannula Nasal Cannula Nasal Cannula Oxygen Flow Rate (L/min) 2 2 2 Weight Weight: 76.4 kg Body Mass Index (BMI) 22.8 EEG Results Procedure Details EEG Procedure Details: JOSE THOMPSON is a 58 year old M with a past medical history of , who presents for evaluation of Electroencephalogram on DATE at TIME Physical Exam Neuro Sensorium / Orientation: awake, alert, oriented to person, oriented to place and oriented to time Cranial Nerves: CN normal except as noted and CN VII (facial) Laterality: left (Slight left facial droop, able to overcome with activation) Speech: speech normal Gait (Neuro): unable to assess gait Sensory Exam: extremities light-touch: decreased (LT decreased on left side) Motor Exam: strength abnormal other (Right UE/LE antigravity. Left LUE/LE no movement) and muscle tone abnormal spastic: LUE and LLE Coordination: purvrf-[id number] test normal (on right) Lab / Micro Data 05/15/24 05:16 05/15/24 05:16 Labs: Laboratory Results - last 24 hr 05/14/24 20:10: WBC 8.5, RBC 4.21 L, Hgb 14.2, Hct 41.3, MCV 98.1 H, MCH 33.7 H, MCHC 34.4, RDW Std Deviation 42.8, RDW Coeff of [place] 11.9, Plt Count 184, MPV 10.2, Immature Gran % (Auto) 0.400, Neut % (Auto) 76.3 H, Lymph % (Auto) 13.3 L, [place] % (Auto) 8.0, Eos % (Auto) 1.5, Baso % (Auto) 0.5, Absolute Neuts (auto) 6.5, Absolute Lymphs (auto) 1.12, Nucleated RBC % 0, Sodium 140, Potassium 4.0, Chloride 108 H, Carbon Dioxide 27.0, Anion Gap 6, BUN 26 H, Creatinine 0.79, Estim Creat Clear Calc 110.51, Est GFR (MDRD) Af Amer 129, Est GFR (MDRD) Non-Af 106, BUN/Creatinine Ratio 32.9 H, Glucose 98, Calcium 8.8, Magnesium 2.0 05/15/24 05:16: WBC 8.2, RBC 3.83 L, Hgb 13.0, Hct 38.3 L, MCV 100.0 H, MCH 33.9 H, MCHC 33.9, RDW Std Deviation 43.1, RDW Coeff of [place] 11.9, Plt Count 169, MPV 9.5, Immature Gran % (Auto) 0.500, Neut % (Auto) 79.3 H, Lymph % (Auto) 11.0 L, [place] % (Auto) 8.5, Eos % (Auto) 0.5, Baso % (Auto) 0.2, Absolute Neuts (auto) 6.5, Absolute Lymphs (auto) 0.90, Nucleated RBC % 0, Sodium 141, Potassium 3.9, Chloride 110 H, Carbon Dioxide 26.0, Anion Gap 5, BUN 22 H, Creatinine 0.66 L, Estim Creat Clear Calc 130.23, Est GFR (MDRD) Af Amer 158, Est GFR (MDRD) Non-Af 131, BUN/Creatinine Ratio 33.3 H, Glucose 99, Calcium 8.5, Total Bilirubin 2.00 H, AST 16, ALT 20, Alkaline Phosphatase 80, Total Protein 6.3 L, Albumin 3.3, Globulin 3.0, Albumin/Globulin Ratio 1.1, TSH 0.615 Rhythm Strip Rhythm Strip: Sinus Rhythm Rate: 80 Ectopy: None Imaging Radiology Impression Brain CT 05/14/24 20:54 IMPRESSION: Encephalomalacia in the right cerebral hemisphere likely due to old infarct or prior trauma. No evidence for acute intracranial bleed Electronically Signed: Dominick Clemente MD at 21:32 EDT , Hip X-Ray 05/15/24 01:10 IMPRESSION: No acute fracture seen. Unchanged alignment of the left hip resurfacing arthroplasty. Electronically Signed: Jc Farias MD at 2:10 EDT , Active Medications Active Medications Active Medications: Current Medications Generic Name Dose Route Start Last Admin Trade Name Freq PRN Reason Stop Dose Admin Acetaminophen 650 mg 05/15/24 00:07 Acetaminophen 325 Mg Tablet PO Q4H PRN PRN Fever, pain 1-05/07 Al Hydroxide/Mg Hydroxide 30 ml 05/15/24 00:07 Mag Hydrox/Al Hydrox/Simeth 30 Ml Udc PO Q6H PRN PRN Gastric Burning Albuterol Sulfate 2.5 mg 05/15/24 00:07 Albuterol 2.5 Mg/3 Ml Vial.Neb. INHALATION Q2H PRN PRN Dyspnea, wheezing Aspirin 81 mg 05/15/24 10:00 05/15/24 10:30 Aspirin E.C. 81 Mg Tablet PO 81 mg DAILY ENIO Administration Fluoxetine HCl 40 mg 05/15/24 10:00 05/15/24 10:30 Fluoxetine Hcl 40 Mg Capsule PO 40 mg DAILY ENIO Administration Gabapentin 300 mg 05/15/24 10:00 05/15/24 10:30 Gabapentin 300 Mg Capsule PO 300 mg DAILY ENIO Administration Guaifenesin 20 ml 05/15/24 00:07 Guaifenesin 10 Ml Udc (200mg/10ml) PO Q4H PRN PRN COUGH Hydralazine HCl 10 mg 05/15/24 00:07 Hydralazine 20 Mg/Ml Vial IV Q4H PRN PRN SBP > 160 Protocol Sodium Chloride 100 mls @ 15 mls/hr 05/15/24 00:43 IV .Q6H40M PRN Saline Flush Sodium Chloride 100 mls @ 15 mls/hr 05/15/24 00:43 IV .Q6H40M PRN Additional IVPB Infusion Levetiracetam 1,000 mg 05/15/24 10:00 05/15/24 10:30 Levetiracetam 1,000 Mg Tablet PO 1,000 mg BID ENIO Administration Lisinopril 20 mg 05/15/24 10:00 05/15/24 10:29 Lisinopril 20 Mg Tablet PO 20 mg DAILY ENIO Administration Protocol Loratadine 10 mg 05/15/24 10:00 05/15/24 10:29 Loratadine 10 Mg Tablet PO 10 mg DAILY ENIO Administration Lorazepam 2 mg 05/15/24 00:07 Lorazepam 2 Mg/Ml Syringe IV PRN PRN Seizure, notify MD of use Melatonin 3 mg 05/15/24 00:07 Melatonin 3 Mg Tablet PO QHS PRN PRN INSOMNIA Non-Formulary Medication 150 - 160 mcg 05/15/24 10:00 05/15/24 10:30 Baclofen MC 150 mcg DAILY ENIO Administration Nutritional Formula (Lactose Free) 120 ml 05/15/24 12:00 Ensure Plus High Protein 120 Ml Liquid PO TIDCM ENIO Nystatin 1 applic 05/15/24 02:03 05/15/24 06:20 Nystatin Ointment TOPICAL 1 applic TID ENIO Administration Protocol Nystatin 1 applic 05/15/24 06:00 05/15/24 06:19 Nystatin Powder 15gm Bottle TOPICAL 1 applic TID ENIO Administration Protocol Oxycodone HCl 5 mg 05/15/24 00:07 Oxycodone 5 Mg Tablet PO Q4H PRN PRN Pain Score 4-10 Polyethylene Glycol 17 gm 05/15/24 00:07 Polyethylene Glycol 3350 17 Gm Packet PO DAILY PRN PRN Constipation Prochlorperazine Edisylate 5 mg 05/15/24 00:07 Prochlorperazine 10 Mg/2 Ml Vial IV Q4H PRN PRN Breakthrough Nausea/Vomiting Senna/Docusate Sodium 2 tablet 05/15/24 00:07 Senna/Docusate Sodium 1 Tablet PO BID PRN PRN Constipation Sodium Chloride 10 - 40 ml 05/15/24 00:43 0.9% Saline Lock 10 Ml Syringe IV UD PRN SALINE FLUSH Tizanidine HCl 2 mg 05/15/24 10:00 05/15/24 10:29 Tizanidine Hcl 2 Mg Tablet PO 2 mg BID ENIO Administration
--- NOTE | 2024-05-15 13:13 | PCM.DC.SUM ---
Providers Date of Admission: 05/14/24 Date of Discharge: 05/15/24 Primary Care Physician: Dr. Fredy Beth MD Consultations 05/15/24 00:07 Consult: Tele-Neurology Routine Consulting Provider: [facility] Reason for Consult: breakthrough seizure EMERGENT Consult: No MD Notified: Yes Date Notified: 05/15/24 Time Notified: 01:07 Method of Notification: Answering Service Method of Consult:: Telemedicine Nursing Unit Staff Notify [facility] of Tele-Neurology Consult: Yes Reason For Visit: BREAKTHROUGH SEIZURE Diagnosis Discharge Diagnosis (1) Breakthrough seizure: Status: Acute Code(s): G40.919 - Epilepsy, unspecified, intractable, without status epilepticus Plan Patient is a 58-year-old gentleman with history of seizure disorder admitted with breakthrough seizure 1. Seizure disorder with breakthrough seizure ? Patient admitted to a monitored bed, instituted seizure precautions. Patient was loaded with Keppra and consult placed to [facility] tel[facility]urology ? [facility]. This was discussed with patient's . Decision was made to discharge patient home 2. Recent fall with left clavicle and proximal humeral fracture ? Patient currently being managed with immobilization and pain meds 3. History of right MCA CVA with hemorrhagic conversion ? Patient managed with craniectomy. Patient has residual chronic dysphagia and left-sided hemiparesis 4. History of aortic dissection ? Status post repair on 10/11/2027 5. Mild intermittent asthma ? Not in exacerbation aerosol treatment as needed 7. Chronic pain syndrome ? Patient has a pain pump. Patient pain pump apparently has to be drained before any MRI and later refilled. With patient seizure not being new onset MRI ordered on admission was discontinued pending eval by teleneuro 8. Hypertension ? Blood pressure controlled, home medications continued with dose adjustment as needed 9. Depression with anxiety ? Patient is on fluoxetine 10. DVT prophylaxis bilateral SCDs Time spent in the patient's overall evaluation,decision-making process, review of diagnostic data, adjustment of management, discussion with other providers, nursing nursing and ancillary staff involved in patient's care documentation, 36 minutes Medications at Discharge Home Medications albuterol sulfate 90 mcg/actuation aerosol inhaler 2 puff inhalation Q4H PRN PRN Asthma 06/02/18 polyethylene glycol 3350 17 gram oral powder packet 17 gm PO DAILY PRN PRN Constipation 06/02/18 albuterol sulfate 2.5 mg/3 mL (0.083 %) solution for nebulization 2.5 mg inhalation .q 6H PRN Wheezing Or Cough 08/04/18 baclofen 2,000 mcg/mL intrathecal solution 150 - 160 mcg IT DAILY pain 10/07/18 acetaminophen 500 mg tablet 500 mg PO Q4H PRN PRN Pain #20 tabs 10/10/18 levetiracetam 1,000 mg tablet 1,000 mg PO BID seizure 11/05/18 gabapentin 300 mg capsule 300 mg PO DAILY cva 09/14/19 tizanidine 2 mg capsule 2 mg PO BID pain 09/14/19 cetirizine 10 mg tablet (Zyrtec) 10 mg PO DAILY allergies 01/22/23 fluoxetine 40 mg capsule 40 mg PO DAILY depression 01/22/23 [id number]-[id number]-wbkofc tablet (Multivitamin 50 Plus tablet) 1 tab PO DAILY vitamins 01/22/23 lisinopril 20 mg tablet 20 mg PO DAILY #30 tabs 01/24/23 fluticasone propionate 110 mcg/actuation HFA aerosol inhaler 2 puff inhalation PRN sob 05/14/24 levetiracetam 250 mg tablet (Keppra) 250 mg PO BID #120 tabs 05/15/24 Physical Exam Narrative GENERAL: Cooperative HEENT: Atraumatic; normocephalic EYES; Anicteric, Normal Conjunctiva NECK; supple, normal thyroid, RESPIRATORY: Diminished to auscultation CARDIOVASCULAR: Regular S1 S2, GI: soft, normoactive bowel sounds, : No Renal angle tenderness; EXTREMITIES: No edema, no clubbing, MUSCULOSKELETAL: Left upper extremity immobilized NEURO: Awake; left-sided hemiparesis SKIN: No Rash PSYCH; Flat affect Weight / BMI Weight Weight: 76.4 kg Body Mass Index (BMI) 22.8 ABG / Lab / Microbiology Data 05/15/24 05:16 05/15/24 05:16 Laboratory: Laboratory Results - last 24 hr 05/14/24 20:10: WBC 8.5, RBC 4.21 L, Hgb 14.2, Hct 41.3, MCV 98.1 H, MCH 33.7 H, MCHC 34.4, RDW Std Deviation 42.8, RDW Coeff of Bibiana 11.9, Plt Count 184, MPV 10.2, Immature Gran % (Auto) 0.400, Neut % (Auto) 76.3 H, Lymph % (Auto) 13.3 L, [place] % (Auto) 8.0, Eos % (Auto) 1.5, Baso % (Auto) 0.5, Absolute Neuts (auto) 6.5, Absolute Lymphs (auto) 1.12, Nucleated RBC % 0, Sodium 140, Potassium 4.0, Chloride 108 H, Carbon Dioxide 27.0, Anion Gap 6, BUN 26 H, Creatinine 0.79, Estim Creat Clear Calc 110.51, Est GFR (MDRD) Af Amer 129, Est GFR (MDRD) Non-Af 106, BUN/Creatinine Ratio 32.9 H, Glucose 98, Calcium 8.8, Magnesium 2.0 05/15/24 05:16: WBC 8.2, RBC 3.83 L, Hgb 13.0, Hct 38.3 L, MCV 100.0 H, MCH 33.9 H, MCHC 33.9, RDW Std Deviation 43.1, RDW Coeff of [place] 11.9, Plt Count 169, MPV 9.5, Immature Gran % (Auto) 0.500, Neut % (Auto) 79.3 H, Lymph % (Auto) 11.0 L, [place] % (Auto) 8.5, Eos % (Auto) 0.5, Baso % (Auto) 0.2, Absolute Neuts (auto) 6.5, Absolute Lymphs (auto) 0.90, Nucleated RBC % 0, Sodium 141, Potassium 3.9, Chloride 110 H, Carbon Dioxide 26.0, Anion Gap 5, BUN 22 H, Creatinine 0.66 L, Estim Creat Clear Calc 130.23, Est GFR (MDRD) Af Amer 158, Est GFR (MDRD) Non-Af 131, BUN/Creatinine Ratio 33.3 H, Glucose 99, Calcium 8.5, Total Bilirubin 2.00 H, AST 16, ALT 20, Alkaline Phosphatase 80, Total Protein 6.3 L, Albumin 3.3, Globulin 3.0, Albumin/Globulin Ratio 1.1, TSH 0.615 Radiography Diagnostic Testing: Radiology Impression Brain CT 05/14/24 20:54 IMPRESSION: Encephalomalacia in the right cerebral hemisphere likely due to old infarct or prior trauma. No evidence for acute intracranial bleed Electronically Signed: Dominick Clemente MD at 21:32 EDT , Hip X-Ray 05/15/24 01:10 IMPRESSION: No acute fracture seen. Unchanged alignment of the left hip resurfacing arthroplasty. Electronically Signed: Jc Farias MD at 2:10 EDT , D/C Instructions Discharge Diet: No restrictions Discharge Activity: May Not Drive Call your doctor if you observe: Fever of 101 or Higher, Shortness of breath, Fainting spells and Chest pain Meaningful Use Info Meaningful Use Meaningful Use Diagnoses (Choose all that apply): None applicable Ischemic Stroke Statin Dosing Therapy Reference: STATIN DOSE THERAPY REFERENCE: * Patients > 75 years receive moderate or high dose statin therapy. * Patients 75 years or YOUNGER should receive HIGH intensity statin dose unless contraindicated. You will be required to document reason for non-treatment if statin daily dose does not meet guidelines. HIGH DOSE STATIN THERAPY DAILY Atorvastatin > than or = to 40 mg Rosuvastatin > than or = to 20 mg Amlodipine + Atorvastatin > than or = to 2.5/40 mg Ezetimibe + Simvastatin 10/80 mg Simvastatin 80mg Discharge Plan Admission Admit Date/Time: 05/14/24 22:34 Attending Provider: Jim Keenan Primary Care Provider: Fredy Beth Consulting Providers: Sandra Churchill; Rut Lua; Heidi Montero; Casey Chambers; Eloy De La Vega; Chintan Saleh; NAVDEEP SALAZAR; Ermelinda Baeza; Trisha Alvarenga; Devon Jimenez; Kimi Mejía; Charlie Raymundo; Anabella Lehman; Lynda Lentz; Ji Blevins; Mary Redman; Rene Gandhi; Minesh Kirby; aCsey Garcias; Mary Almaraz; Kelly Julio; Gustabo Oreilly; Soniya Coronado; Huan Mrieles; Eufemia Moreno; Kumar Mansfield; Tonya Reynolds Discharge Orders/Prescriptions Prescriptions: New levetiracetam [Keppra] 250 mg tablet 250 mg PO BID Qty: 120 0RF Continued albuterol sulfate 2.5 mg /3 mL (0.083 %) solution for nebulization 2.5 mg INHALATION .q 6H PRN (Reason: Wheezing Or Cough) gabapentin 300 mg capsule 300 mg PO DAILY tizanidine 2 mg capsule 2 mg PO BID polyethylene glycol 3350 17 GM packet 17 gm PO DAILY PRN PRN (Reason: Constipation) albuterol sulfate 1 PUFF inhaler 2 puff inhalation Q4H PRN PRN (Reason: Asthma) baclofen 2,000 MCG/ML solution 150 - 160 mcg IT DAILY Patient Comments: pump acetaminophen 500 MG tablet 500 mg PO Q4H PRN PRN (Reason: Pain) Qty: 20 0RF levetiracetam 1,000 MG tablet 1,000 mg PO BID fluoxetine 40 mg capsule 40 mg PO DAILY cetirizine [Zyrtec] 10 mg Tablet 10 mg PO DAILY Multivitamin 50 Plus Tablet 1 tab PO DAILY lisinopril 20 mg Tablet 20 mg PO DAILY Qty: 30 0RF fluticasone propionate 110 mcg/actuation HFA aerosol inhaler 2 puff inhalation PRN Referrals / Follow Up: Fredy Beth MD [Primary Care Provider] - Within 1 Week Disposition Disposition (needs filled in before D/C Order can be placed): Home, Self Care Charges/Coding Visit Charges Inpatient E&M: 71860 Disch Hosp >30min
--- NOTE | 2024-05-15 15:19 | CASEMGMT ---
Patient has order for discharge. RN CM in to discuss needs at discharge, at bedside. denies needs or help at discharge. States patient is close to baseline. denied further questions or concerns.
--- NOTE | 2024-05-15 15:28 | CHAPLAIN ---
Type of Pastoral Visit _x__ Initial Visit ___ Follow-up Visit ___ On-call Visit ___ General Patient Visit ___ Spiritual Assessment ___ Family Conference ___ Bereavement ___ Rapid Response ___ Code Blue ___ Other (describe below) Pastoral Care Referral From ___ Patient _x__ Family ___ Nurse ___ Physician ___ Foreclosure Specialist ___ [place] Hand ___ Other (describe below) Sacrament/Intervention ___ Active listening ___ Anointing ___ Islam ___ Bereavement ___ Communion ___ Sarah exploration ___ ___ Life review ___ Prayer ___ Reconciliation ___ Sacrament of Sick _x__ Supportive presence ___ Wedding ___ Other (describe below) Pastoral Comments patient has been seen before; entered room and pt is alert and asking to go home; spouse is with him; pt speaks with authority that he wants to go home; plan is for patient to be discharged today; 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
== END 2024-05-15 13:24 | disposition home or self-care (01) ==
LOC: ED 22:06 → PCU 22:46
PROVIDERS: Admitting Provider Family Medicine; Emergency Provider Emergency Medicine; PCP Family Medicine; Visit Provider Internal Medicine
DX: G40.919 Epilepsy, unspecified, intractable, without status epilepticus (principal); I69.354 Hemiplegia and hemiparesis following cerebral infarction affecting left non-dominant side; E78.5 Hyperlipidemia, unspecified; Z79.51 Long term (current) use of inhaled steroids; S42.002D Fracture of unspecified part of left clavicle, subsequent encounter for fracture with routine healing; I10 Essential (primary) hypertension; W01.0XXD Fall on same level from slipping, tripping and stumbling without subsequent striking against object, subsequent encounter; S42.202D Unspecified fracture of upper end of left humerus, subsequent encounter for fracture with routine healing; Z79.899 Other long term (current) drug therapy; F41.8 Other specified anxiety disorders; F17.290 Nicotine dependence, other tobacco product, uncomplicated; Z97.8 Presence of other specified devices; I69.391 Dysphagia following cerebral infarction; J45.22 Mild intermittent asthma with status asthmaticus; G89.4 Chronic pain syndrome
CPT/HCPCS: 36415; 70450; 73502; 80048; 80053; 83735; 84443; 85025; 93005; 95819; 96361; 96374; 97802; 99221; 99285; J7030; J7050; A4216; G0378

== ENCOUNTER 2024-10-01 10:00 | Outpatient (RCR) | payer OTHER, SELFPAY ==
--- NOTE | 2024-07-28 09:53 | HP.PTEVAL_ITS ---
Patient's Visit Information Visit Information Visit Information: JOSE THOMPSON is a 59 year old M referred to Physical Therapy by Dr. Fredy Beth MD with a diagnosis of CVA. Date of Evaluation: 07/28/24 Physical Therapist: Kayla Ojeda DPT Visit Plan Frequency: 2x /Week Duration: 4 Weeks Plan: First visit with son- give extensive HEP Then focus on functional goals, gait and balance Subjective Subjective: CVA in September 2017- last PT was in 2021. Left [facility]. He has been working out at home since then- he had another fall and the PCP sent them back to PT. The last fall was in April- went to ER- had seizures and had to call the squad and was hospitalized. 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 Normal day he gets up- he can shave by himself and bathe himself- helps him get out of bed- cooks food and helps him get dressed. He lifts weights with his arms- 20 mins- shoulders- biceps, triceps, shoulders. sit to stands. Then he is in a recliner for the day- son and grandson lives with them so he is not home by himself due to the seizures. He gets up/down out of the furniture by himself- all is elevated- toilet seat is elevated- grab bars. Stairs have double banisters- goes up/down by himself. Their house was built ADA. He has pain in the toes. He had botox 17 injections on July 14- he has Botox ever 12 weeks. It helps a lot. He also has a baclofen pump. Sleep: good. Goals: Get in/out of a car better. Walk one day without a cane. Goals: be more indep with getting in/out of bed- getting dressed. Objective Objective: Posture: forward head, rounded shoulders, increased kyphosis- can correct but does not maintain Gait: straight cane- severe external rotation of the hip, full knee extension, with foot facing fully to the left- can ambulate >150 feet without rest- step to pattern. Sit to Stand: required UE A- and verbal cues for foot placement ROM: L Ankle: DF: minus 10 degrees from neutral, LE: WFL Strength: Core: poor, Hip: 3+/5 throughout, Knee: Extn: 3+/5 Flexion: 2+/5, Ankle: DF: 2+/5 PF: 4/5 Balance/Special Test Scores Functional Gait Assessment Score: 9 % Disability: 70.0000 Lower Extremity Functional Score: 14 Goals Goal 1:: Patient will be I with HEP and progression Goal Time Frame: 6-8 Weeks Goal 2:: Patient will get up from floor using best pattern mod indep to ease caregiver assistance. Goal Time Frame: 6-8 Weeks Goal 3:: Patient will ambulate >300 feet with LRD with new AFO Goal Time Frame: 6-8 Weeks Goal 4:: Patient will roll left and right mod I to ease caregiver assistance Goal Time Frame: 6-8 Weeks Rehabilitation Potential Physical Therapy Diagnosis: Patient presents with hypomobility- he has increased tone on the left, he has decreased LE strength and core strength/stabilization, flex, proprioception and muscular endurance leading to abnormal gait pattern and decreased ability to perform ADL's s/p CVA. Rehabilitation Potential: Fair Anticipated Interventions Patient/Client Instruction: Educate patient on: Benefits of Fitness Program Therapeutic Exercise to Include: Strength training, Endurance training, Agility training, Body mechanics, Postural training, Gait and locomotor training, Neuromotor development, Dynamic Lumbar Stabilization and Scapular Strength/Stabilization For the Purpose of:: To improve muscle performance and motor function Text: Thank you for the opportunity to evaluate your patient. For Medicare and Medicare HMO plans, please review the plan of care and approve it. It will need to be FAXED BACK to us at [phone] for Medicare purposes. For Medicare only, by signing this I certify the plan of care. Please let me know if there are questions or concerns regarding this plan of care. Physician Signature: Date:
--- NOTE | 2024-10-01 08:48 | HP.PTREVAL_ITS ---
Re-Evaluation Intro: Dr. Fredy Beth MD, It has been my pleasure to treat JOSE THOMPSON over the last 14 visits for CVA. Please see the progress note below for an update on the physical therapy plan of care! Subjective Subjective: Pt. reports overall doing okay. He walks back to PT this date. Pt. reports no pain, but reports he is still having trouble with walking. Objective Objective/Function: bed mobility. Pt. was able to complete with SBA. He was able to roll form side to side, but needed increased time to complete. TU:08sec to complete with SPC and CGA. 30sec sit to stand test with use of RUE 2 difficulty to come to full standing GAIT: pt. was able to ambulate 289feet with SPC. Pt. has step to pattern with difficulty advancing LLE. Pt. tends to advance with L leg from hip only. L hip in ER positioning. Pt. tends to not trust his LLE and leans heavily to R side. Maintains R knee flexed positioning. POSTURE: Pt. tends to fish machine feeder R latera lean positioning. floor transfer: He was able to get onto R knee, but very stiff through his L side limited ability to get his leg underneath him. Pt. was able to complete with modA and heavy use of UE on table. He is limited secondary to his LLE con tracture/tone. Pt. does have a limited number of visits. I talked to him about reaching out to a personal service representative to work in the gym on strengthening of his legs and core. Pt. reports being willing to do this. I would like him to save some of his visits, in case something would happen and need them at a later date this year. Pt. to talk this over with his to make sure. Plan Plan Plan: Pt. to be DC from PT pending talking the plan over with his . I would like him to try and take some of the exercises and complete on his own. I also mentioned seeing a personal service representative that can continue with strengthening in gym setting. Balance/Gait/Functional tests Balance/Special Test Scores Functional Gait Assessment Score: 9 % Disability: 70.0000 Lower Extremity Functional Score: 14 Goals Goals Goal 1:: Patient will be I with HEP and progression Goal Time Frame: 6-8 Weeks Goal Progress: Goal Met Goal 2:: Patient will get up from floor using best pattern mod indep to ease caregiver assistance. Goal Time Frame: 6-8 Weeks Goal Progress: Progressing Goal 3:: Patient will ambulate >300 feet with LRD with new AFO Goal Time Frame: 6-8 Weeks Goal Progress: Progressing Goal 4:: Patient will roll left and right mod I to ease caregiver assistance Goal Time Frame: 6-8 Weeks Goal Progress: Goal Met Anticipated Interventions Anticipated Interventions Patient/Client Instruction: Educate patient on: Benefits of Fitness Program Therapeutic Exercise to Include: Strength training, Endurance training, Agility training, Body mechanics, Postural training, Gait and locomotor training, Neuromotor development, Dynamic Lumbar Stabilization and Scapular Strength/Stabilization For the Purpose of:: To improve muscle performance and motor function Re-Evaluation Ending Re-evaluation ending: Please do not hesitate to contact me at [phone] by phone or if you have questions or concerns regarding this new plan of care! Sincerely, Saulo Omer DPT
== END 2024-10-01 19:00 | disposition home or self-care (01) ==
LOC: PT 10:00
PROVIDERS: PCP Family Medicine; Referring Provider Family Medicine; Visit Provider Family Medicine
DX: I69.30 Unspecified sequelae of cerebral infarction (principal); G81.14 Spastic hemiplegia affecting left nondominant side
CPT/HCPCS: 97110; 97116; 97162; 97530